=== PATIENT | female | born 1955 | race African-American/Black ===

== ENCOUNTER 2018-08-29 11:06 | Day surgery (SDC) | payer OTHER ==
[2018-08-24 12:45] VITALS: BMI 26.6
[2018-08-29] MEDS ORDERED: LIDOCAINE HCL/PF 2% SDV 5ML VIAL ONE ×2 (13:04→13:35)
[2018-08-29] MEDS ORDERED: fentaNYL CITRATE 250 MCG/5 ML VIAL ONE (13:04)
[2018-08-29] MEDS ORDERED: PROPOFOL 20 ML ONE (13:04)
[2018-08-29] MEDS ORDERED: ROCURONIUM BROMIDE 50 MG/5 ML VIAL ONE (13:05)
[2018-08-29] MEDS ORDERED: MIDAZOLAM HCL 2 MG/2 ML SINGLE DOSE VIAL ONE (13:05)
[2018-08-29] MEDS ORDERED: ePHEDrine SULFATE 50 MG/1 ML AMPULE ONE (14:05)
[2018-08-29] MEDS ORDERED: ONDANSETRON 4 MG/2 ML VIAL ONE (14:11)
[2018-08-29] MEDS ORDERED: oxyCODONE HCL 5 MG TABLET PO PRN (14:47)
[2018-08-29] MEDS ORDERED: LACTATED RINGERS SOLUTION 1,000 ML IV SCH (15:00)
[2018-08-29 15:44] VITALS: TEMP 97.5
[2018-08-29 18:32] VITALS: BP 114/67; PULSE 102
--- NOTE | 2018-08-29 21:02 | OP ---
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 POSTOPERATIVE DIAGNOSIS: Chronic wound, left proximal thigh, from a failed previous total hip arthroplasty complicated by recurrent infection, recurrent dislocation, and recurrent heterotopic ossification. OPERATION PERFORMED: Incision and drainage with debridement of soft tissue, bone, as well as insertion of wound VAC. PROCEDURE: The patient was correctly identified, brought in the operating room, placed in the lateral decubitus position, left side up. The wound was sealed and the original wound VAC which had been performed at [facility] repeatedly was now removed. This had not been done for about 2-1/2 to 3 weeks and revealed the presence of significant exudate and foul-smelling material. Cultures were taken for sensitivity. The wound was thoroughly lavaged with 5 L of saline. The tissues were washed with Betadine scrub to get rid of biofilm and a repeat 5 L washout performed. Once this had been performed, a wound VAC was inserted and the wound VAC was sealed appropriately and working well. The patient was extricated out of the operating room. Wound VAC change will be performed in the near term and planned accordingly. Albert Moya MD [id number]
== END 2018-08-29 18:30 | disposition home or self-care (01) ==
LOC: FASU 11:06
PROVIDERS: ATTEND Orthopaedic Surgery Orthopaedic Surgery of the Spine
PROC: 2W0PX6Z Change Pressure Dressing on Left Upper Leg (ICD-10-PCS; principal; 2018-08-29 14:00)
DX: L76.82 Other postprocedural complications of skin and subcutaneous tissue (principal); S71.102A Unspecified open wound, left thigh, initial encounter; Y83.8 Other surgical procedures as the cause of abnormal reaction of the patient, or of later complication, without mention of misadventure at the time of the procedure; Y92.9 Unspecified place or not applicable; Y93.9 Activity, unspecified
CPT/HCPCS: 87070; 87186; 87205; 94760

== ENCOUNTER 2018-09-12 10:20 | Day surgery (SDC) | payer OTHER ==
[2018-09-12 11:15] VITALS: BMI 26.6
[2018-09-12] MEDS ORDERED: MIDAZOLAM HCL 2 MG/2 ML SINGLE DOSE VIAL ONE (13:33)
[2018-09-12] MEDS ORDERED: PROPOFOL 20 ML ONE (13:33)
[2018-09-12] MEDS ORDERED: LIDOCAINE HCL/PF 2% SDV 5ML VIAL ONE (13:33)
[2018-09-12] MEDS ORDERED: ROCURONIUM BROMIDE 50 MG/5 ML VIAL ONE (13:33)
[2018-09-12] MEDS ORDERED: ONDANSETRON 4 MG/2 ML VIAL ONE (13:47)
[2018-09-12] MEDS ORDERED: DEXAMETHASONE SOD PHOSPHATE 4 MG/1 ML VIAL ONE (13:47)
[2018-09-12] MEDS ORDERED: GLYCOPYRROLATE 0.2 MG/1 ML VIAL ONE (14:12)
[2018-09-12] MEDS ORDERED: NEOSTIGMINE METHYLSULFATE 0.5 MG/ML - 10 ML MDV ONE (14:12)
[2018-09-12] MEDS ORDERED: oxyCODONE HCL 5 MG TABLET PO PRN (14:44)
[2018-09-12] MEDS ORDERED: ONDANSETRON 4 MG/2 ML VIAL IVPUSH PRN (14:44)
[2018-09-12] MEDS ORDERED: PROMETHAZINE HCL 25 MG/1 ML VIAL IVPB PRN (14:44)
[2018-09-12] MEDS ORDERED: LACTATED RINGERS SOLUTION 1,000 ML IV SCH (14:45)
[2018-09-12 18:09] VITALS: PULSE 81
[2018-09-12 18:11] VITALS: BP 115/81; TEMP 98
--- NOTE | 2018-10-02 09:18 | OP ---
DATE OF OPERATION: 09/12/2019 SURGEON: Albert Moya MD PREOPERATIVE DIAGNOSIS: Septic left proximal lateral thigh wound with wound VAC in situ. POSTOPERATIVE DIAGNOSIS: Septic left proximal lateral thigh wound with wound VAC in situ. OPERATION PERFORMED: 1. Washout, debridement of soft tissue. 2. Insertion of wound VAC. ANESTHESIA: General. PROCEDURE: Patient correctly identified. Brought in the operating room. Patient was placed in the lateral decubitus position left side up. Intubation by Anesthesia had been performed. The left lower extremity was prepped, after removal of the sticky, adherent dressings and the wound VAC. A left free drape employed. The skin was cleansed with Betadine scrub solution, wiped off with alcohol, DuraPrep applied. The wound was thoroughly lavaged. Cultures were taken for culture and sensitivity. A 5-liter washout was performed. The wounds were thoroughly lavaged with Betadine scrub to cleanse bioform. Once the lavage had been completed and the tissues appeared normal and healthy, a repeat wound VAC was inserted for negative-suction wound VAC management. The wound was sealed with the appropriate stick-on dressings. Patient extricated from the operating room with no problems and the wound VAC working well. MD OSVALDO Oconnor/[id number]
== END 2018-09-12 18:11 | disposition home or self-care (01) ==
LOC: FASU 10:20
PROVIDERS: ATTEND Orthopaedic Surgery Orthopaedic Surgery of the Spine
PROC: 2W1MX6Z Compression of Left Lower Extremity using Pressure Dressing (ICD-10-PCS; principal; 2018-09-12 14:00)
DX: T81.49XA Infection following a procedure, other surgical site, initial encounter (principal); Y83.8 Other surgical procedures as the cause of abnormal reaction of the patient, or of later complication, without mention of misadventure at the time of the procedure; Y92.9 Unspecified place or not applicable
CPT/HCPCS: 87070; 87186; 87205; 94760

== ENCOUNTER 2018-10-05 12:40 | Day surgery (SDC) | payer OTHER ==
[2018-10-04 11:46] VITALS: BMI 27.4
[~2018-10-05 12:40] MED LIST: ceFAZolin SODIUM 1 GM VIAL IVPB ONE
[2018-10-05] MEDS ORDERED: SUCCINYLCHOLINE CHLORIDE 200 MG/10 ML VIAL ONE (14:21)
[2018-10-05] MEDS ORDERED: PROPOFOL 20 ML ONE (14:21)
[2018-10-05] MEDS ORDERED: MIDAZOLAM HCL 2 MG/2 ML SINGLE DOSE VIAL ONE (14:21)
[2018-10-05] MEDS ORDERED: ROCURONIUM BROMIDE 50 MG/5 ML VIAL ONE (14:36)
[2018-10-05] MEDS ORDERED: PHENYLEPHRINE HCL 10 MG/1 ML SINGLE DOSE VIAL ONE (15:12)
[2018-10-05] MEDS ORDERED: diazePAM 5 MG TABLET PO PRN (15:46)
[2018-10-05] MEDS ORDERED: PATIENT'S OWN MEDICATION (NON-FORMULARY) (Oxycodone Hcl [Oxycodone Hcl] 30 MG) PO PRN (15:50)
[2018-10-05] MEDS ORDERED: oxyCODONE HCL 5 MG TABLET PO PRN ×2 (16:51)
[2018-10-05] MEDS ORDERED: ONDANSETRON 4 MG/2 ML VIAL IVPUSH PRN (16:51)
[2018-10-05] MEDS ORDERED: PROMETHAZINE HCL 25 MG/1 ML VIAL IVPUSH PRN (16:51)
[2018-10-05 17:13] VITALS: TEMP 97.4
[2018-10-05 17:21] VITALS: BP 120/80; PULSE 85
[2018-10-05] MEDS ORDERED: DOXYCYCLINE HYCLATE 100 MG CAPSULE PO SCH (18:00)
[2018-10-05] MEDS ORDERED: OXYBUTYNIN CHLORIDE 5 MG TABLET PO SCH (22:00)
[2018-10-05] MEDS ORDERED: DULoxetine HCL 30 MG CAPSULE.DR (FP) PO SCH (22:00)
[2018-10-05] MEDS ORDERED: PREGABALIN 100 MG CAPSULE PO SCH (22:00)
[2018-10-05] MEDS ORDERED: oxyCODONE HCL 80 MG SUSTAINED ACTING TABLET PO SCH (22:00)
--- NOTE | 2018-10-06 07:50 | OP ---
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 OPERATION PERFORMED: Removal of old sponge, incision, drainage, washout of tissues, wound vacuum-assisted closure application. ANESTHESIA: General. OPERATION IN DETAIL: The patient was correctly identified, brought into the operating room left side up in a lateral decubitus position. Left lower extremity was free draped. The skin was cleansed with Betadine scrub solution, wiped with alcohol, DuraPrep applied. The original sponges were all removed. Repeat culture sticks were taken, sent for culture and sensitivity. A 5-L washout was performed of the soft tissue bed. The tissues were then cleansed with Betadine scrub to remove biofilm extensively throughout. A new wound VAC applied. So, the suction device was working well by the time the patient was turned supine and extricated out of the operating room. The appearance of the tissues clearly indicate much more amenable to delayed primary closure, which is hopefully going to occur in the next 1 or 2, possibly 3 operating sessions on this. The aim is to achieve wound closure and allow the wound closure to consolidate and then go ahead with reconstructive surgery appropriately. MD OSVALDO Oconnor/[id number]
[2018-10-06] MEDS ORDERED: PANTOPRAZOLE 40 MG TABLET (FP) PO SCH (10:00)
[2018-10-06] MEDS ORDERED: ASPIRIN 325 MG ENTERIC COATED TABLET (FP) PO SCH (10:00)
[2018-10-06] MEDS ORDERED: FLUCONAZOLE 100 MG TABLET (UD) PO SCH (10:00)
[2018-10-06] MEDS ORDERED: LISINOPRIL 10 MG TABLET (FP) PO SCH (10:00)
== END 2018-10-05 17:21 | disposition home or self-care (01) ==
LOC: FASU 12:40
PROVIDERS: ATTEND Orthopaedic Surgery Orthopaedic Surgery of the Spine
PROC: 2W0MX6Z Change Pressure Dressing on Left Lower Extremity (ICD-10-PCS; principal; 2018-10-05 14:30)
DX: T81.49XD Infection following a procedure, other surgical site, subsequent encounter (principal); Z48.01 Encounter for change or removal of surgical wound dressing; Y83.8 Other surgical procedures as the cause of abnormal reaction of the patient, or of later complication, without mention of misadventure at the time of the procedure; Y92.9 Unspecified place or not applicable; L98.8 Other specified disorders of the skin and subcutaneous tissue
CPT/HCPCS: 87070; 87186; 87205; 94760

== ENCOUNTER 2018-10-08 15:44 | Day surgery (SDC) | payer OTHER | END 2018-10-08 21:59 | disposition home or self-care (01) | LOC: JASU-SURG 15:44 → J8W 21:08 → JASU-SURG 21:59 ==

== ENCOUNTER 2018-10-10 10:55 | Inpatient (IN) | payer OTHER ==
[2018-10-09 15:25] VITALS: BMI 27.4
[2018-10-10] MEDS ORDERED: MIDAZOLAM HCL 2 MG/2 ML SINGLE DOSE VIAL ONE (14:27)
[2018-10-10] MEDS ORDERED: PROPOFOL 20 ML ONE (14:27)
[2018-10-10] MEDS ORDERED: ONDANSETRON 4 MG/2 ML VIAL ONE (14:28)
[2018-10-10] MEDS ORDERED: DEXAMETHASONE SOD PHOSPHATE 4 MG/1 ML VIAL ONE (14:28)
[2018-10-10] MEDS ORDERED: LIDOCAINE HCL/PF 2% SDV 5ML VIAL ONE (14:28)
[2018-10-10] MEDS ORDERED: GENTAMICIN SO4 80 MG/2 ML VIAL ONE (15:47)
[2018-10-10] MEDS ORDERED: KETOROLAC TROMETHAMINE 30 MG/1 ML VIAL ONE (16:04)
--- NOTE | 2018-10-10 16:16 | PN ---
Progress Note (short form) - Note Progress Note: 63F s/p I&D LEFT hip wound POD #0. -Pain control. -DVT PPx: - Mechanical: SOUTH's, SCD's. - Chemical: ASA 325mg POD qD. -Incentive spirometry. -Post-op antibiotics x 24 hrs. -PT/OT/Rehab, OOB. -NWB LLE. -f/u post-op TOV. -Regular diet. -Resume home medications. -Care per primary medical hospitalist team. -OK to discharge home when medically stable. -Contact [facility] office to schedule next LEFT hip I&D: . Albert Moya MD (Orthopaedic Surgery).
[2018-10-10] MEDS ORDERED: BENZOIN/ALOE VERA/STORAX/TOLU 58 ML BOTTLE ONE (16:26)
[2018-10-10] MEDS ORDERED: VANCOMYCIN 1,000 MG VIAL (RESTRICTED TO ID ONLY) ONE (16:26)
[2018-10-10 17:06] LABS: BASO % 0.5 % (0-2.0); EOS % 2.3 % (0-4.5); HEMATOCRIT 23.1 % (32.4-45.2); HEMOGLOBIN 7.2 GM/dl (10.7-15.3); LYMPH % 9.9 % (8-40); MCHC 31.3 g/dl (32.0-36.0); MEAN CELL VOLUME 70.4 fl (80-96); MEAN PLT VOLUME 7.6 fl (7.5-11.1); MONO % 1.7 % (3.8-10.2); NEUT % 85.6 % (42.8-82.8); PLATELET COUNT 309 K/MM3 (134-434); RBC 3.28 M/mm3 (3.60-5.2); RDW 17.2 % (11.6-15.6)
[2018-10-10] MEDS ORDERED: ONDANSETRON 4 MG/2 ML VIAL IVPUSH PRN ×2 (17:21→17:24)
[2018-10-10] MEDS ORDERED: MAGNESIUM HYDROX 2400MG/30ML ORAL SUSPENSION 30 ML CUP PO PRN (17:24)
[2018-10-10] MEDS ORDERED: MAG HYDROX/AL HYDROX/SIMETH 30 ML UNIT-DOSE CUP PO PRN (17:24)
--- NOTE | 2018-10-10 17:24 | OP ---
Operative Note - Note: Operative Date: 10/10/18 Pre-Operative Diagnosis: Chronic left hip wound Operation: Left hip wound: 1. I&D. 2. Excision proliferation fibrous tissue. 3. Excision heterotopic ossification. 4. Complex wound closure (>30cm) Post-Operative Diagnosis: Same as Pre-op Surgeon: Albert Moya Anesthesiologist/BEHAVIORAL SPECIALIST: Ethan Rollins Estimated Blood Loss (mls): 150 Drains & Tubes with Location: 1 x deep Duc Fluid Volume Replaced (mls): 500 (Crystalloid) Operative Report Dictated: Yes
[2018-10-10] MEDS ORDERED: LACTATED RINGERS SOLUTION 1,000 ML IV SCH (17:30)
[2018-10-10] MEDS ORDERED: diazePAM 5 MG TABLET PO PRN (19:58)
[2018-10-10] MEDS: LISINOPRIL 10 MG TABLET (FP) PO SCH (20:06)
[2018-10-10] MEDS: DOXYCYCLINE HYCLATE 100 MG CAPSULE PO SCH (20:40)
[2018-10-10] MEDS: PANTOPRAZOLE 40 MG TABLET (FP) PO SCH (20:40)
[2018-10-10] MEDS: FLUCONAZOLE 100 MG TABLET (UD) PO SCH (20:41)
[2018-10-10] MEDS: DULoxetine HCL 30 MG CAPSULE.DR (FP) PO SCH (22:12)
[2018-10-10] MEDS: SENNOSIDES/DOCUSATE COMBO (SENNA PLUS) TABLET (UD) PO SCH (22:12)
[2018-10-10] MEDS: ASPIRIN 81 MG CHEWABLE TABLETS PO SCH (22:12)
[2018-10-10] MEDS: PREGABALIN 50 MG CAPSULE PO SCH (22:12)
[2018-10-10] MEDS: oxyCODONE HCL 40 MG SUSTAINED ACTING TABLET PO SCH (22:13)
[2018-10-10] MEDS: CEFAZOLIN 1 GM/D5W 1 GM/50 ML BAG IVPB SCH (23:20)
[2018-10-10] MEDS: LACTATED RINGERS SOLUTION 1,000 ML IV SCH (23:35)
[2018-10-10] MEDS: oxyCODONE HCL 5 MG TABLET PO PRN (23:35)
[2018-10-10 23:48] LABS: ADD RBC MORPHOLOGY YES; PLATELET ESTIMATE ADEQUATE
[2018-10-10 23:49] LABS: ANISOCYTOSIS 1+; OVALOCYTE 1+
[2018-10-11] MEDS: PREGABALIN 50 MG CAPSULE PO SCH ×3 (06:18→22:12)
[2018-10-11] MEDS: oxyCODONE HCL 40 MG SUSTAINED ACTING TABLET PO SCH ×3 (06:18→22:11)
[2018-10-11] MEDS: oxyCODONE HCL 5 MG TABLET PO PRN ×3 (06:23→22:22)
[2018-10-11] MEDS: CEFAZOLIN 1 GM/D5W 1 GM/50 ML BAG IVPB SCH (06:30)
--- NOTE | 2018-10-11 06:43 | OP ---
DATE OF OPERATION: 10/10/2018 SURGEON: Albert Moya MD [employer] SUPERVISOR: No orthodontist assistant. PREOPERATIVE DIAGNOSIS: Chronic septic wound with heterotopic ossification with wound vacuum-assisted closure in situ. POSTOPERATIVE DIAGNOSIS: Chronic septic wound with heterotopic ossification with wound vacuum-assisted closure in situ. OPERATION PERFORMED: 1. Extensive debridement of soft tissue, skin, and bone. 2. Resection of heterotopic ossification. 3. Extensive irrigation of soft tissues. 4. Complex wound closure with deep sutures and Lautenbach sutures, suturing PDS No. 1. ANESTHESIA: General. ANTIBIOTICS GIVEN: Kefzol 1 g, gentamicin 80 mg, and vancomycin 1 g placed in the wound. OPERATION IN DETAIL: The patient was correctly identified, brought into the operating room. The left proximal lateral thigh was cleansed with Betadine scrub solution, wiped with alcohol, and DuraPrep applied. The patient was placed in a lateral decubitus position. All prominent bony points were padded appropriately. A pillow was placed between the knees. The wound VAC was removed. The tissues were extensively irrigated with 5 L of saline and washed at the same time with Betadine scrub to rid the tissues and remaining endoprosthetic intramedullary device to remove all biofilm. Once this had been performed, the tissues appeared to be amenable to closure, that is a delayed primary closure. However, the villonodular nature of the growth of tissues necessitated extensive debridement of this tissue. Each nodular lesion was resected using Bovie to apply cautery and stop all bleeding. Extensive debridement with soft tissue was performed throughout. Multiple areas of heterotopic ossification were dissected out and all the tissues were sent to the lab for culture and sensitivity. A repeat intensive debridement of soft tissue, bone, and the skin edges were then resected extensively right down to the deep components of the wound to facilitate the biological healing of the delayed primary closure. Once the washouts had been all completed, deep sutures were applied. This was then followed with a Lautenbach suture, which encompasses skin, subcutaneous tissue, fascia, and muscle in 4 layers, and thereafter also interrupted No. 1 vertical mattress 2-0 nylon suture was utilized. This very complex wound we were able to close with a good primary closure. The Lautenbach sutures brought the tissues deep all together. A large 19-[place] Duc drain was inserted for drainage. A light dressing applied. Thereafter, patient tolerated the procedure well. Prior to the closure, a full gram of vancomycin was placed into the tissue bed extensively throughout. Plan for hip abduction brace and thereafter to follow with time to allow this wound to heal completely. Once healed, the plan will be to bolt onto the endoprosthetic intramedullary retained device, which this itself is preventing any intramedullary contamination with E. coli. This will enable to see the new endoprosthesis with a new-seated cup in the ileum appropriately. No other orders at this point. MD OSVALDO Oconnor/[id number] MTDD
[2018-10-11 07:54] LABS: HEMATOCRIT 28.2 % (32.4-45.2); HEMOGLOBIN 8.8 GM/dl (10.7-15.3); MCH 23.9 pg (25.7-33.7); MCHC 31.3 g/dl (32.0-36.0); MEAN CELL VOLUME 76.5 fl (80-96); MEAN PLT VOLUME 7.5 fl (7.5-11.1); PLATELET COUNT 286 K/MM3 (134-434); RBC 3.68 M/mm3 (3.60-5.2); RDW 19.5 % (11.6-15.6)
[2018-10-11 08:23] LABS: ANION GAP 6 MMOL/L (8-16); BLOOD UREA NITROGEN 19 mg/dl (7-18); CALCIUM 7.6 mg/dl (8.5-10); CHLORIDE 108 mmol/L (98-107); CO2 24 mmol/L (21-32); CREATININE 0.9 mg/dl (0.55-1.3); GLUCOSE,RANDOM 120 mg/dl (74-106); POTASSIUM 4.3 mmol/L (3.5-5.1); SODIUM 138 mmol/L (136-145)
[2018-10-11] MEDS ORDERED: PANTOPRAZOLE 40 MG TABLET (FP) PO SCH (10:00)
[2018-10-11] MEDS: DULoxetine HCL 30 MG CAPSULE.DR (FP) PO SCH ×2 (10:23→22:13)
[2018-10-11] MEDS: LISINOPRIL 10 MG TABLET (FP) PO SCH (10:24)
[2018-10-11] MEDS: FLUCONAZOLE 100 MG TABLET (UD) PO SCH (10:24)
[2018-10-11] MEDS: DOXYCYCLINE HYCLATE 100 MG CAPSULE PO SCH ×2 (10:24→17:35)
[2018-10-11] MEDS: PANTOPRAZOLE 40 MG TABLET (FP) PO SCH (10:25)
[2018-10-11] MEDS: SENNOSIDES/DOCUSATE COMBO (SENNA PLUS) TABLET (UD) PO SCH ×2 (10:25→22:13)
[2018-10-11] MEDS: ASPIRIN 81 MG CHEWABLE TABLETS PO SCH ×2 (10:25→22:13)
--- NOTE | 2018-10-11 11:25 | CONSULT ---
Consultation: REQUESTING PROVIDER: Dr. Moya CONSULT REQUEST: We have been asked to medically evaluate this patient for Ortho. HISTORY OF PRESENT ILLNESS: This is a 63 year old female with a pmhx significant for HTN, anxiety,depression , chronic pain and chronic left hip left wound, s/p I&D by ortho Dr. Moya, medicine consulted for medical management. REVIEW OF SYSTEMS: CONSTITUTIONAL: Absent: fever, chills, diaphoresis, generalized weakness, malaise, loss of appetite, weight change HEENT: Absent: rhinorrhea, nasal congestion, throat pain, throat swelling, difficulty swallowing, mouth swelling, ear pain, eye pain, visual changes CARDIOVASCULAR: Absent: chest pain, syncope, palpitations, irregular heart rate, lightheadedness , peripheral edema RESPIRATORY: Absent: cough, shortness of breath, dyspnea with exertion, orthopnea, wheezing, stridor, hemoptysis GASTROINTESTINAL: Absent: abdominal pain, abdominal distension, nausea, vomiting, diarrhea, constipation, melena, hematochezia GENITOURINARY: Absent: dysuria, frequency, urgency, hesitancy, hematuria, flank pain, genital pain MUSCULOSKELETAL: Chronic generalized pain SKIN: Absent: rash, itching, pallor HEMATOLOGIC/IMMUNOLOGIC: Absent: easy bleeding, easy bruising, lymphadenopathy, frequent infections ENDOCRINE: Absent: unexplained weight gain, unexplained weight loss, heat intolerance, cold intolerance NEUROLOGIC: Absent: headache, focal weakness or paresthesias, dizziness, unsteady gait, seizure, mental status changes, bladder or bowel incontinence PSYCHIATRIC: Absent: anxiety, depression, suicidal or homicidal ideation, hallucinations. PHYSICAL EXAMINATION Vital Signs - 24 hr 10/10/18 10/10/18 10/10/18 12:09 17:24 17:25 Temperature 98.2 F 97.4 F L Pulse Rate 100 H 83 84 Respiratory 18 8 L 11 Rate Blood Pressure 108/89 115/64 111/58 L O2 Sat by Pulse 94 L 100 100 Oximetry (%) 10/10/18 10/10/18 10/10/18 17:30 17:35 17:50 Temperature Pulse Rate 82 82 80 Respiratory 9 L 14 10 Rate Blood Pressure 112/61 107/64 110/57 L O2 Sat by Pulse 100 100 100 Oximetry (%) 10/10/18 10/10/18 10/10/18 18:05 18:20 18:30 Temperature 97.5 F L Pulse Rate 81 78 81 Respiratory 10 15 14 Rate Blood Pressure 105/58 L 123/79 100/54 L O2 Sat by Pulse 99 Oximetry (%) 10/10/18 10/10/18 10/10/18 18:50 21:24 21:58 Temperature 97.8 F 97.8 F Pulse Rate 77 78 Respiratory 14 20 Rate Blood Pressure 109/65 107/51 L O2 Sat by Pulse 98 98 Oximetry (%) 10/10/18 10/11/18 10/11/18 22:00 06:00 06:29 Temperature 97.7 F 98.7 F Pulse Rate 75 86 Respiratory 18 19 Rate Blood Pressure 144/75 118/67 O2 Sat by Pulse 99 98 Oximetry (%) 10/11/18 10/11/18 09:00 10:00 Temperature 98.8 F Pulse Rate 98 H Respiratory 19 Rate Blood Pressure 151/72 O2 Sat by Pulse 98 99 Oximetry (%) GENERAL: Awake, alert, and fully oriented, in no acute distress. HEAD: Normal with no signs of trauma. EYES: Pupils equal, round and reactive to light, extraocular movements intact, sclera anicteric, conjunctiva clear. No lid lag. EARS, NOSE, THROAT: Ears normal, nares patent, oropharynx clear without exudates. Moist mucous membranes. NECK: Normal range of motion, supple without lymphadenopathy, JVD, or masses. LUNGS: Breath sounds equal, clear to auscultation bilaterally. No wheezes, and no crackles. No accessory muscle use. HEART: Regular rate and rhythm, normal S1 and S2 without murmur, rub or gallop. ABDOMEN: Soft, nontender, not distended, normoactive bowel sounds, no guarding, no rebound, no masses. No hepatomegaly or splenomegaly. MUSCULOSKELETAL: s/p I&D of left hip wound,+ edema,wound dsg and drain in place. UPPER EXTREMITIES: 2+ pulses, warm, well-perfused. No cyanosis. No clubbing. Cap refill <2 seconds. No peripheral edema. LOWER EXTREMITIES: 2+ pulses, warm, well-perfused. No calf tenderness. No peripheral edema. NEUROLOGICAL: Cranial nerves II-XII intact. Normal speech. Normal gait. PSYCHIATRIC: Cooperative. Good eye contact. Appropriate mood and affect. SKIN: Warm, dry, normal turgor, no rashes or lesions noted. Laboratory Results - last 24 hr 10/10/18 10/10/18 10/10/18 16:42 16:42 16:42 WBC 9.0 RBC 3.28 L Hgb 7.2 L Hct 23.1 L MCV 70.4 L MCH 22.0 L MCHC 31.3 L RDW 17.2 H Plt Count 309 MPV 7.6 Absolute Neuts (auto) 7.7 Neutrophils % 85.6 H Lymphocytes % 9.9 Monocytes % 1.7 L Eosinophils % 2.3 Basophils % 0.5 Platelet Estimate Adequate Poikilocytosis 1+ Anisocytosis 1+ Microcytosis 1+ Ovalocytes 1+ Sodium Potassium Chloride Carbon Dioxide Anion Gap BUN Creatinine Creat Clearance w eGFR Random Glucose Calcium Blood Type A POSITIVE A POSITIVE Antibody Screen Negative Crossmatch See Detail 10/11/18 10/11/18 07:25 07:25 WBC 11.0 H RBC 3.68 Hgb 8.8 L Hct 28.2 L D MCV 76.5 L MCH 23.9 L MCHC 31.3 L RDW 19.5 H D Plt Count 286 MPV 7.5 Absolute Neuts (auto) Neutrophils % Lymphocytes % Monocytes % Eosinophils % Basophils % Platelet Estimate Poikilocytosis Anisocytosis Microcytosis Ovalocytes Sodium 138 Potassium 4.3 Chloride 108 H Carbon Dioxide 24 Anion Gap 6 L BUN 19 H Creatinine 0.9 Creat Clearance w eGFR > 60 Random Glucose 120 H Calcium 7.6 L Blood Type Antibody Screen Crossmatch Active Medications Generic Name Dose Route Start Last Admin Trade Name Freq PRN Reason Stop Dose Admin Al Hydroxide/Mg Hydroxide 30 ml 10/10/18 17:24 Mylanta Oral Suspension - PO Q4H PRN DYSPEPSIA Aspirin 81 mg 10/10/18 22:00 10/11/18 10:25 Asa - PO 81 mg BID ELKE Administration Diazepam 5 mg 10/10/18 19:58 10/11/18 01:06 Valium - PO 5 mg HS PRN Administration ANXIETY Doxycycline Hyclate 100 mg 10/10/18 20:00 10/11/18 10:24 Vibramycin - PO 100 mg BID@1000,1800 ELKE Administration Duloxetine HCl 30 mg 10/10/18 22:00 10/11/18 10:23 Cymbalta - PO 30 mg BID ELKE Administration Fluconazole 200 mg 10/10/18 20:15 10/11/18 10:24 Diflucan - PO 200 mg DAILY ELKE Administration Lactated Ringer's 1,000 mls @ 125 mls/hr 10/10/18 17:30 10/10/18 23:35 Lactated Ringers Solution IV Not Given ASDIR ELKE Lisinopril 10 mg 10/10/18 20:15 10/11/18 10:24 Prinivil PO 10 mg DAILY ELKE Administration Magnesium Hydroxide 30 ml 10/10/18 17:24 Milk Of Magnesia - PO PRN PRN CONSTIPATION Ondansetron HCl 4 mg 10/10/18 17:24 Zofran Injection IVPUSH Q6H PRN NAUSEA Oxycodone HCl 30 mg 10/10/18 20:02 10/11/18 06:23 Roxicodone - PO 30 mg Q6H PRN Administration PAIN LEVEL 4 - 6 Oxycodone HCl 80 mg 10/10/18 22:00 10/11/18 06:18 Oxycontin - PO 80 mg TID ELKE Administration Pantoprazole Sodium 40 mg 10/10/18 20:15 10/11/18 10:25 Protonix - PO 40 mg DAILY ELKE Administration Pregabalin 100 mg 10/10/18 22:00 10/11/18 06:18 Lyrica - PO 100 mg TID ELKE Administration Senna/Docusate Sodium 1 tablet 10/10/18 22:00 10/11/18 10:25 Pericolace - PO 1 tablet BID ELKE Administration ASSESSMENT/PLAN: This is a 63 year old female with a pmhx significant for HTN, anxiety,depression , chronic pain and chronic left hip left wound, * Chronic left hip wound - s/p I& D , POD #1 - management per sx - pain control - encouraged to use Incentive spirometery - PT eval -NWB LLE. on abx * Acute blood loss anemia due to sx - ordered 3 units of blood by ortho - receiving the 3rd unit now - will f/u on CBC - remains clinically stable * HTN - will cont on Lisinopril * Depression - will cont on home meds * VTE - ASA 81mg BID * GI prophylaxis Protonix Dispo: We will continue to follow the patient. Thank you for this consultative opportunity. Visit type - Emergency Visit Emergency Visit: No - New Patient This patient is new to me today: Yes Date on this admission: 10/11/18 - Critical Care Critical Care patient: No
--- NOTE | 2018-10-11 12:10 | PN ---
Progress Note, Physician Chief Complaint: s/p I&D of left hip wound. under general anesthesia History of Present Illness: post op day one. - Current Medication List Current Medications: Active Medications Al Hydroxide/Mg Hydroxide (Mylanta Oral Suspension -) 30 ml PO Q4H PRN PRN Reason: DYSPEPSIA Aspirin (Asa -) 81 mg PO BID [facility] Last Admin: 10/11/18 10:25 Dose: 81 mg Diazepam (Valium -) 5 mg PO HS PRN PRN Reason: ANXIETY Last Admin: 10/11/18 01:06 Dose: 5 mg Doxycycline Hyclate (Vibramycin -) 100 mg PO BID@1000,1800 [facility] Last Admin: 10/11/18 10:24 Dose: 100 mg Duloxetine HCl (Cymbalta -) 30 mg PO BID [facility] Last Admin: 10/11/18 10:23 Dose: 30 mg Fluconazole (Diflucan -) 200 mg PO DAILY [facility] Last Admin: 10/11/18 10:24 Dose: 200 mg Lactated Ringer's (Lactated Ringers Solution) 1,000 mls @ 125 mls/hr IV ASDIR [facility] Last Admin: 10/10/18 23:35 Dose: Not Given Lisinopril (Prinivil) 10 mg PO DAILY [facility] Last Admin: 10/11/18 10:24 Dose: 10 mg Magnesium Hydroxide (Milk Of Magnesia -) 30 ml PO PRN PRN PRN Reason: CONSTIPATION Ondansetron HCl (Zofran Injection) 4 mg IVPUSH Q6H PRN PRN Reason: NAUSEA Oxycodone HCl (Roxicodone -) 30 mg PO Q6H PRN PRN Reason: PAIN LEVEL 4 - 6 Last Admin: 10/11/18 11:43 Dose: 30 mg Oxycodone HCl (Oxycontin -) 80 mg PO TID [facility] Last Admin: 10/11/18 06:18 Dose: 80 mg Pantoprazole Sodium (Protonix -) 40 mg PO DAILY [facility] Last Admin: 10/11/18 10:25 Dose: 40 mg Pregabalin (Lyrica -) 100 mg PO TID [facility] Last Admin: 10/11/18 06:18 Dose: 100 mg Senna/Docusate Sodium (Pericolace -) 1 tablet PO BID [facility] Last Admin: 10/11/18 10:25 Dose: 1 tablet - Objective Vital Signs: Vital Signs Temperature 98.8 F 10/11/18 10:00 Pulse Rate 98 H 10/11/18 10:00 Respiratory Rate 19 10/11/18 10:00 Blood Pressure 151/72 10/11/18 10:00 O2 Sat by Pulse Oximetry (%) 99 10/11/18 10:00 Constitutional: Yes: Well Nourished Cardiovascular: Yes: WNL Respiratory: Yes: WNL Gastrointestinal: Yes: WNL Labs: CBC, BMP 10/11/18 07:25 10/11/18 07:25 Assessment/Plan Patient complaining of pain, is on the proper pain regimen, no nausea or vomiting. pain likely at baseline.
[2018-10-11 17:10] LABS: HEMATOCRIT 31.8 % (32.4-45.2); HEMOGLOBIN 10.1 GM/dl (10.7-15.3); MCH 24.7 pg (25.7-33.7); MCHC 31.7 g/dl (32.0-36.0); MEAN CELL VOLUME 77.8 fl (80-96); MEAN PLT VOLUME 7.6 fl (7.5-11.1); PLATELET COUNT 265 K/MM3 (134-434); RBC 4.09 M/mm3 (3.60-5.2); RDW 19.3 % (11.6-15.6); WHITE BLOOD COUNT 14.9 K/mm3 (4.0-10.8)
[2018-10-11] MEDS: LACTATED RINGERS SOLUTION 1,000 ML IV SCH (17:34)
[2018-10-11 21:21] LABS: PLATELET ESTIMATE ADEQUATE
[2018-10-11] MEDS: OXYBUTYNIN CHLORIDE 5 MG TABLET PO SCH (22:13)
[2018-10-12] MEDS: oxyCODONE HCL 40 MG SUSTAINED ACTING TABLET PO SCH ×2 (06:36→14:15)
[2018-10-12] MEDS: PREGABALIN 50 MG CAPSULE PO SCH ×3 (06:36→21:27)
[2018-10-12] MEDS: OXYBUTYNIN CHLORIDE 5 MG TABLET PO SCH ×3 (06:36→21:27)
[2018-10-12] MEDS: oxyCODONE HCL 5 MG TABLET PO PRN ×2 (07:30→18:30)
[2018-10-12 08:13] LABS: BASO % 0.4 % (0-2.0); HEMATOCRIT 29.3 % (32.4-45.2); HEMOGLOBIN 9.2 GM/dl (10.7-15.3); LYMPH % 15.6 % (8-40); MCH 24.7 pg (25.7-33.7); MCHC 31.5 g/dl (32.0-36.0); MEAN CELL VOLUME 78.3 fl (80-96); MEAN PLT VOLUME 7.9 fl (7.5-11.1); MONO % 8.2 % (3.8-10.2); NEUT % 74.8 % (42.8-82.8); PLATELET COUNT 241 K/MM3 (134-434); RBC 3.74 M/mm3 (3.60-5.2); RDW 19.6 % (11.6-15.6); WHITE BLOOD COUNT 9.4 K/mm3 (4.0-10.8)
[2018-10-12 08:26] LABS: ANION GAP 5 MMOL/L (8-16); BLOOD UREA NITROGEN 25 mg/dl (7-18); CALCIUM 7.9 mg/dl (8.5-10); CHLORIDE 110 mmol/L (98-107); CO2 26 mmol/L (21-32); CREATININE 0.9 mg/dl (0.55-1.3); GLUCOSE,RANDOM 96 mg/dl (74-106); POTASSIUM 3.9 mmol/L (3.5-5.1); SODIUM 141 mmol/L (136-145)
[2018-10-12] MEDS: DULoxetine HCL 30 MG CAPSULE.DR (FP) PO SCH ×2 (09:05→21:27)
[2018-10-12] MEDS: ASPIRIN 81 MG CHEWABLE TABLETS PO SCH ×2 (09:05→21:28)
[2018-10-12] MEDS: PANTOPRAZOLE 40 MG TABLET (FP) PO SCH (09:06)
[2018-10-12] MEDS: FLUCONAZOLE 100 MG TABLET (UD) PO SCH (09:06)
[2018-10-12] MEDS: LISINOPRIL 10 MG TABLET (FP) PO SCH (09:06)
[2018-10-12] MEDS: DOXYCYCLINE HYCLATE 100 MG CAPSULE PO SCH ×2 (09:06→18:03)
[2018-10-12] MEDS: SENNOSIDES/DOCUSATE COMBO (SENNA PLUS) TABLET (UD) PO SCH ×2 (09:06→21:28)
--- NOTE | 2018-10-12 10:50 | PN ---
Physical Exam: SUBJECTIVE: Patient seen and examined, sitting at the edge of the bed,no complains offered today. OBJECTIVE: Vital Signs Period Temp Pulse Resp BP Sys/Vargas Pulse Ox Last 24 Hr 97.6 F-98.7 F 82-89 17-18 115-130/62-70 97-100 GENERAL: The patient is awake, alert, and fully oriented, in no acute distress. HEAD: Normal with no signs of trauma. EYES: PERRL, extraocular movements intact, sclera anicteric, conjunctiva clear. No ptosis. ENT: Ears normal, nares patent, oropharynx clear without exudates, moist mucous membranes. NECK: Trachea midline, full range of motion, supple. LUNGS: Breath sounds equal, clear to auscultation bilaterally, no wheezes, no crackles, no accessory muscle use. HEART: Regular rate and rhythm, S1, S2 without murmur, rub or gallop. ABDOMEN: Soft, nontender, nondistended, normoactive bowel sounds, no guarding, no rebound, no hepatosplenomegaly, no masses. EXTREMITIES: 2+ pulses, warm, well-perfused, s/p L&D of left hip wound, still with bleeding dsg changed, drain place NEUROLOGICAL: Cranial nerves II through XII grossly intact. Normal speech, gait not observed. PSYCH: Normal mood, normal affect. SKIN: Warm, dry, normal turgor, no rashes or lesions noted Laboratory Results - last 24 hr 10/11/18 10/12/18 10/12/18 17:00 07:46 07:46 WBC 14.9 H 9.4 RBC 4.09 3.74 Hgb 10.1 L 9.2 L Hct 31.8 L 29.3 L MCV 77.8 L 78.3 L MCH 24.7 L 24.7 L MCHC 31.7 L 31.5 L RDW 19.3 H 19.6 H Plt Count 265 241 MPV 7.6 7.9 Absolute Neuts (auto) 12.2 7.0 Neutrophils % No Result Required. 74.8 Neutrophils % (Manual) 85.0 H Lymphocytes % No Result Required. 15.6 Lymphocytes % (Manual) 11.0 Monocytes % 8.2 Monocytes % (Manual) 4 Eosinophils % 1.0 Basophils % 0.4 Platelet Estimate Adequate Sodium 141 Potassium 3.9 Chloride 110 H Carbon Dioxide 26 Anion Gap 5 L BUN 25 H Creatinine 0.9 Creat Clearance w eGFR > 60 Random Glucose 96 Calcium 7.9 L Active Medications Generic Name Dose Route Start Last Admin Trade Name Freq PRN Reason Stop Dose Admin Al Hydroxide/Mg Hydroxide 30 ml 10/10/18 17:24 Mylanta Oral Suspension - PO Q4H PRN DYSPEPSIA Aspirin 81 mg 10/10/18 22:00 10/12/18 09:05 Asa - PO 81 mg BID ELKE Administration Diazepam 5 mg 10/10/18 19:58 10/11/18 01:06 Valium - PO 5 mg HS PRN Administration ANXIETY Doxycycline Hyclate 100 mg 10/10/18 20:00 10/12/18 09:06 Vibramycin - PO 100 mg BID@1000,1800 ELKE Administration Duloxetine HCl 30 mg 10/10/18 22:00 10/12/18 09:05 Cymbalta - PO 30 mg BID ELKE Administration Fluconazole 200 mg 10/10/18 20:15 10/12/18 09:06 Diflucan - PO 200 mg DAILY [facility] Administration Lactated Ringer's 1,000 mls @ 125 mls/hr 10/10/18 17:30 10/11/18 17:34 Lactated Ringers Solution IV Not Given ASDIR ELKE Lisinopril 10 mg 10/10/18 20:15 10/12/18 09:06 Prinivil PO 10 mg DAILY [facility] Administration Magnesium Hydroxide 30 ml 10/10/18 17:24 Milk Of Magnesia - PO PRN PRN CONSTIPATION Ondansetron HCl 4 mg 10/10/18 17:24 Zofran Injection IVPUSH Q6H PRN NAUSEA Oxybutynin Chloride 5 mg 10/11/18 22:00 10/12/18 06:36 Ditropan - PO 5 mg TID [facility] Administration Oxycodone HCl 30 mg 10/10/18 20:02 10/12/18 07:30 Roxicodone - PO 30 mg Q6H PRN Administration PAIN LEVEL 4 - 6 Oxycodone HCl 80 mg 10/10/18 22:00 10/12/18 06:36 Oxycontin - PO 80 mg TID [facility] Administration Pantoprazole Sodium 40 mg 10/10/18 20:15 10/12/18 09:06 Protonix - PO 40 mg DAILY [facility] Administration Pregabalin 100 mg 10/10/18 22:00 10/12/18 06:36 Lyrica - PO 100 mg TID ELKE Administration Senna/Docusate Sodium 1 tablet 10/10/18 22:00 10/12/18 09:06 Pericolace - PO 1 tablet BID ELKE Administration ASSESSMENT/PLAN: This is a 63 year old female with a pmhx significant for HTN, anxiety,depression , chronic pain and chronic left hip left wound, * Chronic left hip wound - s/p I& D , POD #2 - management per sx , Dr. Moya to follow today - pain control - encouraged to use Incentive spirometery - PT eval pending -NWB LLE. on abx * Acute blood loss anemia due to sx - s/p 3 units of blood - still with bleeding -Rpt CBC 07/18.8>9.2/29.3- - will f/u on CBC - remains clinically stable * HTN- BP stable - will cont on Lisinopril * Depression - will cont on home meds * VTE - ASA 81mg BID * GI prophylaxis Protonix Dispo: We will continue to follow the patient. Thank you for this consultative opportunity. Visit type - Emergency Visit Emergency Visit: No - New Patient This patient is new to me today: No - Critical Care Critical Care patient: No
--- NOTE | 2018-10-12 13:30 | PN ---
Progress Note (short form) - Note Progress Note: 63F s/p I&D LEFT hip wound POD #1. Pain well controlled. No acute events overnight. Pt. denies overnight history of chest pain, shortness of breath, nausea, vomiting, chills and sweats. (+) Voiding, (+) Flatus, (-) BM. All labs and vitals reviewed. PE: AAO x 3, NAD. L Hip: Dressing w/(+) serosanguinous drainage. No active drainage. NVI distally. 63F s/p I&D LEFT hip wound POD #1. -Pain control. -DVT PPx: - Mechanical: SOUTH's, SCD's. - Chemical: ASA 325mg PO qD. -Incentive spirometry. -PT/OT/Rehab, OOB. -NWB LLE. -f/u post-op TOV. -Regular diet. -Resume home medications. -Care per primary medical hospitalist team. -OK to discharge home when medically stable. -Contact [facility] office to schedule next LEFT hip I&D: [phone]. Albert Moya MD (Orthopaedic Surgery).
--- NOTE | 2018-10-12 14:56 | PN ---
Progress Note (short form) - Note Progress Note: POD#2 Pt without complaints this am. Her dressing was changed last pm by Dr. Moya because of bleeding. Vital Signs Period Temp Pulse Resp BP Sys/Vargas Pulse Ox Last 24 Hr 97.9 F-98.7 F 82-96 16-18 115-127/63-72 97-100 FIDELINA: 160ml serosangrenous GEN: A&0x3 Left Hip: no evidence of acute bleeding, Suture line intact with interrupted nylon sutures. FIDELINA serosangrenous-160ml CBC, BMP 10/12/18 07:46 10/12/ 07:46 A/P: 63 yo female s/p Left hip wound I&D, POD#2 Dry dressing with pressure applied, kerlix/gauze and anmol wrap Trend CBC, sp 3 units PRBC D/w Dr. Moya
[2018-10-12 16:25] LABS: BASO % 0.6 % (0-2.0); EOS % 2.1 % (0-4.5); HEMATOCRIT 32.5 % (32.4-45.2); HEMOGLOBIN 10.1 GM/dl (10.7-15.3); MCH 24.2 pg (25.7-33.7); MEAN CELL VOLUME 78.1 fl (80-96); MEAN PLT VOLUME 8.1 fl (7.5-11.1); MONO % 6.7 % (3.8-10.2); NEUT % 77.6 % (42.8-82.8); PLATELET COUNT 333 K/MM3 (134-434); RBC 4.16 M/mm3 (3.60-5.2); RDW 19.2 % (11.6-15.6); WHITE BLOOD COUNT 13.8 K/mm3 (4.0-10.8)
--- NOTE | 2018-10-12 17:10 | PATH ---
Surgical Pathology Report Patient Name: CONNOR SON [facility]. Rec. #: [id number] /Age/Gender: 1955 (Age: 63) / F Account: <[id number]> Location: [facility] Taken: 10/10/2018 Received: 10/10/2018 Reported: 10/12/2018 Physicians: Albert Moya M.D. Specimen(s) Received DEBRIDED TISSUE LEFT HIP Clinical History Chronic infected wound of left hip Final Diagnosis TISSUE, LEFT HIP, DEBRIDEMENT: SKIN AND FIBROCOLLAGENOUS TISSUE SHOWING GRANULATION TISSUE FORMATION, HISTIOCYTIC AND FOREIGN BODY GIANT REACTION AND DENSE FIBROSIS. Electronically Signed Crystal Beth M.D. Gross Description Received in formalin labeled "debrided tissue left hip," is a 16.5 x 15.0 x 3.5 cm aggregate of quarles-torre, necrotic portions of skin and soft tissue. [employer] Service Technician sections are submitted in one cassette. /10/11/2018 saudi10/11/2018
[2018-10-13] MEDS: oxyCODONE HCL 40 MG SUSTAINED ACTING TABLET PO SCH ×4 (02:21→21:40)
[2018-10-13] MEDS: OXYBUTYNIN CHLORIDE 5 MG TABLET PO SCH ×3 (06:36→21:42)
[2018-10-13] MEDS: PREGABALIN 50 MG CAPSULE PO SCH ×3 (06:36→21:40)
[2018-10-13 08:51] LABS: BASO % 0.2 % (0-2.0); EOS % 1.2 % (0-4.5); HEMATOCRIT 26.2 % (32.4-45.2); HEMOGLOBIN 8.4 GM/dl (10.7-15.3); LYMPH % 11.2 % (8-40); MCH 24.6 pg (25.7-33.7); MCHC 31.9 g/dl (32.0-36.0); MEAN CELL VOLUME 77.2 fl (80-96); MEAN PLT VOLUME 7.9 fl (7.5-11.1); MONO % 8.1 % (3.8-10.2); NEUT % 79.3 % (42.8-82.8); PLATELET COUNT 231 K/MM3 (134-434); RDW 19.9 % (11.6-15.6); WHITE BLOOD COUNT 10.8 K/mm3 (4.0-10.8)
[2018-10-13] MEDS: ASPIRIN 81 MG CHEWABLE TABLETS PO SCH ×2 (09:26→21:40)
[2018-10-13] MEDS: DULoxetine HCL 30 MG CAPSULE.DR (FP) PO SCH ×2 (09:26→21:40)
[2018-10-13] MEDS: FLUCONAZOLE 100 MG TABLET (UD) PO SCH (09:26)
[2018-10-13] MEDS: PANTOPRAZOLE 40 MG TABLET (FP) PO SCH (09:27)
[2018-10-13] MEDS: SENNOSIDES/DOCUSATE COMBO (SENNA PLUS) TABLET (UD) PO SCH ×2 (09:27→21:40)
[2018-10-13] MEDS: LISINOPRIL 10 MG TABLET (FP) PO SCH (09:27)
[2018-10-13] MEDS: DOXYCYCLINE HYCLATE 100 MG CAPSULE PO SCH ×2 (09:27→18:20)
--- NOTE | 2018-10-13 10:09 | PN ---
Physical Exam: SUBJECTIVE: Patient seen and examined at bedside with RN Aylin Perez and Dr. Moya. Changed dressing. OBJECTIVE: Vital Signs Period Temp Pulse Resp BP Sys/Vargas Pulse Ox Last 24 Hr 97.9 F-100.2 F 66-98 16-20 115-137/64-76 99-100 GENERAL: The patient is awake, alert, and fully oriented, in no acute distress. LUNGS: Breath sounds equal, clear to auscultation bilaterally, no wheezes, no crackles, no accessory muscle use. HEART: Regular rate and rhythm, S1, S2 ABDOMEN: Soft, nontender, nondistended, normoactive bowel sounds RIGHT HIP: Sutures extend from hip to thigh; edges well-approximated but will oozing from one or two areas, serosanguinous; no pus, no exudate, no redness, warmth, no odor; +tenderness over the site of the Duc drain insertion, rest of wound is soft, not tender NEUROLOGICAL: Cranial nerves II through XII grossly intact. Normal speech Laboratory Results - last 24 hr 10/12/18 10/13/18 16:00 07:20 WBC 13.8 H 10.8 RBC 4.16 3.40 L Hgb 10.1 L 8.4 L Hct 32.5 26.2 L D MCV 78.1 L 77.2 L MCH 24.2 L 24.6 L MCHC 31.0 L 31.9 L RDW 19.2 H 19.9 H Plt Count 333 231 MPV 8.1 7.9 Absolute Neuts (auto) 10.7 8.6 Neutrophils % 77.6 79.3 Lymphocytes % 13.0 11.2 Monocytes % 6.7 8.1 Eosinophils % 2.1 1.2 Basophils % 0.6 0.2 Active Medications Generic Name Dose Route Start Last Admin Trade Name Freq PRN Reason Stop Dose Admin Al Hydroxide/Mg Hydroxide 30 ml 10/10/18 17:24 Mylanta Oral Suspension - PO Q4H PRN DYSPEPSIA Aspirin 81 mg 10/10/18 22:00 10/13/18 09:26 Asa - PO 81 mg BID ELKE Administration Diazepam 5 mg 10/10/18 19:58 10/11/18 01:06 Valium - PO 5 mg HS PRN Administration ANXIETY Doxycycline Hyclate 100 mg 10/10/18 20:00 10/13/18 09:27 Vibramycin - PO 100 mg BID@1000,1800 ELKE Administration Duloxetine HCl 30 mg 10/10/18 22:00 10/13/18 09:26 Cymbalta - PO 30 mg BID ELKE Administration Fluconazole 200 mg 10/10/18 20:15 10/13/18 09:26 Diflucan - PO 200 mg DAILY ELKE Administration Lisinopril 10 mg 10/10/18 20:15 10/13/18 09:27 Prinivil PO 10 mg DAILY [facility] Administration Magnesium Hydroxide 30 ml 10/10/18 17:24 Milk Of Magnesia - PO PRN PRN CONSTIPATION Ondansetron HCl 4 mg 10/10/18 17:24 Zofran Injection IVPUSH Q6H PRN NAUSEA Oxybutynin Chloride 5 mg 10/11/18 22:00 10/13/18 06:36 Ditropan - PO 5 mg TID [facility] Administration Oxycodone HCl 30 mg 10/10/18 20:02 10/12/18 18:30 Roxicodone - PO 30 mg Q6H PRN Administration PAIN LEVEL 4 - 6 Oxycodone HCl 80 mg 10/10/18 22:00 10/13/18 06:36 Oxycontin - PO 80 mg TID [facility] Administration Pantoprazole Sodium 40 mg 10/10/18 20:15 10/13/18 09:27 Protonix - PO 40 mg DAILY [facility] Administration Pregabalin 100 mg 10/10/18 22:00 10/13/18 06:36 Lyrica - PO 100 mg TID [facility] Administration Senna/Docusate Sodium 1 tablet 10/10/18 22:00 10/13/18 09:27 Pericolace - PO 1 tablet BID [facility] Administration ASSESSMENT/PLAN 63 year-old female with a PMH significant for a chronic left hip wound, s/p I&D and complex wound closure on 10/10/18. Chronic left hip wound s/p I&D, excision of proliferative fibrous tissue, excision hetertopic ossification, and complex wound closure --POD #3 --drain ~60 cc's over past 12 hours; dressing saturated with serosanguinous fluid; no exudate, erythema --daily dry dressing changes --Tm 100.2, WBC 10.8k --continue doxycycline, fluconazole --ASA 81mg BID -- will discuss continuation with surgery --protonix --pain management: lyrica, oxycodone, oxycontin as per surgery Acute blood loss anemia --transfused 3U on 10/10, Hgb 7.2-->10.1 --dropped to 8.4 today --daily h/h Hypertension --continue lisinopril Depression --continue duloxetine, valium PRN FEN Fluids: PO intake adequate Electrolytes: replete as indicated Nutrition: regular diet DVT prophylaxis: ASA 81mg BID, oob, ambulation Physical therapy Dispo: we will continue to follow this patient with you. Full code. Visit type - Emergency Visit Emergency Visit: Yes ED Registration Date: 10/11/18 Care time: The patient presented to the Emergency Department on the above date and was hospitalized for further evaluation of their emergent condition. - New Patient This patient is new to me today: Yes Date on this admission: 10/14/18 - Critical Care Critical Care patient: No
[2018-10-13] MEDS: oxyCODONE HCL 5 MG TABLET PO PRN (17:15)
--- NOTE | 2018-10-13 17:45 | PN ---
Progress Note (short form) - Note Progress Note: Changed wound dressing Apyrexial No NVD No cellulitis Calf and subsartorian thigh non tender and soft PLAN Continue dressings and hemovac drainage For [employer] superficial wound vac Will arrange
[2018-10-13 22:54] LABS: BASO % 0.5 % (0-2.0); HEMATOCRIT 26.8 % (32.4-45.2); HEMOGLOBIN 8.5 GM/dl (10.7-15.3); LYMPH % 16.5 % (8-40); MCH 24.7 pg (25.7-33.7); MCHC 31.8 g/dl (32.0-36.0); MEAN CELL VOLUME 77.6 fl (80-96); MEAN PLT VOLUME 7.7 fl (7.5-11.1); MONO % 6.2 % (3.8-10.2); NEUT % 73.8 % (42.8-82.8); PLATELET COUNT 248 K/MM3 (134-434); RBC 3.45 M/mm3 (3.60-5.2); RDW 20.2 % (11.6-15.6); WHITE BLOOD COUNT 9.9 K/mm3 (4.0-10.8)
[2018-10-14] MEDS: OXYBUTYNIN CHLORIDE 5 MG TABLET PO SCH ×3 (06:42→21:25)
[2018-10-14] MEDS: PREGABALIN 50 MG CAPSULE PO SCH ×3 (06:42→21:25)
[2018-10-14] MEDS: oxyCODONE HCL 40 MG SUSTAINED ACTING TABLET PO SCH ×3 (06:42→21:25)
[2018-10-14] MEDS: oxyCODONE HCL 5 MG TABLET PO PRN ×2 (09:05→18:10)
[2018-10-14] MEDS: FLUCONAZOLE 100 MG TABLET (UD) PO SCH (09:18)
[2018-10-14] MEDS: ASPIRIN 81 MG CHEWABLE TABLETS PO SCH (09:18)
[2018-10-14] MEDS: DULoxetine HCL 30 MG CAPSULE.DR (FP) PO SCH ×2 (09:18→21:25)
[2018-10-14] MEDS: PANTOPRAZOLE 40 MG TABLET (FP) PO SCH (09:19)
[2018-10-14] MEDS: LISINOPRIL 10 MG TABLET (FP) PO SCH (09:19)
[2018-10-14] MEDS: SENNOSIDES/DOCUSATE COMBO (SENNA PLUS) TABLET (UD) PO SCH ×2 (09:19→21:25)
[2018-10-14] MEDS: DOXYCYCLINE HYCLATE 100 MG CAPSULE PO SCH ×2 (09:20→18:20)
--- NOTE | 2018-10-14 09:39 | PN ---
Physical Exam: SUBJECTIVE: Patient seen and examined at bedside. Pain is well-managed. OBJECTIVE: Vital Signs Period Temp Pulse Resp BP Sys/Vargas Pulse Ox Last 24 Hr 98.4 F-99.7 F 88-103 17-19 114-149/64-70 99-100 GENERAL: The patient is awake, alert, and fully oriented, in no acute distress. LUNGS: Breath sounds equal, clear to auscultation bilaterally, no wheezes, no crackles, no accessory muscle use. HEART: Regular rate and rhythm, S1, S2 ABDOMEN: Soft, nontender, nondistended, normoactive bowel sounds RIGHT HIP: Sutures extend from hip to thigh; edges well-approximated but will oozing from one or two areas, serosanguinous; no pus, no exudate, no redness, warmth, no odor; +tenderness over the site of the Duc drain insertion, rest of wound is soft, not tender NEUROLOGICAL: Cranial nerves II through XII grossly intact. Normal speech Laboratory Results - last 24 hr 10/10/18 10/13/18 16:42 22:25 WBC 9.9 RBC 3.45 L Hgb 8.5 L Hct 26.8 L MCV 77.6 L MCH 24.7 L MCHC 31.8 L RDW 20.2 H Plt Count 248 MPV 7.7 Absolute Neuts (auto) 7.4 Neutrophils % 73.8 Lymphocytes % 16.5 Monocytes % 6.2 Eosinophils % 3.0 Basophils % 0.5 Blood Type A POSITIVE Antibody Screen Negative Crossmatch See Detail Active Medications Generic Name Dose Route Start Last Admin Trade Name Freq PRN Reason Stop Dose Admin Al Hydroxide/Mg Hydroxide 30 ml 10/10/18 17:24 Mylanta Oral Suspension - PO Q4H PRN DYSPEPSIA Aspirin 81 mg 10/10/18 22:00 10/14/18 09:18 Asa - PO 81 mg BID ELKE Administration Diazepam 5 mg 10/10/18 19:58 10/11/18 01:06 Valium - PO 5 mg HS PRN Administration ANXIETY Doxycycline Hyclate 100 mg 10/10/18 20:00 10/14/18 09:20 Vibramycin - PO 100 mg BID@1000,1800 ELKE Administration Duloxetine HCl 30 mg 10/10/18 22:00 10/14/18 09:18 Cymbalta - PO 30 mg BID ELKE Administration Fluconazole 200 mg 10/10/18 20:15 10/14/18 09:18 Diflucan - PO 200 mg DAILY ELKE Administration Lisinopril 10 mg 10/10/18 20:15 10/14/18 09:19 Prinivil PO 10 mg DAILY ELKE Administration Magnesium Hydroxide 30 ml 10/10/18 17:24 Milk Of Magnesia - PO PRN PRN CONSTIPATION Ondansetron HCl 4 mg 10/10/18 17:24 Zofran Injection IVPUSH Q6H PRN NAUSEA Oxybutynin Chloride 5 mg 10/11/18 22:00 10/14/18 06:42 Ditropan - PO 5 mg TID ELKE Administration Oxycodone HCl 30 mg 10/10/18 20:02 10/14/18 09:05 Roxicodone - PO 30 mg Q6H PRN Administration PAIN LEVEL 4 - 6 Oxycodone HCl 80 mg 10/10/18 22:00 10/14/18 06:42 Oxycontin - PO 80 mg TID ELKE Administration Pantoprazole Sodium 40 mg 10/10/18 20:15 10/14/18 09:19 Protonix - PO 40 mg DAILY ELKE Administration Pregabalin 100 mg 10/10/18 22:00 10/14/18 06:42 Lyrica - PO 100 mg TID ELKE Administration Senna/Docusate Sodium 1 tablet 10/10/18 22:00 10/14/18 09:19 Pericolace - PO 1 tablet BID ELKE Administration ASSESSMENT/PLAN: 63 year-old female with a PMH significant for a chronic left hip wound, s/p I&D and complex wound closure on 10/10/18. Chronic left hip wound s/p I&D, excision of proliferative fibrous tissue, excision hetertopic ossification, and complex wound closure --POD #4 --drain ~115 cc's over past 24 hours; dressings continue to saturate with serosanguinous fluid --daily dry dressing changes --plan is for external wound vac dressing, need to arrange with [employer] tomorrow --Tm 99.7, no leukocytosis --continue doxycycline, fluconazole --discussed with surgery, will decrease ASA 81m to daily --protonix --pain management: lyrica, oxycodone, oxycontin as per surgery Acute blood loss anemia --transfused 3U on 10/10, Hgb has been stable over past 24 hours --daily h/h Hypertension --continue lisinopril Depression --continue duloxetine, valium PRN FEN Fluids: PO intake adequate Electrolytes: replete as indicated Nutrition: regular diet DVT prophylaxis: ASA 81mg daily Physical therapy Dispo: we will continue to follow this patient with you. Full code. Visit type - Emergency Visit Emergency Visit: Yes ED Registration Date: 10/11/18 Care time: The patient presented to the Emergency Department on the above date and was hospitalized for further evaluation of their emergent condition. - New Patient This patient is new to me today: No - Critical Care Critical Care patient: No
[2018-10-14 10:02] LABS: BASO % 0.3 % (0-2.0); EOS % 3.8 % (0-4.5); HEMOGLOBIN 8.6 GM/dl (10.7-15.3); LYMPH % 17.9 % (8-40); MCH 24.6 pg (25.7-33.7); MCHC 31.8 g/dl (32.0-36.0); MEAN CELL VOLUME 77.5 fl (80-96); MEAN PLT VOLUME 8.1 fl (7.5-11.1); MONO % 7.4 % (3.8-10.2); NEUT % 70.6 % (42.8-82.8); PLATELET COUNT 249 K/MM3 (134-434); RBC 3.48 M/mm3 (3.60-5.2); RDW 21.1 % (11.6-15.6); WHITE BLOOD COUNT 9.6 K/mm3 (4.0-10.8)
[2018-10-14 10:33] LABS: ALBUMIN 1.5 g/dl (3.4-5.0); ALK PHOS 113 U/L (45-117); ANION GAP 8 MMOL/L (8-16); BILIRUBIN,TOTAL 0.3 mg/dl (0.2-1); BLOOD UREA NITROGEN 16 mg/dl (7-18); CALCIUM 7.9 mg/dl (8.5-10); CHLORIDE 104 mmol/L (98-107); CO2 26 mmol/L (21-32); CREATININE 0.8 mg/dl (0.55-1.3); GLUCOSE,RANDOM 81 mg/dl (74-106); MAGNESIUM 1.6 mg/dL (1.8-2.4); POTASSIUM 4.1 mmol/L (3.5-5.1); SGOT/AST 16 U/L (15-37); SGPT/ALT 12 U/L (13-61); SODIUM 138 mmol/L (136-145); TOT PROT 4.3 g/dl (6.4-8.2)
[2018-10-14] MEDS ORDERED: MAGNESIUM SULF 50% (8.12 MEQ/2 ML-1 GM VIAL) IVPB ONE (19:48)
[2018-10-15] MEDS: oxyCODONE HCL 40 MG SUSTAINED ACTING TABLET PO SCH ×2 (05:54→15:09)
[2018-10-15] MEDS: PREGABALIN 50 MG CAPSULE PO SCH ×2 (05:54→15:09)
[2018-10-15] MEDS: OXYBUTYNIN CHLORIDE 5 MG TABLET PO SCH ×2 (05:54→15:09)
[2018-10-15] MEDS: SENNOSIDES/DOCUSATE COMBO (SENNA PLUS) TABLET (UD) PO SCH (09:45)
[2018-10-15] MEDS: DULoxetine HCL 30 MG CAPSULE.DR (FP) PO SCH (09:45)
[2018-10-15] MEDS: PANTOPRAZOLE 40 MG TABLET (FP) PO SCH (09:45)
[2018-10-15] MEDS: FLUCONAZOLE 100 MG TABLET (UD) PO SCH (09:45)
[2018-10-15] MEDS: DOXYCYCLINE HYCLATE 100 MG CAPSULE PO SCH ×2 (09:45→18:35)
[2018-10-15] MEDS: LISINOPRIL 10 MG TABLET (FP) PO SCH (09:45)
[2018-10-15] MEDS ORDERED: ASPIRIN 81 MG CHEWABLE TABLETS PO SCH (10:00)
[2018-10-15] MEDS: oxyCODONE HCL 5 MG TABLET PO PRN ×2 (11:47→18:35)
[2018-10-15 14:24] VITALS: TEMP 98.5
[2018-10-15 15:51] VITALS: BP 114/64; PULSE 96
--- NOTE | 2018-10-15 16:09 | PN ---
Progress Note (short form) - Note Progress Note: Pt states that she is having pain today and was medicated prior to the dressing change today. Vital Signs Period Temp Pulse Resp BP Sys/Vargas Pulse Ox Last 24 Hr 98.5 F-98.8 F 84-104 16- 111-131/54-67 97-100 FIDELINA-serosangrenous 100ml GEN: appears comfortable Left thigh: incision c/d/i with interrupted sutures, no erythema or drainage. FIDELINA remove with the tip intact. CBC, BMP 10/14/18 06:00 10/14/18 06:00 A/p: 63 yo female POD#5 from Left hip I&D Spoke with Dr. Moya and FIDELINA was removed today. Prevena vac dressing applied today with [employer] rep. Dressing to remain in place x1 week and may follow-up next Monday in the office for a dressing change. Pt was prescribed narcotics pain management by Dr. Moya and received her medications on 10/05/2018.
== END 2018-10-15 18:50 | disposition home or self-care (01) | DRG 940 ==
LOC: SUATTDRO 10:55 → FASU 10:55 → EDSTATUS 13:00 → FASU 18:24 → FM/S 18:24
PROVIDERS: ADMIT Orthopaedic Surgery Adult Reconstructive Orthopaedic Surgery; ATTEND Orthopaedic Surgery Adult Reconstructive Orthopaedic Surgery
PROC: 0KQP0ZZ Repair Left Hip Muscle, Open Approach (ICD-10-PCS; 2018-10-10)
PROC: 30253N1 (ICD-10-PCS; 2018-10-10)
PROC: 0QB90ZZ Excision of Left Femoral Shaft, Open Approach (ICD-10-PCS; principal; 2018-10-10 12:30)
DX: T81.49XD Infection following a procedure, other surgical site, subsequent encounter (principal); D62 Acute posthemorrhagic anemia; M00.9 Pyogenic arthritis, unspecified; L98.499 Non-pressure chronic ulcer of skin of other sites with unspecified severity; I10 Essential (primary) hypertension; F32.9 Major depressive disorder, single episode, unspecified; Y83.9 Surgical procedure, unspecified as the cause of abnormal reaction of the patient, or of later complication, without mention of misadventure at the time of the procedure
CPT/HCPCS: 36415; 36430; 36511; 80048; 80053; 83735; 85025; 85027; 86850; 86900; 86901; 86922; 88304-TC; 94760; 97116-GP; 97162-GP; P9038; P9058

== ENCOUNTER 2018-11-19 11:05 | Inpatient (IN) | payer OTHER ==
[~2018-11-19 11:05] MED LIST changes: +VANCOMYCIN 1,000 MG VIAL (RESTRICTED TO ID ONLY) IVPB ONE
[2018-11-19] MEDS ORDERED: MIDAZOLAM HCL 2 MG/2 ML SINGLE DOSE VIAL ONE (14:37)
[2018-11-19] MEDS ORDERED: ceFAZolin SODIUM 1 GM VIAL IVPB ONE (14:55)
[2018-11-19] MEDS ORDERED: ONDANSETRON 4 MG/2 ML VIAL IVPUSH PRN (15:44)
[2018-11-19] MEDS: CYCLOBENZAPRINE HCL 5 MG TABLET PO SCH (20:00)
--- NOTE | 2018-11-19 21:50 | OP ---
DATE OF OPERATION: 11/19/2018 SURGEON: Albert Moya MD ARBOREAL SCIENTIST: Nursing staff at [facility]. ANESTHESIA: General. PREOPERATIVE DIAGNOSIS: Chronic septic wound, failed delayed primary closure. POSTOPERATIVE DIAGNOSIS: Chronic septic wound, failed delayed primary closure. OPERATION PERFORMED: 1. Incision, drainage, left hip wound. 2. Debridement of soft tissue, muscle, and bone. 3. Insertion of wound vacuum assisted closure. 4. All original sutures removed. OPERATION DETAILS: The patient correctly identified, brought to the operating room, placed in lateral decubitus position, left side up, under general anesthesia. Timeout was called. The left lower extremity was prepped and draped in the routine manner with Betadine scrub solution, wiped off with alcohol, DuraPrep applied. A free drape applied. The wound had broken open. All sutures were removed. Foul , unusual-smelling bacteria colonization of this wound noted. This was washed thoroughly with 5 L of saline and washed extensively with Betadine scrub, and a repeat washout performed again. Cultures were taken before the washout. A wound VAC was placed in situ, sealed appropriately. The wound VAC was working well by the time the patient was extricated back to the OR. PLAN: Plan is to go ahead with repeat washout, debridement in hopefully 48 hours, possibly 72 hours, and then attempt at repeat delayed primary closure. I retained the metal hardware intramedullary canal. If this is removed, the risk of intraosseous and intramedullary infection will become enormously problematic. The only hope I have here of giving her any stability will be to an endoprosthetic replacement, but only once we have control of this infection and the wound as well completely. I have discussed a throufh hip amputation with her. She is completely against this at this present time. MD OSVALDO Oconnor/[id number] MTDD
--- NOTE | 2018-11-20 03:06 | FALL ---
Fall Exam - Event Witnessed fall: Yes Location of Fall: Bathroom Fall from: While ambulating - Pre-Fall Mental Status: Alert Current Medications: Current Medications Generic Name Dose Route Start Last Admin Trade Name Edy PRN Reason Stop Dose Admin Cyclobenzaprine HCl 5 mg 11/19/18 16:30 11/19/18 20:00 Cyclobenzaprine Hcl PO 5 mg DAILY ELKE Administration Lactated Ringer's 1,000 mls @ 75 mls/hr 11/19/18 15:45 Lactated Ringers Solution IV ASDIR ELKE Ondansetron HCl 4 mg 11/19/18 15:44 Zofran Injection IVPUSH Q6H PRN NAUSEA AND/OR VOMITING - Post-Fall Patient Outcome: Pain Only (coccyx) Exam Findings: AAOx3, Head- nontraumatic, normocephalic. LUNGS- CTAB, Heart- RRR , S1, S2 no MGR. Abd- Soft, non-tender, BS present. Coccyx- TN to palpation, no bruising. L- Upper Leg swollen TN to palpation (surgical site), hemovac with drainage, surgical dressing intact, FROM of RUE, LUE, RLE. No pelvic, No R- Hip TN Treatment: Analgesia, Ice Pack Vital Signs: Vital Signs Temperature 98.8 F 11/19/18 21:00 Pulse Rate 86 11/19/18 21:00 Respiratory Rate 18 11/19/18 21:00 Blood Pressure 122/64 11/19/18 21:00 O2 Sat by Pulse Oximetry (%) 98 11/19/18 22:29 LOC Post-Fall: Unchanged Identify factors for HIGH RISK for Head Injury: None of the above
[2018-11-20] MEDS ORDERED: oxyCODONE HCL 5 MG TABLET PO ONE (04:02)
[2018-11-20 07:27] LABS: BASO % 0.3 % (0-2.0); EOS % 2.5 % (0-4.5); HEMATOCRIT 21.7 % (32.4-45.2); HEMOGLOBIN 7.1 GM/dL (10.7-15.3); LYMPH % 15.8 % (8-40); MCH 23.4 pg (25.7-33.7); MCHC 32.8 g/dl (32.0-36.0); MEAN CELL VOLUME 71.3 fl (80-96); MEAN PLT VOLUME 7.1 fl (7.5-11.1); MONO % 9.8 % (3.8-10.2); NEUT % 71.6 % (42.8-82.8); PLATELET COUNT 227 K/MM3 (134-434); RBC 3.04 M/mm3 (3.60-5.2); RDW 20.7 % (11.6-15.6); WHITE BLOOD COUNT 5.8 K/mm3 (4.0-10.0)
[2018-11-20 08:33] LABS: ANION GAP 9 MMOL/L (8-16); BLOOD UREA NITROGEN 14 mg/dL (7-18); CALCIUM 7.6 mg/dL (8.5-10.1); CHLORIDE 110 mmol/L (98-107); CO2 23 mmol/L (21-32); CREATININE 0.9 mg/dL (0.55-1.3); GLUCOSE,RANDOM 95 mg/dL (74-106); POTASSIUM 3.8 mmol/L (3.5-5.1); SODIUM 142 mmol/L (136-145)
--- NOTE | 2018-11-20 09:37 | PN ---
Progress Note (short form) - Note Progress Note: POD#1 Pt without any complaints today. As per the nursing staff she had a witnessed fall overnight. No LOC. Vital Signs Period Temp Pulse Resp BP Sys/Vargas Pulse Ox Last 24 Hr 97.6 F-98.8 F 84-98 14-20 97-139/54-84 95-100 GEN: A&0x4, NAD Left: hip with vac dressing in place. Drain tubing with serosangrenous outpt. Mild ecchymosis to left hip. Soft, no hard masses to hip. CBC, BMP 11/20/18 05:30 11/20/ 05:30 A/p: 63 yo female s/p Left hip I&D of left chronic wound/failed primary closure D/w Dr. Moya the plan is for redebridement of wound either Mon or Monday of this week Continue pain medications and oral pain meds as needed Continued care d/w the medical team
[2018-11-20] MEDS ORDERED: PT OWN MED DRAWER 7, Y5N ONE (10:02)
[2018-11-20] MEDS: CYCLOBENZAPRINE HCL 5 MG TABLET PO SCH (10:11)
[2018-11-20 12:30] LABS: ANISOCYTOSIS 1+
[2018-11-20 12:31] LABS: OVALOCYTE 1+
[2018-11-20 14:20] LABS: BASO % 0.5 % (0-2.0); HEMATOCRIT 26.2 % (32.4-45.2); HEMOGLOBIN 8.3 GM/dL (10.7-15.3); LYMPH % 15.2 % (8-40); MCH 23.1 pg (25.7-33.7); MCHC 31.6 g/dl (32.0-36.0); MEAN CELL VOLUME 73.1 fl (80-96); MEAN PLT VOLUME 7.6 fl (7.5-11.1); MONO % 7.7 % (3.8-10.2); NEUT % 73.6 % (42.8-82.8); PLATELET COUNT 245 K/MM3 (134-434); RBC 3.59 M/mm3 (3.60-5.2); RDW 21.4 % (11.6-15.6); WHITE BLOOD COUNT 8.2 K/mm3 (4.0-10.0)
--- NOTE | 2018-11-20 14:44 | PN ---
Physical Exam: SUBJECTIVE: Patient seen and examined at the bedside. she was laying in bed, in no acute distress. OBJECTIVE: As per the nursing staff she had a witnessed fall overnight. No LOC. coccxyx xray negative. Vital Signs Period Temp Pulse Resp BP Sys/Vargas Pulse Ox Last 24 Hr 97.6 F-98.8 F 84-102 14-20 97-156/54-75 95-100 GENERAL: The patient is awake, alert, in no acute distress. HEAD: Normal with no signs of trauma. EYES: PERRL, extraocular movements intact, sclera anicteric, conjunctiva clear. No ptosis. ENT: Ears normal, nares patent, oropharynx clear without exudates, moist mucous membranes. NECK: Trachea midline, full range of motion, supple. LUNGS: Breath sounds equal, clear to auscultation bilaterally, no wheezes HEART: Regular rate and rhythm ABDOMEN: Soft, nontender, nondistended, normoactive bowel sounds, no guarding EXTREMITIES: no edema. NEUROLOGICAL: calm, cooperative PSYCH: Normal mood, normal affect. SKIN: left hip wound debridement with wound vac Laboratory Results - last 24 hr 11/20/18 11/20/18 11/20/18 05:30 05:30 13:45 WBC 5.8 8.2 RBC 3.04 L 3.59 L Hgb 7.1 L 8.3 L Hct 21.7 L 26.2 L D MCV 71.3 L 73.1 L MCH 23.4 L 23.1 L MCHC 32.8 31.6 L RDW 20.7 H 21.4 H Plt Count 227 245 MPV 7.1 L 7.6 Absolute Neuts (auto) 4.2 6.1 Neutrophils % 71.6 73.6 Lymphocytes % 15.8 15.2 Monocytes % 9.8 7.7 Eosinophils % 2.5 3.0 Basophils % 0.3 0.5 Nucleated RBC % 0 0 Anisocytosis 1+ Microcytosis 1+ Ovalocytes 1+ Sodium 142 Potassium 3.8 Chloride 110 H Carbon Dioxide 23 Anion Gap 9 BUN 14 Creatinine 0.9 Creat Clearance w eGFR > 60 Random Glucose 95 Calcium 7.6 L Active Medications Generic Name Dose Route Start Last Admin Trade Name Freq PRN Reason Stop Dose Admin Cyclobenzaprine HCl 5 mg 11/19/18 16:30 11/20/18 10:11 Cyclobenzaprine Hcl PO 5 mg DAILY ELKE Administration Lactated Ringer's 1,000 mls @ 75 mls/hr 11/19/18 15:45 Lactated Ringers Solution IV ASDIR ELKE Ondansetron HCl 4 mg 11/19/18 15:44 Zofran Injection IVPUSH Q6H PRN NAUSEA AND/OR VOMITING ASSESSMENT/PLAN: Patient is a 63 year old female with a significant past medical history of hypertension, anxiety, depression, chronic pain and chronic left hip left wound. She is here for left hip wound debridement. Surgery: Chronic left hip wound s/p Left hip I&D of left chronic wound Plan is for re-debridement of wound this week per surgery Continue pain medications and oral pain meds as needed with caution as patient is a fall risk Encourage to use incentive spirometer Card: Hypertension. BP stable. Start lisinopril Neuro: Depression continue duloxetine, valium PRN fen Fluids: PO intake adequate Electrolytes: replete as indicated Nutrition: regular diet full code Visit type - Emergency Visit Emergency Visit: Yes ED Registration Date: 11/19/18 Care time: The patient presented to the Emergency Department on the above date and was hospitalized for further evaluation of their emergent condition. - New Patient This patient is new to me today: Yes Date on this admission: 11/20/18 - Critical Care Critical Care patient: No - Discharge Referral Referred to [facility] No
[2018-11-20] MEDS ORDERED: oxyCODONE HCL 5 MG TABLET PO PRN (18:18)
[2018-11-20] MEDS: LACTATED RINGERS SOLUTION 1,000 ML IV SCH (19:27)
[2018-11-20] MEDS ORDERED: diazePAM 5 MG TABLET PO PRN (20:11)
[2018-11-20] MEDS: OXYBUTYNIN CHLORIDE 5 MG TABLET PO SCH (21:51)
[2018-11-20] MEDS: PREGABALIN 100 MG CAPSULE PO SCH (21:51)
[2018-11-20] MEDS: DULoxetine HCL 30 MG CAPSULE.DR (FP) PO SCH (21:51)
[2018-11-21] MEDS: OXYBUTYNIN CHLORIDE 5 MG TABLET PO SCH ×3 (05:11→21:12)
[2018-11-21] MEDS: PREGABALIN 100 MG CAPSULE PO SCH ×3 (05:11→21:12)
[2018-11-21 07:30] LABS: HEMATOCRIT 21.1 % (32.4-45.2); MCH 23.2 pg (25.7-33.7); MEAN CELL VOLUME 70.5 fl (80-96); MEAN PLT VOLUME 7.2 fl (7.5-11.1); PLATELET COUNT 236 K/MM3 (134-434); RBC 2.99 M/mm3 (3.60-5.2); RDW 21.3 % (11.6-15.6)
[2018-11-21 07:58] LABS: ALBUMIN 1.4 g/dl (3.4-5.0); ALK PHOS 114 U/L (45-117); ANION GAP 7 MMOL/L (8-16); BILIRUBIN,TOTAL 0.2 mg/dL (0.2-1); BLOOD UREA NITROGEN 12 mg/dL (7-18); CALCIUM 7.7 mg/dL (8.5-10.1); CHLORIDE 109 mmol/L (98-107); CO2 23 mmol/L (21-32); CREATININE 0.6 mg/dL (0.55-1.3); GLUCOSE,RANDOM 85 mg/dL (74-106); MAGNESIUM 1.8 mg/dL (1.8-2.4); POTASSIUM 3.8 mmol/L (3.5-5.1); SGOT/AST 13 U/L (15-37); SGPT/ALT 9 U/L (13-61); SODIUM 138 mmol/L (136-145); TOT PROT 4.4 g/dl (6.4-8.2)
--- NOTE | 2018-11-21 08:07 | SPA.PREOP ---
- PRE-OP NOTE Dx: Left hip wound Planned Procedure: Left hip wound washout Surgeon: Albert Moya MD Last Vital Signs Temp Pulse Resp BP Pulse Ox 99.7 F H 101 H 20 125/79 98 11/21/18 06:58 11/21/18 06:58 11/21/18 06:58 11/21/18 06:58 11/20/18 21:00 Lab Results WBC 6.0 K/mm3 (4.0-10.0) 11/21/18 06:00 RBC 2.99 M/mm3 (3.60-5.2) L 11/21/18 06:00 Hgb 7.0 GM/dL (10.7-15.3) L 11/21/18 06:00 Hct 21.1 % (32.4-45.2) L D 11/21/18 06:00 MCV 70.5 fl (80-96) L 11/21/18 06:00 MCHC 33.0 g/dl (32.0-36.0) 11/21/18 06:00 RDW 21.3 % (11.6-15.6) H 11/21/18 06:00 Plt Count 236 K/MM3 (134-434) 11/21/18 06:00 Sodium 138 mmol/L (136-145) 11/21/18 06:00 Potassium 3.8 mmol/L (3.5-5.1) 11/21/18 06:00 Chloride 109 mmol/L (98-107) H 11/21/18 06:00 Carbon Dioxide 23 mmol/L (21-32) 11/21/18 06:00 Anion Gap 7 MMOL/L (8-16) L 11/21/18 06:00 BUN 12 mg/dL (7-18) 11/21/18 06:00 Creatinine 0.6 mg/dL (0.55-1.3) 11/21/18 06:00 Random Glucose 85 mg/dL (74-106) 11/21/18 06:00 Calcium 7.7 mg/dL (8.5-10.1) L 11/21/18 06:00 Blood Type A POSITIVE 11/19/18 11:37 Antibody Screen Negative 11/19/18 11:37 - ASSESSMENT/PLAN 1. Make NPO after midnight except po meds 2. GI/DVT PPX 3. Medical optimization / clearance 4. Consent to be obtained by surgeon after risks, benefits and alternatives discussed with patient and or Health Care Proxy.
[2018-11-21] MEDS ORDERED: PT OWN MED DRAWER 7, Y5N ONE ×3 (09:44→21:55)
[2018-11-21] MEDS: PANTOPRAZOLE 40 MG TABLET (FP) PO SCH (09:51)
[2018-11-21] MEDS: LISINOPRIL 10 MG TABLET (FP) PO SCH (09:51)
[2018-11-21] MEDS: ASPIRIN 325 MG ENTERIC COATED TABLET (FP) PO SCH (09:51)
[2018-11-21] MEDS: DULoxetine HCL 30 MG CAPSULE.DR (FP) PO SCH ×2 (09:51→21:12)
--- NOTE | 2018-11-21 13:06 | PN ---
Physical Exam: SUBJECTIVE: Patient seen and examined at the bedside. Tells me that she has been put on doxycyline for mrsa and has been on it for a while as outpatient. Assured her that she can ask for pain medications as needed, but will monitor her closely as she had a recent fall. OBJECTIVE: Vital Signs Period Temp Pulse Resp BP Sys/Vargas Pulse Ox Last 24 Hr 97.9 F-99.7 F 90-101 18-20 120-129/61-79 96-98 GENERAL: The patient is awake, alert, in no acute distress. HEAD: Normal with no signs of trauma. EYES: PERRL, extraocular movements intact, sclera anicteric, conjunctiva clear. No ptosis. ENT: Ears normal, nares patent, oropharynx clear without exudates, moist mucous membranes. NECK: Trachea midline, full range of motion, supple. LUNGS: Breath sounds equal, clear to auscultation bilaterally, no wheezes HEART: Regular rate and rhythm ABDOMEN: Soft, nontender, nondistended, normoactive bowel sounds, no guarding EXTREMITIES: no edema. NEUROLOGICAL: calm, cooperative PSYCH: Normal mood, normal affect. SKIN: left hip wound debridement with wound vac Laboratory Results - last 24 hr 11/19/18 11/20/18 11/21/18 11:37 13:45 06:00 WBC 8.2 6.0 RBC 3.59 L 2.99 L Hgb 8.3 L 7.0 L Hct 26.2 L D 21.1 L D MCV 73.1 L 70.5 L MCH 23.1 L 23.2 L MCHC 31.6 L 33.0 RDW 21.4 H 21.3 H Plt Count 245 236 MPV 7.6 7.2 L Absolute Neuts (auto) 6.1 Neutrophils % 73.6 Lymphocytes % 15.2 Monocytes % 7.7 Eosinophils % 3.0 Basophils % 0.5 Nucleated RBC % 0 Sodium Potassium Chloride Carbon Dioxide Anion Gap BUN Creatinine Creat Clearance w eGFR Random Glucose Calcium Magnesium Total Bilirubin AST ALT Alkaline Phosphatase Total Protein Albumin Blood Type A POSITIVE Antibody Screen Negative Crossmatch See Detail 11/21/18 06:00 WBC RBC Hgb Hct MCV MCH MCHC RDW Plt Count MPV Absolute Neuts (auto) Neutrophils % Lymphocytes % Monocytes % Eosinophils % Basophils % Nucleated RBC % Sodium 138 Potassium 3.8 Chloride 109 H Carbon Dioxide 23 Anion Gap 7 L BUN 12 Creatinine 0.6 Creat Clearance w eGFR > 60 Random Glucose 85 Calcium 7.7 L Magnesium 1.8 Total Bilirubin 0.2 AST 13 L ALT 9 L Alkaline Phosphatase 114 Total Protein 4.4 L Albumin 1.4 L Blood Type Antibody Screen Crossmatch Active Medications Generic Name Dose Route Start Last Admin Trade Name Freq PRN Reason Stop Dose Admin Aspirin 325 mg 11/21/18 10:00 11/21/18 09:51 Ecotrin - PO 325 mg DAILY [facility] Administration Cyclobenzaprine HCl 5 mg 11/19/18 16:30 11/20/18 10:11 Cyclobenzaprine Hcl PO 5 mg DAILY [facility] Administration Diazepam 5 mg 11/20/18 20:11 11/20/18 21:55 Valium - PO 5 mg HS PRN Administration ANXIETY Duloxetine HCl 30 mg 11/20/18 22:00 11/21/18 09:51 Cymbalta - PO 30 mg BID [facility] Administration Lactated Ringer's 1,000 mls @ 75 mls/hr 11/19/18 15:45 11/20/18 19:27 Lactated Ringers Solution IV Not Given ASD[facility] Lisinopril 10 mg 11/21/18 10:00 11/21/18 09:51 Prinivil PO 10 mg DAILY [facility] Administration Non-Formulary Medication 100 mg 11/21/18 13:15 Doxycycline Hyclate [Doxycycline Hyclate] PO BID [facility] Non-Formulary Medication 200 mg 11/21/18 13:15 Fluconazole [Fluconazole] PO DAILY [facility] Ondansetron HCl 4 mg 11/19/18 15:44 Zofran Injection IVPUSH Q6H PRN NAUSEA AND/OR VOMITING Oxybutynin Chloride 5 mg 11/20/18 22:00 11/21/18 05:11 Ditropan - PO 5 mg TID [facility] Administration Oxycodone HCl 30 mg 11/20/18 20:14 Roxicodone - PO Q6H PRN PAIN LEVEL 4 - 6 Pantoprazole Sodium 40 mg 11/21/18 10:00 11/21/18 09:51 Protonix - PO 40 mg DAILY [facility] Administration Pregabalin 100 mg 11/20/18 22:00 11/21/18 05:11 Lyrica - PO 100 mg TID ELKE Administration ASSESSMENT/PLAN: Patient is a 63 year old female with a significant past medical history of hypertension, anxiety, depression, chronic pain and chronic left hip left wound. She is here for left hip wound debridement. Surgery: Chronic left hip wound s/p Left hip I&D of left chronic wound Plan is for re-debridement of wound on Monday with Dr. Moya Continue pain medications and oral pain meds as needed with caution as patient is a fall risk Encourage to use incentive spirometer Card: Hypertension. BP stable. Start lisinopril Hematology Acute blood loss anemia. Will give 1 unit of prbc and repeat cbc in a.m. Neuro: Depression continue duloxetine, valium PRN fen Fluids: PO intake adequate Electrolytes: replete as indicated Nutrition: regular diet Visit type - Emergency Visit Emergency Visit: Yes ED Registration Date: 11/19/18 Care time: The patient presented to the Emergency Department on the above date and was hospitalized for further evaluation of their emergent condition. - New Patient This patient is new to me today: No - Critical Care Critical Care patient: No - Discharge Referral Referred to [facility] Med P.C.: No
[2018-11-21] MEDS: CYCLOBENZAPRINE HCL 5 MG TABLET PO SCH (13:58)
[2018-11-21] MEDS: DOXYCYCLINE HYCLATE 100 MG CAPSULE PO SCH ×2 (14:06→21:12)
[2018-11-21] MEDS: FLUCONAZOLE 100 MG TABLET (UD) PO SCH (14:06)
[2018-11-21] MEDS: oxyCODONE HCL 5 MG TABLET PO PRN ×2 (15:05→21:14)
[2018-11-21] MEDS: LACTATED RINGERS SOLUTION 1,000 ML IV SCH (16:41)
[2018-11-22] MEDS ORDERED: PT OWN MED DRAWER 7, Y5N ONE ×3 (00:12→10:29)
[2018-11-22] MEDS: OXYBUTYNIN CHLORIDE 5 MG TABLET PO SCH ×3 (05:28→21:45)
[2018-11-22] MEDS: oxyCODONE HCL 5 MG TABLET PO PRN ×2 (05:28→21:49)
[2018-11-22] MEDS: PREGABALIN 100 MG CAPSULE PO SCH ×3 (05:28→21:48)
--- NOTE | 2018-11-22 08:34 | PN ---
Progress Note (short form) - Note Progress Note: surgery Pre op for debridement of hip tomorrow. No overnight events per nursing. Vital Signs Temp 98.1 F 11/22/18 06:27 Pulse 82 11/22/18 06:27 Resp 20 11/22/18 06:27 BP 122/68 11/22/18 06:27 Pulse Ox 96 11/21/18 21:00 Intake & Output 11/21/18 11/21/18 11/22/18 11:59 23:59 11:59 Intake Total 380 950 200 Balance 380 950 200 Intake: IV 0 Lactated Ringers Solution 0 1,000 ml @ 75 mls/hr IV ASDIR ELKE Rx#:[id number] Oral 380 600 200 Packed Cells 350 Other: Voiding Method Toilet Toilet # Unmeasured Voids Void 1 1 Bowel Movement No No CBC, BMP 11/22/18 07:45 11/22/18 07:45 Plan for debridemant in OR tomorrow please see Pre-op note from 11/21/18, no changes in evaluation or plan.
[2018-11-22 08:51] LABS: ALBUMIN 1.4 g/dl (3.4-5.0); ALK PHOS 108 U/L (45-117); ANION GAP 5 MMOL/L (8-16); BILIRUBIN,TOTAL 0.3 mg/dL (0.2-1); BLOOD UREA NITROGEN 14 mg/dL (7-18); CALCIUM 7.4 mg/dL (8.5-10.1); CHLORIDE 108 mmol/L (98-107); CO2 26 mmol/L (21-32); CREATININE 0.9 mg/dL (0.55-1.3); GLUCOSE,RANDOM 81 mg/dL (74-106); MAGNESIUM 1.7 mg/dL (1.8-2.4); POTASSIUM 4.2 mmol/L (3.5-5.1); SGOT/AST 10 U/L (15-37); SGPT/ALT 8 U/L (13-61); SODIUM 139 mmol/L (136-145); TOT PROT 4.6 g/dl (6.4-8.2)
[2018-11-22 08:59] LABS: BASO % 0.3 % (0-2.0); EOS % 5.2 % (0-4.5); HEMATOCRIT 25.4 % (32.4-45.2); HEMOGLOBIN 8.5 GM/dL (10.7-15.3); LYMPH % 20.6 % (8-40); MCH 24.1 pg (25.7-33.7); MCHC 33.4 g/dl (32.0-36.0); MEAN CELL VOLUME 72.3 fl (80-96); MEAN PLT VOLUME 7.3 fl (7.5-11.1); NEUT % 66.9 % (42.8-82.8); PLATELET COUNT 259 K/MM3 (134-434); RBC 3.52 M/mm3 (3.60-5.2); RDW 20.4 % (11.6-15.6); WHITE BLOOD COUNT 7.9 K/mm3 (4.0-10.0)
[2018-11-22] MEDS: LISINOPRIL 10 MG TABLET (FP) PO SCH (10:36)
[2018-11-22] MEDS: DULoxetine HCL 30 MG CAPSULE.DR (FP) PO SCH ×2 (10:36→21:45)
[2018-11-22] MEDS: PANTOPRAZOLE 40 MG TABLET (FP) PO SCH (10:36)
[2018-11-22] MEDS: ASPIRIN 325 MG ENTERIC COATED TABLET (FP) PO SCH (10:36)
[2018-11-22] MEDS: CYCLOBENZAPRINE HCL 5 MG TABLET PO SCH ×2 (10:36→10:37)
[2018-11-22] MEDS: DOXYCYCLINE HYCLATE 100 MG CAPSULE PO SCH ×2 (10:36→21:45)
--- NOTE | 2018-11-22 10:47 | PN ---
Physical Exam: SUBJECTIVE: Patient seen and examined at the bedside. OBJECTIVE: npo for OR tomorrow Vital Signs Period Temp Pulse Resp BP Sys/Vargas Pulse Ox Last 24 Hr 97.9 F-98.4 F 78-96 18-130 122-138/68-78 96 GENERAL: The patient is awake, alert, in no acute distress. HEAD: Normal with no signs of trauma. EYES: PERRL, extraocular movements intact, sclera anicteric, conjunctiva clear. No ptosis. ENT: Ears normal, nares patent, oropharynx clear without exudates, moist mucous membranes. NECK: Trachea midline, full range of motion, supple. LUNGS: Breath sounds equal, clear to auscultation bilaterally, no wheezes HEART: Regular rate and rhythm ABDOMEN: Soft, nontender, nondistended, normoactive bowel sounds, no guarding EXTREMITIES: no edema. NEUROLOGICAL: calm, cooperative PSYCH: Normal mood, normal affect. SKIN: left hip wound debridement with wound vac Laboratory Results - last 24 hr 11/19/18 11/21/18 11/22/18 11:37 20:30 07:45 WBC 7.9 RBC 3.52 L Hgb 8.5 L Hct 25.4 L D MCV 72.3 L MCH 24.1 L MCHC 33.4 RDW 20.4 H Plt Count 259 MPV 7.3 L Absolute Neuts (auto) 5.3 Neutrophils % 66.9 Lymphocytes % 20.6 D Monocytes % 7.0 Eosinophils % 5.2 H Basophils % 0.3 Nucleated RBC % 0 Sodium Potassium Chloride Carbon Dioxide Anion Gap BUN Creatinine Creat Clearance w eGFR Random Glucose Calcium Magnesium Ferritin Total Bilirubin AST ALT Alkaline Phosphatase Total Protein Albumin Vitamin B12 438 Serum Folate 8 Blood Type A POSITIVE Antibody Screen Negative Crossmatch See Detail 11/22/18 07:45 WBC RBC Hgb Hct MCV MCH MCHC RDW Plt Count MPV Absolute Neuts (auto) Neutrophils % Lymphocytes % Monocytes % Eosinophils % Basophils % Nucleated RBC % Sodium 139 Potassium 4.2 Chloride 108 H Carbon Dioxide 26 Anion Gap 5 L BUN 14 Creatinine 0.9 Creat Clearance w eGFR > 60 Random Glucose 81 Calcium 7.4 L Magnesium 1.7 L Ferritin 550.2 H Total Bilirubin 0.3 AST 10 L ALT 8 L Alkaline Phosphatase 108 Total Protein 4.6 L Albumin 1.4 L Vitamin B12 Serum Folate Blood Type Antibody Screen Crossmatch Active Medications Generic Name Dose Route Start Last Admin Trade Name Freq PRN Reason Stop Dose Admin Aspirin 325 mg 11/21/18 10:00 11/22/18 10:36 Ecotrin - PO 325 mg DAILY [facility] Administration Cyclobenzaprine HCl 5 mg 11/19/18 16:30 11/22/18 10:37 Cyclobenzaprine Hcl PO 5 mg DAILY [facility] Administration Diazepam 5 mg 11/20/18 20:11 11/20/18 21:55 Valium - PO 5 mg HS PRN Administration ANXIETY Doxycycline Hyclate 100 mg 11/21/18 13:15 11/22/18 10:36 Vibramycin - PO 100 mg BID [facility] Administration Duloxetine HCl 30 mg 11/20/18 22:00 11/22/18 10:36 Cymbalta - PO 30 mg BID [facility] Administration Lisinopril 10 mg 11/21/18 10:00 11/22/18 10:36 Prinivil PO 10 mg DAILY [facility] Administration Ondansetron HCl 4 mg 11/19/18 15:44 Zofran Injection IVPUSH Q6H PRN NAUSEA AND/OR VOMITING Oxybutynin Chloride 5 mg 11/20/18 22:00 11/22/18 05:28 Ditropan - PO 5 mg TID [facility] Administration Oxycodone HCl 30 mg 11/20/18 20:14 11/22/18 05:28 Roxicodone - PO 30 mg Q6H PRN Administration PAIN LEVEL 4 - 6 Pantoprazole Sodium 40 mg 11/21/18 10:00 11/22/18 10:36 Protonix - PO 40 mg DAILY [facility] Administration Pregabalin 100 mg 11/20/18 22:00 11/22/18 05:28 Lyrica - PO 100 mg TID [facility] Administration ASSESSMENT/PLAN: Patient is a 63 year old female with a significant past medical history of hypertension, anxiety, depression, chronic pain and chronic left hip left wound. She is here for left hip wound debridement. Surgery: Chronic left hip wound s/p Left hip I&D of left chronic wound Plan is for re-debridement of wound on Monday with Dr. Moya Continue pain medications and oral pain meds as needed with caution as patient is a fall risk Encourage to use incentive spirometer Card: Hypertension. BP stable. Start lisinopril Hematology Acute blood loss anemia. s/p 1 unit of prbc. hmg/hct stable. Neuro: Depression continue duloxetine, valium PRN fen Fluids: PO intake adequate Electrolytes: replete as indicated Nutrition: regular diet npo at midnight for surgical debridement Visit type - Emergency Visit Emergency Visit: Yes ED Registration Date: 11/19/18 Care time: The patient presented to the Emergency Department on the above date and was hospitalized for further evaluation of their emergent condition. - New Patient This patient is new to me today: No - Critical Care Critical Care patient: No - Discharge Referral Referred to [facility] Med P.C.: No
[2018-11-22] MEDS ORDERED: oxyCODONE HCL 5 MG TABLET PO PRN (11:15)
[2018-11-22] MEDS: FLUCONAZOLE 100 MG TABLET (UD) PO SCH (11:56)
[2018-11-23] MEDS: oxyCODONE HCL 5 MG TABLET PO PRN ×2 (04:42→20:00)
[2018-11-23] MEDS: PREGABALIN 100 MG CAPSULE PO SCH ×4 (05:32→22:30)
[2018-11-23] MEDS: OXYBUTYNIN CHLORIDE 5 MG TABLET PO SCH ×4 (05:32→22:30)
[2018-11-23 07:25] LABS: BASO % 0.5 % (0-2.0); EOS % 4.5 % (0-4.5); HEMATOCRIT 28.6 % (32.4-45.2); HEMOGLOBIN 9.5 GM/dL (10.7-15.3); LYMPH % 17.6 % (8-40); MCH 24.3 pg (25.7-33.7); MCHC 33.1 g/dl (32.0-36.0); MEAN CELL VOLUME 73.5 fl (80-96); MEAN PLT VOLUME 7.7 fl (7.5-11.1); MONO % 6.3 % (3.8-10.2); NEUT % 71.1 % (42.8-82.8); PLATELET COUNT 278 K/MM3 (134-434); WHITE BLOOD COUNT 8.7 K/mm3 (4.0-10.0)
[2018-11-23 07:38] LABS: INR 1.08 (0.83-1.09); PROTHROMBIN TIME (PATIENT) 12.8 SEC (9.7-13.0)
[2018-11-23 08:10] LABS: ALBUMIN 1.6 g/dl (3.4-5.0); ALK PHOS 121 U/L (45-117); ANION GAP 8 MMOL/L (8-16); BILIRUBIN,TOTAL 0.4 mg/dL (0.2-1); BLOOD UREA NITROGEN 17 mg/dL (7-18); CALCIUM 7.8 mg/dL (8.5-10.1); CHLORIDE 106 mmol/L (98-107); CO2 25 mmol/L (21-32); CREATININE 0.9 mg/dL (0.55-1.3); GLUCOSE,RANDOM 76 mg/dL (74-106); POTASSIUM 4.3 mmol/L (3.5-5.1); SGOT/AST 9 U/L (15-37); SGPT/ALT 8 U/L (13-61); SODIUM 139 mmol/L (136-145); TOT PROT 5.3 g/dl (6.4-8.2)
[2018-11-23] MEDS ORDERED: PT OWN MED DRAWER 7, Y5N ONE (09:00)
[2018-11-23] MEDS: LISINOPRIL 10 MG TABLET (FP) PO SCH (09:06)
[2018-11-23] MEDS: DOXYCYCLINE HYCLATE 100 MG CAPSULE PO SCH ×2 (09:06→22:15)
[2018-11-23] MEDS: PANTOPRAZOLE 40 MG TABLET (FP) PO SCH (09:06)
[2018-11-23] MEDS: DULoxetine HCL 30 MG CAPSULE.DR (FP) PO SCH ×2 (09:06→22:30)
[2018-11-23] MEDS: CYCLOBENZAPRINE HCL 5 MG TABLET PO SCH (09:06)
[2018-11-23] MEDS: ASPIRIN 325 MG ENTERIC COATED TABLET (FP) PO SCH (09:07)
[2018-11-23] MEDS ORDERED: SODIUM CHLORIDE 500 ML IV STA (09:16)
--- NOTE | 2018-11-23 09:38 | PN ---
Physical Exam: SUBJECTIVE: Patient seen and examined at the bedside. called by primary RN as patient is tachycardic in the 140s. OBJECTIVE: on exam patient is sitting up in bed, tells me that she is having pain. received oxycodone 20mg at 0400. oxy reduced yesterday as pt was more somnolent. will order ekg, fluid bolus and trop she denies chest pain or shortness of breath Vital Signs Period Temp Pulse Resp BP Sys/Vargas Pulse Ox Last 24 Hr 98.1 F-98.5 F 89-103 18-20 94-139/55-83 96 GENERAL: The patient is awake, alert, in no acute distress. HEAD: Normal with no signs of trauma. EYES: PERRL, extraocular movements intact, sclera anicteric, conjunctiva clear. No ptosis. ENT: Ears normal, nares patent, oropharynx clear without exudates, moist mucous membranes. NECK: Trachea midline, full range of motion, supple. LUNGS: Breath sounds equal, clear to auscultation bilaterally, no wheezes HEART: tachycardia 130s ABDOMEN: Soft, nontender, nondistended, normoactive bowel sounds, no guarding EXTREMITIES: no edema. NEUROLOGICAL: calm, cooperative PSYCH: Normal mood, normal affect. SKIN: left hip wound debridement with wound vac Laboratory Results - last 24 hr 11/23/18 11/23/18 11/23/18 06:00 06:00 06:00 WBC 8.7 RBC 3.90 Hgb 9.5 L Hct 28.6 L MCV 73.5 L MCH 24.3 L MCHC 33.1 RDW 21.0 H Plt Count 278 MPV 7.7 Absolute Neuts (auto) 6.2 Neutrophils % 71.1 Lymphocytes % 17.6 Monocytes % 6.3 Eosinophils % 4.5 Basophils % 0.5 Nucleated RBC % 0 PT with INR 12.80 INR 1.08 Sodium 139 Potassium 4.3 Chloride 106 Carbon Dioxide 25 Anion Gap 8 BUN 17 Creatinine 0.9 Creat Clearance w eGFR > 60 Random Glucose 76 Calcium 7.8 L Total Bilirubin 0.4 AST 9 L ALT 8 L Alkaline Phosphatase 121 H Total Protein 5.3 L Albumin 1.6 L Active Medications Generic Name Dose Route Start Last Admin Trade Name Freq PRN Reason Stop Dose Admin Aspirin 325 mg 11/21/18 10:00 11/23/18 09:07 Ecotrin - PO Not Given DAILY [facility] Cyclobenzaprine HCl 5 mg 11/19/18 16:30 11/23/18 09:06 Cyclobenzaprine Hcl PO 5 mg DAILY [facility] Administration Diazepam 5 mg 11/20/18 20:11 11/20/18 21:55 Valium - PO 5 mg HS PRN Administration ANXIETY Doxycycline Hyclate 100 mg 11/21/18 13:15 11/23/18 09:06 Vibramycin - PO 100 mg BID [facility] Administration Duloxetine HCl 30 mg 11/20/18 22:00 11/23/18 09:06 Cymbalta - PO 30 mg BID [facility] Administration Sodium Chloride 1,000 mls @ 125 mls/hr 11/23/18 10:15 Normal Saline - IV ASDIR ELKE Sodium Chloride 500 mls @ 500 mls/hr 11/23/18 09:16 Normal Saline - IV 11/23/18 10:15 ASDIR STA Lisinopril 10 mg 11/21/18 10:00 11/23/18 09:06 Prinivil PO 10 mg DAILY [facility] Administration Ondansetron HCl 4 mg 11/19/18 15:44 Zofran Injection IVPUSH Q6H PRN NAUSEA AND/OR VOMITING Oxybutynin Chloride 5 mg 11/20/18 22:00 11/23/18 05:32 Ditropan - PO 5 mg TID [facility] Administration Oxycodone HCl 20 mg 11/22/18 11:18 11/23/18 04:42 Roxicodone - PO 20 mg Q6H PRN Administration PAIN LEVEL 7 - 10 Pantoprazole Sodium 40 mg 11/21/18 10:00 11/23/18 09:06 Protonix - PO 40 mg DAILY [facility] Administration Pregabalin 100 mg 11/20/18 22:00 11/23/18 05:32 Lyrica - PO 100 mg TID ELKE Administration ASSESSMENT/PLAN: Patient is a 63 year old female with a significant past medical history of hypertension, anxiety, depression, chronic pain and chronic left hip left wound. She is here for left hip wound debridement. Surgery: Chronic left hip wound s/p Left hip I&D of left chronic wound Plan is for re-debridement of wound on today with Dr. Moya Continue pain medications and oral pain meds as needed with caution as patient is a fall risk Encourage to use incentive spirometer Card: Hypertension. BP stable. Start lisinopril Tachycardia. Will sent for ekg, trop and mag level. Hematology Acute blood loss anemia. s/p 1 unit of prbc with good response Neuro: Depression continue duloxetine, valium PRN fen Fluids: PO intake adequate Electrolytes: replete as indicated Nutrition: regular diet prophy on SCDs no a/c given 2/2 to anemia full code Visit type - Emergency Visit Emergency Visit: Yes ED Registration Date: 11/19/18 Care time: The patient presented to the Emergency Department on the above date and was hospitalized for further evaluation of their emergent condition. - New Patient This patient is new to me today: No - Critical Care Critical Care patient: No - Discharge Referral Referred to [facility] Med P.C.: No
[2018-11-23 09:50] LABS: MAGNESIUM 1.6 mg/dL (1.8-2.4)
[2018-11-23] MEDS ORDERED: MAGNESIUM SULF 50% (8.12 MEQ/2 ML-1 GM VIAL) IVPB ONE (10:00)
[2018-11-23 11:26] LABS: ANISOCYTOSIS 2+; MACROCYTOSIS 0; OVALOCYTE 1+; PLATELET ESTIMATE NORMAL; TEAR DROP CELLS 1+
--- NOTE | 2018-11-23 14:14 | EKG ---
Test Reason : Blood Pressure : / mmHG Vent. Rate : 112 BPM Atrial Rate : 112 BPM P-R Int : 134 ms QRS Dur : 072 ms QT Int : 308 ms P-R-T Axes : 061 043 056 degrees QTc Int : 420 ms SINUS TACHYCARDIA WITH PREMATURE SUPRAVENTRICULAR COMPLEXES NO PREVIOUS ECGS AVAILABLE Confirmed by PANFILO DUBON MD ([id number]) on 11/23/2018 2:14:28 PM Referred By: Albert Moya Confirmed By:PANFILO DUBON MD
[2018-11-23] MEDS: SODIUM CHLORIDE 1,000 ML IV SCH (15:53)
[2018-11-23] MEDS ORDERED: PROPOFOL 20 ML ONE ×2 (21:22)
[2018-11-23] MEDS ORDERED: LIDOCAINE HCL/PF 2% SDV 5ML VIAL ONE ×2 (21:25→22:02)
[2018-11-24] MEDS: OXYBUTYNIN CHLORIDE 5 MG TABLET PO SCH ×3 (06:14→22:05)
[2018-11-24] MEDS: PREGABALIN 100 MG CAPSULE PO SCH ×3 (06:14→22:05)
[2018-11-24] MEDS ORDERED: PT OWN MED DRAWER 7, Y5N ONE (09:23)
[2018-11-24] MEDS: DULoxetine HCL 30 MG CAPSULE.DR (FP) PO SCH ×2 (09:26→22:05)
[2018-11-24] MEDS: CYCLOBENZAPRINE HCL 5 MG TABLET PO SCH (09:26)
[2018-11-24] MEDS: PANTOPRAZOLE 40 MG TABLET (FP) PO SCH (09:26)
[2018-11-24] MEDS: ASPIRIN 325 MG ENTERIC COATED TABLET (FP) PO SCH (09:26)
[2018-11-24] MEDS: LISINOPRIL 10 MG TABLET (FP) PO SCH (09:26)
[2018-11-24] MEDS: oxyCODONE HCL 5 MG TABLET PO PRN (09:27)
[2018-11-24] MEDS: DOXYCYCLINE HYCLATE 100 MG CAPSULE PO SCH ×2 (09:27→22:05)
--- NOTE | 2018-11-24 10:38 | PN ---
Progress Note (short form) - Note Progress Note: Anesthesiology: POD #1 - s/p wound washout under general anesthesia. VSS. Pt. tolerated breakfast. No apparent anesthetic complications noted. Continue current care.
[2018-11-24] MEDS ORDERED: MAGNESIUM OXIDE 400 MG TABLET (FP) PO ONE (13:40)
--- NOTE | 2018-11-24 13:48 | PN ---
Physical Exam: SUBJECTIVE: Patient seen and examined at the bedside. awake, alert. OBJECTIVE: s/p pod #1 left wound washout Vital Signs Period Temp Pulse Resp BP Sys/Vargas Pulse Ox Last 24 Hr 97.8 F-99 F 54-106 14-20 91-134/50-77 100-100 GENERAL: The patient is awake, alert, in no acute distress. HEAD: Normal with no signs of trauma. EYES: PERRL, extraocular movements intact, sclera anicteric, conjunctiva clear. No ptosis. ENT: Ears normal, nares patent, oropharynx clear without exudates, moist mucous membranes. NECK: Trachea midline, full range of motion, supple. LUNGS: Breath sounds equal, clear to auscultation bilaterally, no wheezes HEART: tachycardia 130s ABDOMEN: Soft, nontender, nondistended, normoactive bowel sounds, no guarding EXTREMITIES: no edema. NEUROLOGICAL: calm, cooperative PSYCH: Normal mood, normal affect. SKIN: left hip wound debridement with wound vac Laboratory Results - last 24 hr 11/19/18 11:37 Blood Type A POSITIVE Antibody Screen Negative Crossmatch See Detail Active Medications Generic Name Dose Route Start Last Admin Trade Name Freq PRN Reason Stop Dose Admin Aspirin 325 mg 11/21/18 10:00 11/24/18 09:26 Ecotrin - PO 325 mg DAILY [facility] Administration Cyclobenzaprine HCl 5 mg 11/19/18 16:30 11/24/18 09:26 Cyclobenzaprine Hcl PO 5 mg DAILY [facility] Administration Diazepam 5 mg 11/20/18 20:11 11/20/18 21:55 Valium - PO 5 mg HS PRN Administration ANXIETY Doxycycline Hyclate 100 mg 11/21/18 13:15 11/24/18 09:27 Vibramycin - PO 100 mg BID [facility] Administration Duloxetine HCl 30 mg 11/20/18 22:00 11/24/18 09:26 Cymbalta - PO 30 mg BID [facility] Administration Sodium Chloride 1,000 mls @ 125 mls/hr 11/23/18 10:15 11/23/18 15:53 Normal Saline - IV Not Given ASDIR [facility] Lisinopril 10 mg 11/21/18 10:00 11/24/18 09:26 Prinivil PO 10 mg DAILY [facility] Administration Magnesium Oxide 800 mg 11/24/18 13:40 Mag-Ox - PO 11/24/18 13:41 ONCE ONE Ondansetron HCl 4 mg 11/19/18 15:44 Zofran Injection IVPUSH Q6H PRN NAUSEA AND/OR VOMITING Oxybutynin Chloride 5 mg 11/20/18 22:00 11/24/18 13:24 Ditropan - PO 5 mg TID [facility] Administration Oxycodone HCl 20 mg 11/22/18 11:18 11/24/18 09:27 Roxicodone - PO 20 mg Q6H PRN Administration PAIN LEVEL 7 - 10 Pantoprazole Sodium 40 mg 11/21/18 10:00 11/24/18 09:26 Protonix - PO 40 mg DAILY [facility] Administration Pregabalin 100 mg 11/20/18 22:00 11/24/18 13:25 Lyrica - PO 100 mg TID [facility] Administration ASSESSMENT/PLAN: Patient is a 63 year old female with a significant past medical history of hypertension, anxiety, depression, chronic pain and chronic left hip left wound. She is here for left hip wound debridement. Surgery: Chronic left hip wound POD #1 of left hip washout out. attached to wound vac. Continue pain medications and oral pain meds as needed with caution as patient is a fall risk Patient on high doses of oxycodone and oxycontin at home. will give her oxycodone 20mg prn as she was very lethargic on higher doses and had a recent fall during hospitalization. Encourage to use incentive spirometer Card: Hypertension. BP stable. On lisinopril Hematology Acute blood loss anemia. s/p 1 unit of prbc with good response Neuro: Depression continue duloxetine, valium PRN fen Fluids: PO intake adequate Electrolytes: replete as indicated Nutrition: regular diet prophy on SCDs no a/c given 2/2 to anemia full code Visit type - Emergency Visit Emergency Visit: Yes ED Registration Date: 11/19/18 Care time: The patient presented to the Emergency Department on the above date and was hospitalized for further evaluation of their emergent condition. - New Patient This patient is new to me today: No - Critical Care Critical Care patient: No - Discharge Referral Referred to [facility] Med P.C.: No
[2018-11-24] MEDS ORDERED: SENNOSIDES 8.6MG TABLET (FP) PO PRN (16:57)
[2018-11-24] MEDS: SODIUM CHLORIDE 1,000 ML IV SCH (16:58)
[2018-11-24 17:35] LABS: BASO % 0.6 % (0-2.0); EOS % 3.2 % (0-4.5); HEMATOCRIT 24.8 % (32.4-45.2); HEMOGLOBIN 8.4 GM/dL (10.7-15.3); LYMPH % 14.9 % (8-40); MCH 24.9 pg (25.7-33.7); MEAN CELL VOLUME 73.3 fl (80-96); MEAN PLT VOLUME 7.6 fl (7.5-11.1); MONO % 7.9 % (3.8-10.2); NEUT % 73.4 % (42.8-82.8); PLATELET COUNT 295 K/MM3 (134-434); RBC 3.39 M/mm3 (3.60-5.2); RDW 20.7 % (11.6-15.6); WHITE BLOOD COUNT 9.7 K/mm3 (4.0-10.0)
[2018-11-24 18:07] LABS: ALBUMIN 1.6 g/dl (3.4-5.0); ALK PHOS 108 U/L (45-117); ANION GAP 7 MMOL/L (8-16); BILIRUBIN,TOTAL 0.1 mg/dL (0.2-1); BLOOD UREA NITROGEN 15 mg/dL (7-18); CALCIUM 7.6 mg/dL (8.5-10.1); CHLORIDE 107 mmol/L (98-107); CO2 24 mmol/L (21-32); CREATININE 1.2 mg/dL (0.55-1.3); GLUCOSE,RANDOM 86 mg/dL (74-106); POTASSIUM 4.1 mmol/L (3.5-5.1); SGOT/AST 11 U/L (15-37); SGPT/ALT 10 U/L (13-61); SODIUM 138 mmol/L (136-145); TOT PROT 5.2 g/dl (6.4-8.2)
--- NOTE | 2018-11-24 18:23 | PN ---
Progress Note (short form) - Note Progress Note: POD#1 VAC functioning well For ?delayed primary closure Monday
[2018-11-24] MEDS: DOCUSATE SODIUM 100 MG CAPSULE (FP) PO SCH (22:05)
[2018-11-25] MEDS: oxyCODONE HCL 5 MG TABLET PO PRN ×2 (06:22→13:19)
[2018-11-25] MEDS: DOCUSATE SODIUM 100 MG CAPSULE (FP) PO SCH ×3 (06:23→21:47)
[2018-11-25] MEDS: OXYBUTYNIN CHLORIDE 5 MG TABLET PO SCH ×3 (06:23→21:47)
[2018-11-25] MEDS: PREGABALIN 100 MG CAPSULE PO SCH ×3 (06:23→21:47)
[2018-11-25] MEDS ORDERED: PT OWN MED DRAWER 7, Y5N ONE (09:44)
[2018-11-25] MEDS: PANTOPRAZOLE 40 MG TABLET (FP) PO SCH (09:49)
[2018-11-25] MEDS: LISINOPRIL 10 MG TABLET (FP) PO SCH (09:49)
[2018-11-25] MEDS: DULoxetine HCL 30 MG CAPSULE.DR (FP) PO SCH ×2 (09:50→21:47)
[2018-11-25] MEDS: ASPIRIN 325 MG ENTERIC COATED TABLET (FP) PO SCH (09:50)
[2018-11-25] MEDS: CYCLOBENZAPRINE HCL 5 MG TABLET PO SCH (09:50)
[2018-11-25] MEDS: POLYETHYLENE GLYCOL 3350 119 GM BTL PO SCH (09:50)
[2018-11-25] MEDS: DOXYCYCLINE HYCLATE 100 MG CAPSULE PO SCH ×2 (09:51→21:48)
[2018-11-25] MEDS: SODIUM CHLORIDE 1,000 ML IV SCH (14:02)
--- NOTE | 2018-11-25 16:22 | PN ---
Physical Exam: SUBJECTIVE: Patient seen and examined OBJECTIVE: wound vac draining, left surgical side appears slightly more swollen today RN called surgeon and made aware patient for surgey tomorrow she is asking for higher pain medications (she is on oxycontin 80mg TID at home and has received this dose on previous hospitalization), will increase oxycodone to 30mg again, with caution and start oxycontin 20mg tid. maintain fall precuations on the high dose Vital Signs Period Temp Pulse Resp BP Sys/Vargas Pulse Ox Last 24 Hr 98 F-98.6 F 77-98 16-19 116-139/68-69 GENERAL: The patient is awake, alert, in no acute distress. HEAD: Normal with no signs of trauma. EYES: PERRL, extraocular movements intact, sclera anicteric, conjunctiva clear. No ptosis. ENT: Ears normal, nares patent, oropharynx clear without exudates, moist mucous membranes. NECK: Trachea midline, full range of motion, supple. LUNGS: Breath sounds equal, clear to auscultation bilaterally, no wheezes HEART: tachycardia 130s ABDOMEN: Soft, nontender, nondistended, normoactive bowel sounds, no guarding EXTREMITIES: no edema. NEUROLOGICAL: calm, cooperative PSYCH: Normal mood, normal affect. SKIN: left hip wound debridement with wound vac Laboratory Results - last 24 hr 11/24/18 11/24/18 16:50 16:50 WBC 9.7 RBC 3.39 L Hgb 8.4 L Hct 24.8 L MCV 73.3 L MCH 24.9 L MCHC 34.0 RDW 20.7 H Plt Count 295 MPV 7.6 Absolute Neuts (auto) 7.1 Neutrophils % 73.4 Lymphocytes % 14.9 Monocytes % 7.9 Eosinophils % 3.2 Basophils % 0.6 Nucleated RBC % 0 Sodium 138 Potassium 4.1 Chloride 107 Carbon Dioxide 24 Anion Gap 7 L BUN 15 Creatinine 1.2 Creat Clearance w eGFR 45.37 Random Glucose 86 Calcium 7.6 L Total Bilirubin 0.1 L AST 11 L ALT 10 L Alkaline Phosphatase 108 Total Protein 5.2 L Albumin 1.6 L Active Medications Generic Name Dose Route Start Last Admin Trade Name Freq PRN Reason Stop Dose Admin Aspirin 325 mg 11/21/18 10:00 11/25/18 09:50 Ecotrin - PO 325 mg DAILY [facility] Administration Cyclobenzaprine HCl 5 mg 11/19/18 16:30 11/25/18 09:50 Cyclobenzaprine Hcl PO 5 mg DAILY [facility] Administration Diazepam 5 mg 11/20/18 20:11 11/20/18 21:55 Valium - PO 5 mg HS PRN Administration ANXIETY Docusate Sodium 100 mg 11/24/18 22:00 11/25/18 14:01 Colace - PO 100 mg TID [facility] Administration Doxycycline Hyclate 100 mg 11/21/18 13:15 11/25/18 09:51 Vibramycin - PO 100 mg BID [facility] Administration Duloxetine HCl 30 mg 11/20/18 22:00 11/25/18 09:50 Cymbalta - PO 30 mg BID [facility] Administration Sodium Chloride 1,000 mls @ 125 mls/hr 11/23/18 10:15 11/25/18 14:02 Normal Saline - IV Not Given ASDIR [facility] Lisinopril 10 mg 11/21/18 10:00 11/25/18 09:49 Prinivil PO 10 mg DAILY [facility] Administration Ondansetron HCl 4 mg 11/19/18 15:44 Zofran Injection IVPUSH Q6H PRN NAUSEA AND/OR VOMITING Oxybutynin Chloride 5 mg 11/20/18 22:00 11/25/18 14:02 Ditropan - PO 5 mg TID [facility] Administration Oxycodone HCl 30 mg 11/25/18 15:16 Roxicodone - PO Q6H PRN PAIN LEVEL 7 - 10 Pantoprazole Sodium 40 mg 11/21/18 10:00 11/25/18 09:49 Protonix - PO 40 mg DAILY [facility] Administration Polyethylene Glycol 17 gm 11/25/18 10:00 11/25/18 09:50 Miralax (For Daily Use) - PO Not Given DAILY [facility] Pregabalin 100 mg 11/20/18 22:00 11/25/18 14:02 Lyrica - PO 100 mg TID [facility] Administration Senna 2 tab 11/24/18 16:57 Senna - PO HS PRN CONSTIPATION ASSESSMENT/PLAN: Patient is a 63 year old female with a significant past medical history of hypertension, anxiety, depression, chronic pain and chronic left hip left wound. She is here for left hip wound debridement. Surgery: Chronic left hip wound POD #2 of left hip washout out. attached to wound vac. left leg thigh appears more swollen today. wound vac checked and it is draining. surgery made aware. Continue pain medications and oral pain meds as needed with caution as patient is a fall risk Encourage to use incentive spirometer surgery follow up Card: Hypertension. BP stable. On lisinopril Hematology Acute blood loss anemia. s/p 1 unit of prbc with good response Neuro: Depression continue duloxetine, valium PRN fen Fluids: PO intake adequate Electrolytes: replete as indicated Nutrition: regular diet prophy on SCDs no a/c given 2/2 to anemia full code Visit type - Emergency Visit Emergency Visit: Yes ED Registration Date: 11/19/18 Care time: The patient presented to the Emergency Department on the above date and was hospitalized for further evaluation of their emergent condition. - New Patient This patient is new to me today: No - Critical Care Critical Care patient: No - Discharge Referral Referred to [facility] Med P.C.: No
[2018-11-25] MEDS ORDERED: FLUCONAZOLE 100 MG TABLET (UD) PO ONE (16:26)
[2018-11-25] MEDS: oxyCODONE HCL 20 MG SUSTAINED ACTING TABLET PO SCH (21:47)
[2018-11-26] MEDS: PREGABALIN 100 MG CAPSULE PO SCH ×3 (05:48→21:50)
[2018-11-26] MEDS: oxyCODONE HCL 20 MG SUSTAINED ACTING TABLET PO SCH ×3 (05:48→22:00)
[2018-11-26] MEDS: OXYBUTYNIN CHLORIDE 5 MG TABLET PO SCH ×3 (05:48→21:50)
[2018-11-26] MEDS: DOCUSATE SODIUM 100 MG CAPSULE (FP) PO SCH ×3 (05:48→21:50)
[2018-11-26 06:15] LABS: BASO % 0.8 % (0-2.0); EOS % 4.3 % (0-4.5); HEMATOCRIT 27.2 % (32.4-45.2); HEMOGLOBIN 8.9 GM/dL (10.7-15.3); LYMPH % 17.7 % (8-40); MCH 23.9 pg (25.7-33.7); MCHC 32.5 g/dl (32.0-36.0); MEAN CELL VOLUME 73.3 fl (80-96); MEAN PLT VOLUME 7.6 fl (7.5-11.1); MONO % 7.5 % (3.8-10.2); NEUT % 69.7 % (42.8-82.8); PLATELET COUNT 313 K/MM3 (134-434); RBC 3.71 M/mm3 (3.60-5.2); RDW 20.5 % (11.6-15.6); WHITE BLOOD COUNT 7.4 K/mm3 (4.0-10.0)
[2018-11-26 06:54] LABS: ALBUMIN 1.7 g/dl (3.4-5.0); ALK PHOS 100 U/L (45-117); ANION GAP 9 MMOL/L (8-16); BILIRUBIN,TOTAL 0.2 mg/dL (0.2-1); BLOOD UREA NITROGEN 14 mg/dL (7-18); CALCIUM 8.1 mg/dL (8.5-10.1); CHLORIDE 108 mmol/L (98-107); CO2 23 mmol/L (21-32); CREATININE 0.7 mg/dL (0.55-1.3); GLUCOSE,RANDOM 91 mg/dL (74-106); POTASSIUM 4.2 mmol/L (3.5-5.1); SGOT/AST 10 U/L (15-37); SGPT/ALT 7 U/L (13-61); SODIUM 140 mmol/L (136-145); TOT PROT 5.5 g/dl (6.4-8.2)
--- NOTE | 2018-11-26 08:58 | OP ---
DATE OF OPERATION: 11/19/2018 DATE OF DICTATION: 11/23/2018 SURGEON: Albert Moya MD FOOD QUALITY TECHNICIAN: PREOPERATIVE DIAGNOSIS: Septic hip wound. POSTOPERATIVE DIAGNOSIS: Septic hip wound. OPERATION PERFORMED: 1. Removal of wound vacuum-assisted closure. 2. Incision, drainage, washout, left proximal L4-5 wound, insertion of new wound vacuum-assisted closure. ANESTHESIA: General. OPERATION DETAILS: Patient correctly identified, brought to the operating room. The left lower extremity was prepped and draped in the routine manner with Betadine scrub solution, wiped off with alcohol and DuraPrep applied. The patient was placed into the lateral decubitus position, left side up. Timeout was called. The original wound VAC was removed. The tissues appeared healthy, beefy red in color. The tissues were washed liberally with 5 L of saline. They were also scrubbed with Betadine scrub to rid the tissues of biofilm. The large wound VACs were inserted and the wound suction device applied. No complications. Plan for hopeful delayed primary closure in 72 hours. MD OSVALDO Oconnor/[id number]
[2018-11-26] MEDS ORDERED: PT OWN MED DRAWER 7, Y5N ONE (09:02)
[2018-11-26] MEDS: LISINOPRIL 10 MG TABLET (FP) PO SCH (09:29)
[2018-11-26] MEDS: CYCLOBENZAPRINE HCL 5 MG TABLET PO SCH (09:30)
[2018-11-26] MEDS: ASPIRIN 325 MG ENTERIC COATED TABLET (FP) PO SCH (09:30)
[2018-11-26] MEDS: POLYETHYLENE GLYCOL 3350 119 GM BTL PO SCH (09:30)
[2018-11-26] MEDS: oxyCODONE HCL 5 MG TABLET PO PRN ×2 (09:30→19:19)
[2018-11-26] MEDS: DOXYCYCLINE HYCLATE 100 MG CAPSULE PO SCH ×2 (09:30→21:50)
[2018-11-26] MEDS: DULoxetine HCL 30 MG CAPSULE.DR (FP) PO SCH ×2 (09:30→21:50)
[2018-11-26] MEDS: PANTOPRAZOLE 40 MG TABLET (FP) PO SCH (09:30)
[2018-11-26] MEDS: SODIUM CHLORIDE 1,000 ML IV SCH (09:39)
--- NOTE | 2018-11-26 11:16 | SURG ---
Surgery Chrome Plater Helper Note Chrome Plater Helper: Philip Rodríguez PA-C (Suzy) Date of Service: 11/23/18 Diagnosis: Septic hip Procedure: Removal of wound vacuum-assisted closure Incision, drainage, washout, left proximal L4-5 wound, insertion of new wound vacuum-assisted closure I was present for the entirety of the operative procedure. For further detail, please refer to operative report. Visit type - Case Type Case Type: Scheduled - Emergency Emergency Visit: No - New patient This patient is new to me today: Yes Date on this admission: 11/26/18 - Critical Care Critical Care patient: No
[2018-11-26] MEDS ORDERED: ROCURONIUM BROMIDE 50 MG/5 ML VIAL ONE (12:51)
[2018-11-26] MEDS ORDERED: PROPOFOL 20 ML ONE ×2 (12:51→22:47)
[2018-11-26] MEDS ORDERED: SUCCINYLCHOLINE CHLORIDE 200 MG/10 ML VIAL ONE (12:51)
[2018-11-26] MEDS ORDERED: fentaNYL CITRATE 250 MCG/5 ML VIAL ONE ×2 (12:51→22:47)
[2018-11-26] MEDS ORDERED: DEXAMETHASONE SOD PHOSPHATE 4 MG/1 ML VIAL ONE ×2 (12:52→23:22)
[2018-11-26] MEDS ORDERED: MIDAZOLAM HCL 2 MG/2 ML SINGLE DOSE VIAL ONE (12:52)
[2018-11-26] MEDS ORDERED: LIDOCAINE HCL/PF 2% SDV 5ML VIAL ONE ×2 (12:52→22:47)
--- NOTE | 2018-11-26 18:38 | PN ---
Physical Exam: SUBJECTIVE: Patient seen and examined at the bedside OBJECTIVE: for the OR fo removal of left wound vacuum and closure. Vital Signs Period Temp Pulse Resp BP Sys/Vargas Pulse Ox Last 24 Hr 98.0 F-98.3 F 72-100 18-20 115-142/58-76 99 GENERAL: The patient is awake, alert, in no acute distress. HEAD: Normal with no signs of trauma. EYES: PERRL, extraocular movements intact, sclera anicteric, conjunctiva clear. No ptosis. ENT: Ears normal, nares patent, oropharynx clear without exudates, moist mucous membranes. NECK: Trachea midline, full range of motion, supple. LUNGS: Breath sounds equal, clear to auscultation bilaterally, no wheezes HEART: rrr ABDOMEN: Soft, nontender, nondistended, normoactive bowel sounds, no guarding EXTREMITIES: no edema. NEUROLOGICAL: calm, cooperative, at times sleepy and lethargic. PSYCH: Normal mood, normal affect. SKIN: left hip wound vac Laboratory Results - last 24 hr 11/26/18 11/26/18 05:20 05:20 WBC 7.4 RBC 3.71 Hgb 8.9 L Hct 27.2 L MCV 73.3 L MCH 23.9 L MCHC 32.5 RDW 20.5 H Plt Count 313 MPV 7.6 Absolute Neuts (auto) 5.2 Neutrophils % 69.7 Lymphocytes % 17.7 Monocytes % 7.5 Eosinophils % 4.3 Basophils % 0.8 Nucleated RBC % 0 Sodium 140 Potassium 4.2 Chloride 108 H Carbon Dioxide 23 Anion Gap 9 BUN 14 Creatinine 0.7 Creat Clearance w eGFR > 60 Random Glucose 91 Calcium 8.1 L Magnesium 2.0 Total Bilirubin 0.2 AST 10 L ALT 7 L Alkaline Phosphatase 100 Total Protein 5.5 L Albumin 1.7 L Active Medications Generic Name Dose Route Start Last Admin Trade Name Freq PRN Reason Stop Dose Admin Aspirin 325 mg 11/21/18 10:00 11/26/18 09:30 Ecotrin - PO 325 mg DAILY ELKE Administration Cyclobenzaprine HCl 5 mg 11/19/18 16:30 11/26/18 09:30 Cyclobenzaprine Hcl PO 5 mg DAILY ELKE Administration Diazepam 5 mg 11/20/18 20:11 11/20/18 21:55 Valium - PO 5 mg HS PRN Administration ANXIETY Docusate Sodium 100 mg 11/24/18 22:00 11/26/18 14:53 Colace - PO Not Given TID [facility] Doxycycline Hyclate 100 mg 11/21/18 13:15 11/26/18 09:30 Vibramycin - PO 100 mg BID ELKE Administration Duloxetine HCl 30 mg 11/20/18 22:00 11/26/18 09:30 Cymbalta - PO 30 mg BID [facility] Administration Sodium Chloride 1,000 mls @ 125 mls/hr 11/23/18 10:15 11/26/18 09:39 Normal Saline - IV Not Given ASDIR [facility] Lisinopril 10 mg 11/21/18 10:00 11/26/18 09:29 Prinivil PO 10 mg DAILY [facility] Administration Ondansetron HCl 4 mg 11/19/18 15:44 Zofran Injection IVPUSH Q6H PRN NAUSEA AND/OR VOMITING Oxybutynin Chloride 5 mg 11/20/18 22:00 11/26/18 14:53 Ditropan - PO Not Given TID [facility] Oxycodone HCl 30 mg 11/25/18 15:16 11/26/18 09:30 Roxicodone - PO 30 mg Q6H PRN Administration PAIN LEVEL 7 - 10 Oxycodone HCl 20 mg 11/25/18 22:00 11/26/18 14:52 Oxycontin - PO Not Given TID [facility] Pantoprazole Sodium 40 mg 11/21/18 10:00 11/26/18 09:30 Protonix - PO 40 mg DAILY [facility] Administration Polyethylene Glycol 17 gm 11/25/18 10:00 11/26/18 09:30 Miralax (For Daily Use) - PO Not Given DAILY [facility] Pregabalin 100 mg 11/20/18 22:00 11/26/18 14:53 Lyrica - PO Not Given TID [facility] Senna 2 tab 11/24/18 16:57 Senna - PO HS PRN CONSTIPATION ASSESSMENT/PLAN: Patient is a 63 year old female with a significant past medical history of hypertension, anxiety, depression, chronic pain and chronic left hip left wound. She is here for left hip wound debridement and closure. Surgery: Chronic left hip wound Has been treated with left wound vac. For the OR today for wound closure. Post op care: bowel regimen, incentive spirometer, pain management. surgery follow up and recommendations. Card: Hypertension. BP stable. On lisinopril Hematology Acute blood loss anemia. s/p 1 unit of prbc with good response Neuro: Depression continue duloxetine, valium PRN Chronic pain/back pain and left hip pain. On high dose oxycodone and oxycontin at home. These medications have been decreased here as she had a recent fall during hospitalization and she is lethargic at times and sleepy most of the day when on these medications. Would consider decreasing the home doses when she is discharged. fen Fluids: PO intake adequate Electrolytes: replete as indicated Nutrition: regular diet prophy on SCDs no a/c given 2/2 to anemia full code Visit type - Emergency Visit Emergency Visit: Yes ED Registration Date: 11/19/18 Care time: The patient presented to the Emergency Department on the above date and was hospitalized for further evaluation of their emergent condition. - New Patient This patient is new to me today: No - Critical Care Critical Care patient: No - Discharge Referral Referred to [facility] No
[2018-11-26] MEDS ORDERED: PHENYLEPHRINE HCL 10 MG/1 ML SINGLE DOSE VIAL ONE (23:22)
[2018-11-26] MEDS ORDERED: ONDANSETRON 4 MG/2 ML VIAL IVPUSH PRN (23:37)
[2018-11-26] MEDS ORDERED: LACTATED RINGERS SOLUTION 1,000 ML IV SCH (23:45)
[2018-11-27] MEDS ORDERED: LACTATED RINGERS SOLUTION 250 ML IV ONE ×2 (00:15→00:30)
[2018-11-27] MEDS ORDERED: diazePAM 5 MG TABLET PO PRN (03:47)
[2018-11-27] MEDS ORDERED: SENNOSIDES 8.6MG TABLET (FP) PO PRN (03:47)
[2018-11-27] MEDS: SODIUM CHLORIDE 1,000 ML IV SCH (03:58)
[2018-11-27] MEDS: DOCUSATE SODIUM 100 MG CAPSULE (FP) PO SCH ×3 (06:15→21:10)
[2018-11-27] MEDS: oxyCODONE HCL 20 MG SUSTAINED ACTING TABLET PO SCH ×3 (06:16→21:10)
[2018-11-27] MEDS: OXYBUTYNIN CHLORIDE 5 MG TABLET PO SCH ×3 (06:16→21:10)
[2018-11-27] MEDS: PREGABALIN 100 MG CAPSULE PO SCH ×3 (06:16→21:10)
[2018-11-27] MEDS ORDERED: PT OWN MED DRAWER 7, Y5N ONE (09:37)
[2018-11-27] MEDS: oxyCODONE HCL 5 MG TABLET PO PRN ×2 (09:40→17:33)
[2018-11-27] MEDS: DULoxetine HCL 30 MG CAPSULE.DR (FP) PO SCH ×2 (09:42→21:10)
[2018-11-27] MEDS: CYCLOBENZAPRINE HCL 5 MG TABLET PO SCH (09:42)
[2018-11-27] MEDS: PANTOPRAZOLE 40 MG TABLET (FP) PO SCH (09:42)
[2018-11-27] MEDS: DOXYCYCLINE HYCLATE 100 MG CAPSULE PO SCH ×2 (09:43→17:33)
[2018-11-27] MEDS: LISINOPRIL 10 MG TABLET (FP) PO SCH (09:51)
[2018-11-27] MEDS: POLYETHYLENE GLYCOL 3350 119 GM BTL PO SCH (09:51)
[2018-11-27] MEDS: ASPIRIN 325 MG ENTERIC COATED TABLET (FP) PO SCH (09:51)
[2018-11-27 10:38] LABS: BASO % 0.2 % (0-2.0); EOS % 0.1 % (0-4.5); HEMATOCRIT 28.2 % (32.4-45.2); HEMOGLOBIN 9.2 GM/dL (10.7-15.3); LYMPH % 4.7 % (8-40); MCH 24.1 pg (25.7-33.7); MCHC 32.5 g/dl (32.0-36.0); MONO % 3.2 % (3.8-10.2); NEUT % 91.8 % (42.8-82.8); PLATELET COUNT 517 K/MM3 (134-434); RDW 20.7 % (11.6-15.6); WHITE BLOOD COUNT 12.7 K/mm3 (4.0-10.0)
--- NOTE | 2018-11-27 10:49 | PN ---
Progress Note (short form) - Note Progress Note: POD #1 Left hip washout and vac application. Patient with no complaints. OOB and tolerating diet. Vital Signs Temp 98.3 F 11/27/18 09:32 Pulse 85 11/27/18 09:32 Resp 18 11/27/18 09:32 BP 117/68 11/27/18 09:32 Pulse Ox 95 11/27/18 01:48 Intake & Output 11/26/18 11/26/18 11/27/18 11:59 23:59 11:59 Intake Total 0 1000 850 Balance 0 1000 850 Weight 135 lb Intake: IV 0 700 400 Normal Saline - 1,000 ml 400 @ 125 mls/hr IV ASDIR ELKE Rx#:[id number] Oral 300 450 Other: Voiding Method Bedside Commode Toilet Toilet # Unmeasured Voids Void 1 1 1 Bowel Movement No No Height 5 ft 4 in Body Mass Index (BMI) 23.1 CBC, BMP 11/27/18 09:50 11/27/18 09:50 PE: A&Ox3, NAD, moving all extremities without limitation unlabored resp on RA Wound vac to right hip with no evidence of leaks in good position Problem List - Problems (1) Wound, open, hip or thigh Assessment/Plan: S/p Wash out x2 with wound vac application 1) ABX per ID 2) Continue wound vac as ordered 3) Plan for delayed closure Sunday 12/03 4) OK to send home with wound vac- leave in place and change containers. 5) Follow up with Dr Moya for Surgical plan-closure in OR next Monday. Evaluation and plan discussed with Dr Moya Code(s): [id number] -
[2018-11-27 11:02] LABS: ALK PHOS 111 U/L (45-117); ANION GAP 8 MMOL/L (8-16); BILIRUBIN,TOTAL 0.2 mg/dL (0.2-1); BLOOD UREA NITROGEN 16 mg/dL (7-18); CALCIUM 8.3 mg/dL (8.5-10.1); CHLORIDE 108 mmol/L (98-107); CO2 23 mmol/L (21-32); CREATININE 0.9 mg/dL (0.55-1.3); GLUCOSE,RANDOM 111 mg/dL (74-106); MAGNESIUM 1.7 mg/dL (1.8-2.4); POTASSIUM 4.5 mmol/L (3.5-5.1); SGOT/AST 13 U/L (15-37); SGPT/ALT 13 U/L (13-61); SODIUM 139 mmol/L (136-145); TOT PROT 6.4 g/dl (6.4-8.2)
--- NOTE | 2018-11-27 11:26 | PN ---
Progress Note (short form) - Note Progress Note: Pt POD1 s/p I&D of hip with washout. Doing well, no c/o. No anesthetic issues/ complications noted.
[2018-11-27 12:07] LABS: ANISOCYTOSIS 1+; MACROCYTOSIS 0; PLATELET ESTIMATE INCREASED
--- NOTE | 2018-11-27 14:03 | OP ---
DATE OF OPERATION: 11/23/2018 SURGEON: Albert Moya MD PREOPERATIVE DIAGNOSIS: Septic spine root being treated with a wound vacuum assisted closure for incision and drainage and washout. POSTOPERATIVE DIAGNOSIS: Septic spine root being treated with a wound vacuum assisted closure for incision and drainage and washout. OPERATION PERFORMED: Patient correctly identified, brought into the operating room. Left lower extremity was prepped and draped in the routine manner with Betadine scrub solution, alcohol wiped off the skin, under general anesthesia in lateral decubitus position, left side up. The wound VAC originally seated had been removed. Tissues were cleansed with 5 L of saline and Betadine scrub. A new wound VAC inserted. Patient was extricated out of the operating room with no complications. Albert Moya MD [id number]
--- NOTE | 2018-11-27 14:25 | OP ---
DATE OF OPERATION: DATE OF DICTATION: 11/26/2018 SURGEON: Albert Moya MD SUPERVISOR DAIRY SANITATION: CYNTHIA Carreon PREOPERATIVE DIAGNOSIS: Septic spine wound, for washout and wound VAC. POSTOPERATIVE DIAGNOSIS: Septic spine wound, for washout and wound VAC. OPERATION PERFORMED: 1. Removal of wound VAC. 2. Washout. 3. Reinsertion of wound VAC. ANESTHESIA: General. ANTIBIOTICS GIVEN: None. OPERATION DETAILS: Timeout was called. Patient placed in the lateral decubitus position, left side up. The skin was prepped with Betadine scrub solution, wiped off with alcohol, DuraPrep applied. Window drape applied. Wound VAC originally inserted was removed. Cultures were taken microscopy culture and sensitivity. The wound was thoroughly lavaged with 5 L of saline. Betadine scrub was utilized to washout the soft tissues and remove all biofilm from the metal as well as the underlying soft tissue elements. The tissues were markedly improved in the fact that they were healthy, red, and the cavity definitely closing. The problem is the undefinable odor. This correlates with the bacteriology. It was because of this that we elected not to go ahead with a delayed primary closure. The wound VAC was inserted. It was sealed and working well by the time the patient was extricated out of the operating room. No complications. Albert Moya MD [id number] MTDD
--- NOTE | 2018-11-27 15:23 | DS ---
"Physical Examination Vital Signs: Vital Signs Temperature 98.3 F 11/27/18 09:32 Pulse Rate 85 11/27/18 09:32 Respiratory Rate 18 11/27/18 09:32 Blood Pressure 117/68 11/27/18 09:32 O2 Sat by Pulse Oximetry (%) 96 11/27/18 09:00 Constitutional: Yes: No Distress, Anxious Eyes: Yes: Conjunctiva Clear, EOM Intact, PERRL HENT: Yes: Atraumatic, Normocephalic, Other (POOR DENTITION) Neck: Yes: Supple Cardiovascular: Yes: Regular Rate and Rhythm Respiratory: Yes: Regular, CTA Bilaterally Labs: CBC, BMP 11/27/18 09:50 11/27/18 09:50 Discharge Summary Reason For Visit: LOOSENING OF INTERNAL LEFT HIP Current Active Problems Wound, open, hip or thigh (Acute) Condition: Stable - Instructions Diet, Activity, Other Instructions: Dr. Albert Moya's Discharge Instructions Post Operative Instructions Physical activity Resume your normal everyday activity as tolerated no heavy lifting or exercise until seen by your surgeon. You may walk unlimited amounts of and climb stairs. You may resume driving the car when you feel safe and comfortable behind the wheel. Wound care If you have a bandage, leave it on, and keep dry for 48 - 72 hours. After that time discard the outer bandage. If there are tapes on the skin under the outer bandage, leave them in place. They will peel off in the next 7 to 10 days. Do Not peel them off. You may shower 2 days after surgery. If there are tapes present on the skin, they can get wet. Diet There are no dietary restrictions. Eat healthy, high-fiber foods. Drink 6 to 8 glasses of liquid each day. This will assist in keeping your bowels are regular. Pain management You may take Tylenol or acetaminophen or Ibuprofen (for example, Motrin, Advil etc.) Any pain prescription medication ordered should be taken as prescribed for moderate to severe pain. Call Dr. Moya for any of the following: Severe pain not relieved by medication Fever of 101 or higher Excessive bleeding or drainage on dressing Call the office for a post operative appointment in 7 - 10 days. [place] Checked prior too escribe of narcotics for pain management This report was requested by: Michael Goncalves | Reference #: [id number] 11/02/2018 Oxycontin er 80 mg tablet / 90 tablets / Albert Moya MS MD - Home Medications Comprehensive Discharge Medication List: Ambulatory Orders Diazepam [Valium] 5 mg PO HS PRN 08/24/18 Doxycycline Hyclate 100 mg PO BID 08/24/18 Duloxetine HCl [Cymbalta] 30 mg PO BID 08/24/18 Fluconazole 200 mg PO DAILY 08/24/18 Levofloxacin [Levaquin] 500 mg PO DAILY 08/24/18 Lisinopril 10 mg PO DAILY 08/24/18 Omeprazole 40 mg PO DAILY 08/24/18 Oxybutynin Chloride 5 mg PO TID 08/24/18 Oxycodone HCl 30 mg PO ASDIR PRN 08/24/18 Pregabalin [Lyrica] 100 mg PO TID 08/24/18 oxyCODONE SR [Oxycontin] 80 mg PO TID 08/24/18 Aspirin [Aspirin EC] 325 mg PO DAILY 09/12/18 - Discharge Referral Referred to [facility] No"
--- NOTE | 2018-11-27 18:02 | PN ---
Progress Note, Physician History of Present Illness: s/p Left hip washout and vac application. pt would like to be d/felisa home and return for scheduled wound closure. pt presented to hospital with wound vac, however, hospital staff unable to locate pts wound vac for discharge. - Current Medication List Current Medications: Active Medications Aspirin (Ecotrin -) 325 mg PO DAILY [facility] Last Admin: 11/27/18 09:51 Dose: 325 mg Cyclobenzaprine HCl (Cyclobenzaprine Hcl) 5 mg PO DAILY [facility] Last Admin: 11/27/18 09:42 Dose: 5 mg Diazepam (Valium -) 5 mg PO HS PRN PRN Reason: ANXIETY Docusate Sodium (Colace -) 100 mg PO TID [facility] Last Admin: 11/27/18 13:59 Dose: 100 mg Doxycycline Hyclate (Vibramycin -) 100 mg PO BID@1000,1800 [facility] Last Admin: 11/27/18 17:33 Dose: 100 mg Duloxetine HCl (Cymbalta -) 30 mg PO BID [facility] Last Admin: 11/27/18 09:42 Dose: 30 mg Sodium Chloride (Normal Saline -) 1,000 mls @ 125 mls/hr IV ASDIR [facility] Last Admin: 11/27/18 03:58 Dose: Not Given Lisinopril (Prinivil) 10 mg PO DAILY [facility] Last Admin: 11/27/18 09:51 Dose: 10 mg Oxybutynin Chloride (Ditropan -) 5 mg PO TID [facility] Last Admin: 11/27/18 13:58 Dose: 5 mg Oxycodone HCl (Roxicodone -) 30 mg PO Q6H PRN PRN Reason: PAIN LEVEL 7 - 10 Last Admin: 11/27/18 17:33 Dose: 30 mg Oxycodone HCl (Oxycontin -) 20 mg PO TID [facility] Last Admin: 11/27/18 13:59 Dose: 20 mg Pantoprazole Sodium (Protonix -) 40 mg PO DAILY [facility] Last Admin: 11/27/18 09:42 Dose: 40 mg Polyethylene Glycol (Miralax (For Daily Use) -) 17 gm PO DAILY [facility] Last Admin: 11/27/18 09:51 Dose: Not Given Pregabalin (Lyrica -) 100 mg PO TID [facility] Last Admin: 11/27/18 13:59 Dose: 100 mg Senna (Senna -) 2 tab PO HS PRN PRN Reason: CONSTIPATION - Objective Vital Signs: Vital Signs Temperature 99 F 11/27/18 17:18 Pulse Rate 109 H 11/27/18 17:18 Respiratory Rate 18 11/27/18 17:18 Blood Pressure 106/65 11/27/18 17:18 O2 Sat by Pulse Oximetry (%) 96 11/27/18 09:00 Constitutional: Yes: Well Nourished Eyes: Yes: PERRL HENT: Yes: Atraumatic, Normocephalic Neck: Yes: Supple Cardiovascular: Yes: Tachycardia Respiratory: Yes: Regular, CTA Bilaterally Gastrointestinal: Yes: Soft, Abdomen, Obese ...Rectal Exam: Yes: Deferred Musculoskeletal: Yes: Joint Stiffness, Muscle Weakness, Other (Right leg longer than left) Extremities: Yes: Shortened (Left leg) Edema: No Peripheral Pulses WNL: Yes Peripheral Pulses: Left Radial: 2+, Right Radial: 2+ Wound/Incision: Yes: Other (Left hip with wound vac) Neurological: Yes: Alert, Oriented, Unsteady Gait ...Motor Strength: LLE (4/5), RLE (4/5) Psychiatric: Yes: Alert, Oriented Labs: CBC, BMP 11/27/18 09:50 11/27/18 09:50 INR, PTT INR 1.08 (0.83-1.09) 11/23/18 06:00 Problem List - Problems (1) Prophylactic measure Assessment/Plan: virbamycin 100mg BID as suppressive therapy bowel regimen with senna and colace Miralax PRN constipation Code(s): Z29.9 - ENCOUNTER FOR PROPHYLACTIC MEASURES, UNSPECIFIED (2) Depression Assessment/Plan: cymbalta 30mg BID valium 5mg qhs Code(s): F32.9 - MAJOR DEPRESSIVE DISORDER, SINGLE EPISODE, UNSPECIFIED (3) HTN (hypertension) Assessment/Plan: cardiac diet Lisinopril 10mg daily Code(s): I10 - ESSENTIAL (PRIMARY) HYPERTENSION (4) Chronic pain Assessment/Plan: oxycontin 20mg TID PRN oxycodone Lyrica 100mg TID Code(s): G89.29 - OTHER CHRONIC PAIN Impression/Plan Impression/Plan: urinary incontinence -oxybutynin 5mg tid Visit type - Emergency Visit Emergency Visit: No - New Patient This patient is new to me today: Yes Date on this admission: 11/27/18 - Critical Care Critical Care patient: No - Discharge Referral Referred to [facility] Med P.C.: No
[2018-11-28] MEDS: oxyCODONE HCL 5 MG TABLET PO PRN ×2 (00:13→07:50)
[2018-11-28] MEDS: SODIUM CHLORIDE 1,000 ML IV SCH (06:19)
[2018-11-28] MEDS: OXYBUTYNIN CHLORIDE 5 MG TABLET PO SCH ×3 (06:20→22:19)
[2018-11-28] MEDS: oxyCODONE HCL 20 MG SUSTAINED ACTING TABLET PO SCH ×3 (06:20→22:17)
[2018-11-28] MEDS: PREGABALIN 100 MG CAPSULE PO SCH ×3 (06:20→22:17)
[2018-11-28] MEDS: DOCUSATE SODIUM 100 MG CAPSULE (FP) PO SCH ×3 (06:20→22:17)
[2018-11-28 07:13] LABS: HEMATOCRIT 27.2 % (32.4-45.2); HEMOGLOBIN 8.7 GM/dL (10.7-15.3); MCH 23.7 pg (25.7-33.7); MCHC 32.1 g/dl (32.0-36.0); MEAN PLT VOLUME 7.4 fl (7.5-11.1); PLATELET COUNT 422 K/MM3 (134-434); RBC 3.68 M/mm3 (3.60-5.2); RDW 20.5 % (11.6-15.6); WHITE BLOOD COUNT 8.7 K/mm3 (4.0-10.0)
[2018-11-28 07:35] LABS: ALBUMIN 1.7 g/dl (3.4-5.0); ALK PHOS 92 U/L (45-117); ANION GAP 6 MMOL/L (8-16); BILIRUBIN,TOTAL 0.1 mg/dL (0.2-1); BLOOD UREA NITROGEN 18 mg/dL (7-18); CALCIUM 7.7 mg/dL (8.5-10.1); CHLORIDE 110 mmol/L (98-107); CO2 23 mmol/L (21-32); CREATININE 0.7 mg/dL (0.55-1.3); GLUCOSE,RANDOM 78 mg/dL (74-106); MAGNESIUM 1.7 mg/dL (1.8-2.4); POTASSIUM 4.4 mmol/L (3.5-5.1); SGOT/AST 13 U/L (15-37); SGPT/ALT 11 U/L (13-61); SODIUM 139 mmol/L (136-145); TOT PROT 5.6 g/dl (6.4-8.2)
--- NOTE | 2018-11-28 08:57 | PN ---
Physical Exam: SUBJECTIVE: Patient seen and examined. She is sitting at side of bed eating breakfast. She has no complaints. OBJECTIVE: Vital Signs Period Temp Pulse Resp BP Sys/Vargas Pulse Ox Last 24 Hr 97.8 F-99 F 85-109 18-18 106-117/64-68 96-96 GENERAL: The patient is awake, alert, and fully oriented, in no acute distress. LUNGS: Breath sounds equal, clear to auscultation bilaterally, no wheezes, no crackles, no accessory muscle use. HEART: Regular rate and rhythm, S1, S2 without murmur, rub or gallop. ABDOMEN: Soft, nontender, nondistended, normoactive bowel sounds, no guarding, no rebound, no hepatosplenomegaly, no masses. EXTREMITIES: 2+ pulses, warm, well-perfused, no edema. Wound VAC on left hip. Laboratory Results - last 24 hr 11/27/18 11/27/18 11/28/18 09:50 09:50 06:00 WBC 12.7 H 8.7 RBC 3.80 3.68 Hgb 9.2 L 8.7 L Hct 28.2 L 27.2 L MCV 74.0 L 74.0 L MCH 24.1 L 23.7 L MCHC 32.5 32.1 RDW 20.7 H 20.5 H Plt Count 517 H D 422 MPV 8.0 7.4 L Absolute Neuts (auto) 11.7 H Neutrophils % 91.8 H D Neutrophils % (Manual) 92.1 H Band Neutrophils % 0.0 Lymphocytes % 4.7 L D Lymphocytes % (Manual) 5.9 L Monocytes % 3.2 L Monocytes % (Manual) 2 L Eosinophils % 0.1 D Eosinophils % (Manual) 0.0 Basophils % 0.2 Basophils % (Manual) 0.0 Myelocytes % (Man) 0 Promyelocytes % (Man) 0 Blast Cells % (Manual) 0 Nucleated RBC % 0 Metamyelocytes 0 Hypochromia 0 Platelet Estimate Increased Polychromasia 1+ Poikilocytosis 1+ Anisocytosis 1+ Microcytosis 1+ Macrocytosis 0 Sodium 139 Potassium 4.5 Chloride 108 H Carbon Dioxide 23 Anion Gap 8 BUN 16 Creatinine 0.9 Creat Clearance w eGFR > 60 Random Glucose 111 H Calcium 8.3 L Magnesium 1.7 L Total Bilirubin 0.2 AST 13 L ALT 13 Alkaline Phosphatase 111 Total Protein 6.4 Albumin 2.0 L 11/28/18 06:00 WBC RBC Hgb Hct MCV MCH MCHC RDW Plt Count MPV Absolute Neuts (auto) Neutrophils % Neutrophils % (Manual) Band Neutrophils % Lymphocytes % Lymphocytes % (Manual) Monocytes % Monocytes % (Manual) Eosinophils % Eosinophils % (Manual) Basophils % Basophils % (Manual) Myelocytes % (Man) Promyelocytes % (Man) Blast Cells % (Manual) Nucleated RBC % Metamyelocytes Hypochromia Platelet Estimate Polychromasia Poikilocytosis Anisocytosis Microcytosis Macrocytosis Sodium 139 Potassium 4.4 Chloride 110 H Carbon Dioxide 23 Anion Gap 6 L BUN 18 Creatinine 0.7 Creat Clearance w eGFR > 60 Random Glucose 78 Calcium 7.7 L Magnesium 1.7 L Total Bilirubin 0.1 L AST 13 L ALT 11 L Alkaline Phosphatase 92 Total Protein 5.6 L Albumin 1.7 L Active Medications Generic Name Dose Route Start Last Admin Trade Name Freq PRN Reason Stop Dose Admin Aspirin 325 mg 11/27/18 10:00 11/27/18 09:51 Ecotrin - PO 325 mg DAILY [facility]KE Administration Cyclobenzaprine HCl 5 mg 11/27/18 10:00 11/27/18 09:42 Cyclobenzaprine Hcl PO 5 mg DAILY [facility] Administration Diazepam 5 mg 11/27/18 03:47 Valium - PO HS PRN ANXIETY Docusate Sodium 100 mg 11/27/18 06:00 11/28/18 06:20 Colace - PO 100 mg TID [facility]KE Administration Doxycycline Hyclate 100 mg 11/27/18 10:00 11/27/18 17:33 Vibramycin - PO 100 mg BID@1000,1800 [facility] Administration Duloxetine HCl 30 mg 11/27/18 10:00 11/27/18 21:10 Cymbalta - PO 30 mg BID [facility]KE Administration Sodium Chloride 1,000 mls @ 125 mls/hr 11/27/18 03:47 11/28/18 06:19 Normal Saline - IV Not Given ASDIR ELKE Lisinopril 10 mg 11/27/18 10:00 11/27/18 09:51 Prinivil PO 10 mg DAILY [facility] Administration Oxybutynin Chloride 5 mg 11/27/18 06:00 11/28/18 06:20 Ditropan - PO 5 mg TID [facility] Administration Oxycodone HCl 30 mg 11/27/18 03:47 11/28/18 07:50 Roxicodone - PO 30 mg Q6H PRN Administration PAIN LEVEL 7 - 10 Oxycodone HCl 20 mg 11/27/18 06:00 11/28/18 06:20 Oxycontin - PO 20 mg TID [facility]KE Administration Pantoprazole Sodium 40 mg 11/27/18 10:00 11/27/18 09:42 Protonix - PO 40 mg DAILY [facility] Administration Polyethylene Glycol 17 gm 11/27/18 10:00 11/27/18 09:51 Miralax (For Daily Use) - PO Not Given DAILY [facility] Pregabalin 100 mg 11/27/18 06:00 11/28/18 06:20 Lyrica - PO 100 mg TID [facility]KE Administration Senna 2 tab 11/27/18 03:47 Senna - PO HS PRN CONSTIPATION ASSESSMENT/PLAN: 1. Chronic left hip wound - s/p washout and VAC application 11/23 - On Doxycycline for suppression 2. HTN - Continue lisinopril 3. Depression with anxiety - Continue Cymbalta, Valium as needed 4. Acute blood loss anemia - Transfused 1 unit PRBCs this admission 5. Urinary incontinence - Continue Ditropan 6. Chronic back and left hip pain - Continue Lyrica, Flexeril, Cynbalta, OxyContin, oxycodone as needed 7. Disposition - Plan for discharge home once patient's wound VAC is found or other arrangements for VAC made Visit type - Emergency Visit Emergency Visit: No - New Patient This patient is new to me today: Yes Date on this admission: 11/28/18 - Critical Care Critical Care patient: No - Discharge Referral Referred to [facility] No
[2018-11-28] MEDS: DOXYCYCLINE HYCLATE 100 MG CAPSULE PO SCH ×2 (09:52→17:31)
[2018-11-28] MEDS: PANTOPRAZOLE 40 MG TABLET (FP) PO SCH (09:52)
[2018-11-28] MEDS: ASPIRIN 325 MG ENTERIC COATED TABLET (FP) PO SCH (09:52)
[2018-11-28] MEDS: DULoxetine HCL 30 MG CAPSULE.DR (FP) PO SCH ×2 (09:52→22:19)
[2018-11-28] MEDS: LISINOPRIL 10 MG TABLET (FP) PO SCH (09:52)
[2018-11-28] MEDS: POLYETHYLENE GLYCOL 3350 119 GM BTL PO SCH (09:53)
[2018-11-28] MEDS: CYCLOBENZAPRINE HCL 5 MG TABLET PO SCH (09:53)
[2018-11-29] MEDS: SODIUM CHLORIDE 1,000 ML IV SCH (03:45)
[2018-11-29] MEDS: oxyCODONE HCL 20 MG SUSTAINED ACTING TABLET PO SCH ×3 (05:40→21:32)
[2018-11-29] MEDS: PREGABALIN 100 MG CAPSULE PO SCH ×3 (05:40→21:32)
[2018-11-29] MEDS: DOCUSATE SODIUM 100 MG CAPSULE (FP) PO SCH ×3 (05:42→21:31)
[2018-11-29] MEDS: OXYBUTYNIN CHLORIDE 5 MG TABLET PO SCH ×3 (05:42→21:33)
[2018-11-29] MEDS: oxyCODONE HCL 5 MG TABLET PO PRN ×2 (07:35→23:02)
[2018-11-29] MEDS ORDERED: PT OWN MED DRAWER 7, Y5N ONE (09:19)
[2018-11-29] MEDS: PANTOPRAZOLE 40 MG TABLET (FP) PO SCH (09:27)
[2018-11-29] MEDS: ASPIRIN 325 MG ENTERIC COATED TABLET (FP) PO SCH (09:27)
[2018-11-29] MEDS: DULoxetine HCL 30 MG CAPSULE.DR (FP) PO SCH ×2 (09:27→21:32)
[2018-11-29] MEDS: DOXYCYCLINE HYCLATE 100 MG CAPSULE PO SCH ×2 (09:27→17:59)
[2018-11-29] MEDS: LISINOPRIL 10 MG TABLET (FP) PO SCH (09:27)
[2018-11-29] MEDS: CYCLOBENZAPRINE HCL 5 MG TABLET PO SCH (09:28)
[2018-11-29] MEDS: POLYETHYLENE GLYCOL 3350 119 GM BTL PO SCH (09:28)
[2018-11-29 10:06] LABS: HEMATOCRIT 29.4 % (32.4-45.2); HEMOGLOBIN 9.4 GM/dL (10.7-15.3); MCH 23.7 pg (25.7-33.7); MCHC 31.9 g/dl (32.0-36.0); MEAN CELL VOLUME 74.3 fl (80-96); MEAN PLT VOLUME 7.5 fl (7.5-11.1); PLATELET COUNT 624 K/MM3 (134-434); RBC 3.96 M/mm3 (3.60-5.2); RDW 20.2 % (11.6-15.6); WHITE BLOOD COUNT 15.2 K/mm3 (4.0-10.0)
[2018-11-29 10:33] LABS: ANION GAP 8 MMOL/L (8-16); BLOOD UREA NITROGEN 18 mg/dL (7-18); CALCIUM 8.2 mg/dL (8.5-10.1); CHLORIDE 108 mmol/L (98-107); CO2 24 mmol/L (21-32); CREATININE 0.8 mg/dL (0.55-1.3); GLUCOSE,RANDOM 91 mg/dL (74-106); MAGNESIUM 1.4 mg/dL (1.8-2.4); POTASSIUM 4.6 mmol/L (3.5-5.1); SODIUM 140 mmol/L (136-145)
[2018-11-29] MEDS ORDERED: MAGNESIUM SULF 50% (8.12 MEQ/2 ML-1 GM VIAL) IVPB ONE (10:43)
--- NOTE | 2018-11-29 14:38 | PN ---
Progress Note (short form) - Note Progress Note: POD #3 s/p Left hip washout and vac application. Patient states she feels warm/feverish, requesting meds (RN notified). Tolerating diet. Denies cp/sob, n/v/d. Vital Signs Temp 99.6 F 11/29/18 13:58 Pulse 108 H 11/29/18 13:58 Resp 18 11/29/18 13:58 BP 124/74 11/29/18 10:00 Pulse Ox 98 11/29/18 09:00 Intake & Output 11/28/18 11/29/18 11/29/18 23:59 11:59 23:59 Intake Total 950 200 Balance 950 200 Intake: Oral 950 200 Other: Voiding Method Toilet Toilet Bowel Movement No CBC, BMP 11/29/18 09:45 11/29/18 09:45 PE: A&Ox3, NAD, moving all extremities without limitation unlabored resp on RA Wound vac to left hip with no evidence of leaks in good position A/P: 63 y/o F w/ PMHx hypertension, anxiety, depression, chronic pain and chronic left hip left wound s/p revision L THR, now POD 3 s/p second washout in OR/change of wound vac. Pt with wbc trending up (15.2 from 8.7 prior), low grade fevers (100F) overnight. OR cultures polymicrobial. -Consider infection workup if pt continues to spike through abx -ABX per ID -Plan for delayed closure Sunday 12/03 -OK to send home with wound vac- leave in place and change containers. -Follow up with Dr Moya for Surgical plan-closure in OR next Monday. message sent to Dr Moya regarding above
--- NOTE | 2018-11-29 16:18 | PN ---
Progress Note, Physician History of Present Illness: 24 HR Events - no acute changes, pt has no complaints -AM LAbs demonstrate WBC 15 increase from 8.7, low grade temp 100.0 @ 10am and 99.6 @ 4pm. - Current Medication List Current Medications: Active Medications Aspirin (Ecotrin -) 325 mg PO DAILY [facility] Last Admin: 11/29/18 09:27 Dose: 325 mg Cyclobenzaprine HCl (Cyclobenzaprine Hcl) 5 mg PO DAILY [facility] Last Admin: 11/29/18 09:28 Dose: 5 mg Diazepam (Valium -) 5 mg PO HS PRN PRN Reason: ANXIETY Docusate Sodium (Colace -) 100 mg PO TID [facility] Last Admin: 11/29/18 13:48 Dose: 100 mg Doxycycline Hyclate (Vibramycin -) 100 mg PO BID@1000,1800 [facility] Last Admin: 11/29/18 09:27 Dose: 100 mg Duloxetine HCl (Cymbalta -) 30 mg PO BID [facility] Last Admin: 11/29/18 09:27 Dose: 30 mg Sodium Chloride (Normal Saline -) 1,000 mls @ 125 mls/hr IV ASDIR [facility] Last Admin: 11/29/18 03:45 Dose: Not Given Lisinopril (Prinivil) 10 mg PO DAILY [facility] Last Admin: 11/29/18 09:27 Dose: 10 mg Oxybutynin Chloride (Ditropan -) 5 mg PO TID [facility] Last Admin: 11/29/18 13:50 Dose: 5 mg Oxycodone HCl (Roxicodone -) 30 mg PO Q6H PRN PRN Reason: PAIN LEVEL 7 - 10 Last Admin: 11/29/18 07:35 Dose: 30 mg Oxycodone HCl (Oxycontin -) 20 mg PO TID [facility] Last Admin: 11/29/18 13:48 Dose: 20 mg Pantoprazole Sodium (Protonix -) 40 mg PO DAILY [facility] Last Admin: 11/29/18 09:27 Dose: 40 mg Polyethylene Glycol (Miralax (For Daily Use) -) 17 gm PO DAILY [facility] Last Admin: 11/29/18 09:28 Dose: Not Given Pregabalin (Lyrica -) 100 mg PO TID [facility] Last Admin: 11/29/18 13:50 Dose: 100 mg Senna (Senna -) 2 tab PO HS PRN PRN Reason: CONSTIPATION - Objective Vital Signs: Vital Signs Temperature 99.6 F 11/29/18 13:58 Pulse Rate 108 H 11/29/18 13:58 Respiratory Rate 18 11/29/18 13:58 Blood Pressure 124/74 11/29/18 10:00 O2 Sat by Pulse Oximetry (%) 98 11/29/18 09:00 Constitutional: Yes: Well Nourished, Calm Eyes: Yes: Conjunctiva Clear, PERRL HENT: Yes: Atraumatic, Normocephalic, Other (poor dentition) Neck: Yes: Supple Cardiovascular: Yes: Tachycardia Respiratory: Yes: Regular, CTA Bilaterally Gastrointestinal: Yes: Soft, Abdomen, Obese ...Rectal Exam: Yes: Deferred Genitourinary: Yes: WNL Musculoskeletal: Yes: Muscle Weakness, Other (right leg > left leg) Extremities: Yes: WNL Edema: No Peripheral Pulses WNL: Yes Peripheral Pulses: Left Radial: 2+, Right Radial: 2+ Wound/Incision: Yes: Dressing Dry and Intact (Left hip open wound with wound vac ) Neurological: Yes: Alert, Oriented ...Motor Strength: WNL Psychiatric: Yes: Alert, Oriented Labs: CBC, BMP 11/29/18 09:45 11/29/18 09:45 INR, PTT INR 1.08 (0.83-1.09) 11/23/18 06:00 Problem List - Problems (1) Prophylactic measure Assessment/Plan: vibramycin 100mg BID as suppressive therapy ASA 81mg daily bowel regimen with senna and colace Miralax PRN constipation Code(s): Z29.9 - ENCOUNTER FOR PROPHYLACTIC MEASURES, UNSPECIFIED (2) Depression Assessment/Plan: cymbalta 30mg BID valium 5mg qhs Code(s): F32.9 - MAJOR DEPRESSIVE DISORDER, SINGLE EPISODE, UNSPECIFIED (3) HTN (hypertension) Assessment/Plan: cardiac diet Lisinopril 10mg daily Code(s): I10 - ESSENTIAL (PRIMARY) HYPERTENSION (4) Chronic pain Assessment/Plan: oxycontin 20mg TID PRN oxycodone Lyrica 100mg TID Code(s): G89.29 - OTHER CHRONIC PAIN (5) Low grade fever Assessment/Plan: Trend fever curve and WBC - if continues to uptrend wound start IV abx with possible ID consult Code(s): R50.9 - FEVER, UNSPECIFIED Impression/Plan Impression/Plan: urinary incontinence -oxybutynin 5mg tid Visit type - Emergency Visit Emergency Visit: No - New Patient This patient is new to me today: No - Critical Care Critical Care patient: No - Discharge Referral Referred to [facility] Med P.C.: No
[2018-11-29] MEDS ORDERED: LACTATED RINGERS SOLUTION 1,000 ML/1,000 ML INFUS.BAG IV SCH (21:30)
[2018-11-30] MEDS ORDERED: DEXTROSE 5%-WATER - 50 ML IVPB ONE ×2 (01:06→08:43)
[2018-11-30] MEDS ORDERED: PIPERACILLIN/TAZOBACTAM 3.375 GM VIAL IVPB ONE ×2 (01:06→08:43)
[2018-11-30] MEDS: PIPERACILLIN/TAZOB 3.375 GM 3.375 GM in DEXTROSE 5%-WATER - 50 ML IVPB SCH ×3 (01:17→02:48)
[2018-11-30] MEDS ORDERED: PIPERACILLIN/TAZOB 3.375 GM 3.375 GM in DEXTROSE 5%-WATER - 50 ML IVPB SCH (02:00)
[2018-11-30] MEDS: oxyCODONE HCL 20 MG SUSTAINED ACTING TABLET PO SCH ×3 (06:02→21:50)
[2018-11-30] MEDS: OXYBUTYNIN CHLORIDE 5 MG TABLET PO SCH ×3 (06:04→21:49)
[2018-11-30] MEDS: DOCUSATE SODIUM 100 MG CAPSULE (FP) PO SCH ×3 (06:04→21:49)
[2018-11-30] MEDS: PREGABALIN 100 MG CAPSULE PO SCH ×3 (06:04→21:49)
--- NOTE | 2018-11-30 09:03 | PN ---
Progress Note (short form) - Note Progress Note: asymptomatic. denies CP, SOB, fever, chills, cough, dysuria, N/V/C/D Current Medications Generic Name Dose Route Start Last Admin Trade Name Edy PRN Reason Stop Dose Admin Aspirin 325 mg 11/27/18 10:00 11/29/18 09:27 Ecotrin - PO 325 mg DAILY [facility] Administration Cyclobenzaprine HCl 5 mg 11/27/18 10:00 11/29/18 09:28 Cyclobenzaprine Hcl PO 5 mg DAILY [facility] Administration Docusate Sodium 100 mg 11/27/18 06:00 11/30/18 06:04 Colace - PO 100 mg TID [facility] Administration Doxycycline Hyclate 100 mg 11/27/18 10:00 11/29/18 17:59 Vibramycin - PO 100 mg BID@1000,1800 [facility] Administration Duloxetine HCl 30 mg 11/27/18 10:00 11/29/18 21:32 Cymbalta - PO 30 mg BID [facility] Administration Sodium Chloride 1,000 mls @ 125 mls/hr 11/27/18 03:47 11/29/18 03:45 Normal Saline - IV Not Given ASDIR [facility] Piperacillin Sod/Tazobactam 50 mls @ 100 mls/hr 11/30/18 02:00 Sod 3.375 gm/ Dextrose IVPB Q8H-IV [facility] Protocol Lactated Ringer's 1,000 ml in 1,000 mls @ 42 mls/hr 11/29/18 21:30 11/29/18 22:25 Lactated Ringers Solution IV Not Given ASDIR [facility] Piperacillin Sod/Tazobactam 50 mls @ 100 mls/hr 11/30/18 02:00 11/30/18 02:48 Sod 3.375 gm/ Dextrose IVPB 11/30/18 18:29 Not Given Q8H-IV [facility] Protocol Lisinopril 10 mg 11/27/18 10:00 11/29/18 09:27 Prinivil PO 10 mg DAILY [facility] Administration Oxybutynin Chloride 5 mg 11/27/18 06:00 11/30/18 06:04 Ditropan - PO 5 mg TID [facility] Administration Oxycodone HCl 20 mg 11/27/18 06:00 11/30/18 06:02 Oxycontin - PO 20 mg TID [facility] Administration Pantoprazole Sodium 40 mg 11/27/18 10:00 11/29/18 09:27 Protonix - PO 40 mg DAILY [facility] Administration Polyethylene Glycol 17 gm 11/27/18 10:00 11/29/18 09:28 Miralax (For Daily Use) - PO Not Given DAILY [facility] Pregabalin 100 mg 11/27/18 06:00 11/30/18 06:04 Lyrica - PO 100 mg TID [facility] Administration Senna 2 tab 11/27/18 03:47 Senna - PO HS PRN CONSTIPATION Last Vital Signs Temp Pulse Resp BP Pulse Ox 98.2 F 89 20 122/89 98 11/30/18 06:48 11/30/18 06:48 11/30/18 06:48 11/30/18 06:48 11/29/18 21:00 General NAD CV S1 S2 RRR no murmur/rub/gallop Lungs CTA B/L no wheezing/rales/rhonchi Abdomen soft NT/ND Extremities no pedal edema CBCD WBC 12.6 K/mm3 (4.0-10.0) H 11/30/18 09:14 RBC 3.96 M/mm3 (3.60-5.2) 11/30/18 09:14 Hgb 9.4 GM/dL (10.7-15.3) L 11/30/18 09:14 Hct 29.3 % (32.4-45.2) L 11/30/18 09:14 MCV 73.9 fl (80-96) L 11/30/18 09:14 MCHC 32.2 g/dl (32.0-36.0) 11/30/18 09:14 RDW 20.3 % (11.6-15.6) H 11/30/18 09:14 Plt Count 617 K/MM3 (134-434) H 11/30/18 09:14 MPV 7.8 fl (7.5-11.1) 11/30/18 09:14 CMP Sodium 140 mmol/L (136-145) 11/29/18 09:45 Potassium 4.6 mmol/L (3.5-5.1) 11/29/18 09:45 Chloride 108 mmol/L (98-107) H 11/29/18 09:45 Carbon Dioxide 24 mmol/L (21-32) 11/29/18 09:45 Anion Gap 8 MMOL/L (8-16) 11/29/18 09:45 BUN 18 mg/dL (7-18) 11/29/18 09:45 Creatinine 0.8 mg/dL (0.55-1.3) 11/29/18 09:45 Creat Clearance w eGFR > 60 (>60) 11/29/18 09:45 Calcium 8.2 mg/dL (8.5-10.1) L 11/29/18 09:45 Total Bilirubin 0.1 mg/dL (0.2-1) L 11/28/18 06:00 AST 13 U/L (15-37) L 11/28/18 06:00 ALT 11 U/L (13-61) L 11/28/18 06:00 Alkaline Phosphatase 92 U/L (45-117) 11/28/18 06:00 Total Protein 5.6 g/dl (6.4-8.2) L 11/28/18 06:00 Albumin 1.7 g/dl (3.4-5.0) L 11/28/18 06:00 Microbiology 11/26/18 23:00 Gram Stain - Final Hip - Left Wound Culture - Preliminary Non Lactose Fermenting Gnb Group D Strep Or Entero Coccus 11/26/18 23:00 Gram Stain - Final Hip - Left Wound Culture - Preliminary Non Lactose Fermenting Gnb Group D Strep Or Entero Coccus A/P 63yo F with PMH depression, HTN, chronic pain, urinary retention presented to the hospital for L hip wound and was taken to the OR for L hip washout and wound vac was applied 1. Chronic left hip wound- s/p washout and VAC application 11/23. plan to return to the OR on 12/03 for delayed wound closure. was placed on doxy for empiric abx coverage. was increased to zosyn yesterday due to low grade fever and leukocytosis however pt refused abx and there has been no fevers and luekocytosis is resolving. f.u wound cx. will hold zosyn at this time. will remy- culture if has temp spike. further recommendations per ortho. 2. Hypomagnesemia- resolved 3. Acute blood loss anemia- s/p 1 unit PRBC this hospital stay. Hgb stable. no indication for transfusion at this time 3. HTN- Continue lisinopril 3. Depression with anxiety- Continue Cymbalta, Valium as needed 5. Urinary incontinence- Continue Ditropan 6. Chronic back and left hip pain- Continue Lyrica, Flexeril, Cynbalta, OxyContin, oxycodone as needed 7. DVT ppx- SCD 8., plan for d/c home with wound vac when medically optimized Visit type - Emergency Visit Emergency Visit: Yes ED Registration Date: 11/19/18 Care time: The patient presented to the Emergency Department on the above date and was hospitalized for further evaluation of their emergent condition. - New Patient This patient is new to me today: Yes Date on this admission: 11/30/18 - Critical Care Critical Care patient: No - Discharge Referral Referred to [facility] Med P.C.: No
[2018-11-30 09:18] LABS: BASO % 0.4 % (0-2.0); EOS % 3.5 % (0-4.5); HEMATOCRIT 29.3 % (32.4-45.2); HEMOGLOBIN 9.4 GM/dL (10.7-15.3); LYMPH % 14.2 % (8-40); MCH 23.8 pg (25.7-33.7); MCHC 32.2 g/dl (32.0-36.0); MEAN CELL VOLUME 73.9 fl (80-96); MEAN PLT VOLUME 7.8 fl (7.5-11.1); MONO % 5.3 % (3.8-10.2); NEUT % 76.6 % (42.8-82.8); PLATELET COUNT 617 K/MM3 (134-434); RBC 3.96 M/mm3 (3.60-5.2); RDW 20.3 % (11.6-15.6); WHITE BLOOD COUNT 12.6 K/mm3 (4.0-10.0)
[2018-11-30] MEDS ORDERED: oxyCODONE HCL 5 MG TABLET PO PRN (09:36)
[2018-11-30] MEDS: PANTOPRAZOLE 40 MG TABLET (FP) PO SCH (09:48)
[2018-11-30] MEDS: DULoxetine HCL 30 MG CAPSULE.DR (FP) PO SCH ×2 (09:48→21:49)
[2018-11-30] MEDS: DOXYCYCLINE HYCLATE 100 MG CAPSULE PO SCH ×2 (09:48→17:29)
[2018-11-30] MEDS: ASPIRIN 325 MG ENTERIC COATED TABLET (FP) PO SCH (09:48)
[2018-11-30] MEDS: LISINOPRIL 10 MG TABLET (FP) PO SCH (09:48)
[2018-11-30] MEDS: POLYETHYLENE GLYCOL 3350 119 GM BTL PO SCH (09:49)
[2018-11-30] MEDS: CYCLOBENZAPRINE HCL 5 MG TABLET PO SCH (09:49)
--- NOTE | 2018-11-30 10:54 | PN ---
Progress Note (short form) - Note Progress Note: POD #4 s/p Left hip washout and vac application. Patient refusing abx as per medicine, was afebrile overnight and WBC trending down. Last Vital Signs Temp Pulse Resp BP Pulse Ox 98.2 F 89 20 122/89 98 11/30/18 06:48 11/30/18 06:48 11/30/18 06:48 11/30/18 06:48 11/30/18 09:00 CBC, BMP 11/30/18 09:14 11/29/18 09:45 PE: Gen: A&Ox3, NAD, moving all extremities without limitation Resp: breathing comfortably Wound vac to left hip with no evidence of leaks in good position Problem List - Problems (1) Wound, open, hip or thigh Assessment/Plan: Plan -recommend abx per the recent wound and biopsy results per ID, understand pt refusing, will reiterate the importance of abx. -will plan to take back to the OR on Sunday 12/03, for washout possible closure. -continue vac low continuous pressure. Plan discussed with Dr. Moya who agrees. Code(s): [id number] -
[2018-11-30] MEDS: oxyCODONE HCL 5 MG TABLET PO PRN (15:50)
--- NOTE | 2018-11-30 16:34 | PN ---
Progress Note (short form) - Note Progress Note: ID consult dictated imp/reccd 63 yo female with a history of chronic osteo of the left hip- she was previously being treated by dr wall at [facility] where she had multiple surgeries apparently the ball of the hip prosthesis has been removed about a year ago and the stem remains- will get xray to confirm she has been treated with multiple surgical debridements and vac dressings starting in August she has been coming to [facility] for debridements and vac placement, the wound was closed in 10/10/18 and she reports it began to drain again after discharge she was readmitted 11/19 for another washout most recent washout was 11/26 the wound is consistently growing a MDR ecoli and enterococcus- today she has fever to 101 denies all complaints very upset about her leg she has been taking doxycycline and levaquin at home as suppressive therapy for several years (not sure why these antiiboitics were selected) d/w Dr Wall- plan is to eventually remove the stem, treat the ecoli and enterococcus definitively after all metal is removed and then place a new prosthesis the wound itself - per dr wall is clean without purulence (she has a vac in place)- he does not think this is the cause of her fever fevers would obtain cultures/ua/urine culture/cxray and evaluate will order urine straight cath- was ordered yesterday and not obtained she does not look toxic at this time-would hold on empiric antiibotics if indeed she clinically worsens or fever persists would empirically start ertapenem very complex case over 45 minutes spent in obtaining history and d/w Dr Wall and the hospitalist
[2018-11-30 20:56] LABS: URINE APPEARANCE CLEAR; URINE BILIRUBIN NEGATIVE (<2.0 mg/dL); URINE COLOR LTYELLOW; URINE GLUCOSE (UA) NEGATIVE (NEGATIVE); URINE KETONE NEGATIVE (NEGATIVE); URINE LEUK ESTERASE NEGATIVE (NEGATIVE); URINE NITRITE NEGATIVE (NEGATIVE); URINE PROTEIN NEGATIVE (NEGATIVE); URINE UROBILINOGEN NEGATIVE mg/dL (0.2-1.0)
[2018-12-01] MEDS: oxyCODONE HCL 20 MG SUSTAINED ACTING TABLET PO SCH (07:21)
[2018-12-01] MEDS: DOCUSATE SODIUM 100 MG CAPSULE (FP) PO SCH ×3 (07:22→21:39)
[2018-12-01] MEDS: PREGABALIN 100 MG CAPSULE PO SCH ×3 (07:23→21:39)
[2018-12-01] MEDS: OXYBUTYNIN CHLORIDE 5 MG TABLET PO SCH ×3 (07:23→21:39)
[2018-12-01 07:57] LABS: BASO % 0.5 % (0-2.0); HEMATOCRIT 24.7 % (32.4-45.2); LYMPH % 14.7 % (8-40); MCH 23.6 pg (25.7-33.7); MCHC 32.4 g/dl (32.0-36.0); MEAN CELL VOLUME 72.6 fl (80-96); MEAN PLT VOLUME 7.3 fl (7.5-11.1); MONO % 9.3 % (3.8-10.2); NEUT % 73.5 % (42.8-82.8); PLATELET COUNT 562 K/MM3 (134-434); RBC 3.41 M/mm3 (3.60-5.2); RDW 20.4 % (11.6-15.6); WHITE BLOOD COUNT 12.3 K/mm3 (4.0-10.0)
--- NOTE | 2018-12-01 09:17 | PN ---
Physical Exam: SUBJECTIVE: Patient seen and examined. She is sitting at the side of the bed crying because her back pain is not controlled. Had temp 101.4 yesterday evening. OBJECTIVE: Vital Signs Period Temp Pulse Resp BP Sys/Vargas Pulse Ox Last 24 Hr 98.5 F-101.4 F 84-130 18-20 100-149/61-82 GENERAL: The patient is awake, alert, and fully oriented. LUNGS: Breath sounds equal, clear to auscultation bilaterally, no wheezes, no crackles, no accessory muscle use. HEART: Regular rhythm, tachycardic, S1 S2 without murmur, rub or gallop. ABDOMEN: Soft, nontender, nondistended, normoactive bowel sounds, no guarding, no rebound, no hepatosplenomegaly, no masses. EXTREMITIES: 2+ pulses, warm, well-perfused, no edema. VAC on left hip. Laboratory Results - last 24 hr 11/30/18 11/30/18 11/30/18 09:14 09:14 18:00 WBC 12.6 H RBC 3.96 Hgb 9.4 L Hct 29.3 L MCV 73.9 L MCH 23.8 L MCHC 32.2 RDW 20.3 H Plt Count 617 H MPV 7.8 Absolute Neuts (auto) 9.6 H Neutrophils % 76.6 Lymphocytes % 14.2 D Monocytes % 5.3 Eosinophils % 3.5 D Basophils % 0.4 Nucleated RBC % 0 Magnesium 2.4 C-Reactive Protein Urine Color Ltyellow Urine Appearance Clear Urine pH 7.0 Ur Specific [place] 1.012 Urine Protein Negative Urine Glucose (UA) Negative Urine Ketones Negative Urine Blood Negative Urine Nitrite Negative Urine Bilirubin Negative Urine Urobilinogen Negative Ur Leukocyte Esterase Negative 12/01/18 12/01/18 06:00 06:00 WBC 12.3 H RBC 3.41 L Hgb 8.0 L Hct 24.7 L D MCV 72.6 L MCH 23.6 L MCHC 32.4 RDW 20.4 H Plt Count 562 H MPV 7.3 L Absolute Neuts (auto) 9.1 H Neutrophils % 73.5 Lymphocytes % 14.7 Monocytes % 9.3 Eosinophils % 2.0 Basophils % 0.5 Nucleated RBC % 0 Magnesium C-Reactive Protein 11.0 H Urine Color Urine Appearance Urine pH Ur Specific [place] Urine Protein Urine Glucose (UA) Urine Ketones Urine Blood Urine Nitrite Urine Bilirubin Urine Urobilinogen Ur Leukocyte Esterase Active Medications Generic Name Dose Route Start Last Admin Trade Name Edy PRN Reason Stop Dose Admin Aspirin 325 mg 11/27/18 10:00 11/30/18 09:48 Ecotrin - PO 325 mg DAILY [facility] Administration Cyclobenzaprine HCl 5 mg 11/27/18 10:00 11/30/18 09:49 Cyclobenzaprine Hcl PO 5 mg DAILY [facility] Administration Docusate Sodium 100 mg 11/27/18 06:00 12/01/18 07:22 Colace - PO 100 mg TID [facility] Administration Doxycycline Hyclate 100 mg 11/27/18 10:00 11/30/18 17:29 Vibramycin - PO 100 mg BID@1000,1800 [facility] Administration Duloxetine HCl 30 mg 11/27/18 10:00 11/30/18 21:49 Cymbalta - PO 30 mg BID [facility] Administration Lisinopril 10 mg 11/27/18 10:00 11/30/18 09:48 Prinivil PO 10 mg DAILY [facility] Administration Oxybutynin Chloride 5 mg 11/27/18 06:00 12/01/18 07:23 Ditropan - PO 5 mg TID [facility] Administration Oxycodone HCl 20 mg 11/27/18 06:00 12/01/18 07:21 Oxycontin - PO 20 mg TID [facility] Administration Oxycodone HCl 30 mg 11/30/18 14:18 11/30/18 15:50 Roxicodone - PO 30 mg Q6H PRN Administration PAIN LEVEL 7 - 10 Pantoprazole Sodium 40 mg 11/27/18 10:00 11/30/18 09:48 Protonix - PO 40 mg DAILY [facility] Administration Polyethylene Glycol 17 gm 11/27/18 10:00 11/30/18 09:49 Miralax (For Daily Use) - PO Not Given DAILY [facility] Pregabalin 100 mg 11/27/18 06:00 12/01/18 07:23 Lyrica - PO 100 mg TID [facility] Administration Senna 2 tab 11/27/18 03:47 Senna - PO HS PRN CONSTIPATION ASSESSMENT/PLAN: This is a 63 year old woman with a history of HTN, depression, anxiety, chronic back pain, urinary incontinence, chronic left hip wound who presented to the hospital for treatment of the left hip wound. 1. Chronic left hip wound - s/p washout and VAC application 11/23 - On Doxycycline for suppression - Patient febrile yesterday - Blood cultures negative after 24 hours - UA shows no evidence of infection - urine culture pending - ID recommends empiric ertapenem for persistent fever but patient has been refusing - Plan for return to OR 12/03 for washout and possible closure 2. Hypomagnesemia - Improved 3. HTN - Continue lisinopril 4. Depression with anxiety - Continue Cymbalta 5. Acute blood loss anemia - Transfused 1 unit PRBCs this admission - Hgb 8.0 today - will continue to monitor 6. Urinary incontinence - Continue Ditropan 7. Chronic back and left hip pain - Continue Lyrica, Flexeril, Cynbalta - Resume home regimen of OxyContin 80 mg bid, oxycodone 30 mg q6h as needed Visit type - Emergency Visit Emergency Visit: No - New Patient This patient is new to me today: No - Critical Care Critical Care patient: No - Discharge Referral Referred to [facility] Med P.C.: No
[2018-12-01] MEDS ORDERED: PT OWN MED DRAWER 7, Y5N ONE (09:19)
[2018-12-01] MEDS: PANTOPRAZOLE 40 MG TABLET (FP) PO SCH (09:25)
[2018-12-01] MEDS: DOXYCYCLINE HYCLATE 100 MG CAPSULE PO SCH ×2 (09:25→17:50)
[2018-12-01] MEDS: DULoxetine HCL 30 MG CAPSULE.DR (FP) PO SCH ×2 (09:25→21:39)
[2018-12-01] MEDS: ASPIRIN 325 MG ENTERIC COATED TABLET (FP) PO SCH (09:25)
[2018-12-01] MEDS: LISINOPRIL 10 MG TABLET (FP) PO SCH (09:25)
[2018-12-01] MEDS: oxyCODONE HCL 5 MG TABLET PO PRN ×2 (09:26→17:49)
[2018-12-01] MEDS: CYCLOBENZAPRINE HCL 5 MG TABLET PO SCH (09:27)
[2018-12-01] MEDS: POLYETHYLENE GLYCOL 3350 119 GM BTL PO SCH (09:28)
[2018-12-01] MEDS ORDERED: oxyCODONE HCL 40 MG SUSTAINED ACTING TABLET PO ONE (10:12)
--- NOTE | 2018-12-01 14:52 | PN ---
Progress Note (short form) - Note Progress Note: afebrile today she refused blood cultures yesterday no fevers today Vital Signs Period Temp Pulse Resp BP Sys/Vargas Pulse Ox Last 24 Hr 98.2 F-101.4 F 84-130 18-20 100-149/60-77 98 cor rrr lungs clear abd soft,nt ext vac in place CBC, BMP 12/01/18 06:00 11/29/18 09:45 Microbiology 11/29/18 07:00 Blood - Peripheral Venous Blood Culture - Preliminary NO GROWTH OBTAINED AFTER 24 HOURS, INCUBATION TO CONTINUE FOR 4 DAYS. 11/29/18 06:30 Blood - Peripheral Venous Blood Culture - Preliminary NO GROWTH OBTAINED AFTER 24 HOURS, INCUBATION TO CONTINUE FOR 4 DAYS. 11/26/18 23:00 Hip - Left Gram Stain - Final 11/26/18 23:00 Hip - Left Wound Culture - Final Escherichia Coli Enterococcus Faecalis 11/26/18 23:00 Hip - Left Gram Stain - Final 11/26/18 23:00 Hip - Left Wound Culture - Final Escherichia Coli Enterococcus Faecalis 11/23/18 13:58 Abscess Gram Stain - Final 11/23/18 13:58 Abscess Wound Culture - Final Non Lactose Fermenting Gnb Group D Strep Or Entero Coccus Diphtheroid/Corynebacterium 11/23/18 13:55 Abscess Gram Stain - Final 11/23/18 13:55 Abscess Wound Culture - Final Escherichia Coli Enterococcus Faecalis Diphtheroid/Corynebacterium 11/19/18 15:00 Hip - Left Gram Stain - Final 11/19/18 15:00 Hip - Left Wound Culture - Final Staphylococcus Coagulase Neg Diphtheroid/Corynebacterium Group D Strep Or Entero Coccus Escherichia Coli 11/19/18 15:00 Hip - Left Gram Stain - Final 11/19/18 15:00 Hip - Left Wound Culture - Final Staphylococcus Coagulase Neg Diphtheroid/Corynebacterium Gamma Hemolytic Streptococcus Escherichia Coli a/p fevers -resolved fever work up pending f/u cultures chronic osteo of the hip with retained hardware- no chance at cure without removal of hardware this has been going on for a longtime now management per surgeon with future plans for hardware removal and iv antibiotics to definitively treat at that time she was placed on doxycycline at [facility] based on cultures there?? would continue please call back as needed d/w patient she is aware if the skilled nursing plan
[2018-12-01] MEDS: oxyCODONE HCL 80 MG SUSTAINED ACTING TABLET PO SCH (21:48)
[2018-12-02] MEDS: DOCUSATE SODIUM 100 MG CAPSULE (FP) PO SCH ×3 (06:20→21:34)
[2018-12-02] MEDS: OXYBUTYNIN CHLORIDE 5 MG TABLET PO SCH ×3 (06:20→21:34)
[2018-12-02] MEDS: PREGABALIN 100 MG CAPSULE PO SCH ×3 (06:21→21:34)
[2018-12-02] MEDS: oxyCODONE HCL 5 MG TABLET PO PRN (07:09)
[2018-12-02 07:37] LABS: BASO % 0.5 % (0-2.0); EOS % 2.5 % (0-4.5); LYMPH % 15.4 % (8-40); MCH 24.3 pg (25.7-33.7); MCHC 33.2 g/dl (32.0-36.0); MEAN CELL VOLUME 73.1 fl (80-96); MEAN PLT VOLUME 7.3 fl (7.5-11.1); MONO % 7.6 % (3.8-10.2); PLATELET COUNT 778 K/MM3 (134-434); RBC 3.69 M/mm3 (3.60-5.2); RDW 20.6 % (11.6-15.6); WHITE BLOOD COUNT 16.1 K/mm3 (4.0-10.0)
[2018-12-02 07:50] LABS: ANION GAP 8 MMOL/L (8-16); BLOOD UREA NITROGEN 29 mg/dL (7-18); CALCIUM 8.3 mg/dL (8.5-10.1); CHLORIDE 106 mmol/L (98-107); CO2 22 mmol/L (21-32); CREATININE 1.1 mg/dL (0.55-1.3); GLUCOSE,RANDOM 97 mg/dL (74-106); POTASSIUM 4.1 mmol/L (3.5-5.1); SODIUM 135 mmol/L (136-145)
--- NOTE | 2018-12-02 09:19 | PN ---
Physical Exam: SUBJECTIVE: Patient seen and examined. Pain is much better today. OBJECTIVE: Vital Signs Period Temp Pulse Resp BP Sys/Vargas Pulse Ox Last 24 Hr 98.2 F-99.4 F 94-116 18-20 101-118/45-70 98 GENERAL: The patient is awake, alert, and fully oriented. LUNGS: Breath sounds equal, clear to auscultation bilaterally, no wheezes, no crackles, no accessory muscle use. HEART: Regular rhythm, tachycardic, S1 S2 without murmur, rub or gallop. ABDOMEN: Soft, nontender, nondistended, normoactive bowel sounds, no guarding, no rebound, no hepatosplenomegaly, no masses. EXTREMITIES: 2+ pulses, warm, well-perfused, no edema. VAC on left hip. Laboratory Results - last 24 hr 12/01/18 12/02/18 12/02/18 06:00 06:00 06:00 WBC 16.1 H RBC 3.69 Hgb 9.0 L Hct 27.0 L MCV 73.1 L MCH 24.3 L MCHC 33.2 RDW 20.6 H Plt Count 778 H D MPV 7.3 L Absolute Neuts (auto) 11.9 H Neutrophils % 74.0 Lymphocytes % 15.4 Monocytes % 7.6 Eosinophils % 2.5 Basophils % 0.5 Nucleated RBC % 0 ESR 112 H Sodium 135 L Potassium 4.1 Chloride 106 Carbon Dioxide 22 Anion Gap 8 BUN 29 H Creatinine 1.1 Creat Clearance w eGFR 50.17 Random Glucose 97 Calcium 8.3 L Magnesium 2.0 Active Medications Generic Name Dose Route Start Last Admin Trade Name Mattq PRN Reason Stop Dose Admin Aspirin 325 mg 11/27/18 10:12/01/18 09:25 Ecotrin - PO 325 mg DAILY [facility] Administration Cyclobenzaprine HCl 5 mg 11/27/18 10:12/01/18 09:27 Cyclobenzaprine Hcl PO 5 mg DAILY [facility] Administration Docusate Sodium 100 mg 11/27/18 06:00 12/02/18 06:20 Colace - PO 100 mg TID [facility] Administration Doxycycline Hyclate 100 mg 11/27/18 10:00 12/01/18 17:50 Vibramycin - PO 100 mg BID@1000,1800 [facility] Administration Duloxetine HCl 30 mg 11/27/18 10:12/01/18 21:39 Cymbalta - PO 30 mg BID [facility] Administration Lisinopril 10 mg 11/27/18 10:00 12/01/18 09:25 Prinivil PO 10 mg DAILY [facility] Administration Oxybutynin Chloride 5 mg 11/27/18 06:00 12/02/18 06:20 Ditropan - PO 5 mg TID [facility] Administration Oxycodone HCl 30 mg 11/30/18 14:18 12/02/18 07:09 Roxicodone - PO 30 mg Q6H PRN Administration PAIN LEVEL 7 - 10 Oxycodone HCl 80 mg 12/01/18 22:00 12/01/18 21:48 Oxycontin - PO 80 mg BID [facility] Administration Pantoprazole Sodium 40 mg 11/27/18 10:00 12/01/18 09:25 Protonix - PO 40 mg DAILY [facility] Administration Polyethylene Glycol 17 gm 11/27/18 10:00 12/01/18 09:28 Miralax (For Daily Use) - PO Not Given DAILY [facility] Pregabalin 100 mg 11/27/18 06:00 12/02/18 06:21 Lyrica - PO 100 mg TID [facility] Administration Senna 2 tab 11/27/18 03:47 Senna - PO HS PRN CONSTIPATION ASSESSMENT/PLAN: This is a 63 year old woman with a history of HTN, depression, anxiety, chronic back pain, urinary incontinence, chronic left hip wound who presented to the hospital for treatment of the left hip wound. 1. Chronic left hip wound - s/p washout and VAC application 11/23 - On Doxycycline for suppression - WBC increasing, but patient has been afebrile - ESR 112, C-RP 11.0 - Plan for return to OR 12/03 for washout and possible closure 2. Hypomagnesemia - Improved 3. HTN - Continue lisinopril 4. Depression with anxiety - Continue Cymbalta 5. Acute blood loss anemia - Transfused 1 unit PRBCs this admission - Hgb stable 6. Urinary incontinence - Continue Ditropan 7. Chronic back and left hip pain - Continue Lyrica, Flexeril, Cymbalta, OxyContin, oxycodone as needed Visit type - Emergency Visit Emergency Visit: No - New Patient This patient is new to me today: No - Critical Care Critical Care patient: No - Discharge Referral Referred to [facility] Med P.C.: No
[2018-12-02] MEDS: DOXYCYCLINE HYCLATE 100 MG CAPSULE PO SCH ×2 (10:00→18:19)
[2018-12-02] MEDS: LISINOPRIL 10 MG TABLET (FP) PO SCH (10:00)
[2018-12-02] MEDS: DULoxetine HCL 30 MG CAPSULE.DR (FP) PO SCH ×2 (10:00→21:36)
[2018-12-02] MEDS: oxyCODONE HCL 80 MG SUSTAINED ACTING TABLET PO SCH ×2 (10:01→21:34)
[2018-12-02] MEDS: PANTOPRAZOLE 40 MG TABLET (FP) PO SCH (10:01)
[2018-12-02] MEDS: ASPIRIN 325 MG ENTERIC COATED TABLET (FP) PO SCH (10:03)
[2018-12-02] MEDS: CYCLOBENZAPRINE HCL 5 MG TABLET PO SCH (10:05)
[2018-12-02] MEDS: POLYETHYLENE GLYCOL 3350 119 GM BTL PO SCH (11:55)
[2018-12-02 12:09] LABS: ANISOCYTOSIS 2+; MACROCYTOSIS 1+; OVALOCYTE 1+; PLATELET ESTIMATE INCREASED; TEAR DROP CELLS 1+
--- NOTE | 2018-12-02 14:26 | CONS ---
INFECTIOUS DISEASE CONSULTATION DATE OF CONSULTATION: DATE OF DICTATION: 12/01/2018 HISTORY OF PRESENT ILLNESS: This is a 63-year-old woman I am asked to see for an isolated temperature of 101. She had an isolated temperature of 100 two days earlier. She has been admitted on the for an I and D of a right hip wound. The most was on November 26. She now has a back dressing in place. PAST MEDICAL HISTORY: Extensive and includes the fact that she apparently initially reports a hip surgery many years ago, hip replacement, after which she developed chronic dislocation and the hip was replaced again, after which it became infected. She has had a chronic wound and the ball of the hip prosthesis has been removed. and the stem remains. She has been treated with multiple surgical dbridements and back dressings. Originally these were all being done at [facility] where she was seen by ID there and placed on doxycycline and Levaquin for suppressive treatment. 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 At the time I saw her she had an isolated temperature of 101. She denies all complaints. She is upset and frustrated by her leg. She reports she has been taking doxycycline and Levaquin at home for several years. She is not sure why. I am not sure why these antibiotics were elected. ALLERGIES: She is allergic to ETOMIDATE, LATEX and MORPHINE. MEDICATIONS AT HOME: Include Lyrica, oxycodone, oxybutynin, omeprazole, OxyContin, lisinopril, Cymbalta, Levaquin, doxycycline, Diflucan, valium and aspirin. PAST MEDICAL HISTORY: Notable for history of hypertension, anxiety, depression, chronic pain. She has basically at this time chronic osteo of the left hip status post multiple incision and drainage. As well, she has bilateral shoulder replacement. SOCIAL HISTORY: She lives at home with her family, her and her son help her. She is not able to ambulate independently. REVIEW OF SYSTEMS: She denies dysuria. She denies cough, nausea, vomiting, diarrhea. She has no IV in place and there is no evidence of phlebitis. PHYSICAL EXAM:Vital Signs: She had a fever of 101 with a pulse of 95, blood pressure 127/61, respiratory rate of 20. General: She is alert. HEENT: She is normocephalic. Her eyes are anicteric. Neck: Supple. Lungs: Clear to auscultation. Heart: Regular rate and rhythm. Abdomen: Soft, nontender. Back: Dressing is intact. LABORATORY: Notable for a white count of 12.6, hemoglobin 9.4, platelets are 617. BUN is 18, creatinine 0.7 with normal LFTs. IN SUMMARY: I spoke with Dr. Moya to found out what the hip looks like and he reports that the wound itself per Dr. Moya is clean without any purulence. She has a VAC in place so I cannot see it. He does not think it is the cause for her fever. I discussed with Dr. Moya the future plan which is to eventually remove the stem to treat her definitively for her multidrug resistant Escherichia coli and enterococcus after all the metal is removed and then place a new prosthesis. At this time I would culture her up. Would get a straight catheterization of her urine. Would obtain a chest x-ray. She has not looked toxic, so would hold on empiric antibiotics. If indeed she clinically worsens or the fever persists, would empirically start ertapenem. This is a very complex case, over 45 minutes was spent in obtaining history and discussing the case with Dr. Moya and the hospitalist. EDILBERTO SALMON M.D. [id number]
[2018-12-03] MEDS: oxyCODONE HCL 5 MG TABLET PO PRN ×2 (02:05→08:50)
[2018-12-03] MEDS: DOCUSATE SODIUM 100 MG CAPSULE (FP) PO SCH ×3 (06:10→21:23)
[2018-12-03] MEDS: PREGABALIN 100 MG CAPSULE PO SCH ×3 (06:10→21:23)
[2018-12-03] MEDS: OXYBUTYNIN CHLORIDE 5 MG TABLET PO SCH ×3 (06:10→21:24)
[2018-12-03 07:26] LABS: BASO % 0.7 % (0-2.0); EOS % 1.9 % (0-4.5); HEMOGLOBIN 7.9 GM/dL (10.7-15.3); LYMPH % 16.6 % (8-40); MCH 24.1 pg (25.7-33.7); MCHC 33.1 g/dl (32.0-36.0); MONO % 11.9 % (3.8-10.2); NEUT % 68.9 % (42.8-82.8); PLATELET COUNT 607 K/MM3 (134-434); RDW 20.6 % (11.6-15.6); WHITE BLOOD COUNT 9.9 K/mm3 (4.0-10.0)
[2018-12-03 07:49] LABS: ANION GAP 8 MMOL/L (8-16); BLOOD UREA NITROGEN 33 mg/dL (7-18); CALCIUM 8.2 mg/dL (8.5-10.1); CHLORIDE 107 mmol/L (98-107); CO2 20 mmol/L (21-32); CREATININE 1.1 mg/dL (0.55-1.3); GLUCOSE,RANDOM 93 mg/dL (74-106); POTASSIUM 5.1 mmol/L (3.5-5.1); SODIUM 135 mmol/L (136-145)
[2018-12-03] MEDS ORDERED: PT OWN MED DRAWER 7, Y5N ONE (10:23)
[2018-12-03] MEDS: PANTOPRAZOLE 40 MG TABLET (FP) PO SCH (10:27)
[2018-12-03] MEDS: oxyCODONE HCL 80 MG SUSTAINED ACTING TABLET PO SCH ×2 (10:27→21:23)
[2018-12-03] MEDS: LISINOPRIL 10 MG TABLET (FP) PO SCH (10:27)
[2018-12-03] MEDS: ASPIRIN 325 MG ENTERIC COATED TABLET (FP) PO SCH (10:27)
[2018-12-03] MEDS: CYCLOBENZAPRINE HCL 5 MG TABLET PO SCH (10:27)
[2018-12-03] MEDS: DOXYCYCLINE HYCLATE 100 MG CAPSULE PO SCH ×2 (10:27→18:18)
[2018-12-03] MEDS: POLYETHYLENE GLYCOL 3350 119 GM BTL PO SCH (10:27)
[2018-12-03] MEDS: DULoxetine HCL 30 MG CAPSULE.DR (FP) PO SCH ×2 (10:27→21:24)
[2018-12-03] MEDS ORDERED: LIDOCAINE HCL/PF 2% SDV 5ML VIAL ONE (12:28)
[2018-12-03] MEDS ORDERED: DEXAMETHASONE SOD PHOSPHATE 4 MG/1 ML VIAL ONE (12:28)
[2018-12-03] MEDS ORDERED: PROPOFOL 20 ML ONE (12:30)
[2018-12-03] MEDS ORDERED: PHENYLEPHRINE HCL 10 MG/1 ML SINGLE DOSE VIAL ONE (12:37)
--- NOTE | 2018-12-03 14:01 | PN ---
Progress Note, Physician Chief Complaint: No new complaints TWBC trended normal - Current Medication List Current Medications: Active Medications Aspirin (Ecotrin -) 325 mg PO DAILY [facility] Last Admin: 12/03/18 10:27 Dose: 325 mg Cyclobenzaprine HCl (Cyclobenzaprine Hcl) 5 mg PO DAILY [facility] Last Admin: 12/03/18 10:27 Dose: 5 mg Docusate Sodium (Colace -) 100 mg PO TID [facility] Last Admin: 12/03/18 06:10 Dose: 100 mg Doxycycline Hyclate (Vibramycin -) 100 mg PO BID@1000,1800 [facility] Last Admin: 12/03/18 10:27 Dose: 100 mg Duloxetine HCl (Cymbalta -) 30 mg PO BID [facility] Last Admin: 12/03/18 10:27 Dose: 30 mg Fentanyl (Sublimaze Injection -) 25 mcg IVPUSH [id number] PRN PRN Reason: PAIN-PACU ORDER X 4 DOSES ONLY Lisinopril (Prinivil) 10 mg PO DAILY [facility] Last Admin: 12/03/18 10:27 Dose: 10 mg Oxybutynin Chloride (Ditropan -) 5 mg PO TID [facility] Last Admin: 12/03/18 06:10 Dose: 5 mg Oxycodone HCl (Roxicodone -) 30 mg PO Q6H PRN PRN Reason: PAIN LEVEL 7 - 10 Last Admin: 12/03/18 08:50 Dose: 30 mg Oxycodone HCl (Oxycontin -) 80 mg PO BID [facility] Last Admin: 12/03/18 10:27 Dose: 80 mg Pantoprazole Sodium (Protonix -) 40 mg PO DAILY [facility] Last Admin: 12/03/18 10:27 Dose: 40 mg Polyethylene Glycol (Miralax (For Daily Use) -) 17 gm PO DAILY [facility] Last Admin: 12/03/18 10:27 Dose: Not Given Pregabalin (Lyrica -) 100 mg PO TID [facility] Last Admin: 12/03/18 06:10 Dose: 100 mg Senna (Senna -) 2 tab PO HS PRN PRN Reason: CONSTIPATION - Objective Vital Signs: Vital Signs Temperature 98.0 F 12/03/18 13:10 Pulse Rate 92 H 12/03/18 13:45 Respiratory Rate 12 12/03/18 13:45 Blood Pressure 84/45 L 12/03/18 13:45 O2 Sat by Pulse Oximetry (%) 95 12/03/18 13:45 Constitutional: Yes: Well Nourished, No Distress HENT: Yes: Atraumatic, Normocephalic Neck: Yes: Supple, Trachea Midline Cardiovascular: Yes: Regular Rate and Rhythm, S1, S2 Respiratory: Yes: Regular, CTA Bilaterally Gastrointestinal: Yes: Normal Bowel Sounds, Soft Musculoskeletal: Yes: Other (Left Hip wound Vac) Edema: Yes Edema: RUE: Trace, LLE: Trace Peripheral Pulses WNL: Yes Peripheral Pulses: Right Radial: 1+, Left Doralis Pedis: 1+ Integumentary: Yes: Other (Left sided wound vac) Neurological: Yes: WNL, Alert, Oriented ...Motor Strength: WNL, LUE, LLE, RUE Labs: CBC, BMP 12/03/18 05:30 12/03/18 06:00 INR, PTT INR 1.08 (0.83-1.09) 11/23/18 06:00 Problem List - Problems (1) Wound, open, hip or thigh Assessment/Plan: S/p hip wash on IV abxa as per ID recommondation grrew E fecalis and E Colli TWBC normal , schedule for Hip wash today. Pian control Code(s): [id number] - (2) HTN (hypertension) Assessment/Plan: Well controlled cont Current meds Code(s): I10 - ESSENTIAL (PRIMARY) HYPERTENSION (3) Depression Assessment/Plan: At present Euthymic cont home meds Code(s): F32.9 - MAJOR DEPRESSIVE DISORDER, SINGLE EPISODE, UNSPECIFIED (4) Chronic pain Assessment/Plan: cont Pian meds Code(s): G89.29 - OTHER CHRONIC PAIN
[2018-12-03] MEDS ORDERED: NALOXONE HCL 0.4 MG/ML VIAL ONE (15:56)
[2018-12-03] MEDS ORDERED: NALOXONE HCL 0.4 MG/ML VIAL IVPUSH ONE (16:00)
[2018-12-03] MEDS ORDERED: SENNOSIDES 8.6MG TABLET (FP) PO PRN (18:18)
--- NOTE | 2018-12-04 02:09 | OP ---
DATE OF OPERATION: 12/03/2018 The patient was brought to the operating room for change of wound VAC. SURGEON: Albert Moya MD ANESTHESIA: General. PREOPERATIVE DIAGNOSIS: Wound VAC in situ. POSTOPERATIVE DIAGNOSIS: Wound VAC in situ. OPERATION PERFORMED: 1. Removal of wound VAC. 2. Incision and drainage. 3. Debridement. 4. Insertion of new wound VAC. POSITION: Lateral decubitus position. PROCEDURE IN DETAIL: With the patient correctly identified, brought to the operating room. The left hip was prepped with betadine scrub solution, wiped off with alcohol, and DuraPrep applied. The wound was much vehicle and equipment cleaner. Tissues were healthy, pink, and red. The tissues were subjected to repeat swabbing with culture and sensitivity. Thorough lavage with 5 L and betadine scrub to get rid of Biofilm was once again performed. The actual metal component appeared uncomplicated. A new wound VAC was inserted. The patient was extubated and brought out of the operating room. Suction was working well without complication. The plan here is to remove the hardware when the time has come to formally close the wound. The other wound closure will be in approximation closure consisting to facilitate tissue closure. MD OSVALDO Oconnor/[id number]
[2018-12-04] MEDS: PREGABALIN 100 MG CAPSULE PO SCH ×3 (05:42→21:50)
[2018-12-04] MEDS: DOCUSATE SODIUM 100 MG CAPSULE (FP) PO SCH ×3 (05:42→21:51)
[2018-12-04] MEDS: OXYBUTYNIN CHLORIDE 5 MG TABLET PO SCH ×3 (05:42→21:51)
--- NOTE | 2018-12-04 08:02 | PN ---
Progress Note (short form) - Note Progress Note: POD #1 Left hip repeat washout and vac application. Patient with no complaints. Resting comfortably. Vital Signs Temp 97.7 F 12/04/18 07:08 Pulse 93 H 12/04/18 07:08 Resp 18 12/04/18 07:08 BP 71/54 L 12/04/18 07:08 Pulse Ox 97 12/03/18 20:33 Intake & Output 12/03/18 12/03/18 12/04/18 11:59 23:59 11:59 Intake Total 400 2500 300 Balance 400 2500 300 Intake: IV 1600 Oral 400 900 300 Other: Voiding Method Toilet Toilet # Unmeasured Voids Void 1 1 1 Bowel Movement No No CBC, BMP 12/03/18 05:30 12/03/18 06:00 PE: rousable but lethargic, NAD unlabored resp on RA Wound vac to right hip had a power issue and was not functioning, plugged in to new outlet and checked for leaks, wound vac working with no evidence of leaks. in good position.thigh soft, supple and non-tender to palpation. Left LE comparmtent soft, supple and non-tender with +2 DP pulse. Problem List - Problems (1) Wound, open, hip or thigh Assessment/Plan: S/p Wash out x4 with wound vac application with post op anemia and symptomatic. 1) ABX per ID 2) Continue wound vac as ordered 3) Plan for delayed closure vs removal of hardware pending 4) Transfuse 2 Units PRBC now-discussed with Medicine team. 5) Post transfusion labs and trend H&H Evaluation and plan discussed with Dr Moya Code(s): [id number] -
[2018-12-04] MEDS ORDERED: SODIUM CHLORIDE 500 ML IV STA (08:06)
[2018-12-04] MEDS ORDERED: PT OWN MED DRAWER 7, Y5N ONE (09:07)
[2018-12-04] MEDS: oxyCODONE HCL 80 MG SUSTAINED ACTING TABLET PO SCH ×2 (09:14→21:50)
[2018-12-04] MEDS: ASPIRIN 325 MG ENTERIC COATED TABLET (FP) PO SCH (09:16)
[2018-12-04] MEDS: DOXYCYCLINE HYCLATE 100 MG CAPSULE PO SCH ×2 (09:16→17:03)
[2018-12-04] MEDS: LISINOPRIL 10 MG TABLET (FP) PO SCH (09:16)
[2018-12-04] MEDS: PANTOPRAZOLE 40 MG TABLET (FP) PO SCH (09:16)
[2018-12-04] MEDS: POLYETHYLENE GLYCOL 3350 119 GM BTL PO SCH (09:17)
[2018-12-04] MEDS: CYCLOBENZAPRINE HCL 5 MG TABLET PO SCH (09:17)
[2018-12-04] MEDS: DULoxetine HCL 30 MG CAPSULE.DR (FP) PO SCH ×2 (09:17→21:51)
--- NOTE | 2018-12-04 09:49 | PN ---
Progress Note (short form) - Note Progress Note: POD1 s/p I+D washout of L hip under GA. Tolerated anesthesia well, minimal pain , oob to chair. No anesthetic issues/complications noted.
[2018-12-04 09:55] LABS: BASO % 0.6 % (0-2.0); EOS % 0.8 % (0-4.5); HEMATOCRIT 22.6 % (32.4-45.2); HEMOGLOBIN 7.7 GM/dL (10.7-15.3); LYMPH % 12.9 % (8-40); MCH 24.2 pg (25.7-33.7); MCHC 33.9 g/dl (32.0-36.0); MEAN CELL VOLUME 71.3 fl (80-96); MONO % 7.9 % (3.8-10.2); NEUT % 77.8 % (42.8-82.8); PLATELET COUNT 682 K/MM3 (134-434); RBC 3.17 M/mm3 (3.60-5.2); RDW 20.4 % (11.6-15.6); WHITE BLOOD COUNT 10.9 K/mm3 (4.0-10.0)
[2018-12-04 10:28] LABS: ANION GAP 7 MMOL/L (8-16); BLOOD UREA NITROGEN 27 mg/dL (7-18); CALCIUM 8.4 mg/dL (8.5-10.1); CHLORIDE 113 mmol/L (98-107); CO2 20 mmol/L (21-32); GLUCOSE,RANDOM 100 mg/dL (74-106); POTASSIUM 4.5 mmol/L (3.5-5.1); SODIUM 140 mmol/L (136-145)
[2018-12-04] MEDS: oxyCODONE HCL 5 MG TABLET PO PRN ×2 (12:35→20:06)
[2018-12-04] MEDS: LIDOCAINE 5% TOPICAL PATCH TP SCH (12:36)
--- NOTE | 2018-12-04 15:56 | PN ---
Physical Exam: SUBJECTIVE: Patient seen and examined at the bedside. OBJECTIVE: in no acute distress. refusing blood transfusion initially, now in agreement POD #1 Left hip repeat washout and wound vac application. Vital Signs Period Temp Pulse Resp BP Sys/Vargas Pulse Ox Last 24 Hr 97.7 F-99.3 F 88-114 17-20 71-140/41-78 96-98 GENERAL: The patient is awake, alert, in no acute distress. HEAD: Normal with no signs of trauma. EYES: PERRL, extraocular movements intact, sclera anicteric, conjunctiva clear. No ptosis. ENT: Ears normal, nares patent, oropharynx clear without exudates, moist mucous membranes. NECK: Trachea midline, full range of motion, supple. LUNGS: Breath sounds equal, clear to auscultation bilaterally, no wheezes HEART: rrr ABDOMEN: Soft, nontender, nondistended, normoactive bowel sounds, no guarding EXTREMITIES: no edema. NEUROLOGICAL: calm, cooperative PSYCH: Normal mood, normal affect. SKIN: left hip wound vac Laboratory Results - last 24 hr 12/04/18 12/04/18 12/04/18 09:40 09:40 09:40 WBC 10.9 H RBC 3.17 L Hgb 7.7 L Hct 22.6 L MCV 71.3 L MCH 24.2 L MCHC 33.9 RDW 20.4 H Plt Count 682 H MPV 7.0 L Absolute Neuts (auto) 8.5 H Neutrophils % 77.8 Lymphocytes % 12.9 D Monocytes % 7.9 Eosinophils % 0.8 Basophils % 0.6 Nucleated RBC % 0 Sodium 140 Potassium 4.5 Chloride 113 H Carbon Dioxide 20 L Anion Gap 7 L BUN 27 H Creatinine 1.0 Creat Clearance w eGFR 56.00 Random Glucose 100 Calcium 8.4 L Blood Type A POSITIVE Antibody Screen Negative Crossmatch See Detail Active Medications Generic Name Dose Route Start Last Admin Trade Name Freq PRN Reason Stop Dose Admin Aspirin 325 mg 12/04/18 10:00 12/04/18 09:16 Ecotrin - PO 325 mg DAILY [facility] Administration Cyclobenzaprine HCl 5 mg 12/04/18 10:00 12/04/18 09:17 Cyclobenzaprine Hcl PO 5 mg DAILY [facility] Administration Docusate Sodium 100 mg 12/03/18 22:00 12/04/18 13:38 Colace - PO 100 mg TID [facility] Administration Doxycycline Hyclate 100 mg 12/04/18 10:00 12/04/18 09:16 Vibramycin - PO 100 mg BID@1000,1800 [facility] Administration Duloxetine HCl 30 mg 12/03/18 22:00 12/04/18 09:17 Cymbalta - PO 30 mg BID [facility] Administration Fentanyl 25 mcg 12/03/18 18:18 Sublimaze Injection - IVPUSH [id number] PRN PAIN-PACU ORDER X 4 DOSES ONLY Lidocaine 1 patch 12/04/18 12:30 12/04/18 12:36 Lidoderm Patch - TP 1 patch DAILY [facility] Administration Lisinopril 10 mg 12/04/18 10:00 12/04/18 09:16 Prinivil PO Not Given DAILY [facility] Miscellaneous 1 each 12/04/18 22:00 Lidoderm Patch Removal MC DAILY@2200 [facility] Oxybutynin Chloride 5 mg 12/03/18 22:00 12/04/18 13:38 Ditropan - PO 5 mg TID [facility] Administration Oxycodone HCl 80 mg 12/03/18 22:00 12/04/18 09:14 Oxycontin - PO 80 mg BID [facility] Administration Oxycodone HCl 30 mg 12/04/18 12:26 12/04/18 12:35 Roxicodone - PO 30 mg Q6H PRN Administration PAIN LEVEL 7 - 10 Pantoprazole Sodium 40 mg 12/04/18 10:00 12/04/18 09:16 Protonix - PO 40 mg DAILY [facility] Administration Polyethylene Glycol 17 gm 12/04/18 10:00 12/04/18 09:17 Miralax (For Daily Use) - PO Not Given DAILY [facility] Pregabalin 100 mg 12/03/18 22:00 12/04/18 13:38 Lyrica - PO 100 mg TID [facility] Administration Senna 2 tab 12/03/18 18:18 Senna - PO HS PRN CONSTIPATION ASSESSMENT/PLAN: Patient is a 63 year old female with a significant past medical history of hypertension, anxiety, depression, chronic pain and chronic left hip left wound. She is here for left hip wound debridement and closure. Surgery: Chronic left hip wound Has been treated with left wound vac. POD #1 Left hip repeat washout and wound vac application. Post op care: bowel regimen, incentive spirometer, pain management. surgery follow up and recommendations. Card: Hypertension. BP stable. On lisinopril Hematology Acute blood loss anemia. for 2 units of prbc today Neuro: Depression continue duloxetine, valium PRN Chronic pain/back pain and left hip pain. On high dose oxycodone 30mg prn and oxycontin 80mg bid for chronic back pain added lidocaine patch fen Fluids: PO intake adequate Electrolytes: replete as indicated Nutrition: regular diet prophy on SCDs no a/c given 2/2 to anemia full code Visit type - Emergency Visit Emergency Visit: Yes ED Registration Date: 11/19/18 Care time: The patient presented to the Emergency Department on the above date and was hospitalized for further evaluation of their emergent condition. - New Patient This patient is new to me today: No - Critical Care Critical Care patient: No - Discharge Referral Referred to [facility] Med P.C.: No
[2018-12-04] MEDS: LIDOCAINE PATCH REMOVAL MC SCH (21:51)
[2018-12-05] MEDS ORDERED: LIDOCAINE 5% TOPICAL PATCH TP ONE (01:46)
[2018-12-05] MEDS: OXYBUTYNIN CHLORIDE 5 MG TABLET PO SCH ×3 (05:24→22:01)
[2018-12-05] MEDS: DOCUSATE SODIUM 100 MG CAPSULE (FP) PO SCH ×3 (05:24→21:58)
[2018-12-05] MEDS: PREGABALIN 100 MG CAPSULE PO SCH ×3 (05:24→21:59)
[2018-12-05 07:19] LABS: BASO % 0.9 % (0-2.0); EOS % 3.2 % (0-4.5); HEMATOCRIT 26.6 % (32.4-45.2); LYMPH % 16.8 % (8-40); MCH 25.7 pg (25.7-33.7); MCHC 33.8 g/dl (32.0-36.0); MEAN CELL VOLUME 75.9 fl (80-96); MEAN PLT VOLUME 7.1 fl (7.5-11.1); MONO % 10.6 % (3.8-10.2); NEUT % 68.5 % (42.8-82.8); PLATELET COUNT 517 K/MM3 (134-434); WHITE BLOOD COUNT 7.3 K/mm3 (4.0-10.0)
[2018-12-05 08:21] LABS: ALBUMIN 1.6 g/dl (3.4-5.0); ALK PHOS 78 U/L (45-117); ANION GAP 7 MMOL/L (8-16); BILIRUBIN,TOTAL 0.3 mg/dL (0.2-1); BLOOD UREA NITROGEN 21 mg/dL (7-18); CHLORIDE 110 mmol/L (98-107); CO2 20 mmol/L (21-32); CREATININE 0.7 mg/dL (0.55-1.3); GLUCOSE,RANDOM 79 mg/dL (74-106); MAGNESIUM 1.7 mg/dL (1.8-2.4); POTASSIUM 4.5 mmol/L (3.5-5.1); SGOT/AST 12 U/L (15-37); SGPT/ALT 14 U/L (13-61); SODIUM 137 mmol/L (136-145); TOT PROT 5.4 g/dl (6.4-8.2)
[2018-12-05 10:32] LABS: ANISOCYTOSIS 1+; MACROCYTOSIS 0; PLATELET ESTIMATE INCREASED
[2018-12-05] MEDS ORDERED: PT OWN MED DRAWER 7, Y5N ONE (11:15)
[2018-12-05] MEDS: DOXYCYCLINE HYCLATE 100 MG CAPSULE PO SCH ×2 (11:23→18:33)
[2018-12-05] MEDS: ASPIRIN 325 MG ENTERIC COATED TABLET (FP) PO SCH (11:23)
[2018-12-05] MEDS: PANTOPRAZOLE 40 MG TABLET (FP) PO SCH (11:23)
[2018-12-05] MEDS: LISINOPRIL 10 MG TABLET (FP) PO SCH (11:24)
[2018-12-05] MEDS: CYCLOBENZAPRINE HCL 5 MG TABLET PO SCH (11:24)
[2018-12-05] MEDS: oxyCODONE HCL 80 MG SUSTAINED ACTING TABLET PO SCH ×2 (11:27→21:59)
[2018-12-05] MEDS: DULoxetine HCL 30 MG CAPSULE.DR (FP) PO SCH ×2 (11:28→21:58)
--- NOTE | 2018-12-05 12:09 | PN ---
Physical Exam: SUBJECTIVE: Patient seen and examined at the bedside. OBJECTIVE: for OR today Vital Signs Period Temp Pulse Resp BP Sys/Vargas Pulse Ox Last 24 Hr 98.4 F-98.6 F 66-107 18-22 87-150/55-81 96 GENERAL: The patient is awake, alert, in no acute distress. HEAD: Normal with no signs of trauma. EYES: PERRL, extraocular movements intact, sclera anicteric, conjunctiva clear. No ptosis. ENT: Ears normal, nares patent, oropharynx clear without exudates, moist mucous membranes. NECK: Trachea midline, full range of motion, supple. LUNGS: Breath sounds equal, clear to auscultation bilaterally, no wheezes HEART: rrr ABDOMEN: Soft, nontender, nondistended, normoactive bowel sounds, no guarding EXTREMITIES: no edema. NEUROLOGICAL: calm, cooperative PSYCH: Normal mood, normal affect. SKIN: left hip wound vac Laboratory Results - last 24 hr 12/04/18 12/05/18 12/05/18 09:40 06:30 06:30 WBC 7.3 RBC 3.50 L Hgb 9.0 L Hct 26.6 L D MCV 75.9 L MCH 25.7 MCHC 33.8 RDW 21.0 H Plt Count 517 H D MPV 7.1 L Absolute Neuts (auto) 5.0 Neutrophils % 68.5 Lymphocytes % 16.8 D Monocytes % 10.6 H Eosinophils % 3.2 D Basophils % 0.9 Nucleated RBC % 0 Hypochromia 0 Platelet Estimate Increased Polychromasia 0 Poikilocytosis 2+ Anisocytosis 1+ Microcytosis 1+ Macrocytosis 0 Sodium 137 Potassium 4.5 Chloride 110 H Carbon Dioxide 20 L Anion Gap 7 L BUN 21 H Creatinine 0.7 Creat Clearance w eGFR 84.51 Random Glucose 79 Calcium 8.0 L Magnesium 1.7 L Total Bilirubin 0.3 AST 12 L ALT 14 Alkaline Phosphatase 78 Total Protein 5.4 L Albumin 1.6 L Blood Type A POSITIVE Antibody Screen Negative Crossmatch See Detail Active Medications Generic Name Dose Route Start Last Admin Trade Name Freq PRN Reason Stop Dose Admin Aspirin 325 mg 12/04/18 10:00 12/05/18 11:23 Ecotrin - PO Not Given DAILY [facility] Cyclobenzaprine HCl 5 mg 12/04/18 10:00 12/05/18 11:24 Cyclobenzaprine Hcl PO 5 mg DAILY [facility] Administration Docusate Sodium 100 mg 12/03/18 22:00 12/05/18 05:24 Colace - PO 100 mg TID [facility] Administration Doxycycline Hyclate 100 mg 12/04/18 10:00 12/05/18 11:23 Vibramycin - PO 100 mg BID@1000,1800 [facility] Administration Duloxetine HCl 30 mg 12/03/18 22:00 12/05/18 11:28 Cymbalta - PO 30 mg BID [facility] Administration Fentanyl 25 mcg 12/03/18 18:18 Sublimaze Injection - IVPUSH [id number] PRN PAIN-PACU ORDER X 4 DOSES ONLY Lidocaine 1 patch 12/04/18 12:30 12/04/18 12:36 Lidoderm Patch - TP 1 patch DAILY [facility] Administration Lisinopril 10 mg 12/04/18 10:00 12/05/18 11:24 Prinivil PO 10 mg DAILY [facility] Administration Miscellaneous 1 each 12/04/18 22:00 12/04/18 21:51 Lidoderm Patch Removal MC 1 each DAILY@2200 [facility] Administration Miscellaneous 1 each 12/05/18 22:00 Lidoderm Patch Removal MC DAILY@2200 [facility] Oxybutynin Chloride 5 mg 12/03/18 22:00 12/05/18 05:24 Ditropan - PO 5 mg TID [facility] Administration Oxycodone HCl 80 mg 12/03/18 22:00 12/05/18 11:27 Oxycontin - PO 80 mg BID [facility] Administration Oxycodone HCl 30 mg 12/04/18 12:26 12/04/18 20:06 Roxicodone - PO 30 mg Q6H PRN Administration PAIN LEVEL 7 - 10 Pantoprazole Sodium 40 mg 12/04/18 10:00 12/05/18 11:23 Protonix - PO 40 mg DAILY [facility] Administration Polyethylene Glycol 17 gm 12/04/18 10:00 12/04/18 09:17 Miralax (For Daily Use) - PO Not Given DAILY [facility] Pregabalin 100 mg 12/03/18 22:00 12/05/18 05:24 Lyrica - PO 100 mg TID [facility] Administration Senna 2 tab 12/03/18 18:18 Senna - PO HS PRN CONSTIPATION ASSESSMENT/PLAN: Patient is a 63 year old female with a significant past medical history of hypertension, anxiety, depression, chronic pain and chronic left hip left wound. She is here for left hip wound debridement and closure. Surgery: Chronic left hip wound Has been treated with left wound vac. POD #2 Left hip repeat washout and wound vac application. for the OR today with Dr. Moya Post op care: bowel regimen, incentive spirometer, pain management. surgery follow up and recommendations. Card: Hypertension. BP stable. On lisinopril Hematology Acute blood loss anemia. for 2 units of prbc on 12/04. hmg/hct stable. Neuro: Depression continue duloxetine, valium PRN Chronic pain/back pain and left hip pain. On high dose oxycodone 30mg prn and oxycontin 80mg bid for chronic back pain added lidocaine patch fen Fluids: PO intake adequate Electrolytes: replete as indicated Nutrition: regular diet prophy on SCDs no a/c given 2/2 to anemia full code Visit type - Emergency Visit Emergency Visit: Yes ED Registration Date: 11/19/18 Care time: The patient presented to the Emergency Department on the above date and was hospitalized for further evaluation of their emergent condition. - New Patient This patient is new to me today: No - Critical Care Critical Care patient: No - Discharge Referral Referred to [facility] Med [facility].: No
[2018-12-05] MEDS: POLYETHYLENE GLYCOL 3350 119 GM BTL PO SCH (14:44)
[2018-12-05] MEDS: LIDOCAINE 5% TOPICAL PATCH TP SCH (14:53)
[2018-12-05] MEDS ORDERED: RANITIDINE HCL 150 MG TABLET (FP) PO ONE (15:04)
[2018-12-05] MEDS: oxyCODONE HCL 5 MG TABLET PO PRN (15:46)
--- NOTE | 2018-12-05 18:08 | PN ---
Progress Note (short form) - Note Progress Note: Planning on repear washout and wound vac on Monday and Monday for explant femoral component. Continue Nutritional support Pain mx NPO Midnight v for OR Monday
[2018-12-05] MEDS: LIDOCAINE PATCH REMOVAL MC SCH ×2 (22:00→22:08)
[2018-12-06] MEDS: PREGABALIN 100 MG CAPSULE PO SCH ×3 (07:07→22:07)
[2018-12-06] MEDS: DOCUSATE SODIUM 100 MG CAPSULE (FP) PO SCH ×3 (07:08→22:06)
[2018-12-06] MEDS: OXYBUTYNIN CHLORIDE 5 MG TABLET PO SCH ×3 (07:08→22:07)
[2018-12-06] MEDS: oxyCODONE HCL 5 MG TABLET PO PRN (08:14)
[2018-12-06] MEDS ORDERED: MAG HYDROX/AL HYDROX/SIMETH 30 ML UNIT-DOSE CUP PO ONE (09:04)
[2018-12-06] MEDS ORDERED: PT OWN MED DRAWER 7, Y5N ONE (09:19)
[2018-12-06] MEDS: DOXYCYCLINE HYCLATE 100 MG CAPSULE PO SCH ×2 (09:21→18:06)
[2018-12-06] MEDS: LISINOPRIL 10 MG TABLET (FP) PO SCH (09:21)
[2018-12-06] MEDS: PANTOPRAZOLE 40 MG TABLET (FP) PO SCH (09:21)
[2018-12-06] MEDS: ASPIRIN 325 MG ENTERIC COATED TABLET (FP) PO SCH (09:21)
[2018-12-06] MEDS: CYCLOBENZAPRINE HCL 5 MG TABLET PO SCH (09:22)
[2018-12-06] MEDS: DULoxetine HCL 30 MG CAPSULE.DR (FP) PO SCH ×2 (09:23→22:07)
[2018-12-06] MEDS: LIDOCAINE 5% TOPICAL PATCH TP SCH (09:23)
[2018-12-06] MEDS: POLYETHYLENE GLYCOL 3350 119 GM BTL PO SCH (09:26)
[2018-12-06] MEDS: oxyCODONE HCL 80 MG SUSTAINED ACTING TABLET PO SCH ×2 (11:00→22:06)
[2018-12-06 11:35] LABS: BASO % 0.5 % (0-2.0); HEMATOCRIT 27.6 % (32.4-45.2); HEMOGLOBIN 9.5 GM/dL (10.7-15.3); LYMPH % 10.7 % (8-40); MCH 25.8 pg (25.7-33.7); MCHC 34.3 g/dl (32.0-36.0); MEAN CELL VOLUME 75.3 fl (80-96); MEAN PLT VOLUME 6.9 fl (7.5-11.1); MONO % 6.7 % (3.8-10.2); NEUT % 80.1 % (42.8-82.8); PLATELET COUNT 585 K/MM3 (134-434); RBC 3.66 M/mm3 (3.60-5.2); RDW 21.6 % (11.6-15.6); WHITE BLOOD COUNT 8.4 K/mm3 (4.0-10.0)
--- NOTE | 2018-12-06 13:01 | PN ---
Physical Exam: SUBJECTIVE: Patient seen and examined at the bedside. she is crying and upset and telling me about her son and his constant need for her to support him financially. c/o of indigestion. OBJECTIVE: Vital Signs Period Temp Pulse Resp BP Sys/Vargas Pulse Ox Last 24 Hr 98.2 F-98.7 F 102-111 18-20 114-154/78-87 96 GENERAL: The patient is awake, alert, in no acute distress. HEAD: Normal with no signs of trauma. EYES: PERRL, extraocular movements intact, sclera anicteric, conjunctiva clear. No ptosis. ENT: Ears normal, nares patent, oropharynx clear without exudates, moist mucous membranes. NECK: Trachea midline, full range of motion, supple. LUNGS: Breath sounds equal, clear to auscultation bilaterally, no wheezes HEART: rrr ABDOMEN: Soft, nontender, nondistended, normoactive bowel sounds, no guarding EXTREMITIES: no edema. NEUROLOGICAL: calm, cooperative PSYCH: Normal mood, normal affect. SKIN: left hip wound vac Laboratory Results - last 24 hr 12/06/18 11:00 WBC 8.4 RBC 3.66 Hgb 9.5 L Hct 27.6 L MCV 75.3 L MCH 25.8 MCHC 34.3 RDW 21.6 H Plt Count 585 H MPV 6.9 L Absolute Neuts (auto) 6.7 Neutrophils % 80.1 Lymphocytes % 10.7 D Monocytes % 6.7 Eosinophils % 2.0 Basophils % 0.5 Nucleated RBC % 0 Active Medications Generic Name Dose Route Start Last Admin Trade Name Mattq PRN Reason Stop Dose Admin Aspirin 325 mg 12/04/18 10:00 12/06/18 09:21 Ecotrin - PO 325 mg DAILY [facility] Administration Cyclobenzaprine HCl 5 mg 12/04/18 10:00 12/06/18 09:22 Cyclobenzaprine Hcl PO 5 mg DAILY [facility] Administration Docusate Sodium 100 mg 12/03/18 22:00 12/06/18 07:08 Colace - PO 100 mg TID [facility] Administration Doxycycline Hyclate 100 mg 12/04/18 10:00 12/06/18 09:21 Vibramycin - PO 100 mg BID@1000,1800 [facility] Administration Duloxetine HCl 30 mg 12/03/18 22:00 12/06/18 09:23 Cymbalta - PO 30 mg BID [facility] Administration Ferrous Sulfate 325 mg 12/06/18 22:00 Feosol - PO BID [facility] Lidocaine 1 patch 12/04/18 12:30 12/06/18 09:23 Lidoderm Patch - TP 1 patch DAILY [facility] Administration Lisinopril 10 mg 12/04/18 10:00 12/06/18 09:21 Prinivil PO 10 mg DAILY [facility] Administration Miscellaneous 1 each 12/04/18 22:00 12/05/18 22:00 Lidoderm Patch Removal MC 1 each DAILY@2200 [facility] Administration Miscellaneous 1 each 12/05/18 22:00 12/05/18 22:08 Lidoderm Patch Removal MC 1 each DAILY@2200 [facility] Administration Oxybutynin Chloride 5 mg 12/03/18 22:00 12/06/18 07:08 Ditropan - PO 5 mg TID [facility] Administration Oxycodone HCl 80 mg 12/03/18 22:00 12/06/18 11:00 Oxycontin - PO 80 mg BID [facility] Administration Oxycodone HCl 30 mg 12/04/18 12:26 12/06/18 08:14 Roxicodone - PO 30 mg Q6H PRN Administration PAIN LEVEL 7 - 10 Pantoprazole Sodium 40 mg 12/04/18 10:00 12/06/18 09:21 Protonix - PO 40 mg DAILY [facility] Administration Polyethylene Glycol 17 gm 12/04/18 10:00 12/06/18 09:26 Miralax (For Daily Use) - PO Not Given DAILY [facility] Pregabalin 100 mg 12/03/18 22:00 12/06/18 07:07 Lyrica - PO 100 mg TID [facility] Administration Senna 2 tab 12/03/18 18:18 Senna - PO HS PRN CONSTIPATION ASSESSMENT/PLAN: Patient is a 63 year old female with a significant past medical history of hypertension, anxiety, depression, chronic pain and chronic left hip left wound. She is here for left hip wound debridement and closure. Surgery: Chronic left hip wound Has been treated with left wound vac. POD #3 Left hip repeat washout and wound vac application. purulent sero sang. drainage noted in wound vac. Post op care: bowel regimen, incentive spirometer, pain management. surgery follow up and recommendations. Card: Hypertension. BP stable. On lisinopril Hematology Acute blood loss anemia. s/p 2 units of prbc on 12/04. hmg/hct stable. started on iron supplements. Neuro: Depression continue duloxetine, valium PRN Chronic pain/back pain and left hip pain. On high dose oxycodone 30mg prn and oxycontin 80mg bid for chronic back pain added lidocaine patch for back pain. fen Fluids: PO intake adequate Electrolytes: replete as indicated Nutrition: regular diet prophy on SCDs no a/c given 2/2 to anemia. on SCDs bilaterally full code Visit type - Emergency Visit Emergency Visit: Yes ED Registration Date: 11/19/18 Care time: The patient presented to the Emergency Department on the above date and was hospitalized for further evaluation of their emergent condition. - New Patient This patient is new to me today: No - Critical Care Critical Care patient: No - Discharge Referral Referred to [facility] Med P.C.: No
[2018-12-06 13:24] LABS: ALBUMIN 1.7 g/dl (3.4-5.0); ALK PHOS 90 U/L (45-117); ANION GAP 6 MMOL/L (8-16); BILIRUBIN,TOTAL 0.2 mg/dL (0.2-1); BLOOD UREA NITROGEN 15 mg/dL (7-18); CHLORIDE 108 mmol/L (98-107); CO2 25 mmol/L (21-32); CREATININE 0.7 mg/dL (0.55-1.3); GLUCOSE,RANDOM 92 mg/dL (74-106); MAGNESIUM 1.6 mg/dL (1.8-2.4); POTASSIUM 4.8 mmol/L (3.5-5.1); SGOT/AST 11 U/L (15-37); SGPT/ALT 12 U/L (13-61); SODIUM 139 mmol/L (136-145); TOT PROT 5.6 g/dl (6.4-8.2)
[2018-12-06] MEDS ORDERED: MAGNESIUM OXIDE 400 MG TABLET (FP) PO ONE (13:27)
[2018-12-06] MEDS ORDERED: SIMETHICONE 40 MG/0.6 ML BOTTLE PO PRN (14:42)
[2018-12-06] MEDS ORDERED: CARBAMIDE PEROXIDE 6.5% OTIC 15 ML BOTTLE AS ONE (14:43)
[2018-12-06] MEDS ORDERED: MAG HYDROX/AL HYDROX/SIMETH -MYLANTA- ORAL SUSPENSION PO SCH (18:00)
[2018-12-06] MEDS: FERROUS SO4 325 MG TABLET (FP) PO SCH (18:06)
[2018-12-06] MEDS: MAG HYDROX/AL HYDROX/SIMETH 30 ML UNIT-DOSE CUP PO PRN (18:06)
[2018-12-06] MEDS: LIDOCAINE PATCH REMOVAL MC SCH ×2 (22:08)
[2018-12-07] MEDS: DOCUSATE SODIUM 100 MG CAPSULE (FP) PO SCH ×3 (06:11→22:56)
[2018-12-07] MEDS: OXYBUTYNIN CHLORIDE 5 MG TABLET PO SCH ×4 (06:11→22:58)
[2018-12-07] MEDS: PREGABALIN 100 MG CAPSULE PO SCH ×4 (06:12→22:58)
[2018-12-07 07:35] LABS: BASO % 0.6 % (0-2.0); EOS % 3.2 % (0-4.5); HEMATOCRIT 30.3 % (32.4-45.2); HEMOGLOBIN 10.3 GM/dL (10.7-15.3); MCHC 34.2 g/dl (32.0-36.0); MEAN PLT VOLUME 6.8 fl (7.5-11.1); MONO % 8.9 % (3.8-10.2); NEUT % 71.3 % (42.8-82.8); PLATELET COUNT 558 K/MM3 (134-434); RBC 3.98 M/mm3 (3.60-5.2); RDW 21.7 % (11.6-15.6); WHITE BLOOD COUNT 8.3 K/mm3 (4.0-10.0)
[2018-12-07 08:28] LABS: ALBUMIN 1.6 g/dl (3.4-5.0); ALK PHOS 83 U/L (45-117); ANION GAP 7 MMOL/L (8-16); BILIRUBIN,TOTAL 0.3 mg/dL (0.2-1); BLOOD UREA NITROGEN 14 mg/dL (7-18); CALCIUM 7.9 mg/dL (8.5-10.1); CHLORIDE 108 mmol/L (98-107); CO2 23 mmol/L (21-32); CREATININE 0.5 mg/dL (0.55-1.3); GLUCOSE,RANDOM 81 mg/dL (74-106); SGOT/AST 7 U/L (15-37); SGPT/ALT 11 U/L (13-61); SODIUM 137 mmol/L (136-145); TOT PROT 5.3 g/dl (6.4-8.2)
[2018-12-07] MEDS: oxyCODONE HCL 5 MG TABLET PO PRN ×2 (08:44→17:13)
[2018-12-07] MEDS: FERROUS SO4 325 MG TABLET (FP) PO SCH ×2 (08:46→17:14)
[2018-12-07] MEDS: MAG HYDROX/AL HYDROX/SIMETH 30 ML UNIT-DOSE CUP PO PRN (08:46)
--- NOTE | 2018-12-07 10:22 | FALL ---
Fall Exam - Event Witnessed fall: Yes Location of Fall: Bathroom Fall from: While ambulating - Pre-Fall Mental Status: Alert, Oriented (patient was found in the bathroom by her primary nurse and was found on her knees. Patient tells me that she was washing her hair, and went to turn to get the towel and lost her balance. she landed on her knees. she denies any LOC loss, no dizziness. denies hitting her head. she does not want me to image her head or knees despite my recommendatins that she have this done.) Current Medications: Current Medications Generic Name Dose Route Start Last Admin Trade Name Freq PRN Reason Stop Dose Admin Al Hydroxide/Mg Hydroxide 30 ml 12/06/18 13:06 12/07/18 08:46 Mylanta Oral Suspension - PO 30 ml Q6HPO PRN Administration DYSPEPSIA Aspirin 325 mg 12/04/18 10:00 12/06/18 09:21 Ecotrin - PO 325 mg DAILY ELKE Administration Cyclobenzaprine HCl 5 mg 12/04/18 10:00 12/06/18 09:22 Cyclobenzaprine Hcl PO 5 mg DAILY ELKE Administration Docusate Sodium 100 mg 12/03/18 22:00 12/07/18 06:11 Colace - PO Not Given TID ELKE Doxycycline Hyclate 100 mg 12/04/18 10:00 12/06/18 18:06 Vibramycin - PO 100 mg BID@1000,1800 ELKE Administration Duloxetine HCl 30 mg 12/03/18 22:00 12/06/18 22:07 Cymbalta - PO 30 mg BID ELKE Administration Ferrous Sulfate 325 mg 12/06/18 17:30 12/07/18 08:46 Feosol - PO Not Given BIDWM ELKE Lidocaine 1 patch 12/04/18 12:30 12/06/18 09:23 Lidoderm Patch - TP 1 patch DAILY ELKE Administration Lisinopril 10 mg 12/04/18 10:00 12/06/18 09:21 Prinivil PO 10 mg DAILY ELKE Administration Miscellaneous 1 each 12/04/18 22:00 12/06/18 22:08 Lidoderm Patch Removal MC 1 each DAILY@2200 ELKE Administration Miscellaneous 1 each 12/05/18 22:00 12/06/18 22:08 Lidoderm Patch Removal MC 1 each DAILY@2200 ELKE Administration Oxybutynin Chloride 5 mg 12/03/18 22:00 12/07/18 06:11 Ditropan - PO Not Given TID ELKE Oxycodone HCl 80 mg 12/03/18 22:00 12/06/18 22:06 Oxycontin - PO 80 mg BID ELKE Administration Oxycodone HCl 30 mg 12/04/18 12:26 12/07/18 08:44 Roxicodone - PO 30 mg Q6H PRN Administration PAIN LEVEL 7 - 10 Pantoprazole Sodium 40 mg 12/04/18 10:00 12/06/18 09:21 Protonix - PO 40 mg DAILY ELKE Administration Polyethylene Glycol 17 gm 12/04/18 10:00 12/06/18 09:26 Miralax (For Daily Use) - PO Not Given DAILY ELKE Pregabalin 100 mg 12/03/18 22:00 12/07/18 06:12 Lyrica - PO Not Given TID ELKE Senna 2 tab 12/03/18 18:18 Senna - PO HS PRN CONSTIPATION Simethicone 40 mg 12/06/18 14:42 Mylicon Liquid - PO Q6H PRN INDIGESTION - Post-Fall Patient Outcome: Abrasion/Bruise Exam Findings: small bruise of left knee, superficial. xray of this knee to be ordered but patient is refusing any an all imaging. Treatment: Ice Pack Vital Signs: Vital Signs Temperature 97.5 F L 12/07/18 08:00 Pulse Rate 101 H 12/07/18 08:00 Respiratory Rate 18 12/07/18 08:00 Blood Pressure 137/81 12/07/18 08:00 O2 Sat by Pulse Oximetry (%) 99 12/06/18 09:00 LOC Post-Fall: Unchanged Identify factors for HIGH RISK for Head Injury: None of the above Critical Care Total Critical Care Time (in minutes): 50 Critical Care Statement: The care of this patient involved high complexity decision making to prevent further life threatening deterioration of the patient 's condition and/or to evaluate & treat vital organ system(s) failure or risk of failure.
--- NOTE | 2018-12-07 10:26 | PN ---
Physical Exam: SUBJECTIVE: Patient seen and examined at the bedside. had an unwitnessed fall this morning. she was washing her hair and lost her balance when she went to retrieve the towel. fell onto her knees. denies LOC loss, denies dizziness or shortness of breath. OBJECTIVE: small left knee abrasion that appear superficial noted she is refusing imaging of left knee, refusing head ct discussed importance of imaging, but refusing will order PT Vital Signs Period Temp Pulse Resp BP Sys/Vargas Pulse Ox Last 24 Hr 97.5 F-99.1 F 82-110 18-20 105-137/51-81 GENERAL: The patient is awake, alert, in no acute distress. HEAD: Normal with no signs of trauma. EYES: PERRL, extraocular movements intact, sclera anicteric, conjunctiva clear. No ptosis. ENT: Ears normal, nares patent, oropharynx clear without exudates, moist mucous membranes. NECK: Trachea midline, full range of motion, supple. LUNGS: Breath sounds equal, clear to auscultation bilaterally, no wheezes HEART: rrr ABDOMEN: Soft, nontender, nondistended, normoactive bowel sounds, no guarding EXTREMITIES: no edema. left knee small abrasion, superficial NEUROLOGICAL: calm, cooperative PSYCH: Normal mood, normal affect. SKIN: left hip wound vac Laboratory Results - last 24 hr 12/06/18 12/06/18 12/07/18 11:00 11:00 06:30 WBC 8.4 8.3 RBC 3.66 3.98 Hgb 9.5 L 10.3 L Hct 27.6 L 30.3 L MCV 75.3 L 76.0 L MCH 25.8 26.0 MCHC 34.3 34.2 RDW 21.6 H 21.7 H Plt Count 585 H 558 H MPV 6.9 L 6.8 L Absolute Neuts (auto) 6.7 5.9 Neutrophils % 80.1 71.3 Lymphocytes % 10.7 D 16.0 D Monocytes % 6.7 8.9 Eosinophils % 2.0 3.2 Basophils % 0.5 0.6 Nucleated RBC % 0 0 Sodium 139 Potassium 4.8 Chloride 108 H Carbon Dioxide 25 Anion Gap 6 L BUN 15 Creatinine 0.7 Creat Clearance w eGFR 84.51 Random Glucose 92 Calcium 8.0 L Magnesium 1.6 L Total Bilirubin 0.2 AST 11 L ALT 12 L Alkaline Phosphatase 90 Total Protein 5.6 L Albumin 1.7 L 12/07/18 06:30 WBC RBC Hgb Hct MCV MCH MCHC RDW Plt Count MPV Absolute Neuts (auto) Neutrophils % Lymphocytes % Monocytes % Eosinophils % Basophils % Nucleated RBC % Sodium 137 Potassium 4.0 Chloride 108 H Carbon Dioxide 23 Anion Gap 7 L BUN 14 Creatinine 0.5 L Creat Clearance w eGFR 124.61 Random Glucose 81 Calcium 7.9 L Magnesium Total Bilirubin 0.3 AST 7 L ALT 11 L Alkaline Phosphatase 83 Total Protein 5.3 L Albumin 1.6 L Active Medications Generic Name Dose Route Start Last Admin Trade Name Freq PRN Reason Stop Dose Admin Al Hydroxide/Mg Hydroxide 30 ml 12/06/18 13:06 12/07/18 08:46 Mylanta Oral Suspension - PO 30 ml Q6HPO PRN Administration DYSPEPSIA Aspirin 325 mg 12/04/18 10:00 12/06/18 09:21 Ecotrin - PO 325 mg DAILY ELKE Administration Cyclobenzaprine HCl 5 mg 12/04/18 10:00 12/06/18 09:22 Cyclobenzaprine Hcl PO 5 mg DAILY ELKE Administration Docusate Sodium 100 mg 12/03/18 22:00 12/07/18 06:11 Colace - PO Not Given TID ELKE Doxycycline Hyclate 100 mg 12/04/18 10:00 12/06/18 18:06 Vibramycin - PO 100 mg BID@1000,1800 ELKE Administration Duloxetine HCl 30 mg 12/03/18 22:00 12/06/18 22:07 Cymbalta - PO 30 mg BID ELKE Administration Ferrous Sulfate 325 mg 12/06/18 17:30 12/07/18 08:46 Feosol - PO Not Given BIDWM ELKE Lidocaine 1 patch 12/04/18 12:30 12/06/18 09:23 Lidoderm Patch - TP 1 patch DAILY ELKE Administration Lisinopril 10 mg 12/04/18 10:00 12/06/18 09:21 Prinivil PO 10 mg DAILY ELKE Administration Miscellaneous 1 each 12/04/18 22:00 12/06/18 22:08 Lidoderm Patch Removal MC 1 each DAILY@2200 ELKE Administration Miscellaneous 1 each 12/05/18 22:00 12/06/18 22:08 Lidoderm Patch Removal MC 1 each DAILY@2200 ELKE Administration Oxybutynin Chloride 5 mg 12/03/18 22:00 12/07/18 06:11 Ditropan - PO Not Given TID ELKE Oxycodone HCl 80 mg 12/03/18 22:00 12/06/18 22:06 Oxycontin - PO 80 mg BID ELKE Administration Oxycodone HCl 30 mg 12/04/18 12:26 12/07/18 08:44 Roxicodone - PO 30 mg Q6H PRN Administration PAIN LEVEL 7 - 10 Pantoprazole Sodium 40 mg 12/04/18 10:00 12/06/18 09:21 Protonix - PO 40 mg DAILY ELKE Administration Polyethylene Glycol 17 gm 12/04/18 10:00 12/06/18 09:26 Miralax (For Daily Use) - PO Not Given DAILY ELKE Pregabalin 100 mg 12/03/18 22:00 12/07/18 06:12 Lyrica - PO Not Given TID ELKE Senna 2 tab 12/03/18 18:18 Senna - PO HS PRN CONSTIPATION Simethicone 40 mg 12/06/18 14:42 Mylicon Liquid - PO Q6H PRN INDIGESTION ASSESSMENT/PLAN: Patient is a 63 year old female with a significant past medical history of hypertension, anxiety, depression, chronic pain and chronic left hip left wound. She is here for left hip wound debridement and closure. Surgery: Chronic left hip wound Has been treated with left wound vac. POD #4 Left hip repeat washout and wound vac application. purulent sero sang. drainage noted in wound vac. Post op care: bowel regimen, incentive spirometer, pain management. surgery follow up and recommendations. Card: Hypertension. BP stable. On lisinopril Hematology Acute blood loss anemia. s/p 2 units of prbc on 12/04. hmg/hct stable. started on iron supplements. Neuro: Depression continue duloxetine, valium PRN Chronic pain/back pain and left hip pain. On high dose oxycodone 30mg prn and oxycontin 80mg bid for chronic back pain added lidocaine patch for back pain. fall fall protocol #2, refusing to be imaged. continue to monitor fall precautions. fen Fluids: PO intake adequate Electrolytes: replete as indicated Nutrition: regular diet prophy on SCDs no a/c given 2/2 to anemia. on SCDs bilaterally full code Visit type - Emergency Visit Emergency Visit: Yes ED Registration Date: 11/19/18 Care time: The patient presented to the Emergency Department on the above date and was hospitalized for further evaluation of their emergent condition. - New Patient This patient is new to me today: No - Critical Care Critical Care patient: No - Discharge Referral Referred to [facility] Med P.C.: No
[2018-12-07] MEDS: LIDOCAINE 5% TOPICAL PATCH TP SCH (12:17)
[2018-12-07] MEDS: PANTOPRAZOLE 40 MG TABLET (FP) PO SCH (12:18)
[2018-12-07] MEDS: oxyCODONE HCL 80 MG SUSTAINED ACTING TABLET PO SCH ×2 (12:18→22:56)
[2018-12-07] MEDS: DOXYCYCLINE HYCLATE 100 MG CAPSULE PO SCH ×2 (12:18→17:14)
[2018-12-07] MEDS: CYCLOBENZAPRINE HCL 5 MG TABLET PO SCH (12:19)
[2018-12-07] MEDS: DULoxetine HCL 30 MG CAPSULE.DR (FP) PO SCH ×2 (12:19→22:58)
[2018-12-07] MEDS: POLYETHYLENE GLYCOL 3350 119 GM BTL PO SCH (12:19)
[2018-12-07] MEDS: LISINOPRIL 10 MG TABLET (FP) PO SCH (12:19)
[2018-12-07] MEDS: ASPIRIN 325 MG ENTERIC COATED TABLET (FP) PO SCH (12:20)
[2018-12-07 12:24] LABS: INR 1.19 (0.83-1.09); PROTHROMBIN TIME (PATIENT) 14.1 SEC (9.7-13.0)
[2018-12-07] MEDS ORDERED: PROPOFOL 20 ML ONE (20:19)
[2018-12-07] MEDS ORDERED: LIDOCAINE HCL/PF 2% SDV 5ML VIAL ONE (20:19)
[2018-12-07] MEDS: LIDOCAINE PATCH REMOVAL MC SCH ×2 (22:59)
[2018-12-08] MEDS: oxyCODONE HCL 5 MG TABLET PO PRN ×2 (06:37→15:07)
[2018-12-08] MEDS: DOCUSATE SODIUM 100 MG CAPSULE (FP) PO SCH ×3 (06:39→22:35)
[2018-12-08] MEDS: OXYBUTYNIN CHLORIDE 5 MG TABLET PO SCH ×3 (06:39→22:37)
[2018-12-08] MEDS: PREGABALIN 100 MG CAPSULE PO SCH ×3 (06:39→22:36)
[2018-12-08 08:15] LABS: BASO % 0.6 % (0-2.0); EOS % 3.6 % (0-4.5); HEMOGLOBIN 9.4 GM/dL (10.7-15.3); LYMPH % 14.6 % (8-40); MCH 25.5 pg (25.7-33.7); MCHC 33.7 g/dl (32.0-36.0); MEAN CELL VOLUME 75.7 fl (80-96); MEAN PLT VOLUME 6.7 fl (7.5-11.1); MONO % 9.5 % (3.8-10.2); NEUT % 71.7 % (42.8-82.8); PLATELET COUNT 505 K/MM3 (134-434); RDW 22.1 % (11.6-15.6); WHITE BLOOD COUNT 8.1 K/mm3 (4.0-10.0)
[2018-12-08 08:27] LABS: ALBUMIN 1.6 g/dl (3.4-5.0); ALK PHOS 84 U/L (45-117); ANION GAP 8 MMOL/L (8-16); BILIRUBIN,TOTAL 0.1 mg/dL (0.2-1); BLOOD UREA NITROGEN 13 mg/dL (7-18); CALCIUM 7.8 mg/dL (8.5-10.1); CHLORIDE 109 mmol/L (98-107); CO2 23 mmol/L (21-32); CREATININE 0.6 mg/dL (0.55-1.3); GLUCOSE,RANDOM 90 mg/dL (74-106); POTASSIUM 4.4 mmol/L (3.5-5.1); SGOT/AST 7 U/L (15-37); SGPT/ALT 10 U/L (13-61); SODIUM 140 mmol/L (136-145); TOT PROT 5.3 g/dl (6.4-8.2)
--- NOTE | 2018-12-08 09:42 | OP ---
DATE OF OPERATION: DATE OF DICTATION: 12/07/2018 SURGEON: Albert Moya MD ANESTHESIA: General. PREOPERATIVE DIAGNOSIS: Chronic hip wound for general anesthesia, incision, drainage, and wound vacuum assisted closure change. POSTOPERATIVE DIAGNOSIS: Chronic hip wound for general anesthesia, incision, drainage, and wound vacuum assisted closure change. OPERATION PERFORMED: 1. Removal of wound vacuum assisted closure. 2. Incision, drainage, debridement of left hip wound. 3. Insertion of new wound vacuum assisted closure. ANESTHESIA: General. POSITION: Left lateral decubitus, left side up. PROCEDURE: Under general anesthesia, the original wound VAC was removed. The skin was cleansed with Betadine scrub solution and wiped off with alcohol. DuraPrep applied. Cultures were taken for microscopy, culture and sensitivity. Once the wound VACs were removed, the tissues appeared unhealthy. Anaerobics changed odor noted. The wounds were washed out thoroughly with 5 L of saline and Betascrub used to wash out and cleanse the biofilm. Soft tissue resected and discarded using scissors and knife. The prosthesis in situ appeared clean and uncomplicated. After thorough lavage and washout, a new wound VAC was inserted. Large sponge utilized. The VAC was sealed. The suction working well when the patient was extricated out of the OR. No complications. MD OSVALDO Oconnor/[id number]
--- NOTE | 2018-12-08 09:47 | PN ---
Progress Note (short form) - Note Progress Note: Post op day#1.S/P I&D,debredment and washout of left hip wound under GA uneventful.Patient stable.No any anesthesia related problem.Patient DC from the anesthesia care.
[2018-12-08] MEDS ORDERED: PT OWN MED DRAWER 7, Y5N ONE (09:58)
[2018-12-08] MEDS: ASPIRIN 325 MG ENTERIC COATED TABLET (FP) PO SCH (10:04)
[2018-12-08] MEDS: FERROUS SO4 325 MG TABLET (FP) PO SCH ×2 (10:04→17:07)
[2018-12-08] MEDS: DOXYCYCLINE HYCLATE 100 MG CAPSULE PO SCH ×2 (10:04→17:07)
[2018-12-08] MEDS: LISINOPRIL 10 MG TABLET (FP) PO SCH (10:04)
[2018-12-08] MEDS: PANTOPRAZOLE 40 MG TABLET (FP) PO SCH (10:04)
[2018-12-08] MEDS: LIDOCAINE 5% TOPICAL PATCH TP SCH (10:05)
[2018-12-08] MEDS: POLYETHYLENE GLYCOL 3350 119 GM BTL PO SCH (10:05)
[2018-12-08] MEDS: CYCLOBENZAPRINE HCL 5 MG TABLET PO SCH (10:05)
[2018-12-08] MEDS: oxyCODONE HCL 80 MG SUSTAINED ACTING TABLET PO SCH ×2 (10:05→22:36)
[2018-12-08] MEDS: DULoxetine HCL 30 MG CAPSULE.DR (FP) PO SCH ×2 (10:05→22:36)
[2018-12-08] MEDS: MAG HYDROX/AL HYDROX/SIMETH 30 ML UNIT-DOSE CUP PO PRN (10:06)
--- NOTE | 2018-12-08 12:22 | PN ---
Physical Exam: SUBJECTIVE: Patient seen and examined c/o stomach burning and acid reflux. was on fluconozone for esophageal candidas OBJECTIVE: Post op day#1.S/P I&D,debredment and washout of left hip wound under GA uneventful Vital Signs Period Temp Pulse Resp BP Sys/Vargas Pulse Ox Last 24 Hr 97.6 F-100 F 90-108 12-20 94-140/57-87 95-100 GENERAL: The patient is awake, alert, in no acute distress. HEAD: Normal with no signs of trauma. EYES: PERRL, extraocular movements intact, sclera anicteric, conjunctiva clear. No ptosis. ENT: Ears normal, nares patent, oropharynx clear without exudates, moist mucous membranes. NECK: Trachea midline, full range of motion, supple. LUNGS: Breath sounds equal, clear to auscultation bilaterally, no wheezes HEART: rrr ABDOMEN: Soft, nontender, nondistended, normoactive bowel sounds, no guarding EXTREMITIES: no edema. left knee small abrasion, superficial NEUROLOGICAL: calm, cooperative PSYCH: Normal mood, normal affect. SKIN: left hip wound vac Laboratory Results - last 24 hr 12/04/18 12/07/18 12/08/18 09:40 11:55 06:40 WBC 8.1 RBC 3.70 Hgb 9.4 L Hct 28.0 L MCV 75.7 L MCH 25.5 L MCHC 33.7 RDW 22.1 H Plt Count 505 H MPV 6.7 L Absolute Neuts (auto) 5.8 Neutrophils % 71.7 Lymphocytes % 14.6 Monocytes % 9.5 Eosinophils % 3.6 Basophils % 0.6 Nucleated RBC % 0 PT with INR 14.10 H INR 1.19 H Sodium Potassium Chloride Carbon Dioxide Anion Gap BUN Creatinine Creat Clearance w eGFR Random Glucose Calcium Total Bilirubin AST ALT Alkaline Phosphatase Total Protein Albumin Blood Type A POSITIVE Antibody Screen Negative Crossmatch See Detail 12/08/18 06:40 WBC RBC Hgb Hct MCV MCH MCHC RDW Plt Count MPV Absolute Neuts (auto) Neutrophils % Lymphocytes % Monocytes % Eosinophils % Basophils % Nucleated RBC % PT with INR INR Sodium 140 Potassium 4.4 Chloride 109 H Carbon Dioxide 23 Anion Gap 8 BUN 13 Creatinine 0.6 Creat Clearance w eGFR 100.97 Random Glucose 90 Calcium 7.8 L Total Bilirubin 0.1 L AST 7 L ALT 10 L Alkaline Phosphatase 84 Total Protein 5.3 L Albumin 1.6 L Blood Type Antibody Screen Crossmatch Active Medications Generic Name Dose Route Start Last Admin Trade Name Mattq PRN Reason Stop Dose Admin Al Hydroxide/Mg Hydroxide 30 ml 12/06/18 13:06 12/08/18 10:06 Mylanta Oral Suspension - PO 30 ml Q6HPO PRN Administration DYSPEPSIA Aspirin 325 mg 12/04/18 10:00 12/08/18 10:04 Ecotrin - PO 325 mg DAILY ELKE Administration Cyclobenzaprine HCl 5 mg 12/04/18 10:00 12/08/18 10:05 Cyclobenzaprine Hcl PO 5 mg DAILY ELKE Administration Docusate Sodium 100 mg 12/03/18 22:00 12/08/18 06:39 Colace - PO Not Given TID [facility] Doxycycline Hyclate 100 mg 12/04/18 10:00 12/08/18 10:04 Vibramycin - PO 100 mg BID@1000,1800 ELKE Administration Duloxetine HCl 30 mg 12/03/18 22:00 12/08/18 10:05 Cymbalta - PO 30 mg BID ELKE Administration Ferrous Sulfate 325 mg 12/06/18 17:30 12/08/18 10:04 Feosol - PO 325 mg BIDWM ELKE Administration Fluconazole 200 mg 12/08/18 12:30 Diflucan - PO DAILY [facility] Lidocaine 1 patch 12/04/18 12:30 12/08/18 10:05 Lidoderm Patch - TP 1 patch DAILY ELKE Administration Lisinopril 10 mg 12/04/18 10:00 12/08/18 10:04 Prinivil PO Not Given DAILY ELKE Miscellaneous 1 each 12/04/18 22:00 12/07/18 22:59 Lidoderm Patch Removal MC 1 each DAILY@2200 ELKE Administration Miscellaneous 1 each 12/05/18 22:00 12/07/18 22:59 Lidoderm Patch Removal MC 1 each DAILY@0 ELKE Administration Oxybutynin Chloride 5 mg 12/03/18 22:00 12/08/18 06:39 Ditropan - PO 5 mg TID ELKE Administration Oxycodone HCl 80 mg 12/03/18 22:00 12/08/18 10:05 Oxycontin - PO 80 mg BID ELKE Administration Oxycodone HCl 30 mg 12/04/18 12:26 12/08/18 06:37 Roxicodone - PO 30 mg Q6H PRN Administration PAIN LEVEL 7 - 10 Pantoprazole Sodium 40 mg 12/04/18 10:00 12/08/18 10:04 Protonix - PO 40 mg DAILY ELKE Administration Polyethylene Glycol 17 gm 12/04/18 10:00 12/08/18 10:05 Miralax (For Daily Use) - PO Not Given DAILY ELKE Pregabalin 100 mg 12/03/18 22:00 12/08/18 06:39 Lyrica - PO 100 mg TID ELKE Administration Senna 2 tab 12/03/18 18:18 Senna - PO HS PRN CONSTIPATION Simethicone 40 mg 12/06/18 14:42 Mylicon Liquid - PO Q6H PRN INDIGESTION ASSESSMENT/PLAN: Patient is a 63 year old female with a significant past medical history of hypertension, anxiety, depression, chronic pain and chronic left hip left wound. She is here for left hip wound debridement and closure. Surgery: Chronic left hip wound Has been treated with left wound vac. POD #1 Left hip repeat washout and wound vac application. purulent sero sang. drainage noted in wound vac. Post op care: bowel regimen, incentive spirometer, pain management. surgery follow up and recommendations. Card: Hypertension. BP stable. On lisinopril Hematology Acute blood loss anemia. s/p 2 units of prbc on 12/04. hmg/hct stable. started on iron supplements. Neuro: Depression continue duloxetine, valium PRN Chronic pain/back pain and left hip pain. On high dose oxycodone 30mg prn and oxycontin 80mg bid for chronic back pain added lidocaine patch for back pain. fall fall protocol #2, refusing to be imaged. continue to monitor fall precautions. fen Fluids: PO intake adequate Electrolytes: replete as indicated Nutrition: regular diet prophy on SCDs start heparin for prolonged hospital stay, hmg/hct stable. monitor daily full code Visit type - Emergency Visit Emergency Visit: Yes ED Registration Date: 11/19/18 Care time: The patient presented to the Emergency Department on the above date and was hospitalized for further evaluation of their emergent condition. - New Patient This patient is new to me today: No - Critical Care Critical Care patient: No - Discharge Referral Referred to [facility] Med P.C.: No
[2018-12-08] MEDS: FLUCONAZOLE 100 MG TABLET (UD) PO SCH (14:02)
--- NOTE | 2018-12-08 15:51 | PN ---
Progress Note (short form) - Note Progress Note: Planning on repeat washout and wound vac on Monday for explant femoral component. Continue Nutritional support Pain mx NPO Midnight Monday for OR Monday Planning femoral component explant
--- NOTE | 2018-12-08 17:07 | EKG ---
Test Reason : Blood Pressure : / mmHG Vent. Rate : 104 BPM Atrial Rate : 104 BPM P-R Int : 132 ms QRS Dur : 076 ms QT Int : 332 ms P-R-T Axes : 062 038 047 degrees QTc Int : 436 ms SINUS TACHYCARDIA OTHERWISE NORMAL ECG WHEN COMPARED WITH ECG OF 23-NOV-2018 09:58, PREMATURE SUPRAVENTRICULAR COMPLEXES ARE NO LONGER PRESENT Confirmed by KELSIE BANDA MD ([id number]) on 12/08/2018 5:07:30 PM Referred By: Albert Moya Confirmed By:KELSIE BANDA MD
[2018-12-08 19:26] LABS: ANISOCYTOSIS 1+; MACROCYTOSIS 1+; PLATELET ESTIMATE ADEQUATE
[2018-12-08] MEDS: HEPARIN NA (PORCINE) 5,000 UNITS/ML 1ML VIAL SQ SCH ×2 (22:35→22:42)
[2018-12-08] MEDS: LIDOCAINE PATCH REMOVAL MC SCH (22:37)
[2018-12-09] MEDS: DOCUSATE SODIUM 100 MG CAPSULE (FP) PO SCH ×3 (05:47→21:35)
[2018-12-09] MEDS: oxyCODONE HCL 5 MG TABLET PO PRN ×2 (05:47→13:14)
[2018-12-09] MEDS: PREGABALIN 100 MG CAPSULE PO SCH ×3 (05:47→21:35)
[2018-12-09] MEDS: OXYBUTYNIN CHLORIDE 5 MG TABLET PO SCH ×3 (05:47→21:35)
[2018-12-09] MEDS: FERROUS SO4 325 MG TABLET (FP) PO SCH ×2 (08:39→17:34)
[2018-12-09 09:34] LABS: BASO % 0.6 % (0-2.0); EOS % 3.9 % (0-4.5); HEMATOCRIT 31.2 % (32.4-45.2); HEMOGLOBIN 10.2 GM/dL (10.7-15.3); MCH 25.3 pg (25.7-33.7); MCHC 32.8 g/dl (32.0-36.0); MEAN CELL VOLUME 77.1 fl (80-96); MEAN PLT VOLUME 6.9 fl (7.5-11.1); MONO % 6.2 % (3.8-10.2); NEUT % 78.3 % (42.8-82.8); PLATELET COUNT 576 K/MM3 (134-434); RBC 4.04 M/mm3 (3.60-5.2); RDW 22.1 % (11.6-15.6); WHITE BLOOD COUNT 10.9 K/mm3 (4.0-10.0)
[2018-12-09] MEDS ORDERED: PT OWN MED DRAWER 7, Y5N ONE (09:57)
[2018-12-09] MEDS: LISINOPRIL 10 MG TABLET (FP) PO SCH (10:00)
[2018-12-09] MEDS: PANTOPRAZOLE 40 MG TABLET (FP) PO SCH (10:00)
[2018-12-09] MEDS: oxyCODONE HCL 80 MG SUSTAINED ACTING TABLET PO SCH ×2 (10:00→21:34)
[2018-12-09] MEDS: ASPIRIN 325 MG ENTERIC COATED TABLET (FP) PO SCH (10:00)
[2018-12-09] MEDS: DOXYCYCLINE HYCLATE 100 MG CAPSULE PO SCH ×2 (10:00→17:34)
[2018-12-09] MEDS: POLYETHYLENE GLYCOL 3350 119 GM BTL PO SCH (10:01)
[2018-12-09] MEDS: CYCLOBENZAPRINE HCL 5 MG TABLET PO SCH (10:01)
[2018-12-09] MEDS: FLUCONAZOLE 100 MG TABLET (UD) PO SCH (10:02)
[2018-12-09] MEDS: DULoxetine HCL 30 MG CAPSULE.DR (FP) PO SCH ×2 (10:02→21:33)
[2018-12-09 10:03] LABS: ALBUMIN 1.8 g/dl (3.4-5.0); ALK PHOS 92 U/L (45-117); ANION GAP 7 MMOL/L (8-16); BILIRUBIN,TOTAL < 0.1 mg/dL (0.2-1); BLOOD UREA NITROGEN 16 mg/dL (7-18); CALCIUM 7.9 mg/dL (8.5-10.1); CHLORIDE 107 mmol/L (98-107); CO2 26 mmol/L (21-32); CREATININE 0.8 mg/dL (0.55-1.3); GLUCOSE,RANDOM 90 mg/dL (74-106); SGOT/AST 9 U/L (15-37); SGPT/ALT 11 U/L (13-61); SODIUM 139 mmol/L (136-145); TOT PROT 5.9 g/dl (6.4-8.2)
[2018-12-09] MEDS: HEPARIN NA (PORCINE) 5,000 UNITS/ML 1ML VIAL SQ SCH ×2 (10:05→21:36)
[2018-12-09] MEDS: LIDOCAINE 5% TOPICAL PATCH TP SCH (10:08)
--- NOTE | 2018-12-09 14:01 | PN ---
Physical Exam: SUBJECTIVE: Patient seen and examined at the bedside. in no acute distress OBJECTIVE: NPO at midnight for OR Vital Signs Period Temp Pulse Resp BP Sys/Vargas Pulse Ox Last 24 Hr 98.2 F-98.7 F 97-115 18-20 102-126/51-80 100-100 GENERAL: The patient is awake, alert, in no acute distress. HEAD: Normal with no signs of trauma. EYES: PERRL, extraocular movements intact, sclera anicteric, conjunctiva clear. No ptosis. ENT: Ears normal, nares patent, oropharynx clear without exudates, moist mucous membranes. NECK: Trachea midline, full range of motion, supple. LUNGS: Breath sounds equal, clear to auscultation bilaterally, no wheezes HEART: rrr ABDOMEN: Soft, nontender, nondistended, normoactive bowel sounds, no guarding EXTREMITIES: no edema. left knee small abrasion, superficial NEUROLOGICAL: calm, cooperative PSYCH: Normal mood, normal affect. SKIN: left hip wound vac Laboratory Results - last 24 hr 12/08/18 12/09/18 12/09/18 06:40 08:30 08:30 WBC 10.9 H RBC 4.04 Hgb 10.2 L Hct 31.2 L MCV 77.1 L MCH 25.3 L MCHC 32.8 RDW 22.1 H Plt Count 576 H MPV 6.9 L Absolute Neuts (auto) 8.6 H Neutrophils % 78.3 Lymphocytes % 11.0 D Monocytes % 6.2 Eosinophils % 3.9 Basophils % 0.6 Nucleated RBC % 0 Platelet Estimate Adequate Anisocytosis 1+ Macrocytosis 1+ Sodium 139 Potassium 5.0 Chloride 107 Carbon Dioxide 26 Anion Gap 7 L BUN 16 Creatinine 0.8 Creat Clearance w eGFR 72.44 Random Glucose 90 Calcium 7.9 L Total Bilirubin < 0.1 L AST 9 L ALT 11 L Alkaline Phosphatase 92 Total Protein 5.9 L Albumin 1.8 L Active Medications Generic Name Dose Route Start Last Admin Trade Name Freq PRN Reason Stop Dose Admin Al Hydroxide/Mg Hydroxide 30 ml 12/06/18 13:06 12/08/18 10:06 Mylanta Oral Suspension - PO 30 ml Q6HPO PRN Administration DYSPEPSIA Aspirin 325 mg 12/04/18 10:00 12/09/18 10:00 Ecotrin - PO 325 mg DAILY ELKE Administration Cyclobenzaprine HCl 5 mg 12/04/18 10:00 12/09/18 10:01 Cyclobenzaprine Hcl PO 5 mg DAILY ELKE Administration Docusate Sodium 100 mg 12/03/18 22:00 12/09/18 13:14 Colace - PO 100 mg TID ELKE Administration Doxycycline Hyclate 100 mg 12/04/18 10:00 12/09/18 10:00 Vibramycin - PO 100 mg BID@1000,1800 ELKE Administration Duloxetine HCl 30 mg 12/03/18 22:00 12/09/18 10:02 Cymbalta - PO 30 mg BID ELKE Administration Ferrous Sulfate 325 mg 12/06/18 17:30 12/09/18 08:39 Feosol - PO 325 mg BIDWM ELKE Administration Fluconazole 200 mg 12/08/18 12:30 12/09/18 10:02 Diflucan - PO 200 mg DAILY ELKE Administration Heparin Sodium (Porcine) 5,000 unit 12/08/18 22:00 12/09/18 10:05 Heparin - SQ Not Given BID [facility] Lidocaine 1 patch 12/04/18 12:30 12/09/18 10:08 Lidoderm Patch - TP 1 patch DAILY ELKE Administration Lisinopril 10 mg 12/04/18 10:00 12/09/18 10:00 Prinivil PO 10 mg DAILY ELKE Administration Miscellaneous 1 each 12/04/18 22:00 12/08/18 22:37 Lidoderm Patch Removal MC 1 each DAILY@2200 ELKE Administration Oxybutynin Chloride 5 mg 12/03/18 22:00 12/09/18 13:14 Ditropan - PO 5 mg TID ELKE Administration Oxycodone HCl 80 mg 12/03/18 22:00 12/09/18 10:00 Oxycontin - PO 80 mg BID ELKE Administration Oxycodone HCl 30 mg 12/08/18 14:49 12/09/18 13:14 Roxicodone - PO 30 mg Q6H PRN Administration PAIN LEVEL 7 - 10 Pantoprazole Sodium 40 mg 12/04/18 10:00 12/09/18 10:00 Protonix - PO 40 mg DAILY ELKE Administration Polyethylene Glycol 17 gm 12/04/18 10:00 12/09/18 10:01 Miralax (For Daily Use) - PO Not Given DAILY [facility] Pregabalin 100 mg 12/03/18 22:00 12/09/18 13:14 Lyrica - PO 100 mg TID ELKE Administration Senna 2 tab 12/03/18 18:18 Senna - PO HS PRN CONSTIPATION Simethicone 40 mg 12/06/18 14:42 Mylicon Liquid - PO Q6H PRN INDIGESTION ASSESSMENT/PLAN: Patient is a 63 year old female with a significant past medical history of hypertension, anxiety, depression, chronic pain and chronic left hip left wound. She is here for left hip wound debridement and closure. Surgery: Chronic left hip wound Has been treated with left wound vac. POD #2 Left hip repeat washout and wound vac application. purulent sero sang. drainage noted in wound vac. Post op care: bowel regimen, incentive spirometer, pain management. surgery follow up and recommendations. Card: Hypertension. BP stable. On lisinopril Hematology Acute blood loss anemia. s/p 2 units of prbc on 12/04. hmg/hct stable. started on iron supplements. Neuro: Depression continue duloxetine, valium PRN Chronic pain/back pain and left hip pain. On high dose oxycodone 30mg prn and oxycontin 80mg bid for chronic back pain added lidocaine patch for back pain. fall fall protocol #2, refusing to be imaged. continue to monitor fall precautions. fen Fluids: PO intake adequate Electrolytes: replete as indicated Nutrition: regular diet prophy on SCDs start heparin for prolonged hospital stay, hmg/hct stable. monitor daily full code Visit type - Emergency Visit Emergency Visit: Yes ED Registration Date: 11/19/18 Care time: The patient presented to the Emergency Department on the above date and was hospitalized for further evaluation of their emergent condition. - New Patient This patient is new to me today: No - Critical Care Critical Care patient: No - Discharge Referral Referred to [facility] Med P.C.: No
[2018-12-09] MEDS: LIDOCAINE PATCH REMOVAL MC SCH (21:37)
[2018-12-10] MEDS: OXYBUTYNIN CHLORIDE 5 MG TABLET PO SCH ×3 (05:56→23:01)
[2018-12-10] MEDS: DOCUSATE SODIUM 100 MG CAPSULE (FP) PO SCH ×3 (05:57→23:03)
[2018-12-10] MEDS: PREGABALIN 100 MG CAPSULE PO SCH ×3 (05:57→23:02)
[2018-12-10] MEDS ORDERED: PT OWN MED DRAWER 7, Y5N ONE ×2 (09:18→18:26)
[2018-12-10] MEDS: oxyCODONE HCL 80 MG SUSTAINED ACTING TABLET PO SCH ×2 (09:50→23:02)
[2018-12-10] MEDS: LIDOCAINE 5% TOPICAL PATCH TP SCH (09:50)
[2018-12-10] MEDS: SODIUM CHLORIDE 1,000 ML IV SCH (09:51)
[2018-12-10] MEDS: CYCLOBENZAPRINE HCL 5 MG TABLET PO SCH (09:52)
[2018-12-10] MEDS: PANTOPRAZOLE 40 MG TABLET (FP) PO SCH (09:52)
[2018-12-10] MEDS: DULoxetine HCL 30 MG CAPSULE.DR (FP) PO SCH ×2 (09:52→23:05)
[2018-12-10] MEDS: LISINOPRIL 10 MG TABLET (FP) PO SCH (09:52)
[2018-12-10] MEDS: DOXYCYCLINE HYCLATE 100 MG CAPSULE PO SCH ×2 (09:52→18:31)
[2018-12-10] MEDS: FERROUS SO4 325 MG TABLET (FP) PO SCH ×2 (09:52→18:31)
[2018-12-10] MEDS: FLUCONAZOLE 100 MG TABLET (UD) PO SCH (09:52)
[2018-12-10] MEDS: POLYETHYLENE GLYCOL 3350 119 GM BTL PO SCH (09:52)
[2018-12-10] MEDS: ASPIRIN 325 MG ENTERIC COATED TABLET (FP) PO SCH (09:53)
[2018-12-10] MEDS: HEPARIN NA (PORCINE) 5,000 UNITS/ML 1ML VIAL SQ SCH (09:53)
[2018-12-10 11:01] LABS: EOS % 5.2 % (0-4.5); HEMOGLOBIN 11.2 GM/dL (10.7-15.3); LYMPH % 14.3 % (8-40); MCH 25.6 pg (25.7-33.7); MEAN CELL VOLUME 77.6 fl (80-96); MEAN PLT VOLUME 6.9 fl (7.5-11.1); MONO % 5.2 % (3.8-10.2); NEUT % 74.3 % (42.8-82.8); PLATELET COUNT 663 K/MM3 (134-434); RBC 4.38 M/mm3 (3.60-5.2); RDW 21.6 % (11.6-15.6)
[2018-12-10 11:15] LABS: INR 1.08 (0.83-1.09); PROTHROMBIN TIME (PATIENT) 12.7 SEC (9.7-13.0)
[2018-12-10 11:30] LABS: ALBUMIN 2.1 g/dl (3.4-5.0); ALK PHOS 112 U/L (45-117); ANION GAP 8 MMOL/L (8-16); BILIRUBIN,TOTAL 0.1 mg/dL (0.2-1); BLOOD UREA NITROGEN 17 mg/dL (7-18); CALCIUM 8.2 mg/dL (8.5-10.1); CHLORIDE 104 mmol/L (98-107); CO2 27 mmol/L (21-32); CREATININE 0.9 mg/dL (0.55-1.3); GLUCOSE,RANDOM 112 mg/dL (74-106); POTASSIUM 4.6 mmol/L (3.5-5.1); SGOT/AST 12 U/L (15-37); SGPT/ALT 13 U/L (13-61); SODIUM 139 mmol/L (136-145); TOT PROT 6.8 g/dl (6.4-8.2)
--- NOTE | 2018-12-10 12:22 | PN ---
Physical Exam: SUBJECTIVE: Patient seen and examined at the bedside. for the OR today for washout and wound vac for explant femoral component. OBJECTIVE: for the OR today per Dr. Moya patient insisted on eating breakfast even though she was NPO staff to notify Dr. Moya Vital Signs Period Temp Pulse Resp BP Sys/Vargas Pulse Ox Last 24 Hr 97.8 F-98.1 F 77-112 18-20 94-142/60-68 100-100 GENERAL: The patient is awake, alert, in no acute distress. HEAD: Normal with no signs of trauma. EYES: PERRL, extraocular movements intact, sclera anicteric, conjunctiva clear. No ptosis. ENT: Ears normal, nares patent, oropharynx clear without exudates, moist mucous membranes. NECK: Trachea midline, full range of motion, supple. LUNGS: Breath sounds equal, clear to auscultation bilaterally, no wheezes HEART: rrr ABDOMEN: Soft, nontender, nondistended, normoactive bowel sounds, no guarding EXTREMITIES: no edema. left knee small abrasion, superficial NEUROLOGICAL: calm, cooperative PSYCH: Normal mood, normal affect. SKIN: left thigh edematous with attached wound vac. sero sang drainage noted on wound vac container. Laboratory Results - last 24 hr 12/10/18 12/10/18 12/10/18 10:30 10:30 10:30 WBC 14.0 H RBC 4.38 Hgb 11.2 Hct 34.0 MCV 77.6 L MCH 25.6 L MCHC 33.0 RDW 21.6 H Plt Count 663 H MPV 6.9 L Absolute Neuts (auto) 10.4 H Neutrophils % 74.3 Lymphocytes % 14.3 D Monocytes % 5.2 Eosinophils % 5.2 H Basophils % 1.0 Nucleated RBC % 0 PT with INR 12.70 INR 1.08 Sodium 139 Potassium 4.6 Chloride 104 Carbon Dioxide 27 Anion Gap 8 BUN 17 Creatinine 0.9 Creat Clearance w eGFR 63.24 Random Glucose 112 H Calcium 8.2 L Total Bilirubin 0.1 L AST 12 L ALT 13 Alkaline Phosphatase 112 Total Protein 6.8 Albumin 2.1 L Active Medications Generic Name Dose Route Start Last Admin Trade Name Freq PRN Reason Stop Dose Admin Al Hydroxide/Mg Hydroxide 30 ml 12/06/18 13:06 12/08/18 10:06 Mylanta Oral Suspension - PO 30 ml Q6HPO PRN Administration DYSPEPSIA Aspirin 325 mg 12/04/18 10:00 12/10/18 09:53 Ecotrin - PO Not Given DAILY ELKE Cyclobenzaprine HCl 5 mg 12/04/18 10:00 12/10/18 09:52 Cyclobenzaprine Hcl PO 5 mg DAILY ELKE Administration Docusate Sodium 100 mg 12/03/18 22:00 12/10/18 05:57 Colace - PO 100 mg TID ELKE Administration Doxycycline Hyclate 100 mg 12/04/18 10:00 12/10/18 09:52 Vibramycin - PO 100 mg BID@1000,1800 ELKE Administration Duloxetine HCl 30 mg 12/03/18 22:00 12/10/18 09:52 Cymbalta - PO 30 mg BID ELKE Administration Ferrous Sulfate 325 mg 12/06/18 17:30 12/10/18 09:52 Feosol - PO 325 mg BIDWM ELKE Administration Fluconazole 200 mg 12/08/18 12:30 12/10/18 09:52 Diflucan - PO 200 mg DAILY [facility] Administration Heparin Sodium (Porcine) 5,000 unit 12/08/18 22:00 12/10/18 09:53 Heparin - SQ Not Given BID [facility] Sodium Chloride 1,000 mls @ 100 mls/hr 12/10/18 00:00 12/10/18 09:51 Normal Saline - IV Not Given ASDIR [facility] Lidocaine 1 patch 12/04/18 12:30 12/10/18 09:50 Lidoderm Patch - TP 1 patch DAILY [facility] Administration Lisinopril 10 mg 12/04/18 10:00 12/10/18 09:52 Prinivil PO 10 mg DAILY [facility] Administration Miscellaneous 1 each 12/04/18 22:00 12/09/18 21:37 Lidoderm Patch Removal MC Not Given DAILY@2200 [facility] Oxybutynin Chloride 5 mg 12/03/18 22:00 12/10/18 05:56 Ditropan - PO 5 mg TID [facility] Administration Oxycodone HCl 80 mg 12/03/18 22:00 12/10/18 09:50 Oxycontin - PO 80 mg BID [facility]KE Administration Oxycodone HCl 30 mg 12/08/18 14:49 12/09/18 13:14 Roxicodone - PO 30 mg Q6H PRN Administration PAIN LEVEL 7 - 10 Pantoprazole Sodium 40 mg 12/04/18 10:00 12/10/18 09:52 Protonix - PO 40 mg DAILY [facility] Administration Polyethylene Glycol 17 gm 12/04/18 10:00 12/10/18 09:52 Miralax (For Daily Use) - PO Not Given DAILY [facility] Pregabalin 100 mg 12/03/18 22:00 12/10/18 05:57 Lyrica - PO 100 mg TID [facility] Administration Senna 2 tab 12/03/18 18:18 Senna - PO HS PRN CONSTIPATION Simethicone 40 mg 12/06/18 14:42 Mylicon Liquid - PO Q6H PRN INDIGESTION ASSESSMENT/PLAN: Patient is a 63 year old female with a significant past medical history of hypertension, anxiety, depression, chronic pain and chronic left hip left wound. She is here for left hip wound debridement and closure per Dr Moya. Surgery: Chronic left hip wound Has been treated with left wound vac and multiple washouts per Dr. Moya. She will be going to the OR today for repeat washout and possible closure. On a wound vac with sero sang drainage. Post op care: bowel regimen, incentive spirometer, pain management. surgery follow up and recommendations. Card: Hypertension. BP stable. On lisinopril Hematology Acute blood loss anemia. s/p 2 units of prbc on 12/04. hmg/hct stable. started on iron supplements. Neuro: Depression continue duloxetine, valium PRN Chronic pain/back pain and left hip pain. On high dose oxycodone 30mg prn and oxycontin 80mg bid for chronic back pain added lidocaine patch for back pain. fall s/p fall on 12/07/18. fall protocol #2, refusing to be imaged. mental status post fall remains at baseline. no signs of injury or trauma. fall precautions. fen Fluids: PO intake adequate Electrolytes: replete as indicated Nutrition: regular diet prophy on SCDs started on heparin, but stopped / to OR today. full code Visit type - Emergency Visit Emergency Visit: Yes ED Registration Date: 11/19/18 Care time: The patient presented to the Emergency Department on the above date and was hospitalized for further evaluation of their emergent condition. - New Patient This patient is new to me today: No - Critical Care Critical Care patient: No - Discharge Referral Referred to [facility] Med P.C.: No
[2018-12-10] MEDS: oxyCODONE HCL 5 MG TABLET PO PRN (12:46)
[2018-12-10] MEDS ORDERED: SUCCINYLCHOLINE CHLORIDE 200 MG/10 ML VIAL ONE (19:11)
[2018-12-10] MEDS ORDERED: PROPOFOL 20 ML ONE (19:11)
[2018-12-10] MEDS ORDERED: PHENYLEPHRINE HCL 10 MG/1 ML SINGLE DOSE VIAL ONE (19:57)
[2018-12-10] MEDS ORDERED: DEXAMETHASONE SOD PHOSPHATE 4 MG/1 ML VIAL ONE (20:14)
[2018-12-10] MEDS ORDERED: ONDANSETRON 4 MG/2 ML VIAL ONE (20:14)
--- NOTE | 2018-12-10 20:57 | PN ---
Progress Note (short form) - Note Progress Note: 63F s/p explant left femoral stem, I&D, and exchange of wound vac dressing POD # 0. -Pain control. -DVT PPx: - Chemical: ASA 81mg PO BID. - Mechanical: SOUTH's, SCD's. -Incentive spirometry. -PT/OT/Rehab, OOB. -NWB LLE. -f/u post-op trial of void - 8 hours max. -f/u AM labs. -Care per medical hospitalist team. -Will plan to exchange wound vac dressing by the end of the week. -Will follow. Albert Moya MD (Orthopaedic Surgery).
--- NOTE | 2018-12-10 21:00 | OP ---
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 2. Chronic infection. 3. 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 Osteotomy left femur. 2. Removal of hardware (explant femoral component). 3. I&D left hip wound. 4. Partial removal of cement mantle. 5. Exchange left hip wound vac Post-Operative Diagnosis: Same as Pre-op Surgeon: Albert Moya Sheet Metal Layout Worker: Gelacio Moya Anesthesiologist/WIRE FRAME MAKER: Mala Swartz Anesthesia: General Specimens Removed: Left hip hardware Estimated Blood Loss (mls): 50 Drains & Tubes with Location: Wound Vac applied, left hip Fluid Volume Replaced (mls): 500 (Crystalloid) Operative Report Dictated: Yes
[2018-12-10] MEDS ORDERED: ACETAMINOPHEN 1000 MG/100 ML VIAL (NON FORMULARY) IVPB ONE ×2 (21:02→21:17)
[2018-12-10] MEDS ORDERED: ONDANSETRON 4 MG/2 ML VIAL IVPUSH PRN (21:02)
[2018-12-10] MEDS ORDERED: ceFAZolin SODIUM 1 GM VIAL ONE (21:04)
[2018-12-10] MEDS ORDERED: ACETAMINOPHEN INJECTION 100 ML IVPB ONE (21:09)
[2018-12-10] MEDS ORDERED: oxyCODONE HCL 80 MG SUSTAINED ACTING TABLET PO SCH (22:00)
[2018-12-10] MEDS: LIDOCAINE PATCH REMOVAL MC SCH (23:04)
[2018-12-11] MEDS: SODIUM CHLORIDE 1,000 ML IV SCH (00:03)
[2018-12-11] MEDS: oxyCODONE HCL 5 MG TABLET PO PRN ×2 (02:06→21:28)
[2018-12-11] MEDS: DOCUSATE SODIUM 100 MG CAPSULE (FP) PO SCH ×3 (06:17→21:32)
[2018-12-11] MEDS: OXYBUTYNIN CHLORIDE 5 MG TABLET PO SCH ×3 (06:18→21:32)
[2018-12-11] MEDS: PREGABALIN 100 MG CAPSULE PO SCH ×3 (06:18→21:33)
[2018-12-11] MEDS ORDERED: MAG HYDROX/AL HYDROX/SIMETH 30 ML UNIT-DOSE CUP PO PRN (07:26)
[2018-12-11] MEDS ORDERED: LIDOCAINE PATCH REMOVAL MC SCH (07:26)
[2018-12-11] MEDS ORDERED: SODIUM CHLORIDE 1,000 ML IV SCH (07:26)
[2018-12-11] MEDS ORDERED: SIMETHICONE 40 MG/0.6 ML BOTTLE PO PRN (07:26)
[2018-12-11] MEDS ORDERED: oxyCODONE HCL 5 MG TABLET PO PRN (07:26)
[2018-12-11] MEDS ORDERED: SENNOSIDES 8.6MG TABLET (FP) PO PRN (07:26)
--- NOTE | 2018-12-11 08:46 | OP ---
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 OPERATION PERFORMED: 1. Partial osteotomy, femur. 2. Explant of femoral component. 3. Incision and drainage, debridement of soft tissue, that is subcutaneous tissue, muscle, and bone. 4. Insertion of a wound vacuum-assisted closure. ANESTHESIA: General. ANTIBIOTICS: Kefzol 1 g given at the end of the procedure. 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 This, in addition, was complicated by the infection, which had a polymicrobial infection at one time MRSA and at other times different bacteria E. coli, diphtheroids, etc. Repeat wound VACs have been performed over an approximately one year period decreasing the size of a massive cavity with a retained endoprosthetic component to prevent bacteria drifting down the endosteal canal to cause osteomyelitis of the femur. Repeated wound VACs and debridements have been performed over the year both at [facility] as well, now [facility], the plan being to with secondary intention allow the wound to close, and this has happened over the year with significant reduction in the size of the cavity appropriately. It was my judgment, at this point in time, that we are starting to think about a proper delayed primary closure, that the hardware needs to be removed which we set about today. OPERATION IN DETAILS: The proximal soft tissue bed which had grown around the femur and noting some osteolysis of the proximal femur, using the LPS extraction instrumentation, an osteotomy was performed at the proximal femur as it was impossible to deliver this component without osteotomizing and disrupting the cement mantle in the proximal element of the mid-shaft of the femur. Once this had been performed, the femoral component was extricated with no problem, and some broken up cement segments also appropriately removed. I left the remaining cement mantle in situ. This will be dealt with at a later date because I do not want this cement mantle, which is seating the bone to develop bacteria between the bone bed and the cement mantle itself. This is a contentious issue, but up to now what we have done has been correct. The bone appears healthy and normal, no osteomyelitis, and the tissues are much healthier. Multiple cultures were taken. The wounds were thoroughly lavaged with 5 L of saline, and debridement was performed of the soft tissue, the bone bed as well, and then a new wound VAC was inserted today, the plan being to hopefully go ahead with the delayed primary closure at the next setting, which will be in 1 weeks time. Possibility for an interim wound VAC change again approximately or Monday this week just to make sure that the soft tissue bed remains healthy and normal. Blood loss no more than 50 mL. Operation went well, no complications. MD OSVALDO Oconnor/[id number]
--- NOTE | 2018-12-11 09:25 | PN ---
Progress Note (short form) - Note Progress Note: Pt POD1 s/p explant L hip hardware under GA. Doing well, pain well controlled. No anesthetic issues/complications noted.
[2018-12-11] MEDS ORDERED: PT OWN MED DRAWER 7, Y5N ONE (09:42)
[2018-12-11] MEDS: LISINOPRIL 10 MG TABLET (FP) PO SCH (09:59)
[2018-12-11] MEDS: POLYETHYLENE GLYCOL 3350 119 GM BTL PO SCH (09:59)
[2018-12-11] MEDS: DOXYCYCLINE HYCLATE 100 MG CAPSULE PO SCH ×2 (10:09→17:33)
[2018-12-11] MEDS: FLUCONAZOLE 100 MG TABLET (UD) PO SCH (10:09)
[2018-12-11] MEDS: FERROUS SO4 325 MG TABLET (FP) PO SCH ×2 (10:10→17:33)
[2018-12-11] MEDS: DULoxetine HCL 30 MG CAPSULE.DR (FP) PO SCH ×2 (10:10→21:32)
[2018-12-11] MEDS: LIDOCAINE 5% TOPICAL PATCH TP SCH (10:10)
[2018-12-11] MEDS: ASPIRIN 325 MG ENTERIC COATED TABLET (FP) PO SCH (10:10)
[2018-12-11] MEDS: CYCLOBENZAPRINE HCL 5 MG TABLET PO SCH (10:15)
[2018-12-11] MEDS ORDERED: SODIUM CHLORIDE 500 ML IV STA ×2 (10:29→17:09)
--- NOTE | 2018-12-11 10:29 | HOSP ---
Subjective - Review of Symptoms Events since last encounter: Called to evaluate patient that was experiencing increased pain and low BP. I saw and examined patient at bedside. She was complaining of increased pain but was feeling better after receiving pain medication. However BP was low with SBP in 80's. Denied CP, ALLEN, SOB, abdominal pain, nausea, vomiting, fever, chills, or diarrhea. General: No: Chills HEENT: No: Head Aches Pulmonary: No: Dyspnea, Cough Cardiovascular: No: Chest Pain, Palpitations, Light Headedness Gastrointestinal: No: Nausea, Vomiting Musculoskeletal: Yes: Back Pain Neurological: No: Numbness Physical Examination Vital Signs: Vital Signs Temperature 98.1 F 12/11/18 06:00 Pulse Rate 92 H 12/11/18 06:00 Respiratory Rate 20 12/11/18 06:00 Blood Pressure 86/49 L 12/11/18 06:00 O2 Sat by Pulse Oximetry (%) 94 L 12/10/18 22:00 Constitutional: Yes: No Distress, Calm Eyes: Yes: Conjunctiva Clear, EOM Intact HENT: Yes: Atraumatic, Normocephalic Neck: Yes: Supple, Trachea Midline Cardiovascular: Yes: Regular Rate and Rhythm, S1, S2. No: JVD, Gallop, Murmur, Rub Respiratory: Yes: Regular, CTA Bilaterally Gastrointestinal: Yes: Normal Bowel Sounds, Soft Musculoskeletal: Yes: Back Pain Edema: No Peripheral Pulses: Left Doralis Pedis: 2+, Right Dorsalis Pedis: 2+ Neurological: Yes: Alert, Oriented Psychiatric: Yes: Alert, Oriented Labs: CBC, BMP 12/10/18 10:30 12/10/18 10:30 Hospitalist Encounter Assessment: -Will continue with current pain regimen -Will give 500cc IVF bolus of NS -Recheck BP in one hour. Visit type - Emergency Visit Emergency Visit: Yes ED Registration Date: 11/19/18 Care time: The patient presented to the Emergency Department on the above date and was hospitalized for further evaluation of their emergent condition. - New Patient This patient is new to me today: Yes Date on this admission: 12/11/18 - Critical Care Critical Care patient: No
[2018-12-11] MEDS: oxyCODONE HCL 80 MG SUSTAINED ACTING TABLET PO SCH ×2 (11:11→21:33)
[2018-12-11] MEDS: PANTOPRAZOLE 40 MG TABLET (FP) PO SCH (11:14)
--- NOTE | 2018-12-11 17:53 | PN ---
Physical Exam: SUBJECTIVE: Patient seen and examined. She complains of left hip pain. OBJECTIVE: Vital Signs Period Temp Pulse Resp BP Sys/Vargas Pulse Ox Last 24 Hr 98.0 F-98.5 F 92-111 12-20 85-132/45-79 94-97 GENERAL: The patient is awake, alert, and fully oriented. LUNGS: Breath sounds equal, clear to auscultation bilaterally, no wheezes, no crackles, no accessory muscle use. HEART: Regular rhythm, tachycardic, S1 S2 without murmur, rub or gallop. ABDOMEN: Soft, nontender, nondistended, normoactive bowel sounds, no guarding, no rebound, no hepatosplenomegaly, no masses. EXTREMITIES: 2+ pulses, warm, well-perfused, no edema. VAC on left hip. Active Medications Generic Name Dose Route Start Last Admin Trade Name Freq PRN Reason Stop Dose Admin Al Hydroxide/Mg Hydroxide 30 ml 12/11/18 07:26 Mylanta Oral Suspension - PO Q6HPO PRN DYSPEPSIA Aspirin 325 mg 12/11/18 10:00 12/11/18 10:10 Ecotrin - PO 325 mg DAILY [facility] Administration Cyclobenzaprine HCl 5 mg 12/11/18 10:00 12/11/18 10:15 Cyclobenzaprine Hcl PO Not Given DAILY [facility] Docusate Sodium 100 mg 12/11/18 14:00 12/11/18 14:52 Colace - PO 100 mg TID ELKE Administration Doxycycline Hyclate 100 mg 12/11/18 10:00 12/11/18 17:33 Vibramycin - PO 100 mg BID@1000,1800 [facility]KE Administration Duloxetine HCl 30 mg 12/11/18 10:00 12/11/18 10:10 Cymbalta - PO 30 mg BID ELKE Administration Ferrous Sulfate 325 mg 12/11/18 08:00 12/11/18 17:33 Feosol - PO 325 mg BIDWM [facility]KE Administration Fluconazole 200 mg 12/11/18 10:00 12/11/18 10:09 Diflucan - PO 200 mg DAILY [facility] Administration Sodium Chloride 500 mls @ 500 mls/hr 12/11/18 17:09 12/11/18 17:41 Normal Saline - IV 12/11/18 18:08 500 mls/hr ASDIR [facility] Administration Levofloxacin 500 mg 12/11/18 10:00 12/11/18 11:14 Levaquin - PO 500 mg DAILY@0600 [facility] Administration Lidocaine 1 patch 12/11/18 10:00 12/11/18 10:10 Lidoderm Patch - TP 1 patch DAILY [facility] Administration Lisinopril 10 mg 12/11/18 10:00 12/11/18 09:59 Prinivil PO Not Given DAILY [facility] Miscellaneous 1 each 12/11/18 22:00 Lidoderm Patch Removal MC DAILY@2200 [facility] Oxybutynin Chloride 5 mg 12/11/18 14:00 12/11/18 14:52 Ditropan - PO 5 mg TID ELKE Administration Oxycodone HCl 30 mg 12/11/18 07:26 12/11/18 12:20 Roxicodone - PO 30 mg Q6H PRN Administration PAIN LEVEL 7 - 10 Oxycodone HCl 80 mg 12/11/18 10:00 12/11/18 11:11 Oxycontin - PO Not Given BID [facility] Pantoprazole Sodium 40 mg 12/11/18 10:00 12/11/18 11:14 Protonix - PO 40 mg DAILY [facility] Administration Polyethylene Glycol 17 gm 12/11/18 10:00 12/11/18 09:59 Miralax (For Daily Use) - PO Not Given DAILY [facility] Pregabalin 100 mg 12/11/18 14:00 12/11/18 14:52 Lyrica - PO 100 mg TID [facility] Administration Senna 2 tab 12/11/18 07:26 Senna - PO HS PRN CONSTIPATION Simethicone 40 mg 12/11/18 07:26 Mylicon Liquid - PO Q6H PRN INDIGESTION ASSESSMENT/PLAN: This is a 63 year old woman with a history of HTN, depression, anxiety, chronic back pain, urinary incontinence, chronic left hip wound who presented to the hospital for treatment of the left hip wound. 1. 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, recurrent dislocation, chronic instability, and chronic wound - s/p I&D left hip wound; debridement of soft tissue, muscle, bone; VAC application on 11/19 - s/p I&D and washout left hip wound; VAC reapplication on 11/23 - s/p washout left hip wound and VAC reapplication on 11/26 - s/p I&D and debridement left hip wound on 12/03 - s/p I&D and debridement left hip wound on 12/07 - s/p osteotomy left femur; removal of hardware (explant femoral component); I&D left hip wound; partial removal of cement mantle; exchange left hip wound vac on 12/10 - Continue doxycycline, Levaquin, Diflucan - Continue PT - non weight-bearing LLE - Patient refusing short-term rehab 2. Hypomagnesemia 3. HTN - Continue lisinopril 4. Depression with anxiety - Continue Cymbalta 5. Acute blood loss anemia - Transfused 5 units PRBCs this admission - Continue ferrous sulfate 6. Urinary incontinence - Continue Ditropan 7. Chronic back and left hip pain - Continue Lidoderm patch, Lyrica, Flexeril, Cymbalta, OxyContin, oxycodone as needed Visit type - Emergency Visit Emergency Visit: No - New Patient This patient is new to me today: No - Critical Care Critical Care patient: No - Discharge Referral Referred to [facility] Med P.C.: No
[2018-12-11] MEDS: LIDOCAINE PATCH REMOVAL MC SCH (21:32)
[2018-12-12] MEDS: oxyCODONE HCL 5 MG TABLET PO PRN ×2 (03:16→21:34)
[2018-12-12] MEDS: DOCUSATE SODIUM 100 MG CAPSULE (FP) PO SCH ×3 (06:30→21:27)
[2018-12-12] MEDS: OXYBUTYNIN CHLORIDE 5 MG TABLET PO SCH ×3 (06:30→21:26)
[2018-12-12] MEDS: PREGABALIN 100 MG CAPSULE PO SCH ×3 (06:30→21:27)
[2018-12-12 07:55] LABS: BASO % 0.6 % (0-2.0); EOS % 1.4 % (0-4.5); HEMATOCRIT 26.1 % (32.4-45.2); HEMOGLOBIN 8.5 GM/dL (10.7-15.3); LYMPH % 10.2 % (8-40); MCHC 32.5 g/dl (32.0-36.0); MEAN PLT VOLUME 6.9 fl (7.5-11.1); MONO % 6.6 % (3.8-10.2); NEUT % 81.2 % (42.8-82.8); PLATELET COUNT 495 K/MM3 (134-434); RBC 3.39 M/mm3 (3.60-5.2); RDW 21.8 % (11.6-15.6); WHITE BLOOD COUNT 11.9 K/mm3 (4.0-10.0)
[2018-12-12] MEDS: FERROUS SO4 325 MG TABLET (FP) PO SCH ×2 (08:00→18:07)
[2018-12-12 08:13] LABS: ANION GAP 7 MMOL/L (8-16); BLOOD UREA NITROGEN 24 mg/dL (7-18); CALCIUM 7.7 mg/dL (8.5-10.1); CHLORIDE 109 mmol/L (98-107); CO2 23 mmol/L (21-32); CREATININE 0.9 mg/dL (0.55-1.3); GLUCOSE,RANDOM 92 mg/dL (74-106); POTASSIUM 4.1 mmol/L (3.5-5.1); SODIUM 139 mmol/L (136-145)
[2018-12-12] MEDS ORDERED: PT OWN MED DRAWER 7, Y5N ONE ×3 (09:22→21:54)
[2018-12-12] MEDS: ASPIRIN 325 MG ENTERIC COATED TABLET (FP) PO SCH (09:25)
[2018-12-12] MEDS: oxyCODONE HCL 80 MG SUSTAINED ACTING TABLET PO SCH ×2 (09:25→21:27)
[2018-12-12] MEDS: FLUCONAZOLE 100 MG TABLET (UD) PO SCH (09:26)
[2018-12-12] MEDS: LISINOPRIL 10 MG TABLET (FP) PO SCH (09:27)
[2018-12-12] MEDS: DULoxetine HCL 30 MG CAPSULE.DR (FP) PO SCH ×2 (09:27→21:28)
[2018-12-12] MEDS: PANTOPRAZOLE 40 MG TABLET (FP) PO SCH (09:27)
[2018-12-12] MEDS: DOXYCYCLINE HYCLATE 100 MG CAPSULE PO SCH ×2 (09:27→18:07)
[2018-12-12] MEDS: LIDOCAINE 5% TOPICAL PATCH TP SCH (09:28)
[2018-12-12] MEDS: POLYETHYLENE GLYCOL 3350 119 GM BTL PO SCH (09:28)
[2018-12-12] MEDS: CYCLOBENZAPRINE HCL 5 MG TABLET PO SCH (09:31)
[2018-12-12 10:54] LABS: ANISOCYTOSIS 1+; MACROCYTOSIS 0; PLATELET ESTIMATE INCREASED
--- NOTE | 2018-12-12 13:42 | PATH ---
Surgical Pathology Report Patient Name: CONNOR SON Med. Rec. #: [id number] /Age/Gender: 1955 (Age: 63) / F Account: [id number] Location: [facility] MED/SURG Taken: 12/10/2018 Received: 12/11/2018 Reported: 12/12/2018 Physicians: Abena Oconnor F.N.P. Specimen(s) Received A: HARDWARE LEFT LEG B: LEFT HIP Clinical History Infected left hip Final Diagnosis A. ORTHOPEDIC HARDWARE, LEFT FEMUR, REMOVAL: METALLIC ORTHOPEDIC HARDWARE (GROSS ONLY). B. SOFT TISSUE, LEFT HIP, EXCISION: BENIGN FIBROUS TISSUE, AND INFLAMED GRANULATION TISSUE WITH FOCAL NECROSIS. Comment: Also see [id number]. Electronically Signed Magdi Jones M.D. Gross Description A. Received fresh labeled "hardware left femur," is a 19 cm in length rowe metallic portion of hardware. No soft tissue is present. No sections are submitted, gross only. B. Received in formalin labeled "tissue left hip," is a 4.8 x 3.5 x 1.0 cm aggregate of quarles rowe portions of soft tissue. Centrifugal Separator sections are submitted in one cassette. /12/11/2018 saudi12/11/2018
--- NOTE | 2018-12-12 16:40 | PN ---
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, recurrent dislocation , chronic instability, and chronic wound - s/p I&D left hip wound; debridement of soft tissue, muscle, bone; VAC application on 11/19 - s/p I&D and washout left hip wound; VAC reapplication on 11/23 - s/p washout left hip wound and VAC reapplication on 11/26 - s/p I&D and debridement left hip wound on 12/03 - s/p I&D and debridement left hip wound on 12/07 - s/p osteotomy left femur; removal of hardware (explant femoral component); I&D left hip wound; partial removal of cement mantle; exchange left hip wound vac on 12/10 History of Present Illness: 24HR EVENTS: -h/h continues to downtrend -pt more somnolent on current pain regimen. -pt was accepted by [facility] for wound management. Patient was hesistant to transfer but agreed after it was demonstrated to be medically necessary. However, pt later relents and states she feels forced to go to rehab. After discussing case with surgical service, there appears no definitive date for wound closure, but "may be" taken to OR on monday for another washout. Case will be reviewed by business case analyst/SW and hospital personnel to determine appropriate plan of care. - Current Medication List Current Medications: Active Medications Al Hydroxide/Mg Hydroxide (Mylanta Oral Suspension -) 30 ml PO Q6HPO PRN PRN Reason: DYSPEPSIA Aspirin (Ecotrin -) 325 mg PO DAILY [facility] Last Admin: 12/12/18 09:25 Dose: 325 mg Cyclobenzaprine HCl (Cyclobenzaprine Hcl) 5 mg PO DAILY [facility] Last Admin: 12/12/18 09:31 Dose: 5 mg Docusate Sodium (Colace -) 100 mg PO TID [facility] Last Admin: 12/12/18 13:48 Dose: 100 mg Doxycycline Hyclate (Vibramycin -) 100 mg PO BID@1000,1800 [facility] Last Admin: 12/12/18 09:27 Dose: 100 mg Duloxetine HCl (Cymbalta -) 30 mg PO BID [facility] Last Admin: 12/12/18 09:27 Dose: 30 mg Ferrous Sulfate (Feosol -) 325 mg PO BIDWM [facility] Last Admin: 12/12/18 08:00 Dose: 325 mg Fluconazole (Diflucan -) 200 mg PO DAILY [facility] Last Admin: 12/12/18 09:26 Dose: 200 mg Levofloxacin (Levaquin -) 500 mg PO DAILY@0600 [facility] Last Admin: 12/12/18 06:30 Dose: 500 mg Lidocaine (Lidoderm Patch -) 1 patch TP DAILY [facility] Last Admin: 12/12/18 09:28 Dose: 1 patch Lisinopril (Prinivil) 10 mg PO DAILY [facility] Last Admin: 12/12/18 09:27 Dose: 10 mg Miscellaneous (Lidoderm Patch Removal) 1 each MC DAILY@2200 [facility] Last Admin: 12/11/18 21:32 Dose: Not Given Oxybutynin Chloride (Ditropan -) 5 mg PO TID [facility] Last Admin: 12/12/18 13:48 Dose: 5 mg Oxycodone HCl (Oxycontin -) 80 mg PO BID [facility] Last Admin: 12/12/18 09:25 Dose: 80 mg Oxycodone HCl (Roxicodone -) 30 mg PO Q4H PRN PRN Reason: PAIN LEVEL 7 - 10 Last Admin: 12/12/18 03:16 Dose: 30 mg Oxycodone HCl (Roxicodone -) 15 mg PO Q4H PRN PRN Reason: PAIN LEVEL 4 - 6 Pantoprazole Sodium (Protonix -) 40 mg PO DAILY [facility] Last Admin: 12/12/18 09:27 Dose: 40 mg Polyethylene Glycol (Miralax (For Daily Use) -) 17 gm PO DAILY [facility] Last Admin: 12/12/18 09:28 Dose: 17 gm Pregabalin (Lyrica -) 100 mg PO TID [facility] Last Admin: 12/12/18 13:48 Dose: 100 mg Senna (Senna -) 2 tab PO HS PRN PRN Reason: CONSTIPATION Simethicone (Mylicon Liquid -) 40 mg PO Q6H PRN PRN Reason: INDIGESTION - Objective Vital Signs: Vital Signs Temperature 98.4 F 12/12/18 10:00 Pulse Rate 96 H 12/12/18 10:00 Respiratory Rate 20 12/12/18 10:00 Blood Pressure 105/57 L 12/12/18 10:00 O2 Sat by Pulse Oximetry (%) 97 12/12/18 09:00 Constitutional: Yes: No Distress, Calm Eyes: Yes: Conjunctiva Clear, PERRL HENT: Yes: Atraumatic, Normocephalic, Other (poor dentition) Neck: Yes: Supple, Trachea Midline Cardiovascular: Yes: Regular Rate and Rhythm Respiratory: Yes: Regular, CTA Bilaterally Gastrointestinal: Yes: Soft, Abdomen, Obese, Hypoactive Bowel Sounds ...Rectal Exam: Yes: Deferred Musculoskeletal: Yes: Joint Stiffness, Muscle Weakness Extremities: Yes: Cool Edema: No Peripheral Pulses WNL: Yes Peripheral Pulses: Left Radial: 2+, Right Radial: 2+, Left Doralis Pedis: 1+, Right Dorsalis Pedis: 1+ Wound/Incision: Yes: Dressing Dry and Intact (Left hip clear dressing with wound vac in situ) Neurological: Yes: Oriented, Unsteady Gait (WC bound), Weakness, Other ( somnolent) ...Motor Strength: LLE (3/5), RLE (4/5) Psychiatric: Yes: Oriented Labs: CBC, BMP 12/12/18 06:00 12/12/18 07:00 INR, PTT INR 1.08 (0.83-1.09) 12/10/18 10:30 Problem List - Problems (1) Prophylactic measure Assessment/Plan: vibramycin 100mg BID as suppressive therapy bowel regimen with senna and colace Miralax PRN constipation Maalox PRN GI upset Diflucan 200mg daily Protonix once daily Code(s): Z29.9 - ENCOUNTER FOR PROPHYLACTIC MEASURES, UNSPECIFIED (2) Depression Assessment/Plan: cymbalta 30mg BID Code(s): F32.9 - MAJOR DEPRESSIVE DISORDER, SINGLE EPISODE, UNSPECIFIED (3) HTN (hypertension) Assessment/Plan: cardiac diet Lisinopril 10mg daily Code(s): I10 - ESSENTIAL (PRIMARY) HYPERTENSION (4) Chronic pain Assessment/Plan: Continue Lidoderm patch, Lyrica, Flexeril, Cymbalta, OxyContin, oxycodone as needed Code(s): G89.29 - OTHER CHRONIC PAIN (5) Wound, open, hip or thigh Assessment/Plan: Wound culture with Enterococcus continue Levaquin 500mg daily Code(s): TZR5195 - (6) Anemia Assessment/Plan: - Transfused 5 units PRBCs this admission - Continue ferrous sulfate - Trend H/H Code(s): D64.9 - ANEMIA, UNSPECIFIED Impression/Plan Impression/Plan: Urinary incontinence - Continue Ditropan DISPO: Full code Visit type - Emergency Visit Emergency Visit: Yes ED Registration Date: 11/19/18 Care time: The patient presented to the Emergency Department on the above date and was hospitalized for further evaluation of their emergent condition. - New Patient This patient is new to me today: No - Critical Care Critical Care patient: No - Discharge Referral Referred to [facility] Med P.C.: No
--- NOTE | 2018-12-12 20:15 | PN ---
Progress Note (short form) - Note Progress Note: C/O mild incisionaL pain Vac working well PLAN for hopefull delayed primary closure ?Monday
[2018-12-12] MEDS: LIDOCAINE PATCH REMOVAL MC SCH (21:29)
[2018-12-13] MEDS: oxyCODONE HCL 5 MG TABLET PO PRN ×4 (01:49→22:12)
[2018-12-13] MEDS: OXYBUTYNIN CHLORIDE 5 MG TABLET PO SCH ×3 (05:59→22:07)
[2018-12-13] MEDS: PREGABALIN 100 MG CAPSULE PO SCH ×3 (05:59→22:08)
[2018-12-13] MEDS: DOCUSATE SODIUM 100 MG CAPSULE (FP) PO SCH ×3 (06:00→22:07)
--- NOTE | 2018-12-13 07:31 | PN ---
Progress Note (short form) - Note Progress Note: asymptomatic. denies CP, SOB, fever, chills, cough, dysuria, N/V/C/D Current Medications Generic Name Dose Route Start Last Admin Trade Name Freq PRN Reason Stop Dose Admin Al Hydroxide/Mg Hydroxide 30 ml 12/11/18 07:26 Mylanta Oral Suspension - PO Q6HPO PRN DYSPEPSIA Aspirin 325 mg 12/11/18 10:00 12/12/18 09:25 Ecotrin - PO 325 mg DAILY [facility] Administration Cyclobenzaprine HCl 5 mg 12/11/18 10:00 12/12/18 09:31 Cyclobenzaprine Hcl PO 5 mg DAILY [facility] Administration Docusate Sodium 100 mg 12/11/18 14:00 12/13/18 06:00 Colace - PO 100 mg TID [facility] Administration Doxycycline Hyclate 100 mg 12/11/18 10:00 12/12/18 18:07 Vibramycin - PO 100 mg BID@1000,1800 [facility] Administration Duloxetine HCl 30 mg 12/11/18 10:00 12/12/18 21:28 Cymbalta - PO 30 mg BID [facility] Administration Ferrous Sulfate 325 mg 12/11/18 08:00 12/12/18 18:07 Feosol - PO 325 mg BIDWM [facility]KE Administration Fluconazole 200 mg 12/11/18 10:00 12/12/18 09:26 Diflucan - PO 200 mg DAILY [facility] Administration Levofloxacin 500 mg 12/11/18 10:00 12/13/18 05:59 Levaquin - PO 500 mg DAILY@0600 [facility] Administration Lidocaine 1 patch 12/11/18 10:00 12/12/18 09:28 Lidoderm Patch - TP 1 patch DAILY [facility] Administration Lisinopril 10 mg 12/11/18 10:00 12/12/18 09:27 Prinivil PO 10 mg DAILY [facility] Administration Miscellaneous 1 each 12/11/18 22:00 12/12/18 21:29 Lidoderm Patch Removal MC Not Given DAILY@2200 [facility] Oxybutynin Chloride 5 mg 12/11/18 14:00 12/13/18 05:59 Ditropan - PO 5 mg TID [facility] Administration Oxycodone HCl 80 mg 12/11/18 10:00 12/12/18 21:27 Oxycontin - PO 80 mg BID [facility] Administration Oxycodone HCl 30 mg 12/11/18 17:58 12/13/18 01:49 Roxicodone - PO 30 mg Q4H PRN Administration PAIN LEVEL 7 - 10 Oxycodone HCl 15 mg 12/11/18 18:08 Roxicodone - PO Q4H PRN PAIN LEVEL 4 - 6 Pantoprazole Sodium 40 mg 12/11/18 10:00 12/12/18 09:27 Protonix - PO 40 mg DAILY [facility] Administration Polyethylene Glycol 17 gm 12/11/18 10:00 12/12/18 09:28 Miralax (For Daily Use) - PO 17 gm DAILY [facility] Administration Pregabalin 100 mg 12/11/18 14:00 12/13/18 05:59 Lyrica - PO 100 mg TID [facility] Administration Senna 2 tab 12/11/18 07:26 Senna - PO HS PRN CONSTIPATION Simethicone 40 mg 12/11/18 07:26 Mylicon Liquid - PO Q6H PRN INDIGESTION Last Vital Signs Temp Pulse Resp BP Pulse Ox 98.8 F 112 H 18 98/59 L 98 12/13/18 06:00 12/13/18 06:00 12/13/18 06:00 12/13/18 06:00 12/12/18 21:00 General NAD CV S1 S2 RRR no murmur/rub/gallop Lungs CTA B/L no wheezing/rales/rhonchi Abdomen soft NT/ND Extremities no pedal edema CBCD WBC 11.9 K/mm3 (4.0-10.0) H 12/12/18 06:00 RBC 3.39 M/mm3 (3.60-5.2) L 12/12/18 06:00 Hgb 8.5 GM/dL (10.7-15.3) L 12/12/18 06:00 Hct 26.1 % (32.4-45.2) L D 12/12/18 06:00 MCV 77.0 fl (80-96) L 12/12/18 06:00 MCHC 32.5 g/dl (32.0-36.0) 12/12/18 06:00 RDW 21.8 % (11.6-15.6) H 12/12/18 06:00 Plt Count 495 K/MM3 (134-434) H D 12/12/18 06:00 MPV 6.9 fl (7.5-11.1) L 12/12/18 06:00 CMP Sodium 139 mmol/L (136-145) 12/12/18 07:00 Potassium 4.1 mmol/L (3.5-5.1) 12/12/18 07:00 Chloride 109 mmol/L (98-107) H 12/12/18 07:00 Carbon Dioxide 23 mmol/L (21-32) 12/12/18 07:00 Anion Gap 7 MMOL/L (8-16) L 12/12/18 07:00 BUN 24 mg/dL (7-18) H 12/12/18 07:00 Creatinine 0.9 mg/dL (0.55-1.3) 12/12/18 07:00 Creat Clearance w eGFR 63.24 (>60) 12/12/18 07:00 Calcium 7.7 mg/dL (8.5-10.1) L 12/12/18 07:00 Total Bilirubin 0.1 mg/dL (0.2-1) L 12/10/18 10:30 AST 12 U/L (15-37) L 12/10/18 10:30 ALT 13 U/L (13-61) 12/10/18 10:30 Alkaline Phosphatase 112 U/L (45-117) 12/10/18 10:30 Total Protein 6.8 g/dl (6.4-8.2) 12/10/18 10:30 Albumin 2.1 g/dl (3.4-5.0) L 12/10/18 10:30 Microbiology 12/10/18 20:57 Gram Stain - Final Hip - Left Wound Culture - Final Enterococcus Faecalis Escherichia Coli 12/10/18 21:15 Gram Stain - Final Tissue-Other Tissue Culture - Preliminary Non Lactose Fermenting Gnb Group D Strep Or Entero Coccus Diphtheroid/Corynebacterium Anaerobic Culture - Final NO ANAEROBES WERE ISOLATED A/P 63yo F with PMH depression, HTN, chronic pain, urinary retention presented to the hospital for L hip wound and was taken to the OR for L hip washout and wound vac was applied 1. Chronic left hip wound-with ESBL E coli and E Faecalis growing from the wound. - s/p I&D left hip wound; debridement of soft tissue, muscle, bone; VAC application on 11/19 - s/p I&D and washout left hip wound; VAC reapplication on 11/23 - s/p washout left hip wound and VAC reapplication on 11/26 - s/p I&D and debridement left hip wound on 12/03 - s/p I&D and debridement left hip wound on 12/07 - s/p osteotomy left femur; removal of hardware (explant femoral component); I&D left hip wound; partial removal of cement mantle; exchange left hip wound vac on 12/10 plan for another washout 12/14 vs 12/17. on doxy/fluconazole/levaquin. further recommendations per orthopedic team and ID. pain control. will need VNS for wound vac management 2. Hypomagnesemia- resolved 3. Acute blood loss anemia- s/p 3 unit PRBC this hospital stay. Hgb trending down, will repeat this afternoon. no indication for transfusion at this time 4. HTN- has been hypotensive. will d/c lisinopril 5. Depression with anxiety- Continue Cymbalta, Valium as needed 6. Urinary incontinence- Continue Ditropan 7. Chronic back and left hip pain- Continue Lyrica, Flexeril, Cynbal[place], OxyContin, oxycodone as needed 8. DVT ppx- SCD 9. plan for d/c home with wound vac and VNS when medically optimized Visit type - Emergency Visit Emergency Visit: Yes ED Registration Date: 11/19/18 Care time: The patient presented to the Emergency Department on the above date and was hospitalized for further evaluation of their emergent condition. - New Patient This patient is new to me today: No - Critical Care Critical Care patient: No - Discharge Referral Referred to [facility] Med P.C.: No
[2018-12-13] MEDS: PANTOPRAZOLE 40 MG TABLET (FP) PO SCH (09:05)
[2018-12-13] MEDS: DOXYCYCLINE HYCLATE 100 MG CAPSULE PO SCH ×2 (09:05→17:43)
[2018-12-13] MEDS: ASPIRIN 325 MG ENTERIC COATED TABLET (FP) PO SCH (09:05)
[2018-12-13] MEDS: FERROUS SO4 325 MG TABLET (FP) PO SCH ×2 (09:05→17:43)
[2018-12-13] MEDS: FLUCONAZOLE 100 MG TABLET (UD) PO SCH (09:05)
[2018-12-13] MEDS: DULoxetine HCL 30 MG CAPSULE.DR (FP) PO SCH ×2 (09:06→22:08)
[2018-12-13] MEDS: POLYETHYLENE GLYCOL 3350 119 GM BTL PO SCH (09:06)
[2018-12-13] MEDS: LIDOCAINE 5% TOPICAL PATCH TP SCH (09:06)
[2018-12-13] MEDS: oxyCODONE HCL 80 MG SUSTAINED ACTING TABLET PO SCH ×2 (09:08→22:06)
[2018-12-13] MEDS ORDERED: PT OWN MED DRAWER 7, Y5N ONE ×2 (09:14→13:40)
[2018-12-13] MEDS: CYCLOBENZAPRINE HCL 5 MG TABLET PO SCH (09:15)
[2018-12-13 15:30] LABS: HEMATOCRIT 29.2 % (32.4-45.2); MCH 23.8 pg (25.7-33.7); MCHC 30.8 g/dl (32.0-36.0); MEAN CELL VOLUME 77.2 fl (80-96); MEAN PLT VOLUME 6.9 fl (7.5-11.1); PLATELET COUNT 549 K/MM3 (134-434); RBC 3.78 M/mm3 (3.60-5.2); RDW 21.8 % (11.6-15.6); WHITE BLOOD COUNT 11.8 K/mm3 (4.0-10.0)
[2018-12-13] MEDS: LIDOCAINE PATCH REMOVAL MC SCH (22:08)
[2018-12-14] MEDS: OXYBUTYNIN CHLORIDE 5 MG TABLET PO SCH ×3 (05:41→22:18)
[2018-12-14] MEDS: DOCUSATE SODIUM 100 MG CAPSULE (FP) PO SCH ×3 (05:41→22:18)
[2018-12-14] MEDS: PREGABALIN 100 MG CAPSULE PO SCH ×3 (05:41→22:19)
[2018-12-14] MEDS: oxyCODONE HCL 5 MG TABLET PO PRN ×3 (06:28→14:14)
--- NOTE | 2018-12-14 09:04 | PN ---
Progress Note, Physician Chief Complaint: No new complaints denies any fever , chills, History of Present Illness: 63yo F with PMH depression, HTN, chronic pain, urinary retention presented to the hospital for L hip wound and was taken to the OR for L hip washout and wound vac was applied. - Current Medication List Current Medications: Active Medications Al Hydroxide/Mg Hydroxide (Mylanta Oral Suspension -) 30 ml PO Q6HPO PRN PRN Reason: DYSPEPSIA Aspirin (Ecotrin -) 325 mg PO DAILY [facility] Last Admin: 12/13/18 09:05 Dose: 325 mg Cyclobenzaprine HCl (Cyclobenzaprine Hcl) 5 mg PO DAILY [facility] Last Admin: 12/13/18 09:15 Dose: 5 mg Docusate Sodium (Colace -) 100 mg PO TID [facility] Last Admin: 12/14/18 05:41 Dose: 100 mg Doxycycline Hyclate (Vibramycin -) 100 mg PO BID@1000,1800 [facility] Last Admin: 12/13/18 17:43 Dose: 100 mg Duloxetine HCl (Cymbalta -) 30 mg PO BID [facility] Last Admin: 12/13/18 22:08 Dose: 30 mg Ferrous Sulfate (Feosol -) 325 mg PO BIDWM [facility] Last Admin: 12/13/18 17:43 Dose: 325 mg Fluconazole (Diflucan -) 200 mg PO DAILY [facility] Last Admin: 12/13/18 09:05 Dose: 200 mg Levofloxacin (Levaquin -) 500 mg PO DAILY@0600 [facility] Last Admin: 12/14/18 05:41 Dose: 500 mg Lidocaine (Lidoderm Patch -) 1 patch TP DAILY [facility] Last Admin: 12/13/18 09:06 Dose: 1 patch Miscellaneous (Lidoderm Patch Removal) 1 each MC DAILY@2200 [facility] Last Admin: 12/13/18 22:08 Dose: Not Given Oxybutynin Chloride (Ditropan -) 5 mg PO TID [facility] Last Admin: 12/14/18 05:41 Dose: 5 mg Oxycodone HCl (Oxycontin -) 80 mg PO BID [facility] Last Admin: 12/13/18 22:06 Dose: 80 mg Oxycodone HCl (Roxicodone -) 30 mg PO Q4H PRN PRN Reason: PAIN LEVEL 7 - 10 Last Admin: 12/14/18 06:28 Dose: 30 mg Oxycodone HCl (Roxicodone -) 15 mg PO Q4H PRN PRN Reason: PAIN LEVEL 4 - 6 Pantoprazole Sodium (Protonix -) 40 mg PO DAILY [facility] Last Admin: 12/13/18 09:05 Dose: 40 mg Polyethylene Glycol (Miralax (For Daily Use) -) 17 gm PO DAILY [facility] Last Admin: 12/13/18 09:06 Dose: 17 gm Pregabalin (Lyrica -) 100 mg PO TID [facility] Last Admin: 12/14/18 05:41 Dose: 100 mg Senna (Senna -) 2 tab PO HS PRN PRN Reason: CONSTIPATION Simethicone (Mylicon Liquid -) 40 mg PO Q6H PRN PRN Reason: INDIGESTION - Objective Vital Signs: Vital Signs Temperature 98.4 F 12/14/18 06:00 Pulse Rate 73 12/14/18 06:00 Respiratory Rate 18 12/14/18 06:00 Blood Pressure 149/80 12/14/18 06:00 O2 Sat by Pulse Oximetry (%) 98 12/13/18 21:00 Elderly F comfortable, not in distress HEENT: Mild anemia, mm moist Neck: Supple, Trachea Midline Cardiovascular:Regular Rate and Rhythm, S1, S2 Respiratory: Regular, CTA Bilaterally Gastrointestinal: Normal Bowel Sounds, Soft Musculoskeletal: Left Hip wound Vac)Edema: RUE: Trace, LLE: Trace, Peripheral Pulses: Right Radial: 1+, Left Doralis Pedis: 1+ Integumentary: Other (Left sided wound vac) Neurological: Yes: WNL, Alert, Oriented Motor Strength: WNL, LUE, LLE, RUE Labs: CBC, BMP 12/13/18 14:30 12/12/18 07:00 INR, PTT INR 1.08 (0.83-1.09) 12/10/18 10:30 Problem List - Problems (1) Wound, open, hip or thigh Assessment/Plan: Chronic left hip wound-with ESBL E coli and E Faecalis growing from the wound. s/p I&D left hip wound; debridement of soft tissue, muscle, bone, VAC application on 11/19, subsequently multiple I and D wound wash , underwent s/p osteotomy left femur, removal of hardware (explant femoral component), I&D left hip wound; partial removal of cement mantle; exchange left hip wound vac on 12/10 , today schedule for washout at 8.00 PM .NPO after 10.00 am . on doxy/ fluconazole/levaquin. further recommendations per orthopedic team and ID. pain control. will need VNS for wound vac management Code(s): [id number] - (2) HTN (hypertension) Assessment/Plan: Well controlled control BP meds on Hold Code(s): I10 - ESSENTIAL (PRIMARY) HYPERTENSION (3) Depression Assessment/Plan: At present Euthymic Continue Cymbalta, Valium as needed. Code(s): F32.9 - MAJOR DEPRESSIVE DISORDER, SINGLE EPISODE, UNSPECIFIED (4) Chronic pain Assessment/Plan: cont Pian meds Code(s): G89.29 - OTHER CHRONIC PAIN (5) Anemia Assessment/Plan: Aute blood loss anemia- s/p 3 unit PRBC F/U H/H Code(s): D64.9 - ANEMIA, UNSPECIFIED (6) Urinary incontinence Assessment/Plan: Cont Ditropan Code(s): R32 - UNSPECIFIED URINARY INCONTINENCE (7) Thrombocytosis Assessment/Plan: Reactive due to chronic infection. Code(s): D47.3 - ESSENTIAL (HEMORRHAGIC) THROMBOCYTHEMIA (8) Sepsis Assessment/Plan: Spiked fever tachycardia, culture is growing ESBL E Colli and Enterococus, will start IV Meropenem, blood culture ID consult and Sr Lactic acid, IV hydration.DC PO meds Code(s): A41.9 - SEPSIS, UNSPECIFIED ORGANISM
[2018-12-14] MEDS ORDERED: PT OWN MED DRAWER 7, Y5N ONE ×3 (09:06→18:38)
[2018-12-14] MEDS: ASPIRIN 325 MG ENTERIC COATED TABLET (FP) PO SCH (09:10)
[2018-12-14] MEDS: FERROUS SO4 325 MG TABLET (FP) PO SCH ×2 (09:11→18:57)
[2018-12-14] MEDS: DOXYCYCLINE HYCLATE 100 MG CAPSULE PO SCH (09:11)
[2018-12-14] MEDS: PANTOPRAZOLE 40 MG TABLET (FP) PO SCH (09:11)
[2018-12-14] MEDS: CYCLOBENZAPRINE HCL 5 MG TABLET PO SCH (09:13)
[2018-12-14] MEDS: LIDOCAINE 5% TOPICAL PATCH TP SCH (09:13)
[2018-12-14] MEDS: POLYETHYLENE GLYCOL 3350 119 GM BTL PO SCH (09:15)
[2018-12-14] MEDS: DULoxetine HCL 30 MG CAPSULE.DR (FP) PO SCH ×2 (09:17→22:19)
[2018-12-14] MEDS: FLUCONAZOLE 100 MG TABLET (UD) PO SCH (09:17)
[2018-12-14] MEDS: oxyCODONE HCL 80 MG SUSTAINED ACTING TABLET PO SCH ×2 (09:17→22:18)
[2018-12-14] MEDS ORDERED: ACETAMINOPHEN 325 MG TABLET (FP) PO ONE ×2 (11:45→17:19)
[2018-12-14] MEDS ORDERED: MEROPENEM 1 GM in DEXTROSE 5%-WATER 100 ML IVPB ONE (12:00)
[2018-12-14 15:23] LABS: BASO % 0.3 % (0-2.0); EOS % 0.8 % (0-4.5); HEMATOCRIT 28.6 % (32.4-45.2); HEMOGLOBIN 9.2 GM/dL (10.7-15.3); LYMPH % 10.3 % (8-40); MCH 24.4 pg (25.7-33.7); MCHC 32.1 g/dl (32.0-36.0); MEAN CELL VOLUME 76.1 fl (80-96); MEAN PLT VOLUME 7.2 fl (7.5-11.1); MONO % 6.1 % (3.8-10.2); NEUT % 82.5 % (42.8-82.8); PLATELET COUNT 544 K/MM3 (134-434); RBC 3.76 M/mm3 (3.60-5.2); RDW 22.2 % (11.6-15.6); WHITE BLOOD COUNT 17.6 K/mm3 (4.0-10.0)
[2018-12-14 15:49] LABS: ANION GAP 9 MMOL/L (8-16); BLOOD UREA NITROGEN 19 mg/dL (7-18); CALCIUM 8.7 mg/dL (8.5-10.1); CHLORIDE 103 mmol/L (98-107); CO2 22 mmol/L (21-32); CREATININE 0.8 mg/dL (0.55-1.3); GLUCOSE,RANDOM 114 mg/dL (74-106); POTASSIUM 4.1 mmol/L (3.5-5.1); SODIUM 134 mmol/L (136-145)
[2018-12-14] MEDS: SODIUM CHLORIDE 1,000 ML IV SCH (16:44)
--- NOTE | 2018-12-14 17:18 | PN ---
Progress Note (short form) - Note Progress Note: asked to f/u today for new fever apparently left hip hardware removed at [facility] operative debridement 12/10 she has a vac in place febrile today feels fine no nausea or vomiting no diarrhea Vital Signs Period Temp Pulse Resp BP Sys/Vargas Pulse Ox Last 24 Hr 98 F-100.1 F 73-129 18-20 101-149/56-80 98 cor-rrr lungs clear abd soft,nt ext vac in place CBC, BMP 12/14/18 14:45 12/14/18 14:45 Microbiology 12/10/18 21:15 Tissue-Other Gram Stain - Final 12/10/18 21:15 Tissue-Other Tissue Culture - Final Escherichia Coli Esbl Change Agent Vr Ec Faecalis Diphtheroid/Corynebacterium 12/10/18 21:15 Tissue-Other Anaerobic Culture - Final NO ANAEROBES WERE ISOLATED 12/10/18 20:57 Hip - Left Gram Stain - Final 12/10/18 20:57 Hip - Left Wound Culture - Preliminary Enterococcus Faecalis Escherichia Coli Pending Organism 12/07/18 21:00 Hip - Left Gram Stain - Final 12/07/18 21:00 Hip - Left Wound Culture - Final Escherichia Coli Esbl Change Agent Enterococcus Faecalis 12/01/18 10:45 Blood - Peripheral Venous Blood Culture - Final NO GROWTH AFTER 5 DAYS INCUBATION 12/01/18 10:50 Blood - Peripheral Venous Blood Culture - Final NO GROWTH AFTER 5 DAYS INCUBATION 12/03/18 12:35 Hip - Left Gram Stain - Final 12/03/18 12:35 Hip - Left Wound Culture - Final Staphylococcus Coagulase Neg Non Lactose Fermenting Gnb Group D Strep Or Entero Coccus 12/03/18 12:35 Hip - Left Gram Stain - Final 12/03/18 12:35 Hip - Left Wound Culture - Final Staphylococcus Coagulase Neg Escherichia Coli Enterococcus Faecalis 11/29/18 07:00 Blood - Peripheral Venous Blood Culture - Final NO GROWTH AFTER 5 DAYS INCUBATION 11/29/18 06:30 Blood - Peripheral Venous Blood Culture - Final NO GROWTH AFTER 5 DAYS INCUBATION 11/30/18 18:00 Urine - Urine - Catheterized Urine Culture - Final NO GROWTH OBTAINED 11/26/18 23:00 Hip - Left Gram Stain - Final 11/26/18 23:00 Hip - Left Wound Culture - Final Escherichia Coli Enterococcus Faecalis 11/26/18 23:00 Hip - Left Gram Stain - Final 11/26/18 23:00 Hip - Left Wound Culture - Final Escherichia Coli Enterococcus Faecalis 11/23/18 13:58 Abscess Gram Stain - Final 11/23/18 13:58 Abscess Wound Culture - Final Non Lactose Fermenting Gnb Group D Strep Or Entero Coccus Diphtheroid/Corynebacterium 11/23/18 13:55 Abscess Gram Stain - Final 11/23/18 13:55 Abscess Wound Culture - Final Escherichia Coli Enterococcus Faecalis Diphtheroid/Corynebacterium 11/19/18 15:00 Hip - Left Gram Stain - Final 11/19/18 15:00 Hip - Left Wound Culture - Final Staphylococcus Coagulase Neg Diphtheroid/Corynebacterium Group D Strep Or Entero Coccus Escherichia Coli 11/19/18 15:00 Hip - Left Gram Stain - Final 11/19/18 15:00 Hip - Left Wound Culture - Final Staphylococcus Coagulase Neg Diphtheroid/Corynebacterium Gamma Hemolytic Streptococcus Escherichia Coli a/p new fevers blood cultures sent would target treatment to operative pathogens including ecoli esbl, VREF now that hardware is out- this is finally a chance for cure if there is no remaining hardware plan daptomycin and ertapenem can d/c po antibiotics f/u cultures in am continue contact isolation
[2018-12-14] MEDS ORDERED: DAPTOMYCIN 400 MG in SODIUM CHLORIDE 50 ML IVPB SCH (17:30)
[2018-12-14] MEDS ORDERED: MEROPENEM 1 GM in DEXTROSE 5%-WATER 100 ML IVPB SCH (18:00)
[2018-12-14] MEDS ORDERED: MEROPENEM 1 GM in DEXTROSE 5%-WATER - 100 ML IVPB SCH (18:00)
[2018-12-14] MEDS: LIDOCAINE PATCH REMOVAL MC SCH (22:21)
[2018-12-14] MEDS: ERTAPENEM SODIUM 1 GM in SODIUM CHLORIDE 50 ML IVPB SCH (22:21)
[2018-12-15 07:34] LABS: BASO % 0.5 % (0-2.0); EOS % 1.4 % (0-4.5); HEMATOCRIT 25.7 % (32.4-45.2); HEMOGLOBIN 8.1 GM/dL (10.7-15.3); LYMPH % 11.1 % (8-40); MCH 23.9 pg (25.7-33.7); MCHC 31.7 g/dl (32.0-36.0); MEAN CELL VOLUME 75.4 fl (80-96); MEAN PLT VOLUME 7.1 fl (7.5-11.1); MONO % 8.5 % (3.8-10.2); NEUT % 78.5 % (42.8-82.8); PLATELET COUNT 359 K/MM3 (134-434); RBC 3.41 M/mm3 (3.60-5.2); RDW 21.9 % (11.6-15.6); WHITE BLOOD COUNT 10.5 K/mm3 (4.0-10.0)
[2018-12-15 08:16] LABS: ANION GAP 8 MMOL/L (8-16); BLOOD UREA NITROGEN 14 mg/dL (7-18); CALCIUM 7.9 mg/dL (8.5-10.1); CHLORIDE 107 mmol/L (98-107); CO2 23 mmol/L (21-32); CREATININE 0.7 mg/dL (0.55-1.3); GLUCOSE,RANDOM 100 mg/dL (74-106); POTASSIUM 3.8 mmol/L (3.5-5.1); SODIUM 138 mmol/L (136-145)
[2018-12-15] MEDS: OXYBUTYNIN CHLORIDE 5 MG TABLET PO SCH ×3 (08:33→21:42)
[2018-12-15] MEDS: DOCUSATE SODIUM 100 MG CAPSULE (FP) PO SCH ×3 (08:33→21:41)
[2018-12-15] MEDS: oxyCODONE HCL 5 MG TABLET PO PRN ×3 (08:34→16:32)
[2018-12-15] MEDS: PREGABALIN 100 MG CAPSULE PO SCH ×3 (08:34→21:42)
[2018-12-15] MEDS: FERROUS SO4 325 MG TABLET (FP) PO SCH ×2 (08:34→18:20)
--- NOTE | 2018-12-15 10:00 | PN ---
Progress Note (short form) - Note Progress Note: Wound vac exudate has changed No longer serosangeunous more cloudy purulent in appearance PLAN Monday for I and D and vac change
[2018-12-15] MEDS ORDERED: PT OWN MED DRAWER 7, Y5N ONE ×4 (10:48→18:17)
[2018-12-15] MEDS: PANTOPRAZOLE 40 MG TABLET (FP) PO SCH (10:54)
[2018-12-15] MEDS: oxyCODONE HCL 80 MG SUSTAINED ACTING TABLET PO SCH ×2 (10:55→21:42)
[2018-12-15] MEDS: POLYETHYLENE GLYCOL 3350 119 GM BTL PO SCH (10:56)
[2018-12-15] MEDS: FLUCONAZOLE 100 MG TABLET (UD) PO SCH (10:56)
[2018-12-15] MEDS: CYCLOBENZAPRINE HCL 5 MG TABLET PO SCH (10:56)
[2018-12-15] MEDS: ASPIRIN 325 MG ENTERIC COATED TABLET (FP) PO SCH (10:57)
[2018-12-15] MEDS: LIDOCAINE 5% TOPICAL PATCH TP SCH (10:57)
[2018-12-15] MEDS: DULoxetine HCL 30 MG CAPSULE.DR (FP) PO SCH ×2 (10:58→21:42)
[2018-12-15] MEDS: ERTAPENEM SODIUM 1 GM in SODIUM CHLORIDE 50 ML IVPB SCH (12:28)
--- NOTE | 2018-12-15 13:24 | PN ---
Progress Note, Physician - Current Medication List Current Medications: Active Medications Al Hydroxide/Mg Hydroxide (Mylanta Oral Suspension -) 30 ml PO Q6HPO PRN PRN Reason: DYSPEPSIA Aspirin (Ecotrin -) 325 mg PO DAILY [facility] Last Admin: 12/15/18 10:57 Dose: 325 mg Cyclobenzaprine HCl (Cyclobenzaprine Hcl) 5 mg PO DAILY [facility] Last Admin: 12/15/18 10:56 Dose: 5 mg Docusate Sodium (Colace -) 100 mg PO TID [facility] Last Admin: 12/15/18 08:33 Dose: 100 mg Duloxetine HCl (Cymbalta -) 30 mg PO BID [facility] Last Admin: 12/15/18 10:58 Dose: 30 mg Ferrous Sulfate (Feosol -) 325 mg PO BIDWM [facility] Last Admin: 12/15/18 08:34 Dose: 325 mg Fluconazole (Diflucan -) 200 mg PO DAILY [facility] Last Admin: 12/15/18 10:56 Dose: 200 mg Sodium Chloride (Normal Saline -) 1,000 mls @ 100 mls/hr IV ASDIR [facility] Last Admin: 12/14/18 16:44 Dose: 100 mls/hr Ertapenem 1 gm/ Sodium (Chloride) 50 mls @ 100 mls/hr IVPB DAILY [facility] Last Admin: 12/15/18 12:28 Dose: 100 mls/hr Daptomycin 400 mg/ Sodium (Chloride) 50 mls @ 50 mls/hr IVPB Q24H [facility]; Protocol Lidocaine (Lidoderm Patch -) 1 patch TP DAILY [facility] Last Admin: 12/15/18 10:57 Dose: 1 patch Miscellaneous (Lidoderm Patch Removal) 1 each MC DAILY@2200 [facility] Last Admin: 12/14/18 22:21 Dose: 1 each Oxybutynin Chloride (Ditropan -) 5 mg PO TID [facility] Last Admin: 12/15/18 08:33 Dose: 5 mg Oxycodone HCl (Oxycontin -) 80 mg PO BID [facility] Last Admin: 12/15/18 10:55 Dose: 80 mg Oxycodone HCl (Roxicodone -) 30 mg PO Q4H PRN PRN Reason: PAIN LEVEL 7 - 10 Last Admin: 12/15/18 08:34 Dose: 30 mg Oxycodone HCl (Roxicodone -) 15 mg PO Q4H PRN PRN Reason: PAIN LEVEL 4 - 6 Last Admin: 12/15/18 12:27 Dose: 15 mg Pantoprazole Sodium (Protonix -) 40 mg PO DAILY [facility] Last Admin: 12/15/18 10:54 Dose: 40 mg Polyethylene Glycol (Miralax (For Daily Use) -) 17 gm PO DAILY [facility] Last Admin: 12/15/18 10:56 Dose: Not Given Pregabalin (Lyrica -) 100 mg PO TID [facility] Last Admin: 12/15/18 08:34 Dose: 100 mg Senna (Senna -) 2 tab PO HS PRN PRN Reason: CONSTIPATION Simethicone (Mylicon Liquid -) 40 mg PO Q6H PRN PRN Reason: INDIGESTION - Objective Vital Signs: Vital Signs Temperature 100 F H 12/14/18 17:26 Pulse Rate 130 H 12/14/18 17:26 Respiratory Rate 22 H 12/14/18 17:26 Blood Pressure 127/84 12/14/18 17:26 O2 Sat by Pulse Oximetry (%) 98 12/14/18 09:00 Constitutional: Yes: Well Nourished, No Distress, Calm Eyes: Yes: WNL, Conjunctiva Clear, EOM Intact HENT: Yes: WNL, Atraumatic, Normocephalic Neck: Yes: WNL, Supple, Trachea Midline Cardiovascular: Yes: WNL, Regular Rate and Rhythm Respiratory: Yes: WNL, Regular, CTA Bilaterally Gastrointestinal: Yes: WNL, Normal Bowel Sounds, Soft ...Rectal Exam: Yes: Deferred Musculoskeletal: Yes: WNL Extremities: Yes: WNL Edema: No Integumentary: Yes: WNL Neurological: Yes: WNL, Alert, Oriented ...Motor Strength: WNL Psychiatric: Yes: WNL, Alert, Oriented Labs: CBC, BMP 12/15/18 05:45 12/15/18 05:45 INR, PTT INR 1.08 (0.83-1.09) 12/10/18 10:30 Assessment/Plan Wound, open, hip or thigh - Chronic left hip wound-with ESBL E coli and E Faecalis growing from the wound. s/p I&D left hip wound - debridement of soft tissue, muscle, bone, VAC application on 11/19, subsequently multiple I and D wound wash , underwent s/p osteotomy left femur, removal of hardware (explant femoral component), - I&D left hip wound; partial removal of cement mantle; exchange left hip wound vac on 12/10, today schedule for washout at 8.00 PM .NPO after 10.00 am . - on doxy/fluconazole/levaquin. further recommendations per orthopedic team and ID. pain control. will need VNS for wound vac management hypertension Well controlled control BP meds on Hold Depression - at present Euthymic - Continue Cymbalta, - Valium as needed. Chronic pain - cont Pain meds Anemia Acute blood loss anemia- s/p 3 unit PRBC F/U H/H Urinary incontinence - Cont oxybutin Thrombocytosis Reactive due to chronic infection. Sepsis - resolved - Spiked fever tachycardia, culture is growing ESBL E Colli and Enterococus , will start IV Meropenem, blood culture - ID consult and Sr Lactic acid, IV hydration.DC PO meds
[2018-12-15] MEDS: SODIUM CHLORIDE 1,000 ML IV SCH (16:32)
[2018-12-15] MEDS: DAPTOMYCIN 400 MG in SODIUM CHLORIDE 50 ML IVPB SCH (18:20)
[2018-12-15] MEDS: LIDOCAINE PATCH REMOVAL MC SCH (21:43)
[2018-12-15] MEDS ORDERED: ACETAMINOPHEN 325 MG TABLET (FP) PO ONE (23:57)
[2018-12-16] MEDS: oxyCODONE HCL 5 MG TABLET PO PRN ×5 (00:20→22:28)
[2018-12-16] MEDS: PREGABALIN 100 MG CAPSULE PO SCH ×3 (06:17→21:11)
[2018-12-16] MEDS: DOCUSATE SODIUM 100 MG CAPSULE (FP) PO SCH ×3 (06:17→21:11)
[2018-12-16] MEDS: OXYBUTYNIN CHLORIDE 5 MG TABLET PO SCH ×3 (06:17→21:12)
--- NOTE | 2018-12-16 07:56 | PN ---
Progress Note, Physician History of Present Illness: patient is doing well she is complaining that she wants to go home. besides that she is doing well - Current Medication List Current Medications: Active Medications Al Hydroxide/Mg Hydroxide (Mylanta Oral Suspension -) 30 ml PO Q6HPO PRN PRN Reason: DYSPEPSIA Aspirin (Ecotrin -) 325 mg PO DAILY [facility] Last Admin: 12/15/18 10:57 Dose: 325 mg Cyclobenzaprine HCl (Cyclobenzaprine Hcl) 5 mg PO DAILY [facility] Last Admin: 12/15/18 10:56 Dose: 5 mg Docusate Sodium (Colace -) 100 mg PO TID [facility] Last Admin: 12/16/18 06:17 Dose: 100 mg Duloxetine HCl (Cymbalta -) 30 mg PO BID [facility] Last Admin: 12/15/18 21:42 Dose: 30 mg Ferrous Sulfate (Feosol -) 325 mg PO BIDWM [facility] Last Admin: 12/15/18 18:20 Dose: 325 mg Fluconazole (Diflucan -) 200 mg PO DAILY [facility] Last Admin: 12/15/18 10:56 Dose: 200 mg Sodium Chloride (Normal Saline -) 1,000 mls @ 100 mls/hr IV ASDIR [facility] Last Admin: 12/15/18 16:32 Dose: 100 mls/hr Ertapenem 1 gm/ Sodium (Chloride) 50 mls @ 100 mls/hr IVPB DAILY [facility] Last Admin: 12/15/18 12:28 Dose: 100 mls/hr Daptomycin 400 mg/ Sodium (Chloride) 50 mls @ 50 mls/hr IVPB Q24H [facility]; Protocol Last Admin: 12/15/18 18:20 Dose: 50 mls/hr Lidocaine (Lidoderm Patch -) 1 patch TP DAILY [facility] Last Admin: 12/15/18 10:57 Dose: 1 patch Miscellaneous (Lidoderm Patch Removal) 1 each MC DAILY@2200 [facility] Last Admin: 12/15/18 21:43 Dose: 1 each Oxybutynin Chloride (Ditropan -) 5 mg PO TID [facility] Last Admin: 12/16/18 06:17 Dose: 5 mg Oxycodone HCl (Oxycontin -) 80 mg PO BID [facility] Last Admin: 12/15/18 21:42 Dose: 80 mg Oxycodone HCl (Roxicodone -) 30 mg PO Q4H PRN PRN Reason: PAIN LEVEL 7 - 10 Last Admin: 12/16/18 06:35 Dose: 30 mg Oxycodone HCl (Roxicodone -) 15 mg PO Q4H PRN PRN Reason: PAIN LEVEL 4 - 6 Last Admin: 12/15/18 12:27 Dose: 15 mg Pantoprazole Sodium (Protonix -) 40 mg PO DAILY [facility] Last Admin: 12/15/18 10:54 Dose: 40 mg Polyethylene Glycol (Miralax (For Daily Use) -) 17 gm PO DAILY [facility] Last Admin: 12/15/18 10:56 Dose: Not Given Pregabalin (Lyrica -) 100 mg PO TID [facility] Last Admin: 12/16/18 06:17 Dose: 100 mg Senna (Senna -) 2 tab PO HS PRN PRN Reason: CONSTIPATION Simethicone (Mylicon Liquid -) 40 mg PO Q6H PRN PRN Reason: INDIGESTION - Objective Vital Signs: Vital Signs Temperature 98.3 F 12/16/18 05:40 Pulse Rate 105 H 12/16/18 05:40 Respiratory Rate 20 12/16/18 05:40 Blood Pressure 79/39 L 12/16/18 05:40 O2 Sat by Pulse Oximetry (%) 95 12/15/18 21:00 Constitutional: Yes: Well Nourished, No Distress, Calm Eyes: Yes: WNL, Conjunctiva Clear, EOM Intact HENT: Yes: WNL, Atraumatic, Normocephalic Neck: Yes: WNL, Supple, Trachea Midline Cardiovascular: Yes: WNL, Regular Rate and Rhythm, S1, S2 Respiratory: Yes: WNL, Regular, CTA Bilaterally Gastrointestinal: Yes: WNL, Normal Bowel Sounds, Soft Extremities: Yes: WNL (drain is still connected to the left thigh, and it showed full) Edema: No Integumentary: Yes: WNL Wound/Incision: Yes: Clean/Dry, Well Approximated Neurological: Yes: WNL, Alert, Oriented ...Motor Strength: WNL Psychiatric: Yes: WNL, Alert, Oriented Labs: CBC, BMP 12/15/18 05:45 12/15/18 05:45 INR, PTT INR 1.08 (0.83-1.09) 03/25/19 10:30 Assessment/Plan Wound, open, hip or thigh - Chronic left hip wound-with ESBL E coli and E Faecalis growing from the wound. s/p I&D left hip wound - debridement of soft tissue, muscle, bone, VAC application on 11/19, subsequently multiple I and D wound wash , underwent s/p osteotomy left femur, removal of hardware (explant femoral component), - I&D left hip wound; partial removal of cement mantle; exchange left hip wound vac on 12/10, today schedule for washout at 8.00 PM .NPO after 10.00 am . - on doxy/fluconazole/levaquin. further recommendations per orthopedic team and ID. pain control. will need VNS for wound vac management - STILL DRAINING fluid hypertension Well controlled control BP meds on Hold Depression - at present Euthymic - Continue Cymbalta, - Valium as needed. Chronic pain - cont Pain meds Anemia Acute blood loss anemia- s/p 3 unit PRBC F/U H/H Urinary incontinence - Cont oxybutin Thrombocytosis Reactive due to chronic infection. Sepsis - resolved - Spiked fever tachycardia, culture is growing ESBL E Colli and Enterococus , will start IV Meropenem, blood culture - ID consult and Sr Lactic acid, IV hydration.DC PO meds
[2018-12-16] MEDS: FERROUS SO4 325 MG TABLET (FP) PO SCH ×2 (08:28→17:30)
[2018-12-16] MEDS ORDERED: PT OWN MED DRAWER 7, Y5N ONE (10:34)
[2018-12-16] MEDS: LIDOCAINE 5% TOPICAL PATCH TP SCH (10:37)
[2018-12-16] MEDS: ERTAPENEM SODIUM 1 GM in SODIUM CHLORIDE 50 ML IVPB SCH (10:38)
[2018-12-16] MEDS: PANTOPRAZOLE 40 MG TABLET (FP) PO SCH (10:39)
[2018-12-16] MEDS: FLUCONAZOLE 100 MG TABLET (UD) PO SCH (10:40)
[2018-12-16] MEDS: CYCLOBENZAPRINE HCL 5 MG TABLET PO SCH (10:40)
[2018-12-16] MEDS: oxyCODONE HCL 80 MG SUSTAINED ACTING TABLET PO SCH ×2 (10:40→21:10)
[2018-12-16] MEDS: ASPIRIN 325 MG ENTERIC COATED TABLET (FP) PO SCH (10:41)
[2018-12-16] MEDS: DULoxetine HCL 30 MG CAPSULE.DR (FP) PO SCH ×2 (10:41→21:12)
[2018-12-16] MEDS: POLYETHYLENE GLYCOL 3350 119 GM BTL PO SCH (10:41)
[2018-12-16 10:49] LABS: BASO % 0.4 % (0-2.0); EOS % 2.5 % (0-4.5); HEMATOCRIT 24.2 % (32.4-45.2); HEMOGLOBIN 7.9 GM/dL (10.7-15.3); LYMPH % 9.8 % (8-40); MCH 24.8 pg (25.7-33.7); MCHC 32.6 g/dl (32.0-36.0); MEAN CELL VOLUME 76.1 fl (80-96); MEAN PLT VOLUME 7.1 fl (7.5-11.1); MONO % 9.9 % (3.8-10.2); NEUT % 77.4 % (42.8-82.8); PLATELET COUNT 400 K/MM3 (134-434); RBC 3.18 M/mm3 (3.60-5.2); RDW 21.5 % (11.6-15.6); WHITE BLOOD COUNT 9.8 K/mm3 (4.0-10.0)
[2018-12-16 11:18] LABS: ALBUMIN 1.8 g/dl (3.4-5.0); ALK PHOS 92 U/L (45-117); ANION GAP 7 MMOL/L (8-16); BILIRUBIN,TOTAL 0.1 mg/dL (0.2-1); BLOOD UREA NITROGEN 12 mg/dL (7-18); CHLORIDE 108 mmol/L (98-107); CO2 23 mmol/L (21-32); CREATININE 0.7 mg/dL (0.55-1.3); GLUCOSE,RANDOM 121 mg/dL (74-106); POTASSIUM 3.9 mmol/L (3.5-5.1); SGOT/AST 12 U/L (15-37); SGPT/ALT 13 U/L (13-61); SODIUM 139 mmol/L (136-145); TOT PROT 5.9 g/dl (6.4-8.2)
--- NOTE | 2018-12-16 15:26 | PN ---
Progress Note (short form) - Note Progress Note: fevers trending down for washout in am hardware removed 12/10 no nausea or vomiting no diarrhea Vital Signs Period Temp Pulse Resp BP Sys/Vargas Pulse Ox Last 24 Hr 98.3 F-100.6 F 105-126 20-20 79-131/39-81 95 cor-rrr lungs clear abd soft, nt vac in place CBC, BMP 12/16/18 10:30 12/16/18 10:30 Microbiology 12/14/18 14:45 Blood - Peripheral Venous Blood Culture - Preliminary NO GROWTH OBTAINED AFTER 48 HOURS, INCUBATION TO CONTINUE FOR 3 DAYS. 12/10/18 20:57 Hip - Left Gram Stain - Final 12/10/18 20:57 Hip - Left Wound Culture - Final Enterococcus Faecalis Escherichia Coli Vanco Resistant Enterococcus 12/10/18 21:15 Tissue-Other Gram Stain - Final 12/10/18 21:15 Tissue-Other Tissue Culture - Final Escherichia Coli Esbl Security Architect Vr Ec Faecalis Diphtheroid/Corynebacterium 12/10/18 21:15 Tissue-Other Anaerobic Culture - Final NO ANAEROBES WERE ISOLATED 12/07/18 21:00 Hip - Left Gram Stain - Final 12/07/18 21:00 Hip - Left Wound Culture - Final Escherichia Coli Esbl Security Architect Enterococcus Faecalis 12/01/18 10:45 Blood - Peripheral Venous Blood Culture - Final NO GROWTH AFTER 5 DAYS INCUBATION 12/01/18 10:50 Blood - Peripheral Venous Blood Culture - Final NO GROWTH AFTER 5 DAYS INCUBATION 12/03/18 12:35 Hip - Left Gram Stain - Final 12/03/18 12:35 Hip - Left Wound Culture - Final Staphylococcus Coagulase Neg Non Lactose Fermenting Gnb Group D Strep Or Entero Coccus 12/03/18 12:35 Hip - Left Gram Stain - Final 12/03/18 12:35 Hip - Left Wound Culture - Final Staphylococcus Coagulase Neg Escherichia Coli Enterococcus Faecalis 11/29/18 07:00 Blood - Peripheral Venous Blood Culture - Final NO GROWTH AFTER 5 DAYS INCUBATION 11/29/18 06:30 Blood - Peripheral Venous Blood Culture - Final NO GROWTH AFTER 5 DAYS INCUBATION 11/30/18 18:00 Urine - Urine - Catheterized Urine Culture - Final NO GROWTH OBTAINED 11/26/18 23:00 Hip - Left Gram Stain - Final 11/26/18 23:00 Hip - Left Wound Culture - Final Escherichia Coli Enterococcus Faecalis 11/26/18 23:00 Hip - Left Gram Stain - Final 11/26/18 23:00 Hip - Left Wound Culture - Final Escherichia Coli Enterococcus Faecalis 11/23/18 13:58 Abscess Gram Stain - Final 11/23/18 13:58 Abscess Wound Culture - Final Non Lactose Fermenting Gnb Group D Strep Or Entero Coccus Diphtheroid/Corynebacterium 11/23/18 13:55 Abscess Gram Stain - Final 11/23/18 13:55 Abscess Wound Culture - Final Escherichia Coli Enterococcus Faecalis Diphtheroid/Corynebacterium 11/19/18 15:00 Hip - Left Gram Stain - Final 11/19/18 15:00 Hip - Left Wound Culture - Final Staphylococcus Coagulase Neg Diphtheroid/Corynebacterium Group D Strep Or Entero Coccus Escherichia Coli 11/19/18 15:00 Hip - Left Gram Stain - Final 11/19/18 15:00 Hip - Left Wound Culture - Final Staphylococcus Coagulase Neg Diphtheroid/Corynebacterium Gamma Hemolytic Streptococcus Escherichia Coli a/p fevers trending down chronically infected hip hardware now out would target treatment to operative pathogens including ecoli esbl, VREF now that hardware is out- this is finally a chance for cure if there is no remaining hardware continue daptomycin and ertapenem have left message with Dr Moya's office to discuss management awaiting call back blood cultues negativewbc trending down continue contact isolation
[2018-12-16] MEDS: SODIUM CHLORIDE 1,000 ML IV SCH (17:29)
[2018-12-16] MEDS: DAPTOMYCIN 400 MG in SODIUM CHLORIDE 50 ML IVPB SCH (17:30)
[2018-12-16] MEDS: LIDOCAINE PATCH REMOVAL MC SCH (21:17)
[2018-12-17] MEDS: oxyCODONE HCL 5 MG TABLET PO PRN ×3 (02:10→21:27)
[2018-12-17] MEDS: DOCUSATE SODIUM 100 MG CAPSULE (FP) PO SCH ×2 (06:05→21:27)
[2018-12-17] MEDS: PREGABALIN 100 MG CAPSULE PO SCH ×2 (06:05→21:26)
[2018-12-17] MEDS: OXYBUTYNIN CHLORIDE 5 MG TABLET PO SCH ×2 (06:05→21:28)
[2018-12-17 07:29] LABS: BASO % 0.4 % (0-2.0); EOS % 2.5 % (0-4.5); HEMATOCRIT 23.1 % (32.4-45.2); HEMOGLOBIN 7.5 GM/dL (10.7-15.3); MCH 24.2 pg (25.7-33.7); MCHC 32.4 g/dl (32.0-36.0); MEAN CELL VOLUME 74.8 fl (80-96); MONO % 9.2 % (3.8-10.2); NEUT % 74.9 % (42.8-82.8); PLATELET COUNT 346 K/MM3 (134-434); WHITE BLOOD COUNT 9.6 K/mm3 (4.0-10.0)
[2018-12-17 08:11] LABS: ALBUMIN 1.7 g/dl (3.4-5.0); ALK PHOS 84 U/L (45-117); ANION GAP 9 MMOL/L (8-16); BILIRUBIN,TOTAL 0.2 mg/dL (0.2-1); BLOOD UREA NITROGEN 12 mg/dL (7-18); CALCIUM 7.9 mg/dL (8.5-10.1); CHLORIDE 107 mmol/L (98-107); CO2 22 mmol/L (21-32); CREATININE 0.7 mg/dL (0.55-1.3); GLUCOSE,RANDOM 95 mg/dL (74-106); POTASSIUM 3.9 mmol/L (3.5-5.1); SGOT/AST 12 U/L (15-37); SGPT/ALT 12 U/L (13-61); SODIUM 139 mmol/L (136-145); TOT PROT 5.5 g/dl (6.4-8.2)
[2018-12-17] MEDS: FERROUS SO4 325 MG TABLET (FP) PO SCH ×2 (10:36→18:24)
[2018-12-17] MEDS: CYCLOBENZAPRINE HCL 5 MG TABLET PO SCH ×2 (10:36→12:01)
[2018-12-17] MEDS: POLYETHYLENE GLYCOL 3350 119 GM BTL PO SCH (10:37)
[2018-12-17] MEDS: ASPIRIN 325 MG ENTERIC COATED TABLET (FP) PO SCH (10:37)
[2018-12-17] MEDS: DULoxetine HCL 30 MG CAPSULE.DR (FP) PO SCH ×3 (10:37→21:28)
[2018-12-17] MEDS: PANTOPRAZOLE 40 MG TABLET (FP) PO SCH (10:37)
[2018-12-17] MEDS ORDERED: PT OWN MED DRAWER 7, Y5N ONE ×2 (10:42→18:18)
[2018-12-17] MEDS: LIDOCAINE 5% TOPICAL PATCH TP SCH (10:49)
[2018-12-17] MEDS: oxyCODONE HCL 80 MG SUSTAINED ACTING TABLET PO SCH ×2 (10:49→21:27)
[2018-12-17] MEDS: ERTAPENEM SODIUM 1 GM in SODIUM CHLORIDE 50 ML IVPB SCH (10:53)
--- NOTE | 2018-12-17 10:59 | EKG ---
Test Reason : Blood Pressure : / mmHG Vent. Rate : 118 BPM Atrial Rate : 118 BPM P-R Int : 136 ms QRS Dur : 082 ms QT Int : 320 ms P-R-T Axes : 039 035 044 degrees QTc Int : 448 ms SINUS TACHYCARDIA OTHERWISE NORMAL ECG WHEN COMPARED WITH ECG OF 07-DEC-2018 12:59, NO SIGNIFICANT CHANGE WAS FOUND Confirmed by BERTHA CHOW MD ([id number]) on 12/17/2018 10:58:48 AM Referred By: Alebrt Moya Confirmed By:BERTHA CHOW MD
--- NOTE | 2018-12-17 12:52 | PN ---
Progress Note (short form) - Note Progress Note: H&P reviewed. No change in physical examination or plan. Will proceed with I&D left hip wound with either exchange of wound vac or primary closure. Albert Moya MD (Orthopaedic Surgery).
[2018-12-17] MEDS ORDERED: LIDOCAINE HCL/PF 2% SDV 5ML VIAL ONE (13:37)
[2018-12-17] MEDS ORDERED: PROPOFOL 20 ML ONE (13:37)
--- NOTE | 2018-12-17 14:29 | PN ---
Progress Note (short form) - Note Progress Note: 63F s/p left hip I&D, and exchange of wound vac dressing POD #0. -Pain control. -DVT PPx: - Chemical: ASA 81mg PO BID. - Mechanical: SOUTH's, SCD's. -Incentive spirometry. -PT/OT/Rehab, OOB. -NWB LLE. -f/u post-op trial of void - 8 hours max. -f/u AM labs. -Care per medical hospitalist team. -Will plan to exchange wound vac dressing. -Will follow. Albert Moya MD (Orthopaedic Surgery).
--- NOTE | 2018-12-17 14:34 | OP ---
Operative Note - Note: Operative Date: 12/17/18 Pre-Operative Diagnosis: Chronic left hip wound Operation: 1. I&D left hip. 2. Wound vac exchange left hip Post-Operative Diagnosis: Same as Pre-op Surgeon: Albert Moya Anesthesiologist/WHEEL TRUING MACHINE TENDER: Blanca Humphrey Anesthesia: General Estimated Blood Loss (mls): 0 Drains & Tubes with Location: Left hip wound vac Fluid Volume Replaced (mls): 500 (Crystalloid) Operative Report Dictated: Yes
[2018-12-17] MEDS ORDERED: ONDANSETRON 4 MG/2 ML VIAL IVPUSH PRN ×2 (14:39→17:02)
[2018-12-17] MEDS ORDERED: MAG HYDROX/AL HYDROX/SIMETH 30 ML UNIT-DOSE CUP PO PRN (17:02)
[2018-12-17] MEDS ORDERED: SENNOSIDES 8.6MG TABLET (FP) PO PRN (17:02)
[2018-12-17] MEDS ORDERED: SIMETHICONE 40 MG/0.6 ML BOTTLE PO PRN (17:02)
[2018-12-17] MEDS: SODIUM CHLORIDE 1,000 ML IV SCH (17:30)
[2018-12-17] MEDS: DAPTOMYCIN 400 MG in SODIUM CHLORIDE 50 ML IVPB SCH ×3 (18:24→18:25)
--- NOTE | 2018-12-17 20:52 | PN ---
Physical Exam: SUBJECTIVE: Patient seen and examined -left hip I&D, and exchange of wound vac dressing done today - pt would like to be d/felisa home this week OBJECTIVE: Vital Signs Period Temp Pulse Resp BP Sys/Vargas Pulse Ox Last 24 Hr 97.6 F-99.2 F 71-118 12-20 101-130/62-72 95-100 GENERAL: The patient is awake, alert, and fully oriented, in no acute distress. HEAD: Normal with no signs of trauma. EYES: PERRL, sclera anicteric, conjunctiva clear. ENT: nares patent, oropharynx clear without exudates, + poor dentition, moist mucous membranes. NECK: Trachea midline, full range of motion, supple. LUNGS: Breath sounds equal, clear to auscultation bilaterally, no wheezes, no crackles, no accessory muscle use. HEART: Regular rate and rhythm, S1, S2 without murmur, rub or gallop. ABDOMEN: Soft, nontender, non-distended, + increased girth, normoactive bowel sounds, no guarding, EXTREMITIES: 2+ pulses, warm, well-perfused, no edema. Left hip: clear dsg with wound vac NEUROLOGICAL: WC BOUND Normal speech, gait not observed. PSYCH: Normal mood, normal affect. SKIN: Warm, dry, normal turgor, Laboratory Results - last 24 hr 12/17/18 12/17/18 06:30 06:30 WBC 9.6 RBC 3.10 L Hgb 7.5 L Hct 23.1 L MCV 74.8 L MCH 24.2 L MCHC 32.4 RDW 22.0 H Plt Count 346 MPV 7.0 L Absolute Neuts (auto) 7.1 Neutrophils % 74.9 Lymphocytes % 13.0 D Monocytes % 9.2 Eosinophils % 2.5 Basophils % 0.4 Nucleated RBC % 0 Sodium 139 Potassium 3.9 Chloride 107 Carbon Dioxide 22 Anion Gap 9 BUN 12 Creatinine 0.7 Creat Clearance w eGFR 84.51 Random Glucose 95 Calcium 7.9 L Total Bilirubin 0.2 AST 12 L ALT 12 L Alkaline Phosphatase 84 Total Protein 5.5 L Albumin 1.7 L Active Medications Generic Name Dose Route Start Last Admin Trade Name Freq PRN Reason Stop Dose Admin Al Hydroxide/Mg Hydroxide 30 ml 12/17/18 17:02 Mylanta Oral Suspension - PO Q6HPO PRN DYSPEPSIA Aspirin 325 mg 12/18/18 10:00 Ecotrin - PO DAILY [facility] Cyclobenzaprine HCl 5 mg 12/18/18 10:00 Cyclobenzaprine Hcl PO DAILY [facility] Docusate Sodium 100 mg 12/17/18 22:00 Colace - PO TID [facility] Duloxetine HCl 30 mg 12/17/18 22:00 Cymbalta - PO BID [facility] Fentanyl 25 mcg 12/17/18 17:02 Sublimaze Injection - IVPUSH 12/18/18 03:00 Q5M PRN PAIN-PACU ORDER X 4 DOSES ONLY Ferrous Sulfate 325 mg 12/17/18 17:30 12/17/18 18:24 Feosol - PO 325 mg BIDWM [facility] Administration Daptomycin 400 mg/ Sodium 50 mls @ 100 mls/hr 12/17/18 17:30 12/17/18 18:25 Chloride IVPB 100 mls/hr Q24H [facility] Administration Protocol Ertapenem 1 gm/ Sodium 50 mls @ 100 mls/hr 12/18/18 10:00 Chloride IVPB DAILY [facility] Sodium Chloride 1,000 mls @ 100 mls/hr 12/17/18 17:02 12/17/18 17:30 Normal Saline - IV 0 mls ASDIR [facility] Administration Lidocaine 1 patch 12/18/18 10:00 Lidoderm Patch - TP DAILY [facility] Miscellaneous 1 each 12/17/18 22:00 Lidoderm Patch Removal MC DAILY@2200 [facility] Ondansetron HCl 4 mg 12/17/18 17:02 Zofran Injection IVPUSH Q6H PRN NAUSEA AND/OR VOMITING Oxybutynin Chloride 5 mg 12/17/18 22:00 Ditropan - PO TID [facility] Oxycodone HCl 80 mg 12/17/18 22:00 Oxycontin - PO BID [facility] Pantoprazole Sodium 40 mg 12/18/18 10:00 Protonix - PO DAILY [facility] Polyethylene Glycol 17 gm 12/18/18 10:00 Miralax (For Daily Use) - PO DAILY [facility] Pregabalin 100 mg 12/17/18 22:00 Lyrica - PO TID [facility] Senna 2 tab 12/17/18 17:02 Senna - PO HS PRN CONSTIPATION Simethicone 40 mg 12/17/18 17:02 Mylicon Liquid - PO Q6H PRN INDIGESTION ASSESSMENT/PLAN: 63 year old female with a significant past medical history of hypertension, anxiety, depression, chronic pain and chronic left hip left wound. who has undergone left hip debridement of soft tissue, muscle, bone, VAC application on 11/19, subsequently multiple I and D wound wash , underwent s/p osteotomy left femur, removal of hardware (explant femoral component),- I&D left hip wound; partial removal of cement mantle; exchange left hip wound vac on 12/10. Wound, open, hip or thigh, s/p I&D left hip wound - Chronic left hip wound-with ESBL E coli and E Faecalis growing from the wound. - on doxy/fluconazole - continue dapto and meropenem as per ID -recommendations per orthopedic team and ID. -pain control with oxycodone, lyrica, flexeril and lidoderm patch - VNS referral for wound vac management - PICC line ordered for longerm abx administration hypertension: Well controlled control BP meds on Hold Depression - Continue Cymbalta, - Valium as needed. Anemia (Acute blood loss anemia- s/p 3 unit PRBC) -transfuse 1 unit PRBC for H/H 7.02/07 in light of OR procedure today -trend H/H -Oral iron daily Urinary incontinence: - Cont oxybutin DISPO: Full code PPX: - PPI daily - bowel regimen with senna, miralax and colace -simethicone PRN gas pain Problem List - Problems (1) Prophylactic measure Code(s): Z29.9 - ENCOUNTER FOR PROPHYLACTIC MEASURES, UNSPECIFIED (2) Depression Code(s): F32.9 - MAJOR DEPRESSIVE DISORDER, SINGLE EPISODE, UNSPECIFIED (3) HTN (hypertension) Code(s): I10 - ESSENTIAL (PRIMARY) HYPERTENSION (4) Chronic pain Code(s): G89.29 - OTHER CHRONIC PAIN (5) Wound, open, hip or thigh Code(s): [facility]3215 - (6) Anemia Code(s): D64.9 - ANEMIA, UNSPECIFIED Visit type - Emergency Visit Emergency Visit: No - New Patient This patient is new to me today: No - Critical Care Critical Care patient: No - Discharge Referral Referred to [facility] Med P.C.: No
[2018-12-17] MEDS: LIDOCAINE PATCH REMOVAL MC SCH (21:27)
[2018-12-17] MEDS ORDERED: LIDOCAINE PATCH REMOVAL MC SCH (22:00)
--- NOTE | 2018-12-18 00:06 | OP ---
DATE OF OPERATION: DATE OF DICTATION: 12/17/2018 SURGEON: Albert Moya MD PLASTER MIXER: Gelacio Moya MD PREOPERATIVE DIAGNOSIS: Chronic infected hip wound. POSTOPERATIVE DIAGNOSIS: Chronic infected hip wound. OPERATION PERFORMED: 1. Removal of wound VAC. 2. Revision, washout, and debridement with associated insertion of new wound VAC. DESCRIPTION OF PROCEDURE: Patient was brought down to the operating room once again. Once again, nothing has changed in issues. The stem of the implant had been removed as well as the femoral component and the actual tissues themselves appeared granulating, healthy, but the exudate was a thick, coagulase-positive, purulent material as much as one sees in Staphylococcus aureus coagulase-positive findings, except the smell had an anaerobic odor to it. Culture sticks were taken. The wound was thoroughly lavaged with 5 L of saline. Betadine scrub was utilized to wash out and get rid of any biofilm. Once the washout had been completed, a new sponge was inserted into the deep tissues. The wound was sealed and the canister was working well. Patient extricated out of the operating room with no complications. MD OSVALDO Oconnro/[id number]
[2018-12-18] MEDS: oxyCODONE HCL 5 MG TABLET PO PRN ×4 (04:47→23:39)
[2018-12-18] MEDS: OXYBUTYNIN CHLORIDE 5 MG TABLET PO SCH ×3 (05:50→21:06)
[2018-12-18] MEDS: DOCUSATE SODIUM 100 MG CAPSULE (FP) PO SCH ×3 (05:50→21:05)
[2018-12-18] MEDS: PREGABALIN 100 MG CAPSULE PO SCH ×3 (05:51→21:06)
[2018-12-18 10:58] LABS: HEMATOCRIT 31.8 % (32.4-45.2); HEMOGLOBIN 10.3 GM/dL (10.7-15.3); MCH 24.4 pg (25.7-33.7); MCHC 32.3 g/dl (32.0-36.0); MEAN CELL VOLUME 75.7 fl (80-96); MEAN PLT VOLUME 7.2 fl (7.5-11.1); PLATELET COUNT 433 K/MM3 (134-434); RDW 20.4 % (11.6-15.6); WHITE BLOOD COUNT 10.5 K/mm3 (4.0-10.0)
[2018-12-18] MEDS ORDERED: PT OWN MED DRAWER 7, Y5N ONE ×2 (11:13→18:13)
[2018-12-18] MEDS: ASPIRIN 325 MG ENTERIC COATED TABLET (FP) PO SCH (11:15)
[2018-12-18] MEDS: LIDOCAINE 5% TOPICAL PATCH TP SCH (11:15)
[2018-12-18] MEDS: CYCLOBENZAPRINE HCL 5 MG TABLET PO SCH (11:15)
[2018-12-18] MEDS: FERROUS SO4 325 MG TABLET (FP) PO SCH ×2 (11:15→18:18)
[2018-12-18] MEDS: PANTOPRAZOLE 40 MG TABLET (FP) PO SCH (11:15)
[2018-12-18] MEDS: POLYETHYLENE GLYCOL 3350 119 GM BTL PO SCH (11:16)
[2018-12-18] MEDS: DULoxetine HCL 30 MG CAPSULE.DR (FP) PO SCH ×2 (11:16→21:06)
[2018-12-18] MEDS: ERTAPENEM SODIUM 1 GM in SODIUM CHLORIDE 50 ML IVPB SCH (11:22)
[2018-12-18 11:28] LABS: ALBUMIN 1.9 g/dl (3.4-5.0); ALK PHOS 95 U/L (45-117); ANION GAP 7 MMOL/L (8-16); BILIRUBIN,TOTAL 0.4 mg/dL (0.2-1); BLOOD UREA NITROGEN 12 mg/dL (7-18); CALCIUM 8.7 mg/dL (8.5-10.1); CHLORIDE 106 mmol/L (98-107); CO2 25 mmol/L (21-32); CREATININE 0.7 mg/dL (0.55-1.3); GLUCOSE,RANDOM 100 mg/dL (74-106); MAGNESIUM 2.3 mg/dL (1.8-2.4); PHOSPHOROUS 4.8 mg/dL (2.5-4.9); POTASSIUM 4.3 mmol/L (3.5-5.1); SGOT/AST 12 U/L (15-37); SGPT/ALT 16 U/L (13-61); SODIUM 138 mmol/L (136-145); TOT PROT 6.5 g/dl (6.4-8.2)
[2018-12-18] MEDS: oxyCODONE HCL 80 MG SUSTAINED ACTING TABLET PO SCH ×2 (15:23→21:06)
--- NOTE | 2018-12-18 15:59 | PN ---
Progress Note (short form) - Note Progress Note: s/p washout yesterday has vac in place Vital Signs Period Temp Pulse Resp BP Sys/Vargas Pulse Ox Last 24 Hr 97.8 F-100.2 F 91-124 14-20 101-136/61-68 98-100 cor-rrr lungs clear abd soft,nt ext no edema vac in place CBC, BMP 12/18/18 10:16 12/18/18 10:16 operative cultures 12/17 pending a/p fevers trending down chronically infected hip hardware now out would target treatment to operative pathogens including ecoli esbl, VREF now that hardware is out- this is finally a chance for cure if there is no remaining hardware continue daptomycin and ertapenem esr, crp d/w ortho- plan for picc line and iv antiiboitcs daptomycin and ertapenem- minimum 8 weeks, will need to follow esr/crp to determine duration of antibiotic treatment continue contact isolation
[2018-12-18] MEDS: DAPTOMYCIN 400 MG in SODIUM CHLORIDE 50 ML IVPB SCH (18:18)
--- NOTE | 2018-12-18 20:01 | PN ---
Physical Exam: SUBJECTIVE: Patient seen and examined -went to OR for washout yesterday 12/17 -1 unit PRBC overnight. H/H 10.12/16 this morning - PICC line placed for outpt Abx therapy for total of 8weeks OBJECTIVE: Vital Signs Period Temp Pulse Resp BP Sys/Vargas Pulse Ox Last 24 Hr 98 F-100.2 F 101-124 20-20 104-136/51-68 100-100 GENERAL: The patient is awake, alert, and fully oriented, in no acute distress. HEAD: Normal with no signs of trauma. EYES: PERRL, conjunctiva clear. ENT: nares patent, oropharynx clear without exudates, + poor dentition, moist mucous membranes. NECK: Trachea midline, full range of motion, supple. LUNGS: Breath sounds equal, clear to auscultation bilaterally, no wheezes, no crackles, no accessory muscle use. HEART: Regular rate and rhythm, S1, S2 without murmur, rub or gallop. ABDOMEN: Soft, nontender, non-distended, +obese abdomen, normoactive bowel sounds, no guarding, EXTREMITIES: 2+ pulses, warm, well-perfused, no edema. Left hip: clear dsg with wound vac NEUROLOGICAL: WC BOUND Normal speech, PSYCH: Normal mood, normal affect. SKIN: Warm, dry, normal turgor, Laboratory Results - last 24 hr 12/17/18 12/17/18 12/18/18 22:40 23:28 10:16 WBC 10.5 H RBC 4.20 Hgb 10.3 L Hct 31.8 L D MCV 75.7 L MCH 24.4 L MCHC 32.3 RDW 20.4 H Plt Count 433 D MPV 7.2 L Sodium Potassium Chloride Carbon Dioxide Anion Gap BUN Creatinine Creat Clearance w eGFR Random Glucose Calcium Phosphorus Magnesium Total Bilirubin AST ALT Alkaline Phosphatase Total Protein Albumin Blood Type A POSITIVE Antibody Screen Positive H Antibody Identification Non-specific Antigen Identification No Result Required. Crossmatch See Detail See Detail 12/18/18 10:16 WBC RBC Hgb Hct MCV MCH MCHC RDW Plt Count MPV Sodium 138 Potassium 4.3 Chloride 106 Carbon Dioxide 25 Anion Gap 7 L BUN 12 Creatinine 0.7 Creat Clearance w eGFR 84.51 Random Glucose 100 Calcium 8.7 Phosphorus 4.8 Magnesium 2.3 Total Bilirubin 0.4 AST 12 L ALT 16 Alkaline Phosphatase 95 Total Protein 6.5 Albumin 1.9 L Blood Type Antibody Screen Antibody Identification Antigen Identification Crossmatch Active Medications Generic Name Dose Route Start Last Admin Trade Name Mattq PRN Reason Stop Dose Admin Al Hydroxide/Mg Hydroxide 30 ml 12/17/18 17:02 Mylanta Oral Suspension - PO Q6HPO PRN DYSPEPSIA Aspirin 325 mg 12/18/18 10:00 12/18/18 11:15 Ecotrin - PO 325 mg DAILY ELKE Administration Cyclobenzaprine HCl 5 mg 12/18/18 10:00 12/18/18 11:15 Cyclobenzaprine Hcl PO 5 mg DAILY ELKE Administration Docusate Sodium 100 mg 12/17/18 22:00 12/18/18 15:06 Colace - PO 100 mg TID ELKE Administration Duloxetine HCl 30 mg 12/17/18 22:00 12/18/18 11:16 Cymbalta - PO 30 mg BID ELKE Administration Ferrous Sulfate 325 mg 12/17/18 17:30 12/18/18 18:18 Feosol - PO 325 mg BIDWM ELKE Administration Daptomycin 400 mg/ Sodium 50 mls @ 100 mls/hr 12/17/18 17:30 12/18/18 18:18 Chloride IVPB 12/18/18 22:00 100 mls/hr Q24H ELKE Administration Protocol Ertapenem 1 gm/ Sodium 50 mls @ 100 mls/hr 12/18/18 10:00 12/18/18 11:22 Chloride IVPB 100 mls/hr DAILY ELKE Administration Sodium Chloride 1,000 mls @ 100 mls/hr 12/17/18 17:02 12/17/18 17:30 Normal Saline - IV 0 mls ASDIR ELKE Administration Daptomycin 500 mg/ Sodium 50 mls @ 50 mls/hr 12/19/18 17:30 Chloride IVPB Q24H ELKE Protocol Lidocaine 1 patch 12/18/18 10:00 12/18/18 11:15 Lidoderm Patch - TP 1 patch DAILY ELKE Administration Miscellaneous 1 each 12/17/18 22:00 12/17/18 21:27 Lidoderm Patch Removal MC 1 each DAILY@2200 ELKE Administration Ondansetron HCl 4 mg 12/17/18 17:02 Zofran Injection IVPUSH Q6H PRN NAUSEA AND/OR VOMITING Oxybutynin Chloride 5 mg 12/17/18 22:00 12/18/18 15:06 Ditropan - PO 5 mg TID ELKE Administration Oxycodone HCl 80 mg 12/17/18 22:00 12/18/18 15:23 Oxycontin - PO 80 mg BID ELKE Administration Oxycodone HCl 30 mg 12/17/18 20:52 12/18/18 18:38 Roxicodone - PO 30 mg Q6H PRN Administration PAIN LEVEL 7 - 10 Pantoprazole Sodium 40 mg 12/18/18 10:00 12/18/18 11:15 Protonix - PO 40 mg DAILY ELKE Administration Polyethylene Glycol 17 gm 12/18/18 10:00 12/18/18 11:16 Miralax (For Daily Use) - PO 17 grams DAILY ELKE Administration Pregabalin 100 mg 12/17/18 22:00 12/18/18 15:07 Lyrica - PO 100 mg TID ELKE Administration Senna 2 tab 12/17/18 17:02 Senna - PO HS PRN CONSTIPATION Simethicone 40 mg 12/17/18 17:02 Mylicon Liquid - PO Q6H PRN INDIGESTION ASSESSMENT/PLAN: 63 year old female with a significant past medical history of hypertension, anxiety, depression, chronic pain and chronic left hip left wound. who has undergone left hip debridement of soft tissue, muscle, bone, VAC application on 11/19, subsequently multiple I and D wound wash , underwent s/p osteotomy left femur, removal of hardware (explant femoral component),- I&D left hip wound; partial removal of cement mantle; exchange left hip wound vac on 12/10. Wound, open, hip or thigh, s/p I&D left hip wound - Chronic left hip wound-with ESBL E coli and E Faecalis growing from the wound. - continue dapto and meropenem as per ID for minimum 8 weeks -pain control with oxycodone, lyrica, flexeril and lidoderm patch - VNS referral for wound vac management - PICC line ordered for longerm abx administration - pt can be d/felisa home once PICC line placed hypertension: Well controlled control BP meds on Hold Depression - Continue Cymbalta, - Valium as needed. Anemia (Acute blood loss anemia- s/p 4 unit PRBC) -trend H/H -Oral iron daily Urinary incontinence: - Cont oxybutynin PPX: - PPI daily - bowel regimen with senna, miralax and colace -simethicone PRN gas pain DISPO: Full code Problem List - Problems (1) Prophylactic measure Code(s): Z29.9 - ENCOUNTER FOR PROPHYLACTIC MEASURES, UNSPECIFIED (2) Depression Code(s): F32.9 - MAJOR DEPRESSIVE DISORDER, SINGLE EPISODE, UNSPECIFIED (3) HTN (hypertension) Code(s): I10 - ESSENTIAL (PRIMARY) HYPERTENSION (4) Chronic pain Code(s): G89.29 - OTHER CHRONIC PAIN (5) Wound, open, hip or thigh Code(s): HUO1512 - (6) Anemia Code(s): D64.9 - ANEMIA, UNSPECIFIED Visit type - Emergency Visit Emergency Visit: No - New Patient This patient is new to me today: No - Critical Care Critical Care patient: No - Discharge Referral Referred to [facility] Med P.C.: No
[2018-12-18] MEDS: LIDOCAINE PATCH REMOVAL MC SCH (23:40)
[2018-12-18] MEDS: SODIUM CHLORIDE 1,000 ML IV SCH (23:40)
[2018-12-19] MEDS: oxyCODONE HCL 5 MG TABLET PO PRN ×4 (04:43→23:07)
[2018-12-19] MEDS: DOCUSATE SODIUM 100 MG CAPSULE (FP) PO SCH ×3 (05:09→21:54)
[2018-12-19] MEDS: PREGABALIN 100 MG CAPSULE PO SCH ×3 (05:09→21:54)
[2018-12-19] MEDS: OXYBUTYNIN CHLORIDE 5 MG TABLET PO SCH ×3 (05:09→21:54)
[2018-12-19 06:44] LABS: HEMATOCRIT 27.2 % (32.4-45.2); MCH 24.7 pg (25.7-33.7); MEAN CELL VOLUME 74.7 fl (80-96); MEAN PLT VOLUME 7.1 fl (7.5-11.1); PLATELET COUNT 399 K/MM3 (134-434); RBC 3.64 M/mm3 (3.60-5.2); RDW 20.5 % (11.6-15.6); WHITE BLOOD COUNT 8.3 K/mm3 (4.0-10.0)
[2018-12-19 07:51] LABS: ALBUMIN 1.8 g/dl (3.4-5.0); ALK PHOS 83 U/L (45-117); ANION GAP 7 MMOL/L (8-16); BILIRUBIN,TOTAL < 0.1 mg/dL (0.2-1); BLOOD UREA NITROGEN 16 mg/dL (7-18); CALCIUM 7.7 mg/dL (8.5-10.1); CHLORIDE 106 mmol/L (98-107); CO2 26 mmol/L (21-32); CREATININE 0.7 mg/dL (0.55-1.3); GLUCOSE,RANDOM 100 mg/dL (74-106); MAGNESIUM 2.2 mg/dL (1.8-2.4); SGOT/AST 12 U/L (15-37); SGPT/ALT 11 U/L (13-61); SODIUM 138 mmol/L (136-145); TOT PROT 5.6 g/dl (6.4-8.2)
[2018-12-19] MEDS ORDERED: PT OWN MED DRAWER 7, Y5N ONE (09:23)
[2018-12-19] MEDS: FERROUS SO4 325 MG TABLET (FP) PO SCH (09:26)
[2018-12-19] MEDS: PANTOPRAZOLE 40 MG TABLET (FP) PO SCH (09:27)
[2018-12-19] MEDS: CYCLOBENZAPRINE HCL 5 MG TABLET PO SCH (09:27)
[2018-12-19] MEDS: oxyCODONE HCL 80 MG SUSTAINED ACTING TABLET PO SCH ×2 (09:27→21:54)
[2018-12-19] MEDS: ASPIRIN 325 MG ENTERIC COATED TABLET (FP) PO SCH (09:27)
[2018-12-19] MEDS: DULoxetine HCL 30 MG CAPSULE.DR (FP) PO SCH ×2 (09:27→21:54)
[2018-12-19] MEDS: LIDOCAINE 5% TOPICAL PATCH TP SCH (09:28)
[2018-12-19] MEDS: ERTAPENEM SODIUM 1 GM in SODIUM CHLORIDE 50 ML IVPB SCH (11:44)
[2018-12-19] MEDS: POLYETHYLENE GLYCOL 3350 119 GM BTL PO SCH (11:54)
--- NOTE | 2018-12-19 12:25 | PN ---
Physical Exam: SUBJECTIVE: Patient seen and examined at the bedside. in no acute distress. she is agreeing to leave to [place] for continued wound care. OBJECTIVE: Vital Signs Period Temp Pulse Resp BP Sys/Vargas Pulse Ox Last 24 Hr 98.1 F-99 F 93-121 20-20 104-147/51-76 100 Laboratory Results - last 24 hr 12/19/18 12/19/18 12/19/18 06:30 06:30 06:30 WBC 8.3 RBC 3.64 Hgb 9.0 L Hct 27.2 L MCV 74.7 L MCH 24.7 L MCHC 33.0 RDW 20.5 H Plt Count 399 MPV 7.1 L ESR 108 H Sodium 138 Potassium 4.0 Chloride 106 Carbon Dioxide 26 Anion Gap 7 L BUN 16 Creatinine 0.7 Creat Clearance w eGFR 84.51 Random Glucose 100 Calcium 7.7 L Magnesium 2.2 Total Bilirubin < 0.1 L AST 12 L ALT 11 L Alkaline Phosphatase 83 C-Reactive Protein 8.8 H Total Protein 5.6 L Albumin 1.8 L Active Medications Generic Name Dose Route Start Last Admin Trade Name Freq PRN Reason Stop Dose Admin Al Hydroxide/Mg Hydroxide 30 ml 12/17/18 17:02 Mylanta Oral Suspension - PO Q6HPO PRN DYSPEPSIA Aspirin 325 mg 12/18/18 10:00 12/19/18 09:27 Ecotrin - PO 325 mg DAILY ELKE Administration Cyclobenzaprine HCl 5 mg 12/18/18 10:00 12/19/18 09:27 Cyclobenzaprine Hcl PO 5 mg DAILY ELKE Administration Docusate Sodium 100 mg 12/17/18 22:00 12/19/18 05:09 Colace - PO 100 mg TID ELKE Administration Duloxetine HCl 30 mg 12/17/18 22:00 12/19/18 09:27 Cymbalta - PO 30 mg BID ELKE Administration Ferrous Sulfate 325 mg 12/17/18 17:30 12/19/18 09:26 Feosol - PO 325 mg BIDWM ELKE Administration Ertapenem 1 gm/ Sodium 50 mls @ 100 mls/hr 12/18/18 10:00 12/19/18 11:44 Chloride IVPB 100 mls/hr DAILY ELKE Administration Sodium Chloride 1,000 mls @ 100 mls/hr 12/17/18 17:02 12/18/18 23:40 Normal Saline - IV Not Given ASDIR ELKE Daptomycin 500 mg/ Sodium 50 mls @ 50 mls/hr 12/19/18 17:30 Chloride IVPB Q24H [facility] Protocol Lidocaine 1 patch 12/18/18 10:00 12/19/18 09:28 Lidoderm Patch - TP 1 patch DAILY ELKE Administration Miscellaneous 1 each 12/17/18 22:00 12/18/18 23:40 Lidoderm Patch Removal MC 1 each DAILY@2200 ELKE Administration Ondansetron HCl 4 mg 12/17/18 17:02 Zofran Injection IVPUSH Q6H PRN NAUSEA AND/OR VOMITING Oxybutynin Chloride 5 mg 12/17/18 22:00 12/19/18 05:09 Ditropan - PO 5 mg TID ELKE Administration Oxycodone HCl 80 mg 12/17/18 22:00 12/19/18 09:27 Oxycontin - PO 80 mg BID ELKE Administration Oxycodone HCl 30 mg 12/17/18 20:52 12/19/18 11:52 Roxicodone - PO 30 mg Q6H PRN Administration PAIN LEVEL 7 - 10 Pantoprazole Sodium 40 mg 12/18/18 10:00 12/19/18 09:27 Protonix - PO 40 mg DAILY ELKE Administration Polyethylene Glycol 17 gm 12/18/18 10:00 12/19/18 11:54 Miralax (For Daily Use) - PO Not Given DAILY ELKE Pregabalin 100 mg 12/17/18 22:00 12/19/18 05:09 Lyrica - PO 100 mg TID ELKE Administration Senna 2 tab 12/17/18 17:02 Senna - PO HS PRN CONSTIPATION Simethicone 40 mg 12/17/18 17:02 Mylicon Liquid - PO Q6H PRN INDIGESTION ASSESSMENT/PLAN:
--- NOTE | 2018-12-19 14:38 | PN ---
Progress Note (short form) - Note Progress Note: s/p washout Vital Signs Period Temp Pulse Resp BP Sys/Vargas Pulse Ox Last 24 Hr 98.1 F-99 F 93-121 20-20 104-152/51-76 100-100 cor-rrr lungs clear abd soft,nt ext vac in place CBC, BMP 12/19/18 06:30 12/19/18 06:30 Microbiology 12/17/18 16:00 Hip - Left Gram Stain - Final 12/17/18 16:00 Hip - Left Wound Culture - Preliminary Gram Negative Olvin Group D Strep Or Entero Coccus 12/14/18 14:45 Blood - Peripheral Venous Blood Culture - Preliminary NO GROWTH OBTAINED AFTER 96 HOURS, INCUBATION TO CONTINUE FOR 1 DAYS. 12/10/18 20:57 Hip - Left Gram Stain - Final 12/10/18 20:57 Hip - Left Wound Culture - Final Enterococcus Faecalis Escherichia Coli Vanco Resistant Enterococcus 12/10/18 21:15 Tissue-Other Gram Stain - Final 12/10/18 21:15 Tissue-Other Tissue Culture - Final Escherichia Coli Esbl Drawer In [place] Vr Ec Faecalis Diphtheroid/Corynebacterium 12/10/18 21:15 Tissue-Other Anaerobic Culture - Final NO ANAEROBES WERE ISOLATED 12/07/18 21:00 Hip - Left Gram Stain - Final 12/07/18 21:00 Hip - Left Wound Culture - Final Escherichia Coli Esbl Drawer In [place] Enterococcus Faecalis 12/01/18 10:45 Blood - Peripheral Venous Blood Culture - Final NO GROWTH AFTER 5 DAYS INCUBATION 12/01/18 10:50 Blood - Peripheral Venous Blood Culture - Final NO GROWTH AFTER 5 DAYS INCUBATION 12/03/18 12:35 Hip - Left Gram Stain - Final 12/03/18 12:35 Hip - Left Wound Culture - Final Staphylococcus Coagulase Neg Non Lactose Fermenting Gnb Group D Strep Or Entero Coccus 12/03/18 12:35 Hip - Left Gram Stain - Final 12/03/18 12:35 Hip - Left Wound Culture - Final Staphylococcus Coagulase Neg Escherichia Coli Enterococcus Faecalis 11/29/18 07:00 Blood - Peripheral Venous Blood Culture - Final NO GROWTH AFTER 5 DAYS INCUBATION 11/29/18 06:30 Blood - Peripheral Venous Blood Culture - Final NO GROWTH AFTER 5 DAYS INCUBATION 11/30/18 18:00 Urine - Urine - Catheterized Urine Culture - Final NO GROWTH OBTAINED 11/26/18 23:00 Hip - Left Gram Stain - Final 11/26/18 23:00 Hip - Left Wound Culture - Final Escherichia Coli Enterococcus Faecalis 11/26/18 23:00 Hip - Left Gram Stain - Final 11/26/18 23:00 Hip - Left Wound Culture - Final Escherichia Coli Enterococcus Faecalis 11/23/18 13:58 Abscess Gram Stain - Final 11/23/18 13:58 Abscess Wound Culture - Final Non Lactose Fermenting Gnb Group D Strep Or Entero Coccus Diphtheroid/Corynebacterium 11/23/18 13:55 Abscess Gram Stain - Final 11/23/18 13:55 Abscess Wound Culture - Final Escherichia Coli Enterococcus Faecalis Diphtheroid/Corynebacterium 11/19/18 15:00 Hip - Left Gram Stain - Final 11/19/18 15:00 Hip - Left Wound Culture - Final Staphylococcus Coagulase Neg Diphtheroid/Corynebacterium Group D Strep Or Entero Coccus Escherichia Coli 11/19/18 15:00 Hip - Left Gram Stain - Final 11/19/18 15:00 Hip - Left Wound Culture - Final Staphylococcus Coagulase Neg Diphtheroid/Corynebacterium Gamma Hemolytic Streptococcus Escherichia Coli a/p fevers trending down chronically infected hip hardware now out would target treatment to operative pathogens including ecoli esbl, VREF now that hardware is out- this is finally a chance for cure if there is no remaining hardware continue daptomycin and ertapenem esr, crp d/w ortho- plan for picc line and iv antiiboitcs daptomycin and ertapenem- minimum 8 weeks, will need to follow esr/crp to determine duration of antibiotic treatment- generally treat until esr/crp normalize check cpk suggest transfer her care to [place] ID if she goes home with iv antibioitcs as it will not be possible for us to follow her here as she lives in the [place] continue contact isolation
--- NOTE | 2018-12-19 15:27 | DS ---
"Physical Exam: SUBJECTIVE: Patient seen and examined at the bedside. for discharge to [place] today for wound care. OBJECTIVE: discharge to [facility] Vital Signs Period Temp Pulse Resp BP Sys/Vargas Pulse Ox Last 24 Hr 98.1 F-99 F 93-121 20-20 110-152/51-76 100-100 PHYSICAL EXAM GENERAL: The patient is awake, alert, and fully oriented, in no acute distress. HEAD: Normal with no signs of trauma. EYES: PERRL, conjunctiva clear. ENT: nares patent, oropharynx clear without exudates, + poor dentition, moist mucous membranes. NECK: Trachea midline, full range of motion, supple. LUNGS: Breath sounds equal, clear to auscultation bilaterally, no wheezes, no crackles, no accessory muscle use. HEART: Regular rate and rhythm, S1, S2 without murmur, rub or gallop. ABDOMEN: Soft, nontender, non-distended, +obese abdomen, normoactive bowel sounds, no guarding, EXTREMITIES: 2+ pulses, warm, well-perfused, no edema. Left hip: clear dsg with wound vac NEUROLOGICAL: WC BOUND Normal speech, PSYCH: Normal mood, normal affect. SKIN: Warm, dry, normal turgor, LABS Laboratory Results - last 24 hr 12/19/18 12/19/18 12/19/18 06:30 06:30 06:30 WBC 8.3 RBC 3.64 Hgb 9.0 L Hct 27.2 L MCV 74.7 L MCH 24.7 L MCHC 33.0 RDW 20.5 H Plt Count 399 MPV 7.1 L ESR 108 H Sodium 138 Potassium 4.0 Chloride 106 Carbon Dioxide 26 Anion Gap 7 L BUN 16 Creatinine 0.7 Creat Clearance w eGFR 84.51 Random Glucose 100 Calcium 7.7 L Magnesium 2.2 Total Bilirubin < 0.1 L AST 12 L ALT 11 L Alkaline Phosphatase 83 C-Reactive Protein 8.8 H Total Protein 5.6 L Albumin 1.8 L HOSPITAL COURSE: Date of Admission:11/19/18 Date of Discharge: 12/19/18 Patient is a 63 year old female with a significant past medical history of hypertension, anxiety, depression, chronic pain and chronic left hip left wound. who has undergone left hip debridement of soft tissue, muscle, bone, VAC application on 11/19, subsequently multiple I and D wound washes , underwent s/p osteotomy left femur, removal of hardware (explant femoral component),- I&D left hip wound; partial removal of cement mantle; exchange left hip wound vac on 12/10. Hospital course by problem list. Surgery: Wound, open, hip or thigh, s/p I&D left hip wound patient is a chronic left hip wound with ESBL EColi and E Faecalis growing from the wound. plan: continue Daptomycin 500mg daily and Ertapenem 1 gram daily as per ID for minimum 8 weeks via tunneled catheter placed today. Will need CBC, CMP, ESR/CRP monitored during therapy. Pain management with oxycodone, lyrica, flexeril and lidoderm patch Cardiology: hypertension: Well controlled control. continue lisinopril. Psyche: Depression Continue Cymbalta and Valium as needed. Anemia Has had 4 units of PRBC during hosptital stay. Will need close monitoring of CBC. continue Iron therapy daily. : Urinary incontinence: Continue oxybutynin Patient for discharge to [place] for continuation of wound care and IV antibiotics for a minimum of 8 weeks. full code Minutes to complete discharge: 60 Discharge Summary Reason For Visit: LOOSENING OF INTERNAL LEFT HIP Current Active Problems Anemia (Acute) Chronic pain (Acute) Depression (Acute) HTN (hypertension) (Acute) Low grade fever (Acute) Prophylactic measure (Acute) Sepsis (Acute) Thrombocytosis (Acute) Urinary incontinence (Acute) Wound, open, hip or thigh (Acute) Condition: Guarded - Instructions Diet, Activity, Other Instructions: Dr. Albert Moya's Discharge Instructions Post Operative Instructions Physical activity Resume your normal everyday activity as tolerated no heavy lifting or exercise until seen by your surgeon. You may walk unlimited amounts of and climb stairs. You may resume driving the car when you feel safe and comfortable behind the wheel. Wound care Continue wound vac as per Dr. Moya. Continue with the IV antibiotics Daptomycin and Ertapenem for a minimum of 8 more weeks. You will need to have your blood drawn to assure that your ESR/CRP is improving. Further, please continue to monitor your CBC and CMP at the facility to assure that your counts remain stable. Chronic left hip wound with ESBL EColi and E Faecalis growing from the wond Continue Daptomycin 500mg q 24 hours and Ertapenem 1 gram daily per ID for a minimum of 8 weeks Pain control with Oxycodone, Lyrica, Flexeril and Lidoderm patches Patient had a tunned catheter placed on 12/19/2018. Diet There are no dietary restrictions. Eat healthy, high-fiber foods. Drink 6 to 8 glasses of liquid each day. This will assist in keeping your bowels are regular. Pain management You may take Tylenol or acetaminophen. Any pain prescription medication ordered should be taken as prescribed for moderate to severe pain. Call Dr. Moya for any of the following: Severe pain not relieved by medication Fever of 101 or higher Excessive bleeding or drainage on dressing Call the office for a post operative appointment in 7 - 10 days. [facility] BUSINESS PROCESS ARCHITECT Checked prior too escribe of narcotics for pain management This report was requested by: Michael Goncalves | Reference #: [id number] 11/02/2018 Oxycontin er 80 mg tablet / 90 tablets / Albert Moya MS, MD Referrals: Sloane Perales MD [Staff Physician] - Albert Moya MD [Staff Physician] - Disposition: LONG-TERM FACILITY - Home Medications Comprehensive Discharge Medication List: Ambulatory Orders Diazepam [Valium] 5 mg PO HS PRN 08/24/18 Duloxetine HCl [Cymbalta] 30 mg PO BID 08/24/18 Lisinopril 10 mg PO DAILY 08/24/18 Omeprazole 40 mg PO DAILY 08/24/18 Oxybutynin Chloride 5 mg PO TID 08/24/18 Oxycodone HCl 30 mg PO ASDIR PRN 08/24/18 Pregabalin [Lyrica] 100 mg PO TID 08/24/18 oxyCODONE SR [Oxycontin] 80 mg PO TID 08/24/18 Aspirin [Aspirin EC] 325 mg PO DAILY 09/12/18 Cyclobenzaprine HCl 5 mg PO DAILY tablet 12/19/18 Daptomycin [Cubicin (Restricted To Id) -] 500 mg IVPB Q24H vial 12/19/18 Docusate Sodium [Colace -] 100 mg PO TID capsule 12/19/18 Ertapenem Sodium [Invanz -] 1 gm IVPB DAILY vial 12/19/18 Ferrous Sulfate [Feosol] 325 mg PO BIDWM ud 12/19/18 Lidocaine 5% Patch [Lidoderm -] 1 patch TP DAILY patch 12/19/18 Mag Hydrox/Al Hydrox/Simeth [Mylanta Oral Suspension -] 30 ml PO Q6HPO PRN cup 12/19/18 Polyethylene Glycol 3350 [Miralax 119 gm Btl -] 17 gm PO DAILY bottle 12/19/18 Sennosides [Senna -] 2 tab PO HS PRN tablet 12/19/18 Simethicone Liquid [Mylicon Liquid -] 40 mg PO Q6H PRN ml 12/19/18 This patient is new to me today: No Emergency Visit: Yes ED Registration Date: 11/19/18 Care time: The patient presented to the Emergency Department on the above date and was hospitalized for further evaluation of their emergent condition. Critical Care patient: No - Discharge Referral [facility]erred to [facility] Med P.C.: No"
[2018-12-19] MEDS: DAPTOMYCIN 500 MG in SODIUM CHLORIDE 50 ML IVPB SCH (17:33)
[2018-12-19] MEDS: LIDOCAINE PATCH REMOVAL MC SCH (21:55)
[2018-12-20] MEDS: OXYBUTYNIN CHLORIDE 5 MG TABLET PO SCH ×4 (06:12→21:10)
[2018-12-20] MEDS: DOCUSATE SODIUM 100 MG CAPSULE (FP) PO SCH ×4 (06:12→21:10)
[2018-12-20] MEDS: PREGABALIN 100 MG CAPSULE PO SCH ×4 (06:12→21:10)
[2018-12-20] MEDS: FERROUS SO4 325 MG TABLET (FP) PO SCH ×3 (07:13→18:15)
[2018-12-20] MEDS: SODIUM CHLORIDE 1,000 ML IV SCH ×4 (07:13→18:14)
[2018-12-20] MEDS ORDERED: PT OWN MED DRAWER 7, Y5N ONE ×2 (09:45→16:47)
[2018-12-20] MEDS: PANTOPRAZOLE 40 MG TABLET (FP) PO SCH (09:48)
[2018-12-20] MEDS: LIDOCAINE 5% TOPICAL PATCH TP SCH (09:48)
[2018-12-20] MEDS: ASPIRIN 325 MG ENTERIC COATED TABLET (FP) PO SCH (09:48)
[2018-12-20] MEDS: CYCLOBENZAPRINE HCL 5 MG TABLET PO SCH (09:49)
[2018-12-20] MEDS: oxyCODONE HCL 5 MG TABLET PO PRN ×3 (09:49→19:04)
[2018-12-20] MEDS: DULoxetine HCL 30 MG CAPSULE.DR (FP) PO SCH ×2 (09:51→21:09)
[2018-12-20] MEDS: ERTAPENEM SODIUM 1 GM in SODIUM CHLORIDE 50 ML IVPB SCH (09:51)
[2018-12-20] MEDS: POLYETHYLENE GLYCOL 3350 119 GM BTL PO SCH (09:51)
--- NOTE | 2018-12-20 11:07 | PN ---
Physical Exam: SUBJECTIVE: Patient seen and examined at the bedside. she is agreeing to go to [facility]. awaiting final approval from [facility] once documentation is approved. OBJECTIVE: Vital Signs Period Temp Pulse Resp BP Sys/Vargas Pulse Ox Last 24 Hr 98.1 F-98.8 F 92-109 18-20 114-144/69-86 100 GENERAL: The patient is awake, alert, and fully oriented, in no acute distress. HEAD: Normal with no signs of trauma. EYES: PERRL, conjunctiva clear. ENT: nares patent, oropharynx clear without exudates, + poor dentition, moist mucous membranes. NECK: Trachea midline, full range of motion, supple. LUNGS: Breath sounds equal, clear to auscultation bilaterally, no wheezes, no crackles, no accessory muscle use. HEART: Regular rate and rhythm, S1, S2 without murmur, rub or gallop. ABDOMEN: Soft, nontender, non-distended, +obese abdomen, normoactive bowel sounds, no guarding, EXTREMITIES: 2+ pulses, warm, well-perfused, no edema. Left hip: clear dsg with wound vac NEUROLOGICAL: WC BOUND Normal speech, PSYCH: Normal mood, normal affect. SKIN: Warm, dry, normal turgor, Laboratory Results - last 24 hr 12/19/18 21:40 Creatine Kinase 21 L Active Medications Generic Name Dose Route Start Last Admin Trade Name Freq PRN Reason Stop Dose Admin Al Hydroxide/Mg Hydroxide 30 ml 12/17/18 17:02 Mylanta Oral Suspension - PO Q6HPO PRN DYSPEPSIA Aspirin 325 mg 12/18/18 10:00 12/20/18 09:48 Ecotrin - PO 325 mg DAILY ELKE Administration Cyclobenzaprine HCl 5 mg 12/18/18 10:00 12/20/18 09:49 Cyclobenzaprine Hcl PO 5 mg DAILY ELKE Administration Docusate Sodium 100 mg 12/17/18 22:00 12/20/18 06:12 Colace - PO 100 mg TID ELKE Administration Duloxetine HCl 30 mg 12/17/18 22:00 12/20/18 09:51 Cymbalta - PO 30 mg BID ELKE Administration Ferrous Sulfate 325 mg 12/17/18 17:30 12/20/18 08:43 Feosol - PO 325 mg BIDWM ELKE Administration Ertapenem 1 gm/ Sodium 50 mls @ 100 mls/hr 12/18/18 10:00 12/20/18 09:51 Chloride IVPB 100 mls/hr DAILY ELKE Administration Sodium Chloride 1,000 mls @ 100 mls/hr 12/17/18 17:02 12/20/18 10:01 Normal Saline - IV 100 mls/hr ASDIR ELKE Administration Daptomycin 500 mg/ Sodium 50 mls @ 50 mls/hr 12/19/18 17:30 12/19/18 17:33 Chloride IVPB 50 mls/hr Q24H ELKE Administration Protocol Lidocaine 1 patch 12/18/18 10:00 12/20/18 09:48 Lidoderm Patch - TP 1 patch DAILY ELKE Administration Miscellaneous 1 each 12/17/18 22:00 12/19/18 21:55 Lidoderm Patch Removal MC 1 each DAILY@2200 ELKE Administration Ondansetron HCl 4 mg 12/17/18 17:02 Zofran Injection IVPUSH Q6H PRN NAUSEA AND/OR VOMITING Oxybutynin Chloride 5 mg 12/17/18 22:00 12/20/18 06:12 Ditropan - PO 5 mg TID ELKE Administration Oxycodone HCl 80 mg 12/17/18 22:00 12/19/18 21:54 Oxycontin - PO 80 mg BID ELKE Administration Oxycodone HCl 30 mg 12/20/18 10:46 Roxicodone - PO Q4H PRN PAIN LEVEL 7 - 10 Pantoprazole Sodium 40 mg 12/18/18 10:00 12/20/18 09:48 Protonix - PO 40 mg DAILY ELKE Administration Polyethylene Glycol 17 gm 12/18/18 10:00 12/20/18 09:51 Miralax (For Daily Use) - PO Not Given DAILY ELKE Pregabalin 100 mg 12/17/18 22:00 12/20/18 06:12 Lyrica - PO 100 mg TID ELKE Administration Senna 2 tab 12/17/18 17:02 Senna - PO HS PRN CONSTIPATION Simethicone 40 mg 12/17/18 17:02 Mylicon Liquid - PO Q6H PRN INDIGESTION ASSESSMENT/PLAN: Patient is a 63 year old female with a significant past medical history of hypertension, anxiety, depression, chronic pain and chronic left hip left wound. who has undergone left hip debridement of soft tissue, muscle, bone, VAC application on 11/19, subsequently multiple I and D wound washes , underwent s/p osteotomy left femur, removal of hardware (explant femoral component),- I&D left hip wound; partial removal of cement mantle; exchange left hip wound vac on 12/10. No clincal changes since yesterday, patient is tolerating antibiotics. She is in agreement to go to [facility] for wound care. Patient waiting for [facility] acceptance, likely today or tomorrow. -On daptomycin and ertapenem -wound vac and pain management -monitor drain output -surgery following fen tolerating po monitor electrolytes low salt diet prophy full dose asa 325.mg and SCDs Visit type - Emergency Visit Emergency Visit: Yes ED Registration Date: 11/19/18 Care time: The patient presented to the Emergency Department on the above date and was hospitalized for further evaluation of their emergent condition. - New Patient This patient is new to me today: No - Critical Care Critical Care patient: No - Discharge Referral Referred to [facility] Med P.C.: No
[2018-12-20] MEDS: oxyCODONE HCL 80 MG SUSTAINED ACTING TABLET PO SCH ×2 (11:21→21:11)
[2018-12-20] MEDS: DAPTOMYCIN 500 MG in SODIUM CHLORIDE 50 ML IVPB SCH (18:14)
[2018-12-20] MEDS: LIDOCAINE PATCH REMOVAL MC SCH (21:10)
[2018-12-21] MEDS: SODIUM CHLORIDE 1,000 ML IV SCH ×2 (05:00→19:00)
[2018-12-21] MEDS: PREGABALIN 100 MG CAPSULE PO SCH ×3 (05:40→21:53)
[2018-12-21] MEDS: OXYBUTYNIN CHLORIDE 5 MG TABLET PO SCH ×3 (05:41→21:53)
[2018-12-21] MEDS: DOCUSATE SODIUM 100 MG CAPSULE (FP) PO SCH ×3 (05:41→21:53)
[2018-12-21] MEDS: FERROUS SO4 325 MG TABLET (FP) PO SCH ×2 (08:36→17:04)
[2018-12-21] MEDS: oxyCODONE HCL 5 MG TABLET PO PRN ×4 (08:36→21:53)
[2018-12-21] MEDS ORDERED: PT OWN MED DRAWER 7, Y5N ONE ×2 (10:24→16:53)
[2018-12-21] MEDS: LIDOCAINE 5% TOPICAL PATCH TP SCH (10:33)
[2018-12-21] MEDS: ERTAPENEM SODIUM 1 GM in SODIUM CHLORIDE 50 ML IVPB SCH (10:33)
[2018-12-21] MEDS: DULoxetine HCL 30 MG CAPSULE.DR (FP) PO SCH ×2 (10:33→21:53)
[2018-12-21] MEDS: PANTOPRAZOLE 40 MG TABLET (FP) PO SCH (10:33)
[2018-12-21] MEDS: CYCLOBENZAPRINE HCL 5 MG TABLET PO SCH (10:34)
[2018-12-21] MEDS: oxyCODONE HCL 80 MG SUSTAINED ACTING TABLET PO SCH ×2 (10:34→23:00)
[2018-12-21] MEDS: ASPIRIN 325 MG ENTERIC COATED TABLET (FP) PO SCH (10:34)
[2018-12-21] MEDS: POLYETHYLENE GLYCOL 3350 119 GM BTL PO SCH (10:35)
--- NOTE | 2018-12-21 13:23 | PN ---
Physical Exam: SUBJECTIVE: Patient seen and examined OBJECTIVE: Vital Signs Period Temp Pulse Resp BP Sys/Vargas Pulse Ox Last 24 Hr 98.2 F-98.8 F 95-111 18-20 100-141/61-77 99 GENERAL: The patient is awake, alert, and fully oriented, in no acute distress. HEAD: Normal with no signs of trauma. EYES: PERRL, conjunctiva clear. ENT: nares patent, oropharynx clear without exudates, + poor dentition, moist mucous membranes. NECK: Trachea midline, full range of motion, supple. LUNGS: Breath sounds equal, clear to auscultation bilaterally, no wheezes, no crackles, no accessory muscle use. HEART: Regular rate and rhythm, S1, S2 without murmur, rub or gallop. ABDOMEN: Soft, nontender, non-distended, +obese abdomen, normoactive bowel sounds, no guarding, EXTREMITIES: 2+ pulses, warm, well-perfused, no edema. Left hip: clear dsg with wound vac NEUROLOGICAL: WC BOUND Normal speech, PSYCH: Normal mood, normal affect. SKIN: Warm, dry, normal turgor, Laboratory Results - last 24 hr 12/17/18 23:28 Blood Type A POSITIVE Antibody Screen Positive H Antibody Identification Non-specific Crossmatch See Detail Active Medications Generic Name Dose Route Start Last Admin Trade Name Freq PRN Reason Stop Dose Admin Al Hydroxide/Mg Hydroxide 30 ml 12/17/18 17:02 Mylanta Oral Suspension - PO Q6HPO PRN DYSPEPSIA Aspirin 325 mg 12/18/18 10:00 12/21/18 10:34 Ecotrin - PO 325 mg DAILY ELKE Administration Cyclobenzaprine HCl 5 mg 12/18/18 10:00 12/21/18 10:34 Cyclobenzaprine Hcl PO 5 mg DAILY ELKE Administration Docusate Sodium 100 mg 12/17/18 22:00 12/21/18 05:41 Colace - PO 100 mg TID ELKE Administration Duloxetine HCl 30 mg 12/17/18 22:00 12/21/18 10:33 Cymbalta - PO 30 mg BID EKLE Administration Ferrous Sulfate 325 mg 12/17/18 17:30 12/21/18 08:36 Feosol - PO 325 mg BIDWM ELKE Administration Ertapenem 1 gm/ Sodium 50 mls @ 100 mls/hr 12/18/18 10:00 12/21/18 10:33 Chloride IVPB 100 mls/hr DAILY ELKE Administration Sodium Chloride 1,000 mls @ 100 mls/hr 12/17/18 17:02 12/21/18 05:00 Normal Saline - IV 100 mls/hr ASDIR ELKE Administration Daptomycin 500 mg/ Sodium 50 mls @ 50 mls/hr 12/19/18 17:30 12/20/18 18:14 Chloride IVPB 50 mls/hr Q24H ELKE Administration Protocol Lidocaine 1 patch 12/18/18 10:00 12/21/18 10:33 Lidoderm Patch - TP 1 patch DAILY ELKE Administration Miscellaneous 1 each 12/17/18 22:00 12/20/18 21:10 Lidoderm Patch Removal MC 1 each DAILY@2200 ELKE Administration Ondansetron HCl 4 mg 12/17/18 17:02 Zofran Injection IVPUSH Q6H PRN NAUSEA AND/OR VOMITING Oxybutynin Chloride 5 mg 12/17/18 22:00 12/21/18 05:41 Ditropan - PO 5 mg TID ELKE Administration Oxycodone HCl 80 mg 12/17/18 22:00 12/21/18 10:34 Oxycontin - PO 80 mg BID ELKE Administration Oxycodone HCl 30 mg 12/20/18 10:46 12/21/18 13:00 Roxicodone - PO 30 mg Q4H PRN Administration PAIN LEVEL 7 - 10 Pantoprazole Sodium 40 mg 12/18/18 10:00 12/21/18 10:33 Protonix - PO 40 mg DAILY ELKE Administration Polyethylene Glycol 17 gm 12/18/18 10:00 12/21/18 10:35 Miralax (For Daily Use) - PO Not Given DAILY ELKE Pregabalin 100 mg 12/17/18 22:00 12/21/18 05:40 Lyrica - PO 100 mg TID ELKE Administration Senna 2 tab 12/17/18 17:02 Senna - PO HS PRN CONSTIPATION Simethicone 40 mg 12/17/18 17:02 Mylicon Liquid - PO Q6H PRN INDIGESTION ASSESSMENT/PLAN: Patient is a 63 year old female with a significant past medical history of hypertension, anxiety, depression, chronic pain and chronic left hip left wound. who has undergone left hip debridement of soft tissue, muscle, bone, VAC application on 11/19, subsequently multiple I and D wound washes , underwent s/p osteotomy left femur, removal of hardware (explant femoral component),- I&D left hip wound; partial removal of cement mantle; exchange left hip wound vac on 12/10. No clincal changes since yesterday, patient is tolerating antibiotics. She is in agreement to go to [place] [facility] for wound care, however there is an issue with obtaining her wound vac and issue with staffing over the weekend at [place]. -On daptomycin and ertapenem -wound vac and pain management -monitor drain output -surgery following fen tolerating po monitor electrolytes low salt diet prophy full dose asa 325.mg and SCDs Visit type - Emergency Visit Emergency Visit: Yes ED Registration Date: 11/19/18 Care time: The patient presented to the Emergency Department on the above date and was hospitalized for further evaluation of their emergent condition. - New Patient This patient is new to me today: No - Critical Care Critical Care patient: No - Discharge Referral Referred to [facility] Med P.C.: No
[2018-12-21 15:26] VITALS: BMI 24.2
[2018-12-21] MEDS: DAPTOMYCIN 500 MG in SODIUM CHLORIDE 50 ML IVPB SCH (17:06)
--- NOTE | 2018-12-21 17:39 | PN ---
Progress Note (short form) - Note Progress Note: Patient making steady progress Planned admission to [facility] put on hold until Monday. Planned OR washout and hopeful delayed primary closure on Monday and then transfer to [facility] This depends on the state of the tissues If unsuitable for closure a wound vac will be reapplied and use her own machine and canisters from home to take to [facility] on Monday. 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
[2018-12-21] MEDS: LIDOCAINE PATCH REMOVAL MC SCH (21:57)
[2018-12-22] MEDS: oxyCODONE HCL 5 MG TABLET PO PRN ×4 (04:31→20:21)
[2018-12-22] MEDS: OXYBUTYNIN CHLORIDE 5 MG TABLET PO SCH ×3 (06:37→21:50)
[2018-12-22] MEDS: DOCUSATE SODIUM 100 MG CAPSULE (FP) PO SCH ×3 (06:37→21:50)
[2018-12-22] MEDS: PREGABALIN 100 MG CAPSULE PO SCH ×3 (06:37→21:51)
[2018-12-22] MEDS ORDERED: PT OWN MED DRAWER 7, Y5N ONE ×3 (08:54→21:03)
[2018-12-22] MEDS: oxyCODONE HCL 80 MG SUSTAINED ACTING TABLET PO SCH ×2 (09:09→21:50)
[2018-12-22] MEDS: FERROUS SO4 325 MG TABLET (FP) PO SCH ×2 (09:09→18:16)
[2018-12-22] MEDS: ASPIRIN 325 MG ENTERIC COATED TABLET (FP) PO SCH (09:09)
[2018-12-22] MEDS: PANTOPRAZOLE 40 MG TABLET (FP) PO SCH (09:09)
[2018-12-22] MEDS: LIDOCAINE 5% TOPICAL PATCH TP SCH (09:10)
[2018-12-22] MEDS: CYCLOBENZAPRINE HCL 5 MG TABLET PO SCH (09:10)
[2018-12-22] MEDS: DULoxetine HCL 30 MG CAPSULE.DR (FP) PO SCH ×2 (09:10→21:50)
[2018-12-22] MEDS: POLYETHYLENE GLYCOL 3350 119 GM BTL PO SCH (09:11)
[2018-12-22] MEDS: ERTAPENEM SODIUM 1 GM in SODIUM CHLORIDE 50 ML IVPB SCH (09:19)
[2018-12-22 10:39] LABS: BASO % 0.9 % (0-2.0); EOS % 5.4 % (0-4.5); HEMATOCRIT 27.8 % (32.4-45.2); HEMOGLOBIN 9.1 GM/dL (10.7-15.3); LYMPH % 9.6 % (8-40); MCH 24.6 pg (25.7-33.7); MCHC 32.6 g/dl (32.0-36.0); MEAN CELL VOLUME 75.3 fl (80-96); MEAN PLT VOLUME 6.7 fl (7.5-11.1); MONO % 6.2 % (3.8-10.2); NEUT % 77.9 % (42.8-82.8); PLATELET COUNT 471 K/MM3 (134-434); RDW 20.9 % (11.6-15.6)
[2018-12-22 11:16] LABS: ALBUMIN 1.8 g/dl (3.4-5.0); ALK PHOS 92 U/L (45-117); ANION GAP 7 MMOL/L (8-16); BILIRUBIN,TOTAL 0.1 mg/dL (0.2-1); BLOOD UREA NITROGEN 14 mg/dL (7-18); CALCIUM 8.2 mg/dL (8.5-10.1); CHLORIDE 108 mmol/L (98-107); CO2 24 mmol/L (21-32); CREATININE 0.6 mg/dL (0.55-1.3); GLUCOSE,RANDOM 109 mg/dL (74-106); MAGNESIUM 2.3 mg/dL (1.8-2.4); POTASSIUM 4.3 mmol/L (3.5-5.1); SGOT/AST 10 U/L (15-37); SGPT/ALT 12 U/L (13-61); SODIUM 139 mmol/L (136-145); TOT PROT 5.8 g/dl (6.4-8.2)
[2018-12-22 11:45] LABS: ANISOCYTOSIS 1+; MACROCYTOSIS 0; PLATELET ESTIMATE NORMAL
--- NOTE | 2018-12-22 13:26 | PN ---
Physical Exam: SUBJECTIVE: Patient seen and examined at the bedside. OBJECTIVE: for OR on Monday, will make npo monday evening. discharge [facility] likely monday Vital Signs Period Temp Pulse Resp BP Sys/Vargas Pulse Ox Last 24 Hr 98.5 F-99.5 F 105-116 18-20 116-132/58-91 100 GENERAL: The patient is awake, alert, and fully oriented, in no acute distress. HEAD: Normal with no signs of trauma. EYES: PERRL, conjunctiva clear. ENT: nares patent, oropharynx clear without exudates, + poor dentition, moist mucous membranes. NECK: Trachea midline, full range of motion, supple. LUNGS: Breath sounds equal, clear to auscultation bilaterally, no wheezes, no crackles, no accessory muscle use. HEART: Regular rate and rhythm, S1, S2 without murmur, rub or gallop. ABDOMEN: Soft, nontender, non-distended, +obese abdomen, normoactive bowel sounds, no guarding, EXTREMITIES: 2+ pulses, warm, well-perfused, no edema. Left hip: clear dsg with wound vac NEUROLOGICAL: WC BOUND Normal speech, PSYCH: Normal mood, normal affect. SKIN: Warm, dry, normal turgor, Laboratory Results - last 24 hr 12/22/18 12/22/18 10:30 10:30 WBC 9.0 RBC 3.70 Hgb 9.1 L Hct 27.8 L MCV 75.3 L MCH 24.6 L MCHC 32.6 RDW 20.9 H Plt Count 471 H MPV 6.7 L Absolute Neuts (auto) 7.0 Neutrophils % 77.9 Lymphocytes % 9.6 D Monocytes % 6.2 Eosinophils % 5.4 H D Basophils % 0.9 Nucleated RBC % 0 Hypochromia 0 Platelet Estimate Normal Polychromasia 0 Poikilocytosis 0 Anisocytosis 1+ Microcytosis 1+ Macrocytosis 0 Sodium 139 Potassium 4.3 Chloride 108 H Carbon Dioxide 24 Anion Gap 7 L BUN 14 Creatinine 0.6 Creat Clearance w eGFR 100.97 Random Glucose 109 H Calcium 8.2 L Magnesium 2.3 Total Bilirubin 0.1 L AST 10 L ALT 12 L Alkaline Phosphatase 92 Total Protein 5.8 L Albumin 1.8 L Active Medications Generic Name Dose Route Start Last Admin Trade Name Freq PRN Reason Stop Dose Admin Al Hydroxide/Mg Hydroxide 30 ml 12/17/18 17:02 Mylanta Oral Suspension - PO Q6HPO PRN DYSPEPSIA Aspirin 325 mg 12/18/18 10:00 12/22/18 09:09 Ecotrin - PO 325 mg DAILY ELKE Administration Cyclobenzaprine HCl 5 mg 12/18/18 10:00 12/22/18 09:10 Cyclobenzaprine Hcl PO 5 mg DAILY ELKE Administration Docusate Sodium 100 mg 12/17/18 22:00 12/22/18 06:37 Colace - PO 100 mg TID ELKE Administration Duloxetine HCl 30 mg 12/17/18 22:00 12/22/18 09:10 Cymbalta - PO 30 mg BID ELKE Administration Ferrous Sulfate 325 mg 12/17/18 17:30 12/22/18 09:09 Feosol - PO 325 mg BIDWM ELKE Administration Ertapenem 1 gm/ Sodium 50 mls @ 100 mls/hr 12/18/18 10:00 12/22/18 09:19 Chloride IVPB 100 mls/hr DAILY ELKE Administration Sodium Chloride 1,000 mls @ 100 mls/hr 12/17/18 17:02 12/21/18 19:00 Normal Saline - IV Not Given ASDIR ELKE Daptomycin 500 mg/ Sodium 50 mls @ 50 mls/hr 12/19/18 17:30 12/21/18 17:06 Chloride IVPB 50 mls/hr Q24H ELKE Administration Protocol Lidocaine 1 patch 12/18/18 10:00 12/22/18 09:10 Lidoderm Patch - TP 1 patch DAILY ELKE Administration Miscellaneous 1 each 12/17/18 22:00 12/21/18 21:57 Lidoderm Patch Removal MC 1 each DAILY@2200 ELKE Administration Ondansetron HCl 4 mg 12/17/18 17:02 Zofran Injection IVPUSH Q6H PRN NAUSEA AND/OR VOMITING Oxybutynin Chloride 5 mg 12/17/18 22:00 12/22/18 06:37 Ditropan - PO 5 mg TID ELKE Administration Oxycodone HCl 80 mg 12/17/18 22:00 12/22/18 09:09 Oxycontin - PO 80 mg BID ELKE Administration Oxycodone HCl 30 mg 12/20/18 10:46 04/06/19 10:34 Roxicodone - PO 30 mg Q4H PRN Administration PAIN LEVEL 7 - 10 Pantoprazole Sodium 40 mg 12/18/18 10:00 12/22/18 09:09 Protonix - PO 40 mg DAILY ELKE Administration Polyethylene Glycol 17 gm 12/18/18 10:00 12/22/18 09:11 Miralax (For Daily Use) - PO Not Given DAILY ELKE Pregabalin 100 mg 12/17/18 22:00 12/22/18 06:37 Lyrica - PO 100 mg TID ELKE Administration Senna 2 tab 12/17/18 17:02 Senna - PO HS PRN CONSTIPATION Simethicone 40 mg 12/17/18 17:02 Mylicon Liquid - PO Q6H PRN INDIGESTION ASSESSMENT/PLAN: Patient is a 63 year old female with a significant past medical history of hypertension, anxiety, depression, chronic pain and chronic left hip left wound. who has undergone left hip debridement of soft tissue, muscle, bone, VAC application on 11/19, subsequently multiple I and D wound washes , underwent s/p osteotomy left femur, removal of hardware (explant femoral component),- I&D left hip wound; partial removal of cement mantle; exchange left hip wound vac on 12/10. No clincal changes since yesterday, patient is tolerating antibiotics. She is in agreement to go to [facility] for wound care, however there is an issue with obtaining her wound vac and issue with staffing over the weekend at [facility]. Will make her npo Monday for planned OR procedure Monday. -On daptomycin and ertapenem -wound vac and pain management -monitor drain output -surgery following fen tolerating po monitor electrolytes low salt diet prophy full dose asa 325.mg and SCDs Visit type - Emergency Visit Emergency Visit: Yes ED Registration Date: 11/19/18 Care time: The patient presented to the Emergency Department on the above date and was hospitalized for further evaluation of their emergent condition. - New Patient This patient is new to me today: No - Critical Care Critical Care patient: No - Discharge Referral Referred to [facility] Med P.C.: No
[2018-12-22] MEDS: SODIUM CHLORIDE 1,000 ML IV SCH (16:45)
[2018-12-22] MEDS ORDERED: DAPTOMYCIN 500 MG in SODIUM CHLORIDE 100 ML IVPB ONE (17:30)
[2018-12-22] MEDS: LIDOCAINE PATCH REMOVAL MC SCH (21:53)
[2018-12-23] MEDS: oxyCODONE HCL 5 MG TABLET PO PRN ×4 (02:55→20:10)
[2018-12-23] MEDS: OXYBUTYNIN CHLORIDE 5 MG TABLET PO SCH ×3 (05:18→21:39)
[2018-12-23] MEDS: DOCUSATE SODIUM 100 MG CAPSULE (FP) PO SCH ×3 (05:18→21:38)
[2018-12-23] MEDS: PREGABALIN 100 MG CAPSULE PO SCH ×3 (05:18→21:38)
[2018-12-23] MEDS ORDERED: PT OWN MED DRAWER 7, Y5N ONE (09:20)
[2018-12-23] MEDS: DULoxetine HCL 30 MG CAPSULE.DR (FP) PO SCH ×2 (09:28→21:39)
[2018-12-23] MEDS: FERROUS SO4 325 MG TABLET (FP) PO SCH ×2 (09:28→17:51)
[2018-12-23] MEDS: PANTOPRAZOLE 40 MG TABLET (FP) PO SCH (09:29)
[2018-12-23] MEDS: ASPIRIN 325 MG ENTERIC COATED TABLET (FP) PO SCH (09:29)
[2018-12-23] MEDS: ERTAPENEM SODIUM 1 GM in SODIUM CHLORIDE 50 ML IVPB SCH (09:30)
[2018-12-23] MEDS: LIDOCAINE 5% TOPICAL PATCH TP SCH (09:30)
[2018-12-23] MEDS: CYCLOBENZAPRINE HCL 5 MG TABLET PO SCH (09:30)
[2018-12-23] MEDS: POLYETHYLENE GLYCOL 3350 119 GM BTL PO SCH (09:30)
[2018-12-23 10:21] LABS: BASO % 0.9 % (0-2.0); EOS % 5.4 % (0-4.5); HEMATOCRIT 32.7 % (32.4-45.2); HEMOGLOBIN 10.5 GM/dL (10.7-15.3); LYMPH % 15.1 % (8-40); MCH 24.4 pg (25.7-33.7); MCHC 32.3 g/dl (32.0-36.0); MEAN CELL VOLUME 75.8 fl (80-96); MEAN PLT VOLUME 6.9 fl (7.5-11.1); MONO % 4.3 % (3.8-10.2); NEUT % 74.3 % (42.8-82.8); PLATELET COUNT 623 K/MM3 (134-434); RBC 4.31 M/mm3 (3.60-5.2); RDW 20.9 % (11.6-15.6); WHITE BLOOD COUNT 11.8 K/mm3 (4.0-10.0)
[2018-12-23 10:31] LABS: ALBUMIN 2.2 g/dl (3.4-5.0); ALK PHOS 121 U/L (45-117); ANION GAP 6 MMOL/L (8-16); BILIRUBIN,TOTAL 0.1 mg/dL (0.2-1); BLOOD UREA NITROGEN 14 mg/dL (7-18); CALCIUM 8.4 mg/dL (8.5-10.1); CHLORIDE 107 mmol/L (98-107); CO2 24 mmol/L (21-32); CREATININE 0.7 mg/dL (0.55-1.3); GLUCOSE,RANDOM 105 mg/dL (74-106); POTASSIUM 4.3 mmol/L (3.5-5.1); SGOT/AST 11 U/L (15-37); SGPT/ALT 14 U/L (13-61); SODIUM 136 mmol/L (136-145); TOT PROT 7.2 g/dl (6.4-8.2)
[2018-12-23] MEDS: oxyCODONE HCL 80 MG SUSTAINED ACTING TABLET PO SCH ×2 (11:14→21:39)
--- NOTE | 2018-12-23 17:25 | PN ---
Physical Exam: SUBJECTIVE: Patient seen and examined at the bedside. OBJECTIVE: for OR on Monday, will make npo at midnight. discharge [facility] likely monday after washout Vital Signs Period Temp Pulse Resp BP Sys/Vargas Pulse Ox Last 24 Hr 98 F-98.4 F 88-100 18-20 110-114/68-85 98-100 GENERAL: The patient is awake, alert, and fully oriented, in no acute distress. HEAD: Normal with no signs of trauma. EYES: PERRL, conjunctiva clear. ENT: nares patent, oropharynx clear without exudates, + poor dentition, moist mucous membranes. NECK: Trachea midline, full range of motion, supple. LUNGS: Breath sounds equal, clear to auscultation bilaterally, no wheezes, no crackles, no accessory muscle use. HEART: Regular rate and rhythm, S1, S2 without murmur, rub or gallop. ABDOMEN: Soft, nontender, non-distended, +obese abdomen, normoactive bowel sounds, no guarding, EXTREMITIES: 2+ pulses, warm, well-perfused, no edema. Left hip: clear dsg with wound vac NEUROLOGICAL: WC BOUND Normal speech, PSYCH: Normal mood, normal affect. SKIN: Warm, dry, normal turgor, Laboratory Results - last 24 hr 12/23/18 12/23/18 09:30 09:30 WBC 11.8 H RBC 4.31 Hgb 10.5 L Hct 32.7 D MCV 75.8 L MCH 24.4 L MCHC 32.3 RDW 20.9 H Plt Count 623 H D MPV 6.9 L Absolute Neuts (auto) 8.8 H Neutrophils % 74.3 Lymphocytes % 15.1 D Monocytes % 4.3 Eosinophils % 5.4 H Basophils % 0.9 Nucleated RBC % 0 Sodium 136 Potassium 4.3 Chloride 107 Carbon Dioxide 24 Anion Gap 6 L BUN 14 Creatinine 0.7 Creat Clearance w eGFR 84.51 Random Glucose 105 Calcium 8.4 L Total Bilirubin 0.1 L AST 11 L ALT 14 Alkaline Phosphatase 121 H Total Protein 7.2 Albumin 2.2 L Active Medications Generic Name Dose Route Start Last Admin Trade Name Freq PRN Reason Stop Dose Admin Al Hydroxide/Mg Hydroxide 30 ml 12/17/18 17:02 Mylanta Oral Suspension - PO Q6HPO PRN DYSPEPSIA Aspirin 325 mg 12/18/18 10:00 12/23/18 09:29 Ecotrin - PO 325 mg DAILY ELKE Administration Cyclobenzaprine HCl 5 mg 12/18/18 10:00 12/23/18 09:30 Cyclobenzaprine Hcl PO 5 mg DAILY ELKE Administration Docusate Sodium 100 mg 12/17/18 22:00 12/23/18 14:03 Colace - PO 100 mg TID ELKE Administration Duloxetine HCl 30 mg 12/17/18 22:00 12/23/18 09:28 Cymbalta - PO 30 mg BID ELKE Administration Ferrous Sulfate 325 mg 12/17/18 17:30 12/23/18 09:28 Feosol - PO 325 mg BIDWM ELKE Administration Ertapenem 1 gm/ Sodium 50 mls @ 100 mls/hr 12/18/18 10:00 12/23/18 09:30 Chloride IVPB 100 mls/hr DAILY ELKE Administration Sodium Chloride 1,000 mls @ 100 mls/hr 12/17/18 17:02 12/22/18 16:45 Normal Saline - IV Not Given ASDIR ELKE Daptomycin 500 mg/ Sodium 50 mls @ 50 mls/hr 12/23/18 17:30 Chloride IVPB Q24H [facility] Protocol Lidocaine 1 patch 12/18/18 10:00 12/23/18 09:30 Lidoderm Patch - TP 1 patch DAILY ELKE Administration Miscellaneous 1 each 12/17/18 22:00 12/22/18 21:53 Lidoderm Patch Removal MC Not Given DAILY@2200 [facility] Ondansetron HCl 4 mg 12/17/18 17:02 Zofran Injection IVPUSH Q6H PRN NAUSEA AND/OR VOMITING Oxybutynin Chloride 5 mg 12/17/18 22:00 12/23/18 14:03 Ditropan - PO 5 mg TID [facility] Administration Oxycodone HCl 80 mg 12/17/18 22:00 12/23/18 11:14 Oxycontin - PO 80 mg BID ELKE Administration Oxycodone HCl 30 mg 12/20/18 10:46 12/23/18 14:07 Roxicodone - PO 30 mg Q4H PRN Administration PAIN LEVEL 7 - 10 Pantoprazole Sodium 40 mg 12/18/18 10:00 12/23/18 09:29 Protonix - PO 40 mg DAILY ELKE Administration Polyethylene Glycol 17 gm 04/02/19 10:00 12/23/18 09:30 Miralax (For Daily Use) - PO Not Given DAILY ELKE Pregabalin 100 mg 12/17/18 22:00 12/23/18 14:03 Lyrica - PO 100 mg TID ELKE Administration Senna 2 tab 12/17/18 17:02 Senna - PO HS PRN CONSTIPATION Simethicone 40 mg 12/17/18 17:02 Mylicon Liquid - PO Q6H PRN INDIGESTION ASSESSMENT/PLAN: Patient is a 63 year old female with a significant past medical history of hypertension, anxiety, depression, chronic pain and chronic left hip left wound. who has undergone left hip debridement of soft tissue, muscle, bone, VAC application on 11/19, subsequently multiple I and D wound washes , underwent s/p osteotomy left femur, removal of hardware (explant femoral component), I&D left hip wound; partial removal of cement mantle; exchange left hip wound vac on . No clinical changes since yesterday, patient is tolerating antibiotics. She is in agreement to go to [place] for wound care, however there is an issue with obtaining her wound vac and issue with staffing over the weekend at [place]. Will make her npo Monday for planned OR procedure Monday. -On daptomycin and ertapenem -wound vac and pain management -monitor drain output -surgery following Plan: NPO at midnight, for surgical washout tomorrow with Dr. Moya. Discharge tomorrow after procedure to [place] planned. fen tolerating po monitor electrolytes low salt diet prophy full dose asa 325.mg and SCDs Visit type - Emergency Visit Emergency Visit: Yes ED Registration Date: 11/19/18 Care time: The patient presented to the Emergency Department on the above date and was hospitalized for further evaluation of their emergent condition. - New Patient This patient is new to me today: No - Critical Care Critical Care patient: No - Discharge Referral Referred to [facility] Med P.C.: No
[2018-12-23] MEDS ORDERED: DAPTOMYCIN 500 MG in SODIUM CHLORIDE 50 ML IVPB SCH (17:30)
[2018-12-23] MEDS: SODIUM CHLORIDE 1,000 ML IV SCH (17:50)
--- NOTE | 2018-12-23 21:50 | PN ---
Progress Note (short form) - Note Progress Note: NPO at midnight. Pre-op for I&D left hip with possible primary wound closure VS exchange of wound vac tomorrow 12/24/2018. Gelacio Moya MD (Orthopaedic Surgery).
[2018-12-23] MEDS: LIDOCAINE PATCH REMOVAL MC SCH (22:22)
[2018-12-24] MEDS: PREGABALIN 100 MG CAPSULE PO SCH ×3 (06:12→21:40)
[2018-12-24] MEDS: DOCUSATE SODIUM 100 MG CAPSULE (FP) PO SCH ×3 (06:12→21:39)
[2018-12-24] MEDS: OXYBUTYNIN CHLORIDE 5 MG TABLET PO SCH ×3 (06:12→21:40)
[2018-12-24] MEDS: oxyCODONE HCL 5 MG TABLET PO PRN ×5 (06:12→23:39)
[2018-12-24 07:44] LABS: BASO % 0.9 % (0-2.0); EOS % 8.8 % (0-4.5); HEMATOCRIT 31.3 % (32.4-45.2); HEMOGLOBIN 9.9 GM/dL (10.7-15.3); LYMPH % 18.1 % (8-40); MCHC 31.7 g/dl (32.0-36.0); MEAN CELL VOLUME 75.7 fl (80-96); MEAN PLT VOLUME 6.8 fl (7.5-11.1); MONO % 5.5 % (3.8-10.2); NEUT % 66.7 % (42.8-82.8); PLATELET COUNT 539 K/MM3 (134-434); RBC 4.14 M/mm3 (3.60-5.2); RDW 20.6 % (11.6-15.6); WHITE BLOOD COUNT 8.9 K/mm3 (4.0-10.0)
[2018-12-24 08:06] LABS: ALBUMIN 2.1 g/dl (3.4-5.0); ALK PHOS 119 U/L (45-117); ANION GAP 6 MMOL/L (8-16); BILIRUBIN,TOTAL 0.3 mg/dL (0.2-1); BLOOD UREA NITROGEN 16 mg/dL (7-18); CALCIUM 8.1 mg/dL (8.5-10.1); CHLORIDE 107 mmol/L (98-107); CO2 24 mmol/L (21-32); CREATININE 0.7 mg/dL (0.55-1.3); GLUCOSE,RANDOM 92 mg/dL (74-106); POTASSIUM 4.7 mmol/L (3.5-5.1); SGOT/AST 15 U/L (15-37); SGPT/ALT 15 U/L (13-61); SODIUM 137 mmol/L (136-145); TOT PROT 6.5 g/dl (6.4-8.2)
[2018-12-24 08:20] LABS: INR 1.06 (0.83-1.09); PROTHROMBIN TIME (PATIENT) 12.5 SEC (9.7-13.0)
[2018-12-24] MEDS: FERROUS SO4 325 MG TABLET (FP) PO SCH ×2 (08:52→18:09)
--- NOTE | 2018-12-24 10:06 | PN ---
Physical Exam: SUBJECTIVE: Patient seen and examined at the bedside. OBJECTIVE: for the OR today with Dr. Moya for I&D left hip with possible wound closure vs exchange of wound vac Vital Signs Period Temp Pulse Resp BP Sys/Vargas Pulse Ox Last 24 Hr 98.5 F-98.5 F 80-89 18-20 110-118/48-64 98 GENERAL: The patient is awake, alert, and fully oriented, in no acute distress. HEAD: Normal with no signs of trauma. EYES: PERRL, conjunctiva clear. ENT: nares patent, oropharynx clear without exudates, + poor dentition, moist mucous membranes. NECK: Trachea midline, full range of motion, supple. HEART: Regular rate and rhythm, S1, S2 without murmur, rub or gallop. EXTREMITIES: 2+ pulses, warm, well-perfused, no edema. Left hip: clear dsg with wound vac-purulent sero sang drainage in cannister NEUROLOGICAL: WC BOUND Normal speech, PSYCH: Normal mood, normal affect. Laboratory Results - last 24 hr 12/23/18 12/23/18 12/24/18 09:30 09:30 06:45 WBC 11.8 H 8.9 RBC 4.31 4.14 Hgb 10.5 L 9.9 L Hct 32.7 D 31.3 L MCV 75.8 L 75.7 L MCH 24.4 L 24.0 L MCHC 32.3 31.7 L RDW 20.9 H 20.6 H Plt Count 623 H D 539 H MPV 6.9 L 6.8 L Absolute Neuts (auto) 8.8 H 5.9 Neutrophils % 74.3 66.7 Lymphocytes % 15.1 D 18.1 Monocytes % 4.3 5.5 Eosinophils % 5.4 H 8.8 H Basophils % 0.9 0.9 Nucleated RBC % 0 0 PT with INR INR Sodium 136 Potassium 4.3 Chloride 107 Carbon Dioxide 24 Anion Gap 6 L BUN 14 Creatinine 0.7 Creat Clearance w eGFR 84.51 Random Glucose 105 Calcium 8.4 L Total Bilirubin 0.1 L AST 11 L ALT 14 Alkaline Phosphatase 121 H Total Protein 7.2 Albumin 2.2 L Blood Type Antibody Screen 12/24/18 12/24/18 12/24/18 06:45 06:45 06:45 WBC RBC Hgb Hct MCV MCH MCHC RDW Plt Count MPV Absolute Neuts (auto) Neutrophils % Lymphocytes % Monocytes % Eosinophils % Basophils % Nucleated RBC % PT with INR 12.50 INR 1.06 Sodium 137 Potassium 4.7 Chloride 107 Carbon Dioxide 24 Anion Gap 6 L BUN 16 Creatinine 0.7 Creat Clearance w eGFR 84.51 Random Glucose 92 Calcium 8.1 L Total Bilirubin 0.3 AST 15 ALT 15 Alkaline Phosphatase 119 H Total Protein 6.5 Albumin 2.1 L Blood Type A POSITIVE Antibody Screen Positive H Active Medications Generic Name Dose Route Start Last Admin Trade Name Freq PRN Reason Stop Dose Admin Al Hydroxide/Mg Hydroxide 30 ml 12/17/18 17:02 Mylanta Oral Suspension - PO Q6HPO PRN DYSPEPSIA Aspirin 325 mg 12/18/18 10:00 12/23/18 09:29 Ecotrin - PO 325 mg DAILY ELKE Administration Cyclobenzaprine HCl 5 mg 12/18/18 10:00 12/23/18 09:30 Cyclobenzaprine Hcl PO 5 mg DAILY ELKE Administration Docusate Sodium 100 mg 12/17/18 22:00 12/24/18 06:12 Colace - PO 100 mg TID ELKE Administration Duloxetine HCl 30 mg 12/17/18 22:00 12/23/18 21:39 Cymbalta - PO 30 mg BID ELKE Administration Ferrous Sulfate 325 mg 12/17/18 17:30 12/24/18 08:52 Feosol - PO 325 mg BIDWM ELKE Administration Ertapenem 1 gm/ Sodium 50 mls @ 100 mls/hr 12/18/18 10:00 12/23/18 09:30 Chloride IVPB 100 mls/hr DAILY ELKE Administration Sodium Chloride 1,000 mls @ 100 mls/hr 12/17/18 17:02 12/23/18 17:50 Normal Saline - IV Not Given ASDIR ELKE Daptomycin 500 mg/ Sodium 50 mls @ 50 mls/hr 12/23/18 17:30 12/23/18 17:51 Chloride IVPB 50 mls/hr Q24H ELKE Administration Protocol Lidocaine 1 patch 12/18/18 10:00 12/23/18 09:30 Lidoderm Patch - TP 1 patch DAILY ELKE Administration Miscellaneous 1 each 12/17/18 22:00 12/23/18 22:22 Lidoderm Patch Removal MC Not Given DAILY@2200 ELKE Ondansetron HCl 4 mg 12/17/18 17:02 Zofran Injection IVPUSH Q6H PRN NAUSEA AND/OR VOMITING Oxybutynin Chloride 5 mg 12/17/18 22:00 12/24/18 06:12 Ditropan - PO 5 mg TID ELKE Administration Oxycodone HCl 80 mg 12/17/18 22:00 12/23/18 21:39 Oxycontin - PO 80 mg BID ELKE Administration Oxycodone HCl 30 mg 12/20/18 10:46 12/24/18 09:44 Roxicodone - PO 30 mg Q4H PRN Administration PAIN LEVEL 7 - 10 Pantoprazole Sodium 40 mg 12/18/18 10:00 12/23/18 09:29 Protonix - PO 40 mg DAILY ELKE Administration Polyethylene Glycol 17 gm 12/18/18 10:00 12/23/18 09:30 Miralax (For Daily Use) - PO Not Given DAILY ELKE Pregabalin 100 mg 12/17/18 22:00 12/24/18 06:12 Lyrica - PO 100 mg TID ELKE Administration Senna 2 tab 12/17/18 17:02 Senna - PO HS PRN CONSTIPATION Simethicone 40 mg 12/17/18 17:02 Mylicon Liquid - PO Q6H PRN INDIGESTION ASSESSMENT/PLAN: Patient is a 63 year old female with a significant past medical history of hypertension, anxiety, depression, chronic pain and chronic left hip left wound. who has undergone left hip debridement of soft tissue, muscle, bone, VAC application on 11/19, subsequently multiple I and D wound washes , underwent s/p osteotomy left femur, removal of hardware (explant femoral component), I&D left hip wound; hardware removed by surgery. Chronic left hip left wound. Hardware removed Today for an I&D of left hip with possible wound closure vs exchange of wound vac She is in agreement to go to [place] for wound care -On daptomycin 500mg q 24 and ertapenem (started on 12/14/18, will need 8 weeks total) -wound vac and pain management -monitor drain output with wound vac -surgery following Plan: Has a bed at [facility] for wound care once cleared by surgery. fen tolerating po monitor electrolytes low salt diet prophy full dose asa 325.mg and SCDs Visit type - Emergency Visit Emergency Visit: Yes ED Registration Date: 11/19/18 Care time: The patient presented to the Emergency Department on the above date and was hospitalized for further evaluation of their emergent condition. - New Patient This patient is new to me today: No - Critical Care Critical Care patient: No - Discharge Referral Referred to [facility] Med P.C.: No
[2018-12-24] MEDS ORDERED: fentaNYL CITRATE 250 MCG/5 ML VIAL ONE (10:25)
[2018-12-24] MEDS ORDERED: DEXAMETHASONE SOD PHOSPHATE 4 MG/1 ML VIAL ONE (10:26)
[2018-12-24] MEDS ORDERED: SUCCINYLCHOLINE CHLORIDE 200 MG/10 ML VIAL ONE (10:26)
[2018-12-24] MEDS ORDERED: MIDAZOLAM HCL 2 MG/2 ML SINGLE DOSE VIAL ONE (10:26)
[2018-12-24] MEDS ORDERED: ROCURONIUM BROMIDE 50 MG/5 ML VIAL ONE (10:26)
[2018-12-24] MEDS ORDERED: LIDOCAINE HCL/PF 2% SDV 5ML VIAL ONE (10:26)
[2018-12-24] MEDS ORDERED: PROPOFOL 20 ML ONE (10:26)
[2018-12-24] MEDS ORDERED: DESFLURANE GAS 240 ML BOTTLE IH ONE (10:29)
[2018-12-24] MEDS ORDERED: TRANEXAMIC ACID 1000 MG/10 ML VIAL ONE (11:33)
--- NOTE | 2018-12-24 12:19 | OP ---
Operative Note - Note: Operative Date: 12/24/18 Pre-Operative Diagnosis: Chronic left hip wound Operation: 1. I&D left hip wound. 2. Exchange left hip wound vac Findings: Wound dimensions: Length - 15cm Width - 6cm Depth - 10cm Surgeon: Albert Moya Model Builder Display: Gelacio Moya Anesthesiologist/GRAVEDIGGER: Kunal Luna Anesthesia: General Specimens Removed: Left hip wound granulation tissue Estimated Blood Loss (mls): 25 Drains & Tubes with Location: Left hip wound vac Fluid Volume Replaced (mls): 500 (Crystalloid) Operative Report Dictated: Yes
--- NOTE | 2018-12-24 12:22 | PN ---
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 Wound dimensions with wound vac applied: Length - 15cm Width - 6cm Depth - 10cm No signs of infection. -Pain control: per anaesthesia team. -DVT PPx: - Chemical: ASA 81mg PO BID. - Mechanical: SOUTH's, SCD's. -Incentive spirometry: q15 min. -NWB LLE. -f/u intra-operative wound pathology specimen. -f/u AM labs. -Care per medical hospitalist & ID team. -Will plan intra-operative wound re-assessment in conjunction with plastic surgery service to discuss possible definitive primary wound closure versus flap closure versus continued delayed primary closure with wound vac. -Discharge planning: patient requires further definitive surgery and thus a prolonged inpatient stay. -Will follow. Albert Moya MD (Orthopaedic Surgery).
[2018-12-24] MEDS ORDERED: SENNOSIDES 8.6MG TABLET (FP) PO PRN (12:26)
[2018-12-24] MEDS ORDERED: MAG HYDROX/AL HYDROX/SIMETH 30 ML UNIT-DOSE CUP PO PRN (12:26)
[2018-12-24] MEDS ORDERED: ONDANSETRON 4 MG/2 ML VIAL IVPUSH PRN (12:26)
[2018-12-24] MEDS ORDERED: SIMETHICONE 40 MG/0.6 ML BOTTLE PO PRN (12:26)
[2018-12-24] MEDS: SODIUM CHLORIDE 1,000 ML IV SCH (14:30)
[2018-12-24] MEDS: LIDOCAINE 5% TOPICAL PATCH TP SCH (15:45)
[2018-12-24] MEDS: ERTAPENEM SODIUM 1 GM in SODIUM CHLORIDE 50 ML IVPB SCH (15:45)
[2018-12-24] MEDS: PANTOPRAZOLE 40 MG TABLET (FP) PO SCH (15:46)
[2018-12-24] MEDS: POLYETHYLENE GLYCOL 3350 119 GM BTL PO SCH (15:46)
[2018-12-24] MEDS: oxyCODONE HCL 80 MG SUSTAINED ACTING TABLET PO SCH ×2 (15:46→21:39)
[2018-12-24] MEDS: DULoxetine HCL 30 MG CAPSULE.DR (FP) PO SCH ×2 (15:47→21:40)
[2018-12-24] MEDS: CYCLOBENZAPRINE HCL 5 MG TABLET PO SCH (15:47)
[2018-12-24] MEDS: ASPIRIN 325 MG ENTERIC COATED TABLET (FP) PO SCH (15:47)
[2018-12-24] MEDS: AMINO ACIDS/PROTEIN HYDROLYS 30 ML LIQUID.PKT PO SCH (18:09)
[2018-12-24] MEDS: DAPTOMYCIN 500 MG in SODIUM CHLORIDE 50 ML IVPB SCH (18:10)
[2018-12-24] MEDS: LIDOCAINE PATCH REMOVAL MC SCH (21:41)
[2018-12-24] MEDS ORDERED: LIDOCAINE PATCH REMOVAL MC SCH (22:00)
[2018-12-25] MEDS: oxyCODONE HCL 5 MG TABLET PO PRN ×5 (04:02→21:34)
[2018-12-25] MEDS: OXYBUTYNIN CHLORIDE 5 MG TABLET PO SCH ×3 (05:50→21:33)
[2018-12-25] MEDS: DOCUSATE SODIUM 100 MG CAPSULE (FP) PO SCH ×3 (05:50→21:34)
[2018-12-25] MEDS: PREGABALIN 100 MG CAPSULE PO SCH ×3 (05:50→21:34)
[2018-12-25] MEDS: AMINO ACIDS/PROTEIN HYDROLYS 30 ML LIQUID.PKT PO SCH ×2 (08:28→17:09)
[2018-12-25] MEDS: FERROUS SO4 325 MG TABLET (FP) PO SCH ×2 (08:28→17:09)
[2018-12-25] MEDS ORDERED: PT OWN MED DRAWER 7, Y5N ONE (09:50)
[2018-12-25] MEDS: LIDOCAINE 5% TOPICAL PATCH TP SCH (09:54)
[2018-12-25] MEDS: ERTAPENEM SODIUM 1 GM in SODIUM CHLORIDE 50 ML IVPB SCH (09:56)
[2018-12-25] MEDS: CYCLOBENZAPRINE HCL 5 MG TABLET PO SCH (09:56)
[2018-12-25] MEDS: oxyCODONE HCL 80 MG SUSTAINED ACTING TABLET PO SCH ×2 (09:57→23:18)
[2018-12-25] MEDS: ASPIRIN 325 MG ENTERIC COATED TABLET (FP) PO SCH (09:58)
[2018-12-25] MEDS: POLYETHYLENE GLYCOL 3350 119 GM BTL PO SCH (09:58)
[2018-12-25] MEDS: PANTOPRAZOLE 40 MG TABLET (FP) PO SCH (09:58)
[2018-12-25] MEDS: DULoxetine HCL 30 MG CAPSULE.DR (FP) PO SCH ×2 (09:58→21:33)
[2018-12-25] MEDS ORDERED: oxyCODONE HCL 5 MG TABLET PO ONE (11:15)
--- NOTE | 2018-12-25 12:41 | PN ---
Progress Note, Physician Chief Complaint: s/p washout of hip wound History of Present Illness: post op day one, general anesthesia - Current Medication List Current Medications: Active Medications Al Hydroxide/Mg Hydroxide (Mylanta Oral Suspension -) 30 ml PO Q6HPO PRN PRN Reason: DYSPEPSIA Amino Acids (Prosource No Carb Liquid Pkt) 30 ml PO BID@0800,1730 [facility] Last Admin: 12/25/18 08:28 Dose: 30 ml Aspirin (Ecotrin -) 325 mg PO DAILY [facility] Last Admin: 12/25/18 09:58 Dose: 325 mg Cyclobenzaprine HCl (Cyclobenzaprine Hcl) 5 mg PO DAILY [facility] Last Admin: 12/25/18 09:56 Dose: 5 mg Docusate Sodium (Colace -) 100 mg PO TID [facility] Last Admin: 12/25/18 05:50 Dose: 100 mg Duloxetine HCl (Cymbalta -) 30 mg PO BID [facility] Last Admin: 12/25/18 09:58 Dose: 30 mg Ferrous Sulfate (Feosol -) 325 mg PO BIDWM [facility] Last Admin: 12/25/18 08:28 Dose: 325 mg Daptomycin 500 mg/ Sodium (Chloride) 50 mls @ 50 mls/hr IVPB Q24H [facility]; Protocol Last Admin: 12/24/18 18:10 Dose: 50 mls/hr Ertapenem 1 gm/ Sodium (Chloride) 50 mls @ 100 mls/hr IVPB DAILY [facility] Last Admin: 12/25/18 09:56 Dose: 100 mls/hr Sodium Chloride (Normal Saline -) 1,000 mls @ 100 mls/hr IV ASDIR [facility] Last Admin: 12/24/18 14:30 Dose: Not Given Lidocaine (Lidoderm Patch -) 1 patch TP DAILY [facility] Last Admin: 12/25/18 09:54 Dose: 1 patch Miscellaneous (Lidoderm Patch Removal) 1 each MC DAILY@2200 [facility] Last Admin: 12/24/18 21:41 Dose: Not Given Ondansetron HCl (Zofran Injection) 4 mg IVPUSH Q6H PRN PRN Reason: NAUSEA AND/OR VOMITING Oxybutynin Chloride (Ditropan -) 5 mg PO TID [facility] Last Admin: 12/25/18 05:50 Dose: 5 mg Oxycodone HCl (Roxicodone -) 30 mg PO Q4H PRN PRN Reason: PAIN LEVEL 7 - 10 Last Admin: 12/25/18 08:27 Dose: 30 mg Oxycodone HCl (Oxycontin -) 80 mg PO BID [facility] Last Admin: 12/25/18 09:57 Dose: 80 mg Pantoprazole Sodium (Protonix -) 40 mg PO DAILY [facility] Last Admin: 12/25/18 09:58 Dose: 40 mg Polyethylene Glycol (Miralax (For Daily Use) -) 17 gm PO DAILY [facility] Last Admin: 12/25/18 09:58 Dose: Not Given Pregabalin (Lyrica -) 100 mg PO TID [facility] Last Admin: 12/25/18 05:50 Dose: 100 mg Senna (Senna -) 2 tab PO HS PRN PRN Reason: CONSTIPATION Simethicone (Mylicon Liquid -) 40 mg PO Q6H PRN PRN Reason: INDIGESTION - Objective Vital Signs: Vital Signs Temperature 98.5 F 12/25/18 10:00 Pulse Rate 99 H 12/25/18 10:00 Respiratory Rate 20 12/25/18 10:00 Blood Pressure 113/61 12/25/18 10:00 O2 Sat by Pulse Oximetry (%) 98 12/24/18 21:00 Constitutional: Yes: Well Nourished Cardiovascular: Yes: WNL Respiratory: Yes: WNL Gastrointestinal: Yes: WNL Labs: CBC, BMP 12/24/18 06:45 12/24/18 06:45 INR, PTT INR 1.06 (0.83-1.09) 12/24/18 06:45 Assessment/Plan no complications from anesthesia, dept of anesthesiology will sign off care at this time
[2018-12-25] MEDS: SODIUM CHLORIDE 1,000 ML IV SCH (13:52)
--- NOTE | 2018-12-25 16:40 | PATH ---
Surgical Pathology Report Patient Name: CONNOR SON Med. Rec. #: [id number] /Age/Gender: 1955 (Age: 63) / F Account: [id number] Location: [facility] MED/SURG Taken: 12/24/2018 Received: 12/24/2018 Reported: 12/25/2018 Physicians: Abena Oconnor FNP Specimen(s) Received LEFT HIP WOUND Clinical History I+D left hip and VAC placement Final Diagnosis LEFT HIP WOUND, EXCISION: FRAGMENTS OF FIBROUS TISSUE SHOWING HEMORRHAGE, ACUTE AND CHRONIC INFLAMMATION, AND GRANULATION TISSUE FORMATION. PORTION OF BONE WITH REACTIVE CHANGE. Electronically Signed Elaine Benítez M.D. Gross Description Received in formalin labeled "left hip wound" is an 8.0 x 6.5 x 2.9 cm aggregate of multiple quarles-pink, necrotic, focally calcified portions of tissue. Linen Controller sections are submitted in one cassette, following decalcification. /12/24/2018 saudi/12/24/2018
--- NOTE | 2018-12-25 16:54 | PN ---
Physical Exam: SUBJECTIVE: Patient seen and examined. She has no complaints. OBJECTIVE: Vital Signs Period Temp Pulse Resp BP Sys/Vargas Pulse Ox Last 24 Hr 98 F-98.9 F 78-109 18-20 108-113/61-68 98-100 GENERAL: The patient is awake, alert, and fully oriented. LUNGS: Breath sounds equal, clear to auscultation bilaterally, no wheezes, no crackles, no accessory muscle use. HEART: Regular rhythm, tachycardic, S1 S2 without murmur, rub or gallop. ABDOMEN: Soft, nontender, nondistended, normoactive bowel sounds, no guarding, no rebound, no hepatosplenomegaly, no masses. EXTREMITIES: 2+ pulses, warm, well-perfused, no edema. VAC on left hip. Active Medications Generic Name Dose Route Start Last Admin Trade Name Freq PRN Reason Stop Dose Admin Al Hydroxide/Mg Hydroxide 30 ml 12/24/18 12:26 Mylanta Oral Suspension - PO Q6HPO PRN DYSPEPSIA Amino Acids 30 ml 12/24/18 17:30 12/25/18 08:28 Prosource No Carb Liquid Pkt PO 30 ml BID@0800,1730 ELKE Administration Aspirin 325 mg 12/25/18 10:00 12/25/18 09:58 Ecotrin - PO 325 mg DAILY ELKE Administration Cyclobenzaprine HCl 5 mg 12/25/18 10:00 12/25/18 09:56 Cyclobenzaprine Hcl PO 5 mg DAILY ELKE Administration Docusate Sodium 100 mg 12/24/18 14:00 12/25/18 13:53 Colace - PO 100 mg TID ELKE Administration Duloxetine HCl 30 mg 12/24/18 22:00 12/25/18 09:58 Cymbalta - PO 30 mg BID ELKE Administration Ferrous Sulfate 325 mg 12/24/18 17:30 12/25/18 08:28 Feosol - PO 325 mg BIDWM ELKE Administration Daptomycin 500 mg/ Sodium 50 mls @ 50 mls/hr 12/24/18 17:30 12/24/18 18:10 Chloride IVPB 50 mls/hr Q24H ELKE Administration Protocol Ertapenem 1 gm/ Sodium 50 mls @ 100 mls/hr 12/25/18 10:00 12/25/18 09:56 Chloride IVPB 100 mls/hr DAILY ELKE Administration Sodium Chloride 1,000 mls @ 100 mls/hr 12/24/18 12:26 12/25/18 13:52 Normal Saline - IV Not Given ASDIR ELKE Lidocaine 1 patch 12/25/18 10:00 12/25/18 09:54 Lidoderm Patch - TP 1 patch DAILY ELKE Administration Miscellaneous 1 each 12/24/18 22:00 12/24/18 21:41 Lidoderm Patch Removal MC Not Given DAILY@2200 ELKE Ondansetron HCl 4 mg 12/24/18 12:26 Zofran Injection IVPUSH Q6H PRN NAUSEA AND/OR VOMITING Oxybutynin Chloride 5 mg 12/24/18 14:00 12/25/18 13:53 Ditropan - PO 5 mg TID ELKE Administration Oxycodone HCl 30 mg 12/24/18 12:26 12/25/18 12:46 Roxicodone - PO 30 mg Q4H PRN Administration PAIN LEVEL 7 - 10 Oxycodone HCl 80 mg 12/24/18 22:00 12/25/18 09:57 Oxycontin - PO 80 mg BID ELKE Administration Pantoprazole Sodium 40 mg 12/25/18 10:00 12/25/18 09:58 Protonix - PO 40 mg DAILY ELKE Administration Polyethylene Glycol 17 gm 12/25/18 10:00 12/25/18 09:58 Miralax (For Daily Use) - PO Not Given DAILY ELKE Pregabalin 100 mg 12/24/18 14:00 12/25/18 13:53 Lyrica - PO 100 mg TID ELKE Administration Senna 2 tab 12/24/18 12:26 Senna - PO HS PRN CONSTIPATION Simethicone 40 mg 12/24/18 12:26 Mylicon Liquid - PO Q6H PRN INDIGESTION ASSESSMENT/PLAN: This is a 63 year old woman with a history of HTN, depression, anxiety, chronic back pain, urinary incontinence, chronic left hip wound who presented to the hospital for treatment of the left hip wound. 1. 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, recurrent dislocation, chronic instability, and chronic wound - s/p I&D left hip wound; debridement of soft tissue, muscle, bone; VAC application on 11/19 - s/p I&D and washout left hip wound; VAC reapplication on 11/23 - s/p washout left hip wound and VAC reapplication on 11/26 - s/p I&D and debridement left hip wound on 12/03 - s/p I&D and debridement left hip wound on 12/07 - s/p osteotomy left femur; removal of hardware (explant femoral component); I&D left hip wound; partial removal of cement mantle; exchange left hip wound vac on 12/10 - s/p I&D, wound VAC exchange on 12/17 - s/p I&D, wound VAC exchange on 12/24 - Continue ertapenem, daptomycin - Continue PT - Will need definitive primary wound closure vs flap closure vs continued delayed primary closure with wound VAC - When ready for discharge, she has a bed at [place] for wound care 2. Hypomagnesemia - Resolved 3. HTN - On no medication 4. Depression with anxiety - Continue Cymbalta 5. Acute blood loss anemia - Transfused 5 units PRBCs this admission - Continue ferrous sulfate 6. Urinary incontinence - Continue Ditropan 7. Chronic back and left hip pain - Continue Lidoderm patch, Lyrica, Flexeril, Cymbalta, OxyContin, oxycodone as needed 8. Severe malnutrition - Continue Prosource, Ensure, Magic Cup Visit type - Emergency Visit Emergency Visit: No - New Patient This patient is new to me today: No - Critical Care Critical Care patient: No - Discharge Referral Referred to [facility] Med P.C.: No
[2018-12-25] MEDS: DAPTOMYCIN 500 MG in SODIUM CHLORIDE 50 ML IVPB SCH (17:09)
[2018-12-25] MEDS: LIDOCAINE PATCH REMOVAL MC SCH (21:35)
--- NOTE | 2018-12-25 22:34 | PN ---
Progress Note (short form) - Note Progress Note: 63F p/w chronic left hip wound (s/p multiple failed left total hip replacements secondary to instability, heterotopic ossification, and infection) and prior left proximal femoral resection and large, chronic left hip wound now s/p left hip wound I&D and wound vac exchange POD #1. Pain well controlled. No acute events overnight. (+) Voiding; (+) Flatus; (-) BM. All labs and vitals reviewed. PE: AAO x 3, NAD. L Hip: Wound vac dressing C/D/I. NVI distally. A/P: 63F p/w chronic left hip wound (s/p multiple failed left total hip replacements secondary to instability, heterotopic ossification, and infection) and prior left proximal femoral resection and large, chronic left hip wound now s/p left hip wound I&D and wound vac exchange POD #1. -NPO after breakfast 12/26/2018. -Pain control: per anaesthesia team. -DVT PPx: - Chemical: ASA 81mg PO BID. - Mechanical: SOUTH's, SCD's. -Incentive spirometry: q15 min. -NWB LLE. -f/u intra-operative wound pathology specimen. -f/u AM labs. -Care per medical hospitalist, ID, & plastic surgery teams. -Will plan intra-operative wound re-assessment in conjunction with plastic surgery service to discuss possible definitive primary wound closure versus flap closure versus continued delayed primary closure with wound vac. -Wound is too large to be managed at rehab facility. -Discharge planning: patient requires further definitive surgery and thus a prolonged inpatient stay. -Will follow. Albert Moya MD (Orthopaedic Surgery).
[2018-12-26] MEDS ORDERED: HYDROmorphone HCL 2 MG TABLET PO ONE (00:30)
[2018-12-26] MEDS: PREGABALIN 100 MG CAPSULE PO SCH ×3 (05:57→22:00)
[2018-12-26] MEDS: DOCUSATE SODIUM 100 MG CAPSULE (FP) PO SCH ×3 (05:57→22:00)
[2018-12-26] MEDS: OXYBUTYNIN CHLORIDE 5 MG TABLET PO SCH ×3 (05:57→22:00)
[2018-12-26] MEDS: oxyCODONE HCL 5 MG TABLET PO PRN ×2 (05:57→15:40)
[2018-12-26 07:03] LABS: HEMATOCRIT 33.2 % (32.4-45.2); HEMOGLOBIN 10.7 GM/dL (10.7-15.3); MCH 24.6 pg (25.7-33.7); MCHC 32.2 g/dl (32.0-36.0); MEAN CELL VOLUME 76.4 fl (80-96); MEAN PLT VOLUME 6.9 fl (7.5-11.1); PLATELET COUNT 584 K/MM3 (134-434); RBC 4.35 M/mm3 (3.60-5.2); WHITE BLOOD COUNT 12.1 K/mm3 (4.0-10.0)
[2018-12-26 07:30] LABS: ANION GAP 7 MMOL/L (8-16); BLOOD UREA NITROGEN 16 mg/dL (7-18); CALCIUM 8.5 mg/dL (8.5-10.1); CHLORIDE 106 mmol/L (98-107); CO2 23 mmol/L (21-32); CREATININE 0.7 mg/dL (0.55-1.3); GLUCOSE,RANDOM 94 mg/dL (74-106); POTASSIUM 4.2 mmol/L (3.5-5.1); SODIUM 136 mmol/L (136-145)
[2018-12-26] MEDS ORDERED: PT OWN MED DRAWER 7, Y5N ONE (08:48)
[2018-12-26] MEDS: AMINO ACIDS/PROTEIN HYDROLYS 30 ML LIQUID.PKT PO SCH ×2 (09:05→18:04)
[2018-12-26] MEDS: FERROUS SO4 325 MG TABLET (FP) PO SCH ×2 (09:06→17:32)
[2018-12-26] MEDS: oxyCODONE HCL 80 MG SUSTAINED ACTING TABLET PO SCH ×2 (09:06→22:00)
[2018-12-26] MEDS: CYCLOBENZAPRINE HCL 5 MG TABLET PO SCH (09:09)
[2018-12-26] MEDS: POLYETHYLENE GLYCOL 3350 119 GM BTL PO SCH (09:09)
[2018-12-26] MEDS: PANTOPRAZOLE 40 MG TABLET (FP) PO SCH (09:09)
[2018-12-26] MEDS: DULoxetine HCL 30 MG CAPSULE.DR (FP) PO SCH ×2 (09:09→22:00)
[2018-12-26] MEDS: LIDOCAINE 5% TOPICAL PATCH TP SCH (09:10)
--- NOTE | 2018-12-26 09:42 | PN ---
Physical Exam: SUBJECTIVE: Patient seen and examined 24HR EVENTS: -no acute changes OBJECTIVE: Vital Signs Period Temp Pulse Resp BP Sys/Vargas Pulse Ox Last 24 Hr 98.3 F-98.6 F 99-114 18-20 113-129/61-83 GENERAL: The patient is somnolent, oriented when awakened, in no acute distress. HEAD: Normal with no signs of trauma. EYES: PERRL, sclera anicteric, conjunctiva clear. ENT: nares patent, oropharynx clear without exudates, poor dentition, moist mucous membranes. NECK: Trachea midline, full range of motion, supple. LUNGS: Breath sounds equal, clear to auscultation bilaterally, no wheezes, no crackles, no accessory muscle use. HEART: Regular rate and rhythm, S1, S2 without murmur, rub or gallop. ABDOMEN: Soft, nontender, nondistended, normoactive bowel sounds, no guarding, no rebound, EXTREMITIES: 2+ pulses, warm, well-perfused, no edema. NEUROLOGICAL: slow speech, gait not observed. PSYCH: Normal mood, normal affect. SKIN: Left hip with open wound, no active drainage, wound VAC connected SURGICAL PROCEDURES: - s/p I&D left hip wound; debridement of soft tissue, muscle, bone; VAC application on 11/19 - s/p I&D and washout left hip wound; VAC reapplication on 11/23 - s/p washout left hip wound and VAC reapplication on 11/26 - s/p I&D and debridement left hip wound on 12/03 - s/p I&D and debridement left hip wound on 12/07 - s/p osteotomy left femur; removal of hardware (explant femoral component); I& D left hip wound; partial removal of cement mantle; exchange left hip wound vac on 12/10 - s/p I&D, wound VAC exchange on 12/17 - s/p I&D, wound VAC exchange on 12/24 Laboratory Results - last 24 hr 12/26/18 12/26/18 06:30 06:30 WBC 12.1 H RBC 4.35 Hgb 10.7 Hct 33.2 MCV 76.4 L MCH 24.6 L MCHC 32.2 RDW 21.0 H Plt Count 584 H MPV 6.9 L Sodium 136 Potassium 4.2 Chloride 106 Carbon Dioxide 23 Anion Gap 7 L BUN 16 Creatinine 0.7 Creat Clearance w eGFR 84.51 Random Glucose 94 Calcium 8.5 Active Medications Generic Name Dose Route Start Last Admin Trade Name Freq PRN Reason Stop Dose Admin Al Hydroxide/Mg Hydroxide 30 ml 12/24/18 12:26 Mylanta Oral Suspension - PO Q6HPO PRN DYSPEPSIA Amino Acids 30 ml 12/24/18 17:30 12/26/18 09:05 Prosource No Carb Liquid Pkt PO 30 ml BID@0800,1730 ELKE Administration Aspirin 325 mg 12/25/18 10:00 12/25/18 09:58 Ecotrin - PO 325 mg DAILY ELKE Administration Cyclobenzaprine HCl 5 mg 12/25/18 10:00 12/26/18 09:09 Cyclobenzaprine Hcl PO 5 mg DAILY ELKE Administration Docusate Sodium 100 mg 12/24/18 14:00 12/26/18 05:57 Colace - PO 100 mg TID ELKE Administration Duloxetine HCl 30 mg 12/24/18 22:00 12/26/18 09:09 Cymbalta - PO 30 mg BID ELKE Administration Ferrous Sulfate 325 mg 12/24/18 17:30 12/26/18 09:06 Feosol - PO 325 mg BIDWM ELKE Administration Daptomycin 500 mg/ Sodium 50 mls @ 50 mls/hr 12/24/18 17:30 12/25/18 17:09 Chloride IVPB 50 mls/hr Q24H ELKE Administration Protocol Ertapenem 1 gm/ Sodium 50 mls @ 100 mls/hr 12/25/18 10:00 12/25/18 09:56 Chloride IVPB 100 mls/hr DAILY ELKE Administration Sodium Chloride 1,000 mls @ 100 mls/hr 12/24/18 12:26 12/25/18 13:52 Normal Saline - IV Not Given ASDIR ELKE Lidocaine 1 patch 12/25/18 10:00 12/26/18 09:10 Lidoderm Patch - TP 1 patch DAILY ELKE Administration Miscellaneous 1 each 12/24/18 22:00 12/25/18 21:35 Lidoderm Patch Removal MC Not Given DAILY@2200 [facility]KE Ondansetron HCl 4 mg 12/24/18 12:26 Zofran Injection IVPUSH Q6H PRN NAUSEA AND/OR VOMITING Oxybutynin Chloride 5 mg 12/24/18 14:00 12/26/18 05:57 Ditropan - PO 5 mg TID ELKE Administration Oxycodone HCl 30 mg 12/24/18 12:26 12/26/18 05:57 Roxicodone - PO 30 mg Q4H PRN Administration PAIN LEVEL 7 - 10 Oxycodone HCl 80 mg 12/24/18 22:00 12/26/18 09:06 Oxycontin - PO 80 mg BID ELKE Administration Pantoprazole Sodium 40 mg 12/25/18 10:00 12/26/18 09:09 Protonix - PO 40 mg DAILY ELKE Administration Polyethylene Glycol 17 gm 12/25/18 10:00 12/26/18 09:09 Miralax (For Daily Use) - PO Not Given DAILY ELKE Pregabalin 100 mg 12/24/18 14:00 12/26/18 05:57 Lyrica - PO 100 mg TID ELKE Administration Senna 2 tab 12/24/18 12:26 Senna - PO HS PRN CONSTIPATION Simethicone 40 mg 12/24/18 12:26 Mylicon Liquid - PO Q6H PRN INDIGESTION ASSESSMENT/PLAN: 63 year old female with a significant past medical history of hypertension, anxiety, depression, chronic pain and chronic left hip left wound. who has undergone left hip debridement of soft tissue, muscle, bone, VAC application on 11/19, subsequently multiple I and D wound wash , underwent s/p osteotomy left femur, removal of hardware (explant femoral component),- I&D left hip wound; partial removal of cement mantle; exchange left hip wound vac on 12/10. Wound, open, hip or thigh, s/p I&D left hip wound - Chronic left hip wound-with ESBL E coli and E Faecalis growing from the wound. - continue dapto and meropenem as per ID for minimum 8 weeks - pain control with oxycodone, lyrica, flexeril and lidoderm patch - pt awaiting left hip wound closure inpt - R subcl PICC line in place for longerm abx administration hypertension: Well controlled control BP meds on Hold Depression - Continue Cymbalta, - Valium as needed. Anemia (Acute blood loss anemia- s/p 5 unit PRBC) -trend H/H -Oral iron daily Urinary incontinence: - Cont oxybutynin Severe malnutrition - Continue Prosource, Ensure, Magic Cup PPX: - PPI daily - bowel regimen with senna, miralax and colace -simethicone PRN gas pain DISPO: Full code Problem List - Problems (1) Prophylactic measure Code(s): Z29.9 - ENCOUNTER FOR PROPHYLACTIC MEASURES, UNSPECIFIED (2) Depression Code(s): F32.9 - MAJOR DEPRESSIVE DISORDER, SINGLE EPISODE, UNSPECIFIED (3) HTN (hypertension) Code(s): I10 - ESSENTIAL (PRIMARY) HYPERTENSION (4) Chronic pain Code(s): G89.29 - OTHER CHRONIC PAIN (5) Wound, open, hip or thigh Code(s): UQQ3846 - (6) Anemia Code(s): D64.9 - ANEMIA, UNSPECIFIED (7) Urinary incontinence Code(s): R32 - UNSPECIFIED URINARY INCONTINENCE Visit type - Emergency Visit Emergency Visit: No - New Patient This patient is new to me today: No - Critical Care Critical Care patient: No - Discharge Referral [facility]erred to [facility] Med P.C.: No
[2018-12-26] MEDS: ERTAPENEM SODIUM 1 GM in SODIUM CHLORIDE 50 ML IVPB SCH (10:23)
[2018-12-26] MEDS: SODIUM CHLORIDE 1,000 ML IV SCH (15:39)
[2018-12-26] MEDS: ASPIRIN 325 MG ENTERIC COATED TABLET (FP) PO SCH (15:57)
[2018-12-26] MEDS: DAPTOMYCIN 500 MG in SODIUM CHLORIDE 50 ML IVPB SCH (18:23)
[2018-12-27] MEDS: PREGABALIN 100 MG CAPSULE PO SCH ×3 (05:45→21:14)
[2018-12-27] MEDS: OXYBUTYNIN CHLORIDE 5 MG TABLET PO SCH ×3 (05:45→21:15)
[2018-12-27] MEDS: DOCUSATE SODIUM 100 MG CAPSULE (FP) PO SCH ×3 (05:45→21:15)
[2018-12-27] MEDS: oxyCODONE HCL 5 MG TABLET PO PRN ×4 (05:46→21:15)
[2018-12-27 07:34] LABS: HEMOGLOBIN 10.7 GM/dL (10.7-15.3); MCH 24.5 pg (25.7-33.7); MCHC 32.3 g/dl (32.0-36.0); MEAN CELL VOLUME 75.8 fl (80-96); MEAN PLT VOLUME 7.1 fl (7.5-11.1); PLATELET COUNT 566 K/MM3 (134-434); RBC 4.35 M/mm3 (3.60-5.2); RDW 21.4 % (11.6-15.6); WHITE BLOOD COUNT 11.4 K/mm3 (4.0-10.0)
[2018-12-27 08:01] LABS: ALBUMIN 2.3 g/dl (3.4-5.0); ALK PHOS 148 U/L (45-117); ANION GAP 7 MMOL/L (8-16); BILIRUBIN,TOTAL 0.3 mg/dL (0.2-1); BLOOD UREA NITROGEN 17 mg/dL (7-18); CALCIUM 8.6 mg/dL (8.5-10.1); CHLORIDE 108 mmol/L (98-107); CO2 22 mmol/L (21-32); CREATININE 0.6 mg/dL (0.55-1.3); GLUCOSE,RANDOM 99 mg/dL (74-106); POTASSIUM 4.4 mmol/L (3.5-5.1); SGOT/AST 13 U/L (15-37); SGPT/ALT 17 U/L (13-61); SODIUM 137 mmol/L (136-145)
[2018-12-27] MEDS: LIDOCAINE PATCH REMOVAL MC SCH ×2 (08:22→22:05)
[2018-12-27] MEDS: AMINO ACIDS/PROTEIN HYDROLYS 30 ML LIQUID.PKT PO SCH ×2 (08:22→18:40)
[2018-12-27] MEDS: FERROUS SO4 325 MG TABLET (FP) PO SCH ×2 (08:22→18:40)
--- NOTE | 2018-12-27 09:23 | PN ---
Physical Exam: SUBJECTIVE: Patient seen and examined 24HR EVENTS: -PT depressed about length of hospital stay and would like to go home -possible plastic surgery consult for flap closure OBJECTIVE: Vital Signs Period Temp Pulse Resp BP Sys/Vargas Pulse Ox Last 24 Hr 98 F-98.7 F 107-113 18-20 110-126/78-84 GENERAL: The patient is alert, oriented when awakened, in no acute distress. HEAD: Normal with no signs of trauma. EYES: PERRL, sclera anicteric, conjunctiva clear. ENT: nares patent, oropharynx clear without exudates, poor dentition, moist mucous membranes. NECK: Trachea midline, full range of motion, supple. LUNGS: Breath sounds equal, clear to auscultation bilaterally, no wheezes, no crackles, no accessory muscle use. HEART: Regular rate and rhythm, S1, S2 without murmur, rub or gallop. ABDOMEN: Soft, nontender, nondistended, normoactive bowel sounds, no guarding, no rebound, EXTREMITIES: 2+ pulses, warm, well-perfused, no edema. NEUROLOGICAL: slow speech, gait not observed. PSYCH: Normal mood, normal affect. SKIN: Left hip with open wound, no active drainage, wound VAC connected SURGICAL PROCEDURES: - s/p I&D left hip wound; debridement of soft tissue, muscle, bone; VAC application on 11/19 - s/p I&D and washout left hip wound; VAC reapplication on 11/23 - s/p washout left hip wound and VAC reapplication on 11/26 - s/p I&D and debridement left hip wound on 12/03 - s/p I&D and debridement left hip wound on 12/07 - s/p osteotomy left femur; removal of hardware (explant femoral component); I& D left hip wound; partial removal of cement mantle; exchange left hip wound vac on 12/10 - s/p I&D, wound VAC exchange on 12/17 - s/p I&D, wound VAC exchange on 12/24 Laboratory Results - last 24 hr 12/27/18 12/27/18 06:05 06:05 WBC 11.4 H RBC 4.35 Hgb 10.7 Hct 33.0 MCV 75.8 L MCH 24.5 L MCHC 32.3 RDW 21.4 H Plt Count 566 H MPV 7.1 L Sodium 137 Potassium 4.4 Chloride 108 H Carbon Dioxide 22 Anion Gap 7 L BUN 17 Creatinine 0.6 Creat Clearance w eGFR 100.97 Random Glucose 99 Calcium 8.6 Total Bilirubin 0.3 AST 13 L ALT 17 Alkaline Phosphatase 148 H Total Protein 7.0 Albumin 2.3 L Active Medications Generic Name Dose Route Start Last Admin Trade Name Freq PRN Reason Stop Dose Admin Al Hydroxide/Mg Hydroxide 30 ml 12/24/18 12:26 Mylanta Oral Suspension - PO Q6HPO PRN DYSPEPSIA Amino Acids 30 ml 12/24/18 17:30 12/27/18 08:22 Prosource No Carb Liquid Pkt PO 30 ml BID@0800,1730 ELKE Administration Aspirin 325 mg 12/25/18 10:00 12/26/18 15:57 Ecotrin - PO Not Given DAILY ELKE Cyclobenzaprine HCl 5 mg 12/25/18 10:00 12/26/18 09:09 Cyclobenzaprine Hcl PO 5 mg DAILY ELKE Administration Docusate Sodium 100 mg 12/24/18 14:00 12/27/18 05:45 Colace - PO 100 mg TID ELKE Administration Duloxetine HCl 30 mg 12/24/18 22:00 12/26/18 22:00 Cymbalta - PO Not Given BID [facility] Ferrous Sulfate 325 mg 12/24/18 17:30 12/27/18 08:22 Feosol - PO 325 mg BIDWM ELKE Administration Daptomycin 500 mg/ Sodium 50 mls @ 50 mls/hr 12/24/18 17:30 12/26/18 18:23 Chloride IVPB 50 mls/hr Q24H ELKE Administration Protocol Ertapenem 1 gm/ Sodium 50 mls @ 100 mls/hr 12/25/18 10:00 12/26/18 10:23 Chloride IVPB 100 mls/hr DAILY ELKE Administration Sodium Chloride 1,000 mls @ 100 mls/hr 12/24/18 12:26 12/26/18 15:39 Normal Saline - IV Not Given ASDIR ELKE Lidocaine 1 patch 12/25/18 10:00 12/26/18 09:10 Lidoderm Patch - TP 1 patch DAILY ELKE Administration Miscellaneous 1 each 12/24/18 22:00 12/27/18 08:22 Lidoderm Patch Removal MC Not Given DAILY@2200 [facility] Ondansetron HCl 4 mg 12/24/18 12:26 Zofran Injection IVPUSH Q6H PRN NAUSEA AND/OR VOMITING Oxybutynin Chloride 5 mg 12/24/18 14:00 12/27/18 05:45 Ditropan - PO 5 mg TID ELKE Administration Oxycodone HCl 30 mg 12/24/18 12:26 12/27/18 05:46 Roxicodone - PO 30 mg Q4H PRN Administration PAIN LEVEL 7 - 10 Oxycodone HCl 80 mg 12/24/18 22:00 12/26/18 22:00 Oxycontin - PO Not Given BID ELKE Pantoprazole Sodium 40 mg 12/25/18 10:00 12/26/18 09:09 Protonix - PO 40 mg DAILY ELKE Administration Polyethylene Glycol 17 gm 12/25/18 10:00 12/26/18 09:09 Miralax (For Daily Use) - PO Not Given DAILY [facility] Pregabalin 100 mg 12/24/18 14:00 12/27/18 05:45 Lyrica - PO 100 mg TID [facility] Administration Senna 2 tab 12/24/18 12:26 Senna - PO HS PRN CONSTIPATION Simethicone 40 mg 12/24/18 12:26 Mylicon Liquid - PO Q6H PRN INDIGESTION ASSESSMENT/PLAN: 63 year old female with a significant past medical history of hypertension, anxiety, depression, chronic pain and chronic left hip left wound. who has undergone left hip debridement of soft tissue, muscle, bone, VAC application on 11/19, subsequently multiple I and D wound wash , underwent s/p osteotomy left femur, removal of hardware (explant femoral component),- I&D left hip wound; partial removal of cement mantle. Wound, open, hip or thigh, s/p I&D left hip wound - Chronic left hip wound-with ESBL E coli and E Faecalis - continue dapto and meropenem as per ID for minimum 8 weeks - pain control with oxycodone, lyrica, flexeril and lidoderm patch - pt awaiting left hip wound closure inpt - R subcl PICC line in place for longerm abx administration hypertension: Well controlled control BP meds on Hold Depression - Continue Cymbalta, - Valium as needed. Anemia (Acute blood loss anemia- s/p 5 unit PRBC) -trend H/H -Oral iron daily Urinary incontinence: - Cont oxybutynin Severe malnutrition - Continue Prosource, Ensure, Magic Cup PPX: - PPI daily - bowel regimen with senna, miralax and colace -simethicone PRN gas pain -prosource BID -ASA 325mg daily DISPO: Full code Problem List - Problems (1) Prophylactic measure Code(s): Z29.9 - ENCOUNTER FOR PROPHYLACTIC MEASURES, UNSPECIFIED (2) Depression Code(s): F32.9 - MAJOR DEPRESSIVE DISORDER, SINGLE EPISODE, UNSPECIFIED (3) HTN (hypertension) Code(s): I10 - ESSENTIAL (PRIMARY) HYPERTENSION (4) Chronic pain Code(s): G89.29 - OTHER CHRONIC PAIN (5) Wound, open, hip or thigh Code(s): UQW9630 - (6) Anemia Code(s): D64.9 - ANEMIA, UNSPECIFIED (7) Urinary incontinence Code(s): R32 - UNSPECIFIED URINARY INCONTINENCE Visit type - Emergency Visit Emergency Visit: No - New Patient This patient is new to me today: No - Critical Care Critical Care patient: No - Discharge Referral [facility]erred to [facility] Med P.C.: No
[2018-12-27] MEDS: PANTOPRAZOLE 40 MG TABLET (FP) PO SCH (10:55)
[2018-12-27] MEDS: oxyCODONE HCL 80 MG SUSTAINED ACTING TABLET PO SCH ×2 (10:55→21:14)
[2018-12-27] MEDS: DULoxetine HCL 30 MG CAPSULE.DR (FP) PO SCH ×2 (10:57→21:15)
[2018-12-27] MEDS: ERTAPENEM SODIUM 1 GM in SODIUM CHLORIDE 50 ML IVPB SCH (10:57)
[2018-12-27] MEDS: ASPIRIN 325 MG ENTERIC COATED TABLET (FP) PO SCH (10:57)
[2018-12-27] MEDS: LIDOCAINE 5% TOPICAL PATCH TP SCH (10:58)
[2018-12-27] MEDS: POLYETHYLENE GLYCOL 3350 119 GM BTL PO SCH (11:00)
[2018-12-27] MEDS ORDERED: PT OWN MED DRAWER 7, Y5N ONE (11:07)
[2018-12-27] MEDS: CYCLOBENZAPRINE HCL 5 MG TABLET PO SCH (11:47)
[2018-12-27] MEDS: SODIUM CHLORIDE 1,000 ML IV SCH (12:56)
--- NOTE | 2018-12-27 16:35 | EKG ---
Test Reason : Blood Pressure : / mmHG Vent. Rate : 107 BPM Atrial Rate : 107 BPM P-R Int : 140 ms QRS Dur : 074 ms QT Int : 330 ms P-R-T Axes : 057 034 054 degrees QTc Int : 440 ms SINUS TACHYCARDIA OTHERWISE NORMAL ECG WHEN COMPARED WITH ECG OF 14-DEC-2018 17:48, NO SIGNIFICANT CHANGE WAS FOUND Confirmed by DORA GRAHAM MD ([id number]) on 12/27/2018 4:34:55 PM Referred By: Albert Moya Confirmed By:DORA GRAHAM MD
[2018-12-27] MEDS: DAPTOMYCIN 500 MG in SODIUM CHLORIDE 50 ML IVPB SCH (19:50)
[2018-12-28] MEDS: oxyCODONE HCL 5 MG TABLET PO PRN ×5 (03:03→23:17)
[2018-12-28] MEDS ORDERED: PT OWN MED DRAWER 7, Y5N ONE ×2 (05:53→10:33)
[2018-12-28] MEDS: PREGABALIN 100 MG CAPSULE PO SCH ×3 (06:03→21:50)
[2018-12-28] MEDS: OXYBUTYNIN CHLORIDE 5 MG TABLET PO SCH ×3 (06:03→21:50)
[2018-12-28] MEDS: DOCUSATE SODIUM 100 MG CAPSULE (FP) PO SCH ×3 (06:03→21:50)
[2018-12-28 08:00] LABS: HEMATOCRIT 28.7 % (32.4-45.2); HEMOGLOBIN 9.3 GM/dL (10.7-15.3); MCH 24.8 pg (25.7-33.7); MCHC 32.5 g/dl (32.0-36.0); MEAN CELL VOLUME 76.3 fl (80-96); PLATELET COUNT 481 K/MM3 (134-434); RBC 3.76 M/mm3 (3.60-5.2); RDW 20.8 % (11.6-15.6); WHITE BLOOD COUNT 10.7 K/mm3 (4.0-10.0)
[2018-12-28 08:29] LABS: ALBUMIN 2.2 g/dl (3.4-5.0); ALK PHOS 141 U/L (45-117); ANION GAP 8 MMOL/L (8-16); BILIRUBIN,TOTAL 0.1 mg/dL (0.2-1); BLOOD UREA NITROGEN 22 mg/dL (7-18); CALCIUM 8.1 mg/dL (8.5-10.1); CHLORIDE 108 mmol/L (98-107); CO2 22 mmol/L (21-32); CREATININE 0.8 mg/dL (0.55-1.3); GLUCOSE,RANDOM 100 mg/dL (74-106); MAGNESIUM 2.1 mg/dL (1.8-2.4); POTASSIUM 4.4 mmol/L (3.5-5.1); SGOT/AST 14 U/L (15-37); SGPT/ALT 17 U/L (13-61); SODIUM 138 mmol/L (136-145); TOT PROT 6.3 g/dl (6.4-8.2)
[2018-12-28] MEDS: FERROUS SO4 325 MG TABLET (FP) PO SCH ×2 (08:43→16:48)
[2018-12-28] MEDS: AMINO ACIDS/PROTEIN HYDROLYS 30 ML LIQUID.PKT PO SCH ×2 (08:45→16:48)
[2018-12-28 09:33] LABS: ERYTHROCYTE SEDIMENTATION RATE 98 mm/hr (0-30)
[2018-12-28] MEDS: oxyCODONE HCL 40 MG SUSTAINED ACTING TABLET PO SCH ×2 (10:46→21:49)
[2018-12-28] MEDS: LIDOCAINE 5% TOPICAL PATCH TP SCH (10:47)
[2018-12-28] MEDS: PANTOPRAZOLE 40 MG TABLET (FP) PO SCH (10:48)
[2018-12-28] MEDS: ASPIRIN 325 MG ENTERIC COATED TABLET (FP) PO SCH (10:48)
[2018-12-28] MEDS: CYCLOBENZAPRINE HCL 5 MG TABLET PO SCH (10:48)
[2018-12-28] MEDS: ERTAPENEM SODIUM 1 GM in SODIUM CHLORIDE 50 ML IVPB SCH (10:48)
[2018-12-28] MEDS: DULoxetine HCL 30 MG CAPSULE.DR (FP) PO SCH ×2 (10:48→21:50)
[2018-12-28] MEDS: POLYETHYLENE GLYCOL 3350 119 GM BTL PO SCH (10:49)
--- NOTE | 2018-12-28 11:03 | PN ---
Progress Note (short form) - Note Progress Note: asymptomatic. denies CP, SOB, fever, chills, cough, dysuria, N/V/C/D Current Medications Generic Name Dose Route Start Last Admin Trade Name Freq PRN Reason Stop Dose Admin Al Hydroxide/Mg Hydroxide 30 ml 12/24/18 12:26 Mylanta Oral Suspension - PO Q6HPO PRN DYSPEPSIA Amino Acids 30 ml 12/24/18 17:30 12/28/18 08:45 Prosource No Carb Liquid Pkt PO 30 ml BID@0800,1730 ELKE Administration Aspirin 325 mg 12/25/18 10:00 12/28/18 10:48 Ecotrin - PO 325 mg DAILY ELKE Administration Cyclobenzaprine HCl 5 mg 12/25/18 10:00 12/28/18 10:48 Cyclobenzaprine Hcl PO 5 mg DAILY ELKE Administration Docusate Sodium 100 mg 12/24/18 14:00 12/28/18 06:03 Colace - PO 100 mg TID ELKE Administration Duloxetine HCl 30 mg 12/24/18 22:00 12/28/18 10:48 Cymbalta - PO 30 mg BID ELKE Administration Ferrous Sulfate 325 mg 12/24/18 17:30 12/28/18 08:43 Feosol - PO 325 mg BIDWM ELKE Administration Daptomycin 500 mg/ Sodium 50 mls @ 50 mls/hr 12/24/18 17:30 12/27/18 19:50 Chloride IVPB 50 mls/hr Q24H ELKE Administration Protocol Ertapenem 1 gm/ Sodium 50 mls @ 100 mls/hr 12/25/18 10:00 12/28/18 10:48 Chloride IVPB 100 mls/hr DAILY ELKE Administration Sodium Chloride 1,000 mls @ 100 mls/hr 12/24/18 12:26 12/27/18 12:56 Normal Saline - IV Not Given ASDIR ELKE Lidocaine 1 patch 12/25/18 10:00 12/28/18 10:47 Lidoderm Patch - TP 1 patch DAILY ELKE Administration Miscellaneous 1 each 12/24/18 22:00 12/27/18 22:05 Lidoderm Patch Removal MC 1 each DAILY@2200 [facility] Administration Ondansetron HCl 4 mg 12/24/18 12:26 Zofran Injection IVPUSH Q6H PRN NAUSEA AND/OR VOMITING Oxybutynin Chloride 5 mg 12/24/18 14:00 12/28/18 06:03 Ditropan - PO 5 mg TID ELKE Administration Oxycodone HCl 30 mg 12/24/18 12:26 12/28/18 08:43 Roxicodone - PO 30 mg Q4H PRN Administration PAIN LEVEL 7 - 10 Oxycodone HCl 80 mg 12/28/18 11:00 12/28/18 10:46 Oxycontin - PO 80 mg BID ELKE Administration Pantoprazole Sodium 40 mg 12/25/18 10:00 12/28/18 10:48 Protonix - PO 40 mg DAILY ELKE Administration Polyethylene Glycol 17 gm 12/25/18 10:00 12/28/18 10:49 Miralax (For Daily Use) - PO Not Given DAILY ELKE Pregabalin 100 mg 12/24/18 14:00 12/28/18 06:03 Lyrica - PO 100 mg TID ELKE Administration Senna 2 tab 12/24/18 12:26 Senna - PO HS PRN CONSTIPATION Simethicone 40 mg 12/24/18 12:26 Mylicon Liquid - PO Q6H PRN INDIGESTION Last Vital Signs Temp Pulse Resp BP Pulse Ox 98.3 F 98 H 20 110/59 L 100 12/28/18 06:00 12/28/18 06:00 12/28/18 06:00 12/28/18 06:00 12/27/18 21:00 General NAD CV S1 S2 RRR no murmur/rub/gallop Lungs CTA B/L no wheezing/rales/rhonchi Abdomen soft NT/ND Extremities no pedal edema, L hip with tegaderm in place CBCD WBC 10.7 K/mm3 (4.0-10.0) H 12/28/18 06:30 RBC 3.76 M/mm3 (3.60-5.2) 12/28/18 06:30 Hgb 9.3 GM/dL (10.7-15.3) L 12/28/18 06:30 Hct 28.7 % (32.4-45.2) L 12/28/18 06:30 MCV 76.3 fl (80-96) L 12/28/18 06:30 MCHC 32.5 g/dl (32.0-36.0) 12/28/18 06:30 RDW 20.8 % (11.6-15.6) H 12/28/18 06:30 Plt Count 481 K/MM3 (134-434) H 12/28/18 06:30 MPV 7.0 fl (7.5-11.1) L 12/28/18 06:30 CMP Sodium 138 mmol/L (136-145) 12/28/18 06:30 Potassium 4.4 mmol/L (3.5-5.1) 12/28/18 06:30 Chloride 108 mmol/L (98-107) H 12/28/18 06:30 Carbon Dioxide 22 mmol/L (21-32) 12/28/18 06:30 Anion Gap 8 MMOL/L (8-16) 12/28/18 06:30 BUN 22 mg/dL (7-18) H 12/28/18 06:30 Creatinine 0.8 mg/dL (0.55-1.3) 12/28/18 06:30 Creat Clearance w eGFR 72.44 (>60) 12/28/18 06:30 Calcium 8.1 mg/dL (8.5-10.1) L 12/28/18 06:30 Total Bilirubin 0.1 mg/dL (0.2-1) L 12/28/18 06:30 AST 14 U/L (15-37) L 12/28/18 06:30 ALT 17 U/L (13-61) 12/28/18 06:30 Alkaline Phosphatase 141 U/L (45-117) H 12/28/18 06:30 Total Protein 6.3 g/dl (6.4-8.2) L 12/28/18 06:30 Albumin 2.2 g/dl (3.4-5.0) L 12/28/18 06:30 Microbiology 12/24/18 10:00 Hip - Left Gram Stain - Final 12/24/18 10:00 Hip - Left Wound Culture - Final NO GROWTH AFTER 48 HOURS INCUBATION 12/17/18 16:00 Hip - Left Gram Stain - Final 12/17/18 16:00 Hip - Left Wound Culture - Preliminary Escherichia Coli Enterococcus Raffinosus 12/14/18 14:45 Blood - Peripheral Venous Blood Culture - Final NO GROWTH AFTER 5 DAYS INCUBATION 12/10/18 20:57 Hip - Left Gram Stain - Final 12/10/18 20:57 Hip - Left Wound Culture - Final Enterococcus Faecalis Escherichia Coli Vanco Resistant Enterococcus 12/10/18 21:15 Tissue-Other Gram Stain - Final 12/10/18 21:15 Tissue-Other Tissue Culture - Final Escherichia Coli Esbl Medical [employer] Vr Ec Faecalis Diphtheroid/Corynebacterium 12/10/18 21:15 Tissue-Other Anaerobic Culture - Final NO ANAEROBES WERE ISOLATED 12/07/18 21:00 Hip - Left Gram Stain - Final 12/07/18 21:00 Hip - Left Wound Culture - Final Escherichia Coli Esbl Medical [employer] Enterococcus Faecalis 12/01/18 10:45 Blood - Peripheral Venous Blood Culture - Final NO GROWTH AFTER 5 DAYS INCUBATION 12/01/18 10:50 Blood - Peripheral Venous Blood Culture - Final NO GROWTH AFTER 5 DAYS INCUBATION 12/03/18 12:35 Hip - Left Gram Stain - Final 12/03/18 12:35 Hip - Left Wound Culture - Final Staphylococcus Coagulase Neg Non Lactose Fermenting Gnb Group D Strep Or Entero Coccus 12/03/18 12:35 Hip - Left Gram Stain - Final 12/03/18 12:35 Hip - Left Wound Culture - Final Staphylococcus Coagulase Neg Escherichia Coli Enterococcus Faecalis 11/29/18 07:00 Blood - Peripheral Venous Blood Culture - Final NO GROWTH AFTER 5 DAYS INCUBATION 11/29/18 06:30 Blood - Peripheral Venous Blood Culture - Final NO GROWTH AFTER 5 DAYS INCUBATION 11/30/18 18:00 Urine - Urine - Catheterized Urine Culture - Final NO GROWTH OBTAINED 11/26/18 23:00 Hip - Left Gram Stain - Final 11/26/18 23:00 Hip - Left Wound Culture - Final Escherichia Coli Enterococcus Faecalis 11/26/18 23:00 Hip - Left Gram Stain - Final 11/26/18 23:00 Hip - Left Wound Culture - Final Escherichia Coli Enterococcus Faecalis 11/23/18 13:58 Abscess Gram Stain - Final 11/23/18 13:58 Abscess Wound Culture - Final Non Lactose Fermenting Gnb Group D Strep Or Entero Coccus Diphtheroid/Corynebacterium 11/23/18 13:55 Abscess Gram Stain - Final 11/23/18 13:55 Abscess Wound Culture - Final Escherichia Coli Enterococcus Faecalis Diphtheroid/Corynebacterium 11/19/18 15:00 Hip - Left Gram Stain - Final 11/19/18 15:00 Hip - Left Wound Culture - Final Staphylococcus Coagulase Neg Diphtheroid/Corynebacterium Group D Strep Or Entero Coccus Escherichia Coli 11/19/18 15:00 Hip - Left Gram Stain - Final 11/19/18 15:00 Hip - Left Wound Culture - Final Staphylococcus Coagulase Neg Diphtheroid/Corynebacterium Gamma Hemolytic Streptococcus Escherichia Coli A/P 63yo F with PMH depression, HTN, chronic pain, urinary retention presented to the hospital for L hip wound and was taken to the OR for L hip washout and wound vac was applied 1. Chronic left hip wound-with ESBL E coli and E Faecalis growing from the wound. - s/p I&D left hip wound; debridement of soft tissue, muscle, bone; VAC application on 11/19 - s/p I&D and washout left hip wound; VAC reapplication on 11/23 - s/p washout left hip wound and VAC reapplication on 11/26 - s/p I&D and debridement left hip wound on 12/03 - s/p I&D and debridement left hip wound on 12/07 - s/p osteotomy left femur; removal of hardware (explant femoral component); I&D left hip wound; partial removal of cement mantle; exchange left hip wound vac on 12/10 - s/p I&D, wound VAC exchange on 12/17 - s/p I&D, wound VAC exchange on 12/24 is planned for wound closure with plastics to evaluate for primary vs flap vs delayed with wound vac. on ertapenem and Daptomycin. has PICC as will need prolonged abx. vac management per ortho plan is for [place] for wound care 2. constipation-likely opiate induced. will give reslistro. cont stool softeners 3. Acute blood loss anemia- s/p 4 unit PRBC this hospital stay. on iron supplements. normal txn thresholds. 4. HTN- normotensive off home medications. cont to hold 5. Depression with anxiety- Continue Cymbalta, Valium as needed 6. Urinary incontinence- Continue Ditropan 7. Chronic back and left hip pain- Continue Lyrica, Flexeril, Cynbalta, OxyContin, oxycodone as needed 8. Severe malnutrition- cont supplements 9. DVT ppx- SCD 10. Pt wants to go home. Wants to speak with ortho to get idea of remaining plan and wants to go home and continue treatment and return prn for procedures. will need to determine plan from ortho. if there is no immediate plan for wound closure could possible be d/c and return for treatments. Visit type - Emergency Visit Emergency Visit: Yes ED Registration Date: 11/19/18 Care time: The patient presented to the Emergency Department on the above date and was hospitalized for further evaluation of their emergent condition. - New Patient This patient is new to me today: No - Critical Care Critical Care patient: No - Discharge Referral Referred to [facility] Med P.C.: No
[2018-12-28] MEDS: oxyCODONE HCL 80 MG SUSTAINED ACTING TABLET PO SCH (11:10)
[2018-12-28] MEDS: Methylnaltrexone Bromide 12 MG/0.6 ML KIT SQ SCH (12:04)
[2018-12-28] MEDS: DAPTOMYCIN 500 MG in SODIUM CHLORIDE 50 ML IVPB SCH (16:47)
--- NOTE | 2018-12-28 16:48 | PN ---
Progress Note (short form) - Note Progress Note: NAD, wants to go home explant 12/10 Vital Signs Period Temp Pulse Resp BP Sys/Vargas Pulse Ox Last 24 Hr 98.3 F-98.4 F 85-98 18-20 110-122/59-82 100 cor-rrr lungs -clear abd soft,nt ext vac in place CBC, BMP 12/28/18 06:30 12/28/18 06:30 Laboratory Tests 12/01/18 12/01/18 12/19/18 06:00 06:00 06:30 ESR 112 H C-Reactive Protein 11.0 H 8.8 H 12/19/18 12/28/18 06:30 06:30 ESR 108 H 98 H C-Reactive Protein cpk 38 a/p afebrile, inflamatory markers slowly trending down chronically infected hip hardware now out would target treatment to operative pathogens including ecoli esbl, VREF now that hardware is out- this is finally a chance for cure if there is no remaining hardware continue daptomycin and ertapenem esr, crp weeklsy d/w ortho- plan for picc line and iv antiiboitcs daptomycin and ertapenem- minimum 8 weeks, will need to follow esr/crp to determine duration of antibiotic treatment- generally treat until esr/crp normalize-may need much longer then 8 weeks check cpk weekly suggest transfer her care to [place] if she goes home with iv antibioitcs as it will not be possible for us to follow her here as she lives in the [place]- she has had f/u with ID in the [place] before continue contact isolation
[2018-12-28] MEDS: LIDOCAINE PATCH REMOVAL MC SCH (21:50)
[2018-12-28] MEDS ORDERED: oxyCODONE HCL 5 MG TABLET PO PRN (22:31)
[2018-12-29] MEDS: PREGABALIN 100 MG CAPSULE PO SCH ×3 (05:11→21:28)
[2018-12-29] MEDS: DOCUSATE SODIUM 100 MG CAPSULE (FP) PO SCH ×3 (05:11→21:28)
[2018-12-29] MEDS: OXYBUTYNIN CHLORIDE 5 MG TABLET PO SCH ×3 (05:11→21:28)
[2018-12-29] MEDS: oxyCODONE HCL 5 MG TABLET PO PRN ×4 (05:11→17:39)
--- NOTE | 2018-12-29 07:57 | PN ---
Physical Exam: SUBJECTIVE: Patient seen and examined, She has no complaints at this time, no over night events OBJECTIVE: Vital Signs Period Temp Pulse Resp BP Sys/Vargas Pulse Ox Last 24 Hr 97.8 F-99.3 F 85-102 18-20 122-130/63-76 100 GENERAL: The patient is awake, alert, and fully oriented, in no acute distress. CVS:S1S2 CTAB Abd:BS+NT/ND ext: Has dressing on the R hip, not tender. Sitting in the bed, wearing make up Laboratory Results - last 24 hr 12/28/18 12/28/18 12/28/18 06:30 06:30 06:30 WBC 10.7 H RBC 3.76 Hgb 9.3 L Hct 28.7 L MCV 76.3 L MCH 24.8 L MCHC 32.5 RDW 20.8 H Plt Count 481 H MPV 7.0 L ESR 98 H Sodium 138 Potassium 4.4 Chloride 108 H Carbon Dioxide 22 Anion Gap 8 BUN 22 H Creatinine 0.8 Creat Clearance w eGFR 72.44 Random Glucose 100 Calcium 8.1 L Magnesium 2.1 Total Bilirubin 0.1 L AST 14 L ALT 17 Alkaline Phosphatase 141 H Creatine Kinase 38 Total Protein 6.3 L Albumin 2.2 L Active Medications Generic Name Dose Route Start Last Admin Trade Name Freq PRN Reason Stop Dose Admin Al Hydroxide/Mg Hydroxide 30 ml 12/24/18 12:26 Mylanta Oral Suspension - PO Q6HPO PRN DYSPEPSIA Amino Acids 30 ml 12/24/18 17:30 12/28/18 16:48 Prosource No Carb Liquid Pkt PO 30 ml BID@0800,1730 ELKE Administration Aspirin 325 mg 12/25/18 10:00 12/28/18 10:48 Ecotrin - PO 325 mg DAILY ELKE Administration Cyclobenzaprine HCl 5 mg 12/25/18 10:00 12/28/18 10:48 Cyclobenzaprine Hcl PO 5 mg DAILY ELKE Administration Docusate Sodium 100 mg 12/24/18 14:00 12/29/18 05:11 Colace - PO 100 mg TID ELKE Administration Duloxetine HCl 30 mg 12/24/18 22:00 12/28/18 21:50 Cymbalta - PO 30 mg BID ELKE Administration Ferrous Sulfate 325 mg 12/24/18 17:30 12/28/18 16:48 Feosol - PO 325 mg BIDWM ELKE Administration Daptomycin 500 mg/ Sodium 50 mls @ 50 mls/hr 12/24/18 17:30 12/28/18 16:47 Chloride IVPB 50 mls/hr Q24H ELKE Administration Protocol Ertapenem 1 gm/ Sodium 50 mls @ 100 mls/hr 12/25/18 10:00 12/28/18 10:48 Chloride IVPB 100 mls/hr DAILY ELKE Administration Lidocaine 1 patch 12/25/18 10:00 12/28/18 10:47 Lidoderm Patch - TP 1 patch DAILY ELKE Administration Methylnaltrexone [place] 8 mg 12/28/18 11:45 12/28/18 12:04 Relistor - SQ 8 mg Q2D@1000 ELKE Administration Miscellaneous 1 each 12/24/18 22:00 12/28/18 21:50 Lidoderm Patch Removal MC 1 each DAILY@2200 ELKE Administration Ondansetron HCl 4 mg 12/24/18 12:26 Zofran Injection IVPUSH Q6H PRN NAUSEA AND/OR VOMITING Oxybutynin Chloride 5 mg 12/24/18 14:00 12/29/18 05:11 Ditropan - PO 5 mg TID ELKE Administration Oxycodone HCl 80 mg 12/28/18 11:00 12/28/18 21:49 Oxycontin - PO 80 mg BID ELKE Administration Oxycodone HCl 30 mg 12/28/18 23:00 12/29/18 05:11 Roxicodone - PO 30 mg Q4H PRN Administration PAIN LEVEL 7 - 10 Pantoprazole Sodium 40 mg 12/25/18 10:00 12/28/18 10:48 Protonix - PO 40 mg DAILY ELKE Administration Polyethylene Glycol 17 gm 12/25/18 10:00 12/28/18 10:49 Miralax (For Daily Use) - PO Not Given DAILY [facility]KE Pregabalin 100 mg 12/24/18 14:00 12/29/18 05:11 Lyrica - PO 100 mg TID ELKE Administration Senna 2 tab 12/24/18 12:26 Senna - PO HS PRN CONSTIPATION Simethicone 40 mg 12/24/18 12:26 Mylicon Liquid - PO Q6H PRN INDIGESTION ASSESSMENT/PLAN: Hip OM now S/P removal of the implant:Been afebrile and ESR, CRP is improving Per Id notes: Will need long-term IV antibiotics till normalization of the ESR and CRP which may take more than 8 weeks, recommended to be followed up by [facility] on DC for further management. continue daptomycin and ertapenem esr, crp weeklsy check cpk weekly continue contact isolation 2. constipation-likely opiate induced. will give reslistro. cont stool softeners 3. Acute blood loss anemia- s/p 4 unit PRBC this hospital stay. on iron supplements. normal txn thresholds. stable at this time. 4. HTN- normotensive off home medications. cont to hold 5. Depression with anxiety- Continue Cymbalta, Valium as needed, no SI, no HI, mood is fine at this time. 6. Urinary incontinence- Continue Ditropan 7. Chronic back and left hip pain- Continue Lyrica, Flexeril, Cynbalta, OxyContin, oxycodone as needed 8. Severe malnutrition- cont supplements 9. DVT ppx- SCD 10: tachycardia: in the setting of pain intermittently, not hypoxic, no complaints of chest pain or sob, Can be in the setting of sepsis which is resolving, if persistent can consider V/Q scan 10. Pt wants to go home. Wants to speak with ortho to get idea of remaining plan and wants to go home and continue treatment and return prn for procedures. will need to determine plan from ortho. if there is no immediate plan for wound closure could possible be d/c and return for treatments. Visit type - Emergency Visit Emergency Visit: Yes ED Registration Date: 11/19/18 Care time: The patient presented to the Emergency Department on the above date and was hospitalized for further evaluation of their emergent condition. - New Patient This patient is new to me today: Yes Date on this admission: 12/29/18 - Critical Care Critical Care patient: No - Discharge Referral Referred to [facility] Med P.C.: No
[2018-12-29] MEDS: AMINO ACIDS/PROTEIN HYDROLYS 30 ML LIQUID.PKT PO SCH ×2 (08:55→17:39)
[2018-12-29] MEDS: FERROUS SO4 325 MG TABLET (FP) PO SCH ×2 (08:57→17:39)
[2018-12-29] MEDS ORDERED: PT OWN MED DRAWER 7, Y5N ONE (10:14)
[2018-12-29] MEDS: ERTAPENEM SODIUM 1 GM in SODIUM CHLORIDE 50 ML IVPB SCH (10:17)
[2018-12-29] MEDS: LIDOCAINE 5% TOPICAL PATCH TP SCH (10:17)
[2018-12-29] MEDS: oxyCODONE HCL 40 MG SUSTAINED ACTING TABLET PO SCH ×2 (10:18→21:28)
[2018-12-29] MEDS: POLYETHYLENE GLYCOL 3350 119 GM BTL PO SCH (10:19)
[2018-12-29] MEDS: PANTOPRAZOLE 40 MG TABLET (FP) PO SCH (10:19)
[2018-12-29] MEDS: ASPIRIN 325 MG ENTERIC COATED TABLET (FP) PO SCH (10:19)
[2018-12-29] MEDS: CYCLOBENZAPRINE HCL 5 MG TABLET PO SCH (10:20)
[2018-12-29] MEDS: DULoxetine HCL 30 MG CAPSULE.DR (FP) PO SCH ×2 (10:20→21:28)
[2018-12-29] MEDS ORDERED: diphenhydrAMINE HCL 25 MG CAPSULE (FP) PO PRN (12:04)
--- NOTE | 2018-12-29 14:26 | PN ---
Progress Note (short form) - Note Progress Note: Apyrexial Wound vac working PLAN Monday for OR combined wound and plastic surgery intraop evaluation with a view to attempt at closure vs continued VAC and secondary intension healing Keep NPO from midnight Monday
[2018-12-29] MEDS: DAPTOMYCIN 500 MG in SODIUM CHLORIDE 50 ML IVPB SCH (17:39)
[2018-12-29] MEDS: LIDOCAINE PATCH REMOVAL MC SCH (21:30)
[2018-12-30] MEDS: DOCUSATE SODIUM 100 MG CAPSULE (FP) PO SCH ×3 (06:06→21:58)
[2018-12-30] MEDS: PREGABALIN 100 MG CAPSULE PO SCH ×3 (06:06→21:58)
[2018-12-30] MEDS: OXYBUTYNIN CHLORIDE 5 MG TABLET PO SCH ×3 (06:06→21:58)
[2018-12-30] MEDS: oxyCODONE HCL 5 MG TABLET PO PRN ×4 (06:09→19:55)
[2018-12-30] MEDS: AMINO ACIDS/PROTEIN HYDROLYS 30 ML LIQUID.PKT PO SCH ×2 (08:43→17:20)
[2018-12-30] MEDS: FERROUS SO4 325 MG TABLET (FP) PO SCH ×2 (08:44→17:20)
[2018-12-30] MEDS ORDERED: Methylnaltrexone Bromide 12 MG/0.6 ML KIT SQ SCH (10:00)
[2018-12-30] MEDS ORDERED: PT OWN MED DRAWER 7, Y5N ONE (10:42)
[2018-12-30] MEDS: Methylnaltrexone Bromide 12 MG/0.6 ML KIT SQ SCH (10:44)
[2018-12-30] MEDS: CYCLOBENZAPRINE HCL 5 MG TABLET PO SCH (10:45)
[2018-12-30] MEDS: DULoxetine HCL 30 MG CAPSULE.DR (FP) PO SCH ×2 (10:45→21:58)
[2018-12-30] MEDS: ERTAPENEM SODIUM 1 GM in SODIUM CHLORIDE 50 ML IVPB SCH (10:45)
[2018-12-30] MEDS: ASPIRIN 325 MG ENTERIC COATED TABLET (FP) PO SCH (10:45)
[2018-12-30] MEDS: PANTOPRAZOLE 40 MG TABLET (FP) PO SCH (10:45)
[2018-12-30] MEDS: POLYETHYLENE GLYCOL 3350 119 GM BTL PO SCH (10:46)
[2018-12-30] MEDS: LIDOCAINE 5% TOPICAL PATCH TP SCH (10:46)
[2018-12-30] MEDS: oxyCODONE HCL 40 MG SUSTAINED ACTING TABLET PO SCH ×2 (12:16→21:58)
--- NOTE | 2018-12-30 15:03 | PN ---
Physical Exam: SUBJECTIVE: Patient seen and examined OBJECTIVE: Vital Signs Period Temp Pulse Resp BP Sys/Vargas Pulse Ox Last 24 Hr 97 F-98.7 F 100-111 18-18 119-125/71-77 100 She is in no distress at this time Active Medications Generic Name Dose Route Start Last Admin Trade Name Freq PRN Reason Stop Dose Admin Al Hydroxide/Mg Hydroxide 30 ml 12/24/18 12:26 Mylanta Oral Suspension - PO Q6HPO PRN DYSPEPSIA Amino Acids 30 ml 12/24/18 17:30 12/30/18 08:43 Prosource No Carb Liquid Pkt PO 30 ml BID@0800,1730 ELKE Administration Aspirin 325 mg 12/25/18 10:00 12/30/18 10:45 Ecotrin - PO 325 mg DAILY [facility]KE Administration Cyclobenzaprine HCl 5 mg 12/25/18 10:00 12/30/18 10:45 Cyclobenzaprine Hcl PO 5 mg DAILY [facility] Administration Diphenhydramine HCl 25 mg 12/29/18 12:04 Benadryl - PO HS PRN INSOMNIA Docusate Sodium 100 mg 12/24/18 14:00 12/30/18 15:00 Colace - PO 100 mg TID ELKE Administration Duloxetine HCl 30 mg 12/24/18 22:00 12/30/18 10:45 Cymbalta - PO 30 mg BID ELKE Administration Ferrous Sulfate 325 mg 12/24/18 17:30 12/30/18 08:44 Feosol - PO 325 mg BIDWM ELKE Administration Daptomycin 500 mg/ Sodium 50 mls @ 50 mls/hr 12/24/18 17:30 12/29/18 17:39 Chloride IVPB 50 mls/hr Q24H [facility]KE Administration Protocol Ertapenem 1 gm/ Sodium 50 mls @ 100 mls/hr 12/25/18 10:00 12/30/18 10:45 Chloride IVPB 100 mls/hr DAILY [facility] Administration Lidocaine 1 patch 12/25/18 10:00 12/30/18 10:46 Lidoderm Patch - TP 1 patch DAILY [facility] Administration Methylnaltrexone [place] 8 mg 12/28/18 11:45 12/30/18 10:44 Relistor - SQ Not Given Q2D@1000 ELKE Miscellaneous 1 each 12/24/18 22:00 04/13/19 21:30 Lidoderm Patch Removal MC 1 each DAILY@2200 [facility]KE Administration Ondansetron HCl 4 mg 12/24/18 12:26 Zofran Injection IVPUSH Q6H PRN NAUSEA AND/OR VOMITING Oxybutynin Chloride 5 mg 12/24/18 14:00 12/30/18 15:00 Ditropan - PO 5 mg TID ELKE Administration Oxycodone HCl 80 mg 12/28/18 11:00 12/30/18 12:16 Oxycontin - PO 80 mg BID ELKE Administration Oxycodone HCl 30 mg 12/28/18 23:00 12/30/18 15:00 Roxicodone - PO 30 mg Q4H PRN Administration PAIN LEVEL 7 - 10 Pantoprazole Sodium 40 mg 12/25/18 10:00 12/30/18 10:45 Protonix - PO 40 mg DAILY [facility] Administration Polyethylene Glycol 17 gm 12/25/18 10:00 12/30/18 10:46 Miralax (For Daily Use) - PO Not Given DAILY [facility] Pregabalin 100 mg 12/24/18 14:00 12/30/18 06:06 Lyrica - PO 100 mg TID [facility] Administration Senna 2 tab 12/24/18 12:26 Senna - PO HS PRN CONSTIPATION Simethicone 40 mg 12/24/18 12:26 Mylicon Liquid - PO Q6H PRN INDIGESTION ASSESSMENT/PLAN:
[2018-12-30] MEDS: DAPTOMYCIN 500 MG in SODIUM CHLORIDE 50 ML IVPB SCH (18:25)
[2018-12-30] MEDS: LIDOCAINE PATCH REMOVAL MC SCH (21:59)
[2018-12-31] MEDS: oxyCODONE HCL 5 MG TABLET PO PRN ×5 (00:05→21:19)
[2018-12-31] MEDS: PREGABALIN 100 MG CAPSULE PO SCH ×4 (05:44→22:12)
[2018-12-31] MEDS: OXYBUTYNIN CHLORIDE 5 MG TABLET PO SCH ×4 (05:44→22:12)
[2018-12-31] MEDS: DOCUSATE SODIUM 100 MG CAPSULE (FP) PO SCH ×4 (05:44→22:12)
[2018-12-31] MEDS: AMINO ACIDS/PROTEIN HYDROLYS 30 ML LIQUID.PKT PO SCH ×2 (08:34→17:16)
[2018-12-31] MEDS: FERROUS SO4 325 MG TABLET (FP) PO SCH ×2 (08:34→17:16)
[2018-12-31 08:36] LABS: BASO % 1.3 % (0-2.0); EOS % 11.6 % (0-4.5); HEMATOCRIT 27.1 % (32.4-45.2); HEMOGLOBIN 8.8 GM/dL (10.7-15.3); LYMPH % 16.1 % (8-40); MCH 24.5 pg (25.7-33.7); MCHC 32.4 g/dl (32.0-36.0); MEAN CELL VOLUME 75.9 fl (80-96); MEAN PLT VOLUME 7.1 fl (7.5-11.1); MONO % 7.3 % (3.8-10.2); NEUT % 63.7 % (42.8-82.8); PLATELET COUNT 451 K/MM3 (134-434); RBC 3.57 M/mm3 (3.60-5.2); RDW 20.8 % (11.6-15.6)
[2018-12-31 09:01] LABS: ANION GAP 5 MMOL/L (8-16); BLOOD UREA NITROGEN 21 mg/dL (7-18); CHLORIDE 110 mmol/L (98-107); CO2 24 mmol/L (21-32); CREATININE 0.9 mg/dL (0.55-1.3); GLUCOSE,RANDOM 112 mg/dL (74-106); MAGNESIUM 2.2 mg/dL (1.8-2.4); SODIUM 140 mmol/L (136-145)
[2018-12-31] MEDS ORDERED: PT OWN MED DRAWER 7, Y5N ONE ×2 (09:59→17:07)
[2018-12-31] MEDS: ERTAPENEM SODIUM 1 GM in SODIUM CHLORIDE 50 ML IVPB SCH (10:01)
[2018-12-31] MEDS: LIDOCAINE 5% TOPICAL PATCH TP SCH (10:01)
[2018-12-31] MEDS: ASPIRIN 325 MG ENTERIC COATED TABLET (FP) PO SCH (10:03)
[2018-12-31] MEDS: POLYETHYLENE GLYCOL 3350 119 GM BTL PO SCH (10:03)
[2018-12-31] MEDS: PANTOPRAZOLE 40 MG TABLET (FP) PO SCH (10:03)
[2018-12-31] MEDS: DULoxetine HCL 30 MG CAPSULE.DR (FP) PO SCH ×2 (10:03→22:12)
[2018-12-31] MEDS: CYCLOBENZAPRINE HCL 5 MG TABLET PO SCH (10:03)
[2018-12-31] MEDS: oxyCODONE HCL 40 MG SUSTAINED ACTING TABLET PO SCH ×2 (10:53→22:12)
[2018-12-31] MEDS ORDERED: PROPOFOL 20 ML ONE (12:10)
[2018-12-31] MEDS ORDERED: SUCCINYLCHOLINE CHLORIDE 200 MG/10 ML VIAL ONE (12:10)
[2018-12-31] MEDS ORDERED: fentaNYL CITRATE 250 MCG/5 ML VIAL ONE (12:10)
[2018-12-31] MEDS ORDERED: ROCURONIUM BROMIDE 50 MG/5 ML VIAL ONE (12:10)
[2018-12-31] MEDS ORDERED: MIDAZOLAM HCL 2 MG/2 ML SINGLE DOSE VIAL ONE (12:10)
[2018-12-31] MEDS ORDERED: DEXAMETHASONE SOD PHOSPHATE 4 MG/1 ML VIAL ONE (12:12)
[2018-12-31] MEDS ORDERED: LIDOCAINE HCL/PF 2% SDV 5ML VIAL ONE (12:12)
--- NOTE | 2018-12-31 12:20 | PN ---
Progress Note, Physician Chief Complaint: No new complaints denies any fever , chills, History of Present Illness: 63yo F with PMH depression, HTN, chronic pain, urinary retention presented to the hospital for L hip wound and was taken to the OR for L hip washout and wound vac was applied. schedule for left HIP I and D - Current Medication List Current Medications: Active Medications Al Hydroxide/Mg Hydroxide (Mylanta Oral Suspension -) 30 ml PO Q6HPO PRN PRN Reason: DYSPEPSIA Amino Acids (Prosource No Carb Liquid Pkt) 30 ml PO BID@0800,1730 [facility] Last Admin: 12/31/18 08:34 Dose: 30 ml Aspirin (Ecotrin -) 325 mg PO DAILY [facility] Last Admin: 12/31/18 10:03 Dose: 325 mg Cyclobenzaprine HCl (Cyclobenzaprine Hcl) 5 mg PO DAILY [facility] Last Admin: 12/31/18 10:03 Dose: 5 mg Diphenhydramine HCl (Benadryl -) 25 mg PO HS PRN PRN Reason: INSOMNIA Last Admin: 12/30/18 19:55 Dose: 25 mg Docusate Sodium (Colace -) 100 mg PO TID [facility] Last Admin: 12/31/18 05:44 Dose: 100 mg Duloxetine HCl (Cymbalta -) 30 mg PO BID [facility] Last Admin: 12/31/18 10:03 Dose: 30 mg Ferrous Sulfate (Feosol -) 325 mg PO BIDWM [facility] Last Admin: 12/31/18 08:34 Dose: 325 mg Daptomycin 500 mg/ Sodium (Chloride) 50 mls @ 50 mls/hr IVPB Q24H [facility]; Protocol Last Admin: 12/30/18 18:25 Dose: 50 mls/hr Ertapenem 1 gm/ Sodium (Chloride) 50 mls @ 100 mls/hr IVPB DAILY [facility] Last Admin: 12/31/18 10:01 Dose: 100 mls/hr Lidocaine (Lidoderm Patch -) 1 patch TP DAILY [facility] Last Admin: 12/31/18 10:01 Dose: 1 patch Methylnaltrexone [place] (Relistor -) 8 mg SQ Q2D@1000 [facility] Last Admin: 12/30/18 10:44 Dose: Not Given Miscellaneous (Lidoderm Patch Removal) 1 each MC DAILY@2200 [facility] Last Admin: 12/30/18 21:59 Dose: 1 each Ondansetron HCl (Zofran Injection) 4 mg IVPUSH Q6H PRN PRN Reason: NAUSEA AND/OR VOMITING Oxybutynin Chloride (Ditropan -) 5 mg PO TID [facility] Last Admin: 12/31/18 05:44 Dose: 5 mg Oxycodone HCl (Oxycontin -) 80 mg PO BID [facility] Last Admin: 12/31/18 10:53 Dose: 80 mg Oxycodone HCl (Roxicodone -) 30 mg PO Q4H PRN PRN Reason: PAIN LEVEL 7 - 10 Last Admin: 12/31/18 10:20 Dose: 30 mg Pantoprazole Sodium (Protonix -) 40 mg PO DAILY [facility] Last Admin: 12/31/18 10:03 Dose: 40 mg Polyethylene Glycol (Miralax (For Daily Use) -) 17 gm PO DAILY [facility] Last Admin: 12/31/18 10:03 Dose: Not Given Pregabalin (Lyrica -) 100 mg PO TID [facility] Last Admin: 12/31/18 05:44 Dose: 100 mg Senna (Senna -) 2 tab PO HS PRN PRN Reason: CONSTIPATION Simethicone (Mylicon Liquid -) 40 mg PO Q6H PRN PRN Reason: INDIGESTION - Objective Vital Signs: Vital Signs Temperature 98.1 F 12/31/18 10:00 Pulse Rate 95 H 12/31/18 10:00 Respiratory Rate 18 12/31/18 10:00 Blood Pressure 106/68 12/31/18 10:00 O2 Sat by Pulse Oximetry (%) 94 L 12/31/18 09:00 Constitutional: Yes: Well Nourished, No Distress HEENT: Yes: Atraumatic, Normocephalic Neck: Yes: Supple, Trachea Midline Cardiovascular: Yes: Regular Rate and Rhythm, S1, S2 Respiratory: Yes: Regular, CTA Bilaterally Gastrointestinal: Yes: Normal Bowel Sounds, Soft Musculoskeletal: Yes: Other (Left Hip wound Vac) EDEMA + Peripheral Pulses: Right Radial: 1+, Left Doralis Pedis: 1+Neurological: Yes: WNL, Alert, Oriented, Motor Strength: WNL, LUE, LLE, RUE Labs: CBC, BMP 12/31/18 08:20 12/31/18 08:20 INR, PTT INR 1.06 (0.83-1.09) 12/24/18 06:45 Problem List - Problems (1) Wound, open, hip or thigh Assessment/Plan: 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 pain control. will need VNS for wound vac management Code(s): [id number] - (2) HTN (hypertension) Assessment/Plan: Well controlled control BP meds on Hold Code(s): I10 - ESSENTIAL (PRIMARY) HYPERTENSION (3) Depression Assessment/Plan: At present Euthymic Continue Cymbalta, Valium as needed. Code(s): F32.9 - MAJOR DEPRESSIVE DISORDER, SINGLE EPISODE, UNSPECIFIED (4) Chronic pain Assessment/Plan: cont Pian meds Code(s): G89.29 - OTHER CHRONIC PAIN (5) Anemia Assessment/Plan: Aute blood loss anemia- s/p 3 unit PRBC F/U H/H Code(s): D64.9 - ANEMIA, UNSPECIFIED (6) Urinary incontinence Assessment/Plan: Cont Ditropan Code(s): R32 - UNSPECIFIED URINARY INCONTINENCE (7) Thrombocytosis Assessment/Plan: Reactive due to chronic infection. Code(s): D47.3 - ESSENTIAL (HEMORRHAGIC) THROMBOCYTHEMIA (8) Sepsis Assessment/Plan: Spiked fever tachycardia, culture is growing ESBL E Colli and Enterococus, will start IV Meropenem, blood culture ID consult and Sr Lactic acid, IV hydration.DC PO meds Code(s): A41.9 - SEPSIS, UNSPECIFIED ORGANISM
[2018-12-31 12:34] LABS: ANISOCYTOSIS 1+; MACROCYTOSIS 0; PLATELET ESTIMATE NORMAL
--- NOTE | 2018-12-31 13:08 | OP ---
Operative Note - Note: Operative Date: 12/31/18 Pre-Operative Diagnosis: Left hip wound Operation: I&D with vac exchange left hip Findings: Wound dimensions: Length - 15cm Width - 6cm Depth - 10cm Surgeon: Albert Moya Anesthesiologist/FOOT DOCTOR: Ethan Rollins Anesthesia: General Estimated Blood Loss (mls): 0 Drains & Tubes with Location: Left hip woundvac Fluid Volume Replaced (mls): 200 (Crystalloid) Operative Report Dictated: Yes
[2018-12-31] MEDS ORDERED: ONDANSETRON 4 MG/2 ML VIAL IVPUSH PRN ×2 (13:21→13:36)
[2018-12-31] MEDS ORDERED: MAG HYDROX/AL HYDROX/SIMETH 30 ML UNIT-DOSE CUP PO PRN (13:36)
[2018-12-31] MEDS ORDERED: SIMETHICONE 40 MG/0.6 ML BOTTLE PO PRN (13:36)
[2018-12-31] MEDS: DAPTOMYCIN 500 MG in SODIUM CHLORIDE 50 ML IVPB SCH (17:17)
[2018-12-31] MEDS ORDERED: diphenhydrAMINE HCL 25 MG CAPSULE (FP) PO PRN (22:00)
[2018-12-31] MEDS ORDERED: LIDOCAINE PATCH REMOVAL MC SCH (22:00)
[2018-12-31] MEDS ORDERED: SENNOSIDES 8.6MG TABLET (FP) PO PRN (22:00)
[2018-12-31] MEDS: LIDOCAINE PATCH REMOVAL MC SCH (22:13)
--- NOTE | 2018-12-31 22:36 | OP ---
DATE OF OPERATION: DATE OF DICTATION: 12/31/2018 SURGEON: Albert Moya MD LUMBER MARKER: Gelacio Moya MD PREOPERATIVE DIAGNOSIS: Chronic septic hip wound, for Wound VAC change under general anesthesia. The patient, in the lateral view position, with left side up, under general anesthesia, the left lower extremity was prepped, draped in the routine manner with Betadine scrub solution, wiped off with alcohol, DuraPrep applied. The original Wound VAC was removed. The tissues appear healthy, granulating, and definite marked closure of this wound noted again; slowly progressing to be closing. Unfortunately, I can approximate the soft tissues readily, but the hardness of the tissues below precludes the ability to collapse the space and I have elected to continue the Wound VAC at this stage. I have discussed the case with Plastic Surgery, who agrees that this should continue as such. Repeat cultures were taken today. Patient is on antibiotics. Continue with chronic wound care. Repeat new Wound VAC inserted. The patient was extricated out of the operating room with no complications. Albert Moya MD [id number]
[2019-01-01] MEDS: oxyCODONE HCL 5 MG TABLET PO PRN ×6 (01:01→22:53)
[2019-01-01] MEDS: DOCUSATE SODIUM 100 MG CAPSULE (FP) PO SCH ×3 (05:32→21:26)
[2019-01-01] MEDS: PREGABALIN 100 MG CAPSULE PO SCH ×3 (05:32→21:29)
[2019-01-01] MEDS: OXYBUTYNIN CHLORIDE 5 MG TABLET PO SCH ×3 (05:32→21:26)
[2019-01-01 07:36] LABS: BASO % 0.8 % (0-2.0); EOS % 4.3 % (0-4.5); HEMATOCRIT 26.2 % (32.4-45.2); HEMOGLOBIN 8.8 GM/dL (10.7-15.3); LYMPH % 13.9 % (8-40); MCH 25.5 pg (25.7-33.7); MCHC 33.7 g/dl (32.0-36.0); MEAN CELL VOLUME 75.7 fl (80-96); MEAN PLT VOLUME 7.3 fl (7.5-11.1); MONO % 6.2 % (3.8-10.2); NEUT % 74.8 % (42.8-82.8); PLATELET COUNT 448 K/MM3 (134-434); RBC 3.47 M/mm3 (3.60-5.2); RDW 20.3 % (11.6-15.6); WHITE BLOOD COUNT 9.8 K/mm3 (4.0-10.0)
[2019-01-01 08:17] LABS: ANION GAP 4 MMOL/L (8-16); BLOOD UREA NITROGEN 22 mg/dL (7-18); CALCIUM 8.4 mg/dL (8.5-10.1); CHLORIDE 110 mmol/L (98-107); CO2 26 mmol/L (21-32); CREATININE 0.8 mg/dL (0.55-1.3); GLUCOSE,RANDOM 98 mg/dL (74-106); POTASSIUM 4.9 mmol/L (3.5-5.1); SODIUM 140 mmol/L (136-145)
[2019-01-01] MEDS: AMINO ACIDS/PROTEIN HYDROLYS 30 ML LIQUID.PKT PO SCH ×2 (08:38→17:23)
[2019-01-01] MEDS: FERROUS SO4 325 MG TABLET (FP) PO SCH ×2 (08:38→17:23)
[2019-01-01] MEDS ORDERED: PT OWN MED DRAWER 7, Y5N ONE (09:20)
[2019-01-01] MEDS: LIDOCAINE 5% TOPICAL PATCH TP SCH (09:57)
[2019-01-01] MEDS: ERTAPENEM SODIUM 1 GM in SODIUM CHLORIDE 50 ML IVPB SCH (09:59)
[2019-01-01] MEDS: CYCLOBENZAPRINE HCL 5 MG TABLET PO SCH (10:00)
[2019-01-01] MEDS: PANTOPRAZOLE 40 MG TABLET (FP) PO SCH (10:00)
[2019-01-01] MEDS: ASPIRIN 325 MG ENTERIC COATED TABLET (FP) PO SCH (10:00)
[2019-01-01] MEDS: DULoxetine HCL 30 MG CAPSULE.DR (FP) PO SCH ×2 (10:00→21:26)
[2019-01-01] MEDS: POLYETHYLENE GLYCOL 3350 119 GM BTL PO SCH (10:02)
[2019-01-01] MEDS: Methylnaltrexone Bromide 12 MG/0.6 ML KIT SQ SCH (10:51)
[2019-01-01] MEDS: oxyCODONE HCL 40 MG SUSTAINED ACTING TABLET PO SCH ×2 (10:52→21:26)
--- NOTE | 2019-01-01 11:17 | PN ---
Physical Exam: SUBJECTIVE: Patient seen and examined at the bedside. tells me she feels fine and just wants to go home. refusing [facility] for wound care. SW giving her options regarding home care and co pays. OBJECTIVE: Vital Signs Period Temp Pulse Resp BP Sys/Vargas Pulse Ox Last 24 Hr 97.7 F-98.6 F 82-97 10-20 96-122/40-76 96-100 GENERAL: The patient is awake, alert, and fully oriented, in no acute distress. HEAD: Normal with no signs of trauma. EYES: PERRL, conjunctiva clear. ENT: nares patent, oropharynx clear without exudates, + poor dentition, moist mucous membranes. NECK: Trachea midline, full range of motion, supple. HEART: Regular rate and rhythm, S1, S2 without murmur, rub or gallop. EXTREMITIES: 2+ pulses, warm, well-perfused, no edema. Left hip: clear dsg with wound vac-purulent sero sang drainage in cannister NEUROLOGICAL: WC BOUND Normal speech, PSYCH: Normal mood, normal affect. Laboratory Results - last 24 hr 12/28/18 12/31/18 01/01/19 06:30 08:20 06:30 WBC 9.8 RBC 3.47 L Hgb 8.8 L Hct 26.2 L MCV 75.7 L MCH 25.5 L MCHC 33.7 RDW 20.3 H Plt Count 448 H MPV 7.3 L Absolute Neuts (auto) 7.3 Neutrophils % 74.8 Lymphocytes % 13.9 Monocytes % 6.2 Eosinophils % 4.3 Basophils % 0.8 Nucleated RBC % 0 Hypochromia 0 Platelet Estimate Normal Polychromasia 0 Poikilocytosis 0 Anisocytosis 1+ Microcytosis 1+ Macrocytosis 0 Sodium Potassium Chloride Carbon Dioxide Anion Gap BUN Creatinine Creat Clearance w eGFR Random Glucose Calcium Procalcitonin 0.06 01/01/19 06:30 WBC RBC Hgb Hct MCV MCH MCHC RDW Plt Count MPV Absolute Neuts (auto) Neutrophils % Lymphocytes % Monocytes % Eosinophils % Basophils % Nucleated RBC % Hypochromia Platelet Estimate Polychromasia Poikilocytosis Anisocytosis Microcytosis Macrocytosis Sodium 140 Potassium 4.9 Chloride 110 H Carbon Dioxide 26 Anion Gap 4 L BUN 22 H Creatinine 0.8 Creat Clearance w eGFR 72.44 Random Glucose 98 Calcium 8.4 L Procalcitonin Active Medications Generic Name Dose Route Start Last Admin Trade Name Freq PRN Reason Stop Dose Admin Al Hydroxide/Mg Hydroxide 30 ml 12/31/18 13:36 Mylanta Oral Suspension - PO Q6HPO PRN DYSPEPSIA Amino Acids 30 ml 12/31/18 17:30 01/01/19 08:38 Prosource No Carb Liquid Pkt PO 30 ml BID@0800,1730 ELKE Administration Aspirin 325 mg 01/01/19 10:00 01/01/19 10:00 Ecotrin - PO 325 mg DAILY [facility] Administration Cyclobenzaprine HCl 5 mg 01/01/19 10:00 01/01/19 10:00 Cyclobenzaprine Hcl PO 5 mg DAILY [facility] Administration Diphenhydramine HCl 25 mg 12/31/18 22:00 Benadryl - PO HS PRN INSOMNIA Docusate Sodium 100 mg 12/31/18 14:00 01/01/19 05:32 Colace - PO 100 mg TID [facility]KE Administration Duloxetine HCl 30 mg 12/31/18 22:00 01/01/19 10:00 Cymbalta - PO 30 mg BID ELKE Administration Ferrous Sulfate 325 mg 12/31/18 17:30 01/01/19 08:38 Feosol - PO 325 mg BIDWM [facility]KE Administration Lactated Ringer's 1,000 mls @ 75 mls/hr 12/31/18 13:30 Lactated Ringers Solution IV ASDIR ELKE Daptomycin 500 mg/ Sodium 50 mls @ 50 mls/hr 12/31/18 17:30 12/31/18 17:17 Chloride IVPB 50 mls/hr DAILY@1730 ELKE Administration Protocol Ertapenem 1 gm/ Sodium 50 mls @ 100 mls/hr 01/01/19 10:00 01/01/19 09:59 Chloride IVPB 100 mls/hr DAILY [facility] Administration Lidocaine 1 patch 01/01/19 10:00 01/01/19 09:57 Lidoderm Patch - TP 1 patch DAILY [facility] Administration Methylnaltrexone [place] 8 mg 01/01/19 10:00 01/01/19 10:51 Relistor - SQ 8 mg Q2D@1000 ELKE Administration Miscellaneous 1 each 12/31/18 22:00 12/31/18 22:13 Lidoderm Patch Removal MC 1 each DAILY@2200 [facility] Administration Oxybutynin Chloride 5 mg 12/31/18 14:00 01/01/19 05:32 Ditropan - PO 5 mg TID ELKE Administration Oxycodone HCl 30 mg 12/31/18 13:36 01/01/19 10:00 Roxicodone - PO 30 mg Q4H PRN Administration PAIN LEVEL 7 - 10 Oxycodone HCl 80 mg 12/31/18 22:00 01/01/19 10:52 Oxycontin - PO 80 mg BID ELKE Administration Pantoprazole Sodium 40 mg 01/01/19 10:00 01/01/19 10:00 Protonix - PO 40 mg DAILY [facility] Administration Polyethylene Glycol 17 gm 01/01/19 10:00 01/01/19 10:02 Miralax (For Daily Use) - PO Not Given DAILY [facility] Pregabalin 100 mg 12/31/18 14:00 01/01/19 05:32 Lyrica - PO 100 mg TID [facility]KE Administration Senna 2 tab 12/31/18 22:00 Senna - PO HS PRN CONSTIPATION Simethicone 40 mg 12/31/18 13:36 Mylicon Liquid - PO Q6H PRN INDIGESTION ASSESSMENT/PLAN: Patient is a 63 year old female with a significant past medical history of hypertension, anxiety, depression, chronic pain and chronic left hip left wound. who has undergone left hip debridement of soft tissue, muscle, bone, VAC application on 11/19, multiple I and D wound washes, s/p osteotomy left femur, removal of hardware (explant femoral component), I&D left hip wound; hardware removed by surgery. Her left wound washout was on 12/31/18. Surgery Chronic left hip left wound. Hardware removed s/p I&D of left hip on 12/31/18 with possible wound closure vs exchange of wound vac -On daptomycin 500mg q 24 and ertapenem (started on 12/14/18, will need 8 weeks total) -wound vac and pain management -monitor drain output with wound vac -surgery following. Severe Malnutrition As evidenced by more than 100lb weight loss in a year and severe depletion of subcutaneous fat and muscle. Patient has chronic non healing wounds for extended amount of time. Albumin low and low total protein On a regular diet, started on Prosource BID On Ensure pudding daily and magic cup daily monitor weights dietary following fen tolerating po monitor electrolytes low salt diet prophy full dose asa 325.mg and SCDs Visit type - Emergency Visit Emergency Visit: Yes ED Registration Date: 11/19/18 Care time: The patient presented to the Emergency Department on the above date and was hospitalized for further evaluation of their emergent condition. - New Patient This patient is new to me today: No - Critical Care Critical Care patient: No - Discharge Referral Referred to [facility] No
--- NOTE | 2019-01-01 14:15 | PN ---
Progress Note (short form) - Note Progress Note: Anesthesia POD#1 S/P Left hip Wound Wash under GA. VSS,no pain,no N/V Marcella Whitney MD.
--- NOTE | 2019-01-01 16:57 | PN ---
Progress Note (short form) - Note Progress Note: .
--- NOTE | 2019-01-01 17:04 | PN ---
Progress Note (short form) - Note Progress Note: 63F s/p I&D LEFT hip wound POD #1. Pain well controlled. No acute events overnight. Pt. denies overnight history of headaches, chest pain, shortness of breath, nausea, vomiting, chills, & sweats. (+) Voiding; (+) Flatus; (-) BM. Left hip wound too large for primary closure. Left hip wound dimensions: Length - 15cm Width - 6cm Depth - 10cm All labs and vitals reviewed. PE: AAO x 3, NAD. L-Hip: Wound vac dressing C/D/I. NVI distally. 63F s/p I&D LEFT hip wound POD #1. -Pain control. -DVT PPx: -Chemical: ASA 81mg PO BID. -Mechanical: SOUTH's. -Incentive spirometry q15 min. -PT/OT/Rehab, OOB. -NWB LLE. -Diet as tolerated. -Care per medical hospitalist team & ID service. -Continue IV antibiotics as per ID service rec's. -Discharge planning: OK to discharge home with services and nursing care for antibiotic administration; pt. to follow-up on a weekly basis for wound vac exchange and ultimately, wound closure. -Will follow. Gelacio Moya MD (Orthopaedic Surgery).
[2019-01-01] MEDS: DAPTOMYCIN 500 MG in SODIUM CHLORIDE 50 ML IVPB SCH (17:22)
[2019-01-01] MEDS: LIDOCAINE PATCH REMOVAL MC SCH (21:29)
[2019-01-02] MEDS: OXYBUTYNIN CHLORIDE 5 MG TABLET PO SCH ×3 (05:36→21:34)
[2019-01-02] MEDS: DOCUSATE SODIUM 100 MG CAPSULE (FP) PO SCH ×3 (05:36→21:34)
[2019-01-02] MEDS: PREGABALIN 100 MG CAPSULE PO SCH ×3 (05:36→21:34)
[2019-01-02] MEDS: oxyCODONE HCL 5 MG TABLET PO PRN ×4 (05:44→18:10)
[2019-01-02] MEDS: FERROUS SO4 325 MG TABLET (FP) PO SCH ×2 (08:29→18:10)
[2019-01-02] MEDS: AMINO ACIDS/PROTEIN HYDROLYS 30 ML LIQUID.PKT PO SCH ×2 (08:29→18:10)
[2019-01-02 09:47] LABS: BASO % 1.3 % (0-2.0); EOS % 11.1 % (0-4.5); HEMATOCRIT 32.5 % (32.4-45.2); HEMOGLOBIN 10.5 GM/dL (10.7-15.3); MCH 24.7 pg (25.7-33.7); MCHC 32.2 g/dl (32.0-36.0); MEAN CELL VOLUME 76.6 fl (80-96); MEAN PLT VOLUME 7.1 fl (7.5-11.1); MONO % 4.6 % (3.8-10.2); PLATELET COUNT 525 K/MM3 (134-434); RBC 4.24 M/mm3 (3.60-5.2); RDW 20.9 % (11.6-15.6)
[2019-01-02 10:16] LABS: ALBUMIN 2.6 g/dl (3.4-5.0); ALK PHOS 189 U/L (45-117); ANION GAP 6 MMOL/L (8-16); BILIRUBIN,TOTAL < 0.1 mg/dL (0.2-1); BLOOD UREA NITROGEN 18 mg/dL (7-18); CALCIUM 8.9 mg/dL (8.5-10.1); CHLORIDE 110 mmol/L (98-107); CO2 25 mmol/L (21-32); CREATININE 0.7 mg/dL (0.55-1.3); GLUCOSE,RANDOM 91 mg/dL (74-106); POTASSIUM 4.5 mmol/L (3.5-5.1); SGOT/AST 15 U/L (15-37); SGPT/ALT 17 U/L (13-61); SODIUM 141 mmol/L (136-145); TOT PROT 7.2 g/dl (6.4-8.2)
[2019-01-02] MEDS ORDERED: PT OWN MED DRAWER 7, Y5N ONE (10:20)
[2019-01-02] MEDS: DULoxetine HCL 30 MG CAPSULE.DR (FP) PO SCH ×2 (10:26→21:34)
[2019-01-02] MEDS: ERTAPENEM SODIUM 1 GM in SODIUM CHLORIDE 50 ML IVPB SCH (10:26)
[2019-01-02] MEDS: CYCLOBENZAPRINE HCL 5 MG TABLET PO SCH (10:26)
[2019-01-02] MEDS: ASPIRIN 325 MG ENTERIC COATED TABLET (FP) PO SCH (10:26)
[2019-01-02] MEDS: POLYETHYLENE GLYCOL 3350 119 GM BTL PO SCH (10:29)
[2019-01-02] MEDS: LIDOCAINE 5% TOPICAL PATCH TP SCH (10:30)
[2019-01-02] MEDS: PANTOPRAZOLE 40 MG TABLET (FP) PO SCH (11:06)
[2019-01-02] MEDS: oxyCODONE HCL 40 MG SUSTAINED ACTING TABLET PO SCH ×2 (11:06→21:34)
--- NOTE | 2019-01-02 11:40 | PN ---
Physical Exam: SUBJECTIVE: Patient seen and examined at the bedside. OBJECTIVE: Vital Signs Period Temp Pulse Resp BP Sys/Vargas Pulse Ox Last 24 Hr 97.6 F-98.5 F 90-100 20-20 134-140/67-81 GENERAL: The patient is awake, alert, and fully oriented, in no acute distress. HEAD: Normal with no signs of trauma. EYES: PERRL, conjunctiva clear. ENT: nares patent, oropharynx clear without exudates, + poor dentition, moist mucous membranes. NECK: Trachea midline, full range of motion, supple. HEART: Regular rate and rhythm, S1, S2 without murmur, rub or gallop. EXTREMITIES: 2+ pulses, warm, well-perfused, no edema. Left hip: clear dsg with wound vac-purulent sero sang drainage in cannister NEUROLOGICAL: WC BOUND Normal speech, PSYCH: Normal mood, normal affect. Laboratory Results - last 24 hr 01/02/19 01/02/19 09:00 09:00 WBC 9.0 RBC 4.24 Hgb 10.5 L Hct 32.5 D MCV 76.6 L MCH 24.7 L MCHC 32.2 RDW 20.9 H Plt Count 525 H MPV 7.1 L Absolute Neuts (auto) 5.6 Neutrophils % 62.0 Lymphocytes % 21.0 D Monocytes % 4.6 Eosinophils % 11.1 H D Basophils % 1.3 Nucleated RBC % 0 Sodium 141 Potassium 4.5 Chloride 110 H Carbon Dioxide 25 Anion Gap 6 L BUN 18 Creatinine 0.7 Creat Clearance w eGFR 84.51 Random Glucose 91 Calcium 8.9 Total Bilirubin < 0.1 L AST 15 ALT 17 Alkaline Phosphatase 189 H Total Protein 7.2 Albumin 2.6 L Active Medications Generic Name Dose Route Start Last Admin Trade Name Freq PRN Reason Stop Dose Admin Al Hydroxide/Mg Hydroxide 30 ml 12/31/18 13:36 Mylanta Oral Suspension - PO Q6HPO PRN DYSPEPSIA Amino Acids 30 ml 12/31/18 17:30 01/02/19 08:29 Prosource No Carb Liquid Pkt PO 30 ml BID@0800,1730 ELKE Administration Aspirin 325 mg 01/01/19 10:00 01/02/19 10:26 Ecotrin - PO 325 mg DAILY [facility] Administration Cyclobenzaprine HCl 5 mg 01/01/19 10:00 01/02/19 10:26 Cyclobenzaprine Hcl PO 5 mg DAILY [facility] Administration Diphenhydramine HCl 25 mg 12/31/18 22:00 Benadryl - PO HS PRN INSOMNIA Docusate Sodium 100 mg 12/31/18 14:00 01/02/19 05:36 Colace - PO 100 mg TID ELKE Administration Duloxetine HCl 30 mg 12/31/18 22:00 01/02/19 10:26 Cymbalta - PO 30 mg BID ELKE Administration Ferrous Sulfate 325 mg 12/31/18 17:30 01/02/19 08:29 Feosol - PO 325 mg BIDWM ELKE Administration Lactated Ringer's 1,000 mls @ 75 mls/hr 12/31/18 13:30 Lactated Ringers Solution IV ASDIR ELKE Daptomycin 500 mg/ Sodium 50 mls @ 50 mls/hr 12/31/18 17:30 01/01/19 17:22 Chloride IVPB 50 mls/hr DAILY@1730 [facility] Administration Protocol Ertapenem 1 gm/ Sodium 50 mls @ 100 mls/hr 01/01/19 10:00 01/02/19 10:26 Chloride IVPB 100 mls/hr DAILY [facility] Administration Lidocaine 1 patch 01/01/19 10:00 01/02/19 10:30 Lidoderm Patch - TP 1 patch DAILY [facility] Administration Methylnaltrexone [place] 8 mg 01/01/19 10:00 01/01/19 10:51 Relistor - SQ 8 mg Q2D@1000 [facility] Administration Miscellaneous 1 each 12/31/18 22:00 01/01/19 21:29 Lidoderm Patch Removal MC 1 each DAILY@2200 [facility] Administration Oxybutynin Chloride 5 mg 12/31/18 14:00 01/02/19 05:36 Ditropan - PO 5 mg TID ELKE Administration Oxycodone HCl 30 mg 12/31/18 13:36 01/02/19 10:27 Roxicodone - PO 30 mg Q4H PRN Administration PAIN LEVEL 7 - 10 Oxycodone HCl 80 mg 12/31/18 22:00 01/02/19 11:06 Oxycontin - PO 80 mg BID ELKE Administration Pantoprazole Sodium 40 mg 01/01/19 10:00 01/02/19 11:06 Protonix - PO 40 mg DAILY [facility] Administration Polyethylene Glycol 17 gm 04/16/19 10:00 01/02/19 10:29 Miralax (For Daily Use) - PO Not Given DAILY [facility] Pregabalin 100 mg 12/31/18 14:00 01/02/19 05:36 Lyrica - PO 100 mg TID [facility] Administration Senna 2 tab 12/31/18 22:00 Senna - PO HS PRN CONSTIPATION Simethicone 40 mg 12/31/18 13:36 Mylicon Liquid - PO Q6H PRN INDIGESTION ASSESSMENT/PLAN: Patient is a 63 year old female with a significant past medical history of hypertension, anxiety, depression, chronic pain and chronic left hip left wound. who has undergone left hip debridement of soft tissue, muscle, bone, VAC application on 11/19, multiple I and D wound washes, s/p osteotomy left femur, removal of hardware (explant femoral component), I&D left hip wound; hardware removed by surgery. Her left wound washout was on 12/31/18. Surgery Chronic left hip left wound. Hardware removed s/p I&D of left hip on 12/31/18 with possible wound closure vs exchange of wound vac -On daptomycin 500mg q 24 and ertapenem (started on 12/14/18, will need 8 weeks total) -wound vac and pain management -monitor drain output with wound vac -surgery following. Severe Malnutrition As evidenced by more than 100lb weight loss in a year and severe depletion of subcutaneous fat and muscle. Patient has chronic non healing wounds for extended amount of time. Albumin low and low total protein On a regular diet, started on Prosource BID On Ensure pudding daily and magic cup daily monitor weights dietary following fen tolerating po monitor electrolytes low salt diet prophy full dose asa 325.mg and SCDs discharge planning Visit type - Emergency Visit Emergency Visit: Yes ED Registration Date: 11/19/18 Care time: The patient presented to the Emergency Department on the above date and was hospitalized for further evaluation of their emergent condition. - New Patient This patient is new to me today: No - Critical Care Critical Care patient: No - Discharge Referral Referred to [facility] No
[2019-01-02] MEDS: LACTATED RINGERS SOLUTION 1,000 ML IV SCH (14:23)
[2019-01-02] MEDS: DAPTOMYCIN 500 MG in SODIUM CHLORIDE 50 ML IVPB SCH (18:10)
[2019-01-02] MEDS: LIDOCAINE PATCH REMOVAL MC SCH (21:41)
[2019-01-03] MEDS: OXYBUTYNIN CHLORIDE 5 MG TABLET PO SCH ×3 (05:45→21:51)
[2019-01-03] MEDS: DOCUSATE SODIUM 100 MG CAPSULE (FP) PO SCH ×3 (05:45→21:51)
[2019-01-03] MEDS: PREGABALIN 100 MG CAPSULE PO SCH ×3 (05:45→21:51)
[2019-01-03] MEDS: AMINO ACIDS/PROTEIN HYDROLYS 30 ML LIQUID.PKT PO SCH ×2 (08:40→16:42)
[2019-01-03] MEDS: FERROUS SO4 325 MG TABLET (FP) PO SCH ×2 (08:40→17:27)
[2019-01-03] MEDS ORDERED: PT OWN MED DRAWER 7, Y5N ONE ×2 (09:05→14:03)
[2019-01-03] MEDS: oxyCODONE HCL 5 MG TABLET PO PRN ×4 (09:06→21:48)
[2019-01-03] MEDS: LIDOCAINE 5% TOPICAL PATCH TP SCH (09:09)
[2019-01-03] MEDS: ASPIRIN 325 MG ENTERIC COATED TABLET (FP) PO SCH (09:09)
[2019-01-03] MEDS: PANTOPRAZOLE 40 MG TABLET (FP) PO SCH (09:09)
[2019-01-03] MEDS: DULoxetine HCL 30 MG CAPSULE.DR (FP) PO SCH ×2 (09:09→21:51)
[2019-01-03] MEDS: CYCLOBENZAPRINE HCL 5 MG TABLET PO SCH (09:10)
[2019-01-03] MEDS: POLYETHYLENE GLYCOL 3350 119 GM BTL PO SCH (09:16)
[2019-01-03] MEDS: oxyCODONE HCL 40 MG SUSTAINED ACTING TABLET PO SCH ×2 (10:10→23:42)
[2019-01-03] MEDS: ERTAPENEM SODIUM 1 GM in SODIUM CHLORIDE 50 ML IVPB SCH (10:12)
[2019-01-03] MEDS: LACTATED RINGERS SOLUTION 1,000 ML IV SCH (14:18)
[2019-01-03] MEDS ORDERED: diphenhydrAMINE HCL 25 MG CAPSULE (FP) PO ONE (15:59)
--- NOTE | 2019-01-03 16:08 | PN ---
Physical Exam: SUBJECTIVE: Patient seen today with multidisciplinary team discussing d/c. patient to be d/c tomorrow to [facility]. she will be followed by orthopedic surgery. OBJECTIVE: GENERAL: The patient is awake, alert, and fully oriented, in no acute distress. HEAD: Normal with no signs of trauma. EYES: PERRL, conjunctiva clear. ENT: nares patent, oropharynx clear without exudates, + poor dentition, moist mucous membranes. NECK: Trachea midline, full range of motion, supple. HEART: Regular rate and rhythm, S1, S2 without murmur, rub or gallop. EXTREMITIES: 2+ pulses, warm, well-perfused, no edema. Left hip: clear dsg with wound vac-purulent sero sang drainage in cannister NEUROLOGICAL: WC BOUND Normal speech, PSYCH: Normal mood, normal affect. Vital Signs Period Temp Pulse Resp BP Sys/Vargas Pulse Ox Last 24 Hr 97.9 F-99.0 F 94-110 18-20 118-162/71-84 Active Medications Generic Name Dose Route Start Last Admin Trade Name Freq PRN Reason Stop Dose Admin Al Hydroxide/Mg Hydroxide 30 ml 12/31/18 13:36 Mylanta Oral Suspension - PO Q6HPO PRN DYSPEPSIA Amino Acids 30 ml 12/31/18 17:30 01/03/19 08:40 Prosource No Carb Liquid Pkt PO 30 ml BID@0800,1730 ELKE Administration Aspirin 325 mg 01/01/19 10:00 01/03/19 09:09 Ecotrin - PO 325 mg DAILY ELKE Administration Cyclobenzaprine HCl 5 mg 01/01/19 10:00 01/03/19 09:10 Cyclobenzaprine Hcl PO 5 mg DAILY ELKE Administration Diphenhydramine HCl 25 mg 12/31/18 22:00 Benadryl - PO HS PRN INSOMNIA Docusate Sodium 100 mg 12/31/18 14:00 01/03/19 14:12 Colace - PO 100 mg TID ELKE Administration Duloxetine HCl 30 mg 12/31/18 22:00 01/03/19 09:09 Cymbalta - PO 30 mg BID ELKE Administration Ferrous Sulfate 325 mg 12/31/18 17:30 01/03/19 08:40 Feosol - PO 325 mg BIDWM ELKE Administration Lactated Ringer's 1,000 mls @ 75 mls/hr 12/31/18 13:30 01/03/19 14:18 Lactated Ringers Solution IV Not Given ASDIR ELKE Daptomycin 500 mg/ Sodium 50 mls @ 50 mls/hr 12/31/18 17:30 01/02/19 18:10 Chloride IVPB 50 mls/hr DAILY@1730 ELKE Administration Protocol Ertapenem 1 gm/ Sodium 50 mls @ 100 mls/hr 01/01/19 10:00 01/03/19 10:12 Chloride IVPB 100 mls/hr DAILY ELKE Administration Lidocaine 1 patch 01/01/19 10:00 01/03/19 09:09 Lidoderm Patch - TP 1 patch DAILY ELKE Administration Methylnaltrexone [place] 8 mg 01/01/19 10:00 01/01/19 10:51 Relistor - SQ 8 mg Q2D@1000 ELKE Administration Miscellaneous 1 each 12/31/18 22:00 01/02/19 21:41 Lidoderm Patch Removal MC 1 each DAILY@2200 ELKE Administration Oxybutynin Chloride 5 mg 12/31/18 14:00 01/03/19 14:12 Ditropan - PO 5 mg TID ELKE Administration Oxycodone HCl 30 mg 12/31/18 13:36 01/03/19 14:12 Roxicodone - PO 30 mg Q4H PRN Administration PAIN LEVEL 7 - 10 Oxycodone HCl 80 mg 12/31/18 22:00 01/03/19 10:10 Oxycontin - PO 80 mg BID ELKE Administration Pantoprazole Sodium 40 mg 01/01/19 10:00 01/03/19 09:09 Protonix - PO 40 mg DAILY ELKE Administration Polyethylene Glycol 17 gm 01/01/19 10:00 01/03/19 09:16 Miralax (For Daily Use) - PO Not Given DAILY ELKE Pregabalin 100 mg 12/31/18 14:00 01/03/19 14:18 Lyrica - PO 100 mg TID ELKE Administration Senna 2 tab 12/31/18 22:00 Senna - PO HS PRN CONSTIPATION Simethicone 40 mg 12/31/18 13:36 Mylicon Liquid - PO Q6H PRN INDIGESTION Zinc Acetate/Diphenhydramine 1 applic 01/03/19 22:00 Benadryl 2% Cream TP BID [facility] ASSESSMENT/PLAN: Patient is a 63 year old female with a significant past medical history of hypertension, anxiety, depression, chronic pain and chronic left hip left wound. who has undergone left hip debridement of soft tissue, muscle, bone, VAC application, multiple I and D wound washes, s/p osteotomy left femur, removal of hardware (explant femoral component), I&D left hip wound; hardware removed by surgery. Her left wound washout was on 12/31/18. Surgery Chronic left hip left wound. Hardware removed s/p I&D of left hip on 12/31/18 with possible wound closure vs exchange of wound vac -On daptomycin 500mg q 24 and ertapenem (started on 12/14/18, will need 8 weeks total) -wound vac and pain management -monitor drain output with wound vac -surgery following. Severe Malnutrition She has had more than 100lb weight loss in a year and severe depletion of subcutaneous fat and muscle. Patient has chronic non healing wounds for extended amount of time. Albumin low and low total protein On a regular diet, started on Prosource BID On Ensure pudding daily and magic cup daily monitor weights dietary following fen tolerating po monitor electrolytes low salt diet prophy full dose asa 325.mg and SCDs discharge planning to [facility] tomorrow. Visit type - Emergency Visit Emergency Visit: Yes ED Registration Date: 11/19/18 Care time: The patient presented to the Emergency Department on the above date and was hospitalized for further evaluation of their emergent condition. - New Patient This patient is new to me today: No - Critical Care Critical Care patient: No - Discharge Referral Referred to [facility].C.: No
[2019-01-03] MEDS: Methylnaltrexone Bromide 12 MG/0.6 ML KIT SQ SCH (16:42)
[2019-01-03] MEDS: DAPTOMYCIN 500 MG in SODIUM CHLORIDE 50 ML IVPB SCH (16:43)
[2019-01-03] MEDS ORDERED: LORazepam 1 MG TABLET PO ONE (18:00)
--- NOTE | 2019-01-03 21:23 | PN ---
Progress Note (short form) - Note Progress Note: 63F s/p I&D LEFT hip wound POD #3. Pain well controlled. No acute events overnight. Pt. denies overnight history of headaches, chest pain, shortness of breath, nausea, vomiting, chills, & sweats. (+) Voiding; (+) Flatus; (+) BM. Left hip wound too large for primary closure. Left hip wound dimensions: Length - 15cm Width - 6cm Depth - 10cm All labs and vitals reviewed. PE: AAO x 3, NAD. L-Hip: Wound vac dressing C/D/I. NVI distally. 63F s/p I&D LEFT hip wound POD #3. -Pain control. -DVT PPx: -Chemical: ASA 81mg PO BID. -Mechanical: SOUTH's. -Incentive spirometry q15 min. -PT/OT/Rehab, OOB. -NWB LLE. -Diet as tolerated. -Care per medical hospitalist team & ID service. -Continue IV antibiotics as per ID service rec's. -Discharge planning: [facility]; pt. to undergo I&D with wound vac exchange VS primary closure Monday01/07/2019; new wound cultures to be obtained at that time. -Will follow. Gelacio Moya MD (Orthopaedic Surgery).
[2019-01-03] MEDS: LIDOCAINE PATCH REMOVAL MC SCH (21:55)
[2019-01-04] MEDS: PREGABALIN 100 MG CAPSULE PO SCH (05:37)
[2019-01-04] MEDS: OXYBUTYNIN CHLORIDE 5 MG TABLET PO SCH (05:37)
[2019-01-04] MEDS: DOCUSATE SODIUM 100 MG CAPSULE (FP) PO SCH (05:37)
--- NOTE | 2019-01-04 08:17 | DS ---
"Physical Exam: SUBJECTIVE: Patient seen and examined at the bedside. offers no complaints. denies chest pain, malaise or shortness of breath. she is in agreement to be discharged to [facility] for continuation of antibiotics and wound care per Dr. Moya. OBJECTIVE: Patient to be discharged with the tunneled catheter that was placed at [facility] on for continuation of antibiotics. Vital Signs Period Temp Pulse Resp BP Sys/Vargas Pulse Ox Last 24 Hr 97.9 F-99.0 F 109-133 18-20 133-163/71-99 PHYSICAL EXAM GENERAL: The patient is awake, alert, and fully oriented, in no acute distress. HEAD: Normal with no signs of trauma. EYES: PERRL, conjunctiva clear. ENT: nares patent, oropharynx clear without exudates, + poor dentition, moist mucous membranes. NECK: Trachea midline, full range of motion, supple. HEART: Regular rate and rhythm, S1, S2 without murmur, rub or gallop. EXTREMITIES: 2+ pulses, warm, well-perfused, left hip with wound vac. Left hip: clear dsg with wound vac-purulent sero sang drainage in cannister NEUROLOGICAL: WC BOUND Normal speech, wheelchair bound PSYCH: Normal mood, normal affect. hx of anxxiety HOSPITAL COURSE: Date of Admission:11/19/18 Date of Discharge: 01/04/19 Patient is a 63 year old female with a significant past medical history of hypertension, anxiety, depression, chronic pain and chronic left hip left wound. She has undergone left hip debridement of soft tissue, muscle, bone, VAC application on 11/19, subsequently multiple I and D wound washes , underwent s /p osteotomy left femur, removal of hardware (explant femoral component), Hospital course by problem list. 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 Multiple washouts performed during hospitalization: I&D left hip wound; debridement of soft tissue, muscle, bone; VAC application on 11/19 I&D and washout left hip wound; VAC reapplication on 11/23 washout left hip wound and VAC reapplication on 11/26 I&D and debridement left hip wound on 12/03 I&D and debridement left hip wound on 12/07 s/p osteotomy left femur; removal of hardware (explant femoral component); I&D left hip wound; partial removal of cement mantle; exchange left hip wound vac on 12/10 I&D wound VAC exchange on 12/17 I&D wound VAC exchange on 12/24 I&D wound vac exchange on 12/31 She will be discharged to [facility] for continuation of IV antibiotics. patient is a chronic left hip wound with ESBL EColi and E Faecalis growing from the wound. plan: continue Daptomycin 500mg daily and Ertapenem 1 gram daily as per ID for minimum 8 weeks (started on 12/14/18, will need 8 weeks total) via tunneled catheter placed at [facility] on 12/19/18. Will need CBC, CMP, ESR/CRP monitored during therapy. Pain management with oxycodone, oxycontin 80mg, lyrica, flexeril and lidoderm patch Cardiology: hypertension: controlled on lisinopril 10mg daily Psyche: Depression, chronic Continue Cymbalta and Valium as needed. Heme: Anemia During hospitalization, has been transfused 4 units of PRBC during hospital stay. Will need close monitoring of CBC. continue PO Iron therapy. : Urinary incontinence: Continue oxybutynin Severe Malnutrition She has had more than 100lb weight loss in a year and severe depletion of subcutaneous fat and muscle. Patient has chronic non healing wounds for extended amount of time. Albumin low and low total protein. On a regular diet, started on Prosource BID On Ensure pudding daily and magic cup daily monitor weights dietary following DISCHARGE PLAN: Discharge to [facility]. Minutes to complete discharge: 60 Discharge Summary Reason For Visit: LOOSENING OF INTERNAL LEFT HIP Current Active Problems Anemia (Acute) Chronic pain (Acute) Depression (Acute) HTN (hypertension) (Acute) Low grade fever (Acute) Prophylactic measure (Acute) Sepsis (Acute) Thrombocytosis (Acute) Urinary incontinence (Acute) Wound, open, hip or thigh (Acute) Condition: Guarded - Instructions Diet, Activity, Other Instructions: Dr. Albert Moya's Discharge Instructions Post Operative Instructions Physical activity Resume your normal everyday activity as tolerated no heavy lifting or exercise until seen by your surgeon. You may walk unlimited amounts of and climb stairs. You may resume driving the car when you feel safe and comfortable behind the wheel. Wound care Continue wound vac as per Dr. Moya. Continue with the IV antibiotics Daptomycin and Ertapenem for a minimum of 8 more weeks. You will need to have your blood drawn to assure that your ESR/CRP is improving. Further, please continue to monitor your CBC and CMP at the facility to assure that your counts remain stable. Chronic left hip wound with ESBL EColi and E Faecalis growing from the wond Continue Daptomycin 500mg q 24 hours and Ertapenem 1 gram daily per ID for a minimum of 8 weeks Pain control with Oxycodone, Lyrica, Flexeril and Lidoderm patches Patient had a tunneled catheter placed on 12/19/2018. Diet There are no dietary restrictions. Eat healthy, high-fiber foods. Drink 6 to 8 glasses of liquid each day. This will assist in keeping your bowels are regular. Pain management You may take Tylenol or acetaminophen. Any pain prescription medication ordered should be taken as prescribed for moderate to severe pain. Call Dr. Moya for any of the following: Severe pain not relieved by medication Fever of 101 or higher Excessive bleeding or drainage on dressing Call the office for a post operative appointment in 7 - 10 days. [facility] Checked prior too escribe of narcotics for pain management This report was requested by: Michael Goncalves | Reference #: [id number] 11/02/2018 Oxycontin er 80 mg tablet / 90 tablets / Albert Moya MS, MD Referrals: Sloane Perales MD [Staff Physician] - Albert Moya MD [Staff Physician] - Disposition: INTERMEDIATE FACILITY - Home Medications Comprehensive Discharge Medication List: Ambulatory Orders RX: Diazepam [Valium] 5 mg PO HS PRN 08/24/18 RX: Duloxetine HCl [Cymbalta] 30 mg PO BID 08/24/18 RX: Lisinopril 10 mg PO DAILY 08/24/18 RX: Omeprazole 40 mg PO DAILY 08/24/18 RX: Oxybutynin Chloride 5 mg PO TID 08/24/18 RX: Oxycodone HCl 30 mg PO ASDIR PRN 08/24/18 RX: Pregabalin [Lyrica] 100 mg PO TID 08/24/18 RX: oxyCODONE SR [Oxycontin] 80 mg PO TID 08/24/18 RX: Aspirin [Aspirin EC] 325 mg PO DAILY 09/12/18 RX: Ferrous Sulfate [Feosol] 325 mg PO BIDWM ud 12/19/18 RX: Lidocaine 5% Patch [Lidoderm -] 1 patch TP DAILY patch 12/19/18 RX: Simethicone Liquid [Mylicon Liquid -] 40 mg PO Q6H PRN ml 12/19/18 RX: Amino Acids/Protein Hydrolys [Prosource No Carb Liquid Pkt] 30 ml PO BID@ 0800,1730 packet 01/03/19 RX: Cyclobenzaprine HCl 5 mg PO DAILY tablet 01/03/19 RX: Daptomycin [Cubicin (Restricted To Id) -] 500 mg IVPB DAILY@1730 vial RX: Diphenhydramine HCl [Benadryl Capsule -] 25 mg PO HS PRN capsule 01/03/19 RX: Diphenhydramine HCl/Zinc Acet [Benadryl 2% Cream] 1 applic TP BID tube RX: Docusate Sodium [Colace -] 100 mg PO TID capsule 01/03/19 RX: Ertapenem Sodium [Invanz -] 1 gm IVPB DAILY vial 01/03/19 RX: Mag Hydrox/Al Hydrox/Simeth [Mylanta Oral Suspension -] 30 ml PO Q6HPO PRN cup 01/03/19 RX: Polyethylene Glycol 3350 [Miralax 119 gm Btl -] 17 gm PO DAILY bottle 01/03 RX: Sennosides [Senna -] 2 tab PO HS PRN tablet 01/03/19 RX: Lisinopril [Prinivil] 10 mg PO DAILY tablet 01/04/19 This patient is new to me today: No Emergency Visit: Yes ED Registration Date: 11/19/18 Care time: The patient presented to the Emergency Department on the above date and was hospitalized for further evaluation of their emergent condition. Critical Care patient: No - Discharge Referral Referred to [facility] No"
[2019-01-04] MEDS: oxyCODONE HCL 40 MG SUSTAINED ACTING TABLET PO SCH (09:47)
[2019-01-04] MEDS: ERTAPENEM SODIUM 1 GM in SODIUM CHLORIDE 50 ML IVPB SCH (09:47)
[2019-01-04] MEDS: AMINO ACIDS/PROTEIN HYDROLYS 30 ML LIQUID.PKT PO SCH (09:48)
[2019-01-04] MEDS: DULoxetine HCL 30 MG CAPSULE.DR (FP) PO SCH (09:49)
[2019-01-04] MEDS: CYCLOBENZAPRINE HCL 5 MG TABLET PO SCH (09:49)
[2019-01-04] MEDS: FERROUS SO4 325 MG TABLET (FP) PO SCH (09:50)
[2019-01-04] MEDS: ASPIRIN 325 MG ENTERIC COATED TABLET (FP) PO SCH (09:50)
[2019-01-04] MEDS: PANTOPRAZOLE 40 MG TABLET (FP) PO SCH (09:50)
[2019-01-04] MEDS: LIDOCAINE 5% TOPICAL PATCH TP SCH (09:51)
[2019-01-04] MEDS: POLYETHYLENE GLYCOL 3350 119 GM BTL PO SCH (09:56)
[2019-01-04] MEDS ORDERED: LISINOPRIL 10 MG TABLET (FP) PO SCH (10:00)
[2019-01-04] MEDS: oxyCODONE HCL 5 MG TABLET PO PRN (11:50)
[2019-01-04 12:08] VITALS: BP 148/78; PULSE 99; TEMP 98.2
== END 2019-01-04 12:45 | DRG 939 ==
LOC: JASUSAT 11:05 → J8W 20:29 → J6W 21:33 → JASUSAT 23:10
PROVIDERS: ADMIT Orthopaedic Surgery Orthopaedic Surgery of the Spine; ATTEND Nurse Practitioner Family
PROC: 0J9M30Z Drainage of Left Upper Leg Subcutaneous Tissue and Fascia with Drainage Device, Percutaneous Approach (ICD-10-PCS; 2018-11-19)
PROC: 0J9M30Z Drainage of Left Upper Leg Subcutaneous Tissue and Fascia with Drainage Device, Percutaneous Approach (ICD-10-PCS; 2018-11-19)
PROC: 0KBP0ZZ Excision of Left Hip Muscle, Open Approach (ICD-10-PCS; principal; 2018-11-19 11:00)
PROC: 30233N1 Transfusion of Nonautologous Red Blood Cells into Peripheral Vein, Percutaneous Approach (ICD-10-PCS; 2018-11-21)
PROC: 3E10X8X Irrigation of Skin and Mucous Membranes using Irrigating Substance, Diagnostic (ICD-10-PCS; 2018-11-23)
PROC: 2W0PX6Z Change Pressure Dressing on Left Upper Leg (ICD-10-PCS; 2018-11-23)
PROC: 0YP Anatomical Regions, Lower Extremities, Removal (ICD-10-PCS; 2018-11-26)
PROC: 3E10X8X Irrigation of Skin and Mucous Membranes using Irrigating Substance, Diagnostic (ICD-10-PCS; 2018-11-26)
PROC: 2W0PX6Z Change Pressure Dressing on Left Upper Leg (ICD-10-PCS; 2018-11-26)
PROC: 0JBM0ZZ Excision of Left Upper Leg Subcutaneous Tissue and Fascia, Open Approach (ICD-10-PCS; 2018-12-03)
PROC: 0YP Anatomical Regions, Lower Extremities, Removal (ICD-10-PCS; 2018-12-03)
PROC: 0J9M30Z Drainage of Left Upper Leg Subcutaneous Tissue and Fascia with Drainage Device, Percutaneous Approach (ICD-10-PCS; 2018-12-03)
PROC: 0SPB04Z Removal of Internal Fixation Device from Left Hip Joint, Open Approach (ICD-10-PCS; 2018-12-10)
PROC: 02HV33Z Insertion of Infusion Device into Superior Vena Cava, Percutaneous Approach (ICD-10-PCS; 2018-12-19)
PROC: B548ZZA Ultrasonography of Superior Vena Cava, Guidance (ICD-10-PCS; 2018-12-19)
DX: T84.52XD Infection and inflammatory reaction due to internal left hip prosthesis, subsequent encounter (principal); A41.1 Sepsis due to other specified staphylococcus; A41.51 Sepsis due to Escherichia coli [E. coli]; E43 Unspecified severe protein-calorie malnutrition; D62 Acute posthemorrhagic anemia; I10 Essential (primary) hypertension; F41.8 Other specified anxiety disorders; Z68.24 Body mass index [BMI] 24.0-24.9, adult; T84.021D Dislocation of internal left hip prosthesis, subsequent encounter; R00.0 Tachycardia, unspecified; G89.29 Other chronic pain; R32 Unspecified urinary incontinence; E83.42 Hypomagnesemia; R50.9 Fever, unspecified; M54.89 Other dorsalgia; S80.02XA Contusion of left knee, initial encounter; M25.552 Pain in left hip; W18.39XA Other fall on same level, initial encounter; Y92.238 Other place in hospital as the place of occurrence of the external cause; D47.3 Essential (hemorrhagic) thrombocythemia; K59.03 Drug induced constipation; T40.2X5A Adverse effect of other opioids, initial encounter; M25.352 Other instability, left hip
CPT/HCPCS: 36415; 36430; 36558; 71045-TC-FY; 72220-TC-FY; 73502-TC-LT-FY; 76000-TC-FY; 77001-TC-FY; 80048; 80053; 81003; 82308; 82550; 82607; 82728; 82746; 83605; 83735; 84100; 84484; 85025; 85027; 85610; 85651; 86140; 86850; 86870; 86900; 86901; 86902; 86922; 87040; 87070; 87075; 87077; 87086; 87186; 87205; 88300-TC; 88304-TC; 93005; 93010; 94010; 94760; 97116-GP; 97162-GP; C1751; J0131; J0878; J1644; J7030; P9038; P9058

== ENCOUNTER 2019-01-07 09:17 | Inpatient (IN) | payer OTHER, MEDICARE ==
[2019-01-07] MEDS ORDERED: PROPOFOL 20 ML ONE (12:50)
[2019-01-07] MEDS ORDERED: SUCCINYLCHOLINE CHLORIDE 200 MG/10 ML VIAL ONE (12:50)
[2019-01-07] MEDS ORDERED: MIDAZOLAM HCL 2 MG/2 ML SINGLE DOSE VIAL ONE (12:50)
--- NOTE | 2019-01-07 13:18 | PN ---
Progress Note (short form) - Note Progress Note: 63F s/p left hip I&D, and exchange of wound vac dressing POD #0. Left hip wound dimensions: Length - 14cm Width - 4cm Depth - 7cm -f/u intra-op wound cultures x 6 (2 x baceriology, 2 x AFB, 2 x fungal). -Pain control. -DVT PPx: - Chemical: ASA 81mg PO BID. - Mechanical: SOUHT's, SCD's. -Incentive spirometry. -PT/OT/Rehab, OOB. -NWB LLE. -f/u post-op trial of void - 8 hours max. -f/u AM labs. -Care per medical hospitalist team. -Will plan to exchange wound vac dressing. -Will follow. Albert Moya MD (Orthopaedic Surgery).
[2019-01-07] MEDS ORDERED: MAG HYDROX/AL HYDROX/SIMETH 30 ML UNIT-DOSE CUP PO PRN ×2 (13:19→13:21)
[2019-01-07] MEDS ORDERED: SIMETHICONE 40 MG/0.6 ML BOTTLE PO PRN (13:19)
[2019-01-07] MEDS ORDERED: PATIENT'S OWN MEDICATION (NON-FORMULARY) (Oxycodone Hcl [Oxycodone Hcl] 30 MG) PO PRN (13:19)
--- NOTE | 2019-01-07 13:19 | OP ---
Operative Note - Note: Operative Date: 01/07/19 Pre-Operative Diagnosis: Chronic left hip wound Operation: 1. I&D left hip wound. 2. Exchange wound vac left hip Post-Operative Diagnosis: Same as Pre-op Surgeon: Albert Moya Oliver Filter Operator: Gelacio Moya Anesthesiologist/TEMPERER: Mala Swartz Anesthesia: General Specimens Removed: Left hip wound: 2 x bacteriology. 2 x AFB. 2 x fungal Estimated Blood Loss (mls): 0 Drains & Tubes with Location: Left hip wound vac Fluid Volume Replaced (mls): 400 (Crystalloid) Operative Report Dictated: Yes
[2019-01-07] MEDS ORDERED: MAGNESIUM HYDROX 2400MG/30ML ORAL SUSPENSION 30 ML CUP PO PRN (13:21)
[2019-01-07] MEDS ORDERED: ONDANSETRON 4 MG/2 ML VIAL IVPUSH PRN (13:21)
[2019-01-07] MEDS ORDERED: LACTATED RINGERS SOLUTION 1,000 ML IV SCH (13:30)
[2019-01-07] MEDS ORDERED: DEXAMETHASONE SOD PHOSPHATE 4 MG/1 ML VIAL ONE (13:45)
[2019-01-07] MEDS ORDERED: KETOROLAC TROMETHAMINE 30 MG/1 ML VIAL ONE (13:48)
[2019-01-07] MEDS ORDERED: oxyCODONE HCL 5 MG TABLET PO PRN (14:02)
--- NOTE | 2019-01-07 16:33 | CONSULT ---
Consultation: REQUESTING PROVIDER: Dr. Ahn, surgery CONSULT REQUEST: We have been asked to medically evaluate this patient s/p washout surgery. HISTORY OF PRESENT ILLNESS: Patient from [facility] brought in today for a scheduled left wound washout. Patient seen at PACU awaiting bed assignment. Patient is a 63 year old female with a significant past medical history of hypertension, anxiety, depression, chronic pain and chronic left hip left wound. who has undergone left hip debridement of soft tissue, muscle, bone, VAC application, multiple I and D wound washes, s/p osteotomy left femur, removal of hardware (explant femoral component), I&D left hip wound; hardware removed by surgery. Patients presents to the OR s/p left wound washout today. On exam, patient was awake and alert in no acute distress. She denies pain or discomfort. REVIEW OF SYSTEMS: CONSTITUTIONAL: Absent: fever, chills, diaphoresis, generalized weakness, malaise, loss of appetite, weight change HEENT: Absent: rhinorrhea, nasal congestion, throat pain, throat swelling, difficulty swallowing, mouth swelling, ear pain, eye pain, visual changes CARDIOVASCULAR: Absent: chest pain, syncope, palpitations, irregular heart rate, lightheadedness , peripheral edema RESPIRATORY: Absent: cough, shortness of breath, dyspnea with exertion, orthopnea, wheezing, stridor, hemoptysis GASTROINTESTINAL: Absent: abdominal pain, abdominal distension, nausea, vomiting, diarrhea, constipation, melena, hematochezia GENITOURINARY: Absent: dysuria, frequency, urgency, hesitancy, hematuria, flank pain, genital pain MUSCULOSKELETAL: Absent: myalgia, arthralgia, joint swelling, back pain, neck pain SKIN: Absent: rash, itching, pallor HEMATOLOGIC/IMMUNOLOGIC: Absent: easy bleeding, easy bruising, lymphadenopathy, frequent infections ENDOCRINE: Absent: unexplained weight gain, unexplained weight loss, heat intolerance, cold intolerance NEUROLOGIC: Absent: headache, focal weakness or paresthesias, dizziness, unsteady gait, seizure, mental status changes, bladder or bowel incontinence PSYCHIATRIC: Absent: anxiety, depression, suicidal or homicidal ideation, hallucinations. PHYSICAL EXAMINATION Vital Signs - 24 hr 01/07/19 01/07/19 01/07/19 10:19 10:20 13:56 Temperature 98.6 F 98.0 F Pulse Rate 100 H 97 H Respiratory 18 12 Rate Blood Pressure 99/72 131/69 O2 Sat by Pulse 99 100 Oximetry (%) 01/07/19 01/07/19 01/07/19 14:00 14:15 14:30 Temperature Pulse Rate 90 92 H 94 H Respiratory 12 12 13 Rate Blood Pressure 123/61 116/63 121/63 O2 Sat by Pulse 100 100 100 Oximetry (%) 01/07/19 01/07/19 01/07/19 14:45 15:00 15:15 Temperature Pulse Rate 90 89 91 H Respiratory 14 13 14 Rate Blood Pressure 113/62 114/59 L 107/56 L O2 Sat by Pulse 100 100 100 Oximetry (%) 01/07/19 01/07/19 15:30 15:45 Temperature Pulse Rate 90 94 H Respiratory 14 12 Rate Blood Pressure 120/66 116/64 O2 Sat by Pulse 100 100 Oximetry (%) GENERAL: Awake, alert, and fully oriented, in no acute distress. HEAD: Normal with no signs of trauma. EYES: Pupils equal, round and reactive to light, extraocular movements intact, sclera anicteric, conjunctiva clear. No lid lag. EARS, NOSE, THROAT: Ears normal, nares patent, oropharynx clear without exudates. Moist mucous membranes. NECK: Normal range of motion, supple without lymphadenopathy, JVD, or masses. LUNGS: Breath sounds equal, clear to auscultation bilaterally. No wheezes, and no crackles. No accessory muscle use. HEART: Regular rate and rhythm ABDOMEN: Soft, nontender, not distended, normoactive bowel sounds, no guarding, no rebound, no masses. No hepatomegaly or splenomegaly. MUSCULOSKELETAL: Normal range of motion at all joints. No bony deformities or tenderness. No CVA tenderness. UPPER EXTREMITIES: No peripheral edema. LOWER EXTREMITIES: No peripheral edema. NEUROLOGICAL: Normal speech. PSYCHIATRIC: Cooperative. Good eye contact. Appropriate mood and affect. SKIN: left hip chronic wound s/p washout today Active Medications Generic Name Dose Route Start Last Admin Trade Name Freq PRN Reason Stop Dose Admin Al Hydroxide/Mg Hydroxide 30 ml 01/07/19 13:19 Mylanta Oral Suspension - PO Q6HPO PRN DYSPEPSIA Amino Acids 30 ml 01/07/19 17:30 Prosource No Carb Liquid Pkt PO BID@0800,1730 [facility] Aspirin 325 mg 01/08/19 10:00 Ecotrin - PO DAILY ELKE Cyclobenzaprine HCl 5 mg 01/08/19 10:00 Cyclobenzaprine Hcl PO DAILY [facility] Daptomycin 500 mg 01/07/19 17:30 Cubicin (Restricted To Id) - IVPB DAILY@1730 [facility] Protocol Diazepam 5 mg 01/07/19 13:19 Valium - PO HS PRN ANXIETY Diphenhydramine HCl 25 mg 01/07/19 22:00 Benadryl - PO HS PRN INSOMNIA Docusate Sodium 100 mg 01/07/19 14:00 Colace - PO TID [facility] Duloxetine HCl 30 mg 01/07/19 22:00 Cymbalta - PO BID [facility] Fentanyl 50 mcg 01/07/19 14:02 Sublimaze Injection - IVPUSH [id number] PRN PAIN-PACU ORDER X 4 DOSES ONLY Ferrous Sulfate 325 mg 01/07/19 17:30 Feosol - PO BIDWM [facility] Lactated Ringer's 1,000 mls @ 125 mls/hr 01/07/19 13:30 Lactated Ringers Solution IV 01/08/19 06:00 ASDIR [facility] Ertapenem 1 gm/ Sodium 50 mls @ 100 mls/hr 01/08/19 10:00 Chloride IVPB DAILY [facility] Lisinopril 10 mg 01/08/19 10:00 Prinivil PO DAILY [facility] Magnesium Hydroxide 30 ml 01/07/19 13:21 Milk Of Magnesia - PO PRN PRN CONSTIPATION Non-Formulary Medication 30 mg 01/07/19 13:19 Oxycodone Hcl [Oxycodone Hcl] PO ASDIR PRN PAIN Ondansetron HCl 4 mg 01/07/19 13:21 Zofran Injection IVPUSH Q6H PRN NAUSEA Oxybutynin Chloride 5 mg 01/07/19 14:00 Ditropan - PO TID [facility] Oxycodone HCl 80 mg 01/07/19 22:00 Oxycontin - PO BID [facility] Pantoprazole Sodium 40 mg 01/08/19 10:00 Protonix - PO DAILY [facility] Polyethylene Glycol 17 gm 01/08/19 10:00 Miralax (For Daily Use) - PO DAILY [facility] Pregabalin 100 mg 01/07/19 14:00 Lyrica - PO TID [facility] Senna/Docusate Sodium 2 tablet 01/07/19 22:00 Pericolace - PO BID ELKE Simethicone 40 mg 01/07/19 13:19 Mylicon Liquid - PO Q6H PRN INDIGESTION ASSESSMENT/PLAN: Patient is a 63 year old female with a significant past medical history of hypertension, anxiety, depression, chronic pain and chronic left hip left wound. who has undergone left hip debridement of soft tissue, muscle, bone, VAC application, multiple I and D wound washes, s/p osteotomy left femur, removal of hardware (explant femoral component), I&D left hip wound; hardware removed by surgery. Patients presents to the OR s/p left wound washout today. Surgery: s/p left wound washout/vac placement Follow up care per surgery team Patient to be discharged back to [facility] for continuation of IV antibiotics. patient is a chronic left hip wound with ESBL EColi and E Faecalis growing from the wound. On Daptomycin 500mg daily and Ertapenem 1 gram daily as per ID for minimum 8 weeks (started on 12/14/18, will need 8 weeks total) via tunneled catheter placed at [facility] on 12/19/18. Will need CBC, CMP, ESR/CRP monitored during therapy. Pain management with oxycodone, oxycontin 80mg, lyrica, flexeril and lidoderm patch Cardiology: hypertension: controlled on lisinopril 10mg daily Psyche: Depression, chronic Continue Cymbalta and Valium as needed. Heme: Anemia. monitor with daily labs. continue PO Iron therapy. : Urinary incontinence: Continue oxybutynin Severe Malnutrition She has had more than 100lb weight loss in a year and severe depletion of subcutaneous fat and muscle. Patient has chronic non healing wounds for extended amount of time. On a regular diet, on Prosource BID On Ensure pudding daily and magic cup daily monitor weights Dispo: We will continue to follow the patient. Thank you for this consultative opportunity. Visit type - Emergency Visit Emergency Visit: Yes ED Registration Date: 01/07/19 Care time: The patient presented to the Emergency Department on the above date and was hospitalized for further evaluation of their emergent condition. - New Patient This patient is new to me today: No - Critical Care Critical Care patient: No
[2019-01-07] MEDS: DOCUSATE SODIUM 100 MG CAPSULE (FP) PO SCH ×2 (17:37→21:21)
[2019-01-07] MEDS: OXYBUTYNIN CHLORIDE 5 MG TABLET PO SCH ×2 (17:37→21:21)
[2019-01-07] MEDS: PREGABALIN 100 MG CAPSULE PO SCH ×2 (17:38→21:21)
[2019-01-07] MEDS: FERROUS SO4 325 MG TABLET (FP) PO SCH (17:48)
[2019-01-07] MEDS: AMINO ACIDS/PROTEIN HYDROLYS 30 ML LIQUID.PKT PO SCH (17:48)
[2019-01-07] MEDS: oxyCODONE HCL 5 MG TABLET PO PRN ×2 (17:58→22:00)
[2019-01-07 18:43] VITALS: BMI 25.1
--- NOTE | 2019-01-07 20:11 | OP ---
DATE OF OPERATION: 01/07/2019 SURGEON: Albert Moya MD MEDICAL OFFICER: Gelacio Moya MD PREOPERATIVE DIAGNOSIS: Septic, infected wound, left hip. POSTOPERATIVE DIAGNOSIS: Septic, infected wound, left hip. OPERATION PERFORMED: 1. Removal of wound vacuum assisted closure. 2. Insertion of clean wound vacuum assisted closure following a washout and debridement of soft tissues. ANESTHESIA: General. ANTIBIOTICS GIVEN: Nil. Antibiotics given on the floor. OPERATION DETAILS: Patient in the lateral decubitus position under general anesthesia, left side up, left upper extremity was window draped. The wound was isolated. The skin cleansed with Betadine scrub solution, wiped off with alcohol, DuraPrep applied. Wound VAC was removed. The tissues and cavity were definitely smaller. This was a subjective visualization of the wound. The measurements were as follows: Length 14 cm, width 4 cm, and depth 7 cm. The tissues appeared healthy. For some areas of superficial fibrinous slough, this was removed with a washout. The entire wound was cleansed and washed with Betadine scrub for the sake of removal of biofilm. A 5-L saline washout was performed. Prior to the washout, 3 wound cultures were taken from the deep aspect of the wound. Once the washout had been completed and just prior to the insertion of the new wound VAC, repeat 3 cultures were taken accordingly. Six cultures in total. The wound VAC was stuffed into the actual wound. It was sealed and the suction device working well at the time the patient was extricated out of the operating room. No complications. MD OSVALDO Oconnor/[id number]
[2019-01-07] MEDS: DULoxetine HCL 30 MG CAPSULE.DR (FP) PO SCH (21:22)
[2019-01-07] MEDS: SENNOSIDES/DOCUSATE COMBO (SENNA PLUS) TABLET (UD) PO SCH (21:23)
[2019-01-07] MEDS: oxyCODONE HCL 40 MG SUSTAINED ACTING TABLET PO SCH (21:29)
[2019-01-07] MEDS: diazePAM 5 MG TABLET PO PRN (22:00)
[2019-01-07] MEDS ORDERED: SENNOSIDES 8.6MG TABLET (FP) PO PRN (22:00)
[2019-01-07] MEDS ORDERED: diphenhydrAMINE HCL 25 MG CAPSULE (FP) PO PRN (22:00)
[2019-01-08] MEDS: oxyCODONE HCL 5 MG TABLET PO PRN ×5 (02:05→18:19)
[2019-01-08] MEDS: PREGABALIN 100 MG CAPSULE PO SCH ×3 (05:58→21:14)
[2019-01-08] MEDS: DOCUSATE SODIUM 100 MG CAPSULE (FP) PO SCH ×3 (05:58→21:14)
[2019-01-08] MEDS: OXYBUTYNIN CHLORIDE 5 MG TABLET PO SCH ×3 (06:00→21:14)
[2019-01-08 07:37] LABS: HEMATOCRIT 27.6 % (32.4-45.2); MCH 24.6 pg (25.7-33.7); MCHC 32.5 g/dl (32.0-36.0); MEAN CELL VOLUME 75.8 fl (80-96); MEAN PLT VOLUME 7.1 fl (7.5-11.1); PLATELET COUNT 388 K/MM3 (134-434); RBC 3.64 M/mm3 (3.60-5.2); RDW 21.1 % (11.6-15.6)
[2019-01-08 07:41] LABS: ANION GAP 5 MMOL/L (8-16); BLOOD UREA NITROGEN 13 mg/dL (7-18); CALCIUM 8.5 mg/dL (8.5-10.1); CHLORIDE 109 mmol/L (98-107); CO2 24 mmol/L (21-32); CREATININE 0.6 mg/dL (0.55-1.3); GLUCOSE,RANDOM 100 mg/dL (74-106); POTASSIUM 4.5 mmol/L (3.5-5.1); SODIUM 137 mmol/L (136-145)
[2019-01-08] MEDS: AMINO ACIDS/PROTEIN HYDROLYS 30 ML LIQUID.PKT PO SCH ×2 (08:34→17:34)
[2019-01-08] MEDS: FERROUS SO4 325 MG TABLET (FP) PO SCH ×2 (08:34→17:34)
[2019-01-08] MEDS ORDERED: ERTAPENEM SODIUM 1 GM VIAL IVPB SCH (10:00)
[2019-01-08] MEDS: CYCLOBENZAPRINE HCL 5 MG TABLET PO SCH (10:26)
[2019-01-08] MEDS: DULoxetine HCL 30 MG CAPSULE.DR (FP) PO SCH ×2 (10:26→21:14)
[2019-01-08] MEDS: POLYETHYLENE GLYCOL 3350 119 GM BTL PO SCH (10:27)
[2019-01-08] MEDS: ASPIRIN 325 MG ENTERIC COATED TABLET (FP) PO SCH (10:27)
[2019-01-08] MEDS: LISINOPRIL 10 MG TABLET (FP) PO SCH (10:28)
[2019-01-08] MEDS: oxyCODONE HCL 40 MG SUSTAINED ACTING TABLET PO SCH ×3 (10:28→21:14)
[2019-01-08] MEDS: SENNOSIDES/DOCUSATE COMBO (SENNA PLUS) TABLET (UD) PO SCH ×3 (10:28→21:18)
[2019-01-08] MEDS: PANTOPRAZOLE 40 MG TABLET (FP) PO SCH (10:29)
[2019-01-08] MEDS: ERTAPENEM SODIUM 1 GM in SODIUM CHLORIDE 50 ML IVPB SCH (10:34)
[2019-01-08] MEDS: LIDOCAINE 5% TOPICAL PATCH TP SCH (13:12)
--- NOTE | 2019-01-08 18:04 | PN ---
Physical Exam: SUBJECTIVE: Patient seen and examined 24HR EVENTS -daptomycin not being administered, due to absence of ID approval -s/p left hip I&D, and exchange of wound vac dressing on 01/07 -intra-op wound cultures x 6 (2 x baceriology, 2 x AFB, 2 x fungal) sent to lab OBJECTIVE: Vital Signs Period Temp Pulse Resp BP Sys/Vargas Pulse Ox Last 24 Hr 97.8 F-98.5 F 94-110 18-22 118-140/71-82 99-99 GENERAL: The patient is awake, alert, and fully oriented, in no acute distress. HEAD: Normal with no signs of trauma. EYES: PERRL, extraocular movements intact, sclera anicteric, conjunctiva clear. No ptosis. ENT: Ears normal, nares patent, oropharynx clear without exudates, moist mucous membranes. poor dentition NECK: Trachea midline, full range of motion, supple. LUNGS: Breath sounds equal, clear to auscultation bilaterally, no wheezes, no crackles, no accessory muscle use. HEART: Regular rate and rhythm, S1, S2 without murmur, rub or gallop. ABDOMEN: Soft, nontender, obese abdomen, normoactive bowel sounds, no guarding, no rebound, no hepatosplenomegaly, no masses. EXTREMITIES: 2+ pulses, warm, well-perfused, MSC: LEft hip with large open wound - packed and connected to wound vac, clear dressing place. minimal ROM. NEUROLOGICAL: Normal speech, mostly wheelchair and bedbound PSYCH: Normal mood, normal affect. SKIN: Warm, dry, Laboratory Results - last 24 hr 01/08/19 01/08/19 06:40 06:40 WBC 10.0 RBC 3.64 Hgb 9.0 L Hct 27.6 L D MCV 75.8 L MCH 24.6 L MCHC 32.5 RDW 21.1 H Plt Count 388 D MPV 7.1 L Sodium 137 Potassium 4.5 Chloride 109 H Carbon Dioxide 24 Anion Gap 5 L BUN 13 Creatinine 0.6 Creat Clearance w eGFR 100.97 Random Glucose 100 Calcium 8.5 Active Medications Generic Name Dose Route Start Last Admin Trade Name Freq PRN Reason Stop Dose Admin Al Hydroxide/Mg Hydroxide 30 ml 01/07/19 13:19 Mylanta Oral Suspension - PO Q6HPO PRN DYSPEPSIA Amino Acids 30 ml 01/07/19 17:30 01/08/19 17:34 Prosource No Carb Liquid Pkt PO 30 ml BID@0800,1730 [facility] Administration Aspirin 325 mg 01/08/19 10:00 01/08/19 10:27 Ecotrin - PO 325 mg DAILY [facility] Administration Cyclobenzaprine HCl 5 mg 01/08/19 10:00 01/08/19 10:26 Cyclobenzaprine Hcl PO 5 mg DAILY [facility] Administration Daptomycin 500 mg 01/07/19 17:30 Cubicin (Restricted To Id) - IVPB DAILY@1730 [facility] Protocol Diazepam 5 mg 01/07/19 13:19 01/07/19 22:00 Valium - PO 5 mg HS PRN Administration ANXIETY Diphenhydramine HCl 25 mg 01/07/19 22:00 Benadryl - PO HS PRN INSOMNIA Docusate Sodium 100 mg 01/07/19 14:00 01/08/19 13:13 Colace - PO Not Given TID [facility] Duloxetine HCl 30 mg 01/07/19 22:00 01/08/19 10:26 Cymbalta - PO 30 mg BID [facility] Administration Fentanyl 50 mcg 01/07/19 14:02 Sublimaze Injection - IVPUSH [id number] PRN PAIN-PACU ORDER X 4 DOSES ONLY Ferrous Sulfate 325 mg 01/07/19 17:30 01/08/19 17:34 Feosol - PO 325 mg BIDWM [facility] Administration Ertapenem 1 gm/ Sodium 50 mls @ 100 mls/hr 01/08/19 10:00 01/08/19 10:34 Chloride IVPB 100 mls/hr DAILY [facility] Administration Lidocaine 1 patch 01/08/19 13:00 01/08/19 13:12 Lidoderm Patch - TP 1 patch DAILY [facility] Administration Lisinopril 10 mg 01/08/19 10:00 01/08/19 10:28 Prinivil PO 10 mg DAILY [facility] Administration Magnesium Hydroxide 30 ml 01/07/19 13:21 Milk Of Magnesia - PO PRN PRN CONSTIPATION Miscellaneous 1 each 01/08/19 22:00 Lidoderm Patch Removal MC DAILY@2200 [facility] Ondansetron HCl 4 mg 01/07/19 13:21 Zofran Injection IVPUSH Q6H PRN [facility] Oxybutynin Chloride 5 mg 01/07/19 14:00 01/08/19 13:14 Ditropan - PO 5 mg TID [facility] Administration Oxycodone HCl 80 mg 01/07/19 22:00 01/08/19 11:50 Oxycontin - PO 80 mg BID [facility] Administration Oxycodone HCl 30 mg 01/07/19 16:35 01/08/19 14:23 Roxicodone - PO 30 mg Q4H PRN Administration PAIN LEVEL 7 - 10 Pantoprazole Sodium 40 mg 01/08/19 10:00 01/08/19 10:29 Protonix - PO 40 mg DAILY [facility] Administration Polyethylene Glycol 17 gm 01/08/19 10:00 01/08/19 10:27 Miralax (For Daily Use) - PO Not Given DAILY [facility] Pregabalin 100 mg 01/07/19 14:00 01/08/19 13:14 Lyrica - PO 100 mg TID [facility] Administration Senna/Docusate Sodium 2 tablet 01/07/19 22:00 01/08/19 11:00 Pericolace - PO Not Given BID [facility] Simethicone 40 mg 01/07/19 13:19 Mylicon Liquid - PO Q6H PRN INDIGESTION ASSESSMENT/PLAN: Patient is a 63 year old female with a significant past medical history of hypertension, anxiety, depression, chronic pain and chronic left hip left wound. who has undergone left hip debridement of soft tissue, muscle, bone, VAC application, multiple I and D wound washes, s/p osteotomy left femur, removal of hardware (explant femoral component), I&D left hip wound ; hardware removed by surgery. Patients presented for elective left wound washout on 01/07. Wound, open, hip or thigh, s/p I&D left hip wound - Chronic left hip wound-with ESBL E coli and E Faecalis - continue dapto (needs ID approval-consult placed) and meropenem for minimum 8 weeks - pain control with oxycodone, lyrica, flexeril and lidoderm patch - R subcl PICC line in place for longerm abx administration hypertension: lisinopril 10mg daily Depression - Continue Cymbalta, - Valium as needed. Anemia -trend H/H -Oral iron daily Urinary incontinence: - Cont oxybutynin Severe malnutrition - Continue Prosource, Ensure, Magic Cup PPX: - PPI daily - bowel regimen with senna, miralax and colace -simethicone PRN gas pain -prosource BID -ASA 325mg daily DISPO: Full code Problem List - Problems (1) Anemia Code(s): D64.9 - ANEMIA, UNSPECIFIED (2) Depression Code(s): F32.9 - MAJOR DEPRESSIVE DISORDER, SINGLE EPISODE, UNSPECIFIED (3) HTN (hypertension) Code(s): I10 - ESSENTIAL (PRIMARY) HYPERTENSION (4) Prophylactic measure Code(s): Z29.9 - ENCOUNTER FOR PROPHYLACTIC MEASURES, UNSPECIFIED (5) Urinary incontinence Code(s): R32 - UNSPECIFIED URINARY INCONTINENCE (6) Wound, open, hip or thigh Code(s): DED5511 - Visit type - Emergency Visit Emergency Visit: No - New Patient This patient is new to me today: No - Critical Care Critical Care patient: No - Discharge Referral Referred to [facility] Med P.C.: No
[2019-01-08] MEDS ORDERED: PT OWN MED DRAWER 7, Y5N ONE ×2 (18:35→21:41)
[2019-01-08] MEDS: DAPTOMYCIN 500 MG in SODIUM CHLORIDE 50 ML IVPB SCH (19:41)
[2019-01-08] MEDS: diazePAM 5 MG TABLET PO PRN (21:14)
[2019-01-08] MEDS: LIDOCAINE PATCH REMOVAL MC SCH (22:49)
[2019-01-09] MEDS: oxyCODONE HCL 5 MG TABLET PO PRN ×5 (01:08→20:54)
[2019-01-09] MEDS: DOCUSATE SODIUM 100 MG CAPSULE (FP) PO SCH ×3 (05:57→23:03)
[2019-01-09] MEDS: PREGABALIN 100 MG CAPSULE PO SCH ×3 (05:57→23:02)
[2019-01-09] MEDS: OXYBUTYNIN CHLORIDE 5 MG TABLET PO SCH ×3 (05:57→23:02)
[2019-01-09] MEDS: DAPTOmycin 500 MG VIAL (RESTRICTED TO ID) IVPB SCH (07:03)
[2019-01-09 07:26] LABS: HEMATOCRIT 29.8 % (32.4-45.2); HEMOGLOBIN 9.6 GM/dL (10.7-15.3); MCH 24.6 pg (25.7-33.7); MCHC 32.2 g/dl (32.0-36.0); MEAN CELL VOLUME 76.4 fl (80-96); MEAN PLT VOLUME 7.3 fl (7.5-11.1); PLATELET COUNT 390 K/MM3 (134-434); RDW 20.8 % (11.6-15.6)
[2019-01-09] MEDS: FERROUS SO4 325 MG TABLET (FP) PO SCH ×2 (08:49→17:18)
[2019-01-09] MEDS: AMINO ACIDS/PROTEIN HYDROLYS 30 ML LIQUID.PKT PO SCH ×2 (08:49→17:18)
--- NOTE | 2019-01-09 08:52 | PN ---
Physical Exam: SUBJECTIVE: Patient seen and examined 24HR EVENTS -no acute changes OBJECTIVE: Vital Signs Period Temp Pulse Resp BP Sys/Vargas Pulse Ox Last 24 Hr 97.8 F-98.5 F 88-110 20-22 123-140/64-80 99 GENERAL: The patient is awake, alert, and fully oriented, in no acute distress. HEAD: Normal with no signs of trauma. EYES: PERRL, extraocular movements intact, sclera anicteric, conjunctiva clear. No ptosis. ENT: Ears normal, nares patent, oropharynx clear without exudates, moist mucous membranes. poor dentition NECK: Trachea midline, full range of motion, supple. LUNGS: Breath sounds equal, clear to auscultation bilaterally, no wheezes, no crackles, no accessory muscle use. HEART: Regular rate and rhythm, S1, S2 without murmur, rub or gallop. ABDOMEN: Soft, nontender, obese abdomen, normoactive bowel sounds, no guarding, no rebound, no hepatosplenomegaly, no masses. EXTREMITIES: 2+ pulses, warm, well-perfused, MSC: LEft hip with large open wound - packed and connected to wound vac, clear dressing place. minimal ROM. NEUROLOGICAL: Normal speech, mostly wheelchair and bedbound PSYCH: Normal mood, normal affect. SKIN: Warm, dry, Laboratory Results - last 24 hr 01/09/19 06:20 WBC 8.0 RBC 3.90 Hgb 9.6 L Hct 29.8 L MCV 76.4 L MCH 24.6 L MCHC 32.2 RDW 20.8 H Plt Count 390 MPV 7.3 L Active Medications Generic Name Dose Route Start Last Admin Trade Name Freq PRN Reason Stop Dose Admin Al Hydroxide/Mg Hydroxide 30 ml 01/07/19 13:19 Mylanta Oral Suspension - PO Q6HPO PRN DYSPEPSIA Amino Acids 30 ml 01/07/19 17:30 01/09/19 08:49 Prosource No Carb Liquid Pkt PO 30 ml BID@0800,1730 [facility] Administration Aspirin 325 mg 01/08/19 10:00 01/08/19 10:27 Ecotrin - PO 325 mg DAILY [facility] Administration Cyclobenzaprine HCl 5 mg 01/08/19 10:00 01/08/19 10:26 Cyclobenzaprine Hcl PO 5 mg DAILY [facility] Administration Diazepam 5 mg 01/07/19 13:19 01/08/19 21:14 Valium - PO 5 mg HS PRN Administration ANXIETY Diphenhydramine HCl 25 mg 01/07/19 22:00 Benadryl - PO HS PRN INSOMNIA Docusate Sodium 100 mg 01/07/19 14:00 01/09/19 05:57 Colace - PO 100 mg TID [facility] Administration Duloxetine HCl 30 mg 01/07/19 22:00 01/08/19 21:14 Cymbalta - PO 30 mg BID [facility] Administration Fentanyl 50 mcg 01/07/19 14:02 Sublimaze Injection - IVPUSH [id number] PRN PAIN-PACU ORDER X 4 DOSES ONLY Ferrous Sulfate 325 mg 01/07/19 17:30 01/09/19 08:49 Feosol - PO 325 mg BIDWM [facility] Administration Ertapenem 1 gm/ Sodium 50 mls @ 100 mls/hr 01/08/19 10:00 01/08/19 10:34 Chloride IVPB 100 mls/hr DAILY [facility] Administration Daptomycin 500 mg/ Sodium 50 mls @ 50 mls/hr 01/08/19 19:30 01/08/19 19:41 Chloride IVPB 50 mls/hr DAILY@1930 [facility] Administration Lidocaine 1 patch 01/08/19 13:00 01/08/19 13:12 Lidoderm Patch - TP 1 patch DAILY [facility] Administration Lisinopril 10 mg 01/08/19 10:00 01/08/19 10:28 Prinivil PO 10 mg DAILY [facility] Administration Magnesium Hydroxide 30 ml 01/07/19 13:21 Milk Of Magnesia - PO PRN PRN CONSTIPATION Miscellaneous 1 each 01/08/19 22:00 01/08/19 22:49 Lidoderm Patch Removal MC Not Given DAILY@2200 [facility] Ondansetron HCl 4 mg 01/07/19 13:21 Zofran Injection IVPUSH Q6H PRN NAUSEA Oxybutynin Chloride 5 mg 01/07/19 14:00 01/09/19 05:57 Ditropan - PO 5 mg TID [facility] Administration Oxycodone HCl 80 mg 01/07/19 22:00 01/08/19 21:14 Oxycontin - PO 80 mg BID [facility] Administration Oxycodone HCl 30 mg 01/07/19 16:35 01/09/19 05:55 Roxicodone - PO 30 mg Q4H PRN Administration PAIN LEVEL 7 - 10 Pantoprazole Sodium 40 mg 01/08/19 10:00 01/08/19 10:29 Protonix - PO 40 mg DAILY [facility] Administration Polyethylene Glycol 17 gm 01/08/19 10:00 01/08/19 10:27 Miralax (For Daily Use) - PO Not Given DAILY [facility] Pregabalin 100 mg 01/07/19 14:00 01/09/19 05:57 Lyrica - PO 100 mg TID [facility] Administration Senna/Docusate Sodium 2 tablet 01/07/19 22:00 01/08/19 21:18 Pericolace - PO 2 tablet BID [facility] Administration Simethicone 40 mg 01/07/19 13:19 Mylicon Liquid - PO Q6H PRN INDIGESTION ASSESSMENT/PLAN: 63 year old female with a significant past medical history of hypertension, anxiety, depression, chronic pain and chronic left hip left wound. who has undergone left hip debridement of soft tissue, muscle, bone, VAC application, multiple I and D wound washes, s/p osteotomy left femur, removal of hardware (explant femoral component), I&D left hip wound; hardware removed by surgery. Patients presented for elective left wound washout on 01/07. Wound, open, hip or thigh, s/p I&D left hip wound - Chronic left hip wound-with ESBL E coli and E Faecalis - continue dapto and meropenem for minimum 8 weeks as per ID - pain control with oxycodone, lyrica, flexeril and lidoderm patch - R subcl PICC line in place for longerm abx administration hypertension: lisinopril 10mg daily Depression - Continue Cymbalta, - Valium as needed. Anemia -trend H/H -Oral iron daily Urinary incontinence: - Cont oxybutynin Severe malnutrition - Continue Prosource, Ensure, Magic Cup PPX: - PPI daily - bowel regimen with senna, miralax and colace -simethicone PRN gas pain -prosource BID -ASA 325mg daily DISPO: Full code Problem List - Problems (1) Anemia Code(s): D64.9 - ANEMIA, UNSPECIFIED (2) Depression Code(s): F32.9 - MAJOR DEPRESSIVE DISORDER, SINGLE EPISODE, UNSPECIFIED (3) HTN (hypertension) Code(s): I10 - ESSENTIAL (PRIMARY) HYPERTENSION (4) Prophylactic measure Code(s): Z29.9 - ENCOUNTER FOR PROPHYLACTIC MEASURES, UNSPECIFIED (5) Urinary incontinence Code(s): R32 - UNSPECIFIED URINARY INCONTINENCE (6) Wound, open, hip or thigh Code(s): ZPR6951 - Visit type - Emergency Visit Emergency Visit: No - New Patient This patient is new to me today: No - Critical Care Critical Care patient: No - Discharge Referral Referred to [facility] Med P.C.: No
--- NOTE | 2019-01-09 09:12 | PN ---
Progress Note (short form) - Note Progress Note: ID consult dictated imp/reccd 63 yo female with chronic hip infection (infected hardware for several years - that was removed 12/10) she has a vac and a picc line and is on ertapenem and daptomycin for jail treatment- minimum 8 weeks no fevers she was readmitted for repeat washout she feels well pathogens have been ecoli esbl and vref as per prior plan would continue ertapenem and daptomycin jail-now day #26 after hardware was removed needs weekly labs and cpk weekly esr crp,cpk- ordered for tomorrow suspect minimum 8 weeks maybe longer treatment have discussed with DR Jimenez in the past would reccd followup with ID in the [place]- it is not convenient for her to come to [place] and she wishes to go home
[2019-01-09] MEDS ORDERED: PT OWN MED DRAWER 7, Y5N ONE (11:28)
[2019-01-09] MEDS: SENNOSIDES/DOCUSATE COMBO (SENNA PLUS) TABLET (UD) PO SCH ×2 (11:32→23:01)
[2019-01-09] MEDS: DULoxetine HCL 30 MG CAPSULE.DR (FP) PO SCH ×2 (11:34→23:02)
[2019-01-09] MEDS: PANTOPRAZOLE 40 MG TABLET (FP) PO SCH (11:34)
[2019-01-09] MEDS: LISINOPRIL 10 MG TABLET (FP) PO SCH (11:35)
[2019-01-09] MEDS: LIDOCAINE 5% TOPICAL PATCH TP SCH (11:35)
[2019-01-09] MEDS: ASPIRIN 325 MG ENTERIC COATED TABLET (FP) PO SCH (11:35)
[2019-01-09] MEDS: ERTAPENEM SODIUM 1 GM in SODIUM CHLORIDE 50 ML IVPB SCH (11:35)
[2019-01-09] MEDS: POLYETHYLENE GLYCOL 3350 119 GM BTL PO SCH (11:36)
[2019-01-09] MEDS: CYCLOBENZAPRINE HCL 5 MG TABLET PO SCH (11:36)
[2019-01-09] MEDS: oxyCODONE HCL 40 MG SUSTAINED ACTING TABLET PO SCH ×2 (12:23→23:02)
[2019-01-09] MEDS: DAPTOMYCIN 500 MG in SODIUM CHLORIDE 50 ML IVPB SCH (19:40)
[2019-01-09] MEDS: diazePAM 5 MG TABLET PO PRN (20:54)
[2019-01-09] MEDS: LIDOCAINE PATCH REMOVAL MC SCH (23:06)
[2019-01-10] MEDS: oxyCODONE HCL 5 MG TABLET PO PRN ×6 (02:20→23:01)
[2019-01-10] MEDS: PREGABALIN 100 MG CAPSULE PO SCH ×3 (05:56→20:59)
[2019-01-10] MEDS: DOCUSATE SODIUM 100 MG CAPSULE (FP) PO SCH ×3 (05:56→20:59)
[2019-01-10] MEDS: OXYBUTYNIN CHLORIDE 5 MG TABLET PO SCH ×3 (05:56→21:00)
[2019-01-10 07:16] LABS: HEMATOCRIT 29.7 % (32.4-45.2); HEMOGLOBIN 9.6 GM/dL (10.7-15.3); MCH 24.9 pg (25.7-33.7); MCHC 32.2 g/dl (32.0-36.0); MEAN CELL VOLUME 77.5 fl (80-96); MEAN PLT VOLUME 7.1 fl (7.5-11.1); PLATELET COUNT 375 K/MM3 (134-434); RBC 3.83 M/mm3 (3.60-5.2); WHITE BLOOD COUNT 7.3 K/mm3 (4.0-10.0)
[2019-01-10 07:30] LABS: ALBUMIN 2.6 g/dl (3.4-5.0); ALK PHOS 184 U/L (45-117); ANION GAP 4 MMOL/L (8-16); BILIRUBIN,TOTAL 0.1 mg/dL (0.2-1); BLOOD UREA NITROGEN 17 mg/dL (7-18); CALCIUM 8.6 mg/dL (8.5-10.1); CHLORIDE 113 mmol/L (98-107); CO2 26 mmol/L (21-32); CREATININE 0.8 mg/dL (0.55-1.3); GLUCOSE,RANDOM 93 mg/dL (74-106); POTASSIUM 4.9 mmol/L (3.5-5.1); SGOT/AST 11 U/L (15-37); SGPT/ALT 15 U/L (13-61); SODIUM 143 mmol/L (136-145); TOT PROT 6.2 g/dl (6.4-8.2)
--- NOTE | 2019-01-10 07:36 | PN ---
Progress Note (short form) - Note Progress Note: no complaints. denies Cp, SOB, fever, chills, N/V/C/D Current Medications Generic Name Dose Route Start Last Admin Trade Name Freq PRN Reason Stop Dose Admin Al Hydroxide/Mg Hydroxide 30 ml 01/07/19 13:19 Mylanta Oral Suspension - PO Q6HPO PRN DYSPEPSIA Amino Acids 30 ml 01/07/19 17:30 01/09/19 17:18 Prosource No Carb Liquid Pkt PO 30 ml BID@0800,1730 [facility] Administration Aspirin 325 mg 01/08/19 10:00 01/09/19 11:35 Ecotrin - PO 325 mg DAILY [facility] Administration Cyclobenzaprine HCl 5 mg 01/08/19 10:00 01/09/19 11:36 Cyclobenzaprine Hcl PO 5 mg DAILY [facility] Administration Diazepam 5 mg 01/07/19 13:19 01/09/19 20:54 Valium - PO 5 mg HS PRN Administration ANXIETY Diphenhydramine HCl 25 mg 01/07/19 22:00 Benadryl - PO HS PRN INSOMNIA Docusate Sodium 100 mg 01/07/19 14:00 01/10/19 05:56 Colace - PO 100 mg TID [facility] Administration Duloxetine HCl 30 mg 01/07/19 22:00 01/09/19 23:02 Cymbalta - PO 30 mg BID [facility] Administration Fentanyl 50 mcg 01/07/19 14:02 Sublimaze Injection - IVPUSH [id number] PRN PAIN-PACU ORDER X 4 DOSES ONLY Ferrous Sulfate 325 mg 01/07/19 17:30 01/09/19 17:18 Feosol - PO 325 mg BIDWM [facility] Administration Ertapenem 1 gm/ Sodium 50 mls @ 100 mls/hr 01/08/19 10:00 01/09/19 11:35 Chloride IVPB 100 mls/hr DAILY [facility] Administration Daptomycin 500 mg/ Sodium 50 mls @ 50 mls/hr 01/08/19 19:30 01/09/19 19:40 Chloride IVPB 50 mls/hr DAILY@1930 [facility] Administration Lidocaine 1 patch 01/08/19 13:00 01/09/19 11:35 Lidoderm Patch - TP 1 patch DAILY [facility] Administration Lisinopril 10 mg 01/08/19 10:00 01/09/19 11:35 Prinivil PO 10 mg DAILY [facility] Administration Magnesium Hydroxide 30 ml 01/07/19 13:21 Milk Of Magnesia - PO PRN PRN CONSTIPATION Miscellaneous 1 each 01/08/19 22:00 01/09/19 23:06 Lidoderm Patch Removal MC Not Given DAILY@2200 [facility] Ondansetron HCl 4 mg 01/07/19 13:21 Zofran Injection IVPUSH Q6H PRN NAUSEA Oxybutynin Chloride 5 mg 01/07/19 14:00 01/10/19 05:56 Ditropan - PO 5 mg TID [facility] Administration Oxycodone HCl 80 mg 01/07/19 22:00 01/09/19 23:02 Oxycontin - PO 80 mg BID [facility] Administration Oxycodone HCl 30 mg 01/07/19 16:35 01/10/19 06:32 Roxicodone - PO 30 mg Q4H PRN Administration PAIN LEVEL 7 - 10 Pantoprazole Sodium 40 mg 01/08/19 10:00 01/09/19 11:34 Protonix - PO 40 mg DAILY [facility] Administration Polyethylene Glycol 17 gm 01/08/19 10:00 01/09/19 11:36 Miralax (For Daily Use) - PO Not Given DAILY [facility] Pregabalin 100 mg 01/07/19 14:00 01/10/19 05:56 Lyrica - PO 100 mg TID [facility] Administration Senna/Docusate Sodium 2 tablet 01/07/19 22:00 01/09/19 23:01 Pericolace - PO 2 tablet BID [facility] Administration Simethicone 40 mg 01/07/19 13:19 Mylicon Liquid - PO Q6H PRN INDIGESTION Last Vital Signs Temp Pulse Resp BP Pulse Ox 97.8 F 88 20 144/78 99 01/10/19 06:34 01/10/19 06:34 01/10/19 06:34 01/10/19 06:34 01/09/19 21:00 General NAD CV S1 S2 RRR no murmur/rub/gallop Lungs CTA B/L no wheezing/rales/rhonchi Abdomen soft NT/ND Extremities L hip dressing intact with wound vac CBCD WBC 7.3 K/mm3 (4.0-10.0) 01/10/19 06:30 RBC 3.83 M/mm3 (3.60-5.2) 01/10/19 06:30 Hgb 9.6 GM/dL (10.7-15.3) L 01/10/19 06:30 Hct 29.7 % (32.4-45.2) L 01/10/19 06:30 MCV 77.5 fl (80-96) L 01/10/19 06:30 MCHC 32.2 g/dl (32.0-36.0) 01/10/19 06:30 RDW 21.0 % (11.6-15.6) H 01/10/19 06:30 Plt Count 375 K/MM3 (134-434) 01/10/19 06:30 MPV 7.1 fl (7.5-11.1) L 01/10/19 06:30 CMP Sodium 143 mmol/L (136-145) 01/10/19 06:30 Potassium 4.9 mmol/L (3.5-5.1) 01/10/19 06:30 Chloride 113 mmol/L (98-107) H 01/10/19 06:30 Carbon Dioxide 26 mmol/L (21-32) 01/10/19 06:30 Anion Gap 4 MMOL/L (8-16) L 01/10/19 06:30 BUN 17 mg/dL (7-18) 01/10/19 06:30 Creatinine 0.8 mg/dL (0.55-1.3) 01/10/19 06:30 Creat Clearance w eGFR 72.44 (>60) 01/10/19 06:30 Calcium 8.6 mg/dL (8.5-10.1) 01/10/19 06:30 Total Bilirubin 0.1 mg/dL (0.2-1) L 01/10/19 06:30 AST 11 U/L (15-37) L 01/10/19 06:30 ALT 15 U/L (13-61) 01/10/19 06:30 Alkaline Phosphatase 184 U/L (45-117) H 01/10/19 06:30 Total Protein 6.2 g/dl (6.4-8.2) L 01/10/19 06:30 Albumin 2.6 g/dl (3.4-5.0) L 01/10/19 06:30 Microbiology 01/07/19 13:42 Hip - Left Gram Stain - Final 01/07/19 13:42 Hip - Left Wound Culture - Final NO AEROBIC OR ANAEROBIC GROWTH OBTAINED. 01/07/19 13:28 Hip - Left Gram Stain - Final 01/07/19 13:28 Hip - Left Wound Culture - Final NO AEROBIC OR ANAEROBIC GROWTH OBTAINED. 01/07/19 13:29 Hip - Left RAND Preparation - Preliminary 01/07/19 13:29 Hip - Left Fungal Culture - Preliminary 01/07/19 13:29 Hip - Left RAND Preparation - Preliminary 01/07/19 13:29 Hip - Left Fungal Culture - Preliminary 01/07/19 13:29 Hip - Left AFB Smear Concentration - Final 01/07/19 13:29 Hip - Left Mycobacterial Culture - Preliminary 01/07/19 13:29 Hip - Left AFB Smear Concentration - Final 01/07/19 13:29 Hip - Left Mycobacterial Culture - Preliminary Assessment and Plan 63 year old female with a significant past medical history of hypertension, anxiety, depression, chronic pain and chronic left hip left wound. who has undergone left hip debridement of soft tissue, muscle, bone, VAC application, multiple I and D wound washes, s/p osteotomy left femur, removal of hardware ( explant femoral component), I&D left hip wound; hardware removed by surgery. Patients presented for elective left wound washout on 01/07. 1. chronic healing wound- open with wound vac in place. with washout on 01/07. cx all returned negative. as per pt ortho is unsure if abx are needed going forward. conversation between them and ID to determine abx. would cont dapto/ meropenem at this time. further recommendations per primary team, ortho 2. HTN- controlled. cont home medication 3. Depression- cont ome medications 4. Iron def anemia- cont supplements. repeat iron studies in 3 months. no indication for transfusion 5. urine incontinence- cont home medication 6. severe malnutrition- dietary supplements 7. DVT ppx- asa and SOUTH only per primary team 8. expressed needs to go home today for personal issues she needs to address. states primary was plan to d/c her today. Visit type - Emergency Visit Emergency Visit: Yes ED Registration Date: 01/07/19 Care time: The patient presented to the Emergency Department on the above date and was hospitalized for further evaluation of their emergent condition. - New Patient This patient is new to me today: Yes Date on this admission: 01/10/19 - Critical Care Critical Care patient: No - Discharge Referral Referred to [facility] Med P.C.: No
[2019-01-10] MEDS ORDERED: PT OWN MED DRAWER 7, Y5N ONE (09:22)
[2019-01-10] MEDS: CYCLOBENZAPRINE HCL 5 MG TABLET PO SCH (09:38)
[2019-01-10] MEDS: AMINO ACIDS/PROTEIN HYDROLYS 30 ML LIQUID.PKT PO SCH ×2 (09:38→18:35)
[2019-01-10] MEDS: FERROUS SO4 325 MG TABLET (FP) PO SCH ×2 (09:38→18:33)
[2019-01-10] MEDS: SENNOSIDES/DOCUSATE COMBO (SENNA PLUS) TABLET (UD) PO SCH ×2 (09:39→20:59)
[2019-01-10] MEDS: DULoxetine HCL 30 MG CAPSULE.DR (FP) PO SCH ×2 (09:39→20:59)
[2019-01-10] MEDS: ASPIRIN 325 MG ENTERIC COATED TABLET (FP) PO SCH (09:39)
[2019-01-10] MEDS: LISINOPRIL 10 MG TABLET (FP) PO SCH (09:40)
[2019-01-10] MEDS: PANTOPRAZOLE 40 MG TABLET (FP) PO SCH (09:40)
[2019-01-10] MEDS: ERTAPENEM SODIUM 1 GM in SODIUM CHLORIDE 50 ML IVPB SCH (10:03)
[2019-01-10] MEDS: POLYETHYLENE GLYCOL 3350 119 GM BTL PO SCH (10:12)
[2019-01-10] MEDS: LIDOCAINE 5% TOPICAL PATCH TP SCH (10:23)
[2019-01-10] MEDS: oxyCODONE HCL 40 MG SUSTAINED ACTING TABLET PO SCH ×2 (11:54→20:59)
[2019-01-10 15:35] VITALS: PULSE 96
[2019-01-10] MEDS: DAPTOMYCIN 500 MG in SODIUM CHLORIDE 50 ML IVPB SCH (18:49)
[2019-01-10] MEDS: LIDOCAINE PATCH REMOVAL MC SCH (21:00)
[2019-01-10] MEDS ORDERED: diazePAM 5 MG TABLET PO ONE (21:30)
[2019-01-11] MEDS: oxyCODONE HCL 5 MG TABLET PO PRN ×3 (05:57→14:33)
[2019-01-11] MEDS: OXYBUTYNIN CHLORIDE 5 MG TABLET PO SCH (05:57)
[2019-01-11] MEDS: DOCUSATE SODIUM 100 MG CAPSULE (FP) PO SCH (05:57)
[2019-01-11] MEDS: PREGABALIN 100 MG CAPSULE PO SCH (06:07)
--- NOTE | 2019-01-11 07:59 | PN ---
Progress Note (short form) - Note Progress Note: no complaints. denies Cp, SOB, fever, chills, N/V/C/D Current Medications Generic Name Dose Route Start Last Admin Trade Name Mattq PRN Reason Stop Dose Admin Al Hydroxide/Mg Hydroxide 30 ml 01/07/19 13:19 Mylanta Oral Suspension - PO Q6HPO PRN DYSPEPSIA Amino Acids 30 ml 01/07/19 17:30 01/10/19 18:35 Prosource No Carb Liquid Pkt PO 30 ml BID@0800,1730 ELKE Administration Aspirin 325 mg 01/08/19 10:00 01/10/19 09:39 Ecotrin - PO 325 mg DAILY ELKE Administration Cyclobenzaprine HCl 5 mg 01/08/19 10:00 01/10/19 09:38 Cyclobenzaprine Hcl PO 5 mg DAILY ELKE Administration Diphenhydramine HCl 25 mg 01/07/19 22:00 01/10/19 21:00 Benadryl - PO 25 mg HS PRN Administration INSOMNIA Docusate Sodium 100 mg 01/07/19 14:00 01/11/19 05:57 Colace - PO 100 mg TID ELKE Administration Duloxetine HCl 30 mg 01/07/19 22:00 01/10/19 20:59 Cymbalta - PO 30 mg BID ELKE Administration Fentanyl 50 mcg 01/07/19 14:02 Sublimaze Injection - IVPUSH [id number] PRN PAIN-PACU ORDER X 4 DOSES ONLY Ferrous Sulfate 325 mg 01/07/19 17:30 01/10/19 18:33 Feosol - PO 325 mg BIDWM ELKE Administration Ertapenem 1 gm/ Sodium 50 mls @ 100 mls/hr 01/08/19 10:00 01/10/19 10:03 Chloride IVPB 100 mls/hr DAILY ELKE Administration Daptomycin 500 mg/ Sodium 50 mls @ 50 mls/hr 01/08/19 19:30 01/10/19 18:49 Chloride IVPB 50 mls/hr DAILY@1930 ELKE Administration Lidocaine 1 patch 01/08/19 13:00 01/10/19 10:23 Lidoderm Patch - TP 1 patch DAILY ELKE Administration Lisinopril 10 mg 01/08/19 10:00 01/10/19 09:40 Prinivil PO 10 mg DAILY ELKE Administration Magnesium Hydroxide 30 ml 01/07/19 13:21 Milk Of Magnesia - PO PRN PRN CONSTIPATION Miscellaneous 1 each 01/08/19 22:00 01/10/19 21:00 Lidoderm Patch Removal MC 1 each DAILY@2200 ELKE Administration Ondansetron HCl 4 mg 01/07/19 13:21 Zofran Injection IVPUSH Q6H PRN NAUSEA Oxybutynin Chloride 5 mg 01/07/19 14:00 01/11/19 05:57 Ditropan - PO 5 mg TID ELKE Administration Oxycodone HCl 80 mg 01/07/19 22:00 01/10/19 20:59 Oxycontin - PO 80 mg BID ELKE Administration Oxycodone HCl 30 mg 01/10/19 18:13 01/11/19 05:57 Roxicodone - PO 30 mg Q4H PRN Administration PAIN LEVEL 7 - 10 Pantoprazole Sodium 40 mg 01/08/19 10:00 01/10/19 09:40 Protonix - PO 40 mg DAILY ELKE Administration Polyethylene Glycol 17 gm 01/08/19 10:00 01/10/19 10:12 Miralax (For Daily Use) - PO Not Given DAILY [facility] Pregabalin 100 mg 01/07/19 14:00 01/11/19 06:07 Lyrica - PO 100 mg TID [facility] Administration Senna/Docusate Sodium 2 tablet 01/07/19 22:00 01/10/19 20:59 Pericolace - PO 2 tablet BID [facility] Administration Simethicone 40 mg 01/07/19 13:19 Mylicon Liquid - PO Q6H PRN INDIGESTION Last Vital Signs Temp Pulse Resp BP Pulse Ox 98 F 96 H 20 113/77 99 01/10/19 16:53 01/10/19 16:53 01/10/19 16:53 01/10/19 16:53 01/10/19 21:00 General NAD CV S1 S2 RRR no murmur/rub/gallop Lungs CTA B/L no wheezing/rales/rhonchi Abdomen soft NT/ND Extremities L hip dressing intact with wound vac Assessment and Plan 63 year old female with a significant past medical history of hypertension, anxiety, depression, chronic pain and chronic left hip left wound. who has undergone left hip debridement of soft tissue, muscle, bone, VAC application, multiple I and D wound washes, s/p osteotomy left femur, removal of hardware ( explant femoral component), I&D left hip wound; hardware removed by surgery. Patients presented for elective left wound washout on 01/07. 1. chronic healing wound- open with wound vac in place. with washout on 01/07. cx all returned negative. as per pt ortho is unsure if abx are needed going forward. conversation between them and ID to determine abx. would cont dapto/ meropenem at this time. further recommendations per primary team, ortho 2. HTN- controlled. cont home medication 3. Depression- cont ome medications 4. Iron def anemia- cont supplements. repeat iron studies in 3 months. no indication for transfusion 5. urine incontinence- cont home medication 6. severe malnutrition- dietary supplements 7. DVT ppx- asa and SOUTH only per primary team 8. will continue to follow this patient with you. Visit type - Emergency Visit Emergency Visit: No - New Patient This patient is new to me today: No - Critical Care Critical Care patient: No - Discharge Referral Referred to [facility] Med [facility] No
[2019-01-11] MEDS: AMINO ACIDS/PROTEIN HYDROLYS 30 ML LIQUID.PKT PO SCH (08:51)
[2019-01-11] MEDS: FERROUS SO4 325 MG TABLET (FP) PO SCH (08:51)
[2019-01-11] MEDS ORDERED: PT OWN MED DRAWER 7, Y5N ONE (10:33)
[2019-01-11] MEDS: SENNOSIDES/DOCUSATE COMBO (SENNA PLUS) TABLET (UD) PO SCH (10:44)
[2019-01-11] MEDS: LISINOPRIL 10 MG TABLET (FP) PO SCH (10:45)
[2019-01-11] MEDS: PANTOPRAZOLE 40 MG TABLET (FP) PO SCH (10:45)
[2019-01-11] MEDS: DULoxetine HCL 30 MG CAPSULE.DR (FP) PO SCH (10:45)
[2019-01-11] MEDS: ASPIRIN 325 MG ENTERIC COATED TABLET (FP) PO SCH (10:45)
[2019-01-11] MEDS: CYCLOBENZAPRINE HCL 5 MG TABLET PO SCH (10:45)
[2019-01-11] MEDS: LIDOCAINE 5% TOPICAL PATCH TP SCH (10:46)
[2019-01-11] MEDS: ERTAPENEM SODIUM 1 GM in SODIUM CHLORIDE 50 ML IVPB SCH (10:46)
[2019-01-11 12:16] VITALS: BP 124/72; TEMP 99.4
[2019-01-11] MEDS: POLYETHYLENE GLYCOL 3350 119 GM BTL PO SCH (12:25)
[2019-01-11] MEDS: oxyCODONE HCL 40 MG SUSTAINED ACTING TABLET PO SCH (12:26)
== END 2019-01-11 14:46 | disposition left against medical advice (07) | DRG 907 ==
LOC: JASU-SURG 09:17 → JSAMEDAYSX 13:24 → J8W 17:05
PROVIDERS: ADMIT Orthopaedic Surgery Orthopaedic Surgery of the Spine; ATTEND Orthopaedic Surgery Orthopaedic Surgery of the Spine
PROC: 0JDM0ZZ Extraction of Left Upper Leg Subcutaneous Tissue and Fascia, Open Approach (ICD-10-PCS; principal; 2019-01-11)
PROC: 2W0PX6Z Change Pressure Dressing on Left Upper Leg (ICD-10-PCS; 2019-01-11)
PROC: 3E1038Z Irrigation of Skin and Mucous Membranes using Irrigating Substance, Percutaneous Approach (ICD-10-PCS; 2019-01-11)
DX: T81.89XA Other complications of procedures, not elsewhere classified, initial encounter (principal); E43 Unspecified severe protein-calorie malnutrition; S71.002A Unspecified open wound, left hip, initial encounter; Y84.8 Other medical procedures as the cause of abnormal reaction of the patient, or of later complication, without mention of misadventure at the time of the procedure; Y83.8 Other surgical procedures as the cause of abnormal reaction of the patient, or of later complication, without mention of misadventure at the time of the procedure; Y92.89 Other specified places as the place of occurrence of the external cause; D50.9 Iron deficiency anemia, unspecified; D64.9 Anemia, unspecified; R32 Unspecified urinary incontinence; I10 Essential (primary) hypertension; F41.9 Anxiety disorder, unspecified; F17.210 Nicotine dependence, cigarettes, uncomplicated; Z96.612 Presence of left artificial shoulder joint; Z96.611 Presence of right artificial shoulder joint
CPT/HCPCS: 36415; 80048; 80053; 82308; 82550; 85027; 85651; 86140; 87070; 87102; 87116; 87205; 87206; 87210; 94760; 97116-GP; J0878

== ENCOUNTER 2019-01-11 21:41 | Inpatient (IN) | payer OTHER, MEDICARE ==
--- NOTE | 2019-01-11 21:54 | PDOC ---
Rapid Medical Evaluation Chief Complaint: Pain Time Seen by Provider: 01/11/19 21:51 Medical Evaluation: Allergies Allergy/AdvReac Type Severity Reaction Status Date / Time etomidate Allergy Severe Rash Verified 10/08/18 16:03 latex Allergy Severe Rash Verified 10/08/18 16:03 morphine Allergy Severe Rash Verified 10/08/18 16:03 01/11/19 21:53 I have performed a brief in-person evaluation of this patient. The patient presents with a chief complaint of: ? L AMA from floor today and now here for readmission. Pt s/p admission 01/07/19 for elective L wound wash out , has vac in place and was receiving meropenem/dapto through PICC but left today because she had to take care of personal issues per records. H/o chronic L hip wound w/ multiple debridement, I&D wash outs, s/p osteotomy L femur, removal of hardware, HTN, anxiety, depression Pertinent physical exam findings:HR 128, afebrile, in NAD, will defer rest of exam to ED provider I have ordered the following:labs The patient will proceed to the ED for further evaluation. 01/11/19 21:59 Discharge Disposition - Diagnosis Wound, open, hip or thigh - Referrals - Patient Instructions - Post Discharge Activity
--- NOTE | 2019-01-12 01:26 | PDOC ---
History of Present Illness - General Chief Complaint: Pain Stated Complaint: PAIN Time Seen by Provider: 01/11/19 21:51 - History of Present Illness Initial Comments: 63 year old female with a significant past medical history of hypertension, anxiety, depression, chronic pain and chronic left hip left wound. who has undergone left hip debridement of soft tissue, muscle, bone, VAC application, multiple I and D wound washes, s/p osteotomy left femur, removal of hardware ( explant femoral component), I&D left hip wound; hardware removed by surgery. Patient presented to our institution on 01/07 for wound debridement and IV antibiotics but AMA'd because of "important housing documentation" on 01/11. She returns to our ED with medport in place on right chest for further IV abx. Denies any symptoms except for pain in both of her hips. 01/12/19 01:35 Past History - Past Medical History Allergies/Adverse Reactions: Allergies Allergy/AdvReac Type Severity Reaction Status Date / Time etomidate Allergy Severe Rash Verified 10/08/18 16:03 latex Allergy Severe Rash Verified 10/08/18 16:03 morphine Allergy Severe Rash Verified 10/08/18 16:03 Home Medications: Ambulatory Orders Diazepam [Valium] 5 mg PO HS PRN 08/24/18 Duloxetine HCl [Cymbalta] 30 mg PO BID 08/24/18 Lisinopril 10 mg PO DAILY 08/24/18 Omeprazole 40 mg PO DAILY 08/24/18 Oxybutynin Chloride 5 mg PO TID 08/24/18 Oxycodone HCl 30 mg PO ASDIR PRN 08/24/18 Pregabalin [Lyrica] 100 mg PO TID 08/24/18 Aspirin [Aspirin EC] 325 mg PO DAILY 09/12/18 Amino Acids/Protein Hydrolys [Prosource No Carb Liquid Pkt] 30 ml PO BID@0800, 1730 packet 01/03/19 Cyclobenzaprine HCl 5 mg PO DAILY tablet 01/03/19 Daptomycin [Cubicin (Restricted To Id) -] 500 mg IVPB DAILY@1730 vial Diphenhydramine HCl [Benadryl Capsule -] 25 mg PO HS PRN capsule 01/03/19 Docusate Sodium [Colace -] 100 mg PO TID capsule 01/03/19 Ertapenem Sodium [Invanz -] 1 gm IVPB DAILY vial 01/03/19 Mag Hydrox/Al Hydrox/Simeth [Mylanta Oral Suspension -] 30 ml PO Q6HPO PRN cup 01/03/19 Polyethylene Glycol 3350 [Miralax 119 gm Btl -] 17 gm PO DAILY bottle 01/03/19 Sennosides [Senna -] 2 tab PO HS PRN tablet 01/03/19 Ferrous Sulfate [Feosol] 325 mg PO BIDWM ud 01/04/19 Simethicone Liquid [Mylicon Liquid -] 40 mg PO Q6H PRN ml 01/04/19 oxyCODONE SR [Oxycontin] 80 mg PO BID #0 tab-cap MDD 2 01/04/19 Anemia: No Asthma: No Cancer: No Cardiac Disorders: No CVA: No COPD: No CHF: No Dementia: No Diabetes: No GI Disorders: No Disorders: No HTN: No Hypercholesterolemia: No Liver Disease: No Seizures: No Thyroid Disease: No - Surgical History Abdominal Surgery: No Appendectomy: No Cardiac Surgery: No Cholecystectomy: No Lung Surgery: No Neurologic Surgery: No Orthopedic Surgery: Yes (LEFT TOTAL HIP REPLACEMENT,MUTIPLE TIMES, BILATERAL SHOULDER REPLACEMENTS) - Suicide/Smoking/Psychosocial Hx Smoking History: Current every day smoker Have you smoked in the past 12 months: Yes Number of Cigarettes Smoked Daily: 5 Information on smoking cessation initiated: Yes 'Breaking Loose' booklet given: 01/07/19 Hx Alcohol Use: No Drug/Substance Use Hx: No Substance Use Type: None Hx Substance Use Treatment: No Review of Systems - Review of Systems Constitutional: No: Chills, Diaphoresis, Fever HEENTM: No: Blurred Vision, Tearing Respiratory: No: Cough, Shortness of Breath, Wheezing Cardiac (ROS): No: Chest Pain, Irregular Heart Rate ABD/GI: No: Diarrhea, Nausea, Vomiting : No: Burning, Dysuria, Discharge Musculoskeletal: Yes: Joint Pain, Muscle Pain. No: Back Pain Integumentary: Yes: Lesions. No: Bruising, Erythema Neurological: No: Headache, Numbness, Paresthesia Psychiatric: Yes: Anxiety, Depression *Physical Exam - Vital Signs Last Vital Signs Temp Pulse Resp BP Pulse Ox 98.3 F 128 H 19 159/74 100 01/11/19 21:51 01/11/19 21:51 01/11/19 21:51 01/11/19 21:51 01/11/19 21:51 - Physical Exam General Appearance: Yes: Nourished, Appropriately Dressed. No: Apparent Distress HEENT: positive: EOMI, MILLICENT, Normal ENT Inspection, Normal Voice Neck: positive: Trachea midline, Normal Thyroid, Supple. negative: Tender, Rigid Respiratory/Chest: positive: Lungs Clear, Normal Breath Sounds, Other (port over right upper chest). negative: Chest Tender, Respiratory Distress, Accessory Muscle Use Cardiovascular: positive: Regular Rhythm, Tachycardia. negative: Regular Rate Gastrointestinal/Abdominal: positive: Normal Bowel Sounds, Flat, Soft. negative : Tender Lymphatic: negative: Adenopathy, Tenderness Musculoskeletal: negative: Normal Inspection (left hip with wound and bandaged) , Decreased Range of Motion Extremity: positive: Normal Capillary Refill, Normal Range of Motion, Tender. negative: Normal Inspection Integumentary: positive: Normal Color, Dry, Warm Neurologic: positive: Fully Oriented, Alert, Normal Mood/Affect, Normal Response , Motor Strength 01/20 ED Treatment Course - LABORATORY CBC & Chemistry Diagram: 01/12/19 01:19 01/12/19 01:19 Medical Decision Making - Medical Decision Making 63 year old female recently admitted and AMA'd yestrday while undergoing IV abx treatment and wound care for a left hip wound. Returned after "signing some housing documents" and likely needs continuing IV abx therapy for her orthopedic infection given what was written in Dr. Jensen's note on 01/11/19. Will admit to hospitalist service. 01/12/19 01:56 *DC/Admit/Observation/Transfer Diagnosis at time of Disposition: Wound, open, hip or thigh - Referrals Referrals: Albert Moya MD [Primary Care Provider] - - Patient Instructions - Post Discharge Activity
[2019-01-12 01:36] LABS: BASO % 1.1 % (0-2.0); EOS % 12.8 % (0-4.5); HEMATOCRIT 30.9 % (32.4-45.2); HEMOGLOBIN 9.9 GM/dL (10.7-15.3); MCH 24.6 pg (25.7-33.7); MEAN CELL VOLUME 76.9 fl (80-96); MEAN PLT VOLUME 7.1 fl (7.5-11.1); MONO % 5.1 % (3.8-10.2); PLATELET COUNT 386 K/MM3 (134-434); RBC 4.02 M/mm3 (3.60-5.2); RDW 21.1 % (11.6-15.6); WHITE BLOOD COUNT 10.8 K/mm3 (4.0-10.0)
[2019-01-12 02:04] LABS: ALBUMIN 2.8 g/dl (3.4-5.0); ALK PHOS 206 U/L (45-117); ANION GAP 7 MMOL/L (8-16); BILIRUBIN,TOTAL 0.1 mg/dL (0.2-1); BLOOD UREA NITROGEN 17 mg/dL (7-18); CALCIUM 8.8 mg/dL (8.5-10.1); CHLORIDE 110 mmol/L (98-107); CO2 22 mmol/L (21-32); CREATININE 0.8 mg/dL (0.55-1.3); GLUCOSE,RANDOM 87 mg/dL (74-106); POTASSIUM 4.3 mmol/L (3.5-5.1); SGOT/AST 13 U/L (15-37); SGPT/ALT 16 U/L (13-61); SODIUM 139 mmol/L (136-145); TOT PROT 7.1 g/dl (6.4-8.2)
--- NOTE | 2019-01-12 02:16 | PN ---
Teaching Attending Note Name of Resident: Olga Thomas ATTENDING PHYSICIAN STATEMENT I saw and evaluated the patient. I reviewed the resident's note and discussed the case with the resident. I agree with the resident's findings and plan as documented. SUBJECTIVE: Patient is a 63 year old woman with PMH of hypertension, anxiety, depression, chronic hip pain, tobacco use, patient-reported but unconfirmed MRSA infection and chronic postop left hip left wound who returns after signing out AMA on 01/11 to take care of some important housing documents. She had undergone left hip debridement of soft tissue, muscle, bone, VAC application, multiple I and D wound washes, s/p osteotomy of left femur, removal of hardware (explant femoral component), I&D left hip wound and hardware removed by surgery. Patient presented to [facility] on 01/07/19 for wound debridement and IV antibiotics. She was recently a resident of [facility] and uses a wheelchair. She returns to the ER with medport in place on right chest for further IV antibiotics. Denies any symptoms except for pain in both of her hips. OBJECTIVE: Somnolent but arousable Vital Signs Period Temp Pulse Resp BP Sys/Vargas Pulse Ox Last 24 Hr 98.3 F 128 19 159/74 100 HEENT: No Jaundice, eye redness or discharge, PERRLA, EOMI. Normocephalic, atraumatic. External ears are normal and hearing is grossly intact. No nasal discharge. Neck: Supple, nontender. No palpable adenopathy or thyromegaly. No JVD Chest: Good effort. Clear to auscultation and percussion. Heart: Tachycardia. No S3, rub or murmur Abdomen: Not distended, soft, nontender and no HSM. No rebound or guarding. Normal bowel sounds. Ext: Peripheral pulses intact. No leg edema. Left hip wound dressed with Wound Vac in place. Reduced ROM left hip - distal motor and sensory function intact. LLE externally rotated. Skin: Warm and dry. No petechiae, rash or ecchymosis. Neuro: Somnolent but arousable. Oriented x3. CN 2-12 grossly intact. Sensation grossly intact in all four extremities and DTR are symmetric. Psych: Appropriate mood and affect. Good insight. Home Medications Medication Instructions Recorded Diazepam [Valium] 5 mg PO HS PRN 08/24/18 Duloxetine HCl [Cymbalta] 30 mg PO BID 08/24/18 Lisinopril 10 mg PO DAILY 08/24/18 Omeprazole 40 mg PO DAILY 08/24/18 Oxybutynin Chloride 5 mg PO TID 08/24/18 Oxycodone HCl 30 mg PO ASDIR PRN 08/24/18 Pregabalin [Lyrica] 100 mg PO TID 08/24/18 Aspirin [Aspirin EC] 325 mg PO DAILY 09/12/18 Amino Acids/Protein Hydrolys 30 ml PO BID@0800,1730 packet 01/03/19 [Prosource No Carb Liquid Pkt] Cyclobenzaprine HCl 5 mg PO DAILY tablet 01/03/19 Daptomycin [Cubicin (Restricted 500 mg IVPB DAILY@1730 vial 01/03/19 To Id) -] Diphenhydramine HCl [Benadryl 25 mg PO HS PRN capsule 01/03/19 Capsule -] Docusate Sodium [Colace -] 100 mg PO TID capsule 01/03/19 Ertapenem Sodium [Invanz -] 1 gm IVPB DAILY vial 01/03/19 Mag Hydrox/Al Hydrox/Simeth 30 ml PO Q6HPO PRN cup 01/03/19 [Mylanta Oral Suspension -] Polyethylene Glycol 3350 [Miralax 17 gm PO DAILY bottle 01/03/19 119 gm Btl -] Sennosides [Senna -] 2 tab PO HS PRN tablet 01/03/19 Ferrous Sulfate [Feosol] 325 mg PO BIDWM ud 01/04/19 Simethicone Liquid [Mylicon Liquid 40 mg PO Q6H PRN ml 01/04/19 -] oxyCODONE SR [Oxycontin] 80 mg PO BID #0 tab-cap MDD 2 01/04/19 Abnormal Lab Results 01/12/19 01/12/19 01:19 01:19 WBC 10.8 H Hgb 9.9 L Hct 30.9 L MCV 76.9 L MCH 24.6 L RDW 21.1 H MPV 7.1 L Eosinophils % 12.8 H Chloride 110 H Anion Gap 7 L Total Bilirubin 0.1 L AST 13 L Alkaline Phosphatase 206 H Albumin 2.8 L ASSESSMENT AND PLAN: 1. Infected left hip wound - Patient was being treated with IV Ertapenem 1 gm daily and IV Daptomycin 500 mg daily, though wound culture from 01/07/19 showed no growth. Will continue same antibiotics, get an EKG and urine toxicology screen. Continue daily wound care. Consult ID - ?does patient need isolation for remote, unconfirmed MRSA infection. Will treat with oxycodone sr for pain and provide bowel regimen. Eosinophilia is unexplained - will monitor. 2. Hypoalbuminemia - Possibly due to combined effects of malnutrition and inflammation associated with comorbid chronic conditions. No proteinuria on most recent urinalysis. Will ensure adequate dietary protein intake and also consult facilities clerk. 3. Uncontrolled Hypertension - Jan in BP may be related to acute hip pain. Will restart outpatient antihypertensive drugs and revise regimen to ensure smooth [id number] good BP control. Nonpharmacologic measures to control hypertension like weight loss, salt restriction and exercise discussed. 4. Low MCV Anemia - Likely multifactorial. Will do basic anemia work up including serial stool guaiacs, reticulocyte count and iron studies. 5. Tobacco Use Counseled on risks associated with tobacco use. We will provide patient all the necessary assistance to facilitate smoking cessation and prescribe Nicotine patch. 6. DVT prophylaxis - Lovenox 40 mg SQ q 24 hours. 7. Advance directives - Full code
--- NOTE | 2019-01-12 02:41 | PDOC ---
Attending Attestation - Resident Resident Name: Dajuan Morocho - ED Attending Attestation I have performed the following: I have examined & evaluated the patient, The case was reviewed & discussed with the resident, I agree w/resident's findings & plan - HPI HPI: 01/12/19 02:49 Pt returns for wound debridement of her hip. SHe was here earlier in the night and then left the ER and returned. Pt has hip hardware and chronic infections. - Physicial Exam PE: 01/12/19 02:50 Agree with resident exam - Medical Decision Making 01/12/19 02:50 Pt is likely septic and she will be treated with abx and admitted to med surg. We will leave final abx choice up to the medicine team and the ID docs. Pt has had complicated infections that have multiple sensitivities.
--- NOTE | 2019-01-12 03:37 | HP ---
CHIEF COMPLAINT: PCP: HISTORY OF PRESENT ILLNESS: 63 y/o F with PMHx of HTN, Anxiety, Depression, Chronic left hip wound and multiple orthopedic interventions presents for admission to restart IV ABx. Patient was recently admitted to [facility] on 01/07 after undergoing I&D left hip wound and Exchange wound vac left hip. On POD#4, patient left AMA to fill out paper work for her housing. Upon completing this task, she returned to complete her course of IV Abx and to further manage her wounds. She endorse constant pain in both hip joints described as sharp and throbbing that radiates to the knee, 06/27. She additionally mentions her pain is controlled with her regimen of oxycodone and oxycontin. She did not try anything at home for the pain. She denies any fevers, chills chest pain, SOB, nausea, vomiting, diarrhea, constipation. Recent Travel: Denies PAST MEDICAL HISTORY: As above PAST SURGICAL HISTORY: Multiple orthopedic surgeries including left hip debridement of soft tissue, muscle, bone, VAC application, multiple I and D wound washes, s/p osteotomy left femur, removal of hardware (explant femoral component), I&D left hip wound B/L Shoulder repair Hysterectomy Social History: Smokin-4 cigerettes daily since age 13 Alcohol: Denies Drugs: Denies Ambulation: Wheelchair Family History: Mother: Arthritis, HLD, [place] Father: Prostate Ca Allergies etomidate Allergy (Severe, Verified 10/08/18 16:03) Rash latex Allergy (Severe, Verified 10/08/18 16:03) Rash morphine Allergy (Severe, Verified 10/08/18 16:03) Rash HOME MEDICATIONS: Home Medications Medication Instructions Recorded Diazepam [Valium] 5 mg PO HS PRN 08/24/18 Duloxetine HCl [Cymbalta] 30 mg PO BID 08/24/18 Lisinopril 10 mg PO DAILY 08/24/18 Omeprazole 40 mg PO DAILY 08/24/18 Oxybutynin Chloride 5 mg PO TID 08/24/18 Oxycodone HCl 30 mg PO ASDIR PRN 08/24/18 Pregabalin [Lyrica] 100 mg PO TID 08/24/18 Aspirin [Aspirin EC] 325 mg PO DAILY 09/12/18 Amino Acids/Protein Hydrolys 30 ml PO BID@0800,1730 packet 01/03/19 [Prosource No Carb Liquid Pkt] Cyclobenzaprine HCl 5 mg PO DAILY tablet 01/03/19 Daptomycin [Cubicin (Restricted 500 mg IVPB DAILY@1730 vial 01/03/19 To Id) -] Diphenhydramine HCl [Benadryl 25 mg PO HS PRN capsule 01/03/19 Capsule -] Docusate Sodium [Colace -] 100 mg PO TID capsule 01/03/19 Ertapenem Sodium [Invanz -] 1 gm IVPB DAILY vial 01/03/19 Mag Hydrox/Al Hydrox/Simeth 30 ml PO Q6HPO PRN cup 01/03/19 [Mylanta Oral Suspension -] Polyethylene Glycol 3350 [Miralax 17 gm PO DAILY bottle 01/03/19 119 gm Btl -] Sennosides [Senna -] 2 tab PO HS PRN tablet 01/03/19 Ferrous Sulfate [Feosol] 325 mg PO BIDWM ud 01/04/19 Simethicone Liquid [Mylicon Liquid 40 mg PO Q6H PRN ml 01/04/19 -] oxyCODONE SR [Oxycontin] 80 mg PO BID #0 tab-cap MDD 2 01/04/19 REVIEW OF SYSTEMS As per HPI PHYSICAL EXAMINATION Vital Signs - 24 hr 01/11/19 21:51 Temperature 98.3 F Pulse Rate 128 H Respiratory 19 Rate Blood Pressure 159/74 O2 Sat by Pulse 100 Oximetry (%) GENERAL: A&Ox3 however lethargic HEAD: NCAT EYES: PERRL, EOMI EARS, NOSE, THROAT: Moist mucous membranes. NECK: Supple LUNGS: clear to auscultation bilaterally. No wheezes, no crackles. HEART: Regular rate and rhythm, normal S1 and S2 without murmur ABDOMEN: Soft, nontender, not distended, + bowel sounds, no guarding EXTREMITIES: No peripheral edema. Left lower extremity externally rotated. Able to move extremities freely NEUROLOGICAL: Cranial nerves II-XII intact. Diminished sensation over the LUE. 4/5 muscle strength to handgrip, elbow flexion/extension, hip flexion. SKIN: Warm, dry. Right upper chest mediport. Left Hip Wound vac dressing in place Laboratory Results - last 24 hr 01/12/19 01/12/19 01:19 01:19 WBC 10.8 H RBC 4.02 Hgb 9.9 L Hct 30.9 L MCV 76.9 L MCH 24.6 L MCHC 32.0 RDW 21.1 H Plt Count 386 MPV 7.1 L Absolute Neuts (auto) 7.3 Neutrophils % 67.0 Lymphocytes % 14.0 D Monocytes % 5.1 Eosinophils % 12.8 H Basophils % 1.1 Nucleated RBC % 0 Sodium 139 Potassium 4.3 Chloride 110 H Carbon Dioxide 22 Anion Gap 7 L BUN 17 Creatinine 0.8 Creat Clearance w eGFR 72.44 Random Glucose 87 Calcium 8.8 Total Bilirubin 0.1 L AST 13 L ALT 16 Alkaline Phosphatase 206 H Total Protein 7.1 Albumin 2.8 L ASSESSMENT/PLAN: 63 y/o F with PMHx of HTN, Anxiety, Depression, Chronic left hip wound and multiple orthopedic interventions, who recently AMA'ed presents for admission to restart IV ABx #Left Hip healing wound -S/P Wound washout on 01/07 now with wound vac -Continue Daptomycin 500mg Daily, Ertapenem 1g daily -ID (Dr. Perales) Consulted -Check UTox given recent lethragy -Pain control via Oxycodone -Bowel regimen #HTN -Above goal on admission, likely due to pain -Will Continue Lisinopril 10mg daily and adjust if no improvement with pain controll #Iron deficiency Anemia -Will Check Iron studies -Continue PO Supplementation if shown to truly be deficient #Depression -Continue home dose Cymbalta #PPx -DVT: Lovenox Visit type - Emergency Visit Emergency Visit: Yes ED Registration Date: 01/12/19 Care time: The patient presented to the Emergency Department on the above date and was hospitalized for further evaluation of their emergent condition. - New Patient This patient is new to me today: Yes Date on this admission: 01/12/19 - Critical Care Critical Care patient: No
[2019-01-12 07:03] LABS: BASO % 0.9 % (0-2.0); HEMATOCRIT 29.7 % (32.4-45.2); HEMOGLOBIN 9.7 GM/dL (10.7-15.3); MCHC 32.5 g/dl (32.0-36.0); MEAN PLT VOLUME 7.2 fl (7.5-11.1); MONO % 5.2 % (3.8-10.2); NEUT % 67.9 % (42.8-82.8); PLATELET COUNT 376 K/MM3 (134-434); RBC 3.86 M/mm3 (3.60-5.2); RETICULOCYTES 1.84 % (0.5-1.5)
[2019-01-12 07:31] LABS: ALBUMIN 2.5 g/dl (3.4-5.0); ALK PHOS 189 U/L (45-117); ANION GAP 8 MMOL/L (8-16); BILIRUBIN,TOTAL 0.1 mg/dL (0.2-1); BLOOD UREA NITROGEN 16 mg/dL (7-18); CALCIUM 8.7 mg/dL (8.5-10.1); CHLORIDE 112 mmol/L (98-107); CO2 21 mmol/L (21-32); CREATININE 0.7 mg/dL (0.55-1.3); GLUCOSE,RANDOM 106 mg/dL (74-106); PHOSPHOROUS 4.4 mg/dL (2.5-4.9); POTASSIUM 3.9 mmol/L (3.5-5.1); SGOT/AST 11 U/L (15-37); SGPT/ALT 14 U/L (13-61); SODIUM 141 mmol/L (136-145); TOT PROT 6.3 g/dl (6.4-8.2)
[2019-01-12] MEDS ORDERED: ERTAPENEM SODIUM 1 GM VIAL ONE (08:29)
[2019-01-12] MEDS: DOCUSATE SODIUM 100 MG CAPSULE (FP) PO SCH ×3 (08:33→21:17)
[2019-01-12] MEDS ORDERED: oxyCODONE HCL 80 MG SUSTAINED ACTING TABLET PO SCH (10:00)
--- NOTE | 2019-01-12 11:27 | PN ---
Physical Exam: SUBJECTIVE: Patient seen and examined pt is c/o pain at the hip where hardware was removed OBJECTIVE: Vital Signs Period Temp Pulse Resp BP Sys/Vargas Pulse Ox Last 24 Hr 98.2 F-98.3 F 77-128 18-19 118-159/45-89 98-100 GENERAL: The patient is awake, alert, and fully oriented, in no acute distress. NECK: Trachea midline, full range of motion, supple. LUNGS: Breath sounds equal, clear to auscultation bilaterally, no wheezes, no crackles, no accessory muscle use. HEART: Regular rate and rhythm, S1, S2 without murmur, rub or gallop. ABDOMEN: Soft, nontender, nondistended, normoactive bowel sounds, no guarding, no rebound, no hepatosplenomegaly, no masses. EXTREMITIES: 2+ pulses, warm, she has tenderness on her left thigh NEUROLOGICAL: Cranial nerves II through XII grossly intact. Normal speech, gait not observed. Laboratory Results - last 24 hr 01/12/19 01/12/19 01/12/19 01:19 01:19 06:00 WBC 10.8 H 10.0 RBC 4.02 3.86 Hgb 9.9 L 9.7 L Hct 30.9 L 29.7 L MCV 76.9 L 77.0 L MCH 24.6 L 25.0 L MCHC 32.0 32.5 RDW 21.1 H 21.0 H Plt Count 386 376 MPV 7.1 L 7.2 L Absolute Neuts (auto) 7.3 6.8 Neutrophils % 67.0 67.9 Lymphocytes % 14.0 D 13.0 Monocytes % 5.1 5.2 Eosinophils % 12.8 H 13.0 H Basophils % 1.1 0.9 Nucleated RBC % 0 0 Retic Count 1.84 H Sodium 139 Potassium 4.3 Chloride 110 H Carbon Dioxide 22 Anion Gap 7 L BUN 17 Creatinine 0.8 Creat Clearance w eGFR 72.44 Random Glucose 87 Calcium 8.8 Phosphorus Magnesium Ferritin Total Bilirubin 0.1 L AST 13 L ALT 16 Alkaline Phosphatase 206 H Total Protein 7.1 Albumin 2.8 L 01/12/19 06:00 WBC RBC Hgb Hct MCV MCH MCHC RDW Plt Count MPV Absolute Neuts (auto) Neutrophils % Lymphocytes % Monocytes % Eosinophils % Basophils % Nucleated RBC % Retic Count Sodium 141 Potassium 3.9 Chloride 112 H Carbon Dioxide 21 Anion Gap 8 BUN 16 Creatinine 0.7 Creat Clearance w eGFR 84.51 Random Glucose 106 Calcium 8.7 Phosphorus 4.4 Magnesium 2.0 Ferritin 608.1 H Total Bilirubin 0.1 L AST 11 L ALT 14 Alkaline Phosphatase 189 H Total Protein 6.3 L Albumin 2.5 L Active Medications Generic Name Dose Route Start Last Admin Trade Name Freq PRN Reason Stop Dose Admin Docusate Sodium 100 mg 01/12/19 06:00 01/12/19 08:33 Colace - PO 100 mg TID [facility] Administration Duloxetine HCl 30 mg 01/12/19 10:00 Cymbalta - PO BID [facility] Enoxaparin Sodium 40 mg 01/12/19 10:00 Lovenox - SQ DAILY [facility] Daptomycin 500 mg/ Sodium 50 mls @ 100 mls/hr 01/12/19 10:00 Chloride IVPB DAILY [facility] Protocol Ertapenem 1 gm/ Sodium 50 mls @ 100 mls/hr 01/12/19 10:00 Chloride IVPB DAILY [facility] Lisinopril 10 mg 01/12/19 10:00 Prinivil PO DAILY [facility] Oxycodone HCl 80 mg 01/12/19 10:00 Oxycontin - PO BID [facility] Senna 1 tab 01/12/19 10:00 Senna - PO BID [facility] ASSESSMENT/PLAN: 1. Infected left hip wound - Patient was being treated with IV Ertapenem 1 gm daily and IV Daptomycin 500 mg daily, though wound culture from 01/07/19 showed no growth. Will continue same antibiotics, get an EKG and urine toxicology screen. Continue daily wound care. Consult ID - ?does patient need isolation for remote, unconfirmed MRSA infection. Will treat with oxycodone sr for pain and provide bowel regimen. WILL ADD prn oxycodone for breakthrough pain 2. Uncontrolled Hypertension - started meds 3. Low MCV Anemia - Likely multifactorial. Will do basic anemia work up including serial stool guaiacs, reticulocyte count and iron studies. 4. DVT prophylaxis - Lovenox 40 mg SQ q 24 hours. Visit type - Emergency Visit Emergency Visit: Yes ED Registration Date: 01/12/19 Care time: The patient presented to the Emergency Department on the above date and was hospitalized for further evaluation of their emergent condition. - New Patient This patient is new to me today: Yes Date on this admission: 01/12/19 - Critical Care Critical Care patient: No - Discharge Referral Referred to [facility] No
[2019-01-12] MEDS: DULoxetine HCL 30 MG CAPSULE.DR (FP) PO SCH ×2 (12:08→21:17)
[2019-01-12] MEDS ORDERED: oxyCODONE HCL 40 MG SUSTAINED ACTING TABLET PO ONE (12:08)
[2019-01-12] MEDS: DAPTOMYCIN 500 MG in SODIUM CHLORIDE 50 ML IVPB SCH (12:08)
[2019-01-12] MEDS: ENOXAPARIN NA (PORCINE) 40 MG/0.4 ML DISP.SYRIN SQ SCH (12:09)
[2019-01-12] MEDS: oxyCODONE HCL 40 MG SUSTAINED ACTING TABLET PO SCH ×2 (12:09→21:18)
[2019-01-12] MEDS: ERTAPENEM SODIUM 1 GM in SODIUM CHLORIDE 50 ML IVPB SCH (12:09)
[2019-01-12] MEDS: LISINOPRIL 10 MG TABLET (FP) PO SCH (12:10)
[2019-01-12] MEDS: SENNOSIDES 8.6MG TABLET (FP) PO SCH ×2 (12:10→21:06)
[2019-01-12] MEDS ORDERED: DOCUSATE SODIUM 100 MG CAPSULE (FP) PO ONE (14:11)
[2019-01-12 15:04] LABS: ANISOCYTOSIS 1+; OVALOCYTE 1+; PLATELET ESTIMATE ADEQUATE
[2019-01-12] MEDS ORDERED: morphine SULFATE 4 MG/ML VIAL IVPUSH PRN (16:43)
[2019-01-12] MEDS ORDERED: oxyCODONE HCL 5 MG TABLET PO PRN (17:17)
[2019-01-12] MEDS: diphenhydrAMINE HCL 25 MG CAPSULE (FP) PO PRN (21:26)
[2019-01-12] MEDS: PREGABALIN 100 MG CAPSULE PO SCH (21:26)
[2019-01-12] MEDS: oxyCODONE HCL 5 MG TABLET PO PRN (21:41)
--- NOTE | 2019-01-12 23:07 | PN ---
Progress Note (short form) - Note Progress Note: 63F p/w chronic left hip wound. Pre-op for Monday01/14/2019. Plan is for I&D left hip wound with either exchange of wound vac or primary wound closure. No gross or microscopic evidence of wound infection at the time of last left hip wound I&D. All intra-operative wound cultures negative for wound contamination or infection. -NPO at midnight on Monday01/13/2019. -Hold DVT PPx. Monday01/13/2019 in preparation for OR on Monday01/14/2019. -Pain control. -DVT PPx: - Mechanical: SOUTH's, SCD's. -Incentive spirometry. -PT/OT/Rehab, OOB. -NWB LLE. -Care per medical hospitalist team. -Will follow. Albert Moya MD (Orthopaedic Surgery).
[2019-01-12] MEDS: OXYBUTYNIN CHLORIDE 5 MG TABLET PO SCH (23:16)
[2019-01-12] MEDS: diazePAM 5 MG TABLET PO PRN (23:16)
[2019-01-13] MEDS: oxyCODONE HCL 5 MG TABLET PO PRN ×6 (02:03→22:28)
[2019-01-13] MEDS: DOCUSATE SODIUM 100 MG CAPSULE (FP) PO SCH ×3 (06:11→22:31)
[2019-01-13] MEDS: PREGABALIN 100 MG CAPSULE PO SCH ×3 (06:11→22:31)
[2019-01-13] MEDS: OXYBUTYNIN CHLORIDE 5 MG TABLET PO SCH ×3 (06:11→22:31)
[2019-01-13 06:36] LABS: SERUM IRON SATURATION 11 % (15-55); TOTAL IRON BINDING CAPACITY 241 ug/dL (250-450); UIBC 214 ug/dL (118-369)
[2019-01-13] MEDS ORDERED: PT OWN MED DRAWER 7, Y5N ONE ×2 (09:30→10:34)
[2019-01-13] MEDS: SENNOSIDES 8.6MG TABLET (FP) PO SCH ×2 (09:51→22:27)
[2019-01-13] MEDS: CYCLOBENZAPRINE HCL 5 MG TABLET PO SCH (09:51)
[2019-01-13] MEDS: LISINOPRIL 10 MG TABLET (FP) PO SCH (09:51)
[2019-01-13] MEDS: DULoxetine HCL 30 MG CAPSULE.DR (FP) PO SCH ×2 (09:51→22:31)
[2019-01-13] MEDS: ENOXAPARIN NA (PORCINE) 40 MG/0.4 ML DISP.SYRIN SQ SCH (10:03)
[2019-01-13] MEDS: oxyCODONE HCL 40 MG SUSTAINED ACTING TABLET PO SCH ×2 (10:58→23:51)
[2019-01-13] MEDS: ERTAPENEM SODIUM 1 GM in SODIUM CHLORIDE 50 ML IVPB SCH (11:01)
[2019-01-13] MEDS: DAPTOMYCIN 500 MG in SODIUM CHLORIDE 50 ML IVPB SCH (12:19)
--- NOTE | 2019-01-13 12:37 | PN ---
Physical Exam: SUBJECTIVE: Patient seen and examined OBJECTIVE: Vital Signs Period Temp Pulse Resp BP Sys/Vargas Pulse Ox Last 24 Hr 97.6 F-98.5 F 67-124 17-20 98-139/45-100 98-100 GENERAL: The patient is awake, alert, and fully oriented, in no acute distress. NECK: Trachea midline, full range of motion, supple. LUNGS: Breath sounds equal, clear to auscultation bilaterally, no wheezes, no crackles, no accessory muscle use. HEART: Regular rate and rhythm, S1, S2 without murmur, rub or gallop. ABDOMEN: Soft, nontender, nondistended, normoactive bowel sounds, no guarding, no rebound, no hepatosplenomegaly, no masses. EXTREMITIES: 2+ pulses, warm, she has tenderness on her left thigh NEUROLOGICAL: Cranial nerves II through XII grossly intact. Normal speech, gait not observed. Laboratory Results - last 24 hr CBC, BMP 01/12/19 06:00 01/12/19 06:00 Active Medications Current Medications Cyclobenzaprine HCl (Cyclobenzaprine Hcl) 5 mg PO DAILY [facility] Last Admin: 01/13/19 09:51 Dose: 5 mg Diazepam (Valium -) 5 mg PO HS PRN PRN Reason: ANXIETY Last Admin: 01/12/19 23:16 Dose: 5 mg Diphenhydramine HCl (Benadryl -) 25 mg PO HS PRN PRN Reason: INSOMNIA Last Admin: 01/12/19 21:26 Dose: 25 mg Docusate Sodium (Colace -) 100 mg PO TID [facility] Last Admin: 01/13/19 06:11 Dose: 100 mg Duloxetine HCl (Cymbalta -) 30 mg PO BID [facility] Last Admin: 01/13/19 09:51 Dose: 30 mg Enoxaparin Sodium (Lovenox -) 40 mg SQ DAILY [facility] Last Admin: 01/13/19 10:03 Dose: Not Given Daptomycin 500 mg/ Sodium (Chloride) 50 mls @ 100 mls/hr IVPB DAILY [facility]; Protocol Last Admin: 01/13/19 12:19 Dose: 100 mls/hr Ertapenem 1 gm/ Sodium (Chloride) 50 mls @ 100 mls/hr IVPB DAILY [facility] Last Admin: 01/13/19 11:01 Dose: 100 mls/hr Lisinopril (Prinivil) 10 mg PO DAILY [facility] Last Admin: 01/13/19 09:51 Dose: 10 mg Oxybutynin Chloride (Ditropan -) 5 mg PO TID [facility] Last Admin: 01/13/19 06:11 Dose: 5 mg Oxycodone HCl (Oxycontin -) 80 mg PO BID [facility] Last Admin: 01/13/19 10:58 Dose: 80 mg Oxycodone HCl (Roxicodone -) 30 mg PO Q4H PRN PRN Reason: PAIN LEVEL 7 - 10 Last Admin: 01/13/19 09:58 Dose: 30 mg Pregabalin (Lyrica -) 100 mg PO TID [facility] Last Admin: 01/13/19 06:11 Dose: 100 mg Senna (Senna -) 1 tab PO BID [facility] Last Admin: 01/13/19 09:51 Dose: Not Given ASSESSMENT/PLAN: 1. Infected left hip wound - pt is going tomorow for I&D and possible change of wound vac or primary wound closure 2. Uncontrolled Hypertension - meds 3. Low MCV Anemia - Likely multifactorial. Will do basic anemia work up including serial stool guaiacs, reticulocyte count and iron studies. 4. DVT prophylaxis - Lovenox 40 mg SQ q 24 hours. But will hold today due to surgery am Visit type - Emergency Visit Emergency Visit: Yes ED Registration Date: 01/12/19 Care time: The patient presented to the Emergency Department on the above date and was hospitalized for further evaluation of their emergent condition. - New Patient This patient is new to me today: No - Critical Care Critical Care patient: No - Discharge Referral Referred to [facility] No
[2019-01-13] MEDS: diphenhydrAMINE HCL 25 MG CAPSULE (FP) PO PRN (23:57)
[2019-01-13] MEDS: diazePAM 5 MG TABLET PO PRN (23:57)
[2019-01-14] MEDS: oxyCODONE HCL 5 MG TABLET PO PRN ×3 (02:54→22:38)
[2019-01-14] MEDS: DOCUSATE SODIUM 100 MG CAPSULE (FP) PO SCH ×2 (07:41→22:38)
[2019-01-14] MEDS: OXYBUTYNIN CHLORIDE 5 MG TABLET PO SCH ×3 (07:42→23:12)
[2019-01-14] MEDS: PREGABALIN 100 MG CAPSULE PO SCH ×3 (07:42→23:12)
[2019-01-14] MEDS ORDERED: PT OWN MED DRAWER 7, Y5N ONE (08:59)
[2019-01-14] MEDS: oxyCODONE HCL 40 MG SUSTAINED ACTING TABLET PO SCH (09:01)
[2019-01-14] MEDS: LISINOPRIL 10 MG TABLET (FP) PO SCH (09:02)
[2019-01-14] MEDS: DULoxetine HCL 30 MG CAPSULE.DR (FP) PO SCH ×2 (09:02→22:38)
[2019-01-14] MEDS: SENNOSIDES 8.6MG TABLET (FP) PO SCH ×2 (09:02→22:38)
[2019-01-14] MEDS: ERTAPENEM SODIUM 1 GM in SODIUM CHLORIDE 50 ML IVPB SCH (11:00)
[2019-01-14] MEDS: DAPTOMYCIN 500 MG in SODIUM CHLORIDE 50 ML IVPB SCH (11:06)
--- NOTE | 2019-01-14 13:02 | PN ---
Progress Note (short form) - Note Progress Note: 63F p/w chronic left hip wound. H&P reviewed. No change in physical examination or plan. Will proceed with I&D left hip wound with either exchange of wound vac or primary closure. Albert Moya MD (Orthopaedic Surgery).
--- NOTE | 2019-01-14 13:03 | PN ---
Progress Note (short form) - Note Progress Note: 63F s/p left hip I&D, and exchange of wound vac dressing POD #0. Left hip wound dimensions: Length - 13cm Width - 4cm Depth - 7cm No intra-op evidence of wound contamination or active infection. -Per orthopaedics team, no further need for antibiotic coverage; f/u ID team rec 's. -Pain control. -DVT PPx: - Chemical: ASA 81mg PO BID. - Mechanical: SOUTH's, SCD's. -Incentive spirometry. -PT/OT/Rehab, OOB. -NWB LLE. -f/u post-op trial of void - 8 hours max. -f/u AM labs. -Care per medical hospitalist team. -Will plan to continue weekly wound vac dressing changes in the OR due to size/ depth of wound. -Will follow. Albert Moya MD (Orthopaedic Surgery).
[2019-01-14] MEDS ORDERED: PROMETHAZINE HCL 25 MG/1 ML VIAL IVPB PRN ×2 (13:28→14:35)
[2019-01-14] MEDS ORDERED: ONDANSETRON 4 MG/2 ML VIAL IVPUSH PRN ×2 (13:28→14:35)
[2019-01-14] MEDS ORDERED: LACTATED RINGERS SOLUTION 1,000 ML IV SCH (13:30)
[2019-01-14] MEDS ORDERED: PROPOFOL 20 ML ONE (13:38)
[2019-01-14] MEDS ORDERED: LIDOCAINE HCL/PF 2% SDV 5ML VIAL ONE (13:41)
[2019-01-14] MEDS ORDERED: KETOROLAC TROMETHAMINE 30 MG/1 ML VIAL ONE (13:55)
[2019-01-14] MEDS ORDERED: SIMETHICONE 40 MG/0.6 ML BOTTLE PO PRN ×2 (14:12→14:35)
[2019-01-14] MEDS ORDERED: MAG HYDROX/AL HYDROX/SIMETH 30 ML UNIT-DOSE CUP PO PRN ×2 (14:12→14:35)
[2019-01-14] MEDS ORDERED: PATIENT'S OWN MEDICATION (NON-FORMULARY) (Oxycodone Hcl [Oxycodone Hcl] 30 MG) PO PRN ×2 (14:12→14:35)
[2019-01-14] MEDS ORDERED: SENNOSIDES 8.6MG TABLET (FP) PO PRN ×2 (14:12→14:35)
[2019-01-14] MEDS ORDERED: diazePAM 5 MG TABLET PO PRN (14:35)
[2019-01-14 14:42] VITALS: BMI 23.6
--- NOTE | 2019-01-14 15:45 | PN ---
Physical Exam: SUBJECTIVE: Patient seen and examined in PACU. OBJECTIVE: Vital Signs Period Temp Pulse Resp BP Sys/Vargas Pulse Ox Last 24 Hr 97.7 F-98.1 F 88-109 16-19 100-138/55-79 100-100 GENERAL: The patient is sleeping but arousable, follows commands, moving all extremities. LUNGS: Breath sounds equal, clear to auscultation bilaterally, no wheezes, no crackles, no accessory muscle use. HEART: Regular rate and rhythm, S1, S2 ABDOMEN: Soft, nontender, nondistended LLE: Wound vac dressing over left hip and thigh, c/d/i; deeply concave wound EXTREMITIES: 2+ pulses, warm, well-perfused, no edema. Active Medications Generic Name Dose Route Start Last Admin Trade Name Freq PRN Reason Stop Dose Admin Al Hydroxide/Mg Hydroxide 30 ml 01/14/19 14:35 Mylanta Oral Suspension - PO Q6HPO PRN DYSPEPSIA Amino Acids 30 ml 01/14/19 17:30 Prosource No Carb Liquid Pkt PO BID@0800,1730 [facility] Aspirin 325 mg 01/15/19 10:00 Ecotrin - PO DAILY [facility] Cyclobenzaprine HCl 5 mg 01/15/19 10:00 Cyclobenzaprine Hcl PO DAILY [facility] Diazepam 5 mg 01/14/19 14:35 Valium - PO HS PRN ANXIETY Diphenhydramine HCl 25 mg 01/14/19 14:35 Benadryl - PO HS PRN INSOMNIA Docusate Sodium 100 mg 01/14/19 22:00 Colace - PO TID [facility] Duloxetine HCl 30 mg 01/14/19 22:00 Cymbalta - PO BID [facility] Enoxaparin Sodium 40 mg 01/15/19 10:00 Lovenox - SQ DAILY [facility] Fentanyl 50 mcg 01/14/19 14:35 Sublimaze Injection - IVPUSH 01/15/19 13:27 [id number] PRN PAIN-PACU ORDER X 4 DOSES ONLY Ferrous Sulfate 325 mg 01/14/19 17:30 Feosol - PO BIDWM [facility] Daptomycin 500 mg/ Sodium 50 mls @ 100 mls/hr 01/15/19 10:00 Chloride IVPB DAILY [facility] Protocol Ertapenem 1 gm/ Sodium 50 mls @ 100 mls/hr 01/15/19 10:00 Chloride IVPB DAILY [facility] Lactated Ringer's 1,000 mls @ 125 mls/hr 01/14/19 14:35 Lactated Ringers Solution IV ASDIR [facility] Lisinopril 10 mg 01/15/19 10:00 Prinivil PO DAILY [facility] Ondansetron HCl 4 mg 01/14/19 14:35 Zofran Injection IVPUSH Q6H PRN NAUSEA AND/OR VOMITING Oxybutynin Chloride 5 mg 01/14/19 22:00 Ditropan - PO TID [facility] Oxycodone HCl 30 mg 01/14/19 14:35 Roxicodone - PO Q4H PRN PAIN LEVEL 7 - 10 Oxycodone HCl 80 mg 01/14/19 22:00 Oxycontin - PO BID [facility] Pantoprazole Sodium 40 mg 01/15/19 10:00 Protonix - PO DAILY [facility] Polyethylene Glycol 17 gm 01/15/19 10:00 Miralax (For Daily Use) - PO DAILY [facility] Pregabalin 100 mg 01/14/19 22:00 Lyrica - PO TID [facility] Promethazine HCl 12.5 mg 01/14/19 14:35 Phenergan Injection - IVPB Q6H PRN NAUSEA-FOR RESCUE AFTER 15 MIN Senna 1 tab 01/14/19 22:00 Senna - PO BID [facility] Senna 2 tab 01/14/19 14:35 Senna - PO HS PRN CONSTIPATION Simethicone 40 mg 01/14/19 14:35 Mylicon Liquid - PO Q6H PRN INDIGESTION ASSESSMENT/PLAN: 63 year-old female with a PMH significant for a chronic left hip wound, s/p I&D today. Chronic left hip wound s/p I&D and exchange of wound vac dressing --POD #0 --lengthy conversation with Dr. Perales; patient needs 6-8 weeks of antibiotic therapy; ortho writes "no further need for antibiotic coverage"; Dr. Gutierrez aware; patient has tunneled catheter --pain management per surgery Hypertension --continue lisinopril Depression --continue duloxetine, valium PRN FEN Fluids: PO intake adequate Electrolytes: replete as indicated Nutrition: regular diet DVT prophylaxis: ASA 81mg daily Dispo: Full code. Visit type - Emergency Visit Emergency Visit: Yes ED Registration Date: 01/12/19 Care time: The patient presented to the Emergency Department on the above date and was hospitalized for further evaluation of their emergent condition. - New Patient This patient is new to me today: Yes Date on this admission: 01/15/19 - Critical Care Critical Care patient: No
[2019-01-14] MEDS ORDERED: AMINO ACIDS/PROTEIN HYDROLYS 30 ML LIQUID.PKT PO SCH (17:30)
[2019-01-14] MEDS ORDERED: DAPTOmycin 500 MG VIAL (RESTRICTED TO ID) IVPB SCH ×2 (17:30)
[2019-01-14] MEDS ORDERED: FERROUS SO4 325 MG TABLET (FP) PO SCH (17:30)
[2019-01-14] MEDS: FERROUS SO4 325 MG TABLET (FP) PO SCH (17:56)
[2019-01-14] MEDS: AMINO ACIDS/PROTEIN HYDROLYS 30 ML LIQUID.PKT PO SCH (17:56)
[2019-01-14] MEDS ORDERED: DOCUSATE SODIUM 100 MG CAPSULE (FP) PO SCH ×2 (22:00)
[2019-01-14] MEDS: LACTATED RINGERS SOLUTION 1,000 ML IV SCH (22:23)
--- NOTE | 2019-01-14 22:48 | OP ---
DATE OF OPERATION: 01/14/2019 PREOPERATIVE DIAGNOSIS: Chronic left hip wound. POSTOPERATIVE DIAGNOSIS: Chronic left hip wound. OPERATION PERFORMED: 1. Removal wound vacuum-assisted closure. 2. Irrigation and debridement, left hip wound. 3. Reapplication left wound vacuum negative-pressure therapy device. ANESTHESIA: General. ANTIBIOTICS GIVEN: None; patient on antibiotics on the floor. OPERATION DETAILS: The patient in the right lateral decubitus position under general anesthesia, left side up, left lower extremity was window-draped in the routine manner. The wound was isolated. The skin was cleansed with Betadine scrub solution, wiped off with alcohol, DuraPrep applied. This was prior to window-draping. Wound VAC was removed. The tissues and cavity were smaller in size than at the time of the last I and D. This was subjective visualization of the wound. There was no evidence of contamination nor clinically evident infection. There was no malodor of the wound. The wound measurements were: Length - 13 cm, width - 4 cm, depth - 7 cm. Tissues appeared healthy. A few foci revealed superficial fibrinous slough, which was removed with manual debridement using a Betadine scrub sponge. Again, this was not infectious nor infected tissue. The entire wound was cleansed and washed with Betadine scrub for the sake of removal of biofilm. A 5 L saline wash was performed. The Wound VAC sponge was stuffed into the wound cavity. It was sealed using adhesive dressing and the Wound VAC itself was applied with -125 mmHg negative-pressure therapy setting activated on the Wound VAC machine. The patient was then transferred to the stretcher and taken to the recovery room in stable condition, per the Anesthesia Team, having tolerated the procedure well. No complications. MD OSVALDO Oconnor/[id number]
[2019-01-14] MEDS: CYCLOBENZAPRINE HCL 5 MG TABLET PO SCH (23:11)
[2019-01-14] MEDS: ENOXAPARIN NA (PORCINE) 40 MG/0.4 ML DISP.SYRIN SQ SCH (23:11)
[2019-01-15] MEDS: oxyCODONE HCL 40 MG SUSTAINED ACTING TABLET PO SCH ×3 (00:06→22:04)
[2019-01-15] MEDS: diphenhydrAMINE HCL 25 MG CAPSULE (FP) PO PRN (00:06)
[2019-01-15] MEDS: DOCUSATE SODIUM 100 MG CAPSULE (FP) PO SCH ×4 (02:01→22:04)
[2019-01-15] MEDS ORDERED: PT OWN MED DRAWER 7, Y5N ONE ×2 (06:03→10:59)
[2019-01-15] MEDS: OXYBUTYNIN CHLORIDE 5 MG TABLET PO SCH ×3 (06:07→22:04)
[2019-01-15] MEDS: PREGABALIN 100 MG CAPSULE PO SCH ×3 (06:07→22:04)
[2019-01-15] MEDS: oxyCODONE HCL 5 MG TABLET PO PRN ×3 (06:09→18:24)
--- NOTE | 2019-01-15 08:10 | PN ---
Progress Note (short form) - Note Progress Note: POD1 s/p left hip wound i and d. Doing well - no anesthetic issues/ complications.
[2019-01-15] MEDS ORDERED: POLYETHYLENE GLYCOL 3350 119 GM BTL PO SCH (10:00)
[2019-01-15] MEDS ORDERED: PATIENT'S OWN MEDICATION (NON-FORMULARY) (Omeprazole [Omeprazole] 40 MG) PO SCH (10:00)
[2019-01-15] MEDS ORDERED: ASPIRIN 325 MG ENTERIC COATED TABLET (FP) PO SCH (10:00)
[2019-01-15] MEDS ORDERED: ERTAPENEM SODIUM 1 GM VIAL IVPB SCH ×2 (10:00)
[2019-01-15] MEDS: POLYETHYLENE GLYCOL 3350 119 GM BTL PO SCH (10:55)
[2019-01-15] MEDS: ERTAPENEM SODIUM 1 GM in SODIUM CHLORIDE 50 ML IVPB SCH (10:55)
[2019-01-15] MEDS: DULoxetine HCL 30 MG CAPSULE.DR (FP) PO SCH ×2 (10:55→22:04)
[2019-01-15] MEDS: PANTOPRAZOLE 40 MG TABLET (FP) PO SCH (10:55)
[2019-01-15] MEDS: CYCLOBENZAPRINE HCL 5 MG TABLET PO SCH (10:55)
[2019-01-15] MEDS: LISINOPRIL 10 MG TABLET (FP) PO SCH (10:55)
[2019-01-15] MEDS: AMINO ACIDS/PROTEIN HYDROLYS 30 ML LIQUID.PKT PO SCH ×2 (10:55→17:45)
[2019-01-15] MEDS: SENNOSIDES 8.6MG TABLET (FP) PO SCH ×2 (10:55→22:04)
[2019-01-15] MEDS: ASPIRIN 325 MG ENTERIC COATED TABLET (FP) PO SCH (10:55)
[2019-01-15] MEDS: ENOXAPARIN NA (PORCINE) 40 MG/0.4 ML DISP.SYRIN SQ SCH (10:55)
[2019-01-15] MEDS: FERROUS SO4 325 MG TABLET (FP) PO SCH ×2 (10:55→17:45)
--- NOTE | 2019-01-15 12:41 | PN ---
Physical Exam: SUBJECTIVE: Patient seen and examined OBJECTIVE: vtal Signs Period Temp Pulse Resp BP Sys/Vargas Pulse Ox Last 24 Hr 97.8 F-98.4 F 84-116 16-20 108-136/60-81 100-100 GENERAL: Awake, alert, and fully oriented, in no acute distress. HEAD: Normal with no signs of trauma. EYES: Pupils equal, round and reactive to light, extraocular movements intact, sclera anicteric, conjunctiva clear. No lid lag. EARS, NOSE, THROAT: Ears normal, nares patent, oropharynx clear without exudates. Moist mucous membranes. NECK: Normal range of motion, supple without lymphadenopathy, JVD, or masses. LUNGS: Breath sounds equal, clear to auscultation bilaterally. No wheezes, and no crackles. No accessory muscle use. HEART: Regular rate and rhythm ABDOMEN: Soft, nontender, not distended, normoactive bowel sounds, no guarding, no rebound, no masses. No hepatomegaly or splenomegaly. MUSCULOSKELETAL: Normal range of motion at all joints. No bony deformities or tenderness. No CVA tenderness. UPPER EXTREMITIES: No peripheral edema. LOWER EXTREMITIES: left lower ext non pitting edema, right lower ext with trace edema, will doppler. NEUROLOGICAL: Normal speech. PSYCHIATRIC: Cooperative. Good eye contact. Appropriate mood and affect. SKIN: left hip chronic wound s/p washout 01/14 Active Medications Generic Name Dose Route Start Last Admin Trade Name Freq PRN Reason Stop Dose Admin Al Hydroxide/Mg Hydroxide 30 ml 01/14/19 14:35 Mylanta Oral Suspension - PO Q6HPO PRN DYSPEPSIA Amino Acids 30 ml 01/14/19 17:30 01/15/19 10:55 Prosource No Carb Liquid Pkt PO 30 ml BID@0800,1730 [facility] Administration Aspirin 325 mg 01/15/19 10:00 01/15/19 10:55 Ecotrin - PO 325 mg DAILY [facility] Administration Cyclobenzaprine HCl 5 mg 01/15/19 10:00 01/15/19 10:55 Cyclobenzaprine Hcl PO 5 mg DAILY [facility] Administration Diazepam 5 mg 01/14/19 14:35 01/15/19 00:06 Valium - PO 5 mg HS PRN Administration ANXIETY Diphenhydramine HCl 25 mg 01/14/19 14:35 01/15/19 00:06 Benadryl - PO 25 mg HS PRN Administration INSOMNIA Docusate Sodium 100 mg 01/14/19 22:00 01/15/19 06:07 Colace - PO 100 mg TID [facility] Administration Duloxetine HCl 30 mg 01/14/19 22:00 01/15/19 10:55 Cymbalta - PO 30 mg BID [facility] Administration Enoxaparin Sodium 40 mg 01/15/19 10:00 01/15/19 10:55 Lovenox - SQ Not Given DAILY [facility] Fentanyl 50 mcg 01/14/19 14:35 Sublimaze Injection - IVPUSH 01/15/19 13:27 [id number] PRN PAIN-PACU ORDER X 4 DOSES ONLY Ferrous Sulfate 325 mg 01/14/19 17:30 01/15/19 10:55 Feosol - PO 325 mg BIDWM [facility] Administration Daptomycin 500 mg/ Sodium 50 mls @ 100 mls/hr 01/15/19 10:00 Chloride IVPB DAILY [facility] Protocol Ertapenem 1 gm/ Sodium 50 mls @ 100 mls/hr 01/15/19 10:00 01/15/19 10:55 Chloride IVPB 100 mls/hr DAILY [facility] Administration Lactated Ringer's 1,000 mls @ 125 mls/hr 01/14/19 14:35 01/14/19 22:23 Lactated Ringers Solution IV Not Given ASDIR [facility] Lisinopril 10 mg 01/15/19 10:00 01/15/19 10:55 Prinivil PO 10 mg DAILY [facility] Administration Ondansetron HCl 4 mg 01/14/19 14:35 Zofran Injection IVPUSH Q6H PRN NAUSEA AND/OR VOMITING Oxybutynin Chloride 5 mg 01/14/19 22:00 01/15/19 06:07 Ditropan - PO 5 mg TID [facility] Administration Oxycodone HCl 30 mg 01/14/19 14:35 01/15/19 06:09 Roxicodone - PO 30 mg Q4H PRN Administration PAIN LEVEL 7 - 10 Oxycodone HCl 80 mg 01/14/19 22:00 01/15/19 12:00 Oxycontin - PO 80 mg BID [facility] Administration Pantoprazole Sodium 40 mg 01/15/19 10:00 01/15/19 10:55 Protonix - PO 40 mg DAILY [facility] Administration Polyethylene Glycol 17 gm 01/15/19 10:00 01/15/19 10:55 Miralax (For Daily Use) - PO 17 gm DAILY [facility] Administration Pregabalin 100 mg 01/14/19 22:00 01/15/19 06:07 Lyrica - PO 100 mg TID [facility] Administration Promethazine HCl 12.5 mg 01/14/19 14:35 Phenergan Injection - IVPB Q6H PRN NAUSEA-FOR RESCUE AFTER 15 MIN Senna 1 tab 01/14/19 22:00 01/15/19 10:55 Senna - PO 1 tab BID [facility] Administration Senna 2 tab 01/14/19 14:35 Senna - PO HS PRN CONSTIPATION Simethicone 40 mg 01/14/19 14:35 Mylicon Liquid - PO Q6H PRN INDIGESTION ASSESSMENT/PLAN: Patient is a 63 year old female with a significant past medical history of hypertension, anxiety, depression, chronic pain and chronic left hip left wound. who has undergone left hip debridement of soft tissue, muscle, bone, VAC application, multiple I and D wound washes, s/p osteotomy left femur, removal of hardware (explant femoral component), I&D left hip wound; hardware removed by surgery. Patients presents to the OR s/p left wound washout today. Surgery: s/p left wound washout/vac placement on 01/14 Follow up care per surgery team On Daptomycin 500mg daily and Ertapenem 1 gram daily as per ID for minimum 8 weeks (started on 12/14/18, will need 8 weeks total) via tunneled catheter placed at [facility] on 12/19/18. Pain management with oxycodone, oxycontin 80mg, lyrica, flexeril and lidoderm patch Cardiology: hypertension: controlled on lisinopril 10mg daily Psyche: Depression, chronic Continue Cymbalta and Valium as needed. Heme: Anemia. monitor with daily labs. continue PO Iron therapy. : Urinary incontinence: Continue oxybutynin Severe Malnutrition She has had more than 100lb weight loss in a year and severe depletion of subcutaneous fat and muscle. Patient has chronic non healing wounds for extended amount of time. On a regular diet, on Prosource BID On Ensure pudding daily and magic cup daily monitor weights Dispo: requires inpatient admission. Visit type - Emergency Visit Emergency Visit: Yes ED Registration Date: 01/12/19 Care time: The patient presented to the Emergency Department on the above date and was hospitalized for further evaluation of their emergent condition. - New Patient This patient is new to me today: No - Critical Care Critical Care patient: No - Discharge Referral Referred to [facility] Med [facility].: No
[2019-01-15] MEDS: DAPTOMYCIN 500 MG in SODIUM CHLORIDE 50 ML IVPB SCH (13:41)
[2019-01-15] MEDS: LACTATED RINGERS SOLUTION 1,000 ML IV SCH (17:45)
[2019-01-16] MEDS: oxyCODONE HCL 5 MG TABLET PO PRN ×3 (01:36→16:10)
[2019-01-16] MEDS: DOCUSATE SODIUM 100 MG CAPSULE (FP) PO SCH ×3 (06:34→22:54)
[2019-01-16] MEDS: PREGABALIN 100 MG CAPSULE PO SCH ×3 (06:34→22:54)
[2019-01-16] MEDS: OXYBUTYNIN CHLORIDE 5 MG TABLET PO SCH ×3 (06:34→22:53)
[2019-01-16] MEDS ORDERED: PT OWN MED DRAWER 7, Y5N ONE (09:40)
[2019-01-16] MEDS: LISINOPRIL 10 MG TABLET (FP) PO SCH (09:58)
[2019-01-16] MEDS: PANTOPRAZOLE 40 MG TABLET (FP) PO SCH (09:58)
[2019-01-16] MEDS: DULoxetine HCL 30 MG CAPSULE.DR (FP) PO SCH ×2 (09:58→22:54)
[2019-01-16] MEDS: ASPIRIN 325 MG ENTERIC COATED TABLET (FP) PO SCH (09:58)
[2019-01-16] MEDS: SENNOSIDES 8.6MG TABLET (FP) PO SCH ×2 (09:58→22:54)
[2019-01-16] MEDS: CYCLOBENZAPRINE HCL 5 MG TABLET PO SCH (09:59)
[2019-01-16] MEDS: ERTAPENEM SODIUM 1 GM in SODIUM CHLORIDE 50 ML IVPB SCH (09:59)
[2019-01-16] MEDS: FERROUS SO4 325 MG TABLET (FP) PO SCH ×2 (10:00→17:17)
[2019-01-16] MEDS: AMINO ACIDS/PROTEIN HYDROLYS 30 ML LIQUID.PKT PO SCH ×2 (10:00→17:17)
[2019-01-16] MEDS: ENOXAPARIN NA (PORCINE) 40 MG/0.4 ML DISP.SYRIN SQ SCH (10:09)
[2019-01-16] MEDS: POLYETHYLENE GLYCOL 3350 119 GM BTL PO SCH (10:16)
[2019-01-16 11:26] LABS: EOS % 15.2 % (0-4.5); HEMATOCRIT 33.3 % (32.4-45.2); HEMOGLOBIN 10.5 GM/dL (10.7-15.3); LYMPH % 12.9 % (8-40); MCH 24.6 pg (25.7-33.7); MCHC 31.6 g/dl (32.0-36.0); MEAN CELL VOLUME 77.8 fl (80-96); MONO % 3.2 % (3.8-10.2); NEUT % 67.7 % (42.8-82.8); PLATELET COUNT 456 K/MM3 (134-434); RBC 4.28 M/mm3 (3.60-5.2); RDW 21.4 % (11.6-15.6); WHITE BLOOD COUNT 12.6 K/mm3 (4.0-10.0)
[2019-01-16 12:04] LABS: ALK PHOS 204 U/L (45-117); ANION GAP 6 MMOL/L (8-16); BILIRUBIN,TOTAL 0.2 mg/dL (0.2-1); BLOOD UREA NITROGEN 19 mg/dL (7-18); CALCIUM 8.8 mg/dL (8.5-10.1); CHLORIDE 111 mmol/L (98-107); CO2 23 mmol/L (21-32); CREATININE 0.8 mg/dL (0.55-1.3); GLUCOSE,RANDOM 105 mg/dL (74-106); POTASSIUM 4.7 mmol/L (3.5-5.1); SGOT/AST 16 U/L (15-37); SGPT/ALT 17 U/L (13-61); SODIUM 140 mmol/L (136-145); TOT PROT 7.3 g/dl (6.4-8.2)
[2019-01-16] MEDS: oxyCODONE HCL 40 MG SUSTAINED ACTING TABLET PO SCH ×2 (12:07→22:52)
[2019-01-16] MEDS: DAPTOMYCIN 500 MG in SODIUM CHLORIDE 50 ML IVPB SCH (12:07)
[2019-01-16 13:00] LABS: ANISOCYTOSIS 0; MACROCYTOSIS 0; PLATELET ESTIMATE NORMAL
--- NOTE | 2019-01-16 14:40 | PN ---
Progress Note (short form) - Note Progress Note: ID consult dictated
--- NOTE | 2019-01-16 15:50 | PN ---
Physical Exam: SUBJECTIVE: Patient seen and examined 24 HR EVENTS: -no acute changes in her clinical status OBJECTIVE: Vital Signs Period Temp Pulse Resp BP Sys/Vargas Pulse Ox Last 24 Hr 97.3 F-98.2 F 90-125 16-20 100-139/57-89 97-97 GENERAL: The patient is awake, alert, and fully oriented, in no acute distress. HEAD: Normal with no signs of trauma. EYES: PERRL, extraocular movements intact, sclera anicteric, conjunctiva clear. No ptosis. ENT: nares patent, missing teeth NECK: Trachea midline, full range of motion, supple. LUNGS: Breath sounds equal, clear to auscultation bilaterally, no wheezes, no crackles, no accessory muscle use. HEART: Regular rate and rhythm, S1, S2 without murmur, rub or gallop. ABDOMEN: Soft, nontender, nondistended, normoactive bowel sounds, no guarding, EXTREMITIES: 2+ pulses, warm, well-perfused, no edema. NEUROLOGICAL: Normal speech, gait not observed. PSYCH: Normal mood, normal affect. SKIN: Warm, dry, normal turgor,Left hip with large open wound which is packed and connected to wound VAC Laboratory Results - last 24 hr 01/16/19 01/16/19 11:15 11:15 WBC 12.6 H RBC 4.28 Hgb 10.5 L Hct 33.3 MCV 77.8 L MCH 24.6 L MCHC 31.6 L RDW 21.4 H Plt Count 456 H D MPV 7.0 L Absolute Neuts (auto) 8.5 H Neutrophils % 67.7 Lymphocytes % 12.9 Monocytes % 3.2 L Eosinophils % 15.2 H Basophils % 1.0 Nucleated RBC % 0 Hypochromia 0 Platelet Estimate Normal Polychromasia 0 Poikilocytosis 0 Anisocytosis 0 Microcytosis 0 Macrocytosis 0 Sodium 140 Potassium 4.7 Chloride 111 H Carbon Dioxide 23 Anion Gap 6 L BUN 19 H Creatinine 0.8 Creat Clearance w eGFR 72.44 Random Glucose 105 Calcium 8.8 Total Bilirubin 0.2 AST 16 ALT 17 Alkaline Phosphatase 204 H Total Protein 7.3 Albumin 3.0 L Active Medications Generic Name Dose Route Start Last Admin Trade Name Freq PRN Reason Stop Dose Admin Al Hydroxide/Mg Hydroxide 30 ml 01/14/19 14:35 Mylanta Oral Suspension - PO Q6HPO PRN DYSPEPSIA Amino Acids 30 ml 01/14/19 17:30 01/16/19 10:00 Prosource No Carb Liquid Pkt PO 30 ml BID@0800,1730 ELKE Administration Aspirin 325 mg 01/15/19 10:00 01/16/19 09:58 Ecotrin - PO 325 mg DAILY ELKE Administration Cyclobenzaprine HCl 5 mg 01/15/19 10:00 01/16/19 09:59 Cyclobenzaprine Hcl PO 5 mg DAILY ELKE Administration Diazepam 5 mg 01/14/19 14:35 01/15/19 00:06 Valium - PO 5 mg HS PRN Administration ANXIETY Diphenhydramine HCl 25 mg 01/14/19 14:35 01/15/19 00:06 Benadryl - PO 25 mg HS PRN Administration INSOMNIA Docusate Sodium 100 mg 01/14/19 22:00 01/16/19 13:43 Colace - PO 100 mg TID ELKE Administration Duloxetine HCl 30 mg 01/14/19 22:00 01/16/19 09:58 Cymbalta - PO 30 mg BID ELKE Administration Enoxaparin Sodium 40 mg 01/15/19 10:00 01/16/19 10:09 Lovenox - SQ Not Given DAILY [facility] Ferrous Sulfate 325 mg 01/14/19 17:30 01/16/19 10:00 Feosol - PO 325 mg BIDWM ELKE Administration Daptomycin 500 mg/ Sodium 50 mls @ 100 mls/hr 01/15/19 10:00 01/16/19 12:07 Chloride IVPB 100 mls/hr DAILY ELKE Administration Protocol Ertapenem 1 gm/ Sodium 50 mls @ 100 mls/hr 01/15/19 10:00 01/16/19 09:59 Chloride IVPB 100 mls/hr DAILY ELKE Administration Lactated Ringer's 1,000 mls @ 125 mls/hr 01/14/19 14:35 01/15/19 17:45 Lactated Ringers Solution IV Not Given ASDIR ELKE Lisinopril 10 mg 01/15/19 10:00 01/16/19 09:58 Prinivil PO 10 mg DAILY ELKE Administration Ondansetron HCl 4 mg 01/14/19 14:35 Zofran Injection IVPUSH Q6H PRN NAUSEA AND/OR VOMITING Oxybutynin Chloride 5 mg 01/14/19 22:00 01/16/19 13:43 Ditropan - PO 5 mg TID ELKE Administration Oxycodone HCl 30 mg 01/14/19 14:35 01/16/19 10:13 Roxicodone - PO 30 mg Q4H PRN Administration PAIN LEVEL 7 - 10 Oxycodone HCl 80 mg 01/14/19 22:00 01/16/19 12:07 Oxycontin - PO 80 mg BID ELKE Administration Pantoprazole Sodium 40 mg 01/15/19 10:00 01/16/19 09:58 Protonix - PO 40 mg DAILY ELKE Administration Polyethylene Glycol 17 gm 01/15/19 10:00 01/16/19 10:16 Miralax (For Daily Use) - PO 17 gm DAILY ELKE Administration Pregabalin 100 mg 01/14/19 22:00 01/16/19 13:44 Lyrica - PO 100 mg TID ELKE Administration Promethazine HCl 12.5 mg 01/14/19 14:35 Phenergan Injection - IVPB Q6H PRN NAUSEA-FOR RESCUE AFTER 15 MIN Senna 1 tab 01/14/19 22:00 01/16/19 09:58 Senna - PO 1 tab BID ELKE Administration Senna 2 tab 01/14/19 14:35 Senna - PO HS PRN CONSTIPATION Simethicone 40 mg 01/14/19 14:35 Mylicon Liquid - PO Q6H PRN INDIGESTION ASSESSMENT/PLAN: 63 year old female with a significant past medical history of hypertension, anxiety, depression, chronic pain and chronic left hip left wound. who has undergone left hip debridement of soft tissue, muscle, bone, VAC application, multiple I and D wound washes, s/p osteotomy left femur, removal of hardware (explant femoral component), I&D left hip wound. Last procedure was OR on 01/14 for Left hip washout. Problem List - Problems (1) Wound, open, hip or thigh Assessment/Plan: - Chronic left hip wound-with ESBL E coli and E Faecalis - continue dapto and meropenem for minimum 8 weeks as per ID - R subcl PICC line in place for longerm abx administration - Thursday 01/18 will make 5 weeks. Pt may need to d/felisa to SNF or remain inpt for remaining 3 weeks of abx administration since her insurance is not active and will not cover home infusion. Code(s): KIP1756 - (2) Anemia Assessment/Plan: -Oral iron daily Code(s): D64.9 - ANEMIA, UNSPECIFIED (3) Chronic pain Assessment/Plan: pain control with oxycodone, lyrica, flexeril and lidoderm patch Code(s): G89.29 - OTHER CHRONIC PAIN (4) Depression Assessment/Plan: Continue Cymbalta, - Valium as needed. Code(s): F32.9 - MAJOR DEPRESSIVE DISORDER, SINGLE EPISODE, UNSPECIFIED (5) HTN (hypertension) Assessment/Plan: lisinopril 10mg daily Code(s): I10 - ESSENTIAL (PRIMARY) HYPERTENSION (6) Prophylactic measure Assessment/Plan: - PPI daily - bowel regimen with senna, miralax and colace -simethicone PRN gas pain -ASA 325mg daily Code(s): Z29.9 - ENCOUNTER FOR PROPHYLACTIC MEASURES, UNSPECIFIED (7) Severe malnutrition Assessment/Plan: - Continue Prosource, Ensure, Magic Cup Code(s): E43 - UNSPECIFIED SEVERE PROTEIN-CALORIE MALNUTRITION (8) Urinary incontinence due to immobility Assessment/Plan: - Cont oxybutynin Code(s): R39.81 - FUNCTIONAL URINARY INCONTINENCE Visit type - Emergency Visit Emergency Visit: Yes ED Registration Date: 01/12/19 Care time: The patient presented to the Emergency Department on the above date and was hospitalized for further evaluation of their emergent condition. - New Patient This patient is new to me today: No - Critical Care Critical Care patient: No - Discharge Referral Referred to [facility] Med P.C.: No
[2019-01-16] MEDS: LACTATED RINGERS SOLUTION 1,000 ML IV SCH (15:54)
--- NOTE | 2019-01-16 20:33 | CONS ---
DATE OF CONSULTATION: DATE OF DICTATION: 01/16/2019 INFECTIOUS DISEASE CONSULTATION HISTORY OF PRESENT ILLNESS: This is a 63-year-old woman who I originally saw in November of this year when she was undergoing one of numerous debridements of a right hip wound. She had had a chronic wound that I have a detailed dictation from November, at which time I spoke with her doctors at [facility] and found out she had roughly a 2-year history of a hip replacement that had become chronically dislocated, was then replaced again, after which it became infected. She had multiple debridements with multiple oral antibiotics, and ultimately at the end of November I saw her December 14 when she had a fever, and at that time she found out that the hardware had been removed December 10 from her hip and that she now had a VAC in place. So at that point, the decision was made to treat the operative cultures, which were highly resistant organisms including an E. coli ESBL and a VREF. She was placed on ertapenem and daptomycin with plans to continue treatment now that the hardware was out definitively for at least a minimum of 8 weeks. So she has now been readmitted. So a PICC line was placed, and she was started on antibiotics. Now she has been admitted multiple times again for continued debridement with orthopedics, the cultures of which have all been negative. I am asked to comment again about her antibiotic management. She is awake and alert. She is resting comfortably. She has had no further fevers. She is allergic to , LASIX, MORPHINE, and TOMATOES. Vancomycin-resistant Enterobacteriaceae faecium PAST MEDICAL HISTORY: Notable for hypertension, anxiety, depression, chronic pain, chronic left hip prosthetic wound infection status post explant on December 10. SOCIAL HISTORY: She lives in the [place] with her and her son. REVIEW OF SYSTEMS: Currently she feels well. She has no diarrhea, dysuria. She has no shortness of breath. PHYSICAL EXAMINATION: GENERAL: She is awake and alert, sitting on the bed. VITAL SIGNS: Temperature is 98.2, pulse is 125, blood pressure 122/70, respiratory rate 18, she is saturating 97%. HEENT: Normocephalic. Eyes are anicteric. NECK: Supple. LUNGS: Clear to auscultation. HEART: Regular rate and rhythm. ABDOMEN: Soft. LABORATORY: White count is 12.6, hemoglobin 10.5, platelets are 456. Her chemistries, BUN and creatinine, are 19 and 0.8. Her last CK was 36. Her CRP in November was 11 and is now 1.4, and her sedimentation rate which was over 100 is now 48. IMPRESSION: In summary, this is a 63-year-old woman with prosthetic hip infection that finally has had an explant. Pathogens have been E. coli ESBL and a VREF. As per the prior plan which was discussed at length with both the hospitalist service as well as the orthopedist, the plan would be to continue ertapenem and daptomycin mcfp. She has now roughly completed 4 weeks of treatment after the hardware was removed. She needs weekly labs and CPK. She needs weekly sedimentation rate, CRP, and CPK. She needs a minimum of 8 weeks of antibiotics, perhaps longer. I discussed this at length with the patient, who is agreeable with this plan. I would recommend that if she gets discharged to home she follow up with an infectious disease doctor in the [place], as it is not convenient for her to come to [place]. This has been all discussed with the patient as well as the hospitalist service. Her antibiotic management has been discussed in the past with the orthopedist as well. EDILBERTO SALMON M.D. [id number]
[2019-01-17] MEDS: diphenhydrAMINE HCL 25 MG CAPSULE (FP) PO PRN ×2 (00:43→23:21)
[2019-01-17] MEDS: oxyCODONE HCL 5 MG TABLET PO PRN ×5 (00:43→21:14)
[2019-01-17] MEDS: PREGABALIN 100 MG CAPSULE PO SCH ×3 (06:43→21:15)
[2019-01-17] MEDS: DOCUSATE SODIUM 100 MG CAPSULE (FP) PO SCH ×3 (06:43→21:16)
[2019-01-17] MEDS: OXYBUTYNIN CHLORIDE 5 MG TABLET PO SCH ×3 (06:43→21:15)
[2019-01-17 07:41] LABS: HEMATOCRIT 31.7 % (32.4-45.2); MCH 24.4 pg (25.7-33.7); MCHC 31.5 g/dl (32.0-36.0); MEAN CELL VOLUME 77.5 fl (80-96); MEAN PLT VOLUME 7.3 fl (7.5-11.1); PLATELET COUNT 407 K/MM3 (134-434); RBC 4.09 M/mm3 (3.60-5.2); RDW 20.9 % (11.6-15.6); WHITE BLOOD COUNT 8.1 K/mm3 (4.0-10.0)
[2019-01-17 08:08] LABS: ANION GAP 7 MMOL/L (8-16); BLOOD UREA NITROGEN 18 mg/dL (7-18); CALCIUM 9.1 mg/dL (8.5-10.1); CHLORIDE 112 mmol/L (98-107); CO2 22 mmol/L (21-32); CREATININE 0.8 mg/dL (0.55-1.3); GLUCOSE,RANDOM 124 mg/dL (74-106); MAGNESIUM 2.2 mg/dL (1.8-2.4); POTASSIUM 4.1 mmol/L (3.5-5.1); SODIUM 142 mmol/L (136-145)
[2019-01-17] MEDS: FERROUS SO4 325 MG TABLET (FP) PO SCH ×2 (08:37→17:02)
[2019-01-17] MEDS: AMINO ACIDS/PROTEIN HYDROLYS 30 ML LIQUID.PKT PO SCH ×2 (08:37→17:02)
[2019-01-17] MEDS: ASPIRIN 325 MG ENTERIC COATED TABLET (FP) PO SCH (09:46)
[2019-01-17] MEDS: DULoxetine HCL 30 MG CAPSULE.DR (FP) PO SCH ×2 (09:46→21:15)
[2019-01-17] MEDS: PANTOPRAZOLE 40 MG TABLET (FP) PO SCH (09:46)
[2019-01-17] MEDS: SENNOSIDES 8.6MG TABLET (FP) PO SCH ×2 (09:47→21:15)
[2019-01-17] MEDS: ERTAPENEM SODIUM 1 GM in SODIUM CHLORIDE 50 ML IVPB SCH (09:47)
[2019-01-17] MEDS: ENOXAPARIN NA (PORCINE) 40 MG/0.4 ML DISP.SYRIN SQ SCH (09:48)
[2019-01-17] MEDS: CYCLOBENZAPRINE HCL 5 MG TABLET PO SCH (09:48)
[2019-01-17] MEDS: POLYETHYLENE GLYCOL 3350 119 GM BTL PO SCH (09:50)
[2019-01-17 10:04] LABS: ERYTHROCYTE SEDIMENTATION RATE 57 mm/hr (0-30)
[2019-01-17] MEDS: LISINOPRIL 10 MG TABLET (FP) PO SCH (11:14)
[2019-01-17] MEDS: oxyCODONE HCL 40 MG SUSTAINED ACTING TABLET PO SCH ×2 (11:14→23:21)
[2019-01-17] MEDS: DAPTOMYCIN 500 MG in SODIUM CHLORIDE 50 ML IVPB SCH (11:16)
[2019-01-17] MEDS: LACTATED RINGERS SOLUTION 1,000 ML IV SCH (14:46)
--- NOTE | 2019-01-17 16:59 | PN ---
Physical Exam: SUBJECTIVE: Patient seen and examined at the bedside. OBJECTIVE: Vital Signs Period Temp Pulse Resp BP Sys/Vargas Pulse Ox Last 24 Hr 97.6 F-98.6 F 97-125 18-18 103-168/55-81 97-97 GENERAL: Awake, alert, and fully oriented, in no acute distress. HEAD: Normal with no signs of trauma. EYES: Pupils equal, round and reactive to light, extraocular movements intact, sclera anicteric, conjunctiva clear. No lid lag. EARS, NOSE, THROAT: Ears normal, nares patent, oropharynx clear without exudates. Moist mucous membranes. NECK: Normal range of motion, supple without lymphadenopathy, JVD, or masses. LUNGS: Breath sounds equal, clear to auscultation bilaterally. No wheezes, and no crackles. No accessory muscle use. HEART: Regular rate and rhythm ABDOMEN: Soft, nontender, not distended, normoactive bowel sounds, no guarding, no rebound, no masses. No hepatomegaly or splenomegaly. MUSCULOSKELETAL: Normal range of motion at all joints. No bony deformities or tenderness. No CVA tenderness. UPPER EXTREMITIES: No peripheral edema. LOWER EXTREMITIES: left lower ext non pitting edema, right lower ext with trace edema, will doppler. NEUROLOGICAL: Normal speech. PSYCHIATRIC: Cooperative. Good eye contact. Appropriate mood and affect. SKIN: left hip chronic wound s/p washout 01/14 Laboratory Results - last 24 hr 01/17/19 01/17/19 07:10 07:10 WBC 8.1 RBC 4.09 Hgb 10.0 L Hct 31.7 L MCV 77.5 L MCH 24.4 L MCHC 31.5 L RDW 20.9 H Plt Count 407 MPV 7.3 L ESR 57 H Sodium 142 Potassium 4.1 Chloride 112 H Carbon Dioxide 22 Anion Gap 7 L BUN 18 Creatinine 0.8 Creat Clearance w eGFR 72.44 Random Glucose 124 H Calcium 9.1 Magnesium 2.2 Creatine Kinase 79 Active Medications Generic Name Dose Route Start Last Admin Trade Name Freq PRN Reason Stop Dose Admin Al Hydroxide/Mg Hydroxide 30 ml 01/14/19 14:35 Mylanta Oral Suspension - PO Q6HPO PRN DYSPEPSIA Amino Acids 30 ml 01/14/19 17:30 01/17/19 08:37 Prosource No Carb Liquid Pkt PO 30 ml BID@0800,1730 ELKE Administration Aspirin 325 mg 01/15/19 10:00 01/17/19 09:46 Ecotrin - PO 325 mg DAILY ELKE Administration Cyclobenzaprine HCl 5 mg 01/15/19 10:00 01/17/19 09:48 Cyclobenzaprine Hcl PO 5 mg DAILY ELKE Administration Diphenhydramine HCl 25 mg 01/14/19 14:35 01/17/19 00:43 Benadryl - PO 25 mg HS PRN Administration INSOMNIA Docusate Sodium 100 mg 01/14/19 22:00 01/17/19 14:41 Colace - PO 100 mg TID ELKE Administration Duloxetine HCl 30 mg 01/14/19 22:00 01/17/19 09:46 Cymbalta - PO 30 mg BID ELKE Administration Enoxaparin Sodium 40 mg 01/15/19 10:00 01/17/19 09:48 Lovenox - SQ Not Given DAILY [facility] Ferrous Sulfate 325 mg 01/14/19 17:30 01/17/19 08:37 Feosol - PO 325 mg BIDWM ELKE Administration Daptomycin 500 mg/ Sodium 50 mls @ 100 mls/hr 01/15/19 10:00 01/17/19 11:16 Chloride IVPB 100 mls/hr DAILY ELKE Administration Protocol Ertapenem 1 gm/ Sodium 50 mls @ 100 mls/hr 01/15/19 10:00 01/17/19 09:47 Chloride IVPB 100 mls/hr DAILY ELKE Administration Lactated Ringer's 1,000 mls @ 125 mls/hr 01/14/19 14:35 01/17/19 14:46 Lactated Ringers Solution IV Not Given ASDIR [facility] Lisinopril 10 mg 01/15/19 10:00 01/17/19 11:14 Prinivil PO 10 mg DAILY ELKE Administration Ondansetron HCl 4 mg 01/14/19 14:35 Zofran Injection IVPUSH Q6H PRN NAUSEA AND/OR VOMITING Oxybutynin Chloride 5 mg 01/14/19 22:00 01/17/19 14:41 Ditropan - PO 5 mg TID ELKE Administration Oxycodone HCl 80 mg 01/14/19 22:00 01/17/19 11:14 Oxycontin - PO 80 mg BID ELKE Administration Oxycodone HCl 30 mg 01/17/19 14:48 Roxicodone - PO Q4H PRN PAIN LEVEL 7 - 10 Pantoprazole Sodium 40 mg 01/15/19 10:00 01/17/19 09:46 Protonix - PO 40 mg DAILY ELKE Administration Polyethylene Glycol 17 gm 01/15/19 10:00 01/17/19 09:50 Miralax (For Daily Use) - PO Not Given DAILY ELKE Pregabalin 100 mg 01/14/19 22:00 01/17/19 14:41 Lyrica - PO 100 mg TID ELKE Administration Promethazine HCl 12.5 mg 01/14/19 14:35 Phenergan Injection - IVPB Q6H PRN NAUSEA-FOR RESCUE AFTER 15 MIN Senna 1 tab 01/14/19 22:00 01/17/19 09:47 Senna - PO 1 tab BID ELKE Administration Senna 2 tab 01/14/19 14:35 Senna - PO HS PRN CONSTIPATION Simethicone 40 mg 01/14/19 14:35 Mylicon Liquid - PO Q6H PRN INDIGESTION ASSESSMENT/PLAN: Patient is a 63 year old female with a significant past medical history of hypertension, anxiety, depression, chronic pain and chronic left hip left wound. who has undergone left hip debridement of soft tissue, muscle, bone, VAC application, multiple I and D wound washes, s/p osteotomy left femur, removal of hardware (explant femoral component), I&D left hip wound; hardware removed by surgery. Patients presents to the OR s/p left wound washout today. Surgery: s/p left wound washout/vac placement on 01/14 Follow up care per surgery team On Daptomycin 500mg daily and Ertapenem 1 gram daily as per ID for minimum 8 weeks (started on 12/14/18, will need 8 weeks total) via tunneled catheter placed at [facility] on 12/19/18. Cardiology: hypertension: controlled on lisinopril 10mg daily Psyche: Depression, chronic. Continue Cymbalta and Valium as needed. Heme: Anemia. monitor with daily labs. continue PO Iron therapy. : Urinary incontinence: Continue oxybutynin Severe Malnutrition She has had more than 100lb weight loss in a year and severe depletion of subcutaneous fat and muscle. On a regular diet, on Prosource BID. On Ensure pudding daily and magic cup daily Dispo: requires inpatient admission. discharge once cleared by surgery. Visit type - Emergency Visit Emergency Visit: Yes ED Registration Date: 01/12/19 Care time: The patient presented to the Emergency Department on the above date and was hospitalized for further evaluation of their emergent condition. - New Patient This patient is new to me today: No - Critical Care Critical Care patient: No - Discharge Referral Referred to [facility] Med P.C.: No
[2019-01-17] MEDS ORDERED: PT OWN MED DRAWER 7, Y5N ONE (18:19)
[2019-01-18] MEDS: diazePAM 5 MG TABLET PO PRN (00:49)
[2019-01-18] MEDS: oxyCODONE HCL 5 MG TABLET PO PRN ×2 (02:48→14:05)
[2019-01-18] MEDS: DOCUSATE SODIUM 100 MG CAPSULE (FP) PO SCH ×3 (06:55→23:25)
[2019-01-18] MEDS: OXYBUTYNIN CHLORIDE 5 MG TABLET PO SCH ×3 (06:55→23:25)
[2019-01-18] MEDS: PREGABALIN 100 MG CAPSULE PO SCH ×3 (06:55→23:25)
[2019-01-18] MEDS: oxyCODONE HCL 40 MG SUSTAINED ACTING TABLET PO SCH ×2 (10:00→23:25)
[2019-01-18 10:03] LABS: EOS % 16.7 % (0-4.5); HEMATOCRIT 33.1 % (32.4-45.2); HEMOGLOBIN 10.4 GM/dL (10.7-15.3); LYMPH % 14.2 % (8-40); MCH 24.3 pg (25.7-33.7); MCHC 31.3 g/dl (32.0-36.0); MEAN CELL VOLUME 77.5 fl (80-96); MEAN PLT VOLUME 7.2 fl (7.5-11.1); MONO % 5.2 % (3.8-10.2); NEUT % 62.9 % (42.8-82.8); PLATELET COUNT 316 K/MM3 (134-434); RBC 4.27 M/mm3 (3.60-5.2); RDW 20.6 % (11.6-15.6); WHITE BLOOD COUNT 8.5 K/mm3 (4.0-10.0)
[2019-01-18 10:37] LABS: ALBUMIN 2.8 g/dl (3.4-5.0); ALK PHOS 213 U/L (45-117); ANION GAP 6 MMOL/L (8-16); BILIRUBIN,TOTAL 0.2 mg/dL (0.2-1); BLOOD UREA NITROGEN 16 mg/dL (7-18); CALCIUM 8.8 mg/dL (8.5-10.1); CHLORIDE 112 mmol/L (98-107); CO2 22 mmol/L (21-32); CREATININE 0.7 mg/dL (0.55-1.3); GLUCOSE,RANDOM 99 mg/dL (74-106); POTASSIUM 4.1 mmol/L (3.5-5.1); SGOT/AST 14 U/L (15-37); SGPT/ALT 17 U/L (13-61); SODIUM 140 mmol/L (136-145)
[2019-01-18] MEDS: AMINO ACIDS/PROTEIN HYDROLYS 30 ML LIQUID.PKT PO SCH ×2 (11:03→18:17)
[2019-01-18] MEDS: FERROUS SO4 325 MG TABLET (FP) PO SCH ×2 (11:03→18:17)
[2019-01-18] MEDS: DAPTOMYCIN 500 MG in SODIUM CHLORIDE 50 ML IVPB SCH (11:04)
[2019-01-18] MEDS: ERTAPENEM SODIUM 1 GM in SODIUM CHLORIDE 50 ML IVPB SCH (11:05)
[2019-01-18] MEDS: ENOXAPARIN NA (PORCINE) 40 MG/0.4 ML DISP.SYRIN SQ SCH (11:05)
[2019-01-18] MEDS: POLYETHYLENE GLYCOL 3350 119 GM BTL PO SCH (11:05)
[2019-01-18] MEDS: SENNOSIDES 8.6MG TABLET (FP) PO SCH ×2 (11:06→23:27)
--- NOTE | 2019-01-18 11:10 | PN ---
Physical Exam: SUBJECTIVE: Patient unable to answer my questions this morning, minimally responsive to auditory or tactile stimuli found in the bed sideways on her back. vitals are stable. OBJECTIVE: Patient found minimally responsive to tactile and verbal stimuli upon entering her room at 0915. her vitals are stable, labs are stable, her breathing is non labored. concerned over patients altered mental status, and being minimally responsive and unable to answer me when I asked her if she was ok Had patient on previous visits and she has been on this same pain medication regimen (oxy 30mg q4 prn and oxycontin 80mg bid) but am concerned that she may need narcan if she continues to be this altered and if she is also taking her own pain medications which I suspect that she is. concerned for her safety, i looked into her pink backpack in the presence of her primary RN and saw that she had oxycodone 30mg tablets. discussed with patient advocate and security assisted in removing these medications from patient's room. asked patient to call us if she is having pain as we have these medications on her profile and can monitor her pain levels. patient awake and more alert, but her speech is still slurred. she was safely re positioned in bed.no other neurological deficits. will monitor. Vital Signs Period Temp Pulse Resp BP Sys/Vargas Pulse Ox Last 24 Hr 98.0 F-98.6 F 105-120 16-19 120-168/62-73 98 GENERAL: lethargic, minimally responsive this a.m. , woke up later but her speech slurred. HEAD: Normal with no signs of trauma. EYES: Pupils equal, round and reactive to light, EARS, NOSE, THROAT: Ears normal, nares patent, oropharynx clear without exudates. Moist mucous membranes. NECK: Normal range of motion, supple without lymphadenopathy, JVD, or masses. LUNGS: diminished bilaterally ABDOMEN: Soft, nontender, not distended, normoactive bowel sounds, no guarding, MUSCULOSKELETAL: Normal range of motion at all joints. No bony deformities or tenderness. No CVA tenderness. UPPER EXTREMITIES: No peripheral edema. LOWER EXTREMITIES: bilateral lower ext trace edema. no dvt on doppler NEUROLOGICAL: slurred speech SKIN: left hip chronic wound s/p washout 01/14 Laboratory Results - last 24 hr 01/18/19 01/18/19 09:43 09:43 WBC 8.5 RBC 4.27 Hgb 10.4 L Hct 33.1 MCV 77.5 L MCH 24.3 L MCHC 31.3 L RDW 20.6 H Plt Count 316 D MPV 7.2 L Absolute Neuts (auto) 5.3 Neutrophils % 62.9 Lymphocytes % 14.2 Monocytes % 5.2 Eosinophils % 16.7 H Basophils % 1.0 Nucleated RBC % 0 Sodium 140 Potassium 4.1 Chloride 112 H Carbon Dioxide 22 Anion Gap 6 L BUN 16 Creatinine 0.7 Creat Clearance w eGFR 84.51 Random Glucose 99 Calcium 8.8 Total Bilirubin 0.2 AST 14 L ALT 17 Alkaline Phosphatase 213 H Total Protein 7.0 Albumin 2.8 L Active Medications Generic Name Dose Route Start Last Admin Trade Name Freq PRN Reason Stop Dose Admin Al Hydroxide/Mg Hydroxide 30 ml 01/14/19 14:35 Mylanta Oral Suspension - PO Q6HPO PRN DYSPEPSIA Amino Acids 30 ml 01/14/19 17:30 01/18/19 11:03 Prosource No Carb Liquid Pkt PO Not Given BID@0800,1730 [facility] Aspirin 325 mg 01/15/19 10:00 01/17/19 09:46 Ecotrin - PO 325 mg DAILY ELKE Administration Cyclobenzaprine HCl 5 mg 01/15/19 10:00 01/17/19 09:48 Cyclobenzaprine Hcl PO 5 mg DAILY ELKE Administration Diazepam 5 mg 01/18/19 00:46 01/18/19 00:49 Valium - PO 5 mg HS PRN Administration ANXIETY Diphenhydramine HCl 25 mg 01/14/19 14:35 01/17/19 23:21 Benadryl - PO 25 mg HS PRN Administration INSOMNIA Docusate Sodium 100 mg 01/14/19 22:00 01/18/19 06:55 Colace - PO 100 mg TID ELKE Administration Duloxetine HCl 30 mg 01/14/19 22:00 01/17/19 21:15 Cymbalta - PO 30 mg BID ELKE Administration Enoxaparin Sodium 40 mg 01/15/19 10:00 01/18/19 11:05 Lovenox - SQ Not Given DAILY [facility] Ferrous Sulfate 325 mg 01/14/19 17:30 01/18/19 11:03 Feosol - PO Not Given BIDWM [facility] Daptomycin 500 mg/ Sodium 50 mls @ 100 mls/hr 01/15/19 10:00 01/18/19 11:04 Chloride IVPB 100 mls/hr DAILY ELKE Administration Protocol Ertapenem 1 gm/ Sodium 50 mls @ 100 mls/hr 01/15/19 10:00 01/18/19 11:05 Chloride IVPB 100 mls/hr DAILY ELKE Administration Lactated Ringer's 1,000 mls @ 125 mls/hr 01/14/19 14:35 01/17/19 14:46 Lactated Ringers Solution IV Not Given ASDIR ELKE Lisinopril 10 mg 01/15/19 10:00 01/17/19 11:14 Prinivil PO 10 mg DAILY ELKE Administration Ondansetron HCl 4 mg 01/14/19 14:35 Zofran Injection IVPUSH Q6H PRN NAUSEA AND/OR VOMITING Oxybutynin Chloride 5 mg 01/14/19 22:00 01/18/19 06:55 Ditropan - PO 5 mg TID ELKE Administration Oxycodone HCl 80 mg 01/14/19 22:00 01/17/19 23:21 Oxycontin - PO 80 mg BID ELKE Administration Oxycodone HCl 30 mg 01/17/19 14:48 01/18/19 02:48 Roxicodone - PO 30 mg Q4H PRN Administration PAIN LEVEL 7 - 10 Pantoprazole Sodium 40 mg 01/15/19 10:00 01/17/19 09:46 Protonix - PO 40 mg DAILY ELKE Administration Polyethylene Glycol 17 gm 01/15/19 10:00 01/18/19 11:05 Miralax (For Daily Use) - PO Not Given DAILY [facility] Pregabalin 100 mg 01/14/19 22:00 01/18/19 06:55 Lyrica - PO 100 mg TID ELKE Administration Promethazine HCl 12.5 mg 01/14/19 14:35 Phenergan Injection - IVPB Q6H PRN NAUSEA-FOR RESCUE AFTER 15 MIN Senna 1 tab 01/14/19 22:00 01/18/19 11:06 Senna - PO Not Given BID ELKE Senna 2 tab 01/14/19 14:35 Senna - PO HS PRN CONSTIPATION Simethicone 40 mg 01/14/19 14:35 Mylicon Liquid - PO Q6H PRN INDIGESTION ASSESSMENT/PLAN: Patient is a 63 year old female with a significant past medical history of hypertension, anxiety, depression, chronic pain and chronic left hip left wound. who has undergone left hip debridement of soft tissue, muscle, bone, VAC application, multiple I and D wound washes, s/p osteotomy left femur, removal of hardware (explant femoral component), I&D left hip wound; hardware removed by surgery. Patients presents to the OR s/p left wound washout today. Surgery: s/p left wound washout/vac placement on 01/14 Follow up care per surgery team. On Daptomycin 500mg daily and Ertapenem 1 gram daily as per ID for minimum 8 weeks (started on 12/14/18, will need 8 weeks total ) via tunneled catheter placed at [facility] on 12/19/18. hypertension: controlled on lisinopril 10mg daily Depression, chronic. Continue Cymbalta and Valium as needed. Anemia. monitor with daily labs. continue PO Iron therapy. Urinary incontinence: Continue oxybutynin. no retention of urine. Severe Malnutrition: On a regular diet, on Prosource BID. On Ensure pudding daily and magic cup daily Opioid dependence: continue oxy 30 q4 and oxycontin 80bid. with close monitoring of mental status. Dispo: requires inpatient admission. discharge once cleared by surgery. Visit type - Emergency Visit Emergency Visit: Yes ED Registration Date: 01/12/19 Care time: The patient presented to the Emergency Department on the above date and was hospitalized for further evaluation of their emergent condition. - New Patient This patient is new to me today: No - Critical Care Critical Care patient: No - Discharge Referral Referred to [facility] Med P.C.: No
[2019-01-18 12:22] LABS: MAGNESIUM 1.9 mg/dL (1.8-2.4)
[2019-01-18] MEDS ORDERED: PT OWN MED DRAWER 7, Y5N ONE (13:55)
[2019-01-18] MEDS: CYCLOBENZAPRINE HCL 5 MG TABLET PO SCH (14:06)
[2019-01-18] MEDS: PANTOPRAZOLE 40 MG TABLET (FP) PO SCH (14:06)
[2019-01-18] MEDS: DULoxetine HCL 30 MG CAPSULE.DR (FP) PO SCH ×2 (14:07→23:25)
[2019-01-18] MEDS: ASPIRIN 325 MG ENTERIC COATED TABLET (FP) PO SCH (14:07)
[2019-01-18] MEDS: LISINOPRIL 10 MG TABLET (FP) PO SCH (14:07)
[2019-01-18] MEDS: LACTATED RINGERS SOLUTION 1,000 ML IV SCH (15:56)
--- NOTE | 2019-01-18 16:38 | FALL ---
Fall Exam - Event Witnessed fall: No Fall from: Wheel Chair - Pre-Fall Mental Status: Alert Current Medications: Current Medications Generic Name Dose Route Start Last Admin Trade Name Freq PRN Reason Stop Dose Admin Al Hydroxide/Mg Hydroxide 30 ml 01/14/19 14:35 Mylanta Oral Suspension - PO Q6HPO PRN DYSPEPSIA Amino Acids 30 ml 01/14/19 17:30 01/18/19 11:03 Prosource No Carb Liquid Pkt PO Not Given BID@0800,1730 ELKE Aspirin 325 mg 01/15/19 10:00 01/18/19 14:07 Ecotrin - PO 325 mg DAILY [facility]KE Administration Cyclobenzaprine HCl 5 mg 01/15/19 10:00 01/18/19 14:06 Cyclobenzaprine Hcl PO 5 mg DAILY [facility] Administration Diazepam 5 mg 01/18/19 00:46 01/18/19 00:49 Valium - PO 5 mg HS PRN Administration ANXIETY Diphenhydramine HCl 25 mg 01/14/19 14:35 01/17/19 23:21 Benadryl - PO 25 mg HS PRN Administration INSOMNIA Docusate Sodium 100 mg 01/14/19 22:00 01/18/19 14:07 Colace - PO 100 mg TID ELKE Administration Duloxetine HCl 30 mg 01/14/19 22:00 01/18/19 14:07 Cymbalta - PO 30 mg BID [facility]KE Administration Enoxaparin Sodium 40 mg 01/15/19 10:00 01/18/19 11:05 Lovenox - SQ Not Given DAILY [facility] Ferrous Sulfate 325 mg 01/14/19 17:30 01/18/19 11:03 Feosol - PO Not Given BIDWM [facility] Daptomycin 500 mg/ Sodium 50 mls @ 100 mls/hr 01/15/19 10:00 01/18/19 11:04 Chloride IVPB 100 mls/hr DAILY [facility]KE Administration Protocol Ertapenem 1 gm/ Sodium 50 mls @ 100 mls/hr 01/15/19 10:00 01/18/19 11:05 Chloride IVPB 100 mls/hr DAILY [facility] Administration Lactated Ringer's 1,000 mls @ 125 mls/hr 01/14/19 14:35 01/18/19 15:56 Lactated Ringers Solution IV Not Given ASDIR ELKE Lisinopril 10 mg 01/15/19 10:00 01/18/19 14:07 Prinivil PO 10 mg DAILY [facility]KE Administration Ondansetron HCl 4 mg 01/14/19 14:35 Zofran Injection IVPUSH Q6H PRN NAUSEA AND/OR VOMITING Oxybutynin Chloride 5 mg 01/14/19 22:00 01/18/19 14:07 Ditropan - PO 5 mg TID ELKE Administration Oxycodone HCl 80 mg 01/14/19 22:00 01/18/19 10:00 Oxycontin - PO Not Given BID [facility] Oxycodone HCl 30 mg 01/17/19 14:48 01/18/19 14:05 Roxicodone - PO 30 mg Q4H PRN Administration PAIN LEVEL 7 - 10 Pantoprazole Sodium 40 mg 01/15/19 10:00 01/18/19 14:06 Protonix - PO 40 mg DAILY [facility] Administration Polyethylene Glycol 17 gm 01/15/19 10:00 01/18/19 11:05 Miralax (For Daily Use) - PO Not Given DAILY [facility] Pregabalin 100 mg 01/14/19 22:00 01/18/19 15:56 Lyrica - PO Not Given TID [facility] Promethazine HCl 12.5 mg 01/14/19 14:35 Phenergan Injection - IVPB Q6H PRN NAUSEA-FOR RESCUE AFTER 15 MIN Senna 1 tab 01/14/19 22:00 01/18/19 11:06 Senna - PO Not Given BID [facility]KE Senna 2 tab 01/14/19 14:35 Senna - PO HS PRN CONSTIPATION Simethicone 40 mg 01/14/19 14:35 Mylicon Liquid - PO Q6H PRN INDIGESTION - Post-Fall Patient Outcome: No Injury Treatment: None Vital Signs: Vital Signs Temperature 98.1 F 01/18/19 15:21 Pulse Rate 121 H 01/18/19 15:21 Respiratory Rate 18 01/18/19 15:21 Blood Pressure 150/86 01/18/19 15:21 O2 Sat by Pulse Oximetry (%) 98 01/18/19 10:00 LOC Post-Fall: Unchanged Identify factors for HIGH RISK for Head Injury: None of the above Critical Care Total Critical Care Time (in minutes): 45 Critical Care Statement: The care of this patient involved high complexity decision making to prevent further life threatening deterioration of the patient 's condition and/or to evaluate & treat vital organ system(s) failure or risk of failure.
[2019-01-19] MEDS: oxyCODONE HCL 5 MG TABLET PO PRN ×5 (02:27→20:08)
[2019-01-19] MEDS: PREGABALIN 100 MG CAPSULE PO SCH ×3 (06:07→22:43)
[2019-01-19] MEDS: DOCUSATE SODIUM 100 MG CAPSULE (FP) PO SCH ×3 (06:07→21:00)
[2019-01-19] MEDS: OXYBUTYNIN CHLORIDE 5 MG TABLET PO SCH ×3 (06:07→21:00)
--- NOTE | 2019-01-19 08:37 | PN ---
Physical Exam: SUBJECTIVE: Patient seen and examined at the bedside. sitting up, eating breakfast. OBJECTIVE: patient fell twice yesterday, was called to see her and found her in the bathroom when she slipped again out of her WC. she refused fall workup, no visible injuries noted. she refused head ct Vital Signs Period Temp Pulse Resp BP Sys/Vargas Pulse Ox Last 24 Hr 98.0 F-98.3 F 95-132 16-19 105-150/48-86 98-98 GENERAL: awake, alert, in no acute distress HEAD: Normal with no signs of trauma. EYES: Pupils equal, round and reactive to light, EARS, NOSE, THROAT: Ears normal, nares patent, oropharynx clear without exudates. Moist mucous membranes. NECK: Normal range of motion, supple without lymphadenopathy, JVD, or masses. LUNGS: diminished bilaterally ABDOMEN: Soft, nontender, not distended, normoactive bowel sounds, no guarding, MUSCULOSKELETAL: Normal range of motion at all joints. No bony deformities or tenderness. No CVA tenderness. UPPER EXTREMITIES: No peripheral edema. LOWER EXTREMITIES: left wound vac, bilateral lower ext trace edema. no dvt on doppler NEUROLOGICAL:normal speech SKIN: left hip chronic wound s/p washout 01/14 Laboratory Results - last 24 hr 01/18/19 01/18/19 09:43 09:43 WBC 8.5 RBC 4.27 Hgb 10.4 L Hct 33.1 MCV 77.5 L MCH 24.3 L MCHC 31.3 L RDW 20.6 H Plt Count 316 D MPV 7.2 L Absolute Neuts (auto) 5.3 Neutrophils % 62.9 Lymphocytes % 14.2 Monocytes % 5.2 Eosinophils % 16.7 H Basophils % 1.0 Nucleated RBC % 0 Sodium 140 Potassium 4.1 Chloride 112 H Carbon Dioxide 22 Anion Gap 6 L BUN 16 Creatinine 0.7 Creat Clearance w eGFR 84.51 Random Glucose 99 Calcium 8.8 Magnesium 1.9 Total Bilirubin 0.2 AST 14 L ALT 17 Alkaline Phosphatase 213 H Total Protein 7.0 Albumin 2.8 L Active Medications Generic Name Dose Route Start Last Admin Trade Name Freq PRN Reason Stop Dose Admin Al Hydroxide/Mg Hydroxide 30 ml 01/14/19 14:35 Mylanta Oral Suspension - PO Q6HPO PRN DYSPEPSIA Amino Acids 30 ml 01/14/19 17:30 01/18/19 18:17 Prosource No Carb Liquid Pkt PO 30 ml BID@0800,1730 ELKE Administration Aspirin 325 mg 01/15/19 10:00 01/18/19 14:07 Ecotrin - PO 325 mg DAILY [facility] Administration Cyclobenzaprine HCl 5 mg 01/15/19 10:00 01/18/19 14:06 Cyclobenzaprine Hcl PO 5 mg DAILY [facility] Administration Diazepam 5 mg 01/18/19 00:46 01/18/19 00:49 Valium - PO 5 mg HS PRN Administration ANXIETY Diphenhydramine HCl 25 mg 01/14/19 14:35 01/17/19 23:21 Benadryl - PO 25 mg HS PRN Administration INSOMNIA Docusate Sodium 100 mg 01/14/19 22:00 01/19/19 06:07 Colace - PO 100 mg TID [facility]KE Administration Duloxetine HCl 30 mg 01/14/19 22:00 01/18/19 23:25 Cymbalta - PO Not Given BID [facility] Enoxaparin Sodium 40 mg 01/15/19 10:00 01/18/19 11:05 Lovenox - SQ Not Given DAILY [facility] Ferrous Sulfate 325 mg 01/14/19 17:30 01/18/19 18:17 Feosol - PO 325 mg BIDWM [facility] Administration Daptomycin 500 mg/ Sodium 50 mls @ 100 mls/hr 01/15/19 10:00 01/18/19 11:04 Chloride IVPB 100 mls/hr DAILY [facility] Administration Protocol Ertapenem 1 gm/ Sodium 50 mls @ 100 mls/hr 01/15/19 10:00 01/18/19 11:05 Chloride IVPB 100 mls/hr DAILY [facility] Administration Lactated Ringer's 1,000 mls @ 125 mls/hr 01/14/19 14:35 01/18/19 15:56 Lactated Ringers Solution IV Not Given ASDIR ELKE Lisinopril 10 mg 01/15/19 10:00 01/18/19 14:07 Prinivil PO 10 mg DAILY [facility] Administration Ondansetron HCl 4 mg 01/14/19 14:35 Zofran Injection IVPUSH Q6H PRN NAUSEA AND/OR VOMITING Oxybutynin Chloride 5 mg 01/14/19 22:00 01/19/19 06:07 Ditropan - PO 5 mg TID ELKE Administration Oxycodone HCl 80 mg 01/14/19 22:00 01/18/19 23:25 Oxycontin - PO Not Given BID [facility] Oxycodone HCl 30 mg 01/17/19 14:48 01/19/19 06:52 Roxicodone - PO 30 mg Q4H PRN Administration PAIN LEVEL 7 - 10 Pantoprazole Sodium 40 mg 01/15/19 10:00 01/18/19 14:06 Protonix - PO 40 mg DAILY [facility]KE Administration Polyethylene Glycol 17 gm 01/15/19 10:00 01/18/19 11:05 Miralax (For Daily Use) - PO Not Given DAILY [facility] Pregabalin 100 mg 01/14/19 22:00 01/19/19 06:07 Lyrica - PO 100 mg TID [facility] Administration Promethazine HCl 12.5 mg 01/14/19 14:35 Phenergan Injection - IVPB Q6H PRN NAUSEA-FOR RESCUE AFTER 15 MIN Senna 1 tab 01/14/19 22:00 01/18/19 23:27 Senna - PO Not Given BID [facility] Senna 2 tab 01/14/19 14:35 Senna - PO HS PRN CONSTIPATION Simethicone 40 mg 01/14/19 14:35 Mylicon Liquid - PO Q6H PRN INDIGESTION ASSESSMENT/PLAN: Patient is a 63 year old female with a significant past medical history of hypertension, anxiety, depression, chronic pain and chronic left hip left wound. who has undergone left hip debridement of soft tissue, muscle, bone, VAC application, multiple I and D wound washes, s/p osteotomy left femur, removal of hardware (explant femoral component), I&D left hip wound; hardware removed by surgery. Patients presents to the OR s/p left wound washout today. Surgery: s/p left wound washout/vac placement on 01/14 Follow up care per surgery team. On Daptomycin 500mg daily and Ertapenem 1 gram daily as per ID for minimum 8 weeks (started on 12/14/18, will need 8 weeks total ) via tunneled catheter placed at [facility] on 12/19/18. hypertension: controlled on lisinopril 10mg daily Depression, chronic. Continue Cymbalta and Valium as needed. Anemia. monitor with daily labs. continue PO Iron therapy. Urinary incontinence: Continue oxybutynin. no retention of urine. Severe Malnutrition: On a regular diet, on Prosource BID. On Ensure pudding daily and magic cup daily Falls: multiple falls at home and during hospital stay. no visible injury. will benefit from rehab. fall risk precautions. Opioid dependence: continue oxy 30 q4 and oxycontin 80bid. with close monitoring of mental status. Dispo: requires inpatient admission. discharge once cleared by surgery. Visit type - Emergency Visit Emergency Visit: Yes ED Registration Date: 01/12/19 Care time: The patient presented to the Emergency Department on the above date and was hospitalized for further evaluation of their emergent condition. - New Patient This patient is new to me today: No - Critical Care Critical Care patient: No - Discharge Referral Referred to [facility] No
[2019-01-19] MEDS ORDERED: PT OWN MED DRAWER 7, Y5N ONE ×3 (09:22→20:03)
[2019-01-19] MEDS: ASPIRIN 325 MG ENTERIC COATED TABLET (FP) PO SCH (09:55)
[2019-01-19] MEDS: DULoxetine HCL 30 MG CAPSULE.DR (FP) PO SCH ×2 (09:56→21:00)
[2019-01-19] MEDS: SENNOSIDES 8.6MG TABLET (FP) PO SCH ×2 (09:56→21:00)
[2019-01-19] MEDS: oxyCODONE HCL 40 MG SUSTAINED ACTING TABLET PO SCH ×2 (09:56→22:43)
[2019-01-19] MEDS: LISINOPRIL 10 MG TABLET (FP) PO SCH (09:56)
[2019-01-19] MEDS: FERROUS SO4 325 MG TABLET (FP) PO SCH ×2 (09:56→16:51)
[2019-01-19] MEDS: PANTOPRAZOLE 40 MG TABLET (FP) PO SCH (09:56)
[2019-01-19] MEDS: DAPTOMYCIN 500 MG in SODIUM CHLORIDE 50 ML IVPB SCH (09:58)
[2019-01-19] MEDS: AMINO ACIDS/PROTEIN HYDROLYS 30 ML LIQUID.PKT PO SCH ×2 (09:58→16:51)
[2019-01-19] MEDS: ERTAPENEM SODIUM 1 GM in SODIUM CHLORIDE 50 ML IVPB SCH (09:58)
[2019-01-19] MEDS: ENOXAPARIN NA (PORCINE) 40 MG/0.4 ML DISP.SYRIN SQ SCH (10:43)
[2019-01-19] MEDS: POLYETHYLENE GLYCOL 3350 119 GM BTL PO SCH (10:44)
[2019-01-19 11:25] LABS: BASO % 0.6 % (0-2.0); EOS % 14.2 % (0-4.5); HEMATOCRIT 31.6 % (32.4-45.2); HEMOGLOBIN 9.9 GM/dL (10.7-15.3); LYMPH % 15.9 % (8-40); MCH 24.4 pg (25.7-33.7); MCHC 31.4 g/dl (32.0-36.0); MEAN CELL VOLUME 77.8 fl (80-96); MEAN PLT VOLUME 7.4 fl (7.5-11.1); MONO % 4.5 % (3.8-10.2); NEUT % 64.8 % (42.8-82.8); PLATELET COUNT 338 K/MM3 (134-434); RBC 4.06 M/mm3 (3.60-5.2); WHITE BLOOD COUNT 8.3 K/mm3 (4.0-10.0)
[2019-01-19] MEDS: CYCLOBENZAPRINE HCL 5 MG TABLET PO SCH (11:32)
[2019-01-19 11:49] LABS: ALBUMIN 2.7 g/dl (3.4-5.0); ALK PHOS 188 U/L (45-117); ANION GAP 6 MMOL/L (8-16); BILIRUBIN,TOTAL 0.2 mg/dL (0.2-1); BLOOD UREA NITROGEN 15 mg/dL (7-18); CALCIUM 8.4 mg/dL (8.5-10.1); CHLORIDE 112 mmol/L (98-107); CO2 26 mmol/L (21-32); CREATININE 0.7 mg/dL (0.55-1.3); GLUCOSE,RANDOM 93 mg/dL (74-106); SGOT/AST 12 U/L (15-37); SGPT/ALT 14 U/L (13-61); SODIUM 144 mmol/L (136-145); TOT PROT 6.4 g/dl (6.4-8.2)
[2019-01-19] MEDS: LACTATED RINGERS SOLUTION 1,000 ML IV SCH (15:13)
[2019-01-19] MEDS: MICONAZOLE NITRATE 2% VAGINAL CREAM 45 GM TUBE VG SCH ×2 (16:00→21:00)
[2019-01-19] MEDS: MICONAZOLE NITRATE 14 GM/TUBE TUBE TP SCH (21:00)
[2019-01-19] MEDS: diazePAM 5 MG TABLET PO PRN (22:43)
[2019-01-20] MEDS: oxyCODONE HCL 5 MG TABLET PO PRN ×5 (02:06→20:49)
[2019-01-20] MEDS: OXYBUTYNIN CHLORIDE 5 MG TABLET PO SCH ×3 (05:06→21:28)
[2019-01-20] MEDS: PREGABALIN 100 MG CAPSULE PO SCH ×3 (05:06→21:28)
[2019-01-20] MEDS: DOCUSATE SODIUM 100 MG CAPSULE (FP) PO SCH ×3 (05:06→21:29)
[2019-01-20 07:49] LABS: ALBUMIN 2.8 g/dl (3.4-5.0); ALK PHOS 190 U/L (45-117); ANION GAP 8 MMOL/L (8-16); BILIRUBIN,TOTAL 0.3 mg/dL (0.2-1); BLOOD UREA NITROGEN 15 mg/dL (7-18); CALCIUM 8.6 mg/dL (8.5-10.1); CHLORIDE 110 mmol/L (98-107); CO2 25 mmol/L (21-32); CREATININE 0.7 mg/dL (0.55-1.3); GLUCOSE,RANDOM 102 mg/dL (74-106); SGOT/AST 13 U/L (15-37); SGPT/ALT 14 U/L (13-61); SODIUM 142 mmol/L (136-145); TOT PROT 6.7 g/dl (6.4-8.2)
[2019-01-20 07:53] LABS: HEMATOCRIT 31.6 % (32.4-45.2); HEMOGLOBIN 10.2 GM/dL (10.7-15.3); MCH 24.9 pg (25.7-33.7); MCHC 32.4 g/dl (32.0-36.0); MEAN CELL VOLUME 76.7 fl (80-96); MEAN PLT VOLUME 7.5 fl (7.5-11.1); PLATELET COUNT 361 K/MM3 (134-434); RBC 4.11 M/mm3 (3.60-5.2); RDW 20.9 % (11.6-15.6); WHITE BLOOD COUNT 8.7 K/mm3 (4.0-10.0)
[2019-01-20] MEDS ORDERED: PT OWN MED DRAWER 7, Y5N ONE (09:16)
[2019-01-20] MEDS: AMINO ACIDS/PROTEIN HYDROLYS 30 ML LIQUID.PKT PO SCH ×2 (09:31→16:31)
[2019-01-20] MEDS: FERROUS SO4 325 MG TABLET (FP) PO SCH ×2 (09:31→16:30)
[2019-01-20] MEDS: LISINOPRIL 10 MG TABLET (FP) PO SCH (09:32)
--- NOTE | 2019-01-20 09:32 | PN ---
Physical Exam: SUBJECTIVE: Patient seen and examined at the bedside. having right wrist and forearm pain/discomfort s/p fall on 01/18/19 will xray. OBJECTIVE: xray right wrist and forearm had fallen 01/18, refused imaging post fall, now having right wrist and right forearm pain. Vital Signs Period Temp Pulse Resp BP Sys/Vargas Pulse Ox Last 24 Hr 97.8 F-98.2 F 105-120 16-20 110-127/58-85 98-98 GENERAL: awake, alert, in no acute distress HEAD: Normal with no signs of trauma. EYES: Pupils equal, round and reactive to light, EARS, NOSE, THROAT: Ears normal, nares patent, oropharynx clear without exudates. Moist mucous membranes. NECK: Normal range of motion, supple without lymphadenopathy, JVD, or masses. LUNGS: diminished bilaterally ABDOMEN: Soft, nontender, not distended, normoactive bowel sounds, no guarding, MUSCULOSKELETAL: Normal range of motion at all joints. No bony deformities or tenderness. No CVA tenderness. UPPER EXTREMITIES: limited ROM of right upper arm, wrist pain. will xray LOWER EXTREMITIES: left wound vac, bilateral lower ext trace edema. no dvt on doppler NEUROLOGICAL:normal speech SKIN: left hip chronic wound s/p washout 01/14 Laboratory Results - last 24 hr 01/17/19 01/19/19 01/19/19 07:10 10:50 10:50 WBC 8.3 RBC 4.06 Hgb 9.9 L Hct 31.6 L MCV 77.8 L MCH 24.4 L MCHC 31.4 L RDW 21.0 H Plt Count 338 MPV 7.4 L Absolute Neuts (auto) 5.4 Neutrophils % 64.8 Lymphocytes % 15.9 Monocytes % 4.5 Eosinophils % 14.2 H Basophils % 0.6 Nucleated RBC % 0 Sodium 144 Potassium 4.0 Chloride 112 H Carbon Dioxide 26 Anion Gap 6 L BUN 15 Creatinine 0.7 Creat Clearance w eGFR 84.51 Random Glucose 93 Calcium 8.4 L Total Bilirubin 0.2 AST 12 L ALT 14 Alkaline Phosphatase 188 H Total Protein 6.4 Albumin 2.7 L Procalcitonin 0.08 01/20/19 01/20/19 05:50 05:50 WBC 8.7 RBC 4.11 Hgb 10.2 L Hct 31.6 L MCV 76.7 L MCH 24.9 L MCHC 32.4 RDW 20.9 H Plt Count 361 MPV 7.5 Absolute Neuts (auto) Neutrophils % Lymphocytes % Monocytes % Eosinophils % Basophils % Nucleated RBC % Sodium 142 Potassium 4.0 Chloride 110 H Carbon Dioxide 25 Anion Gap 8 BUN 15 Creatinine 0.7 Creat Clearance w eGFR 84.51 Random Glucose 102 Calcium 8.6 Total Bilirubin 0.3 AST 13 L ALT 14 Alkaline Phosphatase 190 H Total Protein 6.7 Albumin 2.8 L Procalcitonin Active Medications Generic Name Dose Route Start Last Admin Trade Name Freq PRN Reason Stop Dose Admin Al Hydroxide/Mg Hydroxide 30 ml 01/14/19 14:35 Mylanta Oral Suspension - PO Q6HPO PRN DYSPEPSIA Amino Acids 30 ml 01/14/19 17:30 01/19/19 16:51 Prosource No Carb Liquid Pkt PO 30 ml BID@0800,1730 ELKE Administration Aspirin 325 mg 01/15/19 10:00 01/19/19 09:55 Ecotrin - PO 325 mg DAILY ELKE Administration Cyclobenzaprine HCl 5 mg 01/15/19 10:00 01/19/19 11:32 Cyclobenzaprine Hcl PO 5 mg DAILY ELKE Administration Diazepam 5 mg 01/18/19 00:46 01/19/19 22:43 Valium - PO 5 mg HS PRN Administration ANXIETY Diphenhydramine HCl 25 mg 01/14/19 14:35 01/17/19 23:21 Benadryl - PO 25 mg HS PRN Administration INSOMNIA Docusate Sodium 100 mg 01/14/19 22:00 01/20/19 05:06 Colace - PO 100 mg TID ELKE Administration Duloxetine HCl 30 mg 01/14/19 22:00 01/19/19 21:00 Cymbalta - PO 30 mg BID ELKE Administration Enoxaparin Sodium 40 mg 01/15/19 10:00 01/19/19 10:43 Lovenox - SQ Not Given DAILY [facility]KE Ferrous Sulfate 325 mg 01/14/19 17:30 01/19/19 16:51 Feosol - PO 325 mg BIDWM [facility]KE Administration Daptomycin 500 mg/ Sodium 50 mls @ 100 mls/hr 01/15/19 10:00 01/19/19 09:58 Chloride IVPB 100 mls/hr DAILY ELKE Administration Protocol Ertapenem 1 gm/ Sodium 50 mls @ 100 mls/hr 01/15/19 10:00 01/19/19 09:58 Chloride IVPB 100 mls/hr DAILY [facility]KE Administration Lisinopril 10 mg 01/15/19 10:00 01/19/19 09:56 Prinivil PO 10 mg DAILY [facility]KE Administration Miconazole Nitrate 1 applic 01/19/19 14:31 01/19/19 21:00 Monistat-7 Vaginal Cream - VG 01/24/19 22:01 1 applic HS ELKE Administration Miconazole Nitrate 1 applic 01/19/19 22:00 01/19/19 21:00 Monistat Topical Cream - TP 1 applic BID ELKE Administration Ondansetron HCl 4 mg 01/14/19 14:35 Zofran Injection IVPUSH Q6H PRN NAUSEA AND/OR VOMITING Oxybutynin Chloride 5 mg 01/14/19 22:00 01/20/19 05:06 Ditropan - PO 5 mg TID ELKE Administration Oxycodone HCl 80 mg 01/14/19 22:00 01/19/19 22:43 Oxycontin - PO 80 mg BID ELKE Administration Oxycodone HCl 30 mg 01/17/19 14:48 01/20/19 06:41 Roxicodone - PO 30 mg Q4H PRN Administration PAIN LEVEL 7 - 10 Pantoprazole Sodium 40 mg 01/15/19 10:00 01/19/19 09:56 Protonix - PO 40 mg DAILY ELKE Administration Polyethylene Glycol 17 gm 01/15/19 10:00 01/19/19 10:44 Miralax (For Daily Use) - PO Not Given DAILY [facility] Pregabalin 100 mg 01/14/19 22:00 01/20/19 05:06 Lyrica - PO 100 mg TID ELKE Administration Promethazine HCl 12.5 mg 01/14/19 14:35 Phenergan Injection - IVPB Q6H PRN NAUSEA-FOR RESCUE AFTER 15 MIN Senna 1 tab 01/14/19 22:00 01/19/19 21:00 Senna - PO 1 tab BID ELKE Administration Senna 2 tab 01/14/19 14:35 Senna - PO HS PRN CONSTIPATION Simethicone 40 mg 01/14/19 14:35 Mylicon Liquid - PO Q6H PRN INDIGESTION ASSESSMENT/PLAN: Patient is a 63 year old female with a significant past medical history of hypertension, anxiety, depression, chronic pain and chronic left hip left wound. who has undergone left hip debridement of soft tissue, muscle, bone, VAC application, multiple I and D wound washes, s/p osteotomy left femur, removal of hardware (explant femoral component), I&D left hip wound; hardware removed by surgery. Patients presents to the OR s/p left wound washout today. Surgery: s/p left wound washout/vac placement on 01/14 Follow up care per surgery team. On Daptomycin 500mg daily and Ertapenem 1 gram daily as per ID for minimum 8 weeks (started on 12/14/18, will need 8 weeks total ) via tunneled catheter placed at [facility] on 12/19/18. hypertension: controlled on lisinopril 10mg daily Depression, chronic. Continue Cymbalta and Valium as needed. Anemia. monitor with daily labs. continue PO Iron therapy. Urinary incontinence: Continue oxybutynin. no retention of urine. Severe Malnutrition: On a regular diet, on Prosource BID. On Ensure pudding daily and magic cup daily. Falls: multiple falls at home and during hospital stay. no visible injury. but now having right forearm and right wrist pain/discomfort. will xray to rule out fracture. maintain fall precautions. Opioid dependence: continue oxy 30 q4 and oxycontin 80bid. with close monitoring of mental status. Dispo: requires inpatient admission. discharge once cleared by surgery. Visit type - Emergency Visit Emergency Visit: Yes ED Registration Date: 01/12/19 Care time: The patient presented to the Emergency Department on the above date and was hospitalized for further evaluation of their emergent condition. - New Patient This patient is new to me today: No - Critical Care Critical Care patient: No - Discharge Referral Referred to [facility] No
[2019-01-20] MEDS: PANTOPRAZOLE 40 MG TABLET (FP) PO SCH (09:33)
[2019-01-20] MEDS: ASPIRIN 325 MG ENTERIC COATED TABLET (FP) PO SCH (09:33)
[2019-01-20] MEDS: CYCLOBENZAPRINE HCL 5 MG TABLET PO SCH (09:33)
[2019-01-20] MEDS: DULoxetine HCL 30 MG CAPSULE.DR (FP) PO SCH ×2 (09:33→21:02)
[2019-01-20] MEDS: ENOXAPARIN NA (PORCINE) 40 MG/0.4 ML DISP.SYRIN SQ SCH (09:34)
[2019-01-20] MEDS: SENNOSIDES 8.6MG TABLET (FP) PO SCH ×2 (09:34→21:02)
[2019-01-20] MEDS: oxyCODONE HCL 40 MG SUSTAINED ACTING TABLET PO SCH ×2 (09:34→23:01)
[2019-01-20] MEDS: DAPTOMYCIN 500 MG in SODIUM CHLORIDE 50 ML IVPB SCH (09:37)
[2019-01-20] MEDS: ERTAPENEM SODIUM 1 GM in SODIUM CHLORIDE 50 ML IVPB SCH (10:56)
[2019-01-20] MEDS: POLYETHYLENE GLYCOL 3350 119 GM BTL PO SCH (10:56)
[2019-01-20] MEDS: MICONAZOLE NITRATE 14 GM/TUBE TUBE TP SCH ×2 (10:58→21:29)
[2019-01-20] MEDS: MICONAZOLE NITRATE 2% VAGINAL CREAM 45 GM TUBE VG SCH (21:29)
[2019-01-20] MEDS: diazePAM 5 MG TABLET PO PRN (23:02)
[2019-01-20] MEDS: diphenhydrAMINE HCL 25 MG CAPSULE (FP) PO PRN (23:02)
[2019-01-21] MEDS: DOCUSATE SODIUM 100 MG CAPSULE (FP) PO SCH ×3 (05:46→22:03)
[2019-01-21] MEDS: OXYBUTYNIN CHLORIDE 5 MG TABLET PO SCH ×3 (05:47→22:03)
[2019-01-21] MEDS: PREGABALIN 100 MG CAPSULE PO SCH ×3 (05:48→21:56)
[2019-01-21] MEDS: oxyCODONE HCL 5 MG TABLET PO PRN ×3 (05:48→21:56)
[2019-01-21 06:26] LABS: BASO % 0.8 % (0-2.0); HEMATOCRIT 30.2 % (32.4-45.2); HEMOGLOBIN 9.8 GM/dL (10.7-15.3); LYMPH % 19.2 % (8-40); MCH 24.9 pg (25.7-33.7); MCHC 32.4 g/dl (32.0-36.0); MEAN CELL VOLUME 76.9 fl (80-96); MEAN PLT VOLUME 7.2 fl (7.5-11.1); MONO % 5.7 % (3.8-10.2); NEUT % 58.3 % (42.8-82.8); PLATELET COUNT 335 K/MM3 (134-434); RBC 3.93 M/mm3 (3.60-5.2); RDW 20.8 % (11.6-15.6)
[2019-01-21 06:46] LABS: ALBUMIN 2.5 g/dl (3.4-5.0); ALK PHOS 179 U/L (45-117); ANION GAP 6 MMOL/L (8-16); BILIRUBIN,TOTAL < 0.1 mg/dL (0.2-1); BLOOD UREA NITROGEN 16 mg/dL (7-18); CALCIUM 8.3 mg/dL (8.5-10.1); CHLORIDE 112 mmol/L (98-107); CO2 24 mmol/L (21-32); CREATININE 0.6 mg/dL (0.55-1.3); GLUCOSE,RANDOM 100 mg/dL (74-106); MAGNESIUM 1.9 mg/dL (1.8-2.4); SGOT/AST 11 U/L (15-37); SGPT/ALT 14 U/L (13-61); SODIUM 142 mmol/L (136-145); TOT PROT 6.3 g/dl (6.4-8.2)
--- NOTE | 2019-01-21 09:13 | PN ---
Physical Exam: SUBJECTIVE: Patient seen and examined at the bedside. in no acute distress. feels well, arm pain better. OBJECTIVE: for possible washout out today with Dr. Moya Vital Signs Period Temp Pulse Resp BP Sys/Vargas Pulse Ox Last 24 Hr 97.5 F-97.9 F 97-103 16-20 110-154/57-69 97 GENERAL: awake, alert, in no acute distress HEAD: Normal with no signs of trauma. EYES: Pupils equal, round and reactive to light, EARS, NOSE, THROAT: Ears normal, nares patent, oropharynx clear without exudates. Moist mucous membranes. NECK: Normal range of motion, supple without lymphadenopathy, JVD, or masses. LUNGS: diminished bilaterally ABDOMEN: Soft, nontender, not distended, normoactive bowel sounds, no guarding, MUSCULOSKELETAL: Normal range of motion at all joints. No bony deformities or tenderness. No CVA tenderness. UPPER EXTREMITIES: limited ROM of right upper arm, wrist pain. will xray LOWER EXTREMITIES: left wound vac, bilateral lower ext trace edema. no dvt on doppler NEUROLOGICAL:normal speech SKIN: left hip chronic wound s/p washout with wound vac. Laboratory Results - last 24 hr 01/21/19 01/21/19 05:30 05:30 WBC 7.0 RBC 3.93 Hgb 9.8 L Hct 30.2 L MCV 76.9 L MCH 24.9 L MCHC 32.4 RDW 20.8 H Plt Count 335 MPV 7.2 L Absolute Neuts (auto) 4.1 Neutrophils % 58.3 Lymphocytes % 19.2 D Monocytes % 5.7 Eosinophils % 16.0 H Basophils % 0.8 Nucleated RBC % 0 Sodium 142 Potassium 4.0 Chloride 112 H Carbon Dioxide 24 Anion Gap 6 L BUN 16 Creatinine 0.6 Creat Clearance w eGFR 100.97 Random Glucose 100 Calcium 8.3 L Magnesium 1.9 Total Bilirubin < 0.1 L AST 11 L ALT 14 Alkaline Phosphatase 179 H Total Protein 6.3 L Albumin 2.5 L Active Medications Generic Name Dose Route Start Last Admin Trade Name Freq PRN Reason Stop Dose Admin Al Hydroxide/Mg Hydroxide 30 ml 01/14/19 14:35 Mylanta Oral Suspension - PO Q6HPO PRN DYSPEPSIA Amino Acids 30 ml 01/14/19 17:30 01/20/19 16:31 Prosource No Carb Liquid Pkt PO 30 ml BID@0800,1730 [facility] Administration Aspirin 325 mg 01/15/19 10:00 01/20/19 09:33 Ecotrin - PO 325 mg DAILY [facility] Administration Cyclobenzaprine HCl 5 mg 01/15/19 10:00 01/20/19 09:33 Cyclobenzaprine Hcl PO 5 mg DAILY [facility] Administration Diazepam 5 mg 01/18/19 00:46 01/20/19 23:02 Valium - PO 5 mg HS PRN Administration ANXIETY Diphenhydramine HCl 25 mg 01/14/19 14:35 01/20/19 23:02 Benadryl - PO 25 mg HS PRN Administration INSOMNIA Docusate Sodium 100 mg 01/14/19 22:00 01/21/19 05:46 Colace - PO Not Given TID [facility] Duloxetine HCl 30 mg 01/14/19 22:00 01/20/19 21:02 Cymbalta - PO 30 mg BID [facility]KE Administration Enoxaparin Sodium 40 mg 01/15/19 10:00 01/20/19 09:34 Lovenox - SQ Not Given DAILY [facility] Ferrous Sulfate 325 mg 01/14/19 17:30 01/20/19 16:30 Feosol - PO 325 mg BIDWM [facility] Administration Daptomycin 500 mg/ Sodium 50 mls @ 100 mls/hr 01/15/19 10:00 01/20/19 09:37 Chloride IVPB 100 mls/hr DAILY [facility] Administration Protocol Ertapenem 1 gm/ Sodium 50 mls @ 100 mls/hr 01/15/19 10:00 01/20/19 10:56 Chloride IVPB 100 mls/hr DAILY [facility] Administration Lisinopril 10 mg 01/15/19 10:00 01/20/19 09:32 Prinivil PO 10 mg DAILY [facility] Administration Miconazole Nitrate 1 applic 01/19/19 14:31 01/20/19 21:29 Monistat-7 Vaginal Cream - VG 01/24/19 22:01 1 applic HS [facility] Administration Miconazole Nitrate 1 applic 01/19/19 22:00 01/20/19 21:29 Monistat Topical Cream - TP 1 applic BID [facility] Administration Ondansetron HCl 4 mg 01/14/19 14:35 Zofran Injection IVPUSH Q6H PRN NAUSEA AND/OR VOMITING Oxybutynin Chloride 5 mg 01/14/19 22:00 01/21/19 05:47 Ditropan - PO 5 mg TID [facility] Administration Oxycodone HCl 80 mg 01/14/19 22:00 01/20/19 23:01 Oxycontin - PO 80 mg BID [facility] Administration Oxycodone HCl 30 mg 01/17/19 14:48 01/21/19 05:48 Roxicodone - PO 30 mg Q4H PRN Administration PAIN LEVEL 7 - 10 Pantoprazole Sodium 40 mg 01/15/19 10:00 01/20/19 09:33 Protonix - PO 40 mg DAILY [facility] Administration Polyethylene Glycol 17 gm 01/15/19 10:00 01/20/19 10:56 Miralax (For Daily Use) - PO Not Given DAILY [facility] Pregabalin 100 mg 01/14/19 22:00 01/21/19 05:48 Lyrica - PO 100 mg TID [facility] Administration Promethazine HCl 12.5 mg 01/14/19 14:35 Phenergan Injection - IVPB Q6H PRN NAUSEA-FOR RESCUE AFTER 15 MIN Senna 1 tab 01/14/19 22:00 01/20/19 21:02 Senna - PO 1 tab BID [facility] Administration Senna 2 tab 01/14/19 14:35 Senna - PO HS PRN CONSTIPATION Simethicone 40 mg 01/14/19 14:35 Mylicon Liquid - PO Q6H PRN INDIGESTION ASSESSMENT/PLAN: Patient is a 63 year old female with a significant past medical history of hypertension, anxiety, depression, chronic pain and chronic left hip left wound. who has undergone left hip debridement of soft tissue, muscle, bone, VAC application, multiple I and D wound washes, s/p osteotomy left femur, removal of hardware (explant femoral component), I&D left hip wound; hardware removed by surgery. Surgery: s/p left wound washout/vac placement on 01/14. Possible washout today. will be NPO. Follow up care per surgery team. On Daptomycin 500mg daily and Ertapenem 1 gram daily as per ID for minimum 8 weeks (started on 12/14/18, will need 8 weeks total ) via tunneled catheter placed at [facility] on 12/19/18. hypertension: controlled on lisinopril 10mg daily Depression, chronic. Continue Cymbalta and Valium as needed. Anemia. monitor with daily labs. continue PO Iron therapy. Urinary incontinence: Continue oxybutynin. no retention of urine. Severe Malnutrition: On a regular diet, on Prosource BID. On Ensure pudding daily and magic cup daily. Falls: multiple falls at home and during hospital stay. no visible injury. left forearm and wrist xray 01/20/19 negative for fracture. she refused head ct. maintain fall precautions. Opioid dependence: continue oxy 30 q4 and oxycontin 80bid. with close monitoring of mental status. Dispo: requires inpatient admission. discharge once cleared by surgery. Visit type - Emergency Visit Emergency Visit: Yes ED Registration Date: 01/12/19 Care time: The patient presented to the Emergency Department on the above date and was hospitalized for further evaluation of their emergent condition. - New Patient This patient is new to me today: No - Critical Care Critical Care patient: No - Discharge Referral Referred to [facility] No
[2019-01-21] MEDS: AMINO ACIDS/PROTEIN HYDROLYS 30 ML LIQUID.PKT PO SCH ×2 (09:38→17:46)
[2019-01-21] MEDS: POLYETHYLENE GLYCOL 3350 119 GM BTL PO SCH (09:41)
[2019-01-21] MEDS: ENOXAPARIN NA (PORCINE) 40 MG/0.4 ML DISP.SYRIN SQ SCH (09:41)
[2019-01-21] MEDS: LISINOPRIL 10 MG TABLET (FP) PO SCH (10:23)
[2019-01-21] MEDS: DULoxetine HCL 30 MG CAPSULE.DR (FP) PO SCH ×2 (10:23→21:56)
[2019-01-21] MEDS: DAPTOMYCIN 500 MG in SODIUM CHLORIDE 50 ML IVPB SCH (10:24)
[2019-01-21] MEDS: PANTOPRAZOLE 40 MG TABLET (FP) PO SCH (10:24)
[2019-01-21] MEDS: ASPIRIN 325 MG ENTERIC COATED TABLET (FP) PO SCH (10:24)
[2019-01-21] MEDS: MICONAZOLE NITRATE 14 GM/TUBE TUBE TP SCH ×2 (10:24→22:03)
[2019-01-21] MEDS: SENNOSIDES 8.6MG TABLET (FP) PO SCH ×2 (10:24→21:58)
[2019-01-21] MEDS: CYCLOBENZAPRINE HCL 5 MG TABLET PO SCH (10:24)
[2019-01-21] MEDS: ERTAPENEM SODIUM 1 GM in SODIUM CHLORIDE 50 ML IVPB SCH (10:25)
[2019-01-21] MEDS: FERROUS SO4 325 MG TABLET (FP) PO SCH ×2 (11:18→17:46)
[2019-01-21 12:24] LABS: ANISOCYTOSIS 1+; PLATELET ESTIMATE ADEQUATE
[2019-01-21] MEDS: oxyCODONE HCL 40 MG SUSTAINED ACTING TABLET PO SCH ×2 (12:53→21:59)
--- NOTE | 2019-01-21 16:33 | PN ---
Progress Note (short form) - Note Progress Note: Pt. ate breakfast despite knowing she was scheduled for left wound I&D today. Case cancelled. Please keep patient NPO after midnight tomorrow (Monday) night. Pre-op for left hip wound I&D with wound vac exchange 01/23/2019. Care per primary medical hospitalist team. Will follow. Albert Moya MD (Orthopaedic Surgery).
[2019-01-21] MEDS: MICONAZOLE NITRATE 2% VAGINAL CREAM 45 GM TUBE VG SCH (22:03)
[2019-01-22] MEDS: oxyCODONE HCL 40 MG SUSTAINED ACTING TABLET PO SCH ×3 (00:06→22:32)
[2019-01-22] MEDS: diphenhydrAMINE HCL 25 MG CAPSULE (FP) PO PRN ×2 (00:11→22:32)
[2019-01-22] MEDS: diazePAM 5 MG TABLET PO PRN ×2 (00:11→22:32)
[2019-01-22] MEDS: oxyCODONE HCL 5 MG TABLET PO PRN ×4 (06:45→21:15)
[2019-01-22] MEDS: OXYBUTYNIN CHLORIDE 5 MG TABLET PO SCH ×3 (06:45→21:15)
[2019-01-22] MEDS: DOCUSATE SODIUM 100 MG CAPSULE (FP) PO SCH ×3 (06:45→21:15)
[2019-01-22] MEDS: PREGABALIN 100 MG CAPSULE PO SCH ×3 (06:45→22:32)
[2019-01-22] MEDS ORDERED: PT OWN MED DRAWER 7, Y5N ONE ×3 (09:33→14:56)
[2019-01-22] MEDS: SENNOSIDES 8.6MG TABLET (FP) PO SCH ×2 (09:38→21:15)
[2019-01-22] MEDS: LISINOPRIL 10 MG TABLET (FP) PO SCH (09:38)
[2019-01-22] MEDS: ASPIRIN 325 MG ENTERIC COATED TABLET (FP) PO SCH (09:39)
[2019-01-22] MEDS: PANTOPRAZOLE 40 MG TABLET (FP) PO SCH (09:39)
[2019-01-22] MEDS: CYCLOBENZAPRINE HCL 5 MG TABLET PO SCH (09:39)
[2019-01-22] MEDS: DULoxetine HCL 30 MG CAPSULE.DR (FP) PO SCH ×2 (09:39→21:15)
[2019-01-22] MEDS: FERROUS SO4 325 MG TABLET (FP) PO SCH ×2 (09:41→17:31)
[2019-01-22] MEDS: ERTAPENEM SODIUM 1 GM in SODIUM CHLORIDE 50 ML IVPB SCH (09:41)
[2019-01-22] MEDS: AMINO ACIDS/PROTEIN HYDROLYS 30 ML LIQUID.PKT PO SCH ×2 (09:41→17:32)
[2019-01-22] MEDS: MICONAZOLE NITRATE 14 GM/TUBE TUBE TP SCH ×2 (09:42→21:19)
[2019-01-22] MEDS: ENOXAPARIN NA (PORCINE) 40 MG/0.4 ML DISP.SYRIN SQ SCH (09:42)
[2019-01-22] MEDS: POLYETHYLENE GLYCOL 3350 119 GM BTL PO SCH (09:42)
[2019-01-22 11:05] LABS: BASO % 1.1 % (0-2.0); EOS % 16.5 % (0-4.5); HEMATOCRIT 33.9 % (32.4-45.2); HEMOGLOBIN 10.7 GM/dL (10.7-15.3); LYMPH % 23.5 % (8-40); MCH 24.7 pg (25.7-33.7); MCHC 31.6 g/dl (32.0-36.0); MEAN PLT VOLUME 7.4 fl (7.5-11.1); MONO % 5.1 % (3.8-10.2); NEUT % 53.8 % (42.8-82.8); PLATELET COUNT 366 K/MM3 (134-434); RBC 4.35 M/mm3 (3.60-5.2); RDW 20.4 % (11.6-15.6); WHITE BLOOD COUNT 8.3 K/mm3 (4.0-10.0)
[2019-01-22 11:15] LABS: INR 0.98 (0.83-1.09); PROTHROMBIN TIME (PATIENT) 11.6 SEC (9.7-13.0)
--- NOTE | 2019-01-22 11:26 | PN ---
Progress Note, Physician Chief Complaint: Left hip pain History of Present Illness: Patient seen and examined at bedside. Feeling well. Eating breakfast, no acute events overnight. - Current Medication List Current Medications: Active Medications Al Hydroxide/Mg Hydroxide (Mylanta Oral Suspension -) 30 ml PO Q6HPO PRN PRN Reason: DYSPEPSIA Amino Acids (Prosource No Carb Liquid Pkt) 30 ml PO BID@0800,1730 [facility] Last Admin: 01/22/19 09:41 Dose: 30 ml Aspirin (Ecotrin -) 325 mg PO DAILY [facility] Last Admin: 01/22/19 09:39 Dose: 325 mg Cyclobenzaprine HCl (Cyclobenzaprine Hcl) 5 mg PO DAILY [facility] Last Admin: 01/22/19 09:39 Dose: 5 mg Diazepam (Valium -) 5 mg PO HS PRN PRN Reason: ANXIETY Last Admin: 01/22/19 00:11 Dose: 5 mg Diphenhydramine HCl (Benadryl -) 25 mg PO HS PRN PRN Reason: INSOMNIA Last Admin: 01/22/19 00:11 Dose: 25 mg Docusate Sodium (Colace -) 100 mg PO TID [facility] Last Admin: 01/22/19 06:45 Dose: 100 mg Duloxetine HCl (Cymbalta -) 30 mg PO BID [facility] Last Admin: 01/22/19 09:39 Dose: 30 mg Enoxaparin Sodium (Lovenox -) 40 mg SQ DAILY [facility] Last Admin: 01/22/19 09:42 Dose: Not Given Ferrous Sulfate (Feosol -) 325 mg PO BIDWM [facility] Last Admin: 01/22/19 09:41 Dose: 325 mg Daptomycin 500 mg/ Sodium (Chloride) 50 mls @ 100 mls/hr IVPB DAILY [facility]; Protocol Last Admin: 01/21/19 10:24 Dose: 100 mls/hr Ertapenem 1 gm/ Sodium (Chloride) 50 mls @ 100 mls/hr IVPB DAILY [facility] Last Admin: 01/22/19 09:41 Dose: 100 mls/hr Lisinopril (Prinivil) 10 mg PO DAILY [facility] Last Admin: 01/22/19 09:38 Dose: 10 mg Miconazole Nitrate (Monistat-7 Vaginal Cream -) 1 applic VG HS [facility] Stop: 01/24/19 22:01 Last Admin: 01/21/19 22:03 Dose: 1 applic Miconazole Nitrate (Monistat Topical Cream -) 1 applic TP BID [facility] Last Admin: 01/22/19 09:42 Dose: 1 applic Ondansetron HCl (Zofran Injection) 4 mg IVPUSH Q6H PRN PRN Reason: NAUSEA AND/OR VOMITING Oxybutynin Chloride (Ditropan -) 5 mg PO TID [facility] Last Admin: 01/22/19 06:45 Dose: 5 mg Oxycodone HCl (Oxycontin -) 80 mg PO BID [facility] Last Admin: 01/22/19 09:50 Dose: 80 mg Oxycodone HCl (Roxicodone -) 30 mg PO Q4H PRN PRN Reason: PAIN LEVEL 7 - 10 Last Admin: 01/22/19 06:45 Dose: 30 mg Pantoprazole Sodium (Protonix -) 40 mg PO DAILY [facility] Last Admin: 01/22/19 09:39 Dose: 40 mg Polyethylene Glycol (Miralax (For Daily Use) -) 17 gm PO DAILY [facility] Last Admin: 01/22/19 09:42 Dose: Not Given Pregabalin (Lyrica -) 100 mg PO TID [facility] Last Admin: 01/22/19 06:45 Dose: 100 mg Promethazine HCl (Phenergan Injection -) 12.5 mg IVPB Q6H PRN PRN Reason: NAUSEA-FOR RESCUE AFTER 15 MIN Senna (Senna -) 1 tab PO BID [facility] Last Admin: 01/22/19 09:38 Dose: 1 tab Senna (Senna -) 2 tab PO HS PRN PRN Reason: CONSTIPATION Simethicone (Mylicon Liquid -) 40 mg PO Q6H PRN PRN Reason: INDIGESTION - Objective Vital Signs: Vital Signs Temperature 98.5 F 01/22/19 09:32 Pulse Rate 93 H 01/22/19 09:32 Respiratory Rate 16 01/22/19 09:32 Blood Pressure 120/65 01/22/19 09:32 O2 Sat by Pulse Oximetry (%) 97 01/21/19 21:00 Constitutional: Yes: Well Nourished, No Distress, Calm HENT: Yes: WNL, Atraumatic, Normocephalic, Other (poor oral hygiene) Cardiovascular: Yes: WNL, Regular Rate and Rhythm Respiratory: Yes: WNL, Regular, CTA Bilaterally Gastrointestinal: Yes: WNL, Normal Bowel Sounds, Soft Musculoskeletal: Yes: WNL Extremities: Yes: Other (left hip wound vac in place, dressing c/d/i, nontender , no LE edema) Edema: No Wound/Incision: Yes: Dressing Dry and Intact ...Motor Strength: WNL Labs: CBC, BMP 01/22/19 10:50 INR, PTT INR 0.98 (0.83-1.09) 01/22/19 10:50 Problem List - Problems (1) Severe malnutrition Code(s): E43 - UNSPECIFIED SEVERE PROTEIN-CALORIE MALNUTRITION (2) Wound, open, hip or thigh Code(s): RHH0648 - (3) Anemia Code(s): D64.9 - ANEMIA, UNSPECIFIED (4) Chronic pain Code(s): G89.29 - OTHER CHRONIC PAIN (5) Depression Code(s): F32.9 - MAJOR DEPRESSIVE DISORDER, SINGLE EPISODE, UNSPECIFIED (6) HTN (hypertension) Code(s): I10 - ESSENTIAL (PRIMARY) HYPERTENSION Assessment/Plan 63 y/o female with a PMHx chronic left hip wound s/p multiple debridements of soft tissue, muscle, bone, VAC application, multiple I and D wound washes, s/p osteotomy left femur, removal of hardware (explant femoral component), I&D left hip wound; hardware removed by surgery recently left AMA and is back for similar complaints, left hip pain, fevers 1) Chronic Left Hip Wound -had washout 01/07/19 and 01/14/19 with vac placement -washout scheduled for tomorrow, keep NPO past midnight -c/w current IV abx for minimum 8 weeks (started on 12/14/18, will need 8 weeks total) via tunneled catheter placed at [facility] on 12/19/18 -pain mngmt adequate/bowel regimen -ID following -cx neg to date -wound care -surgery eval 2) HTN -better controlled -c/w current meds 3) BRANDYN on ferrous sulfate -hb stable 4) Depression/Anxiety -mood stable on cymbalta/valium 5) Urinary incontinence -continue oxybutynin 6) Severe Malnutrition -supp with Prosource BID, Ensure and magic cup daily 7) Chronic Opioid dependence-stable
[2019-01-22 11:37] LABS: ALBUMIN 2.9 g/dl (3.4-5.0); ALK PHOS 196 U/L (45-117); ANION GAP 8 MMOL/L (8-16); BILIRUBIN,TOTAL 0.1 mg/dL (0.2-1); BLOOD UREA NITROGEN 14 mg/dL (7-18); CHLORIDE 110 mmol/L (98-107); CO2 24 mmol/L (21-32); CREATININE 0.8 mg/dL (0.55-1.3); GLUCOSE,RANDOM 96 mg/dL (74-106); MAGNESIUM 2.1 mg/dL (1.8-2.4); POTASSIUM 4.4 mmol/L (3.5-5.1); SGOT/AST 14 U/L (15-37); SGPT/ALT 15 U/L (13-61); SODIUM 141 mmol/L (136-145); TOT PROT 6.9 g/dl (6.4-8.2)
[2019-01-22] MEDS: DAPTOMYCIN 500 MG in SODIUM CHLORIDE 50 ML IVPB SCH (11:45)
[2019-01-22] MEDS: MICONAZOLE NITRATE 2% VAGINAL CREAM 45 GM TUBE VG SCH (21:19)
[2019-01-23] MEDS: OXYBUTYNIN CHLORIDE 5 MG TABLET PO SCH ×3 (05:38→21:08)
[2019-01-23] MEDS: PREGABALIN 100 MG CAPSULE PO SCH ×3 (05:38→21:57)
[2019-01-23] MEDS: DOCUSATE SODIUM 100 MG CAPSULE (FP) PO SCH ×3 (05:39→21:08)
[2019-01-23] MEDS: oxyCODONE HCL 5 MG TABLET PO PRN ×4 (05:39→20:11)
[2019-01-23 05:56] LABS: HEMATOCRIT 28.7 % (32.4-45.2); HEMOGLOBIN 9.2 GM/dL (10.7-15.3); LYMPH % 18.4 % (8-40); MCH 24.8 pg (25.7-33.7); MCHC 32.1 g/dl (32.0-36.0); MEAN CELL VOLUME 77.2 fl (80-96); MEAN PLT VOLUME 7.3 fl (7.5-11.1); MONO % 6.7 % (3.8-10.2); NEUT % 56.9 % (42.8-82.8); PLATELET COUNT 303 K/MM3 (134-434); RBC 3.72 M/mm3 (3.60-5.2); RDW 20.4 % (11.6-15.6); WHITE BLOOD COUNT 7.1 K/mm3 (4.0-10.0)
[2019-01-23 06:19] LABS: CALCIUM 8.4 mg/dL (8.5-10.1); POTASSIUM 4.1 mmol/L (3.5-5.1)
[2019-01-23] MEDS: AMINO ACIDS/PROTEIN HYDROLYS 30 ML LIQUID.PKT PO SCH ×2 (08:36→18:20)
[2019-01-23] MEDS: FERROUS SO4 325 MG TABLET (FP) PO SCH ×2 (08:36→18:20)
--- NOTE | 2019-01-23 08:43 | PN ---
Physical Exam: SUBJECTIVE: Patient seen and examined. She denies pain, sob, no events overnight. Per RN she can transfer herself to . OBJECTIVE: Vital Signs Period Temp Pulse Resp BP Sys/Vargas Pulse Ox Last 24 Hr 97.8 F-98.5 F 93-100 16-20 119-123/65-67 97-97 PE Neuro: arousable, alert, cn 2-12intact Pulm: CTAB CV: s1 s2 rrr no mrg Abd: s nt nd +bs Ext: L hip wound vac in place, no le edema 01/23/19 01/23/19 05:30 05:30 WBC 7.1 RBC 3.72 Hgb 9.2 L Hct 28.7 L D MCV 77.2 L MCH 24.8 L MCHC 32.1 RDW 20.4 H Plt Count 303 MPV 7.3 L Absolute Neuts (auto) 4.0 Neutrophils % 56.9 Lymphocytes % 18.4 D Monocytes % 6.7 Eosinophils % 17.0 H Basophils % 1.0 Nucleated RBC % 0 PT with INR INR Sodium 142 Potassium 4.1 Chloride 111 H Carbon Dioxide 25 Anion Gap 6 L BUN 17 Creatinine 0.7 Creat Clearance w eGFR Random Glucose 101 Calcium 8.4 L Magnesium Total Bilirubin AST ALT Alkaline Phosphatase Total Protein Albumin Active Medications Generic Name Dose Route Start Last Admin Trade Name Freq PRN Reason Stop Dose Admin Al Hydroxide/Mg Hydroxide 30 ml 01/14/19 14:35 Mylanta Oral Suspension - PO Q6HPO PRN DYSPEPSIA Amino Acids 30 ml 01/14/19 17:30 01/23/19 08:36 Prosource No Carb Liquid Pkt PO Not Given BID@0800,1730 [facility] Aspirin 325 mg 01/15/19 10:00 01/22/19 09:39 Ecotrin - PO 325 mg DAILY [facility] Administration Cyclobenzaprine HCl 5 mg 01/15/19 10:00 01/22/19 09:39 Cyclobenzaprine Hcl PO 5 mg DAILY [facility] Administration Diazepam 5 mg 01/18/19 00:46 01/22/19 22:32 Valium - PO 5 mg HS PRN Administration ANXIETY Diphenhydramine HCl 25 mg 01/14/19 14:35 01/22/19 22:32 Benadryl - PO 25 mg HS PRN Administration INSOMNIA Docusate Sodium 100 mg 01/14/19 22:00 01/23/19 05:39 Colace - PO 100 mg TID [facility] Administration Duloxetine HCl 30 mg 01/14/19 22:00 01/22/19 21:15 Cymbalta - PO 30 mg BID [facility] Administration Enoxaparin Sodium 40 mg 01/15/19 10:00 01/22/19 09:42 Lovenox - SQ Not Given DAILY [facility] Ferrous Sulfate 325 mg 01/14/19 17:30 01/23/19 08:36 Feosol - PO Not Given BIDWM [facility] Daptomycin 500 mg/ Sodium 50 mls @ 100 mls/hr 01/15/19 10:00 01/22/19 11:45 Chloride IVPB 100 mls/hr DAILY [facility] Administration Protocol Ertapenem 1 gm/ Sodium 50 mls @ 100 mls/hr 01/15/19 10:00 01/22/19 09:41 Chloride IVPB 100 mls/hr DAILY [facility] Administration Lisinopril 10 mg 01/15/19 10:00 01/22/19 09:38 Prinivil PO 10 mg DAILY [facility] Administration Miconazole Nitrate 1 applic 01/19/19 14:31 01/22/19 21:19 Monistat-7 Vaginal Cream - VG 01/24/19 22:01 1 applic HS [facility] Administration Miconazole Nitrate 1 applic 01/19/19 22:00 01/22/19 21:19 Monistat Topical Cream - TP 1 applic BID [facility] Administration Ondansetron HCl 4 mg 01/14/19 14:35 Zofran Injection IVPUSH Q6H PRN NAUSEA AND/OR VOMITING Oxybutynin Chloride 5 mg 01/14/19 22:00 01/23/19 05:38 Ditropan - PO 5 mg TID [facility] Administration Oxycodone HCl 80 mg 01/14/19 22:00 01/22/19 22:32 Oxycontin - PO 80 mg BID [facility] Administration Oxycodone HCl 30 mg 01/17/19 14:48 01/23/19 05:39 Roxicodone - PO 30 mg Q4H PRN Administration PAIN LEVEL 7 - 10 Pantoprazole Sodium 40 mg 01/15/19 10:00 01/22/19 09:39 Protonix - PO 40 mg DAILY [facility] Administration Polyethylene Glycol 17 gm 01/15/19 10:00 01/22/19 09:42 Miralax (For Daily Use) - PO Not Given DAILY [facility] Pregabalin 100 mg 01/14/19 22:00 01/23/19 05:38 Lyrica - PO 100 mg TID [facility] Administration Promethazine HCl 12.5 mg 01/14/19 14:35 Phenergan Injection - IVPB Q6H PRN NAUSEA-FOR RESCUE AFTER 15 MIN Senna 1 tab 01/14/19 22:00 01/22/19 21:15 Senna - PO 1 tab BID [facility] Administration Senna 2 tab 01/14/19 14:35 Senna - PO HS PRN CONSTIPATION Simethicone 40 mg 01/14/19 14:35 Mylicon Liquid - PO Q6H PRN INDIGESTION Microbiology 01/14/19 14:10 Hip - Left Gram Stain - Final 01/14/19 14:10 Hip - Left Wound Culture - Final NO AEROBIC OR ANAEROBIC GROWTH OBTAINED. 01/14/19 14:08 Hip - Left Gram Stain - Final 01/14/19 14:08 Hip - Left Wound Culture - Final NO GROWTH OF AEROBIC ORGANISMS AFTER 48 HOURS INCUBATION 01/14/19 13:52 Hip - Left Gram Stain - Final 01/14/19 13:52 Hip - Left Wound Culture - Final NO GROWTH OF AEROBIC ORGANISMS AFTER 48 HOURS INCUBATION 01/14/19 13:50 Hip - Left Gram Stain - Final 01/14/19 13:50 Hip - Left Wound Culture - Final NO GROWTH OF AEROBIC ORGANISMS AFTER 48 HOURS INCUBATION Assessment: 63 year old female with a PMHx chronic left hip wound s/p multiple debridements of soft tissue, muscle, bone, VAC application, multiple I and D wound washes, s/p osteotomy left femur, removal of hardware (explant femoral component), I&D left hip wound; hardware removed by surgery recently left AMA and returned for similar complaints, left hip pain, fevers. 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 Plan: 1. Chronic Left Hip Wound - Washout today today with surgery - S/p 01/07/19 and 01/14/19 with vac placement - Continue current IV abx for minimum 8 weeks (started on 12/14/18, will need 8 weeks total) via tunneled catheter placed at [facility] on 12/19/18, - BC neg to date - Continue extensive pain regimen - ID following 2. HTN - Stable this AM - Cont meds 3. BRANDYN on ferrous sulfate - Hgb down, however stable >8 - Trend 4. Depression/Anxiety - Cont cymbalta/valium 5. Urinary incontinence - Continue oxybutynin 6. Severe Malnutrition - Supp with Prosource BID, Ensure and magic cup daily 7. Chronic Opioid dependence-stable Dispo: - Will need SNF for IV abx Visit type - Emergency Visit Emergency Visit: Yes ED Registration Date: 01/12/19 Care time: The patient presented to the Emergency Department on the above date and was hospitalized for further evaluation of their emergent condition. - New Patient This patient is new to me today: Yes Date on this admission: 01/23/19 - Critical Care Critical Care patient: No - Discharge Referral Referred to [facility] Med P.C.: No
[2019-01-23 09:52] LABS: CREATININE 0.7 mg/dL (0.55-1.3)
[2019-01-23] MEDS: SENNOSIDES 8.6MG TABLET (FP) PO SCH ×2 (09:59→21:08)
[2019-01-23] MEDS: PANTOPRAZOLE 40 MG TABLET (FP) PO SCH (09:59)
[2019-01-23] MEDS: LISINOPRIL 10 MG TABLET (FP) PO SCH (09:59)
[2019-01-23] MEDS: ENOXAPARIN NA (PORCINE) 40 MG/0.4 ML DISP.SYRIN SQ SCH (10:00)
[2019-01-23] MEDS: POLYETHYLENE GLYCOL 3350 119 GM BTL PO SCH (10:00)
[2019-01-23] MEDS: DULoxetine HCL 30 MG CAPSULE.DR (FP) PO SCH ×2 (10:00→21:08)
[2019-01-23] MEDS: CYCLOBENZAPRINE HCL 5 MG TABLET PO SCH (10:00)
[2019-01-23] MEDS: MICONAZOLE NITRATE 14 GM/TUBE TUBE TP SCH ×2 (10:01→21:08)
[2019-01-23] MEDS: ASPIRIN 325 MG ENTERIC COATED TABLET (FP) PO SCH (10:01)
[2019-01-23] MEDS: ERTAPENEM SODIUM 1 GM in SODIUM CHLORIDE 50 ML IVPB SCH (10:01)
[2019-01-23] MEDS: DAPTOMYCIN 500 MG in SODIUM CHLORIDE 50 ML IVPB SCH (11:06)
[2019-01-23] MEDS: oxyCODONE HCL 40 MG SUSTAINED ACTING TABLET PO SCH ×2 (11:08→21:57)
[2019-01-23] MEDS ORDERED: PROPOFOL 20 ML ONE (13:05)
[2019-01-23] MEDS ORDERED: DEXAMETHASONE SOD PHOSPHATE 4 MG/1 ML VIAL ONE (13:06)
[2019-01-23] MEDS ORDERED: LACTATED RINGERS SOLUTION 1,000 ML IV SCH (13:15)
--- NOTE | 2019-01-23 16:41 | PN ---
Progress Note (short form) - Note Progress Note: 63F s/p left hip I&D, and exchange of wound vac dressing POD #0. Left hip wound dimensions: described in operative report. No intra-op evidence of wound contamination or active infection. -f/u intra-operative wound culture specimens. -Pain control. -DVT PPx: - Chemical: ASA 81mg PO BID. - Mechanical: SOUTH's, SCD's. -Incentive spirometry. -PT/OT/Rehab, OOB. -NWB LLE. -f/u post-op trial of void - 8 hours max. -f/u AM labs. -Care per medical hospitalist team. -Will plan to continue weekly wound vac dressing changes in the OR due to size/ depth of wound. -Will follow. Albert Moya MD (Orthopaedic Surgery).
[2019-01-23] MEDS ORDERED: SENNOSIDES 8.6MG TABLET (FP) PO PRN (16:57)
[2019-01-23] MEDS ORDERED: MAG HYDROX/AL HYDROX/SIMETH 30 ML UNIT-DOSE CUP PO PRN (16:57)
[2019-01-23] MEDS ORDERED: ONDANSETRON 4 MG/2 ML VIAL IVPUSH PRN (16:57)
[2019-01-23] MEDS ORDERED: PROMETHAZINE HCL 25 MG/1 ML VIAL IVPB PRN (16:57)
[2019-01-23] MEDS ORDERED: SIMETHICONE 40 MG/0.6 ML BOTTLE PO PRN (16:57)
--- NOTE | 2019-01-23 17:06 | OP ---
DATE OF OPERATION: DATE OF DICTATION: 01/23/2019 SURGEON: Albert Moya M.D. PREOPERATIVE DIAGNOSIS: Chronic wound proximal lateral thigh. POSTOPERATIVE DIAGNOSIS: Chronic wound proximal lateral thigh. OPERATION PERFORMED: Removal of wound VAC, incision and drainage, cultures taken, and repeat wound VAC insertion. ANESTHESIA: General. DESCRIPTION OF PROCEDURE: The patient was correctly identified, brought in operating room. Left lower extremity was prepped, draped in a window drape fashion. The patient in left decubitus position. The wound was noticed to be smaller, appeared to be clean, fibrotic avascular tissue anteriorly noted. Some recurrent heterotopic ossification palpable in the soft tissues and hard induration throughout, not ready for closure. Culture taken. The wound was measured as 1-3/4 inches deep, 5 inches in length, and about 2-3/4 inches in width. A new wound VAC was applied. DuraPrep applied to the skin, and the wound VAC sealed appropriately. MD OSVALDO Oconnor/[id number]
[2019-01-23] MEDS: LACTATED RINGERS SOLUTION 1,000 ML IV SCH (18:20)
[2019-01-23] MEDS: MICONAZOLE NITRATE 2% VAGINAL CREAM 45 GM TUBE VG SCH (21:08)
[2019-01-23] MEDS: diphenhydrAMINE HCL 25 MG CAPSULE (FP) PO PRN (21:57)
[2019-01-23] MEDS: diazePAM 5 MG TABLET PO PRN (21:57)
[2019-01-24] MEDS: oxyCODONE HCL 5 MG TABLET PO PRN ×4 (03:47→22:00)
[2019-01-24] MEDS: OXYBUTYNIN CHLORIDE 5 MG TABLET PO SCH ×3 (05:39→22:02)
[2019-01-24] MEDS: PREGABALIN 100 MG CAPSULE PO SCH ×3 (05:39→22:02)
[2019-01-24] MEDS: DOCUSATE SODIUM 100 MG CAPSULE (FP) PO SCH ×3 (05:40→22:02)
[2019-01-24 06:05] LABS: BASO % 0.7 % (0-2.0); EOS % 5.6 % (0-4.5); HEMATOCRIT 29.4 % (32.4-45.2); HEMOGLOBIN 9.5 GM/dL (10.7-15.3); LYMPH % 16.7 % (8-40); MCH 24.9 pg (25.7-33.7); MCHC 32.2 g/dl (32.0-36.0); MEAN CELL VOLUME 77.1 fl (80-96); MEAN PLT VOLUME 7.5 fl (7.5-11.1); MONO % 6.9 % (3.8-10.2); NEUT % 70.1 % (42.8-82.8); PLATELET COUNT 315 K/MM3 (134-434); RBC 3.81 M/mm3 (3.60-5.2); RDW 20.5 % (11.6-15.6); WHITE BLOOD COUNT 9.4 K/mm3 (4.0-10.0)
[2019-01-24 06:41] LABS: ALBUMIN 3.1 g/dl (3.4-5.0); BILIRUBIN,TOTAL 0.1 mg/dL (0.2-1); CALCIUM 8.3 mg/dL (8.5-10.1); POTASSIUM 4.6 mmol/L (3.5-5.1)
[2019-01-24] MEDS ORDERED: PT OWN MED DRAWER 7, Y5N ONE ×2 (08:42→09:51)
[2019-01-24] MEDS: AMINO ACIDS/PROTEIN HYDROLYS 30 ML LIQUID.PKT PO SCH ×2 (09:03→17:25)
[2019-01-24] MEDS: FERROUS SO4 325 MG TABLET (FP) PO SCH ×2 (09:03→17:26)
[2019-01-24] MEDS: oxyCODONE HCL 40 MG SUSTAINED ACTING TABLET PO SCH ×2 (09:05→22:50)
[2019-01-24] MEDS: PANTOPRAZOLE 40 MG TABLET (FP) PO SCH (09:05)
[2019-01-24] MEDS: ASPIRIN 325 MG ENTERIC COATED TABLET (FP) PO SCH (09:06)
[2019-01-24] MEDS: SENNOSIDES 8.6MG TABLET (FP) PO SCH ×2 (09:06→22:02)
[2019-01-24] MEDS: DULoxetine HCL 30 MG CAPSULE.DR (FP) PO SCH ×2 (09:06→22:02)
[2019-01-24] MEDS: MICONAZOLE NITRATE 14 GM/TUBE TUBE TP SCH ×2 (09:08→22:02)
[2019-01-24] MEDS: ENOXAPARIN NA (PORCINE) 40 MG/0.4 ML DISP.SYRIN SQ SCH (09:14)
[2019-01-24] MEDS: POLYETHYLENE GLYCOL 3350 119 GM BTL PO SCH (09:14)
[2019-01-24] MEDS: ERTAPENEM SODIUM 1 GM in SODIUM CHLORIDE 50 ML IVPB SCH (10:12)
[2019-01-24] MEDS: CYCLOBENZAPRINE HCL 5 MG TABLET PO SCH (10:18)
[2019-01-24] MEDS: DAPTOMYCIN 500 MG in SODIUM CHLORIDE 50 ML IVPB SCH (11:07)
[2019-01-24] MEDS: LISINOPRIL 10 MG TABLET (FP) PO SCH (13:18)
--- NOTE | 2019-01-24 15:03 | PN ---
Progress Note, Physician Chief Complaint: hip wound History of Present Illness: no acute events, washout yesterday without complications, wants to go home - Current Medication List Current Medications: Active Medications Al Hydroxide/Mg Hydroxide (Mylanta Oral Suspension -) 30 ml PO Q6HPO PRN PRN Reason: DYSPEPSIA Amino Acids (Prosource No Carb Liquid Pkt) 30 ml PO BID@0800,1730 [facility] Last Admin: 01/24/19 09:03 Dose: 30 ml Aspirin (Ecotrin -) 325 mg PO DAILY [facility] Last Admin: 01/24/19 09:06 Dose: 325 mg Cyclobenzaprine HCl (Cyclobenzaprine Hcl) 5 mg PO DAILY [facility] Last Admin: 01/24/19 10:18 Dose: 5 mg Diazepam (Valium -) 5 mg PO HS PRN PRN Reason: ANXIETY Last Admin: 01/23/19 21:57 Dose: 5 mg Diphenhydramine HCl (Benadryl -) 25 mg PO HS PRN PRN Reason: INSOMNIA Last Admin: 01/23/19 21:57 Dose: 25 mg Docusate Sodium (Colace -) 100 mg PO TID [facility] Last Admin: 01/24/19 13:18 Dose: 100 mg Duloxetine HCl (Cymbalta -) 30 mg PO BID [facility] Last Admin: 01/24/19 09:06 Dose: 30 mg Enoxaparin Sodium (Lovenox -) 40 mg SQ DAILY [facility] Last Admin: 01/24/19 09:14 Dose: Not Given Fentanyl (Sublimaze Injection -) 50 mcg IVPUSH [id number] PRN PRN Reason: PAIN-PACU ORDER X 4 DOSES ONLY Ferrous Sulfate (Feosol -) 325 mg PO BIDWM [facility] Last Admin: 01/24/19 09:03 Dose: 325 mg Daptomycin 500 mg/ Sodium (Chloride) 50 mls @ 100 mls/hr IVPB DAILY [facility]; Protocol Last Admin: 01/24/19 11:07 Dose: 100 mls/hr Ertapenem 1 gm/ Sodium (Chloride) 50 mls @ 100 mls/hr IVPB DAILY [facility] Last Admin: 01/24/19 10:12 Dose: 100 mls/hr Lactated Ringer's (Lactated Ringers Solution) 1,000 mls @ 125 mls/hr IV ASDIR [facility] Last Admin: 01/23/19 18:20 Dose: Not Given Lisinopril (Prinivil) 10 mg PO DAILY [facility] Last Admin: 01/24/19 13:18 Dose: 10 mg Miconazole Nitrate (Monistat-7 Vaginal Cream -) 1 applic VG HS [facility] Stop: 01/24/19 22:01 Last Admin: 01/23/19 21:08 Dose: 1 applic Miconazole Nitrate (Monistat Topical Cream -) 1 applic TP BID [facility] Last Admin: 01/24/19 09:08 Dose: 1 applic Ondansetron HCl (Zofran Injection) 4 mg IVPUSH Q6H PRN PRN Reason: NAUSEA AND/OR VOMITING Oxybutynin Chloride (Ditropan -) 5 mg PO TID [facility] Last Admin: 01/24/19 13:18 Dose: 5 mg Oxycodone HCl (Roxicodone -) 30 mg PO Q4H PRN PRN Reason: PAIN LEVEL 7 - 10 Last Admin: 01/24/19 13:19 Dose: 30 mg Oxycodone HCl (Oxycontin -) 80 mg PO BID [facility] Last Admin: 01/24/19 09:05 Dose: 80 mg Pantoprazole Sodium (Protonix -) 40 mg PO DAILY [facility] Last Admin: 01/24/19 09:05 Dose: 40 mg Polyethylene Glycol (Miralax (For Daily Use) -) 17 gm PO DAILY [facility] Last Admin: 01/24/19 09:14 Dose: 17 gm Pregabalin (Lyrica -) 100 mg PO TID [facility] Last Admin: 01/24/19 13:18 Dose: 100 mg Promethazine HCl (Phenergan Injection -) 12.5 mg IVPB Q6H PRN PRN Reason: NAUSEA-FOR RESCUE AFTER 15 MIN Senna (Senna -) 2 tab PO HS PRN PRN Reason: CONSTIPATION Senna (Senna -) 1 tab PO BID [facility] Last Admin: 01/24/19 09:06 Dose: 1 tab Simethicone (Mylicon Liquid -) 40 mg PO Q6H PRN PRN Reason: INDIGESTION - Objective Vital Signs: Vital Signs Temperature 98.3 F 01/24/19 10:00 Pulse Rate 94 H 01/24/19 10:00 Respiratory Rate 18 01/24/19 10:00 Blood Pressure 102/56 L 01/24/19 10:00 O2 Sat by Pulse Oximetry (%) 96 01/24/19 09:00 Constitutional: Yes: Well Nourished, No Distress, Calm Cardiovascular: Yes: WNL, Regular Rate and Rhythm Respiratory: Yes: WNL, Regular, CTA Bilaterally Gastrointestinal: Yes: WNL, Normal Bowel Sounds, Soft, Abdomen, Obese Musculoskeletal: Yes: WNL Extremities: Yes: WNL Wound/Incision: Yes: Other (left hip wound dressing cdi, wound vac) Labs: CBC, BMP 01/24/19 05:30 01/24/19 05:30 INR, PTT INR 0.98 (0.83-1.09) 01/22/19 10:50 Problem List - Problems (1) Severe malnutrition Code(s): E43 - UNSPECIFIED SEVERE PROTEIN-CALORIE MALNUTRITION (2) Wound, open, hip or thigh Code(s): OQO0052 - (3) Anemia Code(s): D64.9 - ANEMIA, UNSPECIFIED (4) Chronic pain Code(s): G89.29 - OTHER CHRONIC PAIN (5) Depression Code(s): F32.9 - MAJOR DEPRESSIVE DISORDER, SINGLE EPISODE, UNSPECIFIED (6) HTN (hypertension) Code(s): I10 - ESSENTIAL (PRIMARY) HYPERTENSION Assessment/Plan 63 y/o female with a PMHx chronic left hip wound s/p multiple debridements of soft tissue, muscle, bone, VAC application, multiple I and D wound washes, s/p osteotomy left femur, removal of hardware (explant femoral component), I&D left hip wound; hardware removed by surgery recently left AMA and is back for similar complaints, left hip pain, fevers 1) Chronic Left Hip Wound -POD#1 left hip I and D and exchange of wound vac dressing- No intra-op evidence of wound contamination or active infection, had washout 01/07/19 and with vac placement -f/u intra-operative wound culture specimens -c/w current IV abx for minimum 8 weeks (started on 12/14/18, will need 8 weeks total) via tunneled catheter placed at [facility] on 12/19/18 -pain mngmt adequate/bowel regimen -ID following -cx neg to date -wound care -surgery eval -incentive spirometer -plan to continue weekly wound vac dressing changes in the OR due to size/depth of wound -discussed with Dr. 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
[2019-01-24] MEDS: diphenhydrAMINE HCL 25 MG CAPSULE (FP) PO PRN (15:29)
[2019-01-24] MEDS: LACTATED RINGERS SOLUTION 1,000 ML IV SCH (16:48)
[2019-01-24] MEDS: MICONAZOLE NITRATE 2% VAGINAL CREAM 45 GM TUBE VG SCH (22:02)
[2019-01-24] MEDS: diazePAM 5 MG TABLET PO PRN (22:51)
[2019-01-25] MEDS: oxyCODONE HCL 5 MG TABLET PO PRN ×5 (02:11→20:34)
[2019-01-25] MEDS: DOCUSATE SODIUM 100 MG CAPSULE (FP) PO SCH ×3 (06:13→22:00)
[2019-01-25] MEDS: OXYBUTYNIN CHLORIDE 5 MG TABLET PO SCH ×3 (06:13→21:59)
[2019-01-25] MEDS: PREGABALIN 100 MG CAPSULE PO SCH ×3 (06:13→21:59)
[2019-01-25 07:33] LABS: CREATININE 0.7 mg/dL (0.55-1.3); POTASSIUM 3.9 mmol/L (3.5-5.1)
[2019-01-25 07:34] LABS: CALCIUM 8.5 mg/dL (8.5-10.1)
[2019-01-25 07:35] LABS: BASO % 0.9 % (0-2.0); HEMATOCRIT 29.6 % (32.4-45.2); HEMOGLOBIN 9.5 GM/dL (10.7-15.3); LYMPH % 20.6 % (8-40); MCH 24.8 pg (25.7-33.7); MEAN CELL VOLUME 77.6 fl (80-96); MEAN PLT VOLUME 7.5 fl (7.5-11.1); MONO % 4.2 % (3.8-10.2); NEUT % 51.3 % (42.8-82.8); PLATELET COUNT 313 K/MM3 (134-434); RBC 3.82 M/mm3 (3.60-5.2); RDW 20.5 % (11.6-15.6); WHITE BLOOD COUNT 7.7 K/mm3 (4.0-10.0)
[2019-01-25] MEDS ORDERED: PT OWN MED DRAWER 7, Y5N ONE (10:12)
[2019-01-25] MEDS: LISINOPRIL 10 MG TABLET (FP) PO SCH (10:25)
[2019-01-25] MEDS: FERROUS SO4 325 MG TABLET (FP) PO SCH ×2 (10:25→17:29)
[2019-01-25] MEDS: PANTOPRAZOLE 40 MG TABLET (FP) PO SCH (10:25)
[2019-01-25] MEDS: DULoxetine HCL 30 MG CAPSULE.DR (FP) PO SCH ×2 (10:25→22:00)
[2019-01-25] MEDS: ASPIRIN 325 MG ENTERIC COATED TABLET (FP) PO SCH (10:25)
[2019-01-25] MEDS: CYCLOBENZAPRINE HCL 5 MG TABLET PO SCH (10:25)
[2019-01-25] MEDS: ENOXAPARIN NA (PORCINE) 40 MG/0.4 ML DISP.SYRIN SQ SCH (10:26)
[2019-01-25] MEDS: DAPTOMYCIN 500 MG in SODIUM CHLORIDE 50 ML IVPB SCH (10:26)
[2019-01-25] MEDS: ERTAPENEM SODIUM 1 GM in SODIUM CHLORIDE 50 ML IVPB SCH (10:26)
[2019-01-25] MEDS: AMINO ACIDS/PROTEIN HYDROLYS 30 ML LIQUID.PKT PO SCH ×2 (10:26→17:29)
[2019-01-25] MEDS: MICONAZOLE NITRATE 14 GM/TUBE TUBE TP SCH ×2 (10:26→22:00)
[2019-01-25] MEDS: SENNOSIDES 8.6MG TABLET (FP) PO SCH ×2 (10:36→21:59)
[2019-01-25] MEDS: POLYETHYLENE GLYCOL 3350 119 GM BTL PO SCH (11:52)
[2019-01-25] MEDS: oxyCODONE HCL 40 MG SUSTAINED ACTING TABLET PO SCH ×2 (13:27→22:00)
--- NOTE | 2019-01-25 16:22 | PN ---
Physical Exam: SUBJECTIVE: Patient seen and examined at the bedside. sitting up, feels well. no pain, only some itch on left side where the tape is covering her wound. benadryl helps. had two episodes of soft stools overnight, but improved. she wants to go home, not rehab. OBJECTIVE: Vital Signs Period Temp Pulse Resp BP Sys/Vargas Pulse Ox Last 24 Hr 98 F-98.5 F 88-99 16-20 108-139/63-86 98-98 GENERAL: The patient is awake, alert, and fully oriented, in no acute distress. HEAD: Normal with no signs of trauma. EYES: PERRL, extraocular movements intact, sclera anicteric, conjunctiva clear. No ptosis. ENT: Ears normal, nares patent, oropharynx clear without exudates, moist mucous membranes. NECK: Trachea midline, full range of motion, supple. LUNGS: Breath sounds equal, clear to auscultation bilaterally, no wheezes, no crackles-tolerating room air HEART: Regular rate and rhythm ABDOMEN: Soft, nontender, nondistended, normoactive bowel sounds, no guarding, no rebound, no hepatosplenomegaly, no masses. EXTREMITIES: mild trace edema bilaterally. NEUROLOGICAL: Normal speech, WC bound, fall risk PSYCH: Normal mood, normal affect. SKIN: left chronic wound s/p washout. wound attached to wound vac. last washout was on 01/23/19 Laboratory Results - last 24 hr 01/25/19 01/25/19 06:00 06:00 WBC 7.7 RBC 3.82 Hgb 9.5 L Hct 29.6 L MCV 77.6 L MCH 24.8 L MCHC 32.0 RDW 20.5 H Plt Count 313 MPV 7.5 Absolute Neuts (auto) 4.0 Total Counted 100 Neutrophils % 51.3 D Neutrophils % (Manual) 48.0 Band Neutrophils % 2.0 Lymphocytes % 20.6 D Lymphocytes % (Manual) 21.0 D Monocytes % 4.2 Monocytes % (Manual) 4 D Eosinophils % 23.0 H* D Eosinophils % (Manual) No Result Required. Basophils % 0.9 Nucleated RBC % 0 Sodium 141 Potassium 3.9 Chloride 111 H Carbon Dioxide 24 Anion Gap 5 L BUN 19 H Creatinine 0.7 Est GFR (CKD-EPI)AfAm 106.87 Est GFR (CKD-EPI)NonAf 92.21 Random Glucose 119 H Calcium 8.5 Active Medications Generic Name Dose Route Start Last Admin Trade Name Freq PRN Reason Stop Dose Admin Al Hydroxide/Mg Hydroxide 30 ml 01/23/19 16:57 Mylanta Oral Suspension - PO Q6HPO PRN DYSPEPSIA Amino Acids 30 ml 01/23/19 17:30 01/25/19 10:26 Prosource No Carb Liquid Pkt PO 30 ml BID@0800,1730 ELKE Administration Aspirin 325 mg 01/24/19 10:00 01/25/19 10:25 Ecotrin - PO 325 mg DAILY ELKE Administration Cyclobenzaprine HCl 5 mg 01/24/19 10:00 01/25/19 10:25 Cyclobenzaprine Hcl PO 5 mg DAILY ELKE Administration Diazepam 5 mg 01/23/19 16:57 01/24/19 22:51 Valium - PO 5 mg HS PRN Administration ANXIETY Diphenhydramine HCl 25 mg 01/23/19 16:57 01/24/19 15:29 Benadryl - PO 25 mg HS PRN Administration INSOMNIA Docusate Sodium 100 mg 01/23/19 22:00 01/25/19 15:20 Colace - PO Not Given TID ELKE Duloxetine HCl 30 mg 01/23/19 22:00 01/25/19 10:25 Cymbalta - PO 30 mg BID ELKE Administration Enoxaparin Sodium 40 mg 01/24/19 10:00 01/25/19 10:26 Lovenox - SQ Not Given DAILY ELKE Fentanyl 50 mcg 01/23/19 16:57 Sublimaze Injection - IVPUSH [id number] PRN PAIN-PACU ORDER X 4 DOSES ONLY Ferrous Sulfate 325 mg 01/23/19 17:30 01/25/19 10:25 Feosol - PO 325 mg BIDWM ELKE Administration Daptomycin 500 mg/ Sodium 50 mls @ 100 mls/hr 01/24/19 10:00 01/25/19 10:26 Chloride IVPB 100 mls/hr DAILY ELKE Administration Protocol Ertapenem 1 gm/ Sodium 50 mls @ 100 mls/hr 01/24/19 10:00 01/25/19 10:26 Chloride IVPB 100 mls/hr DAILY ELKE Administration Lactated Ringer's 1,000 mls @ 125 mls/hr 01/23/19 16:57 01/24/19 16:48 Lactated Ringers Solution IV Not Given ASDIR ELKE Lisinopril 10 mg 01/24/19 10:00 01/25/19 10:25 Prinivil PO 10 mg DAILY ELKE Administration Miconazole Nitrate 1 applic 01/23/19 22:00 01/25/19 10:26 Monistat Topical Cream - TP 1 applic BID ELKE Administration Ondansetron HCl 4 mg 01/23/19 16:57 Zofran Injection IVPUSH Q6H PRN NAUSEA AND/OR VOMITING Oxybutynin Chloride 5 mg 01/23/19 22:00 01/25/19 15:20 Ditropan - PO 5 mg TID ELKE Administration Oxycodone HCl 30 mg 01/23/19 16:57 01/25/19 15:20 Roxicodone - PO 30 mg Q4H PRN Administration PAIN LEVEL 7 - 10 Oxycodone HCl 80 mg 01/23/19 22:00 01/25/19 13:27 Oxycontin - PO 80 mg BID ELKE Administration Pantoprazole Sodium 40 mg 01/24/19 10:00 01/25/19 10:25 Protonix - PO 40 mg DAILY [facility] Administration Polyethylene Glycol 17 gm 01/24/19 10:00 01/25/19 11:52 Miralax (For Daily Use) - PO Not Given DAILY [facility] Pregabalin 100 mg 01/23/19 22:00 01/25/19 15:20 Lyrica - PO 100 mg TID ELKE Administration Promethazine HCl 12.5 mg 01/23/19 16:57 Phenergan Injection - IVPB Q6H PRN NAUSEA-FOR RESCUE AFTER 15 MIN Senna 2 tab 01/23/19 16:57 Senna - PO HS PRN CONSTIPATION Senna 1 tab 01/23/19 22:00 01/25/19 10:36 Senna - PO Not Given BID [facility] Simethicone 40 mg 01/23/19 16:57 Mylicon Liquid - PO Q6H PRN INDIGESTION ASSESSMENT/PLAN: Patient is a 63 year old female with a significant past medical history of hypertension, anxiety, depression, chronic pain and chronic left hip left wound. who has undergone left hip debridement of soft tissue, muscle, bone, VAC application, multiple I and D wound washes, s/p osteotomy left femur, removal of hardware (explant femoral component), I&D left hip wound; hardware removed by surgery. Surgery: s/p left wound washout/vac placement on 01/23. Follow up care per surgery team. On Daptomycin 500mg daily and Ertapenem 1 gram daily as per ID for minimum 8 weeks (started on 12/14/18, will need 8 weeks total ) via tunneled catheter placed at [facility] on 12/19/18. incentive spirometer, bowel regimen. hypertension: controlled on lisinopril 10mg daily Depression, chronic. Continue Cymbalta and Valium as needed. Anemia. monitor with daily labs. continue PO Iron therapy. Urinary incontinence: Continue oxybutynin. no retention of urine. Severe Malnutrition: On a regular diet, on Prosource BID. On Ensure pudding daily and magic cup daily. dietary following. Falls: multiple falls at home and during hospital stay. no visible injury. left forearm and wrist xray 01/20/19 negative for fracture. she refused head ct. maintain fall precautions. Opioid dependence: continue oxy 30 q4 and oxycontin 80bid. with close monitoring of mental status. Dispo: requires inpatient admission. discharge once cleared by surgery. fen tolerating po intake electrolytes stable supplements with ensure, prosouce prophy: per surgery, asa 325mg daily code status: full code Visit type - Emergency Visit Emergency Visit: Yes ED Registration Date: 01/12/19 Care time: The patient presented to the Emergency Department on the above date and was hospitalized for further evaluation of their emergent condition. - New Patient This patient is new to me today: No - Critical Care Critical Care patient: No - Discharge Referral Referred to [facility] Med P.C.: No
[2019-01-25] MEDS ORDERED: POLYETHYLENE GLYCOL 3350 119 GM BTL PO PRN (16:32)
[2019-01-25] MEDS: diazePAM 5 MG TABLET PO PRN (21:59)
[2019-01-25] MEDS: diphenhydrAMINE HCL 25 MG CAPSULE (FP) PO PRN (21:59)
[2019-01-26] MEDS: oxyCODONE HCL 5 MG TABLET PO PRN ×6 (00:43→21:21)
[2019-01-26] MEDS: OXYBUTYNIN CHLORIDE 5 MG TABLET PO SCH ×3 (05:41→22:21)
[2019-01-26] MEDS: PREGABALIN 100 MG CAPSULE PO SCH ×3 (05:41→22:21)
[2019-01-26] MEDS: DOCUSATE SODIUM 100 MG CAPSULE (FP) PO SCH ×3 (05:41→22:20)
--- NOTE | 2019-01-26 07:22 | PN ---
Progress Note, Physician Chief Complaint: Left Hip Pain - Current Medication List Current Medications: Active Medications Al Hydroxide/Mg Hydroxide (Mylanta Oral Suspension -) 30 ml PO Q6HPO PRN PRN Reason: DYSPEPSIA Amino Acids (Prosource No Carb Liquid Pkt) 30 ml PO BID@0800,1730 [facility] Last Admin: 01/25/19 17:29 Dose: 30 ml Aspirin (Ecotrin -) 325 mg PO DAILY [facility] Last Admin: 01/25/19 10:25 Dose: 325 mg Cyclobenzaprine HCl (Cyclobenzaprine Hcl) 5 mg PO DAILY [facility] Last Admin: 01/25/19 10:25 Dose: 5 mg Diazepam (Valium -) 5 mg PO HS PRN PRN Reason: ANXIETY Last Admin: 01/25/19 21:59 Dose: 5 mg Diphenhydramine HCl (Benadryl -) 25 mg PO HS PRN PRN Reason: INSOMNIA Last Admin: 01/25/19 21:59 Dose: 25 mg Docusate Sodium (Colace -) 100 mg PO TID [facility] Last Admin: 01/26/19 05:41 Dose: 100 mg Duloxetine HCl (Cymbalta -) 30 mg PO BID [facility] Last Admin: 01/25/19 22:00 Dose: 30 mg Enoxaparin Sodium (Lovenox -) 40 mg SQ DAILY [facility] Last Admin: 01/25/19 10:26 Dose: Not Given Fentanyl (Sublimaze Injection -) 50 mcg IVPUSH [id number] PRN PRN Reason: PAIN-PACU ORDER X 4 DOSES ONLY Ferrous Sulfate (Feosol -) 325 mg PO BIDWM [facility] Last Admin: 01/25/19 17:29 Dose: 325 mg Daptomycin 500 mg/ Sodium (Chloride) 50 mls @ 100 mls/hr IVPB DAILY [facility]; Protocol Last Admin: 01/25/19 10:26 Dose: 100 mls/hr Ertapenem 1 gm/ Sodium (Chloride) 50 mls @ 100 mls/hr IVPB DAILY [facility] Last Admin: 01/25/19 10:26 Dose: 100 mls/hr Lactated Ringer's (Lactated Ringers Solution) 1,000 mls @ 125 mls/hr IV ASDIR [facility] Last Admin: 01/24/19 16:48 Dose: Not Given Lisinopril (Prinivil) 10 mg PO DAILY [facility] Last Admin: 01/25/19 10:25 Dose: 10 mg Miconazole Nitrate (Monistat Topical Cream -) 1 applic TP BID [facility] Last Admin: 01/25/19 22:00 Dose: 1 applic Ondansetron HCl (Zofran Injection) 4 mg IVPUSH Q6H PRN PRN Reason: NAUSEA AND/OR VOMITING Oxybutynin Chloride (Ditropan -) 5 mg PO TID [facility] Last Admin: 01/26/19 05:41 Dose: 5 mg Oxycodone HCl (Roxicodone -) 30 mg PO Q4H PRN PRN Reason: PAIN LEVEL 7 - 10 Last Admin: 01/26/19 05:41 Dose: 30 mg Oxycodone HCl (Oxycontin -) 80 mg PO BID [facility] Last Admin: 01/25/19 22:00 Dose: 80 mg Pantoprazole Sodium (Protonix -) 40 mg PO DAILY [facility] Last Admin: 01/25/19 10:25 Dose: 40 mg Polyethylene Glycol (Miralax (For Daily Use) -) 17 gm PO DAILY PRN PRN Reason: CONSTIPATION Pregabalin (Lyrica -) 100 mg PO TID [facility] Last Admin: 01/26/19 05:41 Dose: 100 mg Promethazine HCl (Phenergan Injection -) 12.5 mg IVPB Q6H PRN PRN Reason: NAUSEA-FOR RESCUE AFTER 15 MIN Senna (Senna -) 2 tab PO HS PRN PRN Reason: CONSTIPATION Senna (Senna -) 1 tab PO BID [facility] Last Admin: 01/25/19 21:59 Dose: 1 tab Simethicone (Mylicon Liquid -) 40 mg PO Q6H PRN PRN Reason: INDIGESTION - Objective Vital Signs: Vital Signs Temperature 97.8 F 01/26/19 06:11 Pulse Rate 84 01/26/19 06:11 Respiratory Rate 18 01/26/19 06:11 Blood Pressure 110/42 L 01/26/19 06:11 O2 Sat by Pulse Oximetry (%) 100 01/25/19 21:00 Middle aged F not in distress HEENT: Mm moist, no anemia, PERRLA EOMI NECK: No JVD No Bruit CHEST: CTA B/L CVS: S1S2 R no m/g/r ABD: No distention, epigastric Tenderness , mild rebound no gaurding, BS + EXT: Left Hip s/p surgery wound vac at place [employer]: AOX3 non focal Labs: CBC, BMP 01/25/19 06:00 01/25/19 06:00 INR, PTT INR 0.98 (0.83-1.09) 01/22/19 10:50 Problem List - Problems (1) Wound, open, hip or thigh Assessment/Plan: Multiple Hip surgery and wash after infected Left AMA prosthetic Hip now implant is removed , preciously left home after prolonged Hospitalization, readmitted with fever Left hip pain and discharged underwent I and D on IV abx Ertapenam and Daptomycin , cont same and wound care. Code(s): LWN2054 - (2) HTN (hypertension) Assessment/Plan: Well controlled on Current meds Code(s): I10 - ESSENTIAL (PRIMARY) HYPERTENSION (3) Depression Assessment/Plan: Cont all home meds Code(s): F32.9 - MAJOR DEPRESSIVE DISORDER, SINGLE EPISODE, UNSPECIFIED (4) Anemia Assessment/Plan: Chronic due to chronic disease and surgeries H/H is stable Code(s): D64.9 - ANEMIA, UNSPECIFIED (5) Severe malnutrition Assessment/Plan: on PTN , high protein diet. Code(s): E43 - UNSPECIFIED SEVERE PROTEIN-CALORIE MALNUTRITION (6) Eosinophilia Assessment/Plan: Recurrent will F/U with Hematology in am. Code(s): D72.1 - EOSINOPHILIA
[2019-01-26] MEDS: LACTATED RINGERS SOLUTION 1,000 ML IV SCH ×2 (08:56→16:56)
[2019-01-26] MEDS ORDERED: PT OWN MED DRAWER 7, Y5N ONE (09:01)
[2019-01-26] MEDS: PANTOPRAZOLE 40 MG TABLET (FP) PO SCH (09:03)
[2019-01-26] MEDS: AMINO ACIDS/PROTEIN HYDROLYS 30 ML LIQUID.PKT PO SCH ×2 (09:03→17:14)
[2019-01-26] MEDS: ASPIRIN 325 MG ENTERIC COATED TABLET (FP) PO SCH (09:03)
[2019-01-26] MEDS: MICONAZOLE NITRATE 14 GM/TUBE TUBE TP SCH ×2 (09:03→22:24)
[2019-01-26] MEDS: DULoxetine HCL 30 MG CAPSULE.DR (FP) PO SCH ×2 (09:03→22:20)
[2019-01-26] MEDS: FERROUS SO4 325 MG TABLET (FP) PO SCH ×2 (09:03→17:14)
[2019-01-26] MEDS: CYCLOBENZAPRINE HCL 5 MG TABLET PO SCH (09:03)
[2019-01-26] MEDS: LISINOPRIL 10 MG TABLET (FP) PO SCH (09:03)
[2019-01-26] MEDS: SENNOSIDES 8.6MG TABLET (FP) PO SCH ×2 (09:09→22:21)
[2019-01-26] MEDS: ENOXAPARIN NA (PORCINE) 40 MG/0.4 ML DISP.SYRIN SQ SCH (09:09)
[2019-01-26] MEDS: ERTAPENEM SODIUM 1 GM in SODIUM CHLORIDE 50 ML IVPB SCH (11:17)
[2019-01-26] MEDS: oxyCODONE HCL 40 MG SUSTAINED ACTING TABLET PO SCH ×2 (11:17→22:21)
[2019-01-26] MEDS: DAPTOMYCIN 500 MG in SODIUM CHLORIDE 50 ML IVPB SCH (11:37)
[2019-01-26] MEDS: diazePAM 5 MG TABLET PO PRN (22:21)
[2019-01-26] MEDS: diphenhydrAMINE HCL 25 MG CAPSULE (FP) PO PRN (22:21)
[2019-01-27] MEDS: oxyCODONE HCL 5 MG TABLET PO PRN ×5 (01:26→20:28)
[2019-01-27] MEDS: DOCUSATE SODIUM 100 MG CAPSULE (FP) PO SCH ×3 (05:54→22:00)
[2019-01-27] MEDS: PREGABALIN 100 MG CAPSULE PO SCH ×2 (05:54→14:22)
[2019-01-27] MEDS: OXYBUTYNIN CHLORIDE 5 MG TABLET PO SCH ×2 (05:54→14:22)
[2019-01-27 07:40] LABS: EOS % 24.2 % (0-4.5); HEMATOCRIT 32.5 % (32.4-45.2); HEMOGLOBIN 10.5 GM/dL (10.7-15.3); LYMPH % 20.5 % (8-40); MCH 25.2 pg (25.7-33.7); MCHC 32.2 g/dl (32.0-36.0); MEAN CELL VOLUME 78.3 fl (80-96); MEAN PLT VOLUME 7.2 fl (7.5-11.1); MONO % 4.2 % (3.8-10.2); NEUT % 50.1 % (42.8-82.8); PLATELET COUNT 382 K/MM3 (134-434); RBC 4.15 M/mm3 (3.60-5.2); RDW 20.5 % (11.6-15.6); WHITE BLOOD COUNT 9.6 K/mm3 (4.0-10.0)
[2019-01-27 08:05] LABS: CALCIUM 8.6 mg/dL (8.5-10.1); POTASSIUM 4.1 mmol/L (3.5-5.1)
[2019-01-27] MEDS ORDERED: PT OWN MED DRAWER 7, Y5N ONE (09:16)
[2019-01-27] MEDS: ERTAPENEM SODIUM 1 GM in SODIUM CHLORIDE 50 ML IVPB SCH (09:23)
[2019-01-27] MEDS: oxyCODONE HCL 40 MG SUSTAINED ACTING TABLET PO SCH ×2 (09:24→11:01)
[2019-01-27] MEDS: FERROUS SO4 325 MG TABLET (FP) PO SCH (09:24)
[2019-01-27] MEDS: CYCLOBENZAPRINE HCL 5 MG TABLET PO SCH (09:24)
[2019-01-27] MEDS: AMINO ACIDS/PROTEIN HYDROLYS 30 ML LIQUID.PKT PO SCH ×2 (09:24→17:50)
[2019-01-27] MEDS: ENOXAPARIN NA (PORCINE) 40 MG/0.4 ML DISP.SYRIN SQ SCH ×2 (09:24→09:34)
[2019-01-27] MEDS: PANTOPRAZOLE 40 MG TABLET (FP) PO SCH (09:24)
[2019-01-27] MEDS: DULoxetine HCL 30 MG CAPSULE.DR (FP) PO SCH (09:25)
[2019-01-27] MEDS: LISINOPRIL 10 MG TABLET (FP) PO SCH (09:25)
[2019-01-27] MEDS: SENNOSIDES 8.6MG TABLET (FP) PO SCH ×2 (09:26→22:00)
[2019-01-27] MEDS: ASPIRIN 325 MG ENTERIC COATED TABLET (FP) PO SCH (09:26)
[2019-01-27] MEDS: MICONAZOLE NITRATE 14 GM/TUBE TUBE TP SCH (11:05)
[2019-01-27] MEDS: DAPTOMYCIN 500 MG in SODIUM CHLORIDE 50 ML IVPB SCH (11:35)
[2019-01-27 12:39] LABS: ANISOCYTOSIS 1+; MACROCYTOSIS 0; OVALOCYTE 1+; PLATELET ESTIMATE NORMAL; TARGET CELLS 1+
--- NOTE | 2019-01-27 13:32 | CONSULT ---
Consult Consult Specialty:: Hematology Referred by:: Medicine Reason for Consultation:: Eosinophilia - History of Present Illness Chief Complaint: Sepsis History of Present Illness: Patient with complicated prolonged history of sepsis L hip currently admitted for ongoing surgical management and intravenous antibiotics, noted to have worsening eosinophilia, with eosinophil percentage yesterday and today of 23%, AEC circa 2K. Prior less marked eosinophilia (circa 15%) present since early December. Patient denies rash. Denies pruritus. No prior knowledge of hematological abnormalities. No family history of hematological issues. - History Source History Provided By: Medical Record Limitations to Obtaining History: Poor Historian - Alcohol/Substance Use Hx Alcohol Use: No - Smoking History Smoking history: Current every day smoker Have you smoked in the past 12 months: Yes Aproximately how many cigarettes per day: 5 Home Medications - Allergies Allergies/Adverse Reactions: Allergies Allergy/AdvReac Type Severity Reaction Status Date / Time etomidate Allergy Severe Rash Verified 10/08/18 16:03 latex Allergy Severe Rash Verified 10/08/18 16:03 morphine Allergy Severe Rash Verified 10/08/18 16:03 tomato Allergy Verified 01/13/19 09:29 - Home Medications Home Medications: Ambulatory Orders Diazepam [Valium] 5 mg PO HS PRN 08/24/18 Duloxetine HCl [Cymbalta] 30 mg PO BID 08/24/18 Lisinopril 10 mg PO DAILY 08/24/18 Omeprazole 40 mg PO DAILY 08/24/18 Oxybutynin Chloride 5 mg PO TID 08/24/18 Oxycodone HCl 30 mg PO ASDIR PRN 08/24/18 Pregabalin [Lyrica] 100 mg PO TID 08/24/18 Aspirin [Aspirin EC] 325 mg PO DAILY 09/12/18 Amino Acids/Protein Hydrolys [Prosource No Carb Liquid Pkt] 30 ml PO BID@0800, 1730 packet 01/03/19 Cyclobenzaprine HCl 5 mg PO DAILY tablet 01/03/19 Daptomycin [Cubicin (Restricted To Id) -] 500 mg IVPB DAILY@1730 vial Diphenhydramine HCl [Benadryl Capsule -] 25 mg PO HS PRN capsule 01/03/19 Docusate Sodium [Colace -] 100 mg PO TID capsule 01/03/19 Ertapenem Sodium [Invanz -] 1 gm IVPB DAILY vial 01/03/19 Mag Hydrox/Al Hydrox/Simeth [Mylanta Oral Suspension -] 30 ml PO Q6HPO PRN cup 01/03/19 Polyethylene Glycol 3350 [Miralax 119 gm Btl -] 17 gm PO DAILY bottle 01/03/19 Sennosides [Senna -] 2 tab PO HS PRN tablet 01/03/19 Ferrous Sulfate [Feosol] 325 mg PO BIDWM ud 01/04/19 Simethicone Liquid [Mylicon Liquid -] 40 mg PO Q6H PRN ml 01/04/19 oxyCODONE SR [Oxycontin] 80 mg PO BID #0 tab-cap MDD 2 01/04/19 Review of Systems - Review of Systems Constitutional: denies: Fever, Loss of Appetite Gastrointestinal: reports: Other (Reports pain from hemorrhoids) Musculoskeletal: reports: Joint Pain Integumentary: denies: Eczema, Erythema, Pruritis, Rash Neurological: reports: No Symptoms Hematology/Lymphatic: denies: Easily Bruised, Excessive Bleeding Physical Exam Vital Signs: Vital Signs Temperature 98.2 F 01/27/19 10:00 Pulse Rate 88 01/27/19 10:00 Respiratory Rate 18 01/27/19 10:00 Blood Pressure 128/72 01/27/19 10:00 O2 Sat by Pulse Oximetry (%) 98 01/27/19 08:48 Constitutional: Yes: Well Nourished, Calm Eyes: Yes: Conjunctiva Clear HENT: Yes: Normocephalic Neck: Yes: Trachea Midline. No: Lymphadenopathy Cardiovascular: Yes: Regular Rate and Rhythm Respiratory: Yes: Regular, CTA Bilaterally Gastrointestinal: Yes: Normal Bowel Sounds Integumentary: No: Rash Wound/Incision: Yes: Other (Woundvac dressing L hip) Neurological: Yes: Oriented, Other (Drowsy but rousable) Labs: CBC, BMP 01/27/19 07:00 01/27/19 07:00 Assessment/Plan Relative eosinophilia since early December, first noted at the time when she started therapy with ertapenem and daptomycin. Strongsuspicion that this is a non-specific drug reaction. Since there doesn't seem to be any other allergic manifestations see no reason to discontinue these antibiotic if both are deemed necessary. Would expect eosinophilia to resolve after antibiotic discontinued - of not then will require further workup. Today's peripheral smear reviewed - appears that the [employer] counter (and [employer]) is mistakenly identifying hypergranular neutrophils as eosinophils - corrected eosinophil percentage today is approximately 10%. Patient has anemia of chronic disease - no role for oral iron - discontinue.
--- NOTE | 2019-01-27 17:14 | PN ---
Physical Exam: SUBJECTIVE: Patient seen and examined. She reports diarrhea improving. OBJECTIVE: Vital Signs Period Temp Pulse Resp BP Sys/Vargas Pulse Ox Last 24 Hr 97.3 F-98.8 F 86-107 18-18 124-139/72-90 98-98 GENERAL: The patient is awake, alert, and fully oriented, in no acute distress. LUNGS: Breath sounds equal, clear to auscultation bilaterally, no wheezes, no crackles, no accessory muscle use. HEART: Regular rate and rhythm, S1, S2 without murmur, rub or gallop. ABDOMEN: Soft, nontender, nondistended, normoactive bowel sounds, no guarding, no rebound, no hepatosplenomegaly, no masses. EXTREMITIES: 2+ pulses, warm, well-perfused, trace edema, VAC on left hip Laboratory Results - last 24 hr 01/27/19 01/27/19 07:00 07:00 WBC 9.6 RBC 4.15 Hgb 10.5 L Hct 32.5 MCV 78.3 L MCH 25.2 L MCHC 32.2 RDW 20.5 H Plt Count 382 D MPV 7.2 L Absolute Neuts (auto) 4.8 Neutrophils % 50.1 Neutrophils % (Manual) 53.5 Band Neutrophils % 0.0 Lymphocytes % 20.5 Lymphocytes % (Manual) 31.7 D Monocytes % 4.2 Monocytes % (Manual) 6 Eosinophils % 24.2 H* Eosinophils % (Manual) 8.9 H D Basophils % 1.0 Basophils % (Manual) 0.0 Myelocytes % (Man) 0 Promyelocytes % (Man) 0 Blast Cells % (Manual) 0 Nucleated RBC % 0 Metamyelocytes 0 Hypochromia 0 Platelet Estimate Normal Platelet Comment Present Polychromasia 1+ Poikilocytosis 2+ Anisocytosis 1+ Microcytosis 1+ Macrocytosis 0 Spherocytes 2+ Target Cells 1+ Ovalocytes 1+ Sodium 141 Potassium 4.1 Chloride 108 H Carbon Dioxide 27 Anion Gap 5 L BUN 20 H Creatinine 1.0 Est GFR (CKD-EPI)AfAm 69.44 Est GFR (CKD-EPI)NonAf 59.91 Random Glucose 103 Calcium 8.6 Active Medications Generic Name Dose Route Start Last Admin Trade Name Freq PRN Reason Stop Dose Admin Al Hydroxide/Mg Hydroxide 30 ml 01/23/19 16:57 Mylanta Oral Suspension - PO Q6HPO PRN DYSPEPSIA Amino Acids 30 ml 01/23/19 17:30 01/27/19 09:24 Prosource No Carb Liquid Pkt PO 30 ml BID@0800,1730 ELKE Administration Aspirin 325 mg 01/24/19 10:00 01/27/19 09:26 Ecotrin - PO 325 mg DAILY [facility]KE Administration Cyclobenzaprine HCl 5 mg 01/24/19 10:00 01/27/19 09:24 Cyclobenzaprine Hcl PO 5 mg DAILY [facility]KE Administration Diazepam 5 mg 01/23/19 16:57 01/26/19 22:21 Valium - PO 5 mg HS PRN Administration ANXIETY Diphenhydramine HCl 25 mg 01/23/19 16:57 01/26/19 22:21 Benadryl - PO 25 mg HS PRN Administration INSOMNIA Docusate Sodium 100 mg 01/23/19 22:00 01/27/19 14:22 Colace - PO 100 mg TID ELKE Administration Duloxetine HCl 30 mg 01/23/19 22:00 01/27/19 09:25 Cymbalta - PO 30 mg BID ELKE Administration Enoxaparin Sodium 40 mg 01/24/19 10:00 01/27/19 09:34 Lovenox - SQ Not Given DAILY [facility] Fentanyl 50 mcg 01/23/19 16:57 Sublimaze Injection - IVPUSH [id number] PRN PAIN-PACU ORDER X 4 DOSES ONLY Daptomycin 500 mg/ Sodium 50 mls @ 100 mls/hr 01/24/19 10:00 01/27/19 11:35 Chloride IVPB 100 mls/hr DAILY [facility]KE Administration Protocol Ertapenem 1 gm/ Sodium 50 mls @ 100 mls/hr 01/24/19 10:00 01/27/19 09:23 Chloride IVPB 100 mls/hr DAILY [facility]KE Administration Lactated Ringer's 1,000 mls @ 125 mls/hr 01/23/19 16:57 01/26/19 16:56 Lactated Ringers Solution IV Not Given ASDIR ELKE Lisinopril 10 mg 01/24/19 10:00 01/27/19 09:25 Prinivil PO 10 mg DAILY [facility]KE Administration Miconazole Nitrate 1 applic 01/23/19 22:00 01/27/19 11:05 Monistat Topical Cream - TP 1 applic BID ELKE Administration Ondansetron HCl 4 mg 01/23/19 16:57 Zofran Injection IVPUSH Q6H PRN NAUSEA AND/OR VOMITING Oxybutynin Chloride 5 mg 01/23/19 22:00 01/27/19 14:22 Ditropan - PO 5 mg TID ELKE Administration Oxycodone HCl 30 mg 01/23/19 16:57 01/27/19 14:22 Roxicodone - PO 30 mg Q4H PRN Administration PAIN LEVEL 7 - 10 Oxycodone HCl 80 mg 01/23/19 22:00 01/27/19 11:01 Oxycontin - PO 80 mg BID ELKE Administration Pantoprazole Sodium 40 mg 01/24/19 10:00 01/27/19 09:24 Protonix - PO 40 mg DAILY [facility]KE Administration Polyethylene Glycol 17 gm 01/25/19 16:32 Miralax (For Daily Use) - PO DAILY PRN CONSTIPATION Pregabalin 100 mg 01/23/19 22:00 01/27/19 14:22 Lyrica - PO 100 mg TID ELKE Administration Promethazine HCl 12.5 mg 01/23/19 16:57 Phenergan Injection - IVPB Q6H PRN NAUSEA-FOR RESCUE AFTER 15 MIN Senna 2 tab 01/23/19 16:57 Senna - PO HS PRN CONSTIPATION Senna 1 tab 01/23/19 22:00 01/27/19 09:26 Senna - PO 1 tab BID ELKE Administration Simethicone 40 mg 01/23/19 16:57 Mylicon Liquid - PO Q6H PRN INDIGESTION ASSESSMENT/PLAN: This is a 63 year old woman with a history of HTN, depression, anxiety, chronic back pain, urinary incontinence, chronic left hip wound who presented to the ED for further treatment of her left hip wound. 1. 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, recurrent dislocation, chronic instability, and chronic wound - s/p I&D left hip wound; debridement of soft tissue, muscle, bone; VAC application on 11/19 - s/p I&D and washout left hip wound; VAC reapplication on 11/23 - s/p washout left hip wound and VAC reapplication on 11/26 - s/p I&D and debridement left hip wound on 12/03, 12/07 - s/p osteotomy left femur; removal of hardware (explant femoral component); I&D left hip wound; partial removal of cement mantle; exchange left hip wound vac on 12/10 - s/p I&D, wound VAC exchange on 12/17, 12/24, 12/31, 01/07, 01/14, 01/23 - Continue ertapenem, daptomycin x 8 weeks (started 12/14) - Plan for weekly VAC changes - Continue PT 2. Diarrhea - Improving - C. diff ordered - no diarrhea since 3. Eosinophilia - As per hematology, likely allergic reaction to antibiotics, however equipment is identifying hypergranular neutrophils as eosinophils, so manual eosinophil percentage is 8.9% (24.2% by machine) 4. HTN - Continue lisinopril 5. Depression with anxiety - Continue Cymbalta, Valium as needed 6. Anemia secondary to chronic illness - Hemoglobin is stable 7. Urinary incontinence - Continue Ditropan 8. Chronic back and left hip pain - Continue Lyrica, Flexeril, Cymbalta, OxyContin, oxycodone as needed 9. Severe protein calorie malnutrition - Continue Prosource, Ensure, Magic Cup 10. DVT prophylaxis - On aspirin 325 mg daily Visit type - Emergency Visit Emergency Visit: Yes ED Registration Date: 01/12/19 Care time: The patient presented to the Emergency Department on the above date and was hospitalized for further evaluation of their emergent condition. - New Patient This patient is new to me today: Yes Date on this admission: 01/27/19 - Critical Care Critical Care patient: No - Discharge Referral Referred to [facility] Med P.C.: No
[2019-01-27] MEDS: LACTATED RINGERS SOLUTION 1,000 ML IV SCH (17:33)
--- NOTE | 2019-01-28 01:10 | PN ---
Progress Note (short form) - Note Progress Note: NPO, IVF. Hold anticoagulation. Plan for OR today, 01/28/2019, for left hip wound I&D with wound vac exchange VS primary closure. Albert Moya MD (Orthopaedic Surgery).
[2019-01-28] MEDS: oxyCODONE HCL 5 MG TABLET PO PRN ×5 (01:49→22:17)
[2019-01-28] MEDS: oxyCODONE HCL 40 MG SUSTAINED ACTING TABLET PO SCH ×3 (01:50→23:14)
[2019-01-28] MEDS: diphenhydrAMINE HCL 25 MG CAPSULE (FP) PO PRN ×2 (01:50→23:14)
[2019-01-28] MEDS: OXYBUTYNIN CHLORIDE 5 MG TABLET PO SCH ×4 (01:50→22:18)
[2019-01-28] MEDS: DULoxetine HCL 30 MG CAPSULE.DR (FP) PO SCH ×3 (01:50→22:18)
[2019-01-28] MEDS: PREGABALIN 100 MG CAPSULE PO SCH ×4 (01:50→22:18)
[2019-01-28] MEDS: diazePAM 5 MG TABLET PO PRN ×2 (01:50→23:14)
[2019-01-28] MEDS: MICONAZOLE NITRATE 14 GM/TUBE TUBE TP SCH ×3 (01:53→22:18)
[2019-01-28] MEDS: DOCUSATE SODIUM 100 MG CAPSULE (FP) PO SCH ×3 (06:14→22:18)
[2019-01-28 07:48] LABS: BASO % 1.1 % (0-2.0); EOS % 20.7 % (0-4.5); HEMATOCRIT 29.6 % (32.4-45.2); HEMOGLOBIN 9.6 GM/dL (10.7-15.3); LYMPH % 14.8 % (8-40); MCH 25.2 pg (25.7-33.7); MCHC 32.5 g/dl (32.0-36.0); MEAN CELL VOLUME 77.5 fl (80-96); MEAN PLT VOLUME 7.6 fl (7.5-11.1); MONO % 5.1 % (3.8-10.2); NEUT % 58.3 % (42.8-82.8); PLATELET COUNT 325 K/MM3 (134-434); RBC 3.81 M/mm3 (3.60-5.2); RDW 20.2 % (11.6-15.6); WHITE BLOOD COUNT 8.6 K/mm3 (4.0-10.0)
[2019-01-28 08:03] LABS: ALBUMIN 2.8 g/dl (3.4-5.0); BILIRUBIN,TOTAL 0.3 mg/dL (0.2-1); CALCIUM 8.5 mg/dL (8.5-10.1); CREATININE 0.8 mg/dL (0.55-1.3); TOT PROT 6.2 g/dl (6.4-8.2)
[2019-01-28] MEDS ORDERED: PT OWN MED DRAWER 7, Y5N ONE (08:42)
[2019-01-28] MEDS: AMINO ACIDS/PROTEIN HYDROLYS 30 ML LIQUID.PKT PO SCH ×2 (09:49→16:52)
[2019-01-28] MEDS: ERTAPENEM SODIUM 1 GM in SODIUM CHLORIDE 50 ML IVPB SCH (09:59)
[2019-01-28] MEDS: LISINOPRIL 10 MG TABLET (FP) PO SCH (10:00)
[2019-01-28] MEDS: PANTOPRAZOLE 40 MG TABLET (FP) PO SCH (10:00)
[2019-01-28] MEDS: CYCLOBENZAPRINE HCL 5 MG TABLET PO SCH (10:00)
[2019-01-28] MEDS: SENNOSIDES 8.6MG TABLET (FP) PO SCH ×2 (10:18→22:18)
[2019-01-28] MEDS: ENOXAPARIN NA (PORCINE) 40 MG/0.4 ML DISP.SYRIN SQ SCH (10:18)
[2019-01-28] MEDS: ASPIRIN 325 MG ENTERIC COATED TABLET (FP) PO SCH (10:18)
[2019-01-28 11:33] LABS: ANISOCYTOSIS 2+; MACROCYTOSIS 0; OVALOCYTE 1+; PLATELET ESTIMATE NORMAL; TEAR DROP CELLS 1+
--- NOTE | 2019-01-28 11:47 | PN ---
Progress Note, Physician Chief Complaint: left hip wound History of Present Illness: patient sleeping, no acute event overnight, no complaints. - Current Medication List Current Medications: Active Medications Al Hydroxide/Mg Hydroxide (Mylanta Oral Suspension -) 30 ml PO Q6HPO PRN PRN Reason: DYSPEPSIA Amino Acids (Prosource No Carb Liquid Pkt) 30 ml PO BID@0800,1730 [facility] Last Admin: 01/28/19 09:49 Dose: Not Given Aspirin (Ecotrin -) 325 mg PO DAILY [facility] Last Admin: 01/28/19 10:18 Dose: Not Given Cyclobenzaprine HCl (Cyclobenzaprine Hcl) 5 mg PO DAILY [facility] Last Admin: 01/28/19 10:00 Dose: 5 mg Diazepam (Valium -) 5 mg PO HS PRN PRN Reason: ANXIETY Last Admin: 01/28/19 01:50 Dose: 5 mg Diphenhydramine HCl (Benadryl -) 25 mg PO HS PRN PRN Reason: INSOMNIA Last Admin: 01/28/19 01:50 Dose: 25 mg Docusate Sodium (Colace -) 100 mg PO TID [facility] Last Admin: 01/28/19 06:14 Dose: Not Given Duloxetine HCl (Cymbalta -) 30 mg PO BID [facility] Last Admin: 01/28/19 10:00 Dose: 30 mg Enoxaparin Sodium (Lovenox -) 40 mg SQ DAILY [facility] Last Admin: 01/28/19 10:18 Dose: Not Given Fentanyl (Sublimaze Injection -) 50 mcg IVPUSH [id number] PRN PRN Reason: PAIN-PACU ORDER X 4 DOSES ONLY Daptomycin 500 mg/ Sodium (Chloride) 50 mls @ 100 mls/hr IVPB DAILY [facility]; Protocol Last Admin: 01/27/19 11:35 Dose: 100 mls/hr Ertapenem 1 gm/ Sodium (Chloride) 50 mls @ 100 mls/hr IVPB DAILY [facility] Last Admin: 01/28/19 09:59 Dose: 100 mls/hr Lactated Ringer's (Lactated Ringers Solution) 1,000 mls @ 125 mls/hr IV ASDIR [facility] Last Admin: 01/27/19 17:33 Dose: Not Given Lisinopril (Prinivil) 10 mg PO DAILY [facility] Last Admin: 01/28/19 10:00 Dose: 10 mg Miconazole Nitrate (Monistat Topical Cream -) 1 applic TP BID [facility] Last Admin: 01/28/19 10:01 Dose: 1 applic Ondansetron HCl (Zofran Injection) 4 mg IVPUSH Q6H PRN PRN Reason: NAUSEA AND/OR VOMITING Oxybutynin Chloride (Ditropan -) 5 mg PO TID [facility] Last Admin: 01/28/19 05:50 Dose: 5 mg Oxycodone HCl (Roxicodone -) 30 mg PO Q4H PRN PRN Reason: PAIN LEVEL 7 - 10 Last Admin: 01/28/19 10:08 Dose: 30 mg Oxycodone HCl (Oxycontin -) 80 mg PO BID [facility] Last Admin: 01/28/19 01:50 Dose: 80 mg Pantoprazole Sodium (Protonix -) 40 mg PO DAILY [facility] Last Admin: 01/28/19 10:00 Dose: 40 mg Polyethylene Glycol (Miralax (For Daily Use) -) 17 gm PO DAILY PRN PRN Reason: CONSTIPATION Pregabalin (Lyrica -) 100 mg PO TID [facility] Last Admin: 01/28/19 05:50 Dose: 100 mg Promethazine HCl (Phenergan Injection -) 12.5 mg IVPB Q6H PRN PRN Reason: NAUSEA-FOR RESCUE AFTER 15 MIN Senna (Senna -) 2 tab PO HS PRN PRN Reason: CONSTIPATION Senna (Senna -) 1 tab PO BID [facility] Last Admin: 01/28/19 10:18 Dose: Not Given Simethicone (Mylicon Liquid -) 40 mg PO Q6H PRN PRN Reason: INDIGESTION - Objective Vital Signs: Vital Signs Temperature 98.0 F 01/28/19 05:45 Pulse Rate 103 H 01/28/19 05:45 Respiratory Rate 20 01/28/19 08:25 Blood Pressure 108/61 01/28/19 05:45 O2 Sat by Pulse Oximetry (%) 94 L 01/28/19 08:25 Constitutional: Yes: Well Nourished, No Distress, Calm Cardiovascular: Yes: WNL, Regular Rate and Rhythm Respiratory: Yes: WNL, Regular, CTA Bilaterally. No: Accessory Muscle Use Gastrointestinal: Yes: WNL, Normal Bowel Sounds, Soft Musculoskeletal: Yes: Other (left hip wound VAC). No: Joint Stiffness, Joint Swelling Edema: No Peripheral Pulses WNL: Yes ...Motor Strength: WNL Labs: CBC, BMP 01/28/19 06:30 01/28/19 06:30 INR, PTT INR 0.98 (0.83-1.09) 01/22/19 10:50 Problem List - Problems (1) Severe malnutrition Code(s): E43 - UNSPECIFIED SEVERE PROTEIN-CALORIE MALNUTRITION (2) Wound, open, hip or thigh Code(s): TMY5659 - (3) Anemia Code(s): D64.9 - ANEMIA, UNSPECIFIED (4) Chronic pain Code(s): G89.29 - OTHER CHRONIC PAIN (5) Depression Code(s): F32.9 - MAJOR DEPRESSIVE DISORDER, SINGLE EPISODE, UNSPECIFIED (6) HTN (hypertension) Code(s): I10 - ESSENTIAL (PRIMARY) HYPERTENSION Assessment/Plan 63 year old woman with a history of HTN, chronic back pain, chronic left hip wound who presented to the ED for left hip pain and fevers 1. 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 Diarrhea, improved -cdiff pending 3. Eosinophilia -coming down, possible rxn to abx -as per hematology, equipment is identifying hypergranular neutrophils as eosinophils, so falsely elevated 4. HTN -controlled, c/w current meds 5. Depression with anxiety, mood stable -continue Cymbalta, Valium PRN 6. Urinary incontinence -c/w Ditropan 7. Chronic back and left hip pain -on chronic opioids, c/w current regimen -bowel regimen 8. Severe protein/calorie malnourishment -continue Prosource, Ensure, Magic Cup 8. DVT prophylaxis -lovenox
--- NOTE | 2019-01-28 14:04 | PN ---
Progress Note (short form) - Note Progress Note: 63F s/p left hip I&D, and exchange of wound vac dressing POD #0. Left hip wound dimensions: unchanged. No intra-op evidence of wound contamination or active infection. -f/u intra-operative wound culture specimens. -Pain control. -DVT PPx: - Chemical: ASA 81mg PO BID. - Mechanical: SOUTH's, SCD's. -Incentive spirometry. -PT/OT/Rehab, OOB. -NWB LLE. -f/u post-op trial of void - 8 hours max. -f/u AM labs. -Care per medical hospitalist team. -Will plan to continue weekly wound vac dressing changes in the OR due to size/ depth of wound. -Will follow. Albert Moya MD (Orthopaedic Surgery).
[2019-01-28] MEDS ORDERED: MAG HYDROX/AL HYDROX/SIMETH 30 ML UNIT-DOSE CUP PO PRN (15:06)
[2019-01-28] MEDS ORDERED: POLYETHYLENE GLYCOL 3350 119 GM BTL PO PRN (15:06)
[2019-01-28] MEDS ORDERED: SENNOSIDES 8.6MG TABLET (FP) PO PRN (15:06)
[2019-01-28] MEDS ORDERED: SIMETHICONE 40 MG/0.6 ML BOTTLE PO PRN (15:06)
[2019-01-28] MEDS ORDERED: ONDANSETRON 4 MG/2 ML VIAL IVPUSH PRN (15:06)
[2019-01-28] MEDS ORDERED: PROMETHAZINE HCL 25 MG/1 ML VIAL IVPB PRN (15:06)
[2019-01-28] MEDS: LACTATED RINGERS SOLUTION 1,000 ML IV SCH (16:06)
[2019-01-28] MEDS: DAPTOMYCIN 500 MG in SODIUM CHLORIDE 50 ML IVPB SCH (16:51)
[2019-01-29] MEDS: oxyCODONE HCL 5 MG TABLET PO PRN ×5 (03:50→23:26)
[2019-01-29] MEDS: PREGABALIN 100 MG CAPSULE PO SCH ×3 (05:31→21:37)
[2019-01-29] MEDS: OXYBUTYNIN CHLORIDE 5 MG TABLET PO SCH ×3 (05:31→21:37)
[2019-01-29] MEDS: DOCUSATE SODIUM 100 MG CAPSULE (FP) PO SCH ×3 (05:33→21:35)
[2019-01-29 07:18] LABS: BASO % 0.9 % (0-2.0); HEMATOCRIT 31.7 % (32.4-45.2); HEMOGLOBIN 10.1 GM/dL (10.7-15.3); LYMPH % 18.6 % (8-40); MCH 25.1 pg (25.7-33.7); MEAN CELL VOLUME 78.5 fl (80-96); MEAN PLT VOLUME 7.6 fl (7.5-11.1); MONO % 3.8 % (3.8-10.2); NEUT % 56.7 % (42.8-82.8); PLATELET COUNT 351 K/MM3 (134-434); RBC 4.04 M/mm3 (3.60-5.2); RDW 20.6 % (11.6-15.6); WHITE BLOOD COUNT 8.5 K/mm3 (4.0-10.0)
[2019-01-29 07:34] LABS: CALCIUM 8.7 mg/dL (8.5-10.1); CREATININE 0.8 mg/dL (0.55-1.3); POTASSIUM 4.3 mmol/L (3.5-5.1)
--- NOTE | 2019-01-29 08:23 | PN ---
Progress Note (short form) - Note Progress Note: Anesthesia/pain Pt seen and examined S:Alert and awake Comfortable O: Vital Signs Temperature 98.1 F 01/29/19 05:47 Pulse Rate 105 H 01/29/19 05:47 Respiratory Rate 18 01/29/19 05:47 Blood Pressure 124/65 01/29/19 05:47 O2 Sat by Pulse Oximetry (%) 95 01/28/19 21:00 CBC, BMP 01/29/19 06:00 01/29/19 06:00 A/P: Current Active Problems Eosinophilia (Acute) Severe malnutrition (Acute) Urinary incontinence due to immobility (Acute) Wound, open, hip or thigh (Acute) S/P:I and D hip Doing well post op Continue current care Giuliano Santo MD
[2019-01-29] MEDS ORDERED: PT OWN MED DRAWER 7, Y5N ONE ×2 (08:42→09:08)
[2019-01-29] MEDS: AMINO ACIDS/PROTEIN HYDROLYS 30 ML LIQUID.PKT PO SCH ×2 (09:12→17:20)
[2019-01-29] MEDS: DULoxetine HCL 30 MG CAPSULE.DR (FP) PO SCH ×2 (09:19→21:37)
[2019-01-29] MEDS: SENNOSIDES 8.6MG TABLET (FP) PO SCH ×2 (09:20→21:35)
[2019-01-29] MEDS: PANTOPRAZOLE 40 MG TABLET (FP) PO SCH (09:20)
[2019-01-29] MEDS: CYCLOBENZAPRINE HCL 5 MG TABLET PO SCH (09:20)
[2019-01-29] MEDS: ASPIRIN COATED 81 MG TABLET.EC PO SCH ×2 (09:20→21:37)
[2019-01-29] MEDS: oxyCODONE HCL 40 MG SUSTAINED ACTING TABLET PO SCH ×2 (09:21→21:37)
[2019-01-29] MEDS: ENOXAPARIN NA (PORCINE) 40 MG/0.4 ML DISP.SYRIN SQ SCH (09:32)
--- NOTE | 2019-01-29 09:40 | PN ---
Physical Exam: SUBJECTIVE: Patient seen and examined at the bedside. wants to go home OBJECTIVE: per ID, patient needs 8 weeks of iv antibiotics dapto and ertapenum started on 12/14/18 Vital Signs Period Temp Pulse Resp BP Sys/Vargas Pulse Ox Last 24 Hr 97.8 F-98.5 F 84-105 07-06 99-141/55-74 95-100 GENERAL: awake, alert, in no acute distress HEAD: Normal with no signs of trauma. EYES: Pupils equal, round and reactive to light, EARS, NOSE, THROAT: Ears normal, nares patent, oropharynx clear without exudates. Moist mucous membranes. NECK: Normal range of motion, supple without lymphadenopathy, JVD, or masses. ABDOMEN: Soft, nontender, not distended, normoactive bowel sounds, no guarding, MUSCULOSKELETAL: Normal range of motion at all joints. No bony deformities or tenderness. No CVA tenderness. UPPER EXTREMITIES: limited ROM of right upper arm, wrist pain. will xray LOWER EXTREMITIES: left wound vac, bilateral lower ext trace edema. no dvt on doppler NEUROLOGICAL:normal speech SKIN: left hip chronic wound s/p washout with wound vac. Laboratory Results - last 24 hr 01/28/19 01/29/19 01/29/19 06:30 06:00 06:00 WBC 8.5 RBC 4.04 Hgb 10.1 L Hct 31.7 L MCV 78.5 L MCH 25.1 L MCHC 32.0 RDW 20.6 H Plt Count 351 MPV 7.6 Absolute Neuts (auto) 4.8 Neutrophils % 56.7 Neutrophils % (Manual) 51.5 Band Neutrophils % 0.0 Lymphocytes % 18.6 D Lymphocytes % (Manual) 15.5 D Monocytes % 3.8 Monocytes % (Manual) 3 L Eosinophils % 20.0 H Eosinophils % (Manual) 21.7 H D Basophils % 0.9 Basophils % (Manual) 0.0 Myelocytes % (Man) 0 Promyelocytes % (Man) 0 Blast Cells % (Manual) 0 Nucleated RBC % 0 Metamyelocytes 0 Hypochromia 0 Platelet Estimate Normal Polychromasia 1+ Poikilocytosis 1+ Anisocytosis 2+ Microcytosis 0 Macrocytosis 0 Spherocytes 1+ Tear Drop Cells 1+ Ovalocytes 1+ Sodium 144 Potassium 4.3 Chloride 112 H Carbon Dioxide 25 Anion Gap 7 L BUN 20 H Creatinine 0.8 Est GFR (CKD-EPI)AfAm 90.94 Est GFR (CKD-EPI)NonAf 78.46 Random Glucose 86 Calcium 8.7 Active Medications Generic Name Dose Route Start Last Admin Trade Name Freq PRN Reason Stop Dose Admin Al Hydroxide/Mg Hydroxide 30 ml 01/28/19 15:06 Mylanta Oral Suspension - PO Q6HPO PRN DYSPEPSIA Amino Acids 30 ml 01/28/19 17:30 01/29/19 09:12 Prosource No Carb Liquid Pkt PO 30 ml BID@0800,1730 [facility] Administration Aspirin 81 mg 01/29/19 10:00 01/29/19 09:20 Ecotrin - PO 81 mg BID [facility] Administration Cyclobenzaprine HCl 5 mg 01/29/19 10:00 01/29/19 09:20 Cyclobenzaprine Hcl PO 5 mg DAILY [facility] Administration Diazepam 5 mg 01/28/19 15:06 01/28/19 23:14 Valium - PO 5 mg HS PRN Administration ANXIETY Diphenhydramine HCl 25 mg 01/28/19 15:06 01/28/19 23:14 Benadryl - PO 25 mg HS PRN Administration INSOMNIA Docusate Sodium 100 mg 01/28/19 22:00 01/29/19 05:33 Colace - PO 100 mg TID [facility] Administration Duloxetine HCl 30 mg 01/28/19 22:00 01/29/19 09:19 Cymbalta - PO 30 mg BID [facility] Administration Enoxaparin Sodium 40 mg 01/29/19 10:00 01/29/19 09:32 Lovenox - SQ Not Given DAILY [facility] Fentanyl 50 mcg 01/28/19 15:06 Sublimaze Injection - IVPUSH [id number] PRN PAIN-PACU ORDER X 4 DOSES ONLY Daptomycin 500 mg/ Sodium 50 mls @ 100 mls/hr 01/29/19 10:00 Chloride IVPB DAILY [facility] Protocol Ertapenem 1 gm/ Sodium 50 mls @ 100 mls/hr 01/29/19 10:00 01/29/19 09:24 Chloride IVPB 100 mls/hr DAILY [facility] Administration Lactated Ringer's 1,000 mls @ 125 mls/hr 01/28/19 15:06 01/28/19 16:06 Lactated Ringers Solution IV 0 mls ASDIR [facility] Administration Lisinopril 10 mg 01/29/19 10:00 Prinivil PO DAILY [facility] Miconazole Nitrate 1 applic 01/28/19 22:00 01/28/19 22:18 Monistat Topical Cream - TP 1 applic BID [facility] Administration Ondansetron HCl 4 mg 01/28/19 15:06 Zofran Injection IVPUSH Q6H PRN NAUSEA AND/OR VOMITING Oxybutynin Chloride 5 mg 01/28/19 22:00 01/29/19 05:31 Ditropan - PO 5 mg TID [facility] Administration Oxycodone HCl 30 mg 01/28/19 15:06 01/29/19 03:50 Roxicodone - PO 30 mg Q4H PRN Administration PAIN LEVEL 7 - 10 Oxycodone HCl 80 mg 01/28/19 22:00 01/29/19 09:21 Oxycontin - PO 80 mg BID [facility] Administration Pantoprazole Sodium 40 mg 01/29/19 10:00 01/29/19 09:20 Protonix - PO 40 mg DAILY [facility] Administration Polyethylene Glycol 17 gm 01/28/19 15:06 Miralax (For Daily Use) - PO DAILY PRN CONSTIPATION Pregabalin 100 mg 01/28/19 22:00 01/29/19 05:31 Lyrica - PO 100 mg TID [facility] Administration Promethazine HCl 12.5 mg 01/28/19 15:06 Phenergan Injection - IVPB Q6H PRN NAUSEA-FOR RESCUE AFTER 15 MIN Senna 2 tab 01/28/19 15:06 Senna - PO HS PRN CONSTIPATION Senna 1 tab 01/28/19 22:00 01/29/19 09:20 Senna - PO Not Given BID [facility] Simethicone 40 mg 01/28/19 15:06 Mylicon Liquid - PO Q6H PRN INDIGESTION ASSESSMENT/PLAN: Patient is a 63 year old female with a significant past medical history of hypertension, anxiety, depression, chronic pain and chronic left hip left wound. who has undergone left hip debridement of soft tissue, muscle, bone, VAC application, multiple I and D wound washes, s/p osteotomy left femur, removal of hardware (explant femoral component), I&D left hip wound; hardware removed by surgery. Surgery: s/p left wound washout/vac placement on 01/28. Follow up care per surgery team. On Daptomycin 500mg daily and Ertapenem 1 gram daily as per ID for minimum 8 weeks (started on 12/14/18, will need 8 weeks total >through february 07) via tunneled catheter placed at [facility] on 12/19/18. incentive spirometer, bowel regimen. hypertension: controlled on lisinopril 10mg daily Depression, chronic. Continue Cymbalta and Valium as needed. Anemia. monitor with daily labs. no need for iron therapy per heme. Urinary incontinence: Continue oxybutynin. no retention of urine. Severe Malnutrition: On a regular diet, on Prosource BID. On Ensure pudding daily and magic cup daily. dietary following. Falls: multiple falls at home and during hospital stay. no visible injury. left forearm and wrist xray 01/20/19 negative for fracture. she refused head ct. maintain fall precautions. Opioid dependence: continue oxy 30 q4 and oxycontin 80bid. with close monitoring of mental status. Diarrhea: improved. cdiff pending Eosinophilia: possible 2/2 to antibiotics. as per hematology, equipment is identifying hypergranular neutrophils as eosinophils, so falsely elevated Dispo: requires inpatient admission. discharge once cleared by surgery. fen tolerating po intake electrolytes stable supplements with ensure, prosouce prophy: per surgery, asa 81mg bid code status: full code Visit type - Emergency Visit Emergency Visit: Yes ED Registration Date: 01/12/19 Care time: The patient presented to the Emergency Department on the above date and was hospitalized for further evaluation of their emergent condition. - New Patient This patient is new to me today: No - Critical Care Critical Care patient: No - Discharge Referral Referred to [facility] Med P.C.: No
[2019-01-29] MEDS ORDERED: DAPTOMYCIN 500 MG in SODIUM CHLORIDE 50 ML IVPB SCH (10:00)
[2019-01-29] MEDS ORDERED: ASPIRIN 325 MG ENTERIC COATED TABLET (FP) PO SCH (10:00)
[2019-01-29] MEDS ORDERED: ERTAPENEM SODIUM 1 GM in SODIUM CHLORIDE 50 ML IVPB SCH (10:00)
--- NOTE | 2019-01-29 10:12 | OP ---
DATE OF OPERATION: SURGEON: Albert Moya MD PREOPERATIVE DIAGNOSIS: Chronic septic wound with full wound vacuum-assisted closure change. POSTOPERATIVE DIAGNOSIS: Chronic septic wound with full wound vacuum-assisted closure change. OPERATION PERFORMED: Left incision and drainage, washout, wound cultures, and debridement of wound and associated insertion of new wound vacuum-assisted closure. ANESTHESIA: General. ANTIBIOTICS GIVEN: No. OPERATION IN DETAIL: The patient was correctly identified, brought into the operating room. Time-out was called. Patient placed in lateral decubitus position, left side up. A U Drape was applied. The skin was cleansed with Betadine scrub solution, wiped with alcohol, DuraPrep applied. The original wound VAC sponges were removed. Cultures were taken from the deep wound for bacteriology specimen. The tissues appear fibrotic and more pale as the granulation tissue matures. There is to much induration to achieve a delayed primary closure. The wound was washed out with normal saline, and a new wound VAC applied and sealed appropriately with a suction device appropriately occurring. As I inspect this wound today, it is becoming more apparent that I think the only way I will be able to achieve facilitative closure will be transfer of the muscle bit of remaining gluteus randy or hamstring muscles from back of the thigh into the deep space. This will be planned and discussed with the plastic surgeon. Albert Moya MD [id number] MTDD
[2019-01-29 10:31] LABS: ANISOCYTOSIS 1+; MACROCYTOSIS 0; PLATELET ESTIMATE NORMAL; TEAR DROP CELLS 1+
[2019-01-29] MEDS: MICONAZOLE NITRATE 14 GM/TUBE TUBE TP SCH ×2 (10:46→21:38)
[2019-01-29] MEDS: LISINOPRIL 10 MG TABLET (FP) PO SCH (11:42)
--- NOTE | 2019-01-29 15:43 | PN ---
Progress Note (short form) - Note Progress Note: weight gain eosinophlia noted now with loose stools every time she eats now day #46 of antibiotics multiple operative cultures are negative Vital Signs Period Temp Pulse Resp BP Sys/Vargas Pulse Ox Last 24 Hr 97.9 F-98.5 F 84-113 16-19 105-141/53-82 95-100 cor-rrr lungs clear abd soft, nt ext no edema +vac CBC, BMP 01/29/19 06:00 01/29/19 06:00 Microbiology 01/28/19 15:01 Hip - Left Gram Stain - Final 01/28/19 02:10 Stool Clostridioides difficile (PCR) - Preliminary 01/23/19 13:42 Hip - Left Gram Stain - Final 01/23/19 13:42 Hip - Left Wound Culture - Final NO GROWTH AFTER 48 HOURS INCUBATION 01/23/19 13:41 Hip - Left Gram Stain - Final 01/23/19 13:41 Hip - Left Wound Culture - Final NO GROWTH AFTER 48 HOURS INCUBATION 01/14/19 14:10 Hip - Left Gram Stain - Final 01/14/19 14:10 Hip - Left Wound Culture - Final NO AEROBIC OR ANAEROBIC GROWTH OBTAINED. 01/14/19 14:08 Hip - Left Gram Stain - Final 01/14/19 14:08 Hip - Left Wound Culture - Final NO GROWTH OF AEROBIC ORGANISMS AFTER 48 HOURS INCUBATION 01/14/19 13:52 Hip - Left Gram Stain - Final 01/14/19 13:52 Hip - Left Wound Culture - Final NO GROWTH OF AEROBIC ORGANISMS AFTER 48 HOURS INCUBATION 01/14/19 13:50 Hip - Left Gram Stain - Final 01/14/19 13:50 Hip - Left Wound Culture - Final NO GROWTH OF AEROBIC ORGANISMS AFTER 48 HOURS INCUBATION a/p now day #46 of iv antibiotics has completed over 6 weeks given diarrhea and eosinophilia and multiple negative operative cultures I think it would be reasonable to d/c her iv antibiotics at this time if cdiff is negative will switch to po amox and minocycline for 2 weeks-meds ordered d/w patient d/w hospitalist
[2019-01-29] MEDS: LACTATED RINGERS SOLUTION 1,000 ML IV SCH (16:34)
[2019-01-29] MEDS: diphenhydrAMINE HCL 25 MG CAPSULE (FP) PO PRN (23:27)
[2019-01-29] MEDS: diazePAM 5 MG TABLET PO PRN (23:27)
[2019-01-30] MEDS: oxyCODONE HCL 5 MG TABLET PO PRN ×4 (04:20→21:50)
[2019-01-30] MEDS: OXYBUTYNIN CHLORIDE 5 MG TABLET PO SCH ×3 (05:40→21:50)
[2019-01-30] MEDS: DOCUSATE SODIUM 100 MG CAPSULE (FP) PO SCH ×3 (05:40→21:41)
[2019-01-30] MEDS: PREGABALIN 100 MG CAPSULE PO SCH ×3 (05:40→23:10)
[2019-01-30 06:43] LABS: BASO % 0.9 % (0-2.0); EOS % 23.9 % (0-4.5); HEMOGLOBIN 9.7 GM/dL (10.7-15.3); LYMPH % 17.9 % (8-40); MCH 25.2 pg (25.7-33.7); MCHC 32.3 g/dl (32.0-36.0); MEAN CELL VOLUME 77.9 fl (80-96); MEAN PLT VOLUME 7.5 fl (7.5-11.1); MONO % 5.5 % (3.8-10.2); NEUT % 51.8 % (42.8-82.8); PLATELET COUNT 310 K/MM3 (134-434); RBC 3.85 M/mm3 (3.60-5.2); RDW 20.2 % (11.6-15.6); WHITE BLOOD COUNT 7.9 K/mm3 (4.0-10.0)
[2019-01-30 07:26] LABS: ALBUMIN 2.7 g/dl (3.4-5.0); BILIRUBIN,TOTAL 0.2 mg/dL (0.2-1); CALCIUM 8.8 mg/dL (8.5-10.1); CREATININE 0.7 mg/dL (0.55-1.3); MAGNESIUM 2.3 mg/dL (1.8-2.4); TOT PROT 6.2 g/dl (6.4-8.2)
[2019-01-30] MEDS: oxyCODONE HCL 40 MG SUSTAINED ACTING TABLET PO SCH ×2 (09:37→23:10)
[2019-01-30] MEDS: AMINO ACIDS/PROTEIN HYDROLYS 30 ML LIQUID.PKT PO SCH ×2 (09:38→17:40)
[2019-01-30] MEDS: PANTOPRAZOLE 40 MG TABLET (FP) PO SCH (09:38)
[2019-01-30] MEDS: ASPIRIN COATED 81 MG TABLET.EC PO SCH ×2 (09:39→21:50)
[2019-01-30] MEDS: DULoxetine HCL 30 MG CAPSULE.DR (FP) PO SCH ×2 (09:39→21:50)
[2019-01-30] MEDS: LISINOPRIL 10 MG TABLET (FP) PO SCH (09:39)
[2019-01-30] MEDS: SENNOSIDES 8.6MG TABLET (FP) PO SCH ×2 (09:40→21:41)
[2019-01-30] MEDS: ENOXAPARIN NA (PORCINE) 40 MG/0.4 ML DISP.SYRIN SQ SCH (09:40)
[2019-01-30] MEDS: MICONAZOLE NITRATE 14 GM/TUBE TUBE TP SCH ×2 (09:42→21:52)
[2019-01-30] MEDS: CYCLOBENZAPRINE HCL 5 MG TABLET PO SCH (09:46)
[2019-01-30 11:03] LABS: ANISOCYTOSIS 1+; MACROCYTOSIS 0; OVALOCYTE 1+; PLATELET ESTIMATE NORMAL
[2019-01-30] MEDS ORDERED: PT OWN MED DRAWER 7, Y5N ONE ×2 (14:15→21:48)
[2019-01-30] MEDS: AMOXICILLIN 500 MG CAPSULE (FP) PO SCH ×2 (14:33→21:50)
[2019-01-30] MEDS: LACTATED RINGERS SOLUTION 1,000 ML IV SCH (15:15)
--- NOTE | 2019-01-30 17:50 | DS ---
Physical Exam: SUBJECTIVE: Patient seen and examined at the bedside. tells me she only had one loose BM today, none since for discharge home. she is eating well and without abdominal pain or nausea. she reports frequent stools, but re assured her that her c diff is negative. TLC removed. patient tolerated procedure well. OBJECTIVE: GENERAL: awake, alert, in no acute distress HEAD: Normal with no signs of trauma. EYES: Pupils equal, round and reactive to light, EARS, NOSE, THROAT: Ears normal, nares patent, oropharynx clear without exudates. Moist mucous membranes. NECK: Normal range of motion, supple without lymphadenopathy, JVD, or masses. ABDOMEN: Soft, nontender, not distended, normoactive bowel sounds, no guarding, MUSCULOSKELETAL: Normal range of motion at all joints. No bony deformities or tenderness. No CVA tenderness. UPPER EXTREMITIES: limited ROM of right upper arm, wrist pain. will xray LOWER EXTREMITIES: left wound vac, bilateral lower ext trace edema. no dvt on doppler NEUROLOGICAL:normal speech SKIN: left hip chronic wound s/p washout with wound vac. Vital Signs Period Temp Pulse Resp BP Sys/Vargas Pulse Ox Last 24 Hr 97.9 F-98.9 F 88-109 16-18 110-150/53-82 97-97 PHYSICAL EXAM LABS Laboratory Results - last 24 hr 01/30/19 01/30/19 06:00 06:00 WBC 7.9 RBC 3.85 Hgb 9.7 L Hct 30.0 L MCV 77.9 L MCH 25.2 L MCHC 32.3 RDW 20.2 H Plt Count 310 MPV 7.5 Absolute Neuts (auto) 4.1 Neutrophils % 51.8 Neutrophils % (Manual) 49.5 Band Neutrophils % 0.0 Lymphocytes % 17.9 Lymphocytes % (Manual) 21.6 D Monocytes % 5.5 Monocytes % (Manual) 5 Eosinophils % 23.9 H* Eosinophils % (Manual) 23.7 H Basophils % 0.9 Basophils % (Manual) 0.0 Myelocytes % (Man) 0 Promyelocytes % (Man) 0 Blast Cells % (Manual) 0 Nucleated RBC % 0 Metamyelocytes 0 Hypochromia 0 Platelet Estimate Normal Polychromasia 0 Poikilocytosis 0 Anisocytosis 1+ Microcytosis 1+ Macrocytosis 0 Ovalocytes 1+ Sodium 139 Potassium 4.0 Chloride 110 H Carbon Dioxide 22 Anion Gap 6 L BUN 18 Creatinine 0.7 Est GFR (CKD-EPI)AfAm 106.87 Est GFR (CKD-EPI)NonAf 92.21 Random Glucose 97 Calcium 8.8 Magnesium 2.3 Total Bilirubin 0.2 AST 21 ALT 21 Alkaline Phosphatase 160 H C-Reactive Protein 1.2 H Total Protein 6.2 L Albumin 2.7 L HOSPITAL COURSE: Date of Admission:01/12/19 Date of Discharge: 01/30/19 Patient is a 63 year old female with a significant past medical history of hypertension, anxiety, depression, chronic pain and chronic left hip left wound. who has undergone left hip debridement of soft tissue, muscle, bone, VAC application, multiple I and D wound washes, s/p osteotomy left femur, removal of hardware (explant femoral component), I&D left hip wound; hardware removed by surgery. Surgery: s/p left wound washout/vac placement on 01/28. further plans for surgery to be done as an outpatient. Follow up care per surgery team. Per ID, stop Daptomycin 500mg daily and Ertapenem 1 gram daily as patient has received 6 weeks of IV therapy. Will need Amoxicillin and Minocycline PO for 2 weeks. hypertension: controlled on lisinopril 10mg daily Depression, chronic. Continue Cymbalta and Valium as needed. Anemia. monitor labs. no need for iron therapy per heme. Urinary incontinence: Continue oxybutynin. no retention of urine. Severe Malnutrition: On a regular diet, on Prosource BID. On Ensure pudding daily and magic cup daily. dietary following. Falls: multiple falls at home and during hospital stay. no visible injury. left forearm and wrist xray 01/20/19 negative for fracture. she refused head ct. maintain fall precautions. Opioid dependence: continue oxy 30 q4 and oxycontin 80bid. with close monitoring of mental status. Diarrhea: improved. cdiff negative. no abdominal pain or nausea, had one episode of loose stools this am., none since. Eosinophilia: possible 2/2 to antibiotics. as per hematology, equipment is identifying hypergranular neutrophils as eosinophils, so falsely elevated. IV dapto and ertapenum stopped on 01/29/2019. Dispo: discharge home with surgery follow up as an outpatient. code status: full code Minutes to complete discharge: 60 Discharge Summary Reason For Visit: OPEN WOUND OF HIP OR THIGH Current Active Problems Eosinophilia (Acute) Severe malnutrition (Acute) Urinary incontinence due to immobility (Acute) Wound, open, hip or thigh (Acute) Condition: Improved - Instructions Diet, Activity, Other Instructions: Mrs Batista You will be discharged home with the following medications Amoxicillin 500mg three times per day. Take at 6am, 2pm and 6pm. and Minocycline for 2 weeks- take twice per day at 6am and 6pm Please follow up with Dr. Moya by calling his office and making an appointment. Disposition: HOME - Home Medications Comprehensive Discharge Medication List: Ambulatory Orders Diazepam [Valium] 5 mg PO HS PRN 08/24/18 Duloxetine HCl [Cymbalta] 30 mg PO BID 08/24/18 Lisinopril 10 mg PO DAILY 08/24/18 Omeprazole 40 mg PO DAILY 08/24/18 Oxybutynin Chloride 5 mg PO TID 08/24/18 Oxycodone HCl 30 mg PO ASDIR PRN 08/24/18 Pregabalin [Lyrica] 100 mg PO TID 08/24/18 Aspirin [Aspirin EC] 325 mg PO DAILY 09/12/18 Amino Acids/Protein Hydrolys [Prosource No Carb Liquid Pkt] 30 ml PO BID@0800, 1730 packet 01/03/19 Cyclobenzaprine HCl 5 mg PO DAILY tablet 01/03/19 Diphenhydramine HCl [Benadryl Capsule -] 25 mg PO HS PRN capsule 01/03/19 Docusate Sodium [Colace -] 100 mg PO TID capsule 01/03/19 Mag Hydrox/Al Hydrox/Simeth [Mylanta Oral Suspension -] 30 ml PO Q6HPO PRN cup 01/03/19 Polyethylene Glycol 3350 [Miralax 119 gm Btl -] 17 gm PO DAILY bottle 01/03/19 Sennosides [Senna -] 2 tab PO HS PRN tablet 01/03/19 Simethicone Liquid [Mylicon Liquid -] 40 mg PO Q6H PRN ml 01/04/19 oxyCODONE SR [Oxycontin] 80 mg PO BID #0 tab-cap MDD 2 01/04/19 Amoxicillin - [Amoxicillin 500mg Capsule -] 500 mg PO TID #42 capsule 01/30/19 Aspirin Coated [Ecotrin -] 81 mg PO BID tablet.ec 01/30/19 Minocycline HCl [Minocin (Non Formulary)] 100 mg PO BID #28 capsule 01/30/19 This patient is new to me today: No Emergency Visit: No Critical Care patient: No - Discharge Referral Referred to [facility] No
[2019-01-30] MEDS: diphenhydrAMINE HCL 25 MG CAPSULE (FP) PO PRN (23:10)
[2019-01-30] MEDS: diazePAM 5 MG TABLET PO PRN (23:10)
[2019-01-31] MEDS: oxyCODONE HCL 5 MG TABLET PO PRN ×6 (01:45→23:54)
[2019-01-31] MEDS: DOCUSATE SODIUM 100 MG CAPSULE (FP) PO SCH ×4 (05:36→21:12)
[2019-01-31] MEDS ORDERED: PT OWN MED DRAWER 7, Y5N ONE ×7 (05:38→21:11)
[2019-01-31] MEDS: OXYBUTYNIN CHLORIDE 5 MG TABLET PO SCH ×3 (05:44→21:12)
[2019-01-31] MEDS: AMOXICILLIN 500 MG CAPSULE (FP) PO SCH ×3 (05:44→21:12)
[2019-01-31] MEDS: PREGABALIN 100 MG CAPSULE PO SCH ×3 (05:44→21:12)
--- NOTE | 2019-01-31 09:30 | PN ---
Physical Exam: SUBJECTIVE: Patient seen and examined at the bedside. eating breakfast, denies abdominal pain or nausea. had 3 loose bms overnight. OBJECTIVE: Vital Signs Period Temp Pulse Resp BP Sys/Vargas Pulse Ox Last 24 Hr 97.8 F-98.4 F 91-109 16-18 109-150/66-82 97 GENERAL: awake, alert, in no acute distress HEAD: Normal with no signs of trauma. EYES: Pupils equal, round and reactive to light, EARS, NOSE, THROAT: Ears normal, nares patent, oropharynx clear without exudates. Moist mucous membranes. NECK: Normal range of motion, supple without lymphadenopathy, JVD, or masses. ABDOMEN: Soft, nontender, not distended, normoactive bowel sounds, no guarding, MUSCULOSKELETAL: Normal range of motion at all joints. No bony deformities or tenderness. No CVA tenderness. UPPER EXTREMITIES: limited ROM of right upper arm, wrist pain. will xray LOWER EXTREMITIES: left wound vac, bilateral lower ext trace edema. no dvt on doppler NEUROLOGICAL:normal speech SKIN: left hip chronic wound s/p washout with wound vac. Laboratory Results - last 24 hr 01/30/19 06:00 Neutrophils % (Manual) 49.5 Band Neutrophils % 0.0 Lymphocytes % (Manual) 21.6 D Monocytes % (Manual) 5 Eosinophils % (Manual) 23.7 H Basophils % (Manual) 0.0 Myelocytes % (Man) 0 Promyelocytes % (Man) 0 Blast Cells % (Manual) 0 Metamyelocytes 0 Hypochromia 0 Platelet Estimate Normal Polychromasia 0 Poikilocytosis 0 Anisocytosis 1+ Microcytosis 1+ Macrocytosis 0 Ovalocytes 1+ Active Medications Generic Name Dose Route Start Last Admin Trade Name Freq PRN Reason Stop Dose Admin Al Hydroxide/Mg Hydroxide 30 ml 01/28/19 15:06 Mylanta Oral Suspension - PO Q6HPO PRN DYSPEPSIA Amino Acids 30 ml 01/28/19 17:30 01/30/19 17:40 Prosource No Carb Liquid Pkt PO 30 ml BID@0800,1730 [facility] Administration Amoxicillin 500 mg 01/30/19 14:00 01/31/19 05:44 Amoxicillin - PO 500 mg TID [facility] Administration Aspirin 81 mg 01/29/19 10:00 01/30/19 21:50 Ecotrin - PO 81 mg BID [facility] Administration Cyclobenzaprine HCl 5 mg 01/29/19 10:00 01/30/19 09:46 Cyclobenzaprine Hcl PO 5 mg DAILY [facility] Administration Diazepam 5 mg 01/28/19 15:06 01/30/19 23:10 Valium - PO 5 mg HS PRN Administration ANXIETY Diphenhydramine HCl 25 mg 01/28/19 15:06 01/30/19 23:10 Benadryl - PO 25 mg HS PRN Administration INSOMNIA Docusate Sodium 100 mg 01/28/19 22:00 01/31/19 05:44 Colace - PO 100 mg TID [facility] Administration Duloxetine HCl 30 mg 01/28/19 22:00 01/30/19 21:50 Cymbalta - PO 30 mg BID [facility] Administration Enoxaparin Sodium 40 mg 01/29/19 10:00 01/30/19 09:40 Lovenox - SQ Not Given DAILY [facility] Fentanyl 50 mcg 01/28/19 15:06 Sublimaze Injection - IVPUSH [id number] PRN PAIN-PACU ORDER X 4 DOSES ONLY Lactated Ringer's 1,000 mls @ 125 mls/hr 01/28/19 15:06 01/30/19 15:15 Lactated Ringers Solution IV Not Given ASDIR [facility] Lisinopril 10 mg 01/29/19 10:00 01/30/19 09:39 Prinivil PO 10 mg DAILY [facility] Administration Miconazole Nitrate 1 applic 01/28/19 22:00 01/30/19 21:52 Monistat Topical Cream - TP 1 applic BID [facility] Administration Minocycline HCl 100 mg 01/31/19 10:00 Minocin (Non Formulary) PO 02/13/19 22:01 BID [facility] Ondansetron HCl 4 mg 01/28/19 15:06 Zofran Injection IVPUSH Q6H PRN NAUSEA AND/OR VOMITING Oxybutynin Chloride 5 mg 01/28/19 22:00 01/31/19 05:44 Ditropan - PO 5 mg TID [facility] Administration Oxycodone HCl 30 mg 01/28/19 15:06 01/31/19 05:44 Roxicodone - PO 30 mg Q4H PRN Administration PAIN LEVEL 7 - 10 Oxycodone HCl 80 mg 01/28/19 22:00 01/30/19 23:10 Oxycontin - PO 80 mg BID [facility] Administration Pantoprazole Sodium 40 mg 01/29/19 10:00 01/30/19 09:38 Protonix - PO 40 mg DAILY [facility] Administration Polyethylene Glycol 17 gm 01/28/19 15:06 Miralax (For Daily Use) - PO DAILY PRN CONSTIPATION Pregabalin 100 mg 01/28/19 22:00 01/31/19 05:44 Lyrica - PO 100 mg TID [facility] Administration Promethazine HCl 12.5 mg 01/28/19 15:06 Phenergan Injection - IVPB Q6H PRN NAUSEA-FOR RESCUE AFTER 15 MIN Senna 2 tab 01/28/19 15:06 Senna - PO HS PRN CONSTIPATION Senna 1 tab 01/28/19 22:00 01/30/19 21:41 Senna - PO Not Given BID [facility] Simethicone 40 mg 01/28/19 15:06 Mylicon Liquid - PO Q6H PRN INDIGESTION ASSESSMENT/PLAN: Patient is a 63 year old female with a significant past medical history of hypertension, anxiety, depression, chronic pain and chronic left hip left wound. who has undergone left hip debridement of soft tissue, muscle, bone, VAC application, multiple I and D wound washes, s/p osteotomy left femur, removal of hardware (explant femoral component), I&D left hip wound; hardware removed by surgery. Surgery: s/p left wound washout/vac placement on 01/28. further plans for surgery to be done as an outpatient. Follow up care per surgery team. Per ID, stop Daptomycin 500mg daily and Ertapenem 1 gram daily as patient has received 6 weeks of IV therapy. Will need Amoxicillin and Minocycline PO for 2 weeks. hypertension: controlled on lisinopril 10mg daily Depression, chronic. Continue Cymbalta and Valium as needed. Anemia. monitor labs as an outpatient. no need for iron therapy per heme. Urinary incontinence: Continue oxybutynin. no retention of urine. Severe Malnutrition: On a regular diet, on Prosource BID. On Ensure pudding daily and magic cup daily. dietary follow up as an outpatient. Falls: multiple falls at home and during hospital stay. no visible injury. left forearm and wrist xray 01/20/19 negative for fracture. she refused head ct. maintain fall precautions. Opioid dependence: continue oxy 30 q4 and oxycontin 80bid. with close monitoring of mental status. Diarrhea: improved. cdiff negative. no abdominal pain or nausea. tolerating diet. Eosinophilia: possible 2/2 to antibiotics. as per hematology, equipment is identifying hypergranular neutrophils as eosinophils, so falsely elevated. IV dapto and ertapenum stopped on 01/29/2019. now on oral antibiotics. repeat hematology labs as an outpatient. Dispo: discharge home with surgery follow up as an outpatient. patient is refusing rehab. code status: full code Visit type - Emergency Visit Emergency Visit: Yes ED Registration Date: 01/12/19 Care time: The patient presented to the Emergency Department on the above date and was hospitalized for further evaluation of their emergent condition. - New Patient This patient is new to me today: No - Critical Care Critical Care patient: No - Discharge Referral Referred to [facility] Med P.C.: No
[2019-01-31] MEDS: AMINO ACIDS/PROTEIN HYDROLYS 30 ML LIQUID.PKT PO SCH ×2 (10:28→18:37)
[2019-01-31] MEDS: PANTOPRAZOLE 40 MG TABLET (FP) PO SCH (10:29)
[2019-01-31] MEDS: ASPIRIN COATED 81 MG TABLET.EC PO SCH ×2 (10:29→21:12)
[2019-01-31] MEDS: DULoxetine HCL 30 MG CAPSULE.DR (FP) PO SCH ×2 (10:29→21:12)
[2019-01-31] MEDS: LISINOPRIL 10 MG TABLET (FP) PO SCH (10:29)
[2019-01-31] MEDS: CYCLOBENZAPRINE HCL 5 MG TABLET PO SCH (10:29)
[2019-01-31] MEDS: SENNOSIDES 8.6MG TABLET (FP) PO SCH ×2 (10:29→21:13)
[2019-01-31] MEDS: MICONAZOLE NITRATE 14 GM/TUBE TUBE TP SCH ×2 (10:30→21:13)
[2019-01-31] MEDS: ENOXAPARIN NA (PORCINE) 40 MG/0.4 ML DISP.SYRIN SQ SCH (10:30)
[2019-01-31] MEDS: oxyCODONE HCL 40 MG SUSTAINED ACTING TABLET PO SCH ×2 (12:11→21:13)
[2019-01-31] MEDS: MINOCYCLINE HCL 100 MG PO SCH ×2 (14:54→21:13)
[2019-01-31] MEDS: LACTATED RINGERS SOLUTION 1,000 ML IV SCH (16:28)
[2019-01-31] MEDS: MICONAZOLE NITRATE 2% VAGINAL CREAM 45 GM TUBE VG SCH (21:13)
[2019-01-31] MEDS: diazePAM 5 MG TABLET PO PRN (23:54)
[2019-01-31] MEDS: diphenhydrAMINE HCL 25 MG CAPSULE (FP) PO PRN (23:54)
[2019-02-01] MEDS ORDERED: PT OWN MED DRAWER 7, Y5N ONE ×2 (05:15→14:24)
[2019-02-01] MEDS: AMOXICILLIN 500 MG CAPSULE (FP) PO SCH ×3 (05:17→21:44)
[2019-02-01] MEDS: oxyCODONE HCL 5 MG TABLET PO PRN ×4 (05:19→21:42)
[2019-02-01] MEDS: DOCUSATE SODIUM 100 MG CAPSULE (FP) PO SCH ×3 (05:19→21:43)
[2019-02-01] MEDS: PREGABALIN 100 MG CAPSULE PO SCH ×3 (05:19→21:44)
[2019-02-01] MEDS: OXYBUTYNIN CHLORIDE 5 MG TABLET PO SCH ×3 (05:19→21:44)
--- NOTE | 2019-02-01 09:53 | PN ---
Physical Exam: SUBJECTIVE: Patient seen and examined at the bedside. OBJECTIVE: discharge pending appeal process Vital Signs Period Temp Pulse Resp BP Sys/Vargas Pulse Ox Last 24 Hr 97.7 F-99.5 F 83-110 16-20 102-156/42-94 96 GENERAL: awake, alert, in no acute distress HEAD: Normal with no signs of trauma. EYES: Pupils equal, round and reactive to light, EARS, NOSE, THROAT: Ears normal, nares patent, oropharynx clear without exudates. Moist mucous membranes. NECK: Normal range of motion, supple without lymphadenopathy, JVD, or masses. ABDOMEN: Soft, nontender, not distended, normoactive bowel sounds, no guarding UPPER EXT: mild right hand edema that improved from this a.m. will doppler to rule out dvt. MUSCULOSKELETAL: Normal range of motion at all joints. No bony deformities or tenderness. No CVA tenderness. LOWER EXTREMITIES: left wound vac, bilateral lower ext trace edema. no dvt on doppler NEUROLOGICAL:normal speech SKIN: left hip chronic wound s/p washout with wound vac. Active Medications Generic Name Dose Route Start Last Admin Trade Name Freq PRN Reason Stop Dose Admin Al Hydroxide/Mg Hydroxide 30 ml 01/28/19 15:06 Mylanta Oral Suspension - PO Q6HPO PRN DYSPEPSIA Amino Acids 30 ml 01/28/19 17:30 01/31/19 18:37 Prosource No Carb Liquid Pkt PO 30 ml BID@0800,1730 [facility] Administration Amoxicillin 500 mg 01/30/19 14:00 02/01/19 05:17 Amoxicillin - PO 500 mg TID [facility] Administration Aspirin 81 mg 01/29/19 10:00 01/31/19 21:12 Ecotrin - PO 81 mg BID [facility] Administration Cyclobenzaprine HCl 5 mg 01/29/19 10:00 01/31/19 10:29 Cyclobenzaprine Hcl PO 5 mg DAILY [facility] Administration Diazepam 5 mg 01/28/19 15:06 01/31/19 23:54 Valium - PO 5 mg HS PRN Administration ANXIETY Diphenhydramine HCl 25 mg 01/28/19 15:06 01/31/19 23:54 Benadryl - PO 25 mg HS PRN Administration INSOMNIA Docusate Sodium 100 mg 01/28/19 22:00 02/01/19 05:19 Colace - PO 100 mg TID [facility] Administration Duloxetine HCl 30 mg 01/28/19 22:00 01/31/19 21:12 Cymbalta - PO 30 mg BID [facility] Administration Enoxaparin Sodium 40 mg 01/29/19 10:00 01/31/19 10:30 Lovenox - SQ Not Given DAILY [facility] Fentanyl 50 mcg 01/28/19 15:06 Sublimaze Injection - IVPUSH [id number] PRN PAIN-PACU ORDER X 4 DOSES ONLY Lactated Ringer's 1,000 mls @ 125 mls/hr 01/28/19 15:06 01/31/19 16:28 Lactated Ringers Solution IV Not Given ASDIR [facility] Lactobacillus Acidophilus 1 tab 02/01/19 10:00 Bacid - PO DAILY [facility] Lisinopril 10 mg 01/29/19 10:00 01/31/19 10:29 Prinivil PO 10 mg DAILY [facility] Administration Miconazole Nitrate 1 applic 01/31/19 10:00 01/31/19 21:13 Monistat Topical Cream - TP 1 applic BID [facility] Administration Miconazole Nitrate 1 applic 01/31/19 22:00 01/31/19 21:13 Monistat-7 Vaginal Cream - VG 02/06/19 22:01 1 applic HS [facility] Administration Minocycline HCl 100 mg 01/31/19 10:00 01/31/19 21:13 Minocin (Non Formulary) PO 02/13/19 22:01 100 mg BID [facility] Administration Ondansetron HCl 4 mg 01/28/19 15:06 Zofran Injection IVPUSH Q6H PRN NAUSEA AND/OR VOMITING Oxybutynin Chloride 5 mg 01/28/19 22:00 02/01/19 05:19 Ditropan - PO 5 mg TID [facility] Administration Oxycodone HCl 30 mg 01/28/19 15:06 02/01/19 05:19 Roxicodone - PO 30 mg Q4H PRN Administration PAIN LEVEL 7 - 10 Oxycodone HCl 80 mg 01/28/19 22:00 01/31/19 21:13 Oxycontin - PO 80 mg BID [facility] Administration Pantoprazole Sodium 40 mg 01/29/19 10:00 01/31/19 10:29 Protonix - PO 40 mg DAILY [facility] Administration Polyethylene Glycol 17 gm 01/28/19 15:06 Miralax (For Daily Use) - PO DAILY PRN CONSTIPATION Pregabalin 100 mg 01/28/19 22:00 02/01/19 05:19 Lyrica - PO 100 mg TID [facility] Administration Promethazine HCl 12.5 mg 01/28/19 15:06 Phenergan Injection - IVPB Q6H PRN NAUSEA-FOR RESCUE AFTER 15 MIN Senna 2 tab 01/28/19 15:06 Senna - PO HS PRN CONSTIPATION Senna 1 tab 01/28/19 22:00 01/31/19 21:13 Senna - PO Not Given BID [facility] Simethicone 40 mg 01/28/19 15:06 Mylicon Liquid - PO Q6H PRN INDIGESTION ASSESSMENT/PLAN: Patient is a 63 year old female with a significant past medical history of hypertension, anxiety, depression, chronic pain and chronic left hip left wound. who has undergone left hip debridement of soft tissue, muscle, bone, VAC application, multiple I and D wound washes, s/p osteotomy left femur, removal of hardware (explant femoral component), I&D left hip wound; hardware removed by surgery. Surgery: s/p left wound washout/vac placement on 01/28. further plans for surgery to be done as an outpatient. Follow up care per surgery team. Per ID, stop Daptomycin 500mg daily and Ertapenem 1 gram daily as patient has received 6 weeks of IV therapy. Will need Amoxicillin and Minocycline PO for 2 weeks started on 01/30/2019. hypertension: controlled on lisinopril 10mg daily Depression, chronic. Continue Cymbalta and Valium as needed. Anemia. monitor labs as an outpatient. no need for iron therapy per hematology. Urinary incontinence: Continue oxybutynin. no retention of urine. Severe Malnutrition: On a regular diet, on Prosource BID. On Ensure pudding daily and magic cup daily. dietary follow up as an outpatient. Falls: multiple falls at home and during hospital stay. no visible injury. right forearm and wrist xray 01/20/19 negative for fracture. she refused head ct. maintain fall precautions. Opioid dependence: continue oxy 30 q4 and oxycontin 80bid. with close monitoring of mental status. Diarrhea: improved. cdiff negative. no abdominal pain or nausea. tolerating diet, eating well. abdomen soft, non distended. Eosinophilia: possible secondary to antibiotic therapy. as per hematology, equipment is identifying hypergranular neutrophils as eosinophils, so falsely elevated. IV dapto and ertapenum stopped on 01/29/2019. now on oral antibiotics (amox and minocycline x 2 weeks) repeat hematology labs as an outpatient. Dispo: discharge home with surgery follow up as an outpatient. patient is refusing rehab, was sent to [facility] on previous admission and she is refusing to go back to rehab. full code Visit type - Emergency Visit Emergency Visit: Yes ED Registration Date: 01/12/19 Care time: The patient presented to the Emergency Department on the above date and was hospitalized for further evaluation of their emergent condition. - New Patient This patient is new to me today: No - Critical Care Critical Care patient: No - Discharge Referral Referred to [facility] Med P.C.: No
[2019-02-01] MEDS: LISINOPRIL 10 MG TABLET (FP) PO SCH (11:04)
[2019-02-01] MEDS: SENNOSIDES 8.6MG TABLET (FP) PO SCH ×2 (11:04→21:43)
[2019-02-01] MEDS: ASPIRIN COATED 81 MG TABLET.EC PO SCH ×2 (11:04→21:44)
[2019-02-01] MEDS: DULoxetine HCL 30 MG CAPSULE.DR (FP) PO SCH ×2 (11:04→21:43)
[2019-02-01] MEDS: LACTOBACILLUS ACIDOPHILUS 1 TABLET PO SCH (11:04)
[2019-02-01] MEDS: PANTOPRAZOLE 40 MG TABLET (FP) PO SCH (11:04)
[2019-02-01] MEDS: AMINO ACIDS/PROTEIN HYDROLYS 30 ML LIQUID.PKT PO SCH ×2 (11:06→18:16)
[2019-02-01] MEDS: ENOXAPARIN NA (PORCINE) 40 MG/0.4 ML DISP.SYRIN SQ SCH (11:07)
[2019-02-01] MEDS: CYCLOBENZAPRINE HCL 5 MG TABLET PO SCH (11:07)
[2019-02-01] MEDS: MICONAZOLE NITRATE 14 GM/TUBE TUBE TP SCH ×2 (11:08→21:45)
[2019-02-01] MEDS: MINOCYCLINE HCL 100 MG PO SCH ×2 (11:08→21:44)
[2019-02-01] MEDS: oxyCODONE HCL 40 MG SUSTAINED ACTING TABLET PO SCH ×2 (12:07→22:52)
[2019-02-01] MEDS: LACTATED RINGERS SOLUTION 1,000 ML IV SCH (18:14)
[2019-02-01] MEDS: MICONAZOLE NITRATE 2% VAGINAL CREAM 45 GM TUBE VG SCH (21:44)
[2019-02-01] MEDS: diazePAM 5 MG TABLET PO PRN (22:53)
[2019-02-01] MEDS: diphenhydrAMINE HCL 25 MG CAPSULE (FP) PO PRN (22:53)
[2019-02-02] MEDS: oxyCODONE HCL 5 MG TABLET PO PRN ×3 (03:00→12:43)
[2019-02-02] MEDS: OXYBUTYNIN CHLORIDE 5 MG TABLET PO SCH ×2 (05:11→13:32)
[2019-02-02] MEDS: DOCUSATE SODIUM 100 MG CAPSULE (FP) PO SCH ×2 (05:11→13:32)
[2019-02-02] MEDS: PREGABALIN 100 MG CAPSULE PO SCH ×2 (05:11→13:32)
[2019-02-02] MEDS: AMOXICILLIN 500 MG CAPSULE (FP) PO SCH ×2 (05:11→13:32)
--- NOTE | 2019-02-02 08:53 | PN ---
Progress Note (short form) - Note Progress Note: Patient to bedischarged and seen in the office next week. Wound vac to continue Plan For plastic surgical consult re muscle flap as secondary wound intension has reached the end of this principle enabling wound coverage
[2019-02-02] MEDS: AMINO ACIDS/PROTEIN HYDROLYS 30 ML LIQUID.PKT PO SCH (09:10)
[2019-02-02] MEDS ORDERED: PT OWN MED DRAWER 7, Y5N ONE ×2 (10:45→13:26)
[2019-02-02] MEDS: DULoxetine HCL 30 MG CAPSULE.DR (FP) PO SCH (10:53)
[2019-02-02] MEDS: LACTOBACILLUS ACIDOPHILUS 1 TABLET PO SCH (10:53)
[2019-02-02] MEDS: CYCLOBENZAPRINE HCL 5 MG TABLET PO SCH (10:53)
[2019-02-02] MEDS: SENNOSIDES 8.6MG TABLET (FP) PO SCH (10:54)
[2019-02-02] MEDS: PANTOPRAZOLE 40 MG TABLET (FP) PO SCH (10:54)
[2019-02-02] MEDS: oxyCODONE HCL 40 MG SUSTAINED ACTING TABLET PO SCH (10:54)
[2019-02-02] MEDS: LISINOPRIL 10 MG TABLET (FP) PO SCH (10:54)
[2019-02-02] MEDS: MINOCYCLINE HCL 100 MG PO SCH (10:54)
[2019-02-02] MEDS: ASPIRIN COATED 81 MG TABLET.EC PO SCH (10:54)
[2019-02-02] MEDS: ENOXAPARIN NA (PORCINE) 40 MG/0.4 ML DISP.SYRIN SQ SCH (11:01)
[2019-02-02] MEDS: MICONAZOLE NITRATE 14 GM/TUBE TUBE TP SCH (11:01)
[2019-02-02 11:42] VITALS: BP 108/70; PULSE 88; TEMP 98.1
== END 2019-02-02 14:10 | disposition home or self-care (01) | DRG 907 ==
LOC: JER 21:41 → JERBED 01-12 01:58 → J4S 01-12 16:35
PROVIDERS: ADMIT Internal Medicine; ATTEND Nurse Practitioner Family
PROC: 2W0PX6Z Change Pressure Dressing on Left Upper Leg (ICD-10-PCS; 2019-01-14)
PROC: 3E1038Z Irrigation of Skin and Mucous Membranes using Irrigating Substance, Percutaneous Approach (ICD-10-PCS; 2019-01-14)
PROC: 0JDM0ZZ Extraction of Left Upper Leg Subcutaneous Tissue and Fascia, Open Approach (ICD-10-PCS; principal; 2019-01-14 12:00)
PROC: 0JDM0ZZ Extraction of Left Upper Leg Subcutaneous Tissue and Fascia, Open Approach (ICD-10-PCS; 2019-01-23)
PROC: 2W0PX6Z Change Pressure Dressing on Left Upper Leg (ICD-10-PCS; 2019-01-23)
PROC: 3E1038Z Irrigation of Skin and Mucous Membranes using Irrigating Substance, Percutaneous Approach (ICD-10-PCS; 2019-01-28)
PROC: 2W0PX6Z Change Pressure Dressing on Left Upper Leg (ICD-10-PCS; 2019-01-28)
DX: L76.82 Other postprocedural complications of skin and subcutaneous tissue (principal); E43 Unspecified severe protein-calorie malnutrition; F11.20 Opioid dependence, uncomplicated; S71.002A Unspecified open wound, left hip, initial encounter; T36.95XA Adverse effect of unspecified systemic antibiotic, initial encounter; R29.6 Repeated falls; Y84.8 Other medical procedures as the cause of abnormal reaction of the patient, or of later complication, without mention of misadventure at the time of the procedure; I10 Essential (primary) hypertension; G89.29 Other chronic pain; F17.210 Nicotine dependence, cigarettes, uncomplicated; Z96.643 Presence of artificial hip joint, bilateral; Z96.611 Presence of right artificial shoulder joint; Z96.612 Presence of left artificial shoulder joint; E88.09 Other disorders of plasma-protein metabolism, not elsewhere classified; D53.9 Nutritional anemia, unspecified; D50.9 Iron deficiency anemia, unspecified; Z68.23 Body mass index [BMI] 23.0-23.9, adult; R39.81 Functional urinary incontinence; R19.7 Diarrhea, unspecified; D63.8 Anemia in other chronic diseases classified elsewhere; F41.8 Other specified anxiety disorders; D72.1 Eosinophilia
CPT/HCPCS: 36415; 73090-TC-RT-FY; 73110-TC-RT-FY; 73130-TC-RT-FY; 80048; 80053; 82308; 82550; 82728; 83540; 83550; 83735; 84100; 84466; 85025; 85027; 85044; 85610; 85651; 86140; 87070; 87205; 87324; 87449; 87493; 93970-TC; 93971; 94760; 99284-25; J0878

== ENCOUNTER 2019-02-25 18:39 | Inpatient (IN) | payer MEDICARE, OTHER ==
--- NOTE | 2019-02-25 19:31 | PN ---
Progress Note (short form) - Note Progress Note: 63F w/chronic left hip around presented to hospital over 1 hour late for left hip wound I&D with revision of wound vac dressing. Pt. presented to hospital lethargic, in altered mental status, with slurred speech. Pt. is not able to safely provide surgical consent in her current state. Admit patient to medical hospitalist service. -NPO at midnight. -Hold all DVT PPx. -Plan for OR tomorrow morning (02/26/2019). Albert Moya MD (Orthopaedic Surgery).
[2019-02-26] MEDS: oxyCODONE HCL 5 MG TABLET PO PRN ×2 (02:35→07:14)
[2019-02-26] MEDS ORDERED: SENNOSIDES 8.6MG TABLET (FP) PO PRN ×2 (02:36→17:58)
[2019-02-26] MEDS ORDERED: MAG HYDROX/AL HYDROX/SIMETH 30 ML UNIT-DOSE CUP PO PRN ×2 (02:38→17:58)
[2019-02-26] MEDS ORDERED: diazePAM 5 MG TABLET PO PRN ×2 (02:42→17:58)
[2019-02-26] MEDS: PREGABALIN 100 MG CAPSULE PO SCH ×3 (07:03→22:52)
[2019-02-26 08:17] LABS: INR 1.08 (0.83-1.09); PROTHROMBIN TIME (PATIENT) 12.7 SEC (9.7-13.0)
[2019-02-26 08:19] LABS: ACTIVATED PTT 31.4 SECONDS (25.2-36.5)
[2019-02-26 08:45] LABS: BLOOD UREA NITROGEN 18.8 mg/dL (7-18); CALCIUM 8.4 mg/dL (8.5-10.1); CREATININE 1.1 mg/dL (0.55-1.3); POTASSIUM 3.9 mmol/L (3.5-5.1)
[2019-02-26 08:57] LABS: HEMOGLOBIN 10.9 GM/dL (10.7-15.3); MCH 26.3 pg (25.7-33.7); MCHC 32.9 g/dl (32.0-36.0); MEAN CELL VOLUME 79.9 fl (80-96); MEAN PLT VOLUME 7.6 fl (7.5-11.1); PLATELET COUNT 214 K/MM3 (134-434); RBC 4.13 M/mm3 (3.60-5.2); RDW 19.9 % (11.6-15.6); WHITE BLOOD COUNT 5.7 K/mm3 (4.0-10.0)
[2019-02-26] MEDS ORDERED: CYCLOBENZAPRINE HCL 5 MG TABLET PO SCH (10:00)
[2019-02-26] MEDS ORDERED: DULoxetine HCL 30 MG CAPSULE.DR PO SCH (10:00)
[2019-02-26] MEDS ORDERED: OXYBUTYNIN CHLORIDE 5 MG TABLET PO SCH (10:00)
[2019-02-26] MEDS ORDERED: oxyCODONE HCL 40 MG SUSTAINED ACTING TABLET PO SCH (10:00)
[2019-02-26] MEDS ORDERED: PT OWN MED DRAWER 7, Y5N ONE (10:00)
[2019-02-26] MEDS ORDERED: LISINOPRIL 10 MG TABLET (FP) PO SCH (10:00)
[2019-02-26] MEDS ORDERED: DOCUSATE SODIUM 100 MG CAPSULE (FP) PO SCH (10:00)
--- NOTE | 2019-02-26 11:20 | PN ---
Progress Note (short form) - Note Progress Note: -NPO, IVF. -OR today at 2-3pm. Gelacio Moya MD (Orthopaedic Surgery).
--- NOTE | 2019-02-26 11:45 | PN ---
Physical Exam: SUBJECTIVE: Patient seen and examined at the bedside. sitting in wheelchair, in no acute distress. loopy from pain medications, but oriented and not in any distress. denies pain. OBJECTIVE: for OR today, then patient to be discharged home, however, patient tells me that her wound vac is not working, stopped working on Monday. She reports that the light was malfunctioning and the wound vac was not draining. Vital Signs Period Temp Pulse Resp BP Sys/Vargas Pulse Ox Last 24 Hr 98.1 F-98.9 F 80-87 16-20 86-118/53-70 99-99 GENERAL: The patient is awake, in no acute distress. speech slurred HEAD: Normal with no signs of trauma. EYES: PERRL, extraocular movements intact, sclera anicteric, conjunctiva clear. No ptosis. ENT: Ears normal, nares patent, dry mucous membranes NECK: Trachea midline, full range of motion, supple. LUNGS: Breath sounds equal, clear to auscultation bilaterally HEART: Regular rate and rhythm ABDOMEN: Soft, nontender, nondistended, normoactive bowel sounds, no guarding, EXTREMITIES: left wound chronic wound. patient has taped this wound with her own home tape. no odor or drainage. she tells me that her wound vac is not working at home since Monday. NEUROLOGICAL: slurred speech, wheelchair bound PSYCH: Normal mood, normal affect. Laboratory Results - last 24 hr 02/26/19 02/26/19 02/26/19 06:10 06:10 06:10 WBC 5.7 RBC 4.13 Hgb 10.9 Hct 33.0 MCV 79.9 L MCH 26.3 MCHC 32.9 RDW 19.9 H Plt Count 214 D MPV 7.6 PT with INR 12.70 INR 1.08 PTT (Actin FS) 31.4 Sodium 143 Potassium 3.9 Chloride 113 H Carbon Dioxide 23 Anion Gap 7 L BUN 18.8 H Creatinine 1.1 Est GFR (CKD-EPI)AfAm 61.88 Est GFR (CKD-EPI)NonAf 53.39 Random Glucose 73 L Calcium 8.4 L Active Medications Generic Name Dose Route Start Last Admin Trade Name Freq PRN Reason Stop Dose Admin Al Hydroxide/Mg Hydroxide 30 ml 02/26/19 02:38 Mylanta Oral Suspension - PO Q6H PRN INDIGESTION Cyclobenzaprine HCl 5 mg 02/26/19 10:00 02/26/19 11:02 Cyclobenzaprine Hcl PO 5 mg DAILY [facility] Administration Diazepam 5 mg 02/26/19 02:42 Valium - PO HS PRN ANXIETY Docusate Sodium 100 mg 02/26/19 10:00 02/26/19 10:05 Colace - PO Not Given BID [facility] Duloxetine HCl 30 mg 02/26/19 10:00 02/26/19 10:05 Cymbalta - PO 30 mg BID [facility] Administration Lisinopril 10 mg 02/26/19 10:00 02/26/19 10:07 Prinivil PO Not Given DAILY [facility] Oxybutynin Chloride 5 mg 02/26/19 10:00 02/26/19 10:05 Ditropan - PO 5 mg BID [facility] Administration Oxycodone HCl 30 mg 02/26/19 02:25 02/26/19 07:14 Roxicodone - PO 30 mg Q4H PRN Administration PAIN 7-10 Oxycodone HCl 80 mg 02/26/19 10:00 02/26/19 10:06 Oxycontin - PO 80 mg BID [facility] Administration Pregabalin 100 mg 02/26/19 06:00 02/26/19 07:03 Lyrica - PO 100 mg TID [facility] Administration Senna 2 tab 02/26/19 02:36 Senna - PO HS PRN CONSTIPATION ASSESSMENT/PLAN: Patient is a 63 year old female with a significant past medical history of hypertension, anxiety, depression, chronic pain and chronic left hip left wound. who has undergone left hip debridement of soft tissue, muscle, bone, VAC application, multiple I and D wound washes, s/p osteotomy left femur, removal of hardware (explant femoral component), I&D left hip wound; hardware removed by surgery. Surgery: patient is for a wash out today of left wound with vac placement with Dr. Moya. hypertension: controlled on lisinopril 10mg daily Depression, chronic. Continue Cymbalta and Valium as needed. Anemia. monitor labs as an outpatient. no need for iron therapy per hematology (on last admission). Urinary incontinence: Continue oxybutynin. no retention of urine. Severe Malnutrition: On a regular diet. bmi @ 23. Falls: history of multiple falls. maintain fall precautions. Opioid dependence: continue oxy 30 q4 and oxycontin 80bid. with close monitoring of mental status. Dispo: discharge home once cleared by surgery. full code Visit type - Emergency Visit Emergency Visit: Yes Care time: The patient presented to the Emergency Department on the above date and was hospitalized for further evaluation of their emergent condition. - New Patient This patient is new to me today: No - Critical Care Critical Care patient: No - Discharge Referral Referred to [facility] Med P.C.: No
--- NOTE | 2019-02-26 14:45 | PN ---
Progress Note (short form) - Note Progress Note: 63F s/p explantation of left hip hardware and, effectively, left hip Girdlestone procedure p/w chronic left hip wound. Pt.'s left hip wound has been managed with routine intra-operative left hip wound debridement and application of wound vac. Granulation tissue is successfully proliferating but, due to wound size, this has taken a long time. Pt. presented to hospital yesterday for repeat left hip wound debridement and wound vac placement. Pt. (w/known history of high tolerance of pain medication) p/w altered mental status and inability to provide consent for procedure - case was cancelled. Pt. admitted to taking unknown quantity and type of medication. At present, patient is once again lethargic, unable to carry a conversation, and unable to ethically provide surgical consent. Pt. was found to be hypoxic in pre-op holding area with O2 saturation in the ~86 %. At this point, we need to rule out underlying sepsis versus pain medication overdose secondary to self-administration on top of hospital-provided medication. -Pt. is admitted to medical hospitalist service. -f/u STAT labs: CBC, CMP, ESR, CRP, PT/PTT/INR, blood cultures x 2 from 2 different sites, UA/UCx. -f/u CXR. -f/u pain management consultation: Dr. Elliot Garcia to help decrease patient's opiate/narcotic requirement. -Continuous O2 saturation monitoring in telemetry unit. -When patient recovers coherent conversational mental status, we will proceed with left hip debridement and reapplication of wound vac. -Plan discussed with and agreed upon by Dr. Amira Rollins (anesthesiology). -Will follow. Gelacio Moya MD (Orthopaedic Surgery).
[2019-02-26] MEDS ORDERED: oxyCODONE HCL 5 MG TABLET PO PRN (14:46)
[2019-02-26 15:52] LABS: BASO % 0.7 % (0-2.0); HEMATOCRIT 36.5 % (32.4-45.2); HEMOGLOBIN 11.8 GM/dL (10.7-15.3); LYMPH % 17.4 % (8-40); MCH 25.8 pg (25.7-33.7); MCHC 32.4 g/dl (32.0-36.0); MEAN CELL VOLUME 79.5 fl (80-96); MEAN PLT VOLUME 7.4 fl (7.5-11.1); MONO % 6.6 % (3.8-10.2); NEUT % 67.3 % (42.8-82.8); PLATELET COUNT 257 K/MM3 (134-434); RDW 19.4 % (11.6-15.6)
[2019-02-26 16:17] LABS: INR 1.07 (0.83-1.09); PROTHROMBIN TIME (PATIENT) 12.6 SEC (9.7-13.0)
[2019-02-26 16:19] LABS: ACTIVATED PTT 35.8 SECONDS (25.2-36.5)
--- NOTE | 2019-02-26 16:25 | CONSULT ---
Consultation: REQUESTING PROVIDER: Dr. Moya CONSULT REQUEST: We have been asked to medically evaluate this patient for ICU admission. HISTORY OF PRESENT ILLNESS: Patient is a 63 year old female with history of chronic left hip pain, hypertension, anxiety, depression, presented for left hip debridement, and re- application of wound vac. Patient has extensive orthopedic surgery with prior washouts, debridement, I & D wound washes, osteotomy left femur, and explant of femur. She has reportedly taken large amounts of of oxycodone (per [facility] documentation takes Oxycodone 80 Q12 hours,and Oxycodone 30mg Q4 hours), and questionable other opiate medications and was unable to discuss consent for surgical procedure today. She was reportedly hypoxic to 80s on the floor. Currently, patient is sleepy however arousable to voice, mumbling some responses. Patient is saturating 99% on 3L nasal canula. Case discussed with patient's son (Canelo Gao [phone]) who lives with patient. He is unsure of what medications patient takes at home. He denies recent changes in mental status, fall, trauma, loss of consciousness. REVIEW OF SYSTEMS: As per HPI. Unable to obtain further due to patient clinical condition. PHYSICAL EXAMINATION Vital Signs - 24 hr 02/25/19 02/25/19 02/25/19 19:11 19:43 21:39 Temperature 98.1 F 98.4 F Pulse Rate 87 82 Respiratory 16 20 Rate Blood Pressure 86/53 L 89/57 L O2 Sat by Pulse 99 99 Oximetry (%) 02/25/19 02/26/19 02/26/19 23:29 06:39 08:55 Temperature 98.4 F 98.9 F 97.2 F L Pulse Rate 82 80 70 Respiratory 20 20 20 Rate Blood Pressure 89/57 L 118/70 100/90 O2 Sat by Pulse Oximetry (%) GENERAL: Patient is sleepy, oriented to person and place. No acute distress. HEAD: Normocephalic, atraumatic. EYES: Pupils equal, round and reactive to light, extraocular movements intact, sclera anicteric, conjunctiva clear. EARS, NOSE, THROAT: Oropharynx clear without exudates. Dry mucous membranes. NECK: Supple without lymphadenopathy, JVD, or masses. LUNGS: Breath sounds equal, clear to auscultation bilaterally. No wheezes, and no crackles. No accessory muscle use. HEART: Regular rate and rhythm, normal S1 and S2 without murmur, rub or gallop. ABDOMEN: Soft, not distended, nontender to light and deep palpation X4 quadrants. Normoactive bowel sounds x4 quadrants. No guarding, no rebound tenderness. UPPER EXTREMITIES: 2+ radial pulses bilaterally, warm, well-perfused. No cyanosis. LOWER EXTREMITIES: 2+ dorsalis pedis pulses bilaterally, warm, well-perfused. No peripheral edema bilaterally. NEUROLOGICAL: Patient freely moving bilateral upper and lower extremities, no gross focal deficits. SKIN: Warm, dry. 15cm x 5cm wound noted at left hip. No significant drainage appreciated. Laboratory Results - last 24 hr 02/26/19 02/26/19 02/26/19 06:10 06:10 06:10 WBC 5.7 RBC 4.13 Hgb 10.9 Hct 33.0 MCV 79.9 L MCH 26.3 MCHC 32.9 RDW 19.9 H Plt Count 214 D MPV 7.6 Absolute Neuts (auto) Neutrophils % Lymphocytes % Monocytes % Eosinophils % Basophils % Nucleated RBC % PT with INR 12.70 INR 1.08 PTT (Actin FS) 31.4 Sodium 143 Potassium 3.9 Chloride 113 H Carbon Dioxide 23 Anion Gap 7 L BUN 18.8 H Creatinine 1.1 Est GFR (CKD-EPI)AfAm 61.88 Est GFR (CKD-EPI)NonAf 53.39 Random Glucose 73 L Calcium 8.4 L 02/26/19 02/26/19 15:15 15:15 WBC 8.0 RBC 4.60 Hgb 11.8 Hct 36.5 MCV 79.5 L MCH 25.8 MCHC 32.4 RDW 19.4 H Plt Count 257 D MPV 7.4 L Absolute Neuts (auto) 5.4 Neutrophils % 67.3 D Lymphocytes % 17.4 Monocytes % 6.6 Eosinophils % 8.0 H Basophils % 0.7 Nucleated RBC % 0 PT with INR 12.60 INR 1.07 PTT (Actin FS) 35.8 Sodium Potassium Chloride Carbon Dioxide Anion Gap BUN Creatinine Est GFR (CKD-EPI)AfAm Est GFR (CKD-EPI)NonAf Random Glucose Calcium Active Medications Generic Name Dose Route Start Last Admin Trade Name Freq PRN Reason Stop Dose Admin Al Hydroxide/Mg Hydroxide 30 ml 02/26/19 02:38 Mylanta Oral Suspension - PO Q6H PRN INDIGESTION Cyclobenzaprine HCl 5 mg 02/26/19 10:00 02/26/19 11:02 Cyclobenzaprine Hcl PO 5 mg DAILY [facility] Administration Diazepam 5 mg 02/26/19 02:42 Valium - PO HS PRN ANXIETY Docusate Sodium 100 mg 02/26/19 10:00 02/26/19 10:05 Colace - PO Not Given BID ELKE Duloxetine HCl 30 mg 02/26/19 10:00 02/26/19 10:05 Cymbalta - PO 30 mg BID ELKE Administration Lisinopril 10 mg 02/26/19 10:00 02/26/19 10:07 Prinivil PO Not Given DAILY [facility] Oxybutynin Chloride 5 mg 02/26/19 10:00 02/26/19 10:05 Ditropan - PO 5 mg BID [facility]KE Administration Oxycodone HCl 10 mg 02/26/19 22:00 Oxycontin - PO BID [facility]KE Oxycodone HCl 10 mg 02/26/19 14:46 Roxicodone - PO Q4H PRN PAIN LEVEL 6-10 Pregabalin 100 mg 02/26/19 06:00 02/26/19 07:03 Lyrica - PO 100 mg TID [facility]KE Administration Senna 2 tab 02/26/19 02:36 Senna - PO HS PRN CONSTIPATION ASSESSMENT/PLAN: Patient is a 63 year old female with history of chronic left hip pain, hypertension, anxiety, depression, presented for left hip debridement, and re- application of wound vac. Admitted to ICU for hypoxia, and altered mental status Neurologic History of anxiety, depression Acute metabolic encephalopathy -likely secondary to excessive opiate medication -Patient is currently not on sedation. Holding Valium in setting of altered mental status. -Oxycodone dosing changed, per orthopedic surgery. Pending Anesthesia evaluation for further pain pre, and postoperative management. -Cyclobenzaprine 5mg PO -Monitor for signs of mental status change Cardiac History of hypertension -Continue Lisinopril 10mg PO daily -Cardiac monitoring Pulmonary Acute hypoxic respiratory failure -Currently saturating 97% on 2L nasal canula -Chest radiograph shows no infiltrates. -Maintain oxygen saturation greater than 90% Gastrointestinal -NPO while lethargic. Will perform bedside swallow evaluation once patient more awake, and responsive. Musculoskeletal -Patient was scheduled for left hip debridement, and re-application of wound vac today. -Debridement per Dr. Moya, orthopedic surgery. Infectious disease -Patient currently afebrile, without WBC count. -Follow blood cultures FEN -Fluids: Currently not on IV fluids. -Electrolytes: Currently within normal limits. Follow CMP, and replete as necessary. -Nutrition: NPO while lethargic Prophylaxis -SCDs bilateral lower extremities. Disposition: We will continue to follow the patient. Thank you for this consultative opportunity. Visit type - Emergency Visit Emergency Visit: Yes ED Registration Date: 02/26/19 Care time: The patient presented to the Emergency Department on the above date and was hospitalized for further evaluation of their emergent condition. - New Patient This patient is new to me today: Yes Date on this admission: 02/26/19 - Critical Care Critical Care patient: No Total Critical Care Time (in minutes): 35 Critical Care Statement: The care of this patient involved high complexity decision making to prevent further life threatening deterioration of the patient 's condition and/or to evaluate & treat vital organ system(s) failure or risk of failure.
[2019-02-26 16:36] LABS: ALBUMIN 3.1 g/dl (3.4-5.0); BILIRUBIN,TOTAL 0.2 mg/dL (0.2-1); BLOOD UREA NITROGEN 19.1 mg/dL (7-18); CALCIUM 8.7 mg/dL (8.5-10.1); CREATININE 1.1 mg/dL (0.55-1.3); POTASSIUM 4.1 mmol/L (3.5-5.1)
--- NOTE | 2019-02-26 20:11 | HP ---
Admitting History and Physical - Admission Chief Complaint: came in for left hip debridement History Source: Patient, Medical Record Limitations to Obtaining History: Intoxication, Uncooperative - Past Medical History Cardiovascular: Yes: HTN Psych: Yes: Depression - Smoking History Smoking history: Current every day smoker Have you smoked in the past 12 months: Yes Aproximately how many cigarettes per day: 5 - Alcohol/Substance Use Hx Alcohol Use: No Home Medications - Allergies Allergies/Adverse Reactions: Allergies Allergy/AdvReac Type Severity Reaction Status Date / Time etomidate Allergy Severe Rash Verified 10/08/18 16:03 latex Allergy Severe Rash Verified 10/08/18 16:03 morphine Allergy Severe Rash Verified 10/08/18 16:03 tomato Allergy Verified 01/13/19 09:29 - Home Medications Home Medications: Ambulatory Orders Diazepam [Valium] 5 mg PO HS PRN 08/24/18 Duloxetine HCl [Cymbalta] 30 mg PO BID 08/24/18 Lisinopril 10 mg PO DAILY 08/24/18 Omeprazole 40 mg PO DAILY 08/24/18 Oxybutynin Chloride 5 mg PO TID 08/24/18 Oxycodone HCl 30 mg PO Q4H PRN 08/24/18 Pregabalin [Lyrica] 100 mg PO TID 08/24/18 Aspirin [Aspirin EC] 325 mg PO DAILY 09/12/18 Amino Acids/Protein Hydrolys [Prosource No Carb Liquid Pkt] 30 ml PO BID@0800, 1730 packet 01/03/19 Cyclobenzaprine HCl 5 mg PO DAILY tablet 01/03/19 Diphenhydramine HCl [Benadryl Capsule -] 25 mg PO HS PRN capsule 01/03/19 Docusate Sodium [Colace -] 100 mg PO TID capsule 01/03/19 Mag Hydrox/Al Hydrox/Simeth [Mylanta Oral Suspension -] 30 ml PO Q6HPO PRN cup 01/03/19 Polyethylene Glycol 3350 [Miralax 119 gm Btl -] 17 gm PO DAILY bottle 01/03/19 Sennosides [Senna -] 2 tab PO HS PRN tablet 01/03/19 Simethicone Liquid [Mylicon Liquid -] 40 mg PO Q6H PRN ml 01/04/19 oxyCODONE SR [Oxycontin] 80 mg PO BID #0 tab-cap MDD 2 01/04/19 Minocycline HCl [Minocin (Non Formulary)] 100 mg PO BID #28 capsule 01/30/19 Review of Systems Unable to obtain ROS, reason: Pt is somnolent Physical Examination Vital Signs: Vital Signs Temperature 97.7 F 02/26/19 16:30 Pulse Rate 76 02/26/19 18:00 Respiratory Rate 15 02/26/19 18:00 Blood Pressure 106/67 02/26/19 18:00 O2 Sat by Pulse Oximetry (%) 98 02/26/19 19:34 Constitutional: Yes: No Distress Eyes: Yes: WNL HENT: Yes: WNL Neck: Yes: WNL Cardiovascular: Yes: WNL Respiratory: Yes: WNL Gastrointestinal: Yes: WNL Renal/: Yes: WNL Musculoskeletal: Yes: Joint Stiffness (left hip tenderness) Extremities: Yes: WNL Edema: No Integumentary: Yes: WNL Neurological: Yes: Lethargy Labs: CBC, BMP 02/26/19 15:15 02/26/19 15:15 Assessment/Plan 63 year old female with history of chronic left hip pain, hypertension, anxiety , depression, presented for left hip debridement, and re-application of wound vac. apparently she tool large amount of opiates prior to admission and was not able to give consent. she was admitted to ICU with acute hypoxic respiratory failure and AMS. cont O2 via NC. keep POX>92%. -cont pain management. pain consult would be appropriate. -HTN: cont lisinopril. -NPO, IV fluids until mental status improves. -major depression and anxiety: on diazepam, cymbalta. watch for withdrawal symptoms. -HTN: on lisinopril. -peripheral neuropathy: cont lyrica. -overactive bladder: cont ditropan. -cont stool softeners for opoiid induced constipation -assessment and plan discussed with medical staff
[2019-02-26] MEDS ORDERED: oxyCODONE HCL 10 MG SUSTAINED ACTING TABLET PO SCH ×2 (22:00)
[2019-02-26] MEDS: CHLORHEXIDINE GLUCONATE 4% CLEANSER FOR DECOLONIZATION TP SCH (22:41)
[2019-02-26] MEDS: MUPIROCIN 2% TOPICAL OINTMENT FOR DECOLONIZATION NS SCH (22:46)
[2019-02-26] MEDS: DOCUSATE SODIUM 100 MG CAPSULE (FP) PO SCH (22:51)
[2019-02-26] MEDS: DULoxetine HCL 30 MG CAPSULE.DR PO SCH (22:52)
[2019-02-26] MEDS: OXYBUTYNIN CHLORIDE 5 MG TABLET PO SCH (22:52)
[2019-02-26 23:16] LABS: COCAINE, UR NEGATIVE ng/ml (CUTOFF=300); METHADONE, UR NEGATIVE ng/ml (CUTOFF=300); PHENCYCLIDINE,URINE NEGATIVE ng/ml (CUTOFF=25); URINE AMPHETAMINES NEGATIVE ng/ml (CUTOFF=500); URINE BARBITURATES NEGATIVE ng/ml (CUTOFF=200)
[2019-02-26 23:31] LABS: OPIATES, URI POSITIVE ng/ml (CUTOFF=300); URINE BENZODIAZEPINES POSITIVE ng/ml (CUTOFF=200)
[2019-02-26] MEDS ORDERED: RAPID SEQUENCE INTUBATION KIT NR ONE (23:34)
[2019-02-27] MEDS: oxyCODONE HCL 5 MG TABLET PO PRN ×2 (02:56→21:54)
[2019-02-27] MEDS: PREGABALIN 100 MG CAPSULE PO SCH ×3 (05:14→21:44)
[2019-02-27 06:08] LABS: HEMATOCRIT 36.2 % (32.4-45.2); HEMOGLOBIN 11.9 GM/dL (10.7-15.3); MCHC 32.9 g/dl (32.0-36.0); MEAN CELL VOLUME 79.1 fl (80-96); PLATELET COUNT 240 K/MM3 (134-434); RBC 4.58 M/mm3 (3.60-5.2); WHITE BLOOD COUNT 6.6 K/mm3 (4.0-10.0)
[2019-02-27 06:42] LABS: ALBUMIN 3.1 g/dl (3.4-5.0); BILIRUBIN,TOTAL 0.3 mg/dL (0.2-1); BLOOD UREA NITROGEN 16.7 mg/dL (7-18); CALCIUM 8.5 mg/dL (8.5-10.1); PHOSPHOROUS 4.4 mg/dL (2.5-4.9)
--- NOTE | 2019-02-27 07:50 | PN ---
Physical Exam: SUBJECTIVE: Patient seen and examined at bedside this morning. Patient is significantly more awake this morning. Patient does not endorse acute complains. OBJECTIVE: Vital Signs Period Temp Pulse Resp BP Sys/Vargas Pulse Ox Last 24 Hr 97.2 F-98.4 F 70-86 14-20 78-162/66-90 98-99 GENERAL: Patient is awake, oriented to person and place. No acute distress. HEAD: Normocephalic, atraumatic. EYES: Pupils equal, round and reactive to light, extraocular movements intact, sclera anicteric, conjunctiva clear. EARS, NOSE, THROAT: Oropharynx clear without exudates. Dry mucous membranes. NECK: Supple without lymphadenopathy, JVD, or masses. LUNGS: Breath sounds equal, clear to auscultation bilaterally. No wheezes, and no crackles. No accessory muscle use. HEART: Regular rate and rhythm, normal S1 and S2 without murmur, rub or gallop. ABDOMEN: Soft, not distended, nontender to light and deep palpation X4 quadrants. Normoactive bowel sounds x4 quadrants. No guarding, no rebound tenderness. UPPER EXTREMITIES: 2+ radial pulses bilaterally, warm, well-perfused. No cyanosis. LOWER EXTREMITIES: 2+ dorsalis pedis pulses bilaterally, warm, well-perfused. No peripheral edema bilaterally. NEUROLOGICAL: Patient freely moving bilateral upper and lower extremities, no gross focal deficits. SKIN: Warm, dry. 15cm x 5cm wound noted at left hip. No significant drainage appreciated. Laboratory Results - last 24 hr 02/26/19 02/26/19 02/26/19 06:10 06:10 06:10 WBC 5.7 RBC 4.13 Hgb 10.9 Hct 33.0 MCV 79.9 L MCH 26.3 MCHC 32.9 RDW 19.9 H Plt Count 214 D MPV 7.6 Absolute Neuts (auto) Neutrophils % Lymphocytes % Monocytes % Eosinophils % Basophils % Nucleated RBC % ESR PT with INR 12.70 INR 1.08 PTT (Actin FS) 31.4 Sodium 143 Potassium 3.9 Chloride 113 H Carbon Dioxide 23 Anion Gap 7 L BUN 18.8 H Creatinine 1.1 Est GFR (CKD-EPI)AfAm 61.88 Est GFR (CKD-EPI)NonAf 53.39 Random Glucose 73 L Calcium 8.4 L Phosphorus Magnesium Total Bilirubin AST ALT Alkaline Phosphatase C-Reactive Protein Total Protein Albumin Opiates Screen Methadone Screen Barbiturate Screen Phencyclidine Screen Ur Amphetamines Screen MDMA (Ecstasy) Screen Benzodiazepines Screen Cocaine Screen U Marijuana (THC) Screen 02/26/19 02/26/19 02/26/19 15:15 15:15 15:15 WBC 8.0 RBC 4.60 Hgb 11.8 Hct 36.5 MCV 79.5 L MCH 25.8 MCHC 32.4 RDW 19.4 H Plt Count 257 D MPV 7.4 L Absolute Neuts (auto) 5.4 Neutrophils % 67.3 D Lymphocytes % 17.4 Monocytes % 6.6 Eosinophils % 8.0 H Basophils % 0.7 Nucleated RBC % 0 ESR 57 H PT with INR INR PTT (Actin FS) Sodium 141 Potassium 4.1 Chloride 112 H Carbon Dioxide 24 Anion Gap 6 L BUN 19.1 H Creatinine 1.1 Est GFR (CKD-EPI)AfAm 61.88 Est GFR (CKD-EPI)NonAf 53.39 Random Glucose 71 L Calcium 8.7 Phosphorus Magnesium Total Bilirubin 0.2 AST 11 L ALT 12 L Alkaline Phosphatase 135 H C-Reactive Protein 7.1 H Total Protein 7.0 Albumin 3.1 L Opiates Screen Methadone Screen Barbiturate Screen Phencyclidine Screen Ur Amphetamines Screen MDMA (Ecstasy) Screen Benzodiazepines Screen Cocaine Screen U Marijuana (THC) Screen 02/26/19 02/26/19 02/27/19 15:15 22:00 05:40 WBC 6.6 RBC 4.58 Hgb 11.9 Hct 36.2 MCV 79.1 L MCH 26.0 MCHC 32.9 RDW 19.0 H Plt Count 240 MPV 7.0 L Absolute Neuts (auto) Neutrophils % Lymphocytes % Monocytes % Eosinophils % Basophils % Nucleated RBC % ESR PT with INR 12.60 INR 1.07 PTT (Actin FS) 35.8 Sodium Potassium Chloride Carbon Dioxide Anion Gap BUN Creatinine Est GFR (CKD-EPI)AfAm Est GFR (CKD-EPI)NonAf Random Glucose Calcium Phosphorus Magnesium Total Bilirubin AST ALT Alkaline Phosphatase C-Reactive Protein Total Protein Albumin Opiates Screen Positive A* Methadone Screen Negative Barbiturate Screen Negative Phencyclidine Screen Negative Ur Amphetamines Screen Negative MDMA (Ecstasy) Screen Negative Benzodiazepines Screen Positive A* Cocaine Screen Negative U Marijuana (THC) Screen Negative 02/27/19 05:40 WBC RBC Hgb Hct MCV MCH MCHC RDW Plt Count MPV Absolute Neuts (auto) Neutrophils % Lymphocytes % Monocytes % Eosinophils % Basophils % Nucleated RBC % ESR PT with INR INR PTT (Actin FS) Sodium 141 Potassium 4.0 Chloride 112 H Carbon Dioxide 22 Anion Gap 6 L BUN 16.7 Creatinine 1.0 Est GFR (CKD-EPI)AfAm 69.44 Est GFR (CKD-EPI)NonAf 59.91 Random Glucose 61 L Calcium 8.5 Phosphorus 4.4 Magnesium 2.0 Total Bilirubin 0.3 AST 13 L ALT 11 L Alkaline Phosphatase 143 H C-Reactive Protein Total Protein 7.0 Albumin 3.1 L Opiates Screen Methadone Screen Barbiturate Screen Phencyclidine Screen Ur Amphetamines Screen MDMA (Ecstasy) Screen Benzodiazepines Screen Cocaine Screen U Marijuana (THC) Screen Active Medications Generic Name Dose Route Start Last Admin Trade Name Freq PRN Reason Stop Dose Admin Al Hydroxide/Mg Hydroxide 30 ml 02/26/19 17:58 Mylanta Oral Suspension - PO Q6H PRN INDIGESTION Chlorhexidine Gluconate 1 applic 02/26/19 22:00 02/26/19 22:41 Hibiclens For Decolonization - TP 1 applic HS ELKE Administration Cyclobenzaprine HCl 5 mg 02/27/19 10:00 Cyclobenzaprine Hcl PO DAILY [facility]KE Diazepam 5 mg 02/26/19 17:58 Valium - PO HS PRN ANXIETY Docusate Sodium 100 mg 02/26/19 22:00 02/26/19 22:51 Colace - PO Not Given BID ELKE Duloxetine HCl 30 mg 02/26/19 22:00 02/26/19 22:52 Cymbalta - PO Not Given BID ELKE Lisinopril 10 mg 02/27/19 10:00 Prinivil PO DAILY [facility] Mupirocin 1 applic 02/26/19 22:00 02/26/19 22:46 Bactroban Ointment (For Decolonization) - NS 03/03/19 21:59 1 applic BID [facility]KE Administration Oxybutynin Chloride 5 mg 02/26/19 22:00 02/26/19 22:52 Ditropan - PO Not Given BID ELKE Oxycodone HCl 10 mg 02/26/19 17:58 02/27/19 02:56 Roxicodone - PO 10 mg Q4H PRN Administration PAIN LEVEL 6-10 Pregabalin 100 mg 02/26/19 22:00 02/27/19 05:14 Lyrica - PO Not Given TID ELKE Senna 2 tab 02/26/19 17:58 Senna - PO HS PRN CONSTIPATION ASSESSMENT/PLAN: Patient is a 63 year old female with history of chronic left hip pain, hypertension, anxiety, depression, presented for left hip debridement, and re- application of wound vac. Admitted to ICU for hypoxia, and altered mental status Neurologic History of anxiety, depression Acute metabolic encephalopathy -likely secondary to excessive opiate medication -Patient is significantly more awake, alert this morning. -Oxycodone dosing changed, per orthopedic surgery. Pending Anesthesia evaluation for further pain pre, and postoperative management. -Cyclobenzaprine 5mg PO -Monitor for signs of mental status change Cardiac History of hypertension -Continue Lisinopril 10mg PO daily Pulmonary Acute hypoxic respiratory failure -Currently saturating 99% on 2L nasal canula -Chest radiograph shows no infiltrates. -Maintain oxygen saturation greater than 90% Gastrointestinal -NPO in anticipation of orthopedic surgery intervention Musculoskeletal -Patient was scheduled for left hip debridement, and re-application of wound vac -Debridement per Dr. Moya, orthopedic surgery. Infectious disease -Patient currently afebrile, without WBC count. -Follow blood cultures FEN -Fluids: Currently not on IV fluids. -Electrolytes: Currently within normal limits. Follow CMP, and replete as necessary. -Nutrition: NPO Prophylaxis -SCDs bilateral lower extremities. Disposition: -Patient is medically stable for transfer to medical-surgical floor. Visit type - Emergency Visit Emergency Visit: Yes ED Registration Date: 02/26/19 Care time: The patient presented to the Emergency Department on the above date and was hospitalized for further evaluation of their emergent condition. - New Patient This patient is new to me today: No - Critical Care Critical Care patient: Yes Total Critical Care Time (in minutes): 35 Critical Care Statement: The care of this patient involved high complexity decision making to prevent further life threatening deterioration of the patient 's condition and/or to evaluate & treat vital organ system(s) failure or risk of failure. - Discharge Referral Referred to [facility] No
--- NOTE | 2019-02-27 11:29 | PN ---
Teaching Attending Note Name of Resident: Edgar Jeffrey ATTENDING PHYSICIAN STATEMENT I saw and evaluated the patient. I reviewed the resident's note and discussed the case with the resident. I agree with the resident's findings and plan as documented. SUBJECTIVE: Pt seen and examined in the ICU. Denies shortness of breath or chest pain. Pt alert, awake. OBJECTIVE: Vital Signs Period Temp Pulse Resp BP Sys/Vargas Pulse Ox Last 24 Hr 97.6 F-98.4 F 72-86 12-18 78-162/66-82 98-99 Intake & Output 02/24/19 02/25/19 02/26/19 02/27/19 23:59 23:59 23:59 23:59 Output Total 750 Balance -750 Weight 61.416 kg Gen: NAD at rest Heart: RRR Lung: decreased breath sounds at the bases Abd: soft, nontender Ext: no edema CBC, BMP 02/27/19 05:40 02/27/19 05:40 Active Medications Al Hydroxide/Mg Hydroxide (Mylanta Oral Suspension -) 30 ml PO Q6H PRN PRN Reason: INDIGESTION Chlorhexidine Gluconate (Hibiclens For Decolonization -) 1 applic TP HS [facility] Last Admin: 02/26/19 22:41 Dose: 1 applic Cyclobenzaprine HCl (Cyclobenzaprine Hcl) 5 mg PO DAILY [facility] Diazepam (Valium -) 5 mg PO HS PRN PRN Reason: ANXIETY Docusate Sodium (Colace -) 100 mg PO BID [facility] Last Admin: 02/26/19 22:51 Dose: Not Given Duloxetine HCl (Cymbalta -) 30 mg PO BID [facility] Last Admin: 02/26/19 22:52 Dose: Not Given Lisinopril (Prinivil) 10 mg PO DAILY [facility] Mupirocin (Bactroban Ointment (For Decolonization) -) 1 applic NS BID [facility] Stop: 03/03/19 21:59 Last Admin: 02/26/19 22:46 Dose: 1 applic Oxybutynin Chloride (Ditropan -) 5 mg PO BID [facility] Last Admin: 02/26/19 22:52 Dose: Not Given Oxycodone HCl (Roxicodone -) 10 mg PO Q4H PRN PRN Reason: PAIN LEVEL 6-10 Last Admin: 02/27/19 02:56 Dose: 10 mg Pregabalin (Lyrica -) 100 mg PO TID [facility] Last Admin: 02/27/19 05:14 Dose: Not Given Senna (Senna -) 2 tab PO HS PRN PRN Reason: CONSTIPATION ASSESSMENT AND PLAN: Altered Mental Status likely due to opiate use resolved Chronic Pain Syndrome Opiate Dependence HTN Anxiety/Depression - for hip debridement - O2 to keep SpO2>90% - aspiration precautions - pain control - DVT prophylaxis - can monitor on floor
[2019-02-27] MEDS: DULoxetine HCL 30 MG CAPSULE.DR PO SCH ×2 (12:33→21:44)
[2019-02-27] MEDS: CYCLOBENZAPRINE HCL 5 MG TABLET PO SCH (12:33)
[2019-02-27] MEDS: DOCUSATE SODIUM 100 MG CAPSULE (FP) PO SCH (12:33)
[2019-02-27] MEDS: OXYBUTYNIN CHLORIDE 5 MG TABLET PO SCH ×2 (12:33→21:43)
[2019-02-27] MEDS: LISINOPRIL 10 MG TABLET (FP) PO SCH (12:33)
[2019-02-27 13:14] VITALS: BMI 23.1
[2019-02-27] MEDS ORDERED: LIDOCAINE HCL/PF 2% SDV 5ML VIAL ONE (19:27)
[2019-02-27] MEDS ORDERED: PROPOFOL 20 ML ONE ×3 (19:28→19:45)
--- NOTE | 2019-02-27 19:39 | PN ---
Progress Note, Physician Chief Complaint: right hip pain - Current Medication List Current Medications: Active Medications Al Hydroxide/Mg Hydroxide (Mylanta Oral Suspension -) 30 ml PO Q6H PRN PRN Reason: INDIGESTION Chlorhexidine Gluconate (Hibiclens For Decolonization -) 1 applic TP HS [facility] Last Admin: 02/26/19 22:41 Dose: 1 applic Cyclobenzaprine HCl (Cyclobenzaprine Hcl) 5 mg PO DAILY [facility] Last Admin: 02/27/19 12:33 Dose: Not Given Diazepam (Valium -) 5 mg PO HS PRN PRN Reason: ANXIETY Docusate Sodium (Colace -) 100 mg PO BID [facility] Last Admin: 02/27/19 12:33 Dose: Not Given Duloxetine HCl (Cymbalta -) 30 mg PO BID [facility] Last Admin: 02/27/19 12:33 Dose: Not Given Lisinopril (Prinivil) 10 mg PO DAILY [facility] Last Admin: 02/27/19 12:33 Dose: Not Given Mupirocin (Bactroban Ointment (For Decolonization) -) 1 applic NS BID [facility] Stop: 03/03/19 21:59 Last Admin: 02/26/19 22:46 Dose: 1 applic Oxybutynin Chloride (Ditropan -) 5 mg PO BID [facility] Last Admin: 02/27/19 12:33 Dose: Not Given Oxycodone HCl (Roxicodone -) 10 mg PO Q4H PRN PRN Reason: PAIN LEVEL 6-10 Last Admin: 02/27/19 02:56 Dose: 10 mg Pregabalin (Lyrica -) 100 mg PO TID [facility] Last Admin: 02/27/19 16:40 Dose: Not Given Senna (Senna -) 2 tab PO HS PRN PRN Reason: CONSTIPATION - Objective Vital Signs: Vital Signs Temperature 97.8 F 02/27/19 14:00 Pulse Rate 90 02/27/19 16:00 Respiratory Rate 12 02/27/19 16:00 Blood Pressure 134/79 02/27/19 16:00 O2 Sat by Pulse Oximetry (%) 98 02/27/19 08:29 Constitutional: Yes: Well Nourished, Anxious, Mild Distress Eyes: Yes: WNL HENT: Yes: WNL Neck: Yes: WNL Cardiovascular: Yes: WNL Respiratory: Yes: WNL Gastrointestinal: Yes: WNL Genitourinary: Yes: WNL Musculoskeletal: Yes: Joint Stiffness Extremities: Yes: WNL Integumentary: Yes: WNL Wound/Incision: Yes: Clean/Dry, Well Approximated Neurological: Yes: WNL Labs: CBC, BMP 02/27/19 05:40 02/27/19 05:40 INR, PTT INR 1.07 (0.83-1.09) 02/26/19 15:15 Assessment/Plan 63 year old female with history of chronic left hip pain, hypertension, anxiety , depression, presented for left hip debridement, and re-application of wound vac. apparently she tool large amount of opiates prior to admission and was not able to give consent. she was admitted to ICU with acute hypoxic respiratory failure and AMS. cont O2 via NC. keep POX>92%. mental status improved today, however, she is constantly c/o pain. -HTN: cont lisinopril. -oral diet. aspiration precautions -major depression and anxiety: on diazepam, cymbalta. watch for withdrawal symptoms. -HTN: on lisinopril. -peripheral neuropathy: cont lyrica. -overactive bladder: cont ditropan. -cont stool softeners for opioid induced constipation -assessment and plan discussed with medical staff -no objection to transfer to medical floor
[2019-02-27] MEDS ORDERED: SUCCINYLCHOLINE CHLORIDE 200 MG/10 ML SYRINGE ONE (19:45)
[2019-02-27] MEDS ORDERED: DEXAMETHASONE SOD PHOSPHATE 4 MG/1 ML VIAL ONE (19:55)
[2019-02-27] MEDS ORDERED: KETOROLAC TROMETHAMINE 30 MG/1 ML VIAL ONE (19:55)
[2019-02-27] MEDS ORDERED: PROMETHAZINE HCL 25 MG/1 ML VIAL IVPUSH PRN (20:17)
[2019-02-27] MEDS ORDERED: oxyCODONE HCL 5 MG TABLET PO PRN (20:17)
[2019-02-27] MEDS ORDERED: MAGNESIUM HYDROX 2400MG/30ML ORAL SUSPENSION 30 ML CUP PO PRN (20:17)
[2019-02-27] MEDS ORDERED: MAG HYDROX/AL HYDROX/SIMETH 30 ML UNIT-DOSE CUP PO PRN (20:17)
[2019-02-27] MEDS ORDERED: ONDANSETRON 4 MG/2 ML VIAL IVPUSH PRN ×2 (20:17)
--- NOTE | 2019-02-27 20:26 | PN ---
Progress Note (short form) - Note Progress Note: 63F s/p I&D left hip wound with application wound vac POD #0. Superficial wound contamination; superficial wound slough successfully debrided in OR. No purulence seen. Wound dimensions unchanged. -Pain control. -DVT PPx: -Chemical: ASA 81mg PO qD. -Mechanical: SOUTH's, SCD's. -Incentive spirometry q15 min. -PT/OT/Rehab, OOB. -WBAT RLE. -f/u post-op TOV: 8 hours max. -Maintain left hip wound vac. -Diet as tolerated. -Care per medical hospitalist: Dr. Islas. -f/u pain management recommendations: Dr. Elliot Garcia. -Discharge planning: f/u [facility] 03/07/2019; call for appointment . -Will follow. Albert Moya MD (Orthopaedic Surgery).
[2019-02-27] MEDS ORDERED: LACTATED RINGERS SOLUTION 1,000 ML IV SCH (20:30)
--- NOTE | 2019-02-27 20:36 | OP ---
Operative Note - Note: Operative Date: 02/27/19 Pre-Operative Diagnosis: Chronic left hip wound Operation: Irrigation and debridement left hip wound Findings: No purulence Superficial fibrinous sough Post-Operative Diagnosis: Same as Pre-op Surgeon: Albert Moya Tooth Polisher: Gelacio Moya Anesthesiologist/[employer] OPERATOR: Giuliano Santo Anesthesia: General Estimated Blood Loss (mls): 0 Drains & Tubes with Location: Left hip woundvac Fluid Volume Replaced (mls): 500 (Crystalloid) Operative Report Dictated: Yes
[2019-02-27] MEDS: MUPIROCIN 2% TOPICAL OINTMENT FOR DECOLONIZATION NS SCH ×2 (21:40→21:42)
[2019-02-27] MEDS: SENNOSIDES/DOCUSATE COMBO (SENNA PLUS) TABLET (UD) PO SCH (21:44)
[2019-02-27] MEDS: CHLORHEXIDINE GLUCONATE 4% CLEANSER FOR DECOLONIZATION TP SCH (21:44)
[2019-02-28] MEDS: oxyCODONE HCL 5 MG TABLET PO PRN ×3 (01:57→18:57)
[2019-02-28] MEDS: PREGABALIN 100 MG CAPSULE PO SCH ×3 (06:14→21:49)
[2019-02-28 06:42] LABS: HEMATOCRIT 36.5 % (32.4-45.2); HEMOGLOBIN 12.4 GM/dL (10.7-15.3); MEAN CELL VOLUME 76.5 fl (80-96); PLATELET COUNT 284 K/MM3 (134-434); RBC 4.77 M/mm3 (3.60-5.2); WHITE BLOOD COUNT 6.6 K/mm3 (4.0-10.0)
[2019-02-28 07:13] LABS: BILIRUBIN,TOTAL 0.2 mg/dL (0.2-1); BLOOD UREA NITROGEN 16.8 mg/dL (7-18); CALCIUM 8.4 mg/dL (8.5-10.1); CREATININE 0.9 mg/dL (0.55-1.3); PHOSPHOROUS 3.6 mg/dL (2.5-4.9); POTASSIUM 3.9 mmol/L (3.5-5.1); TOT PROT 6.9 g/dl (6.4-8.2)
--- NOTE | 2019-02-28 07:42 | OP ---
DATE OF OPERATION: DATE OF DICTATION: 02/27/2019 SURGEON: Albert Moya MD PREOPERATIVE DIAGNOSIS: Septic hip wound with loss of wound vacuum-assisted closure function. POSTOPERATIVE DIAGNOSIS: Septic hip wound with loss of wound vacuum-assisted closure function. OPERATION PERFORMED: Incision, drainage, washout, and insertion of a new wound vacuum-assisted closure. OPERATION IN DETAIL: The patient was correctly identified, brought into the operating room. Left lower extremity was free draped with Betadine scrub solution, wiped with alcohol, DuraPrep applied. The wound was exposed. The wound was thoroughly lavaged and washed out. Culture sticks were taken of the wound all sent for culture and sensitivity. A new wound VAC was inserted and sealed appropriately. Wound VAC working well by the time the patient was extricated out of the operating room. Albert Moya MD [id number] MTDD
--- NOTE | 2019-02-28 07:45 | PN ---
Physical Exam: SUBJECTIVE: Patient seen and examined at bedside this morning. She is POD #1 s/ p irrigation and debridement of left hip. Overnight patient endorsed left hip pain that was controlled with Oxycodone. Patient denies acute complaints this morning. Denies subjective fevers, chills, headache, changes in vision, weakness , shortness of breath, chest pain, palpitations, abdominal pain, nausea, vomiting. OBJECTIVE: Vital Signs Period Temp Pulse Resp BP Sys/Vargas Pulse Ox Last 24 Hr 97.2 F-98.4 F 69-90 12-20 107-151/67-94 98-100 GENERAL: Patient is awake, oriented to person and place. No acute distress. HEAD: Normocephalic, atraumatic. EYES: Pupils equal, round and reactive to light, extraocular movements intact, sclera anicteric, conjunctiva clear. EARS, NOSE, THROAT: Oropharynx clear without exudates. Dry mucous membranes. NECK: Supple without lymphadenopathy, JVD, or masses. LUNGS: Breath sounds equal, clear to auscultation bilaterally. No wheezes, and no crackles. No accessory muscle use. HEART: Regular rate and rhythm, normal S1 and S2 without murmur, rub or gallop. ABDOMEN: Soft, not distended, nontender to light and deep palpation X4 quadrants. Normoactive bowel sounds x4 quadrants. No guarding, no rebound tenderness. UPPER EXTREMITIES: 2+ radial pulses bilaterally, warm, well-perfused. No cyanosis. LOWER EXTREMITIES: 2+ dorsalis pedis pulses bilaterally, warm, well-perfused. No peripheral edema bilaterally. NEUROLOGICAL: Patient freely moving bilateral upper and lower extremities, no gross focal deficits. SKIN: Warm, dry. Left hip wound bandaged, clean dry. Wound vac attached. Laboratory Results - last 24 hr 02/28/19 02/28/19 05:25 05:25 WBC 6.6 RBC 4.77 Hgb 12.4 Hct 36.5 MCV 76.5 L MCH 26.0 MCHC 34.0 RDW 18.0 H Plt Count 284 MPV 7.0 L Sodium 139 Potassium 3.9 Chloride 109 H Carbon Dioxide 22 Anion Gap 8 BUN 16.8 Creatinine 0.9 Est GFR (CKD-EPI)AfAm 78.87 Est GFR (CKD-EPI)NonAf 68.05 Random Glucose 141 H Calcium 8.4 L Phosphorus 3.6 Magnesium 2.0 Total Bilirubin 0.2 AST 10 L ALT 11 L Alkaline Phosphatase 134 H Total Protein 6.9 Albumin 3.0 L Active Medications Generic Name Dose Route Start Last Admin Trade Name Freq PRN Reason Stop Dose Admin Al Hydroxide/Mg Hydroxide 30 ml 02/26/19 17:58 Mylanta Oral Suspension - PO Q6H PRN INDIGESTION Al Hydroxide/Mg Hydroxide 30 ml 02/27/19 20:17 Mylanta Oral Suspension - PO Q4H PRN DYSPEPSIA Chlorhexidine Gluconate 1 applic 02/26/19 22:00 02/27/19 21:44 Hibiclens For Decolonization - TP 1 applic HS ELEK Administration Cyclobenzaprine HCl 5 mg 02/27/19 10:00 02/27/19 12:33 Cyclobenzaprine Hcl PO Not Given DAILY [facility]KE Diazepam 5 mg 02/26/19 17:58 Valium - PO HS PRN ANXIETY Duloxetine HCl 30 mg 02/26/19 22:00 02/27/19 21:44 Cymbalta - PO 30 mg BID ELKE Administration Fentanyl 50 mcg 02/27/19 20:17 02/27/19 20:30 Sublimaze Injection - IVPUSH 50 mcg [id number] PRN Administration PAIN-PACU ORDER X 4 DOSES ONLY Lisinopril 10 mg 02/27/19 10:00 02/27/19 12:33 Prinivil PO Not Given DAILY [facility] Magnesium Hydroxide 30 ml 02/27/19 20:17 Milk Of Magnesia - PO PRN PRN CONSTIPATION Mupirocin 1 applic 02/26/19 22:00 02/27/19 21:42 Bactroban Ointment (For Decolonization) - NS 03/03/19 21:59 1 applic BID [facility]KE Administration Ondansetron HCl 4 mg 02/27/19 20:17 Zofran Injection IVPUSH Q6H PRN NAUSEA AND/OR VOMITING Ondansetron HCl 4 mg 02/27/19 20:17 Zofran Injection IVPUSH Q6H PRN NAUSEA Oxybutynin Chloride 5 mg 02/26/19 22:00 02/27/19 21:43 Ditropan - PO 5 mg BID [facility] Administration Oxycodone HCl 10 mg 02/26/19 17:58 02/28/19 01:57 Roxicodone - PO 10 mg Q4H PRN Administration PAIN LEVEL 6-10 Oxycodone HCl 10 mg 02/27/19 20:17 Roxicodone - PO 02/28/19 20:16 Q4H PRN PAIN LEVEL 6-10 Pantoprazole Sodium 40 mg 02/28/19 10:00 Protonix - PO DAILY [facility] Pregabalin 100 mg 02/26/19 22:00 02/28/19 06:14 Lyrica - PO 100 mg TID ELKE Administration Promethazine HCl 12.5 mg 02/27/19 20:17 Phenergan Injection - IVPUSH Q6H PRN NAUSEA-FOR RESCUE AFTER 15 MIN Senna/Docusate Sodium 2 tablet 02/27/19 22:00 02/27/19 21:44 Pericolace - PO 2 tablet BID [facility] Administration ASSESSMENT/PLAN: Patient is a 63 year old female with history of chronic left hip pain, hypertension, anxiety, depression, presented for left hip debridement, and re- application of wound vac. Admitted to ICU for hypoxia, and altered mental status Neurologic History of anxiety, depression Acute metabolic encephalopathy -likely secondary to excessive opiate medication (resolved) -Patient is awake, alert, communicative this morning. -Oxycodone dosing, per orthopedic surgery. Pending Anesthesia evaluation for further pain postoperative management. -Cyclobenzaprine 5mg PO -Monitor for signs of mental status change Cardiac History of hypertension -Continue Lisinopril 10mg PO daily Pulmonary Acute hypoxic respiratory failure -Currently saturating 99% on 2L nasal canula -Chest radiograph shows no infiltrates. -Maintain oxygen saturation greater than 90% Gastrointestinal -Patient tolerating regular diet without abdominal pain, nausea, vomiting. Musculoskeletal -Patient is POD# 1 s/p left hip irrigation adn debridement, and re-application of wound vac -Follow wound -vac drainage -Follow up postoperative recommendations. Infectious disease -Patient currently afebrile, without WBC count. -Follow blood cultures FEN -Fluids: Currently not on IV fluids. -Electrolytes: Currently within normal limits. Follow CMP, and replete as necessary. -Nutrition: Regular diet Prophylaxis -SCDs bilateral lower extremities. Disposition: -Patient is medically stable for transfer to medical-surgical floor. Visit type - Emergency Visit Emergency Visit: Yes ED Registration Date: 02/26/19 Care time: The patient presented to the Emergency Department on the above date and was hospitalized for further evaluation of their emergent condition. - New Patient This patient is new to me today: No - Critical Care Critical Care patient: Yes Total Critical Care Time (in minutes): 35 Critical Care Statement: The care of this patient involved high complexity decision making to prevent further life threatening deterioration of the patient 's condition and/or to evaluate & treat vital organ system(s) failure or risk of failure. - Discharge Referral Referred to [facility] No
--- NOTE | 2019-02-28 08:49 | PN ---
Progress Note (short form) - Note Progress Note: Anesthesia postop note 63y/o F s/p GA for I&D hip wound POD#1, vss, alert and awake , eating breakfast, sitting in bed, no complaints. No anesthesia complications.
[2019-02-28] MEDS: SENNOSIDES/DOCUSATE COMBO (SENNA PLUS) TABLET (UD) PO SCH ×2 (09:35→21:50)
[2019-02-28] MEDS: DULoxetine HCL 30 MG CAPSULE.DR PO SCH ×2 (09:36→21:49)
[2019-02-28] MEDS: CYCLOBENZAPRINE HCL 5 MG TABLET PO SCH (09:37)
[2019-02-28] MEDS: LISINOPRIL 10 MG TABLET (FP) PO SCH (09:40)
[2019-02-28] MEDS: OXYBUTYNIN CHLORIDE 5 MG TABLET PO SCH ×2 (09:41→21:49)
--- NOTE | 2019-02-28 09:56 | PN ---
Progress Note (short form) - Note Progress Note: 63F s/p I&D left hip wound with application wound vac POD #1. Superficial wound contamination; superficial wound slough successfully debrided in OR. No purulence seen. Wound dimensions unchanged. -Pain control; f/u pain management recommendations: Dr. Elliot Garcia. -Discharge planning: home today once pain management recommendations agreed upon by Dr. Garcia and Dr. Islas; f/u 7-10 days after discharge at [facility] office; call for appointment; . -Pt. has portable wound vac supplied by [employer] with replacement canisters and supplies; this device does not belong to the hospital. -DVT PPx: -Chemical: ASA 81mg PO qD. -Mechanical: SOUTH's, SCD's. -Incentive spirometry q15 min. -PT/OT/Rehab, OOB. -NWB LLE. -Maintain left hip wound vac. -Diet as tolerated. -Care per medical hospitalist: Dr. Islas. -Will follow. Gelacio Moya MD (Orthopaedic Surgery).
[2019-02-28] MEDS: MUPIROCIN 2% TOPICAL OINTMENT FOR DECOLONIZATION NS SCH ×2 (09:57→21:50)
[2019-02-28] MEDS ORDERED: PANTOPRAZOLE 40 MG TABLET (FP) PO SCH (10:00)
--- NOTE | 2019-02-28 10:22 | PN ---
Progress Note, Physician Chief Complaint: right hip pain - Current Medication List Current Medications: Active Medications Al Hydroxide/Mg Hydroxide (Mylanta Oral Suspension -) 30 ml PO Q6H PRN PRN Reason: INDIGESTION Al Hydroxide/Mg Hydroxide (Mylanta Oral Suspension -) 30 ml PO Q4H PRN PRN Reason: DYSPEPSIA Chlorhexidine Gluconate (Hibiclens For Decolonization -) 1 applic TP HS [facility] Last Admin: 02/27/19 21:44 Dose: 1 applic Cyclobenzaprine HCl (Cyclobenzaprine Hcl) 5 mg PO DAILY [facility] Last Admin: 02/28/19 09:37 Dose: 5 mg Diazepam (Valium -) 5 mg PO HS PRN PRN Reason: ANXIETY Duloxetine HCl (Cymbalta -) 30 mg PO BID [facility] Last Admin: 02/28/19 09:36 Dose: 30 mg Fentanyl (Sublimaze Injection -) 50 mcg IVPUSH [id number] PRN PRN Reason: PAIN-PACU ORDER X 4 DOSES ONLY Last Admin: 02/27/19 20:30 Dose: 50 mcg Lisinopril (Prinivil) 10 mg PO DAILY [facility] Last Admin: 02/28/19 09:40 Dose: 10 mg Magnesium Hydroxide (Milk Of Magnesia -) 30 ml PO PRN PRN PRN Reason: CONSTIPATION Mupirocin (Bactroban Ointment (For Decolonization) -) 1 applic NS BID [facility] Stop: 03/03/19 21:59 Last Admin: 02/28/19 09:57 Dose: 1 applic Ondansetron HCl (Zofran Injection) 4 mg IVPUSH Q6H PRN PRN Reason: NAUSEA AND/OR VOMITING Ondansetron HCl (Zofran Injection) 4 mg IVPUSH Q6H PRN PRN Reason: NAUSEA Oxybutynin Chloride (Ditropan -) 5 mg PO BID [facility] Last Admin: 02/28/19 09:41 Dose: 5 mg Oxycodone HCl (Roxicodone -) 10 mg PO Q4H PRN PRN Reason: PAIN LEVEL 6-10 Last Admin: 02/28/19 01:57 Dose: 10 mg Oxycodone HCl (Roxicodone -) 10 mg PO Q4H PRN PRN Reason: PAIN LEVEL 6-10 Stop: 02/28/19 20:16 Pantoprazole Sodium (Protonix -) 40 mg PO DAILY [facility] Last Admin: 02/28/19 09:36 Dose: 40 mg Pregabalin (Lyrica -) 100 mg PO TID [facility] Last Admin: 02/28/19 06:14 Dose: 100 mg Promethazine HCl (Phenergan Injection -) 12.5 mg IVPUSH Q6H PRN PRN Reason: NAUSEA-FOR RESCUE AFTER 15 MIN Senna/Docusate Sodium (Pericolace -) 2 tablet PO BID [facility] Last Admin: 02/28/19 09:35 Dose: 2 tablet - Objective Vital Signs: Vital Signs Temperature 98.2 F 02/28/19 06:02 Pulse Rate 69 02/28/19 06:02 Respiratory Rate 12 02/28/19 09:00 Blood Pressure 136/75 02/28/19 06:02 O2 Sat by Pulse Oximetry (%) 95 02/28/19 09:00 Constitutional: Yes: Well Nourished Eyes: Yes: WNL HENT: Yes: WNL Neck: Yes: WNL Cardiovascular: Yes: WNL Respiratory: Yes: WNL Gastrointestinal: Yes: WNL Musculoskeletal: Yes: Back Pain, Joint Stiffness Extremities: Yes: WNL Edema: No Peripheral Pulses WNL: Yes Wound/Incision: Yes: Clean/Dry, Well Approximated Neurological: Yes: WNL Labs: CBC, BMP 02/28/19 05:25 02/28/19 05:25 INR, PTT INR 1.07 (0.83-1.09) 02/26/19 15:15 Assessment/Plan 63 year old female with history of chronic left hip pain, hypertension, anxiety , depression, presented for left hip debridement, and re-application of wound vac. apparently she tool large amount of opiates prior to admission and was not able to give consent. she was admitted to ICU with acute hypoxic respiratory failure and AMS. cont O2 via NC. keep POX>92%. mental status improved. -HTN: cont lisinopril. -oral diet. aspiration precautions -major depression and anxiety: on diazepam, cymbalta. watch for withdrawal symptoms. -HTN: on lisinopril. -peripheral neuropathy: cont lyrica. -overactive bladder: cont ditropan. -cont stool softeners for opioid induced constipation -assessment and plan discussed with medical staff -Pt discharge will be challenging given her opioid needs
--- NOTE | 2019-02-28 11:12 | PN ---
Teaching Attending Note Name of Resident: Edgar Jeffrey ATTENDING PHYSICIAN STATEMENT I saw and evaluated the patient. I reviewed the resident's note and discussed the case with the resident. I agree with the resident's findings and plan as documented. SUBJECTIVE: Pt seen and examined in the ICU. s/p left hip wound debridement. No fevers or chills. States her stomach is getting upset from not enough pain medications. OBJECTIVE: Vital Signs Period Temp Pulse Resp BP Sys/Vargas Pulse Ox Last 24 Hr 97.2 F-98.4 F 69-90 12-20 124-151/70-94 95-100 Intake & Output 02/25/19 02/26/19 02/27/19 02/28/19 23:59 23:59 23:59 23:59 Intake Total 500 Output Total 750 750 Balance -750 500 -750 Weight 61.235 kg Gen: NAD at rest Heart: RRR Lung: decreased breath sounds at the bases Abd: soft, nontender Ext: no edema CBC, BMP 02/28/19 05:25 02/28/19 05:25 Active Medications Al Hydroxide/Mg Hydroxide (Mylanta Oral Suspension -) 30 ml PO Q6H PRN PRN Reason: INDIGESTION Al Hydroxide/Mg Hydroxide (Mylanta Oral Suspension -) 30 ml PO Q4H PRN PRN Reason: DYSPEPSIA Chlorhexidine Gluconate (Hibiclens For Decolonization -) 1 applic TP HS [facility] Last Admin: 02/27/19 21:44 Dose: 1 applic Cyclobenzaprine HCl (Cyclobenzaprine Hcl) 5 mg PO DAILY [facility] Last Admin: 02/28/19 09:37 Dose: 5 mg Diazepam (Valium -) 5 mg PO HS PRN PRN Reason: ANXIETY Duloxetine HCl (Cymbalta -) 30 mg PO BID [facility] Last Admin: 02/28/19 09:36 Dose: 30 mg Fentanyl (Sublimaze Injection -) 50 mcg IVPUSH [id number] PRN PRN Reason: PAIN-PACU ORDER X 4 DOSES ONLY Last Admin: 02/27/19 20:30 Dose: 50 mcg Lisinopril (Prinivil) 10 mg PO DAILY [facility] Last Admin: 02/28/19 09:40 Dose: 10 mg Magnesium Hydroxide (Milk Of Magnesia -) 30 ml PO PRN PRN PRN Reason: CONSTIPATION Mupirocin (Bactroban Ointment (For Decolonization) -) 1 applic NS BID [facility] Stop: 03/03/19 21:59 Last Admin: 02/28/19 09:57 Dose: 1 applic Ondansetron HCl (Zofran Injection) 4 mg IVPUSH Q6H PRN PRN Reason: NAUSEA AND/OR VOMITING Ondansetron HCl (Zofran Injection) 4 mg IVPUSH Q6H PRN PRN Reason: NAUSEA Oxybutynin Chloride (Ditropan -) 5 mg PO BID [facility] Last Admin: 02/28/19 09:41 Dose: 5 mg Oxycodone HCl (Roxicodone -) 10 mg PO Q4H PRN PRN Reason: PAIN LEVEL 6-10 Last Admin: 02/28/19 01:57 Dose: 10 mg Oxycodone HCl (Roxicodone -) 10 mg PO Q4H PRN PRN Reason: PAIN LEVEL 6-10 Stop: 02/28/19 20:16 Last Admin: 02/28/19 10:14 Dose: 10 mg Pantoprazole Sodium (Protonix -) 40 mg PO DAILY [facility] Last Admin: 02/28/19 09:36 Dose: 40 mg Pregabalin (Lyrica -) 100 mg PO TID [facility] Last Admin: 02/28/19 06:14 Dose: 100 mg Promethazine HCl (Phenergan Injection -) 12.5 mg IVPUSH Q6H PRN PRN Reason: NAUSEA-FOR RESCUE AFTER 15 MIN Senna/Docusate Sodium (Pericolace -) 2 tablet PO BID [facility] Last Admin: 02/28/19 09:35 Dose: 2 tablet ASSESSMENT AND PLAN: Altered Mental Status likely due to opiate use resolved Chronic Pain Syndrome Opiate Dependence HTN Anxiety/Depression - s/p hip debridement - O2 to keep SpO2>90% - pain control - bowel regimen - DVT prophylaxis - can monitor on floor
[2019-02-28] MEDS ORDERED: KETOROLAC TROMETHAMINE 30 MG/1 ML VIAL IM ONE (11:45)
--- NOTE | 2019-02-28 19:42 | PN ---
Progress Note (short form) - Note Progress Note: POD#1 vac CHANGE Vac working well PLAN Pain consult Nutrition +++ Consult Dr Samuel plastic surgeon to evaluate with me in the OR Monday if Dr Samuel available. Requires a flap
[2019-02-28] MEDS ORDERED: PT OWN MED DRAWER 7, Y5N ONE (21:19)
[2019-02-28] MEDS: oxyCODONE HCL 40 MG SUSTAINED ACTING TABLET PO SCH (21:48)
[2019-02-28] MEDS: CHLORHEXIDINE GLUCONATE 4% CLEANSER FOR DECOLONIZATION TP SCH (21:49)
[2019-02-28] MEDS ORDERED: oxyCODONE HCL 10 MG SUSTAINED ACTING TABLET PO SCH (22:00)
[2019-03-01] MEDS: oxyCODONE HCL 5 MG TABLET PO PRN ×2 (02:12→13:20)
[2019-03-01 05:59] LABS: HEMATOCRIT 35.7 % (32.4-45.2); MCH 25.8 pg (25.7-33.7); MCHC 33.5 g/dl (32.0-36.0); MEAN PLT VOLUME 7.2 fl (7.5-11.1); RBC 4.63 M/mm3 (3.60-5.2); RDW 18.7 % (11.6-15.6)
[2019-03-01 06:33] LABS: ALBUMIN 2.9 g/dl (3.4-5.0); BILIRUBIN,TOTAL 0.1 mg/dL (0.2-1); BLOOD UREA NITROGEN 18.6 mg/dL (7-18); CALCIUM 8.5 mg/dL (8.5-10.1); CREATININE 0.9 mg/dL (0.55-1.3); MAGNESIUM 1.9 mg/dL (1.8-2.4); PHOSPHOROUS 3.2 mg/dL (2.5-4.9); POTASSIUM 3.7 mmol/L (3.5-5.1); TOT PROT 6.7 g/dl (6.4-8.2)
[2019-03-01] MEDS: PREGABALIN 100 MG CAPSULE PO SCH (06:33)
[2019-03-01] MEDS ORDERED: MAG HYDROX/AL HYDROX/SIMETH 30 ML UNIT-DOSE CUP PO PRN (07:35)
[2019-03-01] MEDS ORDERED: MAGNESIUM HYDROX 2400MG/30ML ORAL SUSPENSION 30 ML CUP PO PRN (07:35)
[2019-03-01 07:54] LABS: WHITE BLOOD COUNT 10.7 K/mm3 (4.0-10.0)
[2019-03-01 07:55] LABS: PLATELET COUNT 302 K/MM3 (134-434)
--- NOTE | 2019-03-01 08:07 | PN ---
Physical Exam: SUBJECTIVE: Patient seen and examined at bedside this morning. She admits that her pain is controlled with Oxycodone. Patient does not endorse acute complaints this morning. OBJECTIVE: Vital Signs Period Temp Pulse Resp BP Sys/Vargas Pulse Ox Last 24 Hr 98.2 F-98.8 F 71-99 11-18 98-144/56-79 95-100 GENERAL: Patient is awake, oriented to person and place. No acute distress. HEAD: Normocephalic, atraumatic. EYES: Pupils equal, round and reactive to light, extraocular movements intact, sclera anicteric, conjunctiva clear. EARS, NOSE, THROAT: Oropharynx clear without exudates. Dry mucous membranes. NECK: Supple without lymphadenopathy, JVD, or masses. LUNGS: Breath sounds equal, clear to auscultation bilaterally. No wheezes, and no crackles. No accessory muscle use. HEART: Regular rate and rhythm, normal S1 and S2 without murmur, rub or gallop. ABDOMEN: Soft, not distended, nontender to light and deep palpation X4 quadrants. Normoactive bowel sounds x4 quadrants. No guarding, no rebound tenderness. UPPER EXTREMITIES: 2+ radial pulses bilaterally, warm, well-perfused. No cyanosis. LOWER EXTREMITIES: 2+ dorsalis pedis pulses bilaterally, warm, well-perfused. No peripheral edema bilaterally. NEUROLOGICAL: Patient freely moving bilateral upper and lower extremities, no gross focal deficits. SKIN: Warm, dry. Left hip wound bandaged, clean dry. Wound vac attached. Laboratory Results - last 24 hr 03/01/19 03/01/19 05:20 05:20 WBC 10.7 H RBC 4.63 Hgb 12.0 Hct 35.7 MCV 77.0 L MCH 25.8 MCHC 33.5 RDW 18.7 H Plt Count 302 MPV 7.2 L Sodium 140 Potassium 3.7 Chloride 108 H Carbon Dioxide 24 Anion Gap 8 BUN 18.6 H Creatinine 0.9 Est GFR (CKD-EPI)AfAm 78.87 Est GFR (CKD-EPI)NonAf 68.05 Random Glucose 121 H Calcium 8.5 Phosphorus 3.2 Magnesium 1.9 Total Bilirubin 0.1 L AST 8 L ALT 12 L Alkaline Phosphatase 120 H Total Protein 6.7 Albumin 2.9 L Active Medications Generic Name Dose Route Start Last Admin Trade Name Freq PRN Reason Stop Dose Admin Al Hydroxide/Mg Hydroxide 30 ml 03/01/19 07:35 Mylanta Oral Suspension - PO Q4H PRN DYSPEPSIA Chlorhexidine Gluconate 1 applic 03/01/19 22:00 Hibiclens For Decolonization - TP HS [facility] Cyclobenzaprine HCl 5 mg 03/01/19 10:00 Cyclobenzaprine Hcl PO DAILY [facility] Diazepam 5 mg 03/01/19 22:00 Valium - PO HS PRN ANXIETY Duloxetine HCl 30 mg 03/01/19 10:00 Cymbalta - PO BID [facility] Lisinopril 10 mg 03/01/19 10:00 Prinivil PO DAILY [facility] Magnesium Hydroxide 30 ml 03/01/19 07:35 Milk Of Magnesia - PO PRN PRN CONSTIPATION Mupirocin 1 applic 03/01/19 10:00 Bactroban Ointment (For Decolonization) - NS 03/03/19 21:59 BID [facility] Oxybutynin Chloride 5 mg 03/01/19 10:00 Ditropan - PO BID [facility] Oxycodone HCl 10 mg 02/28/19 14:35 03/01/19 02:12 Roxicodone - PO 10 mg Q6H PRN Administration PAIN LEVEL 7 - 10 Oxycodone HCl 80 mg 02/28/19 22:00 02/28/19 21:48 Oxycontin - PO 80 mg BID [facility] Administration Pantoprazole Sodium 40 mg 03/01/19 10:00 Protonix - PO DAILY [facility] Pregabalin 100 mg 03/01/19 14:00 Lyrica - PO TID [facility] Senna/Docusate Sodium 2 tablet 03/01/19 10:00 Pericolace - PO BID [facility] ASSESSMENT/PLAN: Patient is a 63 year old female with history of chronic left hip pain, hypertension, anxiety, depression, presented for left hip debridement, and re- application of wound vac. Admitted to ICU for hypoxia, and altered mental status Neurologic History of anxiety, depression Acute metabolic encephalopathy -likely secondary to excessive opiate medication (resolved) -Patient is awake, alert, communicative this morning. -Oxycodone dosing, per orthopedic surgery. Anesthesia evaluation for pain postoperative management appreciated. -Cyclobenzaprine 5mg PO -Monitor for signs of mental status change Cardiac History of hypertension -Continue Lisinopril 10mg PO daily Pulmonary Acute hypoxic respiratory failure -Currently saturating 99% on 2L nasal canula -Chest radiograph shows no infiltrates. -Maintain oxygen saturation greater than 90% Gastrointestinal -Patient tolerating regular diet without abdominal pain, nausea, vomiting. Musculoskeletal -Patient is POD# 2 s/p left hip irrigation and debridement, and re-application of wound vac -Follow wound -vac drainage -Follow up postoperative recommendations. Infectious disease -Patient currently afebrile, WBC 10.7 today. -Follow blood cultures -Currently not on antibiotics. FEN -Fluids: Currently not on IV fluids. -Electrolytes: Currently within normal limits. Follow CMP, and replete as necessary. -Nutrition: Regular diet Prophylaxis -SCDs bilateral lower extremities. Disposition: -Patient is medically stable for transfer to medical-surgical floor. Visit type - Emergency Visit Emergency Visit: Yes ED Registration Date: 02/26/19 Care time: The patient presented to the Emergency Department on the above date and was hospitalized for further evaluation of their emergent condition. - New Patient This patient is new to me today: No - Critical Care Critical Care patient: Yes Total Critical Care Time (in minutes): 35 Critical Care Statement: The care of this patient involved high complexity decision making to prevent further life threatening deterioration of the patient 's condition and/or to evaluate & treat vital organ system(s) failure or risk of failure. - Discharge Referral Referred to [facility] No
[2019-03-01] MEDS: oxyCODONE HCL 40 MG SUSTAINED ACTING TABLET PO SCH (09:33)
[2019-03-01] MEDS ORDERED: OXYBUTYNIN CHLORIDE 5 MG TABLET PO SCH (10:00)
[2019-03-01] MEDS ORDERED: PANTOPRAZOLE 40 MG TABLET (FP) PO SCH (10:00)
[2019-03-01] MEDS ORDERED: CYCLOBENZAPRINE HCL 5 MG TABLET PO SCH (10:00)
[2019-03-01] MEDS ORDERED: SENNOSIDES/DOCUSATE COMBO (SENNA PLUS) TABLET (UD) PO SCH (10:00)
[2019-03-01] MEDS ORDERED: DULoxetine HCL 30 MG CAPSULE.DR PO SCH (10:00)
[2019-03-01] MEDS ORDERED: MUPIROCIN 2% TOPICAL OINTMENT FOR DECOLONIZATION NS SCH (10:00)
[2019-03-01] MEDS ORDERED: LISINOPRIL 10 MG TABLET (FP) PO SCH (10:00)
--- NOTE | 2019-03-01 10:54 | DS ---
Physical Examination Vital Signs: Vital Signs Temperature 98.2 F 03/01/19 04:00 Pulse Rate 71 03/01/19 06:15 Respiratory Rate 13 03/01/19 09:00 Blood Pressure 142/77 03/01/19 04:00 O2 Sat by Pulse Oximetry (%) 99 03/01/19 10:00 Constitutional: Yes: Well Nourished Eyes: Yes: WNL HENT: Yes: WNL Neck: Yes: WNL Cardiovascular: Yes: WNL Respiratory: Yes: WNL Gastrointestinal: Yes: WNL Renal/: Yes: WNL Musculoskeletal: Yes: Back Pain Extremities: Yes: WNL Integumentary: Yes: WNL Wound/Incision: Yes: Clean/Dry, Well Approximated Neurological: Yes: WNL ...Motor Strength: WNL Psychiatric: Yes: WNL Labs: CBC, BMP 03/01/19 05:20 03/01/19 05:20 Discharge Summary Reason For Visit: LOOSENING OF INTERNAL LEFT HIP - Instructions - Home Medications Comprehensive Discharge Medication List: Ambulatory Orders Diazepam [Valium] 5 mg PO HS PRN 08/24/18 Duloxetine HCl [Cymbalta] 30 mg PO BID 08/24/18 Lisinopril 10 mg PO DAILY 08/24/18 Omeprazole 40 mg PO DAILY 08/24/18 Oxybutynin Chloride 5 mg PO TID 08/24/18 Oxycodone HCl 30 mg PO Q4H PRN 08/24/18 Pregabalin [Lyrica] 100 mg PO TID 08/24/18 Aspirin [Aspirin EC] 325 mg PO DAILY 09/12/18 Amino Acids/Protein Hydrolys [Prosource No Carb Liquid Pkt] 30 ml PO BID@0800, 1730 packet 01/03/19 Cyclobenzaprine HCl 5 mg PO DAILY tablet 01/03/19 Diphenhydramine HCl [Benadryl Capsule -] 25 mg PO HS PRN capsule 01/03/19 Docusate Sodium [Colace -] 100 mg PO TID capsule 01/03/19 Mag Hydrox/Al Hydrox/Simeth [Mylanta Oral Suspension -] 30 ml PO Q6HPO PRN cup 01/03/19 Polyethylene Glycol 3350 [Miralax 119 gm Btl -] 17 gm PO DAILY bottle 01/03/19 Sennosides [Senna -] 2 tab PO HS PRN tablet 01/03/19 Simethicone Liquid [Mylicon Liquid -] 40 mg PO Q6H PRN ml 01/04/19 oxyCODONE SR [Oxycontin] 80 mg PO BID #0 tab-cap MDD 2 01/04/19 Minocycline HCl [Minocin (Non Formulary)] 100 mg PO BID #28 capsule 01/30/19
--- NOTE | 2019-03-01 11:28 | PN ---
Teaching Attending Note Name of Resident: Edgar Jeffrey ATTENDING PHYSICIAN STATEMENT I saw and evaluated the patient. I reviewed the resident's note and discussed the case with the resident. I agree with the resident's findings and plan as documented. SUBJECTIVE: Patient seen and examined in the ICU. Pain seems a little better. No CP or SOB. OBJECTIVE: Intake & Output 02/26/19 02/27/19 02/28/19 03/01/19 23:59 23:59 23:59 23:59 Intake Total 500 200 370 Output Total 750 750 Balance -750 500 -550 370 Weight 135 lb Last Vital Signs Temp Pulse Resp BP Pulse Ox 98.2 F 71 13 142/77 99 03/01/19 04:00 03/01/19 06:15 03/01/19 09:00 03/01/19 04:00 03/01/19 10:00 Active Medications Al Hydroxide/Mg Hydroxide (Mylanta Oral Suspension -) 30 ml PO Q4H PRN PRN Reason: DYSPEPSIA Chlorhexidine Gluconate (Hibiclens For Decolonization -) 1 applic TP HS [facility] Cyclobenzaprine HCl (Cyclobenzaprine Hcl) 5 mg PO DAILY [facility] Last Admin: 03/01/19 09:32 Dose: 5 mg Diazepam (Valium -) 5 mg PO HS PRN PRN Reason: ANXIETY Duloxetine HCl (Cymbalta -) 30 mg PO BID [facility] Last Admin: 03/01/19 09:33 Dose: 30 mg Lisinopril (Prinivil) 10 mg PO DAILY [facility] Last Admin: 03/01/19 09:32 Dose: 10 mg Magnesium Hydroxide (Milk Of Magnesia -) 30 ml PO PRN PRN PRN Reason: CONSTIPATION Mupirocin (Bactroban Ointment (For Decolonization) -) 1 applic NS BID [facility] Stop: 03/03/19 21:59 Last Admin: 03/01/19 09:36 Dose: 1 applic Oxybutynin Chloride (Ditropan -) 5 mg PO BID [facility] Last Admin: 03/01/19 09:33 Dose: 5 mg Oxycodone HCl (Roxicodone -) 10 mg PO Q6H PRN PRN Reason: PAIN LEVEL 7 - 10 Last Admin: 03/01/19 02:12 Dose: 10 mg Oxycodone HCl (Oxycontin -) 80 mg PO BID [facility] Last Admin: 03/01/19 09:33 Dose: 80 mg Pantoprazole Sodium (Protonix -) 40 mg PO DAILY [facility] Last Admin: 03/01/19 09:33 Dose: 40 mg Pregabalin (Lyrica -) 100 mg PO TID [facility] Senna/Docusate Sodium (Pericolace -) 2 tablet PO BID [facility] Last Admin: 03/01/19 09:36 Dose: 2 tablet Gen: NAD at rest Heart: RRR Lung: decreased breath sounds at the bases Abd: soft, nontender Ext: no edema Laboratory Results - last 24 hr 03/01/19 03/01/19 05:20 05:20 WBC 10.7 H RBC 4.63 Hgb 12.0 Hct 35.7 MCV 77.0 L MCH 25.8 MCHC 33.5 RDW 18.7 H Plt Count 302 MPV 7.2 L Sodium 140 Potassium 3.7 Chloride 108 H Carbon Dioxide 24 Anion Gap 8 BUN 18.6 H Creatinine 0.9 Est GFR (CKD-EPI)AfAm 78.87 Est GFR (CKD-EPI)NonAf 68.05 Random Glucose 121 H Calcium 8.5 Phosphorus 3.2 Magnesium 1.9 Total Bilirubin 0.1 L AST 8 L ALT 12 L Alkaline Phosphatase 120 H Total Protein 6.7 Albumin 2.9 L ASSESSMENT AND PLAN: Altered Mental Status likely due to opiate use resolved Chronic Pain Syndrome Opiate Dependence HTN Anxiety/Depression S/P hip debridement - Pain control - O2 to keep SpO2>90% - bowel regimen - DVT prophylaxis - Floor or D/C Home Dr [place]
[2019-03-01 12:25] VITALS: BP 95/55; PULSE 75
[2019-03-01] MEDS ORDERED: PREGABALIN 100 MG CAPSULE PO SCH (14:00)
[2019-03-01 15:52] VITALS: TEMP 97.5
[2019-03-01] MEDS ORDERED: diazePAM 5 MG TABLET PO PRN (22:00)
[2019-03-01] MEDS ORDERED: CHLORHEXIDINE GLUCONATE 4% CLEANSER FOR DECOLONIZATION TP SCH (22:00)
== END 2019-03-01 18:04 | disposition home or self-care (01) | DRG 40 ==
LOC: JASU-SURG 18:39 → SUATTDRO 18:39 → J8W 19:30 → JICU 02-26 16:18
PROVIDERS: ADMIT Internal Medicine; ATTEND Internal Medicine
PROC: 0J9M00Z Drainage of Left Upper Leg Subcutaneous Tissue and Fascia with Drainage Device, Open Approach (ICD-10-PCS; 2019-02-27)
PROC: 3E10X8X Irrigation of Skin and Mucous Membranes using Irrigating Substance, Diagnostic (ICD-10-PCS; 2019-02-27)
PROC: 0HDJXZZ Extraction of Left Upper Leg Skin, External Approach (ICD-10-PCS; 2019-02-27)
PROC: 0JDM0ZZ Extraction of Left Upper Leg Subcutaneous Tissue and Fascia, Open Approach (ICD-10-PCS; principal; 2019-02-27 18:00)
DX: G92 Toxic encephalopathy (principal); J96.01 Acute respiratory failure with hypoxia; E43 Unspecified severe protein-calorie malnutrition; F11.20 Opioid dependence, uncomplicated; T81.41XA Infection following a procedure, superficial incisional surgical site, initial encounter; B95.7 Other staphylococcus as the cause of diseases classified elsewhere; K59.03 Drug induced constipation; T40.2X5A Adverse effect of other opioids, initial encounter; I10 Essential (primary) hypertension; F41.9 Anxiety disorder, unspecified; F32.9 Major depressive disorder, single episode, unspecified; G89.29 Other chronic pain; F17.210 Nicotine dependence, cigarettes, uncomplicated; G62.9 Polyneuropathy, unspecified; N32.81 Overactive bladder
CPT/HCPCS: 36415; 71045-TC-FY; 80048; 80053; 80307; 83735; 84100; 85025; 85027; 85610; 85651; 85730; 86140; 87040; 87070; 87186; 87205; 94010; 97116-GP; 97161-GP

== ENCOUNTER 2019-03-06 13:19 | Day surgery (SDC) | payer OTHER ==
[2019-03-05 16:55] VITALS: BMI 23.1
[2019-03-06] MEDS ORDERED: PROPOFOL 20 ML ONE ×2 (19:15)
--- NOTE | 2019-03-06 20:11 | PN ---
Progress Note (short form) - Note Progress Note: 63F s/p I&D left hip wound with application wound vac POD #0. No purulence seen. Wound dimensions unchanged. -Pain control. -DVT PPx: -Chemical: ASA 81mg PO qD. -Mechanical: SOUTH's, SCD's. -Incentive spirometry q15 min. -PT/OT/Rehab, OOB. -WBAT RLE. -NWB LLE. -f/u post-op TOV: 8 hours max. -Maintain left hip wound vac. -Diet as tolerated. -Care per medical hospitalist: Dr. Islas. -Discharge planning: home tomorrow morning. Will reschedule subsequent wound debridements/wound vac changes. Will plan flap closure with plastic surgeon; f/ u [facility] [place] [facility] 03/07/2019; call for appointment . -Will follow. Albert Moya MD (Orthopaedic Surgery).
[2019-03-06] MEDS ORDERED: diazePAM 5 MG TABLET PO PRN (20:12)
[2019-03-06] MEDS ORDERED: PATIENT'S OWN MEDICATION (NON-FORMULARY) (Oxycodone Hcl [Oxycodone Hcl] 30 MG) PO PRN (20:12)
[2019-03-06] MEDS ORDERED: MAG HYDROX/AL HYDROX/SIMETH 30 ML UNIT-DOSE CUP PO PRN (20:12)
[2019-03-06] MEDS ORDERED: SIMETHICONE 40 MG/0.6 ML BOTTLE PO PRN (20:12)
[2019-03-06] MEDS ORDERED: SENNOSIDES 8.6MG TABLET (FP) PO PRN (20:12)
[2019-03-06] MEDS ORDERED: diphenhydrAMINE HCL 25 MG CAPSULE (FP) PO PRN (20:12)
--- NOTE | 2019-03-06 20:12 | OP ---
Operative Note - Note: Operative Date: 03/06/19 Pre-Operative Diagnosis: Chronic left hip wound Operation: Left hip wound irrigation and debridement. Application left hip woundvac Post-Operative Diagnosis: Same as Pre-op Surgeon: Albert Moya Anesthesiologist/UTILITY BILL COMPLAINTS INVESTIGATOR: Giuliano Santo Anesthesia: General Estimated Blood Loss (mls): 0 Drains & Tubes with Location: Left hip woundvac Fluid Volume Replaced (mls): 500 (Crystalloid) Operative Report Dictated: Yes
[2019-03-06] MEDS ORDERED: LACTATED RINGERS SOLUTION 1,000 ML IV SCH (20:15)
[2019-03-06] MEDS ORDERED: oxyCODONE HCL 80 MG SUSTAINED ACTING TABLET PO PRN (20:19)
[2019-03-06] MEDS ORDERED: ONDANSETRON 4 MG/2 ML VIAL IVPUSH PRN (20:25)
[2019-03-06] MEDS ORDERED: PROMETHAZINE HCL 25 MG/1 ML VIAL IVPUSH PRN (20:25)
[2019-03-06] MEDS ORDERED: MINOCYCLINE HCL 100 MG PO SCH (22:00)
[2019-03-06] MEDS ORDERED: oxyCODONE HCL 80 MG SUSTAINED ACTING TABLET PO SCH (22:00)
[2019-03-06] MEDS: oxyCODONE HCL 5 MG TABLET PO PRN (22:29)
[2019-03-06] MEDS: OXYBUTYNIN CHLORIDE 5 MG TABLET PO SCH (22:29)
[2019-03-06] MEDS: DOCUSATE SODIUM 100 MG CAPSULE (FP) PO SCH (22:29)
[2019-03-06] MEDS: PREGABALIN 100 MG CAPSULE PO SCH (22:29)
[2019-03-06] MEDS: DULoxetine HCL 30 MG CAPSULE.DR PO SCH (22:29)
[2019-03-07] MEDS: OXYBUTYNIN CHLORIDE 5 MG TABLET PO SCH ×2 (05:50→13:11)
[2019-03-07] MEDS: DOCUSATE SODIUM 100 MG CAPSULE (FP) PO SCH ×2 (05:50→13:10)
[2019-03-07] MEDS: PREGABALIN 100 MG CAPSULE PO SCH ×2 (05:50→13:11)
[2019-03-07 06:10] VITALS: BP 125/71
[2019-03-07] MEDS: KETOROLAC TROMETHAMINE 30 MG/1 ML VIAL IM PRN ×2 (06:22→13:10)
[2019-03-07] MEDS ORDERED: AMINO ACIDS/PROTEIN HYDROLYS 30 ML LIQUID.PKT PO SCH (08:00)
[2019-03-07] MEDS ORDERED: ASPIRIN 325 MG TABLET PO SCH (08:00)
[2019-03-07 08:17] LABS: HEMATOCRIT 31.3 % (32.4-45.2); HEMOGLOBIN 10.5 GM/dL (10.7-15.3); MCH 25.8 pg (25.7-33.7); MCHC 33.4 g/dl (32.0-36.0); MEAN CELL VOLUME 77.5 fl (80-96); MEAN PLT VOLUME 6.9 fl (7.5-11.1); PLATELET COUNT 357 K/MM3 (134-434); RBC 4.04 M/mm3 (3.60-5.2); RDW 18.4 % (11.6-15.6); WHITE BLOOD COUNT 7.1 K/mm3 (4.0-10.0)
[2019-03-07 08:28] LABS: BLOOD UREA NITROGEN 17.7 mg/dL (7-18); CALCIUM 8.1 mg/dL (8.5-10.1)
[2019-03-07] MEDS ORDERED: LISINOPRIL 10 MG TABLET (FP) PO SCH (10:00)
[2019-03-07] MEDS ORDERED: POLYETHYLENE GLYCOL 3350 119 GM BTL PO SCH (10:00)
[2019-03-07] MEDS ORDERED: PANTOPRAZOLE 40 MG TABLET (FP) PO SCH (10:00)
[2019-03-07] MEDS ORDERED: CYCLOBENZAPRINE HCL 5 MG TABLET PO SCH (10:00)
[2019-03-07] MEDS ORDERED: ASPIRIN 81 MG CHEWABLE TABLETS PO SCH (10:12)
[2019-03-07] MEDS ORDERED: ASPIRIN 81 MG CHEWABLE TABLETS ONE (10:15)
[2019-03-07] MEDS: oxyCODONE HCL 5 MG TABLET PO PRN ×2 (10:19→14:15)
[2019-03-07] MEDS: DULoxetine HCL 30 MG CAPSULE.DR PO SCH (10:19)
--- NOTE | 2019-03-07 12:06 | PN ---
Progress Note, Physician Chief Complaint: left hip pain - Current Medication List Current Medications: Active Medications Al Hydroxide/Mg Hydroxide (Mylanta Oral Suspension -) 30 ml PO Q6HPO PRN PRN Reason: DYSPEPSIA Amino Acids (Prosource No Carb Liquid Pkt) 30 ml PO BID@0800,1730 [facility] Last Admin: 03/07/19 10:18 Dose: 30 ml Aspirin (Asa -) 81 mg PO DAILY@0800 [facility] Cyclobenzaprine HCl (Cyclobenzaprine Hcl) 5 mg PO DAILY [facility] Last Admin: 03/07/19 10:18 Dose: 5 mg Diazepam (Valium -) 5 mg PO HS PRN PRN Reason: ANXIETY Diphenhydramine HCl (Benadryl -) 25 mg PO HS PRN PRN Reason: INSOMNIA Docusate Sodium (Colace -) 100 mg PO TID [facility] Last Admin: 03/07/19 05:50 Dose: 100 mg Duloxetine HCl (Cymbalta -) 30 mg PO BID [facility] Last Admin: 03/07/19 10:19 Dose: 30 mg Fentanyl (Sublimaze Injection -) 50 mcg IVPUSH [id number] PRN PRN Reason: PAIN-PACU ORDER X 4 DOSES ONLY Ketorolac Tromethamine (Toradol Injection -) 30 mg IM Q6H PRN PRN Reason: PAIN LEVEL 6-10 Stop: 03/12/19 00:04 Last Admin: 03/07/19 06:22 Dose: 30 mg Lisinopril (Prinivil) 10 mg PO DAILY [facility] Last Admin: 03/07/19 10:18 Dose: 10 mg Non-Formulary Medication (Minocycline Hcl) 100 mg PO BID [facility] Non-Formulary Medication (Oxycodone Hcl [Oxycodone Hcl]) 30 mg PO Q4H PRN PRN Reason: PAIN Ondansetron HCl (Zofran Injection) 4 mg IVPUSH Q6H PRN PRN Reason: NAUSEA AND/OR VOMITING Oxybutynin Chloride (Ditropan -) 5 mg PO TID [facility] Last Admin: 03/07/19 05:50 Dose: 5 mg Oxycodone HCl (Oxycontin -) 80 mg PO BID PRN PRN Reason: PAIN LEVEL 7 - 10 Oxycodone HCl (Roxicodone -) 10 mg PO Q4H PRN PRN Reason: PAIN LEVEL 6-10 Last Admin: 03/07/19 10:19 Dose: 10 mg Pantoprazole Sodium (Protonix -) 40 mg PO DAILY [facility] Last Admin: 03/07/19 10:18 Dose: 40 mg Polyethylene Glycol (Miralax (For Daily Use) -) 17 gm PO DAILY [facility] Last Admin: 03/07/19 10:19 Dose: 17 gm Pregabalin (Lyrica -) 100 mg PO TID [facility] Last Admin: 03/07/19 05:50 Dose: 100 mg Promethazine HCl (Phenergan Injection -) 12.5 mg IVPUSH Q6H PRN PRN Reason: NAUSEA-FOR RESCUE AFTER 15 MIN Senna (Senna -) 2 tab PO HS PRN PRN Reason: CONSTIPATION Simethicone (Mylicon Liquid -) 40 mg PO Q6H PRN PRN Reason: INDIGESTION - Objective Vital Signs: Vital Signs Temperature 98.1 F 03/07/19 04:00 Pulse Rate 75 03/07/19 04:00 Respiratory Rate 20 03/07/19 04:00 Blood Pressure 125/71 03/07/19 04:00 O2 Sat by Pulse Oximetry (%) 98 03/06/19 21:58 Constitutional: Yes: Well Nourished Eyes: Yes: WNL HENT: Yes: WNL Neck: Yes: WNL Cardiovascular: Yes: WNL Respiratory: Yes: WNL Gastrointestinal: Yes: WNL Genitourinary: Yes: WNL Musculoskeletal: Yes: Joint Stiffness Extremities: Yes: WNL Edema: No Peripheral Pulses WNL: Yes Integumentary: Yes: WNL Wound/Incision: Yes: Clean/Dry Neurological: Yes: WNL ...Motor Strength: WNL Psychiatric: Yes: Agitated Labs: CBC, BMP 03/07/19 07:16 03/07/19 07:16 Assessment/Plan 63 yo lady S/P Left hip wound irrigation and debridement. cont pain management, muscle relaxants, lyrica. f/o with Dr Moya outpatient -major anxiety and depression, mood disorder: on valium -cont stool softeners for opioid induced constipation -HTN: on lisinopril -overactive bladder: on ditropan -oral diet -DC planning
--- NOTE | 2019-03-07 12:11 | DS ---
Physical Examination Vital Signs: Vital Signs Temperature 98.1 F 03/07/19 04:00 Pulse Rate 75 03/07/19 04:00 Respiratory Rate 20 03/07/19 04:00 Blood Pressure 125/71 03/07/19 04:00 O2 Sat by Pulse Oximetry (%) 98 03/06/19 21:58 Constitutional: Yes: Well Nourished, Anxious Eyes: Yes: WNL HENT: Yes: WNL Neck: Yes: WNL Cardiovascular: Yes: WNL Respiratory: Yes: WNL Gastrointestinal: Yes: WNL Renal/: Yes: WNL Musculoskeletal: Yes: WNL Extremities: Yes: WNL Edema: No Peripheral Pulses WNL: Yes Integumentary: Yes: WNL Wound/Incision: Yes: Clean/Dry Neurological: Yes: WNL ...Motor Strength: WNL Psychiatric: Yes: Agitated Labs: CBC, BMP 03/07/19 07:16 03/07/19 07:16 Discharge Summary Reason For Visit: LOOSENING OF INTERNAL LEFT HIP - Instructions - Home Medications Comprehensive Discharge Medication List: Ambulatory Orders Diazepam [Valium] 5 mg PO HS PRN 08/24/18 Duloxetine HCl [Cymbalta] 30 mg PO BID 08/24/18 Lisinopril 10 mg PO DAILY 08/24/18 Omeprazole 40 mg PO DAILY 08/24/18 Oxybutynin Chloride 5 mg PO TID 08/24/18 Oxycodone HCl 30 mg PO Q4H PRN 08/24/18 Pregabalin [Lyrica] 100 mg PO TID 08/24/18 Aspirin [Aspirin EC] 325 mg PO DAILY 09/12/18 Amino Acids/Protein Hydrolys [Prosource No Carb Liquid Pkt] 30 ml PO BID@0800, 1730 packet 01/03/19 Cyclobenzaprine HCl 5 mg PO DAILY tablet 01/03/19 Diphenhydramine HCl [Benadryl Capsule -] 25 mg PO HS PRN capsule 01/03/19 Docusate Sodium [Colace -] 100 mg PO TID capsule 01/03/19 Mag Hydrox/Al Hydrox/Simeth [Mylanta Oral Suspension -] 30 ml PO Q6HPO PRN cup 01/03/19 Polyethylene Glycol 3350 [Miralax 119 gm Btl -] 17 gm PO DAILY bottle 01/03/19 Sennosides [Senna -] 2 tab PO HS PRN tablet 01/03/19 Simethicone Liquid [Mylicon Liquid -] 40 mg PO Q6H PRN ml 01/04/19 oxyCODONE SR [Oxycontin] 80 mg PO BID #0 tab-cap MDD 2 01/04/19 Minocycline HCl [Minocin (Non Formulary)] 100 mg PO BID #28 capsule 01/30/19
[2019-03-07 12:13] VITALS: PULSE 85; TEMP 98.7
--- NOTE | 2019-03-07 15:51 | OP ---
DATE OF OPERATION: DATE OF DICTATION: 03/06/2019 SURGEON: Albert Moya M.D. PREOPERATIVE DIAGNOSIS: Chronic wound left proximal upper thigh and hip. POSTOPERATIVE DIAGNOSIS: Chronic wound left proximal upper thigh and hip, for wound VAC change and incision, drainage, washout. ANESTHESIA: General anesthesia. OPERATION IN DETAILS: The patient was correctly identified, brought in operating room. Left lower extremity was prepped, draped in the routine manner with Betadine scrub solution, wiped off with alcohol, and DuraPrep applied. General anesthesia applied. Timeout was called. A window drape applied. Lateral decubitus position left side up was the position. The original wound VAC was removed. The tissues appeared to be markedly more healthy than what they did 3-4 days ago. Repeat wound cultures taken. The skin was cleansed with Betadine scrub solution, wiped off with alcohol, and DuraPrep applied. The tissues were washed out with 5 L saline including a Betadine scrub to rid the tissues of . A new wound VAC was inserted, applied, and sealed. The patient was extricated from operating room with a well functioning wound VAC. Plan for discharge: Return to the operating room on Monday. Hopefully to do the combination with Dr. Giuliano Samuel, a plastic surgeon with a view to closure or a flap. The wound itself is dramatically smaller than from before. MD OSVALDO Oconnor/[id number]
== END 2019-03-07 17:44 | disposition home or self-care (01) ==
LOC: JASU-SURG 13:19 → J8W 21:52 → JASU-SURG 03-07 17:44
PROVIDERS: ATTEND Orthopaedic Surgery Orthopaedic Surgery of the Spine
PROC: 2W03X6Z Change Pressure Dressing on Abdominal Wall (ICD-10-PCS; principal; 2019-03-06 15:30)
DX: T81.89XS Other complications of procedures, not elsewhere classified, sequela (principal); Y84.8 Other medical procedures as the cause of abnormal reaction of the patient, or of later complication, without mention of misadventure at the time of the procedure; Y83.8 Other surgical procedures as the cause of abnormal reaction of the patient, or of later complication, without mention of misadventure at the time of the procedure; Y92.89 Other specified places as the place of occurrence of the external cause
CPT/HCPCS: 36415; 80048; 85027; 87070; 87076; 87205; 94760; 97161-GP

== ENCOUNTER 2019-03-18 15:14 | Day surgery (SDC) | payer OTHER ==
[2019-03-18 08:40] VITALS: BMI 23.1
[2019-03-18] MEDS ORDERED: GLYCOPYRROLATE 0.2 MG/1 ML VIAL ONE ×2 (16:43→16:44)
[2019-03-18] MEDS ORDERED: fentaNYL CITRATE 250 MCG/5 ML VIAL ONE (20:39)
[2019-03-18] MEDS ORDERED: PROPOFOL 20 ML ONE (20:39)
[2019-03-18] MEDS ORDERED: MIDAZOLAM HCL 2 MG/2 ML SINGLE DOSE VIAL ONE ×3 (20:39→21:09)
[2019-03-18] MEDS ORDERED: KETAMINE HCL 200 MG/20 ML VIAL ONE (21:10)
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
--- NOTE | 2019-03-18 21:51 | OP ---
Operative Note - Note: Operative Date: 03/18/19 Pre-Operative Diagnosis: Chronic wound L hip Operation: Iand D Wound VAC change Surgeon: Albert Moya Anesthesia: General Drains & Tubes with Location: Wound VAC Operative Report Dictated: Yes
--- NOTE | 2019-03-18 22:55 | OP ---
DATE OF OPERATION: 03/18/2019 The patient was brought into the hospital today for a revision incision, drainage, wound vacuum assisted closure change. SURGEON: lAbert Moya MD ENGAGEMENT ENGINEER: Nursing staff [facility]. ANESTHESIA: Ketamine conscious sedation. OPERATION PERFORMED: Removal of wound vacuum assisted closure, extensive washout, debridement, and reinsertion of wound vacuum assisted closure, left proximal lateral thigh. OPERATION DETAILS: The patient correctly identified, brought to the operating room. Left lower extremity was prepped and draped in the routine manner with Betadine scrub solution, wiped off with alcohol, DuraPrep applied. This wound VAC had stopped working for 2 days, and the tissues were purulent and appeared with a layer of infected material on it. I used a number of betadine brushes to wash off the tissues. The wound was thoroughly lavaged and cleaned completely. Thereafter, 5-L saline washout repeat wound VAC was inserted today. This is Monday, and I am aiming at re-doing this in 3-4 days' time. The wound, as always, is slowly with time shrinking, and hoping I will be able to get a delayed primary closure here fairly soon. MD OSVALDO Oconnor/[id number] MTDD
[2019-03-18] MEDS ORDERED: ONDANSETRON 4 MG/2 ML VIAL IVPUSH PRN (23:44)
[2019-03-18] MEDS ORDERED: PROMETHAZINE HCL 25 MG/1 ML VIAL IVPUSH PRN (23:44)
[2019-03-18] MEDS ORDERED: LACTATED RINGERS SOLUTION 1,000 ML IV SCH (23:45)
[2019-03-19] MEDS: oxyCODONE HCL 5 MG TABLET PO PRN ×2 (07:05→13:36)
[2019-03-19] MEDS ORDERED: LISINOPRIL 10 MG TABLET (FP) PO SCH (10:00)
--- NOTE | 2019-03-19 12:06 | DS ---
Physical Examination Vital Signs: Vital Signs Temperature 97.5 F L 03/19/19 05:47 Pulse Rate 85 03/19/19 05:47 Respiratory Rate 20 03/19/19 05:47 Blood Pressure 131/67 03/19/19 05:47 O2 Sat by Pulse Oximetry (%) 100 03/19/19 09:07 Constitutional: Yes: Well Nourished, No Distress, Anxious Eyes: Yes: WNL HENT: Yes: WNL Neck: Yes: WNL Cardiovascular: Yes: WNL Respiratory: Yes: WNL Gastrointestinal: Yes: WNL Renal/: Yes: WNL Musculoskeletal: Yes: WNL Extremities: Yes: WNL Edema: No Peripheral Pulses WNL: Yes Integumentary: Yes: Erythema (left hip) Wound/Incision: Yes: Clean/Dry Neurological: Yes: WNL ...Motor Strength: WNL Psychiatric: Yes: WNL Discharge Summary Reason For Visit: LOOSENING OF INTERNAL LEFT HIP Condition: Good - Instructions Disposition: HOME - Home Medications Comprehensive Discharge Medication List: Ambulatory Orders Diazepam [Valium] 5 mg PO HS PRN 08/24/18 Duloxetine HCl [Cymbalta] 30 mg PO BID 08/24/18 Omeprazole 40 mg PO DAILY 08/24/18 Oxybutynin Chloride 5 mg PO TID 08/24/18 Oxycodone HCl 30 mg PO Q4H PRN 08/24/18 Pregabalin [Lyrica] 100 mg PO TID 08/24/18
[2019-03-19 13:24] VITALS: PULSE 89
[2019-03-19 15:30] VITALS: BP 135/65; TEMP 98.1
== END 2019-03-19 18:01 | disposition home or self-care (01) ==
LOC: JASU-SURG 15:14 → J4S 03-19 00:23 → JASU-SURG 03-19 18:01
PROVIDERS: ATTEND Internal Medicine
PROC: 2W0PX6Z Change Pressure Dressing on Left Upper Leg (ICD-10-PCS; 2019-03-18)
PROC: 0JDM0ZZ Extraction of Left Upper Leg Subcutaneous Tissue and Fascia, Open Approach (ICD-10-PCS; principal; 2019-03-18 16:30)
DX: Z48.01 Encounter for change or removal of surgical wound dressing (principal)
CPT/HCPCS: 94760

== ENCOUNTER 2019-04-05 11:07 | Inpatient (IN) | payer OTHER | END 2019-04-09 20:00 | disposition home or self-care (01) | LOC: FASUSAT 17:53 → J8W 04-08 12:34 → FM/S 04-07 18:35 → FASUSAT 11:07 → J8W 04-08 12:40 → FM/S 17:53 ==

== ENCOUNTER 2019-04-29 18:10 | Inpatient (IN) | payer OTHER ==
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
[2019-04-29 21:04] LABS: VENOUS PC02 54.3 mmHg (41-51); VENOUS PH 7.24 (7.31-7.41)
[2019-04-29 21:11] LABS: BASO % 0.5 % (0-2.0); EOS % 7.4 % (0-4.5); HEMATOCRIT 31.2 % (32.4-45.2); HEMOGLOBIN 10.1 GM/dL (10.7-15.3); MCH 25.5 pg (25.7-33.7); MCHC 32.5 g/dl (32.0-36.0); MEAN CELL VOLUME 78.4 fl (80-96); MEAN PLT VOLUME 7.2 fl (7.5-11.1); NEUT % 68.1 % (42.8-82.8); PLATELET COUNT 299 K/MM3 (134-434); RBC 3.97 M/mm3 (3.60-5.2); RDW 16.5 % (11.6-15.6)
[2019-04-29 21:50] LABS: ALBUMIN 3.1 g/dl (3.4-5.0); BILIRUBIN,TOTAL 0.2 mg/dL (0.2-1); BLOOD UREA NITROGEN 16.9 mg/dL (7-18); CALCIUM 9.1 mg/dL (8.5-10.1); CREATININE 1.3 mg/dL (0.55-1.3); POTASSIUM 3.6 mmol/L (3.5-5.1)
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
[2019-04-29 23:48] LABS: EPI CELLS 11.6 /HPF (0-5/HPF); HYALINE CASTS 24 /lpf (0-8); PH,URINE 5.5 (5.0-8.0); URINE APPEARANCE Error; URINE BACTERIA 4327.5 /hpf (NEGATIVE); URINE BILIRUBIN NEGATIVE (NEGATIVE); URINE COLOR YELLOW; URINE GLUCOSE (UA) NEGATIVE (NEGATIVE); URINE KETONE NEGATIVE (NEGATIVE); URINE LEUK ESTERASE 2+ (NEGATIVE); URINE NITRITE POSITIVE (NEGATIVE); URINE PROTEIN NEGATIVE (NEGATIVE); URINE RBC 1 /hpf (0-4); URINE UROBILINOGEN 0.2 mg/dL (0.2-1.0); URINE WBC 18 /hpf (0-5)
[2019-04-29 23:52] LABS: ARTERIAL BLD GAS O2 SATURATION 96.1 % (95-98); ARTERIAL BLOOD GAS BASE EXCESS -3.4 meq/l (-2-2); ARTERIAL BLOOD GAS PCO2 39.4 mmHg (35-45); ARTERIAL BLOOD GAS PO2 85.7 mmHg (80-105); ARTERIAL BLOOD GAS pH 7.35 (7.35-7.45); CARBOXYHEMOGLOBIN 1.9 % (0-2)
[2019-04-29 23:53] LABS: ALLENS TEST POSITIVE
[2019-04-29 23:56] LABS: COCAINE, UR NEGATIVE ng/ml (CUTOFF=300); METHADONE, UR NEGATIVE ng/ml (CUTOFF=300); PHENCYCLIDINE,URINE NEGATIVE ng/ml (CUTOFF=25); URINE AMPHETAMINES NEGATIVE ng/ml (CUTOFF=500)
[2019-04-30 01:15] VITALS: BMI 25.9
[2019-04-30 02:10] LABS: URINE BARBITURATES POSITIVE ng/ml (CUTOFF=200)
[2019-04-30 02:11] LABS: OPIATES, URI POSITIVE ng/ml (CUTOFF=300); URINE BENZODIAZEPINES POSITIVE ng/ml (CUTOFF=200)
[2019-04-30 07:22] LABS: INR 1.12 (0.83-1.09); PROTHROMBIN TIME (PATIENT) 13.2 SEC (9.7-13.0)
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
--- NOTE | 2019-04-30 11:26 | EKG ---
Test Reason : Blood Pressure : / mmHG Vent. Rate : 076 BPM Atrial Rate : 076 BPM P-R Int : 180 ms QRS Dur : 086 ms QT Int : 398 ms P-R-T Axes : 051 022 031 degrees QTc Int : 447 ms NORMAL SINUS RHYTHM NORMAL ECG WHEN COMPARED WITH ECG OF 27-DEC-2018 10:03, NO SIGNIFICANT CHANGE WAS FOUND Confirmed by Ethan Newman MD ([id number]) on 04/30/2019 11:25:44 AM Referred By: Confirmed By:Ethan Newman MD
[2019-04-30] MEDS ORDERED: PROPOFOL 20 ML ONE (19:06)
[2019-04-30] MEDS ORDERED: KETOROLAC TROMETHAMINE 30 MG/1 ML VIAL ONE (19:33)
[2019-04-30] MEDS ORDERED: DEXAMETHASONE SOD PHOSPHATE 4 MG/1 ML VIAL ONE (19:33)
[2019-04-30] MEDS ORDERED: ACETAMINOPHEN/CAFFEINE/BUTALBITAL 1 TAB PO PRN (19:59)
--- NOTE | 2019-04-30 20:07 | PN ---
Progress Note (short form) - Note Progress Note: Problem Chronic Left proximolateral thigh hip wound Management Iand D and repeat wound vac performed D/C home tomorrow Cultures taken hopefully will excise wound edges and provide a delayed primary closure next visit.
--- NOTE | 2019-04-30 20:09 | OP ---
Operative Note - Note: Operative Date: 04/30/19 Pre-Operative Diagnosis: Chronic proximolateral thigh hip wound Operation: I and D Wound VAC change Surgeon: Albert Moya Anesthesiologist/CHEMIST PHYSICAL: Giuliano Santo Anesthesia: General Estimated Blood Loss (mls): 0 Drains & Tubes with Location: Wound VAC Operative Report Dictated: Yes
--- NOTE | 2019-04-30 21:22 | OP ---
DATE OF OPERATION: DATE OF DICTATION: 04/30/2019 PREOPERATIVE DIAGNOSIS: Chronic deep wound, proximal left thigh and hip. POSTOPERATIVE DIAGNOSIS: Chronic deep wound, proximal left thigh and hip. OPERATION PERFORMED: 1. Removal of the wound VAC. 2. Incision and drainage. 3. Insertion of new wound VAC. ANESTHESIA: General. PROCEDURE: Patient correctly identified, brought to the operating room, placed in the lateral decubitus position, left side up. This was under general anesthesia. Timeout was called. The original wound VAC was removed. The wounds appeared fairly healthy and granulating well, no excessive purulence noted. Culture sticks were taken for MC&S. The wounds were thoroughly lavaged with a combination with 5 L of saline. The tissues were also washed out with Betadine scrub followed by repeat washout. The wound was packed with wound VAC sponges and the entire skin painted with DuraPrep and the entire wound and sponges sealed with the appropriate wound VAC sealing plus drapes. An Ioban was placed over this. No complications, operation went well. The nature of this wound has reached a point where I am going to attempt a delayed primary closure by excising the wound edges and closing the tissues. The problem is there is still relevant deep space which may be problematic with this and leave a chronic sinus and this is what I am trying to prevent. The other option is to provide it with a muscle flap, which I have discussed with plastic surgeons. I have elected not to do this because of further mutilation of her limb accordingly. Hopefully, this will take place in the next visit to the OR. MD OSVALDO Oconnor/[id number]
[2019-04-30] MEDS ORDERED: ONDANSETRON 4 MG/2 ML VIAL IVPUSH PRN (22:39)
[2019-04-30] MEDS ORDERED: MAGNESIUM HYDROX 2400MG/30ML ORAL SUSPENSION 30 ML CUP PO PRN (22:39)
[2019-04-30] MEDS ORDERED: MAG HYDROX/AL HYDROX/SIMETH 30 ML UNIT-DOSE CUP PO PRN (22:39)
[2019-04-30] MEDS ORDERED: LACTATED RINGERS SOLUTION 1,000 ML IV SCH (22:45)
[2019-05-01] MEDS ORDERED: DEXTROSE 5%-WATER - 50 ML IVPB ONE ×4 (00:45→11:57)
[2019-05-01] MEDS ORDERED: ceFAZolin SODIUM 1 GM VIAL ONE ×3 (00:45→11:57)
[2019-05-01] MEDS: CEFAZOLIN 1 GM in DEXTROSE 5%-WATER - 50 ML IVPB SCH ×3 (00:49→11:59)
[2019-05-01] MEDS ORDERED: PANTOPRAZOLE 40 MG TABLET (FP) PO SCH (10:00)
[2019-05-01] MEDS ORDERED: SENNOSIDES/DOCUSATE COMBO (SENNA PLUS) TABLET (UD) PO SCH (10:00)
[2019-05-01] MEDS ORDERED: CEFTRIAXONE 1 GM in DEXTROSE 5%-WATER - 50 ML IVPB SCH (10:00)
[2019-05-01] MEDS ORDERED: ASPIRIN 325 MG TABLET PO SCH (10:00)
[2019-05-01] MEDS ORDERED: cefTRIAXone SODIUM 1 GM VIAL ONE (10:24)
[2019-05-01 10:28] LABS: BLOOD UREA NITROGEN 14.3 mg/dL (7-18); CALCIUM 8.8 mg/dL (8.5-10.1); POTASSIUM 3.5 mmol/L (3.5-5.1)
[2019-05-01] MEDS: oxyCODONE HCL 5 MG TABLET PO PRN ×2 (10:28→16:33)
[2019-05-01 10:58] LABS: HEMATOCRIT 30.1 % (32.4-45.2); MCH 25.3 pg (25.7-33.7); MEAN CELL VOLUME 76.7 fl (80-96); MEAN PLT VOLUME 7.4 fl (7.5-11.1); PLATELET COUNT 328 K/MM3 (134-434); RBC 3.93 M/mm3 (3.60-5.2); RDW 15.9 % (11.6-15.6); WHITE BLOOD COUNT 7.3 K/mm3 (4.0-10.0)
[2019-05-01] MEDS ORDERED: ASPIRIN 81 MG CHEWABLE TABLETS PO SCH (11:00)
[2019-05-01 14:44] VITALS: BP 155/92; PULSE 92; TEMP 97.9
--- NOTE | 2019-05-01 15:18 | PN ---
Progress Note (short form) - Note Progress Note: Anesthesia postop note 63 y/o F s/p GA for I&D left hip POD#1, vss, aao3, no complaints. No anesthesia complications.
--- NOTE | 2019-05-01 18:58 | DS ---
Physical Examination Vital Signs: Vital Signs Temperature 97.9 F 05/01/19 14:44 Pulse Rate 92 H 05/01/19 14:44 Respiratory Rate 20 05/01/19 14:44 Blood Pressure 155/92 05/01/19 14:44 O2 Sat by Pulse Oximetry (%) 97 04/30/19 21:00 Constitutional: Yes: Well Nourished, No Distress Eyes: Yes: WNL HENT: Yes: WNL Neck: Yes: WNL Cardiovascular: Yes: WNL Respiratory: Yes: WNL Gastrointestinal: Yes: WNL Renal/: Yes: WNL Musculoskeletal: Yes: Joint Stiffness Extremities: Yes: WNL Edema: No Peripheral Pulses WNL: Yes Integumentary: Yes: WNL Wound/Incision: Yes: Clean/Dry, Well Approximated Neurological: Yes: WNL ...Motor Strength: WNL Psychiatric: Yes: WNL Labs: CBC, BMP 05/01/19 09:28 05/01/19 09:28 Discharge Summary Reason For Visit: STUPOR Current Active Problems Obtunded (Acute) Condition: Fair - Instructions Diet, Activity, Other Instructions: Maintain wound vac until seen in office for further instruction Referrals: Albert Moya MD [Staff Physician] - (call for appoitment to see in office tomorrow 05/02 ) - Home Medications Comprehensive Discharge Medication List: Ambulatory Orders Diazepam [Valium] 5 mg PO HS PRN 08/24/18 Omeprazole 40 mg PO DAILY 08/24/18 Oxybutynin Chloride 5 mg PO TID 08/24/18 Duloxetine HCl [Cymbalta] 30 mg PO BID 15 Days #30 capsule. 03/19/19 Lisinopril [Prinivil] 10 mg PO DAILY 30 Days #30 tablet 03/19/19 Pregabalin [Lyrica] 100 mg PO TID #30 capsule MDD 3 03/19/19 Aspirin [ASA -] 81 mg PO DAILY 03/29/19 Acetaminophen/Caffeine/Butalb [Fioricet -] 1 tablet PO Q8H PRN 3 Days #20 tablet MDD 3 04/09/19 Oxycodone HCl 30 mg PO Q4H PRN 3 Days #10 tablet MDD 6 04/09/19 Topiramate [Topamax -] 25 mg PO BID 15 Days #30 tablet 04/09/19
== END 2019-05-01 19:04 | disposition home or self-care (01) | DRG 605 ==
LOC: JER 18:10 → JERBED 22:54 → J6S 04-30 00:17
PROVIDERS: ADMIT Internal Medicine; ATTEND Internal Medicine
PROC: 3E10X8Z Irrigation of Skin and Mucous Membranes using Irrigating Substance (ICD-10-PCS; 2019-04-30)
PROC: 2W0PX6Z Change Pressure Dressing on Left Upper Leg (ICD-10-PCS; 2019-04-30)
PROC: 0H9JXZX Drainage of Left Upper Leg Skin, External Approach, Diagnostic (ICD-10-PCS; principal; 2019-04-30 15:00)
DX: S71.102A Unspecified open wound, left thigh, initial encounter (principal); T76.11XA Adult physical abuse, suspected, initial encounter; N39.0 Urinary tract infection, site not specified; I10 Essential (primary) hypertension; F32.9 Major depressive disorder, single episode, unspecified; F41.9 Anxiety disorder, unspecified; G89.29 Other chronic pain; M25.552 Pain in left hip; F13.10 Sedative, hypnotic or anxiolytic abuse, uncomplicated; F11.10 Opioid abuse, uncomplicated; Z96.641 Presence of right artificial hip joint; Z96.611 Presence of right artificial shoulder joint; Z96.612 Presence of left artificial shoulder joint; X58.XXXA Exposure to other specified factors, initial encounter; Y93.89 Activity, other specified; Y92.89 Other specified places as the place of occurrence of the external cause; Y99.8 Other external cause status
CPT/HCPCS: 36415; 36600; 70450-TC; 71260-TC; 72125-TC; 73701-TC-RT; 74177-TC; 80048; 80053; 80307; 81003; 82140; 82375; 82803; 83050; 83605; 85025; 85027; 85610; 85730; 86850; 86900; 86901; 87040; 87070; 87077; 87086; 87186; 87205; 93005; 93010; 94760; 97116-GP; 97161-GP; 99284-25

== ENCOUNTER → 2019-04-29 | Day surgery (SDC) | payer OTHER | LOC: JASU-SURG 15:25 ==

== ENCOUNTER 2019-05-27 10:04 | Inpatient (IN) | payer OTHER ==
[2019-05-27] MEDS ORDERED: PROMETHAZINE HCL 25 MG/1 ML VIAL IVPUSH PRN (14:53)
[2019-05-27] MEDS ORDERED: ONDANSETRON 4 MG/2 ML VIAL IVPUSH PRN (14:53)
--- NOTE | 2019-05-27 15:53 | PN ---
Progress Note (short form) - Note Progress Note: 64F s/p LEFT hip wound vac exchange POD #0. -Pain control. -DVT PPx: - Mechanical: SOUTH's, SCD's. - Chemical: ASA 325mg POD qD. -Incentive spirometry. -PT/OT/Rehab, OOB. -NWB LLE. -f/u post-op TOV. -Regular diet. -Resume home medications. -OK to discharge home when medically stable. -Contact [facility] [place] office to schedule next LEFT hip I&D: . Albert Moya MD (Orthopaedic Surgery).
--- NOTE | 2019-05-27 15:53 | OP ---
Operative Note - Note: Operative Date: 05/27/19 Pre-Operative Diagnosis: Chronic left hip wound Operation: Left hip wound irrigation, debridement and application of woundvac Findings: Wound nearly ready for delayed primary closure Post-Operative Diagnosis: Same as Pre-op Surgeon: Albert Moya Anesthesiologist/BUFFET MANAGER: Ethan Rollins Anesthesia: General Drains & Tubes with Location: 1 x left hip wound vac Fluid Volume Replaced (mls): 500 (Crystalloid) Operative Report Dictated: Yes
[2019-05-28] MEDS: LACTATED RINGERS SOLUTION 1,000 ML IV SCH ×2 (01:13→15:34)
[2019-05-28] MEDS: oxyCODONE HCL 5 MG TABLET PO PRN ×4 (02:22→21:15)
--- NOTE | 2019-05-28 13:26 | OP ---
DATE OF OPERATION: DATE OF DICTATION: 05/27/2019 SURGEON: Albert Moya MD ANESTHESIA: General. PREOPERATIVE DIAGNOSIS: Chronic left wound proximal lateral thigh, left hip for wound VAC exchange. POSTOPERATIVE DIAGNOSIS: Chronic left wound proximal lateral thigh, left hip for wound VAC exchange. OPERATION PERFORMED: Incision and drainage, washout, debridement, and insertion of clean, new wound VAC. DESCRIPTION OF PROCEDURE: Patient correctly identified. Brought to the operating room under general anesthesia. Placed in the lateral decubitus position left side up. All appropriate bony points padded. The original wound VAC was removed. The tissues appeared healthy. A thin sliver of fibrous material covering the granulation tissue. This was readily washed out. Cultures were taken for MC&S. Suspicious of pseudomonas infection based on the odor as well as the tinge of green noted on the fibrinous material. An extensive washout performed with 5 L of saline. Also brushing the tissues with Betadine scrub and Betadine solution utilized. The wounds were then repeatedly washed again. The measurements of the wound were 7 cm long , 3 cm wide, and 5 cm deep. A new wound VAC was applied, sealed appropriately. Once the patient was transferred from the operating room, the seal remained solid, seated , and uncomplicated. Plan for delayed primary closure. This wound has now reached a point where it is almost ready for again attempt at wound closure and possible muscle flap for fear of mutilation of tissues further. Albert Moya MD [id number] MTDD
--- NOTE | 2019-05-28 14:42 | CON.ID ---
Consult Consult Specialty:: infectious diseases Referred by:: Dr Moya Reason for Consultation:: fever,pos op - History of Present Illness Chief Complaint: fever History of Present Illness: 63 year old female with history of chronic left hip pain, hypertension, anxiety , depression, with a very complicated history treated multiple times for multiple problems including sepsis and the hip wound which is chronic Left hip wound irrigation, debridement and application of woundvac patient was doing well post op then started spiking fever.and was not feeling well. patient also mentions that she has foul smelling urine patient is taking levaquin chronically and antifungal - History Source History Provided By: Patient, Medical Record Limitations to Obtaining History: Poor Historian - Past Medical History Cardio/Vascular: Yes: HTN Psych: Yes: Depression - Alcohol/Substance Use Hx Alcohol Use: No - Smoking History Smoking history: Unknown if ever smoked Have you smoked in the past 12 months: Yes Aproximately how many cigarettes per day: 5 Home Medications - Allergies Allergies/Adverse Reactions: Allergies Allergy/AdvReac Type Severity Reaction Status Date / Time etomidate Allergy Severe Rash Verified 05/27/19 10:52 latex Allergy Severe Rash Verified 05/27/19 10:52 morphine Allergy Severe Rash Verified 05/27/19 10:52 tomato Allergy Verified 05/27/19 10:52 - Home Medications Home Medications: Ambulatory Orders Diazepam [Valium] 5 mg PO HS PRN 08/24/18 Omeprazole 40 mg PO DAILY 08/24/18 Oxybutynin Chloride 5 mg PO TID 08/24/18 Duloxetine HCl [Cymbalta] 30 mg PO BID 15 Days #30 capsule. 03/19/19 Lisinopril [Prinivil] 10 mg PO DAILY 30 Days #30 tablet 03/19/19 Pregabalin [Lyrica] 100 mg PO TID #30 capsule MDD 3 03/19/19 Oxycodone HCl 30 mg PO Q4H PRN 3 Days #10 tablet MDD 6 04/09/19 Pantoprazole Sodium [Protonix -] 40 mg PO DAILY tablet.ec 05/01/19 Sennosides/Docusate Sodium [Pericolace -] 2 tablet PO BID tablet 05/01/19 Review of Systems - Review of Systems Constitutional: reports: Fever Eyes: reports: No Symptoms HENT: reports: No Symptoms Neck: reports: No Symptoms Cardiovascular: reports: No Symptoms Respiratory: reports: No Symptoms Gastrointestinal: reports: No Symptoms Genitourinary: reports: No Symptoms Musculoskeletal: reports: No Symptoms Integumentary: reports: No Symptoms Neurological: reports: No Symptoms Endocrine: reports: No Symptoms Hematology/Lymphatic: reports: No Symptoms Psychiatric: reports: No Symptoms Physical Exam Vital Signs: Vital Signs Temperature 101.9 F H 05/28/19 09:00 Pulse Rate 120 H 05/28/19 09:00 Respiratory Rate 20 05/28/19 09:00 Blood Pressure 148/88 05/28/19 09:00 O2 Sat by Pulse Oximetry (%) 92 L 05/27/19 22:32 Constitutional: Yes: Calm Eyes: Yes: Conjunctiva Clear Cardiovascular: Yes: Regular Rate and Rhythm Respiratory: Yes: Regular, CTA Bilaterally Gastrointestinal: Yes: Normal Bowel Sounds, Soft Musculoskeletal: Yes: WNL Extremities: Yes: Other Wound/Incision: Yes: Clean/Dry, Other (wound vac in place) Neurological: Yes: Alert Imaging - Results Chest X-ray: Report Reviewed, Image Reviewed Assessment/Plan patient post op from debridement of the hip joint hip joint fever r/o uti plan await for all cx report will start patient on zosyn monitor rest as per the team
[2019-05-28] MEDS ORDERED: PIPERACILLIN/TAZOBACTAM 3.375 GM VIAL IVPB ONE ×2 (15:01→18:00)
[2019-05-28] MEDS ORDERED: DEXTROSE 5%-WATER - 50 ML IVPB ONE ×2 (15:02→18:00)
[2019-05-28] MEDS: PIPERACILLIN/TAZOB 3.375 GM 3.375 GM in DEXTROSE 5%-WATER - 50 ML IVPB SCH ×2 (15:36→18:44)
[2019-05-28] MEDS: ACETAMINOPHEN 325 MG TABLET (FP) PO PRN (16:29)
[2019-05-28 22:45] LABS: URINE APPEARANCE CLOUDY; URINE COLOR YELLOW
[2019-05-28 22:46] LABS: URINE BILIRUBIN NEGATIVE (NEGATIVE); URINE GLUCOSE (UA) NEGATIVE (NEGATIVE); URINE KETONE TRACE (NEGATIVE)
[2019-05-28 22:47] LABS: URINE NITRITE POSITIVE (NEGATIVE); URINE PROTEIN 1+ (NEGATIVE)
[2019-05-28 22:48] LABS: URINE LEUK ESTERASE 3+ (NEGATIVE)
[2019-05-29] MEDS: diphenhydrAMINE HCL 25 MG CAPSULE (FP) PO PRN ×2 (00:11→14:37)
[2019-05-29 00:51] LABS: URINE RBC 5 /hpf (0-4)
[2019-05-29 00:52] LABS: EPI CELLS 5 /HPF (0-5/HPF); HYALINE CASTS 0 /lpf (0-8); URINE BACTERIA 4570 /hpf (NEGATIVE); URINE WBC 3560 /hpf (0-5)
[2019-05-29] MEDS ORDERED: PIPERACILLIN/TAZOBACTAM 3.375 GM VIAL IVPB ONE ×3 (01:04→17:25)
[2019-05-29] MEDS ORDERED: DEXTROSE 5%-WATER - 50 ML IVPB ONE ×3 (01:05→17:26)
[2019-05-29] MEDS: oxyCODONE HCL 5 MG TABLET PO PRN ×4 (01:16→21:12)
[2019-05-29] MEDS: PIPERACILLIN/TAZOB 3.375 GM 3.375 GM in DEXTROSE 5%-WATER - 50 ML IVPB SCH ×4 (01:28→17:28)
[2019-05-29] MEDS: LACTATED RINGERS SOLUTION 1,000 ML IV SCH ×2 (10:00→17:39)
--- NOTE | 2019-05-29 11:03 | PN ---
Progress Note, Physician History of Present Illness: patient stable no new issues - Current Medication List Current Medications: Active Medications Acetaminophen (Tylenol -) 650 mg PO Q4H PRN PRN Reason: FEVER Last Admin: 05/28/19 16:29 Dose: 650 mg Diphenhydramine HCl (Benadryl -) 25 mg PO Q6H PRN PRN Reason: ITCHING Last Admin: 05/29/19 00:11 Dose: 25 mg Fentanyl (Sublimaze Injection -) 50 mcg IVPUSH Q5M PRN PRN Reason: PAIN-PACU ORDER X 4 DOSES ONLY Lactated Ringer's (Lactated Ringers Solution) 1,000 mls @ 125 mls/hr IV ASDIR ELKE Last Admin: 05/28/19 15:34 Dose: 125 mls/hr Piperacillin Sod/Tazobactam (Sod 3.375 gm/ Dextrose) 50 mls @ 100 mls/hr IVPB Q8H-IV ELKE; Protocol Last Admin: 05/29/19 01:40 Dose: 100 mls/hr Ondansetron HCl (Zofran Injection) 4 mg IVPUSH Q6H PRN PRN Reason: NAUSEA AND/OR VOMITING Last Admin: 05/28/19 10:20 Dose: 4 mg Oxycodone HCl (Roxicodone -) 30 mg PO Q4H PRN PRN Reason: PAIN LEVEL 6-10 Last Admin: 05/29/19 01:16 Dose: 30 mg Promethazine HCl (Phenergan Injection -) 12.5 mg IVPUSH Q6H PRN PRN Reason: NAUSEA-FOR RESCUE AFTER 15 MIN - Objective Vital Signs: Vital Signs Temperature 97.8 F 05/29/19 06:47 Pulse Rate 64 05/29/19 06:47 Respiratory Rate 20 05/29/19 06:47 Blood Pressure 106/70 05/29/19 06:47 O2 Sat by Pulse Oximetry (%) 92 L 05/27/19 22:32 Constitutional: Yes: No Distress, Calm Cardiovascular: Yes: S1, S2 Respiratory: Yes: Regular, CTA Bilaterally Gastrointestinal: Yes: Normal Bowel Sounds, Soft Musculoskeletal: Yes: Other Extremities: Yes: Other Wound/Incision: Yes: Other (wound vac in place) Psychiatric: Yes: Other Assessment/Plan patient post op from debridement of the hip joint hip joint fever r/o uti plan await for all cx report zosyn monitor rest as per the team
[2019-05-29] MEDS ORDERED: PT OWN MED DRAWER 7, Y5N ONE (11:18)
[2019-05-29] MEDS: ACETAMINOPHEN 325 MG TABLET (FP) PO PRN ×2 (12:48→17:38)
[2019-05-29 23:22] VITALS: BMI 27.4
[2019-05-30] MEDS ORDERED: PIPERACILLIN/TAZOBACTAM 3.375 GM VIAL IVPB ONE ×2 (02:09→08:45)
[2019-05-30] MEDS ORDERED: DEXTROSE 5%-WATER - 50 ML IVPB ONE ×2 (02:10→08:45)
[2019-05-30] MEDS: PIPERACILLIN/TAZOB 3.375 GM 3.375 GM in DEXTROSE 5%-WATER - 50 ML IVPB SCH ×3 (03:33→17:34)
[2019-05-30] MEDS: oxyCODONE HCL 5 MG TABLET PO PRN ×3 (03:34→14:42)
[2019-05-30] MEDS: diphenhydrAMINE HCL 25 MG CAPSULE (FP) PO PRN (04:36)
--- NOTE | 2019-05-30 10:21 | PN ---
Progress Note, Physician History of Present Illness: stable no issues itching - Current Medication List Current Medications: Active Medications Acetaminophen (Tylenol -) 650 mg PO Q4H PRN PRN Reason: FEVER Last Admin: 05/29/19 17:38 Dose: 650 mg Diphenhydramine HCl (Benadryl -) 25 mg PO Q6H PRN PRN Reason: ITCHING Last Admin: 05/30/19 04:36 Dose: 25 mg Fentanyl (Sublimaze Injection -) 50 mcg IVPUSH Q5M PRN PRN Reason: PAIN-PACU ORDER X 4 DOSES ONLY Lactated Ringer's (Lactated Ringers Solution) 1,000 mls @ 125 mls/hr IV ASDIR ELKE Last Admin: 05/29/19 17:39 Dose: Not Given Piperacillin Sod/Tazobactam (Sod 3.375 gm/ Dextrose) 50 mls @ 100 mls/hr IVPB Q8H-IV ELKE; Protocol Last Admin: 05/30/19 03:33 Dose: 100 mls/hr Ondansetron HCl (Zofran Injection) 4 mg IVPUSH Q6H PRN PRN Reason: NAUSEA AND/OR VOMITING Last Admin: 05/28/19 10:20 Dose: 4 mg Oxycodone HCl (Roxicodone -) 30 mg PO Q4H PRN PRN Reason: PAIN LEVEL 6-10 Last Admin: 05/30/19 03:34 Dose: 30 mg Promethazine HCl (Phenergan Injection -) 12.5 mg IVPUSH Q6H PRN PRN Reason: NAUSEA-FOR RESCUE AFTER 15 MIN - Objective Vital Signs: Vital Signs Temperature 99.8 F H 05/30/19 07:14 Pulse Rate 80 05/30/19 07:14 Respiratory Rate 20 05/30/19 07:14 Blood Pressure 132/76 05/30/19 07:14 O2 Sat by Pulse Oximetry (%) 100 05/29/19 23:06 Constitutional: Yes: No Distress, Calm Cardiovascular: Yes: S1, S2 Respiratory: Yes: Regular, CTA Bilaterally Gastrointestinal: Yes: Normal Bowel Sounds, Soft Musculoskeletal: Yes: Other Extremities: Yes: Other Wound/Incision: Yes: Other (wound vac present) Neurological: Yes: Alert, Oriented Psychiatric: Yes: Alert, Oriented Assessment/Plan patient post op from debridement of the hip joint hip joint fever uti plan continue zosyn cx results noted if patient does not spike today will stop abx and monitor
[2019-05-30] MEDS: LACTATED RINGERS SOLUTION 1,000 ML IV SCH (15:00)
[2019-05-30 21:00] VITALS: BP 116/78; PULSE 68; TEMP 98.5
== END 2019-05-30 20:58 | disposition home or self-care (01) | DRG 949 ==
LOC: JASU-SURG 10:04 → J8W 18:01 → JASU-SURG 18:02 → J8W 18:02 → JERBED 05-29 18:17 → UNDOADMIN 05-29 18:17 → JERBED 05-29 20:33 → J8W 05-29 20:33
PROVIDERS: ADMIT Orthopaedic Surgery Orthopaedic Surgery of the Spine; ATTEND Orthopaedic Surgery Orthopaedic Surgery of the Spine
PROC: 3E1038X Irrigation of Skin and Mucous Membranes using Irrigating Substance, Percutaneous Approach, Diagnostic (ICD-10-PCS; 2019-05-27)
PROC: 2W09X6Z Change Pressure Dressing on Left Upper Extremity (ICD-10-PCS; 2019-05-27)
PROC: 0H9JXZX Drainage of Left Upper Leg Skin, External Approach, Diagnostic (ICD-10-PCS; 2019-05-27)
PROC: 0JDM3ZZ Extraction of Left Upper Leg Subcutaneous Tissue and Fascia, Percutaneous Approach (ICD-10-PCS; principal; 2019-05-27 12:00)
DX: T84.50XD Infection and inflammatory reaction due to unspecified internal joint prosthesis, subsequent encounter (principal); N39.0 Urinary tract infection, site not specified; S71.002A Unspecified open wound, left hip, initial encounter; Y83.8 Other surgical procedures as the cause of abnormal reaction of the patient, or of later complication, without mention of misadventure at the time of the procedure; I10 Essential (primary) hypertension; F41.8 Other specified anxiety disorders; F32.9 Major depressive disorder, single episode, unspecified
CPT/HCPCS: 71045-TC-FY; 81003; 87040; 87070; 87077; 87086; 87186; 87205; 94760

== ENCOUNTER 2019-06-03 10:38 | Inpatient (IN) | payer OTHER ==
[2019-05-31 17:56] VITALS: BMI 27.4
[2019-06-03] MEDS ORDERED: SODIUM CHLORIDE 0.9% P/F 10 ML VIAL IJ ONE (12:19)
[2019-06-03] MEDS ORDERED: PROPOFOL 20 ML ONE ×2 (12:19)
[2019-06-03] MEDS ORDERED: ceFAZolin SODIUM 1 GM VIAL ONE ×2 (12:19→20:42)
[2019-06-03] MEDS ORDERED: MIDAZOLAM HCL 2 MG/2 ML SINGLE DOSE VIAL ONE (12:19)
[2019-06-03] MEDS ORDERED: ONDANSETRON 4 MG/2 ML VIAL IVPUSH PRN (12:30)
[2019-06-03] MEDS ORDERED: PROMETHAZINE HCL 25 MG/1 ML VIAL IVPB PRN (12:30)
[2019-06-03] MEDS ORDERED: oxyCODONE HCL 5 MG TABLET PO PRN (12:30)
[2019-06-03] MEDS ORDERED: ceFAZolin SODIUM 1 GM VIAL IVPB ONE (12:41)
[2019-06-03] MEDS ORDERED: VANCOMYCIN 1,000 MG VIAL (RESTRICTED TO ID ONLY) ONE (12:45)
[2019-06-03] MEDS ORDERED: PATIENT'S OWN MEDICATION (NON-FORMULARY) (Oxycodone Hcl [Oxycodone Hcl] 30 MG) PO PRN ×2 (14:42→15:05)
[2019-06-03] MEDS ORDERED: ACETAMINOPHEN 325 MG TABLET (FP) PO PRN (15:05)
--- NOTE | 2019-06-03 15:47 | HP ---
Admitting History and Physical - Admission Chief Complaint: s/p wound debridement with wound closure. Seen in PACU, post surgery under GA. Opens eyes to name History of Present Illness: Patient is a 63 year old female with a significant past medical history of HTN, anxiety, depression, chronic pain and chronic left hip left wound. multiple I & D wound washes, s/p osteotomy left femur, removal of hardware ( explant femoral component) admitted today by Dr Moya for left hip debridement and wound closure. History Source: Medical Record, Caregiver (PACU nurse) Limitations to Obtaining History: Other (s/p general anesthesia) - Past Medical History Cardiovascular: Yes: HTN ...: No Psych: Yes: Depression - Past Surgical History Past Surgical History: Yes: Joint Replacement (THR, multiple wash outs, I&D) - Smoking History Smoking history: Current every day smoker Have you smoked in the past 12 months: Yes Aproximately how many cigarettes per day: 5 - Alcohol/Substance Use Hx Alcohol Use: No Home Medications - Allergies Allergies/Adverse Reactions: Allergies Allergy/AdvReac Type Severity Reaction Status Date / Time etomidate Allergy Severe Rash Verified 06/03/19 11:29 latex Allergy Severe Rash Verified 06/03/19 11:29 morphine Allergy Severe Rash Verified 06/03/19 11:29 tomato Allergy Verified 06/03/19 11:29 - Home Medications Home Medications: Ambulatory Orders Diazepam [Valium] 5 mg PO HS PRN 08/24/18 Omeprazole 40 mg PO DAILY 08/24/18 Oxybutynin Chloride 5 mg PO TID 08/24/18 Duloxetine HCl [Cymbalta] 30 mg PO BID 15 Days #30 capsule. 03/19/19 Lisinopril [Prinivil] 10 mg PO DAILY 30 Days #30 tablet 03/19/19 Pregabalin [Lyrica] 100 mg PO TID #30 capsule MDD 3 03/19/19 Oxycodone HCl 30 mg PO Q4H PRN 3 Days #10 tablet MDD 6 04/09/19 Pantoprazole Sodium [Protonix -] 40 mg PO DAILY tablet.ec 05/01/19 Sennosides/Docusate Sodium [Pericolace -] 2 tablet PO BID tablet 05/01/19 Amox-Tr/K Cl [Augmentin 250-125mg Tablet -] 1 tab PO BID 06/03/19 Family Disease History - Family Disease History Family History: Unable to Obtain (patient in PACU, not able to give full history ) Review of Systems Unable to obtain ROS, reason: unable to obtain Physical Examination Vital Signs: Vital Signs Temperature 97.3 F L 06/03/19 14:24 Pulse Rate 89 06/03/19 15:00 Respiratory Rate 14 06/03/19 15:00 Blood Pressure 122/64 06/03/19 15:00 O2 Sat by Pulse Oximetry (%) 95 06/03/19 15:00 Constitutional: Yes: Well Nourished, Other (s/p general anesthesia) Eyes: Yes: WNL, Conjunctiva Clear, EOM Intact HENT: Yes: WNL, Atraumatic, Normocephalic Neck: Yes: WNL, Supple, Trachea Midline Cardiovascular: Yes: WNL, Regular Rate and Rhythm Respiratory: Yes: WNL, Regular, CTA Bilaterally, Diminished (at bases) Gastrointestinal: Yes: WNL, Normal Bowel Sounds ...Rectal Exam: Yes: Deferred Renal/: Yes: WNL Breast(s): Yes: WNL Musculoskeletal: Yes: Joint Stiffness, Joint Swelling (Left hip) Edema: Yes Edema: LLE: 1+ (S/P wash out & wound closure), RLE: Trace Peripheral Pulses: Left Radial: 2+, Right Radial: 2+, Left Doralis Pedis: 2+, Right Dorsalis Pedis: 2+, Left Femoral: 2+, Right Femoral: 2+ Integumentary: Yes: Incision (left hip) Wound/Incision: Yes: Dressing Dry and Intact, Draining (FIDELINA drain with sersanguinous output) Psychiatric: Yes: Other (sedated) Problem List - Problems (1) Chronic pain Assessment/Plan: S/P wound closue with debridement of left hip IV fentanyl as per anesthsia resume oxycodone & lyrica after immediate post-op phase from GA Code(s): G89.29 - OTHER CHRONIC PAIN (2) Depression Assessment/Plan: c/w cymbalta when tolerating PO Code(s): F32.9 - MAJOR DEPRESSIVE DISORDER, SINGLE EPISODE, UNSPECIFIED (3) HTN (hypertension) Assessment/Plan: c/w lisinipril when tolerating PO Code(s): I10 - ESSENTIAL (PRIMARY) HYPERTENSION (4) Infection of lower extremity associated with hardware Assessment/Plan: S/P wound decridement and closure c/w ancef ID consultation requested with Dr Pro surgical care as per Dr Moya, primary dressing to be changes by surgical team notify surgery of increased drainage monitor FIDELINA output f/u would cultures monitor cbc f/u with wound center Code(s): T84.7XXA - INFECT/INFLM REACT DUE TO OTH INT ORTH PROSTH DEV/GRFT, INIT (5) Prophylactic measure Assessment/Plan: FEN IVF NPO until after recovered advance diet as tolerated DVT no anticoagulation as per Dr Moya Dispo maintain as inpatient full code discharge planning Code(s): Z29.9 - ENCOUNTER FOR PROPHYLACTIC MEASURES, UNSPECIFIED (6) Anxiety Assessment/Plan: c/w valium Code(s): F41.9 - ANXIETY DISORDER, UNSPECIFIED Visit type - Emergency Visit Emergency Visit: No - New Patient This patient is new to me today: Yes Date on this admission: 06/03/19 - Critical Care Critical Care patient: No
[2019-06-03] MEDS: AMOX TR/POT CLAV 250MG/125MG TABLETS PO SCH ×2 (17:26→22:13)
[2019-06-03] MEDS ORDERED: oxyCODONE HCL 5 MG TABLET ONE ×2 (19:36→19:40)
[2019-06-03] MEDS: oxyCODONE HCL 5 MG TABLET PO PRN (19:40)
[2019-06-03] MEDS: CEFAZOLIN 1 GM in DEXTROSE 5%-WATER 100 ML IVPB SCH (20:45)
--- NOTE | 2019-06-03 20:48 | OP ---
DATE OF OPERATION: 06/03/2019 SURGEON: Albert Moya MD LUSTER APPLICATOR: CYNTHIA Carreon PREOPERATIVE DIAGNOSIS: Chronic hip wound with associated previous infection and heterotopic ossification and excision arthroplasty, left hip. POSTOPERATIVE DIAGNOSIS: Chronic hip wound with associated previous infection and heterotopic ossification and excision arthroplasty, left hip. OPERATION PERFORMED: 1. Removal of wound vacuum assisted closure. 2. Incision and drainage of skin, muscle, and bone. 3. Complex delayed primary wound closure.30cm ANESTHESIA: General. ANTIBIOTICS GIVEN: Ancef 2 g, vancomycin 1 g. OPERATION IN DETAIL: The patient was correctly identified, brought into the operating room. Left lower extremity was prepped and draped in the routine manner with Betadine scrub solution, wiped off with alcohol, DuraPrep applied. A free drape applied. Patient was placed in lateral decubitus position, left side up. The wound VAC was taken down. The tissues were inspected. The possibility of a delayed primary closure is certainly going to happen today as I can readily approximate the edges of the wound appropriately. In order to do this, I went ahead with an elliptical incision into the skin margins of the wound. The dimensions of the wound were 7 cm long, about 2 cm wide, and 4-5 cm in different parts with different dimensions of depth. The sessile, pedunculated-type soft tissue growth has occurred in the deep tissues. Heterotopic ossifications were readily palpable within the soft tissues. Some of it was removed today, and all sent to the lab. The wounds were thoroughly lavaged with 5 L of saline and washed off with Betadine scrub. There was no sign of any overt infection. The tissues appeared granulating in a healthy manner. The wounds can be approximated that the deep cavity is virtually completely sealed up at this point. After resection of the skin and subcutaneous tissue in combination with some bone, the tissues were approximated with a complex wound closure as follows. Three very deep sutures utilized in the deep space, muscle 1 Vicryl, fascia 1 Vicryl, subcutaneous tissue 1 Vicryl, skin combination of nylon and richy. The skin edges actually apposed well. The drainage was that of two 1/8-inch Hemovacs placed deep. The wound was sealed appropriately. Plan for continued antibiotic usage. I will remove the drains once drainage is simply dropped down to virtually less than 30-50 mL per 24-hour period, and I am going to discharge her home at that point. From antibiotic usage point of view , I am just providing with some perioperative antibiotics and some simple Augmentin postoperatively. MD OSVALDO Oconnor/[id number] MTDD
[2019-06-03] MEDS ORDERED: INSULIN (NOVOLOG) ASPART 100 UNITS/ML 10ML VIAL ONE (22:07)
[2019-06-03] MEDS: PREGABALIN 100 MG CAPSULE PO SCH (22:12)
[2019-06-03] MEDS: DULoxetine HCL 30 MG CAPSULE.DR PO SCH (22:13)
[2019-06-03] MEDS: OXYBUTYNIN CHLORIDE 5 MG TABLET PO SCH (22:13)
[2019-06-03] MEDS: LACTATED RINGERS SOLUTION 1,000 ML IV SCH (22:13)
[2019-06-03] MEDS: SENNOSIDES/DOCUSATE COMBO (SENNA PLUS) TABLET (UD) PO SCH (22:13)
[2019-06-03] MEDS: diazePAM 5 MG TABLET PO PRN (22:33)
[2019-06-04] MEDS: oxyCODONE HCL 5 MG TABLET PO PRN ×5 (01:37→20:12)
[2019-06-04] MEDS ORDERED: DEXTROSE 5%-WATER 100 ML IVPB ONE (06:02)
[2019-06-04] MEDS ORDERED: ceFAZolin SODIUM 1 GM VIAL ONE (06:02)
[2019-06-04] MEDS: PREGABALIN 100 MG CAPSULE PO SCH ×3 (06:16→22:15)
[2019-06-04] MEDS: OXYBUTYNIN CHLORIDE 5 MG TABLET PO SCH ×3 (06:16→22:15)
[2019-06-04] MEDS: CEFAZOLIN 1 GM in DEXTROSE 5%-WATER 100 ML IVPB SCH (06:17)
[2019-06-04 07:44] LABS: BASO % 0.3 % (0-2.0); EOS % 0.6 % (0-4.5); HEMOGLOBIN 7.8 GM/dL (10.7-15.3); MCH 23.9 pg (25.7-33.7); MCHC 32.5 g/dl (32.0-36.0); MEAN CELL VOLUME 73.5 fl (80-96); NEUT % 85.1 % (42.8-82.8); PLATELET COUNT 465 K/MM3 (134-434); RBC 3.27 M/mm3 (3.60-5.2); RDW 16.3 % (11.6-15.6); WHITE BLOOD COUNT 10.9 K/mm3 (4.0-10.0)
--- NOTE | 2019-06-04 09:37 | PN ---
Progress Note, Physician Chief Complaint: offers no compliants History of Present Illness: Patient is a 63 year old female with a significant past medical history of hypertension, anxiety, depression, chronic pain and chronic left hip left wound , multiple I & D wound washes, s/p osteotomy left femur, removal of hardware ( explant femoral component) admitted by Dr Moya and is now s/p left hip debridement and wound closure. patient reports pain is not controlled, will increase frequency of her pain medications and include a bowel regimen. will repeat her hmg/hct as it is lower than her norm in the setting of recent surgery and hemovac with serosang drainage. she may need a blood transfusion. - Current Medication List Current Medications: Active Medications Acetaminophen (Tylenol -) 650 mg PO Q6H PRN PRN Reason: PAIN OR FEVER Amoxicillin/Clavulanate Potassium (Augmentin - 250mg Tablet) 1 tab PO BIDWM [facility] Last Admin: 06/03/19 22:13 Dose: Not Given Diazepam (Valium -) 5 mg PO HS PRN PRN Reason: ANXIETY Last Admin: 06/03/19 22:33 Dose: 5 mg Duloxetine HCl (Cymbalta -) 30 mg PO BID [facility] Last Admin: 06/03/19 22:13 Dose: 30 mg Fentanyl (Sublimaze Injection -) 50 mcg IVPUSH [id number] PRN PRN Reason: PAIN-PACU ORDER X 4 DOSES ONLY Lactated Ringer's (Lactated Ringers Solution) 1,000 mls @ 125 mls/hr IV ASDIR [facility] Last Admin: 06/03/19 22:13 Dose: 125 mls/hr Lisinopril (Prinivil) 10 mg PO DAILY [facility] Ondansetron HCl (Zofran Injection) 4 mg IVPUSH Q6H PRN PRN Reason: NAUSEA AND/OR VOMITING Oxybutynin Chloride (Ditropan -) 5 mg PO TID [facility] Last Admin: 06/04/19 06:16 Dose: 5 mg Oxycodone HCl (Roxicodone -) 30 mg PO Q6H PRN PRN Reason: PAIN LEVEL 6-10 Last Admin: 06/04/19 08:05 Dose: 30 mg Pantoprazole Sodium (Protonix -) 40 mg PO DAILY [facility] Pregabalin (Lyrica -) 100 mg PO TID [facility] Last Admin: 06/04/19 06:16 Dose: 100 mg Promethazine HCl (Phenergan Injection -) 12.5 mg IVPB Q6H PRN PRN Reason: NAUSEA-FOR RESCUE AFTER 15 MIN Senna/Docusate Sodium (Pericolace -) 2 tablet PO BID [facility] Last Admin: 06/03/19 22:13 Dose: 2 tablet - Objective Vital Signs: Vital Signs Temperature 99.2 F 06/04/19 06:00 Pulse Rate 93 H 06/04/19 06:00 Respiratory Rate 20 06/04/19 06:00 Blood Pressure 139/73 06/04/19 06:00 O2 Sat by Pulse Oximetry (%) 100 06/03/19 21:15 Constitutional: Yes: No Distress, Calm Eyes: Yes: WNL HENT: Yes: Atraumatic Neck: Yes: Supple Cardiovascular: Yes: Regular Rate and Rhythm Respiratory: Yes: Regular Gastrointestinal: Yes: Normal Bowel Sounds, Soft ...Rectal Exam: Yes: Deferred Musculoskeletal: Yes: Muscle Pain, Muscle Weakness Edema: Yes Edema: LUE: 2+ (s/p surgery/closure of chronic wound.) Peripheral Pulses WNL: Yes Integumentary: Yes: Other (left hip pain/left hip wound wnl) Wound/Incision: Yes: Clean/Dry Neurological: Yes: Alert, Oriented ...Motor Strength: WNL Psychiatric: Yes: WNL, Alert, Oriented Labs: CBC, BMP 06/04/19 06:13 INR, PTT INR 1.04 (0.83-1.09) 06/04/19 06:13 Problem List - Problems (1) Anxiety Code(s): F41.9 - ANXIETY DISORDER, UNSPECIFIED (2) Anemia Code(s): D64.9 - ANEMIA, UNSPECIFIED (3) Chronic pain Code(s): G89.29 - OTHER CHRONIC PAIN (4) Depression Code(s): F32.9 - MAJOR DEPRESSIVE DISORDER, SINGLE EPISODE, UNSPECIFIED (5) HTN (hypertension) Code(s): I10 - ESSENTIAL (PRIMARY) HYPERTENSION (6) Infection of lower extremity associated with hardware Code(s): T84.7XXA - INFECT/INFLM REACT DUE TO OTH INT ORTH PROSTH DEV/GRFT, INIT (7) Wound, open, hip or thigh Code(s): AUH4993 - Impression/Plan Impression/Plan: Surgery: patient is s/p washout and left hip wound closure. care per surgery team. hypertension: controlled on lisinopril 10mg daily Depression, chronic. Continue Cymbalta and Valium as needed. Anemia. monitor labs. repeat CBC is more stable. no need for iron therapy per hematology (on previous admission). Urinary incontinence: Continue oxybutynin. no retention of urine. Falls: history of multiple falls. maintain fall precautions. Opioid dependence: continue oxy 30 q4. with close monitoring of mental status. Dispo: discharge home once cleared by surgery. full code Visit type - Emergency Visit Emergency Visit: Yes ED Registration Date: 06/03/19 Care time: The patient presented to the Emergency Department on the above date and was hospitalized for further evaluation of their emergent condition. - New Patient This patient is new to me today: No - Critical Care Critical Care patient: No - Discharge Referral Referred to [facility] Med P.C.: No
[2019-06-04] MEDS ORDERED: PATIENT'S OWN MEDICATION (NON-FORMULARY) (Omeprazole [Omeprazole] 40 MG) PO SCH (10:00)
[2019-06-04] MEDS: PANTOPRAZOLE 40 MG TABLET (FP) PO SCH (10:19)
[2019-06-04] MEDS: DULoxetine HCL 30 MG CAPSULE.DR PO SCH ×2 (10:19→22:16)
[2019-06-04] MEDS: LISINOPRIL 10 MG TABLET (FP) PO SCH (10:19)
[2019-06-04] MEDS: SENNOSIDES/DOCUSATE COMBO (SENNA PLUS) TABLET (UD) PO SCH ×2 (10:20→22:16)
--- NOTE | 2019-06-04 11:25 | CON.ID ---
Consult Consult Specialty:: infectious diseases Referred by:: Lisa Reason for Consultation:: left hip infection - History of Present Illness Chief Complaint: left hip pain History of Present Illness: 63 year old female with history of chronic left hip pain, hypertension, anxiety , depression, with a very complicated history treated multiple times for multiple problems including sepsis and the hip wound which is chronic Left hip wound irrigation, debridement and application of woundvac with closure of the wound her current complaint is hip pain - History Source History Provided By: Patient Limitations to Obtaining History: No Limitations - Past Medical History Cardio/Vascular: Yes: HTN ...: No Psych: Yes: Depression - Past Surgical History Past Surgical History: Yes: Joint Replacement (THR, multiple wash outs, I&D) - Alcohol/Substance Use Hx Alcohol Use: No - Smoking History Smoking history: Current every day smoker Have you smoked in the past 12 months: Yes Aproximately how many cigarettes per day: 5 Home Medications - Allergies Allergies/Adverse Reactions: Allergies Allergy/AdvReac Type Severity Reaction Status Date / Time etomidate Allergy Severe Rash Verified 06/03/19 11:29 latex Allergy Severe Rash Verified 06/03/19 11:29 morphine Allergy Severe Rash Verified 06/03/19 11:29 tomato Allergy Verified 06/03/19 11:29 - Home Medications Home Medications: Ambulatory Orders Diazepam [Valium] 5 mg PO HS PRN 08/24/18 Omeprazole 40 mg PO DAILY 08/24/18 Oxybutynin Chloride 5 mg PO TID 08/24/18 Duloxetine HCl [Cymbalta] 30 mg PO BID 15 Days #30 capsule. 03/19/19 Lisinopril [Prinivil] 10 mg PO DAILY 30 Days #30 tablet 03/19/19 Pregabalin [Lyrica] 100 mg PO TID #30 capsule MDD 3 03/19/19 Oxycodone HCl 30 mg PO Q4H PRN 3 Days #10 tablet MDD 6 04/09/19 Pantoprazole Sodium [Protonix -] 40 mg PO DAILY tablet.ec 05/01/19 Sennosides/Docusate Sodium [Pericolace -] 2 tablet PO BID tablet 05/01/19 Amox-Tr/K Cl [Augmentin 250-125mg Tablet -] 1 tab PO BID 06/03/19 Review of Systems - Review of Systems Constitutional: reports: No Symptoms Eyes: reports: No Symptoms HENT: reports: No Symptoms Neck: reports: No Symptoms Cardiovascular: reports: No Symptoms Respiratory: reports: No Symptoms Genitourinary: reports: No Symptoms Musculoskeletal: reports: No Symptoms Integumentary: reports: No Symptoms Neurological: reports: No Symptoms Endocrine: reports: No Symptoms Hematology/Lymphatic: reports: No Symptoms Psychiatric: reports: No Symptoms Physical Exam Vital Signs: Vital Signs Temperature 98.6 F 06/04/19 09:00 Pulse Rate 94 H 06/04/19 09:00 Respiratory Rate 18 06/04/19 09:00 Blood Pressure 130/76 06/04/19 09:00 O2 Sat by Pulse Oximetry (%) 100 06/03/19 21:15 Constitutional: Yes: Well Nourished, Calm, Mild Distress Cardiovascular: Yes: Regular Rate and Rhythm Respiratory: Yes: Regular, CTA Bilaterally Musculoskeletal: Yes: WNL Extremities: Yes: Other Wound/Incision: Yes: Dressing Dry and Intact, Other (wound vac in place) Neurological: Yes: Alert, Oriented Psychiatric: Yes: Alert, Oriented Labs: CBC, BMP 06/04/19 06:13 Assessment/Plan patient post op from debridement of the hip joint and wound sututre with wound vac in place all cx reports noted will not start her on any abx close watch await for finalization of cx rest as per the team
[2019-06-04 12:36] LABS: BASO % 0.3 % (0-2.0); EOS % 1.7 % (0-4.5); HEMATOCRIT 26.2 % (32.4-45.2); HEMOGLOBIN 8.4 GM/dL (10.7-15.3); LYMPH % 14.5 % (8-40); MCH 23.7 pg (25.7-33.7); MONO % 5.3 % (3.8-10.2); NEUT % 78.2 % (42.8-82.8); PLATELET COUNT 549 K/MM3 (134-434); RBC 3.54 M/mm3 (3.60-5.2); RDW 16.5 % (11.6-15.6)
[2019-06-04 13:04] LABS: BILIRUBIN,TOTAL 0.3 mg/dL (0.2-1); BLOOD UREA NITROGEN 17.6 mg/dL (7-18); CALCIUM 8.6 mg/dL (8.5-10.1); CREATININE 0.9 mg/dL (0.55-1.3); POTASSIUM 4.1 mmol/L (3.5-5.1); TOT PROT 7.3 g/dl (6.4-8.2)
[2019-06-04] MEDS: LACTATED RINGERS SOLUTION 1,000 ML IV SCH (13:22)
[2019-06-04 14:06] LABS: PROTHROMBIN TIME (PATIENT) 12.3 SEC (9.7-13.0)
[2019-06-04 14:07] LABS: INR 1.04 (0.83-1.09)
[2019-06-04] MEDS: diazePAM 5 MG TABLET PO PRN (22:16)
[2019-06-05] MEDS: oxyCODONE HCL 5 MG TABLET PO PRN ×5 (01:15→20:17)
[2019-06-05] MEDS: PREGABALIN 100 MG CAPSULE PO SCH ×3 (06:31→21:38)
[2019-06-05] MEDS: OXYBUTYNIN CHLORIDE 5 MG TABLET PO SCH ×3 (06:32→21:38)
[2019-06-05 08:15] LABS: BASO % 0.7 % (0-2.0); EOS % 7.1 % (0-4.5); HEMATOCRIT 25.4 % (32.4-45.2); HEMOGLOBIN 8.2 GM/dL (10.7-15.3); LYMPH % 17.9 % (8-40); MCHC 32.3 g/dl (32.0-36.0); MEAN CELL VOLUME 74.3 fl (80-96); MEAN PLT VOLUME 6.9 fl (7.5-11.1); MONO % 7.8 % (3.8-10.2); NEUT % 66.5 % (42.8-82.8); PLATELET COUNT 480 K/MM3 (134-434); RBC 3.42 M/mm3 (3.60-5.2); RDW 16.6 % (11.6-15.6); WHITE BLOOD COUNT 9.6 K/mm3 (4.0-10.0)
[2019-06-05 08:34] LABS: ALBUMIN 2.8 g/dl (3.4-5.0); BILIRUBIN,TOTAL 0.2 mg/dL (0.2-1); BLOOD UREA NITROGEN 16.1 mg/dL (7-18); CALCIUM 8.8 mg/dL (8.5-10.1); CREATININE 0.9 mg/dL (0.55-1.3); MAGNESIUM 2.1 mg/dL (1.8-2.4); POTASSIUM 3.9 mmol/L (3.5-5.1); TOT PROT 6.7 g/dl (6.4-8.2)
--- NOTE | 2019-06-05 09:26 | PN ---
Progress Note (short form) - Note Progress Note: 64yo F s/p multiple washout and wound closure for Left infected hip. Pt seen and examined at bedside. Pt continues to complain of her chronic Lt hip pain, but no knew complaints. Pt denies fever, chills, n/v. Vital Signs Temp 99.8 F H 06/05/19 06:57 Pulse 78 06/05/19 06:57 Resp 20 06/05/19 06:57 BP 136/78 06/05/19 06:57 Pulse Ox 100 06/04/19 21:00 Intake & Output 06/04/19 06/04/19 06/05/19 11:59 23:59 11:59 Intake Total 875 400 0 Output Total 30 40 Balance 875 370 -40 Weight 158 lb 12.8 oz 158 lb 2 oz Intake: IV 625 0 Lactated Ringers Solution 625 0 1,000 ml @ 125 mls/hr IV ASDIR [facility] Rx#: [id number] IVPB 50 0 Oral 200 400 Output: Drainage 30 40 Left Hip 30 40 Other: Voiding Method Toilet Toilet # Unmeasured Voids Void 1 1 Bowel Movement No Yes Weight Measurement Method Built in Bedscale Built in Bedscale CBC, BMP 06/05/19 06:47 06/05/19 06:47 PE: Gen: a&o x3 Resp: breathing comfortably Lt hip: shows dressing in place clean, drain present with serosanguinous drainage. Problem List - Problems (1) Infection of lower extremity associated with hardware Assessment/Plan: Plan -possible drain remove later today will discuss with Dr. Moya -pain control -abx Code(s): T84.7XXA - INFECT/INFLM REACT DUE TO OTH INT ORTH PROSTH DEV/GRFT, INIT
[2019-06-05] MEDS ORDERED: PT OWN MED DRAWER 7, Y5N ONE (10:21)
[2019-06-05] MEDS: DULoxetine HCL 30 MG CAPSULE.DR PO SCH ×2 (10:32→21:38)
[2019-06-05] MEDS: LISINOPRIL 10 MG TABLET (FP) PO SCH (10:33)
[2019-06-05] MEDS: PANTOPRAZOLE 40 MG TABLET (FP) PO SCH (10:33)
[2019-06-05] MEDS: SENNOSIDES/DOCUSATE COMBO (SENNA PLUS) TABLET (UD) PO SCH ×2 (10:33→21:39)
--- NOTE | 2019-06-05 11:03 | PN ---
Progress Note, Physician History of Present Illness: feeling very dizzy room spinning - Current Medication List Current Medications: Active Medications Acetaminophen (Tylenol -) 650 mg PO Q6H PRN PRN Reason: PAIN OR FEVER Amoxicillin/Clavulanate Potassium (Augmentin - 250mg Tablet) 1 tab PO BIDWM [facility] Last Admin: 06/03/19 22:13 Dose: Not Given Diazepam (Valium -) 5 mg PO HS PRN PRN Reason: ANXIETY Last Admin: 06/04/19 22:16 Dose: 5 mg Duloxetine HCl (Cymbalta -) 30 mg PO BID [facility] Last Admin: 06/05/19 10:32 Dose: 30 mg Fentanyl (Sublimaze Injection -) 50 mcg IVPUSH [id number] PRN PRN Reason: PAIN-PACU ORDER X 4 DOSES ONLY Lactated Ringer's (Lactated Ringers Solution) 1,000 mls @ 125 mls/hr IV ASDIR [facility] Last Admin: 06/04/19 13:22 Dose: Not Given Lisinopril (Prinivil) 10 mg PO DAILY [facility] Last Admin: 06/05/19 10:33 Dose: 10 mg Ondansetron HCl (Zofran Injection) 4 mg IVPUSH Q6H PRN PRN Reason: NAUSEA AND/OR VOMITING Oxybutynin Chloride (Ditropan -) 5 mg PO TID [facility] Last Admin: 06/05/19 06:32 Dose: 5 mg Oxycodone HCl (Roxicodone -) 30 mg PO Q4H PRN PRN Reason: PAIN LEVEL 6-10 Last Admin: 06/05/19 10:31 Dose: 30 mg Pantoprazole Sodium (Protonix -) 40 mg PO DAILY [facility] Last Admin: 06/05/19 10:33 Dose: 40 mg Pregabalin (Lyrica -) 100 mg PO TID [facility] Last Admin: 06/05/19 06:31 Dose: 100 mg Promethazine HCl (Phenergan Injection -) 12.5 mg IVPB Q6H PRN PRN Reason: NAUSEA-FOR RESCUE AFTER 15 MIN Senna/Docusate Sodium (Pericolace -) 2 tablet PO BID [facility] Last Admin: 06/05/19 10:33 Dose: 2 tablet - Objective Vital Signs: Vital Signs Temperature 99.8 F H 06/05/19 06:57 Pulse Rate 78 06/05/19 06:57 Respiratory Rate 20 06/05/19 06:57 Blood Pressure 136/78 06/05/19 06:57 O2 Sat by Pulse Oximetry (%) 100 06/04/19 21:00 Constitutional: Yes: No Distress, Calm Respiratory: Yes: Regular, CTA Bilaterally Gastrointestinal: Yes: Normal Bowel Sounds, Soft Musculoskeletal: Yes: WNL Extremities: Yes: Other Wound/Incision: Yes: Dressing Dry and Intact, Other (wound vac present) Labs: CBC, BMP 06/05/19 06:47 06/05/19 06:47 INR, PTT INR 1.04 (0.83-1.09) 06/04/19 06:13 Assessment/Plan patient post op from debridement of the hip joint and wound sututre with wound vac in place Problem List - Problems (1) Anxiety Code(s): F41.9 - ANXIETY DISORDER, UNSPECIFIED (2) Anemia Code(s): D64.9 - ANEMIA, UNSPECIFIED (3) Chronic pain Code(s): G89.29 - OTHER CHRONIC PAIN (4) Depression Code(s): F32.9 - MAJOR DEPRESSIVE DISORDER, SINGLE EPISODE, UNSPECIFIED (5) HTN (hypertension) Code(s): I10 - ESSENTIAL (PRIMARY) HYPERTENSION (6) Infection of lower extremity associated with hardware Code(s): T84.7XXA - INFECT/INFLM REACT DUE TO OTH INT ORTH PROSTH DEV/GRFT, INIT (7) Wound, open, hip or thigh Code(s): [id number] - plan continue current mgmt wound care rest as per the team
--- NOTE | 2019-06-05 11:38 | OP ---
Operative Note - Note: Operative Date: 06/03/19 Pre-Operative Diagnosis: chronic Left hip wound with associated infection and heterotopic ossification and excision arthroplasty. Operation: Left Hip removal of vaccum assisted closure. Incision and drainage of skin, muscle and bone. complex delayed primary closure of wound Post-Operative Diagnosis: Same as Pre-op Surgeon: Albert Moya Metal Burnisher: Crystal Mitchell Anesthesiologist/GRINDER OPERATOR AUTOMATIC: Kunal Luna Anesthesia: General Specimens Removed: left hip skin, muscle and bone Operative Report Dictated: Yes
--- NOTE | 2019-06-05 11:50 | SURG ---
Surgery Office Machine Service Supervisor Note Office Machine Service Supervisor: Crystal Mitchell PA-C Date of Service: 06/03/19 Diagnosis: chronic Left hip wound with associated infection and heterotopic ossification and excision arthroplasty. Procedure: Left Hip removal of vaccum assisted closure. Incision and drainage of skin, muscle and bone. complex delayed primary closure of wound I was present for the entirety of the operative procedure. For further detail, please refer to operative report. Visit type - Case Type Case Type: Scheduled - Emergency Emergency Visit: No - New patient This patient is new to me today: Yes Date on this admission: 06/05/19
--- NOTE | 2019-06-05 12:30 | PN ---
Progress Note, Physician Chief Complaint: offers no compliants History of Present Illness: Patient is a 63 year old female with a significant past medical history of hypertension, anxiety, depression, chronic pain and chronic left hip left wound , multiple I & D wound washes, s/p osteotomy left femur, removal of hardware ( explant femoral component) admitted by Dr Moya and is now s/p left hip debridement and wound closure. hmg/hct more stable. c/o of headache. - Current Medication List Current Medications: Active Medications Acetaminophen (Tylenol -) 650 mg PO Q6H PRN PRN Reason: PAIN OR FEVER Amoxicillin/Clavulanate Potassium (Augmentin - 250mg Tablet) 1 tab PO BIDWM [facility] Last Admin: 06/03/19 22:13 Dose: Not Given Diazepam (Valium -) 5 mg PO HS PRN PRN Reason: ANXIETY Last Admin: 06/04/19 22:16 Dose: 5 mg Duloxetine HCl (Cymbalta -) 30 mg PO BID [facility] Last Admin: 06/05/19 10:32 Dose: 30 mg Fentanyl (Sublimaze Injection -) 50 mcg IVPUSH [id number] PRN PRN Reason: PAIN-PACU ORDER X 4 DOSES ONLY Lactated Ringer's (Lactated Ringers Solution) 1,000 mls @ 125 mls/hr IV ASDIR [facility] Last Admin: 06/04/19 13:22 Dose: Not Given Lisinopril (Prinivil) 10 mg PO DAILY [facility] Last Admin: 06/05/19 10:33 Dose: 10 mg Ondansetron HCl (Zofran Injection) 4 mg IVPUSH Q6H PRN PRN Reason: NAUSEA AND/OR VOMITING Oxybutynin Chloride (Ditropan -) 5 mg PO TID [facility] Last Admin: 06/05/19 06:32 Dose: 5 mg Oxycodone HCl (Roxicodone -) 30 mg PO Q4H PRN PRN Reason: PAIN LEVEL 6-10 Last Admin: 06/05/19 10:31 Dose: 30 mg Pantoprazole Sodium (Protonix -) 40 mg PO DAILY [facility] Last Admin: 06/05/19 10:33 Dose: 40 mg Pregabalin (Lyrica -) 100 mg PO TID [facility] Last Admin: 06/05/19 06:31 Dose: 100 mg Promethazine HCl (Phenergan Injection -) 12.5 mg IVPB Q6H PRN PRN Reason: NAUSEA-FOR RESCUE AFTER 15 MIN Senna/Docusate Sodium (Pericolace -) 2 tablet PO BID [facility] Last Admin: 06/05/19 10:33 Dose: 2 tablet - Objective Vital Signs: Vital Signs Temperature 99.8 F H 06/05/19 06:57 Pulse Rate 78 06/05/19 06:57 Respiratory Rate 20 06/05/19 06:57 Blood Pressure 136/78 06/05/19 06:57 O2 Sat by Pulse Oximetry (%) 100 06/04/19 21:00 Constitutional: Yes: Well Nourished, No Distress Eyes: Yes: WNL HENT: Yes: Atraumatic Neck: Yes: Supple Cardiovascular: Yes: Regular Rate and Rhythm Respiratory: Yes: Regular Gastrointestinal: Yes: Normal Bowel Sounds, Soft Genitourinary: Yes: WNL Extremities: Yes: Other (left hip surgery/wound closure) Edema: No Integumentary: Yes: Other (left hip wound, sero sang drainage.) Labs: CBC, BMP 06/05/19 06:47 06/05/19 06:47 INR, PTT INR 1.04 (0.83-1.09) 06/04/19 06:13 Problem List - Problems (1) Anxiety Code(s): F41.9 - ANXIETY DISORDER, UNSPECIFIED (2) Anemia Code(s): D64.9 - ANEMIA, UNSPECIFIED (3) Chronic pain Code(s): G89.29 - OTHER CHRONIC PAIN (4) Depression Code(s): F32.9 - MAJOR DEPRESSIVE DISORDER, SINGLE EPISODE, UNSPECIFIED (5) HTN (hypertension) Code(s): I10 - ESSENTIAL (PRIMARY) HYPERTENSION (6) Infection of lower extremity associated with hardware Code(s): T84.7XXA - INFECT/INFLM REACT DUE TO OTH INT ORTH PROSTH DEV/GRFT, INIT (7) Wound, open, hip or thigh Code(s): [id number] - Impression/Plan Impression/Plan: Surgery: patient is s/p washout and left hip wound closure on 06/03/2019. care per surgery team. left hip dressing stained, intact. some serosang drainage. surgical dressing intact. to be changed by surgery. hypertension: controlled on lisinopril 10mg daily. monitor bp Depression, chronic. Continue Cymbalta and Valium as needed. Anemia. monitor labs. repeat CBC is more stable. no need for iron therapy per hematology (on previous admission). Urinary incontinence: Continue oxybutynin. no retention of urine. Falls: history of multiple falls. maintain fall precautions. mostly wc bound. Opioid dependence: continue oxy 30 q4. with close monitoring of mental status. Dispo: discharge home once cleared by surgery. full code Visit type - Emergency Visit Emergency Visit: Yes ED Registration Date: 06/03/19 Care time: The patient presented to the Emergency Department on the above date and was hospitalized for further evaluation of their emergent condition. - New Patient This patient is new to me today: No - Critical Care Critical Care patient: No - Discharge Referral Referred to [facility] Med P.C.: No
[2019-06-05] MEDS ORDERED: ACETAMINOPHEN/CAFFEINE/BUTALBITAL 1 TAB PO ONE (12:45)
[2019-06-05] MEDS: LACTATED RINGERS SOLUTION 1,000 ML IV SCH (12:47)
--- NOTE | 2019-06-05 15:35 | PN ---
Progress Note (short form) - Note Progress Note: POD#2 Awake fully orientated Apyrexial Hematology and Chemistry as per chart. Wound dry clean Drains removed. ASSESS wound clean and dry Limb is shortened due to extensive proximal resection of femur Leaves the pt with a modified excision arthroplasty PLAN D/C home Oral antibiotic Augmentin See in 1 week in the office Pain mx Mobilize in the wheelchair
--- NOTE | 2019-06-05 17:34 | DS ---
Physical Exam: SUBJECTIVE: Patient seen and examined OBJECTIVE: Patient is a 63 year old female with a significant past medical history of hypertension, anxiety, depression, chronic pain and chronic left hip left wound , multiple I & D wound washes, s/p osteotomy left femur, removal of hardware ( explant femoral component) admitted by Dr Moya and is now s/p left hip debridement and wound closure. hmg/hct more stable. c/o of headache. Vital Signs Period Temp Pulse Resp BP Sys/Vargas Pulse Ox Last 24 Hr 98.3 F-99.8 F 78-91 18-20 110-136/78-81 99-100 PHYSICAL EXAM GENERAL: The patient is awake, alert, and fully oriented, in no acute distress. HEAD: Normal with no signs of trauma. EYES: PERRL, extraocular movements intact, sclera anicteric, conjunctiva clear. ENT: Ears normal, nares patent, oropharynx clear without exudates, moist mucous membranes. NECK: Trachea midline, full range of motion, supple. LUNGS: Breath sounds equal, clear to auscultation bilaterally, no wheezes, no crackles, no accessory muscle use. HEART: Regular rate and rhythm ABDOMEN: Soft, nontender, nondistended, normoactive bowel sounds, no guarding, no rebound, no hepatosplenomegaly, no masses. EXTREMITIES: no edema. NEUROLOGICAL: Normal speech, WC bound PSYCH: Normal mood, normal affect. SKIN: left hip wound, chronic s/p washout and surgical closure. LABS Laboratory Results - last 24 hr 06/04/19 06/05/19 06/05/19 11:50 06:47 06:47 WBC 9.6 RBC 3.42 L Hgb 8.2 L Hct 25.4 L MCV 74.3 L MCH 24.0 L MCHC 32.3 RDW 16.6 H Plt Count 480 H MPV 6.9 L Absolute Neuts (auto) 6.4 Neutrophils % 66.5 Lymphocytes % 17.9 D Monocytes % 7.8 Eosinophils % 7.1 H D Basophils % 0.7 Nucleated RBC % 0 Sodium 137 139 Potassium 4.1 3.9 Chloride 105 106 Carbon Dioxide 24 27 Anion Gap 8 6 L BUN 17.6 16.1 Creatinine 0.9 0.9 Est GFR (CKD-EPI)AfAm 78.32 78.32 Est GFR (CKD-EPI)NonAf 67.57 67.57 Random Glucose 81 86 Calcium 8.6 8.8 Magnesium 2.1 Iron 50 TIBC 237 L Iron Saturation 21 Unsaturated IBC 187 L Ferritin 512.6 H Total Bilirubin 0.3 0.2 AST 10 L 8 L ALT 10 L 8 L Alkaline Phosphatase 93 96 Total Protein 7.3 6.7 Albumin 3.0 L 2.8 L HOSPITAL COURSE: Date of Admission:06/03/19 Date of Discharge: 06/06/19 Patient is a 63 year old female with a significant past medical history of hypertension, anxiety, depression, chronic pain and chronic left hip left wound , multiple I & D wound washes, s/p osteotomy left femur, removal of hardware ( explant femoral component) admitted by Dr Moya and is now s/p left hip debridement and wound closure. Surgery: patient is s/p washout and left hip wound closure on 06/03/2019. care per surgery team. left hip dressing stained, intact. some serosang drainage. surgical dressing intact. changed by surgery, hemovac removed. hypertension: controlled on lisinopril 10mg daily. monitor bp Depression, chronic. Continue Cymbalta and Valium as needed. Anemia. monitor labs. repeat CBC is more stable. no need for iron therapy per hematology (on previous admission). Urinary incontinence: Continue oxybutynin. no retention of urine. Falls: history of multiple falls. maintain fall precautions. mostly wc bound. Opioid dependence: continue oxy 30 q4-6. with close monitoring of mental status. Dispo: discharge home on 06/05/19. full code Minutes to complete discharge: 60 Discharge Summary Reason For Visit: [facility] LOOSENING OF INTERNAL LEFT HIP Current Active Problems Anxiety (Acute) Condition: Improved - Instructions Diet, Activity, Other Instructions: Post Operative Instructions Physical Activity Resume your normal everyday activity as tolerated. No heavy lifting or exercise until seen by your surgeon. You may resume driving the car when you feel safe and comfortable behind the wheel and you are no longer wearing your brace. Do not operate a vehicle while taking narcotic medication. Wound Care Keep your incision clean, dry and covered at all times. Avoid getting your incision wet. Do not submerge incision or apply ointments or creams. The richy will be removed in the office in 10-14 days post-op. Diet There are no dietary restrictions. Eat healthy, high-fiber foods. Drink 6-8 glasses of liquid each day. This will assist in keeping your bowels regular. Pain Management You may take Tylenol or acetaminophen. Any pain prescription medication ordered should be taken as prescribed for moderate to severe pain. Avoid any ibuprofen (Motrin, Advil, Aleve, Toradol, etc) for 3 months unless otherwise discussed with your surgeon. Call Dr Wolfe for any of the following: Severe pain not relieved by medication Fever of 101 or higher Excessive bleeding or drainage on dressing Inability to urinate Any chest pain or shortness of breath, seek Emergency Care. Call Dr Moya's office to confirm a post-operative appointment. Disposition: HOME - Home Medications Comprehensive Discharge Medication List: Ambulatory Orders Diazepam [Valium] 5 mg PO HS PRN 08/24/18 Omeprazole 40 mg PO DAILY 08/24/18 Oxybutynin Chloride 5 mg PO TID 08/24/18 Duloxetine HCl [Cymbalta] 30 mg PO BID 15 Days #30 capsule. 03/19/19 Lisinopril [Prinivil] 10 mg PO DAILY 30 Days #30 tablet 03/19/19 Pregabalin [Lyrica] 100 mg PO TID #30 capsule MDD 3 03/19/19 Oxycodone HCl 30 mg PO Q4H PRN 3 Days #10 tablet MDD 6 04/09/19 Pantoprazole Sodium [Protonix -] 40 mg PO DAILY tablet.ec 05/01/19 Sennosides/Docusate Sodium [Pericolace -] 2 tablet PO BID tablet 05/01/19 Amox-Tr/K Cl [Augmentin 250-125mg Tablet -] 1 tab PO BID 06/03/19 Problem List - Problems (1) Anxiety Code(s): F41.9 - ANXIETY DISORDER, UNSPECIFIED (2) Anemia Code(s): D64.9 - ANEMIA, UNSPECIFIED (3) Chronic pain Code(s): G89.29 - OTHER CHRONIC PAIN (4) Depression Code(s): F32.9 - MAJOR DEPRESSIVE DISORDER, SINGLE EPISODE, UNSPECIFIED (5) HTN (hypertension) Code(s): I10 - ESSENTIAL (PRIMARY) HYPERTENSION (6) Infection of lower extremity associated with hardware Code(s): T84.7XXA - INFECT/INFLM REACT DUE TO OTH INT ORTH PROSTH DEV/GRFT, INIT (7) Wound, open, hip or thigh Code(s): [id number] - This patient is new to me today: No Emergency Visit: Yes ED Registration Date: 06/03/19 Care time: The patient presented to the Emergency Department on the above date and was hospitalized for further evaluation of their emergent condition. Critical Care patient: No - Discharge Referral Referred to [facility] No
--- NOTE | 2019-06-05 18:13 | PATH ---
Surgical Pathology Report Patient Name: CONNOR SON Med. Rec. #: [id number] /Age/Gender: 1955 (Age: 64) / F Account: [id number] Location: [facility]/SURG Taken: 06/03/2019 Received: 06/04/2019 Reported: 06/05/2019 Physicians: Albert Moya M.D. Specimen(s) Received A: POSTERIOR TISSUE LEFT HIP WOUND B: POSTERIOR TISSUE LEFT HIP WOUND Clinical History Mechanical loosening of internal left hip, incision and drainage Final Diagnosis A. HIP WOUND, LEFT, POSTERIOR TISSUE, EXCISION: ULCERATED FIBROUS TISSUE WITH ACUTE INFLAMMATION AND GRANULATION TISSUE FORMATION. B. HIP WOUND, LEFT, POSTERIOR TISSUE, EXCISION: PARTIALLY ULCERATED SKIN AND UNDERLYING FIBROUS AND SUBCUTANEOUS TISSUE WITH ACUTE INFLAMMATION, ULCERATION, AND GRANULATION TISSUE FORMATION. Electronically Signed Martha Zelaya M.D. Gross Description A. Received in formalin labeled "posterior tissue left hip wound" is an irregular piece of pink-quarles to light quarles soft tissue measuring 9.5 x 5 x 2 cm. The surface is quarles and nodular. Cut section is homogenous and fibrous. Lab Systems Analyst sections are submitted in one cassette. B. Received in formalin labeled "posterior tissue left hip wound" is an annular portion of partially ulcerated skin and underlying subcutaneous tissue measuring 9 x 6 x 2.5 cm. Lab Systems Analyst sections are submitted in one cassette. MLSZ/06/04/2019 ion/06/04/2019
[2019-06-06] MEDS: oxyCODONE HCL 5 MG TABLET PO PRN ×3 (04:50→14:48)
[2019-06-06] MEDS: PREGABALIN 100 MG CAPSULE PO SCH ×2 (06:12→14:49)
[2019-06-06] MEDS: OXYBUTYNIN CHLORIDE 5 MG TABLET PO SCH ×2 (06:12→14:49)
[2019-06-06] MEDS: PANTOPRAZOLE 40 MG TABLET (FP) PO SCH (09:48)
[2019-06-06] MEDS: DULoxetine HCL 30 MG CAPSULE.DR PO SCH (09:48)
[2019-06-06] MEDS: LISINOPRIL 10 MG TABLET (FP) PO SCH (09:48)
[2019-06-06] MEDS: AMOX TR/POT CLAV 250MG/125MG TABLETS PO SCH (09:49)
[2019-06-06] MEDS: SENNOSIDES/DOCUSATE COMBO (SENNA PLUS) TABLET (UD) PO SCH (09:49)
--- NOTE | 2019-06-06 10:16 | PN ---
Progress Note, Physician History of Present Illness: stable no new issues - Current Medication List Current Medications: Active Medications Acetaminophen (Tylenol -) 650 mg PO Q6H PRN PRN Reason: PAIN OR FEVER Amoxicillin/Clavulanate Potassium (Augmentin - 250mg Tablet) 1 tab PO BIDWM [facility] Last Admin: 06/06/19 09:49 Dose: 1 tab Diazepam (Valium -) 5 mg PO HS PRN PRN Reason: ANXIETY Last Admin: 06/04/19 22:16 Dose: 5 mg Duloxetine HCl (Cymbalta -) 30 mg PO BID [facility] Last Admin: 06/06/19 09:48 Dose: 30 mg Fentanyl (Sublimaze Injection -) 50 mcg IVPUSH [id number] PRN PRN Reason: PAIN-PACU ORDER X 4 DOSES ONLY Lactated Ringer's (Lactated Ringers Solution) 1,000 mls @ 125 mls/hr IV ASDIR [facility] Last Admin: 06/05/19 12:47 Dose: Not Given Lisinopril (Prinivil) 10 mg PO DAILY [facility] Last Admin: 06/06/19 09:48 Dose: 10 mg Ondansetron HCl (Zofran Injection) 4 mg IVPUSH Q6H PRN PRN Reason: NAUSEA AND/OR VOMITING Oxybutynin Chloride (Ditropan -) 5 mg PO TID [facility] Last Admin: 06/06/19 06:12 Dose: 5 mg Oxycodone HCl (Roxicodone -) 30 mg PO Q4H PRN PRN Reason: PAIN LEVEL 6-10 Last Admin: 06/06/19 09:49 Dose: 30 mg Pantoprazole Sodium (Protonix -) 40 mg PO DAILY [facility] Last Admin: 06/06/19 09:48 Dose: 40 mg Pregabalin (Lyrica -) 100 mg PO TID [facility] Last Admin: 06/06/19 06:12 Dose: 100 mg Promethazine HCl (Phenergan Injection -) 12.5 mg IVPB Q6H PRN PRN Reason: NAUSEA-FOR RESCUE AFTER 15 MIN Senna/Docusate Sodium (Pericolace -) 2 tablet PO BID [facility] Last Admin: 06/06/19 09:49 Dose: 2 tablet - Objective Vital Signs: Vital Signs Temperature 98.4 F 06/06/19 07:06 Pulse Rate 82 06/06/19 07:06 Respiratory Rate 20 06/06/19 07:06 Blood Pressure 150/98 06/06/19 07:06 O2 Sat by Pulse Oximetry (%) 99 06/05/19 21:00 Constitutional: Yes: No Distress, Calm Respiratory: Yes: Regular, CTA Bilaterally Gastrointestinal: Yes: Normal Bowel Sounds, Soft Musculoskeletal: Yes: WNL Extremities: Yes: Other Wound/Incision: Yes: Dressing Dry and Intact, Other Neurological: Yes: Alert, Oriented Psychiatric: Yes: Alert, Oriented Labs: CBC, BMP 06/05/19 06:47 06/05/19 06:47 INR, PTT INR 1.04 (0.83-1.09) 06/04/19 06:13 Assessment/Plan patient post op from debridement of the hip joint and wound sututre with wound vac in place Problem List - Problems (1) Anxiety Code(s): F41.9 - ANXIETY DISORDER, UNSPECIFIED (2) Anemia Code(s): D64.9 - ANEMIA, UNSPECIFIED (3) Chronic pain Code(s): G89.29 - OTHER CHRONIC PAIN (4) Depression Code(s): F32.9 - MAJOR DEPRESSIVE DISORDER, SINGLE EPISODE, UNSPECIFIED (5) HTN (hypertension) Code(s): I10 - ESSENTIAL (PRIMARY) HYPERTENSION (6) Infection of lower extremity associated with hardware Code(s): T84.7XXA - INFECT/INFLM REACT DUE TO OTH INT ORTH PROSTH DEV/GRFT, INIT (7) Wound, open, hip or thigh Code(s): [id number] - plan continue current mgmt wound care rest as per the team
[2019-06-06 14:48] VITALS: BP 134/88; PULSE 87; TEMP 98.7
[2019-06-06] MEDS: LACTATED RINGERS SOLUTION 1,000 ML IV SCH (14:49)
== END 2019-06-06 15:35 | disposition home or self-care (01) | DRG 902 ==
LOC: JASU-SURG 10:38 → SUATTDRO 10:38 → JERBED 16:22 → JSAMEDAYSX 17:18 → J8W 21:44
PROVIDERS: ADMIT Internal Medicine; ATTEND Nurse Practitioner Family
PROC: 0J9M0ZX Drainage of Left Upper Leg Subcutaneous Tissue and Fascia, Open Approach, Diagnostic (ICD-10-PCS; 2019-06-03)
PROC: 0JBM0ZZ Excision of Left Upper Leg Subcutaneous Tissue and Fascia, Open Approach (ICD-10-PCS; principal; 2019-06-03 11:30)
DX: T81.89XA Other complications of procedures, not elsewhere classified, initial encounter (principal); F11.20 Opioid dependence, uncomplicated; F41.8 Other specified anxiety disorders; M25.552 Pain in left hip; G89.29 Other chronic pain; F17.210 Nicotine dependence, cigarettes, uncomplicated; I10 Essential (primary) hypertension; D64.9 Anemia, unspecified; Z96.642 Presence of left artificial hip joint; R32 Unspecified urinary incontinence
CPT/HCPCS: 36415; 80053; 82728; 83540; 83550; 83735; 85025; 85027; 85610; 87070; 87205; 88304-TC; 94760

== ENCOUNTER 2019-07-22 19:33 | Inpatient (IN) | payer OTHER ==
--- NOTE | 2019-07-22 20:27 | PDOC ---
History of Present Illness - General Chief Complaint: Wound Stated Complaint: DRAINING FROM/L/ HIP OPEN WOUND Time Seen by Provider: 07/22/19 20:23 History Source: Patient Exam Limitations: No Limitations - History of Present Illness Initial Comments: 07/22/19 20:27 Isabel Batista is a 64F with PMH chronic leg ulcer s/p KASH c/b MRSA by Dr. Moya 2016 w/ extensive history of wound infection and sepsis, OA, overactive bladder , HTN, anxiety, SLE in remission, presenting with worsening L hip pain and discharge after missing a scheduled washout and closure on 07/19/19. Patient saw Dr. Moya on 07/18/19 for wound dressing, was scheduled for a washout and drainage on 07/19/19 but missed the appointment. Now presents with worsening pain, chills, nausea and significant discharge from the wound site. Denies any numbness/tingling/blood from the wound site, denies ALLEN, chest pain, SOB, abd pain, constipation, diarrhea, or urinary symptoms. Has extensive history of chronic L wound ulcer, s/p wound vac and several washouts. Allergies to etomidate and morphine, hives reaction. Past History - Past Medical History Allergies/Adverse Reactions: Allergies Allergy/AdvReac Type Severity Reaction Status Date / Time etomidate Allergy Severe Rash Verified 07/22/19 20:10 latex Allergy Severe Rash Verified 07/22/19 20:10 morphine Allergy Severe Rash Verified 07/22/19 20:10 tomato Allergy Verified 07/22/19 20:10 Home Medications: Ambulatory Orders Diazepam [Valium] 5 mg PO HS PRN 08/24/18 Omeprazole 40 mg PO DAILY 08/24/18 Oxybutynin Chloride 5 mg PO TID 08/24/18 Duloxetine HCl [Cymbalta] 30 mg PO BID 15 Days #30 capsule. 03/19/19 Lisinopril [Prinivil] 10 mg PO DAILY 30 Days #30 tablet 03/19/19 Pregabalin [Lyrica] 100 mg PO TID #30 capsule MDD 3 03/19/19 Oxycodone HCl 30 mg PO Q4H PRN 3 Days #10 tablet MDD 6 04/09/19 Pantoprazole Sodium [Protonix -] 40 mg PO DAILY tablet.ec 05/01/19 Sennosides/Docusate Sodium [Pericolace -] 2 tablet PO BID tablet 05/01/19 Anemia: No Asthma: No Cancer: No Cardiac Disorders: No CVA: No COPD: No CHF: No Dementia: No Diabetes: No GI Disorders: Yes (GERD;CONSTIPATION) Disorders: No HTN: Yes Hypercholesterolemia: No Liver Disease: No Seizures: No Thyroid Disease: No - Surgical History Abdominal Surgery: No Appendectomy: No Cardiac Surgery: No Cholecystectomy: No Gastric Stapling: No GI Surgery: No Lung Surgery: No Neurologic Surgery: No Orthopedic Surgery: Yes (LEFT TOTAL HIP REPLACEMENT,MUTIPLE TIMES, BILATERAL SHOULDER REPLACEMENTS) - Psycho Social/Smoking Cessation Hx Smoking History: Current every day smoker Have you smoked in the past 12 months: Yes Number of Cigarettes Smoked Daily: 6 Information on smoking cessation initiated: No 'Breaking Loose' booklet given: 06/03/19 Hx Alcohol Use: No Drug/Substance Use Hx: No Substance Use Type: None Hx Substance Use Treatment: No Review of Systems - Review of Systems Able to Perform ROS?: Yes Constitutional: Yes: Chills, Malaise, Weakness. No: Fever HEENTM: No: Symptoms Reported Respiratory: No: Symptoms reported Cardiac (ROS): No: Symptoms Reported ABD/GI: Yes: Nausea. No: Constipated, Diarrhea, Poor Appetite, Poor Fluid Intake : No: Symptoms Reported Musculoskeletal: Yes: Muscle Pain (L hip) Integumentary: Yes: Other (wound to L hip) Neurological: Yes: Unsteady Gait (unable to walk, uses wheelchair). No: Headache, Numbness, Paresthesia, Weakness Endocrine: No: Symptoms Reported Hematologic/Lymphatic: No: Symptoms Reported All Other Systems: Reviewed and Negative *Physical Exam - Vital Signs Last Vital Signs Temp Pulse Resp BP Pulse Ox 99.0 F 90 18 170/100 100 07/22/19 20:07 07/22/19 20:07 07/22/19 20:07 07/22/19 20:07 07/22/19 20:07 - Physical Exam Comments: 07/22/19 21:50 Left hip exam: wound dressing large 12x12 skin occlusive dressing with multiple gauze soaked with discharge, leaking from posterior aspect 6cm x 2cm open wound with well-healed borders, ~5-6 inches of well-healed surgical incision scars superior and inferior mild clear yellow discharge from wound, no bleeding or pus tender to palpation to region surrounding wound no evidence of crepitus or underlying abscess RLE rotated laterally and fixed in place, poor ability to inward rotate 2/2 wound leg full ROM, able to flex at hip/knee/ankle sensation intact to light touch whole leg DP 2+, cap refill <3sec full motor strength all groups, moves leg spontaneously General Appearance: Yes: Nourished, Appropriately Dressed, Obese. No: Apparent Distress HEENT: positive: EOMI, MILLICENT, Normal Voice, Symmetrical, Pharynx Normal, Hearing Grossly Normal. negative: Scleral Icterus (R), Scleral Icterus (L), Muffled/ Hoarse voice Neck: positive: Trachea midline, Normal Thyroid, Supple. negative: Tender, Rigid, Decreased range of motion, Lymphadenopathy (R), Lymphadenopathy (L) Respiratory/Chest: positive: Lungs Clear, Normal Breath Sounds. negative: Chest Tender, Respiratory Distress, Accessory Muscle Use, Crackles, Rales, Rhonchi, Stridor, Wheezing Cardiovascular: positive: Regular Rhythm, Regular Rate. negative: Edema, Murmur Gastrointestinal/Abdominal: positive: Normal Bowel Sounds, Flat, Soft. negative : Distended, Guarding, Rebound Musculoskeletal: positive: Normal Inspection. negative: CVA Tenderness Extremity: positive: Normal Range of Motion, Tender (L hip), Pelvis Stable Integumentary: positive: Normal Color Neurologic: positive: Alert (mild drowsiness), Normal Mood/Affect, Normal Response ED Treatment Course - LABORATORY CBC & Chemistry Diagram: 07/22/19 22:10 07/22/19 22:10 Medical Decision Making - Medical Decision Making 07/22/19 20:27 Isabel Batista is a 64F with PMH chronic leg ulcer s/p KASH c/b MRSA by Dr. Moya w / extensive history of wound infection sepsis, OA, overactive bladder, HTN, anxiety, SLE in remission, presenting with worsening L hip pain and discharge after missing a scheduled washout and closure on 07/19/19. Patient presentation concerning for sepsis vs. severe wound infection. Patient is VS stable at this time, in no acute distress, wound is open and draining slowly but unconcerning for worsening infection, no active bleeding or odor. Discussed case with Dr. Albert Moya, who reports that patient missed her last washout as she reported. Recommends basic sepsis workup given report of chills/ nausea, wound culture, admission labs, IV Ancef. Would like admission to [facility] Admitting and will attempt to do a washout at [facility] tomorrow in the afternoon. Ordering: CMP CBC ESR CRP BC WC Coags T/S Patient is known ESBL E.coli per prior notes, was on Zosyn last admission. Patient reports MRSA+ infection as cause for wound infection in first place. Given history of resistant infections, will give 1g vancomycin and 3.375mg Zosyn for presumed drug-resistant infection in place of Ancef. 07/22/19 22:38 ECG shows NSR with HR 85, QRS 78, QTc 449, no evidence of ischemic changes or TWI. 07/22/19 23:44 Patient lethargic on nursing examination, snoring and unresponsive to voice, holding phone and half eaten sandwich. Awakens to sternal sub. Pupils not pinpoint, RR 16, no clear evidence of narcotic usage. Has all medications in her purse, including oxycodone and diazepam, but denies taking any. Medications seized for high suspicion of usage given acute change in mental status from alert/oriented at baseline. Labs not notable for any infectious processes concerning for AMS. Signed out to Drs. Thomas and Jamie, will admit to Med-Surg under Dr. Nino. Discharge - Discharge Information Problems reviewed: Yes Clinical Impression/Diagnosis: Wound, open, hip or thigh, Infection of lower extremity associated with hardware Condition: Stable - Admission Yes - Follow up/Referral - Patient Discharge Instructions - Post Discharge Activity
--- NOTE | 2019-07-22 22:06 | PDOC ---
Attending Attestation - Resident Resident Name: Tony Saldana - ED Attending Attestation I have performed the following: I have examined & evaluated the patient, The case was reviewed & discussed with the resident, I agree w/resident's findings & plan - HPI HPI: 07/22/19 22:04 see resident hpi - Physicial Exam PE: 07/22/19 22:04 agree with resident exam - Medical Decision Making 07/22/19 22:04 64-year-old female with draining left hip wound, status post infected hardware Patient to be admitted to medical service as requested by orthopedics 07/22/19 22:05
[2019-07-22] MEDS ORDERED: ceFAZolin 2 GRAM PREMIX BAG IVPB ONE (22:07)
[2019-07-22] MEDS ORDERED: VANCOMYCIN 1 GM in D5W (PRE-DOCKED) 1,000 MG/250 ML IVPB ONE (22:07)
[2019-07-22] MEDS ORDERED: PIPERACILLIN/TAZOB 3.375 GM 3.375 GM in DEXTROSE 5%-WATER - 50 ML IVPB ONE (22:15)
[2019-07-22] MEDS ORDERED: CEFAZOLIN 2 GM/D5W 2 GM/50 ML ML IVPB ONE (22:15)
[2019-07-22] MEDS ORDERED: VANCOMYCIN 1 GRAM (PRE-DOCKED) 1,000 MG/250 ML BAG IVPB ONE (22:15)
[2019-07-22] MEDS ORDERED: PIPERACILLIN/TAZOB 3.375 GM 3.375 GM/50 ML BAG IVPB ONE (22:15)
[2019-07-22 22:19] LABS: BASO % 0.9 % (0-2.0); EOS % 8.4 % (0-4.5); HEMATOCRIT 35.7 % (32.4-45.2); HEMOGLOBIN 11.5 GM/dL (10.7-15.3); LYMPH % 16.7 % (8-40); MCH 23.6 pg (25.7-33.7); MCHC 32.1 g/dl (32.0-36.0); MEAN CELL VOLUME 73.5 fl (80-96); MEAN PLT VOLUME 7.4 fl (7.5-11.1); PLATELET COUNT 382 K/MM3 (134-434); RBC 4.86 M/mm3 (3.60-5.2); RDW 17.9 % (11.6-15.6); WHITE BLOOD COUNT 9.1 K/mm3 (4.0-10.0)
[2019-07-22 22:31] LABS: INR 0.95 (0.83-1.09); PROTHROMBIN TIME (PATIENT) 11.2 SEC (9.7-13.0)
[2019-07-22 22:34] LABS: ACTIVATED PTT 34.4 SECONDS (25.2-36.5)
[2019-07-22 22:48] LABS: ALBUMIN 3.5 g/dl (3.4-5.0); BILIRUBIN,TOTAL 0.1 mg/dL (0.2-1); CALCIUM 9.2 mg/dL (8.5-10.1); CREATININE 0.8 mg/dL (0.55-1.3); POTASSIUM 3.9 mmol/L (3.5-5.1); TOT PROT 7.7 g/dl (6.4-8.2)
--- NOTE | 2019-07-23 00:12 | PN ---
Teaching Attending Note Name of Resident: Josselyn Ayala ATTENDING PHYSICIAN STATEMENT I saw and evaluated the patient. I reviewed the resident's note and discussed the case with the resident. I agree with the resident's findings and plan as documented. SUBJECTIVE: 64-year-old woman tobacco smoker with history of hypertension, anxiety, depression, chronic left hip wound status post initial left hip [place] [address] diaz which was complicated by infection. patient required multiple courses of antibiotics and many surgical interventions including-left hip debridement of soft tissue, muscle, bone, VAC application, multiple I and D wound washes, osteotomy left femur, removal of hardware She was noted to have grown multiple organisms from her left hip including MRSA enterococcus, E. coli. She was sent in by Dr. Diaz to the hospital as her left hip was draining purulent fluid and appeared infected. OBJECTIVE: Last Vital Signs Temp Pulse Resp BP Pulse Ox 98.1 F 79 18 124/68 100 07/23/19 00:30 07/23/19 00:30 07/23/19 00:30 07/23/19 00:30 07/22/19 20:07 GENERAL: Well developed, well nourished. Awake and alert. No acute distress. HEENT: Normocephalic, atraumatic. PERRLA, EOMI. No conjunctival pallor. Sclera are non- icteric. Moist mucous membranes. Oropharynx is clear. NECK: Supple. Full ROM. No JVD. Carotid pulses 2+ and symmetric, without bruits. No thyromegaly. No lymphadenopathy. CARDIOVASCULAR: Regular rate and rhythm. No murmurs, rubs, or gallops. Distal pulses are 2+ and symmetric. PULMONARY: No evidence of respiratory distress. Lungs clear to auscultation bilaterally. No wheezing, rales or rhonchi. ABDOMINAL: Soft. Non-tender. Non-distended. No rebound or guarding. No organomegaly. Normoactive bowel sounds. MUSCULOSKELETAL Normal range of motion at all joints. No bony deformities or tenderness. No CVA tenderness. EXTREMITIES: Left hip with open wound able to probe deeply, draining sinus, draining purulent to serous fluid.Not very tender to palpation. Abnormal Lab Results 07/22/19 07/22/19 07/22/19 21:21 22:10 22:10 MCV 73.5 L MCH 23.6 L RDW 17.9 H MPV 7.4 L Eosinophils % 8.4 H ESR 60 H Chloride Anion Gap Total Bilirubin AST Alkaline Phosphatase C-Reactive Protein 4.5 H 07/22/19 22:10 MCV MCH RDW MPV Eosinophils % ESR Chloride 110 H Anion Gap 5 L Total Bilirubin 0.1 L AST 12 L Alkaline Phosphatase 136 H C-Reactive Protein Imaging reviewed ASSESSMENT AND PLAN: 64-year-old woman with nonhealing left hip wound, polymicrobial infections in the past. Suspect underlying osteomyelitis. Will likely require debridement and prolonged course of IV antibiotics. MedSurg Blood cultures x2 ESR and CRP Wound culture Meropenem and vancomycin empirically Strongly advised smoking cessationexplained to patient that it is likely reason why wound is not healing properly Frequent dressing changes Orthopedics consultation for debridement and wound care Infectious disease consultation What obtained pelvic MRI to evaluate extent of infection and evaluate for underlying osteomyelitis Heparin subcutaneously for DVT prophylaxis
[2019-07-23] MEDS: SODIUM CHLORIDE 1,000 ML IV SCH ×2 (00:24→01:30)
--- NOTE | 2019-07-23 01:17 | HP ---
CHIEF COMPLAINT: drainage and tenderness from left thigh chronic wound PCP:none HISTORY OF PRESENT ILLNESS: 64 year old female with Pmh of left total hip arthroplasty s/p washouts and wound vac due to chronic left wound ulcers, recurrent wound infections with resistant organisms, osteoarthritis, SLE in remission, HTN, anxiety, overactive bladder who presented to the ED with worsening left hip pain and drainage. The discharge was yellow green in color with absence of foul odor and blood. Patient missed her scheduled washout and closure with Dr Moya on 07/19/19 and did not re-schedule her appointment. She now presents with fever of 101.7, chills, nausea, worsening pain around the wound and increased discharge soaking through her dressings. Patient denies ALLEN, chest pain, SOB, abdominal pain, changes in bowel movement and urination, focal weakness/numbness. ER course was notable for: (1) CBC and CMP with elevated ALP 136 ESR 60 CRP 4.5 (2) Dr Moya consulted: antibiotics and sepsis workup to be sent (3) D5 / NS, vanc and zosyn due to history of resistant organisms and wound and blood cultures sent Recent Travel: denies PAST MEDICAL HISTORY: as above PAST SURGICAL HISTORY: shoulder surgery as well. Social History: Smokin cig a day ( pt was getting drowsy poss due to intake of her home narcotics) alcohol:denies Drugs: denies Allergies etomidate Allergy (Severe, Verified 07/22/19 20:10) Rash latex Allergy (Severe, Verified 07/22/19 20:10) Rash morphine Allergy (Severe, Verified 07/22/19 20:10) Rash tomato Allergy (Verified 07/22/19 20:10) HOME MEDICATIONS: Home Medications Medication Instructions Recorded Diazepam [Valium] 5 mg PO HS PRN 08/24/18 Omeprazole 40 mg PO DAILY 08/24/18 Oxybutynin Chloride 5 mg PO TID 08/24/18 Duloxetine HCl [Cymbalta] 30 mg PO BID 15 Days #30 capsule. 03/19/19 Lisinopril [Prinivil] 10 mg PO DAILY 30 Days #30 tablet 03/19/19 Pregabalin [Lyrica] 100 mg PO TID #30 capsule MDD 3 03/19/19 Oxycodone HCl 30 mg PO Q4H PRN 3 Days #10 tablet 04/09/19 MDD 6 Pantoprazole Sodium [Protonix -] 40 mg PO DAILY tablet.ec 05/01/19 Sennosides/Docusate Sodium 2 tablet PO BID tablet 05/01/19 [Pericolace -] REVIEW OF SYSTEMS CONSTITUTIONAL: Absent: fever, chills, diaphoresis, generalized weakness, malaise, loss of appetite, weight change HEENT: Absent: rhinorrhea, nasal congestion, throat pain, throat swelling, difficulty swallowing, mouth swelling, ear pain, eye pain, visual changes CARDIOVASCULAR: Absent: chest pain, syncope, palpitations, irregular heart rate, lightheadedness , peripheral edema RESPIRATORY: Absent: cough, shortness of breath, dyspnea with exertion, orthopnea, wheezing, stridor, hemoptysis GASTROINTESTINAL: Absent: abdominal pain, abdominal distension, nausea, vomiting, diarrhea, constipation, melena, hematochezia GENITOURINARY: Absent: dysuria, frequency, urgency, hesitancy, hematuria, flank pain, genital pain MUSCULOSKELETAL: Absent: myalgia, arthralgia, joint swelling, back pain, neck pain SKIN: Absent: rash, itching, pallor HEMATOLOGIC/IMMUNOLOGIC: frequent infections Absent: easy bleeding, easy bruising, lymphadenopathy ENDOCRINE: Absent: unexplained weight gain, unexplained weight loss, heat intolerance, cold intolerance NEUROLOGIC: Absent: headache, focal weakness or paresthesias, dizziness, unsteady gait, seizure, mental status changes, bladder or bowel incontinence PSYCHIATRIC: Absent: anxiety, depression, suicidal or homicidal ideation, hallucinations. PHYSICAL EXAMINATION Vital Signs - 24 hr 07/22/19 20:07 Temperature 98.0 F Pulse Rate 90 Respiratory 18 Rate Blood Pressure 170/100 O2 Sat by Pulse 100 Oximetry (%) GENERAL: Awake, alert, and fully oriented, in no acute distress. HEAD: Normal with no signs of trauma. EYES: Pupils equal, round and reactive to light, extraocular movements intact, sclera anicteric, conjunctiva clear. No lid lag. EARS, NOSE, THROAT: oropharynx clear without exudates. Moist mucous membranes. NECK: Normal range of motion, supple without lymphadenopathy, JVD, or masses. LUNGS: Breath sounds equal, clear to auscultation bilaterally. No wheezes, and no crackles. No accessory muscle use. HEART: Regular rate and rhythm, normal S1 and S2 without murmur, rub or gallop. ABDOMEN: Soft, nontender, not distended, normoactive bowel sounds, no guarding, no rebound, no masses. No hepatomegaly or splenomegaly. MUSCULOSKELETAL: No CVA tenderness. UPPER EXTREMITIES: 2+ pulses, warm, well-perfused. No cyanosis. No clubbing. No peripheral edema. LOWER EXTREMITIES: 2+ pulses, warm, well-perfused. No calf tenderness. No peripheral edema. NEUROLOGICAL: Cranial nerves II-XII intact. Normal speech. Normal gait. PSYCHIATRIC: drowsy. SKIN: Warm, dry, normal turgor, Left chronic hip with with significant drainage but no erythema or fluctuance noted Laboratory Results - last 24 hr 07/22/19 07/22/19 07/22/19 21:21 22:10 22:10 WBC RBC Hgb Hct MCV MCH MCHC RDW Plt Count MPV Absolute Neuts (auto) Neutrophils % Lymphocytes % Monocytes % Eosinophils % Basophils % Nucleated RBC % ESR 60 H PT with INR 11.20 INR 0.95 PTT (Actin FS) 34.4 Sodium Potassium Chloride Carbon Dioxide Anion Gap BUN Creatinine Est GFR (CKD-EPI)AfAm Est GFR (CKD-EPI)NonAf Random Glucose Calcium Magnesium Total Bilirubin AST ALT Alkaline Phosphatase C-Reactive Protein 4.5 H Total Protein Albumin Blood Type Antibody Screen 07/22/19 07/22/19 07/22/19 22:10 22:10 22:10 WBC 9.1 RBC 4.86 Hgb 11.5 Hct 35.7 D MCV 73.5 L MCH 23.6 L MCHC 32.1 RDW 17.9 H Plt Count 382 D MPV 7.4 L Absolute Neuts (auto) 6.4 Neutrophils % 70.0 Lymphocytes % 16.7 Monocytes % 4.0 Eosinophils % 8.4 H Basophils % 0.9 Nucleated RBC % 0 ESR Cancelled PT with INR INR PTT (Actin FS) Sodium 140 Potassium 3.9 Chloride 110 H Carbon Dioxide 25 Anion Gap 5 L BUN 15.0 Creatinine 0.8 Est GFR (CKD-EPI)AfAm 90.30 Est GFR (CKD-EPI)NonAf 77.91 Random Glucose 94 Calcium 9.2 Magnesium 2.0 Total Bilirubin 0.1 L AST 12 L ALT 13 Alkaline Phosphatase 136 H C-Reactive Protein Total Protein 7.7 Albumin 3.5 Blood Type A POSITIVE Antibody Screen Negative ASSESSMENT/PLAN: 64 year old female with Pmh of left total hip arthroplasty s/p washouts and wound vac due to chronic left wound ulcers, recurrent wound infections with resistant organisms, osteoarthritis, SLE, HTN, anxiety, overactive bladder who presented to the ED with worsening left hip pain and drainage. admitted for left hip wound infection s/p missed washout appointment Left hip wound infection 2/2 missed washout appointment on 07/19/19 pt currently afebrile without a white count NPO tylenol for pain. Pt has home meds for pain control. 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 poss intervention tomorrow pre op labs sent MRI without contrast to r/o OM monitor vitals and cbc contact precautions PT Chronic medical problems resume home meds once med rec pharmacy was closed overnight DVT SCDs for poss intervention tomorrow Visit type - Emergency Visit Emergency Visit: Yes ED Registration Date: 07/22/19 Care time: The patient presented to the Emergency Department on the above date and was hospitalized for further evaluation of their emergent condition. - New Patient This patient is new to me today: Yes Date on this admission: 07/23/19 - Critical Care Critical Care patient: No ATTENDING PHYSICIAN STATEMENT I saw and evaluated the patient. I reviewed the resident's note and discussed the case with the resident. I agree with the resident's findings and plan as documented. SUBJECTIVE: OBJECTIVE: ASSESSMENT AND PLAN:
[2019-07-23] MEDS ORDERED: MEROPENEM 1 GM VIAL (RESTRICTED TO ID) IVPB ONE ×3 (01:22→17:12)
[2019-07-23] MEDS ORDERED: DEXTROSE 5%-WATER 100 ML IVPB ONE ×3 (01:22→17:13)
[2019-07-23] MEDS: MEROPENEM 1 GM in DEXTROSE 5%-WATER 100 ML IVPB SCH ×3 (01:31→17:56)
[2019-07-23] MEDS ORDERED: MEROPENEM 1 GM in DEXTROSE 5%-WATER 100 ML IVPB SCH (02:00)
[2019-07-23 02:41] VITALS: BMI 27.7
[2019-07-23] MEDS: HEPARIN NA (PORCINE) 5,000 UNITS/ML 1ML VIAL SQ SCH ×3 (06:12→21:53)
[2019-07-23] MEDS ORDERED: ACETAMINOPHEN 325 MG TABLET (FP) PO PRN (06:20)
[2019-07-23] MEDS ORDERED: oxyCODONE HCL 5 MG TABLET PO PRN ×2 (07:52→12:02)
--- NOTE | 2019-07-23 09:18 | EKG ---
Test Reason : Blood Pressure : / mmHG Vent. Rate : 085 BPM Atrial Rate : 085 BPM P-R Int : 152 ms QRS Dur : 078 ms QT Int : 378 ms P-R-T Axes : 054 033 051 degrees QTc Int : 449 ms NORMAL SINUS RHYTHM NORMAL ECG WHEN COMPARED WITH ECG OF 29-APR-2019 18:20, NO SIGNIFICANT CHANGE WAS FOUND Confirmed by MD Dominique Edward ([id number]) on 07/23/2019 9:18:08 AM Referred By: Confirmed By:Beltran Dominique MD
[2019-07-23] MEDS ORDERED: VANCOMYCIN 1 GM in D5W (PRE-DOCKED) 1,000 MG/250 ML IVPB SCH (10:00)
[2019-07-23] MEDS ORDERED: VANCOMYCIN 1 GRAM (PRE-DOCKED) 1,000 MG/250 ML BAG IVPB ONE (10:00)
[2019-07-23 10:13] LABS: BASO % 1.1 % (0-2.0); EOS % 9.3 % (0-4.5); HEMOGLOBIN 10.6 GM/dL (10.7-15.3); LYMPH % 20.5 % (8-40); MCH 23.5 pg (25.7-33.7); MCHC 32.1 g/dl (32.0-36.0); MEAN CELL VOLUME 73.1 fl (80-96); MEAN PLT VOLUME 7.3 fl (7.5-11.1); MONO % 4.8 % (3.8-10.2); NEUT % 64.3 % (42.8-82.8); PLATELET COUNT 330 K/MM3 (134-434); RBC 4.52 M/mm3 (3.60-5.2); RDW 18.2 % (11.6-15.6); WHITE BLOOD COUNT 7.4 K/mm3 (4.0-10.0)
[2019-07-23 10:28] LABS: INR 0.97 (0.83-1.09); PROTHROMBIN TIME (PATIENT) 11.5 SEC (9.7-13.0)
[2019-07-23 10:31] LABS: ACTIVATED PTT 32.7 SECONDS (25.2-36.5)
[2019-07-23 10:46] LABS: ALBUMIN 2.9 g/dl (3.4-5.0); BILIRUBIN,TOTAL 0.3 mg/dL (0.2-1); BLOOD UREA NITROGEN 14.7 mg/dL (7-18); CALCIUM 8.8 mg/dL (8.5-10.1); CREATININE 0.7 mg/dL (0.55-1.3); PHOSPHOROUS 3.8 mg/dL (2.5-4.9); POTASSIUM 3.6 mmol/L (3.5-5.1); TOT PROT 6.7 g/dl (6.4-8.2)
--- NOTE | 2019-07-23 14:14 | CON.ID ---
Consult Consult Specialty:: infectious diseases Referred by:: Reason for Consultation:: wound infection - History of Present Illness Chief Complaint: opening of the wound on the left thigh with drain History of Present Illness: 64 year old female with Pmh of left total hip arthroplasty s/p washouts and wound vac due to chronic left wound ulcers, recurrent wound infections with resistant organisms, osteoarthritis, SLE in remission, HTN, anxiety, overactive bladder who presented to the ED with worsening left hip pain and drainage. The discharge was yellow green in color with absence of foul odor and blood. Patient missed her scheduled washout and closure with Dr Moya on 07/19/19 and did not re-schedule her appointment. She now presents with fever of 101.7, chills, nausea, worsening pain around the wound and increased discharge soaking through her dressings. mentions that the wound just opened up - History Source History Provided By: Patient Limitations to Obtaining History: No Limitations - Past Medical History Cardio/Vascular: Yes: HTN Psych: Yes: Depression - Past Surgical History Past Surgical History: Yes: Joint Replacement (THR, multiple wash outs, I&D) - Alcohol/Substance Use Hx Alcohol Use: No - Smoking History Smoking history: Current every day smoker Have you smoked in the past 12 months: Yes Aproximately how many cigarettes per day: 6 Home Medications - Allergies Allergies/Adverse Reactions: Allergies Allergy/AdvReac Type Severity Reaction Status Date / Time etomidate Allergy Severe Rash Verified 07/22/19 20:10 latex Allergy Severe Rash Verified 07/22/19 20:10 morphine Allergy Severe Rash Verified 07/22/19 20:10 tomato Allergy Verified 07/22/19 20:10 - Home Medications Home Medications: Ambulatory Orders Omeprazole 40 mg PO DAILY 08/24/18 Oxybutynin Chloride 5 mg PO TID 08/24/18 Duloxetine HCl [Cymbalta] 30 mg PO BID 15 Days #30 capsule. 03/19/19 Pregabalin [Lyrica] 100 mg PO TID #30 capsule MDD 3 03/19/19 Oxycodone HCl 30 mg PO Q4H PRN 3 Days #10 tablet MDD 6 04/09/19 Sennosides/Docusate Sodium [Pericolace -] 2 tablet PO BID tablet 05/01/19 Fluconazole 200 mg PO DAILY 07/23/19 Oxycodone HCl [Oxycodone HCl ER] 80 mg PO TID 07/23/19 Review of Systems - Review of Systems Constitutional: reports: Fever Eyes: reports: No Symptoms HENT: reports: No Symptoms Neck: reports: No Symptoms Cardiovascular: reports: No Symptoms Respiratory: reports: No Symptoms Gastrointestinal: reports: No Symptoms Genitourinary: reports: No Symptoms Musculoskeletal: reports: No Symptoms Integumentary: reports: Wound Neurological: reports: No Symptoms Endocrine: reports: No Symptoms Hematology/Lymphatic: reports: No Symptoms Psychiatric: reports: No Symptoms Physical Exam Vital Signs: Vital Signs Temperature 98.5 F 07/23/19 07:01 Pulse Rate 78 07/23/19 07:01 Respiratory Rate 20 07/23/19 07:01 Blood Pressure 151/90 07/23/19 07:01 O2 Sat by Pulse Oximetry (%) 100 07/23/19 04:57 Constitutional: Yes: Well Nourished, No Distress, Calm Eyes: Yes: Conjunctiva Clear HENT: Yes: Atraumatic, Normocephalic Neck: Yes: Supple, Trachea Midline Cardiovascular: Yes: Regular Rate and Rhythm Respiratory: Yes: Regular, CTA Bilaterally Gastrointestinal: Yes: Normal Bowel Sounds, Soft Musculoskeletal: Yes: WNL Extremities: Yes: Other (left hip wound) Wound/Incision: Yes: Dressing Removed, Draining Neurological: Yes: Alert, Oriented Psychiatric: Yes: Alert, Oriented Labs: CBC, BMP 07/23/19 09:56 07/23/19 09:56 Imaging - Results Chest X-ray: Report Reviewed, Image Reviewed Assessment/Plan 64 year old female with Pmh of left total hip arthroplasty s/p washouts and wound vac due to chronic left wound ulcers, recurrent wound infections with resistant organisms, osteoarthritis, SLE, HTN, anxiety, overactive bladder who presented to the ED with worsening left hip pain and drainage. admitted for left hip wound infection s/p missed washout appointment left hip wound infection sle htn anxiety plan will continue vanco and zosyn await for cx reports rest as per the team await for imaging studies
[2019-07-23] MEDS: PREGABALIN 100 MG CAPSULE PO SCH ×2 (14:15→21:53)
[2019-07-23] MEDS: OXYBUTYNIN CHLORIDE 5 MG TABLET PO SCH ×2 (14:15→21:54)
[2019-07-23] MEDS: PANTOPRAZOLE 40 MG TABLET (FP) PO SCH (14:17)
[2019-07-23] MEDS: DULoxetine HCL 30 MG CAPSULE.DR PO SCH ×2 (14:22→21:53)
[2019-07-23] MEDS: VANCOMYCIN HCL 1,250 MG in DEXTROSE 5%-WATER - 250 ML IVPB SCH (15:56)
--- NOTE | 2019-07-23 17:21 | PN ---
Teaching Attending Note Name of Resident: Martha Brewer ATTENDING PHYSICIAN STATEMENT I saw and evaluated the patient. I reviewed the resident's note and discussed the case with the resident. I agree with the resident's findings and plan as documented. SUBJECTIVE: pain in L hip. no SOB or cough , or CP. reports yellow d/c form wound that started 1 week after her dc. packing and Abx were given as out pt . last course of Abx finished 3 days ago ( Augmentin ) OBJECTIVE: NAD CV : RRR Lungs: CATB Abd: sfot, NT, ND , NL BS Ext : No edema on legs. L LE is shorter than R. L hip with a very deep wound with yellow discharge in side. no erythema. tenderness around the wound. ASSESSMENT AND PLAN: Unfortunate 64 y/o lady with h/p L hip replacement in 2017 with a prolonged complicated course with wound infections, I&D, vac, Abx courses, and hospitalizations. She also has depression , anxiety , opioids dependence , and HTN who presented with drainage from L hip 1- L hip infected wound: - previous cx reviewed. - cont meropenem and vanco - pain management is an issue as she is on massive doses of oxycodone ( confirmed by student with her pharmacy ) . - will give oxycodone 30 q6h, and oxycontin 10 q12 for now - place a pain management consult - follow cx - to OR tomorrow per RN d/w ortho - MRI pending - CAse was d/w Dr. Munoz - IVf for today, probably dc after Sx 2- neuropathy, and depression : cotn cymbalta and lyrica HLOC
--- NOTE | 2019-07-23 17:30 | PN ---
Physical Exam: SUBJECTIVE: Patient seen and examined in the morning. No acute events overnight. Patient complains of chronic pain and generalized myalgias, but no complaints of chest pain, shortness of breath, abdominal pain, nausea, vomiting , diarrhea, dysuria. OBJECTIVE: Vital Signs Period Temp Pulse Resp BP Sys/Vargas Pulse Ox Last 24 Hr 98.0 F-99.0 F 70-90 18-20 124-170/68-100 98-100 GENERAL: The patient is awake, alert, and fully oriented, in no acute distress. HEAD: Normal with no signs of trauma. EYES: PERRL, extraocular movements intact, sclera anicteric, conjunctiva clear. NECK: Trachea midline, full range of motion, supple. LUNGS: Breath sounds equal, clear to auscultation bilaterally, no wheezes, no crackles. HEART: Regular rate and rhythm, S1, S2 without murmur, rub or gallop. ABDOMEN: Soft, nontender, nondistended, normoactive bowel sounds, no guarding. EXTREMITIES: 2+ pulses, warm, well-perfused, no edema. Patient has left hip ulcer, that is roughly 2x3x5 cm deep. There is yellow and green discharge in. No erythema surrounding the area. NEUROLOGICAL: Cranial nerves II through XII grossly intact. Normal speech. Laboratory Results - last 24 hr 07/22/19 07/22/19 07/22/19 21:21 22:10 22:10 WBC RBC Hgb Hct MCV MCH MCHC RDW Plt Count MPV Absolute Neuts (auto) Neutrophils % Lymphocytes % Monocytes % Eosinophils % Basophils % Nucleated RBC % ESR 60 H PT with INR 11.20 INR 0.95 PTT (Actin FS) 34.4 Sodium Potassium Chloride Carbon Dioxide Anion Gap BUN Creatinine Est GFR (CKD-EPI)AfAm Est GFR (CKD-EPI)NonAf Random Glucose Calcium Phosphorus Magnesium Total Bilirubin AST ALT Alkaline Phosphatase C-Reactive Protein 4.5 H Total Protein Albumin Blood Type Antibody Screen 07/22/19 07/22/19 07/22/19 22:10 22:10 22:10 WBC 9.1 RBC 4.86 Hgb 11.5 Hct 35.7 D MCV 73.5 L MCH 23.6 L MCHC 32.1 RDW 17.9 H Plt Count 382 D MPV 7.4 L Absolute Neuts (auto) 6.4 Neutrophils % 70.0 Lymphocytes % 16.7 Monocytes % 4.0 Eosinophils % 8.4 H Basophils % 0.9 Nucleated RBC % 0 ESR Cancelled PT with INR INR PTT (Actin FS) Sodium 140 Potassium 3.9 Chloride 110 H Carbon Dioxide 25 Anion Gap 5 L BUN 15.0 Creatinine 0.8 Est GFR (CKD-EPI)AfAm 90.30 Est GFR (CKD-EPI)NonAf 77.91 Random Glucose 94 Calcium 9.2 Phosphorus Magnesium 2.0 Total Bilirubin 0.1 L AST 12 L ALT 13 Alkaline Phosphatase 136 H C-Reactive Protein Total Protein 7.7 Albumin 3.5 Blood Type A POSITIVE Antibody Screen Negative 07/23/19 07/23/19 07/23/19 09:56 09:56 09:56 WBC 7.4 RBC 4.52 Hgb 10.6 L Hct 33.0 MCV 73.1 L MCH 23.5 L MCHC 32.1 RDW 18.2 H Plt Count 330 MPV 7.3 L Absolute Neuts (auto) 4.8 Neutrophils % 64.3 Lymphocytes % 20.5 D Monocytes % 4.8 Eosinophils % 9.3 H Basophils % 1.1 Nucleated RBC % 0 ESR PT with INR 11.50 INR 0.97 PTT (Actin FS) 32.7 Sodium 142 Potassium 3.6 Chloride 113 H Carbon Dioxide 24 Anion Gap 5 L BUN 14.7 Creatinine 0.7 Est GFR (CKD-EPI)AfAm 106.12 Est GFR (CKD-EPI)NonAf 91.56 Random Glucose 90 Calcium 8.8 Phosphorus 3.8 Magnesium 2.0 Total Bilirubin 0.3 AST 8 L ALT 12 L Alkaline Phosphatase 110 C-Reactive Protein Total Protein 6.7 Albumin 2.9 L Blood Type Antibody Screen Active Medications Generic Name Dose Route Start Last Admin Trade Name Freq PRN Reason Stop Dose Admin Acetaminophen 650 mg 07/23/19 06:20 Tylenol - PO Q4H PRN PAIN LEVEL 1-5 Duloxetine HCl 30 mg 07/23/19 22:00 07/23/19 14:22 Cymbalta - PO 30 mg BID ELKE Administration Heparin Sodium (Porcine) 5,000 unit 07/23/19 06:00 07/23/19 14:16 Heparin - SQ 5,000 unit TID ELKE Administration Sodium Chloride 1,000 mls @ 75 mls/hr 07/23/19 00:15 07/23/19 01:30 Normal Saline - IV 75 mls/hr ASDIR ELKE Administration Meropenem 1 gm/ Dextrose 100 mls @ 200 mls/hr 07/23/19 18:00 IVPB Q8H-IV ELKE Vancomycin HCl 1,250 mg/ 250 mls @ 166.667 mls/hr 07/23/19 14:30 07/23/19 15: 56 Dextrose IVPB Not Given Q12H ELKE Protocol Oxybutynin Chloride 5 mg 07/23/19 14:00 07/23/19 14:15 Ditropan - PO 5 mg TID ELKE Administration Oxycodone HCl 10 mg 07/23/19 22:00 Oxycontin - PO BID ELKE Oxycodone HCl 30 mg 07/23/19 16:59 Roxicodone - PO Q6H PRN PAIN LEVEL 7 - 10 Pantoprazole Sodium 40 mg 07/24/19 10:00 07/23/19 14:17 Protonix - PO 40 mg DAILY ELKE Administration Pregabalin 100 mg 07/23/19 14:00 07/23/19 14:15 Lyrica - PO 100 mg TID ELKE Administration Senna/Docusate Sodium 2 tablet 07/23/19 22:00 Pericolace - PO BID [facility] ASSESSMENT/PLAN: 64 F with PMH of left total hip arthorplasty s/p washouts and wound vac with multiple infections with multiple drug resistant bacteria who presents today with worsening drainage and pain in her hip after missing washout appointment. 1)Hip Drainage -Meronpenem 1 gram IV Q8H -Vancomycin 1250 mg IV Q12H -Scheduled for washout tomorrow -F/U culture from OR -Ortho consulted, appreciate recs -ID consulted, appreciate recs 2)Chronic pain -Oxycontin 10 mg BID -Oxycodone 30 mg Q6H PRN -Pain Management consulted, appreciate recs DVT: SCDs F:NS @ 75 ml/hr E:Monitor BMP N:NPO after midnight Dispo: Admitted to medicine Visit type - Emergency Visit Emergency Visit: Yes ED Registration Date: 07/22/19 Care time: The patient presented to the Emergency Department on the above date and was hospitalized for further evaluation of their emergent condition. - New Patient This patient is new to me today: Yes Date on this admission: 07/23/19 - Critical Care Critical Care patient: No ATTENDING PHYSICIAN STATEMENT I saw and evaluated the patient. I reviewed the resident's note and discussed the case with the resident. I agree with the resident's findings and plan as documented. SUBJECTIVE: OBJECTIVE: ASSESSMENT AND PLAN:
[2019-07-23] MEDS: oxyCODONE HCL 5 MG TABLET PO PRN (20:32)
[2019-07-23] MEDS: oxyCODONE HCL 10 MG SUSTAINED ACTING TABLET PO SCH (21:54)
[2019-07-23] MEDS: SENNOSIDES/DOCUSATE COMBO (SENNA PLUS) TABLET (UD) PO SCH (21:54)
[2019-07-24] MEDS: MEROPENEM 1 GM in DEXTROSE 5%-WATER 100 ML IVPB SCH ×3 (02:00→22:47)
[2019-07-24] MEDS ORDERED: MEROPENEM 1 GM VIAL (RESTRICTED TO ID) IVPB ONE ×2 (02:04→09:13)
[2019-07-24] MEDS ORDERED: DEXTROSE 5%-WATER 100 ML IVPB ONE ×2 (02:04→09:13)
[2019-07-24] MEDS: SODIUM CHLORIDE 1,000 ML IV SCH (02:19)
[2019-07-24] MEDS ORDERED: PT OWN MED DRAWER 7, Y5N ONE ×3 (02:21→16:13)
[2019-07-24] MEDS: VANCOMYCIN HCL 1,250 MG in DEXTROSE 5%-WATER - 250 ML IVPB SCH ×2 (02:31→16:15)
[2019-07-24] MEDS: HEPARIN NA (PORCINE) 5,000 UNITS/ML 1ML VIAL SQ SCH ×3 (07:24→22:45)
[2019-07-24] MEDS: OXYBUTYNIN CHLORIDE 5 MG TABLET PO SCH ×3 (07:24→22:46)
[2019-07-24] MEDS: PREGABALIN 100 MG CAPSULE PO SCH ×3 (07:25→22:45)
[2019-07-24] MEDS: oxyCODONE HCL 5 MG TABLET PO PRN (07:25)
[2019-07-24 08:02] LABS: EOS % 8.4 % (0-4.5); HEMATOCRIT 33.7 % (32.4-45.2); LYMPH % 21.8 % (8-40); MCH 23.7 pg (25.7-33.7); MCHC 32.5 g/dl (32.0-36.0); MEAN CELL VOLUME 73.1 fl (80-96); MEAN PLT VOLUME 7.1 fl (7.5-11.1); MONO % 6.6 % (3.8-10.2); NEUT % 62.2 % (42.8-82.8); PLATELET COUNT 379 K/MM3 (134-434); RBC 4.61 M/mm3 (3.60-5.2); RDW 17.8 % (11.6-15.6)
[2019-07-24 08:44] LABS: ALBUMIN 3.6 g/dl (3.4-5.0); BILIRUBIN,TOTAL 0.2 mg/dL (0.2-1); BLOOD UREA NITROGEN 17.2 mg/dL (7-18); CALCIUM 9.2 mg/dL (8.5-10.1); POTASSIUM 4.1 mmol/L (3.5-5.1); TOT PROT 7.8 g/dl (6.4-8.2)
--- NOTE | 2019-07-24 09:35 | PN ---
Teaching Attending Note Name of Resident: Martin Khan ATTENDING PHYSICIAN STATEMENT I saw and evaluated the patient. I reviewed the resident's note and discussed the case with the resident. I agree with the resident's findings and plan as documented. SUBJECTIVE: Patient is comfortable with no acute distress. going for wash out today. Vital Signs Temperature 98.6 F 07/24/19 08:29 Pulse Rate 75 07/24/19 08:29 Respiratory Rate 18 07/24/19 08:29 Blood Pressure 149/83 07/24/19 08:29 O2 Sat by Pulse Oximetry (%) 98 07/23/19 09:00 GENERAL: The patient is awake, alert, and fully oriented, in no acute distress. HEAD: Normal with no signs of trauma. EYES: PERRL, extraocular movements intact, sclera anicteric, conjunctiva clear. No ptosis. ENT: Ears normal, nares patent, oropharynx clear without exudates, moist mucous membranes. NECK: Trachea midline, full range of motion, supple. LUNGS: Breath sounds equal, clear to auscultation bilaterally, no wheezes, no crackles, no accessory muscle use. HEART: Regular rate and rhythm, S1, S2 without murmur, rub or gallop. ABDOMEN: Soft, nontender, nondistended, normoactive bowel sounds, no guarding, no rebound, no hepatosplenomegaly, no masses. EXTREMITIES: 2+ pulses, warm, well-perfused, no edema. pain in L hip, L LE is shorter than R. L hip with a very deep wound with yellow discharge in side NEUROLOGICAL: Cranial nerves II through XII grossly intact. Normal speech, gait not observed. PSYCH: Normal mood, normal affect. SKIN: Warm, dry, normal turgor, no rashes or lesions noted WBC 8.0 K/mm3 (4.0-10.0) 07/24/19 06:15 RBC 4.61 M/mm3 (3.60-5.2) 07/24/19 06:15 Hgb 11.0 GM/dL (10.7-15.3) 07/24/19 06:15 Hct 33.7 % (32.4-45.2) 07/24/19 06:15 MCV 73.1 fl (80-96) L 07/24/19 06:15 MCHC 32.5 g/dl (32.0-36.0) 07/24/19 06:15 RDW 17.8 % (11.6-15.6) H 07/24/19 06:15 Plt Count 379 K/MM3 (134-434) 07/24/19 06:15 MPV 7.1 fl (7.5-11.1) L 07/24/19 06:15 CMP Sodium 138 mmol/L (136-145) 07/24/19 06:15 Potassium 4.1 mmol/L (3.5-5.1) 07/24/19 06:15 Chloride 105 mmol/L (98-107) 07/24/19 06:15 Carbon Dioxide 28 mmol/L (21-32) 07/24/19 06:15 Anion Gap 5 MMOL/L (8-16) L 07/24/19 06:15 BUN 17.2 mg/dL (7-18) 07/24/19 06:15 Creatinine 1.0 mg/dL (0.55-1.3) 07/24/19 06:15 Random Glucose 80 mg/dL (74-106) 07/24/19 06:15 Calcium 9.2 mg/dL (8.5-10.1) 07/24/19 06:15 Total Bilirubin 0.2 mg/dL (0.2-1) 07/24/19 06:15 AST 10 U/L (15-37) L 07/24/19 06:15 ALT 13 U/L (13-61) 07/24/19 06:15 Alkaline Phosphatase 125 U/L (45-117) H 07/24/19 06:15 Total Protein 7.8 g/dl (6.4-8.2) 07/24/19 06:15 Albumin 3.6 g/dl (3.4-5.0) 07/24/19 06:15 Current Medications Generic Name Dose Route Start Last Admin Trade Name Freq PRN Reason Stop Dose Admin Acetaminophen 650 mg 07/23/19 06:20 Tylenol - PO Q4H PRN PAIN LEVEL 1-5 Duloxetine HCl 30 mg 07/23/19 22:00 07/23/19 21:53 Cymbalta - PO 30 mg BID [facility] Administration Heparin Sodium (Porcine) 5,000 unit 07/23/19 06:00 07/24/19 07:24 Heparin - SQ 5,000 unit TID [facility] Administration Sodium Chloride 1,000 mls @ 75 mls/hr 07/23/19 00:15 07/24/19 02:19 Normal Saline - IV Not Given ASDIR ELKE Meropenem 1 gm/ Dextrose 100 mls @ 200 mls/hr 07/23/19 18:00 07/24/19 09:21 IVPB 200 mls/hr Q8H-IV [facility] Administration Vancomycin HCl 1,250 mg/ 250 mls @ 166.667 mls/hr 07/23/19 14:30 07/24/19 02: 31 Dextrose IVPB 166.667 mls/hr Q12H [facility] Administration Protocol Oxybutynin Chloride 5 mg 07/23/19 14:00 07/24/19 07:24 Ditropan - PO 5 mg TID [facility] Administration Oxycodone HCl 10 mg 07/23/19 22:00 07/23/19 21:54 Oxycontin - PO 10 mg BID [facility] Administration Oxycodone HCl 30 mg 07/23/19 16:59 07/24/19 07:25 Roxicodone - PO 30 mg Q6H PRN Administration PAIN LEVEL 7 - 10 Pantoprazole Sodium 40 mg 07/24/19 10:00 07/23/19 14:17 Protonix - PO 40 mg DAILY [facility] Administration Pregabalin 100 mg 07/23/19 14:00 07/24/19 07:25 Lyrica - PO 100 mg TID [facility] Administration Senna/Docusate Sodium 2 tablet 07/23/19 22:00 07/23/19 21:54 Pericolace - PO 2 tablet BID [facility] Administration Home Medications Medication Instructions Recorded Omeprazole 40 mg PO DAILY 08/24/18 Oxybutynin Chloride 5 mg PO TID 08/24/18 Duloxetine HCl [Cymbalta] 30 mg PO BID 15 Days #30 capsule. 03/19/19 Pregabalin [Lyrica] 100 mg PO TID #30 capsule MDD 3 03/19/19 Oxycodone HCl 30 mg PO Q4H PRN 3 Days #10 tablet 04/09/19 MDD 6 Sennosides/Docusate Sodium 2 tablet PO BID tablet 05/01/19 [Pericolace -] Fluconazole 200 mg PO DAILY 07/23/19 Oxycodone HCl [Oxycodone HCl ER] 80 mg PO TID 07/23/19 Microbiology 07/22/19 21:41 Thigh - Left Gram Stain - Final 07/22/19 21:41 Thigh - Left Wound Culture - Preliminary Staphylococcus Coagulase Neg 07/23/19 05:00 Blood - Peripheral Venous Blood Culture - Preliminary NO GROWTH OBTAINED AFTER 24 HOURS, INCUBATION TO CONTINUE FOR 4 DAYS. 07/23/19 05:00 Blood - Peripheral Venous Blood Culture - Preliminary NO GROWTH OBTAINED AFTER 24 HOURS, INCUBATION TO CONTINUE FOR 4 DAYS. 07/22/19 22:10 Blood - Peripheral Venous Blood Culture - Preliminary NO GROWTH OBTAINED AFTER 24 HOURS, INCUBATION TO CONTINUE FOR 4 DAYS. 07/22/19 22:10 Blood - Peripheral Venous Blood Culture - Preliminary NO GROWTH OBTAINED AFTER 24 HOURS, INCUBATION TO CONTINUE FOR 4 DAYS. ASSESSMENT AND PLAN: Patient is a 64 y/o female with PMhx of L hip replacement in 2017 with a prolonged complicated course with wound infections, I&D, vac, Abx courses, and hospitalizations. She also has depression , anxiety , opioids dependence , and HTN who presented with drainage from L hip # L hip infected wound: continue meropenem and [place] ,Dr. Munoz on the case , will get Dr. Elliot franks for pain management since the patient is on a massive doses of oxycodone ( confirmed by student with her pharmacy ) . will give oxycodone 30 q6h, and oxycontin 10 q12 for now follow cx , to OR today as per ortho . Patient cannt have MRI since has titanium metal in her system # neuropathy, and depression : continue cymbalta and lyrica DVt px: SCDs , patient is going to OR today for I & D
--- NOTE | 2019-07-24 09:57 | PN ---
Progress Note, Physician History of Present Illness: stable no new issues - Current Medication List Current Medications: Active Medications Acetaminophen (Tylenol -) 650 mg PO Q4H PRN PRN Reason: PAIN LEVEL 1-5 Duloxetine HCl (Cymbalta -) 30 mg PO BID [facility] Last Admin: 07/23/19 21:53 Dose: 30 mg Heparin Sodium (Porcine) (Heparin -) 5,000 unit SQ TID [facility] Last Admin: 07/24/19 07:24 Dose: 5,000 unit Sodium Chloride (Normal Saline -) 1,000 mls @ 75 mls/hr IV ASDIR [facility] Last Admin: 07/24/19 02:19 Dose: Not Given Meropenem 1 gm/ Dextrose 100 mls @ 200 mls/hr IVPB Q8H-IV [facility] Last Admin: 07/24/19 09:21 Dose: 200 mls/hr Vancomycin HCl 1,250 mg/ (Dextrose) 250 mls @ 166.667 mls/hr IVPB Q12H [facility]; Protocol Last Admin: 07/24/19 02:31 Dose: 166.667 mls/hr Oxybutynin Chloride (Ditropan -) 5 mg PO TID [facility] Last Admin: 07/24/19 07:24 Dose: 5 mg Oxycodone HCl (Oxycontin -) 10 mg PO BID [facility] Last Admin: 07/23/19 21:54 Dose: 10 mg Oxycodone HCl (Roxicodone -) 30 mg PO Q6H PRN PRN Reason: PAIN LEVEL 7 - 10 Last Admin: 07/24/19 07:25 Dose: 30 mg Pantoprazole Sodium (Protonix -) 40 mg PO DAILY [facility] Last Admin: 07/23/19 14:17 Dose: 40 mg Pregabalin (Lyrica -) 100 mg PO TID [facility] Last Admin: 07/24/19 07:25 Dose: 100 mg Senna/Docusate Sodium (Pericolace -) 2 tablet PO BID [facility] Last Admin: 07/23/19 21:54 Dose: 2 tablet - Objective Vital Signs: Vital Signs Temperature 98.6 F 07/24/19 08:29 Pulse Rate 75 07/24/19 08:29 Respiratory Rate 18 07/24/19 08:29 Blood Pressure 149/83 07/24/19 08:29 O2 Sat by Pulse Oximetry (%) 98 07/23/19 09:00 Constitutional: Yes: No Distress, Calm Cardiovascular: Yes: S1, S2 Respiratory: Yes: Regular, CTA Bilaterally Gastrointestinal: Yes: Normal Bowel Sounds, Soft Musculoskeletal: Yes: WNL Extremities: Yes: Other Wound/Incision: Yes: Dressing Dry and Intact Neurological: Yes: Alert, Oriented Psychiatric: Yes: Alert, Oriented Labs: CBC, BMP 07/24/19 06:15 07/24/19 06:15 INR, PTT INR 0.97 (0.83-1.09) 07/23/19 09:56 Assessment/Plan 64 year old female with Pmh of left total hip arthroplasty s/p washouts and wound vac due to chronic left wound ulcers, recurrent wound infections with resistant organisms, osteoarthritis, SLE, HTN, anxiety, overactive bladder who presented to the ED with worsening left hip pain and drainage. admitted for left hip wound infection s/p missed washout appointment left hip wound infection sle htn anxiety plan continue abx await for imaging studies depending on that final plan cx results noted
[2019-07-24] MEDS: oxyCODONE HCL 10 MG SUSTAINED ACTING TABLET PO SCH (13:07)
[2019-07-24] MEDS: DULoxetine HCL 30 MG CAPSULE.DR PO SCH ×2 (13:08→22:46)
[2019-07-24] MEDS: SENNOSIDES/DOCUSATE COMBO (SENNA PLUS) TABLET (UD) PO SCH ×2 (13:09→22:45)
[2019-07-24] MEDS: PANTOPRAZOLE 40 MG TABLET (FP) PO SCH (13:09)
--- NOTE | 2019-07-24 15:36 | PN ---
Physical Exam: SUBJECTIVE: Patient seen and examined in the morning. No acute events overnight. Patient complains of chronic pain and wants more pain medication. Patient also complains of leak in her dressing for wound. No complaints of chest pain, shortness of breath, nausea, vomiting, diarrhea, fever, or chills. OBJECTIVE: Vital Signs Period Temp Pulse Resp BP Sys/Vargas Pulse Ox Last 24 Hr 97.5 F-98.6 F 75-95 18-20 130-156/70-86 GENERAL: The patient is awake, alert, and fully oriented, in no acute distress. HEAD: Normal with no signs of trauma. EYES: PERRL, extraocular movements intact, sclera anicteric, conjunctiva clear. NECK: Trachea midline, full range of motion, supple. LUNGS: Breath sounds equal, clear to auscultation bilaterally, no wheezes, no crackles. HEART: Regular rate and rhythm, S1, S2 without murmur, rub or gallop. ABDOMEN: Soft, nontender, nondistended, normoactive bowel sounds, no guarding. EXTREMITIES: 2+ pulses, warm, well-perfused, no edema. Dressing in place on left hip. No erythema around dressing, however dressing is starting to become discolored by yellow discharge. NEUROLOGICAL: Cranial nerves II through XII grossly intact. Normal speech. Laboratory Results - last 24 hr CBC, BMP 07/24/19 06:15 07/24/19 06:15 Active Medications Generic Name Dose Route Start Last Admin Trade Name Freq PRN Reason Stop Dose Admin Acetaminophen 650 mg 07/23/19 06:20 Tylenol - PO Q4H PRN PAIN LEVEL 1-5 Duloxetine HCl 30 mg 07/23/19 22:00 07/24/19 13:08 Cymbalta - PO 30 mg BID [facility]KE Administration Heparin Sodium (Porcine) 5,000 unit 07/23/19 06:00 07/24/19 13:09 Heparin - SQ Not Given TID ELKE Sodium Chloride 1,000 mls @ 75 mls/hr 07/23/19 00:15 07/24/19 02:19 Normal Saline - IV Not Given ASDIR ELKE Meropenem 1 gm/ Dextrose 100 mls @ 200 mls/hr 07/23/19 18:00 07/24/19 09:21 IVPB 200 mls/hr Q8H-IV [facility] Administration Vancomycin HCl 1,250 mg/ 250 mls @ 166.667 mls/hr 07/23/19 14:30 07/24/19 02: 31 Dextrose IVPB 166.667 mls/hr Q12H [facility] Administration Protocol Oxybutynin Chloride 5 mg 07/23/19 14:00 07/24/19 13:07 Ditropan - PO 5 mg TID [facility] Administration Oxycodone HCl 30 mg 07/23/19 16:59 07/24/19 07:25 Roxicodone - PO 30 mg Q6H PRN Administration PAIN LEVEL 7 - 10 Oxycodone HCl 20 mg 07/24/19 13:30 Oxycontin - PO BID ELKE Pantoprazole Sodium 40 mg 07/24/19 10:00 07/24/19 13:09 Protonix - PO 40 mg DAILY [facility] Administration Pregabalin 100 mg 07/23/19 14:00 07/24/19 13:07 Lyrica - PO 100 mg TID [facility]KE Administration Senna/Docusate Sodium 2 tablet 07/23/19 22:00 07/24/19 13:09 Pericolace - PO Not Given BID [facility] ASSESSMENT/PLAN: 64 F with PMH of left total hip arthorplasty s/p washouts and wound vac with multiple infections with multiple drug resistant bacteria who presents today with worsening drainage and pain in her hip after missing washout appointment. 1)Hip Drainage -Meronpenem 1 gram IV Q8H -Vancomycin 1250 mg IV Q12H -Scheduled for washout in the evening today as per Nursing team who was able to contact Dr. Moya. -F/U culture from OR -Ortho consulted, appreciate recs -ID consulted, appreciate recs 2)Chronic pain -Oxycontin 20 mg BID -Oxycodone 30 mg Q6H PRN -Pregabalin 100 mg PO TID -Duloxetine 30 mg PO BID -Pain Management consulted, appreciate recs DVT: SCDs F:NS @ 75 ml/hr E:Monitor BMP N:Regular Diet after procedure. Dispo: Admitted to medicine Visit type - Emergency Visit Emergency Visit: Yes ED Registration Date: 07/22/19 Care time: The patient presented to the Emergency Department on the above date and was hospitalized for further evaluation of their emergent condition. - New Patient This patient is new to me today: No - Critical Care Critical Care patient: No ATTENDING PHYSICIAN STATEMENT I saw and evaluated the patient. I reviewed the resident's note and discussed the case with the resident. I agree with the resident's findings and plan as documented. SUBJECTIVE: OBJECTIVE: ASSESSMENT AND PLAN:
[2019-07-24] MEDS ORDERED: ONDANSETRON 4 MG/2 ML VIAL IVPUSH PRN (18:21)
[2019-07-24] MEDS ORDERED: oxyCODONE HCL 5 MG TABLET PO PRN (18:21)
[2019-07-24] MEDS ORDERED: MIDAZOLAM HCL 2 MG/2 ML SINGLE DOSE VIAL ONE (19:03)
[2019-07-24] MEDS ORDERED: ceFAZolin SODIUM 1 GM VIAL IVPB ONE (19:10)
--- NOTE | 2019-07-24 20:02 | OP ---
Operative Note - Note: Operative Date: 07/24/19 Pre-Operative Diagnosis: Chrinic Left proximo lateral wound Left thigh. Operation: Incision drainage Debridement wound insertion wound VAC Findings: Deep cavity Surface fibrosis granulation bed Pale Induration fibroosseous tissue Surgeon: Albert Moya Anesthesiologist/ELECTRIC ENGINE MECHANIC: Giuliano Santo Anesthesia: General Specimens Removed: tissue from wound Drains & Tubes with Location: VAC Operative Report Dictated: Yes
--- NOTE | 2019-07-24 20:16 | PN ---
Progress Note (short form) - Note Progress Note: Brought back to OR as the inferior portion of the wound dehissed No overt infection. Iand D performed Cultures sent for MCS Wound VAC reinserted to stimulate granulation tissue and then attempt a repeat delayed primary closure ? Monday PLAN Pain MX opoid dependant VAC Antibiotics continue Ancef Boost nutrition
[2019-07-24] MEDS: oxyCODONE HCL 20 MG SUSTAINED ACTING TABLET PO SCH (22:46)
[2019-07-25] MEDS: SODIUM CHLORIDE 1,000 ML IV SCH (00:39)
[2019-07-25] MEDS: oxyCODONE HCL 5 MG TABLET PO PRN ×4 (00:39→22:41)
[2019-07-25] MEDS ORDERED: MEROPENEM 1 GM VIAL (RESTRICTED TO ID) IVPB ONE ×3 (01:12→18:04)
[2019-07-25] MEDS ORDERED: DEXTROSE 5%-WATER 100 ML IVPB ONE ×3 (01:12→18:05)
[2019-07-25] MEDS: MEROPENEM 1 GM in DEXTROSE 5%-WATER 100 ML IVPB SCH ×3 (01:23→18:19)
[2019-07-25] MEDS: VANCOMYCIN HCL 1,250 MG in DEXTROSE 5%-WATER - 250 ML IVPB SCH ×2 (04:25→13:48)
[2019-07-25] MEDS: HEPARIN NA (PORCINE) 5,000 UNITS/ML 1ML VIAL SQ SCH ×3 (05:43→21:22)
[2019-07-25] MEDS: PREGABALIN 100 MG CAPSULE PO SCH ×3 (05:43→21:23)
[2019-07-25] MEDS: OXYBUTYNIN CHLORIDE 5 MG TABLET PO SCH ×3 (05:43→21:22)
[2019-07-25 07:51] LABS: BASO % 0.2 % (0-2.0); EOS % 0.4 % (0-4.5); HEMATOCRIT 33.7 % (32.4-45.2); HEMOGLOBIN 10.8 GM/dL (10.7-15.3); LYMPH % 8.3 % (8-40); MCH 23.4 pg (25.7-33.7); MCHC 32.2 g/dl (32.0-36.0); MEAN CELL VOLUME 72.6 fl (80-96); MEAN PLT VOLUME 7.3 fl (7.5-11.1); MONO % 2.6 % (3.8-10.2); NEUT % 88.5 % (42.8-82.8); PLATELET COUNT 398 K/MM3 (134-434); RBC 4.63 M/mm3 (3.60-5.2); RDW 17.7 % (11.6-15.6); WHITE BLOOD COUNT 7.3 K/mm3 (4.0-10.0)
[2019-07-25 08:18] LABS: ALBUMIN 3.5 g/dl (3.4-5.0); BILIRUBIN,TOTAL 0.2 mg/dL (0.2-1); BLOOD UREA NITROGEN 14.6 mg/dL (7-18); CALCIUM 8.9 mg/dL (8.5-10.1); POTASSIUM 4.3 mmol/L (3.5-5.1); TOT PROT 7.8 g/dl (6.4-8.2)
[2019-07-25] MEDS: oxyCODONE HCL 20 MG SUSTAINED ACTING TABLET PO SCH ×2 (09:55→21:23)
[2019-07-25] MEDS: SENNOSIDES/DOCUSATE COMBO (SENNA PLUS) TABLET (UD) PO SCH ×2 (09:55→21:22)
[2019-07-25] MEDS: DULoxetine HCL 30 MG CAPSULE.DR PO SCH ×2 (09:55→21:23)
[2019-07-25] MEDS: PANTOPRAZOLE 40 MG TABLET (FP) PO SCH (09:55)
--- NOTE | 2019-07-25 10:04 | PN ---
Teaching Attending Note Name of Resident: Martin Khan ATTENDING PHYSICIAN STATEMENT I saw and evaluated the patient. I reviewed the resident's note and discussed the case with the resident. I agree with the resident's findings and plan as documented. SUBJECTIVE: Patient is comfortable with no acute distress, patient is s/p I&D. Initial Vital Signs Temp Pulse Resp BP Pulse Ox 99.0 F 90 18 170/100 100 07/22/19 20:07 07/22/19 20:07 07/22/19 20:07 07/22/19 20:07 07/22/19 20:07 GENERAL: The patient is awake, alert, and fully oriented, in no acute distress. HEAD: Normal with no signs of trauma. EYES: PERRL, extraocular movements intact, sclera anicteric, conjunctiva clear. ENT: Ears normal, oropharynx clear without exudates, moist mucous membranes. NECK: Trachea midline, full range of motion, supple. LUNGS: Breath sounds equal, clear to auscultation bilaterally, no wheezes, no crackles, no accessory muscle use. HEART: Regular rate and rhythm, S1, S2 without murmur, rub or gallop. ABDOMEN: Soft, nontender, nondistended, normoactive bowel sounds, no guarding, no rebound, no hepatosplenomegaly, no masses. EXTREMITIES: 2+ pulses, warm, well-perfused, L LE is shorter than R. L hip with a wound vac. no erythema. tenderness around the wound. NEUROLOGICAL: Cranial nerves II through XII grossly intact. Normal speech, gait not observed. PSYCH: Normal mood, normal affect. SKIN: Warm, dry, normal turgor, no rashes or lesions noted WBC 8.0 K/mm3 (4.0-10.0) 07/24/19 06:15 RBC 4.61 M/mm3 (3.60-5.2) 07/24/19 06:15 Hgb 11.0 GM/dL (10.7-15.3) 07/24/19 06:15 Hct 33.7 % (32.4-45.2) 07/24/19 06:15 MCV 73.1 fl (80-96) L 07/24/19 06:15 MCHC 32.5 g/dl (32.0-36.0) 07/24/19 06:15 RDW 17.8 % (11.6-15.6) H 07/24/19 06:15 Plt Count 379 K/MM3 (134-434) 07/24/19 06:15 MPV 7.1 fl (7.5-11.1) L 07/24/19 06:15 CMP Sodium 138 mmol/L (136-145) 07/24/19 06:15 Potassium 4.1 mmol/L (3.5-5.1) 07/24/19 06:15 Chloride 105 mmol/L (98-107) 07/24/19 06:15 Carbon Dioxide 28 mmol/L (21-32) 07/24/19 06:15 Anion Gap 5 MMOL/L (8-16) L 07/24/19 06:15 BUN 17.2 mg/dL (7-18) 07/24/19 06:15 Creatinine 1.0 mg/dL (0.55-1.3) 07/24/19 06:15 Random Glucose 80 mg/dL (74-106) 07/24/19 06:15 Calcium 9.2 mg/dL (8.5-10.1) 07/24/19 06:15 Total Bilirubin 0.2 mg/dL (0.2-1) 07/24/19 06:15 AST 10 U/L (15-37) L 07/24/19 06:15 ALT 13 U/L (13-61) 07/24/19 06:15 Alkaline Phosphatase 125 U/L (45-117) H 07/24/19 06:15 Total Protein 7.8 g/dl (6.4-8.2) 07/24/19 06:15 Albumin 3.6 g/dl (3.4-5.0) 07/24/19 06:15 Current Medications Generic Name Dose Route Start Last Admin Trade Name Freq PRN Reason Stop Dose Admin Acetaminophen 650 mg 07/23/19 06:20 Tylenol - PO Q4H PRN PAIN LEVEL 1-5 Duloxetine HCl 30 mg 07/23/19 22:00 07/23/19 21:53 Cymbalta - PO 30 mg BID ELKE Administration Heparin Sodium (Porcine) 5,000 unit 07/23/19 06:00 07/24/19 07:24 Heparin - SQ 5,000 unit TID [facility]KE Administration Sodium Chloride 1,000 mls @ 75 mls/hr 07/23/19 00:15 07/24/19 02:19 Normal Saline - IV Not Given ASDIR ELKE Meropenem 1 gm/ Dextrose 100 mls @ 200 mls/hr 07/23/19 18:00 07/24/19 09:21 IVPB 200 mls/hr Q8H-IV [facility] Administration Vancomycin HCl 1,250 mg/ 250 mls @ 166.667 mls/hr 07/23/19 14:30 07/24/19 02: 31 Dextrose IVPB 166.667 mls/hr Q12H [facility] Administration Protocol Oxybutynin Chloride 5 mg 07/23/19 14:00 07/24/19 07:24 Ditropan - PO 5 mg TID [facility] Administration Oxycodone HCl 10 mg 07/23/19 22:00 07/23/19 21:54 Oxycontin - PO 10 mg BID [facility] Administration Oxycodone HCl 30 mg 07/23/19 16:59 07/24/19 07:25 Roxicodone - PO 30 mg Q6H PRN Administration PAIN LEVEL 7 - 10 Pantoprazole Sodium 40 mg 07/24/19 10:00 07/23/19 14:17 Protonix - PO 40 mg DAILY [facility] Administration Pregabalin 100 mg 07/23/19 14:00 07/24/19 07:25 Lyrica - PO 100 mg TID [facility] Administration Senna/Docusate Sodium 2 tablet 07/23/19 22:00 07/23/19 21:54 Pericolace - PO 2 tablet BID [facility] Administration Home Medications Medication Instructions Recorded Omeprazole 40 mg PO DAILY 08/24/18 Oxybutynin Chloride 5 mg PO TID 08/24/18 Duloxetine HCl [Cymbalta] 30 mg PO BID 15 Days #30 capsule. 03/19/19 Pregabalin [Lyrica] 100 mg PO TID #30 capsule MDD 3 03/19/19 Oxycodone HCl 30 mg PO Q4H PRN 3 Days #10 tablet 04/09/19 MDD 6 Sennosides/Docusate Sodium 2 tablet PO BID tablet 05/01/19 [Pericolace -] Fluconazole 200 mg PO DAILY 07/23/19 Oxycodone HCl [Oxycodone HCl ER] 80 mg PO TID 07/23/19 Microbiology 07/22/19 21:41 Thigh - Left Gram Stain - Final 07/22/19 21:41 Thigh - Left Wound Culture - Preliminary Staphylococcus Coagulase Neg 07/23/19 05:00 Blood - Peripheral Venous Blood Culture - Preliminary NO GROWTH OBTAINED AFTER 24 HOURS, INCUBATION TO CONTINUE FOR 4 DAYS. 07/23/19 05:00 Blood - Peripheral Venous Blood Culture - Preliminary NO GROWTH OBTAINED AFTER 24 HOURS, INCUBATION TO CONTINUE FOR 4 DAYS. 07/22/19 22:10 Blood - Peripheral Venous Blood Culture - Preliminary NO GROWTH OBTAINED AFTER 24 HOURS, INCUBATION TO CONTINUE FOR 4 DAYS. 07/22/19 22:10 Blood - Peripheral Venous Blood Culture - Preliminary NO GROWTH OBTAINED AFTER 24 HOURS, INCUBATION TO CONTINUE FOR 4 DAYS. ASSESSMENT AND PLAN: Patient is a 64 y/o female with PMhx of L hip replacement in 2017 with a prolonged complicated course with wound infections, I&D, vac, Abx courses, and hospitalizations. She also has depression , anxiety , opioids dependence , and HTN who presented with drainage from L hip # POD #1 s/p I&D by Surgeon: Albert Moya for Left hip infected wound :patient has a wound vac. continue meropenem and Dr. Alexander elliott on the case continue pain meds. # neuropathy, and depression : continue cymbalta and lyrica DVt px: SCDs , patient is going to OR today for I & D
--- NOTE | 2019-07-25 11:39 | PN ---
Progress Note, Physician History of Present Illness: patient post op wound washed and debrided cx send - Current Medication List Current Medications: Active Medications Acetaminophen (Tylenol -) 650 mg PO Q4H PRN PRN Reason: PAIN LEVEL 1-5 Duloxetine HCl (Cymbalta -) 30 mg PO BID [facility] Last Admin: 07/25/19 09:55 Dose: 30 mg Fentanyl (Sublimaze Injection -) 50 mcg IVPUSH [id number] PRN PRN Reason: PAIN-PACU ORDER X 4 DOSES ONLY Heparin Sodium (Porcine) (Heparin -) 5,000 unit SQ TID [facility] Last Admin: 07/25/19 05:43 Dose: 5,000 unit Sodium Chloride (Normal Saline -) 1,000 mls @ 75 mls/hr IV ASDIR [facility] Last Admin: 07/25/19 00:39 Dose: Not Given Meropenem 1 gm/ Dextrose 100 mls @ 200 mls/hr IVPB Q8H-IV [facility] Last Admin: 07/25/19 09:55 Dose: 200 mls/hr Vancomycin HCl 1,250 mg/ (Dextrose) 250 mls @ 166.667 mls/hr IVPB Q12H [facility]; Protocol Last Admin: 07/25/19 04:25 Dose: 166.667 mls/hr Ondansetron HCl (Zofran Injection) 4 mg IVPUSH Q6H PRN PRN Reason: NAUSEA AND/OR VOMITING Oxybutynin Chloride (Ditropan -) 5 mg PO TID [facility] Last Admin: 07/25/19 05:43 Dose: 5 mg Oxycodone HCl (Roxicodone -) 30 mg PO Q6H PRN PRN Reason: PAIN LEVEL 7 - 10 Last Admin: 07/25/19 08:40 Dose: 30 mg Oxycodone HCl (Oxycontin -) 20 mg PO BID [facility] Last Admin: 07/25/19 09:55 Dose: 20 mg Oxycodone HCl (Roxicodone -) 10 mg PO Q4H PRN PRN Reason: PAIN LEVEL 6-10 Stop: 07/25/19 18:20 Pantoprazole Sodium (Protonix -) 40 mg PO DAILY [facility] Last Admin: 07/25/19 09:55 Dose: 40 mg Pregabalin (Lyrica -) 100 mg PO TID [facility] Last Admin: 07/25/19 05:43 Dose: 100 mg Senna/Docusate Sodium (Pericolace -) 2 tablet PO BID [facility] Last Admin: 07/25/19 09:55 Dose: 2 tablet - Objective Vital Signs: Vital Signs Temperature 98.4 F 07/25/19 10:00 Pulse Rate 102 H 07/25/19 10:00 Respiratory Rate 18 07/25/19 10:00 Blood Pressure 130/91 07/25/19 10:00 O2 Sat by Pulse Oximetry (%) 100 07/24/19 22:00 Constitutional: Yes: No Distress, Calm Cardiovascular: Yes: S1, S2 Respiratory: Yes: Regular, CTA Bilaterally Gastrointestinal: Yes: Normal Bowel Sounds, Soft Musculoskeletal: Yes: WNL Extremities: Yes: Other Wound/Incision: Yes: Dressing Dry and Intact, Other Neurological: Yes: Alert, Oriented Psychiatric: Yes: Alert, Oriented Labs: CBC, BMP 07/25/19 06:50 07/25/19 06:50 INR, PTT INR 0.97 (0.83-1.09) 07/23/19 09:56 Assessment/Plan 64 year old female with Pmh of left total hip arthroplasty s/p washouts and wound vac due to chronic left wound ulcers, recurrent wound infections with resistant organisms, osteoarthritis, SLE, HTN, anxiety, overactive bladder who presented to the ED with worsening left hip pain and drainage. admitted for left hip wound infection s/p missed washout appointment left hip wound infection sle htn anxiety plan continue abx await for cx report rest as per the team
[2019-07-25] MEDS ORDERED: PT OWN MED DRAWER 7, Y5N ONE ×2 (11:54→13:34)
--- NOTE | 2019-07-25 13:03 | OP ---
DATE OF OPERATION: DATE OF DICTATION: 07/24/2019 PREOPERATIVE DIAGNOSIS: Chronic wound, left proximal lateral thigh. POSTOPERATIVE DIAGNOSIS: Chronic wound, left proximal lateral thigh. OPERATION PERFORMED: Washout, debridement, application of a left repeat wound vacuum assisted closure. ANESTHESIA: General. POSITION: Lateral decubitus position, left side up. INDICATIONS: This lady was treated for a long period of time with repeat wound VAC changes for the management of a massive wound to the proximal lateral thigh, which was infected and provided the complicating issue of heterotopic ossification with massive bone formation in the soft tissues and resultant fibro-osseous induration of the tissue bed. The aim was attempting to get this wound closed with secondary intention. Local flaps would mutilate this limb further. Patient's skin on the revision arthroplasty in the future. Wound flaps, in my opinion, would result in possible need for an amputation. The delayed primary closure that was performed about a month ago has resulted in excellent closure of the skin, subcutaneous tissues, but unfortunately, deep to this area, there is still an extensive cavity. Albeit markedly improved from what it was from the very beginning, the length of the cavity is approximately 10 cm, the depth about 8 cm, and the width 3 cm. Thoughts were to go ahead and explore the wound with a future repeat attempt at delayed primary closure, but because of the induration and the space, particularly proximally, and because of the nature of the tissue being fibrotic in nature, I elected to reseat a wound VAC after full debridement and removal of all fibrous tissues. Wound cultures were taken and sent to the lab for microscopy, culture, and sensitivity. The reason for the wound VAC is to stimulate granulation tissue and do this in a sequential manner and provide a repeat delayed primary closure attempt in approximately 5 days. OPERATION DETAILS: Patient correctly identified, brought to the operating room. Left lower extremity was prepped and draped in the routine manner with Betadine scrub solution, wiped off with alcohol. DuraPrep applied. The patient tolerated it well. The wound VAC was working well by the time the patient was extricated out of the operating room. MD OSVALDO Oconnor/[id number]
--- NOTE | 2019-07-25 13:26 | PN ---
Progress Note (short form) - Note Progress Note: 64F s/p I&D left hip wound with application wound vac POD #0. Superficial wound contamination; superficial wound slough successfully debrided in OR. No purulence seen. -Pain control. -DVT PPx: -Chemical: ASA 81mg PO qD. -Mechanical: SOUTH's, SCD's. -Incentive spirometry q15 min. -PT/OT/Rehab, OOB. -WBAT RLE. -f/u post-op TOV: 8 hours max. -Maintain left hip wound vac. -Diet as tolerated. -Care per medical hospitalist & ID teams. -f/u pain management recommendations: Dr. Elliot Garcia. -Plan to return to OR on Monday07/29/2019 for repeat I&D with re-application of wound vac VS primary wound closure. -Will follow. Albert Moya MD (Orthopaedic Surgery).
--- NOTE | 2019-07-25 13:45 | PN ---
Progress Note (short form) - Note Progress Note: POD1 s/p I and D left hip under GA. Tolerated procedure well, no anesthetic issues/complications noted.
--- NOTE | 2019-07-25 14:29 | PN ---
Physical Exam: SUBJECTIVE: Patient seen and examined in the morning. No acute events overnight , today is POD #1. Patient complains of chronic pain and wants more pain medication. No complaints of chest pain, shortness of breath, nausea, vomiting, diarrhea, fever, or chills. OBJECTIVE: Vital Signs Period Temp Pulse Resp BP Sys/Vargas Pulse Ox Last 24 Hr 97.4 F-98.6 F 74-102 11-20 127-177/51-91 97-100 GENERAL: The patient is awake, alert, and fully oriented, in no acute distress. HEAD: Normal with no signs of trauma. EYES: PERRL, extraocular movements intact, sclera anicteric, conjunctiva clear. No ptosis. NECK: Trachea midline, full range of motion, supple. LUNGS: Breath sounds equal, clear to auscultation bilaterally, no wheezes. HEART: Regular rate and rhythm, S1, S2 without murmur, rub or gallop. ABDOMEN: Soft, nontender, nondistended, normoactive bowel sounds. EXTREMITIES: 2+ pulses, warm, well-perfused, no edema. Patient has wound vac attached to the left hip. Draining fluid. NEUROLOGICAL: Cranial nerves II through XII grossly intact. Laboratory Results - last 24 hr 07/25/19 07/25/19 06:50 06:50 WBC 7.3 RBC 4.63 Hgb 10.8 Hct 33.7 MCV 72.6 L MCH 23.4 L MCHC 32.2 RDW 17.7 H Plt Count 398 MPV 7.3 L Absolute Neuts (auto) 6.4 Neutrophils % 88.5 H D Lymphocytes % 8.3 D Monocytes % 2.6 L Eosinophils % 0.4 D Basophils % 0.2 Nucleated RBC % 0 Sodium 137 Potassium 4.3 Chloride 105 Carbon Dioxide 27 Anion Gap 5 L BUN 14.6 Creatinine 1.0 Est GFR (CKD-EPI)AfAm 68.95 Est GFR (CKD-EPI)NonAf 59.49 Random Glucose 114 H Calcium 8.9 Total Bilirubin 0.2 AST 12 L ALT 13 Alkaline Phosphatase 125 H Total Protein 7.8 Albumin 3.5 Active Medications Generic Name Dose Route Start Last Admin Trade Name Freq PRN Reason Stop Dose Admin Acetaminophen 650 mg 07/23/19 06:20 Tylenol - PO Q4H PRN PAIN LEVEL 1-5 Duloxetine HCl 30 mg 07/23/19 22:00 07/25/19 09:55 Cymbalta - PO 30 mg BID ELKE Administration Fentanyl 50 mcg 07/24/19 18:21 Sublimaze Injection - IVPUSH [id number] PRN PAIN-PACU ORDER X 4 DOSES ONLY Heparin Sodium (Porcine) 5,000 unit 07/23/19 06:00 07/25/19 13:48 Heparin - SQ 5,000 unit TID ELKE Administration Sodium Chloride 1,000 mls @ 75 mls/hr 07/23/19 00:15 07/25/19 00:39 Normal Saline - IV Not Given ASDIR ELKE Meropenem 1 gm/ Dextrose 100 mls @ 200 mls/hr 07/23/19 18:00 07/25/19 09:55 IVPB 200 mls/hr Q8H-IV ELKE Administration Vancomycin HCl 1,250 mg/ 250 mls @ 166.667 mls/hr 07/23/19 14:30 07/25/19 13: 48 Dextrose IVPB 166.667 mls/hr Q12H ELKE Administration Protocol Ondansetron HCl 4 mg 07/24/19 18:21 Zofran Injection IVPUSH Q6H PRN NAUSEA AND/OR VOMITING Oxybutynin Chloride 5 mg 07/23/19 14:00 07/25/19 13:50 Ditropan - PO 5 mg TID ELKE Administration Oxycodone HCl 30 mg 07/23/19 16:59 07/25/19 08:40 Roxicodone - PO 30 mg Q6H PRN Administration PAIN LEVEL 7 - 10 Oxycodone HCl 20 mg 07/24/19 13:30 07/25/19 09:55 Oxycontin - PO 20 mg BID ELKE Administration Oxycodone HCl 10 mg 07/24/19 18:21 Roxicodone - PO 07/25/19 18:20 Q4H PRN PAIN LEVEL 6-10 Pantoprazole Sodium 40 mg 07/24/19 10:00 07/25/19 09:55 Protonix - PO 40 mg DAILY ELKE Administration Pregabalin 100 mg 07/23/19 14:00 07/25/19 13:47 Lyrica - PO 100 mg TID ELKE Administration Senna/Docusate Sodium 2 tablet 07/23/19 22:00 07/25/19 09:55 Pericolace - PO 2 tablet BID ELKE Administration ASSESSMENT/PLAN: 64 F with PMH of left total hip arthorplasty s/p washouts and wound vac with multiple infections with multiple drug resistant bacteria who presents today with worsening drainage and pain in her hip after missing washout appointment. 1)Hip Drainage -Meronpenem 1 gram IV Q8H -Vancomycin 1250 mg IV Q12H. Vanc trough before next dose @ night. -Patient had washout completed. Will go for attempted closure of surgical scar on Monday. -F/U culture from OR -Ortho consulted, appreciate recs -ID consulted, appreciate recs 2)Chronic pain -Oxycontin 20 mg BID -Oxycodone 30 mg Q6H PRN -Pregabalin 100 mg PO TID -Duloxetine 30 mg PO BID -Pain Management consulted, appreciate recs DVT: SCDs F:NS @ 75 ml/hr E:Monitor BMP N:Regular Diet after procedure. Dispo: Admitted to medicine Visit type - Emergency Visit Emergency Visit: Yes ED Registration Date: 07/22/19 Care time: The patient presented to the Emergency Department on the above date and was hospitalized for further evaluation of their emergent condition. - New Patient This patient is new to me today: No - Critical Care Critical Care patient: No ATTENDING PHYSICIAN STATEMENT I saw and evaluated the patient. I reviewed the resident's note and discussed the case with the resident. I agree with the resident's findings and plan as documented. SUBJECTIVE: OBJECTIVE: ASSESSMENT AND PLAN:
[2019-07-26] MEDS ORDERED: MEROPENEM 1 GM VIAL (RESTRICTED TO ID) IVPB ONE ×3 (00:37→18:00)
[2019-07-26] MEDS ORDERED: DEXTROSE 5%-WATER 100 ML IVPB ONE ×3 (00:38→18:00)
[2019-07-26] MEDS: MEROPENEM 1 GM in DEXTROSE 5%-WATER 100 ML IVPB SCH ×3 (01:05→18:05)
[2019-07-26] MEDS: SODIUM CHLORIDE 1,000 ML IV SCH (02:46)
[2019-07-26] MEDS: VANCOMYCIN HCL 1,250 MG in DEXTROSE 5%-WATER - 250 ML IVPB SCH (02:46)
[2019-07-26] MEDS: oxyCODONE HCL 5 MG TABLET PO PRN ×3 (04:16→21:53)
[2019-07-26] MEDS: OXYBUTYNIN CHLORIDE 5 MG TABLET PO SCH ×3 (05:55→21:54)
[2019-07-26] MEDS: PREGABALIN 100 MG CAPSULE PO SCH ×3 (05:55→21:54)
[2019-07-26] MEDS: HEPARIN NA (PORCINE) 5,000 UNITS/ML 1ML VIAL SQ SCH ×3 (05:57→21:54)
[2019-07-26 08:07] LABS: BASO % 1.1 % (0-2.0); EOS % 7.3 % (0-4.5); HEMOGLOBIN 10.4 GM/dL (10.7-15.3); LYMPH % 19.1 % (8-40); MCH 23.6 pg (25.7-33.7); MCHC 32.5 g/dl (32.0-36.0); MEAN CELL VOLUME 72.7 fl (80-96); MEAN PLT VOLUME 7.2 fl (7.5-11.1); MONO % 5.8 % (3.8-10.2); NEUT % 66.7 % (42.8-82.8); PLATELET COUNT 348 K/MM3 (134-434); RBC 4.41 M/mm3 (3.60-5.2); RDW 18.2 % (11.6-15.6); WHITE BLOOD COUNT 8.6 K/mm3 (4.0-10.0)
[2019-07-26 08:34] LABS: BLOOD UREA NITROGEN 17.4 mg/dL (7-18); CALCIUM 8.9 mg/dL (8.5-10.1); CREATININE 0.9 mg/dL (0.55-1.3); POTASSIUM 3.6 mmol/L (3.5-5.1)
--- NOTE | 2019-07-26 08:56 | PN ---
Teaching Attending Note Name of Resident: Martin Khan ATTENDING PHYSICIAN STATEMENT I saw and evaluated the patient. I reviewed the resident's note and discussed the case with the resident. I agree with the resident's findings and plan as documented. SUBJECTIVE: paient is comfortable with no acute distress. Vital Signs Temperature 98.4 F 07/25/19 20:08 Pulse Rate 94 H 07/25/19 20:08 Respiratory Rate 22 H 07/25/19 22:28 Blood Pressure 159/84 07/25/19 20:08 O2 Sat by Pulse Oximetry (%) 100 07/24/19 22:00 GENERAL: The patient is awake, alert, and fully oriented, in no acute distress. HEAD: Normal with no signs of trauma. EYES: PERRL, extraocular movements intact, sclera anicteric, conjunctiva clear. ENT: Ears normal, oropharynx clear without exudates, moist mucous membranes. NECK: Trachea midline, full range of motion, supple. LUNGS: Breath sounds equal, clear to auscultation bilaterally, no wheezes, no crackles, no accessory muscle use. HEART: Regular rate and rhythm, S1, S2 without murmur, rub or gallop. ABDOMEN: Soft, nontender, nondistended, normoactive bowel sounds, no guarding, no rebound, no hepatosplenomegaly, no masses. EXTREMITIES: 2+ pulses, warm, well-perfused, L LE is shorter than R. L hip with a wound vac. no erythema. tenderness around the wound. NEUROLOGICAL: Cranial nerves II through XII grossly intact. Normal speech, gait not observed. PSYCH: Normal mood, normal affect. SKIN: Warm, dry, normal turgor, no rashes or lesions noted CBCD WBC 8.6 K/mm3 (4.0-10.0) 07/26/19 07:28 RBC 4.41 M/mm3 (3.60-5.2) 07/26/19 07:28 Hgb 10.4 GM/dL (10.7-15.3) L 07/26/19 07:28 Hct 32.0 % (32.4-45.2) L 07/26/19 07:28 MCV 72.7 fl (80-96) L 07/26/19 07:28 MCHC 32.5 g/dl (32.0-36.0) 07/26/19 07:28 RDW 18.2 % (11.6-15.6) H 07/26/19 07:28 Plt Count 348 K/MM3 (134-434) 07/26/19 07:28 MPV 7.2 fl (7.5-11.1) L 07/26/19 07:28 CMP Sodium 139 mmol/L (136-145) 07/26/19 07:28 Potassium 3.6 mmol/L (3.5-5.1) 07/26/19 07:28 Chloride 107 mmol/L (98-107) 07/26/19 07:28 Carbon Dioxide 26 mmol/L (21-32) 07/26/19 07:28 Anion Gap 5 MMOL/L (8-16) L 07/26/19 07:28 BUN 17.4 mg/dL (7-18) 07/26/19 07:28 Creatinine 0.9 mg/dL (0.55-1.3) 07/26/19 07:28 Random Glucose 120 mg/dL (74-106) H 07/26/19 07:28 Calcium 8.9 mg/dL (8.5-10.1) 07/26/19 07:28 Total Bilirubin 0.2 mg/dL (0.2-1) 07/25/19 06:50 AST 12 U/L (15-37) L 07/25/19 06:50 ALT 13 U/L (13-61) 07/25/19 06:50 Alkaline Phosphatase 125 U/L (45-117) H 07/25/19 06:50 Total Protein 7.8 g/dl (6.4-8.2) 07/25/19 06:50 Albumin 3.5 g/dl (3.4-5.0) 07/25/19 06:50 Current Medications Generic Name Dose Route Start Last Admin Trade Name Freq PRN Reason Stop Dose Admin Acetaminophen 650 mg 07/23/19 06:20 Tylenol - PO Q4H PRN PAIN LEVEL 1-5 Duloxetine HCl 30 mg 07/23/19 22:00 07/25/19 21:23 Cymbalta - PO 30 mg BID ELKE Administration Fentanyl 50 mcg 07/24/19 18:21 Sublimaze Injection - IVPUSH [id number] PRN PAIN-PACU ORDER X 4 DOSES ONLY Heparin Sodium (Porcine) 5,000 unit 07/23/19 06:00 07/26/19 05:57 Heparin - SQ 5,000 unit TID ELKE Administration Sodium Chloride 1,000 mls @ 75 mls/hr 07/23/19 00:15 07/26/19 02:46 Normal Saline - IV 75 mls/hr ASDIR ELKE Administration Meropenem 1 gm/ Dextrose 100 mls @ 200 mls/hr 07/23/19 18:00 07/26/19 01:05 IVPB 200 mls/hr Q8H-IV ELKE Administration Vancomycin HCl 1,250 mg/ 250 mls @ 166.667 mls/hr 07/23/19 14:30 07/26/19 02: 46 Dextrose IVPB 166.667 mls/hr Q12H ELKE Administration Protocol Ondansetron HCl 4 mg 07/24/19 18:21 Zofran Injection IVPUSH Q6H PRN NAUSEA AND/OR VOMITING Oxybutynin Chloride 5 mg 07/23/19 14:00 07/26/19 05:55 Ditropan - PO 5 mg TID ELKE Administration Oxycodone HCl 30 mg 07/23/19 16:59 07/26/19 04:16 Roxicodone - PO 30 mg Q6H PRN Administration PAIN LEVEL 7 - 10 Oxycodone HCl 20 mg 07/24/19 13:30 07/25/19 21:23 Oxycontin - PO 20 mg BID ELKE Administration Pantoprazole Sodium 40 mg 07/24/19 10:00 07/25/19 09:55 Protonix - PO 40 mg DAILY ELKE Administration Pregabalin 100 mg 07/23/19 14:00 07/26/19 05:55 Lyrica - PO 100 mg TID ELKE Administration Senna/Docusate Sodium 2 tablet 07/23/19 22:00 07/25/19 21:22 Pericolace - PO 2 tablet BID ELKE Administration Home Medications Medication Instructions Recorded Omeprazole 40 mg PO DAILY 08/24/18 Oxybutynin Chloride 5 mg PO TID 08/24/18 Duloxetine HCl [Cymbalta] 30 mg PO BID 15 Days #30 capsule. 03/19/19 Pregabalin [Lyrica] 100 mg PO TID #30 capsule MDD 3 03/19/19 Oxycodone HCl 30 mg PO Q4H PRN 3 Days #10 tablet 04/09/19 MDD 6 Sennosides/Docusate Sodium 2 tablet PO BID tablet 05/01/19 [Pericolace -] Fluconazole 200 mg PO DAILY 07/23/19 Oxycodone HCl [Oxycodone HCl ER] 80 mg PO TID 07/23/19 Microbiology 07/22/19 21:41 Thigh - Left Gram Stain - Final 07/22/19 21:41 Thigh - Left Wound Culture - Preliminary Staphylococcus Coagulase Neg 07/23/19 05:00 Blood - Peripheral Venous Blood Culture - Preliminary NO GROWTH OBTAINED AFTER 24 HOURS, INCUBATION TO CONTINUE FOR 4 DAYS. 07/23/19 05:00 Blood - Peripheral Venous Blood Culture - Preliminary NO GROWTH OBTAINED AFTER 24 HOURS, INCUBATION TO CONTINUE FOR 4 DAYS. 07/22/19 22:10 Blood - Peripheral Venous Blood Culture - Preliminary NO GROWTH OBTAINED AFTER 24 HOURS, INCUBATION TO CONTINUE FOR 4 DAYS. 07/22/19 22:10 Blood - Peripheral Venous Blood Culture - Preliminary NO GROWTH OBTAINED AFTER 24 HOURS, INCUBATION TO CONTINUE FOR 4 DAYS. Microbiology 07/23/19 05:00 Blood Culture - Preliminary Blood - Peripheral Venous NO GROWTH OBTAINED AFTER 72 HOURS, INCUBATION TO CONTINUE FOR 2 DAYS. 07/23/19 05:00 Blood Culture - Preliminary Blood - Peripheral Venous NO GROWTH OBTAINED AFTER 72 HOURS, INCUBATION TO CONTINUE FOR 2 DAYS. 07/22/19 22:10 Blood Culture - Preliminary Blood - Peripheral Venous NO GROWTH OBTAINED AFTER 72 HOURS, INCUBATION TO CONTINUE FOR 2 DAYS. 07/22/19 22:10 Blood Culture - Preliminary Blood - Peripheral Venous NO GROWTH OBTAINED AFTER 72 HOURS, INCUBATION TO CONTINUE FOR 2 DAYS. 07/24/19 20:20 Gram Stain - Final Hip - Left 07/22/19 21:41 Gram Stain - Final Thigh - Left Wound Culture - Final Diphtheroid/Corynebacterium ASSESSMENT AND PLAN: Patient is a 64 y/o female with PMhx of L hip replacement in 2017 with a prolonged complicated course with wound infections, I&D, vac, Abx courses, and hospitalizations. She also has depression , anxiety , opioids dependence , and HTN who presented with drainage from L hip # POD #2 s/p I&D by Surgeon: Albert Moya for Left hip infected wound :patient has a wound vac. continue meropenem and Dr. Alexander elliott on the case continue pain meds. Patient is going for primary closure possible on Monday as per # neuropathy, and depression : continue cymbalta and lyrica DVt px: SCDs , heparin
[2019-07-26] MEDS: DULoxetine HCL 30 MG CAPSULE.DR PO SCH ×2 (09:51→21:54)
[2019-07-26] MEDS: PANTOPRAZOLE 40 MG TABLET (FP) PO SCH (09:51)
[2019-07-26] MEDS: SENNOSIDES/DOCUSATE COMBO (SENNA PLUS) TABLET (UD) PO SCH ×2 (09:51→21:54)
[2019-07-26] MEDS: oxyCODONE HCL 20 MG SUSTAINED ACTING TABLET PO SCH ×2 (09:51→21:54)
--- NOTE | 2019-07-26 11:55 | PN ---
Progress Note, Physician History of Present Illness: stable no new issues - Current Medication List Current Medications: Active Medications Acetaminophen (Tylenol -) 650 mg PO Q4H PRN PRN Reason: PAIN LEVEL 1-5 Duloxetine HCl (Cymbalta -) 30 mg PO BID [facility] Last Admin: 07/26/19 09:51 Dose: 30 mg Fentanyl (Sublimaze Injection -) 50 mcg IVPUSH [id number] PRN PRN Reason: PAIN-PACU ORDER X 4 DOSES ONLY Heparin Sodium (Porcine) (Heparin -) 5,000 unit SQ TID [facility] Last Admin: 07/26/19 05:57 Dose: 5,000 unit Sodium Chloride (Normal Saline -) 1,000 mls @ 75 mls/hr IV ASDIR [facility] Last Admin: 07/26/19 02:46 Dose: 75 mls/hr Meropenem 1 gm/ Dextrose 100 mls @ 200 mls/hr IVPB Q8H-IV [facility] Last Admin: 07/26/19 01:05 Dose: 200 mls/hr Vancomycin HCl 1,250 mg/ (Dextrose) 250 mls @ 166.667 mls/hr IVPB Q12H [facility]; Protocol Last Admin: 07/26/19 02:46 Dose: 166.667 mls/hr Ondansetron HCl (Zofran Injection) 4 mg IVPUSH Q6H PRN PRN Reason: NAUSEA AND/OR VOMITING Oxybutynin Chloride (Ditropan -) 5 mg PO TID [facility] Last Admin: 07/26/19 05:55 Dose: 5 mg Oxycodone HCl (Roxicodone -) 30 mg PO Q6H PRN PRN Reason: PAIN LEVEL 7 - 10 Last Admin: 07/26/19 04:16 Dose: 30 mg Oxycodone HCl (Oxycontin -) 20 mg PO BID [facility] Last Admin: 07/26/19 09:51 Dose: 20 mg Pantoprazole Sodium (Protonix -) 40 mg PO DAILY [facility] Last Admin: 07/26/19 09:51 Dose: 40 mg Pregabalin (Lyrica -) 100 mg PO TID [facility] Last Admin: 07/26/19 05:55 Dose: 100 mg Senna/Docusate Sodium (Pericolace -) 2 tablet PO BID [facility] Last Admin: 07/26/19 09:51 Dose: 2 tablet - Objective Vital Signs: Vital Signs Temperature 98.4 F 07/25/19 20:08 Pulse Rate 94 H 07/25/19 20:08 Respiratory Rate 22 H 07/25/19 22:28 Blood Pressure 159/84 07/25/19 20:08 O2 Sat by Pulse Oximetry (%) 100 07/24/19 22:00 Constitutional: Yes: No Distress, Calm Cardiovascular: Yes: S1, S2 Respiratory: Yes: Regular, CTA Bilaterally Gastrointestinal: Yes: Normal Bowel Sounds, Soft Musculoskeletal: Yes: WNL Extremities: Yes: Other Wound/Incision: Yes: Other (wound vac in place) Neurological: Yes: Alert, Oriented Psychiatric: Yes: Alert, Oriented Labs: CBC, BMP 07/26/19 07:28 07/26/19 07:28 INR, PTT INR 0.97 (0.83-1.09) 07/23/19 09:56 Assessment/Plan 64 year old female with Pmh of left total hip arthroplasty s/p washouts and wound vac due to chronic left wound ulcers, recurrent wound infections with resistant organisms, osteoarthritis, SLE, HTN, anxiety, overactive bladder who presented to the ED with worsening left hip pain and drainage. admitted for left hip wound infection s/p missed washout appointment left hip wound infection sle htn anxiety plan will stop vanco if wound cx remain negative will stop javier tomorrow continue current mgmt wound care
--- NOTE | 2019-07-26 14:25 | PN ---
Physical Exam: SUBJECTIVE: Patient seen and examined in the morning. Patient lost IV access over night, but no acute events overnight. Patient was tired in the morning, but no complaints of chest pain, shortness of breath, abdominal pain, nausea, vomiting, diarrhea, fever, chills. OBJECTIVE: Vital Signs Period Temp Pulse Resp BP Sys/Vargas Pulse Ox Last 24 Hr 98 F-98.4 F 94-102 18-22 159-179/84-91 GENERAL: The patient is tired and in no acute distress. HEAD: Normal with no signs of trauma. LUNGS: Breath sounds equal, clear to auscultation bilaterally, no wheezes. HEART: Regular rate and rhythm, S1, S2 without murmur, rub or gallop. ABDOMEN: Soft, nontender, nondistended, normoactive bowel sounds. EXTREMITIES: 2+ pulses, warm, well-perfused, no edema. Wound is being drained by wound vac. Dressing in place, no leakage. SKIN: Warm, dry, normal turgor, no rashes or lesions noted Laboratory Results - last 24 hr CBC, BMP 07/26/19 07:28 07/26/19 07:28 Active Medications Generic Name Dose Route Start Last Admin Trade Name Freq PRN Reason Stop Dose Admin Acetaminophen 650 mg 07/23/19 06:20 Tylenol - PO Q4H PRN PAIN LEVEL 1-5 Duloxetine HCl 30 mg 07/23/19 22:00 07/26/19 09:51 Cymbalta - PO 30 mg BID ELKE Administration Fentanyl 50 mcg 07/24/19 18:21 Sublimaze Injection - IVPUSH [id number] PRN PAIN-PACU ORDER X 4 DOSES ONLY Heparin Sodium (Porcine) 5,000 unit 07/23/19 06:00 07/26/19 14:17 Heparin - SQ 5,000 unit TID ELKE Administration Sodium Chloride 1,000 mls @ 75 mls/hr 07/23/19 00:15 07/26/19 02:46 Normal Saline - IV 75 mls/hr ASDIR ELKE Administration Meropenem 1 gm/ Dextrose 100 mls @ 200 mls/hr 07/23/19 18:00 07/26/19 12:16 IVPB 200 mls/hr Q8H-IV ELKE Administration Ondansetron HCl 4 mg 07/24/19 18:21 Zofran Injection IVPUSH Q6H PRN NAUSEA AND/OR VOMITING Oxybutynin Chloride 5 mg 07/23/19 14:00 07/26/19 14:16 Ditropan - PO 5 mg TID ELKE Administration Oxycodone HCl 30 mg 07/23/19 16:59 07/26/19 14:17 Roxicodone - PO 30 mg Q6H PRN Administration PAIN LEVEL 7 - 10 Oxycodone HCl 20 mg 07/24/19 13:30 07/26/19 09:51 Oxycontin - PO 20 mg BID ELKE Administration Pantoprazole Sodium 40 mg 07/24/19 10:00 07/26/19 09:51 Protonix - PO 40 mg DAILY ELKE Administration Pregabalin 100 mg 07/23/19 14:00 07/26/19 14:17 Lyrica - PO 100 mg TID ELKE Administration Senna/Docusate Sodium 2 tablet 07/23/19 22:00 07/26/19 09:51 Pericolace - PO 2 tablet BID ELKE Administration ASSESSMENT/PLAN: 64 F with PMH of left total hip arthorplasty s/p washouts and wound vac with 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 1)Hip Drainage -Meronpenem 1 gram IV Q8H. Pending cultures may discontinue meropenem tomorrow. -Vancomycin discontinued -Patient had washout completed. Will go for attempted closure of surgical scar on Monday. -F/U culture from OR -Ortho consulted, appreciate recs -ID consulted, appreciate recs 2)Chronic pain -Oxycontin 20 mg BID -Oxycodone 30 mg Q6H PRN -Pregabalin 100 mg PO TID -Duloxetine 30 mg PO BID -Pain Management consulted, appreciate recs DVT: SCDs F:NS @ 75 ml/hr E:Monitor BMP N:Regular Diet after procedure. Dispo: Admitted to medicine Visit type - Emergency Visit Emergency Visit: Yes ED Registration Date: 07/22/19 Care time: The patient presented to the Emergency Department on the above date and was hospitalized for further evaluation of their emergent condition. - New Patient This patient is new to me today: No - Critical Care Critical Care patient: No ATTENDING PHYSICIAN STATEMENT I saw and evaluated the patient. I reviewed the resident's note and discussed the case with the resident. I agree with the resident's findings and plan as documented. SUBJECTIVE: OBJECTIVE: ASSESSMENT AND PLAN:
--- NOTE | 2019-07-26 18:28 | PATH ---
Surgical Pathology Report Patient Name: CONNOR SON Med. Rec. #: [id number] /Age/Gender: 1955 (Age: 64) / F Account: [id number] Location: [facility] MED/SURG Taken: 07/24/2019 Received: 07/25/2019 Reported: 07/26/2019 Physicians: Gelacio Moya M.D. Specimen(s) Received DEBRIDEMENT TISSUE LEFT HIP Clinical History Infected left hip wound Final Diagnosis DEBRIDEMENT TISSUE, LEFT HIP, EXCISION: PORTIONS OF GRANULATION TISSUE WITH ACUTE INFLAMMATORY AND FIBRINOUS EXUDATE. Electronically Signed Elaine Benítez M.D. Gross Description Received in formalin labeled "debridement tissue left hip," is a 2.8 x 2.4 x 0.4 cm aggregate of quarles-brown portions of soft tissue. [employer] sections are submitted in one cassette. DL/07/25/2019 saudi07/25/2019
[2019-07-27] MEDS ORDERED: DEXTROSE 5%-WATER 100 ML IVPB ONE ×3 (01:12→16:57)
[2019-07-27] MEDS ORDERED: MEROPENEM 1 GM VIAL (RESTRICTED TO ID) IVPB ONE ×3 (01:12→16:56)
[2019-07-27] MEDS: SODIUM CHLORIDE 1,000 ML IV SCH (01:13)
[2019-07-27] MEDS: MEROPENEM 1 GM in DEXTROSE 5%-WATER 100 ML IVPB SCH ×3 (01:13→17:47)
[2019-07-27] MEDS: OXYBUTYNIN CHLORIDE 5 MG TABLET PO SCH ×3 (06:41→21:13)
[2019-07-27] MEDS: oxyCODONE HCL 5 MG TABLET PO PRN ×3 (06:41→19:11)
[2019-07-27] MEDS: PREGABALIN 100 MG CAPSULE PO SCH ×3 (06:41→21:13)
[2019-07-27] MEDS: HEPARIN NA (PORCINE) 5,000 UNITS/ML 1ML VIAL SQ SCH ×3 (06:41→21:13)
[2019-07-27 08:58] LABS: EOS % 9.5 % (0-4.5); HEMATOCRIT 33.8 % (32.4-45.2); HEMOGLOBIN 10.8 GM/dL (10.7-15.3); LYMPH % 20.8 % (8-40); MCH 23.5 pg (25.7-33.7); MCHC 31.9 g/dl (32.0-36.0); MEAN CELL VOLUME 73.7 fl (80-96); MEAN PLT VOLUME 7.3 fl (7.5-11.1); MONO % 4.9 % (3.8-10.2); NEUT % 63.8 % (42.8-82.8); PLATELET COUNT 373 K/MM3 (134-434); RBC 4.59 M/mm3 (3.60-5.2); RDW 18.1 % (11.6-15.6); WHITE BLOOD COUNT 8.2 K/mm3 (4.0-10.0)
[2019-07-27 09:17] LABS: CALCIUM 9.1 mg/dL (8.5-10.1); CREATININE 0.9 mg/dL (0.55-1.3); POTASSIUM 3.9 mmol/L (3.5-5.1)
[2019-07-27] MEDS: oxyCODONE HCL 20 MG SUSTAINED ACTING TABLET PO SCH ×2 (10:25→21:13)
[2019-07-27] MEDS: SENNOSIDES/DOCUSATE COMBO (SENNA PLUS) TABLET (UD) PO SCH ×2 (10:26→21:16)
[2019-07-27] MEDS: DULoxetine HCL 30 MG CAPSULE.DR PO SCH ×2 (10:26→21:13)
[2019-07-27] MEDS: PANTOPRAZOLE 40 MG TABLET (FP) PO SCH (10:26)
--- NOTE | 2019-07-27 17:22 | PN ---
Physical Exam: SUBJECTIVE: Patient seen and examined. She is lethargic, arousable, but falling asleep while conversing. She says she needs more pain medication - at home she uses OxyContin 80 mg tid and Roxicodone 30 mg q4h as needed. OBJECTIVE: Vital Signs Period Temp Pulse Resp BP Sys/Vargas Pulse Ox Last 24 Hr 98.1 F-99.1 F 65-97 18-20 118-146/67-77 98 GENERAL: The patient is lethargic, in no acute distress. LUNGS: Breath sounds equal, clear to auscultation bilaterally, no wheezes, no crackles, no accessory muscle use. HEART: Regular rate and rhythm, S1, S2 without murmur, rub or gallop. ABDOMEN: Soft, nontender, nondistended, normoactive bowel sounds, no guarding, no rebound, no hepatosplenomegaly, no masses. EXTREMITIES: 2+ pulses, warm, well-perfused, no edema. VAC on left thigh. Laboratory Results - last 24 hr 07/27/19 07/27/19 08:02 08:02 WBC 8.2 RBC 4.59 Hgb 10.8 Hct 33.8 MCV 73.7 L MCH 23.5 L MCHC 31.9 L RDW 18.1 H Plt Count 373 MPV 7.3 L Absolute Neuts (auto) 5.2 Neutrophils % 63.8 Lymphocytes % 20.8 Monocytes % 4.9 Eosinophils % 9.5 H Basophils % 1.0 Nucleated RBC % 0 Sodium 139 Potassium 3.9 Chloride 107 Carbon Dioxide 28 Anion Gap 4 L BUN 19.0 H Creatinine 0.9 Est GFR (CKD-EPI)AfAm 78.32 Est GFR (CKD-EPI)NonAf 67.57 Random Glucose 85 Calcium 9.1 Active Medications Generic Name Dose Route Start Last Admin Trade Name Freq PRN Reason Stop Dose Admin Acetaminophen 650 mg 07/23/19 06:20 Tylenol - PO Q4H PRN PAIN LEVEL 1-5 Duloxetine HCl 30 mg 07/23/19 22:00 07/27/19 10:26 Cymbalta - PO 30 mg BID ELKE Administration Fentanyl 50 mcg 07/24/19 18:21 Sublimaze Injection - IVPUSH [id number] PRN PAIN-PACU ORDER X 4 DOSES ONLY Heparin Sodium (Porcine) 5,000 unit 07/23/19 06:00 07/27/19 13:15 Heparin - SQ 5,000 unit TID [facility]KE Administration Sodium Chloride 1,000 mls @ 75 mls/hr 07/23/19 00:15 07/27/19 01:13 Normal Saline - IV 75 mls/hr ASDIR [facility] Administration Meropenem 1 gm/ Dextrose 100 mls @ 200 mls/hr 07/23/19 18:00 07/27/19 10:26 IVPB 200 mls/hr Q8H-IV [facility] Administration Ondansetron HCl 4 mg 07/24/19 18:21 Zofran Injection IVPUSH Q6H PRN NAUSEA AND/OR VOMITING Oxybutynin Chloride 5 mg 07/23/19 14:00 07/27/19 13:15 Ditropan - PO 5 mg TID [facility] Administration Oxycodone HCl 30 mg 07/23/19 16:59 07/27/19 13:15 Roxicodone - PO 30 mg Q6H PRN Administration PAIN LEVEL 7 - 10 Oxycodone HCl 20 mg 07/24/19 13:30 07/27/19 10:25 Oxycontin - PO 20 mg BID [facility] Administration Pantoprazole Sodium 40 mg 07/24/19 10:00 07/27/19 10:26 Protonix - PO 40 mg DAILY [facility] Administration Pregabalin 100 mg 07/23/19 14:00 07/27/19 13:15 Lyrica - PO 100 mg TID [facility]KE Administration Senna/Docusate Sodium 2 tablet 07/23/19 22:00 07/27/19 10:26 Pericolace - PO 2 tablet BID [facility]KE Administration ASSESSMENT/PLAN: This is a 64 year old woman with a history of HTN, depression, anxiety, chronic back pain, urinary incontinence, left total hip replacement, chronic left hip wound who presented to the ED with worsening pain in her left hip and drainage from the left thigh wound. 1. 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 HTN - On no medication 3. Depression with anxiety - Continue Cymbalta 4. Anemia secondary to chronic illness - Hemoglobin is stable 5. Urinary incontinence - Continue Ditropan 6. Chronic back and left hip pain - Continue Lyrica, Cymbalta, OxyContin, oxycodone as needed Visit type - Emergency Visit Emergency Visit: Yes ED Registration Date: 07/22/19 Care time: The patient presented to the Emergency Department on the above date and was hospitalized for further evaluation of their emergent condition. - New Patient This patient is new to me today: Yes Date on this admission: 07/27/19 - Critical Care Critical Care patient: No - Discharge Referral Referred to [facility] Med P.C.: No
--- NOTE | 2019-07-27 20:10 | PN ---
Progress Note, Physician History of Present Illness: Pt c/o pain in back. Otherwise no specific complaints. - Current Medication List Current Medications: Active Medications Acetaminophen (Tylenol -) 650 mg PO Q4H PRN PRN Reason: PAIN LEVEL 1-5 Duloxetine HCl (Cymbalta -) 30 mg PO BID [facility] Last Admin: 07/27/19 10:26 Dose: 30 mg Fentanyl (Sublimaze Injection -) 50 mcg IVPUSH [id number] PRN PRN Reason: PAIN-PACU ORDER X 4 DOSES ONLY Heparin Sodium (Porcine) (Heparin -) 5,000 unit SQ TID [facility] Last Admin: 07/27/19 13:15 Dose: 5,000 unit Sodium Chloride (Normal Saline -) 1,000 mls @ 75 mls/hr IV ASDIR [facility] Last Admin: 07/27/19 01:13 Dose: 75 mls/hr Meropenem 1 gm/ Dextrose 100 mls @ 200 mls/hr IVPB Q8H-IV [facility] Last Admin: 07/27/19 17:47 Dose: 200 mls/hr Ondansetron HCl (Zofran Injection) 4 mg IVPUSH Q6H PRN PRN Reason: NAUSEA AND/OR VOMITING Oxybutynin Chloride (Ditropan -) 5 mg PO TID [facility] Last Admin: 07/27/19 13:15 Dose: 5 mg Oxycodone HCl (Roxicodone -) 30 mg PO Q6H PRN PRN Reason: PAIN LEVEL 7 - 10 Last Admin: 07/27/19 19:11 Dose: 30 mg Oxycodone HCl (Oxycontin -) 20 mg PO BID [facility] Last Admin: 07/27/19 10:25 Dose: 20 mg Pantoprazole Sodium (Protonix -) 40 mg PO DAILY [facility] Last Admin: 07/27/19 10:26 Dose: 40 mg Pregabalin (Lyrica -) 100 mg PO TID [facility] Last Admin: 07/27/19 13:15 Dose: 100 mg Senna/Docusate Sodium (Pericolace -) 2 tablet PO BID [facility] Last Admin: 07/27/19 10:26 Dose: 2 tablet - Objective Vital Signs: Vital Signs Temperature 98.0 F 07/27/19 17:41 Pulse Rate 98 H 07/27/19 17:41 Respiratory Rate 20 07/27/19 17:41 Blood Pressure 142/80 07/27/19 17:41 O2 Sat by Pulse Oximetry (%) 98 07/27/19 09:00 Constitutional: Yes: No Distress, Calm Cardiovascular: Yes: Regular Rate and Rhythm Respiratory: Yes: Regular Gastrointestinal: Yes: Normal Bowel Sounds, Soft Genitourinary: Yes: WNL Wound/Incision: Yes: Other (Lt hip wound vac in place/functioning) Neurological: Yes: Alert Labs: CBC, BMP 07/27/19 08:02 07/27/19 08:02 INR, PTT INR 0.97 (0.83-1.09) 07/23/19 09:56 Microbiology 07/24/19 20:20 Hip - Left Gram Stain - Final 07/24/19 20:20 Hip - Left Wound Culture - Final NO GROWTH AFTER 48 HOURS INCUBATION 07/23/19 05:00 Blood - Peripheral Venous Blood Culture - Preliminary NO GROWTH OBTAINED AFTER 96 HOURS, INCUBATION TO CONTINUE FOR 1 DAYS. 07/23/19 05:00 Blood - Peripheral Venous Blood Culture - Preliminary NO GROWTH OBTAINED AFTER 96 HOURS, INCUBATION TO CONTINUE FOR 1 DAYS. 07/22/19 22:10 Blood - Peripheral Venous Blood Culture - Preliminary NO GROWTH OBTAINED AFTER 96 HOURS, INCUBATION TO CONTINUE FOR 1 DAYS. 07/22/19 22:10 Blood - Peripheral Venous Blood Culture - Preliminary NO GROWTH OBTAINED AFTER 96 HOURS, INCUBATION TO CONTINUE FOR 1 DAYS. 07/22/19 21:41 Thigh - Left Gram Stain - Final 07/22/19 21:41 Thigh - Left Wound Culture - Final Diphtheroid/Corynebacterium Problem List - Problems (1) Wound, open, hip or thigh Code(s): [id number] - (2) Anemia Code(s): D64.9 - ANEMIA, UNSPECIFIED (3) Chronic pain Code(s): G89.29 - OTHER CHRONIC PAIN (4) Depression Code(s): F32.9 - MAJOR DEPRESSIVE DISORDER, SINGLE EPISODE, UNSPECIFIED (5) HTN (hypertension) Code(s): I10 - ESSENTIAL (PRIMARY) HYPERTENSION Assessment/Plan Lt hip wound infection s/p washout Hx of Lt KASH with recurrent wound infections -- pt for possible primary closure on Monday, will continue antibiotics for now -- wound vac in place -- pain control
[2019-07-28] MEDS ORDERED: MEROPENEM 1 GM VIAL (RESTRICTED TO ID) IVPB ONE ×3 (00:53→16:40)
[2019-07-28] MEDS ORDERED: DEXTROSE 5%-WATER 100 ML IVPB ONE ×3 (00:54→16:40)
[2019-07-28] MEDS: MEROPENEM 1 GM in DEXTROSE 5%-WATER 100 ML IVPB SCH ×3 (01:01→17:01)
[2019-07-28] MEDS: oxyCODONE HCL 5 MG TABLET PO PRN ×3 (01:01→21:52)
[2019-07-28] MEDS ORDERED: ACETAMINOPHEN 1000 MG/100 ML VIAL (NON FORMULARY) IVPB ONE (03:24)
[2019-07-28] MEDS: HEPARIN NA (PORCINE) 5,000 UNITS/ML 1ML VIAL SQ SCH ×3 (06:08→21:52)
[2019-07-28] MEDS: OXYBUTYNIN CHLORIDE 5 MG TABLET PO SCH ×3 (06:08→21:51)
[2019-07-28] MEDS: PREGABALIN 100 MG CAPSULE PO SCH ×3 (06:09→21:52)
[2019-07-28] MEDS: SENNOSIDES/DOCUSATE COMBO (SENNA PLUS) TABLET (UD) PO SCH ×2 (10:22→21:52)
[2019-07-28] MEDS: oxyCODONE HCL 20 MG SUSTAINED ACTING TABLET PO SCH (10:23)
[2019-07-28] MEDS: DULoxetine HCL 30 MG CAPSULE.DR PO SCH ×2 (10:24→21:51)
[2019-07-28] MEDS: PANTOPRAZOLE 40 MG TABLET (FP) PO SCH (10:24)
[2019-07-28] MEDS: SODIUM CHLORIDE 1,000 ML IV SCH (10:24)
--- NOTE | 2019-07-28 11:00 | PN ---
Teaching Attending Note Name of Resident: Martha Brewer ATTENDING PHYSICIAN STATEMENT I saw and evaluated the patient. I reviewed the resident's note and discussed the case with the resident. I agree with the resident's findings and plan as documented. SUBJECTIVE: Patient reports pain medication regimen is not adequate. OBJECTIVE: Vital Signs Period Temp Pulse Resp BP Sys/Vargas Pulse Ox Last 24 Hr 97.8 F-98.5 F 87-98 20-20 136-146/74-87 HEART: S1S2, RRR LUNGS: Clear ABDOMEN: Soft, non-tender, non-distended, normal BS EXTREMITIES: No edema. VAC on left thigh Current Medications Generic Name Dose Route Start Last Admin Trade Name Freq PRN Reason Stop Dose Admin Acetaminophen 650 mg 07/23/19 06:20 Tylenol - PO Q4H PRN PAIN LEVEL 1-5 Duloxetine HCl 30 mg 07/23/19 22:00 07/28/19 10:24 Cymbalta - PO 30 mg BID ELKE Administration Fentanyl 50 mcg 07/24/19 18:21 Sublimaze Injection - IVPUSH [id number] PRN PAIN-PACU ORDER X 4 DOSES ONLY Heparin Sodium (Porcine) 5,000 unit 07/23/19 06:00 07/28/19 06:08 Heparin - SQ 5,000 unit TID ELKE Administration Sodium Chloride 1,000 mls @ 75 mls/hr 07/23/19 00:15 07/28/19 10:24 Normal Saline - IV Not Given ASDIR ELKE Meropenem 1 gm/ Dextrose 100 mls @ 200 mls/hr 07/23/19 18:00 07/28/19 10:22 IVPB 200 mls/hr Q8H-IV [facility]KE Administration Ondansetron HCl 4 mg 07/24/19 18:21 Zofran Injection IVPUSH Q6H PRN NAUSEA AND/OR VOMITING Oxybutynin Chloride 5 mg 07/23/19 14:00 07/28/19 06:08 Ditropan - PO 5 mg TID ELKE Administration Oxycodone HCl 30 mg 07/23/19 16:59 07/28/19 01:01 Roxicodone - PO 30 mg Q6H PRN Administration PAIN LEVEL 7 - 10 Oxycodone HCl 20 mg 07/24/19 13:30 07/28/19 10:23 Oxycontin - PO 20 mg BID ELKE Administration Pantoprazole Sodium 40 mg 07/24/19 10:00 07/28/19 10:24 Protonix - PO 40 mg DAILY [facility]KE Administration Pregabalin 100 mg 07/23/19 14:00 07/28/19 06:09 Lyrica - PO 100 mg TID ELKE Administration Senna/Docusate Sodium 2 tablet 07/23/19 22:00 07/28/19 10:22 Pericolace - PO 2 tablet BID ELKE Administration ASSESSMENT AND PLAN: This is a 64 year old woman with a history of HTN, depression, anxiety, chronic back pain, urinary incontinence, left total hip replacement, chronic left hip wound who presented to the ED with worsening pain in her left hip and drainage from the left thigh wound. 1. 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 HTN - On no medication 3. Depression with anxiety - Continue Cymbalta 4. Anemia secondary to chronic illness - Hemoglobin is stable 5. Urinary incontinence - Continue Ditropan 6. Chronic back and left hip pain - Continue Lyrica, Cymbalta, OxyContin, oxycodone as needed
--- NOTE | 2019-07-28 11:09 | PN ---
Physical Exam: SUBJECTIVE: Patient seen and examined, complains of needing more pain medication OBJECTIVE: Vital Signs Temperature 97.8 F 07/28/19 07:43 Pulse Rate 87 07/28/19 07:43 Respiratory Rate 20 07/28/19 07:43 Blood Pressure 136/75 07/28/19 07:43 O2 Sat by Pulse Oximetry (%) 98 07/27/19 09:00 GENERAL: The patient is awake, HEAD: Normal with no signs of trauma.ple. . HEART: Regular rate and rhythm, S1, S2 without murmur, rub or gallop. EXTREMITIES: wound vac over R hip SKIN: Warm, dry, normal turgor, no rashes or lesions noted Active Medications Acetaminophen (Tylenol -) 650 mg PO Q4H PRN PRN Reason: PAIN LEVEL 1-5 Duloxetine HCl (Cymbalta -) 30 mg PO BID [facility] Last Admin: 07/28/19 10:24 Dose: 30 mg Fentanyl (Sublimaze Injection -) 50 mcg IVPUSH [id number] PRN PRN Reason: PAIN-PACU ORDER X 4 DOSES ONLY Heparin Sodium (Porcine) (Heparin -) 5,000 unit SQ TID [facility] Last Admin: 07/28/19 06:08 Dose: 5,000 unit Sodium Chloride (Normal Saline -) 1,000 mls @ 75 mls/hr IV ASDIR [facility] Last Admin: 07/28/19 10:24 Dose: Not Given Meropenem 1 gm/ Dextrose 100 mls @ 200 mls/hr IVPB Q8H-IV [facility] Last Admin: 07/28/19 10:22 Dose: 200 mls/hr Ondansetron HCl (Zofran Injection) 4 mg IVPUSH Q6H PRN PRN Reason: NAUSEA AND/OR VOMITING Oxybutynin Chloride (Ditropan -) 5 mg PO TID [facility] Last Admin: 07/28/19 06:08 Dose: 5 mg Oxycodone HCl (Roxicodone -) 30 mg PO Q6H PRN PRN Reason: PAIN LEVEL 7 - 10 Last Admin: 07/28/19 01:01 Dose: 30 mg Oxycodone HCl (Oxycontin -) 20 mg PO BID [facility] Last Admin: 07/28/19 10:23 Dose: 20 mg Pantoprazole Sodium (Protonix -) 40 mg PO DAILY [facility] Last Admin: 07/28/19 10:24 Dose: 40 mg Pregabalin (Lyrica -) 100 mg PO TID [facility] Last Admin: 07/28/19 06:09 Dose: 100 mg Senna/Docusate Sodium (Pericolace -) 2 tablet PO BID [facility] Last Admin: 07/28/19 10:22 Dose: 2 tablet ASSESSMENT/PLAN: Patient is a 64 y/o female withy a history of left hip arthroplasty who presents for infection of L hip. #s/p washout of L hip - patient with multiple surgeries of left hip, s/p wash out and wound closure on monday - wound vac to area - patient on Meropenem and followed by ID - continue pain medications Oxy and Oxycontin, patient on half her home dose - consult Dr. Garcia for pain management recommendations - zofran for nausea QTC 449 #GERD - continue protonix DVT ppx: SCD's, heaprin Dispo: f/u s/p procedure on Monday Visit type - Emergency Visit Emergency Visit: No - New Patient This patient is new to me today: No - Critical Care Critical Care patient: No ATTENDING PHYSICIAN STATEMENT I saw and evaluated the patient. I reviewed the resident's note and discussed the case with the resident. I agree with the resident's findings and plan as documented. SUBJECTIVE: OBJECTIVE: ASSESSMENT AND PLAN:
--- NOTE | 2019-07-28 18:52 | PN ---
Progress Note (short form) - Note Progress Note: Stable Apyrexial Vitals as per chart Multiple medical problems being addressed by medical team. Wound vac in situ PLAN NPO after midnight.For op tomorrow For? repeat Debridement ? Attempt delayed primary closure ? possilble local flap Will decide depending on the tissue bed and space.
--- NOTE | 2019-07-28 20:16 | PN ---
Progress Note, Physician History of Present Illness: Pt without new complaints. Sheduled for OR tomorrow. - Current Medication List Current Medications: Active Medications Acetaminophen (Tylenol -) 650 mg PO Q4H PRN PRN Reason: PAIN LEVEL 1-5 Duloxetine HCl (Cymbalta -) 30 mg PO BID [facility] Last Admin: 07/28/19 10:24 Dose: 30 mg Fentanyl (Sublimaze Injection -) 50 mcg IVPUSH [id number] PRN PRN Reason: PAIN-PACU ORDER X 4 DOSES ONLY Heparin Sodium (Porcine) (Heparin -) 5,000 unit SQ TID [facility] Last Admin: 07/28/19 13:59 Dose: 5,000 unit Sodium Chloride (Normal Saline -) 1,000 mls @ 75 mls/hr IV ASDIR [facility] Last Admin: 07/28/19 10:24 Dose: Not Given Meropenem 1 gm/ Dextrose 100 mls @ 200 mls/hr IVPB Q8H-IV [facility] Last Admin: 07/28/19 17:01 Dose: 200 mls/hr Ondansetron HCl (Zofran Injection) 4 mg IVPUSH Q6H PRN PRN Reason: NAUSEA AND/OR VOMITING Oxybutynin Chloride (Ditropan -) 5 mg PO TID [facility] Last Admin: 07/28/19 13:59 Dose: 5 mg Oxycodone HCl (Roxicodone -) 30 mg PO Q6H PRN PRN Reason: PAIN LEVEL 7 - 10 Last Admin: 07/28/19 13:59 Dose: 30 mg Oxycodone HCl (Oxycontin -) 20 mg PO BID [facility] Last Admin: 07/28/19 10:23 Dose: 20 mg Pantoprazole Sodium (Protonix -) 40 mg PO DAILY [facility] Last Admin: 07/28/19 10:24 Dose: 40 mg Pregabalin (Lyrica -) 100 mg PO TID [facility] Last Admin: 07/28/19 14:01 Dose: 100 mg Senna/Docusate Sodium (Pericolace -) 2 tablet PO BID [facility] Last Admin: 07/28/19 10:22 Dose: 2 tablet - Objective Vital Signs: Vital Signs Temperature 98 F 07/28/19 18:00 Pulse Rate 107 H 07/28/19 18:00 Respiratory Rate 20 07/28/19 18:00 Blood Pressure 143/86 07/28/19 18:00 O2 Sat by Pulse Oximetry (%) 98 07/28/19 09:00 Constitutional: Yes: No Distress Cardiovascular: Yes: Regular Rate and Rhythm Respiratory: Yes: Regular Gastrointestinal: Yes: Normal Bowel Sounds, Soft Wound/Incision: Yes: Other (Lt hip vac) Neurological: Yes: Alert Labs: CBC, BMP 07/27/19 08:02 07/27/19 08:02 INR, PTT INR 0.97 (0.83-1.09) 07/23/19 09:56 Microbiology 07/23/19 05:00 Blood - Peripheral Venous Blood Culture - Final NO GROWTH AFTER 5 DAYS INCUBATION 07/23/19 05:00 Blood - Peripheral Venous Blood Culture - Final NO GROWTH AFTER 5 DAYS INCUBATION 07/22/19 22:10 Blood - Peripheral Venous Blood Culture - Final NO GROWTH AFTER 5 DAYS INCUBATION 07/22/19 22:10 Blood - Peripheral Venous Blood Culture - Final NO GROWTH AFTER 5 DAYS INCUBATION 07/24/19 20:20 Hip - Left Gram Stain - Final 07/24/19 20:20 Hip - Left Wound Culture - Final NO GROWTH AFTER 48 HOURS INCUBATION 07/22/19 21:41 Thigh - Left Gram Stain - Final 07/22/19 21:41 Thigh - Left Wound Culture - Final Diphtheroid/Corynebacterium Problem List - Problems (1) Wound, open, hip or thigh Code(s): OYP2726 - (2) Anemia Code(s): D64.9 - ANEMIA, UNSPECIFIED (3) Chronic pain Code(s): G89.29 - OTHER CHRONIC PAIN (4) Depression Code(s): F32.9 - MAJOR DEPRESSIVE DISORDER, SINGLE EPISODE, UNSPECIFIED (5) HTN (hypertension) Code(s): I10 - ESSENTIAL (PRIMARY) HYPERTENSION Assessment/Plan Lt hip wound infection s/p washout Hx of Lt KASH with recurrent wound infections/debridements -- Scheduled for the OR tomorrow , will continue antibiotics for now -- continue monitor -- pain control
[2019-07-29] MEDS: SODIUM CHLORIDE 1,000 ML IV SCH (00:22)
[2019-07-29] MEDS ORDERED: MEROPENEM 1 GM VIAL (RESTRICTED TO ID) IVPB ONE ×3 (01:07→21:12)
[2019-07-29] MEDS ORDERED: DEXTROSE 5%-WATER 100 ML IVPB ONE ×3 (01:08→21:12)
[2019-07-29] MEDS: oxyCODONE HCL 20 MG SUSTAINED ACTING TABLET PO SCH ×3 (01:43→21:51)
[2019-07-29] MEDS: MEROPENEM 1 GM in DEXTROSE 5%-WATER 100 ML IVPB SCH ×3 (01:44→17:51)
[2019-07-29] MEDS: OXYBUTYNIN CHLORIDE 5 MG TABLET PO SCH ×3 (07:10→21:51)
[2019-07-29] MEDS: PREGABALIN 100 MG CAPSULE PO SCH ×3 (07:11→21:51)
[2019-07-29] MEDS: HEPARIN NA (PORCINE) 5,000 UNITS/ML 1ML VIAL SQ SCH ×3 (07:11→21:52)
[2019-07-29] MEDS: oxyCODONE HCL 5 MG TABLET PO PRN ×2 (07:11→20:31)
--- NOTE | 2019-07-29 08:49 | PN ---
Progress Note (short form) - Note Progress Note: NPO, IVF. Pre-op for left hip I&D w/wound vac exchange VS possible primary wound closure TODAY. Albert Moya MD (Orthopaedic Surgery).
--- NOTE | 2019-07-29 09:10 | PN ---
Teaching Attending Note Name of Resident: Martin Khan ATTENDING PHYSICIAN STATEMENT I saw and evaluated the patient. I reviewed the resident's note and discussed the case with the resident. I agree with the resident's findings and plan as documented. SUBJECTIVE: paient is comfortable with no acute distress. Vital Signs Temperature 98.2 F 07/29/19 06:00 Pulse Rate 107 H 07/29/19 06:00 Respiratory Rate 20 07/29/19 08:49 Blood Pressure 164/75 07/29/19 06:00 O2 Sat by Pulse Oximetry (%) 98 07/29/19 08:49 GENERAL: The patient is awake, alert, and fully oriented, in no acute distress. HEAD: Normal with no signs of trauma. EYES: PERRL, extraocular movements intact, sclera anicteric, conjunctiva clear. ENT: Ears normal, oropharynx clear without exudates, moist mucous membranes. NECK: Trachea midline, full range of motion, supple. LUNGS: Breath sounds equal, clear to auscultation bilaterally, no wheezes, no crackles, no accessory muscle use. HEART: Regular rate and rhythm, S1, S2 without murmur, rub or gallop. ABDOMEN: Soft, nontender, nondistended, normoactive bowel sounds, no guarding, no rebound, no hepatosplenomegaly, no masses. EXTREMITIES: 2+ pulses, warm, well-perfused, L LE is shorter than R. L hip with a wound vac. no erythema. tenderness around the wound. NEUROLOGICAL: Cranial nerves II through XII grossly intact. Normal speech, gait not observed. PSYCH: Normal mood, normal affect. SKIN: Warm, dry, normal turgor, no rashes or lesions noted CBCD WBC 8.2 K/mm3 (4.0-10.0) 07/27/19 08:02 RBC 4.59 M/mm3 (3.60-5.2) 07/27/19 08:02 Hgb 10.8 GM/dL (10.7-15.3) 07/27/19 08:02 Hct 33.8 % (32.4-45.2) 07/27/19 08:02 MCV 73.7 fl (80-96) L 07/27/19 08:02 MCHC 31.9 g/dl (32.0-36.0) L 07/27/19 08:02 RDW 18.1 % (11.6-15.6) H 07/27/19 08:02 Plt Count 373 K/MM3 (134-434) 07/27/19 08:02 MPV 7.3 fl (7.5-11.1) L 07/27/19 08:02 CMP Sodium 139 mmol/L (136-145) 07/27/19 08:02 Potassium 3.9 mmol/L (3.5-5.1) 07/27/19 08:02 Chloride 107 mmol/L (98-107) 07/27/19 08:02 Carbon Dioxide 28 mmol/L (21-32) 07/27/19 08:02 Anion Gap 4 MMOL/L (8-16) L 07/27/19 08:02 BUN 19.0 mg/dL (7-18) H 07/27/19 08:02 Creatinine 0.9 mg/dL (0.55-1.3) 07/27/19 08:02 Random Glucose 85 mg/dL (74-106) 07/27/19 08:02 Calcium 9.1 mg/dL (8.5-10.1) 07/27/19 08:02 Total Bilirubin 0.2 mg/dL (0.2-1) 07/25/19 06:50 AST 12 U/L (15-37) L 07/25/19 06:50 ALT 13 U/L (13-61) 07/25/19 06:50 Alkaline Phosphatase 125 U/L (45-117) H 07/25/19 06:50 Total Protein 7.8 g/dl (6.4-8.2) 07/25/19 06:50 Albumin 3.5 g/dl (3.4-5.0) 07/25/19 06:50 Current Medications Generic Name Dose Route Start Last Admin Trade Name Freq PRN Reason Stop Dose Admin Acetaminophen 650 mg 07/23/19 06:20 Tylenol - PO Q4H PRN PAIN LEVEL 1-5 Duloxetine HCl 30 mg 07/23/19 22:00 07/28/19 21:51 Cymbalta - PO 30 mg BID ELKE Administration Fentanyl 50 mcg 07/24/19 18:21 Sublimaze Injection - IVPUSH [id number] PRN PAIN-PACU ORDER X 4 DOSES ONLY Heparin Sodium (Porcine) 5,000 unit 07/23/19 06:00 07/29/19 07:11 Heparin - SQ Not Given TID ELKE Sodium Chloride 1,000 mls @ 75 mls/hr 07/23/19 00:15 07/29/19 00:22 Normal Saline - IV Not Given ASDIR ELKE Meropenem 1 gm/ Dextrose 100 mls @ 200 mls/hr 07/23/19 18:00 07/29/19 01:44 IVPB 200 mls/hr Q8H-IV ELKE Administration Ondansetron HCl 4 mg 07/24/19 18:21 Zofran Injection IVPUSH Q6H PRN NAUSEA AND/OR VOMITING Oxybutynin Chloride 5 mg 07/23/19 14:00 07/29/19 07:10 Ditropan - PO 5 mg TID ELKE Administration Oxycodone HCl 30 mg 07/23/19 16:59 07/29/19 07:11 Roxicodone - PO 30 mg Q6H PRN Administration PAIN LEVEL 7 - 10 Oxycodone HCl 20 mg 07/24/19 13:30 07/29/19 01:43 Oxycontin - PO 20 mg BID ELKE Administration Pantoprazole Sodium 40 mg 07/24/19 10:00 07/28/19 10:24 Protonix - PO 40 mg DAILY ELKE Administration Pregabalin 100 mg 07/23/19 14:00 07/29/19 07:11 Lyrica - PO 100 mg TID ELKE Administration Senna/Docusate Sodium 2 tablet 07/23/19 22:00 07/28/19 21:52 Pericolace - PO 2 tablet BID ELKE Administration Home Medications Medication Instructions Recorded Omeprazole 40 mg PO DAILY 08/24/18 Oxybutynin Chloride 5 mg PO TID 08/24/18 Duloxetine HCl [Cymbalta] 30 mg PO BID 15 Days #30 capsule. 03/19/19 Pregabalin [Lyrica] 100 mg PO TID #30 capsule MDD 3 03/19/19 Oxycodone HCl 30 mg PO Q4H PRN 3 Days #10 tablet 04/09/19 MDD 6 Sennosides/Docusate Sodium 2 tablet PO BID tablet 05/01/19 [Pericolace -] Fluconazole 200 mg PO DAILY 07/23/19 Oxycodone HCl [Oxycodone HCl ER] 80 mg PO TID 07/23/19 Microbiology 07/22/19 21:41 Thigh - Left Gram Stain - Final 07/22/19 21:41 Thigh - Left Wound Culture - Preliminary Staphylococcus Coagulase Neg 07/23/19 05:00 Blood - Peripheral Venous Blood Culture - Preliminary NO GROWTH OBTAINED AFTER 24 HOURS, INCUBATION TO CONTINUE FOR 4 DAYS. 07/23/19 05:00 Blood - Peripheral Venous Blood Culture - Preliminary NO GROWTH OBTAINED AFTER 24 HOURS, INCUBATION TO CONTINUE FOR 4 DAYS. 07/22/19 22:10 Blood - Peripheral Venous Blood Culture - Preliminary NO GROWTH OBTAINED AFTER 24 HOURS, INCUBATION TO CONTINUE FOR 4 DAYS. 07/22/19 22:10 Blood - Peripheral Venous Blood Culture - Preliminary NO GROWTH OBTAINED AFTER 24 HOURS, INCUBATION TO CONTINUE FOR 4 DAYS. Microbiology 07/23/19 05:00 Blood Culture - Preliminary Blood - Peripheral Venous NO GROWTH OBTAINED AFTER 72 HOURS, INCUBATION TO CONTINUE FOR 2 DAYS. 07/23/19 05:00 Blood Culture - Preliminary Blood - Peripheral Venous NO GROWTH OBTAINED AFTER 72 HOURS, INCUBATION TO CONTINUE FOR 2 DAYS. 07/22/19 22:10 Blood Culture - Preliminary Blood - Peripheral Venous NO GROWTH OBTAINED AFTER 72 HOURS, INCUBATION TO CONTINUE FOR 2 DAYS. 07/22/19 22:10 Blood Culture - Preliminary Blood - Peripheral Venous NO GROWTH OBTAINED AFTER 72 HOURS, INCUBATION TO CONTINUE FOR 2 DAYS. 07/24/19 20:20 Gram Stain - Final Hip - Left 07/22/19 21:41 Gram Stain - Final Thigh - Left Wound Culture - Final Diphtheroid/Corynebacterium Microbiology 07/29/19 12:42 Hip - Left Gram Stain - Final 07/23/19 05:00 Blood - Peripheral Venous Blood Culture - Final NO GROWTH AFTER 5 DAYS INCUBATION 07/23/19 05:00 Blood - Peripheral Venous Blood Culture - Final NO GROWTH AFTER 5 DAYS INCUBATION 07/22/19 22:10 Blood - Peripheral Venous Blood Culture - Final NO GROWTH AFTER 5 DAYS INCUBATION 07/22/19 22:10 Blood - Peripheral Venous Blood Culture - Final NO GROWTH AFTER 5 DAYS INCUBATION 07/24/19 20:20 Hip - Left Gram Stain - Final 07/24/19 20:20 Hip - Left Wound Culture - Final NO GROWTH AFTER 48 HOURS INCUBATION 07/22/19 21:41 Thigh - Left Gram Stain - Final 07/22/19 21:41 Thigh - Left Wound Culture - Final Diphtheroid/Corynebacterium ASSESSMENT AND PLAN: Patient is a 64 y/o female with PMhx of L hip replacement in 2017 with a prolonged complicated course with wound infections, I&D, vac, Abx courses, and hospitalizations. She also has depression , anxiety , opioids dependence , and HTN who presented with drainage from L hip # POD #5 s/p I&D by Surgeon: Albert Moya for Left hip infected wound :patient has a wound vac. continue meropenem ,Dr. Munoz on the case continue pain meds. Patient is going for primary closure today as per # neuropathy, and depression : continue cymbalta and lyrica DVt px: SCDs , heparin
[2019-07-29] MEDS: PANTOPRAZOLE 40 MG TABLET (FP) PO SCH (10:46)
[2019-07-29] MEDS: SENNOSIDES/DOCUSATE COMBO (SENNA PLUS) TABLET (UD) PO SCH ×2 (10:46→21:52)
[2019-07-29] MEDS: DULoxetine HCL 30 MG CAPSULE.DR PO SCH ×2 (10:56→21:51)
--- NOTE | 2019-07-29 11:11 | PN ---
Progress Note, Physician History of Present Illness: stable no new issues for or - Current Medication List Current Medications: Active Medications Acetaminophen (Tylenol -) 650 mg PO Q4H PRN PRN Reason: PAIN LEVEL 1-5 Duloxetine HCl (Cymbalta -) 30 mg PO BID [facility] Last Admin: 07/29/19 10:56 Dose: 30 mg Fentanyl (Sublimaze Injection -) 50 mcg IVPUSH [id number] PRN PRN Reason: PAIN-PACU ORDER X 4 DOSES ONLY Heparin Sodium (Porcine) (Heparin -) 5,000 unit SQ TID [facility] Last Admin: 07/29/19 07:11 Dose: Not Given Sodium Chloride (Normal Saline -) 1,000 mls @ 75 mls/hr IV ASDIR [facility] Last Admin: 07/29/19 00:22 Dose: Not Given Meropenem 1 gm/ Dextrose 100 mls @ 200 mls/hr IVPB Q8H-IV [facility] Last Admin: 07/29/19 10:42 Dose: 200 mls/hr Ondansetron HCl (Zofran Injection) 4 mg IVPUSH Q6H PRN PRN Reason: NAUSEA AND/OR VOMITING Oxybutynin Chloride (Ditropan -) 5 mg PO TID [facility] Last Admin: 07/29/19 07:10 Dose: 5 mg Oxycodone HCl (Roxicodone -) 30 mg PO Q6H PRN PRN Reason: PAIN LEVEL 7 - 10 Last Admin: 07/29/19 07:11 Dose: 30 mg Oxycodone HCl (Oxycontin -) 20 mg PO BID [facility] Last Admin: 07/29/19 10:43 Dose: 20 mg Pantoprazole Sodium (Protonix -) 40 mg PO DAILY [facility] Last Admin: 07/29/19 10:46 Dose: 40 mg Pregabalin (Lyrica -) 100 mg PO TID [facility] Last Admin: 07/29/19 07:11 Dose: 100 mg Senna/Docusate Sodium (Pericolace -) 2 tablet PO BID [facility] Last Admin: 07/29/19 10:46 Dose: Not Given - Objective Vital Signs: Vital Signs Temperature 98 F 07/29/19 10:00 Pulse Rate 100 H 07/29/19 10:00 Respiratory Rate 20 07/29/19 10:00 Blood Pressure 127/69 07/29/19 10:00 O2 Sat by Pulse Oximetry (%) 98 07/29/19 08:49 Constitutional: Yes: No Distress, Calm Cardiovascular: Yes: S1, S2 Respiratory: Yes: Regular, CTA Bilaterally Gastrointestinal: Yes: Normal Bowel Sounds, Soft Musculoskeletal: Yes: WNL Extremities: Yes: WNL Neurological: Yes: Alert, Oriented Psychiatric: Yes: Alert, Oriented Labs: CBC, BMP 07/27/19 08:02 07/27/19 08:02 INR, PTT INR 0.97 (0.83-1.09) 07/23/19 09:56 Assessment/Plan 64 year old female with Pmh of left total hip arthroplasty s/p washouts and wound vac due to chronic left wound ulcers, recurrent wound infections with resistant organisms, osteoarthritis, SLE, HTN, anxiety, overactive bladder who presented to the ED with worsening left hip pain and drainage. admitted for left hip wound infection s/p missed washout appointment Problem List - Problems (1) Wound, open, hip or thigh Code(s): EIZ0374 - (2) Anemia Code(s): D64.9 - ANEMIA, UNSPECIFIED (3) Chronic pain Code(s): G89.29 - OTHER CHRONIC PAIN (4) Depression Code(s): F32.9 - MAJOR DEPRESSIVE DISORDER, SINGLE EPISODE, UNSPECIFIED (5) HTN (hypertension) Code(s): I10 - ESSENTIAL (PRIMARY) HYPERTENSION Assessment/Plan Lt hip wound infection s/p washout Hx of Lt KASH with recurrent wound infections/debridements -- Scheduled for the OR -- continue monitor -- pain control
[2019-07-29] MEDS ORDERED: PROPOFOL 20 ML ONE (12:01)
[2019-07-29] MEDS ORDERED: LIDOCAINE HCL/PF 2% SDV 5ML VIAL ONE (12:01)
[2019-07-29] MEDS ORDERED: KETOROLAC TROMETHAMINE 30 MG/1 ML VIAL ONE (12:58)
--- NOTE | 2019-07-29 12:58 | PN ---
Progress Note (short form) - Note Progress Note: 64F s/p I&D left hip wound with delayed primary wound closure POD #0. Deep cavity persists. No purulence seen. -Pain control. -DVT PPx: -Chemical: ASA 81mg PO qD. -Mechanical: SOUTH's, SCD's. -Incentive spirometry q15 min. -PT/OT/Rehab, OOB. -WBAT RLE; NWB LLE. -f/u post-op TOV: 8 hours max. -Diet as tolerated. -Care per medical hospitalist & ID teams. -f/u pain management recommendations: Dr. Elliot Garcia. -Discharge planning: rehab VS home w/services; f/u 7-10 [facility]; call for appointment; . -Will follow. Albert Moya MD (Orthopaedic Surgery).
--- NOTE | 2019-07-29 13:01 | OP ---
Operative Note - Note: Operative Date: 07/29/19 Pre-Operative Diagnosis: Chronic left hip wound dehiscence Operation: 1. I&D Left hip wound. 2. Delayed primary closure left hip wound Post-Operative Diagnosis: Same as Pre-op Surgeon: Albert Moya Anesthesiologist/HOSPITAL INTERN: Marcella Whitney Anesthesia: General Specimens Removed: Culture stick Estimated Blood Loss (mls): 0 Fluid Volume Replaced (mls): 400 (Crystalloid) Operative Report Dictated: Yes
--- NOTE | 2019-07-29 13:53 | OP ---
DATE OF OPERATION: DATE OF DICTATION: 07/29/2019 SURGEON: Albert Moya MD SLIP MIXER: No activity assistant PREOPERATIVE DIAGNOSIS: Chronic wound, left proximal upper thigh with wound VAC in situ. POSTOPERATIVE DIAGNOSIS: Chronic wound, left proximal upper thigh with wound VAC in situ. OPERATION PERFORMED: Removal of wound VAC, debridement of soft tissue, washout , and delayed primary closure (complex closure 20 cm). ANESTHESIA: General. PROCEDURE: Patient correctly identified. Brought to the operating room. Placed lateral decubitus position left side up. Left proximal lateral thigh was prepped with Betadine scrub solution, wiped off with alcohol, DuraPrep applied, a window drape applied. The wound VAC was removed. The tissues were healthy. Clean cultures were sent for M,C and S. The deep tissues were healthy and granulating. An attempt at a delayed primary closure, once again, performed. It must be noted that the size of the wound is 1/2 of what it was, but there is still undermined deep cavity. On the basis of this, I closed the wound with PDS No. 1 and 2-0 nylon interrupted sutures. A seal dressing applied. Prediction of outcome, this will heal but with drainage and leave a chronic sinus, and I am waiting for that chronic sinus to form. Methylene blue will be placed in the sinus and the sinus excised and a repeat closure performed, or if this does not occur, we are going to need a local flap by the plastic surgical team to close the deep space. MD OSVALDO Oconnor/[id number] MTDD
--- NOTE | 2019-07-29 14:20 | PN ---
Physical Exam: SUBJECTIVE: Patient seen and examined in the morning. No acute events overnight. Patient complains of chronic pain. No complaints of chest pain, shortness of breath, constipation, abdominal pain,nausea, vomiting, diarrhea. OBJECTIVE: Vital Signs Period Temp Pulse Resp BP Sys/Vargas Pulse Ox Last 24 Hr 97.9 F-98.8 F 90-108 10-20 127-164/65-86 98-100 GENERAL: The patient is tired and in no acute distress. HEAD: Normal with no signs of trauma. LUNGS: Breath sounds equal, clear to auscultation bilaterally, no wheezes. HEART: Regular rate and rhythm, S1, S2 without murmur, rub or gallop. ABDOMEN: Soft, nontender, nondistended, normoactive bowel sounds. EXTREMITIES: 2+ pulses, warm, well-perfused, no edema. Wound is being drained by wound vac. Dressing in place, no leakage. SKIN: Warm, dry, normal turgor, no rashes or lesions noted Active Medications Generic Name Dose Route Start Last Admin Trade Name Freq PRN Reason Stop Dose Admin Acetaminophen 650 mg 07/23/19 06:20 Tylenol - PO Q4H PRN PAIN LEVEL 1-5 Diphenhydramine HCl 50 mg 07/29/19 13:01 Benadryl - PO TID PRN ALLERGIES Duloxetine HCl 30 mg 07/23/19 22:00 07/29/19 10:56 Cymbalta - PO 30 mg BID ELKE Administration Fentanyl 25 mcg 07/29/19 13:22 Sublimaze Injection - IVPUSH [id number] PRN PAIN-PACU ORDER X 4 DOSES ONLY Heparin Sodium (Porcine) 5,000 unit 07/23/19 06:00 07/29/19 13:36 Heparin - SQ Not Given TID ELKE Sodium Chloride 1,000 mls @ 75 mls/hr 07/23/19 00:15 07/29/19 00:22 Normal Saline - IV Not Given ASDIR ELKE Meropenem 1 gm/ Dextrose 100 mls @ 200 mls/hr 07/23/19 18:00 07/29/19 10:42 IVPB 200 mls/hr Q8H-IV ELKE Administration Ondansetron HCl 4 mg 07/24/19 18:21 Zofran Injection IVPUSH Q6H PRN NAUSEA AND/OR VOMITING Oxybutynin Chloride 5 mg 07/23/19 14:00 07/29/19 13:36 Ditropan - PO Not Given TID ELKE Oxycodone HCl 30 mg 07/23/19 16:59 07/29/19 07:11 Roxicodone - PO 30 mg Q6H PRN Administration PAIN LEVEL 7 - 10 Oxycodone HCl 20 mg 07/24/19 13:30 07/29/19 10:43 Oxycontin - PO 20 mg BID ELKE Administration Pantoprazole Sodium 40 mg 07/24/19 10:00 07/29/19 10:46 Protonix - PO 40 mg DAILY ELKE Administration Pregabalin 100 mg 07/23/19 14:00 07/29/19 13:36 Lyrica - PO Not Given TID ELKE Senna/Docusate Sodium 2 tablet 07/23/19 22:00 07/29/19 10:46 Pericolace - PO Not Given BID [facility] ASSESSMENT/PLAN: 64 F with PMH of left total hip arthorplasty s/p washouts and wound vac with 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 1)Hip Drainage -For surgical scar closure today. -Meronpenem 1 gram IV Q8H. -Vancomycin discontinued -Patient had washout completed. Will go for attempted closure of surgical scar on Monday. -F/U culture from OR -Ortho consulted, appreciate recs -ID consulted, appreciate recs 2)Chronic pain -Oxycontin 20 mg BID -Oxycodone 30 mg Q6H PRN -Pregabalin 100 mg PO TID -Duloxetine 30 mg PO BID -Pain Management consulted, appreciate recs DVT: SCDs F:NS @ 75 ml/hr E:Monitor BMP N:Regular Diet after procedure. Dispo: Admitted to medicine Visit type - Emergency Visit Emergency Visit: Yes ED Registration Date: 07/22/19 Care time: The patient presented to the Emergency Department on the above date and was hospitalized for further evaluation of their emergent condition. - New Patient This patient is new to me today: No - Critical Care Critical Care patient: No ATTENDING PHYSICIAN STATEMENT I saw and evaluated the patient. I reviewed the resident's note and discussed the case with the resident. I agree with the resident's findings and plan as documented. SUBJECTIVE: OBJECTIVE: ASSESSMENT AND PLAN:
[2019-07-30] MEDS ORDERED: MEROPENEM 1 GM VIAL (RESTRICTED TO ID) IVPB ONE ×2 (00:53→09:30)
[2019-07-30] MEDS ORDERED: DEXTROSE 5%-WATER 100 ML IVPB ONE ×2 (00:54→09:30)
[2019-07-30] MEDS: SODIUM CHLORIDE 1,000 ML IV SCH (01:19)
[2019-07-30] MEDS: MEROPENEM 1 GM in DEXTROSE 5%-WATER 100 ML IVPB SCH ×2 (01:19→10:40)
[2019-07-30] MEDS: oxyCODONE HCL 5 MG TABLET PO PRN ×3 (03:39→18:24)
[2019-07-30] MEDS: PREGABALIN 100 MG CAPSULE PO SCH ×3 (06:33→21:18)
[2019-07-30] MEDS: OXYBUTYNIN CHLORIDE 5 MG TABLET PO SCH ×3 (06:33→21:18)
[2019-07-30] MEDS: HEPARIN NA (PORCINE) 5,000 UNITS/ML 1ML VIAL SQ SCH ×3 (06:33→21:19)
[2019-07-30 09:32] LABS: BASO % 0.5 % (0-2.0); HEMATOCRIT 32.6 % (32.4-45.2); HEMOGLOBIN 10.3 GM/dL (10.7-15.3); LYMPH % 20.8 % (8-40); MCH 23.2 pg (25.7-33.7); MCHC 31.6 g/dl (32.0-36.0); MEAN CELL VOLUME 73.5 fl (80-96); MEAN PLT VOLUME 7.4 fl (7.5-11.1); MONO % 5.6 % (3.8-10.2); NEUT % 65.1 % (42.8-82.8); PLATELET COUNT 338 K/MM3 (134-434); RBC 4.44 M/mm3 (3.60-5.2); RDW 18.2 % (11.6-15.6); WHITE BLOOD COUNT 7.9 K/mm3 (4.0-10.0)
[2019-07-30 10:08] LABS: ALBUMIN 3.1 g/dl (3.4-5.0); BILIRUBIN,TOTAL 0.1 mg/dL (0.2-1); BLOOD UREA NITROGEN 19.6 mg/dL (7-18); CALCIUM 8.8 mg/dL (8.5-10.1); CREATININE 0.9 mg/dL (0.55-1.3); POTASSIUM 4.2 mmol/L (3.5-5.1); TOT PROT 7.3 g/dl (6.4-8.2)
[2019-07-30] MEDS: DULoxetine HCL 30 MG CAPSULE.DR PO SCH ×2 (10:38→21:18)
[2019-07-30] MEDS: PANTOPRAZOLE 40 MG TABLET (FP) PO SCH (10:38)
[2019-07-30] MEDS: oxyCODONE HCL 20 MG SUSTAINED ACTING TABLET PO SCH ×2 (10:39→21:18)
[2019-07-30] MEDS: SENNOSIDES/DOCUSATE COMBO (SENNA PLUS) TABLET (UD) PO SCH ×2 (10:39→21:18)
--- NOTE | 2019-07-30 10:50 | PN ---
Teaching Attending Note Name of Resident: Martin Khan ATTENDING PHYSICIAN STATEMENT I saw and evaluated the patient. I reviewed the resident's note and discussed the case with the resident. I agree with the resident's findings and plan as documented. SUBJECTIVE: Patient is feeling better today pod#1 Vital Signs Temperature 99.2 F 07/30/19 06:00 Pulse Rate 112 H 07/30/19 06:00 Respiratory Rate 20 07/30/19 09:00 Blood Pressure 150/78 07/30/19 06:00 O2 Sat by Pulse Oximetry (%) 95 07/30/19 09:00 GENERAL: The patient is awake, alert, and fully oriented, in no acute distress. HEAD: Normal with no signs of trauma. EYES: PERRL, extraocular movements intact, sclera anicteric, conjunctiva clear. ENT: Ears normal, oropharynx clear without exudates, moist mucous membranes. NECK: Trachea midline, full range of motion, supple. LUNGS: Breath sounds equal, clear to auscultation bilaterally, no wheezes, no crackles, no accessory muscle use. HEART: Regular rate and rhythm, S1, S2 without murmur, rub or gallop. ABDOMEN: Soft, nontender, nondistended, normoactive bowel sounds, no guarding, no rebound, no hepatosplenomegaly, no masses. EXTREMITIES: 2+ pulses, warm, well-perfused, L LE is shorter than R. L hip s/p a wound vac. positive for dressing, no erythema. tenderness around the wound. NEUROLOGICAL: Cranial nerves II through XII grossly intact. Normal speech, gait not observed. PSYCH: Normal mood, normal affect. SKIN: Warm, dry, normal turgor, no rashes or lesions noted CBCD WBC 7.9 K/mm3 (4.0-10.0) 07/30/19 08:45 RBC 4.44 M/mm3 (3.60-5.2) 07/30/19 08:45 Hgb 10.3 GM/dL (10.7-15.3) L 07/30/19 08:45 Hct 32.6 % (32.4-45.2) 07/30/19 08:45 MCV 73.5 fl (80-96) L 07/30/19 08:45 MCHC 31.6 g/dl (32.0-36.0) L 07/30/19 08:45 RDW 18.2 % (11.6-15.6) H 07/30/19 08:45 Plt Count 338 K/MM3 (134-434) 07/30/19 08:45 MPV 7.4 fl (7.5-11.1) L 07/30/19 08:45 CMP Sodium 136 mmol/L (136-145) 07/30/19 08:45 Potassium 4.2 mmol/L (3.5-5.1) 07/30/19 08:45 Chloride 105 mmol/L (98-107) 07/30/19 08:45 Carbon Dioxide 26 mmol/L (21-32) 07/30/19 08:45 Anion Gap 5 MMOL/L (8-16) L 07/30/19 08:45 BUN 19.6 mg/dL (7-18) H 07/30/19 08:45 Creatinine 0.9 mg/dL (0.55-1.3) 07/30/19 08:45 Random Glucose 93 mg/dL (74-106) 07/30/19 08:45 Calcium 8.8 mg/dL (8.5-10.1) 07/30/19 08:45 Total Bilirubin 0.1 mg/dL (0.2-1) L 07/30/19 08:45 AST 16 U/L (15-37) 07/30/19 08:45 ALT 17 U/L (13-61) 07/30/19 08:45 Alkaline Phosphatase 128 U/L (45-117) H 07/30/19 08:45 Total Protein 7.3 g/dl (6.4-8.2) 07/30/19 08:45 Albumin 3.1 g/dl (3.4-5.0) L 07/30/19 08:45 Current Medications Generic Name Dose Route Start Last Admin Trade Name Freq PRN Reason Stop Dose Admin Acetaminophen 650 mg 07/23/19 06:20 Tylenol - PO Q4H PRN PAIN LEVEL 1-5 Diphenhydramine HCl 50 mg 07/29/19 13:01 Benadryl - PO TID PRN ALLERGIES Duloxetine HCl 30 mg 07/23/19 22:00 07/30/19 10:38 Cymbalta - PO 30 mg BID ELKE Administration Fentanyl 25 mcg 07/29/19 13:22 Sublimaze Injection - IVPUSH [id number] PRN PAIN-PACU ORDER X 4 DOSES ONLY Heparin Sodium (Porcine) 5,000 unit 07/23/19 06:00 07/30/19 06:33 Heparin - SQ 5,000 unit TID ELKE Administration Sodium Chloride 1,000 mls @ 75 mls/hr 07/23/19 00:15 07/30/19 01:19 Normal Saline - IV 75 mls/hr ASDIR ELKE Administration Meropenem 1 gm/ Dextrose 100 mls @ 200 mls/hr 07/23/19 18:00 07/30/19 10:40 IVPB Not Given Q8H-IV ELKE Ondansetron HCl 4 mg 07/24/19 18:21 Zofran Injection IVPUSH Q6H PRN NAUSEA AND/OR VOMITING Oxybutynin Chloride 5 mg 07/23/19 14:00 07/30/19 06:33 Ditropan - PO 5 mg TID ELKE Administration Oxycodone HCl 30 mg 07/23/19 16:59 07/30/19 03:39 Roxicodone - PO 30 mg Q6H PRN Administration PAIN LEVEL 7 - 10 Oxycodone HCl 20 mg 07/24/19 13:30 07/30/19 10:39 Oxycontin - PO 20 mg BID ELKE Administration Pantoprazole Sodium 40 mg 07/24/19 10:00 07/30/19 10:38 Protonix - PO 40 mg DAILY ELKE Administration Pregabalin 100 mg 07/23/19 14:00 07/30/19 06:33 Lyrica - PO 100 mg TID ELKE Administration Senna/Docusate Sodium 2 tablet 07/23/19 22:00 07/30/19 10:39 Pericolace - PO 2 tablet BID ELKE Administration Home Medications Medication Instructions Recorded Omeprazole 40 mg PO DAILY 08/24/18 Oxybutynin Chloride 5 mg PO TID 08/24/18 Duloxetine HCl [Cymbalta] 30 mg PO BID 15 Days #30 capsule. 03/19/19 Pregabalin [Lyrica] 100 mg PO TID #30 capsule MDD 3 03/19/19 Oxycodone HCl 30 mg PO Q4H PRN 3 Days #10 tablet 04/09/19 MDD 6 Sennosides/Docusate Sodium 2 tablet PO BID tablet 05/01/19 [Pericolace -] Fluconazole 200 mg PO DAILY 07/23/19 Oxycodone HCl [Oxycodone HCl ER] 80 mg PO TID 07/23/19 Microbiology 07/22/19 21:41 Thigh - Left Gram Stain - Final 07/22/19 21:41 Thigh - Left Wound Culture - Preliminary Staphylococcus Coagulase Neg 07/23/19 05:00 Blood - Peripheral Venous Blood Culture - Preliminary NO GROWTH OBTAINED AFTER 24 HOURS, INCUBATION TO CONTINUE FOR 4 DAYS. 07/23/19 05:00 Blood - Peripheral Venous Blood Culture - Preliminary NO GROWTH OBTAINED AFTER 24 HOURS, INCUBATION TO CONTINUE FOR 4 DAYS. 07/22/19 22:10 Blood - Peripheral Venous Blood Culture - Preliminary NO GROWTH OBTAINED AFTER 24 HOURS, INCUBATION TO CONTINUE FOR 4 DAYS. 07/22/19 22:10 Blood - Peripheral Venous Blood Culture - Preliminary NO GROWTH OBTAINED AFTER 24 HOURS, INCUBATION TO CONTINUE FOR 4 DAYS. Microbiology 07/23/19 05:00 Blood Culture - Preliminary Blood - Peripheral Venous NO GROWTH OBTAINED AFTER 72 HOURS, INCUBATION TO CONTINUE FOR 2 DAYS. 07/23/19 05:00 Blood Culture - Preliminary Blood - Peripheral Venous NO GROWTH OBTAINED AFTER 72 HOURS, INCUBATION TO CONTINUE FOR 2 DAYS. 07/22/19 22:10 Blood Culture - Preliminary Blood - Peripheral Venous NO GROWTH OBTAINED AFTER 72 HOURS, INCUBATION TO CONTINUE FOR 2 DAYS. 07/22/19 22:10 Blood Culture - Preliminary Blood - Peripheral Venous NO GROWTH OBTAINED AFTER 72 HOURS, INCUBATION TO CONTINUE FOR 2 DAYS. 07/24/19 20:20 Gram Stain - Final Hip - Left 07/22/19 21:41 Gram Stain - Final Thigh - Left Wound Culture - Final Diphtheroid/Corynebacterium Microbiology Microbiology 07/29/19 12:42 Hip - Left Gram Stain - Final 07/29/19 12:42 Hip - Left Wound Culture - Preliminary NO GROWTH OBTAINED AFTER 24 HOURS INCUBATION, REINCUBATED. 07/23/19 05:00 Blood - Peripheral Venous Blood Culture - Final NO GROWTH AFTER 5 DAYS INCUBATION 07/23/19 05:00 Blood - Peripheral Venous Blood Culture - Final NO GROWTH AFTER 5 DAYS INCUBATION 07/22/19 22:10 Blood - Peripheral Venous Blood Culture - Final NO GROWTH AFTER 5 DAYS INCUBATION 07/22/19 22:10 Blood - Peripheral Venous Blood Culture - Final NO GROWTH AFTER 5 DAYS INCUBATION 07/24/19 20:20 Hip - Left Gram Stain - Final 07/24/19 20:20 Hip - Left Wound Culture - Final NO GROWTH AFTER 48 HOURS INCUBATION 07/22/19 21:41 Thigh - Left Gram Stain - Final 07/22/19 21:41 Thigh - Left Wound Culture - Final Diphtheroid/Corynebacterium ASSESSMENT AND PLAN: Patient is a 64 y/o female with PMhx of L hip replacement in 2017 with a prolonged complicated course with wound infections, I&D, vac, Abx courses, and hospitalizations. She also has depression , anxiety , opioids dependence , and HTN who presented with drainage from L hip #POD #1 s/p delayed primary wound closure , follow dr Moya's recomendations for dc # POD #5 s/p I&D by Surgeon: Albert Moya for Left hip infected wound :s/p wound vac. last dose of meropenem as per Dr. Munoz is today .continue pain meds. # neuropathy, and depression : continue cymbalta and lyrica DVt px: SCDs , heparin
--- NOTE | 2019-07-30 11:26 | PN ---
Progress Note, Physician History of Present Illness: stable no new issues cx report noted - Current Medication List Current Medications: Active Medications Acetaminophen (Tylenol -) 650 mg PO Q4H PRN PRN Reason: PAIN LEVEL 1-5 Diphenhydramine HCl (Benadryl -) 50 mg PO TID PRN PRN Reason: ALLERGIES Duloxetine HCl (Cymbalta -) 30 mg PO BID [facility] Last Admin: 07/30/19 10:38 Dose: 30 mg Fentanyl (Sublimaze Injection -) 25 mcg IVPUSH [id number] PRN PRN Reason: PAIN-PACU ORDER X 4 DOSES ONLY Heparin Sodium (Porcine) (Heparin -) 5,000 unit SQ TID [facility] Last Admin: 07/30/19 06:33 Dose: 5,000 unit Sodium Chloride (Normal Saline -) 1,000 mls @ 75 mls/hr IV ASDIR [facility] Last Admin: 07/30/19 01:19 Dose: 75 mls/hr Meropenem 1 gm/ Dextrose 100 mls @ 200 mls/hr IVPB Q8H-IV [facility] Last Admin: 07/30/19 10:40 Dose: Not Given Ondansetron HCl (Zofran Injection) 4 mg IVPUSH Q6H PRN PRN Reason: NAUSEA AND/OR VOMITING Oxybutynin Chloride (Ditropan -) 5 mg PO TID [facility] Last Admin: 07/30/19 06:33 Dose: 5 mg Oxycodone HCl (Roxicodone -) 30 mg PO Q6H PRN PRN Reason: PAIN LEVEL 7 - 10 Last Admin: 07/30/19 03:39 Dose: 30 mg Oxycodone HCl (Oxycontin -) 20 mg PO BID [facility] Last Admin: 07/30/19 10:39 Dose: 20 mg Pantoprazole Sodium (Protonix -) 40 mg PO DAILY [facility] Last Admin: 07/30/19 10:38 Dose: 40 mg Pregabalin (Lyrica -) 100 mg PO TID [facility] Last Admin: 07/30/19 06:33 Dose: 100 mg Senna/Docusate Sodium (Pericolace -) 2 tablet PO BID [facility] Last Admin: 07/30/19 10:39 Dose: 2 tablet - Objective Vital Signs: Vital Signs Temperature 98 F 07/30/19 10:00 Pulse Rate 99 H 07/30/19 10:00 Respiratory Rate 20 07/30/19 10:00 Blood Pressure 135/74 07/30/19 10:00 O2 Sat by Pulse Oximetry (%) 95 07/30/19 09:00 Constitutional: Yes: No Distress, Calm Cardiovascular: Yes: S1, S2 Respiratory: Yes: Regular, CTA Bilaterally Gastrointestinal: Yes: Normal Bowel Sounds, Soft Musculoskeletal: Yes: WNL Extremities: Yes: Other Neurological: Yes: Alert, Oriented Psychiatric: Yes: Alert, Oriented Labs: CBC, BMP 07/30/19 08:45 07/30/19 08:45 INR, PTT INR 0.97 (0.83-1.09) 07/23/19 09:56 Assessment/Plan 64 year old female with Pmh of left total hip arthroplasty s/p washouts and wound vac due to chronic left wound ulcers, recurrent wound infections with resistant organisms, osteoarthritis, SLE, HTN, anxiety, overactive bladder who presented to the ED with worsening left hip pain and drainage. admitted for left hip wound infection s/p missed washout appointment Problem List - Problems (1) Wound, open, hip or thigh Code(s): [id number] - (2) Anemia Code(s): D64.9 - ANEMIA, UNSPECIFIED (3) Chronic pain Code(s): G89.29 - OTHER CHRONIC PAIN (4) Depression Code(s): F32.9 - MAJOR DEPRESSIVE DISORDER, SINGLE EPISODE, UNSPECIFIED (5) HTN (hypertension) Code(s): I10 - ESSENTIAL (PRIMARY) HYPERTENSION Assessment/Plan Lt hip wound infection s/p washout Hx of Lt KASH with recurrent wound infections/debridements cx reports noted if normal can stop all abx
[2019-07-30] MEDS ORDERED: ONDANSETRON 4 MG TABLET PO PRN (11:43)
--- NOTE | 2019-07-30 14:41 | PN ---
Physical Exam: SUBJECTIVE: Patient seen and examined in the morning. No acute events overnight. Today is POD #1 after delayed closure. No complaints of chest pain, shortness of breath, abdominal pain, nausea, vomiting, diarrhea. Complains of chronic pain. OBJECTIVE: Vital Signs Period Temp Pulse Resp BP Sys/Vargas Pulse Ox Last 24 Hr 98 F-99.2 F 85-112 12-20 110-160/53-85 93-100 GENERAL: The patient is tired and in no acute distress. HEAD: Normal with no signs of trauma. LUNGS: Breath sounds equal, clear to auscultation bilaterally, no wheezes. HEART: Regular rate and rhythm, S1, S2 without murmur, rub or gallop. ABDOMEN: Soft, nontender, nondistended, normoactive bowel sounds. EXTREMITIES: 2+ pulses, warm, well-perfused, no edema. Dressing in place in left hip. No discharge or bleeding observed. SKIN: Warm, dry, normal turgor, no rashes or lesions noted Laboratory Results - last 24 hr 07/30/19 07/30/19 08:45 08:45 WBC 7.9 RBC 4.44 Hgb 10.3 L Hct 32.6 MCV 73.5 L MCH 23.2 L MCHC 31.6 L RDW 18.2 H Plt Count 338 MPV 7.4 L Absolute Neuts (auto) 5.2 Neutrophils % 65.1 Lymphocytes % 20.8 Monocytes % 5.6 Eosinophils % 8.0 H Basophils % 0.5 Nucleated RBC % 0 Sodium 136 Potassium 4.2 Chloride 105 Carbon Dioxide 26 Anion Gap 5 L BUN 19.6 H Creatinine 0.9 Est GFR (CKD-EPI)AfAm 78.32 Est GFR (CKD-EPI)NonAf 67.57 Random Glucose 93 Calcium 8.8 Total Bilirubin 0.1 L AST 16 ALT 17 Alkaline Phosphatase 128 H Total Protein 7.3 Albumin 3.1 L Active Medications Generic Name Dose Route Start Last Admin Trade Name Freq PRN Reason Stop Dose Admin Acetaminophen 650 mg 07/23/19 06:20 Tylenol - PO Q4H PRN PAIN LEVEL 1-5 Diphenhydramine HCl 50 mg 07/29/19 13:01 Benadryl - PO TID PRN ALLERGIES Duloxetine HCl 30 mg 07/23/19 22:00 07/30/19 10:38 Cymbalta - PO 30 mg BID ELKE Administration Heparin Sodium (Porcine) 5,000 unit 07/23/19 06:00 07/30/19 14:01 Heparin - SQ 5,000 unit TID ELKE Administration Ondansetron HCl 4 mg 07/30/19 11:43 Zofran - PO Q6H PRN NAUSEA Oxybutynin Chloride 5 mg 07/23/19 14:00 07/30/19 13:55 Ditropan - PO 5 mg TID ELKE Administration Oxycodone HCl 30 mg 07/23/19 16:59 07/30/19 11:56 Roxicodone - PO 30 mg Q6H PRN Administration PAIN LEVEL 7 - 10 Oxycodone HCl 20 mg 07/24/19 13:30 07/30/19 10:39 Oxycontin - PO 20 mg BID ELKE Administration Pantoprazole Sodium 40 mg 07/24/19 10:00 07/30/19 10:38 Protonix - PO 40 mg DAILY ELKE Administration Pregabalin 100 mg 07/23/19 14:00 07/30/19 13:58 Lyrica - PO 100 mg TID ELKE Administration Senna/Docusate Sodium 2 tablet 07/23/19 22:00 07/30/19 10:39 Pericolace - PO 2 tablet BID ELKE Administration ASSESSMENT/PLAN: 64 F with PMH of left total hip arthorplasty s/p washouts and wound vac with 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 1)Hip Drainage -Delayed closure completed. Patient had drainage of the wound, but dressing is being monitored and replaced. -Meronpenem discontinued. -Vancomycin discontinued -Patient had washout completed. -Cultures negative. -Ortho consulted, appreciate recs -ID consulted, appreciate recs 2)Chronic pain -Oxycontin 20 mg BID -Oxycodone 30 mg Q6H PRN -Pregabalin 100 mg PO TID -Duloxetine 30 mg PO BID -Pain Management consulted, appreciate recs DVT: SCDs F:No fluids. E:Monitor BMP N:Regular Diet Dispo: Admitted to medicine Visit type - Emergency Visit Emergency Visit: Yes ED Registration Date: 07/22/19 Care time: The patient presented to the Emergency Department on the above date and was hospitalized for further evaluation of their emergent condition. - New Patient This patient is new to me today: No - Critical Care Critical Care patient: No ATTENDING PHYSICIAN STATEMENT I saw and evaluated the patient. I reviewed the resident's note and discussed the case with the resident. I agree with the resident's findings and plan as documented. SUBJECTIVE: OBJECTIVE: ASSESSMENT AND PLAN:
--- NOTE | 2019-07-30 19:50 | PN ---
Progress Note (short form) - Note Progress Note: 64F s/p I&D left hip wound with delayed primary wound closure POD #1. Deep cavity persists. No purulence seen. -Pain control. -DVT PPx: -Chemical: ASA 81mg PO qD. -Mechanical: SOUTH's, SCD's. -Incentive spirometry q15 min. -PT/OT/Rehab, OOB. -WBAT RLE; NWB LLE. -f/u post-op TOV: 8 hours max. -Diet as tolerated. -Care per medical hospitalist & ID teams. -f/u pain management recommendations: Dr. Elliot Garcia. -Discharge planning: rehab VS home w/services; [facility]; call for appointment; [phone]. -Social problem Cannot go out yet Wound Change dry dressings as needed. Expected drainage due to deep cavity. Albert Moya MD (Orthopaedic Surgery).
[2019-07-30] MEDS: diphenhydrAMINE HCL 25 MG CAPSULE (FP) PO PRN (21:18)
[2019-07-31] MEDS: oxyCODONE HCL 5 MG TABLET PO PRN ×2 (01:10→23:40)
[2019-07-31] MEDS: OXYBUTYNIN CHLORIDE 5 MG TABLET PO SCH ×3 (06:45→22:32)
[2019-07-31] MEDS: PREGABALIN 100 MG CAPSULE PO SCH ×3 (06:45→22:32)
[2019-07-31] MEDS: HEPARIN NA (PORCINE) 5,000 UNITS/ML 1ML VIAL SQ SCH ×3 (06:45→22:30)
[2019-07-31] MEDS ORDERED: PT OWN MED DRAWER 7, Y5N ONE ×2 (10:16→14:57)
[2019-07-31] MEDS: SENNOSIDES/DOCUSATE COMBO (SENNA PLUS) TABLET (UD) PO SCH ×2 (10:17→22:32)
[2019-07-31] MEDS: oxyCODONE HCL 20 MG SUSTAINED ACTING TABLET PO SCH (10:18)
[2019-07-31] MEDS: PANTOPRAZOLE 40 MG TABLET (FP) PO SCH (10:18)
[2019-07-31] MEDS: DULoxetine HCL 30 MG CAPSULE.DR PO SCH ×2 (10:19→22:32)
--- NOTE | 2019-07-31 10:32 | PN ---
Progress Note, Physician History of Present Illness: stable no new issues - Current Medication List Current Medications: Active Medications Acetaminophen (Tylenol -) 650 mg PO Q4H PRN PRN Reason: PAIN LEVEL 1-5 Last Admin: 07/30/19 21:19 Dose: 650 mg Diphenhydramine HCl (Benadryl -) 50 mg PO TID PRN PRN Reason: ALLERGIES Last Admin: 07/30/19 21:18 Dose: 50 mg Duloxetine HCl (Cymbalta -) 30 mg PO BID [facility] Last Admin: 07/31/19 10:19 Dose: 30 mg Heparin Sodium (Porcine) (Heparin -) 5,000 unit SQ TID [facility] Last Admin: 07/31/19 06:45 Dose: 5,000 unit Ondansetron HCl (Zofran -) 4 mg PO Q6H PRN PRN Reason: NAUSEA Oxybutynin Chloride (Ditropan -) 5 mg PO TID [facility] Last Admin: 07/31/19 06:45 Dose: 5 mg Oxycodone HCl (Roxicodone -) 30 mg PO Q6H PRN PRN Reason: PAIN LEVEL 7 - 10 Last Admin: 07/31/19 01:10 Dose: 30 mg Oxycodone HCl (Oxycontin -) 20 mg PO BID [facility] Last Admin: 07/31/19 10:18 Dose: 20 mg Pantoprazole Sodium (Protonix -) 40 mg PO DAILY [facility] Last Admin: 07/31/19 10:18 Dose: 40 mg Pregabalin (Lyrica -) 100 mg PO TID [facility] Last Admin: 07/31/19 06:45 Dose: 100 mg Senna/Docusate Sodium (Pericolace -) 2 tablet PO BID [facility] Last Admin: 07/31/19 10:17 Dose: Not Given - Objective Vital Signs: Vital Signs Temperature 98.3 F 07/31/19 05:00 Pulse Rate 81 07/31/19 05:00 Respiratory Rate 20 07/31/19 05:00 Blood Pressure 150/75 07/31/19 05:00 O2 Sat by Pulse Oximetry (%) 95 07/30/19 22:51 Constitutional: Yes: No Distress, Calm Cardiovascular: Yes: S1, S2 Respiratory: Yes: Regular, CTA Bilaterally Gastrointestinal: Yes: Normal Bowel Sounds, Soft Musculoskeletal: Yes: WNL Extremities: Yes: Other Wound/Incision: Yes: Dressing Dry and Intact Neurological: Yes: Alert, Oriented Psychiatric: Yes: Alert, Oriented Labs: CBC, BMP 07/30/19 08:45 07/30/19 08:45 INR, PTT INR 0.97 (0.83-1.09) 07/23/19 09:56 Assessment/Plan 64 year old female with Pmh of left total hip arthroplasty s/p washouts and wound vac due to chronic left wound ulcers, recurrent wound infections with resistant organisms, osteoarthritis, SLE, HTN, anxiety, overactive bladder who presented to the ED with worsening left hip pain and drainage. admitted for left hip wound infection s/p missed washout appointment Problem List - Problems (1) Wound, open, hip or thigh Code(s): EGH0153 - (2) Anemia Code(s): D64.9 - ANEMIA, UNSPECIFIED (3) Chronic pain Code(s): G89.29 - OTHER CHRONIC PAIN (4) Depression Code(s): F32.9 - MAJOR DEPRESSIVE DISORDER, SINGLE EPISODE, UNSPECIFIED (5) HTN (hypertension) Code(s): I10 - ESSENTIAL (PRIMARY) HYPERTENSION Assessment/Plan Lt hip wound infection s/p washout Hx of Lt KASH with recurrent wound infections/debridements plan wound care rest as per the team
--- NOTE | 2019-07-31 13:39 | PN ---
Progress Note (short form) - Note Progress Note: 64F s/p I&D left hip wound with delayed primary wound closure POD #2. (+) Drowsiness due to administration of Benadryl for left thigh itching. Pain well controlled. No acute events overnight. Pt. denies overnight history of headaches, chest pain, shortness of breath, nausea, vomiting, chills, & sweats. (+) Voiding; (+) Flatus; (-) BM. All labs and vitals reviewed. PE: AAO x 3, NAD. L-Hip: Incision, dressing C/D/I. (+) Excoriations with bleeding abrasions from scratching dry melvin-incisional skin. NV at baseline B/L LE. 64F s/p I&D left hip wound with delayed primary wound closure POD #2. -Pain control. -DVT PPx: -Mechanical only: SOUTH's, SCD's. -Chemical: ASA 81mg PO qD. -Incentive spirometry q15 min. -PT/OT/Rehab, OOB. -WBAT RLE; NWB LLE. -Diet as tolerated. -Care per medical hospitalist & ID teams. -f/u pain management recommendations: Dr. Elliot Garcia. -Discharge planning: home w/VNS & wound care services; f/u 7-10 days after rehab discharge at [facility] office; call for appointment; . -Will follow. Gelacio Moya MD (Orthopaedic Surgery).
[2019-07-31] MEDS ORDERED: oxyCODONE HCL 5 MG TABLET PO PRN (16:55)
--- NOTE | 2019-07-31 17:45 | PN ---
Physical Exam: SUBJECTIVE: Patient seen and examined in the morning. No acute events overnight. No complaints of chest pain, abdominal pain, dysuria, constipation, hematuria, nausea, vomiting, shortness of breath. OBJECTIVE: Vital Signs Period Temp Pulse Resp BP Sys/Vargas Pulse Ox Last 24 Hr 98.1 F-99 F 81-106 20-20 120-159/71-86 95 GENERAL: The patient is tired and in no acute distress. HEAD: Normal with no signs of trauma. LUNGS: Breath sounds equal, clear to auscultation bilaterally, no wheezes. HEART: Regular rate and rhythm, S1, S2 without murmur, rub or gallop. ABDOMEN: Soft, nontender, nondistended, normoactive bowel sounds. EXTREMITIES: 2+ pulses, warm, well-perfused, no edema. Dressing in place in left hip. No discharge or bleeding observed. Wound is dry and no drainage upon exam. Sutures are in place. SKIN: Warm, dry, normal turgor, no rashes or lesions noted Active Medications Generic Name Dose Route Start Last Admin Trade Name Freq PRN Reason Stop Dose Admin Acetaminophen 650 mg 07/23/19 06:20 07/30/19 21:19 Tylenol - PO 650 mg Q4H PRN Administration PAIN LEVEL 1-5 Bacitracin 1 applic 07/31/19 22:00 Bacitracin - TP BID ELKE Diphenhydramine HCl 50 mg 07/29/19 13:01 07/30/19 21:18 Benadryl - PO 50 mg TID PRN Administration ALLERGIES Duloxetine HCl 30 mg 07/23/19 22:00 07/31/19 10:19 Cymbalta - PO 30 mg BID ELKE Administration Heparin Sodium (Porcine) 5,000 unit 07/23/19 06:00 07/31/19 15:02 Heparin - SQ 5,000 unit TID ELKE Administration Ondansetron HCl 4 mg 07/30/19 11:43 Zofran - PO Q6H PRN NAUSEA Oxybutynin Chloride 5 mg 07/23/19 14:00 07/31/19 15:01 Ditropan - PO 5 mg TID ELKE Administration Oxycodone HCl 5 mg 07/31/19 16:55 Roxicodone - PO Q6H PRN PAIN LEVEL 7 - 10 Pantoprazole Sodium 40 mg 07/24/19 10:00 07/31/19 10:18 Protonix - PO 40 mg DAILY ELKE Administration Pregabalin 100 mg 07/23/19 14:00 07/31/19 15:01 Lyrica - PO 100 mg TID ELKE Administration Senna/Docusate Sodium 2 tablet 07/23/19 22:00 07/31/19 10:17 Pericolace - PO Not Given BID [facility] ASSESSMENT/PLAN: 64 F with PMH of left total hip arthorplasty s/p washouts and wound vac with 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 1)Hip Drainage -Delayed closure completed. Patient had drainage of the wound, but dressing is being monitored and replaced. Drainage is normal as per surgeon. -Meronpenem discontinued. -Vancomycin discontinued -Preliminary culture shows Group D strep growing or enterococus faecalis. Spoke with ID, possibly being discharged on Augmentin tomorrow. Pending final cultures. -Patient had washout completed. -Cultures negative. -Ortho consulted, appreciate recs -ID consulted, appreciate recs 2)Chronic pain -Oxycodone 5 mg Q6H PRN -Pregabalin 100 mg PO TID -Duloxetine 30 mg PO BID -Pain Management consulted, appreciate recs DVT: Heparin 5000 unit TID F:No fluids. E:Monitor BMP N:Regular Diet Dispo: Admitted to medicine Visit type - Emergency Visit Emergency Visit: Yes ED Registration Date: 07/22/19 Care time: The patient presented to the Emergency Department on the above date and was hospitalized for further evaluation of their emergent condition. - New Patient This patient is new to me today: No - Critical Care Critical Care patient: No ATTENDING PHYSICIAN STATEMENT I saw and evaluated the patient. I reviewed the resident's note and discussed the case with the resident. I agree with the resident's findings and plan as documented. SUBJECTIVE: OBJECTIVE: ASSESSMENT AND PLAN:
--- NOTE | 2019-07-31 18:07 | PN ---
Teaching Attending Note Name of Resident: Martha Brewer ATTENDING PHYSICIAN STATEMENT I saw and evaluated the patient. I reviewed the resident's note and discussed the case with the resident. I agree with the resident's findings and plan as documented. SUBJECTIVE: patient is lethargic to answer any questions has itching over L hip OBJECTIVE: sleeping , lethargic when awoken. CV : RRR Lungs: CATB Ext : No edema on legs. L LE is shorter than R. L hip with stitches over a wound with bleeding at the level of the last stitch ( patient itching and picking on it ) No surrounding erythema ASSESSMENT AND PLAN: Unfortunate 64 y/o lady with h/p L hip replacement in 2017 with a prolonged complicated course with wound infections, I&D, vac, Abx courses, and hospitalizations. She also has depression , anxiety , opioids dependence , and HTN who presented with drainage from L hip 1- L hip infected wound: s/p I&D and then closure - wound cx with group D strep - d/w ID and Recs are to start Augmentin , and wait fr sensitivity - dc oxycontina nd change oxycodone to 5 mg q 6hr due to lethargy 2- neuropathy, and depression : cont cymbalta and lyrica 3- DVT PX : heparin , and SCDS HLOC pending wound cx final results
[2019-07-31] MEDS: AMOX TR/POT CLAV 875MG/125MG TABLETS (FP) PO SCH (18:20)
[2019-07-31] MEDS: BACITRACIN 15 GM TUBE TOPICAL OINTMENT TP SCH (22:33)
[2019-08-01] MEDS: HEPARIN NA (PORCINE) 5,000 UNITS/ML 1ML VIAL SQ SCH ×3 (05:43→22:04)
[2019-08-01] MEDS: PREGABALIN 100 MG CAPSULE PO SCH ×3 (05:44→22:04)
[2019-08-01] MEDS: OXYBUTYNIN CHLORIDE 5 MG TABLET PO SCH ×3 (05:44→22:04)
[2019-08-01] MEDS: oxyCODONE HCL 5 MG TABLET PO PRN (05:45)
[2019-08-01] MEDS: AMOX TR/POT CLAV 875MG/125MG TABLETS (FP) PO SCH ×2 (08:31→17:18)
--- NOTE | 2019-08-01 09:00 | PN ---
Progress Note, Physician History of Present Illness: patient stable no new issues - Current Medication List Current Medications: Active Medications Acetaminophen (Tylenol -) 650 mg PO Q4H PRN PRN Reason: PAIN LEVEL 1-5 Last Admin: 07/30/19 21:19 Dose: 650 mg Amoxicillin/Clavulanate Potassium (Augmentin - 875mg Tablet) 1 tab PO BID@0800, 1730 [facility] Last Admin: 08/01/19 08:31 Dose: 1 tab Bacitracin (Bacitracin -) 1 applic TP BID [facility] Last Admin: 07/31/19 22:33 Dose: 1 applic Diphenhydramine HCl (Benadryl -) 50 mg PO TID PRN PRN Reason: ALLERGIES Last Admin: 07/30/19 21:18 Dose: 50 mg Duloxetine HCl (Cymbalta -) 30 mg PO BID [facility] Last Admin: 07/31/19 22:32 Dose: 30 mg Heparin Sodium (Porcine) (Heparin -) 5,000 unit SQ TID [facility] Last Admin: 08/01/19 05:43 Dose: 5,000 unit Ondansetron HCl (Zofran -) 4 mg PO Q6H PRN PRN Reason: NAUSEA Oxybutynin Chloride (Ditropan -) 5 mg PO TID [facility] Last Admin: 08/01/19 05:44 Dose: 5 mg Oxycodone HCl (Roxicodone -) 10 mg PO Q6H PRN PRN Reason: PAIN LEVEL 7 - 10 Last Admin: 08/01/19 05:45 Dose: 10 mg Pantoprazole Sodium (Protonix -) 40 mg PO DAILY [facility] Last Admin: 07/31/19 10:18 Dose: 40 mg Pregabalin (Lyrica -) 100 mg PO TID [facility] Last Admin: 08/01/19 05:44 Dose: 100 mg Senna/Docusate Sodium (Pericolace -) 2 tablet PO BID [facility] Last Admin: 07/31/19 22:32 Dose: 2 tablet - Objective Vital Signs: Vital Signs Temperature 99.2 F 08/01/19 05:00 Pulse Rate 121 H 08/01/19 05:00 Respiratory Rate 20 08/01/19 05:00 Blood Pressure 158/94 08/01/19 05:00 O2 Sat by Pulse Oximetry (%) 95 07/30/19 22:51 Constitutional: Yes: No Distress, Calm Cardiovascular: Yes: S1, S2 Respiratory: Yes: Regular, CTA Bilaterally Gastrointestinal: Yes: Normal Bowel Sounds, Soft Musculoskeletal: Yes: WNL Extremities: Yes: WNL Wound/Incision: Yes: Dressing Dry and Intact Neurological: Yes: Alert, Oriented Psychiatric: Yes: Alert, Oriented Labs: CBC, BMP 07/30/19 08:45 07/30/19 08:45 INR, PTT INR 0.97 (0.83-1.09) 07/23/19 09:56 Assessment/Plan 64 year old female with Pmh of left total hip arthroplasty s/p washouts and wound vac due to chronic left wound ulcers, recurrent wound infections with resistant organisms, osteoarthritis, SLE, HTN, anxiety, overactive bladder who presented to the ED with worsening left hip pain and drainage. admitted for left hip wound infection s/p missed washout appointment Problem List - Problems (1) Wound, open, hip or thigh Code(s): [id number] - (2) Anemia Code(s): D64.9 - ANEMIA, UNSPECIFIED (3) Chronic pain Code(s): G89.29 - OTHER CHRONIC PAIN (4) Depression Code(s): F32.9 - MAJOR DEPRESSIVE DISORDER, SINGLE EPISODE, UNSPECIFIED (5) HTN (hypertension) Code(s): I10 - ESSENTIAL (PRIMARY) HYPERTENSION Assessment/Plan Lt hip wound infection s/p washout Hx of Lt KASH with recurrent wound infections/debridements plan wound care rest as per the team cx results noted we can send patient home on linzeoloid 600 mg po bid for 2 weeks
[2019-08-01 09:12] LABS: BASO % 0.6 % (0-2.0); HEMATOCRIT 33.1 % (32.4-45.2); HEMOGLOBIN 10.5 GM/dL (10.7-15.3); LYMPH % 22.3 % (8-40); MCH 23.3 pg (25.7-33.7); MCHC 31.6 g/dl (32.0-36.0); MEAN CELL VOLUME 73.8 fl (80-96); MEAN PLT VOLUME 7.6 fl (7.5-11.1); MONO % 6.1 % (3.8-10.2); PLATELET COUNT 357 K/MM3 (134-434); RBC 4.49 M/mm3 (3.60-5.2); RDW 18.3 % (11.6-15.6)
[2019-08-01] MEDS ORDERED: oxyCODONE HCL 5 MG TABLET PO SCH (10:00)
[2019-08-01] MEDS ORDERED: PT OWN MED DRAWER 7, Y5N ONE (10:06)
[2019-08-01] MEDS: DULoxetine HCL 30 MG CAPSULE.DR PO SCH ×2 (10:20→22:04)
[2019-08-01] MEDS: SENNOSIDES/DOCUSATE COMBO (SENNA PLUS) TABLET (UD) PO SCH ×2 (10:20→22:04)
[2019-08-01] MEDS: PANTOPRAZOLE 40 MG TABLET (FP) PO SCH (10:20)
[2019-08-01] MEDS: oxyCODONE HCL 5 MG TABLET PO SCH ×2 (10:21→17:18)
[2019-08-01] MEDS: BACITRACIN 15 GM TUBE TOPICAL OINTMENT TP SCH ×3 (13:34→22:04)
--- NOTE | 2019-08-01 14:29 | PN ---
Teaching Attending Note Name of Resident: Martin Khan ATTENDING PHYSICIAN STATEMENT I saw and evaluated the patient. I reviewed the resident's note and discussed the case with the resident. I agree with the resident's findings and plan as documented. SUBJECTIVE: No fever or chills. No pain OBJECTIVE: Ext : No edema on legs. L LE is shorter than R. L hip with stitches over a wound No surrounding erythema ASSESSMENT AND PLAN: Unfortunate 64 y/o lady with h/p L hip replacement in 2017 with a prolonged complicated course with wound infections, I&D, vac, Abx courses, and hospitalizations. She also has depression , anxiety , opioids dependence , and HTN who presented with drainage from L hip 1- L hip infected wound: s/p I&D and then closure - wound cx with VRE. d/w ID , start linezolide for 2 weeks - f/u with ortho as outp t - any pain meds can be prescribed as outpt by dr. Moya 2- neuropathy, and depression : cont cymbalta and lyrica dc home . She declined VNS
--- NOTE | 2019-08-01 18:32 | DS ---
Physical Exam: SUBJECTIVE: Patient seen and examined in the morning. No acute events overnight. No complaints of chest pain, abdominal pain, dysuria, constipation, hematuria, nausea, vomiting, shortness of breath. OBJECTIVE: Vital Signs Period Temp Pulse Resp BP Sys/Vargas Pulse Ox Last 24 Hr 98.3 F-99.2 F 91-121 20-20 144-161/76-101 PHYSICAL EXAM GENERAL: The patient is tired and in no acute distress. HEAD: Normal with no signs of trauma. LUNGS: Breath sounds equal, clear to auscultation bilaterally, no wheezes. HEART: Regular rate and rhythm, S1, S2 without murmur, rub or gallop. ABDOMEN: Soft, nontender, nondistended, normoactive bowel sounds. EXTREMITIES: 2+ pulses, warm, well-perfused, no edema. Dressing in place in left hip. No discharge or bleeding observed. Wound is dry and no drainage upon exam. Sutures are in place. SKIN: Warm, dry, normal turgor, no rashes or lesions noted LABS Laboratory Results - last 24 hr 08/01/19 07:15 WBC 8.0 RBC 4.49 Hgb 10.5 L Hct 33.1 MCV 73.8 L MCH 23.3 L MCHC 31.6 L RDW 18.3 H Plt Count 357 MPV 7.6 Absolute Neuts (auto) 4.7 Neutrophils % 59.0 Lymphocytes % 22.3 Monocytes % 6.1 Eosinophils % 12.0 H Basophils % 0.6 Nucleated RBC % 0 Microbiology 07/29/19 12:42 Hip - Left Gram Stain - Final 07/29/19 12:42 Hip - Left Wound Culture - Final Vr Ec Faecium 07/23/19 05:00 Blood - Peripheral Venous Blood Culture - Final NO GROWTH AFTER 5 DAYS INCUBATION 07/23/19 05:00 Blood - Peripheral Venous Blood Culture - Final NO GROWTH AFTER 5 DAYS INCUBATION 07/22/19 22:10 Blood - Peripheral Venous Blood Culture - Final NO GROWTH AFTER 5 DAYS INCUBATION 07/22/19 22:10 Blood - Peripheral Venous Blood Culture - Final NO GROWTH AFTER 5 DAYS INCUBATION 07/24/19 20:20 Hip - Left Gram Stain - Final 07/24/19 20:20 Hip - Left Wound Culture - Final NO GROWTH AFTER 48 HOURS INCUBATION 07/22/19 21:41 Thigh - Left Gram Stain - Final 07/22/19 21:41 Thigh - Left Wound Culture - Final Diphtheroid/Corynebacterium HOSPITAL COURSE: Date of Admission:07/22/19 Date of Discharge: 08/01/19 64 F with PMH of left total hip arthroplasty s/p washouts and wound vac with 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 Patient had washout on day 2 of admission. Patient was on wound vac afterwards. On day 7 of admission patient had delayed closure of wound. Patient had cultures that were contaminated from initial surgery, and then culture from second operation was VRE Faecium. Patient discharged on Linezolid 600 mg PO BID and follow up with orthopedic surgeon. Minutes to complete discharge: 35 Discharge Summary Problems reviewed: Yes Reason For Visit: CHRONIC WOUND OF EXTERMITY,INFECTION OF LOWER Current Active Problems Infection of lower extremity associated with hardware (Chronic) Wound, open, hip or thigh (Chronic) Condition: Stable - Instructions Diet, Activity, Other Instructions: You were admitted to the hospital because you needed a washout of your wound in your left hip. While you were here the surgeon performed a wash out of the wound , and then closed your wound. For an infection of your wound you will continue to take antibiotics after discharge. Please take the following:: Linezolid 600 mg, by mouth, every 12 hours for 2 weeks. Please follow up with Dr. Moya within 7-10 days. Please follow up with your primary care physician within a week. Please return to the Emergency Department if you have bleeding from your wound, fevers, chest pain, shortness of breath, abdominal pain, or worsening of your symptoms. you need CBC in 1 week . fausto ask your primary doctor to order Please change your dressing according to the following instructions: Removing the Old Dressing Follow these steps to remove your dressing: Wash your hands thoroughly with soap and warm water before and after each dressing change. Put on a pair of non-sterile gloves. Carefully remove the tape. Remove the old dressing. If it is sticking to your skin, wet it with warm water to loosen it. Remove the gauze pads or packing tape from inside your wound. Put the old dressing, packing material, and your gloves in a plastic bag. Set the bag aside. Cleaning Your Wound Follow these steps to clean your wound: Put on a new pair of non-sterile gloves. Use a clean, soft washcloth to gently clean your wound with warm water and soap. Your wound should not bleed much when you are cleaning it. A small amount of blood is OK. Rinse your wound with water. Gently pat it dry with a clean towel. DO NOT rub it dry. In some cases, you can even rinse the wound while showering. Check the wound for increased redness, swelling, or a bad odor. Pay attention to the color and amount of drainage from your wound. Look for drainage that has become darker or thicker. After cleaning your wound, remove your gloves and put them in the plastic bag with the old dressing and gloves. Wash your hands again. Changing Your Dressing Follow these steps to put a new dressing on: Put on a new pair of non-sterile gloves. Pour saline into a clean bowl. Place gauze pads and any packing tape you will use in the bowl. Squeeze the saline from the gauze pads or packing tape until it is no longer dripping. Place the gauze pads or packing tape on your wound. Cover the wet gauze or packing tape with a large dry dressing pad. Use tape or rolled gauze to hold this dressing in place. Put all used supplies in the plastic bag. Close it securely, then put it in a second plastic bag, and close that bag securely. Put it in the trash. Wash your hands again when you are finished. Referrals: [facility] [place] [Provider Group] Kinga Munoz MD [Staff Physician] - 2 Weeks Albert Moya MD [Staff Physician] - Disposition: HOME - Home Medications Comprehensive Discharge Medication List: Ambulatory Orders Omeprazole 40 mg PO DAILY 08/24/18 Oxybutynin Chloride 5 mg PO TID 08/24/18 Duloxetine HCl [Cymbalta] 30 mg PO BID 15 Days #30 capsule. 03/19/19 Pregabalin [Lyrica] 100 mg PO TID #30 capsule MDD 3 03/19/19 Oxycodone HCl 30 mg PO Q4H PRN 3 Days #10 tablet MDD 6 04/09/19 Sennosides/Docusate Sodium [Pericolace -] 2 tablet PO BID tablet 05/01/19 Fluconazole 200 mg PO DAILY 11/05/19 Oxycodone HCl [Oxycodone HCl ER] 80 mg PO TID 07/23/19 Linezolid 600 mg PO BID 14 Days #28 tablet 08/01/19 This patient is new to me today: No Emergency Visit: Yes ED Registration Date: 07/22/19 Care time: The patient presented to the Emergency Department on the above date and was hospitalized for further evaluation of their emergent condition. Critical Care patient: No - Discharge Referral Referred to [facility] Med P.C.: No ATTENDING PHYSICIAN STATEMENT I saw and evaluated the patient. I reviewed the resident's note and discussed the case with the resident. I agree with the resident's findings and plan as documented. SUBJECTIVE: OBJECTIVE: ASSESSMENT AND PLAN:
[2019-08-02] MEDS: diphenhydrAMINE HCL 25 MG CAPSULE (FP) PO PRN (03:06)
[2019-08-02] MEDS: oxyCODONE HCL 5 MG TABLET PO PRN ×3 (03:06→13:30)
[2019-08-02] MEDS: HEPARIN NA (PORCINE) 5,000 UNITS/ML 1ML VIAL SQ SCH ×2 (06:16→13:28)
[2019-08-02] MEDS: PREGABALIN 100 MG CAPSULE PO SCH ×2 (06:16→13:28)
[2019-08-02] MEDS: OXYBUTYNIN CHLORIDE 5 MG TABLET PO SCH ×2 (06:16→13:28)
[2019-08-02] MEDS: DULoxetine HCL 30 MG CAPSULE.DR PO SCH (09:17)
[2019-08-02] MEDS: AMOX TR/POT CLAV 875MG/125MG TABLETS (FP) PO SCH (09:17)
[2019-08-02] MEDS: SENNOSIDES/DOCUSATE COMBO (SENNA PLUS) TABLET (UD) PO SCH (09:18)
[2019-08-02] MEDS: PANTOPRAZOLE 40 MG TABLET (FP) PO SCH (09:18)
[2019-08-02] MEDS: BACITRACIN 15 GM TUBE TOPICAL OINTMENT TP SCH (09:19)
--- NOTE | 2019-08-02 11:02 | PN ---
Progress Note, Physician History of Present Illness: patient stable no new issues - Current Medication List Current Medications: Active Medications Acetaminophen (Tylenol -) 650 mg PO Q4H PRN PRN Reason: PAIN LEVEL 1-5 Last Admin: 07/30/19 21:19 Dose: 650 mg Amoxicillin/Clavulanate Potassium (Augmentin - 875mg Tablet) 1 tab PO BID@0800, 1730 [facility] Last Admin: 08/02/19 09:17 Dose: 1 tab Bacitracin (Bacitracin -) 1 applic TP BID [facility] Last Admin: 08/02/19 09:19 Dose: 1 applic Diphenhydramine HCl (Benadryl -) 50 mg PO TID PRN PRN Reason: ALLERGIES Last Admin: 08/02/19 03:06 Dose: 50 mg Duloxetine HCl (Cymbalta -) 30 mg PO BID [facility] Last Admin: 08/02/19 09:17 Dose: 30 mg Heparin Sodium (Porcine) (Heparin -) 5,000 unit SQ TID [facility] Last Admin: 08/02/19 06:16 Dose: 5,000 unit Ondansetron HCl (Zofran -) 4 mg PO Q6H PRN PRN Reason: NAUSEA Oxybutynin Chloride (Ditropan -) 5 mg PO TID [facility] Last Admin: 08/02/19 06:16 Dose: 5 mg Oxycodone HCl (Roxicodone -) 10 mg PO Q6H PRN PRN Reason: PAIN LEVEL 7 - 10 Last Admin: 08/02/19 09:18 Dose: 10 mg Pantoprazole Sodium (Protonix -) 40 mg PO DAILY [facility] Last Admin: 08/02/19 09:18 Dose: 40 mg Pregabalin (Lyrica -) 100 mg PO TID [facility] Last Admin: 08/02/19 06:16 Dose: 100 mg Senna/Docusate Sodium (Pericolace -) 2 tablet PO BID [facility] Last Admin: 08/02/19 09:18 Dose: 2 tablet - Objective Vital Signs: Vital Signs Temperature 98 F 08/02/19 07:09 Pulse Rate 95 H 08/02/19 07:09 Respiratory Rate 20 08/02/19 07:09 Blood Pressure 158/85 08/02/19 07:09 O2 Sat by Pulse Oximetry (%) 95 07/30/19 22:51 Constitutional: Yes: No Distress, Calm Cardiovascular: Yes: S1, S2 Respiratory: Yes: Regular, CTA Bilaterally Gastrointestinal: Yes: Normal Bowel Sounds, Soft Musculoskeletal: Yes: WNL Extremities: Yes: WNL Neurological: Yes: Alert, Oriented Psychiatric: Yes: Alert, Oriented Labs: CBC, BMP 08/01/19 07:15 07/30/19 08:45 INR, PTT INR 0.97 (0.83-1.09) 07/23/19 09:56 Assessment/Plan 64 year old female with Pmh of left total hip arthroplasty s/p washouts and wound vac due to chronic left wound ulcers, recurrent wound infections with resistant organisms, osteoarthritis, SLE, HTN, anxiety, overactive bladder who presented to the ED with worsening left hip pain and drainage. admitted for left hip wound infection s/p missed washout appointment Problem List - Problems (1) Wound, open, hip or thigh Code(s): QDV5670 - (2) Anemia Code(s): D64.9 - ANEMIA, UNSPECIFIED (3) Chronic pain Code(s): G89.29 - OTHER CHRONIC PAIN (4) Depression Code(s): F32.9 - MAJOR DEPRESSIVE DISORDER, SINGLE EPISODE, UNSPECIFIED (5) HTN (hypertension) Code(s): I10 - ESSENTIAL (PRIMARY) HYPERTENSION Assessment/Plan Lt hip wound infection s/p washout Hx of Lt KASH with recurrent wound infections/debridements plan wound care rest as per the team cx results noted we can send patient home on linzeoloid 600 mg po bid for 2 weeks
[2019-08-02 12:17] VITALS: BP 143/76; PULSE 102; TEMP 98.2
--- NOTE | 2019-08-02 13:57 | PN ---
Teaching Attending Note Name of Resident: Martha Brewer ATTENDING PHYSICIAN STATEMENT I saw and evaluated the patient. I reviewed the resident's note and discussed the case with the resident. I agree with the resident's findings and plan as documented. SUBJECTIVE: pt seen and examined. she did not leave yesterday despite being discharged. she claims she has opioid withdrawal sx with diarrhea and sweating. RN did not witness any diarrhea. she also calims she is in severe pain, despite sleeping comfortably in bed when I entered room. exam did not change form yesterday. wound is still closed with stitches and clean she was not happy how the stitches looked , but she refused I contact the surgical team /Dr. Moya to evaluate her wound which looked unchanged to me . she left home shortly after I saw her.
--- NOTE | 2019-08-02 16:02 | PN ---
Physical Exam: SUBJECTIVE: Patient seen and examined in the morning. No acute events overnight. No complaints of chest pain, shortness of breath, abdominal pain, nausea, vomiting, fevers, chills. OBJECTIVE: Vital Signs Period Temp Pulse Resp BP Sys/Vargas Pulse Ox Last 24 Hr 98 F-98.4 F 88-102 20-20 143-158/76-86 GENERAL: The patient is tired and in no acute distress. HEAD: Normal with no signs of trauma. LUNGS: Breath sounds equal, clear to auscultation bilaterally, no wheezes. HEART: Regular rate and rhythm, S1, S2 without murmur, rub or gallop. ABDOMEN: Soft, nontender, nondistended, normoactive bowel sounds. EXTREMITIES: 2+ pulses, warm, well-perfused, no edema. Dressing in place in left hip. No discharge or bleeding observed. Wound is dry and no drainage upon exam. Sutures are in place. SKIN: Warm, dry, normal turgor, no rashes or lesions noted ASSESSMENT/PLAN: Patient was ordered for discharge yesterday, but stayed overnight. Discharged this AM. See D/C summary for plan. Visit type - Emergency Visit Emergency Visit: Yes ED Registration Date: 07/22/19 Care time: The patient presented to the Emergency Department on the above date and was hospitalized for further evaluation of their emergent condition. - New Patient This patient is new to me today: No - Critical Care Critical Care patient: No ATTENDING PHYSICIAN STATEMENT I saw and evaluated the patient. I reviewed the resident's note and discussed the case with the resident. I agree with the resident's findings and plan as documented. SUBJECTIVE: OBJECTIVE: ASSESSMENT AND PLAN:
== END 2019-08-02 14:15 | disposition home or self-care (01) | DRG 902 ==
LOC: JER 19:33 → JERBED 21:43 → J8W 07-23 00:35
PROVIDERS: ADMIT Internal Medicine; ATTEND Internal Medicine
PROC: 0JBM0ZZ Excision of Left Upper Leg Subcutaneous Tissue and Fascia, Open Approach (ICD-10-PCS; principal; 2019-07-24 17:30)
DX: T81.32XA Disruption of internal operation (surgical) wound, not elsewhere classified, initial encounter (principal); T81.42XA Infection following a procedure, deep incisional surgical site, initial encounter; F11.20 Opioid dependence, uncomplicated; R50.9 Fever, unspecified; B95.2 Enterococcus as the cause of diseases classified elsewhere; M32.9 Systemic lupus erythematosus, unspecified; I10 Essential (primary) hypertension; N32.81 Overactive bladder; F41.8 Other specified anxiety disorders; S71.002A Unspecified open wound, left hip, initial encounter; G62.9 Polyneuropathy, unspecified; G89.29 Other chronic pain; B99.8 Other infectious disease; R32 Unspecified urinary incontinence; M54.9 Dorsalgia, unspecified; D63.8 Anemia in other chronic diseases classified elsewhere; R19.7 Diarrhea, unspecified; Y83.8 Other surgical procedures as the cause of abnormal reaction of the patient, or of later complication, without mention of misadventure at the time of the procedure
CPT/HCPCS: 36415; 71045-TC-FY; 80048; 80053; 83735; 84100; 85025; 85610; 85651; 85730; 86140; 86850; 86900; 86901; 87040; 87070; 87077; 87186; 87205; 88304-TC; 93005; 93010; 94760; 99284-25; G0480; J0131; J1644; J7030

== ENCOUNTER → 2019-08-07 | Day surgery (SDC) | payer OTHER ==
[2019-08-06 13:59] VITALS: BMI 27.1
[~2019-08-07] MED LIST changes: +DEXAMETHASONE SOD PHOSPHATE 4 MG/1 ML VIAL ONE; +DULoxetine HCL 30 MG CAPSULE.DR PO SCH; +LACTATED RINGERS SOLUTION 1,000 ML IV SCH; +LIDOCAINE HCL 2% JELLY (5 ML/TUBE) ONE; +LIDOCAINE HCL/PF 2% SDV 5ML VIAL ONE; +LINEZOLID 600 MG TABLET (RESTRICTED TO ID) PO SCH; +MIDAZOLAM HCL 2 MG/2 ML SINGLE DOSE VIAL ONE; +ONDANSETRON 4 MG/2 ML VIAL IVPUSH PRN; +ONDANSETRON 4 MG/2 ML VIAL ONE; +OXYBUTYNIN CHLORIDE 5 MG TABLET PO SCH; +PANTOPRAZOLE 40 MG TABLET (FP) PO SCH; +PATIENT'S OWN MEDICATION (NON-FORMULARY) (Oxycodone Hcl [Oxycodone Hcl] 30 MG) PO PRN; +PREGABALIN 100 MG CAPSULE PO SCH; +PROPOFOL 20 ML ONE; +SENNOSIDES/DOCUSATE COMBO (SENNA PLUS) TABLET (UD) PO PRN; -VANCOMYCIN 1,000 MG VIAL (RESTRICTED TO ID ONLY) IVPB ONE; -ceFAZolin SODIUM 1 GM VIAL IVPB ONE; +ceFAZolin SODIUM 1 GM VIAL ONE; +oxyCODONE HCL 40 MG SUSTAINED ACTING TABLET PO SCH; +oxyCODONE HCL 5 MG TABLET ONE; +oxyCODONE HCL 5 MG TABLET PO ONE; +oxyCODONE HCL 5 MG TABLET PO PRN; +oxyCODONE HCL 80 MG SUSTAINED ACTING TABLET PO SCH
--- NOTE | 2019-08-07 15:32 | PN ---
Progress Note (short form) - Note Progress Note: 64F s/p I&D left hip wound with primary wound closure POD #0. Deep cavity persists. No purulence seen. -Pain control. -DVT PPx: -Chemical: ASA 81mg PO qD. -Mechanical: SOUTH's, SCD's. -Incentive spirometry q15 min. -PT/OT/Rehab, OOB. -WBAT RLE; NWB LLE. -f/u post-op TOV: 8 hours max. -Diet as tolerated. -Care per medical hospitalist & ID teams. -f/u pain management recommendations. -Discharge planning: home w/services; [facility]; call for appointment; . Albert Moya MD (Orthopaedic Surgery).
--- NOTE | 2019-08-07 15:33 | OP ---
Operative Note - Note: Operative Date: 08/07/19 Pre-Operative Diagnosis: Chronic left hip wound Operation: I&D left hip wound with primary wound closure Post-Operative Diagnosis: Same as Pre-op Surgeon: Albert Moya Anesthesiologist/DIRECTOR MEDICAL SAFETY: Blanca Humphrey Anesthesia: General Specimens Removed: Left hip wound culture stick Estimated Blood Loss (mls): 0 Fluid Volume Replaced (mls): 400 (Crystalloid) Operative Report Dictated: Yes
[2019-08-07 18:59] VITALS: BP 144/78; PULSE 74; TEMP 98.3
--- NOTE | 2019-08-07 20:32 | OP ---
DATE OF OPERATION: DATE OF DICTATION: 08/07/2019 PREOPERATIVE DIAGNOSIS: Chronic left hip wound. POSTOPERATIVE DIAGNOSIS: Chronic left hip wound. OPERATION PERFORMED: Incision, drainage, washout, debridement of soft tissue, muscle bone, and delayed primary closure. ANESTHESIA: General. POSITION: Lateral decubitus left side up. ANTIBIOTICS GIVEN: Ancef 2 g. OPERATION DETAILS: The patient was correctly identified, brought in operating room. Left lower extremity was prepped, draped in the routine manner with Betadine scrub solution, wiped off with alcohol, DuraPrep applied. Timeout was called. Patient was placed in lateral decubitus position. All bony points padded appropriately. Using pulse lavage, after sealed draping, the tissues were cleansed with 5 L of saline. Debridement of tissue using a rongeur knife. Anything that was necrotic was resected. Cultures were taken for MCS. Following this, vertical mattress sutures with number 1 PDS closing the superficial tissues. The deep tissues indurated with palpable HO within the tissues and imobile for closure. The deep cavity was prevalent. The treatment plans and options: 1. Continue with delayed primary closure, as the deep cavity closes. 2. Insertion of stem cells to bring on angiogenesis to the tissues. 3. Continue use of a wound VAC that I think at this stage is futile. 4. Local muscle flap or distal muscle flap as in a free flap, but this unfortunately will mutilate her limb more, and I have elected not to do this because of the intensive reconstruction in the future. Plan to continue the course of delayed primary closure. MD OSVALDO Oconnor/[id number] MTDD
== END | disposition home or self-care (01) ==
LOC: FASU 11:47 → EDSTATUS 12:00
PROVIDERS: ATTEND Orthopaedic Surgery Orthopaedic Surgery of the Spine
PROC: 0JBC0ZZ Excision of Pelvic Region Subcutaneous Tissue and Fascia, Open Approach (ICD-10-PCS; principal; 2019-08-07 12:00)
DX: S71.002A Unspecified open wound, left hip, initial encounter (principal); X58.XXXA Exposure to other specified factors, initial encounter; Y93.9 Activity, unspecified; Y92.9 Unspecified place or not applicable
CPT/HCPCS: 87070; 87205; 94760

== ENCOUNTER 2019-08-19 19:41 | Inpatient (IN) | payer OTHER ==
--- NOTE | 2019-08-19 20:53 | PN ---
Progress Note (short form) - Note Progress Note: 64F p/w left hip wound dehiscence now s/p I&D left hip wound with application woundvac POD #0. Deep cavity persists. No purulence seen. Wound Dimensions: Length: 9cm. Width: 3cm. Depth: 6cm. -Pain control. -DVT PPx: -Chemical: ASA 81mg PO qD. -Mechanical: SOUTH's, SCD's. -Incentive spirometry q15 min. -PT/OT/Rehab, OOB. -WBAT RLE; NWB LLE. -f/u post-op TOV: 8 hours max. -Diet as tolerated. -Continue Linezolid; f/u antibiotic rec's as per ID team. -Care per medical hospitalist & ID teams. -Plan to return to OR Monday08/21/2019 for repeat I&D left hip with possible I&D lumbar spine w/re-application woundvac VS delayed primary closure. -Discharge planning: home w/services; f/u 7-10 days after rehab discharge at [facility] [place] office; call for appointment; . Albert Moya MD (Orthopaedic Surgery).
--- NOTE | 2019-08-19 20:59 | OP ---
Operative Note - Note: Operative Date: 08/19/19 Pre-Operative Diagnosis: Deep left hip wound infection. Operation: 1. I&D left hip wound. 2. Application left hip wound vac Post-Operative Diagnosis: Same as Pre-op Surgeon: Albert Moya Hydroelectric Operator: Gelacio Moya Anesthesiologist/FILTER WORKER: Kunal Luna Anesthesia: General Specimens Removed: 2 x deep left hip wound culture sticks Estimated Blood Loss (mls): 0 Drains & Tubes with Location: Woundvac left hip Fluid Volume Replaced (mls): 800 (Crystalloid) Operative Report Dictated: Yes
[2019-08-19] MEDS ORDERED: ceFAZolin SODIUM 1 GM VIAL IVPB ONE (21:32)
[2019-08-19] MEDS ORDERED: ONDANSETRON 4 MG/2 ML VIAL IVPUSH PRN ×2 (22:23→22:25)
[2019-08-19] MEDS ORDERED: MAG HYDROX/AL HYDROX/SIMETH 30 ML UNIT-DOSE CUP PO PRN (22:23)
[2019-08-19] MEDS ORDERED: PROMETHAZINE HCL 25 MG/1 ML VIAL IVPUSH PRN (22:25)
[2019-08-19] MEDS ORDERED: LACTATED RINGERS SOLUTION 1,000 ML IV SCH (22:30)
[2019-08-19] MEDS: LACTATED RINGERS SOLUTION 1,000 ML IV SCH (23:30)
--- NOTE | 2019-08-20 00:19 | PN ---
Teaching Attending Note Name of Resident: Andrea Gaviria ATTENDING PHYSICIAN STATEMENT I saw and evaluated the patient. I reviewed the resident's note and discussed the case with the resident. I agree with the resident's findings and plan as documented. SUBJECTIVE: 64F p/w left hip wound dehiscence now s/p I&D left hip wound with application wound vac POD #1. 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 Now with wound VAC applied to left hip. OBJECTIVE: Last Vital Signs Temp Pulse Resp BP Pulse Ox 97.8 F 77 18 148/70 97 08/19/19 23:15 08/19/19 23:15 08/19/19 23:15 08/19/19 23:15 08/19/19 23:15 GENERAL: Well developed, well nourished. Awake and alert. No acute distress. HEENT: Normocephalic, atraumatic. PERRLA, EOMI. No conjunctival pallor. Sclera are non- icteric. Moist mucous membranes. Oropharynx is clear. NECK: Supple. Full ROM. No JVD. Carotid pulses 2+ and symmetric, without bruits. No thyromegaly. No lymphadenopathy. CARDIOVASCULAR: Regular rate and rhythm. No murmurs, rubs, or gallops. Distal pulses are 2+ and symmetric. PULMONARY: No evidence of respiratory distress. Lungs clear to auscultation bilaterally. No wheezing, rales or rhonchi. ABDOMINAL: Soft. Non-tender. Non-distended. No rebound or guarding. No organomegaly. Normoactive bowel sounds. MUSCULOSKELETAL Normal range of motion at all joints. No bony deformities or tenderness. No CVA tenderness. EXTREMITIES: Left hip wound VAC in place SKIN: Warm and dry. Normal capillary refill. No rashes. No jaundice. . PSYCHIATRIC: Cooperative. Good eye contact. Appropriate mood and affect. ASSESSMENT AND PLAN: 64F w/ left hip wound dehiscence now s/p I&D left hip wound with application wound vac POD #1. Prior history of VRE from wound. -Pain control. -DVT PPx: -SCDs -Incentive spirometry q15 min. -Diet as tolerated. -Continue Linezolid 600 mg IV twice daily Pending or cultures -Monitor CBC closely while on linezolid -Wound cultures were sent from the OR -ID consult for antibiotics
[2019-08-20] MEDS: oxyCODONE HCL 5 MG TABLET PO PRN ×4 (01:55→20:37)
--- NOTE | 2019-08-20 03:26 | HP ---
Addendum entered and electronically signed by Cynthia Farah, RESIDENT 08/20/19 17 :48: Day-team note (as H&P on same day as progress note): agree with plan below pt NPO after MN for repeat I&D left hip with possible I&D lumbar spine w/re- application wound vac VS delayed primary closure. 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 She is currently not complaining of any pain. She denies SOB, CP, and joint paint. Recent Travel: Denies PAST MEDICAL HISTORY: HTN, osteoarthritis, SLE in remission, anxiety, overactive bladder, and chronic LEFT LE wound ulcer/infection PAST SURGICAL HISTORY: Hip surgery (1995) Social History: Smoking: Active smoker for 48 years. Currently attempting to cut down; 5 cig/ day now. Alcohol: Denies Drugs: Denies [employer] Family history: Asked but non-contributory Allergies: etomidate Allergy (Severe, Verified 08/07/19 13:03), Rash. Latex Allergy (Severe, Verified 08/07/19 13:03), Rash. Morphine Allergy (Severe, Verified 08/07/19 13:03), Rash. Tomato Allergy (Intermediate, Verified 08/07/19 13:03), Rash. HOME MEDICATIONS: Home Medications Medication Instructions Recorded Omeprazole 40 mg PO DAILY 08/24/18 Oxybutynin Chloride 5 mg PO TID 08/24/18 Duloxetine HCl [Cymbalta] 30 mg PO BID 15 Days #30 capsule. 03/19/19 Pregabalin [Lyrica] 100 mg PO TID #30 capsule MDD 3 03/19/19 Oxycodone HCl 30 mg PO Q4H PRN 3 Days #10 tablet 04/09/19 MDD 6 Oxycodone HCl [Oxycontin] 80 mg PO BID 08/06/19 Sennosides/Docusate Sodium 2 tablet PO BID PRN 08/06/19 [Pericolace -] Linezolid 1,200 mg PO BID 08/07/19 REVIEW OF SYSTEMS CONSTITUTIONAL: Absent: fever, chills, diaphoresis, generalized weakness, malaise, loss of appetite, weight change HEENT: Absent: rhinorrhea, nasal congestion, throat pain, throat swelling, difficulty swallowing, mouth swelling, ear pain, eye pain, visual changes CARDIOVASCULAR: Absent: chest pain, syncope, palpitations, irregular heart rate, lightheadedness , peripheral edema RESPIRATORY: Absent: cough, shortness of breath, dyspnea with exertion, orthopnea, wheezing, stridor, hemoptysis GASTROINTESTINAL: Absent: abdominal pain, abdominal distension, nausea, vomiting, diarrhea, constipation, melena, hematochezia GENITOURINARY: Absent: dysuria, frequency, urgency, hesitancy, hematuria, flank pain, genital pain MUSCULOSKELETAL: Absent: myalgia, arthralgia, joint swelling, back pain, neck pain SKIN: Absent: rash, itching, pallor HEMATOLOGIC/IMMUNOLOGIC: Absent: easy bleeding, easy bruising, lymphadenopathy, frequent infections ENDOCRINE: Absent: unexplained weight gain, unexplained weight loss, heat intolerance, cold intolerance NEUROLOGIC: Absent: headache, focal weakness or paresthesias, dizziness, unsteady gait, seizure, mental status changes, bladder or bowel incontinence PSYCHIATRIC: Absent: anxiety, depression, suicidal or homicidal ideation, hallucinations. PHYSICAL EXAMINATION Vital Signs - 24 hr 08/19/19 08/19/19 08/19/19 15:00 22:15 22:30 Temperature 99.8 F H 98.0 F Pulse Rate 115 H 83 78 Respiratory 16 12 12 Rate Blood Pressure 145/100 158/80 150/80 O2 Sat by Pulse 97 92 L 96 Oximetry (%) 08/19/19 08/19/19 08/19/19 22:45 23:00 23:15 Temperature 98.2 F 97.8 F Pulse Rate 78 82 77 Respiratory 18 17 18 Rate Blood Pressure 137/63 148/81 148/70 O2 Sat by Pulse 97 97 97 Oximetry (%) GENERAL: AOx3, in no acute distress HEAD: NCAT EYES: MARIELENA, EOMI, conjunctiva clear. ENT: Ears normal, nares patent, oropharynx clear without exudates. Moist mucous membranes. NECK: Normal range of motion, supple without lymphadenopathy, JVD, or masses. LUNGS: CTAB. MIGUELITO wheeze. No crackles. No accessory muscle use. HEART: RRR s1 s2 ABDOMEN: Soft, BS present in all 4 quadrants, non-distended, no JVD, MUSCULOSKELETAL: LEFT large wound vac in place over lateral surface of LLE. UPPER EXTREMITIES: 2x2cm lipoma on RUE. 2+ pulses, warm, well-perfused. No cyanosis. No clubbing. No peripheral edema. LOWER EXTREMITIES: 2+ pulses, warm, well-perfused. No calf tenderness. No peripheral edema. NEUROLOGICAL: No focal deficits. Cranial nerves II-XII intact. Normal speech. PSYCHIATRIC: Cooperative. Good eye contact. Appropriate mood and affect. SKIN: Healed scars on RIGHT forearm. Warm, dry, normal turgor. 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 # Post-op care with wound vac - Oxycodone 30 mg po q4h PRN - Linezolid 600 mg IV BID - Consult ID regarding abx - Incentive spirometry q15 min - PT - WBAT RLE; NWB LLE. - F/u wound culture - F/u post-op TOV: 8 hours max. - Plan to return to OR Monday08/21/2019 for repeat I&D left hip with possible I&D lumbar spine w/re-application woundvac VS delayed primary closure. # HTN - Cont. curent home regimen # Smoking cessation - Pt actively attempting to cut down - Educated pt on importance of smoking cessation - Offer nicotine patch # F/E/N - NS - Cont. to monitor - Regular diet # DVT prophylaxis - SCD # Disposition - Admit to telemetry Andrea Gaviria MD Visit type - Emergency Visit Emergency Visit: Yes ED Registration Date: 08/19/19 Care time: The patient presented to the Emergency Department on the above date and was hospitalized for further evaluation of their emergent condition. - New Patient This patient is new to me today: Yes Date on this admission: 08/20/19 - Critical Care Critical Care patient: No ATTENDING PHYSICIAN STATEMENT I saw and evaluated the patient. I reviewed the resident's note and discussed the case with the resident. I agree with the resident's findings and plan as documented. SUBJECTIVE: OBJECTIVE: ASSESSMENT AND PLAN: <Andrew Dover - Last Filed: 08/21/19 00:59> CHIEF COMPLAINT: PCP: HISTORY OF PRESENT ILLNESS: ER course was notable for: (1) (2) (3) Recent Travel: PAST MEDICAL HISTORY: PAST SURGICAL HISTORY: Social History: Smoking: Alcohol: Drugs: Allergies etomidate Allergy (Severe, Verified 08/07/19 13:03) Rash latex Allergy (Severe, Verified 08/07/19 13:03) Rash morphine Allergy (Severe, Verified 08/07/19 13:03) Rash tomato Allergy (Intermediate, Verified 08/07/19 13:03) Rash HOME MEDICATIONS: Home Medications Medication Instructions Recorded Omeprazole 40 mg PO DAILY 08/24/18 Oxybutynin Chloride 5 mg PO TID 08/24/18 Duloxetine HCl [Cymbalta] 30 mg PO BID 15 Days #30 capsule. 03/19/19 Pregabalin [Lyrica] 100 mg PO TID #30 capsule MDD 3 03/19/19 Oxycodone HCl 30 mg PO Q4H PRN 3 Days #10 tablet 04/09/19 MDD 6 Oxycodone HCl [Oxycontin] 80 mg PO BID 08/06/19 Sennosides/Docusate Sodium 2 tablet PO BID PRN 08/06/19 [Pericolace -] Linezolid 1,200 mg PO BID 08/07/19 REVIEW OF SYSTEMS CONSTITUTIONAL: Absent: fever, chills, diaphoresis, generalized weakness, malaise, loss of appetite, weight change HEENT: Absent: rhinorrhea, nasal congestion, throat pain, throat swelling, difficulty swallowing, mouth swelling, ear pain, eye pain, visual changes CARDIOVASCULAR: Absent: chest pain, syncope, palpitations, irregular heart rate, lightheadedness , peripheral edema RESPIRATORY: Absent: cough, shortness of breath, dyspnea with exertion, orthopnea, wheezing, stridor, hemoptysis GASTROINTESTINAL: Absent: abdominal pain, abdominal distension, nausea, vomiting, diarrhea, constipation, melena, hematochezia GENITOURINARY: Absent: dysuria, frequency, urgency, hesitancy, hematuria, flank pain, genital pain MUSCULOSKELETAL: Absent: myalgia, arthralgia, joint swelling, back pain, neck pain SKIN: Absent: rash, itching, pallor HEMATOLOGIC/IMMUNOLOGIC: Absent: easy bleeding, easy bruising, lymphadenopathy, frequent infections ENDOCRINE: Absent: unexplained weight gain, unexplained weight loss, heat intolerance, cold intolerance NEUROLOGIC: Absent: headache, focal weakness or paresthesias, dizziness, unsteady gait, seizure, mental status changes, bladder or bowel incontinence PSYCHIATRIC: Absent: anxiety, depression, suicidal or homicidal ideation, hallucinations. PHYSICAL EXAMINATION Vital Signs - 24 hr 08/20/19 08/20/19 08/20/19 01:15 02:28 02:30 Pulse Rate 81 81 84 Respiratory 23 H 13 17 Rate Blood Pressure 130/79 142/108 H 124/84 O2 Sat by Pulse Oximetry (%) 08/20/19 08/20/19 08/20/19 02:45 03:00 03:15 Pulse Rate 87 90 88 Respiratory 11 19 12 Rate Blood Pressure 129/70 145/69 127/76 O2 Sat by Pulse Oximetry (%) 08/20/19 08/20/19 08/20/19 03:45 09:00 20:00 Pulse Rate 98 H 89 Respiratory 12 18 Rate Blood Pressure 135/74 167/94 O2 Sat by Pulse 97 Oximetry (%) 08/20/19 08/20/19 21:00 23:00 Pulse Rate 92 H Respiratory 20 19 Rate Blood Pressure 145/71 O2 Sat by Pulse 97 Oximetry (%) GENERAL: Awake, alert, and fully oriented, in no acute distress. HEAD: Normal with no signs of trauma. EYES: Pupils equal, round and reactive to light, extraocular movements intact, sclera anicteric, conjunctiva clear. No lid lag. EARS, NOSE, THROAT: Ears normal, nares patent, oropharynx clear without exudates. Moist mucous membranes. NECK: Normal range of motion, supple without lymphadenopathy, JVD, or masses. LUNGS: Breath sounds equal, clear to auscultation bilaterally. No wheezes, and no crackles. No accessory muscle use. HEART: Regular rate and rhythm, normal S1 and S2 without murmur, rub or gallop. ABDOMEN: Soft, nontender, not distended, normoactive bowel sounds, no guarding, no rebound, no masses. No hepatomegaly or splenomegaly. MUSCULOSKELETAL: Normal range of motion at all joints. No bony deformities or tenderness. No CVA tenderness. UPPER EXTREMITIES: 2+ pulses, warm, well-perfused. No cyanosis. No clubbing. No peripheral edema. LOWER EXTREMITIES: 2+ pulses, warm, well-perfused. No calf tenderness. No peripheral edema. NEUROLOGICAL: Cranial nerves II-XII intact. Normal speech. Normal gait. PSYCHIATRIC: Cooperative. Good eye contact. Appropriate mood and affect. SKIN: Warm, dry, normal turgor, no rashes or lesions noted, normal capillary refill. Laboratory Results - last 24 hr 08/20/19 08/20/19 08/20/19 05:30 05:30 14:25 WBC 8.7 RBC 4.80 Hgb 11.5 Hct 35.3 MCV 73.5 L MCH 24.0 L MCHC 32.7 RDW 19.4 H Plt Count 290 MPV 7.2 L PT with INR 11.90 INR 1.01 PTT (Actin FS) Sodium 139 Potassium 4.4 Chloride 107 Carbon Dioxide 22 Anion Gap 9 BUN 17.6 Creatinine 1.1 Est GFR (CKD-EPI)AfAm 61.44 Est GFR (CKD-EPI)NonAf 53.01 Random Glucose 135 H Calcium 9.0 Phosphorus 4.2 Magnesium 2.1 Blood Type Antibody Screen 08/20/19 08/20/19 14:25 17:25 WBC RBC Hgb Hct MCV MCH MCHC RDW Plt Count MPV PT with INR 11.50 INR 0.97 PTT (Actin FS) 31.6 Sodium Potassium Chloride Carbon Dioxide Anion Gap BUN Creatinine Est GFR (CKD-EPI)AfAm Est GFR (CKD-EPI)NonAf Random Glucose Calcium Phosphorus Magnesium Blood Type A POSITIVE Antibody Screen Negative ASSESSMENT/PLAN: ATTENDING PHYSICIAN STATEMENT I saw and evaluated the patient. I reviewed the resident's note and discussed the case with the resident. I agree with the resident's findings and plan as documented. SUBJECTIVE: OBJECTIVE: ASSESSMENT AND PLAN:
[2019-08-20 04:15] VITALS: BMI 30.7
[2019-08-20] MEDS ORDERED: NICOTINE 7 MG/24 HOURS TOPICAL PATCH TD PRN (05:14)
[2019-08-20] MEDS: PREGABALIN 100 MG CAPSULE PO SCH ×2 (05:54→14:42)
[2019-08-20] MEDS: OXYBUTYNIN CHLORIDE 5 MG TABLET PO SCH ×3 (05:54→23:02)
[2019-08-20 06:23] LABS: HEMATOCRIT 35.3 % (32.4-45.2); HEMOGLOBIN 11.5 GM/dL (10.7-15.3); MCHC 32.7 g/dl (32.0-36.0); MEAN CELL VOLUME 73.5 fl (80-96); MEAN PLT VOLUME 7.2 fl (7.5-11.1); PLATELET COUNT 290 K/MM3 (134-434); RDW 19.4 % (11.6-15.6); WHITE BLOOD COUNT 8.7 K/mm3 (4.0-10.0)
[2019-08-20 06:53] LABS: BLOOD UREA NITROGEN 17.6 mg/dL (7-18); CREATININE 1.1 mg/dL (0.55-1.3); MAGNESIUM 2.1 mg/dL (1.8-2.4); PHOSPHOROUS 4.2 mg/dL (2.5-4.9); POTASSIUM 4.4 mmol/L (3.5-5.1)
[2019-08-20] MEDS ORDERED: LINEZOLID 600 MG PREMIX BAG 600 MG in PREMIX 300 IVPB SCH (07:00)
[2019-08-20] MEDS ORDERED: LINEZOLID 600 MG PREMIX BAG 600 MG/300 ML BAG IVPB ONE ×2 (07:15→11:30)
[2019-08-20] MEDS ORDERED: NICOTINE 7 MG/24 HOURS TOPICAL PATCH TD SCH (10:00)
[2019-08-20] MEDS ORDERED: LINEZOLID 600 MG TABLET (RESTRICTED TO ID) PO SCH (10:00)
[2019-08-20] MEDS: DULoxetine HCL 30 MG CAPSULE.DR PO SCH ×2 (10:28→23:03)
[2019-08-20] MEDS: ASPIRIN 81 MG CHEWABLE TABLETS PO SCH ×2 (10:28→23:03)
[2019-08-20] MEDS: oxyCODONE HCL 40 MG SUSTAINED ACTING TABLET PO SCH ×2 (10:28→23:03)
[2019-08-20] MEDS: PANTOPRAZOLE 40 MG TABLET (FP) PO SCH (10:28)
--- NOTE | 2019-08-20 10:33 | OP ---
DATE OF OPERATION: DATE OF DICTATION: 08/19/2019 SURGEON: Albert Moya MD SOCK EXAMINER: Gelacio Moya MD PREOPERATIVE DIAGNOSIS: Septic proximal lateral thigh wound originally treated with wound VAC followed by delayed primary closure. POSTOPERATIVE DIAGNOSIS: Septic proximal lateral thigh wound. OPERATION PERFORMED: Removal of sutures, wound opened, full debridement, irrigation, insertion of wound VAC. ANESTHESIA: General. POSITION: Lateral decubitus left side up. OPERATION DETAILS: Patient correctly identified. Brought to the operating room. Left lower extremity was prepped and draped in the routine manner with Betadine scrub solution, wiped with alcohol, DuraPrep applied. The sutures that were in situ were still holding, but the actual wound was gaping apart and draining extensively. This was a malodorous material. The sutures were removed. The skin was prepped with Betadine scrub solution, wiped off with alcohol, a window drape applied. Culture sticks were taken from the infected material deep. An extensive mechanical lavage with saline performed. This brought about much improved cleansing of the tissues. The tissues were then subjected to a thorough cleansing of the tissues with Betadine scrub to remove biofilm. Another extensive washout with saline performed and then Betadine solution actually left in the confines of the wound itself. This was left for about 3-4 minutes and then sucked out followed by repeat saline wash. There is, unfortunately, a deep cavity that is still present. The skin proximally is closed over this and healed well leaving a small area, effectively a large sinus is what is occurring here. The cavity was packed with a wound VAC. Wound VAC was sealed and the wound VAC working well by the time the patient was extricated out of the OR. Patient tolerated the procedure well. No complications. Plan is to re-evaluate this in 48 hours with a removal of the wound VAC and, once again, attempted delayed primary closure. As an aside, the decisions for further treatment here are challenging. I discussed with patient on many occasions a tissue flap to bring healthy blood supply to the deep space has been entertained, but this, unfortunately, will bring about further mutilation of this already compromised limb, and I have elected to treat this with delayed primary closure. This may take longer than planned but ultimately will leave her with a limb that is hopefully well healed. The other option of treatment here is a through hip amputation using the medial flap as a large myocutaneous flap, but this patient has refused any thoughts of an amputation at this point in time. MD OSAVLDO Oconnor/[id number]
--- NOTE | 2019-08-20 12:49 | CON.ID ---
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 s/p I&D of LEFT hip wound and LEFT hip wound vac, patient known to me with repeated infections of the hip,was admitted with fevers and drainage from the hip and fevers patient was seen by surgery and taken to the or and a washout was done currently patient stable - History Source History Provided By: Patient Limitations to Obtaining History: No Limitations - Past Medical History Cardio/Vascular: Yes: HTN Psych: Yes: Depression - Past Surgical History Past Surgical History: Yes: Joint Replacement (THR, multiple wash outs, I&D) - Alcohol/Substance Use Hx Alcohol Use: No - Smoking History Smoking history: Current every day smoker Have you smoked in the past 12 months: Yes Aproximately how many cigarettes per day: 5 Home Medications - Allergies Allergies/Adverse Reactions: Allergies Allergy/AdvReac Type Severity Reaction Status Date / Time etomidate Allergy Severe Rash Verified 08/07/19 13:03 latex Allergy Severe Rash Verified 08/07/19 13:03 morphine Allergy Severe Rash Verified 08/07/19 13:03 tomato Allergy Intermediate Rash Verified 08/07/19 13:03 - Home Medications Home Medications: Ambulatory Orders RX: Omeprazole 40 mg PO DAILY 08/24/18 RX: Oxybutynin Chloride 5 mg PO TID 08/24/18 RX: Duloxetine HCl [Cymbalta] 30 mg PO BID 15 Days #30 capsule. 03/19/19 RX: Pregabalin [Lyrica] 100 mg PO TID #30 capsule MDD 3 03/19/19 RX: Oxycodone HCl 30 mg PO Q4H PRN 3 Days #10 tablet MDD 6 04/09/19 Oxycodone HCl [Oxycontin] 80 mg PO BID 08/06/19 RX: Sennosides/Docusate Sodium [Pericolace -] 2 tablet PO BID PRN 08/06/19 RX: Linezolid 1,200 mg PO BID 08/07/19 Fluconazole 200 mg PO DAILY 08/21/19 RX: Diazepam [Valium] 5 mg PO BID PRN 08/21/19 Review of Systems - Review of Systems Constitutional: reports: Fever Eyes: reports: No Symptoms HENT: reports: No Symptoms Neck: reports: No Symptoms Cardiovascular: reports: No Symptoms Respiratory: reports: No Symptoms Gastrointestinal: reports: No Symptoms Genitourinary: reports: No Symptoms Musculoskeletal: reports: Joint Pain, Other Integumentary: reports: Wound Neurological: reports: No Symptoms Endocrine: reports: No Symptoms Hematology/Lymphatic: reports: No Symptoms Psychiatric: reports: No Symptoms Physical Exam Vital Signs: Vital Signs Temperature 98.7 F 08/19/19 23:15 Pulse Rate 98 H 08/20/19 03:45 Respiratory Rate 12 08/20/19 03:45 Blood Pressure 135/74 08/20/19 03:45 O2 Sat by Pulse Oximetry (%) 97 08/19/19 23:15 Constitutional: Yes: Well Nourished, Calm, Mild Distress Eyes: Yes: Conjunctiva Clear HENT: Yes: Atraumatic, Normocephalic Neck: Yes: Supple, Trachea Midline Cardiovascular: Yes: Regular Rate and Rhythm Respiratory: Yes: Regular, CTA Bilaterally Gastrointestinal: Yes: Normal Bowel Sounds, Soft Musculoskeletal: Yes: Other Extremities: Yes: WNL Wound/Incision: Yes: Other (wound vac) Neurological: Yes: Alert, Oriented Psychiatric: Yes: Alert, Oriented Labs: CBC, BMP 08/20/19 05:30 08/20/19 05:30 Assessment/Plan 64 y/o female PMH HTN, osteoarthritis, SLE in remission, anxiety, overactive bladder, LEFT total hip arthroplasty s/p washouts and wound vac due to chronic LEFT wound ulcers, and 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
[2019-08-20] MEDS ORDERED: PIPERACILLIN/TAZOB 3.375 GM 3.375 GM in DEXTROSE 5%-WATER - 50 ML IVPB SCH (13:00)
--- NOTE | 2019-08-20 13:12 | PN ---
Progress Note (short form) - Note Progress Note: 64F POD1 s/p hip washout I and D under GA. Pt states pain is well controlled and does not report any anesthetic complications. Continue current regimen.
[2019-08-20] MEDS ORDERED: DEXTROSE 5%-WATER - 50 ML IVPB ONE (14:33)
[2019-08-20] MEDS ORDERED: PIPERACILLIN/TAZOBACTAM 3.375 GM VIAL IVPB ONE (14:33)
[2019-08-20 14:50] LABS: INR 1.01 (0.83-1.09); PROTHROMBIN TIME (PATIENT) 11.9 SEC (9.7-13.0)
[2019-08-20] MEDS: PIPERACILLIN/TAZOB 3.375 GM 3.375 GM in DEXTROSE 5%-WATER - 50 ML IVPB SCH (17:12)
[2019-08-20 17:45] LABS: INR 0.97 (0.83-1.09); PROTHROMBIN TIME (PATIENT) 11.5 SEC (9.7-13.0)
[2019-08-20 17:48] LABS: ACTIVATED PTT 31.6 SECONDS (25.2-36.5)
--- NOTE | 2019-08-20 18:33 | PN ---
Progress Note (short form) - Note Progress Note: 64F s/p I&D left hip wound with application of wound vac POD #1. Pain well controlled. No acute events overnight. Pt. denies overnight history of headaches, chest pain, shortness of breath, nausea, vomiting, chills, & sweats. (+) Voiding; (+) Flatus; (-) BM. All labs and vitals reviewed. PE: AAO x 3, NAD. L-Hip: WoundVac dressing intact & in place; negative pressure therapy maintained at 125mmHg. NV at baseline B/L LE. 64F s/p I&D left hip wound with application of wound vac POD #1. -Strict NPO, IVF at midnight. -Plan to return to OR tomorrow (08/21/2019) for repeat left hip I&D w/wound vac exchange VS delayed primary closure. -Pain control. -DVT PPx: -Mechanical only: SOUTH's, SCD's. -Chemical: ASA 81mg PO qD. -Incentive spirometry q15 min. -PT/OT/Rehab, OOB. -WBAT RLE; NWB LLE. -Diet as tolerated. -Care per medical hospitalist & ID teams. -f/u pain management recommendations: Dr. Elliot Garcia. -Discharge planning: home w/VNS & wound care services; f/u 7-10 days after rehab discharge at [facility] office; call for appointment; . -Will follow. Gelacio Moya MD (Orthopaedic Surgery).
[2019-08-20] MEDS ORDERED: PREGABALIN 50 MG CAPSULE PO SCH (22:24)
[2019-08-20] MEDS: PREGABALIN 50 MG CAPSULE PO SCH (23:02)
[2019-08-20] MEDS: LACTATED RINGERS SOLUTION 1,000 ML IV SCH (23:08)
[2019-08-21] MEDS ORDERED: PIPERACILLIN/TAZOBACTAM 3.375 GM VIAL IVPB ONE (00:50)
[2019-08-21] MEDS ORDERED: DEXTROSE 5%-WATER - 50 ML IVPB ONE (00:50)
[2019-08-21] MEDS: PIPERACILLIN/TAZOB 3.375 GM 3.375 GM in DEXTROSE 5%-WATER - 50 ML IVPB SCH ×3 (01:54→17:13)
[2019-08-21] MEDS: oxyCODONE HCL 5 MG TABLET PO PRN ×3 (02:32→19:58)
[2019-08-21] MEDS ORDERED: diphenhydrAMINE HCL 25 MG CAPSULE (FP) PO ONE (03:09)
[2019-08-21] MEDS: OXYBUTYNIN CHLORIDE 5 MG TABLET PO SCH ×3 (06:32→22:20)
[2019-08-21] MEDS: PREGABALIN 50 MG CAPSULE PO SCH ×3 (06:32→22:20)
[2019-08-21 08:10] LABS: HEMATOCRIT 33.3 % (32.4-45.2); HEMOGLOBIN 10.8 GM/dL (10.7-15.3); MCH 23.7 pg (25.7-33.7); MCHC 32.5 g/dl (32.0-36.0); PLATELET COUNT 289 K/MM3 (134-434); RBC 4.56 M/mm3 (3.60-5.2); RDW 18.8 % (11.6-15.6); WHITE BLOOD COUNT 9.1 K/mm3 (4.0-10.0)
[2019-08-21 08:30] LABS: CALCIUM 8.8 mg/dL (8.5-10.1); CREATININE 1.2 mg/dL (0.55-1.3); MAGNESIUM 2.3 mg/dL (1.8-2.4); PHOSPHOROUS 4.1 mg/dL (2.5-4.9); POTASSIUM 4.4 mmol/L (3.5-5.1)
[2019-08-21] MEDS: oxyCODONE HCL 40 MG SUSTAINED ACTING TABLET PO SCH ×2 (09:47→22:19)
[2019-08-21] MEDS: ASPIRIN 81 MG CHEWABLE TABLETS PO SCH ×2 (09:56→22:20)
[2019-08-21] MEDS: DULoxetine HCL 30 MG CAPSULE.DR PO SCH ×2 (09:59→22:19)
[2019-08-21] MEDS: PANTOPRAZOLE 40 MG TABLET (FP) PO SCH (09:59)
--- NOTE | 2019-08-21 10:45 | PN ---
Progress Note (short form) - Note Progress Note: Hospitalist Medicine Pt refusing zosyn and IVF, states that it makes her feel "warm all over and as if she will explode." Explained importance to pt, expressed verbal understanding. Awaiting repeat left hip I&D w/wound vac exchange VS delayed primary closure to occur today Vitals 08/21/19 10:00 Temperature 98.4 F Pulse Rate 96 H Respiratory 20 Rate Blood Pressure 159/99 General: AAO x 3, in NAD. resting in bed HEENT: NCAT, PERRLA neck: supple cardio: S1, S2 RRR. no r/m/g pulm: CTA b/l. no accessory m usage abdomen: obese, nontender, nondistended LE: +L hip dressing c/d/i, TTP surrounding area. no erythema. 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 #s/p I&D L hip wound, L hip wound vac -for repeat I&D left hip with possible I&D lumbar spine w/re-application woundvac VS delayed primary closure. today -Oxycodone 30 mg po q4h PRN, on oxycontin 80mg PO BID at home -linezolid has been d/c, started on zosyn (08/20) -pt refusing abx currently -c/w IS, PT -f/u wound cx -WBAT RLE; NWB LLE. -ID: Dr. Munoz -Sx: Dr. Moya #HTN -not on home agents; confirmed w/ pharmacy -controlled when pt not in pain, will reevaluate # Smoking cessation -c/w nicotine patch # F/E/N -LR 125 cc/hr -c/t follow lytes -NPO until sx, advance after per sx recs # DVT prophylaxis -TEDs/SCD's -asa 81mg BID per sx for chemical PPX # Dispo c/t monitor on med-surg recs per sx
--- NOTE | 2019-08-21 11:51 | PN ---
Progress Note, Physician History of Present Illness: patient stable post op doing well refusing abx - Current Medication List Current Medications: Active Medications Al Hydroxide/Mg Hydroxide (Mylanta Oral Suspension -) 30 ml PO Q4H PRN PRN Reason: DYSPEPSIA Aspirin (Asa -) 81 mg PO BID [facility] Last Admin: 08/21/19 09:56 Dose: Not Given Duloxetine HCl (Cymbalta -) 30 mg PO BID [facility] Last Admin: 08/21/19 09:59 Dose: 30 mg Fentanyl (Sublimaze Injection -) 50 mcg IVPUSH [id number] PRN PRN Reason: PAIN-PACU ORDER X 4 DOSES ONLY Lactated Ringer's (Lactated Ringers Solution) 1,000 mls @ 125 mls/hr IV ASDIR [facility] Last Admin: 08/20/19 23:08 Dose: 125 mls/hr Piperacillin Sod/Tazobactam (Sod 3.375 gm/ Dextrose) 50 mls @ 100 mls/hr IVPB Q8H-IV [facility]; Protocol Last Admin: 08/21/19 09:53 Dose: Not Given Magnesium Hydroxide (Milk Of Magnesia -) 30 ml PO PRN PRN PRN Reason: CONSTIPATION Nicotine (Nicoderm Patch -) 7 mg TD DAILY PRN PRN Reason: AGITATION Ondansetron HCl (Zofran Injection) 4 mg IVPUSH Q6H PRN PRN Reason: NAUSEA AND/OR VOMITING Oxybutynin Chloride (Ditropan -) 5 mg PO TID [facility] Last Admin: 08/21/19 06:32 Dose: 5 mg Oxycodone HCl (Roxicodone -) 30 mg PO Q4H PRN PRN Reason: PAIN LEVEL 6-10 Last Admin: 08/21/19 10:29 Dose: 30 mg Oxycodone HCl (Oxycontin -) 80 mg PO BID [facility] Last Admin: 08/21/19 09:47 Dose: 80 mg Pantoprazole Sodium (Protonix -) 40 mg PO DAILY [facility] Last Admin: 08/21/19 09:59 Dose: 40 mg Pregabalin (Lyrica -) 100 mg PO TID [facility] Last Admin: 08/21/19 06:32 Dose: 100 mg Promethazine HCl (Phenergan Injection -) 12.5 mg IVPUSH Q6H PRN PRN Reason: NAUSEA-FOR RESCUE AFTER 15 MIN Senna/Docusate Sodium (Pericolace -) 2 tablet PO BID PRN PRN Reason: CONSTIPATION - Objective Vital Signs: Vital Signs Temperature 98.4 F 08/21/19 10:00 Pulse Rate 96 H 08/21/19 10:00 Respiratory Rate 20 08/21/19 10:00 Blood Pressure 159/99 08/21/19 10:00 O2 Sat by Pulse Oximetry (%) 97 08/20/19 21:00 Constitutional: Yes: Calm, Mild Distress Cardiovascular: Yes: S1, S2 Respiratory: Yes: Regular, CTA Bilaterally Gastrointestinal: Yes: Normal Bowel Sounds, Soft Musculoskeletal: Yes: WNL Extremities: Yes: Other Neurological: Yes: Alert Psychiatric: Yes: Other Labs: CBC, BMP 08/21/19 07:39 08/21/19 07:39 INR, PTT INR 0.97 (0.83-1.09) 08/20/19 17:25 Assessment/Plan 64 y/o female PMH HTN, osteoarthritis, SLE in remission, anxiety, overactive bladder, LEFT total hip arthroplasty s/p washouts and wound vac due to chronic LEFT wound ulcers, and 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 continue abx htn plan for washout wound care
[2019-08-21] MEDS ORDERED: PT OWN MED DRAWER 7, Y5N ONE ×2 (13:32→22:16)
[2019-08-21] MEDS: LACTATED RINGERS SOLUTION 1,000 ML IV SCH (22:30)
[2019-08-22] MEDS: oxyCODONE HCL 5 MG TABLET PO PRN ×4 (02:39→18:13)
[2019-08-22] MEDS ORDERED: PIPERACILLIN/TAZOBACTAM 3.375 GM VIAL IVPB ONE ×3 (02:42→17:23)
[2019-08-22] MEDS ORDERED: DEXTROSE 5%-WATER - 50 ML IVPB ONE ×3 (02:43→17:23)
[2019-08-22] MEDS: PIPERACILLIN/TAZOB 3.375 GM 3.375 GM in DEXTROSE 5%-WATER - 50 ML IVPB SCH ×3 (02:54→18:09)
[2019-08-22] MEDS: OXYBUTYNIN CHLORIDE 5 MG TABLET PO SCH ×3 (06:35→22:00)
[2019-08-22] MEDS: PREGABALIN 50 MG CAPSULE PO SCH ×3 (06:35→22:00)
[2019-08-22] MEDS: PREGABALIN 100 MG CAPSULE PO SCH (07:33)
[2019-08-22 08:50] LABS: BASO % 0.9 % (0-2.0); EOS % 12.6 % (0-4.5); HEMATOCRIT 33.7 % (32.4-45.2); HEMOGLOBIN 10.9 GM/dL (10.7-15.3); LYMPH % 18.5 % (8-40); MCH 23.6 pg (25.7-33.7); MCHC 32.2 g/dl (32.0-36.0); MEAN CELL VOLUME 73.4 fl (80-96); MEAN PLT VOLUME 7.2 fl (7.5-11.1); MONO % 6.5 % (3.8-10.2); NEUT % 61.5 % (42.8-82.8); PLATELET COUNT 339 K/MM3 (134-434); RDW 19.3 % (11.6-15.6); WHITE BLOOD COUNT 9.4 K/mm3 (4.0-10.0)
[2019-08-22 09:18] LABS: BLOOD UREA NITROGEN 18.1 mg/dL (7-18); CALCIUM 8.9 mg/dL (8.5-10.1); CREATININE 0.9 mg/dL (0.55-1.3); MAGNESIUM 2.3 mg/dL (1.8-2.4); PHOSPHOROUS 4.5 mg/dL (2.5-4.9); POTASSIUM 4.2 mmol/L (3.5-5.1)
[2019-08-22] MEDS ORDERED: PT OWN MED DRAWER 7, Y5N ONE ×2 (09:32→13:05)
[2019-08-22] MEDS: oxyCODONE HCL 40 MG SUSTAINED ACTING TABLET PO SCH ×2 (09:48→22:00)
[2019-08-22] MEDS: PANTOPRAZOLE 40 MG TABLET (FP) PO SCH (09:48)
[2019-08-22] MEDS: ASPIRIN 81 MG CHEWABLE TABLETS PO SCH ×2 (09:49→22:00)
--- NOTE | 2019-08-22 10:18 | PN ---
Progress Note, Physician History of Present Illness: patient stable no new issues - Current Medication List Current Medications: Active Medications Al Hydroxide/Mg Hydroxide (Mylanta Oral Suspension -) 30 ml PO Q4H PRN PRN Reason: DYSPEPSIA Aspirin (Asa -) 81 mg PO BID [facility] Last Admin: 08/22/19 09:49 Dose: Not Given Duloxetine HCl (Cymbalta -) 30 mg PO BID [facility] Last Admin: 08/21/19 22:19 Dose: 30 mg Fentanyl (Sublimaze Injection -) 50 mcg IVPUSH [id number] PRN PRN Reason: PAIN-PACU ORDER X 4 DOSES ONLY Lactated Ringer's (Lactated Ringers Solution) 1,000 mls @ 125 mls/hr IV ASDIR [facility] Last Admin: 08/21/19 22:30 Dose: Not Given Piperacillin Sod/Tazobactam (Sod 3.375 gm/ Dextrose) 50 mls @ 100 mls/hr IVPB Q8H-IV [facility]; Protocol Last Admin: 08/22/19 09:48 Dose: 100 mls/hr Magnesium Hydroxide (Milk Of Magnesia -) 30 ml PO PRN PRN PRN Reason: CONSTIPATION Nicotine (Nicoderm Patch -) 7 mg TD DAILY PRN PRN Reason: AGITATION Ondansetron HCl (Zofran Injection) 4 mg IVPUSH Q6H PRN PRN Reason: NAUSEA AND/OR VOMITING Oxybutynin Chloride (Ditropan -) 5 mg PO TID [facility] Last Admin: 08/22/19 06:35 Dose: 5 mg Oxycodone HCl (Roxicodone -) 30 mg PO Q4H PRN PRN Reason: PAIN LEVEL 6-10 Last Admin: 08/22/19 06:35 Dose: 30 mg Oxycodone HCl (Oxycontin -) 80 mg PO BID [facility] Last Admin: 08/22/19 09:48 Dose: 80 mg Pantoprazole Sodium (Protonix -) 40 mg PO DAILY [facility] Last Admin: 08/22/19 09:48 Dose: 40 mg Pregabalin (Lyrica -) 100 mg PO TID [facility] Last Admin: 08/22/19 06:35 Dose: 100 mg Promethazine HCl (Phenergan Injection -) 12.5 mg IVPUSH Q6H PRN PRN Reason: NAUSEA-FOR RESCUE AFTER 15 MIN Senna/Docusate Sodium (Pericolace -) 2 tablet PO BID PRN PRN Reason: CONSTIPATION - Objective Vital Signs: Vital Signs Temperature 97.9 F 08/22/19 09:56 Pulse Rate 102 H 08/22/19 09:56 Respiratory Rate 08/22/19 09:56 Blood Pressure 122/78 08/22/19 09:56 O2 Sat by Pulse Oximetry (%) 97 08/21/19 21:00 Constitutional: Yes: No Distress, Calm Cardiovascular: Yes: S1, S2 Respiratory: Yes: Regular, CTA Bilaterally Gastrointestinal: Yes: Normal Bowel Sounds, Soft Genitourinary: Yes: WNL Musculoskeletal: Yes: WNL Extremities: Yes: Other Wound/Incision: Yes: Dressing Dry and Intact Labs: CBC, BMP 08/22/19 08:05 08/22/19 08:05 INR, PTT INR 0.97 (0.83-1.09) 08/20/19 17:25 Assessment/Plan 64 y/o female PMH HTN, osteoarthritis, SLE in remission, anxiety, overactive bladder, LEFT total hip arthroplasty s/p washouts and wound vac due to chronic LEFT wound ulcers, and 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
--- NOTE | 2019-08-22 12:43 | PN ---
Progress Note (short form) - Note Progress Note: Hospitalist Medicine scheduled for OR this evening: repeat left hip I&D w/wound vac exchange VS delayed primary closure Vitals 08/22/19 09:56 Temperature 97.9 F Pulse Rate 102 H Respiratory 19 Rate Blood Pressure 122/78 Physical Exam General: AAO x 3, in NAD. resting in bed HEENT: NCAT, PERRLA neck: supple cardio: S1, S2 RRR. no r/m/g pulm: CTA b/l. no accessory m usage abdomen: obese, nontender, nondistended LE: +L hip dressing c/d/i, TTP surrounding area. no erythema. 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 #s/p I&D L hip wound, L hip wound vac -for repeat I&D left hip with possible I&D lumbar spine w/re-application woundvac VS delayed primary closure. today -Oxycodone 30 mg po q4h PRN, on oxycontin 80mg PO BID at home -linezolid has been d/c, started on zosyn (08/20) -c/w IS, PT -f/u wound cx -WBAT RLE; NWB LLE. -ID: Dr. Munoz -Sx: Dr. Moya #HTN -not on home agents; confirmed w/ pharmacy -controlled when pt not in pain, will reevaluate # Smoking cessation -c/w nicotine patch # F/E/N -LR 125 cc/hr -c/t follow lytes -NPO until sx, advance after per sx recs # DVT prophylaxis -TEDs/SCD's -asa 81mg BID per sx for chemical PPX # Dispo c/t monitor on med-surg recs per sx
[2019-08-22] MEDS ORDERED: MIDAZOLAM HCL 2 MG/2 ML SINGLE DOSE VIAL ONE (14:19)
[2019-08-22] MEDS ORDERED: PROPOFOL 0 ML ONE (14:20)
[2019-08-22] MEDS: DULoxetine HCL 30 MG CAPSULE.DR PO SCH ×2 (14:52→22:00)
[2019-08-22] MEDS: SENNOSIDES/DOCUSATE COMBO (SENNA PLUS) TABLET (UD) PO PRN (14:52)
[2019-08-22] MEDS ORDERED: oxyCODONE HCL 5 MG TABLET PO ONE (16:59)
[2019-08-23] MEDS ORDERED: PIPERACILLIN/TAZOBACTAM 3.375 GM VIAL IVPB ONE ×3 (02:34→17:34)
[2019-08-23] MEDS ORDERED: DEXTROSE 5%-WATER - 50 ML IVPB ONE ×3 (02:34→17:34)
[2019-08-23] MEDS: LACTATED RINGERS SOLUTION 1,000 ML IV SCH ×2 (02:51→18:21)
[2019-08-23] MEDS: PIPERACILLIN/TAZOB 3.375 GM 3.375 GM in DEXTROSE 5%-WATER - 50 ML IVPB SCH ×3 (02:51→18:21)
[2019-08-23] MEDS: oxyCODONE HCL 5 MG TABLET PO PRN ×4 (03:16→17:30)
[2019-08-23] MEDS: PREGABALIN 50 MG CAPSULE PO SCH ×3 (06:32→21:52)
[2019-08-23] MEDS: OXYBUTYNIN CHLORIDE 5 MG TABLET PO SCH ×3 (06:32→21:52)
[2019-08-23 08:51] LABS: BASO % 0.6 % (0-2.0); EOS % 10.3 % (0-4.5); HEMATOCRIT 33.1 % (32.4-45.2); HEMOGLOBIN 10.6 GM/dL (10.7-15.3); LYMPH % 16.2 % (8-40); MCH 23.7 pg (25.7-33.7); MCHC 32.1 g/dl (32.0-36.0); MEAN CELL VOLUME 73.7 fl (80-96); MEAN PLT VOLUME 7.1 fl (7.5-11.1); MONO % 6.4 % (3.8-10.2); NEUT % 66.5 % (42.8-82.8); PLATELET COUNT 338 K/MM3 (134-434); RBC 4.49 M/mm3 (3.60-5.2); RDW 19.3 % (11.6-15.6); WHITE BLOOD COUNT 8.7 K/mm3 (4.0-10.0)
[2019-08-23 09:21] LABS: CALCIUM 8.9 mg/dL (8.5-10.1); CREATININE 1.2 mg/dL (0.55-1.3); MAGNESIUM 2.3 mg/dL (1.8-2.4); PHOSPHOROUS 4.3 mg/dL (2.5-4.9); POTASSIUM 4.3 mmol/L (3.5-5.1)
--- NOTE | 2019-08-23 09:49 | PN ---
Progress Note, Physician History of Present Illness: stable no new issues - Current Medication List Current Medications: Active Medications Al Hydroxide/Mg Hydroxide (Mylanta Oral Suspension -) 30 ml PO Q4H PRN PRN Reason: DYSPEPSIA Aspirin (Asa -) 81 mg PO BID [facility] Last Admin: 08/22/19 22:00 Dose: Not Given Duloxetine HCl (Cymbalta -) 30 mg PO BID [facility] Last Admin: 08/22/19 22:00 Dose: Not Given Fentanyl (Sublimaze Injection -) 50 mcg IVPUSH [id number] PRN PRN Reason: PAIN-PACU ORDER X 4 DOSES ONLY Lactated Ringer's (Lactated Ringers Solution) 1,000 mls @ 125 mls/hr IV ASDIR [facility] Last Admin: 08/23/19 02:51 Dose: 125 mls/hr Piperacillin Sod/Tazobactam (Sod 3.375 gm/ Dextrose) 50 mls @ 100 mls/hr IVPB Q8H-IV [facility]; Protocol Last Admin: 08/23/19 02:51 Dose: 100 mls/hr Magnesium Hydroxide (Milk Of Magnesia -) 30 ml PO PRN PRN PRN Reason: CONSTIPATION Nicotine (Nicoderm Patch -) 7 mg TD DAILY PRN PRN Reason: AGITATION Ondansetron HCl (Zofran Injection) 4 mg IVPUSH Q6H PRN PRN Reason: NAUSEA AND/OR VOMITING Oxybutynin Chloride (Ditropan -) 5 mg PO TID [facility] Last Admin: 08/23/19 06:32 Dose: Not Given Oxycodone HCl (Roxicodone -) 30 mg PO Q4H PRN PRN Reason: PAIN LEVEL 6-10 Last Admin: 08/23/19 08:22 Dose: 30 mg Oxycodone HCl (Oxycontin -) 80 mg PO BID [facility] Last Admin: 08/22/19 22:00 Dose: Not Given Pantoprazole Sodium (Protonix -) 40 mg PO DAILY [facility] Last Admin: 08/22/19 09:48 Dose: 40 mg Pregabalin (Lyrica -) 100 mg PO TID [facility] Last Admin: 08/23/19 06:32 Dose: Not Given Promethazine HCl (Phenergan Injection -) 12.5 mg IVPUSH Q6H PRN PRN Reason: NAUSEA-FOR RESCUE AFTER 15 MIN Senna/Docusate Sodium (Pericolace -) 2 tablet PO BID PRN PRN Reason: CONSTIPATION Last Admin: 08/22/19 14:52 Dose: 2 tablet - Objective Vital Signs: Vital Signs Temperature 97.9 F 08/23/19 06:00 Pulse Rate 98 H 08/23/19 06:00 Respiratory Rate 20 08/23/19 06:00 Blood Pressure 156/76 08/23/19 06:00 O2 Sat by Pulse Oximetry (%) 97 08/22/19 21:00 Constitutional: Yes: No Distress, Calm Cardiovascular: Yes: S1, S2 Respiratory: Yes: Regular, CTA Bilaterally Gastrointestinal: Yes: Normal Bowel Sounds, Soft Musculoskeletal: Yes: WNL Extremities: Yes: Other Wound/Incision: Yes: Dressing Dry and Intact Neurological: Yes: Alert, Oriented Psychiatric: Yes: Alert, Oriented Labs: CBC, BMP 08/23/19 07:45 08/23/19 07:45 INR, PTT INR 0.97 (0.83-1.09) 08/20/19 17:25 Assessment/Plan 64 y/o female PMH HTN, osteoarthritis, SLE in remission, anxiety, overactive bladder, LEFT total hip arthroplasty s/p washouts and wound vac due to chronic LEFT wound ulcers, and 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
[2019-08-23] MEDS: oxyCODONE HCL 40 MG SUSTAINED ACTING TABLET PO SCH ×2 (10:40→21:52)
[2019-08-23] MEDS: DULoxetine HCL 30 MG CAPSULE.DR PO SCH ×2 (10:41→21:52)
[2019-08-23] MEDS: PANTOPRAZOLE 40 MG TABLET (FP) PO SCH (10:41)
[2019-08-23] MEDS: ASPIRIN 81 MG CHEWABLE TABLETS PO SCH ×2 (10:42→21:52)
[2019-08-23] MEDS ORDERED: PT OWN MED DRAWER 7, Y5N ONE ×3 (13:36→21:47)
[2019-08-23] MEDS: SENNOSIDES/DOCUSATE COMBO (SENNA PLUS) TABLET (UD) PO PRN ×2 (13:57→21:59)
[2019-08-23] MEDS ORDERED: PROPOFOL 20 ML ONE ×2 (14:53→14:56)
[2019-08-23] MEDS ORDERED: fentaNYL CITRATE 250 MCG/5 ML VIAL ONE (14:53)
[2019-08-23] MEDS ORDERED: SUCCINYLCHOLINE CHLORIDE 200 MG/10 ML SYRINGE ONE (14:53)
[2019-08-23] MEDS ORDERED: MIDAZOLAM HCL 2 MG/2 ML SINGLE DOSE VIAL ONE (14:54)
--- NOTE | 2019-08-23 16:36 | OP ---
Operative Note - Note: Operative Date: 08/23/19 Pre-Operative Diagnosis: Infected Hip wound Operation: Removal wound vac Iand D Delayed primary closure Findings: Healthy but pale granulation tissue Deep cavity persists due to soft tissue induration. Surgeon: Albert Moya Anesthesia: General Estimated Blood Loss (mls): 10 Operative Report Dictated: Yes
--- NOTE | 2019-08-23 16:39 | PN ---
Progress Note (short form) - Note Progress Note: 64F p/w left hip wound dehiscence now s/p I&D left hip wound with application woundvac POD #0. Deep cavity persists. No purulence seen. Wound Dimensions: Length: 9cm. Width: 3cm. Depth: 6cm. -Pain control. -DVT PPx: -Chemical: ASA 81mg PO qD. -Mechanical: SOUTH's, SCD's. -Incentive spirometry q15 min. -PT/OT/Rehab, OOB. -WBAT RLE; NWB LLE. -f/u post-op TOV: 8 hours max. -Diet as tolerated. -Continue Linezolid; f/u antibiotic rec's as per ID team. -Care per medical hospitalist & ID teams. -Plan D/C home tomorrow for repeat -Discharge planning: home w/services; f/u 7-10 days after rehab [facility]; call for appointment; . Albert Moya MD (Orthopaedic Surgery).
[2019-08-23] MEDS ORDERED: ONDANSETRON 4 MG/2 ML VIAL IVPUSH PRN (16:45)
--- NOTE | 2019-08-23 17:01 | PN ---
Progress Note (short form) - Note Progress Note: Hospitalist Medicine Pt seen in AM. c/o hunger, using rolling wheelchair in hallway Vitals 08/23/19 15:41 Temperature 98.1 F Pulse Rate 96 H Respiratory 20 Rate Blood Pressure 176/85 H Physical Exam (would not permit this AM) Laboratory Tests 08/23/19 08/23/19 07:45 07:45 WBC 8.7 Hgb 10.6 L Hct 33.1 Plt Count 338 Sodium 141 Potassium 4.3 Chloride 109 H Carbon Dioxide 26 BUN 14.0 Creatinine 1.2 Random Glucose 111 H Microbiology 08/20/19 08:15 Hip - Left Gram Stain - Final 08/20/19 08:15 Hip - Left Wound Culture - Final Bacillus Species, Not Antracis Enterobacter Cancerogenous Assessment/Plan 64 y/o F with PMH HTN, osteoarthritis, SLE in remission, anxiety, overactive bladder, LEFT total hip arthroplasty s/p washouts and wound vac due to chronic LEFT wound ulcers, and 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 #s/p I&D left hip wound with wound vac POD #0. -Oxycodone 30 mg po q4h PRN, on oxycontin 80mg PO BID at home -linezolid has been d/c, started on zosyn (08/20) -c/w IS, PT -f/u wound cx -post-op TOV: 8 hours max. -WBAT RLE; NWB LLE. -ID: Dr. Munoz -Sx: Dr. Moya #HTN -not on home agents; confirmed w/ pharmacy -controlled when pt not in pain, will reevaluate # Smoking cessation -c/w nicotine patch # F/E/N -LR 75 cc/hr > can d/c if tolerating diet -c/t follow lytes -fat/na controlled diet # DVT prophylaxis -TEDs/SCD's -asa 81mg BID per sx for chemical PPX # Dispo c/t monitor on med-surg per sx: Plan D/C home tomorrow for repeat on IV abx will need to change to PO tomorrow Discharge planning: home w/services; f/u 7-10 days after rehab discharge at [facility] office; call for appointment;
[2019-08-23] MEDS ORDERED: oxyCODONE HCL 5 MG TABLET ONE (17:22)
[2019-08-24] MEDS ORDERED: PIPERACILLIN/TAZOBACTAM 3.375 GM VIAL IVPB ONE ×3 (01:39→17:22)
[2019-08-24] MEDS ORDERED: DEXTROSE 5%-WATER - 50 ML IVPB ONE ×3 (01:39→17:22)
[2019-08-24] MEDS: PIPERACILLIN/TAZOB 3.375 GM 3.375 GM in DEXTROSE 5%-WATER - 50 ML IVPB SCH ×3 (01:42→17:55)
[2019-08-24] MEDS: oxyCODONE HCL 5 MG TABLET PO PRN ×6 (01:43→21:48)
[2019-08-24] MEDS: OXYBUTYNIN CHLORIDE 5 MG TABLET PO SCH ×3 (06:03→21:44)
[2019-08-24] MEDS: PREGABALIN 50 MG CAPSULE PO SCH ×3 (06:03→21:44)
[2019-08-24] MEDS: PANTOPRAZOLE 40 MG TABLET (FP) PO SCH (10:36)
[2019-08-24] MEDS: oxyCODONE HCL 40 MG SUSTAINED ACTING TABLET PO SCH ×2 (10:40→21:43)
[2019-08-24] MEDS: DULoxetine HCL 30 MG CAPSULE.DR PO SCH ×2 (10:41→21:44)
[2019-08-24] MEDS: ASPIRIN 81 MG CHEWABLE TABLETS PO SCH ×2 (10:42→21:44)
[2019-08-24] MEDS: SENNOSIDES/DOCUSATE COMBO (SENNA PLUS) TABLET (UD) PO PRN (10:53)
--- NOTE | 2019-08-24 13:40 | PN ---
Progress Note, Physician History of Present Illness: Events noted. Pt is s/p removal of wound vac/I+D/delayed closure Lt hip. Afebrile. No specific complaints. - Current Medication List Current Medications: Active Medications Al Hydroxide/Mg Hydroxide (Mylanta Oral Suspension -) 30 ml PO Q4H PRN PRN Reason: DYSPEPSIA Aspirin (Asa -) 81 mg PO BID [facility] Last Admin: 08/24/19 10:42 Dose: 81 mg Duloxetine HCl (Cymbalta -) 30 mg PO BID [facility] Last Admin: 08/24/19 10:41 Dose: 30 mg Fentanyl (Sublimaze Injection -) 50 mcg IVPUSH [id number] PRN PRN Reason: PAIN-PACU ORDER X 4 DOSES ONLY Piperacillin Sod/Tazobactam (Sod 3.375 gm/ Dextrose) 50 mls @ 100 mls/hr IVPB Q8H-IV [facility]; Protocol Last Admin: 08/24/19 10:35 Dose: 100 mls/hr Lactated Ringer's (Lactated Ringers Solution) 1,000 mls @ 75 mls/hr IV ASDIR [facility] Last Admin: 08/23/19 18:21 Dose: 75 mls/hr Magnesium Hydroxide (Milk Of Magnesia -) 30 ml PO PRN PRN PRN Reason: CONSTIPATION Nicotine (Nicoderm Patch -) 7 mg TD DAILY PRN PRN Reason: AGITATION Ondansetron HCl (Zofran Injection) 4 mg IVPUSH Q6H PRN PRN Reason: NAUSEA AND/OR VOMITING Oxybutynin Chloride (Ditropan -) 5 mg PO TID [facility] Last Admin: 08/24/19 06:03 Dose: 5 mg Oxycodone HCl (Roxicodone -) 30 mg PO Q4H PRN PRN Reason: PAIN LEVEL 6-10 Last Admin: 08/24/19 09:59 Dose: 30 mg Oxycodone HCl (Oxycontin -) 80 mg PO BID [facility] Last Admin: 08/24/19 10:40 Dose: 80 mg Pantoprazole Sodium (Protonix -) 40 mg PO DAILY [facility] Last Admin: 08/24/19 10:36 Dose: 40 mg Pregabalin (Lyrica -) 100 mg PO TID [facility] Last Admin: 08/24/19 06:03 Dose: 100 mg Promethazine HCl (Phenergan Injection -) 12.5 mg IVPUSH Q6H PRN PRN Reason: NAUSEA-FOR RESCUE AFTER 15 MIN Senna/Docusate Sodium (Pericolace -) 2 tablet PO BID PRN PRN Reason: CONSTIPATION Last Admin: 08/24/19 10:53 Dose: 2 tablet - Objective Vital Signs: Vital Signs Temperature 98.0 F 08/24/19 11:33 Pulse Rate 102 H 08/24/19 11:33 Respiratory Rate 20 08/24/19 11:33 Blood Pressure 161/79 08/24/19 11:33 O2 Sat by Pulse Oximetry (%) 96 08/24/19 09:00 Constitutional: Yes: No Distress, Calm Cardiovascular: Yes: Regular Rate and Rhythm Respiratory: Yes: Regular Gastrointestinal: Yes: Normal Bowel Sounds, Soft Genitourinary: Yes: WNL Wound/Incision: Yes: Dressing Dry and Intact Neurological: Yes: Alert Labs: CBC, BMP 08/23/19 07:45 08/23/19 07:45 INR, PTT INR 0.97 (0.83-1.09) 08/20/19 17:25 Microbiology 08/23/19 16:25 Hip - Left Gram Stain - Final 08/20/19 08:15 Hip - Left Gram Stain - Final 08/20/19 08:15 Hip - Left Wound Culture - Final Bacillus Species, Not Antracis Enterobacter Cancerogenous Problem List - Problems (1) Anemia Code(s): D64.9 - ANEMIA, UNSPECIFIED (2) Chronic pain Code(s): G89.29 - OTHER CHRONIC PAIN (3) Depression Code(s): F32.9 - MAJOR DEPRESSIVE DISORDER, SINGLE EPISODE, UNSPECIFIED (4) HTN (hypertension) Code(s): I10 - ESSENTIAL (PRIMARY) HYPERTENSION (5) Infection of lower extremity associated with hardware Code(s): T84.7XXA - INFECT/INFLM REACT DUE TO OTH INT ORTH PROSTH DEV/GRFT, INIT Assessment/Plan Lt hip recurrent wound infection s/p I+D/delayed closure/wound vac removal POD#1 s/p Lt KASH - f/u wound culture results - pending -- continue current antibiotics, plan is to switch to po antibiotics based on culture results -- Orthopedics following
[2019-08-24 13:42] LABS: BASO % 0.6 % (0-2.0); EOS % 4.1 % (0-4.5); HEMATOCRIT 32.4 % (32.4-45.2); HEMOGLOBIN 10.6 GM/dL (10.7-15.3); LYMPH % 16.5 % (8-40); MCH 23.8 pg (25.7-33.7); MCHC 32.8 g/dl (32.0-36.0); MEAN CELL VOLUME 72.5 fl (80-96); MEAN PLT VOLUME 7.2 fl (7.5-11.1); MONO % 6.2 % (3.8-10.2); NEUT % 72.6 % (42.8-82.8); PLATELET COUNT 389 K/MM3 (134-434); RBC 4.46 M/mm3 (3.60-5.2); RDW 18.4 % (11.6-15.6); WHITE BLOOD COUNT 10.6 K/mm3 (4.0-10.0)
[2019-08-24] MEDS ORDERED: PT OWN MED DRAWER 7, Y5N ONE ×2 (13:45→21:41)
[2019-08-24] MEDS: LACTATED RINGERS SOLUTION 1,000 ML IV SCH ×2 (13:56→17:51)
--- NOTE | 2019-08-24 14:02 | PN ---
Physical Exam: SUBJECTIVE: Patient seen and examined. Complaining of L hip pain stable. Denies other complaints. OBJECTIVE: Vital Signs Period Temp Pulse Resp BP Sys/Vargas Pulse Ox Last 24 Hr 97.9 F-100 F 85-110 10-20 148-194/74-92 96-100 GENERAL: The patient is awake, alert, and fully oriented, in no acute distress. NECK: supple. LUNGS: Breath sounds equal, clear to auscultation bilaterally, no wheezes, no crackles, no accessory muscle use. HEART: Regular rate and rhythm, S1, S2 ABDOMEN: Soft, nontender, nondistended, normoactive bowel sounds EXTREMITIES: 2+ pulses, warm, well-perfused, no edema. + L hip tenderness + dressing c/d PSYCH: Normal mood, normal affect. Laboratory Results - last 24 hr 08/24/19 12:48 WBC 10.6 H RBC 4.46 Hgb 10.6 L Hct 32.4 MCV 72.5 L MCH 23.8 L MCHC 32.8 RDW 18.4 H Plt Count 389 MPV 7.2 L Absolute Neuts (auto) 7.7 Neutrophils % 72.6 Lymphocytes % 16.5 Monocytes % 6.2 Eosinophils % 4.1 Basophils % 0.6 Nucleated RBC % 0 Active Medications Generic Name Dose Route Start Last Admin Trade Name Freq PRN Reason Stop Dose Admin Al Hydroxide/Mg Hydroxide 30 ml 08/19/19 22:23 Mylanta Oral Suspension - PO Q4H PRN DYSPEPSIA Aspirin 81 mg 08/20/19 10:00 08/24/19 10:42 Asa - PO 81 mg BID [facility] Administration Duloxetine HCl 30 mg 08/20/19 10:00 08/24/19 10:41 Cymbalta - PO 30 mg BID [facility] Administration Fentanyl 50 mcg 08/23/19 16:45 Sublimaze Injection - IVPUSH [id number] PRN PAIN-PACU ORDER X 4 DOSES ONLY Piperacillin Sod/Tazobactam 50 mls @ 100 mls/hr 08/20/19 17:15 08/24/19 10:35 Sod 3.375 gm/ Dextrose IVPB 100 mls/hr Q8H-IV [facility] Administration Protocol Lactated Ringer's 1,000 mls @ 75 mls/hr 08/23/19 16:45 08/23/19 18:21 Lactated Ringers Solution IV 75 mls/hr ASDIR [facility] Administration Magnesium Hydroxide 30 ml 08/19/19 22:23 Milk Of Magnesia - PO PRN PRN CONSTIPATION Nicotine 7 mg 08/20/19 05:14 Nicoderm Patch - TD DAILY PRN AGITATION Ondansetron HCl 4 mg 08/23/19 16:45 Zofran Injection IVPUSH Q6H PRN NAUSEA AND/OR VOMITING Oxybutynin Chloride 5 mg 08/20/19 06:00 08/24/19 06:03 Ditropan - PO 5 mg TID [facility] Administration Oxycodone HCl 30 mg 08/19/19 22:22 08/24/19 09:59 Roxicodone - PO 30 mg Q4H PRN Administration PAIN LEVEL 6-10 Oxycodone HCl 80 mg 08/20/19 10:00 08/24/19 10:40 Oxycontin - PO 80 mg BID [facility] Administration Pantoprazole Sodium 40 mg 08/20/19 10:00 08/24/19 10:36 Protonix - PO 40 mg DAILY [facility] Administration Pregabalin 100 mg 08/20/19 23:00 08/24/19 06:03 Lyrica - PO 100 mg TID [facility] Administration Promethazine HCl 12.5 mg 08/19/19 22:25 Phenergan Injection - IVPUSH Q6H PRN NAUSEA-FOR RESCUE AFTER 15 MIN Senna/Docusate Sodium 2 tablet 08/19/19 22:22 08/24/19 10:53 Pericolace - PO 2 tablet BID PRN Administration CONSTIPATION ASSESSMENT/PLAN: 64 yo F multiple medical problems w/ chronic L wound ulcer w/ LEFT total hip arthroplasty, 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 -ID and surgery f/u # c/w rest of chronic home meds # dvt ppx: asa 81 bid , SCDs # Dispo - home /monday -awaiting culture Problem List - Problems (1) Chronic pain Code(s): G89.29 - OTHER CHRONIC PAIN (2) HTN (hypertension) Code(s): I10 - ESSENTIAL (PRIMARY) HYPERTENSION (3) Infection of lower extremity associated with hardware Code(s): T84.7XXA - INFECT/INFLM REACT DUE TO OTH INT ORTH PROSTH DEV/GRFT, INIT (4) Wound, open, hip or thigh Code(s): [id number] - Visit type - Emergency Visit Emergency Visit: Yes ED Registration Date: 08/19/19 Care time: The patient presented to the Emergency Department on the above date and was hospitalized for further evaluation of their emergent condition. - New Patient This patient is new to me today: Yes Date on this admission: 08/24/19 - Critical Care Critical Care patient: No - Discharge Referral Referred to [facility] Med P.C.: Yes
[2019-08-24 14:04] LABS: BLOOD UREA NITROGEN 17.5 mg/dL (7-18); CALCIUM 9.1 mg/dL (8.5-10.1); MAGNESIUM 2.1 mg/dL (1.8-2.4); PHOSPHOROUS 3.3 mg/dL (2.5-4.9); POTASSIUM 4.1 mmol/L (3.5-5.1)
[2019-08-24] MEDS: MAGNESIUM HYDROX 2400MG/30ML ORAL SUSPENSION 30 ML CUP PO PRN (16:31)
[2019-08-24] MEDS: DOCUSATE SODIUM 100 MG CAPSULE (FP) PO SCH (17:55)
[2019-08-24] MEDS: POLYETHYLENE GLYCOL 3350 119 GM BTL PO SCH (17:55)
[2019-08-24] MEDS: SENNOSIDES 8.6MG TABLET (FP) PO SCH (21:44)
[2019-08-25] MEDS ORDERED: PIPERACILLIN/TAZOBACTAM 3.375 GM VIAL IVPB ONE ×3 (01:28→17:29)
[2019-08-25] MEDS ORDERED: DEXTROSE 5%-WATER - 50 ML IVPB ONE ×3 (01:28→17:29)
[2019-08-25] MEDS: PIPERACILLIN/TAZOB 3.375 GM 3.375 GM in DEXTROSE 5%-WATER - 50 ML IVPB SCH ×3 (01:55→18:21)
[2019-08-25] MEDS: oxyCODONE HCL 5 MG TABLET PO PRN ×4 (02:03→14:57)
[2019-08-25] MEDS: OXYBUTYNIN CHLORIDE 5 MG TABLET PO SCH ×3 (05:57→22:43)
[2019-08-25] MEDS: PREGABALIN 50 MG CAPSULE PO SCH ×3 (05:57→22:42)
[2019-08-25] MEDS ORDERED: PT OWN MED DRAWER 7, Y5N ONE ×2 (10:27→21:23)
[2019-08-25] MEDS: SENNOSIDES 8.6MG TABLET (FP) PO SCH ×2 (10:37→22:42)
[2019-08-25] MEDS: DOCUSATE SODIUM 100 MG CAPSULE (FP) PO SCH (10:37)
[2019-08-25] MEDS: ASPIRIN 81 MG CHEWABLE TABLETS PO SCH ×2 (10:37→22:43)
[2019-08-25] MEDS: DULoxetine HCL 30 MG CAPSULE.DR PO SCH ×2 (10:37→22:43)
[2019-08-25] MEDS: oxyCODONE HCL 40 MG SUSTAINED ACTING TABLET PO SCH ×2 (10:37→22:41)
[2019-08-25] MEDS: PANTOPRAZOLE 40 MG TABLET (FP) PO SCH (10:37)
[2019-08-25] MEDS: POLYETHYLENE GLYCOL 3350 119 GM BTL PO SCH (10:38)
--- NOTE | 2019-08-25 14:18 | PN ---
Physical Exam: SUBJECTIVE: Patient seen and examined. Complaining of L hip pain stable. Denies other complaints. OBJECTIVE: Vital Signs Period Temp Pulse Resp BP Sys/Vargas Pulse Ox Last 24 Hr 98 F-98.5 F 82-91 18-20 132-143/52-85 96 GENERAL: The patient is awake, alert, and fully oriented, in no acute distress. NECK: supple. LUNGS: Breath sounds equal, clear to auscultation bilaterally, no wheezes, no crackles, no accessory muscle use. HEART: Regular rate and rhythm, S1, S2 ABDOMEN: Soft, nontender, nondistended, normoactive bowel sounds EXTREMITIES: 2+ pulses, warm, well-perfused, no edema. + L hip tenderness + dressing c/d PSYCH: Normal mood, normal affect. Active Medications Generic Name Dose Route Start Last Admin Trade Name Freq PRN Reason Stop Dose Admin Al Hydroxide/Mg Hydroxide 30 ml 08/19/19 22:23 Mylanta Oral Suspension - PO Q4H PRN DYSPEPSIA Aspirin 81 mg 08/20/19 10:00 08/25/19 10:37 Asa - PO 81 mg BID ELKE Administration Docusate Sodium 100 mg 08/24/19 16:45 08/25/19 10:37 Colace - PO 100 mg DAILY ELKE Administration Duloxetine HCl 30 mg 08/20/19 10:00 08/25/19 10:37 Cymbalta - PO 30 mg BID ELKE Administration Fentanyl 50 mcg 08/23/19 16:45 Sublimaze Injection - IVPUSH [id number] PRN PAIN-PACU ORDER X 4 DOSES ONLY Piperacillin Sod/Tazobactam 50 mls @ 100 mls/hr 08/20/19 17:15 08/25/19 10:38 Sod 3.375 gm/ Dextrose IVPB 100 mls/hr Q8H-IV ELKE Administration Protocol Lactated Ringer's 1,000 mls @ 75 mls/hr 08/23/19 16:45 08/24/19 17:51 Lactated Ringers Solution IV Not Given ASDIR ELKE Magnesium Hydroxide 30 ml 08/19/19 22:23 08/24/19 16:31 Milk Of Magnesia - PO 30 ml PRN PRN Administration CONSTIPATION Nicotine 7 mg 08/20/19 05:14 Nicoderm Patch - TD DAILY PRN AGITATION Ondansetron HCl 4 mg 08/23/19 16:45 Zofran Injection IVPUSH Q6H PRN NAUSEA AND/OR VOMITING Oxybutynin Chloride 5 mg 08/20/19 06:00 08/25/19 05:57 Ditropan - PO 5 mg TID ELKE Administration Oxycodone HCl 30 mg 08/19/19 22:22 08/25/19 11:47 Roxicodone - PO 30 mg Q4H PRN Administration PAIN LEVEL 6-10 Oxycodone HCl 80 mg 08/20/19 10:00 08/25/19 10:37 Oxycontin - PO 80 mg BID ELKE Administration Pantoprazole Sodium 40 mg 08/20/19 10:00 08/25/19 10:37 Protonix - PO 40 mg DAILY ELKE Administration Polyethylene Glycol 17 gm 08/24/19 16:45 08/25/19 10:38 Miralax (For Daily Use) - PO 17 grams DAILY ELKE Administration Pregabalin 100 mg 08/20/19 23:00 08/25/19 05:57 Lyrica - PO 100 mg TID ELKE Administration Promethazine HCl 12.5 mg 08/19/19 22:25 Phenergan Injection - IVPUSH Q6H PRN NAUSEA-FOR RESCUE AFTER 15 MIN Senna 1 tab 08/24/19 22:00 08/25/19 10:37 Senna - PO 1 tab BID ELKE Administration ASSESSMENT/PLAN: 64 yo F multiple medical problems w/ chronic L wound ulcer w/ LEFT total hip arthroplasty, 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 Gram stain culture collected on 08/20 growing enterobacter cancerogenous and pre jean wound culture collected on 08/23 negative - Ortho f/u # c/w rest of chronic home meds # dvt ppx: asa 81 bid , SCDs Problem List - Problems (1) Chronic pain Code(s): G89.29 - OTHER CHRONIC PAIN (2) HTN (hypertension) Code(s): I10 - ESSENTIAL (PRIMARY) HYPERTENSION (3) Infection of lower extremity associated with hardware Code(s): T84.7XXA - INFECT/INFLM REACT DUE TO OTH INT ORTH PROSTH DEV/GRFT, INIT (4) Wound, open, hip or thigh Code(s): VWH7714 - Visit type - Emergency Visit Emergency Visit: Yes ED Registration Date: 08/19/19 Care time: The patient presented to the Emergency Department on the above date and was hospitalized for further evaluation of their emergent condition. - New Patient This patient is new to me today: No - Critical Care Critical Care patient: No - Discharge Referral Referred to [facility] Med P.C.: No
--- NOTE | 2019-08-25 14:49 | PN ---
Progress Note, Physician History of Present Illness: Pt is alert, without distress. c/o pain. - Current Medication List Current Medications: Active Medications Al Hydroxide/Mg Hydroxide (Mylanta Oral Suspension -) 30 ml PO Q4H PRN PRN Reason: DYSPEPSIA Aspirin (Asa -) 81 mg PO BID [facility] Last Admin: 08/25/19 10:37 Dose: 81 mg Docusate Sodium (Colace -) 100 mg PO DAILY [facility] Last Admin: 08/25/19 10:37 Dose: 100 mg Duloxetine HCl (Cymbalta -) 30 mg PO BID [facility] Last Admin: 08/25/19 10:37 Dose: 30 mg Fentanyl (Sublimaze Injection -) 50 mcg IVPUSH [id number] PRN PRN Reason: PAIN-PACU ORDER X 4 DOSES ONLY Piperacillin Sod/Tazobactam (Sod 3.375 gm/ Dextrose) 50 mls @ 100 mls/hr IVPB Q8H-IV [facility]; Protocol Last Admin: 08/25/19 10:38 Dose: 100 mls/hr Lactated Ringer's (Lactated Ringers Solution) 1,000 mls @ 75 mls/hr IV ASDIR [facility] Last Admin: 08/24/19 17:51 Dose: Not Given Magnesium Hydroxide (Milk Of Magnesia -) 30 ml PO PRN PRN PRN Reason: CONSTIPATION Last Admin: 08/24/19 16:31 Dose: 30 ml Nicotine (Nicoderm Patch -) 7 mg TD DAILY PRN PRN Reason: AGITATION Ondansetron HCl (Zofran Injection) 4 mg IVPUSH Q6H PRN PRN Reason: NAUSEA AND/OR VOMITING Oxybutynin Chloride (Ditropan -) 5 mg PO TID [facility] Last Admin: 08/25/19 05:57 Dose: 5 mg Oxycodone HCl (Roxicodone -) 30 mg PO Q4H PRN PRN Reason: PAIN LEVEL 6-10 Last Admin: 08/25/19 11:47 Dose: 30 mg Oxycodone HCl (Oxycontin -) 80 mg PO BID [facility] Last Admin: 08/25/19 10:37 Dose: 80 mg Pantoprazole Sodium (Protonix -) 40 mg PO DAILY [facility] Last Admin: 08/25/19 10:37 Dose: 40 mg Polyethylene Glycol (Miralax (For Daily Use) -) 17 gm PO DAILY [facility] Last Admin: 08/25/19 10:38 Dose: 17 grams Pregabalin (Lyrica -) 100 mg PO TID [facility] Last Admin: 08/25/19 05:57 Dose: 100 mg Promethazine HCl (Phenergan Injection -) 12.5 mg IVPUSH Q6H PRN PRN Reason: NAUSEA-FOR RESCUE AFTER 15 MIN Senna (Senna -) 1 tab PO BID [facility] Last Admin: 08/25/19 10:37 Dose: 1 tab - Objective Vital Signs: Vital Signs Temperature 98 F 08/25/19 04:56 Pulse Rate 82 08/25/19 04:56 Respiratory Rate 18 08/25/19 04:56 Blood Pressure 143/85 08/25/19 04:56 O2 Sat by Pulse Oximetry (%) 96 08/24/19 21:00 Constitutional: Yes: No Distress, Calm Cardiovascular: Yes: Regular Rate and Rhythm Respiratory: Yes: Regular Gastrointestinal: Yes: Normal Bowel Sounds, Soft Genitourinary: Yes: WNL Wound/Incision: Yes: Dressing Dry and Intact (Lt hip) Neurological: Yes: Alert Labs: CBC, BMP 08/24/19 12:48 08/24/19 12:48 INR, PTT INR 0.97 (0.83-1.09) 08/20/19 17:25 Microbiology 08/23/19 16:25 Hip - Left Gram Stain - Final 08/23/19 16:25 Hip - Left Wound Culture - Preliminary NO GROWTH OBTAINED AFTER 24 HOURS INCUBATION, REINCUBATED. 08/20/19 08:15 Hip - Left Gram Stain - Final 08/20/19 08:15 Hip - Left Wound Culture - Final Bacillus Species, Not Antracis Enterobacter Cancerogenous Problem List - Problems (1) Anemia Code(s): D64.9 - ANEMIA, UNSPECIFIED (2) Chronic pain Code(s): G89.29 - OTHER CHRONIC PAIN (3) Depression Code(s): F32.9 - MAJOR DEPRESSIVE DISORDER, SINGLE EPISODE, UNSPECIFIED (4) HTN (hypertension) Code(s): I10 - ESSENTIAL (PRIMARY) HYPERTENSION (5) Infection of lower extremity associated with hardware Code(s): T84.7XXA - INFECT/INFLM REACT DUE TO OTH INT ORTH PROSTH DEV/GRFT, INIT Assessment/Plan Lt hip recurrent wound infection s/p I+D/delayed closure/wound vac removal POD#2 s/p Lt KASH - wound cultures neg so far - will consider switch to Levaquin po tomorrow, previous culture results noted - Orthopedics follow up
[2019-08-25] MEDS: LACTATED RINGERS SOLUTION 1,000 ML IV SCH (16:57)
[2019-08-26] MEDS: oxyCODONE HCL 5 MG TABLET PO PRN ×4 (00:55→14:14)
[2019-08-26] MEDS: MAGNESIUM HYDROX 2400MG/30ML ORAL SUSPENSION 30 ML CUP PO PRN ×2 (00:55→13:00)
[2019-08-26] MEDS ORDERED: PIPERACILLIN/TAZOBACTAM 3.375 GM VIAL IVPB ONE ×2 (01:06→10:38)
[2019-08-26] MEDS ORDERED: DEXTROSE 5%-WATER - 50 ML IVPB ONE ×2 (01:07→10:38)
[2019-08-26] MEDS: PIPERACILLIN/TAZOB 3.375 GM 3.375 GM in DEXTROSE 5%-WATER - 50 ML IVPB SCH ×2 (01:28→10:48)
[2019-08-26] MEDS: PREGABALIN 50 MG CAPSULE PO SCH ×2 (06:46→15:30)
[2019-08-26] MEDS: OXYBUTYNIN CHLORIDE 5 MG TABLET PO SCH ×2 (06:47→14:14)
[2019-08-26] MEDS ORDERED: PT OWN MED DRAWER 7, Y5N ONE (10:38)
[2019-08-26] MEDS: oxyCODONE HCL 40 MG SUSTAINED ACTING TABLET PO SCH (10:45)
[2019-08-26] MEDS: DULoxetine HCL 30 MG CAPSULE.DR PO SCH (10:48)
[2019-08-26] MEDS: PANTOPRAZOLE 40 MG TABLET (FP) PO SCH (10:48)
[2019-08-26] MEDS: ASPIRIN 81 MG CHEWABLE TABLETS PO SCH (10:48)
[2019-08-26] MEDS: DOCUSATE SODIUM 100 MG CAPSULE (FP) PO SCH (10:48)
[2019-08-26] MEDS: SENNOSIDES 8.6MG TABLET (FP) PO SCH (10:48)
[2019-08-26] MEDS: POLYETHYLENE GLYCOL 3350 119 GM BTL PO SCH (10:56)
[2019-08-26] MEDS ORDERED: oxyCODONE HCL 20 MG SUSTAINED ACTING TABLET PO ONE (11:56)
--- NOTE | 2019-08-26 14:06 | PN ---
Progress Note, Physician History of Present Illness: patient stable no new issues - Current Medication List Current Medications: Active Medications Al Hydroxide/Mg Hydroxide (Mylanta Oral Suspension -) 30 ml PO Q4H PRN PRN Reason: DYSPEPSIA Aspirin (Asa -) 81 mg PO BID [facility] Last Admin: 08/26/19 10:48 Dose: 81 mg Docusate Sodium (Colace -) 100 mg PO DAILY [facility] Last Admin: 08/26/19 10:48 Dose: 100 mg Duloxetine HCl (Cymbalta -) 30 mg PO BID [facility] Last Admin: 08/26/19 10:48 Dose: 30 mg Fentanyl (Sublimaze Injection -) 50 mcg IVPUSH [id number] PRN PRN Reason: PAIN-PACU ORDER X 4 DOSES ONLY Piperacillin Sod/Tazobactam (Sod 3.375 gm/ Dextrose) 50 mls @ 100 mls/hr IVPB Q8H-IV [facility]; Protocol Last Admin: 08/26/19 10:48 Dose: 100 mls/hr Lactated Ringer's (Lactated Ringers Solution) 1,000 mls @ 75 mls/hr IV ASDIR [facility] Last Admin: 08/25/19 16:57 Dose: Not Given Magnesium Hydroxide (Milk Of Magnesia -) 30 ml PO PRN PRN PRN Reason: CONSTIPATION Last Admin: 08/26/19 13:00 Dose: 30 ml Nicotine (Nicoderm Patch -) 7 mg TD DAILY PRN PRN Reason: AGITATION Ondansetron HCl (Zofran Injection) 4 mg IVPUSH Q6H PRN PRN Reason: NAUSEA AND/OR VOMITING Oxybutynin Chloride (Ditropan -) 5 mg PO TID [facility] Last Admin: 08/26/19 06:47 Dose: 5 mg Oxycodone HCl (Oxycontin -) 80 mg PO BID [facility] Last Admin: 08/26/19 10:45 Dose: Not Given Oxycodone HCl (Roxicodone -) 30 mg PO Q4H PRN PRN Reason: PAIN LEVEL 6-10 Last Admin: 08/26/19 10:49 Dose: 30 mg Pantoprazole Sodium (Protonix -) 40 mg PO DAILY [facility] Last Admin: 08/26/19 10:48 Dose: 40 mg Polyethylene Glycol (Miralax (For Daily Use) -) 17 gm PO DAILY [facility] Last Admin: 08/25/19 10:38 Dose: 17 grams Pregabalin (Lyrica -) 100 mg PO TID [facility] Last Admin: 08/26/19 06:46 Dose: 100 mg Promethazine HCl (Phenergan Injection -) 12.5 mg IVPUSH Q6H PRN PRN Reason: NAUSEA-FOR RESCUE AFTER 15 MIN Senna (Senna -) 1 tab PO BID [facility] Last Admin: 08/26/19 10:48 Dose: 1 tab - Objective Vital Signs: Vital Signs Temperature 98.0 F 08/26/19 10:55 Pulse Rate 108 H 08/26/19 10:55 Respiratory Rate 18 08/26/19 10:55 Blood Pressure 148/85 08/26/19 10:55 O2 Sat by Pulse Oximetry (%) 100 08/25/19 09:00 Constitutional: Yes: No Distress, Calm Cardiovascular: Yes: S1, S2 Respiratory: Yes: Regular, CTA Bilaterally Gastrointestinal: Yes: Normal Bowel Sounds, Soft Musculoskeletal: Yes: WNL Extremities: Yes: Other Wound/Incision: Yes: Other Neurological: Yes: Alert, Oriented Psychiatric: Yes: Alert, Oriented Labs: CBC, BMP 08/24/19 12:48 08/24/19 12:48 INR, PTT INR 0.97 (0.83-1.09) 08/20/19 17:25 Assessment/Plan Problem List - Problems (1) Anemia Code(s): D64.9 - ANEMIA, UNSPECIFIED (2) Chronic pain Code(s): G89.29 - OTHER CHRONIC PAIN (3) Depression Code(s): F32.9 - MAJOR DEPRESSIVE DISORDER, SINGLE EPISODE, UNSPECIFIED (4) HTN (hypertension) Code(s): I10 - ESSENTIAL (PRIMARY) HYPERTENSION (5) Infection of lower extremity associated with hardware Code(s): T84.7XXA - INFECT/INFLM REACT DUE TO OTH INT ORTH PROSTH DEV/GRFT, INIT Assessment/Plan Lt hip recurrent wound infection s/p I+D/delayed closure/wound vac removal POD#2 s/p Lt KASH plan can switch to oral levaquin follow up iwth her primary wound care rest as per the team
[2019-08-26 14:57] VITALS: BP 160/87; PULSE 89; TEMP 98.2
[2019-08-26] MEDS: LACTATED RINGERS SOLUTION 1,000 ML IV SCH (17:51)
--- NOTE | 2019-08-26 18:58 | DS ---
Physical Exam: SUBJECTIVE: Patient seen and examined at bedside. Pt out of control on d/c, claiming she needs more pain meds. Discussed istop results with pt. OBJECTIVE: Vital Signs Period Temp Pulse Resp BP Sys/Vargas Pulse Ox Last 24 Hr 97.9 F-98.2 F 85-108 128-160/79-87 Physical Exam (would not permit this AM) LABS 08/20/19 08/21/19 08/22/19 05:30 07:39 08:05 WBC 8.7 9.1 9.4 Hgb 11.5 10.8 10.9 Hct 35.3 33.3 33.7 Plt Count 290 289 339 08/23/19 08/24/19 07:45 12:48 WBC 8.7 10.6 H Hgb 10.6 L 10.6 L Hct 33.1 32.4 Plt Count 338 389 08/20/19 08/21/19 08/22/19 05:30 07:39 08:05 Sodium 139 140 139 Potassium 4.4 4.4 4.2 Chloride 107 109 H 109 H Carbon Dioxide 22 23 24 BUN 17.6 23.0 H 18.1 H Creatinine 1.1 1.2 0.9 08/23/19 08/24/19 07:45 12:48 Sodium 141 138 Potassium 4.3 4.1 Chloride 109 H 105 Carbon Dioxide 26 24 BUN 14.0 17.5 Creatinine 1.2 1.0 Microbiology 08/23/19 16:25 Hip - Left Gram Stain - Final 08/23/19 16:25 Hip - Left Wound Culture - Final NO GROWTH OF AEROBIC ORGANISMS AFTER 48 HOURS INCUBATION 08/20/19 08:15 Hip - Left Gram Stain - Final 08/20/19 08:15 Hip - Left Wound Culture - Final Bacillus Species, Not Antracis Enterobacter Cancerogenous HOSPITAL COURSE: Date of Admission:08/19/19 Date of Discharge: 08/26/19 Assessment/Plan 64 y/o F with PMH HTN, osteoarthritis, SLE in remission, anxiety, overactive bladder, LEFT total hip arthroplasty s/p washouts and wound vac due to chronic LEFT wound ulcers, and 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 #s/p I&D left hip wound s/p wound vac removal -Oxycodone 30 mg po q4h PRN, on oxycontin 80mg PO BID at home per sx recs -pt belligerent on d/c, requesting increased doses of oxycontin. pt istopped. received 90 day supply earlier in July -calls placed to sx -linezolid has been d/c, was on zosyn 7 day course d/c home on levaquin to complete. -c/w IS, PT -WBAT RLE; NWB LLE. -ID: Dr. Munoz -Sx: Dr. Moya f/u in office as outpt #HTN -not on home agents; confirmed w/ pharmacy -controlled when pt not in pain, will reevaluate # Smoking cessation -c/w nicotine patch DVT PPX -asa 81mg BID per sx for chemical PPX Plan : home for repeat procedure after dc per sx Minutes to complete discharge: 55 Discharge Summary Problems reviewed: No Reason For Visit: LOOSENING LT HIP Condition: Good - Instructions Diet, Activity, Other Instructions: You were in the hospital because you had a Left hip wound infection. You underwent a surgical procedure, and were maintained on IV antibiotics. You also were managed with a wound vac, that has since been removed. You improved and are being discharged home. Medications 1. Please take Levaquin 750mg one tablet daily, for the next 5 days starting tomorrow (08/27). This is to help treat your hip infection. 2. You may continue your pain meds (oxycontin) as has been rx by your surgeon. 3. You may continue your other home meds 4. Please continue to take aspirin 81mg (baby aspirin) twice a day. This is to prevent clotting. this was started by your surgeon after your procedure. You will need to follow with him to determine how long you will need to take this medication. 5. Continue to take your bowel regimen: senna, colace and miralax daily to help prevent constipatino. Care You will need to have your EKG monitored while you on are on levaquin to check your interval: Qtc. It is important to quit smoking. We will send you a prescription for nicotine patches to help you quit. This is better for your overall health and lung health. Follow up appointments 1. Please follow up with your primary care doctor/surgeon, Dr. Moya in 7-10 days after your discharge. at [facility] office; call for appointment; [phone]. 2. You may also follow up with Dr. Islas, a primary care doctor who works with Dr. Moya - 1 week after your discharge. Referrals: Logan Islas MD [Staff Physician] - 1 Week Albert Moya MD [Staff Physician] - 1 Week Disposition: HOME - Home Medications Comprehensive Discharge Medication List: Ambulatory Orders Omeprazole 40 mg PO DAILY 08/24/18 Oxybutynin Chloride 5 mg PO TID 08/24/18 Duloxetine HCl [Cymbalta] 30 mg PO BID 15 Days #30 capsule. 03/19/19 Pregabalin [Lyrica] 100 mg PO TID #30 capsule MDD 3 03/19/19 Oxycodone HCl [Oxycontin] 80 mg PO BID 08/06/19 Diazepam [Valium] 5 mg PO BID PRN 08/21/19 Aspirin [ASA -] 81 mg PO BID tab.chew 08/26/19 Docusate Sodium [Colace -] 100 mg PO DAILY #30 capsule 08/26/19 Nicotine Patch [Nicoderm Patch -] 7 mg TD DAILY PRN #30 patch 08/26/19 Polyethylene Glycol 3350 [Miralax 119 gm Btl -] 17 gm PO DAILY #1 bottle Sennosides [Senna -] 1 tab PO BID 30 Days tablet 08/26/19 levoFLOXacin [Levaquin] 750 mg PO DAILY #5 tab 08/26/19 This patient is new to me today: No Emergency Visit: No Critical Care patient: No - Discharge Referral Referred to [facility] Med P.C.: No
== END 2019-08-26 20:46 | disposition home or self-care (01) | DRG 941 ==
LOC: JASUSAT 19:41 → J2W 22:25 → J6S 08-20 19:22
PROVIDERS: ADMIT Orthopaedic Surgery Orthopaedic Surgery of the Spine; ATTEND Internal Medicine
PROC: 0J9M0ZZ Drainage of Left Upper Leg Subcutaneous Tissue and Fascia, Open Approach (ICD-10-PCS; 2019-08-19)
PROC: 2W1MX6Z Compression of Left Lower Extremity using Pressure Dressing (ICD-10-PCS; 2019-08-19)
PROC: 0JBM0ZZ Excision of Left Upper Leg Subcutaneous Tissue and Fascia, Open Approach (ICD-10-PCS; principal; 2019-08-19 15:00)
PROC: 0J9M0ZZ Drainage of Left Upper Leg Subcutaneous Tissue and Fascia, Open Approach (ICD-10-PCS; 2019-08-23)
PROC: 0JQM0ZZ Repair Left Upper Leg Subcutaneous Tissue and Fascia, Open Approach (ICD-10-PCS; 2019-08-23)
PROC: 2W5 Placement, Anatomical Regions, Removal (ICD-10-PCS; 2019-08-23)
DX: T81.42XD Infection following a procedure, deep incisional surgical site, subsequent encounter (principal); T81.32XD Disruption of internal operation (surgical) wound, not elsewhere classified, subsequent encounter; B95.2 Enterococcus as the cause of diseases classified elsewhere; Y83.8 Other surgical procedures as the cause of abnormal reaction of the patient, or of later complication, without mention of misadventure at the time of the procedure; M32.9 Systemic lupus erythematosus, unspecified; I10 Essential (primary) hypertension; F41.9 Anxiety disorder, unspecified; N32.81 Overactive bladder; F32.9 Major depressive disorder, single episode, unspecified; D64.9 Anemia, unspecified; G89.29 Other chronic pain; M15.9 Polyosteoarthritis, unspecified
CPT/HCPCS: 36415; 80048; 83735; 84100; 85025; 85027; 85610; 85730; 86850; 86900; 86901; 87070; 87077; 87186; 87205; 94010; 94760; 97116-GP; 97162-GP

== ENCOUNTER 2019-09-04 14:48 | Inpatient (IN) | payer OTHER ==
[2019-09-03 17:16] VITALS: BMI 30.7
[2019-09-04] MEDS ORDERED: PROPOFOL 20 ML ONE (16:07)
[2019-09-04] MEDS ORDERED: LIDOCAINE HCL/PF 2% SDV 5ML VIAL ONE (16:08)
[2019-09-04] MEDS ORDERED: DEXAMETHASONE SOD PHOSPHATE 4 MG/1 ML VIAL ONE (16:08)
[2019-09-04] MEDS ORDERED: KETOROLAC TROMETHAMINE 30 MG/1 ML VIAL ONE (16:08)
[2019-09-04] MEDS ORDERED: ONDANSETRON 4 MG/2 ML VIAL IVPUSH PRN ×2 (16:34→18:11)
[2019-09-04] MEDS ORDERED: ACETAMINOPHEN 325 MG TABLET (FP) PO PRN (16:34)
[2019-09-04] MEDS ORDERED: ceFAZolin SODIUM 1 GM VIAL IVPB ONE (17:15)
[2019-09-04] MEDS ORDERED: ceFAZolin SODIUM 1 GM VIAL ONE (17:20)
--- NOTE | 2019-09-04 18:07 | PN ---
Progress Note (short form) - Note Progress Note: 64F p/w left hip wound dehiscence now s/p I&D left hip wound with application woundvac POD #0. Deep cavity persists. No purulence seen. Wound Dimensions: Length: 9cm. Width: 2cm. Depth: 6cm. -Pain control. -DVT PPx: -Chemical: ASA 81mg PO qD. -Mechanical: SOUTH's, SCD's. -Incentive spirometry q15 min. -PT/OT/Rehab, OOB. -WBAT RLE; NWB LLE. -f/u post-op TOV: 8 hours max. -Diet as tolerated. -f/u intra-op wound culture swab. -Care per medical hospitalist & ID teams. -Plan to return to OR Monday09/09/2019 for repeat I&D left hip with possible VS delayed primary closure. -Discharge planning: home w/services; [facility]; call for appointment; . Albert Moya MD (Orthopaedic Surgery).
--- NOTE | 2019-09-04 18:08 | OP ---
Operative Note - Note: Operative Date: 09/04/19 Pre-Operative Diagnosis: Chronic left hip wound dehiscence Operation: 1. I&D left hip wound. 2. Application left hip wound vac Post-Operative Diagnosis: Same as Pre-op Surgeon: Albert Moya Brand Recorder: Gelacio Moya Anesthesiologist/FISH FLIPPER: Ivonne De Oliveira Anesthesia: General Specimens Removed: 1 x wound culture Estimated Blood Loss (mls): 0 Fluid Volume Replaced (mls): 300 (Crystalloid) Operative Report Dictated: Yes
[2019-09-04] MEDS ORDERED: MAG HYDROX/AL HYDROX/SIMETH 30 ML UNIT-DOSE CUP PO PRN (18:11)
[2019-09-04] MEDS ORDERED: MAGNESIUM HYDROX 2400MG/30ML ORAL SUSPENSION 30 ML CUP PO PRN (18:11)
[2019-09-04] MEDS ORDERED: LACTATED RINGERS SOLUTION 1,000 ML IV SCH (19:45)
--- NOTE | 2019-09-04 20:22 | OP ---
DATE OF OPERATION: 09/04/2019 SURGEON: Albert Moya M.D. CONTINUOUS TOWEL ROLLER: Gelacio Moya M.D. PREOPERATIVE DIAGNOSIS: Chronic infected left hip wound. POSTOPERATIVE DIAGNOSIS: Chronic infected left hip wound. OPERATION: 1. Incision and drainage, left complex, chronic left hip wound (72145). 2. Application of negative pressure therapy wound vac left hip wound ([id number] , [id number]) ANESTHESIA: General anesthesia. POSITION: Lateral decubitus position. OPERATION DETAILS: The patient was correctly identified, brought in operating room. Left lower extremity was prepped, free draped in the routine manner with Betadine scrub solution, wiped off with alcohol, DuraPrep and window drape applied. Patient was placed in lateral decubitus position, left side up. The sutures were removed. The wound had broken up in dehiscence, expectedly so, just because of the underlying deep seated cavity which itself is slowly closing. Difficult to measure, estimated size of the cavity is 7 cm long, 2 cm wide, and about 4 cm deep, and 5 cm deep in other parts. Pulse lavage used to wash out. Betadine scrub was then utilized to rid the tissue of biofilm. All the deep cavities and crevices were explored with finger , washed out carefully, and washed with the betadine sponge. The tissues were then again lavaged with 5 L saline. Culture stick was taken at that point. 2 g Ancef had been given by the anesthesia team. A wound VAC sponge was placed into multiple segments of the wound, and the wound packed with the wound VAC sponge. The VAC was sealed. The suction device applied, and the patient was extricated out of the operating room with no complications. MD OSVALDO Oconnor/[id number] MTDD
[2019-09-04] MEDS: OXYBUTYNIN CHLORIDE 5 MG TABLET PO SCH (21:38)
[2019-09-04] MEDS: PREGABALIN 100 MG CAPSULE PO SCH (21:38)
[2019-09-04] MEDS: SENNOSIDES 8.6MG TABLET (FP) PO SCH (21:38)
[2019-09-04] MEDS: DULoxetine HCL 30 MG CAPSULE.DR PO SCH (21:38)
[2019-09-04] MEDS: oxyCODONE HCL 80 MG SUSTAINED ACTING TABLET PO SCH (21:38)
[2019-09-04] MEDS: diazePAM 5 MG TABLET PO PRN (21:39)
[2019-09-04] MEDS: ASPIRIN 81 MG CHEWABLE TABLETS PO SCH (21:39)
[2019-09-05] MEDS: oxyCODONE HCL 5 MG TABLET PO PRN ×4 (02:03→22:23)
[2019-09-05] MEDS: PREGABALIN 100 MG CAPSULE PO SCH ×3 (06:14→22:22)
[2019-09-05] MEDS: OXYBUTYNIN CHLORIDE 5 MG TABLET PO SCH ×3 (06:14→22:23)
[2019-09-05] MEDS ORDERED: PT OWN MED DRAWER 7, Y5N ONE ×2 (10:30→21:18)
[2019-09-05] MEDS: oxyCODONE HCL 80 MG SUSTAINED ACTING TABLET PO SCH ×2 (10:32→23:29)
[2019-09-05] MEDS: POLYETHYLENE GLYCOL 3350 119 GM BTL PO SCH ×2 (10:34→10:44)
[2019-09-05] MEDS: PANTOPRAZOLE 40 MG TABLET (FP) PO SCH (10:34)
[2019-09-05] MEDS: SENNOSIDES 8.6MG TABLET (FP) PO SCH ×2 (10:34→22:22)
[2019-09-05] MEDS: DULoxetine HCL 30 MG CAPSULE.DR PO SCH ×2 (10:34→22:23)
[2019-09-05] MEDS: ASPIRIN 81 MG CHEWABLE TABLETS PO SCH ×2 (10:34→22:23)
[2019-09-05] MEDS: DOCUSATE SODIUM 100 MG CAPSULE (FP) PO SCH (10:34)
[2019-09-05] MEDS: NICOTINE 7 MG/24 HOURS TOPICAL PATCH TD SCH (10:35)
--- NOTE | 2019-09-05 11:20 | PN ---
Progress Note (short form) - Note Progress Note: Post op day#1.S/p Left hip wound debridment and wash out under Ga uneventful.Patient stable.No any anesthesia related problem.Patient DC from the anesthesia care.
--- NOTE | 2019-09-05 14:05 | HP ---
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 Pt seen this AM. Without complaint, is content with the wound vac, and is to return to the OR per sx on 09/09/19, for I&D L hip and delayed primary closure. Pain is currently controlled. Deep cavity persists. No purulence seen. Wound Dimensions: Length: 9cm. Width: 2cm. Depth: 6cm. Fluid Volume Replaced (mls): 300 (Crystalloid) PAST MEDICAL HISTORY: as above PAST SURGICAL HISTORY: shoulder surgery in addition to above. Social History: Smokin cigs a day, no thoughts of cutting back alcohol:denies Drugs: denies Allergies etomidate Allergy (Severe, Verified 09/04/19 16:46) Rash latex Allergy (Severe, Verified 09/04/19 16:46) Rash morphine Allergy (Severe, Verified 09/04/19 16:46) Rash tomato Allergy (Intermediate, Verified 09/04/19 16:46) Rash HOME MEDICATIONS: Home Medications Medication Instructions Recorded Omeprazole 40 mg PO DAILY 08/24/18 Oxybutynin Chloride 5 mg PO TID 08/24/18 Duloxetine HCl [Cymbalta] 30 mg PO BID 15 Days #30 capsule. 03/19/19 Pregabalin [Lyrica] 100 mg PO TID #30 capsule MDD 3 03/19/19 Oxycodone HCl [Oxycontin] 80 mg PO BID 08/06/19 Diazepam [Valium] 5 mg PO BID PRN 08/21/19 Aspirin [ASA -] 81 mg PO BID tab.chew 08/26/19 Docusate Sodium [Colace -] 100 mg PO DAILY #30 capsule 08/26/19 Nicotine Patch [Nicoderm Patch -] 7 mg TD DAILY PRN #30 patch 08/26/19 Polyethylene Glycol 3350 [Miralax 17 gm PO DAILY #1 bottle 08/26/19 119 gm Btl -] Sennosides [Senna -] 1 tab PO BID 30 Days tablet 08/26/19 levoFLOXacin [Levaquin] 750 mg PO DAILY #5 tab 08/26/19 PHYSICAL EXAMINATION Vital Signs - 24 hr 09/05/19 04:00 Temperature 98.4 F Pulse Rate 77 Respiratory 20 Rate Blood Pressure 121/66 O2 Sat by Pulse Oximetry (%) GENERAL: Sitting on edge of bed, eating breakfast. in NAD HEAD: Normal with no signs of trauma. LUNGS: CTA b/l HEART: Regular rate and rhythm, S1, S2 without murmur, rub or gallop. ABDOMEN: Soft, nontender, nondistended, normoactive bowel sounds. EXTREMITIES: 2+ pulses, warm, well-perfused, no edema. +L hip w/ dressing, wound vac. 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 Pt seen this AM. Pt is to return to the OR per sx on 09/09/19, for I&D L hip and delayed primary closure. #s/p I&D L hip wound vac, PO day 1 -Pain control: on valium PRN, cymbalta, roxicodone, oxycontin per sx -Pt also on lyrica -DVT PPx: -Chemical: ASA 81mg PO qD. -Mechanical: SOUTH's, SCD's. -Incentive spirometry q15 min. -PT/OT/Rehab, OOB. -WBAT RLE; NWB LLE. -f/u post-op TOV: 8 hours max. -Diet as tolerated. -f/u intra-op wound culture swab. -Plan to return to OR Monday09/09/2019 for repeat I&D left hip with possible VS delayed primary closure. -Discharge planning: home w/services; f/u 7-10 days after rehab discharge at [facility] office; call for appointment; . #Constipation -c/w senna, colace #Smoking cessation -on nicotine patch #F/E/N off IVF continue to follow lytes reg diet #PPX DVT: mechanical SCD's; on asa BID per sx GI: protonix #Dispo admitted to tele all recs per sx Visit type - Emergency Visit Emergency Visit: No - New Patient This patient is new to me today: No - Critical Care Critical Care patient: No <Andrew Dover - Last Filed: 09/07/19 05:01> Seen and examind; indepndently verified bolton historical and exam findings and dsicussed at length with resident team. Agree with A and P and outlined note as documented aside from as I hav supplemented below Seen and examined. She appears confortable but insists on continued 06/27 pain. Recently discharged. I am told she has a planned washout on 09/09. Stable postop. Denies any dysuria, CP, SOB. No s/s worsening myelopathy 10 sys ROS done and negative unlss indicated above or in res note. HOME MEDICATIONS: Home Medications Medication Instructions Recorded Omeprazole 40 mg PO DAILY 08/24/18 Oxybutynin Chloride 5 mg PO TID 08/24/18 Duloxetine HCl [Cymbalta] 30 mg PO BID 15 Days #30 capsule. 03/19/19 Pregabalin [Lyrica] 100 mg PO TID #30 capsule MDD 3 03/19/19 Oxycodone HCl [Oxycontin] 80 mg PO BID 08/06/19 Diazepam [Valium] 5 mg PO BID PRN 08/21/19 Aspirin [ASA -] 81 mg PO BID tab.chew 08/26/19 Docusate Sodium [Colace -] 100 mg PO DAILY #30 capsule 08/26/19 Nicotine Patch [Nicoderm Patch -] 7 mg TD DAILY PRN #30 patch 08/26/19 Polyethylene Glycol 3350 [Miralax 17 gm PO DAILY #1 bottle 08/26/19 119 gm Btl -] Sennosides [Senna -] 1 tab PO BID 30 Days tablet 08/26/19 levoFLOXacin [Levaquin] 750 mg PO DAILY #5 tab 08/26/19 PHYSICAL EXAMINATION Vital Signs - 24 hr 09/05/19 09/06/19 09/06/19 20:00 00:00 06:00 Temperature 98.3 F 99.1 F 98.3 F Pulse Rate 100 H 89 79 Respiratory 14 20 20 Rate Blood Pressure 140/66 121/66 133/78 GENERAL: Awake, alert, and fully oriented, in no acute distress. HEAD: Normal with no signs of trauma. EYES: Pupils equal, round and reactive to light, extraocular movements intact, sclera anicteric, conjunctiva clear. No lid lag. EARS, NOSE, THROAT: Ears normal, nares patent, oropharynx clear without exudates. Moist mucous membranes. NECK: Normal range of motion, supple without lymphadenopathy, JVD, or masses. LUNGS: Breath sounds equal, clear to auscultation bilaterally. No wheezes, and no crackles. No accessory muscle use. HEART: Regular rate and rhythm, normal S1 and S2 without murmur, rub or gallop. ABDOMEN: Soft, nontender, not distended, normoactive bowel sounds, no guarding, no rebound, no masses. No hepatomegaly or splenomegaly. MUSCULOSKELETAL: Normal range of motion at all joints. No bony deformities or tenderness. No CVA tenderness. Skin: noted postop deep defects with no bleeding, clear surrounding dressings. Laboratory Results - last 24 hr 09/06/19 09/06/19 07:20 07:20 WBC 8.7 RBC 4.54 Hgb 10.8 Hct 33.4 MCV 73.7 L MCH 23.8 L MCHC 32.3 RDW 19.7 H Plt Count 370 MPV 7.2 L Absolute Neuts (auto) 5.5 Neutrophils % 63.0 Lymphocytes % 24.3 D Monocytes % 4.5 Eosinophils % 7.5 H D Basophils % 0.7 Nucleated RBC % 0 Sodium 140 Potassium 5.2 H Chloride 108 H Carbon Dioxide 25 Anion Gap 7 L BUN 25.0 H Creatinine 1.4 H Est GFR (CKD-EPI)AfAm 45.90 Est GFR (CKD-EPI)NonAf 39.61 Random Glucose 86 Calcium 9.0 Phosphorus 3.8 Magnesium 2.3 ASSESSMENT/PLAN: Patient presents with postoperative wound infection with history of MDRO (ID following on abx) with planned return to OR for washout on 09/09. She is doing well but has continued issues with pain medication dependance and requests increased doses of roxicodone. Her last admission she was indicated as faslsely informing us she was out of her home pain medications wheen they had just samuel filled so we will proceed with caution with respect to ongoing analgesics but of course monitor closely given the ongoing physical etiology with the infected surgical wound. Agree with problem list as documented above. ATTENDING PHYSICIAN STATEMENT I saw and evaluated the patient. I reviewed the resident's note and discussed the case with the resident. I agree with the resident's findings and plan as documented. SUBJECTIVE: OBJECTIVE: ASSESSMENT AND PLAN:
[2019-09-06] MEDS: oxyCODONE HCL 5 MG TABLET PO PRN ×5 (05:56→22:34)
[2019-09-06] MEDS: PREGABALIN 100 MG CAPSULE PO SCH ×3 (05:57→21:06)
[2019-09-06] MEDS: OXYBUTYNIN CHLORIDE 5 MG TABLET PO SCH ×3 (05:57→21:06)
[2019-09-06 08:18] LABS: BASO % 0.7 % (0-2.0); EOS % 7.5 % (0-4.5); HEMATOCRIT 33.4 % (32.4-45.2); HEMOGLOBIN 10.8 GM/dL (10.7-15.3); LYMPH % 24.3 % (8-40); MCH 23.8 pg (25.7-33.7); MCHC 32.3 g/dl (32.0-36.0); MEAN CELL VOLUME 73.7 fl (80-96); MEAN PLT VOLUME 7.2 fl (7.5-11.1); MONO % 4.5 % (3.8-10.2); PLATELET COUNT 370 K/MM3 (134-434); RBC 4.54 M/mm3 (3.60-5.2); RDW 19.7 % (11.6-15.6); WHITE BLOOD COUNT 8.7 K/mm3 (4.0-10.0)
[2019-09-06 08:36] LABS: CREATININE 1.4 mg/dL (0.55-1.3); MAGNESIUM 2.3 mg/dL (1.8-2.4); PHOSPHOROUS 3.8 mg/dL (2.5-4.9); POTASSIUM 5.2 mmol/L (3.5-5.1)
[2019-09-06] MEDS: oxyCODONE HCL 80 MG SUSTAINED ACTING TABLET PO SCH ×2 (10:02→21:06)
[2019-09-06] MEDS: ASPIRIN 81 MG CHEWABLE TABLETS PO SCH ×2 (10:02→21:06)
[2019-09-06] MEDS: PANTOPRAZOLE 40 MG TABLET (FP) PO SCH (10:05)
[2019-09-06] MEDS: SENNOSIDES 8.6MG TABLET (FP) PO SCH ×2 (10:05→21:06)
[2019-09-06] MEDS: DULoxetine HCL 30 MG CAPSULE.DR PO SCH ×2 (10:05→21:06)
[2019-09-06] MEDS: DOCUSATE SODIUM 100 MG CAPSULE (FP) PO SCH (10:05)
[2019-09-06] MEDS: POLYETHYLENE GLYCOL 3350 119 GM BTL PO SCH (10:06)
[2019-09-06] MEDS: NICOTINE 7 MG/24 HOURS TOPICAL PATCH TD SCH (10:16)
--- NOTE | 2019-09-06 18:49 | PN ---
Progress Note (short form) - Note Progress Note: Hospitalist Medicine Upset concerning roxicodone dosing. Vitals 09/06/19 14:16 Temperature 98.2 F Pulse Rate 93 H Respiratory 18 Rate Blood Pressure 116/84 Physical Exam GENERAL: Sitting on edge of bed HEAD: Normal with no signs of trauma. LUNGS: CTA b/l HEART: Regular rate and rhythm, S1, S2 without murmur, rub or gallop. ABDOMEN: Soft, nontender, nondistended, normoactive bowel sounds. EXTREMITIES: 2+ pulses, warm, well-perfused, no edema. +L hip w/ dressing, wound vac. gauze c/d/i SKIN: Warm, dry, normal turgor, no rashes or lesions noted Laboratory Tests 09/06/19 09/06/19 07:20 07:20 WBC 8.7 Hgb 10.8 Hct 33.4 Plt Count 370 Sodium 140 Potassium 5.2 H Chloride 108 H Carbon Dioxide 25 BUN 25.0 H Creatinine 1.4 H Random Glucose 86 Microbiology 09/04/19 18:00 Hip - Left Gram Stain - Final 09/04/19 18:00 Hip - Left Wound Culture - Preliminary NO GROWTH OBTAINED AFTER 24 HOURS INCUBATION, REINCUBATED. 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 Pt seen this AM. Pt is to return to the OR per sx on 09/09/19, for I&D L hip and delayed primary closure. #s/p I&D L hip wound vac, PO day 2 -Pain control: on valium PRN, cymbalta, roxicodone q8h PRN per sx , oxycontin per sx -Pt also on lyrica -DVT PPx: -Chemical: ASA 81mg PO qD. -Mechanical: SOUTH's, SCD's. -Incentive spirometry q15 min. -PT/OT/Rehab, OOB. -WBAT RLE; NWB LLE. -f/u post-op TOV: 8 hours max. -Diet as tolerated. -f/u intra-op wound culture swab. -Plan to return to OR Monday09/09/2019 for repeat I&D left hip with possible VS delayed primary closure. -Discharge planning: home w/services; f/u 7-10 days after rehab discharge at [facility] office; call for appointment; . #Constipation -c/w senna, colace #Smoking cessation -on nicotine patch #F/E/N off IVF continue to follow lytes reg diet #PPX DVT: mechanical SCD's; on asa BID per sx GI: protonix #Dispo admitted to tele all recs per sx <Cynthia Farah - Last Filed: 09/06/19 18:45> - Note Progress Note: Seen and examined; please refer to resident note for further historical information. I agree with the aforementioned assessment and plan and historical information aside from as supplemented by myself. Independently verified all bolton exam findings and diagnostics. I discussed the case at length with the resident and agree with the plan as outlined. No further complaints; endorses ongoing severe pain. Seen preop. Pending wound wash out with ortho 10 sys ROS done and negative aside from HPI VS, labs, imaging reviewed NAD AAO resting in bed NC AT EOMI PERRLA HR wnl, s1/2+ NT ND +BS CN2-12 wnl, no fnd Normal mood, appropriate behavior. Pain to palpation over affected hip with limited ROM 2/2 pain; +pulses A/P: Presents for postoperative wound infection; pending washout and cultures. Problems include: -Postoperative wound infection -Chronic Pain -Tobacco Abuse -Chronic Opioid-induced Constipation -Obesity Dispo: We will elucidate the final orthopedic recommendations with the indicated specialties and start discharge planning when medically appropriate Full Code <Andrew Dover - Last Filed: 09/29/19 18:21>
[2019-09-06] MEDS: diazePAM 5 MG TABLET PO PRN (23:51)
[2019-09-07] MEDS ORDERED: PIPERACILLIN/TAZOBACTAM 3.375 GM VIAL IVPB ONE (05:35)
[2019-09-07] MEDS ORDERED: DEXTROSE 5%-WATER - 50 ML IVPB ONE (05:35)
[2019-09-07] MEDS: PIPERACILLIN/TAZOB 3.375 GM 3.375 GM in DEXTROSE 5%-WATER - 50 ML IVPB SCH ×3 (05:43→10:46)
[2019-09-07] MEDS: OXYBUTYNIN CHLORIDE 5 MG TABLET PO SCH ×3 (05:48→22:16)
[2019-09-07] MEDS: PREGABALIN 100 MG CAPSULE PO SCH ×3 (05:48→22:15)
[2019-09-07 09:10] LABS: BASO % 0.6 % (0-2.0); EOS % 12.1 % (0-4.5); HEMATOCRIT 35.2 % (32.4-45.2); HEMOGLOBIN 11.4 GM/dL (10.7-15.3); LYMPH % 20.8 % (8-40); MCH 23.8 pg (25.7-33.7); MCHC 32.3 g/dl (32.0-36.0); MEAN CELL VOLUME 73.8 fl (80-96); MEAN PLT VOLUME 7.2 fl (7.5-11.1); MONO % 6.3 % (3.8-10.2); NEUT % 60.2 % (42.8-82.8); PLATELET COUNT 372 K/MM3 (134-434); RBC 4.77 M/mm3 (3.60-5.2); RDW 19.8 % (11.6-15.6)
[2019-09-07 09:13] LABS: BLOOD UREA NITROGEN 24.1 mg/dL (7-18); CALCIUM 9.1 mg/dL (8.5-10.1); CREATININE 1.1 mg/dL (0.55-1.3); MAGNESIUM 2.4 mg/dL (1.8-2.4); PHOSPHOROUS 5.4 mg/dL (2.5-4.9)
--- NOTE | 2019-09-07 10:04 | CON.ID ---
Consult Consult Specialty:: infectious diseases Referred by:: hip infection Reason for Consultation:: wash out of the wound - History of Present Illness Chief Complaint: wound infection History of Present Illness: 64 y/o F with hx L total hip arthroplasty s/p washout and wound vac, multiple drug resistant bacteria , chronic left wound ulcers, osteoarthritis, SLE in remission, HTN, anxiety, overactive bladder, who is s/p I&D L hip with wound vac , PO Day 1. . Without complaint, is content with the wound vac, and is to return to the OR per sx on 09/09/19, for I&D L hip and delayed primary closure. Pain is currently controlled. patient has no complaints this patient known to me from previous admissions - History Source History Provided By: Patient Limitations to Obtaining History: No Limitations - Past Medical History Cardio/Vascular: Yes: HTN Psych: Yes: Depression - Past Surgical History Past Surgical History: Yes: Joint Replacement (THR, multiple wash outs, I&D) - Alcohol/Substance Use Hx Alcohol Use: No - Smoking History Smoking history: Current every day smoker Have you smoked in the past 12 months: Yes Aproximately how many cigarettes per day: 5 Home Medications - Allergies Allergies/Adverse Reactions: Allergies Allergy/AdvReac Type Severity Reaction Status Date / Time etomidate Allergy Severe Rash Verified 09/04/19 16:46 latex Allergy Severe Rash Verified 09/04/19 16:46 morphine Allergy Severe Rash Verified 09/04/19 16:46 tomato Allergy Intermediate Rash Verified 09/04/19 16:46 - Home Medications Home Medications: Ambulatory Orders Omeprazole 40 mg PO DAILY 08/24/18 Oxybutynin Chloride 5 mg PO TID 08/24/18 Duloxetine HCl [Cymbalta] 30 mg PO BID 15 Days #30 capsule. 03/19/19 Pregabalin [Lyrica] 100 mg PO TID #30 capsule MDD 3 03/19/19 Oxycodone HCl [Oxycontin] 80 mg PO BID 08/06/19 Diazepam [Valium] 5 mg PO BID PRN 08/21/19 Aspirin [ASA -] 81 mg PO BID tab.chew 08/26/19 Docusate Sodium [Colace -] 100 mg PO DAILY #30 capsule 08/26/19 Nicotine Patch [Nicoderm Patch -] 7 mg TD DAILY PRN #30 patch 08/26/19 Polyethylene Glycol 3350 [Miralax 119 gm Btl -] 17 gm PO DAILY #1 bottle Sennosides [Senna -] 1 tab PO BID 30 Days tablet 08/26/19 levoFLOXacin [Levaquin] 750 mg PO DAILY #5 tab 08/26/19 Review of Systems - Review of Systems Constitutional: reports: No Symptoms Eyes: reports: No Symptoms HENT: reports: No Symptoms Neck: reports: No Symptoms Cardiovascular: reports: No Symptoms Respiratory: reports: No Symptoms Gastrointestinal: reports: No Symptoms Genitourinary: reports: No Symptoms Musculoskeletal: reports: Other Integumentary: reports: No Symptoms Neurological: reports: No Symptoms Endocrine: reports: No Symptoms Hematology/Lymphatic: reports: No Symptoms Psychiatric: reports: No Symptoms Physical Exam Vital Signs: Vital Signs Temperature 98.1 F 09/07/19 00:27 Pulse Rate 90 09/07/19 00:27 Respiratory Rate 20 09/07/19 00:27 Blood Pressure 141/88 09/07/19 00:27 O2 Sat by Pulse Oximetry (%) 100 09/04/19 19:45 Constitutional: Yes: Well Nourished, Calm, Mild Distress Neck: Yes: Supple, Trachea Midline Cardiovascular: Yes: Regular Rate and Rhythm Respiratory: Yes: Regular, CTA Bilaterally Gastrointestinal: Yes: Normal Bowel Sounds, Soft Musculoskeletal: Yes: Other Extremities: Yes: Other Wound/Incision: Yes: Other (wound vac on the hip present) Neurological: Yes: Alert, Oriented Psychiatric: Yes: Alert, Oriented Labs: CBC, BMP 09/07/19 07:26 09/07/19 07:26 Assessment/Plan 64 y/o F with hx L total hip arthroplasty s/p washout and wound vac, multiple drug resistant bacteria (most recently, 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 Pt seen this AM. Pt is to return to the OR per sx on 09/09/19, for I&D L hip and delayed primary closure. #s/p I&D L hip wound vac, plan all cx reports noted will stop abx patient for washout rest as per the team
[2019-09-07] MEDS ORDERED: PT OWN MED DRAWER 7, Y5N ONE (10:50)
[2019-09-07] MEDS: oxyCODONE HCL 80 MG SUSTAINED ACTING TABLET PO SCH ×2 (10:53→23:22)
[2019-09-07] MEDS: DULoxetine HCL 30 MG CAPSULE.DR PO SCH ×2 (10:54→22:16)
[2019-09-07] MEDS: DOCUSATE SODIUM 100 MG CAPSULE (FP) PO SCH (10:54)
[2019-09-07] MEDS: PANTOPRAZOLE 40 MG TABLET (FP) PO SCH (10:54)
[2019-09-07] MEDS: NICOTINE 7 MG/24 HOURS TOPICAL PATCH TD SCH (10:54)
[2019-09-07] MEDS: POLYETHYLENE GLYCOL 3350 119 GM BTL PO SCH (10:54)
[2019-09-07] MEDS: SENNOSIDES 8.6MG TABLET (FP) PO SCH ×2 (10:54→22:19)
[2019-09-07] MEDS: ASPIRIN 81 MG CHEWABLE TABLETS PO SCH ×2 (10:54→22:18)
[2019-09-07] MEDS ORDERED: OXYBUTYNIN CHLORIDE 5 MG TABLET PO PRN (12:36)
--- NOTE | 2019-09-07 12:43 | PN ---
Progress Note, Physician Chief Complaint: pt c/o pain in the hip, received the oxydone and is doing ok now, - Current Medication List Current Medications: Active Medications Al Hydroxide/Mg Hydroxide (Mylanta Oral Suspension -) 30 ml PO Q4H PRN PRN Reason: DYSPEPSIA Aspirin (Asa -) 81 mg PO BID [facility] Last Admin: 09/07/19 10:54 Dose: 81 mg Diazepam (Valium -) 5 mg PO BID PRN PRN Reason: ANXIETY Last Admin: 09/06/19 23:51 Dose: 5 mg Docusate Sodium (Colace -) 100 mg PO DAILY [facility] Last Admin: 09/07/19 10:54 Dose: 100 mg Duloxetine HCl (Cymbalta -) 30 mg PO BID [facility] Last Admin: 09/07/19 10:54 Dose: 30 mg Magnesium Hydroxide (Milk Of Magnesia -) 30 ml PO PRN PRN PRN Reason: CONSTIPATION Nicotine (Nicoderm Patch -) 7 mg TD DAILY [facility] Last Admin: 09/07/19 10:54 Dose: Not Given Ondansetron HCl (Zofran Injection) 4 mg IVPUSH Q6H PRN PRN Reason: NAUSEA Oxybutynin Chloride (Ditropan -) 5 mg PO TID [facility] Last Admin: 09/07/19 05:48 Dose: 5 mg Oxycodone HCl (Oxycontin -) 80 mg PO BID [facility] Last Admin: 09/07/19 10:53 Dose: 80 mg Oxycodone HCl (Roxicodone -) 30 mg PO Q6H PRN PRN Reason: PAIN LEVEL 6-10 Pantoprazole Sodium (Protonix -) 40 mg PO DAILY [facility] Last Admin: 09/07/19 10:54 Dose: 40 mg Polyethylene Glycol (Miralax (For Daily Use) -) 17 gm PO DAILY [facility] Last Admin: 09/07/19 10:54 Dose: Not Given Pregabalin (Lyrica -) 100 mg PO TID [facility] Last Admin: 09/07/19 05:48 Dose: 100 mg Senna (Senna -) 1 tab PO BID [facility] Last Admin: 09/07/19 10:54 Dose: 1 tab - Objective Vital Signs: Vital Signs Temperature 97.8 F 09/07/19 10:00 Pulse Rate 102 H 09/07/19 10:00 Respiratory Rate 20 09/07/19 10:00 Blood Pressure 144/88 09/07/19 10:00 O2 Sat by Pulse Oximetry (%) 100 09/04/19 19:45 Constitutional: Yes: Well Nourished, No Distress Eyes: Yes: Conjunctiva Clear, EOM Intact HENT: Yes: Atraumatic, Normocephalic Neck: Yes: Supple, Trachea Midline Cardiovascular: Yes: Regular Rate and Rhythm Respiratory: Yes: Regular, CTA Bilaterally Gastrointestinal: Yes: Normal Bowel Sounds, Soft Extremities: Yes: Other (L hip wound vac,) Edema: No Neurological: Yes: WNL Labs: CBC, BMP 09/07/19 07:26 09/07/19 07:26 Impression/Plan Impression/Plan: ASSESSMENT/PLAN: #s/p I&D L hip wound vac, PO day 3 contimue pain management, continue with senna, and will fu, -DVT PPx: -Chemical: ASA 81mg PO qD. -Mechanical: SOUTH's, SCD's. -PT/OT/Rehab, OOB. -WBAT RLE; NWB LLE. wound c&s is negative, and seen by ID , and abx stopped, Plan to return to OR Monday09/09/2019 for repeat I&D left hip with possible VS delayed primary closure. #Smoking cessation -on nicotine patch #PPX DVT: mechanical SCD's; on asa BID per sx GI: protonix Visit type - Emergency Visit Emergency Visit: No - New Patient This patient is new to me today: Yes Date on this admission: 09/07/19 - Critical Care Critical Care patient: No - Discharge Referral Referred to [facility] Med P.C.: No
--- NOTE | 2019-09-07 15:31 | PN ---
Progress Note (short form) - Note Progress Note: 64F p/w left hip wound dehiscence now s/p I&D left hip wound with application woundvac POD #3. Pain well controlled. No acute events overnight. Pt. denies overnight history of headaches, chest pain, shortness of breath, nausea, vomiting, chills, & sweats. (+) Voiding; (+) Flatus; (-) BM. All labs and vitals reviewed. PE: AAO x 3, NAD. L-Hip: Wound vac dressing C/D/I, maintaining suction. NV at baseline B/L LE. 64F p/w left hip wound dehiscence now s/p I&D left hip wound with application woundvac POD #3. -NPO, IVF tomorrow (Monday night 09/08/2019 at midnight): Plan to return to OR Monday09/09/2019 for repeat I&D left hip with possible VS delayed primary closure. -Pain control. -DVT PPx: -Mechanical only: SOUTH's, SCD's. -Chemical: ASA 81mg PO qD. -Incentive spirometry q15 min. -f/u intra-op wound cultures. -PT/OT/Rehab, OOB. -WBAT RLE; NWB LLE. -Diet as tolerated. -Care per medical hospitalist & ID teams. -f/u pain management recommendations: Dr. Elliot Garcia. -Discharge planning: home w/VNS & wound care services; f/u 7-10 days after rehab discharge at [facility] office; call for appointment; . -Will follow. Albert Moya MD (Orthopaedic Surgery).
[2019-09-07] MEDS: oxyCODONE HCL 5 MG TABLET PO PRN ×2 (15:43→22:16)
[2019-09-08] MEDS: PREGABALIN 100 MG CAPSULE PO SCH ×3 (05:56→21:15)
[2019-09-08] MEDS: OXYBUTYNIN CHLORIDE 5 MG TABLET PO SCH ×3 (05:56→21:17)
[2019-09-08] MEDS: oxyCODONE HCL 5 MG TABLET PO PRN ×3 (06:01→18:32)
[2019-09-08 08:20] LABS: EOS % 10.8 % (0-4.5); HEMATOCRIT 37.1 % (32.4-45.2); HEMOGLOBIN 11.8 GM/dL (10.7-15.3); LYMPH % 17.4 % (8-40); MCH 23.7 pg (25.7-33.7); MCHC 31.8 g/dl (32.0-36.0); MEAN CELL VOLUME 74.5 fl (80-96); MEAN PLT VOLUME 6.9 fl (7.5-11.1); MONO % 6.4 % (3.8-10.2); NEUT % 64.4 % (42.8-82.8); PLATELET COUNT 387 K/MM3 (134-434); RBC 4.98 M/mm3 (3.60-5.2); RDW 19.8 % (11.6-15.6); WHITE BLOOD COUNT 10.1 K/mm3 (4.0-10.0)
[2019-09-08 09:00] LABS: ALBUMIN 3.4 g/dl (3.4-5.0); BILIRUBIN,TOTAL 0.2 mg/dL (0.2-1); CALCIUM 9.4 mg/dL (8.5-10.1); POTASSIUM 4.6 mmol/L (3.5-5.1)
[2019-09-08] MEDS: SENNOSIDES 8.6MG TABLET (FP) PO SCH ×2 (10:30→21:14)
[2019-09-08] MEDS: oxyCODONE HCL 80 MG SUSTAINED ACTING TABLET PO SCH ×2 (10:30→21:14)
[2019-09-08] MEDS: PANTOPRAZOLE 40 MG TABLET (FP) PO SCH (10:30)
[2019-09-08] MEDS: DULoxetine HCL 30 MG CAPSULE.DR PO SCH ×2 (10:30→21:14)
[2019-09-08] MEDS: DOCUSATE SODIUM 100 MG CAPSULE (FP) PO SCH (10:30)
[2019-09-08] MEDS: NICOTINE 7 MG/24 HOURS TOPICAL PATCH TD SCH (10:31)
[2019-09-08] MEDS: POLYETHYLENE GLYCOL 3350 119 GM BTL PO SCH (10:32)
--- NOTE | 2019-09-08 11:11 | PN ---
Progress Note (short form) - Note Progress Note: She was admitted to the hospital for wound dehiscence. On the left hip denies any fever chills nausea vomiting. She is up for going to the OR tomorrow morning for wound cleaning up. She is taking aspirin regularly will hold that for tonight. She is also complaining of multiple skin small masses all over the body which are same size for the last few months. She has lost weight over few months because of sickness and they are more apparent now. Vital Signs Period Temp Pulse Resp BP Sys/Vargas Pulse Ox Last 24 Hr 98.5 F-98.7 F 91-106 18-20 142-145/72-97 98 Physical examination She is comfortable HEENT no pallor Lungs are clear Abdomen soft nontender no organomegaly. Extremities left hip wound is clean and wound VAC is in place. Neurologically she is alert awake oriented Skin examination showed she has diffuse multiple neurofibromas and explained to her about the neurofibroma that she just have to watch them if any of them get bigger she need evaluation at that time. CBC, BMP 09/08/19 08:00 09/08/19 08:00 Assessment and plan #s/p I&D L hip wound vac, PO day 4 contimue pain management, continue with senna, and will fu, -DVT PPx: -Chemical: ASA 81mg PO qD.But will hold aspirin today due to OR tomorrow -Mechanical: SOUTH's, SCD's. -PT/OT/Rehab, OOB. -WBAT RLE; NWB LLE. wound c&s is negative, and seen by ID , and abx stopped, Plan to return to OR Monday09/09/2019 for repeat I&D left hip with possible VS delayed primary closure. #Smoking cessation -on nicotine patch #PPX DVT: mechanical SCD's; on asa BID per sx GI: protonix Neurofibromas diffuse multiple neurofibromas and explained to her about the neurofibroma that she just have to watch them if any of them get bigger she need evaluation at that time. Visit type - Emergency Visit Emergency Visit: Yes ED Registration Date: 09/04/19 Care time: The patient presented to the Emergency Department on the above date and was hospitalized for further evaluation of their emergent condition. - New Patient This patient is new to me today: Yes Date on this admission: 09/08/19 - Critical Care Critical Care patient: No - Discharge Referral Referred to [facility] Med P.C.: No
[2019-09-08] MEDS: ASPIRIN 81 MG CHEWABLE TABLETS PO SCH ×2 (11:22→21:17)
[2019-09-08] MEDS ORDERED: PT OWN MED DRAWER 7, Y5N ONE (14:42)
--- NOTE | 2019-09-08 21:03 | PN ---
Progress Note, Physician History of Present Illness: No new events. Pt remains afebrile. - Current Medication List Current Medications: Active Medications Al Hydroxide/Mg Hydroxide (Mylanta Oral Suspension -) 30 ml PO Q4H PRN PRN Reason: DYSPEPSIA Aspirin (Asa -) 81 mg PO BID [facility] Last Admin: 09/08/19 11:22 Dose: Not Given Docusate Sodium (Colace -) 100 mg PO DAILY [facility] Last Admin: 09/08/19 10:30 Dose: 100 mg Duloxetine HCl (Cymbalta -) 30 mg PO BID [facility] Last Admin: 09/08/19 10:30 Dose: 30 mg Magnesium Hydroxide (Milk Of Magnesia -) 30 ml PO PRN PRN PRN Reason: CONSTIPATION Nicotine (Nicoderm Patch -) 7 mg TD DAILY [facility] Last Admin: 09/08/19 10:31 Dose: Not Given Ondansetron HCl (Zofran Injection) 4 mg IVPUSH Q6H PRN PRN Reason: NAUSEA Oxybutynin Chloride (Ditropan -) 5 mg PO TID [facility] Last Admin: 09/08/19 14:11 Dose: 5 mg Oxycodone HCl (Oxycontin -) 80 mg PO BID [facility] Last Admin: 09/08/19 10:30 Dose: 80 mg Oxycodone HCl (Roxicodone -) 30 mg PO Q6H PRN PRN Reason: PAIN LEVEL 6-10 Last Admin: 09/08/19 18:32 Dose: 30 mg Pantoprazole Sodium (Protonix -) 40 mg PO DAILY [facility] Last Admin: 09/08/19 10:30 Dose: 40 mg Polyethylene Glycol (Miralax (For Daily Use) -) 17 gm PO DAILY [facility] Last Admin: 09/08/19 10:32 Dose: Not Given Pregabalin (Lyrica -) 100 mg PO TID [facility] Last Admin: 09/08/19 14:11 Dose: 100 mg Senna (Senna -) 1 tab PO BID [facility] Last Admin: 09/08/19 10:30 Dose: 1 tab - Objective Vital Signs: Vital Signs Temperature 98.4 F 09/08/19 17:44 Pulse Rate 102 H 09/08/19 20:47 Respiratory Rate 18 09/08/19 20:47 Blood Pressure 123/78 09/08/19 20:47 O2 Sat by Pulse Oximetry (%) 98 12/22/19 09:00 Constitutional: Yes: No Distress, Calm Cardiovascular: Yes: Regular Rate and Rhythm Respiratory: Yes: Regular Gastrointestinal: Yes: Normal Bowel Sounds, Soft Wound/Incision: Yes: Dressing Dry and Intact Labs: CBC, BMP 09/08/19 08:00 09/08/19 08:00 Microbiology 09/04/19 18:00 Hip - Left Gram Stain - Final 09/04/19 18:00 Hip - Left Wound Culture - Final NO GROWTH OF AEROBIC ORGANISMS AFTER 48 HOURS INCUBATION Problem List - Problems (1) Anemia Code(s): D64.9 - ANEMIA, UNSPECIFIED (2) Chronic pain Code(s): G89.29 - OTHER CHRONIC PAIN (3) Depression Code(s): F32.9 - MAJOR DEPRESSIVE DISORDER, SINGLE EPISODE, UNSPECIFIED (4) HTN (hypertension) Code(s): I10 - ESSENTIAL (PRIMARY) HYPERTENSION (5) Infection of lower extremity associated with hardware Code(s): T84.7XXA - INFECT/INFLM REACT DUE TO OTH INT ORTH PROSTH DEV/GRFT, INIT (6) Wound, open, hip or thigh Code(s): [id number] - Assessment/Plan 64 y/o F with hx L total hip arthroplasty s/p washout and wound vac, multiple drug resistant bacteria (most recently, 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 -- latest wound culture without growth -- now off antibiotics -- plan is for I&D L hip and delayed primary closure tomorrow
[2019-09-09] MEDS: oxyCODONE HCL 5 MG TABLET PO PRN ×3 (00:53→19:58)
[2019-09-09] MEDS: OXYBUTYNIN CHLORIDE 5 MG TABLET PO SCH ×3 (06:12→21:40)
[2019-09-09] MEDS: PREGABALIN 100 MG CAPSULE PO SCH ×3 (06:12→21:38)
[2019-09-09] MEDS ORDERED: fentaNYL CITRATE 250 MCG/5 ML VIAL ONE (08:19)
[2019-09-09] MEDS ORDERED: EPHEDRINE SULFATE/0.9% NACL/PF 50 MG/10 ML SYRINGE NR ONE (08:19)
[2019-09-09] MEDS ORDERED: SUCCINYLCHOLINE CHLORIDE 200 MG/10 ML SYRINGE ONE (08:20)
[2019-09-09] MEDS ORDERED: PROPOFOL 20 ML ONE ×2 (08:20)
[2019-09-09] MEDS ORDERED: MIDAZOLAM HCL 2 MG/2 ML SINGLE DOSE VIAL ONE ×2 (08:20)
[2019-09-09] MEDS ORDERED: GLYCOPYRROLATE 0.2 MG/1 ML VIAL ONE (08:24)
[2019-09-09] MEDS ORDERED: LIDOCAINE HCL/PF 2% SDV 5ML VIAL ONE ×2 (08:24→08:25)
[2019-09-09] MEDS ORDERED: SODIUM CHLORIDE 0.9% P/F 10 ML VIAL IJ ONE (08:26)
[2019-09-09] MEDS: POLYETHYLENE GLYCOL 3350 119 GM BTL PO SCH (08:30)
[2019-09-09] MEDS: PANTOPRAZOLE 40 MG TABLET (FP) PO SCH (08:30)
[2019-09-09] MEDS: NICOTINE 7 MG/24 HOURS TOPICAL PATCH TD SCH (08:30)
[2019-09-09] MEDS: DOCUSATE SODIUM 100 MG CAPSULE (FP) PO SCH (08:30)
[2019-09-09] MEDS: oxyCODONE HCL 80 MG SUSTAINED ACTING TABLET PO SCH ×2 (08:30→21:39)
[2019-09-09] MEDS: SENNOSIDES 8.6MG TABLET (FP) PO SCH ×2 (08:30→21:40)
[2019-09-09] MEDS: ASPIRIN 81 MG CHEWABLE TABLETS PO SCH ×2 (08:30→21:38)
[2019-09-09] MEDS: DULoxetine HCL 30 MG CAPSULE.DR PO SCH ×2 (08:30→21:38)
[2019-09-09] MEDS ORDERED: ONDANSETRON 4 MG/2 ML VIAL ONE (11:02)
[2019-09-09] MEDS ORDERED: ceFAZolin SODIUM 1 GM VIAL IVPB ONE ×2 (11:21→11:30)
[2019-09-09] MEDS ORDERED: ceFAZolin SODIUM 1 GM VIAL ONE ×2 (11:54)
--- NOTE | 2019-09-09 12:25 | PN ---
Progress Note (short form) - Note Progress Note: 64F p/w left hip wound dehiscence now s/p I&D left hip wound with delayed primary closure POD #0. Deep cavity persists. No wound purulence or signs of contamination. No malodor. No clinical concern for infection. Deep wound culture swab sticks x 3 sent to lab. Wound Dimensions: Length: 9cm. Width: 2cm. Depth: 6cm. -Pain control: Patient's baseline meds - Oxycontin 80mg PO BID; oxycodone 30mg PO q4h PRN for breakthrough pain. -DVT PPx: -Chemical: ASA 81mg PO qD. -Mechanical: SOUTH's, SCD's. -Incentive spirometry q15 min. -PT/OT/Rehab, OOB. -WBAT RLE; NWB LLE. -f/u post-op TOV: 8 hours max. -Diet as tolerated. -f/u intra-op wound culture swabs x 3. -Discharge planning: home today or tomorrow w/[facility] services; f/u 7-10 days after rehab discharge at [facility] [place] [facility]; call for appointment; . Gelacio Moya MD (Orthopaedic Surgery).
--- NOTE | 2019-09-09 12:26 | OP ---
Operative Note - Note: Operative Date: 09/09/19 Pre-Operative Diagnosis: Chronic left hip wound dehiscence Operation: 1. I&D left hip wound. 2. Delayed primary closure left hip Findings: No wound purulence or signs of contamination. No malodor. No clinical concern for infection. 3 x deep left hip wound swabs. 1.5L NS irrigation. Mechanical debridement with betadine scrub sponge. 1.5L NS irrigation. Wound filled with 50% NS & 50% betadine solution. 2 minute soak. Wound drained. Repeat: Wound filled with 50% NS & 50% betadine solution. 2 minute soak. Wound drained. 3L NS irrigation. Complex wound closure: #1 PDS - [place] multilayered suture technique with vertical mattresses. Post-Operative Diagnosis: Same as Pre-op Surgeon: Gelacio Moya Anesthesiologist/CLINICAL TRIAL ASSOCIATE: Blanca Humphrey Anesthesia: General Estimated Blood Loss (mls): 0 Fluid Volume Replaced (mls): 900 (Crystalloid) Operative Report Dictated: Yes
[2019-09-09] MEDS ORDERED: oxyCODONE HCL 5 MG TABLET PO PRN (12:31)
[2019-09-09] MEDS ORDERED: ONDANSETRON 4 MG/2 ML VIAL IVPUSH PRN (12:46)
[2019-09-09] MEDS ORDERED: MAG HYDROX/AL HYDROX/SIMETH 30 ML UNIT-DOSE CUP PO PRN (12:46)
[2019-09-09] MEDS ORDERED: MAGNESIUM HYDROX 2400MG/30ML ORAL SUSPENSION 30 ML CUP PO PRN (12:46)
[2019-09-09] MEDS: LACTATED RINGERS SOLUTION 1,000 ML IV SCH (13:00)
--- NOTE | 2019-09-09 13:42 | PN ---
Progress Note, Physician History of Present Illness: stable post wash out - Current Medication List Current Medications: Active Medications Al Hydroxide/Mg Hydroxide (Mylanta Oral Suspension -) 30 ml PO Q4H PRN PRN Reason: DYSPEPSIA Aspirin (Asa -) 81 mg PO BID [facility] Duloxetine HCl (Cymbalta -) 30 mg PO BID [facility] Magnesium Hydroxide (Milk Of Magnesia -) 30 ml PO PRN PRN PRN Reason: CONSTIPATION Nicotine (Nicoderm Patch -) 7 mg TD DAILY [facility] Ondansetron HCl (Zofran Injection) 4 mg IVPUSH Q6H PRN PRN Reason: NAUSEA Oxybutynin Chloride (Ditropan -) 5 mg PO TID [facility] Oxycodone HCl (Roxicodone -) 30 mg PO Q4H PRN PRN Reason: PAIN LEVEL 6-10 Oxycodone HCl (Oxycontin -) 80 mg PO BID [facility] Pantoprazole Sodium (Protonix -) 40 mg PO DAILY [facility] Polyethylene Glycol (Miralax (For Daily Use) -) 17 gm PO DAILY [facility] Pregabalin (Lyrica -) 100 mg PO TID [facility] Senna (Senna -) 1 tab PO BID [facility] - Objective Vital Signs: Vital Signs Temperature 97.8 F 09/09/19 12:11 Pulse Rate 100 H 09/09/19 13:30 Respiratory Rate 10 09/09/19 13:30 Blood Pressure 119/69 09/09/19 13:30 O2 Sat by Pulse Oximetry (%) 96 09/09/19 13:30 Constitutional: Yes: No Distress, Calm Cardiovascular: Yes: S1, S2 Respiratory: Yes: Regular, CTA Bilaterally Gastrointestinal: Yes: Normal Bowel Sounds, Soft Musculoskeletal: Yes: Other Extremities: Yes: Other Labs: CBC, BMP 09/08/19 08:00 09/08/19 08:00 Assessment/Plan Problem List - Problems (1) Anemia Code(s): D64.9 - ANEMIA, UNSPECIFIED (2) Chronic pain Code(s): G89.29 - OTHER CHRONIC PAIN (3) Depression Code(s): F32.9 - MAJOR DEPRESSIVE DISORDER, SINGLE EPISODE, UNSPECIFIED (4) HTN (hypertension) Code(s): I10 - ESSENTIAL (PRIMARY) HYPERTENSION (5) Infection of lower extremity associated with hardware Code(s): T84.7XXA - INFECT/INFLM REACT DUE TO OTH INT ORTH PROSTH DEV/GRFT, INIT (6) Wound, open, hip or thigh Code(s): [id number] - Assessment/Plan 64 y/o F with hx L total hip arthroplasty s/p washout and wound vac, multiple drug resistant bacteria (most recently, 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 -will see what the cx shows untill that time monitor
--- NOTE | 2019-09-09 16:04 | PN ---
Progress Note (short form) - Note Progress Note: Hospitalist Medicine s/p I&D L hip, delayed primary closure L hip. Vitals 09/09/19 13:45 Pulse Rate 92 H Respiratory 12 Rate Blood Pressure 130/70 O2 Sat by Pulse 96 Oximetry (%) Physical Exam refused Laboratory Tests 09/08/19 09/08/19 08:00 08:00 WBC 10.1 H Hgb 11.8 Hct 37.1 Plt Count 387 Sodium 138 Potassium 4.6 Chloride 106 Carbon Dioxide 25 BUN 23.0 H Creatinine 1.0 Total Bilirubin 0.2 AST 12 L ALT 15 Alkaline Phosphatase 120 H Total Protein 8.0 Albumin 3.4 Microbiology 09/09/19 11:20 Hip - Left Gram Stain - Final 09/09/19 11:20 Hip - Left Gram Stain - Final 09/09/19 11:20 Hip - Left Gram Stain - Final 09/04/19 18:00 Hip - Left Gram Stain - Final 09/04/19 18:00 Hip - Left Wound Culture - Final NO GROWTH OF AEROBIC ORGANISMS AFTER 48 HOURS INCUBATION ASSESSMENT/PLAN: 64 y/o F with hx L total hip arthroplasty s/p washout and wound vac, multiple drug resistant bacteria (most recently, 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 Pt seen this AM. Pt is to return to the OR per sx on 09/09/19, for I&D L hip and delayed primary closure. #s/p repeat I&D L hip wound vac PO day 0 -Pain control: on valium PRN, cymbalta, roxicodone q4h PRN per sx , oxycontin per sx -Pt also on lyrica -DVT PPx: -Chemical: ASA 81mg PO qD. -Mechanical: SOUTH's, SCD's. -f/u wound cx -Incentive spirometry q15 min. -PT/OT/Rehab, OOB. -WBAT RLE; NWB LLE. -f/u post-op TOV: 8 hours max. #Constipation -c/w senna, colace #Smoking cessation -on nicotine patch #F/E/N IV LR 75 cc/hr continue to follow lytes reg diet #PPX DVT: mechanical SCD's; on asa BID per sx GI: protonix #Dispo monitoring on med-surg all recs per sx <Cynthia Farah - Last Filed: 09/09/19 17:19> - Note Progress Note: Seen and examined; please refer to resident note for further historical information. I agree with the aforementioned assessment and plan and historical information aside from as supplemented by myself. Independently verified all bolton exam findings and diagnostics. I discussed the case at length with the resident and agree with the plan as outlined. No further complaints; endorses ongoing severe pain. Seen preop. Pending wound wash out with ortho 10 sys ROS done and negative aside from HPI VS, labs, imaging reviewed NAD AAO resting in bed NC AT EOMI PERRLA HR wnl, s1/2+ NT ND +BS CN2-12 wnl, no fnd Normal mood, appropriate behavior. Pain to palpation over affected hip with limited ROM 2/2 pain; +pulses A/P: Presents for postoperative wound infection; pending washout and cultures. Holding off further abx per ID until culture results made available when she is out of the OR. Postoperative pain control per ortho. Problems include: -Postoperative wound infection (Final management per ortho; abx per culture results as per team. ESR/CRP to be trended, monitor for clinical decompensation with respect to sepsis.) -Chronic Pain (Pain management per orthopedics; monitor for neuropathic symptoms and can titrate neuroleptics as needed) -Tobacco Abuse (Continue NRT; she has no complaints now regarding cravings. 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 DC planning is pending microbio, pain control, and determination of final abx course. Full Code <Andrew Dover - Last Filed: 09/10/19 14:43>
[2019-09-10] MEDS: oxyCODONE HCL 5 MG TABLET PO PRN ×5 (00:16→21:04)
[2019-09-10] MEDS: OXYBUTYNIN CHLORIDE 5 MG TABLET PO SCH ×3 (06:04→21:27)
[2019-09-10] MEDS: PREGABALIN 100 MG CAPSULE PO SCH ×3 (06:07→21:27)
[2019-09-10 07:40] LABS: BASO % 0.8 % (0-2.0); EOS % 7.5 % (0-4.5); HEMOGLOBIN 10.4 GM/dL (10.7-15.3); LYMPH % 14.3 % (8-40); MCHC 32.4 g/dl (32.0-36.0); MEAN PLT VOLUME 7.3 fl (7.5-11.1); MONO % 6.1 % (3.8-10.2); NEUT % 71.3 % (42.8-82.8); PLATELET COUNT 284 K/MM3 (134-434); RBC 4.32 M/mm3 (3.60-5.2); RDW 20.1 % (11.6-15.6); WHITE BLOOD COUNT 9.6 K/mm3 (4.0-10.0)
[2019-09-10 08:05] LABS: BLOOD UREA NITROGEN 17.9 mg/dL (7-18); CALCIUM 8.3 mg/dL (8.5-10.1); CREATININE 1.1 mg/dL (0.55-1.3); MAGNESIUM 2.1 mg/dL (1.8-2.4); PHOSPHOROUS 4.6 mg/dL (2.5-4.9); POTASSIUM 4.3 mmol/L (3.5-5.1)
[2019-09-10] MEDS: ASPIRIN 81 MG CHEWABLE TABLETS PO SCH ×2 (09:49→21:28)
[2019-09-10] MEDS: SENNOSIDES 8.6MG TABLET (FP) PO SCH ×2 (09:49→21:28)
[2019-09-10] MEDS: DULoxetine HCL 30 MG CAPSULE.DR PO SCH ×2 (09:49→21:27)
[2019-09-10] MEDS: PANTOPRAZOLE 40 MG TABLET (FP) PO SCH (09:50)
[2019-09-10] MEDS: oxyCODONE HCL 80 MG SUSTAINED ACTING TABLET PO SCH ×2 (09:51→21:28)
[2019-09-10] MEDS: POLYETHYLENE GLYCOL 3350 119 GM BTL PO SCH (09:52)
[2019-09-10] MEDS: NICOTINE 7 MG/24 HOURS TOPICAL PATCH TD SCH (09:54)
--- NOTE | 2019-09-10 14:06 | PN ---
Progress Note, Physician History of Present Illness: stable no new issues - Current Medication List Current Medications: Active Medications Al Hydroxide/Mg Hydroxide (Mylanta Oral Suspension -) 30 ml PO Q4H PRN PRN Reason: DYSPEPSIA Aspirin (Asa -) 81 mg PO BID [facility] Last Admin: 09/10/19 09:49 Dose: 81 mg Duloxetine HCl (Cymbalta -) 30 mg PO BID [facility] Last Admin: 09/10/19 09:49 Dose: 30 mg Fentanyl (Sublimaze Injection -) 50 mcg IVPUSH Q5M PRN PRN Reason: PAIN-PACU ORDER X 4 DOSES ONLY Lactated Ringer's (Lactated Ringers Solution) 1,000 mls @ 75 mls/hr IV ASDIR [facility] Last Admin: 09/09/19 13:00 Dose: 100 mls Magnesium Hydroxide (Milk Of Magnesia -) 30 ml PO PRN PRN PRN Reason: CONSTIPATION Nicotine (Nicoderm Patch -) 7 mg TD DAILY [facility] Last Admin: 09/10/19 09:54 Dose: Not Given Ondansetron HCl (Zofran Injection) 4 mg IVPUSH Q6H PRN PRN Reason: NAUSEA Oxybutynin Chloride (Ditropan -) 5 mg PO TID [facility] Last Admin: 09/10/19 06:04 Dose: 5 mg Oxycodone HCl (Roxicodone -) 30 mg PO Q4H PRN PRN Reason: PAIN LEVEL 6-10 Last Admin: 09/10/19 10:23 Dose: 30 mg Oxycodone HCl (Oxycontin -) 80 mg PO BID [facility] Last Admin: 09/10/19 09:51 Dose: 80 mg Pantoprazole Sodium (Protonix -) 40 mg PO DAILY [facility] Last Admin: 09/10/19 09:50 Dose: 40 mg Polyethylene Glycol (Miralax (For Daily Use) -) 17 gm PO DAILY [facility] Last Admin: 09/10/19 09:52 Dose: Not Given Pregabalin (Lyrica -) 100 mg PO TID [facility] Last Admin: 09/10/19 06:07 Dose: 100 mg Senna (Senna -) 1 tab PO BID [facility] Last Admin: 09/10/19 09:49 Dose: 1 tab - Objective Vital Signs: Vital Signs Temperature 98.7 F 09/10/19 07:22 Pulse Rate 72 09/10/19 07:22 Respiratory Rate 20 09/10/19 07:22 Blood Pressure 133/64 09/10/19 07:22 O2 Sat by Pulse Oximetry (%) 99 09/09/19 21:00 Constitutional: Yes: No Distress, Calm Cardiovascular: Yes: S1, S2 Respiratory: Yes: Regular, CTA Bilaterally Gastrointestinal: Yes: Normal Bowel Sounds, Soft Musculoskeletal: Yes: WNL Extremities: Yes: Other Wound/Incision: Yes: Dressing Dry and Intact Psychiatric: Yes: Alert, Oriented Labs: CBC, BMP 09/10/19 06:45 09/10/19 06:45 Assessment/Plan Problem List - Problems (1) Anemia Code(s): D64.9 - ANEMIA, UNSPECIFIED (2) Chronic pain Code(s): G89.29 - OTHER CHRONIC PAIN (3) Depression Code(s): F32.9 - MAJOR DEPRESSIVE DISORDER, SINGLE EPISODE, UNSPECIFIED (4) HTN (hypertension) Code(s): I10 - ESSENTIAL (PRIMARY) HYPERTENSION (5) Infection of lower extremity associated with hardware Code(s): T84.7XXA - INFECT/INFLM REACT DUE TO OTH INT ORTH PROSTH DEV/GRFT, INIT (6) Wound, open, hip or thigh Code(s): [id number] - Assessment/Plan 64 y/o F with hx L total hip arthroplasty s/p washout and wound vac, multiple drug resistant bacteria (most recently, 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 cx results noted will start patient on unasyn
--- NOTE | 2019-09-10 14:46 | PN ---
Progress Note (short form) - Note Progress Note: Seen and examined; please refer to resident note for further historical information. I agree with the aforementioned assessment and plan and historical information aside from as supplemented by myself. Independently verified all bolton exam findings and diagnostics. I discussed the case at length with the resident and agree with the plan as outlined. POD #1; neurovascularly intact without any new complaints. Hemodynamically stable and has no issues with worsening myelopathic symptoms, etc. Complains of postop pain at site of procedure with no new patterns of radicular symptoms, etc. Continually asking for more pain medications; deferring to orthopedics per protocol. Cultures growing out Group D Strep. Will reach out to ID and if no guidance can start Vancomycin. Please see resident note for further subjective information. 10 sys ROS done and negative aside from HPI VS, labs, imaging reviewed NAD AAO resting in bed NC AT EOMI PERRLA HR wnl, s1/2+ NT ND +BS CN2-12 wnl, no fnd Normal mood, appropriate behavior. Pain to palpation over affected hip with limited ROM 2/2 pain; +pulses Microbiology 09/09/19 11:20 Hip - Left Gram Stain - Final 09/09/19 11:20 Hip - Left Wound Culture - Preliminary Group D Strep Or Entero Coccus 09/09/19 11:20 Hip - Left Gram Stain - Final 09/09/19 11:20 Hip - Left Wound Culture - Preliminary Group D Strep Or Entero Coccus 09/09/19 11:20 Hip - Left Gram Stain - Final 09/09/19 11:20 Hip - Left Wound Culture - Preliminary Group D Strep Or Entero Coccus 09/04/19 18:00 Hip - Left Gram Stain - Final 09/04/19 18:00 Hip - Left Wound Culture - Final NO GROWTH OF AEROBIC ORGANISMS AFTER 48 HOURS INCUBATION A/P: Presents for postoperative wound infection; pending washout and cultures. Holding off further abx per ID until culture results made available when she is out of the OR. Postoperative pain control per ortho. Problems include: -Chronic L-hip postoperative wound with chronic dehissance; postoperative wound infection POD #1 (Final management per ortho; abx per culture results as per team. ESR/CRP to be trended, monitor for clinical decompensation with respect to sepsis.) -Chronic Pain (Pain management per orthopedics; monitor for neuropathic symptoms and can titrate neuroleptics as needed) -Tobacco Abuse (Continue NRT; she has no complaints now regarding cravings. 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 DC planning is pending microbio, pain control, and determination of final abx course. Full Code Visit type - Emergency Visit Emergency Visit: Yes ED Registration Date: 09/04/19 Care time: The patient presented to the Emergency Department on the above date and was hospitalized for further evaluation of their emergent condition. - New Patient This patient is new to me today: No - Critical Care Critical Care patient: No
[2019-09-10] MEDS: AMPICILLIN NA/SULBACTAM NA 3 GM in SODIUM CHLORIDE 100 ML IVPB SCH ×2 (15:56→19:09)
[2019-09-10] MEDS: LACTATED RINGERS SOLUTION 1,000 ML IV SCH (16:19)
[2019-09-10] MEDS ORDERED: diazePAM 2 MG TABLET PO ONE (21:46)
[2019-09-11] MEDS ORDERED: PT OWN MED DRAWER 7, Y5N ONE (01:39)
[2019-09-11] MEDS: AMPICILLIN NA/SULBACTAM NA 3 GM in SODIUM CHLORIDE 100 ML IVPB SCH ×3 (02:10→18:12)
[2019-09-11] MEDS: oxyCODONE HCL 5 MG TABLET PO PRN ×5 (02:20→23:13)
[2019-09-11] MEDS: OXYBUTYNIN CHLORIDE 5 MG TABLET PO SCH ×3 (06:22→21:34)
[2019-09-11] MEDS: PREGABALIN 100 MG CAPSULE PO SCH ×3 (06:22→21:34)
[2019-09-11] MEDS: SENNOSIDES 8.6MG TABLET (FP) PO SCH ×2 (12:32→22:26)
[2019-09-11] MEDS: ASPIRIN 81 MG CHEWABLE TABLETS PO SCH ×2 (12:32→21:34)
[2019-09-11] MEDS: PANTOPRAZOLE 40 MG TABLET (FP) PO SCH (12:32)
[2019-09-11] MEDS: DULoxetine HCL 30 MG CAPSULE.DR PO SCH ×2 (12:32→21:34)
[2019-09-11] MEDS: NICOTINE 7 MG/24 HOURS TOPICAL PATCH TD SCH (12:33)
[2019-09-11] MEDS: oxyCODONE HCL 80 MG SUSTAINED ACTING TABLET PO SCH ×2 (12:33→21:34)
[2019-09-11] MEDS: POLYETHYLENE GLYCOL 3350 119 GM BTL PO SCH (12:33)
--- NOTE | 2019-09-11 14:43 | PN ---
Progress Note (short form) - Note Progress Note: Hospitalist Medicine s/p I&D L hip, delayed primary closure L hip. Sitting in bed . Overnight, dressing w/ drainage. Changed by overnight team. Vitals 09/11/19 06:59 Temperature 97.7 F Pulse Rate 83 Respiratory 20 Rate Blood Pressure 152/78 Physical Exam refused Laboratory Tests 09/10/19 09/10/19 06:45 06:45 WBC 9.6 Hgb 10.4 L Hct 32.0 L Plt Count 284 D Sodium 139 Potassium 4.3 Chloride 107 Carbon Dioxide 27 BUN 17.9 Creatinine 1.1 Random Glucose 115 H Microbiology 09/09/19 11:20 Hip - Left Gram Stain - Final 09/09/19 11:20 Hip - Left Wound Culture - Final Enterococcus Faecalis 09/09/19 11:20 Hip - Left Gram Stain - Final 09/09/19 11:20 Hip - Left Wound Culture - Final Enterococcus Faecalis 09/09/19 11:20 Hip - Left Gram Stain - Final 09/09/19 11:20 Hip - Left Wound Culture - Final Enterococcus Faecalis 09/04/19 18:00 Hip - Left Gram Stain - Final 09/04/19 18:00 Hip - Left Wound Culture - Final NO GROWTH OF AEROBIC ORGANISMS AFTER 48 HOURS INCUBATION ASSESSMENT/PLAN: 64 y/o F with hx L total hip arthroplasty s/p washout and wound vac, multiple drug resistant bacteria (most recently, 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 Pt seen this AM. Pt is to return to the OR per sx on 09/09/19, for I&D L hip and delayed primary closure. #s/p repeat I&D L hip wound vac PO day 0 -Pain control: on cymbalta, roxicodone q4h PRN per sx , oxycontin per sx -Pt also on lyrica -DVT PPx: -Chemical: ASA 81mg PO BID -Mechanical: SOUTH's, SCD's. -wound cx (+) e. faecalis, sens to amp ; on unasyn (09/10) -Incentive spirometry q15 min. -PT/OT/Rehab, OOB. -WBAT RLE; NWB LLE. #Constipation -c/w senna, colace #Smoking cessation -on nicotine patch #F/E/N off IVF continue to follow lytes reg diet #PPX DVT: mechanical SCD's; on asa BID per sx GI: protonix #Dispo monitoring on med-surg all recs per sx <Cynthia Farah - Last Filed: 09/11/19 14:39> - Note Progress Note: Seen and examined; please refer to resident note for further historical information. I agree with the aforementioned assessment and plan and historical information aside from as supplemented by myself. Independently verified all bolton exam findings and diagnostics. I discussed the case at length with the resident and agree with the plan as outlined. Doing well postoepratively. Resident spoke with ortho and ID; ortho to discuss further care with ID. No further complaints or points of action She is subjectively complaining of pain; she is concerned that the wound site has becomed dehissed again. Discussed w/ resident who informs me that they spoke with Dr. Moya yesterday as well who told them that the patient was stable from their perpective and that the discharge could go as planned. 10 sys ROS done and negative aside from HPI 10 sys ROS done and negative aside from HPI VS, labs, imaging reviewed NAD AAO resting in bed NC AT EOMI PERRLA HR wnl, s1/2+ NT ND +BS CN2-12 wnl, no fnd Normal mood, appropriate behavior. Pain to palpation over affected hip with limited ROM 2/2 pain; +pulses. Dressing has been changed. Per patient this is due to "someone touching it and it bursting out and leaking puss all over". That was not necessarily observed and dressing not changed as recently done; palpable edges with no gabi cellulitic boarders Microbiology 09/09/19 11:20 Hip - Left Gram Stain - Final 09/09/19 11:20 Hip - Left Wound Culture - Final A/P: Presents for postoperative wound infection; pending washout and cultures. Holding off further abx per ID until culture results made available when she is out of the OR. Postoperative pain control per ortho. Problems include: -Postoperative wound infection (+ EF cultures; abx exterminator helper IV vs. PO will d/w ID regarding coursee and of course final management per ortho; abx per culture results as per team. ESR/CRP to be trended, monitor for clinical decompensation with respect to sepsis.) -Chronic Pain (Pain management per orthopedics; monitor for neuropathic symptoms and can titrate neuroleptics as needed) -Tobacco Abuse (Continue NRT; she has no complaints now regarding cravings. 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 DC planning is pending microbio, pain control, and determination of final abx course. Full Code <Andrew Dover - Last Filed: 09/13/19 05:24>
[2019-09-12] MEDS: AMPICILLIN NA/SULBACTAM NA 3 GM in SODIUM CHLORIDE 100 ML IVPB SCH ×3 (03:26→17:43)
[2019-09-12] MEDS: oxyCODONE HCL 5 MG TABLET PO PRN ×5 (05:35→22:27)
[2019-09-12] MEDS: PREGABALIN 100 MG CAPSULE PO SCH ×3 (05:39→21:25)
[2019-09-12] MEDS: OXYBUTYNIN CHLORIDE 5 MG TABLET PO SCH ×3 (05:39→21:25)
--- NOTE | 2019-09-12 09:49 | PN ---
Progress Note, Physician History of Present Illness: stable no new issues - Current Medication List Current Medications: Active Medications Al Hydroxide/Mg Hydroxide (Mylanta Oral Suspension -) 30 ml PO Q4H PRN PRN Reason: DYSPEPSIA Last Admin: 09/11/19 16:51 Dose: 30 ml Aspirin (Asa -) 81 mg PO BID [facility] Last Admin: 09/11/19 21:34 Dose: 81 mg Duloxetine HCl (Cymbalta -) 30 mg PO BID [facility] Last Admin: 09/11/19 21:34 Dose: 30 mg Fentanyl (Sublimaze Injection -) 50 mcg IVPUSH Q5M PRN PRN Reason: PAIN-PACU ORDER X 4 DOSES ONLY Ampicillin Sodium/Sulbactam (Sodium 3 gm/ Sodium Chloride) 100 mls @ 200 mls/ hr IVPB Q8H-IV [facility] Last Admin: 09/12/19 03:26 Dose: Not Given Magnesium Hydroxide (Milk Of Magnesia -) 30 ml PO PRN PRN PRN Reason: CONSTIPATION Nicotine (Nicoderm Patch -) 7 mg TD DAILY [facility] Last Admin: 09/11/19 12:33 Dose: Not Given Ondansetron HCl (Zofran Injection) 4 mg IVPUSH Q6H PRN PRN Reason: NAUSEA Oxybutynin Chloride (Ditropan -) 5 mg PO TID [facility] Last Admin: 09/12/19 05:39 Dose: 5 mg Oxycodone HCl (Roxicodone -) 30 mg PO Q4H PRN PRN Reason: PAIN LEVEL 6-10 Last Admin: 09/12/19 05:35 Dose: 30 mg Oxycodone HCl (Oxycontin -) 80 mg PO BID [facility] Last Admin: 09/11/19 21:34 Dose: 80 mg Pantoprazole Sodium (Protonix -) 40 mg PO DAILY [facility] Last Admin: 09/11/19 12:32 Dose: 40 mg Polyethylene Glycol (Miralax (For Daily Use) -) 17 gm PO DAILY [facility] Last Admin: 09/11/19 12:33 Dose: Not Given Pregabalin (Lyrica -) 100 mg PO TID [facility] Last Admin: 09/12/19 05:39 Dose: 100 mg Senna (Senna -) 1 tab PO BID [facility] Last Admin: 09/11/19 22:26 Dose: 1 tab - Objective Vital Signs: Vital Signs Temperature 98.8 F 09/12/19 06:00 Pulse Rate 91 H 09/12/19 06:00 Respiratory Rate 20 09/12/19 06:00 Blood Pressure 146/86 09/12/19 06:00 O2 Sat by Pulse Oximetry (%) 99 09/11/19 09:00 Constitutional: Yes: No Distress, Calm Cardiovascular: Yes: S1, S2 Respiratory: Yes: Regular, CTA Bilaterally Gastrointestinal: Yes: Normal Bowel Sounds, Soft Musculoskeletal: Yes: WNL Extremities: Yes: WNL Neurological: Yes: Alert, Oriented Psychiatric: Yes: Alert, Oriented Labs: CBC, BMP 09/10/19 06:45 09/10/19 06:45 Assessment/Plan Problem List - Problems (1) Anemia Code(s): D64.9 - ANEMIA, UNSPECIFIED (2) Chronic pain Code(s): G89.29 - OTHER CHRONIC PAIN (3) Depression Code(s): F32.9 - MAJOR DEPRESSIVE DISORDER, SINGLE EPISODE, UNSPECIFIED (4) HTN (hypertension) Code(s): I10 - ESSENTIAL (PRIMARY) HYPERTENSION (5) Infection of lower extremity associated with hardware Code(s): T84.7XXA - INFECT/INFLM REACT DUE TO OTH INT ORTH PROSTH DEV/GRFT, INIT (6) Wound, open, hip or thigh Code(s): HTI1278 - Assessment/Plan 64 y/o F with hx L total hip arthroplasty s/p washout and wound vac, multiple drug resistant bacteria (most recently, 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 cx results noted continue abx wound care rest as per the team
[2019-09-12] MEDS: SENNOSIDES 8.6MG TABLET (FP) PO SCH ×2 (10:11→21:25)
[2019-09-12] MEDS: ASPIRIN 81 MG CHEWABLE TABLETS PO SCH ×2 (10:11→21:26)
[2019-09-12] MEDS: PANTOPRAZOLE 40 MG TABLET (FP) PO SCH (10:11)
[2019-09-12] MEDS: DULoxetine HCL 30 MG CAPSULE.DR PO SCH ×2 (10:11→21:25)
[2019-09-12] MEDS: NICOTINE 7 MG/24 HOURS TOPICAL PATCH TD SCH (10:15)
[2019-09-12] MEDS: POLYETHYLENE GLYCOL 3350 119 GM BTL PO SCH (10:17)
[2019-09-12] MEDS ORDERED: PT OWN MED DRAWER 7, Y5N ONE ×2 (11:14→17:38)
[2019-09-12] MEDS: oxyCODONE HCL 80 MG SUSTAINED ACTING TABLET PO SCH ×2 (11:17→21:24)
--- NOTE | 2019-09-12 14:26 | PN ---
Progress Note (short form) - Note Progress Note: Hospitalist Medicine s/p I&D L hip, delayed primary closure L hip. Sitting in bed, discussing increased drainage from site. Case d/w Dr. Moya to determine abx course Vitals 09/12/19 10:00 Temperature 98 F Pulse Rate 91 H Respiratory 20 Rate Blood Pressure 168/91 Physical Exam GENERAL: Sitting on edge of bed, in NAD HEAD: Normal with no signs of trauma. LUNGS: +few wheezes. otherwise clear, no accessory m usage HEART: Regular rate and rhythm, S1, S2 without murmur, rub or gallop. ABDOMEN: Soft, nontender, nondistended, normoactive bowel sounds. EXTREMITIES: 2+ pulses, warm, well-perfused, no edema. +L hip w/ dressing, serous drainage on gauze. SKIN: Warm, dry, normal turgor, no rashes or lesions noted Last Laboratory Tests (pt has been refusing) 09/10/19 09/10/19 06:45 06:45 WBC 9.6 Hgb 10.4 L Hct 32.0 L Plt Count 284 D Sodium 139 Potassium 4.3 Chloride 107 Carbon Dioxide 27 BUN 17.9 Creatinine 1.1 Random Glucose 115 H Microbiology 09/09/19 11:20 Hip - Left Gram Stain - Final 09/09/19 11:20 Hip - Left Wound Culture - Final Enterococcus Faecalis 09/09/19 11:20 Hip - Left Gram Stain - Final 09/09/19 11:20 Hip - Left Wound Culture - Final Enterococcus Faecalis 09/09/19 11:20 Hip - Left Gram Stain - Final 09/09/19 11:20 Hip - Left Wound Culture - Final Enterococcus Faecalis 09/04/19 18:00 Hip - Left Gram Stain - Final 09/04/19 18:00 Hip - Left Wound Culture - Final NO GROWTH OF AEROBIC ORGANISMS AFTER 48 HOURS INCUBATION ASSESSMENT/PLAN: 64 y/o F with hx L total hip arthroplasty s/p washout and wound vac, multiple drug resistant bacteria (most recently, 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 Pt seen this AM. Pt is to return to the OR per sx on 09/09/19, for I&D L hip and delayed primary closure. #s/p repeat I&D L hip wound (09/04, 09/09) -Pain control: on cymbalta, roxicodone q4h PRN per sx , oxycontin per sx -Pt also on lyrica -DVT PPx: -Chemical: ASA 81mg PO BID -Mechanical: SOUTH's, SCD's. -wound cx (+) e. faecalis, sens to amp ; on unasyn (09/10) d/w sx; will decide abx with ID -Incentive spirometry q15 min. -PT/OT/Rehab, OOB. -WBAT RLE; NWB LLE. #Constipation -c/w senna, colace #Smoking cessation -on nicotine patch #F/E/N off IVF continue to follow lytes reg diet #PPX DVT: mechanical SCD's; on asa BID per sx GI: protonix #Dispo monitoring on med-surg all recs per sx <Cynthia Farah - Last Filed: 09/12/19 14:21> - Note Progress Note: Seen and examined; please refer to resident note for further historical information. I agree with the aforementioned assessment and plan and historical information aside from as supplemented by myself. Independently verified all bolton exam findings and diagnostics. I discussed the case at length with the resident and agree with the plan as outlined. Doing well postoepratively. Resident spoke with ortho and ID; ortho to discuss further care with ID. No further complaints or points of action She is subjectively complaining of pain; she is concerned that the wound site has becomed dehissed again. Discussed w/ resident who informs me that they spoke with Dr. Moya yesterday as well who told them that the patient was stable from their perpective and that the discharge could go as planned. 10 sys ROS done and negative aside from HPI 10 sys ROS done and negative aside from HPI VS, labs, imaging reviewed NAD AAO resting in bed NC AT EOMI PERRLA HR wnl, s1/2+ NT ND +BS CN2-12 wnl, no fnd Normal mood, appropriate behavior. Pain to palpation over affected hip with limited ROM 2/2 pain; +pulses. Dressing has been changed. Per patient this is due to "someone touching it and it bursting out and leaking puss all over". That was not necessarily observed and dressing not changed as recently done; palpable edges with no gabi cellulitic boarders Microbiology 09/09/19 11:20 Hip - Left Gram Stain - Final 09/09/19 11:20 Hip - Left Wound Culture - Final Enterococcus Faecalis 09/09/19 11:20 Hip - Left Gram Stain - Final 09/09/19 11:20 Hip - Left Wound Culture - Final Enterococcus Faecalis 09/09/19 11:20 Hip - Left Gram Stain - Final 09/09/19 11:20 Hip - Left Wound Culture - Final Enterococcus Faecalis 09/04/19 18:00 Hip - Left Gram Stain - Final 09/04/19 18:00 Hip - Left Wound Culture - Final NO GROWTH OF AEROBIC ORGANISMS AFTER 48 HOURS INCUBATION A/P: Presents for postoperative wound infection; pending washout and cultures. Holding off further abx per ID until culture results made available when she is out of the OR. Postoperative pain control per ortho. Problems include: -Postoperative wound infection (+ EF cultures; abx long-term IV vs. PO will d/w ID regarding coursee and of course final management per ortho; abx per culture results as per team. ESR/CRP to be trended, monitor for clinical decompensation with respect to sepsis.) -Chronic Pain (Pain management per orthopedics; monitor for neuropathic symptoms and can titrate neuroleptics as needed) -Tobacco Abuse (Continue NRT; she has no complaints now regarding cravings. 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 DC planning is pending microbio, pain control, and determination of final abx course. Full Code <Andrew Dover - Last Filed: 09/13/19 05:22>
[2019-09-13] MEDS: AMPICILLIN NA/SULBACTAM NA 3 GM in SODIUM CHLORIDE 100 ML IVPB SCH ×6 (02:03→17:26)
[2019-09-13] MEDS: oxyCODONE HCL 5 MG TABLET PO PRN ×5 (02:56→22:06)
[2019-09-13] MEDS ORDERED: oxyCODONE HCL 5 MG TABLET ONE (03:02)
[2019-09-13] MEDS: PREGABALIN 100 MG CAPSULE PO SCH ×3 (05:52→22:09)
[2019-09-13] MEDS: OXYBUTYNIN CHLORIDE 5 MG TABLET PO SCH ×3 (05:52→22:07)
[2019-09-13 08:33] LABS: BASO % 0.9 % (0-2.0); EOS % 9.5 % (0-4.5); HEMATOCRIT 31.8 % (32.4-45.2); HEMOGLOBIN 10.2 GM/dL (10.7-15.3); LYMPH % 20.7 % (8-40); MCH 23.6 pg (25.7-33.7); MCHC 32.1 g/dl (32.0-36.0); MEAN CELL VOLUME 73.8 fl (80-96); MEAN PLT VOLUME 7.2 fl (7.5-11.1); MONO % 7.2 % (3.8-10.2); NEUT % 61.7 % (42.8-82.8); PLATELET COUNT 270 K/MM3 (134-434); RBC 4.31 M/mm3 (3.60-5.2); RDW 20.2 % (11.6-15.6); WHITE BLOOD COUNT 6.9 K/mm3 (4.0-10.0)
[2019-09-13 08:46] LABS: BLOOD UREA NITROGEN 15.8 mg/dL (7-18); CALCIUM 8.9 mg/dL (8.5-10.1); CREATININE 0.9 mg/dL (0.55-1.3); MAGNESIUM 2.3 mg/dL (1.8-2.4); PHOSPHOROUS 4.4 mg/dL (2.5-4.9); POTASSIUM 3.9 mmol/L (3.5-5.1)
[2019-09-13] MEDS ORDERED: PT OWN MED DRAWER 7, Y5N ONE ×3 (10:11→17:19)
[2019-09-13] MEDS: DULoxetine HCL 30 MG CAPSULE.DR PO SCH ×2 (10:15→22:09)
[2019-09-13] MEDS: ASPIRIN 81 MG CHEWABLE TABLETS PO SCH ×2 (10:15→22:08)
[2019-09-13] MEDS: POLYETHYLENE GLYCOL 3350 119 GM BTL PO SCH (10:15)
[2019-09-13] MEDS: oxyCODONE HCL 80 MG SUSTAINED ACTING TABLET PO SCH ×2 (10:16→22:08)
[2019-09-13] MEDS: SENNOSIDES 8.6MG TABLET (FP) PO SCH ×2 (10:18→22:09)
[2019-09-13] MEDS: PANTOPRAZOLE 40 MG TABLET (FP) PO SCH (10:18)
[2019-09-13] MEDS: NICOTINE 7 MG/24 HOURS TOPICAL PATCH TD SCH ×2 (10:19→10:25)
--- NOTE | 2019-09-13 11:54 | PN ---
Progress Note, Physician History of Present Illness: patient stable no new issues patient going for probably surgery for washout - Current Medication List Current Medications: Active Medications Al Hydroxide/Mg Hydroxide (Mylanta Oral Suspension -) 30 ml PO Q4H PRN PRN Reason: DYSPEPSIA Last Admin: 09/11/19 16:51 Dose: 30 ml Aspirin (Asa -) 81 mg PO BID [facility] Last Admin: 09/13/19 10:15 Dose: 81 mg Duloxetine HCl (Cymbalta -) 30 mg PO BID [facility] Last Admin: 09/13/19 10:15 Dose: 30 mg Fentanyl (Sublimaze Injection -) 50 mcg IVPUSH Q5M PRN PRN Reason: PAIN-PACU ORDER X 4 DOSES ONLY Ampicillin Sodium/Sulbactam (Sodium 3 gm/ Sodium Chloride) 100 mls @ 200 mls/ hr IVPB Q8H-IV [facility] Last Admin: 09/13/19 03:59 Dose: Not Given Magnesium Hydroxide (Milk Of Magnesia -) 30 ml PO PRN PRN PRN Reason: CONSTIPATION Last Admin: 09/13/19 02:56 Dose: 30 ml Nicotine (Nicoderm Patch -) 7 mg TD DAILY [facility] Last Admin: 09/13/19 10:25 Dose: Not Given Ondansetron HCl (Zofran Injection) 4 mg IVPUSH Q6H PRN PRN Reason: NAUSEA Oxybutynin Chloride (Ditropan -) 5 mg PO TID [facility] Last Admin: 09/13/19 05:52 Dose: 5 mg Oxycodone HCl (Oxycontin -) 80 mg PO BID [facility] Last Admin: 09/13/19 10:16 Dose: 80 mg Oxycodone HCl (Roxicodone -) 30 mg PO Q4H PRN PRN Reason: PAIN LEVEL 7 - 10 Last Admin: 09/13/19 08:31 Dose: 30 mg Pantoprazole Sodium (Protonix -) 40 mg PO DAILY [facility] Last Admin: 09/13/19 10:18 Dose: 40 mg Polyethylene Glycol (Miralax (For Daily Use) -) 17 gm PO DAILY [facility] Last Admin: 09/13/19 10:15 Dose: 17 grams Pregabalin (Lyrica -) 100 mg PO TID [facility] Last Admin: 09/13/19 05:52 Dose: 100 mg Senna (Senna -) 1 tab PO BID [facility] Last Admin: 09/13/19 10:18 Dose: 1 tab - Objective Vital Signs: Vital Signs Temperature 97.9 F 09/13/19 06:00 Pulse Rate 86 09/13/19 06:00 Respiratory Rate 18 09/13/19 06:00 Blood Pressure 147/92 09/13/19 06:00 O2 Sat by Pulse Oximetry (%) 98 09/12/19 21:00 Constitutional: Yes: No Distress, Calm Cardiovascular: Yes: S1, S2 Respiratory: Yes: Regular, CTA Bilaterally Gastrointestinal: Yes: Normal Bowel Sounds, Soft Musculoskeletal: Yes: WNL Extremities: Yes: Other Integumentary: Yes: Erythema Wound/Incision: Yes: Dressing Dry and Intact Neurological: Yes: Alert, Oriented Psychiatric: Yes: Alert, Oriented Labs: CBC, BMP 09/13/19 06:00 09/13/19 07:33 Assessment/Plan Problem List - Problems (1) Anemia Code(s): D64.9 - ANEMIA, UNSPECIFIED (2) Chronic pain Code(s): G89.29 - OTHER CHRONIC PAIN (3) Depression Code(s): F32.9 - MAJOR DEPRESSIVE DISORDER, SINGLE EPISODE, UNSPECIFIED (4) HTN (hypertension) Code(s): I10 - ESSENTIAL (PRIMARY) HYPERTENSION (5) Infection of lower extremity associated with hardware Code(s): T84.7XXA - INFECT/INFLM REACT DUE TO OTH INT ORTH PROSTH DEV/GRFT, INIT (6) Wound, open, hip or thigh Code(s): [id number] - Assessment/Plan 64 y/o F with hx L total hip arthroplasty s/p washout and wound vac, multiple drug resistant bacteria (most recently, 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 cx results noted continue abx wound care rest as per the team
[2019-09-13] MEDS ORDERED: amLODIPine BESYLATE 5 MG TABLET (FP) PO SCH (13:45)
--- NOTE | 2019-09-13 16:12 | PN ---
Progress Note (short form) - Note Progress Note: Hospitalist Medicine s/p I&D L hip, delayed primary closure L hip. For repeat washout today per nurse Vitals 09/13/19 14:00 Temperature 98.2 F Pulse Rate 82 Respiratory 20 Rate Blood Pressure 145/86 Physical Exam GENERAL: Sitting on bed, in NAD HEAD: Normal with no signs of trauma. LUNGS: CTA b/l . no accessory m usage HEART: Regular rate and rhythm, S1, S2 without murmur, rub or gallop. ABDOMEN: Soft, nontender, nondistended, normoactive bowel sounds. EXTREMITIES: 2+ pulses, warm, well-perfused, no edema. +L hip w/ dressing, serous drainage on gauze. SKIN: Warm, dry, normal turgor, no rashes or lesions noted Laboratory Tests 09/13/19 09/13/19 06:00 07:33 WBC 6.9 Hgb 10.2 L Hct 31.8 L Plt Count 270 Sodium 139 Potassium 3.9 Chloride 108 H Carbon Dioxide 25 Anion Gap 7 L BUN 15.8 Creatinine 0.9 Microbiology 09/09/19 11:20 Hip - Left Gram Stain - Final 09/09/19 11:20 Hip - Left Wound Culture - Final Enterococcus Faecalis 09/09/19 11:20 Hip - Left Gram Stain - Final 09/09/19 11:20 Hip - Left Wound Culture - Final Enterococcus Faecalis 09/09/19 11:20 Hip - Left Gram Stain - Final 09/09/19 11:20 Hip - Left Wound Culture - Final Enterococcus Faecalis 09/04/19 18:00 Hip - Left Gram Stain - Final 09/04/19 18:00 Hip - Left Wound Culture - Final NO GROWTH OF AEROBIC ORGANISMS AFTER 48 HOURS INCUBATION ASSESSMENT/PLAN: 64 y/o F with hx L total hip arthroplasty s/p washout and wound vac, multiple drug resistant bacteria (most recently, 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 Pt seen this AM. Pt is to return to the OR per sx on 09/09/19, for I&D L hip and delayed primary closure. #s/p repeat I&D L hip wound (09/04, 12/23) -for repeat washout today per nurse -Pain control: on cymbalta, roxicodone q4h PRN per sx , oxycontin per sx -Pt also on lyrica -DVT PPx: -Chemical: ASA 81mg PO BID -Mechanical: SOUTH's, SCD's. -wound cx (+) e. faecalis, sens to amp ; on unasyn (09/10) -Incentive spirometry q15 min. -PT/OT/Rehab, OOB. -WBAT RLE; NWB LLE. #HTN -started on norvasc 5mg qd #Constipation -c/w senna, colace #Smoking cessation -on nicotine patch #F/E/N off IVF continue to follow lytes reg diet #PPX DVT: mechanical SCD's; on asa BID per sx GI: protonix #Dispo monitoring on med-surg for repeat washout today all recs per sx
[2019-09-13] MEDS ORDERED: PROPOFOL 20 ML ONE (17:30)
[2019-09-13] MEDS ORDERED: MIDAZOLAM HCL 2 MG/2 ML SINGLE DOSE VIAL ONE (17:30)
[2019-09-13] MEDS ORDERED: ceFAZolin SODIUM 1 GM VIAL IVPB ONE (18:45)
--- NOTE | 2019-09-13 19:06 | PN ---
Teaching Attending Note Name of Resident: Cynthia Farah ATTENDING PHYSICIAN STATEMENT I saw and evaluated the patient. I reviewed the resident's note and discussed the case with the resident. I agree with the resident's findings and plan as documented. 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 S/p washout and I&D in OR today due to delayed wound closure. Findings did not show concern for acute infection of wound site. Physical Exam GENERAL: Sitting on bed, in NAD HEAD: Normal with no signs of trauma. LUNGS: CTA b/l . no accessory m usage HEART: Regular rate and rhythm, S1, S2 without murmur, rub or gallop. ABDOMEN: Soft, nontender, nondistended, normoactive bowel sounds. EXTREMITIES: 2+ pulses, warm, well-perfused, no edema. +L hip w/ dressing, serous drainage on gauze. SKIN: Warm, dry, normal turgor, no rashes or lesions noted Vital Signs - 24 hr 09/13/19 09/13/19 09/13/19 02:00 06:00 10:30 Temperature 98 F 97.9 F 98.8 F Pulse Rate 94 H 86 80 Respiratory 18 18 20 Rate Blood Pressure 166/85 147/92 140/90 O2 Sat by Pulse Oximetry (%) 09/13/19 09/13/19 09/13/19 14:00 16:30 19:39 Temperature 98.2 F 98 F 98.7 F Pulse Rate 82 95 H 96 H Respiratory 20 18 16 Rate Blood Pressure 145/86 153/96 167/90 O2 Sat by Pulse 100 Oximetry (%) 09/13/19 09/13/19 09/13/19 19:55 20:10 20:25 Temperature Pulse Rate 95 H 96 H 98 H Respiratory 12 14 14 Rate Blood Pressure 155/80 150/64 148/66 O2 Sat by Pulse 98 98 99 Oximetry (%) 09/13/19 20:40 Temperature Pulse Rate 96 H Respiratory 12 Rate Blood Pressure 152/84 O2 Sat by Pulse 99 Oximetry (%) [facility] 09/09/19 11:20 Hip - Left Gram Stain - Final 09/09/19 11:20 Hip - Left Wound Culture - Final Enterococcus Faecalis 09/09/19 11:20 Hip - Left Gram Stain - Final 09/09/19 11:20 Hip - Left Wound Culture - Final Enterococcus Faecalis 09/09/19 11:20 Hip - Left Gram Stain - Final 09/09/19 11:20 Hip - Left Wound Culture - Final Enterococcus Faecalis 09/04/19 18:00 Hip - Left Gram Stain - Final 09/04/19 18:00 Hip - Left Wound Culture - Final NO GROWTH OF AEROBIC ORGANISMS AFTER 48 HOURS INCUBATION Laboratory Results - last 24 hr 09/13/19 09/13/19 06:00 07:33 WBC 6.9 RBC 4.31 Hgb 10.2 L Hct 31.8 L MCV 73.8 L MCH 23.6 L MCHC 32.1 RDW 20.2 H Plt Count 270 MPV 7.2 L Absolute Neuts (auto) 4.3 Neutrophils % 61.7 Lymphocytes % 20.7 D Monocytes % 7.2 Eosinophils % 9.5 H Basophils % 0.9 Nucleated RBC % 0 Sodium 139 Potassium 3.9 Chloride 108 H Carbon Dioxide 25 Anion Gap 7 L BUN 15.8 Creatinine 0.9 Est GFR (CKD-EPI)AfAm 78.32 Est GFR (CKD-EPI)NonAf 67.57 Random Glucose 102 Calcium 8.9 Phosphorus 4.4 Magnesium 2.3 Current Medications Generic Name Dose Route Start Last Admin Trade Name Freq PRN Reason Stop Dose Admin Al Hydroxide/Mg Hydroxide 30 ml 09/13/19 20:38 Mylanta Oral Suspension - PO Q4H PRN DYSPEPSIA Amlodipine Besylate 5 mg 09/14/19 10:00 Norvasc - PO DAILY [facility] Aspirin 81 mg 09/13/19 22:00 Asa - PO BID [facility] Duloxetine HCl 30 mg 09/13/19 22:00 Cymbalta - PO BID [facility] Fentanyl 50 mcg 09/13/19 20:38 Sublimaze Injection - IVPUSH Q5M PRN PAIN-PACU ORDER X 4 DOSES ONLY Lactated Ringer's 1,000 mls @ 125 mls/hr 09/13/19 20:00 Lactated Ringers Solution IV ASDIR [facility] Ampicillin Sodium/Sulbactam 100 mls @ 200 mls/hr 09/14/19 02:00 Sodium 3 gm/ Sodium Chloride IVPB Q8H-IV [facility] Magnesium Hydroxide 30 ml 09/13/19 20:38 Milk Of Magnesia - PO PRN PRN CONSTIPATION Nicotine 7 mg 09/14/19 10:00 Nicoderm Patch - TD DAILY [facility] Ondansetron HCl 4 mg 09/13/19 20:38 Zofran Injection IVPUSH Q6H PRN [facility] Oxybutynin Chloride 5 mg 09/13/19 22:00 Ditropan - PO TID [facility] Oxycodone HCl 30 mg 09/13/19 20:38 Roxicodone - PO Q4H PRN PAIN LEVEL 7 - 10 Oxycodone HCl 80 mg 09/13/19 22:00 Oxycontin - PO BID [facility] Pantoprazole Sodium 40 mg 09/14/19 10:00 Protonix - PO DAILY [facility] Polyethylene Glycol 17 gm 09/14/19 10:00 Miralax (For Daily Use) - PO DAILY [facility] Pregabalin 100 mg 09/13/19 22:00 Lyrica - PO TID [facility] Senna 1 tab 09/13/19 22:00 Senna - PO BID [facility] A/P: 64 F h/o L hip arthroplasty complicated by wound infections with MDR bacteria and chronic L wound ulcers, sent for washout and I&D of wound in OR today which did not reveal any concern for active infection. L hip arthroplasty with recurrent wound infections No signs of active infection as per OR procedure today As Per orthopedics team, switch Unasyn to PO Linezolid to augment easier discharge. Follow cultures. Monitor for fever spikes, trend CBC, treat pain as per Orthopedic recommendations HTN Controlled Cont. BP meds Anxiety disorder Not in acute exacerbation Cont. home meds OAB Stable, cont. home meds SLE Not in acute flare up Cont. home meds DVT ppx: SCD for now
--- NOTE | 2019-09-13 19:40 | OP ---
Operative Note - Note: Operative Date: 09/13/19 Pre-Operative Diagnosis: Chronic Wound Left Thigh Operation: Iand D Wound with Delayed primary suture Findings: Pale granulation tissue Extensive induration Heterotopic ossification in the tissues Surgeon: Albert Moya Maori Physiotherapist: Gelacio Moya Anesthesia: General Specimens Removed: Deep tissue for histopathology Estimated Blood Loss (mls): 20 Drains & Tubes with Location: 19F drain Fluid Volume Replaced (mls): 500 (Crystalloid) Operative Report Dictated: Yes
--- NOTE | 2019-09-13 19:44 | PN ---
Progress Note (short form) - Note Progress Note: 64F p/w recurrent left hip wound dehiscence now s/p I&D left hip wound with delayed primary closure POD #0. Deep cavity persists. No wound purulence or signs of contamination. No malodor. No clinical concern for infection. Deep drain sutured into place. -Recommend switching back to Lizenolid PO to facilitate easy dosing and discharge planning. -Pain control: Patient's baseline meds - Oxycontin 80mg PO BID; oxycodone 30mg PO q4h PRN for breakthrough pain. -DVT PPx: -Chemical: ASA 81mg PO qD. -Mechanical: SOUTH's, SCD's. -Incentive spirometry q15 min. -PT/OT/Rehab, OOB. -WBAT RLE; NWB LLE. -f/u post-op TOV: 8 hours max. -Diet as tolerated. -f/u intra-op tissue specimen. -Discharge planning: home tomorrow w/[facility] services; NO DRESSING CHANGES x 2 WEEKS ; train patient to empty drain cannister and maintain negative pressure in cannister; drain cleaning supplies; f/u 7-10 days after rehab discharge at [facility] [place] office; call for appointment; . Albert Moya MD (Orthopaedic Surgery).
[2019-09-13] MEDS ORDERED: LACTATED RINGERS SOLUTION 1,000 ML IV SCH (20:00)
[2019-09-13] MEDS ORDERED: MAGNESIUM HYDROX 2400MG/30ML ORAL SUSPENSION 30 ML CUP PO PRN (20:38)
[2019-09-13] MEDS ORDERED: MAG HYDROX/AL HYDROX/SIMETH 30 ML UNIT-DOSE CUP PO PRN (20:38)
[2019-09-13] MEDS ORDERED: ONDANSETRON 4 MG/2 ML VIAL IVPUSH PRN (20:38)
--- NOTE | 2019-09-13 23:55 | OP ---
DATE OF OPERATION: DATE OF DICTATION: 09/13/2019 SURGEON: Albert Moya M.D. AIRPORT OPERATIONS COORDINATOR: Gelacio Moya M.D. PREOPERATIVE DIAGNOSIS: Chronic septic wound, left proximal upper thigh. POSTOPERATIVE DIAGNOSIS: Chronic septic wound, left proximal upper thigh. OPERATION PERFORMED: 1. Incision and drainage, left complex, chronic left hip wound (73796). 2. Complex wound closure approximately 10 cm; delayed primary closure over a drain ([id number] x 2). ANESTHESIA: General. POSITION: Lateral decubitus left side up. ANTIBIOTICS GIVEN: 2 g Ancef preoperatively. OPERATION DETAILS: The patient was correctly identified, brought in operating room. Left lower extremity was prepped, free draped in the routine manner with Betadine scrub solution, wiped off with alcohol, DuraPrep applied. Patient was placed in lateral decubitus position. OPERATION DETAILS: The patient was correctly identified, brought in operating room. Left lower extremity was prepped, draped in the routine manner with Betadine scrub solution, wiped off with alcohol, DuraPrep applied. Patient was placed in lateral decubitus position. A window drape applied over the wound area. INDICATION: The patient has been suffering from a massive wound of the proximal upper thigh right down to the pelvis, adductor compartment of the thigh, mid leg ; resection of the proximal femur was performed because of chronic osteomyelitis and heterotopic ossification bone formation leaving a large cavity which has been treated for many months with secondary intention using a wound VAC, and watching the tissues close over time resulted in the start of delayed primary closure approximately 1 month ago. The closure of the skin was intentional over a cavity knowing full well that the drainage would persist and repeat debridements would be necessary, but at least the skin would be approximated. I have decided against any local free flaps because of mutilation of the limb, which would make things more significantly problematic to her. The ultimate aim is the thought of as per the patient's wishes an endoprosthetic replacement; this will be decided in many months time dependent on many factors accordingly. Today patient is here for a definite principal treatment that will be washout, debridement, and primary closure, but at this time over a drain, a Hemovac drain, for which she will be sent home, and home drainage will be facilitating the removal of transudate and exudate from the wound. The ultimate plan is to have the skin closed and healed well, and the deep cavity to close within the confines of the tissue itself. No doubt infection will persist, and this will drain through a sinus, allow the sinus to consolidate and the deeper tissues to consolidate, and at the right time methylene blue will be instilled into the sinus, the wound will be opened, and all blue stained tissue will be resected and removed, and a primary closure will be performed at that time hopefully with healthy granulation tissue being opposed to healthy granulation tissue and healthy skin to skin. Operation details: The patient with all the sutures removed, the wound was opened. The tissues were lavaged with 3 L of saline, and then a Betadine scrub to remove any biofilm was utilized. The wound was then lavaged free of this first phase wash . Once this had been completed, approximately 200 mL of 50% Betadine solution was instilled into the tissues, left for 3 minutes, and then removed and a repeat 3 L washout performed. Vertical mattress number 1 PDS sutures were then applied. A large Hemovac drain inserted, brought out distally and laterally in the thigh. A sealed, dry dressing applied. Overall comment: Patient tolerated the operation well, will be discharged home. No need for antibiotics. Drainage is the bolton issue here. We are aware of the polymicrobial infections that have occurred in there ranging from Staphylococcus aureus to methicillin-resistant Staphylococcus aureus to klebsiella species to Enterobacter species. There was no foul smell, and the tissues themselves at this operation appeared well maintained, mixed more angry granulation to more fibrotic granulation tissue noted. MD OSVALDO Oconnor/[id number] LA NENA
[2019-09-14] MEDS ORDERED: PT OWN MED DRAWER 7, Y5N ONE ×3 (01:20→16:59)
[2019-09-14] MEDS: AMPICILLIN NA/SULBACTAM NA 3 GM in SODIUM CHLORIDE 100 ML IVPB SCH ×3 (01:43→17:07)
[2019-09-14] MEDS: oxyCODONE HCL 5 MG TABLET PO PRN ×5 (03:43→20:07)
[2019-09-14] MEDS: PREGABALIN 100 MG CAPSULE PO SCH ×3 (05:58→22:24)
[2019-09-14] MEDS: OXYBUTYNIN CHLORIDE 5 MG TABLET PO SCH ×3 (05:58→22:26)
--- NOTE | 2019-09-14 10:17 | PN ---
Progress Note, Physician History of Present Illness: stable no new issues - Current Medication List Current Medications: Active Medications Al Hydroxide/Mg Hydroxide (Mylanta Oral Suspension -) 30 ml PO Q4H PRN PRN Reason: DYSPEPSIA Amlodipine Besylate (Norvasc -) 5 mg PO DAILY [facility] Aspirin (Asa -) 81 mg PO BID [facility] Last Admin: 09/13/19 22:08 Dose: 81 mg Duloxetine HCl (Cymbalta -) 30 mg PO BID [facility] Last Admin: 09/13/19 22:09 Dose: 30 mg Fentanyl (Sublimaze Injection -) 50 mcg IVPUSH Q5M PRN PRN Reason: PAIN-PACU ORDER X 4 DOSES ONLY Ampicillin Sodium/Sulbactam (Sodium 3 gm/ Sodium Chloride) 100 mls @ 200 mls/ hr IVPB Q8H-IV [facility] Last Admin: 09/14/19 01:43 Dose: Not Given Magnesium Hydroxide (Milk Of Magnesia -) 30 ml PO PRN PRN PRN Reason: CONSTIPATION Nicotine (Nicoderm Patch -) 7 mg TD DAILY [facility] Ondansetron HCl (Zofran Injection) 4 mg IVPUSH Q6H PRN PRN Reason: NAUSEA Oxybutynin Chloride (Ditropan -) 5 mg PO TID [facility] Last Admin: 09/14/19 05:58 Dose: 5 mg Oxycodone HCl (Roxicodone -) 30 mg PO Q4H PRN PRN Reason: PAIN LEVEL 7 - 10 Last Admin: 09/14/19 08:30 Dose: 30 mg Oxycodone HCl (Oxycontin -) 80 mg PO BID [facility] Last Admin: 09/13/19 22:08 Dose: 80 mg Pantoprazole Sodium (Protonix -) 40 mg PO DAILY [facility] Polyethylene Glycol (Miralax (For Daily Use) -) 17 gm PO DAILY [facility] Pregabalin (Lyrica -) 100 mg PO TID [facility] Last Admin: 09/14/19 05:58 Dose: 100 mg Senna (Senna -) 1 tab PO BID [facility] Last Admin: 09/13/19 22:09 Dose: 1 tab - Objective Vital Signs: Vital Signs Temperature 97.8 F 09/14/19 06:00 Pulse Rate 90 09/14/19 06:00 Respiratory Rate 18 09/14/19 06:00 Blood Pressure 136/80 09/14/19 06:00 O2 Sat by Pulse Oximetry (%) 97 09/13/19 22:00 Constitutional: Yes: No Distress, Calm HENT: Yes: Atraumatic, Normocephalic Cardiovascular: Yes: S1, S2 Respiratory: Yes: Regular, CTA Bilaterally Gastrointestinal: Yes: Normal Bowel Sounds, Soft Musculoskeletal: Yes: Other Extremities: Yes: Other Wound/Incision: Yes: Other (wound vac in place) Neurological: Yes: Alert, Oriented Labs: CBC, BMP 09/13/19 06:00 09/13/19 07:33 Assessment/Plan Problem List - Problems (1) Anemia Code(s): D64.9 - ANEMIA, UNSPECIFIED (2) Chronic pain Code(s): G89.29 - OTHER CHRONIC PAIN (3) Depression Code(s): F32.9 - MAJOR DEPRESSIVE DISORDER, SINGLE EPISODE, UNSPECIFIED (4) HTN (hypertension) Code(s): I10 - ESSENTIAL (PRIMARY) HYPERTENSION (5) Infection of lower extremity associated with hardware Code(s): T84.7XXA - INFECT/INFLM REACT DUE TO OTH INT ORTH PROSTH DEV/GRFT, INIT (6) Wound, open, hip or thigh Code(s): TCH6866 - Assessment/Plan 64 y/o F with hx L total hip arthroplasty s/p washout and wound vac, multiple drug resistant bacteria (most recently, 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 cx results noted continue abx wound care rest as per the team patient had a wash out await for deep tissue pathology
[2019-09-14] MEDS: PANTOPRAZOLE 40 MG TABLET (FP) PO SCH (10:42)
[2019-09-14] MEDS: DULoxetine HCL 30 MG CAPSULE.DR PO SCH ×2 (10:42→22:24)
[2019-09-14] MEDS: oxyCODONE HCL 80 MG SUSTAINED ACTING TABLET PO SCH ×2 (10:43→22:24)
[2019-09-14] MEDS: ASPIRIN 81 MG CHEWABLE TABLETS PO SCH ×2 (10:43→22:24)
[2019-09-14] MEDS: SENNOSIDES 8.6MG TABLET (FP) PO SCH ×2 (10:43→22:24)
[2019-09-14] MEDS: POLYETHYLENE GLYCOL 3350 119 GM BTL PO SCH (10:43)
[2019-09-14] MEDS: amLODIPine BESYLATE 5 MG TABLET (FP) PO SCH (10:43)
[2019-09-14] MEDS: NICOTINE 7 MG/24 HOURS TOPICAL PATCH TD SCH (10:44)
--- NOTE | 2019-09-14 13:10 | PN ---
Physical Exam: SUBJECTIVE: Patient seen and examined Has continued issues with drainage being obstructed from the wound. Will reach out to the specialists regarding the overall care. She is doing well otherwise and tells me that her pain is present but controlled. Nursing and our team to reach out to sgy. 10 sys ROS done and negative aside from HPI OBJECTIVE: Vital Signs Period Temp Pulse Resp BP Sys/Vargas Pulse Ox Last 24 Hr 97.8 F-98.8 F 82-111 12-20 124-167/54-96 97-100 GENERAL: The patient is awake, alert, and fully oriented, in no acute distress. HEAD: Normal with no signs of trauma. EYES: PERRL, extraocular movements intact, sclera anicteric, conjunctiva clear. No ptosis. ENT: Ears normal, nares patent, oropharynx clear without exudates, moist mucous membranes. NECK: Trachea midline, full range of motion, supple. LUNGS: Breath sounds equal, clear to auscultation bilaterally, no wheezes, no crackles, no accessory muscle use. HEART: Regular rate and rhythm, S1, S2 without murmur, rub or gallop. ABDOMEN: Soft, nontender, nondistended, normoactive bowel sounds, no guarding, no rebound, no hepatosplenomegaly, no masses. EXTREMITIES: 2+ pulses, warm, well-perfused, no edema. NEUROLOGICAL: Cranial nerves II through XII grossly intact. Normal speech, gait not observed. PSYCH: Normal mood, normal affect. SKIN: Warm, dry, normal turgor, no rashes or lesions noted Active Medications Generic Name Dose Route Start Last Admin Trade Name Freq PRN Reason Stop Dose Admin Al Hydroxide/Mg Hydroxide 30 ml 09/13/19 20:38 Mylanta Oral Suspension - PO Q4H PRN DYSPEPSIA Amlodipine Besylate 5 mg 09/14/19 10:00 09/14/19 10:43 Norvasc - PO 5 mg DAILY [facility] Administration Aspirin 81 mg 09/13/19 22:00 09/14/19 10:43 Asa - PO 81 mg BID [facility] Administration Duloxetine HCl 30 mg 09/13/19 22:00 09/14/19 10:42 Cymbalta - PO 30 mg BID [facility] Administration Fentanyl 50 mcg 09/13/19 20:38 Sublimaze Injection - IVPUSH Q5M PRN PAIN-PACU ORDER X 4 DOSES ONLY Ampicillin Sodium/Sulbactam 100 mls @ 200 mls/hr 09/14/19 02:00 09/14/19 11: 16 Sodium 3 gm/ Sodium Chloride IVPB 200 mls/hr Q8H-IV [facility] Administration Magnesium Hydroxide 30 ml 09/13/19 20:38 Milk Of Magnesia - PO PRN PRN CONSTIPATION Nicotine 7 mg 09/14/19 10:00 09/14/19 10:44 Nicoderm Patch - TD Not Given DAILY [facility] Ondansetron HCl 4 mg 09/13/19 20:38 Zofran Injection IVPUSH Q6H PRN [facility] Oxybutynin Chloride 5 mg 09/13/19 22:00 09/14/19 05:58 Ditropan - PO 5 mg TID [facility] Administration Oxycodone HCl 30 mg 09/13/19 20:38 09/14/19 13:00 Roxicodone - PO 30 mg Q4H PRN Administration PAIN LEVEL 7 - 10 Oxycodone HCl 80 mg 09/13/19 22:00 09/14/19 10:43 Oxycontin - PO 80 mg BID [facility] Administration Pantoprazole Sodium 40 mg 09/14/19 10:00 09/14/19 10:42 Protonix - PO 40 mg DAILY [facility] Administration Polyethylene Glycol 17 gm 09/14/19 10:00 09/14/19 10:43 Miralax (For Daily Use) - PO 17 grams DAILY [facility] Administration Pregabalin 100 mg 09/13/19 22:00 09/14/19 05:58 Lyrica - PO 100 mg TID [facility] Administration Senna 1 tab 09/13/19 22:00 09/14/19 10:43 Senna - PO 1 tab BID [facility] Administration Microbiology 09/09/19 11:20 Hip - Left Gram Stain - Final 09/09/19 11:20 Hip - Left Wound Culture - Final Enterococcus Faecalis 09/09/19 11:20 Hip - Left Gram Stain - Final 09/09/19 11:20 Hip - Left Wound Culture - Final Enterococcus Faecalis 09/09/19 11:20 Hip - Left Gram Stain - Final 09/09/19 11:20 Hip - Left Wound Culture - Final Enterococcus Faecalis 09/04/19 18:00 Hip - Left Gram Stain - Final 09/04/19 18:00 Hip - Left Wound Culture - Final NO GROWTH OF AEROBIC ORGANISMS AFTER 48 HOURS INCUBATION ASSESSMENT/PLAN: She presents for recurring wound infections with postive cultures as delineated above. Problems include: -Postoperative wound infection with current dehissence; anticipating that she will require additional washout (+ EF cultures; abx longterm IV vs. PO will d/ w ID regarding course and of course final management per ortho; abx per culture results as per team. ESR/CRP to be trended, monitor for clinical decompensation with respect to sepsis.) -Chronic Pain (Pain management per orthopedics; monitor for neuropathic symptoms and can titrate neuroleptics as needed) -Tobacco Abuse (Continue NRT; she has no complaints now regarding cravings. [employer] prior to DC) -Chronic Opioid-induced Constipation (Continue current regimine, consider novel agent if continual issues postop) -Obesity ([employer] prior to DC; hindrance to wound healing) Dispo: TO OR TODAY. DC planning is pending microbio, pain control, and determination of final abx course. Full Code Visit type - Emergency Visit Emergency Visit: Yes ED Registration Date: 09/04/19 Care time: The patient presented to the Emergency Department on the above date and was hospitalized for further evaluation of their emergent condition. - New Patient This patient is new to me today: No - Critical Care Critical Care patient: No
[2019-09-14 16:26] LABS: BLOOD UREA NITROGEN 20.2 mg/dL (7-18); MAGNESIUM 2.2 mg/dL (1.8-2.4); POTASSIUM 4.1 mmol/L (3.5-5.1)
[2019-09-14 16:44] LABS: ERYTHROCYTE SEDIMENTATION RATE 74 mm/hr (0-30)
[2019-09-14 16:48] LABS: BASO % 0.4 % (0-2.0); EOS % 0.8 % (0-4.5); HEMATOCRIT 31.6 % (32.4-45.2); HEMOGLOBIN 10.1 GM/dL (10.7-15.3); LYMPH % 12.1 % (8-40); MCH 23.6 pg (25.7-33.7); MCHC 31.8 g/dl (32.0-36.0); MEAN CELL VOLUME 74.1 fl (80-96); MEAN PLT VOLUME 7.7 fl (7.5-11.1); MONO % 4.6 % (3.8-10.2); NEUT % 82.1 % (42.8-82.8); PLATELET COUNT 332 K/MM3 (134-434); RBC 4.27 M/mm3 (3.60-5.2); RDW 19.7 % (11.6-15.6); WHITE BLOOD COUNT 12.5 K/mm3 (4.0-10.0)
--- NOTE | 2019-09-14 17:14 | PN ---
Progress Note (short form) - Note Progress Note: 64F s/p I&D left Hip under GA now POD#1. No anesthesia related complications. Continue management per primary team.
[2019-09-15] MEDS ORDERED: PT OWN MED DRAWER 7, Y5N ONE ×3 (01:27→16:54)
[2019-09-15] MEDS: oxyCODONE HCL 5 MG TABLET PO PRN ×5 (01:29→21:27)
[2019-09-15] MEDS: AMPICILLIN NA/SULBACTAM NA 3 GM in SODIUM CHLORIDE 100 ML IVPB SCH ×3 (01:41→17:20)
--- NOTE | 2019-09-15 03:05 | PN ---
Progress Note (short form) - Note Progress Note: RN paged resident pager and the call was returned immediately. Pt reported to be pulling off surgical dressing. Pt found to have soaked 4x4 dressing below surgical dressing with the posterior aspect peeled off; located on LEFT lower extremity, laterally. The packed dressing contents were coming out. The pt reported the drain had fallen out and the wet dressing was bothersome. Pt was advised repeatedly DO NOT REMOVE DRESSING and she proceeded despite this recommendation. The wound was NOT indurated, erythematous, or producing discharge. There was some fresh blood at wound margins. There was a foul smell. The pt stated she regularly changes her dressings in this manner at home and proceeded. She placed 4x4s and abdominal pads over the open wound and proceeded to apply tension bandages (dry). Dr. Moya's service called and made aware; recommended dry dressing.
[2019-09-15] MEDS: PREGABALIN 100 MG CAPSULE PO SCH ×3 (06:27→21:28)
[2019-09-15] MEDS: OXYBUTYNIN CHLORIDE 5 MG TABLET PO SCH ×3 (06:27→21:28)
[2019-09-15] MEDS: oxyCODONE HCL 80 MG SUSTAINED ACTING TABLET PO SCH ×2 (10:06→21:27)
[2019-09-15] MEDS: amLODIPine BESYLATE 5 MG TABLET (FP) PO SCH (10:06)
[2019-09-15] MEDS: PANTOPRAZOLE 40 MG TABLET (FP) PO SCH (10:06)
[2019-09-15] MEDS: ASPIRIN 81 MG CHEWABLE TABLETS PO SCH ×2 (10:06→21:28)
[2019-09-15] MEDS: DULoxetine HCL 30 MG CAPSULE.DR PO SCH ×2 (10:06→21:28)
[2019-09-15] MEDS: SENNOSIDES 8.6MG TABLET (FP) PO SCH ×2 (10:06→21:28)
[2019-09-15] MEDS: NICOTINE 7 MG/24 HOURS TOPICAL PATCH TD SCH ×2 (10:07→10:17)
[2019-09-15] MEDS: POLYETHYLENE GLYCOL 3350 119 GM BTL PO SCH (10:07)
--- NOTE | 2019-09-15 12:02 | PN ---
Progress Note, Physician History of Present Illness: patient stable no new issues loosing iv line - Current Medication List Current Medications: Active Medications Al Hydroxide/Mg Hydroxide (Mylanta Oral Suspension -) 30 ml PO Q4H PRN PRN Reason: DYSPEPSIA Amlodipine Besylate (Norvasc -) 5 mg PO DAILY [facility] Last Admin: 09/15/19 10:06 Dose: 5 mg Aspirin (Asa -) 81 mg PO BID [facility] Last Admin: 09/15/19 10:06 Dose: 81 mg Duloxetine HCl (Cymbalta -) 30 mg PO BID [facility] Last Admin: 09/15/19 10:06 Dose: 30 mg Fentanyl (Sublimaze Injection -) 50 mcg IVPUSH Q5M PRN PRN Reason: PAIN-PACU ORDER X 4 DOSES ONLY Ampicillin Sodium/Sulbactam (Sodium 3 gm/ Sodium Chloride) 100 mls @ 200 mls/ hr IVPB Q8H-IV [facility] Last Admin: 09/15/19 10:06 Dose: 200 mls/hr Magnesium Hydroxide (Milk Of Magnesia -) 30 ml PO PRN PRN PRN Reason: CONSTIPATION Nicotine (Nicoderm Patch -) 7 mg TD DAILY [facility] Last Admin: 09/15/19 10:17 Dose: Not Given Ondansetron HCl (Zofran Injection) 4 mg IVPUSH Q6H PRN PRN Reason: NAUSEA Oxybutynin Chloride (Ditropan -) 5 mg PO TID [facility] Last Admin: 09/15/19 06:27 Dose: 5 mg Oxycodone HCl (Roxicodone -) 30 mg PO Q4H PRN PRN Reason: PAIN LEVEL 7 - 10 Last Admin: 09/15/19 06:25 Dose: 30 mg Oxycodone HCl (Oxycontin -) 80 mg PO BID [facility] Last Admin: 09/15/19 10:06 Dose: 80 mg Pantoprazole Sodium (Protonix -) 40 mg PO DAILY [facility] Last Admin: 09/15/19 10:06 Dose: 40 mg Polyethylene Glycol (Miralax (For Daily Use) -) 17 gm PO DAILY [facility] Last Admin: 09/15/19 10:07 Dose: 17 grams Pregabalin (Lyrica -) 100 mg PO TID [facility] Last Admin: 09/15/19 06:27 Dose: 100 mg Senna (Senna -) 1 tab PO BID [facility] Last Admin: 09/15/19 10:06 Dose: 1 tab - Objective Vital Signs: Vital Signs Temperature 97.9 F 09/15/19 10:00 Pulse Rate 92 H 09/15/19 10:00 Respiratory Rate 20 09/15/19 10:00 Blood Pressure 150/82 09/15/19 10:00 O2 Sat by Pulse Oximetry (%) 97 09/14/19 09:00 Constitutional: Yes: No Distress, Calm Cardiovascular: Yes: S1, S2 Respiratory: Yes: Regular, CTA Bilaterally Gastrointestinal: Yes: Normal Bowel Sounds, Soft Musculoskeletal: Yes: Other Extremities: Yes: Other Wound/Incision: Yes: Dressing Dry and Intact Neurological: Yes: Alert, Oriented Psychiatric: Yes: Alert, Oriented Labs: CBC, BMP 09/14/19 14:40 09/14/19 14:40 Assessment/Plan Problem List - Problems (1) Anemia Code(s): D64.9 - ANEMIA, UNSPECIFIED (2) Chronic pain Code(s): G89.29 - OTHER CHRONIC PAIN (3) Depression Code(s): F32.9 - MAJOR DEPRESSIVE DISORDER, SINGLE EPISODE, UNSPECIFIED (4) HTN (hypertension) Code(s): I10 - ESSENTIAL (PRIMARY) HYPERTENSION (5) Infection of lower extremity associated with hardware Code(s): T84.7XXA - INFECT/INFLM REACT DUE TO OTH INT ORTH PROSTH DEV/GRFT, INIT (6) Wound, open, hip or thigh Code(s): [id number] - Assessment/Plan 64 y/o F with hx L total hip arthroplasty s/p washout and wound vac, multiple drug resistant bacteria (most recently, 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 cx results noted continue abx wound care rest as per the team awaiting for cx reports continue abx
--- NOTE | 2019-09-15 12:31 | PN ---
Physical Exam: SUBJECTIVE: Patient seen and examined; discussed with Dr. Munoz who agrees that there is a persisting issue with the wound vac draining. Due to concern that she will have to go back to the OR for further washout we will hold DC and will hold for orthopedic sgy evaluation. Continuing current medications. 10 sys ROS done and negative aside from HPI OBJECTIVE: Vital Signs Period Temp Pulse Resp BP Sys/Vargas Pulse Ox Last 24 Hr 97.9 F-98.8 F 91-110 15-20 132-150/75-99 GENERAL: The patient is awake, alert, and fully oriented, in no acute distress. HEAD: Normal with no signs of trauma. EYES: PERRL, extraocular movements intact, sclera anicteric, conjunctiva clear. No ptosis. ENT: Ears normal, nares patent, oropharynx clear without exudates, moist mucous membranes. NECK: Trachea midline, full range of motion, supple. LUNGS: Breath sounds equal, clear to auscultation bilaterally, no wheezes, no crackles, no accessory muscle use. HEART: Regular rate and rhythm, S1, S2 without murmur, rub or gallop. ABDOMEN: Soft, nontender, nondistended, normoactive bowel sounds EXTREMITIES: 2+ pulses, warm, well-perfused, no edema. Wound vac consistently not draining. NEUROLOGICAL: Cranial nerves II through XII grossly intact. Normal speech, gait not observed. PSYCH: Normal mood, normal affect. SKIN: Warm, dry, normal turgor, no rashes or lesions noted Laboratory Results - last 24 hr 09/14/19 09/14/19 14:40 14:40 WBC 12.5 H RBC 4.27 Hgb 10.1 L Hct 31.6 L MCV 74.1 L MCH 23.6 L MCHC 31.8 L RDW 19.7 H Plt Count 332 D MPV 7.7 Absolute Neuts (auto) 10.2 H Neutrophils % 82.1 D Lymphocytes % 12.1 D Monocytes % 4.6 Eosinophils % 0.8 D Basophils % 0.4 Nucleated RBC % 0 ESR 74 H Sodium 138 Potassium 4.1 Chloride 106 Carbon Dioxide 25 Anion Gap 7 L BUN 20.2 H Creatinine 1.0 Est GFR (CKD-EPI)AfAm 68.95 Est GFR (CKD-EPI)NonAf 59.49 Random Glucose 108 H Calcium 9.0 Magnesium 2.2 C-Reactive Protein 1.9 H Active Medications Generic Name Dose Route Start Last Admin Trade Name Freq PRN Reason Stop Dose Admin Al Hydroxide/Mg Hydroxide 30 ml 09/13/19 20:38 Mylanta Oral Suspension - PO Q4H PRN DYSPEPSIA Amlodipine Besylate 5 mg 09/14/19 10:00 09/15/19 10:06 Norvasc - PO 5 mg DAILY [facility] Administration Aspirin 81 mg 09/13/19 22:00 09/15/19 10:06 Asa - PO 81 mg BID [facility] Administration Duloxetine HCl 30 mg 09/13/19 22:00 09/15/19 10:06 Cymbalta - PO 30 mg BID [facility] Administration Fentanyl 50 mcg 09/13/19 20:38 Sublimaze Injection - IVPUSH Q5M PRN PAIN-PACU ORDER X 4 DOSES ONLY Ampicillin Sodium/Sulbactam 100 mls @ 200 mls/hr 09/14/19 02:00 09/15/19 10: 06 Sodium 3 gm/ Sodium Chloride IVPB 200 mls/hr Q8H-IV [facility] Administration Magnesium Hydroxide 30 ml 09/13/19 20:38 Milk Of Magnesia - PO PRN PRN CONSTIPATION Nicotine 7 mg 09/14/19 10:00 09/15/19 10:17 Nicoderm Patch - TD Not Given DAILY [facility] Ondansetron HCl 4 mg 09/13/19 20:38 Zofran Injection IVPUSH Q6H PRN [facility] Oxybutynin Chloride 5 mg 09/13/19 22:00 09/15/19 06:27 Ditropan - PO 5 mg TID [facility] Administration Oxycodone HCl 30 mg 09/13/19 20:38 09/15/19 06:25 Roxicodone - PO 30 mg Q4H PRN Administration PAIN LEVEL 7 - 10 Oxycodone HCl 80 mg 09/13/19 22:00 09/15/19 10:06 Oxycontin - PO 80 mg BID [facility] Administration Pantoprazole Sodium 40 mg 09/14/19 10:00 09/15/19 10:06 Protonix - PO 40 mg DAILY [facility] Administration Polyethylene Glycol 17 gm 09/14/19 10:00 09/15/19 10:07 Miralax (For Daily Use) - PO 17 grams DAILY [facility] Administration Pregabalin 100 mg 09/13/19 22:00 09/15/19 06:27 Lyrica - PO 100 mg TID [facility] Administration Senna 1 tab 09/13/19 22:00 09/15/19 10:06 Senna - PO 1 tab BID [facility] Administration Microbiology 09/09/19 11:20 Hip - Left Gram Stain - Final 09/09/19 11:20 Hip - Left Wound Culture - Final Enterococcus Faecalis 09/09/19 11:20 Hip - Left Gram Stain - Final 09/09/19 11:20 Hip - Left Wound Culture - Final Enterococcus Faecalis 09/09/19 11:20 Hip - Left Gram Stain - Final 09/09/19 11:20 Hip - Left Wound Culture - Final Enterococcus Faecalis 09/04/19 18:00 Hip - Left Gram Stain - Final 09/04/19 18:00 Hip - Left Wound Culture - Final NO GROWTH OF AEROBIC ORGANISMS AFTER 48 HOURS INCUBATION No further imaging ASSESSMENT/PLAN: A/P: Presents for postoperative wound infection; pending washout and cultures. Holding off further abx per ID until culture results made available when she is out of the OR. Postoperative pain control per ortho. Problems include: -Postoperative wound infection with current dehissence; anticipating that she will require additional washout (+ EF cultures; abx custodial IV vs. PO will d/ w ID regarding course and of course final management per ortho; abx per culture results as per team. ESR/CRP to be trended, monitor for clinical decompensation with respect to sepsis.) -Chronic Pain (Pain management per orthopedics; monitor for neuropathic symptoms and can titrate neuroleptics as needed) -Tobacco Abuse (Continue NRT; she has no complaints now regarding cravings. 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 DC planning is pending microbio, pain control, and determination of final abx course. Full Code Visit type - Emergency Visit Emergency Visit: Yes ED Registration Date: 09/04/19 Care time: The patient presented to the Emergency Department on the above date and was hospitalized for further evaluation of their emergent condition. - New Patient This patient is new to me today: No - Critical Care Critical Care patient: No
[2019-09-16] MEDS ORDERED: PT OWN MED DRAWER 7, Y5N ONE ×2 (00:54→17:21)
[2019-09-16] MEDS: AMPICILLIN NA/SULBACTAM NA 3 GM in SODIUM CHLORIDE 100 ML IVPB SCH ×3 (01:00→18:26)
[2019-09-16] MEDS: oxyCODONE HCL 5 MG TABLET PO PRN ×4 (02:48→18:45)
[2019-09-16] MEDS: PREGABALIN 100 MG CAPSULE PO SCH ×3 (06:01→21:52)
[2019-09-16] MEDS: OXYBUTYNIN CHLORIDE 5 MG TABLET PO SCH ×3 (06:01→21:52)
[2019-09-16 09:17] LABS: BLOOD UREA NITROGEN 13.7 mg/dL (7-18); CALCIUM 8.5 mg/dL (8.5-10.1); CREATININE 0.9 mg/dL (0.55-1.3); MAGNESIUM 2.1 mg/dL (1.8-2.4); PHOSPHOROUS 4.6 mg/dL (2.5-4.9); POTASSIUM 3.9 mmol/L (3.5-5.1)
--- NOTE | 2019-09-16 09:18 | OP ---
Date of Operation: 09/09/2019 Surgeon: Gelacio Moya M.D. Supplemental Nurse: None Pre-Operative Diagnosis: Dehiscence, chronic left hip wound. Post-Operative Diagnosis: Dehiscence, chronic left hip wound. Surgical Procedure: 1. Removal left hip wound VAC dressing. 2. Incision and drainage, left complex, chronic left hip wound (72589). 3. Complex wound closure approximately 5 cm ([id number]). Anesthesia: General, LMA. Position: Right lateral decubitus. Incision: None. Estimated Blood Loss: Minimal. Intravenous Fluid: 900cc crystalloid. Drains: None. Complications: None. Urine Output: None. Bacteriology: 3 x culture sticks. Closure: #1 PDS. Indications: The patient is a 64-year-old female who was indicated for a incision, drainage, irrigation, and debridement of her chronic, dehisced left hip wound with possible delayed primary closure versus re-application of wound vac negative pressure therapy device. The patient was identified in the holding area by her arm band. A long discussion was held with the patient regarding the risks, benefits, and alternatives of the above-named procedure. Risks include but are not limited to: pain, bleeding, infection, damage to surrounding structures (including nerves, blood vessels, skin, ligaments, tendons and bone), wound complications, need for further surgery, blood clots, myocardial infarction, pulmonary embolism, cerebrovascular insult, anaesthesia complications, compartment syndrome, limb loss, limp, loss of function, and . Benefits as mentioned above. Alternatives include no surgery. All questions were answered. The patient understood and agreed to the procedure. Informed consent was obtained, witnessed and verified. The patients correct operative limb - that is the left lower extremity - was marked, and the patient was taken to the operating room after being seen by the anesthesia and nursing staff. Procedure: The patient was brought into the operating room, placed on the OR table and secured with a safety strap. Consent and the operative site was again verified with the patient and nursing and anesthesia staff. Anesthesia was then administered. A time-out was then done led by , the attending surgeon. The patient was then safely placed in a right-lateral decubitus position and bolstered with anterior and posterior blanket rolls and kerlix straps. The down arm was placed on a well-padded arm board. The up arm was brought across the patients body and placed on 2 pillows. The wound vac dressing was removed from the left hip. The dehisced wound site was then prepped and draped in the standard sterile fashion using betadine scrub, wiped off with alcohol, and Duraprep applied. Time out was again done and the case began. Pre-operative imaging was available for intra-operative evaluation. 3 Culture swab sticks were used to swab the wound (deep and superficial) and sent to the lab. Indurated, thick, proliferative, polypoid granulation tissue had grown via secondary intention with additional negative pressure stimulation. A cavernous space remained within the wound, but excellent interval healing was evident. There was no sign of infection, or purulence and there was no malodor. The wound dimensions were measured as follows: Length: 5cm. Width: 2cm. Depth: 6cm. Although the wound length was only 5cm, the underlying large melvin-articular hip wound cavity was far greater in size but impossible to measure. The wound was irrigated with normal saline solution. All soft tissues and hardware were and mechanically debrided using multiple sponges with betadine soap. The wound was then irrigated with 3L normal saline solution. The wound was filled with 50% normal saline and 50% betadine solution. The wound was soaked in dilution betadine solution for 3 minutes. The wound was then irrigated with another 3L normal saline solution. Closure: With hemostasis was assured, a complex wound closure was performed using #1 PDS monofilament sutures in [place] sepsis suture technique. The skin was then cleaned, dried, and painted with DuraPrep. A compressive dressing was applied using 4x4 gauze pads. The wound was then sealed with adhesive Ioban. Sponge and needle counts were correct at the end of the case, and I, the attending surgeon, was present and scrubbed throughout the case. The patient was then transferred to a supine position on a hospital bed. The patient was then extubated by the anesthesia staff without incident or complications and was then transferred to the recovery room in stable condition having tolerated the procedure well. Gelacio Moya M.D. [id number] MTDCharisma
[2019-09-16] MEDS: ASPIRIN 81 MG CHEWABLE TABLETS PO SCH ×2 (09:57→21:52)
[2019-09-16] MEDS: SENNOSIDES 8.6MG TABLET (FP) PO SCH ×2 (09:57→21:52)
[2019-09-16] MEDS: oxyCODONE HCL 80 MG SUSTAINED ACTING TABLET PO SCH ×2 (09:57→21:53)
[2019-09-16] MEDS: amLODIPine BESYLATE 5 MG TABLET (FP) PO SCH (09:57)
[2019-09-16] MEDS: PANTOPRAZOLE 40 MG TABLET (FP) PO SCH (09:57)
[2019-09-16] MEDS: DULoxetine HCL 30 MG CAPSULE.DR PO SCH ×2 (09:57→21:53)
[2019-09-16] MEDS: POLYETHYLENE GLYCOL 3350 119 GM BTL PO SCH (10:00)
--- NOTE | 2019-09-16 11:34 | PN ---
Progress Note, Physician History of Present Illness: events noted stable - Current Medication List Current Medications: Active Medications Al Hydroxide/Mg Hydroxide (Mylanta Oral Suspension -) 30 ml PO Q4H PRN PRN Reason: DYSPEPSIA Amlodipine Besylate (Norvasc -) 5 mg PO DAILY [facility] Last Admin: 09/16/19 09:57 Dose: 5 mg Aspirin (Asa -) 81 mg PO BID [facility] Last Admin: 09/16/19 09:57 Dose: 81 mg Duloxetine HCl (Cymbalta -) 30 mg PO BID [facility] Last Admin: 09/16/19 09:57 Dose: 30 mg Fentanyl (Sublimaze Injection -) 50 mcg IVPUSH Q5M PRN PRN Reason: PAIN-PACU ORDER X 4 DOSES ONLY Ampicillin Sodium/Sulbactam (Sodium 3 gm/ Sodium Chloride) 100 mls @ 200 mls/ hr IVPB Q8H-IV [facility] Last Admin: 09/16/19 10:00 Dose: 200 mls/hr Magnesium Hydroxide (Milk Of Magnesia -) 30 ml PO PRN PRN PRN Reason: CONSTIPATION Nicotine (Nicoderm Patch -) 7 mg TD DAILY [facility] Last Admin: 09/15/19 10:17 Dose: Not Given Ondansetron HCl (Zofran Injection) 4 mg IVPUSH Q6H PRN PRN Reason: NAUSEA Oxybutynin Chloride (Ditropan -) 5 mg PO TID [facility] Last Admin: 09/16/19 06:01 Dose: 5 mg Oxycodone HCl (Roxicodone -) 30 mg PO Q4H PRN PRN Reason: PAIN LEVEL 7 - 10 Last Admin: 09/16/19 08:36 Dose: 30 mg Oxycodone HCl (Oxycontin -) 80 mg PO BID [facility] Last Admin: 09/16/19 09:57 Dose: 80 mg Pantoprazole Sodium (Protonix -) 40 mg PO DAILY [facility] Last Admin: 09/16/19 09:57 Dose: 40 mg Polyethylene Glycol (Miralax (For Daily Use) -) 17 gm PO DAILY [facility] Last Admin: 09/16/19 10:00 Dose: 17 grams Pregabalin (Lyrica -) 100 mg PO TID [facility] Last Admin: 09/16/19 06:01 Dose: 100 mg Senna (Senna -) 1 tab PO BID [facility] Last Admin: 09/16/19 09:57 Dose: 1 tab - Objective Vital Signs: Vital Signs Temperature 97.8 F 09/16/19 08:48 Pulse Rate 87 09/16/19 08:48 Respiratory Rate 20 09/16/19 08:48 Blood Pressure 132/73 09/16/19 08:48 O2 Sat by Pulse Oximetry (%) 98 09/16/19 08:48 Constitutional: Yes: No Distress, Calm Cardiovascular: Yes: S1, S2 Respiratory: Yes: Regular, CTA Bilaterally Gastrointestinal: Yes: Normal Bowel Sounds, Soft Musculoskeletal: Yes: WNL Extremities: Yes: Other Neurological: Yes: Alert, Oriented Psychiatric: Yes: Alert, Oriented Labs: CBC, BMP 09/14/19 14:40 09/16/19 06:00 Assessment/Plan Problem List - Problems (1) Anemia Code(s): D64.9 - ANEMIA, UNSPECIFIED (2) Chronic pain Code(s): G89.29 - OTHER CHRONIC PAIN (3) Depression Code(s): F32.9 - MAJOR DEPRESSIVE DISORDER, SINGLE EPISODE, UNSPECIFIED (4) HTN (hypertension) Code(s): I10 - ESSENTIAL (PRIMARY) HYPERTENSION (5) Infection of lower extremity associated with hardware Code(s): T84.7XXA - INFECT/INFLM REACT DUE TO OTH INT ORTH PROSTH DEV/GRFT, INIT (6) Wound, open, hip or thigh Code(s): BXN8705 - Assessment/Plan 64 y/o F with hx L total hip arthroplasty s/p washout and wound vac, multiple drug resistant bacteria (most recently, 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 cx results noted continue abx wound care rest as per the team
[2019-09-16 11:44] LABS: BASO % 0.6 % (0-2.0); EOS % 7.4 % (0-4.5); HEMATOCRIT 31.4 % (32.4-45.2); HEMOGLOBIN 9.9 GM/dL (10.7-15.3); MCH 23.5 pg (25.7-33.7); MCHC 31.4 g/dl (32.0-36.0); MEAN PLT VOLUME 7.6 fl (7.5-11.1); MONO % 7.7 % (3.8-10.2); NEUT % 68.3 % (42.8-82.8); PLATELET COUNT 321 K/MM3 (134-434); RBC 4.19 M/mm3 (3.60-5.2); RDW 20.2 % (11.6-15.6); WHITE BLOOD COUNT 8.5 K/mm3 (4.0-10.0)
[2019-09-16] MEDS: NICOTINE 7 MG/24 HOURS TOPICAL PATCH TD SCH (11:46)
--- NOTE | 2019-09-16 12:33 | PN ---
Progress Note (short form) - Note Progress Note: Hospitalist Medicine For repeat washout tomorrow per nursing and pt Vitals 09/16/19 08:48 Temperature 97.8 F Pulse Rate 87 Respiratory 20 Rate Blood Pressure 132/73 Physical Exam GENERAL: Sitting on bed, in NAD HEAD: Normal with no signs of trauma. LUNGS: CTA b/l . no accessory m usage HEART: Regular rate and rhythm, S1, S2 without murmur, rub or gallop. ABDOMEN: Soft, nontender, nondistended, normoactive bowel sounds. EXTREMITIES: 2+ pulses, warm, well-perfused, no edema. +L hip w/ dressing, c/d/i SKIN: Warm, dry, normal turgor, no rashes or lesions noted Laboratory Tests 09/14/19 09/16/19 09/16/19 14:40 06:00 07:25 WBC Hgb Hct Plt Count ESR 74 H 55 H Sodium 141 Potassium 3.9 Chloride 109 H Carbon Dioxide 26 Anion Gap 6 L BUN 13.7 Creatinine 0.9 Magnesium 2.1 09/16/19 07:25 WBC 8.5 Hgb 9.9 L Hct 31.4 L Plt Count 321 ESR Sodium Potassium Chloride Carbon Dioxide Anion Gap BUN Creatinine Magnesium Microbiology 09/09/19 11:20 Hip - Left Gram Stain - Final 09/09/19 11:20 Hip - Left Wound Culture - Final Enterococcus Faecalis 09/09/19 11:20 Hip - Left Gram Stain - Final 09/09/19 11:20 Hip - Left Wound Culture - Final Enterococcus Faecalis 09/09/19 11:20 Hip - Left Gram Stain - Final 09/09/19 11:20 Hip - Left Wound Culture - Final Enterococcus Faecalis 09/04/19 18:00 Hip - Left Gram Stain - Final 09/04/19 18:00 Hip - Left Wound Culture - Final NO GROWTH OF AEROBIC ORGANISMS AFTER 48 HOURS INCUBATION ASSESSMENT/PLAN: 64 y/o F with hx L total hip arthroplasty s/p washout and wound vac, multiple drug resistant bacteria (most recently, 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 Pt seen this AM. Pt is to return to the OR per sx on 09/09/19, for I&D L hip and delayed primary closure. #s/p repeat I&D L hip wound (09/04, 09/09) -for repeat washout tomorrow per nurse and pt -Pain control: on cymbalta, roxicodone q4h PRN per sx , oxycontin per sx -Pt also on lyrica -DVT PPx: -Chemical: ASA 81mg PO BID -Mechanical: SOUTH's, SCD's. -wound cx (+) e. faecalis, sens to amp ; on unasyn (09/10) -Incentive spirometry q15 min. -PT/OT/Rehab, OOB. -WBAT RLE; NWB LLE. #HTN -on norvasc 5mg qd #Constipation -c/w senna, colace #Smoking cessation -on nicotine patch (refusing) #F/E/N off IVF continue to follow lytes reg diet #PPX DVT: mechanical SCD's; on asa BID per sx GI: protonix #Dispo monitoring on med-surg all recs per sx <Cynthia Farah - Last Filed: 09/16/19 15:10> - Note Progress Note: OR on monday again for repeat washout per ortho. Discussed with ID. Patient was averse to discussion Couldnt' complete ROS Declined exam; was upset at the course of care with multiple procedures. Problems include: -Postoperative wound infection with current dehissence; anticipating that she will require additional washout (+ EF cultures; abx fpc IV vs. PO will d/ w ID regarding course and of course final management per ortho; abx per culture results as per team. ESR/CRP to be trended, monitor for clinical decompensation with respect to sepsis.) -Chronic Pain (Pain management per orthopedics; monitor for neuropathic symptoms and can titrate neuroleptics as needed) -Tobacco Abuse (Continue NRT; she has no complaints now regarding cravings. [employer] prior to DC) -Chronic Opioid-induced Constipation (Continue current regimine, consider novel agent if continual issues postop) -Obesity ([employer] prior to DC; hindrance to wound healing) DC planning is pending further surgical procedures, microbio, pain control, and determination of final abx course. Full Code <Andrew Dover - Last Filed: 09/18/19 06:41>
[2019-09-17] MEDS ORDERED: PT OWN MED DRAWER 7, Y5N ONE ×3 (01:08→18:27)
[2019-09-17] MEDS: AMPICILLIN NA/SULBACTAM NA 3 GM in SODIUM CHLORIDE 100 ML IVPB SCH ×3 (01:46→18:31)
[2019-09-17] MEDS: oxyCODONE HCL 5 MG TABLET PO PRN ×5 (03:09→23:52)
[2019-09-17] MEDS: PREGABALIN 100 MG CAPSULE PO SCH ×3 (05:10→22:43)
[2019-09-17] MEDS: OXYBUTYNIN CHLORIDE 5 MG TABLET PO SCH ×3 (05:10→22:44)
[2019-09-17 08:07] LABS: BASO % 0.9 % (0-2.0); EOS % 7.2 % (0-4.5); HEMATOCRIT 32.2 % (32.4-45.2); HEMOGLOBIN 10.5 GM/dL (10.7-15.3); LYMPH % 15.7 % (8-40); MCH 24.1 pg (25.7-33.7); MCHC 32.7 g/dl (32.0-36.0); MEAN CELL VOLUME 73.6 fl (80-96); MEAN PLT VOLUME 7.3 fl (7.5-11.1); MONO % 6.8 % (3.8-10.2); NEUT % 69.4 % (42.8-82.8); PLATELET COUNT 341 K/MM3 (134-434); RBC 4.38 M/mm3 (3.60-5.2); RDW 20.5 % (11.6-15.6); WHITE BLOOD COUNT 9.1 K/mm3 (4.0-10.0)
[2019-09-17 08:35] LABS: BLOOD UREA NITROGEN 14.2 mg/dL (7-18); CALCIUM 8.9 mg/dL (8.5-10.1); CREATININE 0.8 mg/dL (0.55-1.3); MAGNESIUM 2.2 mg/dL (1.8-2.4); PHOSPHOROUS 3.8 mg/dL (2.5-4.9); POTASSIUM 4.1 mmol/L (3.5-5.1)
[2019-09-17] MEDS: DULoxetine HCL 30 MG CAPSULE.DR PO SCH ×2 (11:03→22:43)
[2019-09-17] MEDS: SENNOSIDES 8.6MG TABLET (FP) PO SCH ×2 (11:03→22:43)
[2019-09-17] MEDS: amLODIPine BESYLATE 5 MG TABLET (FP) PO SCH (11:03)
[2019-09-17] MEDS: ASPIRIN 81 MG CHEWABLE TABLETS PO SCH ×2 (11:03→22:43)
[2019-09-17] MEDS: oxyCODONE HCL 80 MG SUSTAINED ACTING TABLET PO SCH ×2 (11:03→22:44)
[2019-09-17] MEDS: PANTOPRAZOLE 40 MG TABLET (FP) PO SCH (11:03)
[2019-09-17] MEDS: POLYETHYLENE GLYCOL 3350 119 GM BTL PO SCH (11:04)
[2019-09-17] MEDS: NICOTINE 7 MG/24 HOURS TOPICAL PATCH TD SCH (11:04)
[2019-09-17 11:39] LABS: ANISOCYTOSIS 1+; MACROCYTOSIS 0; PLATELET ESTIMATE NORMAL
--- NOTE | 2019-09-17 13:30 | PN ---
Progress Note, Physician History of Present Illness: stable patient for surgery today - Current Medication List Current Medications: Active Medications Al Hydroxide/Mg Hydroxide (Mylanta Oral Suspension -) 30 ml PO Q4H PRN PRN Reason: DYSPEPSIA Amlodipine Besylate (Norvasc -) 5 mg PO DAILY [facility] Last Admin: 09/17/19 11:03 Dose: 5 mg Aspirin (Asa -) 81 mg PO BID [facility] Last Admin: 09/17/19 11:03 Dose: 81 mg Duloxetine HCl (Cymbalta -) 30 mg PO BID [facility] Last Admin: 09/17/19 11:03 Dose: 30 mg Fentanyl (Sublimaze Injection -) 50 mcg IVPUSH Q5M PRN PRN Reason: PAIN-PACU ORDER X 4 DOSES ONLY Ampicillin Sodium/Sulbactam (Sodium 3 gm/ Sodium Chloride) 100 mls @ 200 mls/ hr IVPB Q8H-IV [facility] Last Admin: 09/17/19 11:08 Dose: 200 mls/hr Magnesium Hydroxide (Milk Of Magnesia -) 30 ml PO PRN PRN PRN Reason: CONSTIPATION Nicotine (Nicoderm Patch -) 7 mg TD DAILY [facility] Last Admin: 09/17/19 11:04 Dose: Not Given Ondansetron HCl (Zofran Injection) 4 mg IVPUSH Q6H PRN PRN Reason: NAUSEA Oxybutynin Chloride (Ditropan -) 5 mg PO TID [facility] Last Admin: 09/17/19 05:10 Dose: 5 mg Oxycodone HCl (Roxicodone -) 30 mg PO Q4H PRN PRN Reason: PAIN LEVEL 7 - 10 Last Admin: 09/17/19 12:31 Dose: 30 mg Oxycodone HCl (Oxycontin -) 80 mg PO BID [facility] Last Admin: 09/17/19 11:03 Dose: 80 mg Pantoprazole Sodium (Protonix -) 40 mg PO DAILY [facility] Last Admin: 09/17/19 11:03 Dose: 40 mg Polyethylene Glycol (Miralax (For Daily Use) -) 17 gm PO DAILY [facility] Last Admin: 09/17/19 11:04 Dose: Not Given Pregabalin (Lyrica -) 100 mg PO TID [facility] Last Admin: 09/17/19 05:10 Dose: 100 mg Senna (Senna -) 1 tab PO BID [facility] Last Admin: 09/17/19 11:03 Dose: 1 tab - Objective Vital Signs: Vital Signs Temperature 98.6 F 09/17/19 05:00 Pulse Rate 92 H 09/17/19 05:00 Respiratory Rate 20 09/17/19 05:00 Blood Pressure 154/92 09/17/19 05:00 O2 Sat by Pulse Oximetry (%) 98 09/16/19 08:48 Constitutional: Yes: No Distress, Calm Cardiovascular: Yes: S1, S2 Respiratory: Yes: Regular, CTA Bilaterally Gastrointestinal: Yes: Normal Bowel Sounds, Soft Musculoskeletal: Yes: WNL Extremities: Yes: Other Wound/Incision: Yes: Dressing Dry and Intact Neurological: Yes: Alert, Oriented Psychiatric: Yes: Alert, Oriented Labs: CBC, BMP 09/17/19 07:00 09/17/19 07:00 Assessment/Plan Problem List - Problems (1) Anemia Code(s): D64.9 - ANEMIA, UNSPECIFIED (2) Chronic pain Code(s): G89.29 - OTHER CHRONIC PAIN (3) Depression Code(s): F32.9 - MAJOR DEPRESSIVE DISORDER, SINGLE EPISODE, UNSPECIFIED (4) HTN (hypertension) Code(s): I10 - ESSENTIAL (PRIMARY) HYPERTENSION (5) Infection of lower extremity associated with hardware Code(s): T84.7XXA - INFECT/INFLM REACT DUE TO OTH INT ORTH PROSTH DEV/GRFT, INIT (6) Wound, open, hip or thigh Code(s): [id number] - Assessment/Plan 64 y/o F with hx L total hip arthroplasty s/p washout and wound vac, multiple drug resistant bacteria (most recently, 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 cx results noted continue abx wound care rest as per the team for surgery today
[2019-09-17] MEDS ORDERED: PROPOFOL 20 ML ONE (15:00)
[2019-09-17] MEDS ORDERED: MIDAZOLAM HCL 2 MG/2 ML SINGLE DOSE VIAL ONE (15:01)
[2019-09-17] MEDS ORDERED: ceFAZolin SODIUM 1 GM VIAL IVPB ONE (16:07)
--- NOTE | 2019-09-17 16:32 | PN ---
Progress Note (short form) - Note Progress Note: Patient being taken back to the OR due to inadvertant removal of drain for repeat Iand Delayed primary closure and use of a VAC to facilitate drainage and angiogenesis
--- NOTE | 2019-09-17 16:34 | OP ---
Operative Note - Note: Operative Date: 09/17/19 Pre-Operative Diagnosis: Infacted LEFT THIGH WOUND Operation: Iand D delayed primary closure Surgeon: Albert Moya Anesthesia: General Estimated Blood Loss (mls): 0 Instrument used (Debridements only): Superficial wound vac Operative Report Dictated: Yes
--- NOTE | 2019-09-17 16:46 | PN ---
Progress Note (short form) - Note Progress Note: Hospitalist Medicine For : removal of drain, repeat I&D, delayed primary closure and VAC this afternoon Vitals 09/17/19 09:00 Temperature 98.6 F Pulse Rate 94 H Respiratory 20 Rate Blood Pressure 154/90 Physical Exam GENERAL: Sitting on bed, in NAD HEAD: Normal with no signs of trauma. LUNGS: CTA b/l . no accessory m usage HEART: Regular rate and rhythm, S1, S2 without murmur, rub or gallop. ABDOMEN: Soft, nontender, nondistended, normoactive bowel sounds. EXTREMITIES: 2+ pulses, warm, well-perfused, no edema. +L hip w/ dressing, c/d/i SKIN: Warm, dry, normal turgor, no rashes or lesions noted Laboratory Tests 09/17/19 09/17/19 07:00 07:00 WBC 9.1 Hgb 10.5 L Hct 32.2 L Plt Count 341 Sodium 139 Potassium 4.1 Chloride 106 Carbon Dioxide 27 Anion Gap 6 L BUN 14.2 Creatinine 0.8 Random Glucose 87 Microbiology 09/09/19 11:20 Hip - Left Gram Stain - Final 09/09/19 11:20 Hip - Left Wound Culture - Final Enterococcus Faecalis 09/09/19 11:20 Hip - Left Gram Stain - Final 09/09/19 11:20 Hip - Left Wound Culture - Final Enterococcus Faecalis 09/09/19 11:20 Hip - Left Gram Stain - Final 09/09/19 11:20 Hip - Left Wound Culture - Final Enterococcus Faecalis 09/04/19 18:00 Hip - Left Gram Stain - Final 09/04/19 18:00 Hip - Left Wound Culture - Final NO GROWTH OF AEROBIC ORGANISMS AFTER 48 HOURS INCUBATION ASSESSMENT/PLAN: 64 y/o F with hx L total hip arthroplasty s/p washout and wound vac, multiple drug resistant bacteria (most recently, 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 Pt seen this AM. Pt is to return to the OR per sx on 09/09/19, for I&D L hip and delayed primary closure. #s/p repeat I&D L hip wound (09/04, 09/09) -for removal of drain, repeat I&D, delayed primary closure and VAC this afternoon -Pain control: on cymbalta, roxicodone q4h PRN per sx , oxycontin per sx -Pt also on lyrica -DVT PPx: -Chemical: ASA 81mg PO BID -Mechanical: SOUTH's, SCD's. -wound cx (+) e. faecalis, sens to amp ; on unasyn (09/10) -Incentive spirometry q15 min. -PT/OT/Rehab, OOB. -WBAT RLE; NWB LLE. #HTN -on norvasc 5mg qd #Constipation -c/w senna, colace #Smoking cessation -on nicotine patch (refusing) #F/E/N off IVF continue to follow lytes reg diet #PPX DVT: mechanical SCD's; on asa BID per sx GI: protonix #Dispo monitoring on med-surg all recs per sx <Cynthia Farah - Last Filed: 09/17/19 16:41> - Note Progress Note: Seen and examined; please refer to resident note for further historical information. I agree with the aforementioned assessment and plan and historical information aside from as supplemented by myself. Independently verified all bolton exam findings and diagnostics. I discussed the case at length with the resident and agree with the plan as outlined. Doing well postoperatively; sleepy with no further complaints 10 sys ROS done and negative aside from HPI VS labs imaging reviewed NAD AAO resting in bed NC AT EOMI PERRLA HR wnl, +s1/2 NT ND +BS CN2-12 wnl, no fnd Postoperatively dressing is c/d/i with wound vac applied and no bleed. As dressing not applied, dressing not removed. Problems include: -Postoperative wound infection with current dehissence; anticipating that she will require additional washout (+ EF cultures; abx mcc IV vs. PO will d/ w ID regarding course and of course final management per ortho; abx per culture results as per team. ESR/CRP to be trended, monitor for clinical decompensation with respect to sepsis.) -Chronic Pain (Pain management per orthopedics; monitor for neuropathic symptoms and can titrate neuroleptics as needed) -Tobacco Abuse (Continue NRT; she has no complaints now regarding cravings. [employer] prior to DC) -Chronic Opioid-induced Constipation (Continue current regimine, consider novel agent if continual issues postop) -Obesity (Door [employer] prior to DC; hindrance to wound healing) DC planning is pending further surgical procedures, microbio, pain control, and determination of final abx course. Full Code <Andrew Dover - Last Filed: 09/18/19 06:45>
--- NOTE | 2019-09-17 16:52 | OP ---
DATE OF OPERATION: DATE OF DICTATION: 09/17/2019 PREOPERATIVE DIAGNOSIS: Failed drainage of left proximolateral thigh wound with extensive drainage, foul smelling. Anerobic bacteria noted. POSTOPERATIVE DIAGNOSIS: Failed drainage of left proximolateral thigh wound with extensive drainage, foul smelling. Anerobic bacteria noted. OPERATIONS PERFORMED: 1. Removal of sutures. 2. Extensive irrigation and debridement. ([id number]) 3. Cleansing of tissues with Betadine and 3-L saline washout. 4. Delayed complex primary closure with vertical mattress sutures, 10cm. ( [id number] x 2). 5. Application of a superficial wound VAC for suction drainage. ANESTHESIA: General. DESCRIPTION OF PROCEDURE: Patient correctly identified. Brought to the operating room,. Left lateral position, that is the left side up. The left lower extremity was window draped. Sterile conditions utilized with Betadine scrub solution, wiped off with alcohol, and DuraPrep applied. The wound was opened. It was a 4-cm opening but leads to a deep cavity estimating the length of 6 cm long, 2 cm wide, and approximately 3-4 cm deep. The wounds were thoroughly lavaged. Betadine scrub utilized to remove biofilm. This was washed. All the tissues cleansed out appropriately. The wounds were thoroughly lavaged again with saline and 1/2 strength Betadine solution with saline was instilled into the wound. Left there for 3 minutes then repeat washout performed with saline. Tissues appeared completely clean. Vertical mattress with No. 1 PDS suture were utilized to approximate the skin on top of this as there was facilitated drainage. A wound VAC was placed superficially over this to facilitate drainage. This was sealed. The wound VAC was working well by the time the patient was extricated from the operating room. MD OSVALDO Oconnor/[id number] MTDCharisma
[2019-09-18] MEDS ORDERED: PT OWN MED DRAWER 7, Y5N ONE ×5 (01:50→19:11)
[2019-09-18] MEDS: AMPICILLIN NA/SULBACTAM NA 3 GM in SODIUM CHLORIDE 100 ML IVPB SCH ×3 (02:08→19:27)
[2019-09-18] MEDS: oxyCODONE HCL 5 MG TABLET PO PRN ×4 (04:37→22:10)
[2019-09-18] MEDS: PREGABALIN 100 MG CAPSULE PO SCH ×3 (07:30→21:48)
[2019-09-18] MEDS: OXYBUTYNIN CHLORIDE 5 MG TABLET PO SCH ×3 (07:30→21:48)
[2019-09-18 08:05] LABS: BASO % 0.4 % (0-2.0); EOS % 0.2 % (0-4.5); HEMATOCRIT 31.6 % (32.4-45.2); HEMOGLOBIN 10.1 GM/dL (10.7-15.3); LYMPH % 9.3 % (8-40); MCH 23.7 pg (25.7-33.7); MEAN CELL VOLUME 74.1 fl (80-96); MONO % 4.8 % (3.8-10.2); NEUT % 85.3 % (42.8-82.8); PLATELET COUNT 396 K/MM3 (134-434); RBC 4.27 M/mm3 (3.60-5.2); RDW 19.8 % (11.6-15.6); WHITE BLOOD COUNT 12.6 K/mm3 (4.0-10.0)
[2019-09-18 08:37] LABS: BLOOD UREA NITROGEN 13.6 mg/dL (7-18); CALCIUM 9.1 mg/dL (8.5-10.1); CREATININE 0.9 mg/dL (0.55-1.3); POTASSIUM 4.3 mmol/L (3.5-5.1)
[2019-09-18] MEDS: PANTOPRAZOLE 40 MG TABLET (FP) PO SCH (10:34)
[2019-09-18] MEDS: DULoxetine HCL 30 MG CAPSULE.DR PO SCH ×2 (10:34→21:50)
[2019-09-18] MEDS: amLODIPine BESYLATE 5 MG TABLET (FP) PO SCH (10:34)
[2019-09-18] MEDS: SENNOSIDES 8.6MG TABLET (FP) PO SCH ×2 (10:35→21:48)
[2019-09-18] MEDS: ASPIRIN 81 MG CHEWABLE TABLETS PO SCH ×2 (10:35→21:48)
[2019-09-18] MEDS: oxyCODONE HCL 80 MG SUSTAINED ACTING TABLET PO SCH ×2 (10:35→22:06)
[2019-09-18] MEDS: NICOTINE 7 MG/24 HOURS TOPICAL PATCH TD SCH (10:37)
[2019-09-18] MEDS: POLYETHYLENE GLYCOL 3350 119 GM BTL PO SCH (10:41)
--- NOTE | 2019-09-18 13:09 | PN ---
Progress Note, Physician History of Present Illness: patient stable no new issues - Current Medication List Current Medications: Active Medications Al Hydroxide/Mg Hydroxide (Mylanta Oral Suspension -) 30 ml PO Q4H PRN PRN Reason: DYSPEPSIA Amlodipine Besylate (Norvasc -) 5 mg PO DAILY [facility] Last Admin: 09/18/19 10:34 Dose: 5 mg Aspirin (Asa -) 81 mg PO BID [facility] Last Admin: 09/18/19 10:35 Dose: 81 mg Duloxetine HCl (Cymbalta -) 30 mg PO BID [facility] Last Admin: 09/18/19 10:34 Dose: 30 mg Fentanyl (Sublimaze Injection -) 50 mcg IVPUSH Q5M PRN PRN Reason: PAIN-PACU ORDER X 4 DOSES ONLY Ampicillin Sodium/Sulbactam (Sodium 3 gm/ Sodium Chloride) 100 mls @ 200 mls/ hr IVPB Q8H-IV [facility] Last Admin: 09/18/19 02:08 Dose: 200 mls/hr Magnesium Hydroxide (Milk Of Magnesia -) 30 ml PO PRN PRN PRN Reason: CONSTIPATION Nicotine (Nicoderm Patch -) 7 mg TD DAILY [facility] Last Admin: 09/18/19 10:37 Dose: Not Given Ondansetron HCl (Zofran Injection) 4 mg IVPUSH Q6H PRN PRN Reason: NAUSEA Oxybutynin Chloride (Ditropan -) 5 mg PO TID [facility] Last Admin: 09/18/19 07:30 Dose: 5 mg Oxycodone HCl (Roxicodone -) 30 mg PO Q4H PRN PRN Reason: PAIN LEVEL 7 - 10 Last Admin: 09/18/19 09:15 Dose: 30 mg Oxycodone HCl (Oxycontin -) 80 mg PO BID [facility] Last Admin: 09/18/19 10:35 Dose: 80 mg Pantoprazole Sodium (Protonix -) 40 mg PO DAILY [facility] Last Admin: 09/18/19 10:34 Dose: 40 mg Polyethylene Glycol (Miralax (For Daily Use) -) 17 gm PO DAILY [facility] Last Admin: 09/18/19 10:41 Dose: 17 grams Pregabalin (Lyrica -) 100 mg PO TID [facility] Last Admin: 09/18/19 07:30 Dose: 100 mg Senna (Senna -) 1 tab PO BID [facility] Last Admin: 09/18/19 10:35 Dose: 1 tab - Objective Vital Signs: Vital Signs Temperature 98.4 F 09/18/19 07:00 Pulse Rate 98 H 09/18/19 07:00 Respiratory Rate 09/18/19 07:00 Blood Pressure 150/76 09/18/19 07:00 O2 Sat by Pulse Oximetry (%) 98 09/17/19 18:05 Constitutional: Yes: No Distress, Calm Cardiovascular: Yes: S1, S2 Respiratory: Yes: Regular, CTA Bilaterally Gastrointestinal: Yes: Normal Bowel Sounds, Soft Musculoskeletal: Yes: WNL Extremities: Yes: Other Wound/Incision: Yes: Dressing Dry and Intact Neurological: Yes: Alert, Oriented Psychiatric: Yes: Alert, Oriented Labs: CBC, BMP 09/18/19 07:45 09/18/19 07:45 Assessment/Plan Problem List - Problems (1) Anemia Code(s): D64.9 - ANEMIA, UNSPECIFIED (2) Chronic pain Code(s): G89.29 - OTHER CHRONIC PAIN (3) Depression Code(s): F32.9 - MAJOR DEPRESSIVE DISORDER, SINGLE EPISODE, UNSPECIFIED (4) HTN (hypertension) Code(s): I10 - ESSENTIAL (PRIMARY) HYPERTENSION (5) Infection of lower extremity associated with hardware Code(s): T84.7XXA - INFECT/INFLM REACT DUE TO OTH INT ORTH PROSTH DEV/GRFT, INIT (6) Wound, open, hip or thigh Code(s): [id number] - Assessment/Plan 64 y/o F with hx L total hip arthroplasty s/p washout and wound vac, multiple drug resistant bacteria (most recently, 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 await for repeat cx close watch rest as per the team
--- NOTE | 2019-09-18 13:52 | PN ---
Progress Note (short form) - Note Progress Note: Patient is afebrile she had repeat I&D done the cultures are still pending. Seen by infectious disease no new change has been ordered by infectious disease physicians. She denies any fever chills nausea vomiting rest of the review of systems are normal Vital signs Vital Signs Period Temp Pulse Resp BP Sys/Vargas Pulse Ox Last 24 Hr 97.4 F-98.4 F 87-100 10-20 126-162/69-90 96-100 Physical examination GENERAL: Sitting on bed, in NAD HEAD: Normal with no signs of trauma. LUNGS: CTA b/l . no accessory m usage HEART: Regular rate and rhythm, S1, S2 without murmur, rub or gallop. ABDOMEN: Soft, nontender, nondistended, normoactive bowel sounds. EXTREMITIES: 2+ pulses, warm, well-perfused, no edema. +L hip w/ dressing, she has drain in place to suction suction machine. SKIN: Warm, dry, normal turgor, no rashes or lesions noted CBC, BMP 09/18/19 07:45 09/18/19 07:45 Microbiology results 09/09/19 11:20 Hip - Left Gram Stain - Final 09/09/19 11:20 Hip - Left Wound Culture - Final Enterococcus Faecalis 09/09/19 11:20 Hip - Left Gram Stain - Final 09/09/19 11:20 Hip - Left Wound Culture - Final Enterococcus Faecalis 09/09/19 11:20 Hip - Left Gram Stain - Final 09/09/19 11:20 Hip - Left Wound Culture - Final Enterococcus Faecalis 09/04/19 18:00 Hip - Left Gram Stain - Final 09/04/19 18:00 Hip - Left Wound Culture - Final NO GROWTH OF AEROBIC ORGANISMS AFTER 48 HOURS INCUBATION Assessment and plan 64 y/o F with hx L total hip arthroplasty s/p washout and wound vac, multiple drug resistant bacteria (most recently, 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 Rest of her problems which are hypertension chronic constipation they are stable History of lupus which is in remission Continue following medications as below Current Medications Al Hydroxide/Mg Hydroxide (Mylanta Oral Suspension -) 30 ml PO Q4H PRN PRN Reason: DYSPEPSIA Amlodipine Besylate (Norvasc -) 5 mg PO DAILY [facility] Last Admin: 09/18/19 10:34 Dose: 5 mg Aspirin (Asa -) 81 mg PO BID [facility] Last Admin: 09/18/19 10:35 Dose: 81 mg Duloxetine HCl (Cymbalta -) 30 mg PO BID [facility] Last Admin: 09/18/19 10:34 Dose: 30 mg Fentanyl (Sublimaze Injection -) 50 mcg IVPUSH Q5M PRN PRN Reason: PAIN-PACU ORDER X 4 DOSES ONLY Ampicillin Sodium/Sulbactam (Sodium 3 gm/ Sodium Chloride) 100 mls @ 200 mls/ hr IVPB Q8H-IV [facility] Last Admin: 09/18/19 11:00 Dose: 200 mls/hr Magnesium Hydroxide (Milk Of Magnesia -) 30 ml PO PRN PRN PRN Reason: CONSTIPATION Nicotine (Nicoderm Patch -) 7 mg TD DAILY [facility] Last Admin: 09/18/19 10:37 Dose: Not Given Ondansetron HCl (Zofran Injection) 4 mg IVPUSH Q6H PRN PRN Reason: NAUSEA Oxybutynin Chloride (Ditropan -) 5 mg PO TID [facility] Last Admin: 09/18/19 07:30 Dose: 5 mg Oxycodone HCl (Roxicodone -) 30 mg PO Q4H PRN PRN Reason: PAIN LEVEL 7 - 10 Last Admin: 09/18/19 09:15 Dose: 30 mg Oxycodone HCl (Oxycontin -) 80 mg PO BID [facility] Last Admin: 09/18/19 10:35 Dose: 80 mg Pantoprazole Sodium (Protonix -) 40 mg PO DAILY [facility] Last Admin: 09/18/19 10:34 Dose: 40 mg Polyethylene Glycol (Miralax (For Daily Use) -) 17 gm PO DAILY [facility] Last Admin: 09/18/19 10:41 Dose: 17 grams Pregabalin (Lyrica -) 100 mg PO TID [facility] Last Admin: 09/18/19 07:30 Dose: 100 mg Senna (Senna -) 1 tab PO BID [facility] Last Admin: 09/18/19 10:35 Dose: 1 tab Visit type - Emergency Visit Emergency Visit: Yes ED Registration Date: 09/04/19 Care time: The patient presented to the Emergency Department on the above date and was hospitalized for further evaluation of their emergent condition. - New Patient This patient is new to me today: Yes Date on this admission: 09/18/19 - Critical Care Critical Care patient: No - Discharge Referral Referred to [facility] Med P.C.: No
[2019-09-19] MEDS ORDERED: PT OWN MED DRAWER 7, Y5N ONE ×3 (00:18→18:47)
[2019-09-19] MEDS: AMPICILLIN NA/SULBACTAM NA 3 GM in SODIUM CHLORIDE 100 ML IVPB SCH ×3 (02:08→18:51)
[2019-09-19] MEDS: oxyCODONE HCL 5 MG TABLET PO PRN ×5 (02:17→23:16)
[2019-09-19] MEDS: OXYBUTYNIN CHLORIDE 5 MG TABLET PO SCH ×3 (06:23→22:18)
[2019-09-19] MEDS: PREGABALIN 100 MG CAPSULE PO SCH ×3 (06:23→22:18)
[2019-09-19] MEDS: NICOTINE 7 MG/24 HOURS TOPICAL PATCH TD SCH (09:09)
--- NOTE | 2019-09-19 09:17 | PN ---
Progress Note, Physician History of Present Illness: patient stable no new issues - Current Medication List Current Medications: Active Medications Al Hydroxide/Mg Hydroxide (Mylanta Oral Suspension -) 30 ml PO Q4H PRN PRN Reason: DYSPEPSIA Amlodipine Besylate (Norvasc -) 5 mg PO DAILY [facility] Last Admin: 09/18/19 10:34 Dose: 5 mg Aspirin (Asa -) 81 mg PO BID [facility] Last Admin: 09/18/19 21:48 Dose: 81 mg Duloxetine HCl (Cymbalta -) 30 mg PO BID [facility] Last Admin: 09/18/19 21:50 Dose: 30 mg Ampicillin Sodium/Sulbactam (Sodium 3 gm/ Sodium Chloride) 100 mls @ 200 mls/ hr IVPB Q8H-IV [facility] Last Admin: 09/19/19 02:08 Dose: 200 mls/hr Magnesium Hydroxide (Milk Of Magnesia -) 30 ml PO PRN PRN PRN Reason: CONSTIPATION Nicotine (Nicoderm Patch -) 7 mg TD DAILY [facility] Last Admin: 09/19/19 09:09 Dose: Not Given Ondansetron HCl (Zofran Injection) 4 mg IVPUSH Q6H PRN PRN Reason: NAUSEA Oxybutynin Chloride (Ditropan -) 5 mg PO TID [facility] Last Admin: 09/19/19 06:23 Dose: 5 mg Oxycodone HCl (Roxicodone -) 30 mg PO Q4H PRN PRN Reason: PAIN LEVEL 7 - 10 Last Admin: 09/19/19 02:17 Dose: 30 mg Oxycodone HCl (Oxycontin -) 80 mg PO BID [facility] Last Admin: 09/18/19 22:06 Dose: 80 mg Pantoprazole Sodium (Protonix -) 40 mg PO DAILY [facility] Last Admin: 09/18/19 10:34 Dose: 40 mg Polyethylene Glycol (Miralax (For Daily Use) -) 17 gm PO DAILY [facility] Last Admin: 09/18/19 10:41 Dose: 17 grams Pregabalin (Lyrica -) 100 mg PO TID [facility] Last Admin: 09/19/19 06:23 Dose: 100 mg Senna (Senna -) 1 tab PO BID [facility] Last Admin: 09/18/19 21:48 Dose: 1 tab - Objective Vital Signs: Vital Signs Temperature 97.8 F 09/19/19 07:08 Pulse Rate 90 09/19/19 07:08 Respiratory Rate 20 09/19/19 07:08 Blood Pressure 154/95 09/19/19 07:08 O2 Sat by Pulse Oximetry (%) 98 09/17/19 18:05 Constitutional: Yes: No Distress, Calm Respiratory: Yes: Regular, CTA Bilaterally Gastrointestinal: Yes: Normal Bowel Sounds, Soft Musculoskeletal: Yes: WNL Extremities: Yes: Other Wound/Incision: Yes: Dressing Dry and Intact, Other Psychiatric: Yes: Alert Labs: CBC, BMP 09/18/19 07:45 09/18/19 07:45 Assessment/Plan Problem List - Problems (1) Anemia Code(s): D64.9 - ANEMIA, UNSPECIFIED (2) Chronic pain Code(s): G89.29 - OTHER CHRONIC PAIN (3) Depression Code(s): F32.9 - MAJOR DEPRESSIVE DISORDER, SINGLE EPISODE, UNSPECIFIED (4) HTN (hypertension) Code(s): I10 - ESSENTIAL (PRIMARY) HYPERTENSION (5) Infection of lower extremity associated with hardware Code(s): T84.7XXA - INFECT/INFLM REACT DUE TO OTH INT ORTH PROSTH DEV/GRFT, INIT (6) Wound, open, hip or thigh Code(s): [id number] - Assessment/Plan 64 y/o F with hx L total hip arthroplasty s/p washout and wound vac, multiple drug resistant bacteria (most recently, 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 await for finalization of cx wound care
[2019-09-19] MEDS: POLYETHYLENE GLYCOL 3350 119 GM BTL PO SCH (09:19)
[2019-09-19] MEDS: DULoxetine HCL 30 MG CAPSULE.DR PO SCH ×2 (09:19→22:18)
[2019-09-19] MEDS: PANTOPRAZOLE 40 MG TABLET (FP) PO SCH (09:19)
[2019-09-19] MEDS: amLODIPine BESYLATE 5 MG TABLET (FP) PO SCH (09:19)
[2019-09-19] MEDS: ASPIRIN 81 MG CHEWABLE TABLETS PO SCH ×2 (09:19→22:16)
[2019-09-19] MEDS: SENNOSIDES 8.6MG TABLET (FP) PO SCH ×2 (09:28→22:18)
[2019-09-19] MEDS: oxyCODONE HCL 80 MG SUSTAINED ACTING TABLET PO SCH ×2 (10:56→22:17)
--- NOTE | 2019-09-19 11:06 | PATH ---
Surgical Pathology Report Patient Name: CONNOR SON Med. Rec. #: [id number] /Age/Gender: 1955 (Age: 64) / F Account: [id number] Location: [facility] MED/SURG Taken: 09/13/2019 Received: 09/16/2019 Reported: 09/19/2019 Physicians: Gelacio Moya M.D. Specimen(s) Received DEEP TISSUE LEFT HIP Clinical History Left hip infection, left hip mechanical loosening Final Diagnosis DEEP TISSUE LEFT HIP, EXCISION: BONE WITH REACTIVE AND REMODELING CHANGES. ADJACENT FIBROCONNECTIVE TISSUE WITH FIBRINOUS EXUDATE, SCATTERED ACUTE AND CHRONIC INFLAMMATORY CELL INFILTRATE, GRANULATION TISSUE FORMATION, AND OLD HEMORRHAGE (HEMOSIDERIN-LADEN MACROPHAGES). Electronically Signed Elaine Benítez M.D. Gross Description Received in formalin labeled "deep tissue left hip," is a 1.4 x 0.9 x 0.7 cm quarles portion of soft tissue. The specimen is serially sectioned and entirely submitted in one cassette. /09/16/2019 [facility]09/16/2019
--- NOTE | 2019-09-19 12:48 | PN ---
Teaching Attending Note Name of Resident: Cynthia Farah ATTENDING PHYSICIAN STATEMENT I saw and evaluated the patient. I reviewed the resident's note and discussed the case with the resident. I agree with the resident's findings and plan as documented. SUBJECTIVE: No new complaints OBJECTIVE: Vital Signs Temperature 97.8 F 09/19/19 07:08 Pulse Rate 90 09/19/19 07:08 Respiratory Rate 20 09/19/19 07:08 Blood Pressure 154/95 09/19/19 07:08 O2 Sat by Pulse Oximetry (%) 98 09/17/19 18:05 General: Elderly woman, sick looking not in distress HEENT; mucous membranes moist, mild anemia, no jaundice, PERRLA, no nystagmus Neck: No JVD, supple, no bruit, thyroid palpably normal, normal carotid pulsations. Chest: Nontender, clear to auscultation bilaterally/bilateral wheezing/ bilateral basal rales. CVS: S1-S2 regular/irregular no murmur/gallop/rub Abdomen: Nondistended, soft, bowel sounds present. 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 , no gross motor sensory deficit CBC, BMP 09/18/19 07:45 09/18/19 07:45 Active Medications Al Hydroxide/Mg Hydroxide (Mylanta Oral Suspension -) 30 ml PO Q4H PRN PRN Reason: DYSPEPSIA Amlodipine Besylate (Norvasc -) 5 mg PO DAILY [facility] Last Admin: 09/19/19 09:19 Dose: 5 mg Aspirin (Asa -) 81 mg PO BID [facility] Last Admin: 09/19/19 09:19 Dose: 81 mg Duloxetine HCl (Cymbalta -) 30 mg PO BID [facility] Last Admin: 09/19/19 09:19 Dose: 30 mg Ampicillin Sodium/Sulbactam (Sodium 3 gm/ Sodium Chloride) 100 mls @ 200 mls/ hr IVPB Q8H-IV [facility] Last Admin: 09/19/19 10:57 Dose: 200 mls/hr Magnesium Hydroxide (Milk Of Magnesia -) 30 ml PO PRN PRN PRN Reason: CONSTIPATION Nicotine (Nicoderm Patch -) 7 mg TD DAILY [facility] Last Admin: 09/19/19 09:09 Dose: Not Given Ondansetron HCl (Zofran Injection) 4 mg IVPUSH Q6H PRN PRN Reason: NAUSEA Oxybutynin Chloride (Ditropan -) 5 mg PO TID [facility] Last Admin: 09/19/19 06:23 Dose: 5 mg Oxycodone HCl (Roxicodone -) 30 mg PO Q4H PRN PRN Reason: PAIN LEVEL 7 - 10 Last Admin: 09/19/19 09:28 Dose: 30 mg Oxycodone HCl (Oxycontin -) 80 mg PO BID [facility] Last Admin: 09/19/19 10:56 Dose: 80 mg Pantoprazole Sodium (Protonix -) 40 mg PO DAILY [facility] Last Admin: 09/19/19 09:19 Dose: 40 mg Polyethylene Glycol (Miralax (For Daily Use) -) 17 gm PO DAILY [facility] Last Admin: 09/19/19 09:19 Dose: 17 grams Pregabalin (Lyrica -) 100 mg PO TID [facility] Last Admin: 09/19/19 06:23 Dose: 100 mg Senna (Senna -) 1 tab PO BID [facility] Last Admin: 09/19/19 09:28 Dose: 1 tab ASSESSMENT AND PLAN: 64 years old female, left hip THR complicated with infection, multiple hospitalization status post multiple was thought grew multiple recent anemia chronically nonhealing wound with osteomyelitis, SLE in remission, hypertension anxiety admitted on September 05, 2019 status post left hip wound VAC, actively managed and treated by orthopedics and ID. Patient remained afebrile on IV antibiotic hemodynamically stable Plan: Continue current management wound management and infection as per orthopedic/ID Problem List - Problems (1) Infection of lower extremity associated with hardware Assessment/Plan: Continue current antibiotic as per ID and wound was as per Ortho. Problems reviewed: Yes Code(s): T84.7XXA - INFECT/INFLM REACT DUE TO OTH INT ORTH PROSTH DEV/GRFT, INIT (2) Depression Assessment/Plan: Continue Cymbalta Problems reviewed: Yes Code(s): F32.9 - MAJOR DEPRESSIVE DISORDER, SINGLE EPISODE, UNSPECIFIED (3) Chronic pain Assessment/Plan: Continue oxycodone Problems reviewed: Yes Code(s): G89.29 - OTHER CHRONIC PAIN (4) Thrombocytosis Assessment/Plan: Reactive Problems reviewed: Yes Code(s): D47.3 - ESSENTIAL (HEMORRHAGIC) THROMBOCYTHEMIA (5) HTN (hypertension) Assessment/Plan: Well-controlled continue current medication Problems reviewed: Yes Code(s): I10 - ESSENTIAL (PRIMARY) HYPERTENSION (6) Anemia Assessment/Plan: Chronic H&H is stable Problems reviewed: Yes Code(s): D64.9 - ANEMIA, UNSPECIFIED
--- NOTE | 2019-09-19 13:39 | PN ---
Progress Note (short form) - Note Progress Note: Hospitalist Medicine Driving scooter in room. Without complaint Vitals 09/19/19 07:08 Temperature 97.8 F Pulse Rate 90 Respiratory 20 Rate Blood Pressure 154/95 Physical Exam refused Laboratory Tests 09/18/19 09/18/19 07:45 07:45 WBC 12.6 H Hgb 10.1 L Hct 31.6 L Plt Count 396 Sodium 138 Potassium 4.3 Chloride 105 Carbon Dioxide 27 Anion Gap 5 L BUN 13.6 Creatinine 0.9 Est GFR (CKD-EPI)AfAm 78.32 Est GFR (CKD-EPI)NonAf 67.57 Random Glucose 115 H Calcium 9.1 Microbiology 09/17/19 16:00 Hip - Left Gram Stain - Final 09/09/19 11:20 Hip - Left Gram Stain - Final 09/09/19 11:20 Hip - Left Wound Culture - Final Enterococcus Faecalis 09/09/19 11:20 Hip - Left Gram Stain - Final 09/09/19 11:20 Hip - Left Wound Culture - Final Enterococcus Faecalis 09/09/19 11:20 Hip - Left Gram Stain - Final 09/09/19 11:20 Hip - Left Wound Culture - Final Enterococcus Faecalis 09/04/19 18:00 Hip - Left Gram Stain - Final 09/04/19 18:00 Hip - Left Wound Culture - Final NO GROWTH OF AEROBIC ORGANISMS AFTER 48 HOURS INCUBATION 09/17/19 16:00 Hip - Left Wound Culture - Preliminary NO GROWTH OBTAINED AFTER 24 HOURS INCUBATION, REINCUBATED. 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 Pt seen this AM. Pt is to return to the OR per sx on 09/09/19, for I&D L hip and delayed primary closure. #s/p repeat I&D L hip wound (09/04, 09/09) -s/p removal of drain, repeat I&D, delayed primary closure and VAC -Pain control: on cymbalta, roxicodone q4h PRN per sx , oxycontin per sx -Pt also on lyrica -DVT PPx: -Chemical: ASA 81mg PO BID -Mechanical: SOUTH's, SCD's. -wound cx (+) e. faecalis, sens to amp ; on unasyn (09/10) -await result of repeat cx -Incentive spirometry q15 min. -PT/OT/Rehab, OOB. -WBAT RLE; NWB LLE. -Sx: Dr. Moya -ID: Dr. Munoz #HTN -on norvasc 5mg qd #Constipation -c/w senna, colace #Smoking cessation -on nicotine patch (refusing) #F/E/N off IVF continue to follow lytes reg diet #PPX DVT: mechanical SCD's; on asa BID per sx GI: protonix #Dispo monitoring on med-surg all recs per sx
[2019-09-19 15:25] LABS: BASO % 0.7 % (0-2.0); EOS % 4.3 % (0-4.5); HEMOGLOBIN 11.1 GM/dL (10.7-15.3); LYMPH % 18.9 % (8-40); MCH 24.5 pg (25.7-33.7); MCHC 32.6 g/dl (32.0-36.0); MEAN CELL VOLUME 75.1 fl (80-96); MEAN PLT VOLUME 7.2 fl (7.5-11.1); MONO % 3.9 % (3.8-10.2); NEUT % 72.2 % (42.8-82.8); PLATELET COUNT 395 K/MM3 (134-434); RBC 4.53 M/mm3 (3.60-5.2); RDW 20.7 % (11.6-15.6); WHITE BLOOD COUNT 10.5 K/mm3 (4.0-10.0)
[2019-09-19 15:47] LABS: BLOOD UREA NITROGEN 16.2 mg/dL (7-18); CALCIUM 8.6 mg/dL (8.5-10.1); CREATININE 0.9 mg/dL (0.55-1.3); POTASSIUM 3.7 mmol/L (3.5-5.1)
[2019-09-20] MEDS ORDERED: PT OWN MED DRAWER 7, Y5N ONE ×3 (01:16→10:13)
[2019-09-20] MEDS: AMPICILLIN NA/SULBACTAM NA 3 GM in SODIUM CHLORIDE 100 ML IVPB SCH ×2 (01:28→10:24)
[2019-09-20] MEDS: OXYBUTYNIN CHLORIDE 5 MG TABLET PO SCH ×3 (06:37→21:48)
[2019-09-20] MEDS: PREGABALIN 100 MG CAPSULE PO SCH ×3 (06:37→21:48)
[2019-09-20] MEDS: oxyCODONE HCL 5 MG TABLET PO PRN ×4 (06:42→21:46)
--- NOTE | 2019-09-20 08:27 | PN ---
Teaching Attending Note Name of Resident: Cynthia Farah ATTENDING PHYSICIAN STATEMENT I saw and evaluated the patient. I reviewed the resident's note and discussed the case with the resident. I agree with the resident's findings and plan as documented. SUBJECTIVE: OBJECTIVE: Vital Signs Temperature 99.0 F 09/19/19 22:00 Pulse Rate 96 H 09/19/19 22:00 Respiratory Rate 18 09/19/19 22:00 Blood Pressure 150/96 09/19/19 22:00 O2 Sat by Pulse Oximetry (%) 97 09/19/19 21:00 General: Elderly woman, sick looking not in distress HEENT; mucous membranes moist, mild anemia, no jaundice, PERRLA, no nystagmus Neck: No JVD, supple, no bruit, thyroid palpably normal, normal carotid pulsations. Chest: Nontender, clear to auscultation bilaterally/bilateral wheezing/ bilateral basal rales. CVS: S1-S2 regular/irregular no murmur/gallop/rub Abdomen: Nondistended, soft, bowel sounds present. 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 CBC, BMP 09/19/19 14:20 09/19/19 14:20 Active Medications Al Hydroxide/Mg Hydroxide (Mylanta Oral Suspension -) 30 ml PO Q4H PRN PRN Reason: DYSPEPSIA Amlodipine Besylate (Norvasc -) 5 mg PO DAILY [facility] Last Admin: 09/19/19 09:19 Dose: 5 mg Aspirin (Asa -) 81 mg PO BID [facility] Last Admin: 09/19/19 09:19 Dose: 81 mg Duloxetine HCl (Cymbalta -) 30 mg PO BID [facility] Last Admin: 09/19/19 09:19 Dose: 30 mg Ampicillin Sodium/Sulbactam (Sodium 3 gm/ Sodium Chloride) 100 mls @ 200 mls/ hr IVPB Q8H-IV [facility] Last Admin: 09/19/19 10:57 Dose: 200 mls/hr Magnesium Hydroxide (Milk Of Magnesia -) 30 ml PO PRN PRN PRN Reason: CONSTIPATION Nicotine (Nicoderm Patch -) 7 mg TD DAILY [facility] Last Admin: 09/19/19 09:09 Dose: Not Given Ondansetron HCl (Zofran Injection) 4 mg IVPUSH Q6H PRN PRN Reason: NAUSEA Oxybutynin Chloride (Ditropan -) 5 mg PO TID [facility] Last Admin: 09/19/19 06:23 Dose: 5 mg Oxycodone HCl (Roxicodone -) 30 mg PO Q4H PRN PRN Reason: PAIN LEVEL 7 - 10 Last Admin: 09/19/19 09:28 Dose: 30 mg Oxycodone HCl (Oxycontin -) 80 mg PO BID [facility] Last Admin: 09/19/19 10:56 Dose: 80 mg Pantoprazole Sodium (Protonix -) 40 mg PO DAILY [facility] Last Admin: 09/19/19 09:19 Dose: 40 mg Polyethylene Glycol (Miralax (For Daily Use) -) 17 gm PO DAILY [facility] Last Admin: 09/19/19 09:19 Dose: 17 grams Pregabalin (Lyrica -) 100 mg PO TID [facility] Last Admin: 09/19/19 06:23 Dose: 100 mg Senna (Senna -) 1 tab PO BID [facility] Last Admin: 09/19/19 09:28 Dose: 1 tab ASSESSMENT AND PLAN: 64 years old female, left hip THR complicated with infection, multiple hospitalization status post multiple was thought grew multiple recent anemia chronically nonhealing wound with osteomyelitis, SLE in remission, hypertension anxiety admitted on September 05, 2019 status post left hip wound VAC, actively managed and treated by orthopedics and ID. Patient remained afebrile on IV antibiotic hemodynamically stable Problem List - Problems (1) Infection of lower extremity associated with hardware Assessment/Plan: Continue current antibiotic as per ID and wound was as per Ortho. Problems reviewed: Yes Code(s): T84.7XXA - INFECT/INFLM REACT DUE TO OTH INT ORTH PROSTH DEV/GRFT, INIT (2) Depression Assessment/Plan: Continue Cymbalta Problems reviewed: Yes Code(s): F32.9 - MAJOR DEPRESSIVE DISORDER, SINGLE EPISODE, UNSPECIFIED (3) Chronic pain Assessment/Plan: Continue oxycodone Problems reviewed: Yes Code(s): G89.29 - OTHER CHRONIC PAIN (4) Thrombocytosis Assessment/Plan: Reactive Code(s): D47.3 - ESSENTIAL (HEMORRHAGIC) THROMBOCYTHEMIA (5) HTN (hypertension) Problems reviewed: Yes Code(s): I10 - ESSENTIAL (PRIMARY) HYPERTENSION (6) Anemia Assessment/Plan: Chronic H&H is stable Problems reviewed: Yes Code(s): D64.9 - ANEMIA, UNSPECIFIED
[2019-09-20 09:32] LABS: BASO % 0.7 % (0-2.0); BLOOD UREA NITROGEN 14.4 mg/dL (7-18); CALCIUM 8.9 mg/dL (8.5-10.1); CREATININE 0.9 mg/dL (0.55-1.3); EOS % 6.6 % (0-4.5); HEMATOCRIT 34.1 % (32.4-45.2); HEMOGLOBIN 11.1 GM/dL (10.7-15.3); MAGNESIUM 2.2 mg/dL (1.8-2.4); MCH 24.1 pg (25.7-33.7); MCHC 32.5 g/dl (32.0-36.0); MEAN CELL VOLUME 74.2 fl (80-96); MEAN PLT VOLUME 6.9 fl (7.5-11.1); MONO % 6.3 % (3.8-10.2); NEUT % 72.4 % (42.8-82.8); PHOSPHOROUS 3.8 mg/dL (2.5-4.9); PLATELET COUNT 409 K/MM3 (134-434); RDW 20.3 % (11.6-15.6); WHITE BLOOD COUNT 10.3 K/mm3 (4.0-10.0)
[2019-09-20] MEDS: PANTOPRAZOLE 40 MG TABLET (FP) PO SCH (10:24)
[2019-09-20] MEDS: ASPIRIN 81 MG CHEWABLE TABLETS PO SCH ×2 (10:24→21:48)
[2019-09-20] MEDS: amLODIPine BESYLATE 5 MG TABLET (FP) PO SCH (10:24)
[2019-09-20] MEDS: SENNOSIDES 8.6MG TABLET (FP) PO SCH ×2 (10:24→21:48)
[2019-09-20] MEDS: DULoxetine HCL 30 MG CAPSULE.DR PO SCH ×2 (10:24→21:48)
[2019-09-20] MEDS: oxyCODONE HCL 80 MG SUSTAINED ACTING TABLET PO SCH ×2 (10:24→22:46)
[2019-09-20] MEDS: NICOTINE 7 MG/24 HOURS TOPICAL PATCH TD SCH (10:28)
[2019-09-20] MEDS: POLYETHYLENE GLYCOL 3350 119 GM BTL PO SCH (10:30)
--- NOTE | 2019-09-20 11:52 | PN ---
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 With VAC Vitals 09/19/19 22:00 Temperature 99.0 F Pulse Rate 96 H Respiratory 18 Rate Blood Pressure 150/96 Physical Exam GENERAL: Sitting in bed, in NAD HEAD: Normal with no signs of trauma. LUNGS: CTA b/l . no accessory m usage HEART: Regular rate and rhythm, S1, S2 without murmur, rub or gallop. ABDOMEN: Soft, nontender, nondistended, normoactive bowel sounds. EXTREMITIES: 2+ pulses, warm, well-perfused, no edema. +L hip w/ dressing, c/d/ i. 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 Pt seen this AM. Pt is to return to the OR per sx on 09/09/19, for I&D L hip and delayed primary closure. #s/p repeat I&D L hip wound (09/04, 09/09) -s/p removal of drain, repeat I&D, delayed primary closure and VAC -Pain control: on cymbalta, roxicodone q4h PRN per sx , oxycontin per sx -Pt also on lyrica -DVT PPx: -Chemical: ASA 81mg PO BID -Mechanical: SOUTH's, SCD's. -wound cx (+) e. faecalis, sens to amp ; on unasyn (09/10) -repeat cx ; has been (-) thus far -Incentive spirometry q15 min. -PT/OT/Rehab, OOB. -WBAT RLE; NWB LLE. -Sx: Dr. Moya -ID: Dr. Munoz #HTN -on norvasc 5mg qd #Constipation -c/w senna, colace #Smoking cessation -on nicotine patch (refusing) #F/E/N off IVF continue to follow lytes reg diet #PPX DVT: mechanical SCD's; on asa BID per sx GI: protonix #Dispo monitoring on med-surg all recs per sx
[2019-09-20] MEDS: AMOX TR/POT CLAV 875MG/125MG TABLETS (FP) PO SCH (17:45)
[2019-09-21] MEDS: PREGABALIN 100 MG CAPSULE PO SCH ×3 (05:45→21:39)
[2019-09-21] MEDS: OXYBUTYNIN CHLORIDE 5 MG TABLET PO SCH ×3 (05:46→21:39)
[2019-09-21] MEDS: oxyCODONE HCL 5 MG TABLET PO PRN ×4 (05:48→20:36)
[2019-09-21] MEDS: AMOX TR/POT CLAV 875MG/125MG TABLETS (FP) PO SCH ×2 (08:29→16:57)
[2019-09-21 09:37] LABS: BASO % 0.8 % (0-2.0); EOS % 6.3 % (0-4.5); HEMATOCRIT 36.2 % (32.4-45.2); HEMOGLOBIN 11.7 GM/dL (10.7-15.3); LYMPH % 16.4 % (8-40); MCH 24.3 pg (25.7-33.7); MCHC 32.4 g/dl (32.0-36.0); MEAN PLT VOLUME 7.2 fl (7.5-11.1); MONO % 4.4 % (3.8-10.2); NEUT % 72.1 % (42.8-82.8); PLATELET COUNT 406 K/MM3 (134-434); RBC 4.83 M/mm3 (3.60-5.2); RDW 20.4 % (11.6-15.6); WHITE BLOOD COUNT 10.9 K/mm3 (4.0-10.0)
[2019-09-21 10:25] LABS: BLOOD UREA NITROGEN 16.2 mg/dL (7-18); CALCIUM 8.8 mg/dL (8.5-10.1); CREATININE 0.9 mg/dL (0.55-1.3); MAGNESIUM 2.2 mg/dL (1.8-2.4); POTASSIUM 4.2 mmol/L (3.5-5.1)
[2019-09-21] MEDS: SENNOSIDES 8.6MG TABLET (FP) PO SCH ×2 (10:29→21:38)
[2019-09-21] MEDS: amLODIPine BESYLATE 10 MG TABLET (FP) PO SCH (10:29)
[2019-09-21] MEDS: DULoxetine HCL 30 MG CAPSULE.DR PO SCH ×2 (10:29→21:39)
[2019-09-21] MEDS: PANTOPRAZOLE 40 MG TABLET (FP) PO SCH (10:30)
[2019-09-21] MEDS: POLYETHYLENE GLYCOL 3350 119 GM BTL PO SCH (10:30)
[2019-09-21] MEDS: NICOTINE 7 MG/24 HOURS TOPICAL PATCH TD SCH (10:30)
[2019-09-21] MEDS: ASPIRIN 81 MG CHEWABLE TABLETS PO SCH ×2 (10:30→21:39)
[2019-09-21] MEDS: oxyCODONE HCL 80 MG SUSTAINED ACTING TABLET PO SCH ×2 (10:31→21:39)
[2019-09-21] MEDS: LISINOPRIL 10 MG TABLET (FP) PO SCH (16:57)
--- NOTE | 2019-09-21 18:13 | PN ---
Progress Note, Physician History of Present Illness: Pt states she feels well. Has no complaints. Temp 99.7F today - Current Medication List Current Medications: Active Medications Al Hydroxide/Mg Hydroxide (Mylanta Oral Suspension -) 30 ml PO Q4H PRN PRN Reason: DYSPEPSIA Amlodipine Besylate (Norvasc -) 10 mg PO DAILY [facility] Last Admin: 09/21/19 10:29 Dose: 10 mg Amoxicillin/Clavulanate Potassium (Augmentin - 875mg Tablet) 1 tab PO BID@0800, 1730 [facility] Last Admin: 09/21/19 16:57 Dose: 1 tab Aspirin (Asa -) 81 mg PO BID [facility] Last Admin: 09/21/19 10:30 Dose: 81 mg Duloxetine HCl (Cymbalta -) 30 mg PO BID [facility] Last Admin: 09/21/19 10:29 Dose: 30 mg Lisinopril (Prinivil) 10 mg PO DAILY [facility] Last Admin: 09/21/19 16:57 Dose: 10 mg Magnesium Hydroxide (Milk Of Magnesia -) 30 ml PO PRN PRN PRN Reason: CONSTIPATION Nicotine (Nicoderm Patch -) 7 mg TD DAILY [facility] Last Admin: 09/21/19 10:30 Dose: Not Given Ondansetron HCl (Zofran Injection) 4 mg IVPUSH Q6H PRN PRN Reason: NAUSEA Oxybutynin Chloride (Ditropan -) 5 mg PO TID [facility] Last Admin: 09/21/19 14:22 Dose: 5 mg Oxycodone HCl (Roxicodone -) 30 mg PO Q4H PRN PRN Reason: PAIN LEVEL 7 - 10 Last Admin: 09/21/19 15:29 Dose: 30 mg Oxycodone HCl (Oxycontin -) 80 mg PO BID [facility] Last Admin: 09/21/19 10:31 Dose: 80 mg Pantoprazole Sodium (Protonix -) 40 mg PO DAILY [facility] Last Admin: 09/21/19 10:30 Dose: 40 mg Polyethylene Glycol (Miralax (For Daily Use) -) 17 gm PO DAILY [facility] Last Admin: 09/21/19 10:30 Dose: 17 grams Pregabalin (Lyrica -) 100 mg PO TID [facility] Last Admin: 09/21/19 14:23 Dose: 100 mg Senna (Senna -) 1 tab PO BID [facility] Last Admin: 09/21/19 10:29 Dose: 1 tab - Objective Vital Signs: Vital Signs Temperature 99.7 F H 09/21/19 16:55 Pulse Rate 98 H 09/21/19 16:55 Respiratory Rate 09/21/19 16:55 Blood Pressure 191/84 H 09/21/19 16:55 O2 Sat by Pulse Oximetry (%) 95 09/20/19 21:00 Constitutional: Yes: No Distress, Calm Cardiovascular: Yes: Regular Rate and Rhythm Respiratory: Yes: CTA Bilaterally Gastrointestinal: Yes: Normal Bowel Sounds, Soft Wound/Incision: Yes: Other (Lt hip wound vac on) Neurological: Yes: Alert Labs: CBC, BMP 09/21/19 08:45 09/21/19 08:45 Microbiology 09/17/19 16:00 Hip - Left Gram Stain - Final 09/17/19 16:00 Hip - Left Wound Culture - Final NO GROWTH OF AEROBIC ORGANISMS AFTER 48 HOURS INCUBATION 09/09/19 11:20 Hip - Left Gram Stain - Final 09/09/19 11:20 Hip - Left Wound Culture - Final Enterococcus Faecalis 09/09/19 11:20 Hip - Left Gram Stain - Final 09/09/19 11:20 Hip - Left Wound Culture - Final Enterococcus Faecalis 09/09/19 11:20 Hip - Left Gram Stain - Final 09/09/19 11:20 Hip - Left Wound Culture - Final Enterococcus Faecalis 09/04/19 18:00 Hip - Left Gram Stain - Final 09/04/19 18:00 Hip - Left Wound Culture - Final NO GROWTH OF AEROBIC ORGANISMS AFTER 48 HOURS INCUBATION Problem List - Problems (1) Anemia Code(s): D64.9 - ANEMIA, UNSPECIFIED (2) Chronic pain Code(s): G89.29 - OTHER CHRONIC PAIN (3) Depression Code(s): F32.9 - MAJOR DEPRESSIVE DISORDER, SINGLE EPISODE, UNSPECIFIED (4) HTN (hypertension) Code(s): I10 - ESSENTIAL (PRIMARY) HYPERTENSION (5) Infection of lower extremity associated with hardware Code(s): T84.7XXA - INFECT/INFLM REACT DUE TO OTH INT ORTH PROSTH DEV/GRFT, INIT (6) Wound, open, hip or thigh Code(s): MPK5598 - Assessment/Plan 64 y/o F with hx L total hip arthroplasty s/p washout and wound vac, multiple drug resistant bacteria, chronic left wound ulcers, osteoarthritis, SLE in remission, HTN, anxiety, overactive bladder s/p repeat I+D/delayed primary closure and wound vac placement -- temp is mildly elevated today, pt without new complaints, will monitor -- continue Unasyn for now
--- NOTE | 2019-09-21 21:59 | PN ---
Physical Exam: 64 F L total hip arthroplasty s/p washout. Doing well. Riding scooter around unit, denies complaints. Physical Exam GENERAL: riding in scooter around unit, conversing, AAox3 HEAD: Normal with no signs of trauma. LUNGS: CTA b/l . no accessory m usage HEART: Regular rate and rhythm, S1, S2 without murmur, rub or gallop. ABDOMEN: Soft, non-tender, non-distended, normoactive bowel sounds. EXTREMITIES: 2+ pulses, warm, well-perfused, no edema. +L hip w/ dressing SKIN: Warm, dry, normal turgor, no rashes or lesions noted Vital Signs - 24 hr 09/21/19 09/21/19 09/21/19 07:32 09:00 10:00 Temperature 99.1 F 98.9 F Pulse Rate 85 87 Respiratory 20 15 17 Rate Blood Pressure 165/80 144/82 O2 Sat by Pulse 95 Oximetry (%) 09/21/19 09/21/19 16:55 17:45 Temperature 99.7 F H Pulse Rate 98 H 97 H Respiratory 20 Rate Blood Pressure 191/84 H 198/94 H O2 Sat by Pulse Oximetry (%) Laboratory Results - last 24 hr 09/21/19 09/21/19 08:45 08:45 WBC 10.9 H RBC 4.83 Hgb 11.7 Hct 36.2 MCV 75.0 L MCH 24.3 L MCHC 32.4 RDW 20.4 H Plt Count 406 MPV 7.2 L Absolute Neuts (auto) 7.8 Neutrophils % 72.1 Lymphocytes % 16.4 Monocytes % 4.4 Eosinophils % 6.3 H Basophils % 0.8 Nucleated RBC % 0 Sodium 139 Potassium 4.2 Chloride 106 Carbon Dioxide 25 Anion Gap 8 BUN 16.2 Creatinine 0.9 Est GFR (CKD-EPI)AfAm 78.32 Est GFR (CKD-EPI)NonAf 67.57 Random Glucose 106 Calcium 8.8 Phosphorus 4.0 Magnesium 2.2 Current Medications Generic Name Dose Route Start Last Admin Trade Name Freq PRN Reason Stop Dose Admin Al Hydroxide/Mg Hydroxide 30 ml 09/13/19 20:38 Mylanta Oral Suspension - PO Q4H PRN DYSPEPSIA Amlodipine Besylate 10 mg 09/21/19 10:00 09/21/19 10:29 Norvasc - PO 10 mg DAILY [facility] Administration Amoxicillin/Clavulanate Potassium 1 tab 09/20/19 17:30 09/21/19 16:57 Augmentin - 875mg Tablet PO 1 tab BID@0800,1730 [facility] Administration Aspirin 81 mg 09/13/19 22:00 09/21/19 21:39 Asa - PO 81 mg BID [facility] Administration Duloxetine HCl 30 mg 09/13/19 22:00 09/21/19 21:39 Cymbalta - PO 30 mg BID [facility] Administration Lisinopril 10 mg 09/21/19 16:45 09/21/19 16:57 Prinivil PO 10 mg DAILY [facility] Administration Magnesium Hydroxide 30 ml 09/13/19 20:38 Milk Of Magnesia - PO PRN PRN CONSTIPATION Nicotine 7 mg 09/14/19 10:00 09/21/19 10:30 Nicoderm Patch - TD Not Given DAILY [facility] Ondansetron HCl 4 mg 09/13/19 20:38 Zofran Injection IVPUSH Q6H PRN NAUSEA Oxybutynin Chloride 5 mg 09/13/19 22:00 09/21/19 21:39 Ditropan - PO 5 mg TID [facility] Administration Oxycodone HCl 30 mg 09/13/19 20:38 09/21/19 20:36 Roxicodone - PO 30 mg Q4H PRN Administration PAIN LEVEL 7 - 10 Oxycodone HCl 80 mg 09/13/19 22:00 09/21/19 21:39 Oxycontin - PO 80 mg BID [facility] Administration Pantoprazole Sodium 40 mg 09/14/19 10:00 09/21/19 10:30 Protonix - PO 40 mg DAILY [facility] Administration Polyethylene Glycol 17 gm 09/14/19 10:00 09/21/19 10:30 Miralax (For Daily Use) - PO 17 grams DAILY [facility] Administration Pregabalin 100 mg 09/13/19 22:00 09/21/19 21:39 Lyrica - PO 100 mg TID [facility] Administration Senna 1 tab 09/13/19 22:00 09/21/19 21:38 Senna - PO 1 tab BID [facility] Administration A/P: 64 F h/o L total hip arthroplasty s/p washout and wound vac, multiple drug resistant bacteria (most recently, 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 Pt. seen in AM comfortable, riding scooter around unit. No fevers, BP high today started Lisinopril 10mg. S/p repeat I&D L hip wound (09/04, 09/09) s/p removal of drain, repeat I&D, delayed primary closure and VAC Pain control: on cymbalta, roxicodone q4h PRN per sx , oxycontin per sx Pt also on lyrica DVT PPx: -Chemical: ASA 81mg PO BID -Mechanical: SOUTH's, SCD's. wound cx (+) e. faecalis, sens to amp ; on unasyn (09/10) repeat cx ; has been (-) thus far Incentive spirometry q15 min. PT/OT/Rehab, OOB. WBAT RLE; NWB LLE. Sx: Dr. Moya ID: Dr. Munoz HTN Not at goal Norvasc 10mg, add Lisinopril 10mg, monitor chem Constipation c/w senna, Colace Miralax PRN Smoking cessation NRT PRN FEN PO hydration, chem monitoring, Na restricted diet DVT ppx: Mechanical SCD's for now; on asa BID per sx GI: Protonix Visit type - Emergency Visit Emergency Visit: Yes ED Registration Date: 09/04/19 Care time: The patient presented to the Emergency Department on the above date and was hospitalized for further evaluation of their emergent condition. - New Patient This patient is new to me today: No - Critical Care Critical Care patient: No - Discharge Referral Referred to [facility] Med P.C.: No
[2019-09-22] MEDS: oxyCODONE HCL 5 MG TABLET PO PRN ×5 (01:02→21:59)
[2019-09-22] MEDS ORDERED: CARBAMIDE PEROXIDE 6.5% OTIC 15 ML BOTTLE AD ONE (05:00)
[2019-09-22] MEDS: PREGABALIN 100 MG CAPSULE PO SCH ×3 (05:38→21:58)
[2019-09-22] MEDS: OXYBUTYNIN CHLORIDE 5 MG TABLET PO SCH ×3 (05:38→21:59)
[2019-09-22] MEDS: AMOX TR/POT CLAV 875MG/125MG TABLETS (FP) PO SCH ×2 (08:51→17:44)
[2019-09-22] MEDS ORDERED: PT OWN MED DRAWER 7, Y5N ONE (09:41)
[2019-09-22] MEDS: SENNOSIDES 8.6MG TABLET (FP) PO SCH ×2 (09:42→21:58)
[2019-09-22] MEDS: DULoxetine HCL 30 MG CAPSULE.DR PO SCH ×2 (09:42→21:57)
[2019-09-22] MEDS: amLODIPine BESYLATE 10 MG TABLET (FP) PO SCH (09:42)
[2019-09-22] MEDS: LISINOPRIL 10 MG TABLET (FP) PO SCH (09:42)
[2019-09-22] MEDS: ASPIRIN 81 MG CHEWABLE TABLETS PO SCH ×2 (09:42→21:59)
[2019-09-22] MEDS: PANTOPRAZOLE 40 MG TABLET (FP) PO SCH (09:42)
[2019-09-22] MEDS: oxyCODONE HCL 80 MG SUSTAINED ACTING TABLET PO SCH ×2 (09:43→21:58)
[2019-09-22] MEDS: NICOTINE 7 MG/24 HOURS TOPICAL PATCH TD SCH (09:43)
[2019-09-22] MEDS: POLYETHYLENE GLYCOL 3350 119 GM BTL PO SCH (09:45)
[2019-09-22 13:47] LABS: BASO % 0.5 % (0-2.0); EOS % 6.9 % (0-4.5); HEMATOCRIT 35.9 % (32.4-45.2); HEMOGLOBIN 11.3 GM/dL (10.7-15.3); LYMPH % 17.3 % (8-40); MCH 23.8 pg (25.7-33.7); MCHC 31.5 g/dl (32.0-36.0); MEAN CELL VOLUME 75.5 fl (80-96); MEAN PLT VOLUME 7.1 fl (7.5-11.1); MONO % 5.8 % (3.8-10.2); NEUT % 69.5 % (42.8-82.8); PLATELET COUNT 419 K/MM3 (134-434); RBC 4.75 M/mm3 (3.60-5.2); RDW 20.9 % (11.6-15.6); WHITE BLOOD COUNT 11.2 K/mm3 (4.0-10.0)
[2019-09-22 14:15] LABS: BLOOD UREA NITROGEN 18.8 mg/dL (7-18); CALCIUM 9.1 mg/dL (8.5-10.1); POTASSIUM 4.4 mmol/L (3.5-5.1)
--- NOTE | 2019-09-22 14:40 | PN ---
Progress Note, Physician History of Present Illness: Pt alert, without distress. Temp of 99.7F last night, currently afebrile. c/o mild vague LLQ abdominal discomfort. Normal BM yesterday morning, no n/v or any other new complaints. - Current Medication List Current Medications: Active Medications Al Hydroxide/Mg Hydroxide (Mylanta Oral Suspension -) 30 ml PO Q4H PRN PRN Reason: DYSPEPSIA Amlodipine Besylate (Norvasc -) 10 mg PO DAILY [facility] Last Admin: 09/22/19 09:42 Dose: Not Given Amoxicillin/Clavulanate Potassium (Augmentin - 875mg Tablet) 1 tab PO BID@0800, 1730 [facility] Last Admin: 09/22/19 08:51 Dose: 1 tab Aspirin (Asa -) 81 mg PO BID [facility] Last Admin: 09/22/19 09:42 Dose: 81 mg Duloxetine HCl (Cymbalta -) 30 mg PO BID [facility] Last Admin: 09/22/19 09:42 Dose: 30 mg Lisinopril (Prinivil) 10 mg PO DAILY [facility] Last Admin: 09/22/19 09:42 Dose: 10 mg Magnesium Hydroxide (Milk Of Magnesia -) 30 ml PO PRN PRN PRN Reason: CONSTIPATION Nicotine (Nicoderm Patch -) 7 mg TD DAILY [facility] Last Admin: 09/22/19 09:43 Dose: Not Given Ondansetron HCl (Zofran Injection) 4 mg IVPUSH Q6H PRN PRN Reason: NAUSEA Oxybutynin Chloride (Ditropan -) 5 mg PO TID [facility] Last Admin: 09/22/19 13:38 Dose: 5 mg Oxycodone HCl (Roxicodone -) 30 mg PO Q4H PRN PRN Reason: PAIN LEVEL 7 - 10 Last Admin: 09/22/19 12:00 Dose: 30 mg Oxycodone HCl (Oxycontin -) 80 mg PO BID [facility] Last Admin: 09/22/19 09:43 Dose: 80 mg Pantoprazole Sodium (Protonix -) 40 mg PO DAILY [facility] Last Admin: 09/22/19 09:42 Dose: 40 mg Polyethylene Glycol (Miralax (For Daily Use) -) 17 gm PO DAILY [facility] Last Admin: 09/22/19 09:45 Dose: 17 grams Pregabalin (Lyrica -) 100 mg PO TID [facility] Last Admin: 09/22/19 13:38 Dose: 100 mg Senna (Senna -) 1 tab PO BID [facility] Last Admin: 09/22/19 09:42 Dose: 1 tab - Objective Vital Signs: Vital Signs Temperature 98.1 F 09/22/19 13:55 Pulse Rate 96 H 09/22/19 13:55 Respiratory Rate 20 09/22/19 13:55 Blood Pressure 154/59 L 09/22/19 13:55 O2 Sat by Pulse Oximetry (%) 98 09/22/19 09:00 Constitutional: Yes: No Distress, Calm Cardiovascular: Yes: Regular Rate and Rhythm Respiratory: Yes: CTA Bilaterally Gastrointestinal: Yes: Normal Bowel Sounds, Soft, Tenderness (minimal LLQ with deep palpation, no distension, no guarding) Extremities: Yes: WNL Wound/Incision: Yes: Other (wound vac) Neurological: Yes: Alert Labs: CBC, BMP 09/22/19 13:10 09/22/19 13:10 Microbiology 09/17/19 16:00 Hip - Left Gram Stain - Final 09/17/19 16:00 Hip - Left Wound Culture - Final NO GROWTH OF AEROBIC ORGANISMS AFTER 48 HOURS INCUBATION 09/09/19 11:20 Hip - Left Gram Stain - Final 09/09/19 11:20 Hip - Left Wound Culture - Final Enterococcus Faecalis 09/09/19 11:20 Hip - Left Gram Stain - Final 09/09/19 11:20 Hip - Left Wound Culture - Final Enterococcus Faecalis 09/09/19 11:20 Hip - Left Gram Stain - Final 09/09/19 11:20 Hip - Left Wound Culture - Final Enterococcus Faecalis 09/04/19 18:00 Hip - Left Gram Stain - Final 09/04/19 18:00 Hip - Left Wound Culture - Final NO GROWTH OF AEROBIC ORGANISMS AFTER 48 HOURS INCUBATION Problem List - Problems (1) Anemia Code(s): D64.9 - ANEMIA, UNSPECIFIED (2) Chronic pain Code(s): G89.29 - OTHER CHRONIC PAIN (3) Depression Code(s): F32.9 - MAJOR DEPRESSIVE DISORDER, SINGLE EPISODE, UNSPECIFIED (4) HTN (hypertension) Code(s): I10 - ESSENTIAL (PRIMARY) HYPERTENSION (5) Infection of lower extremity associated with hardware Code(s): T84.7XXA - INFECT/INFLM REACT DUE TO OTH INT ORTH PROSTH DEV/GRFT, INIT (6) Wound, open, hip or thigh Code(s): AEU4885 - Assessment/Plan 64 y/o F with hx L total hip arthroplasty s/p washout and wound vac, multiple drug resistant bacteria, chronic left wound ulcers, osteoarthritis, SLE in remission, HTN, anxiety, overactive bladder s/p repeat I+D/delayed primary closure and wound vac placement -- recent mild temp elevations, wbc slightly increased, on Augmentin -- will switch to Unasyn and monitor trends -- if patient c/o persistent abd pain suggest imaging, currently is in no distress -- repeat cbc, send cmp
[2019-09-22] MEDS ORDERED: AMPICILLIN NA/SULBACTAM NA 3 GM in SODIUM CHLORIDE 100 ML IVPB SCH (15:00)
[2019-09-22 16:13] LABS: ANISOCYTOSIS 2+
--- NOTE | 2019-09-22 19:48 | PN ---
Physical Exam: 64 F L total hip arthroplasty s/p washout. Doing well. Riding scooter around unit, has some abdominal discomfort, denies fever/chills, will obtain AM labs, refusing IV abx. Physical Exam GENERAL: riding in scooter around unit, conversing, AAox3 HEAD: Normal with no signs of trauma. LUNGS: CTA b/l . no accessory m usage HEART: Regular rate and rhythm, S1, S2 without murmur, rub or gallop. ABDOMEN: Soft, non-tender, non-distended, normoactive bowel sounds. EXTREMITIES: 2+ pulses, warm, well-perfused, no edema. +L hip w/ dressing SKIN: Warm, dry, normal turgor, no rashes or lesions noted Vital Signs - 24 hr 09/21/19 09/21/19 09/22/19 21:00 22:00 07:21 Temperature 99.7 F H 99.4 F Pulse Rate 99 H 90 Respiratory 20 20 20 Rate Blood Pressure 151/91 159/83 O2 Sat by Pulse 100 Oximetry (%) 09/22/19 09/22/19 09/22/19 09:00 09:53 13:55 Temperature 99.1 F 98.1 F Pulse Rate 93 H 96 H Respiratory 20 20 Rate Blood Pressure 160/84 154/59 L O2 Sat by Pulse 98 Oximetry (%) 09/22/19 17:02 Temperature 96.7 F L Pulse Rate 96 H Respiratory 20 Rate Blood Pressure 155/96 O2 Sat by Pulse Oximetry (%) Laboratory Results - last 24 hr 09/22/19 09/22/19 13:10 13:10 WBC 11.2 H RBC 4.75 Hgb 11.3 Hct 35.9 MCV 75.5 L MCH 23.8 L MCHC 31.5 L RDW 20.9 H Plt Count 419 MPV 7.1 L Absolute Neuts (auto) 7.8 Neutrophils % 69.5 Lymphocytes % 17.3 Monocytes % 5.8 Eosinophils % 6.9 H Basophils % 0.5 Nucleated RBC % 0 Anisocytosis 2+ Sodium 138 Potassium 4.4 Chloride 106 Carbon Dioxide 27 Anion Gap 6 L BUN 18.8 H Creatinine 1.0 Est GFR (CKD-EPI)AfAm 68.95 Est GFR (CKD-EPI)NonAf 59.49 Random Glucose 94 Calcium 9.1 Current Medications Generic Name Dose Route Start Last Admin Trade Name Freq PRN Reason Stop Dose Admin Al Hydroxide/Mg Hydroxide 30 ml 09/13/19 20:38 Mylanta Oral Suspension - PO Q4H PRN DYSPEPSIA Amlodipine Besylate 10 mg 09/21/19 10:00 09/22/19 09:42 Norvasc - PO Not Given DAILY [facility] Amoxicillin/Clavulanate Potassium 1 tab 09/22/19 17:30 09/22/19 17:44 Augmentin - 875mg Tablet PO 1 tab BID@0800,1730 [facility] Administration Aspirin 81 mg 09/13/19 22:00 09/22/19 09:42 Asa - PO 81 mg BID [facility] Administration Duloxetine HCl 30 mg 09/13/19 22:00 09/22/19 09:42 Cymbalta - PO 30 mg BID [facility] Administration Lisinopril 10 mg 09/21/19 16:45 09/22/19 09:42 Prinivil PO 10 mg DAILY [facility] Administration Magnesium Hydroxide 30 ml 09/13/19 20:38 Milk Of Magnesia - PO PRN PRN CONSTIPATION Nicotine 7 mg 09/14/19 10:00 09/22/19 09:43 Nicoderm Patch - TD Not Given DAILY [facility] Ondansetron HCl 4 mg 09/13/19 20:38 Zofran Injection IVPUSH Q6H PRN [facility] Oxybutynin Chloride 5 mg 09/13/19 22:00 09/22/19 13:38 Ditropan - PO 5 mg TID [facility] Administration Oxycodone HCl 30 mg 09/13/19 20:38 09/22/19 17:44 Roxicodone - PO 30 mg Q4H PRN Administration PAIN LEVEL 7 - 10 Oxycodone HCl 80 mg 09/13/19 22:00 09/22/19 09:43 Oxycontin - PO 80 mg BID [facility] Administration Pantoprazole Sodium 40 mg 09/14/19 10:00 09/22/19 09:42 Protonix - PO 40 mg DAILY [facility] Administration Polyethylene Glycol 17 gm 09/14/19 10:00 09/22/19 09:45 Miralax (For Daily Use) - PO 17 grams DAILY [facility] Administration Pregabalin 100 mg 09/13/19 22:00 09/22/19 13:38 Lyrica - PO 100 mg TID [facility] Administration Senna 1 tab 09/13/19 22:00 09/22/19 09:42 Senna - PO 1 tab BID [facility] Administration A/P: 64 F h/o L total hip arthroplasty s/p washout and wound vac, multiple drug resistant bacteria (most recently, 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 Pt. seen in AM, comfortable, refusing BP meds endorses "they make my blood pressure high when I take them", also c/o non-specific abdominal discomfort, will send AM labs. S/p repeat I&D L hip wound (09/04, 09/09) s/p removal of drain, repeat I&D, delayed primary closure and VAC Pain control: on cymbalta, roxicodone q4h PRN per sx , oxycontin per sx Pt also on lyrica DVT PPx: -Chemical: ASA 81mg PO BID -Mechanical: SOUTH's, SCD's. wound cx (+) e. faecalis, sens to amp ; on unasyn (09/10) repeat cx ; has been (-) thus far Incentive spirometry q15 min. PT/OT/Rehab, OOB. WBAT RLE; NWB LLE. Sx: Dr. Moya ID: Dr. Munoz HTN not at goal, refusing BP meds only wants Lisinopril DC Norvasc (patient refusing), increase Lisinopril to 20mg daily Constipation c/w senna, Colace Miralax PRN Smoking cessation NRT PRN FEN PO hydration, chem monitoring, Na restricted diet DVT ppx: Mechanical SCD's for now; on asa BID per sx GI: Protonix Visit type - Emergency Visit Emergency Visit: Yes ED Registration Date: 09/04/19 Care time: The patient presented to the Emergency Department on the above date and was hospitalized for further evaluation of their emergent condition. - New Patient This patient is new to me today: No - Critical Care Critical Care patient: No - Discharge Referral Referred to [facility] Med P.C.: No
[2019-09-23] MEDS: OXYBUTYNIN CHLORIDE 5 MG TABLET PO SCH ×3 (06:03→22:36)
[2019-09-23] MEDS: oxyCODONE HCL 5 MG TABLET PO PRN ×4 (06:03→20:41)
[2019-09-23] MEDS: PREGABALIN 100 MG CAPSULE PO SCH ×3 (06:03→22:37)
[2019-09-23 08:13] LABS: BASO % 0.6 % (0-2.0); EOS % 6.9 % (0-4.5); HEMATOCRIT 34.3 % (32.4-45.2); HEMOGLOBIN 11.1 GM/dL (10.7-15.3); LYMPH % 20.9 % (8-40); MCH 24.2 pg (25.7-33.7); MCHC 32.4 g/dl (32.0-36.0); MEAN CELL VOLUME 74.8 fl (80-96); MEAN PLT VOLUME 7.1 fl (7.5-11.1); MONO % 4.5 % (3.8-10.2); NEUT % 67.1 % (42.8-82.8); PLATELET COUNT 385 K/MM3 (134-434); RBC 4.58 M/mm3 (3.60-5.2); WHITE BLOOD COUNT 8.7 K/mm3 (4.0-10.0)
[2019-09-23 08:46] LABS: ALBUMIN 3.1 g/dl (3.4-5.0); BILIRUBIN,TOTAL 0.2 mg/dL (0.2-1); CALCIUM 9.1 mg/dL (8.5-10.1); CREATININE 0.9 mg/dL (0.55-1.3); POTASSIUM 4.5 mmol/L (3.5-5.1); TOT PROT 7.2 g/dl (6.4-8.2)
[2019-09-23] MEDS ORDERED: PT OWN MED DRAWER 7, Y5N ONE (10:12)
[2019-09-23] MEDS: AMOX TR/POT CLAV 875MG/125MG TABLETS (FP) PO SCH ×2 (10:20→17:37)
[2019-09-23] MEDS: POLYETHYLENE GLYCOL 3350 119 GM BTL PO SCH (10:20)
[2019-09-23] MEDS: SENNOSIDES 8.6MG TABLET (FP) PO SCH ×2 (10:21→22:37)
[2019-09-23] MEDS: DULoxetine HCL 30 MG CAPSULE.DR PO SCH ×2 (10:21→22:36)
[2019-09-23] MEDS: PANTOPRAZOLE 40 MG TABLET (FP) PO SCH (10:21)
[2019-09-23] MEDS: LISINOPRIL 20 MG TABLET (FP) PO SCH (10:21)
[2019-09-23] MEDS: NICOTINE 7 MG/24 HOURS TOPICAL PATCH TD SCH ×2 (10:21→10:27)
[2019-09-23] MEDS: ASPIRIN 81 MG CHEWABLE TABLETS PO SCH ×2 (10:21→22:37)
--- NOTE | 2019-09-23 11:11 | PN ---
Progress Note, Physician History of Present Illness: stable refused iv abx wbc has normalized plan for washout again - Current Medication List Current Medications: Active Medications Al Hydroxide/Mg Hydroxide (Mylanta Oral Suspension -) 30 ml PO Q4H PRN PRN Reason: DYSPEPSIA Amoxicillin/Clavulanate Potassium (Augmentin - 875mg Tablet) 1 tab PO BID@0800, 1730 [facility] Last Admin: 09/23/19 10:20 Dose: 1 tab Aspirin (Asa -) 81 mg PO BID [facility] Last Admin: 09/23/19 10:21 Dose: 81 mg Duloxetine HCl (Cymbalta -) 30 mg PO BID [facility] Last Admin: 09/23/19 10:21 Dose: 30 mg Lisinopril (Prinivil) 20 mg PO DAILY [facility] Last Admin: 09/23/19 10:21 Dose: 20 mg Magnesium Hydroxide (Milk Of Magnesia -) 30 ml PO PRN PRN PRN Reason: CONSTIPATION Last Admin: 09/22/19 22:05 Dose: 30 ml Nicotine (Nicoderm Patch -) 7 mg TD DAILY [facility] Last Admin: 09/23/19 10:27 Dose: Not Given Ondansetron HCl (Zofran Injection) 4 mg IVPUSH Q6H PRN PRN Reason: NAUSEA Oxybutynin Chloride (Ditropan -) 5 mg PO TID [facility] Last Admin: 09/23/19 06:03 Dose: 5 mg Oxycodone HCl (Roxicodone -) 30 mg PO Q4H PRN PRN Reason: PAIN LEVEL 7 - 10 Last Admin: 09/23/19 10:20 Dose: 30 mg Oxycodone HCl (Oxycontin -) 80 mg PO BID [facility] Last Admin: 09/22/19 21:58 Dose: 80 mg Pantoprazole Sodium (Protonix -) 40 mg PO DAILY [facility] Last Admin: 09/23/19 10:21 Dose: 40 mg Polyethylene Glycol (Miralax (For Daily Use) -) 17 gm PO DAILY [facility] Last Admin: 09/23/19 10:20 Dose: 17 grams Pregabalin (Lyrica -) 100 mg PO TID [facility] Last Admin: 09/23/19 06:03 Dose: 100 mg Senna (Senna -) 1 tab PO BID [facility] Last Admin: 09/23/19 10:21 Dose: 1 tab - Objective Vital Signs: Vital Signs Temperature 98.1 F 09/23/19 10:00 Pulse Rate 92 H 09/23/19 10:00 Respiratory Rate 18 09/23/19 10:00 Blood Pressure 164/85 09/23/19 10:00 O2 Sat by Pulse Oximetry (%) 99 09/22/19 21:00 Constitutional: Yes: No Distress, Calm Cardiovascular: Yes: S1, S2 Respiratory: Yes: Regular, CTA Bilaterally Gastrointestinal: Yes: Normal Bowel Sounds, Soft Musculoskeletal: Yes: WNL Extremities: Yes: Other Neurological: Yes: Alert, Oriented Psychiatric: Yes: Alert, Oriented Labs: CBC, BMP 09/23/19 06:40 09/23/19 06:40 Assessment/Plan Problem List - Problems (1) Anemia Code(s): D64.9 - ANEMIA, UNSPECIFIED (2) Chronic pain Code(s): G89.29 - OTHER CHRONIC PAIN (3) Depression Code(s): F32.9 - MAJOR DEPRESSIVE DISORDER, SINGLE EPISODE, UNSPECIFIED (4) HTN (hypertension) Code(s): I10 - ESSENTIAL (PRIMARY) HYPERTENSION (5) Infection of lower extremity associated with hardware Code(s): T84.7XXA - INFECT/INFLM REACT DUE TO OTH INT ORTH PROSTH DEV/GRFT, INIT (6) Wound, open, hip or thigh Code(s): [id number] - Assessment/Plan 64 y/o F with hx L total hip arthroplasty s/p washout and wound vac, multiple drug resistant bacteria (most recently, 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 plan continue current mgmt abx plan from surgery side rest as per the team
[2019-09-23] MEDS: oxyCODONE HCL 80 MG SUSTAINED ACTING TABLET PO SCH ×2 (11:20→22:37)
--- NOTE | 2019-09-23 11:41 | PN ---
Progress Note (short form) - Note Progress Note: Hospitalist Medicine Driving scooter in hallway. +VAC. Was for repeat washout, however refused. Pt for d/c tomorrow. Has portable VAC now Vitals 09/19/19 22:00 Temperature 99.0 F Pulse Rate 96 H Respiratory 18 Rate Blood Pressure 150/96 Physical Exam GENERAL: driving scooter. in NAD HEAD: Normal with no signs of trauma. LUNGS: CTA b/l . no accessory m usage HEART: Regular rate and rhythm, S1, S2 without murmur, rub or gallop. ABDOMEN: Soft, nontender, nondistended, normoactive bowel sounds. EXTREMITIES: 2+ pulses, warm, well-perfused, no edema. +L hip w/ dressing, c/d/ i. 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 Pt seen this AM. Pt is to return to the OR per sx on 09/09/19, for I&D L hip and delayed primary closure. #s/p repeat I&D L hip wound (09/04, 09/09) -s/p removal of drain, repeat I&D, delayed primary closure and VAC -for repeat washout today (09/23) -Pain control: on cymbalta, roxicodone q4h PRN per sx , oxycontin per sx -Pt also on lyrica -DVT PPx: -Chemical: ASA 81mg PO BID -Mechanical: SOUTH's, SCD's. -wound cx (+) e. faecalis, sens to amp ; was on unasyn (09/10), switched to augmentin (09/22) -repeat cx ; has been (-) thus far -Incentive spirometry q15 min. -PT/OT/Rehab, OOB. -WBAT RLE; NWB LLE. -Sx: Dr. Moya -ID: Dr. Munoz #HTN -on norvasc 5mg qd #Constipation -c/w senna, colace #Smoking cessation -on nicotine patch (refusing) #F/E/N off IVF continue to follow lytes reg diet #PPX DVT: mechanical SCD's; on asa BID per sx GI: protonix #Dispo monitoring on med-surg all recs per sx d/c tomorrow
--- NOTE | 2019-09-23 16:02 | PN ---
Teaching Attending Note Name of Resident: Cynthia Farah ATTENDING PHYSICIAN STATEMENT I saw and evaluated the patient. I reviewed the resident's note and discussed the case with the resident. I agree with the resident's findings and plan as documented. SUBJECTIVE: Patient has no complaints. OBJECTIVE: Vital Signs Period Temp Pulse Resp BP Sys/Vargas Pulse Ox Last 24 Hr 96.7 F-98.4 F 80-96 18-20 128-164/80-96 99 HEART: S1S2, RRR LUNGS: Clear ABDOMEN: Soft, non-tender, non-distended, normal BS EXTREMITIES: No edema, VAC on left thigh Laboratory Results - last 24 hr 09/22/19 09/23/19 09/23/19 13:10 06:40 06:40 WBC 8.7 RBC 4.58 Hgb 11.1 Hct 34.3 MCV 74.8 L MCH 24.2 L MCHC 32.4 RDW 21.0 H Plt Count 385 MPV 7.1 L Absolute Neuts (auto) 5.8 Neutrophils % 67.1 Lymphocytes % 20.9 D Monocytes % 4.5 Eosinophils % 6.9 H Basophils % 0.6 Nucleated RBC % 0 Anisocytosis 2+ Sodium 138 Potassium 4.5 Chloride 106 Carbon Dioxide 27 Anion Gap 6 L BUN 18.0 Creatinine 0.9 Est GFR (CKD-EPI)AfAm 78.32 Est GFR (CKD-EPI)NonAf 67.57 Random Glucose 99 Calcium 9.1 Total Bilirubin 0.2 AST 13 L ALT 17 Alkaline Phosphatase 128 H Total Protein 7.2 Albumin 3.1 L Current Medications Generic Name Dose Route Start Last Admin Trade Name Freq PRN Reason Stop Dose Admin Al Hydroxide/Mg Hydroxide 30 ml 09/13/19 20:38 Mylanta Oral Suspension - PO Q4H PRN DYSPEPSIA Amoxicillin/Clavulanate Potassium 1 tab 09/22/19 17:30 09/23/19 10:20 Augmentin - 875mg Tablet PO 1 tab BID@0800,1730 ELKE Administration Aspirin 81 mg 09/13/19 22:00 09/23/19 10:21 Asa - PO 81 mg BID ELKE Administration Duloxetine HCl 30 mg 09/13/19 22:00 09/23/19 10:21 Cymbalta - PO 30 mg BID ELKE Administration Lisinopril 20 mg 09/23/19 10:00 09/23/19 10:21 Prinivil PO 20 mg DAILY ELKE Administration Magnesium Hydroxide 30 ml 09/13/19 20:38 09/22/19 22:05 Milk Of Magnesia - PO 30 ml PRN PRN Administration CONSTIPATION Nicotine 7 mg 09/14/19 10:00 09/23/19 10:27 Nicoderm Patch - TD Not Given DAILY ELKE Ondansetron HCl 4 mg 09/13/19 20:38 Zofran Injection IVPUSH Q6H PRN NAUSEA Oxybutynin Chloride 5 mg 09/13/19 22:00 09/23/19 14:24 Ditropan - PO 5 mg TID ELKE Administration Oxycodone HCl 30 mg 09/13/19 20:38 09/23/19 14:27 Roxicodone - PO 30 mg Q4H PRN Administration PAIN LEVEL 7 - 10 Oxycodone HCl 80 mg 09/13/19 22:00 09/23/19 11:20 Oxycontin - PO 80 mg BID ELKE Administration Pantoprazole Sodium 40 mg 09/14/19 10:00 09/23/19 10:21 Protonix - PO 40 mg DAILY ELKE Administration Polyethylene Glycol 17 gm 09/14/19 10:00 09/23/19 10:20 Miralax (For Daily Use) - PO 17 grams DAILY ELKE Administration Pregabalin 100 mg 09/13/19 22:00 09/23/19 14:24 Lyrica - PO 100 mg TID ELKE Administration Senna 1 tab 09/13/19 22:00 09/23/19 10:21 Senna - PO 1 tab BID ELKE Administration ASSESSMENT AND PLAN: This is a 64 year old woman with a history of HTN, depression, anxiety, chronic back pain, urinary incontinence, left total hip replacement, chronic left hip wound who presented for I&D of her left hip wound. 1. 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 faecalis, culture (09/17) negative - continue Augmentin 2. HTN - Continue lisinopril 3. Depression with anxiety - Continue Cymbalta 4. Urinary incontinence - Continue Ditropan 5. Chronic back and left hip pain - Continue Lyrica, Cymbalta, OxyContin, oxycodone as needed 6. Constipation - Continue Senna, Miralax 7. Disposition - Expect discharge tomorrow
--- NOTE | 2019-09-23 16:41 | PN ---
Progress Note (short form) - Note Progress Note: 64F p/w chronic left hip wound. Pain well controlled. No acute events overnight. Pt. denies overnight history of headaches, chest pain, shortness of breath, nausea, vomiting, chills, & sweats. (+) Voiding; (+) Flatus; (+) BM. All labs and vitals reviewed. PE: AAO x 3, NAD. L-Hip: Incision C/D/I w/PDS sutures in place. [place]-incisional skin cleaned. [employer] incisional woundvac applied. NV at baseline B/L LE. 64F p/w chronic left hip wound. -PO Augmentin x [address] Munoz. -Pain control. -DVT PPx: -Mechanical only: SOUTH's, SCD's. -Chemical: ASA 81mg PO qD. -Incentive spirometry q15 min. -PT/OT/Rehab, OOB. -WBAT RLE; NWB LLE. -Diet as tolerated. -Care per medical hospitalist & ID teams. -Discharge planning: home w/VNS & wound care services; f/u 7-10 days after rehab [facility]; call for appointment; . -Will follow. Albert Moya MD (Orthopaedic Surgery).
[2019-09-24] MEDS: OXYBUTYNIN CHLORIDE 5 MG TABLET PO SCH ×3 (05:36→22:10)
[2019-09-24] MEDS: oxyCODONE HCL 5 MG TABLET PO PRN ×5 (05:36→22:11)
[2019-09-24] MEDS: PREGABALIN 100 MG CAPSULE PO SCH ×3 (05:36→22:10)
[2019-09-24] MEDS: AMOX TR/POT CLAV 875MG/125MG TABLETS (FP) PO SCH ×2 (08:53→17:46)
[2019-09-24] MEDS: POLYETHYLENE GLYCOL 3350 119 GM BTL PO SCH (09:43)
[2019-09-24] MEDS: LISINOPRIL 20 MG TABLET (FP) PO SCH (09:43)
[2019-09-24] MEDS: SENNOSIDES 8.6MG TABLET (FP) PO SCH ×2 (09:44→22:11)
[2019-09-24] MEDS: PANTOPRAZOLE 40 MG TABLET (FP) PO SCH (09:44)
[2019-09-24] MEDS: DULoxetine HCL 30 MG CAPSULE.DR PO SCH ×2 (09:44→22:10)
[2019-09-24] MEDS: ASPIRIN 81 MG CHEWABLE TABLETS PO SCH ×2 (09:44→22:11)
[2019-09-24] MEDS: NICOTINE 7 MG/24 HOURS TOPICAL PATCH TD SCH (09:44)
[2019-09-24] MEDS: oxyCODONE HCL 80 MG SUSTAINED ACTING TABLET PO SCH (10:29)
--- NOTE | 2019-09-24 11:43 | PN ---
Progress Note, Physician History of Present Illness: stable no new issues - Current Medication List Current Medications: Active Medications Al Hydroxide/Mg Hydroxide (Mylanta Oral Suspension -) 30 ml PO Q4H PRN PRN Reason: DYSPEPSIA Amoxicillin/Clavulanate Potassium (Augmentin - 875mg Tablet) 1 tab PO BID@0800, 1730 [facility] Last Admin: 09/24/19 08:53 Dose: 1 tab Aspirin (Asa -) 81 mg PO BID [facility] Last Admin: 09/24/19 09:44 Dose: 81 mg Duloxetine HCl (Cymbalta -) 30 mg PO BID [facility] Last Admin: 09/24/19 09:44 Dose: 30 mg Lisinopril (Prinivil) 20 mg PO DAILY [facility] Last Admin: 09/24/19 09:43 Dose: 20 mg Magnesium Hydroxide (Milk Of Magnesia -) 30 ml PO PRN PRN PRN Reason: CONSTIPATION Last Admin: 09/22/19 22:05 Dose: 30 ml Nicotine (Nicoderm Patch -) 7 mg TD DAILY [facility] Last Admin: 09/24/19 09:44 Dose: Not Given Ondansetron HCl (Zofran Injection) 4 mg IVPUSH Q6H PRN PRN Reason: NAUSEA Oxybutynin Chloride (Ditropan -) 5 mg PO TID [facility] Last Admin: 09/24/19 05:36 Dose: 5 mg Oxycodone HCl (Oxycontin -) 80 mg PO BID [facility] Last Admin: 09/24/19 10:29 Dose: 80 mg Oxycodone HCl (Roxicodone -) 30 mg PO Q4H PRN PRN Reason: PAIN LEVEL 7 - 10 Last Admin: 09/24/19 08:59 Dose: 30 mg Pantoprazole Sodium (Protonix -) 40 mg PO DAILY [facility] Last Admin: 09/24/19 09:44 Dose: 40 mg Polyethylene Glycol (Miralax (For Daily Use) -) 17 gm PO DAILY [facility] Last Admin: 09/24/19 09:43 Dose: 17 grams Pregabalin (Lyrica -) 100 mg PO TID [facility] Last Admin: 09/24/19 05:36 Dose: 100 mg Senna (Senna -) 1 tab PO BID [facility] Last Admin: 09/24/19 09:44 Dose: 1 tab - Objective Vital Signs: Vital Signs Temperature 99 F 09/24/19 09:47 Pulse Rate 94 H 09/24/19 09:47 Respiratory Rate 18 09/24/19 09:47 Blood Pressure 113/72 09/24/19 09:47 O2 Sat by Pulse Oximetry (%) 99 09/22/19 21:00 Constitutional: Yes: No Distress, Calm Cardiovascular: Yes: S1, S2 Respiratory: Yes: Regular, CTA Bilaterally Gastrointestinal: Yes: Normal Bowel Sounds, Soft Musculoskeletal: Yes: WNL Extremities: Yes: Other Neurological: Yes: Alert, Oriented Psychiatric: Yes: Alert, Oriented Labs: CBC, BMP 09/23/19 06:40 09/23/19 06:40 Assessment/Plan Problem List - Problems (1) Anemia Code(s): D64.9 - ANEMIA, UNSPECIFIED (2) Chronic pain Code(s): G89.29 - OTHER CHRONIC PAIN (3) Depression Code(s): F32.9 - MAJOR DEPRESSIVE DISORDER, SINGLE EPISODE, UNSPECIFIED (4) HTN (hypertension) Code(s): I10 - ESSENTIAL (PRIMARY) HYPERTENSION (5) Infection of lower extremity associated with hardware Code(s): T84.7XXA - INFECT/INFLM REACT DUE TO OTH INT ORTH PROSTH DEV/GRFT, INIT (6) Wound, open, hip or thigh Code(s): QIT4386 - Assessment/Plan 64 y/o F with hx L total hip arthroplasty s/p washout and wound vac, multiple drug resistant bacteria (most recently, 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 plan continue current mgmt abx patient refused surgery for one more week
--- NOTE | 2019-09-24 14:17 | PN ---
Teaching Attending Note Name of Resident: Cynthia Farah ATTENDING PHYSICIAN STATEMENT I saw and evaluated the patient. I reviewed the resident's note and discussed the case with the resident. I agree with the resident's findings and plan as documented. SUBJECTIVE: No complaints. OBJECTIVE: Vital Signs Period Temp Pulse Resp BP Sys/Vargas Pulse Ox Last 24 Hr 99 F-99 F 94-122 18-20 112-159/72-97 HEART: S1S2, RRR LUNGS: Clear ABDOMEN: Soft, non-tender, non-distended, normal BS EXTREMITIES: No edema, VAC on left thigh Current Medications Generic Name Dose Route Start Last Admin Trade Name Freq PRN Reason Stop Dose Admin Al Hydroxide/Mg Hydroxide 30 ml 09/13/19 20:38 Mylanta Oral Suspension - PO Q4H PRN DYSPEPSIA Amoxicillin/Clavulanate Potassium 1 tab 09/22/19 17:30 09/24/19 08:53 Augmentin - 875mg Tablet PO 1 tab BID@0800,1730 ELKE Administration Aspirin 81 mg 09/13/19 22:00 09/24/19 09:44 Asa - PO 81 mg BID ELKE Administration Duloxetine HCl 30 mg 09/13/19 22:00 09/24/19 09:44 Cymbalta - PO 30 mg BID ELKE Administration Lisinopril 20 mg 09/23/19 10:00 09/24/19 09:43 Prinivil PO 20 mg DAILY ELKE Administration Magnesium Hydroxide 30 ml 09/13/19 20:38 09/22/19 22:05 Milk Of Magnesia - PO 30 ml PRN PRN Administration CONSTIPATION Nicotine 7 mg 09/14/19 10:00 09/24/19 09:44 Nicoderm Patch - TD Not Given DAILY ELKE Ondansetron HCl 4 mg 09/13/19 20:38 Zofran Injection IVPUSH Q6H PRN NAUSEA Oxybutynin Chloride 5 mg 09/13/19 22:00 09/24/19 13:42 Ditropan - PO 5 mg TID ELKE Administration Oxycodone HCl 80 mg 09/13/19 22:00 09/24/19 10:29 Oxycontin - PO 80 mg BID ELKE Administration Oxycodone HCl 30 mg 09/23/19 20:10 09/24/19 13:42 Roxicodone - PO 30 mg Q4H PRN Administration PAIN LEVEL 7 - 10 Pantoprazole Sodium 40 mg 09/14/19 10:00 09/24/19 09:44 Protonix - PO 40 mg DAILY ELKE Administration Polyethylene Glycol 17 gm 09/14/19 10:00 09/24/19 09:43 Miralax (For Daily Use) - PO 17 grams DAILY ELKE Administration Pregabalin 100 mg 09/13/19 22:00 09/24/19 13:42 Lyrica - PO 100 mg TID ELKE Administration Senna 1 tab 09/13/19 22:00 09/24/19 09:44 Senna - PO 1 tab BID ELKE Administration ASSESSMENT AND PLAN: This is a 64 year old woman with a history of HTN, depression, anxiety, chronic back pain, urinary incontinence, left total hip replacement, chronic left hip wound who presented for I&D of her left hip wound. 1. 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 faecalis - Culture (09/17) negative - Continue Augmentin 2. HTN - Continue lisinopril 3. Depression with anxiety - Continue Cymbalta 4. Urinary incontinence - Continue Ditropan 5. Chronic back and left hip pain - Continue Lyrica, Cymbalta, OxyContin, oxycodone as needed 6. Constipation - Continue Senna, Miralax 7. Disposition - Ok for discharge home
--- NOTE | 2019-09-24 16:14 | DS ---
Physical Exam: SUBJECTIVE: Patient seen and examined at bedside. Lying in bed, without complaint. D/w ortho office, pt was left a message for cannister delivery and all is set up per staff. D/w pt. Expressed verbal understanding OBJECTIVE: Vital Signs Period Temp Pulse Resp BP Sys/Vargas Pulse Ox Last 24 Hr 99 F-99 F 94-122 18-20 112-159/72-97 Physical Exam GENERAL: driving scooter. in NAD HEAD: Normal with no signs of trauma. LUNGS: CTA b/l . no accessory m usage HEART: Regular rate and rhythm, S1, S2 without murmur, rub or gallop. ABDOMEN: Soft, nontender, nondistended, normoactive bowel sounds. EXTREMITIES: 2+ pulses, warm, well-perfused, no edema. +L hip w/ dressing, c/d/ i. +VAC SKIN: Warm, dry, normal turgor, no rashes or lesions noted LABS 09/06/19 09/07/19 09/08/19 07:20 07:26 08:00 WBC 8.7 10.1 H Hgb 10.8 11.8 Hct 33.4 37.1 Plt Count 370 372 387 ESR 09/10/19 09/13/19 09/14/19 06:45 06:00 14:40 WBC 6.9 12.5 H Hgb 10.4 L 10.2 L Hct 32.0 L 31.8 L Plt Count 270 332 D ESR 74 H 09/16/19 09/16/19 09/17/19 07:25 07:25 07:00 WBC 8.5 9.1 Hgb Hct Plt Count 321 ESR 55 H 09/18/19 09/19/19 09/20/19 07:45 14:20 09:05 WBC 12.6 H 10.5 H 10.3 H Hgb 10.1 L 11.1 11.1 Hct 31.6 L 34.0 34.1 Plt Count 396 395 409 ESR 09/21/19 09/22/19 09/23/19 08:45 13:10 06:40 WBC 10.9 H 11.2 H 8.7 Hgb 11.7 11.3 11.1 Hct 36.2 35.9 34.3 Plt Count 406 419 385 ESR 09/06/19 09/07/19 09/08/19 07:20 07:26 08:00 Sodium 140 Potassium 5.2 H Chloride 108 H Carbon Dioxide 25 Anion Gap 7 L BUN 25.0 H Creatinine 1.4 H 1.1 AST 12 L Alkaline Phosphatase 120 H C-Reactive Protein 09/14/19 09/15/19 09/18/19 14:40 12:55 07:45 Sodium 138 Potassium 4.3 Chloride 105 Carbon Dioxide 27 Anion Gap BUN 13.6 Creatinine 0.9 AST Alkaline Phosphatase C-Reactive Protein 1.9 H 1.8 H 09/19/19 09/20/19 09/21/19 14:20 09:05 08:45 Sodium 138 140 139 Potassium 3.7 4.0 4.2 Chloride 106 108 H 106 Carbon Dioxide 24 26 25 Anion Gap BUN 16.2 14.4 16.2 Creatinine 0.9 0.9 AST Alkaline Phosphatase C-Reactive Protein 09/22/19 09/23/19 13:10 06:40 Sodium 138 138 Potassium 4.4 4.5 Chloride 106 Carbon Dioxide 27 Anion Gap BUN 18.8 H 18.0 Creatinine 1.0 0.9 AST Alkaline Phosphatase C-Reactive Protein Microbiology 09/17/19 16:00 Hip - Left Gram Stain - Final 09/17/19 16:00 Hip - Left Wound Culture - Final NO GROWTH OF AEROBIC ORGANISMS AFTER 48 HOURS INCUBATION 09/09/19 11:20 Hip - Left Gram Stain - Final 09/09/19 11:20 Hip - Left Wound Culture - Final Enterococcus Faecalis 09/09/19 11:20 Hip - Left Gram Stain - Final 09/09/19 11:20 Hip - Left Wound Culture - Final Enterococcus Faecalis 09/09/19 11:20 Hip - Left Gram Stain - Final 09/09/19 11:20 Hip - Left Wound Culture - Final Enterococcus Faecalis 09/04/19 18:00 Hip - Left Gram Stain - Final 09/04/19 18:00 Hip - Left Wound Culture - Final NO GROWTH OF AEROBIC ORGANISMS AFTER 48 HOURS INCUBATION HOSPITAL COURSE: Date of Admission:09/04/19 Date of Discharge: 09/24/19 ASSESSMENT/PLAN: 64 y/o F with hx L total hip arthroplasty s/p washout and wound vac, multiple drug resistant bacteria (most recently, 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 Pt seen this AM. Pt is to return to the OR per sx on 09/09/19, for I&D L hip and delayed primary closure. #s/p repeat I&D L hip wound (09/04, 09/09) -s/p removal of drain, repeat I&D, delayed primary closure and VAC -Pain control: on cymbalta, roxicodone q4h PRN per sx , oxycontin per sx -Pt also on lyrica -DVT PPx: -Chemical: ASA 81mg qd on d/c , per surgery. discussed w/ Dr. Moya today -Mechanical: SOUTH's, SCD's. -wound cx (+) e. faecalis, sens to amp ; was on unasyn (09/10), switched to augmentin (09/22) for additional 1 week course to be d/c on -repeat cx ; has been (-) thus far -Incentive spirometry q15 min. -PT/OT/Rehab, OOB. -WBAT RLE; NWB LLE. -to f/u with Dr. Moya and ID, Dr. Munoz on d/c [facility] [place] office; call for appointment; . #HTN -on lisinopril 20mg qd - to c/w on d/c #Constipation -c/w senna, colace #Smoking cessation -on nicotine patch (refusing) #D/c planning d/w orthopedic office, pt received message on cell phone about cannister delivery and all has been set up. d/w pt Minutes to complete discharge: 45 Discharge Summary Problems reviewed: Yes Reason For Visit: LT HIP MACHANICAL LOOSENING Condition: Good - Instructions Diet, Activity, Other Instructions: You were in the hospital because you had surgery and washout done on your chronic left hip wound. You improved and are being sent home. Medications 1. Please take augmentin 875mg (1 pill) twice a day, starting tomorrow for 1 week to complete your antibiotic course 2. Continue to take your home pain control prescribed by your surgeon, of oxycontin and roxicodone 3. Continue with your anticoagulation of aspirin 81mg daily (baby aspirin) per your surgeon to avoid blood clots. (not twice a day which you were on previously ) 4. You may continue your other home medications; note: lisinopril 20mg was started for your high blood pressure. Your norvasc medication was discontinued. Care Per Dr. Moya, you can continue with physical therapy, occupational therapy and rehab as an outpatient. You will go home with VNS and wound care services Discussed with your orthopedic office, the cannisters for your wound vac have been arranged for you. You can weight bear on your right leg, however try to avoid weight bearing on your left leg. Continue with your diet as tolerated. You now have a portable vac. You will discuss its maintenance with your surgeon. Follow up Please see the following doctors upon your discharge: -Dr. Moya, your surgeon - in 7-10 days after your rehab discharge: [facility] [place] office; call for appointment; [phone]. -Dr. Munoz, your infectious disease doctor - 1 week to check on your progress. Referrals: Kinga Munoz MD [Staff Physician] - 1 Week Albert Moya MD [Staff Physician] - 1 Week Disposition: HOME - Home Medications Comprehensive Discharge Medication List: Ambulatory Orders Omeprazole 40 mg PO DAILY 08/24/18 Oxybutynin Chloride 5 mg PO TID 08/24/18 Duloxetine HCl [Cymbalta] 30 mg PO BID 15 Days #30 capsule. 03/19/19 Pregabalin [Lyrica] 100 mg PO TID #30 capsule MDD 3 03/19/19 Oxycodone HCl [Oxycontin] 80 mg PO BID 08/06/19 Docusate Sodium [Colace -] 100 mg PO DAILY #30 capsule 08/26/19 Nicotine Patch [Nicoderm Patch -] 7 mg TD DAILY PRN #30 patch 08/26/19 Polyethylene Glycol 3350 [Miralax 119 gm Btl -] 17 gm PO DAILY #1 bottle Sennosides [Senna -] 1 tab PO BID 30 Days tablet 08/26/19 Amox-Tr/K Cl [Augmentin 875-125mg Tablet -] 1 tab PO BID@0800,1730 #14 tablet Aspirin [ASA -] 81 mg PO DAILY #30 tab.chew 09/24/19 Lisinopril [Prinivil] 20 mg PO DAILY #30 tablet 09/24/19 oxyCODONE HCL [Roxicodone -] 30 mg PO Q4H PRN tablet MDD 180mg 09/24/19 This patient is new to me today: No Emergency Visit: No Critical Care patient: No - Discharge Referral Referred to [facility] Med P.C.: No
[2019-09-25] MEDS: oxyCODONE HCL 80 MG SUSTAINED ACTING TABLET PO SCH ×2 (00:04→11:08)
[2019-09-25] MEDS: oxyCODONE HCL 5 MG TABLET PO PRN ×5 (02:05→18:27)
[2019-09-25] MEDS: PREGABALIN 100 MG CAPSULE PO SCH ×2 (06:12→14:29)
[2019-09-25] MEDS: OXYBUTYNIN CHLORIDE 5 MG TABLET PO SCH ×2 (06:12→14:29)
[2019-09-25] MEDS: ASPIRIN 81 MG CHEWABLE TABLETS PO SCH (09:41)
[2019-09-25] MEDS: DULoxetine HCL 30 MG CAPSULE.DR PO SCH (09:41)
[2019-09-25] MEDS: AMOX TR/POT CLAV 875MG/125MG TABLETS (FP) PO SCH ×2 (09:41→17:13)
[2019-09-25] MEDS: SENNOSIDES 8.6MG TABLET (FP) PO SCH (09:42)
[2019-09-25] MEDS: LISINOPRIL 20 MG TABLET (FP) PO SCH (09:42)
[2019-09-25] MEDS: PANTOPRAZOLE 40 MG TABLET (FP) PO SCH (09:42)
[2019-09-25] MEDS: NICOTINE 7 MG/24 HOURS TOPICAL PATCH TD SCH (09:42)
[2019-09-25] MEDS: POLYETHYLENE GLYCOL 3350 119 GM BTL PO SCH (09:44)
--- NOTE | 2019-09-25 11:58 | PN ---
Progress Note, Physician History of Present Illness: patient stable no new issues - Current Medication List Current Medications: Active Medications Al Hydroxide/Mg Hydroxide (Mylanta Oral Suspension -) 30 ml PO Q4H PRN PRN Reason: DYSPEPSIA Amoxicillin/Clavulanate Potassium (Augmentin - 875mg Tablet) 1 tab PO BID@0800, 1730 [facility] Last Admin: 09/25/19 09:41 Dose: 1 tab Aspirin (Asa -) 81 mg PO BID [facility] Last Admin: 09/25/19 09:41 Dose: 81 mg Duloxetine HCl (Cymbalta -) 30 mg PO BID [facility] Last Admin: 09/25/19 09:41 Dose: 30 mg Lisinopril (Prinivil) 20 mg PO DAILY [facility] Last Admin: 09/25/19 09:42 Dose: 20 mg Magnesium Hydroxide (Milk Of Magnesia -) 30 ml PO PRN PRN PRN Reason: CONSTIPATION Last Admin: 09/22/19 22:05 Dose: 30 ml Nicotine (Nicoderm Patch -) 7 mg TD DAILY [facility] Last Admin: 09/25/19 09:42 Dose: Not Given Ondansetron HCl (Zofran Injection) 4 mg IVPUSH Q6H PRN PRN Reason: NAUSEA Oxybutynin Chloride (Ditropan -) 5 mg PO TID [facility] Last Admin: 09/25/19 06:12 Dose: 5 mg Oxycodone HCl (Oxycontin -) 80 mg PO BID [facility] Last Admin: 09/25/19 11:08 Dose: 80 mg Oxycodone HCl (Roxicodone -) 30 mg PO Q4H PRN PRN Reason: PAIN LEVEL 7 - 10 Last Admin: 09/25/19 10:11 Dose: 30 mg Pantoprazole Sodium (Protonix -) 40 mg PO DAILY [facility] Last Admin: 09/25/19 09:42 Dose: 40 mg Polyethylene Glycol (Miralax (For Daily Use) -) 17 gm PO DAILY [facility] Last Admin: 09/25/19 09:44 Dose: 17 grams Pregabalin (Lyrica -) 100 mg PO TID [facility] Last Admin: 09/25/19 06:12 Dose: 100 mg Senna (Senna -) 1 tab PO BID [facility] Last Admin: 09/25/19 09:42 Dose: 1 tab - Objective Vital Signs: Vital Signs Temperature 98.8 F 09/25/19 06:24 Pulse Rate 93 H 09/25/19 06:24 Respiratory Rate 20 09/25/19 06:24 Blood Pressure 135/75 09/25/19 06:24 O2 Sat by Pulse Oximetry (%) 99 09/22/19 21:00 Constitutional: Yes: No Distress, Calm Cardiovascular: Yes: Regular Rate and Rhythm Respiratory: Yes: Regular, CTA Bilaterally Gastrointestinal: Yes: Normal Bowel Sounds, Soft Musculoskeletal: Yes: Other Extremities: Yes: Other Neurological: Yes: Alert, Oriented Psychiatric: Yes: Alert, Oriented Labs: CBC, BMP 09/23/19 06:40 09/23/19 06:40 Assessment/Plan Problem List - Problems (1) Anemia Code(s): D64.9 - ANEMIA, UNSPECIFIED (2) Chronic pain Code(s): G89.29 - OTHER CHRONIC PAIN (3) Depression Code(s): F32.9 - MAJOR DEPRESSIVE DISORDER, SINGLE EPISODE, UNSPECIFIED (4) HTN (hypertension) Code(s): I10 - ESSENTIAL (PRIMARY) HYPERTENSION (5) Infection of lower extremity associated with hardware Code(s): T84.7XXA - INFECT/INFLM REACT DUE TO OTH INT ORTH PROSTH DEV/GRFT, INIT (6) Wound, open, hip or thigh Code(s): [id number] - Assessment/Plan 64 y/o F with hx L total hip arthroplasty s/p washout and wound vac, multiple drug resistant bacteria (most recently, 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 plan continue current mgmt abx patient refused surgery for one more week
[2019-09-25 17:30] VITALS: BP 151/81; PULSE 112; TEMP 98
== END 2019-09-25 19:29 | disposition home or self-care (01) | DRG 940 ==
LOC: JASU-SURG 14:48 → J8W 20:29 → JASU-SURG 20:30 → J8W 20:30
PROVIDERS: ADMIT Orthopaedic Surgery Orthopaedic Surgery of the Spine; ATTEND Internal Medicine
PROC: 0J9M0ZZ Drainage of Left Upper Leg Subcutaneous Tissue and Fascia, Open Approach (ICD-10-PCS; 2019-09-04)
PROC: 2W1MX6Z Compression of Left Lower Extremity using Pressure Dressing (ICD-10-PCS; 2019-09-04)
PROC: 0YP Anatomical Regions, Lower Extremities, Removal (ICD-10-PCS; 2019-09-04)
PROC: 0JQM0ZZ Repair Left Upper Leg Subcutaneous Tissue and Fascia, Open Approach (ICD-10-PCS; principal; 2019-09-04 15:30)
PROC: 0JQM0ZZ Repair Left Upper Leg Subcutaneous Tissue and Fascia, Open Approach (ICD-10-PCS; 2019-09-09)
PROC: 2W5PX6Z Removal of Pressure Dressing on Left Upper Leg (ICD-10-PCS; 2019-09-09)
PROC: 0J9M0ZZ Drainage of Left Upper Leg Subcutaneous Tissue and Fascia, Open Approach (ICD-10-PCS; 2019-09-13)
PROC: 0JDM0ZZ Extraction of Left Upper Leg Subcutaneous Tissue and Fascia, Open Approach (ICD-10-PCS; 2019-09-17)
PROC: 0JDM0ZZ Extraction of Left Upper Leg Subcutaneous Tissue and Fascia, Open Approach (ICD-10-PCS; 2019-09-17)
PROC: 0Y9J00Z Drainage of Left Lower Leg with Drainage Device, Open Approach (ICD-10-PCS; 2019-09-17)
PROC: 2W1MX6Z Compression of Left Lower Extremity using Pressure Dressing (ICD-10-PCS; 2019-09-17)
DX: T81.42XD Infection following a procedure, deep incisional surgical site, subsequent encounter (principal); L97.128 Non-pressure chronic ulcer of left thigh with other specified severity; T81.32XD Disruption of internal operation (surgical) wound, not elsewhere classified, subsequent encounter; M32.9 Systemic lupus erythematosus, unspecified; K59.03 Drug induced constipation; B95.2 Enterococcus as the cause of diseases classified elsewhere; I10 Essential (primary) hypertension; N32.81 Overactive bladder; F41.8 Other specified anxiety disorders; G89.29 Other chronic pain; D64.9 Anemia, unspecified; T40.2X5A Adverse effect of other opioids, initial encounter; E66.9 Obesity, unspecified; Z68.30 Body mass index [BMI] 30.0-30.9, adult
CPT/HCPCS: 36415; 80048; 80053; 83735; 84100; 85025; 85651; 86140; 87070; 87186; 87205; 94760; 97116-GP; 97161-GP

== ENCOUNTER 2020-07-26 08:11 | Inpatient (IN) | payer OTHER ==
[2020-07-26] MEDS ORDERED: oxyCODONE HCL 80 MG SUSTAINED ACTING TABLET PO ONE (08:54)
[2020-07-26] MEDS ORDERED: oxyCODONE HCL 40 MG SUSTAINED ACTING TABLET PO ONE (09:15)
[2020-07-26 10:43] LABS: BASO % 0.3 % (0-2.0); EOS % 5.7 % (0-4.5); HEMATOCRIT 35.1 % (32.4-45.2); HEMOGLOBIN 11.5 GM/dL (10.7-15.3); LYMPH % 25.5 % (8-40); MCH 25.1 pg (25.7-33.7); MCHC 32.7 g/dl (32.0-36.0); MEAN CELL VOLUME 76.8 fl (80-96); MEAN PLT VOLUME 7.2 fl (7.5-11.1); MONO % 4.4 % (3.8-10.2); NEUT % 64.1 % (42.8-82.8); PLATELET COUNT 367 K/MM3 (134-434); RBC 4.57 M/mm3 (3.60-5.2); RDW 17.3 % (11.6-15.6); WHITE BLOOD COUNT 10.3 K/mm3 (4.0-10.0)
[2020-07-26 10:44] LABS: EPI CELLS 13 /uL (0-25.1); HYALINE CASTS 0 /uL (0-3.1); URINE APPEARANCE CLEAR; URINE BACTERIA 8 /uL (0-1359); URINE BILIRUBIN NEGATIVE (NEGATIVE); URINE COLOR YELLOW; URINE GLUCOSE (UA) NEGATIVE (NEGATIVE); URINE KETONE NEGATIVE (NEGATIVE); URINE LEUK ESTERASE TRACE (NEGATIVE); URINE NITRITE NEGATIVE (NEGATIVE); URINE PROTEIN NEGATIVE (NEGATIVE); URINE RBC 4 /uL (0-23.9); URINE UROBILINOGEN 0.2 mg/dL (0.2-1.0); URINE WBC 38 /uL (0-25.8)
[2020-07-26 10:49] LABS: INR 0.97 (0.83-1.09); PROTHROMBIN TIME (PATIENT) 11.7 SEC (9.7-13.0)
[2020-07-26 10:52] LABS: ACTIVATED PTT 20.8 SECONDS (25.2-36.5)
[2020-07-26 11:11] LABS: POTASSIUM 3.8 mmol/L (3.5-5.1)
[2020-07-26 11:12] LABS: CALCIUM 9.1 mg/dL (8.5-10.1)
[2020-07-26 11:13] LABS: ALBUMIN 3.9 g/dl (3.4-5.0); BLOOD UREA NITROGEN 15.9 mg/dL (7-18)
[2020-07-26 11:16] LABS: CREATININE 0.8 mg/dL (0.55-1.3)
[2020-07-26 11:18] LABS: BILIRUBIN,TOTAL 0.2 mg/dL (0.2-1); TOT PROT 7.9 g/dl (6.4-8.2)
[2020-07-26] MEDS ORDERED: POLYETHYLENE GLYCOL 3350 119 GM BTL PO PRN (13:13)
[2020-07-26] MEDS ORDERED: ACETAMINOPHEN 1000 MG/100 ML VIAL (NON FORMULARY) IVPB PRN (13:33)
[2020-07-26] MEDS ORDERED: PREGABALIN 100 MG CAPSULE ONE (14:35)
[2020-07-26] MEDS: PREGABALIN 100 MG CAPSULE PO SCH ×2 (14:43→21:06)
[2020-07-26] MEDS ORDERED: oxyCODONE HCL 5 MG TABLET ONE (14:45)
[2020-07-26] MEDS: oxyCODONE HCL 5 MG TABLET PO PRN ×2 (14:55→20:36)
[2020-07-26] MEDS: OXYBUTYNIN CHLORIDE 5 MG TABLET PO SCH ×2 (16:04→21:06)
[2020-07-26] MEDS: NICOTINE 7 MG/24 HOURS TOPICAL PATCH TD SCH (16:04)
[2020-07-26 20:35] VITALS: BMI 28.9
[2020-07-26] MEDS: AMPICILLIN NA/SULBACTAM NA 3 GM in SODIUM CHLORIDE 100 ML IVPB SCH (20:35)
[2020-07-26] MEDS: SENNOSIDES 8.6MG TABLET (FP) PO SCH (21:06)
[2020-07-26] MEDS: DULoxetine HCL 30 MG CAPSULE.DR PO SCH (21:06)
[2020-07-27] MEDS: oxyCODONE HCL 5 MG TABLET PO PRN ×5 (00:13→22:02)
[2020-07-27] MEDS: AMPICILLIN NA/SULBACTAM NA 3 GM in SODIUM CHLORIDE 100 ML IVPB SCH ×2 (02:22→09:05)
[2020-07-27] MEDS: PREGABALIN 100 MG CAPSULE PO SCH ×3 (05:32→22:01)
[2020-07-27] MEDS: OXYBUTYNIN CHLORIDE 5 MG TABLET PO SCH ×3 (05:32→22:01)
[2020-07-27] MEDS: DOCUSATE SODIUM 100 MG CAPSULE (FP) PO SCH (09:05)
[2020-07-27] MEDS: SENNOSIDES 8.6MG TABLET (FP) PO SCH ×2 (09:06→22:03)
[2020-07-27] MEDS: DULoxetine HCL 30 MG CAPSULE.DR PO SCH ×3 (09:06→22:01)
[2020-07-27] MEDS: NICOTINE 7 MG/24 HOURS TOPICAL PATCH TD SCH (09:06)
[2020-07-27] MEDS: LISINOPRIL 20 MG TABLET PO SCH (09:46)
[2020-07-27] MEDS ORDERED: oxyCODONE HCL 40 MG SUSTAINED ACTING TABLET PO ONE (10:46)
[2020-07-27] MEDS: PANTOPRAZOLE 40 MG TABLET PO SCH (10:59)
[2020-07-27] MEDS ORDERED: PT OWN MED DRAWER 7, Y5N ONE ×2 (14:48→21:53)
[2020-07-27] MEDS: AMOX TR/POT CLAV 875MG/125MG TABLETS (FP) PO SCH ×2 (18:01→19:11)
[2020-07-27] MEDS: oxyCODONE HCL 40 MG SUSTAINED ACTING TABLET PO SCH (22:02)
[2020-07-28] MEDS ORDERED: PT OWN MED DRAWER 7, Y5N ONE ×3 (02:19→14:51)
[2020-07-28] MEDS: PREGABALIN 100 MG CAPSULE PO SCH ×3 (06:11→21:06)
[2020-07-28] MEDS: OXYBUTYNIN CHLORIDE 5 MG TABLET PO SCH ×3 (06:12→21:05)
[2020-07-28] MEDS: oxyCODONE HCL 5 MG TABLET PO PRN ×3 (06:16→21:54)
[2020-07-28] MEDS: AMOX TR/POT CLAV 875MG/125MG TABLETS (FP) PO SCH (10:02)
[2020-07-28] MEDS: DOCUSATE SODIUM 100 MG CAPSULE (FP) PO SCH (12:24)
[2020-07-28] MEDS: SENNOSIDES 8.6MG TABLET (FP) PO SCH ×2 (12:25→21:05)
[2020-07-28] MEDS: LISINOPRIL 20 MG TABLET PO SCH (12:25)
[2020-07-28] MEDS: oxyCODONE HCL 40 MG SUSTAINED ACTING TABLET PO SCH ×2 (12:25→21:04)
[2020-07-28] MEDS: DULoxetine HCL 30 MG CAPSULE.DR PO SCH ×2 (12:25→21:06)
[2020-07-28] MEDS: NICOTINE 7 MG/24 HOURS TOPICAL PATCH TD SCH (12:25)
[2020-07-28] MEDS: PANTOPRAZOLE 40 MG TABLET PO SCH (12:25)
[2020-07-28] MEDS ORDERED: levoFLOXacin 750 MG TABLET PO SCH (12:30)
[2020-07-28] MEDS: levoFLOXacin 500 MG, levoFLOXacin 250 MG PO SCH (14:54)
[2020-07-28] MEDS ORDERED: DULoxetine HCL 30 MG CAPSULE.DR PO ONE (15:08)
[2020-07-29] MEDS: oxyCODONE HCL 5 MG TABLET PO PRN ×4 (02:38→21:14)
[2020-07-29] MEDS: levoFLOXacin 500 MG, levoFLOXacin 250 MG PO SCH (05:04)
[2020-07-29] MEDS: PREGABALIN 100 MG CAPSULE PO SCH ×3 (05:04→23:48)
[2020-07-29] MEDS: OXYBUTYNIN CHLORIDE 5 MG TABLET PO SCH ×3 (05:04→23:47)
[2020-07-29 08:34] LABS: BASO % 0.6 % (0-2.0); EOS % 5.5 % (0-4.5); HEMATOCRIT 33.5 % (32.4-45.2); HEMOGLOBIN 10.8 GM/dL (10.7-15.3); LYMPH % 25.8 % (8-40); MCH 24.9 pg (25.7-33.7); MCHC 32.3 g/dl (32.0-36.0); MEAN CELL VOLUME 76.9 fl (80-96); MEAN PLT VOLUME 7.4 fl (7.5-11.1); MONO % 5.8 % (3.8-10.2); NEUT % 62.3 % (42.8-82.8); PLATELET COUNT 343 K/MM3 (134-434); RBC 4.36 M/mm3 (3.60-5.2); RDW 17.5 % (11.6-15.6); WHITE BLOOD COUNT 7.8 K/mm3 (4.0-10.0)
[2020-07-29 08:40] LABS: INR 1.04 (0.83-1.09); PROTHROMBIN TIME (PATIENT) 12.8 SEC (9.7-13.0)
[2020-07-29] MEDS: DOCUSATE SODIUM 100 MG CAPSULE (FP) PO SCH (09:00)
[2020-07-29] MEDS: LISINOPRIL 20 MG TABLET PO SCH (09:00)
[2020-07-29] MEDS: oxyCODONE HCL 40 MG SUSTAINED ACTING TABLET PO SCH ×2 (09:00→23:48)
[2020-07-29] MEDS: SENNOSIDES 8.6MG TABLET (FP) PO SCH ×2 (09:00→23:48)
[2020-07-29] MEDS: PANTOPRAZOLE 40 MG TABLET PO SCH (09:00)
[2020-07-29] MEDS: DULoxetine HCL 30 MG CAPSULE.DR PO SCH ×2 (09:00→23:47)
[2020-07-29] MEDS: NICOTINE 7 MG/24 HOURS TOPICAL PATCH TD SCH (09:08)
[2020-07-29 09:09] LABS: POTASSIUM 4.1 mmol/L (3.5-5.1)
[2020-07-29 09:14] LABS: ALBUMIN 3.4 g/dl (3.4-5.0); CALCIUM 9.1 mg/dL (8.5-10.1)
[2020-07-29 09:15] LABS: BLOOD UREA NITROGEN 23.9 mg/dL (7-18); MAGNESIUM 2.3 mg/dL (1.8-2.4)
[2020-07-29 09:18] LABS: CREATININE 1.1 mg/dL (0.55-1.3); PHOSPHOROUS 4.2 mg/dL (2.5-4.9)
[2020-07-29 09:19] LABS: BILIRUBIN,TOTAL 0.3 mg/dL (0.2-1); TOT PROT 7.2 g/dl (6.4-8.2)
[2020-07-30] MEDS ORDERED: PT OWN MED DRAWER 7, Y5N ONE ×3 (06:45→21:26)
[2020-07-30] MEDS: oxyCODONE HCL 5 MG TABLET PO PRN ×3 (06:50→19:12)
[2020-07-30] MEDS: levoFLOXacin 500 MG, levoFLOXacin 250 MG PO SCH (06:50)
[2020-07-30] MEDS: PREGABALIN 100 MG CAPSULE PO SCH ×3 (06:50→21:30)
[2020-07-30] MEDS: OXYBUTYNIN CHLORIDE 5 MG TABLET PO SCH ×3 (06:50→21:30)
[2020-07-30] MEDS: DOCUSATE SODIUM 100 MG CAPSULE (FP) PO SCH (09:33)
[2020-07-30] MEDS: DULoxetine HCL 30 MG CAPSULE.DR PO SCH ×2 (09:33→21:30)
[2020-07-30] MEDS: LISINOPRIL 20 MG TABLET PO SCH (09:33)
[2020-07-30] MEDS: PANTOPRAZOLE 40 MG TABLET PO SCH (09:33)
[2020-07-30] MEDS: SENNOSIDES 8.6MG TABLET (FP) PO SCH ×2 (09:33→21:31)
[2020-07-30] MEDS: NICOTINE 7 MG/24 HOURS TOPICAL PATCH TD SCH (09:34)
[2020-07-30] MEDS: oxyCODONE HCL 40 MG SUSTAINED ACTING TABLET PO SCH ×2 (09:34→21:30)
[2020-07-31] MEDS: oxyCODONE HCL 5 MG TABLET PO PRN ×2 (03:43→08:15)
[2020-07-31] MEDS: OXYBUTYNIN CHLORIDE 5 MG TABLET PO SCH ×2 (06:29→13:28)
[2020-07-31] MEDS: PREGABALIN 100 MG CAPSULE PO SCH ×2 (06:29→13:29)
[2020-07-31] MEDS: levoFLOXacin 500 MG, levoFLOXacin 250 MG PO SCH (06:29)
[2020-07-31] MEDS: LISINOPRIL 20 MG TABLET PO SCH (09:08)
[2020-07-31] MEDS: SENNOSIDES 8.6MG TABLET (FP) PO SCH (09:08)
[2020-07-31] MEDS: DULoxetine HCL 30 MG CAPSULE.DR PO SCH (09:08)
[2020-07-31] MEDS: DOCUSATE SODIUM 100 MG CAPSULE (FP) PO SCH (09:09)
[2020-07-31] MEDS: PANTOPRAZOLE 40 MG TABLET PO SCH (09:09)
[2020-07-31] MEDS: oxyCODONE HCL 40 MG SUSTAINED ACTING TABLET PO SCH (09:09)
[2020-07-31] MEDS: NICOTINE 7 MG/24 HOURS TOPICAL PATCH TD SCH (09:21)
[2020-07-31] MEDS ORDERED: MIDAZOLAM HCL 2 MG/2 ML SINGLE DOSE VIAL ONE (13:50)
[2020-07-31] MEDS ORDERED: PROPOFOL 20 ML ONE (13:51)
[2020-07-31] MEDS ORDERED: ROCURONIUM BROMIDE 50 MG/5 ML SYRINGE ONE (13:51)
[2020-07-31] MEDS ORDERED: VANCOMYCIN 1,000 MG VIAL (RESTRICTED TO ID ONLY) IVPB ONE ×2 (14:07)
[2020-07-31] MEDS ORDERED: ceFAZolin SODIUM 1 GM VIAL IVPB ONE ×3 (14:07→16:41)
[2020-07-31] MEDS ORDERED: EPHEDRINE SULFATE/0.9% NACL/PF 50 MG/10 ML SYRINGE NR ONE (14:25)
[2020-07-31] MEDS ORDERED: HYDROmorphone HCl 2 MG/ML VIAL ONE (15:10)
[2020-07-31] MEDS ORDERED: ceFAZolin SODIUM 1 GM VIAL ONE ×2 (16:39→22:28)
[2020-07-31] MEDS ORDERED: NEOSTIGMINE METHYLSULFATE 0.5 MG/1 ML - 10 ML MDV ONE (16:43)
[2020-07-31] MEDS ORDERED: GLYCOPYRROLATE 0.2 MG/1 ML VIAL ONE (16:43)
[2020-07-31] MEDS ORDERED: MAG HYDROX/AL HYDROX/SIMETH 30 ML UNIT-DOSE CUP PO PRN (17:20)
[2020-07-31] MEDS ORDERED: MAGNESIUM HYDROX 2400MG/30ML ORAL SUSPENSION 30 ML CUP PO PRN (17:20)
[2020-07-31] MEDS ORDERED: ONDANSETRON 4 MG/2 ML VIAL IVPUSH PRN ×2 (17:20→17:29)
[2020-07-31] MEDS ORDERED: PROMETHAZINE HCL 25 MG/1 ML VIAL IVPUSH PRN (17:29)
[2020-07-31] MEDS ORDERED: oxyCODONE HCL 5 MG TABLET PO PRN (17:29)
[2020-07-31] MEDS ORDERED: LACTATED RINGERS SOLUTION 1,000 ML IV SCH (17:30)
[2020-07-31] MEDS: CEFAZOLIN 2 GM/D5W 2 GM/50 ML ML IVPB SCH (22:47)
[2020-07-31] MEDS: ACETAMINOPHEN 500 MG TABLET (FP) PO PRN (22:55)
[2020-07-31] MEDS ORDERED: ACETAMINOPHEN 325 MG TABLET (FP) ONE (22:59)
[2020-08-01] MEDS ORDERED: PT OWN MED DRAWER 7, Y5N ONE ×4 (00:26→21:35)
[2020-08-01] MEDS: ASPIRIN COATED 81 MG TABLET.EC PO SCH ×3 (00:27→21:55)
[2020-08-01] MEDS: oxyCODONE HCL 40 MG SUSTAINED ACTING TABLET PO SCH ×3 (00:29→21:56)
[2020-08-01] MEDS: SENNOSIDES/DOCUSATE COMBO (SENNA PLUS) TABLET (UD) PO SCH ×3 (00:30→21:55)
[2020-08-01] MEDS: DULoxetine HCL 30 MG CAPSULE.DR PO SCH ×3 (00:30→21:56)
[2020-08-01] MEDS: PREGABALIN 100 MG CAPSULE PO SCH ×4 (00:31→21:55)
[2020-08-01] MEDS: OXYBUTYNIN CHLORIDE 5 MG TABLET PO SCH ×4 (00:31→21:56)
[2020-08-01] MEDS: CEFAZOLIN 2 GM/D5W 2 GM/50 ML ML IVPB SCH ×2 (05:08→11:22)
[2020-08-01] MEDS: levoFLOXacin 500 MG, levoFLOXacin 250 MG PO SCH (05:22)
[2020-08-01 09:21] LABS: BASO % 0.3 % (0-2.0); EOS % 0.4 % (0-4.5); HEMOGLOBIN 11.4 GM/dL (10.7-15.3); LYMPH % 8.1 % (8-40); MCHC 31.7 g/dl (32.0-36.0); MEAN CELL VOLUME 78.9 fl (80-96); MEAN PLT VOLUME 7.6 fl (7.5-11.1); MONO % 7.8 % (3.8-10.2); NEUT % 83.4 % (42.8-82.8); PLATELET COUNT 287 K/MM3 (134-434); RBC 4.57 M/mm3 (3.60-5.2); RDW 17.4 % (11.6-15.6); WHITE BLOOD COUNT 13.5 K/mm3 (4.0-10.0)
[2020-08-01 09:36] LABS: CALCIUM 8.9 mg/dL (8.5-10.1)
[2020-08-01 09:37] LABS: ALBUMIN 3.2 g/dl (3.4-5.0); MAGNESIUM 2.1 mg/dL (1.8-2.4)
[2020-08-01 09:40] LABS: PHOSPHOROUS 3.2 mg/dL (2.5-4.9)
[2020-08-01 09:41] LABS: BILIRUBIN,TOTAL 0.4 mg/dL (0.2-1); TOT PROT 7.3 g/dl (6.4-8.2)
[2020-08-01] MEDS: LISINOPRIL 20 MG TABLET PO SCH (09:50)
[2020-08-01] MEDS: PANTOPRAZOLE 40 MG TABLET PO SCH (09:50)
[2020-08-01] MEDS: NICOTINE 7 MG/24 HOURS TOPICAL PATCH TD SCH (09:50)
[2020-08-01] MEDS ORDERED: PANTOPRAZOLE 40 MG TABLET PO SCH (10:00)
[2020-08-01] MEDS: oxyCODONE HCL 5 MG TABLET PO PRN ×3 (10:34→20:22)
[2020-08-01] MEDS: ACETAMINOPHEN 500 MG TABLET (FP) PO PRN (12:42)
[2020-08-02] MEDS: oxyCODONE HCL 5 MG TABLET PO PRN ×5 (02:37→19:17)
[2020-08-02] MEDS: OXYBUTYNIN CHLORIDE 5 MG TABLET PO SCH ×3 (06:43→22:18)
[2020-08-02] MEDS: PREGABALIN 100 MG CAPSULE PO SCH ×3 (06:43→22:18)
[2020-08-02 07:40] LABS: HEMATOCRIT 30.7 % (32.4-45.2); HEMOGLOBIN 9.7 GM/dL (10.7-15.3); MCH 24.7 pg (25.7-33.7); MCHC 31.7 g/dl (32.0-36.0); MEAN CELL VOLUME 77.7 fl (80-96); MEAN PLT VOLUME 7.6 fl (7.5-11.1); PLATELET COUNT 282 K/MM3 (134-434); RBC 3.95 M/mm3 (3.60-5.2); RDW 17.7 % (11.6-15.6); WHITE BLOOD COUNT 11.1 K/mm3 (4.0-10.0)
[2020-08-02 08:27] LABS: POTASSIUM 3.9 mmol/L (3.5-5.1)
[2020-08-02 09:08] LABS: BLOOD UREA NITROGEN 21.7 mg/dL (7-18); CALCIUM 8.8 mg/dL (8.5-10.1)
[2020-08-02 09:10] LABS: CREATININE 1.2 mg/dL (0.55-1.3)
[2020-08-02] MEDS: PANTOPRAZOLE 40 MG TABLET PO SCH (09:34)
[2020-08-02] MEDS: SENNOSIDES/DOCUSATE COMBO (SENNA PLUS) TABLET (UD) PO SCH ×2 (09:35→22:18)
[2020-08-02] MEDS: ASPIRIN COATED 81 MG TABLET.EC PO SCH ×2 (09:35→22:18)
[2020-08-02] MEDS: NICOTINE 7 MG/24 HOURS TOPICAL PATCH TD SCH (09:35)
[2020-08-02] MEDS: LISINOPRIL 20 MG TABLET PO SCH (09:35)
[2020-08-02] MEDS: oxyCODONE HCL 40 MG SUSTAINED ACTING TABLET PO SCH ×2 (09:35→22:18)
[2020-08-02] MEDS: DULoxetine HCL 30 MG CAPSULE.DR PO SCH ×2 (09:35→22:18)
[2020-08-02] MEDS ORDERED: PT OWN MED DRAWER 7, Y5N ONE ×2 (13:52→22:06)
[2020-08-03] MEDS: oxyCODONE HCL 5 MG TABLET PO PRN ×5 (00:51→17:59)
[2020-08-03] MEDS: OXYBUTYNIN CHLORIDE 5 MG TABLET PO SCH ×3 (06:03→21:22)
[2020-08-03] MEDS: PREGABALIN 100 MG CAPSULE PO SCH ×3 (06:04→21:21)
[2020-08-03 08:11] LABS: EOS % 4.1 % (0-4.5); HEMOGLOBIN 9.4 GM/dL (10.7-15.3); LYMPH % 13.2 % (8-40); MCH 24.7 pg (25.7-33.7); MCHC 32.4 g/dl (32.0-36.0); MEAN CELL VOLUME 76.3 fl (80-96); MEAN PLT VOLUME 7.6 fl (7.5-11.1); MONO % 5.9 % (3.8-10.2); NEUT % 75.8 % (42.8-82.8); PLATELET COUNT 292 K/MM3 (134-434); RDW 17.8 % (11.6-15.6); WHITE BLOOD COUNT 11.7 K/mm3 (4.0-10.0)
[2020-08-03 08:15] LABS: POTASSIUM 3.9 mmol/L (3.5-5.1)
[2020-08-03 08:18] LABS: BLOOD UREA NITROGEN 25.9 mg/dL (7-18); CALCIUM 8.2 mg/dL (8.5-10.1)
[2020-08-03 08:21] LABS: CREATININE 1.3 mg/dL (0.55-1.3)
[2020-08-03] MEDS: NICOTINE 7 MG/24 HOURS TOPICAL PATCH TD SCH ×2 (09:10→09:18)
[2020-08-03] MEDS: DULoxetine HCL 30 MG CAPSULE.DR PO SCH ×2 (09:10→21:22)
[2020-08-03] MEDS: oxyCODONE HCL 40 MG SUSTAINED ACTING TABLET PO SCH ×2 (09:11→21:21)
[2020-08-03] MEDS: LISINOPRIL 20 MG TABLET PO SCH (09:11)
[2020-08-03] MEDS: ASPIRIN COATED 81 MG TABLET.EC PO SCH ×2 (09:12→21:22)
[2020-08-03] MEDS: SENNOSIDES/DOCUSATE COMBO (SENNA PLUS) TABLET (UD) PO SCH ×2 (09:12→21:22)
[2020-08-03] MEDS: PANTOPRAZOLE 40 MG TABLET PO SCH (09:13)
[2020-08-03] MEDS ORDERED: PT OWN MED DRAWER 7, Y5N ONE ×2 (13:53→21:18)
[2020-08-04] MEDS: oxyCODONE HCL 5 MG TABLET PO PRN ×4 (00:31→14:16)
[2020-08-04] MEDS: OXYBUTYNIN CHLORIDE 5 MG TABLET PO SCH ×2 (05:30→14:14)
[2020-08-04] MEDS: PREGABALIN 100 MG CAPSULE PO SCH ×2 (05:31→14:14)
[2020-08-04 08:09] LABS: HEMATOCRIT 34.2 % (32.4-45.2); HEMOGLOBIN 10.9 GM/dL (10.7-15.3); MCH 24.9 pg (25.7-33.7); MCHC 31.9 g/dl (32.0-36.0); MEAN PLT VOLUME 7.7 fl (7.5-11.1); PLATELET COUNT 272 K/MM3 (134-434); RBC 4.39 M/mm3 (3.60-5.2); RDW 17.4 % (11.6-15.6); WHITE BLOOD COUNT 10.1 K/mm3 (4.0-10.0)
[2020-08-04 08:24] LABS: POTASSIUM 4.4 mmol/L (3.5-5.1)
[2020-08-04 08:30] LABS: ALBUMIN 2.9 g/dl (3.4-5.0); BLOOD UREA NITROGEN 25.7 mg/dL (7-18); CALCIUM 8.6 mg/dL (8.5-10.1)
[2020-08-04 08:33] LABS: CREATININE 1.3 mg/dL (0.55-1.3)
[2020-08-04 08:34] LABS: PHOSPHOROUS 4.4 mg/dL (2.5-4.9)
[2020-08-04 08:35] LABS: BILIRUBIN,TOTAL 0.3 mg/dL (0.2-1); TOT PROT 6.7 g/dl (6.4-8.2)
[2020-08-04] MEDS: PANTOPRAZOLE 40 MG TABLET PO SCH (09:30)
[2020-08-04] MEDS: LISINOPRIL 20 MG TABLET PO SCH (09:30)
[2020-08-04] MEDS: DULoxetine HCL 30 MG CAPSULE.DR PO SCH (09:30)
[2020-08-04] MEDS: SENNOSIDES/DOCUSATE COMBO (SENNA PLUS) TABLET (UD) PO SCH (09:31)
[2020-08-04] MEDS: ASPIRIN COATED 81 MG TABLET.EC PO SCH (09:32)
[2020-08-04] MEDS: NICOTINE 7 MG/24 HOURS TOPICAL PATCH TD SCH (09:33)
[2020-08-04 10:39] VITALS: TEMP 98.5
[2020-08-04] MEDS: oxyCODONE HCL 40 MG SUSTAINED ACTING TABLET PO SCH (10:49)
[2020-08-04] MEDS ORDERED: PT OWN MED DRAWER 7, Y5N ONE (14:13)
[2020-08-04 15:13] VITALS: BP 124/74; PULSE 74
== END 2020-08-04 17:59 | disposition home health service (06) | DRG 493 ==
LOC: JER 08:11 → JERBED 11:19 → J6S 18:51
PROVIDERS: ADMIT Student in an Organized Health Care Education/Training Program; ATTEND Internal Medicine
PROC: 0QUH07Z Supplement Left Tibia with Autologous Tissue Substitute, Open Approach (ICD-10-PCS; 2020-07-31)
PROC: 0QSH04Z Reposition Left Tibia with Internal Fixation Device, Open Approach (ICD-10-PCS; principal; 2020-07-31 14:57)
DX: S82.855A Nondisplaced trimalleolar fracture of left lower leg, initial encounter for closed fracture (principal); T81.41XA Infection following a procedure, superficial incisional surgical site, initial encounter; W19.XXXA Unspecified fall, initial encounter; Y93.9 Activity, unspecified; Y92.89 Other specified places as the place of occurrence of the external cause; Y99.9 Unspecified external cause status; I10 Essential (primary) hypertension; K21.9 Gastro-esophageal reflux disease without esophagitis; F41.8 Other specified anxiety disorders; L08.89 Other specified local infections of the skin and subcutaneous tissue; K59.00 Constipation, unspecified; E78.5 Hyperlipidemia, unspecified; D50.9 Iron deficiency anemia, unspecified; D72.829 Elevated white blood cell count, unspecified; Y83.9 Surgical procedure, unspecified as the cause of abnormal reaction of the patient, or of later complication, without mention of misadventure at the time of the procedure
CPT/HCPCS: 36415; 71045-TC-FY; 73700-TC-RT; 76000-TC-FY; 80048; 80053; 81003; 82728; 82962; 83540; 83550; 83735; 84100; 85025; 85027; 85610; 85730; 86850; 86900; 86901; 87040; 87070; 87086; 87186; 87205; 93005; 93010; 94760; 97116-GP; 97162-GP; 99285-25; C9803; U0003

== ENCOUNTER 2021-03-01 04:18 | Inpatient (IN) | payer OTHER ==
[2021-02-25 13:05] VITALS: BMI 26.9
[2021-03-01] MEDS ORDERED: fentaNYL CITRATE 250 MCG/5 ML VIAL ONE (11:52)
[2021-03-01] MEDS ORDERED: ceFAZolin SODIUM 1 GM VIAL IVPB ONE (12:30)
[2021-03-01] MEDS ORDERED: VANCOMYCIN 1,000 MG VIAL (RESTRICTED TO ID ONLY) IVPB ONE (12:30)
[2021-03-01] MEDS ORDERED: ceFAZolin SODIUM 1 GM VIAL ONE ×2 (12:40→18:49)
[2021-03-01] MEDS ORDERED: TRANEXAMIC ACID 1000 MG/10 ML VIAL ONE (12:42)
[2021-03-01] MEDS ORDERED: EPHEDRINE SULFATE/0.9% NACL/PF 50 MG/10 ML SYRINGE NR ONE (13:28)
[2021-03-01] MEDS ORDERED: ONDANSETRON 4 MG/2 ML VIAL ONE (13:29)
[2021-03-01] MEDS ORDERED: THROMBIN (BOVINE) 5,000 UNIT VIAL TP ONE ×2 (14:28→14:31)
[2021-03-01] MEDS ORDERED: MAGNESIUM HYDROX 2400MG/30ML ORAL SUSPENSION 30 ML CUP PO PRN (16:29)
[2021-03-01] MEDS ORDERED: ONDANSETRON 4 MG/2 ML VIAL IVPUSH PRN ×2 (16:29→16:55)
[2021-03-01] MEDS ORDERED: MAG HYDROX/AL HYDROX/SIMETH 30 ML UNIT-DOSE CUP PO PRN (16:29)
[2021-03-01] MEDS ORDERED: LACTATED RINGERS SOLUTION 1,000 ML IV SCH (16:30)
[2021-03-01] MEDS ORDERED: oxyCODONE HCL 5 MG TABLET PO PRN (16:55)
[2021-03-01] MEDS: CEFAZOLIN 2 GM/D5W 2 GM/50 ML ML IVPB SCH (18:30)
[2021-03-01] MEDS: LACTATED RINGERS SOLUTION 1,000 ML IV SCH (20:30)
[2021-03-01] MEDS: PREGABALIN 100 MG CAPSULE PO SCH (21:41)
[2021-03-01] MEDS: OXYBUTYNIN CHLORIDE 5 MG TABLET PO SCH (21:41)
[2021-03-01] MEDS: DULoxetine HCL 30 MG CAPSULE.DR PO SCH (21:41)
[2021-03-01] MEDS: ASPIRIN COATED 81 MG TABLET.EC PO SCH (21:41)
[2021-03-01] MEDS: oxyCODONE HCL 80 MG SUSTAINED ACTING TABLET PO SCH (21:41)
[2021-03-01] MEDS: SENNOSIDES/DOCUSATE COMBO (SENNA PLUS) TABLET (UD) PO SCH (21:41)
[2021-03-01] MEDS: IBUPROFEN 400 MG TABLET (FP) PO SCH (21:47)
[2021-03-01] MEDS ORDERED: SENNOSIDES 8.6MG TABLET (FP) PO SCH (22:00)
[2021-03-01] MEDS: DOCUSATE SODIUM 100 MG CAPSULE (FP) PO SCH (23:34)
[2021-03-02] MEDS: CEFAZOLIN 2 GM/D5W 2 GM/50 ML ML IVPB SCH ×2 (00:14→06:14)
[2021-03-02] MEDS: OXYBUTYNIN CHLORIDE 5 MG TABLET PO SCH ×3 (06:09→21:32)
[2021-03-02] MEDS: PREGABALIN 100 MG CAPSULE PO SCH ×3 (06:09→21:31)
[2021-03-02] MEDS: oxyCODONE HCL 5 MG TABLET PO PRN ×4 (06:10→21:33)
[2021-03-02 07:51] LABS: HEMATOCRIT 31.1 % (32.4-45.2); HEMOGLOBIN 10.3 GM/dL (10.7-15.3); MCHC 33.1 g/dl (32.0-36.0); MEAN CELL VOLUME 78.6 fl (80-96); PLATELET COUNT 298 10^3/uL (134-434); RBC 3.95 M/mm3 (3.60-5.2); RDW 16.5 % (11.6-15.6); WHITE BLOOD COUNT 12.6 K/mm3 (4.0-10.0)
[2021-03-02 08:05] LABS: BLOOD UREA NITROGEN 10.2 mg/dL (7-18); CALCIUM 8.4 mg/dL (8.5-10.1)
[2021-03-02 08:09] LABS: CREATININE 0.9 mg/dL (0.55-1.3)
[2021-03-02] MEDS ORDERED: PATIENT'S OWN MEDICATION (NON-FORMULARY) (Omeprazole [Omeprazole] 20 MG Tablet.Dr) PO SCH (10:00)
[2021-03-02] MEDS: DULoxetine HCL 30 MG CAPSULE.DR PO SCH ×2 (10:31→21:32)
[2021-03-02] MEDS: LISINOPRIL 20 MG TABLET PO SCH (10:31)
[2021-03-02] MEDS: IBUPROFEN 400 MG TABLET (FP) PO SCH ×2 (10:32→21:32)
[2021-03-02] MEDS: SENNOSIDES/DOCUSATE COMBO (SENNA PLUS) TABLET (UD) PO SCH ×2 (10:32→21:32)
[2021-03-02] MEDS: FERROUS SO4 325 MG TABLET (FP) PO SCH (10:33)
[2021-03-02] MEDS: oxyCODONE HCL 80 MG SUSTAINED ACTING TABLET PO SCH ×2 (10:33→21:31)
[2021-03-02] MEDS: ASPIRIN COATED 81 MG TABLET.EC PO SCH ×2 (10:33→21:33)
[2021-03-02] MEDS: PANTOPRAZOLE 40 MG TABLET PO SCH (10:34)
[2021-03-02] MEDS: POLYETHYLENE GLYCOL 3350 119 GM BTL PO SCH (11:46)
[2021-03-02] MEDS: LACTATED RINGERS SOLUTION 1,000 ML IV SCH (18:37)
[2021-03-02] MEDS: DOCUSATE SODIUM 100 MG CAPSULE (FP) PO SCH (21:31)
[2021-03-03] MEDS: oxyCODONE HCL 5 MG TABLET PO PRN ×6 (05:35→23:30)
[2021-03-03] MEDS: PREGABALIN 100 MG CAPSULE PO SCH ×3 (05:35→22:04)
[2021-03-03] MEDS: OXYBUTYNIN CHLORIDE 5 MG TABLET PO SCH ×3 (05:35→22:04)
[2021-03-03 07:56] LABS: HEMATOCRIT 28.4 % (32.4-45.2); HEMOGLOBIN 9.5 GM/dL (10.7-15.3); MCH 26.2 pg (25.7-33.7); MCHC 33.3 g/dl (32.0-36.0); MEAN CELL VOLUME 78.6 fl (80-96); MEAN PLT VOLUME 6.9 fl (7.5-11.1); PLATELET COUNT 266 10^3/uL (134-434); RBC 3.62 M/mm3 (3.60-5.2); RDW 16.2 % (11.6-15.6); WHITE BLOOD COUNT 17.7 K/mm3 (4.0-10.0)
[2021-03-03 08:43] LABS: CALCIUM 8.6 mg/dL (8.5-10.1)
[2021-03-03 08:44] LABS: BLOOD UREA NITROGEN 13.3 mg/dL (7-18); MAGNESIUM 2.1 mg/dL (1.8-2.4)
[2021-03-03 08:47] LABS: CREATININE 0.9 mg/dL (0.55-1.3)
[2021-03-03 08:49] LABS: BILIRUBIN,TOTAL 0.4 mg/dL (0.2-1); TOT PROT 6.4 g/dl (6.4-8.2)
[2021-03-03] MEDS: IBUPROFEN 400 MG TABLET (FP) PO SCH ×2 (10:28→22:05)
[2021-03-03] MEDS: FERROUS SO4 325 MG TABLET (FP) PO SCH (10:28)
[2021-03-03] MEDS: SENNOSIDES/DOCUSATE COMBO (SENNA PLUS) TABLET (UD) PO SCH ×2 (10:28→22:04)
[2021-03-03] MEDS: ASPIRIN COATED 81 MG TABLET.EC PO SCH ×2 (10:28→22:05)
[2021-03-03] MEDS: PANTOPRAZOLE 40 MG TABLET PO SCH (10:29)
[2021-03-03] MEDS: LISINOPRIL 20 MG TABLET PO SCH (10:29)
[2021-03-03] MEDS: DULoxetine HCL 30 MG CAPSULE.DR PO SCH ×2 (10:29→22:05)
[2021-03-03] MEDS: oxyCODONE HCL 80 MG SUSTAINED ACTING TABLET PO SCH ×2 (10:30→22:05)
[2021-03-03] MEDS: POLYETHYLENE GLYCOL 3350 119 GM BTL PO SCH (10:31)
[2021-03-03 16:03] LABS: EPI CELLS 16 /uL (0-25.1); HYALINE CASTS 1 /uL (0-3.1); URINE APPEARANCE CLEAR; URINE BACTERIA 21 /uL (0-1359); URINE BILIRUBIN NEGATIVE (NEGATIVE); URINE COLOR YELLOW; URINE GLUCOSE (UA) NEGATIVE (NEGATIVE); URINE KETONE NEGATIVE (NEGATIVE); URINE LEUK ESTERASE TRACE (NEGATIVE); URINE NITRITE NEGATIVE (NEGATIVE); URINE PROTEIN NEGATIVE (NEGATIVE); URINE RBC 6 /uL (0-23.9); URINE UROBILINOGEN 0.2 mg/dL (0.2-1.0); URINE WBC 18 /uL (0-25.8)
[2021-03-03] MEDS: LACTATED RINGERS SOLUTION 1,000 ML IV SCH (18:41)
[2021-03-03] MEDS: DOCUSATE SODIUM 100 MG CAPSULE (FP) PO SCH (22:05)
[2021-03-04] MEDS: OXYBUTYNIN CHLORIDE 5 MG TABLET PO SCH ×3 (05:23→21:54)
[2021-03-04] MEDS: PREGABALIN 100 MG CAPSULE PO SCH ×3 (05:23→21:55)
[2021-03-04] MEDS: oxyCODONE HCL 5 MG TABLET PO PRN ×2 (05:23→10:44)
[2021-03-04 09:59] LABS: BASO % 0.4 % (0-2.0); EOS % 2.1 % (0-4.5); HEMATOCRIT 30.9 % (32.4-45.2); HEMOGLOBIN 9.7 GM/dL (10.7-15.3); LYMPH % 6.3 % (8-40); MCH 25.3 pg (25.7-33.7); MCHC 31.5 g/dl (32.0-36.0); MEAN CELL VOLUME 80.5 fl (80-96); MEAN PLT VOLUME 7.6 fl (7.5-11.1); MONO % 5.4 % (3.8-10.2); NEUT % 85.8 % (42.8-82.8); PLATELET COUNT 299 10^3/uL (134-434); RBC 3.84 M/mm3 (3.60-5.2); RDW 16.7 % (11.6-15.6); WHITE BLOOD COUNT 20.2 K/mm3 (4.0-10.0)
[2021-03-04 10:30] LABS: CALCIUM 8.9 mg/dL (8.5-10.1)
[2021-03-04 10:31] LABS: BLOOD UREA NITROGEN 13.4 mg/dL (7-18)
[2021-03-04 10:34] LABS: CREATININE 0.9 mg/dL (0.55-1.3)
[2021-03-04 10:35] LABS: ANISOCYTOSIS 2+; PLATELET ESTIMATE NORMAL
[2021-03-04 10:36] LABS: BILIRUBIN,TOTAL 0.4 mg/dL (0.2-1)
[2021-03-04] MEDS: SENNOSIDES/DOCUSATE COMBO (SENNA PLUS) TABLET (UD) PO SCH ×2 (10:38→21:54)
[2021-03-04] MEDS: FERROUS SO4 325 MG TABLET (FP) PO SCH (10:39)
[2021-03-04] MEDS: IBUPROFEN 400 MG TABLET (FP) PO SCH ×2 (10:39→21:53)
[2021-03-04] MEDS: DULoxetine HCL 30 MG CAPSULE.DR PO SCH ×2 (10:39→21:56)
[2021-03-04] MEDS: LISINOPRIL 20 MG TABLET PO SCH (10:40)
[2021-03-04] MEDS: oxyCODONE HCL 80 MG SUSTAINED ACTING TABLET PO SCH ×2 (10:40→21:54)
[2021-03-04] MEDS: PANTOPRAZOLE 40 MG TABLET PO SCH (10:40)
[2021-03-04] MEDS: POLYETHYLENE GLYCOL 3350 119 GM BTL PO SCH (10:41)
[2021-03-04] MEDS: ASPIRIN COATED 81 MG TABLET.EC PO SCH ×2 (10:41→21:55)
[2021-03-04] MEDS: LACTATED RINGERS SOLUTION 1,000 ML IV SCH (19:36)
[2021-03-04] MEDS: DOCUSATE SODIUM 100 MG CAPSULE (FP) PO SCH (21:53)
[2021-03-05] MEDS: oxyCODONE HCL 5 MG TABLET PO PRN ×4 (03:46→22:33)
[2021-03-05] MEDS: OXYBUTYNIN CHLORIDE 5 MG TABLET PO SCH ×3 (06:14→22:30)
[2021-03-05] MEDS: PREGABALIN 100 MG CAPSULE PO SCH ×3 (06:14→22:30)
[2021-03-05] MEDS: POLYETHYLENE GLYCOL 3350 119 GM BTL PO SCH (09:47)
[2021-03-05] MEDS: IBUPROFEN 400 MG TABLET (FP) PO SCH ×2 (09:49→22:32)
[2021-03-05] MEDS: oxyCODONE HCL 80 MG SUSTAINED ACTING TABLET PO SCH ×2 (09:50→22:30)
[2021-03-05] MEDS: LISINOPRIL 20 MG TABLET PO SCH (09:50)
[2021-03-05] MEDS: PANTOPRAZOLE 40 MG TABLET PO SCH (09:52)
[2021-03-05] MEDS: DULoxetine HCL 30 MG CAPSULE.DR PO SCH ×2 (09:52→22:30)
[2021-03-05] MEDS: SENNOSIDES/DOCUSATE COMBO (SENNA PLUS) TABLET (UD) PO SCH ×2 (09:52→22:30)
[2021-03-05] MEDS: FERROUS SO4 325 MG TABLET (FP) PO SCH (09:52)
[2021-03-05] MEDS: ASPIRIN COATED 81 MG TABLET.EC PO SCH ×2 (09:52→22:30)
[2021-03-05 10:37] LABS: BASO % 0.4 % (0-2.0); EOS % 5.4 % (0-4.5); HEMATOCRIT 29.6 % (32.4-45.2); HEMOGLOBIN 9.5 GM/dL (10.7-15.3); LYMPH % 9.8 % (8-40); MCH 25.9 pg (25.7-33.7); MCHC 32.1 g/dl (32.0-36.0); MEAN CELL VOLUME 80.8 fl (80-96); MEAN PLT VOLUME 7.6 fl (7.5-11.1); MONO % 5.4 % (3.8-10.2); PLATELET COUNT 350 10^3/uL (134-434); RBC 3.66 M/mm3 (3.60-5.2); RDW 16.8 % (11.6-15.6); WHITE BLOOD COUNT 14.8 K/mm3 (4.0-10.0)
[2021-03-05 11:05] LABS: CALCIUM 8.9 mg/dL (8.5-10.1)
[2021-03-05 11:06] LABS: BLOOD UREA NITROGEN 18.3 mg/dL (7-18)
[2021-03-05 11:09] LABS: CREATININE 1.4 mg/dL (0.55-1.3)
[2021-03-05] MEDS: LACTATED RINGERS SOLUTION 1,000 ML IV SCH (18:05)
[2021-03-05] MEDS: DOCUSATE SODIUM 100 MG CAPSULE (FP) PO SCH (22:30)
[2021-03-06] MEDS: OXYBUTYNIN CHLORIDE 5 MG TABLET PO SCH ×3 (07:39→21:51)
[2021-03-06] MEDS: PREGABALIN 100 MG CAPSULE PO SCH ×3 (07:39→21:51)
[2021-03-06] MEDS: oxyCODONE HCL 5 MG TABLET PO PRN ×4 (08:04→21:51)
[2021-03-06 08:45] LABS: BASO % 0.7 % (0-2.0); EOS % 4.6 % (0-4.5); HEMATOCRIT 30.7 % (32.4-45.2); HEMOGLOBIN 9.7 GM/dL (10.7-15.3); LYMPH % 12.8 % (8-40); MCH 25.5 pg (25.7-33.7); MCHC 31.5 g/dl (32.0-36.0); MEAN CELL VOLUME 80.9 fl (80-96); MEAN PLT VOLUME 7.5 fl (7.5-11.1); MONO % 6.4 % (3.8-10.2); NEUT % 75.5 % (42.8-82.8); PLATELET COUNT 382 10^3/uL (134-434); RBC 3.79 M/mm3 (3.60-5.2); RDW 16.4 % (11.6-15.6); WHITE BLOOD COUNT 12.9 K/mm3 (4.0-10.0)
[2021-03-06] MEDS ORDERED: PT OWN MED DRAWER 7, Y5N ONE (09:06)
[2021-03-06 09:12] LABS: CALCIUM 9.1 mg/dL (8.5-10.1)
[2021-03-06] MEDS: DULoxetine HCL 30 MG CAPSULE.DR PO SCH ×2 (09:12→21:51)
[2021-03-06] MEDS: POLYETHYLENE GLYCOL 3350 119 GM BTL PO SCH (09:12)
[2021-03-06] MEDS: ASPIRIN COATED 81 MG TABLET.EC PO SCH ×2 (09:12→21:52)
[2021-03-06] MEDS: FERROUS SO4 325 MG TABLET (FP) PO SCH (09:12)
[2021-03-06 09:13] LABS: BLOOD UREA NITROGEN 22.7 mg/dL (7-18)
[2021-03-06] MEDS: IBUPROFEN 400 MG TABLET (FP) PO SCH ×2 (09:13→21:51)
[2021-03-06] MEDS: oxyCODONE HCL 80 MG SUSTAINED ACTING TABLET PO SCH ×2 (09:15→21:52)
[2021-03-06 09:16] LABS: CREATININE 1.3 mg/dL (0.55-1.3)
[2021-03-06] MEDS: PANTOPRAZOLE 40 MG TABLET PO SCH (09:17)
[2021-03-06] MEDS: SENNOSIDES/DOCUSATE COMBO (SENNA PLUS) TABLET (UD) PO SCH ×2 (09:17→21:51)
[2021-03-06] MEDS: LISINOPRIL 20 MG TABLET PO SCH (09:17)
[2021-03-06] MEDS: DOCUSATE SODIUM 100 MG CAPSULE (FP) PO SCH (21:51)
[2021-03-07] MEDS: oxyCODONE HCL 5 MG TABLET PO PRN ×5 (02:20→22:40)
[2021-03-07] MEDS: PREGABALIN 100 MG CAPSULE PO SCH ×3 (06:16→22:23)
[2021-03-07] MEDS: OXYBUTYNIN CHLORIDE 5 MG TABLET PO SCH ×3 (06:16→22:23)
[2021-03-07] MEDS ORDERED: PT OWN MED DRAWER 7, Y5N ONE (09:45)
[2021-03-07] MEDS: DULoxetine HCL 30 MG CAPSULE.DR PO SCH ×2 (09:48→22:24)
[2021-03-07] MEDS: FERROUS SO4 325 MG TABLET (FP) PO SCH (09:48)
[2021-03-07] MEDS: ASPIRIN COATED 81 MG TABLET.EC PO SCH ×2 (09:48→22:23)
[2021-03-07] MEDS: POLYETHYLENE GLYCOL 3350 119 GM BTL PO SCH (09:49)
[2021-03-07] MEDS: IBUPROFEN 400 MG TABLET (FP) PO SCH (09:50)
[2021-03-07] MEDS: oxyCODONE HCL 80 MG SUSTAINED ACTING TABLET PO SCH ×2 (09:51→22:23)
[2021-03-07] MEDS: LISINOPRIL 20 MG TABLET PO SCH (09:52)
[2021-03-07] MEDS: SENNOSIDES/DOCUSATE COMBO (SENNA PLUS) TABLET (UD) PO SCH ×2 (09:52→22:24)
[2021-03-07] MEDS: PANTOPRAZOLE 40 MG TABLET PO SCH (09:53)
[2021-03-07] MEDS: DOCUSATE SODIUM 100 MG CAPSULE (FP) PO SCH (22:23)
[2021-03-08] MEDS ORDERED: oxyCODONE HCL 5 MG TABLET PO ONE ×2 (01:10→05:45)
[2021-03-08] MEDS: OXYBUTYNIN CHLORIDE 5 MG TABLET PO SCH ×3 (05:39→21:30)
[2021-03-08] MEDS: PREGABALIN 100 MG CAPSULE PO SCH ×3 (05:40→21:30)
[2021-03-08] MEDS ORDERED: ACETAMINOPHEN 1000 MG/100 ML VIAL (NON FORMULARY) IVPB ONE (06:37)
[2021-03-08] MEDS ORDERED: ACETAMINOPHEN 325 MG TABLET (FP) PO ONE (06:39)
[2021-03-08 08:15] LABS: BASO % 0.8 % (0-2.0); EOS % 5.6 % (0-4.5); HEMATOCRIT 29.4 % (32.4-45.2); HEMOGLOBIN 9.8 GM/dL (10.7-15.3); LYMPH % 10.7 % (8-40); MCH 26.1 pg (25.7-33.7); MCHC 33.4 g/dl (32.0-36.0); MEAN CELL VOLUME 78.2 fl (80-96); MEAN PLT VOLUME 7.1 fl (7.5-11.1); MONO % 7.8 % (3.8-10.2); NEUT % 75.1 % (42.8-82.8); PLATELET COUNT 357 10^3/uL (134-434); RBC 3.76 M/mm3 (3.60-5.2); RDW 16.3 % (11.6-15.6); WHITE BLOOD COUNT 9.6 K/mm3 (4.0-10.0)
[2021-03-08 08:23] LABS: BLOOD UREA NITROGEN 9.9 mg/dL (7-18)
[2021-03-08 08:24] LABS: ALBUMIN 2.9 g/dl (3.4-5.0); CALCIUM 9.1 mg/dL (8.5-10.1)
[2021-03-08 08:28] LABS: CREATININE 0.7 mg/dL (0.55-1.3)
[2021-03-08 08:29] LABS: BILIRUBIN,TOTAL 0.5 mg/dL (0.2-1); TOT PROT 6.8 g/dl (6.4-8.2)
[2021-03-08] MEDS: ASPIRIN COATED 81 MG TABLET.EC PO SCH ×2 (09:42→21:30)
[2021-03-08] MEDS: POLYETHYLENE GLYCOL 3350 119 GM BTL PO SCH (09:43)
[2021-03-08] MEDS: FERROUS SO4 325 MG TABLET (FP) PO SCH (09:44)
[2021-03-08] MEDS: PANTOPRAZOLE 40 MG TABLET PO SCH (09:44)
[2021-03-08] MEDS: DULoxetine HCL 30 MG CAPSULE.DR PO SCH ×2 (09:44→21:30)
[2021-03-08] MEDS: SENNOSIDES/DOCUSATE COMBO (SENNA PLUS) TABLET (UD) PO SCH ×2 (09:44→21:30)
[2021-03-08] MEDS: oxyCODONE HCL 80 MG SUSTAINED ACTING TABLET PO SCH ×2 (09:59→21:30)
[2021-03-08] MEDS ORDERED: amLODIPine BESYLATE 5 MG TABLET (FP) PO SCH (10:00)
[2021-03-08] MEDS ORDERED: ONDANSETRON 4 MG/2 ML VIAL IVPUSH PRN ×3 (12:12→15:26)
[2021-03-08] MEDS ORDERED: oxyCODONE HCL 5 MG TABLET PO PRN (12:12)
[2021-03-08] MEDS ORDERED: PROMETHAZINE HCL 25 MG/1 ML VIAL IVPUSH PRN ×2 (12:12→15:26)
[2021-03-08 12:23] LABS: URINE APPEARANCE CLEAR; URINE BILIRUBIN NEGATIVE (NEGATIVE); URINE COLOR YELLOW; URINE GLUCOSE (UA) NEGATIVE (NEGATIVE); URINE KETONE NEGATIVE (NEGATIVE); URINE LEUK ESTERASE NEGATIVE (NEGATIVE); URINE NITRITE NEGATIVE (NEGATIVE); URINE PROTEIN NEGATIVE (NEGATIVE); URINE UROBILINOGEN 0.2 mg/dL (0.2-1.0)
[2021-03-08] MEDS ORDERED: MIDAZOLAM HCL 2 MG/2 ML SINGLE DOSE VIAL ONE (12:39)
[2021-03-08] MEDS ORDERED: PROPOFOL 20 ML ONE ×3 (12:39)
[2021-03-08] MEDS ORDERED: KETOROLAC TROMETHAMINE 30 MG/1 ML VIAL ONE (13:18)
[2021-03-08] MEDS ORDERED: DEXAMETHASONE SOD PHOSPHATE 4 MG/1 ML VIAL ONE (13:18)
[2021-03-08] MEDS ORDERED: VANCOMYCIN 1,000 MG VIAL (RESTRICTED TO ID ONLY) IVPB ONE (13:30)
[2021-03-08] MEDS ORDERED: VANCOMYCIN 1,000 MG VIAL (RESTRICTED TO ID ONLY) ONE (13:31)
[2021-03-08] MEDS ORDERED: PIPERACILLIN/TAZOBACTAM 4.5 GM VIAL IVPB ONE ×2 (13:32→13:35)
[2021-03-08] MEDS ORDERED: VANCOMYCIN 500 MG VIAL (RESTRICTED TO ID ONLY) ONE ×2 (13:41→13:42)
[2021-03-08] MEDS ORDERED: MAGNESIUM HYDROX 2400MG/30ML ORAL SUSPENSION 30 ML CUP PO PRN (15:26)
[2021-03-08] MEDS ORDERED: MAG HYDROX/AL HYDROX/SIMETH 30 ML UNIT-DOSE CUP PO PRN (15:26)
[2021-03-08] MEDS ORDERED: LORazepam 2 MG/ML SDV VIAL ONE (15:52)
[2021-03-08] MEDS ORDERED: LORazepam 2 MG/ML SDV VIAL IVPUSH ONE (16:00)
[2021-03-08] MEDS: PIPERACILLIN/TAZOB 3.375 GM 3.375 GM in DEXTROSE 5%-WATER - 50 ML IVPB SCH (18:34)
[2021-03-08] MEDS: DOCUSATE SODIUM 100 MG CAPSULE (FP) PO SCH (21:30)
[2021-03-08] MEDS: oxyCODONE HCL 5 MG TABLET PO PRN (23:38)
[2021-03-09] MEDS ORDERED: oxyCODONE HCL 5 MG TABLET PO ONE (00:30)
[2021-03-09] MEDS ORDERED: DEXTROSE 5%-WATER - 50 ML IVPB ONE ×3 (00:32→17:15)
[2021-03-09] MEDS ORDERED: PIPERACILLIN/TAZOBACTAM 3.375 GM VIAL IVPB ONE ×3 (00:32→17:15)
[2021-03-09] MEDS: PIPERACILLIN/TAZOB 3.375 GM 3.375 GM in DEXTROSE 5%-WATER - 50 ML IVPB SCH ×6 (01:02→19:13)
[2021-03-09] MEDS: oxyCODONE HCL 5 MG TABLET PO PRN ×5 (04:24→22:21)
[2021-03-09] MEDS ORDERED: LORazepam 2 MG/ML SDV VIAL IVPUSH ONE (05:01)
[2021-03-09] MEDS: PREGABALIN 100 MG CAPSULE PO SCH ×3 (05:30→21:50)
[2021-03-09] MEDS: OXYBUTYNIN CHLORIDE 5 MG TABLET PO SCH ×3 (05:30→21:50)
[2021-03-09] MEDS ORDERED: AMINO ACIDS/PROTEIN HYDROLYS 30 ML LIQUID.PKT PO SCH (08:00)
[2021-03-09] MEDS: AMINO ACIDS/PROTEIN HYDROLYS 30 ML LIQUID.PKT PO SCH (08:26)
[2021-03-09] MEDS: amLODIPine BESYLATE 5 MG TABLET (FP) PO SCH (10:23)
[2021-03-09] MEDS: POLYETHYLENE GLYCOL (HEALTHYLAX) 3350 17 GM PACKET PO SCH (10:23)
[2021-03-09] MEDS: ASPIRIN COATED 81 MG TABLET.EC PO SCH ×2 (10:23→21:49)
[2021-03-09] MEDS: DULoxetine HCL 30 MG CAPSULE.DR PO SCH ×2 (10:23→21:50)
[2021-03-09] MEDS: FERROUS SO4 325 MG TABLET (FP) PO SCH (10:23)
[2021-03-09] MEDS: PANTOPRAZOLE 40 MG TABLET PO SCH (10:23)
[2021-03-09] MEDS: SENNOSIDES/DOCUSATE COMBO (SENNA PLUS) TABLET (UD) PO SCH ×2 (10:23→21:49)
[2021-03-09] MEDS: oxyCODONE HCL 80 MG SUSTAINED ACTING TABLET PO SCH ×2 (10:24→21:50)
[2021-03-09] MEDS: ACETAMINOPHEN 325 MG TABLET (FP) PO PRN (17:18)
[2021-03-09] MEDS: DOCUSATE SODIUM 100 MG CAPSULE (FP) PO SCH (21:49)
[2021-03-10] MEDS ORDERED: DEXTROSE 5%-WATER - 50 ML IVPB ONE ×2 (00:18→08:31)
[2021-03-10] MEDS ORDERED: PIPERACILLIN/TAZOBACTAM 3.375 GM VIAL IVPB ONE ×2 (00:18→08:31)
[2021-03-10] MEDS: PIPERACILLIN/TAZOB 3.375 GM 3.375 GM in DEXTROSE 5%-WATER - 50 ML IVPB SCH ×3 (01:22→13:03)
[2021-03-10] MEDS: oxyCODONE HCL 5 MG TABLET PO PRN ×6 (02:33→23:50)
[2021-03-10] MEDS: OXYBUTYNIN CHLORIDE 5 MG TABLET PO SCH ×3 (05:27→21:57)
[2021-03-10] MEDS: PREGABALIN 100 MG CAPSULE PO SCH ×3 (05:27→21:57)
[2021-03-10 08:27] LABS: BASO % 0.6 % (0-2.0); EOS % 6.4 % (0-4.5); HEMATOCRIT 29.5 % (32.4-45.2); HEMOGLOBIN 9.6 GM/dL (10.7-15.3); LYMPH % 10.5 % (8-40); MCH 25.5 pg (25.7-33.7); MCHC 32.4 g/dl (32.0-36.0); MEAN CELL VOLUME 78.7 fl (80-96); MEAN PLT VOLUME 7.2 fl (7.5-11.1); MONO % 9.2 % (3.8-10.2); NEUT % 73.3 % (42.8-82.8); PLATELET COUNT 460 10^3/uL (134-434); RBC 3.75 M/mm3 (3.60-5.2); RDW 15.9 % (11.6-15.6); WHITE BLOOD COUNT 13.2 K/mm3 (4.0-10.0)
[2021-03-10 08:43] LABS: CALCIUM 8.3 mg/dL (8.5-10.1)
[2021-03-10 08:44] LABS: BLOOD UREA NITROGEN 10.8 mg/dL (7-18)
[2021-03-10 08:47] LABS: CREATININE 0.9 mg/dL (0.55-1.3)
[2021-03-10] MEDS: AMINO ACIDS/PROTEIN HYDROLYS 30 ML LIQUID.PKT PO SCH (08:50)
[2021-03-10] MEDS: oxyCODONE HCL 80 MG SUSTAINED ACTING TABLET PO SCH ×2 (09:30→21:57)
[2021-03-10] MEDS: DULoxetine HCL 30 MG CAPSULE.DR PO SCH ×2 (09:34→21:57)
[2021-03-10] MEDS: SENNOSIDES/DOCUSATE COMBO (SENNA PLUS) TABLET (UD) PO SCH ×2 (09:34→21:57)
[2021-03-10] MEDS: PANTOPRAZOLE 40 MG TABLET PO SCH (09:35)
[2021-03-10] MEDS: POLYETHYLENE GLYCOL (HEALTHYLAX) 3350 17 GM PACKET PO SCH (09:35)
[2021-03-10] MEDS: ASPIRIN COATED 81 MG TABLET.EC PO SCH ×2 (09:35→21:58)
[2021-03-10] MEDS: amLODIPine BESYLATE 5 MG TABLET (FP) PO SCH (09:35)
[2021-03-10] MEDS: FERROUS SO4 325 MG TABLET (FP) PO SCH (09:35)
[2021-03-10] MEDS ORDERED: PT OWN MED DRAWER 7, Y5N ONE (13:58)
[2021-03-10] MEDS ORDERED: ERTAPENEM SODIUM 1 GM in SODIUM CHLORIDE 50 ML IVPB ONE (14:00)
[2021-03-10] MEDS: ACETAMINOPHEN 325 MG TABLET (FP) PO PRN (17:58)
[2021-03-10] MEDS: DOCUSATE SODIUM 100 MG CAPSULE (FP) PO SCH (21:56)
[2021-03-11] MEDS: oxyCODONE HCL 5 MG TABLET PO PRN ×4 (04:49→19:36)
[2021-03-11] MEDS: OXYBUTYNIN CHLORIDE 5 MG TABLET PO SCH ×3 (05:00→21:49)
[2021-03-11] MEDS: PREGABALIN 100 MG CAPSULE PO SCH ×3 (05:00→21:49)
[2021-03-11] MEDS: POLYETHYLENE GLYCOL (HEALTHYLAX) 3350 17 GM PACKET PO SCH (09:21)
[2021-03-11] MEDS: AMINO ACIDS/PROTEIN HYDROLYS 30 ML LIQUID.PKT PO SCH (09:21)
[2021-03-11] MEDS: amLODIPine BESYLATE 5 MG TABLET (FP) PO SCH (09:22)
[2021-03-11] MEDS: DULoxetine HCL 30 MG CAPSULE.DR PO SCH ×2 (09:22→21:50)
[2021-03-11] MEDS: FERROUS SO4 325 MG TABLET (FP) PO SCH (09:22)
[2021-03-11] MEDS: PANTOPRAZOLE 40 MG TABLET PO SCH (09:23)
[2021-03-11] MEDS: ASPIRIN COATED 81 MG TABLET.EC PO SCH ×2 (09:23→21:50)
[2021-03-11] MEDS: SENNOSIDES/DOCUSATE COMBO (SENNA PLUS) TABLET (UD) PO SCH ×2 (09:23→21:49)
[2021-03-11] MEDS: oxyCODONE HCL 80 MG SUSTAINED ACTING TABLET PO SCH ×2 (10:58→21:50)
[2021-03-11] MEDS ORDERED: PT OWN MED DRAWER 7, Y5N ONE ×2 (11:31→13:51)
[2021-03-11] MEDS: ERTAPENEM SODIUM 1 GM in SODIUM CHLORIDE 50 ML IVPB SCH (14:16)
[2021-03-11] MEDS: ACETAMINOPHEN 325 MG TABLET (FP) PO PRN (14:59)
[2021-03-11] MEDS: DOCUSATE SODIUM 100 MG CAPSULE (FP) PO SCH (21:49)
[2021-03-12] MEDS: oxyCODONE HCL 5 MG TABLET PO PRN ×6 (00:05→23:52)
[2021-03-12] MEDS: OXYBUTYNIN CHLORIDE 5 MG TABLET PO SCH ×3 (06:16→23:07)
[2021-03-12] MEDS: PREGABALIN 100 MG CAPSULE PO SCH ×3 (06:16→23:07)
[2021-03-12] MEDS ORDERED: PT OWN MED DRAWER 7, Y5N ONE ×2 (08:57→17:42)
[2021-03-12] MEDS: AMINO ACIDS/PROTEIN HYDROLYS 30 ML LIQUID.PKT PO SCH (08:58)
[2021-03-12] MEDS: ASPIRIN COATED 81 MG TABLET.EC PO SCH ×2 (09:06→23:07)
[2021-03-12] MEDS: SENNOSIDES/DOCUSATE COMBO (SENNA PLUS) TABLET (UD) PO SCH ×2 (09:06→23:05)
[2021-03-12] MEDS: FERROUS SO4 325 MG TABLET (FP) PO SCH (09:06)
[2021-03-12] MEDS: PANTOPRAZOLE 40 MG TABLET PO SCH (09:06)
[2021-03-12] MEDS: amLODIPine BESYLATE 5 MG TABLET (FP) PO SCH (09:06)
[2021-03-12] MEDS: DULoxetine HCL 30 MG CAPSULE.DR PO SCH ×2 (09:06→23:05)
[2021-03-12] MEDS: POLYETHYLENE GLYCOL (HEALTHYLAX) 3350 17 GM PACKET PO SCH (09:07)
[2021-03-12] MEDS: ERTAPENEM SODIUM 1 GM in SODIUM CHLORIDE 50 ML IVPB SCH (09:07)
[2021-03-12] MEDS: oxyCODONE HCL 80 MG SUSTAINED ACTING TABLET PO SCH ×2 (10:12→23:06)
[2021-03-12] MEDS: DOCUSATE SODIUM 100 MG CAPSULE (FP) PO SCH (23:08)
[2021-03-13] MEDS: oxyCODONE HCL 5 MG TABLET PO PRN ×3 (05:10→13:51)
[2021-03-13] MEDS: OXYBUTYNIN CHLORIDE 5 MG TABLET PO SCH ×2 (05:12→13:34)
[2021-03-13] MEDS: PREGABALIN 100 MG CAPSULE PO SCH ×2 (05:12→13:34)
[2021-03-13] MEDS: AMINO ACIDS/PROTEIN HYDROLYS 30 ML LIQUID.PKT PO SCH (08:51)
[2021-03-13] MEDS ORDERED: PT OWN MED DRAWER 7, Y5N ONE ×2 (09:39→09:47)
[2021-03-13] MEDS: ERTAPENEM SODIUM 1 GM in SODIUM CHLORIDE 50 ML IVPB SCH (09:42)
[2021-03-13] MEDS: DULoxetine HCL 30 MG CAPSULE.DR PO SCH (09:43)
[2021-03-13] MEDS: PANTOPRAZOLE 40 MG TABLET PO SCH (09:43)
[2021-03-13] MEDS: SENNOSIDES/DOCUSATE COMBO (SENNA PLUS) TABLET (UD) PO SCH (09:43)
[2021-03-13] MEDS: amLODIPine BESYLATE 5 MG TABLET (FP) PO SCH (09:43)
[2021-03-13] MEDS: oxyCODONE HCL 80 MG SUSTAINED ACTING TABLET PO SCH (09:44)
[2021-03-13] MEDS: FERROUS SO4 325 MG TABLET (FP) PO SCH (09:44)
[2021-03-13] MEDS: ASPIRIN COATED 81 MG TABLET.EC PO SCH (09:44)
[2021-03-13] MEDS: POLYETHYLENE GLYCOL (HEALTHYLAX) 3350 17 GM PACKET PO SCH (11:29)
[2021-03-13 14:50] VITALS: BP 134/67; PULSE 107; TEMP 98.9
[2021-03-13] MEDS: ACETAMINOPHEN 325 MG TABLET (FP) PO PRN (17:00)
[2021-03-13] MEDS ORDERED: oxyCODONE HCL 5 MG TABLET PO PRN (17:45)
== END 2021-03-13 19:13 | disposition home health service (06) | DRG 857 ==
LOC: JASUSAT 04:18 → EDSTATUS 13:00 → UNDOADMIN 16:30 → J2C 16:30 → J8W 20:36 → J2C 20:36 → J8W 20:46 → JASUSAT 03-02 21:17 → J8W 03-03 00:16 → JASUSAT 03-03 00:16
PROVIDERS: ADMIT Orthopaedic Surgery Orthopaedic Surgery of the Spine; ATTEND Orthopaedic Surgery Orthopaedic Surgery of the Spine
PROC: 0SPB08Z Removal of Spacer from Left Hip Joint, Open Approach (ICD-10-PCS; 2021-03-01)
PROC: 0QB70ZX Excision of Left Upper Femur, Open Approach, Diagnostic (ICD-10-PCS; 2021-03-01)
PROC: 0JQM0ZZ Repair Left Upper Leg Subcutaneous Tissue and Fascia, Open Approach (ICD-10-PCS; 2021-03-08)
PROC: 3E10X8Z Irrigation of Skin and Mucous Membranes using Irrigating Substance (ICD-10-PCS; 2021-03-08)
PROC: 0QB70ZZ Excision of Left Upper Femur, Open Approach (ICD-10-PCS; principal; 2021-03-08 14:00)
PROC: B50MYZZ Plain Radiography of Right Upper Extremity Veins using Other Contrast (ICD-10-PCS; 2021-03-11)
PROC: 02HV33Z Insertion of Infusion Device into Superior Vena Cava, Percutaneous Approach (ICD-10-PCS; 2021-03-11)
PROC: B518ZZA Fluoroscopy of Superior Vena Cava, Guidance (ICD-10-PCS; 2021-03-11)
DX: T81.42XA Infection following a procedure, deep incisional surgical site, initial encounter (principal); M00.852 Arthritis due to other bacteria, left hip; L97.828 Non-pressure chronic ulcer of other part of left lower leg with other specified severity; B96.20 Unspecified Escherichia coli [E. coli] as the cause of diseases classified elsewhere; Y83.8 Other surgical procedures as the cause of abnormal reaction of the patient, or of later complication, without mention of misadventure at the time of the procedure; F41.8 Other specified anxiety disorders; K21.9 Gastro-esophageal reflux disease without esophagitis; M79.7 Fibromyalgia; I10 Essential (primary) hypertension; E78.5 Hyperlipidemia, unspecified; R50.82 Postprocedural fever; F17.210 Nicotine dependence, cigarettes, uncomplicated; M32.8 Other forms of systemic lupus erythematosus; N32.81 Overactive bladder; G62.9 Polyneuropathy, unspecified; Z96.612 Presence of left artificial shoulder joint; Z96.611 Presence of right artificial shoulder joint; Z96.649 Presence of unspecified artificial hip joint
CPT/HCPCS: 36415; 36558; 75820-TC-FY; 80048; 80053; 81003; 83605; 83735; 85025; 85027; 87040; 87070; 87077; 87081; 87086; 87186; 87205; 94010; 94760; 97116-GP; 97161-GP; C9803; U0003; U0005

== ENCOUNTER 2021-03-14 15:16 | Day surgery (SDC) | payer OTHER ==
[2021-03-14] MEDS ORDERED: SODIUM CHLORIDE 50 ML IVPB ONE (15:27)
[2021-03-14] MEDS ORDERED: ERTAPENEM SODIUM 1 GM VIAL ONE (15:27)
[2021-03-14] MEDS ORDERED: ERTAPENEM SODIUM 1 GM in SODIUM CHLORIDE 50 ML IVPB ONE (15:30)
[2021-03-14 15:40] VITALS: BP 100/63; PULSE 96; TEMP 99.5
== END 2021-03-14 16:20 | disposition home or self-care (01) ==
LOC: JINFUSION 15:16 → J7W 15:17 → JINFUSION 16:20
PROVIDERS: ATTEND Internal Medicine Infectious Disease
DX: M00.852 Arthritis due to other bacteria, left hip (principal); L97.828 Non-pressure chronic ulcer of other part of left lower leg with other specified severity; B96.20 Unspecified Escherichia coli [E. coli] as the cause of diseases classified elsewhere
CPT/HCPCS: 96365

== ENCOUNTER 2021-03-15 14:56 | Day surgery (SDC) | payer OTHER ==
[~2021-03-15 14:56] MED LIST changes: -DEXAMETHASONE SOD PHOSPHATE 4 MG/1 ML VIAL ONE; -DULoxetine HCL 30 MG CAPSULE.DR PO SCH; +ERTAPENEM SODIUM 1 GM in SODIUM CHLORIDE 50 ML IVPB ONE; -LACTATED RINGERS SOLUTION 1,000 ML IV SCH; -LIDOCAINE HCL 2% JELLY (5 ML/TUBE) ONE; -LIDOCAINE HCL/PF 2% SDV 5ML VIAL ONE; -LINEZOLID 600 MG TABLET (RESTRICTED TO ID) PO SCH; -MIDAZOLAM HCL 2 MG/2 ML SINGLE DOSE VIAL ONE; -ONDANSETRON 4 MG/2 ML VIAL IVPUSH PRN; -ONDANSETRON 4 MG/2 ML VIAL ONE; -OXYBUTYNIN CHLORIDE 5 MG TABLET PO SCH; -PANTOPRAZOLE 40 MG TABLET (FP) PO SCH; -PATIENT'S OWN MEDICATION (NON-FORMULARY) (Oxycodone Hcl [Oxycodone Hcl] 30 MG) PO PRN; -PREGABALIN 100 MG CAPSULE PO SCH; -PROPOFOL 20 ML ONE; -SENNOSIDES/DOCUSATE COMBO (SENNA PLUS) TABLET (UD) PO PRN; -ceFAZolin SODIUM 1 GM VIAL ONE; -oxyCODONE HCL 40 MG SUSTAINED ACTING TABLET PO SCH; -oxyCODONE HCL 5 MG TABLET ONE; -oxyCODONE HCL 5 MG TABLET PO ONE; -oxyCODONE HCL 5 MG TABLET PO PRN; -oxyCODONE HCL 80 MG SUSTAINED ACTING TABLET PO SCH
[2021-03-15] MEDS ORDERED: ERTAPENEM SODIUM 1 GM in SODIUM CHLORIDE 50 ML IVPB ONE (15:15)
[2021-03-15 16:09] VITALS: BP 125/59; PULSE 108; TEMP 98
== END 2021-03-15 16:09 | disposition home or self-care (01) ==
LOC: JINFUSION 14:56 → J7W 14:57 → JINFUSION 16:09
PROVIDERS: ATTEND Internal Medicine Infectious Disease
DX: M00.852 Arthritis due to other bacteria, left hip (principal); L97.828 Non-pressure chronic ulcer of other part of left lower leg with other specified severity; B96.20 Unspecified Escherichia coli [E. coli] as the cause of diseases classified elsewhere
CPT/HCPCS: 96365

== ENCOUNTER 2021-03-17 11:59 | Day surgery (SDC) | payer OTHER ==
[2021-03-17] MEDS ORDERED: ERTAPENEM SODIUM 1 GM VIAL ONE (12:03)
[2021-03-17] MEDS ORDERED: SODIUM CHLORIDE 50 ML IVPB ONE (12:04)
[2021-03-17 13:11] VITALS: BP 113/54; PULSE 108; TEMP 98.4
== END 2021-03-17 14:36 | disposition home or self-care (01) ==
LOC: JINFUSION 11:59 → J7W 11:59 → JINFUSION 14:36
PROVIDERS: ATTEND Internal Medicine Infectious Disease
DX: M00.852 Arthritis due to other bacteria, left hip (principal); L97.828 Non-pressure chronic ulcer of other part of left lower leg with other specified severity; B96.20 Unspecified Escherichia coli [E. coli] as the cause of diseases classified elsewhere
CPT/HCPCS: 96365

== ENCOUNTER 2021-03-19 14:28 | Day surgery (SDC) | payer OTHER ==
[2021-03-19] MEDS ORDERED: ERTAPENEM SODIUM 1 GM in SODIUM CHLORIDE 50 ML IVPB ONE (15:00)
[2021-03-19 16:12] VITALS: TEMP 98
[2021-03-19 16:13] VITALS: BP 108/48; PULSE 92
== END 2021-03-19 16:51 | disposition home or self-care (01) ==
LOC: JINFUSION 14:28 → J7W 14:29 → JINFUSION 16:51
PROVIDERS: ATTEND Internal Medicine Infectious Disease
DX: M00.852 Arthritis due to other bacteria, left hip (principal); L97.828 Non-pressure chronic ulcer of other part of left lower leg with other specified severity; B96.20 Unspecified Escherichia coli [E. coli] as the cause of diseases classified elsewhere
CPT/HCPCS: 96365

== ENCOUNTER 2021-03-22 14:00 | Day surgery (SDC) | payer OTHER ==
[2021-03-22] MEDS ORDERED: ERTAPENEM SODIUM 1 GM in SODIUM CHLORIDE 50 ML IVPB ONE (14:15)
[2021-03-22] MEDS ORDERED: SODIUM CHLORIDE 50 ML IVPB ONE (14:17)
[2021-03-22] MEDS ORDERED: ERTAPENEM SODIUM 1 GM VIAL ONE (14:17)
[2021-03-22 15:28] VITALS: BP 130/72; PULSE 77; TEMP 98
== END 2021-03-22 15:00 | disposition home or self-care (01) ==
LOC: J7W 14:00 → JINFUSION 14:00
PROVIDERS: ATTEND Internal Medicine Infectious Disease
DX: M00.852 Arthritis due to other bacteria, left hip (principal)
CPT/HCPCS: 96365

== ENCOUNTER 2021-03-23 14:17 | Day surgery (SDC) | payer OTHER ==
[2021-03-23] MEDS ORDERED: ERTAPENEM SODIUM 1 GM VIAL ONE (14:23)
[2021-03-23] MEDS ORDERED: SODIUM CHLORIDE 50 ML IVPB ONE (14:23)
[2021-03-23 14:39] VITALS: TEMP 99.5
[2021-03-23 15:22] VITALS: BP 118/76; PULSE 98
== END 2021-03-23 15:36 | disposition home or self-care (01) ==
LOC: JINFUSION 14:17 → J7W 14:17 → JINFUSION 15:36
PROVIDERS: ATTEND Internal Medicine Infectious Disease
DX: M00.852 Arthritis due to other bacteria, left hip (principal); L97.828 Non-pressure chronic ulcer of other part of left lower leg with other specified severity; B96.20 Unspecified Escherichia coli [E. coli] as the cause of diseases classified elsewhere
CPT/HCPCS: 96365

== ENCOUNTER 2021-03-24 12:29 | Day surgery (SDC) | payer OTHER ==
[2021-03-24] MEDS ORDERED: ERTAPENEM SODIUM 1 GM VIAL ONE (12:39)
[2021-03-24] MEDS ORDERED: SODIUM CHLORIDE 50 ML IVPB ONE (12:39)
[2021-03-24 16:17] VITALS: BP 99/60; PULSE 87; TEMP 98.7
== END 2021-03-24 16:17 | disposition home or self-care (01) ==
LOC: JINFUSION 12:29 → J7W 12:30 → JINFUSION 16:17
PROVIDERS: ATTEND Internal Medicine Infectious Disease
DX: M00.852 Arthritis due to other bacteria, left hip (principal); L97.828 Non-pressure chronic ulcer of other part of left lower leg with other specified severity; B96.20 Unspecified Escherichia coli [E. coli] as the cause of diseases classified elsewhere
CPT/HCPCS: 96365

== ENCOUNTER 2021-03-25 14:56 | Day surgery (SDC) | payer OTHER ==
[2021-03-25] MEDS ORDERED: ERTAPENEM SODIUM 1 GM VIAL ONE (15:19)
[2021-03-25] MEDS ORDERED: SODIUM CHLORIDE 50 ML IVPB ONE (15:20)
[2021-03-25 15:39] VITALS: TEMP 98.7
[2021-03-25 16:19] VITALS: BP 115/60; PULSE 86
[2021-03-25 16:30] LABS: HEMATOCRIT 29.1 % (32.4-45.2); HEMOGLOBIN 9.4 GM/dL (10.7-15.3); MCHC 32.2 g/dl (32.0-36.0); MEAN CELL VOLUME 77.8 fl (80-96); MEAN PLT VOLUME 7.3 fl (7.5-11.1); PLATELET COUNT 472 10^3/uL (134-434); RBC 3.74 M/mm3 (3.60-5.2); RDW 16.4 % (11.6-15.6)
[2021-03-25 17:16] LABS: ERYTHROCYTE SEDIMENTATION RATE 102 mm/hr (0-30)
== END 2021-03-25 17:00 | disposition home or self-care (01) ==
LOC: JINFUSION 14:56 → J7W 14:57 → JINFUSION 17:00
PROVIDERS: ATTEND Internal Medicine Infectious Disease
DX: M00.852 Arthritis due to other bacteria, left hip (principal); L97.828 Non-pressure chronic ulcer of other part of left lower leg with other specified severity; B96.20 Unspecified Escherichia coli [E. coli] as the cause of diseases classified elsewhere
CPT/HCPCS: 36415; 85027; 85651; 86140; 96365

== ENCOUNTER 2021-03-26 14:37 | Day surgery (SDC) | payer OTHER ==
[2021-03-26] MEDS ORDERED: SODIUM CHLORIDE 50 ML IVPB ONE (14:48)
[2021-03-26] MEDS ORDERED: ERTAPENEM SODIUM 1 GM VIAL ONE (14:48)
[2021-03-26] MEDS ORDERED: ERTAPENEM SODIUM 1 GM in SODIUM CHLORIDE 50 ML IVPB ONE (15:00)
[2021-03-26 15:50] VITALS: BP 118/61; PULSE 83; TEMP 98.3
== END 2021-03-26 15:52 | disposition home or self-care (01) ==
LOC: JINFUSION 14:37 → J7W 14:37 → JINFUSION 15:52
PROVIDERS: ATTEND Internal Medicine Infectious Disease
DX: M00.852 Arthritis due to other bacteria, left hip (principal); L97.828 Non-pressure chronic ulcer of other part of left lower leg with other specified severity; B96.20 Unspecified Escherichia coli [E. coli] as the cause of diseases classified elsewhere
CPT/HCPCS: 96365

== ENCOUNTER 2021-03-28 14:55 | Day surgery (SDC) | payer OTHER ==
[2021-03-28] MEDS ORDERED: ERTAPENEM SODIUM 1 GM VIAL ONE (15:14)
[2021-03-28] MEDS ORDERED: SODIUM CHLORIDE 50 ML IVPB ONE (15:14)
[2021-03-28] MEDS ORDERED: ERTAPENEM SODIUM 1 GM in SODIUM CHLORIDE 50 ML IVPB ONE (15:15)
[2021-03-28 16:06] VITALS: BP 133/73; PULSE 75; TEMP 98.2
== END 2021-03-28 16:06 | disposition home or self-care (01) ==
LOC: J7W 14:55 → JINFUSION 14:55
PROVIDERS: ATTEND Internal Medicine Infectious Disease
DX: M00.852 Arthritis due to other bacteria, left hip (principal); L97.828 Non-pressure chronic ulcer of other part of left lower leg with other specified severity; B96.20 Unspecified Escherichia coli [E. coli] as the cause of diseases classified elsewhere
CPT/HCPCS: 96365

== ENCOUNTER 2021-03-29 15:43 | Day surgery (SDC) | payer OTHER ==
[2021-03-29] MEDS ORDERED: ERTAPENEM SODIUM 1 GM in SODIUM CHLORIDE 50 ML IVPB ONE (16:15)
[2021-03-29] MEDS ORDERED: ERTAPENEM SODIUM 1 GM VIAL ONE (16:47)
[2021-03-29] MEDS ORDERED: SODIUM CHLORIDE 50 ML IVPB ONE (16:47)
[2021-03-29 17:29] VITALS: BP 113/57; PULSE 80; TEMP 98.4
== END 2021-03-29 17:58 | disposition home or self-care (01) ==
LOC: JINFUSION 15:43 → J7W 15:44 → JINFUSION 17:58
PROVIDERS: ATTEND Internal Medicine Infectious Disease
DX: M00.852 Arthritis due to other bacteria, left hip (principal); L97.828 Non-pressure chronic ulcer of other part of left lower leg with other specified severity; B96.20 Unspecified Escherichia coli [E. coli] as the cause of diseases classified elsewhere
CPT/HCPCS: 96365

== ENCOUNTER 2021-03-30 13:37 | Day surgery (SDC) | payer OTHER ==
[2021-03-30] MEDS ORDERED: ERTAPENEM SODIUM 1 GM in SODIUM CHLORIDE 50 ML IVPB ONE (13:45)
[2021-03-30] MEDS ORDERED: ERTAPENEM SODIUM 1 GM VIAL ONE (13:58)
[2021-03-30] MEDS ORDERED: SODIUM CHLORIDE 50 ML IVPB ONE (13:58)
[2021-03-30 14:49] VITALS: BP 125/78; PULSE 87; TEMP 98
== END 2021-03-30 14:55 | disposition home or self-care (01) ==
LOC: JINFUSION 13:37 → J7W 13:38 → JINFUSION 14:55
PROVIDERS: ATTEND Internal Medicine Infectious Disease
DX: M00.852 Arthritis due to other bacteria, left hip (principal); L97.828 Non-pressure chronic ulcer of other part of left lower leg with other specified severity; B96.20 Unspecified Escherichia coli [E. coli] as the cause of diseases classified elsewhere
CPT/HCPCS: 96365

== ENCOUNTER 2021-04-01 13:24 | Day surgery (SDC) | payer OTHER ==
[2021-04-01] MEDS ORDERED: ERTAPENEM SODIUM 1 GM in SODIUM CHLORIDE 50 ML IVPB ONE (13:30)
[2021-04-01] MEDS ORDERED: ERTAPENEM SODIUM 1 GM VIAL ONE (13:46)
[2021-04-01] MEDS ORDERED: SODIUM CHLORIDE 50 ML IVPB ONE (13:46)
[2021-04-01 14:23] VITALS: BP 139/71; PULSE 92; TEMP 98.5
[2021-04-01 14:49] LABS: HEMATOCRIT 29.7 % (32.4-45.2); HEMOGLOBIN 9.5 GM/dL (10.7-15.3); MCH 24.9 pg (25.7-33.7); MCHC 32.1 g/dl (32.0-36.0); MEAN CELL VOLUME 77.6 fl (80-96); MEAN PLT VOLUME 7.5 fl (7.5-11.1); PLATELET COUNT 402 10^3/uL (134-434); RBC 3.83 M/mm3 (3.60-5.2); RDW 16.5 % (11.6-15.6); WHITE BLOOD COUNT 12.4 K/mm3 (4.0-10.0)
[2021-04-01 15:31] LABS: ERYTHROCYTE SEDIMENTATION RATE 97 mm/hr (0-30)
== END 2021-04-01 14:35 | disposition home or self-care (01) ==
LOC: JINFUSION 13:24 → J7W 13:24 → JINFUSION 14:35
PROVIDERS: ATTEND Internal Medicine Infectious Disease
DX: M00.852 Arthritis due to other bacteria, left hip (principal); L97.828 Non-pressure chronic ulcer of other part of left lower leg with other specified severity; B96.20 Unspecified Escherichia coli [E. coli] as the cause of diseases classified elsewhere
CPT/HCPCS: 36415; 85027; 85651; 86140; 96365

== ENCOUNTER 2021-04-02 15:01 | Day surgery (SDC) | payer OTHER ==
[2021-04-02] MEDS ORDERED: ERTAPENEM SODIUM 1 GM in SODIUM CHLORIDE 50 ML IVPB ONE (15:30)
[2021-04-02] MEDS ORDERED: SODIUM CHLORIDE 50 ML IVPB ONE (15:37)
[2021-04-02] MEDS ORDERED: ERTAPENEM SODIUM 1 GM VIAL ONE (15:37)
[2021-04-02 20:20] VITALS: BP 100/50; PULSE 86
== END 2021-04-02 20:20 | disposition home or self-care (01) ==
LOC: JINFUSION 15:01 → J7W 15:02 → JINFUSION 20:20
PROVIDERS: ATTEND Internal Medicine Infectious Disease
DX: M00.852 Arthritis due to other bacteria, left hip (principal); L97.828 Non-pressure chronic ulcer of other part of left lower leg with other specified severity; B96.20 Unspecified Escherichia coli [E. coli] as the cause of diseases classified elsewhere
CPT/HCPCS: 96365

== ENCOUNTER 2021-04-04 14:26 | Day surgery (SDC) | payer OTHER ==
[2021-04-04] MEDS ORDERED: ERTAPENEM SODIUM 1 GM in SODIUM CHLORIDE 50 ML IVPB ONE (14:45)
[2021-04-04] MEDS ORDERED: SODIUM CHLORIDE 50 ML IVPB ONE (14:47)
[2021-04-04] MEDS ORDERED: ERTAPENEM SODIUM 1 GM VIAL ONE (14:47)
[2021-04-04 16:11] VITALS: TEMP 98.8
[2021-04-04 16:13] VITALS: BP 101/56; PULSE 86
== END 2021-04-04 15:45 | disposition home or self-care (01) ==
LOC: JINFUSION 14:26 → J7W 14:27 → JINFUSION 15:45
PROVIDERS: ATTEND Internal Medicine Infectious Disease
DX: M00.852 Arthritis due to other bacteria, left hip (principal); L97.828 Non-pressure chronic ulcer of other part of left lower leg with other specified severity; B96.20 Unspecified Escherichia coli [E. coli] as the cause of diseases classified elsewhere
CPT/HCPCS: 96365; 96367

== ENCOUNTER 2021-04-05 17:06 | Day surgery (SDC) | payer OTHER ==
[2021-04-05] MEDS ORDERED: ERTAPENEM SODIUM 1 GM VIAL ONE (17:37)
[2021-04-05] MEDS ORDERED: SODIUM CHLORIDE 50 ML IVPB ONE (17:38)
[2021-04-05] MEDS ORDERED: ERTAPENEM SODIUM 1 GM in SODIUM CHLORIDE 50 ML IVPB ONE (17:45)
[2021-04-05 17:47] VITALS: BP 116/63; PULSE 89; TEMP 98.4
== END 2021-04-05 18:20 | disposition home or self-care (01) ==
LOC: JINFUSION 17:06 → J7W 17:09 → JINFUSION 18:20
PROVIDERS: ATTEND Internal Medicine Infectious Disease
DX: M00.852 Arthritis due to other bacteria, left hip (principal); B96.20 Unspecified Escherichia coli [E. coli] as the cause of diseases classified elsewhere
CPT/HCPCS: 96365

== ENCOUNTER 2021-04-06 15:26 | Day surgery (SDC) | payer OTHER ==
[2021-04-06] MEDS ORDERED: SODIUM CHLORIDE 50 ML IVPB ONE (15:50)
[2021-04-06] MEDS ORDERED: ERTAPENEM SODIUM 1 GM VIAL ONE (15:50)
[2021-04-06] MEDS ORDERED: ERTAPENEM SODIUM 1 GM in SODIUM CHLORIDE 50 ML IVPB ONE (16:00)
[2021-04-06 17:05] VITALS: BP 114/71; PULSE 71; TEMP 98.1
== END 2021-04-06 17:05 | disposition home or self-care (01) ==
LOC: JINFUSION 15:26 → J7W 15:37 → JINFUSION 17:05
PROVIDERS: ATTEND Internal Medicine Infectious Disease
DX: M00.852 Arthritis due to other bacteria, left hip (principal); L97.828 Non-pressure chronic ulcer of other part of left lower leg with other specified severity; B96.20 Unspecified Escherichia coli [E. coli] as the cause of diseases classified elsewhere
CPT/HCPCS: 96365

== ENCOUNTER 2021-04-08 16:38 | Day surgery (SDC) | payer OTHER ==
[2021-04-08] MEDS ORDERED: SODIUM CHLORIDE 50 ML IVPB ONE (17:10)
[2021-04-08] MEDS ORDERED: ERTAPENEM SODIUM 1 GM VIAL ONE (17:10)
[2021-04-08] MEDS ORDERED: ERTAPENEM SODIUM 1 GM in SODIUM CHLORIDE 50 ML IVPB ONE (17:15)
[2021-04-08 18:10] VITALS: BP 133/71; PULSE 78; TEMP 98
== END 2021-04-08 18:12 | disposition home or self-care (01) ==
LOC: JINFUSION 16:38 → J7W 16:39 → JINFUSION 18:12
PROVIDERS: ATTEND Internal Medicine Infectious Disease
DX: M00.852 Arthritis due to other bacteria, left hip (principal); L97.828 Non-pressure chronic ulcer of other part of left lower leg with other specified severity; B96.20 Unspecified Escherichia coli [E. coli] as the cause of diseases classified elsewhere
CPT/HCPCS: 96365

== ENCOUNTER 2021-04-10 13:39 | Day surgery (SDC) | payer OTHER ==
[2021-04-10] MEDS ORDERED: SODIUM CHLORIDE 50 ML IVPB ONE (13:59)
[2021-04-10] MEDS ORDERED: ERTAPENEM SODIUM 1 GM VIAL ONE (13:59)
[2021-04-10] MEDS ORDERED: ERTAPENEM SODIUM 1 GM in SODIUM CHLORIDE 50 ML IVPB ONE (14:00)
[2021-04-10 14:06] VITALS: BP 153/81; PULSE 105; TEMP 98.8
== END 2021-04-10 14:35 | disposition home or self-care (01) ==
LOC: JINFUSION 13:39 → J7W 13:50 → JINFUSION 14:35
PROVIDERS: ATTEND Internal Medicine Infectious Disease
DX: M00.852 Arthritis due to other bacteria, left hip (principal); L97.828 Non-pressure chronic ulcer of other part of left lower leg with other specified severity; B96.20 Unspecified Escherichia coli [E. coli] as the cause of diseases classified elsewhere
CPT/HCPCS: 96365

== ENCOUNTER → 2021-04-16 | Day surgery (SDC) | payer OTHER | END | disposition home or self-care (01) | LOC: JRADIR 12:08 | PROVIDERS: ATTEND Internal Medicine Infectious Disease | PROC: 02PY03Z Removal of Infusion Device from Great Vessel, Open Approach (ICD-10-PCS; principal; 2021-04-16) | DX: Z45.2 Encounter for adjustment and management of vascular access device (principal) | CPT/HCPCS: 36589 ==